=== PATIENT | female | born 1945 | race Caucasian/White ===

== ENCOUNTER → 2019-06-01 14:50 | Outpatient (BNVA) | payer MEDICARE, OTHER, SELFPAY | PROVIDERS: Family Provider Family Medicine; PCP Family Medicine; Visit Provider Psychiatry & Neurology Psychiatry | DX: F31.81 Bipolar II disorder (principal) | CPT/HCPCS: 99213 ==

== ENCOUNTER → 2019-06-21 16:20 | Outpatient (BNVA) | payer MEDICARE, OTHER, SELFPAY | PROVIDERS: Family Provider Family Medicine; PCP Family Medicine; Visit Provider Urology | DX: N39.0 Urinary tract infection, site not specified (principal) | CPT/HCPCS: 81001; 87086 ==

== ENCOUNTER 2019-08-09 14:04 | Outpatient (CLI) | payer MEDICARE, OTHER, SELFPAY ==
--- NOTE | 2019-08-09 15:00 | US_ITS ---
WS: [id number] RENAL ULTRASOUND REASON FOR EXAM: Gross hematuria TECHNIQUE: Grayscale and Doppler ultrasound examination of the kidneys. FINDINGS: Right kidney: Right kidney measures 11.1 cm x 6.3 cm x 5.6 cm. Cortex measured 1.73 cm Left kidney: Left kidney measures 10.5 cm x 5.3 cm x 5.9 cm. Cortex 1.86 cm The bladder show no gross abnormalities but was poorly distended. US/US renal BI* [id number] IMPRESSION: Normal kidneys and bladder.
== END 2019-08-09 14:05 | disposition home or self-care (01) ==
LOC: US 14:04
PROVIDERS: Family Provider Family Medicine; PCP Family Medicine; Visit Provider Urology
DX: R31.0 Gross hematuria (principal)
CPT/HCPCS: 76770; 81001

== ENCOUNTER 2019-08-10 03:45 | Emergency (ER) | payer MEDICARE, OTHER, SELFPAY ==
[2019-08-10 04:00] VITALS: BP 192/50; PULSE 62; RESP 18; TEMP 36.7; O2SAT 95; BMI 31.6
[2019-08-10 04:09] VITALS: PULSE 65
--- NOTE | 2019-08-10 04:12 | ED_ITS ---
Entered by Tamica Longoria, acting as scribe for Maximiliano Morris DO Aug 10, 2019 03:45 HPI - Extremity Problem General: Chief complaint: Extremity Injury, Lower Stated complaint: R LEG/HIP PAIN Time Seen by Provider: 08/10/19 04:12 Source: patient Mode of arrival: wheelchair Limitations: no limitations History of Present Illness: HPI Narrative: 74 yo f came to the er pov for right hip pain and right leg pain. Onset was last night. Pt said that she has had a hip replacement on both. Pt said that she has been doing therepy, she states that she twisted or pulled something. Pt said that she took a hydro @ 0200 this morning and that this happened about 2029 last night. Pt had the hip replacement about 2 years ago. MD Complaint: extremity pain Pain Consistency: constant Location: right Quality: stabbing Relieving factors: nothing Exacerbating factors: nothing, weight bearing and walking Associated symptoms: Reports no associated symptoms; Deny chest pain, fever(s) or rash Review of Systems General: Reports: other (negative unless marked) Const: Denies: fever Eyes: Denies: change in vision ENMT: Denies: throat pain Card: Denies: chest pain Resp: Denies: shortness of breath GI: Denies: abdominal pain or nausea : Denies: flank pain Musc: Denies: neck pain or back pain Skin/Breast: Denies: rash Neuro: Denies: headache Psych: Denies: anxiety Endo: Denies: excessive urination Gael/Lymph: Denies: easy bruising PFSH ED PFSH: Medical History (Updated 08/10/19 @ 04:46 by Maximiliano Morris DO) Acute cystitis Anemia, chronic disease Atherosclerotic heart disease of [place] coronary artery without angina pectoris Benign essential hypertension with target blood pressure below 140/90 Bipolar II disorder Dyslipidemia (high LDL; low HDL) Gross hematuria Heart palpitations Recurrent UTI Status post left heart catheterization Surgical History History of right knee surgery S/P appendectomy S/P hernia repair S/P hip replacement S/P hysterectomy Social History Smoking and tobacco status: never smoked Alcohol intake: never Adopted: No Caregiver/support person: No Lives independently: No Household members: spouse Marital status: Current occupational status: retired History of recent travel: No Physical Exam Const: COMMON NORMALS: no apparent distress GENERAL APPEARANCE: cooperative and comfortable ORIENTATION/CONSCIOUSNESS: Yes awake, Yes oriented to person, Yes oriented to place and Yes oriented to time HENMT: COMMON NORMALS: normocephalic, head/scalp atraumatic, hearing grossly normal bilaterally, external ears normal, EAC's normal, TM's normal bilaterally, nasal mucous membranes and turbinates normal, moist oral mucous membranes and oropharynx normal HEAD & SCALP: normocephalic and atraumatic NOSE: nasal mucous membranes and turbinates normal EXTERNAL EAR: Yes external ears normal EXTERNAL AUDITORY CANAL: EAC's normal TYMPANIC MEMBRANE: TM's normal bilaterally Eye: COMMON NORMALS: PERRL, EOMs intact bilaterally, conjunctivae normal and no scleral icterus CONJUNCTIVA: Yes conjunctivae normal PUPIL: Yes PERRL Neck/C-Spine: COMMON NORMALS: full ROM, no lymphadenopathy, supple and no JVD Lymph: LYMPHATIC: no lymphadenopathy noted and no lymphedema noted Resp: COMMON NORMALS: normal respiratory effort, no retractions, no use of accessory muscles and clear to auscultation bilaterally AUSCULTATION: clear to auscultation bilaterally Cardio: COMMON NORMALS: no JVD, regular rate, regular rhythm and no murmurs RATE: regular rate RHYTHM: regular rhythm GI: COMMON NORMALS: soft to palpation and no hepatosplenomegaly AUSCULTATION: Yes normoactive bowel sounds PALPATION: Yes soft, No tender, No guarding and Yes no hepatosplenomegaly Extremity: COMMON NORMALS: normal to inspection, normal capillary refill, no clubbing, cyanosis or edema, no calf tenderness and no pedal edema Neuro: SENSORIUM/ORIENTATION: Yes oriented to person, Yes oriented to place and Yes oriented to time Skin: COMMON NORMALS: no rashes or lesions noted GENERAL SKIN EXAM: no rashes or lesions noted Course Vital Signs: Vital signs: Vital Signs Temperature 98.1 F 08/10/19 04:00 Pulse Rate 57 L 08/10/19 05:12 Respiratory Rate 18 08/10/19 05:12 Blood Pressure 187/59 08/10/19 05:12 Pulse Oximetry 96 08/10/19 05:12 MDM - Extremity (Nontraumatic) MDM Narrative: Medical decision making narrative: X-ray reviewed with patient. No evidence of fracture. Will discharge home follow-up Imaging Data^: Xray Ortho: Radiologist's impression: XR hip RT 2-3V wo/w pel* [id number] REASON FOR EXAM: pain FINDINGS: Total hip replacement on the right side the prosthesis in stem are seen in good position. The ilium, ischium, and pubis were normal. XR/XR hip RT 2-3V wo/w pel* [id number] IMPRESSION: Total hip replacement on the right satisfactory alignment. Dictated By:Declan Del Toro DO Discharge Plan Discharge Patient Disposition: Home, Self-Care Clinical Impression: Acute hip pain Condition: Stable Prescriptions: No Action omeprazole 40 mg capsule,delayed release(DR/EC) 40 mg PO BID RF: 0 ascorbic acid (vitamin C) 250 mg tablet 1 gm PO DAILY RF: 0 furosemide [Lasix] 20 mg tablet 20 mg PO QAM RF: 0 Tresiba FlexTouch U-100 100 unit/mL (3 mL) insulin pen 30 unit SUBCUT BID RF: 0 ondansetron HCl [Zofran] 4 mg tablet 4 mg PO ONCE PRN (Reason: nausea and vomiting) RF: 0 dicyclomine 10 mg capsule 10 mg PO QID RF: 0 metoprolol tartrate 25 mg tablet 25 mg PO BID RF: 0 Senokot Extra Strength 17.2 mg tablet 17.2 mg PO BID RF: 0 aspirin [Aspir-81] 81 mg tablet,delayed release (DR/EC) 81 mg PO DAILY RF: 0 cholecalciferol (vitamin D3) 1,000 unit capsule 1,000 unit PO DAILY RF: 0 clopidogrel [Plavix] 75 mg tablet 75 mg PO DAILY RF: 0 cranberry 500 mg capsule 500 mg PO DAILY RF: 0 docusate sodium [Colace] 100 mg capsule 100 mg PO DAILY RF: 0 isosorbide dinitrate 40 mg tablet 60 mg PO BID RF: 0 Lactobacillus acidophilus [Acidophilus] Capsule 100 mmu cells PO DAILY RF: 0 loratadine [Allergy Relief (loratadine)] 10 mg tablet 10 mg PO DAILY RF: 0 losartan 25 mg tablet 25 mg PO DAILY RF: 0 magnesium oxide 400 mg (241.3 mg magnesium) tablet 400 mg PO DAILY RF: 0 potassium chloride [Klor-Con 10] 10 mEq tablet extended release 10 meq PO DAILY RF: 0 vitamin E mixed 1,000 unit capsule 1,000 unit PO DAILY RF: 0 risperidone [Risperdal] 1 mg tablet 1 mg PO BID Qty: 60 RF: 2 citalopram 40 mg tablet 40 mg PO ONCE Qty: 30 RF: 5 ferrous sulfate 325 mg (65 mg iron) tablet 325 mg PO QDAY RF: 0 ciprofloxacin HCl 500 mg tablet 500 mg PO BID Qty: 20 RF: 0 atorvastatin [Lipitor] 40 mg tablet 40 mg PO DAILY Qty: 90 RF: 3 Referrals: Arabella Orta MD [Primary Care Provider] - Discharge Diet: Usual diet Discharge Activity: Increase activity as tolerated Activity Restrictions/Additional Instructions: Activity as tolerated. Follow-up with your primary care doctor for referral to orthopedics. Use previously prescribed pain medications. Discharge Date/Time: 08/10/19 05:14 Coding Level of Care Code ED Handle Assembler for g Fwd Exam Comprehensive The documentation recorded by the Von maciel Stephanie Lyn, accurately reflects the service I personally performed and the decisions made by Arturo andrade Curtis L, DO Aug 10, 2019 03:45
--- NOTE | 2019-08-10 04:18 | XR_ITS ---
WS: [id number] XR hip RT 2-3V wo/w pel* [id number] REASON FOR EXAM: pain FINDINGS: Total hip replacement on the right side the prosthesis in stem are seen in good position. The ilium, ischium, and pubis were normal. XR/XR hip RT 2-3V wo/w pel* [id number] IMPRESSION: Total hip replacement on the right satisfactory alignment.
[2019-08-10 05:12] VITALS: BP 187/59; PULSE 57; RESP 18; O2SAT 96
== END 2019-08-10 05:14 | disposition home or self-care (01) ==
PROVIDERS: Emergency Provider Family Medicine; Family Provider Family Medicine; PCP Family Medicine
DX: M79.604 Pain in right leg (principal); I25.10 Atherosclerotic heart disease of native coronary artery without angina pectoris; I10 Essential (primary) hypertension; E78.5 Hyperlipidemia, unspecified; Z96.641 Presence of right artificial hip joint; Z96.642 Presence of left artificial hip joint; Z79.82 Long term (current) use of aspirin
CPT/HCPCS: 12345; 73502; 99281; 99282

== ENCOUNTER → 2019-08-24 07:08 | Outpatient (BNVA) | payer MEDICARE, OTHER, SELFPAY | PROVIDERS: Family Provider Family Medicine; PCP Family Medicine; Visit Provider Psychiatry & Neurology Psychiatry | DX: F31.81 Bipolar II disorder (principal) | CPT/HCPCS: 99213 ==

== ENCOUNTER → 2019-10-26 08:10 | Outpatient (BNVA) | payer MEDICARE, OTHER, SELFPAY | PROVIDERS: Family Provider Family Medicine; PCP Family Medicine; Visit Provider Psychiatry & Neurology Psychiatry | DX: F31.81 Bipolar II disorder (principal) | CPT/HCPCS: 99213 ==

== ENCOUNTER → 2019-11-15 14:55 | Outpatient (BNVA) | payer MEDICARE, OTHER, SELFPAY | PROVIDERS: Family Provider Family Medicine; PCP Family Medicine; Visit Provider Internal Medicine Cardiovascular Disease | DX: D63.8 Anemia in other chronic diseases classified elsewhere (principal); Z79.01 Long term (current) use of anticoagulants; R07.89 Other chest pain; I25.10 Atherosclerotic heart disease of native coronary artery without angina pectoris; R00.2 Palpitations | CPT/HCPCS: 80048; 85025 ==

== ENCOUNTER 2019-11-27 12:42 | Outpatient (CLI) | payer MEDICARE, OTHER, SELFPAY ==
--- NOTE | 2019-11-27 12:59 | MR_ITS ---
WS: [id number] MRI BRAIN WITH AND WITHOUT CONTRAST HISTORY: BENIGN NEOPLASM OF CEREBRAL MENINGES COMPARISON: 12/06/2018, 11/25/2017 and 11/18/2016 TECHNIQUE: Multiplanar imaging performed through the brain with Prohance 17 ml's IV. No acute infarcts are seen. Cooper-white matter differentiation is well preserved. No susceptibility artifacts or prior lacunar infarcts. Ventricles and extra-axial spaces are normal. Clivus and pituitary gland are normal. Visualized posterior fossa and brainstem are also normal. Intensely enhancing mass involving the dura of the inferior RIGHT frontal region. Nodule measures 6 x 5 mm with a dural tail. There is no adjacent edema. No enlargement. No additional masses. Dural venous sinuses are normal. Paranasal sinuses: Well aerated with no significant disease. Mastoid air cells: Normal. Calvarium and scalp: Normal. MR/MR head wo/w con [id number] IMPRESSION: 1. 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 Long-ter m stability. 2. No additional masses. 3. No significant chronic white matter disease.
== END 2019-11-27 12:43 | disposition home or self-care (01) ==
LOC: RADSHAW 12:47
PROVIDERS: Family Provider Family Medicine; PCP Family Medicine; Visit Provider Specialist
DX: D32.0 Benign neoplasm of cerebral meninges (principal)
CPT/HCPCS: 70553; A9579

== ENCOUNTER 2019-12-05 08:04 | Outpatient (CLI) | payer MEDICARE, OTHER, SELFPAY ==
--- NOTE | 2019-12-05 08:18 | ECG_ITS ---
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 Interpretive Statements NAME OF STUDY: LEXISCAN SESTAMIBI STRESS TEST INDICATION: Palpitations, PROCEDURE: At the baseline, the EKG revealed possible sinus bradycardia with a rate of 56/min. Because of the heavy baseline artifacts, further interpretation is not possible. The baseline blood pressure was 137/67 mm Hg with a heart rate of 56 beats/min. Lexiscan was infused over a period of 20 seconds. A total of 0.4 milligrams of Lexiscan was infused. The stress phase was continued for a total of 5 minutes. Heart rate at the end of the stress phase was 70 with a blood pressure 158/55. The EKG at the peak infusion revealed no significant changes. Sestamibi was injected 20 seconds after the Lexiscan infusion. Blood pressure at the end of the recovery phase was 145/99 with a heart rate of 69 per minute. CONCLUSION: 1. No significant EKG changes with the LexiScan infusion 2. No LexiScan induced chest pain or cardiac arrhythmia 3. Normal blood pressure and heart rate response 4. Sestamibi/sestamibi perfusion scan pending; see separate report. Electronically Signed On 12-08-2019 11:16:27 CDT by Gilma Cai M.D. [id number]
--- NOTE | 2019-12-05 08:18 | NMCV_ITS ---
NM bryon perf SPECT r/s* [id number] Brandi Berg Age: 74 Gender: F : 1945 Exam Date: 12/05/2019 09:13 Ordering Phys: Gilma Cai MD ([email or web address]) Technologist: VIDHI Stone Exam Location: [facility] Indications: PALPITATIONS STRESS TEST Please see separate stress test report in [facility] for full findings IMAGE PROTOCOL Rest/Stress 1 Lexiscan Day Radiopharmaceutical Dose (mCi) Administration Site Administered by Rest: Tc-99m 11.0 IV VIDHI Sandra Sestamibi Stress:Tc-99m 32.5 IV VIDHI Sandra Sestamibi Rest: 05-Dec-2019 60 Discovery 630 Stress: 05-Dec-2019 30 Discovery 630 0.4mg Lexiscan. Supine position only as patient was unable to lay prone. SPECT RESULTS Technical Quality: Good Raw Data Analysis: Breast attenuation, Subdiaphragmatic activity Image Corrections: No attenuation or motion correction applied Summed Stress Score: 1 Summed Rest Score: 2 Summed Difference Score: 0 PERFUSION FINDINGS Patchy areas of slightly decreased tracer uptake were noted in the anterior wall and inferior wall regions. No significant reversibility was noted in these regions. FUNCTIONAL RESULTS (calculated via Gated SPECT) Stress Image LV EF (%): 60 Stress EDV (mL):98 TID: 0.97 Stress ESV (mL):39 FUNCTIONAL FINDINGS: Segmental wall motion analysis revealed no gross wall motion abnormalities. IMPRESSIONS 1. Myocardial perfusion imaging revealing patchy areas of persistent decreased uptake in the anterior wall and inferior wall regions, suggestive of myocardial scarring versus attenuation artifact. 2. Normal LV ejection fraction of 60%. 3. LV wall motion analysis revealing no gross wall motion normalities. 4. Normal LV volume. No significant coronary ischemia, based on the above findings Dr Gilma Cai MD [facility] (Electronically Signed) Final Date: 05 December 2019 16:12 S
[2019-12-05 08:31] VITALS: BMI 33.1
[2019-12-05] MEDS: regadenoson 0.4 Mg/5 ml Syringe IVP (09:59)
[2019-12-05 10:15] VITALS: BP 152/52; PULSE 68
== END 2019-12-05 08:05 | disposition home or self-care (01) ==
LOC: CDL 08:05
PROVIDERS: Family Provider Family Medicine; PCP Family Medicine; Visit Provider Internal Medicine Cardiovascular Disease
DX: R00.2 Palpitations (principal); I25.10 Atherosclerotic heart disease of native coronary artery without angina pectoris
CPT/HCPCS: 78452; 93017; A9500; J2785

== ENCOUNTER 2019-12-26 13:44 | Outpatient (CLI) | payer MEDICARE, OTHER, SELFPAY ==
--- NOTE | 2019-12-26 13:53 | MM_ITS ---
WS: [id number] BILATERAL SCREENING DIGITAL MAMMOGRAM WITH CAD HISTORY: SCREENING COMPARISON: 11/15/2018 and 11/02/2017 Bilateral CC and MLO views submitted. Computer aided detection analyzed. Breast composition: There are scattered areas of fibroglandular density. No suspicious masses, microc alcifications or architectural distortion. Bilateral vascular calcifications. MM/[place] [id number] IMPRESSION: BI-RADS: 2-Benign FOLLOW UP: 1 Year Follow-up
== END 2019-12-26 13:45 | disposition home or self-care (01) ==
LOC: RADSHAW 13:51
PROVIDERS: PCP Family Medicine; Visit Provider Family Medicine
DX: Z12.31 Encounter for screening mammogram for malignant neoplasm of breast (principal)
CPT/HCPCS: 77067

== ENCOUNTER → 2020-01-03 13:47 | Outpatient (BNVA) | payer MEDICARE, OTHER, SELFPAY | PROVIDERS: PCP Family Medicine; Visit Provider Licensed Practical Nurse | DX: M51.17 Intervertebral disc disorders with radiculopathy, lumbosacral region (principal); G62.89 Other specified polyneuropathies; D32.0 Benign neoplasm of cerebral meninges | CPT/HCPCS: 99214 ==

== ENCOUNTER → 2020-01-18 08:14 | Outpatient (BNVA) | payer MEDICARE, OTHER, SELFPAY | PROVIDERS: PCP Family Medicine; Visit Provider Psychiatry & Neurology Psychiatry | DX: F31.81 Bipolar II disorder (principal); F33.2 Major depressive disorder, recurrent severe without psychotic features | CPT/HCPCS: 99213 ==

== ENCOUNTER → 2020-02-13 15:47 | Outpatient (BNVA) | payer MEDICARE, OTHER, SELFPAY | PROVIDERS: PCP Family Medicine; Visit Provider Nurse Practitioner Family | DX: N39.0 Urinary tract infection, site not specified (principal) | CPT/HCPCS: 80053; 81001; 87086; 87186 ==

== ENCOUNTER → 2020-02-22 07:36 | Outpatient (BNVA) | payer MEDICARE, OTHER, SELFPAY | PROVIDERS: PCP Family Medicine; Visit Provider Psychiatry & Neurology Psychiatry | DX: F31.81 Bipolar II disorder (principal) | CPT/HCPCS: 99214 ==

== ENCOUNTER → 2020-03-14 08:32 | Outpatient (BNVA) | payer MEDICARE, OTHER, SELFPAY | PROVIDERS: PCP Family Medicine; Visit Provider Psychiatry & Neurology Psychiatry | DX: F31.81 Bipolar II disorder (principal); G25.89 Other specified extrapyramidal and movement disorders; T50.905A Adverse effect of unspecified drugs, medicaments and biological substances, initial encounter | CPT/HCPCS: 99213 ==

== ENCOUNTER → 2020-03-21 09:21 | Outpatient (BNVA) | payer MEDICARE, OTHER, SELFPAY | PROVIDERS: PCP Family Medicine; Visit Provider Psychiatry & Neurology Psychiatry | DX: F31.81 Bipolar II disorder (principal); G25.89 Other specified extrapyramidal and movement disorders; T50.905A Adverse effect of unspecified drugs, medicaments and biological substances, initial encounter | CPT/HCPCS: 99213 ==

== ENCOUNTER 2020-03-25 00:58 | Emergency (ER) | payer MEDICARE, OTHER, SELFPAY ==
[2020-03-25] VITALS (7 sets, daily range): BP systolic 154–217; BP diastolic 59–75; PULSE 62–87; RESP 17–20; TEMP 37.3; O2SAT 94–99; BMI 32.4
--- NOTE | 2020-03-25 01:05 | CTR_ITS ---
PROCEDURE INFORMATION: Exam: CT Head Without Contrast Exam date and time: 03/25/2020 1:14 AM Age: 74 years old Clinical indication: Injury or trauma; Fall; Blunt trauma (contusions or hematomas); Without loss of consciousness TECHNIQUE: Imaging protocol: Computed tomography of the head without contrast. Radiation optimization: All CT scans at this facility use at least one of these dose optimization techniques: automated exposure control; mA and/or kV adjustment per patient size (includes targeted exams where dose is matched to clinical indication); or iterative reconstruction. COMPARISON: MR head wo/w con [id number] 11/27/2019 1:31 PM RADIATION DOSE METRICS: Total DLP (mGy-cm): 729.4 FINDINGS: Brain: Normal. No hemorrhage. Unremarkable white matter. No mass effect. Cerebral ventricles: No ventriculomegaly. Bones/joints: Unremarkable. No acute fracture. Paranasal sinuses: Visualized sinuses are unremarkable. No fluid levels. Mastoid air cells: Visualized mastoid air cells are well aerated. Soft tissues: Unremarkable. CT/CT head wo con* [id number] IMPRESSION: No acute intracranial abnormality. Radiation Dose CTDIVOL = (mGy): DLP = 729.4 (mGy-cm)
--- NOTE | 2020-03-25 01:05 | CTR_ITS ---
PROCEDURE INFORMATION: Exam: CT Thoracic Spine Without Contrast Exam date and time: 03/25/2020 1:14 AM Age: 74 years old Clinical indication: Injury or trauma; Fall; Blunt trauma (contusions or hematomas) TECHNIQUE: Imaging protocol: Computed tomography images of the thoracic spine without contrast. Radiation optimization: All CT scans at this facility use at least one of these dose optimization techniques: automated exposure control; mA and/or kV adjustment per patient size (includes targeted exams where dose is matched to clinical indication); or iterative reconstruction. COMPARISON: No relevant prior studies available. RADIATION DOSE METRICS: Total DLP (mGy-cm): 1965.81 FINDINGS: Vertebrae: No acute fracture. Normal alignment. Discs/Spinal canal/Neural foramina: There is a diffuse loss of disc height seen within the thoracic spine compatible with degenerative disc disease. Soft tissues: Unremarkable. CT/CT thoracic spin wo con* [id number] IMPRESSION: There are no acute osseous findings. Radiation Dose CTDIVOL = (mGy): DLP = 1965.81 (mGy-cm)
--- NOTE | 2020-03-25 01:05 | CTR_ITS ---
PROCEDURE INFORMATION: Exam: CT Cervical Spine Without Contrast Exam date and time: 03/25/2020 1:14 AM Age: 74 years old Clinical indication: Injury or trauma; Fall; Blunt trauma TECHNIQUE: Imaging protocol: Computed tomography images of the cervical spine without contrast. Radiation optimization: All CT scans at this facility use at least one of these dose optimization techniques: automated exposure control; mA and/or kV adjustment per patient size (includes targeted exams where dose is matched to clinical indication); or iterative reconstruction. COMPARISON: US Soft Tissue Head Neck [id number] 07/01/2018 4:38 PM RADIATION DOSE METRICS: Total DLP (mGy-cm): 631.52 FINDINGS: Vertebrae: No acute fracture. Normal alignment. Osteophytes are seen at multiple levels. The disc height at C6-C7 is reduced. Soft tissues: Unremarkable. Lungs: Lung apices are normal. CT/CT cervical spin wo con* [id number] IMPRESSION: No acute findings. Multilevel degenerative changes are present. Radiation Dose CTDIVOL = (mGy): DLP = 631.52 (mGy-cm)
[2020-03-25] MEDS: fentaNYL 50 mcg/mL INJ 2mL 100 MCG IVP (01:45)
--- NOTE | 2020-03-25 02:56 | W.ED.FALL ---
HPI - Fall General: Chief Complaint: Fall Stated Complaint: FALL WITH BACK PAIN Time Seen by Provider: 03/25/20 01:00 History of Present Illness: HPI Narrative: 74-year-old lady presents with a mechanical fall at home causing back pain. She complains mainly of midthoracic pain, with some neck and head pain. She states that she turned around quickly, and fell back, sitting down, and falling back against a chair. This was evidently from a standing position. She remembers the entire event. No vomiting. She does complain of mild headache. The fall evidently happened around 7 PM. MD complaint: fall Onset (ago): hour(s) Fall from: standing Fall witnessed: yes, by family Place fall occurred: home Loss of consciousness: None Prolonged down time: no Symptoms prior to fall: none Context: tripped/slipped Location of injury: head, neck and back Severity: severe Quality: spasming Associated symptoms-after fall: Reports headache(s); Denies abdominal pain, chest pain, confusion, lightheadedness or short of breath Review of Systems Const: Denies: fever(s) or chills Card: Denies: chest pain or lightheadedness GI: Denies: abdominal pain Neuro: Reports: headache(s); Denies: confusion PFSH ED PFSH: Medical History (Updated 03/25/20 @ 03:26 by Monty Briseno DO) Acute cystitis Anemia, chronic disease 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 Left axis deviation. Normal MS and QRS duration. Intervertebral disc disorder with radiculopathy of lumbosacral region Recurrent UTI Status post left heart catheterization Surgical History History of coronary artery stent placement History of right knee surgery S/P appendectomy S/P hernia repair S/P hip replacement S/P hysterectomy Family History Family/Other Diabetes Other Cancer Social History Smoking and tobacco status: never smoked Alcohol intake: never Household members: spouse Marital status: Current occupational status: retired History of recent travel: No Physical Exam Const: GENERAL APPEARANCE: well developed ORIENTATION/CONSCIOUSNESS: Yes oriented to person, Yes oriented to place and Yes oriented to time HENMT: COMMON NORMALS: normocephalic, external ears normal and Normal external nose present HEAD & SCALP: normocephalic FACE & SINUS: normal facial exam NOSE: Normal external nose present and No nasal discharge present EXTERNAL EAR: Yes external ears normal MOUTH: tongue normal TEETH & GINGIVA: no abnormal tooth and associated gingiva THROAT: posterior oropharynx normal; no peritonsillar mass Eye: COMMON NORMALS: Equal, round and reactive pupils present, EOMs intact bilaterally and conjunctivae normal EYELID: eyelids normal CONJUNCTIVA: Yes conjunctivae normal PUPIL: Yes Equal, round and reactive pupils present Neck/C-Spine: GENERAL: No tracheal deviation CERVICAL SPINE: Yes normal cervical lordosis and Yes Cervical spine tenderness Chest: COMMONS NORMALS: normal inspection of the chest CHEST: No tenderness Resp: COMMON NORMALS: clear to auscultation bilaterally EFFORT & INSPECTION: No tachypneic, No respiratory distress, No retractions, No uses accessory muscles and No tracheal deviation AUSCULTATION: clear to auscultation bilaterally, no rhonchi, no wheezes and lung sounds not diminished Cardio: COMMON NORMALS: regular rate and regular rhythm RATE: regular rate RHYTHM: regular rhythm HEART SOUNDS: no murmurs PERIPHERAL PULSES: radial pulses present GI: INSPECTION: No abdominal distension AUSCULTATION: No Hyperactive bowel sounds present and No Hypoactive bowel sounds present PALPATION: No Guarding due to palpation present (GI) and No Rigid due to palpation PERCUSSION: no dullness to percussion and no tympanic to percussion Back/Pelvis: COMMON NORMALS: thoracic and lumbar spine normal to inspection THORACIC SPINE/UPPER BACK: Yes thoracic spinal tenderness LUMBAR SPINE/LOWER BACK: Yes normal to inspection Neuro: SENSORIUM/ORIENTATION: Yes oriented to person, Yes oriented to place and Yes oriented to time Psych: COMMON NORMALS: mental status grossly normal Skin: COMMON NORMALS: no rashes or lesions noted GENERAL SKIN EXAM: no rashes or lesions noted Course Vital Signs: Vital signs: Vital Signs Temperature 99.1 F 03/25/20 01:00 Pulse Rate 87 03/25/20 03:43 Respiratory Rate 17 11/02/20 03:43 Blood Pressure 155/62 03/25/20 03:43 Pulse Oximetry 95 03/25/20 03:43 MDM - Fall MDM Narrative: Medical decision making narrative: CT s show some degenerative changes the cervical spine thoracic spine diffusely. There is no intracranial hemorrhage or swelling. No fractures. Pain is controlled. She will be allowed home Discharge Plan Discharge Patient Disposition: Home Clinical Impression: Contusion of bilateral back wall of thorax, initial encounter Concussion without loss of consciousness Qualifiers: Encounter type: initial encounter Qualified Code(s): S06.0X0A - Concussion without loss of consciousness, initial encounter Condition: Stable Prescriptions: New Percocet 5-325 mg tablet 1 tab PO Q6H PRN (Reason: pain) Qty: 7 RF: 0 No Action omeprazole 40 mg capsule,delayed release(DR/EC) 40 mg PO BID RF: 0 ascorbic acid (vitamin C) 250 mg tablet 1 gm PO DAILY RF: 0 ondansetron HCl [Zofran] 4 mg tablet 4 mg PO ONCE PRN (Reason: nausea and vomiting) RF: 0 dicyclomine 10 mg capsule 10 mg PO QID RF: 0 metoprolol tartrate 25 mg tablet 25 mg PO BID RF: 0 Senokot Extra Strength 17.2 mg tablet 17.2 mg PO BID RF: 0 furosemide [Lasix] 20 mg tablet 20 mg PO QAM PRNRF: 0 hydrocodone-acetaminophen 7.5-300 mg tablet 1 tab PO QID PRNRF: 0 insulin asp prt-insulin aspart [Novolog Mix 70-30 U-100 Insuln] 100 unit/mL (70-30) solution 20 unit SUBCUT BID RF: 0 aspirin [Aspir-81] 81 mg tablet,delayed release (DR/EC) 81 mg PO DAILY RF: 0 cholecalciferol (vitamin D3) 1,000 unit capsule 1,000 unit PO DAILY RF: 0 cranberry 500 mg capsule 500 mg PO DAILY RF: 0 Lactobacillus acidophilus [Acidophilus] Capsule 100 mmu cells PO DAILY RF: 0 magnesium oxide 400 mg (241.3 mg magnesium) tablet 400 mg PO DAILY RF: 0 vitamin E mixed 1,000 unit capsule 1,000 unit PO DAILY RF: 0 potassium chloride [Klor-Con 10] 10 mEq tablet extended release 10 meq PO DAILY PRNRF: 0 docusate sodium [Colace] 100 mg capsule 100 mg PO BID RF: 0 isosorbide dinitrate 40 mg tablet 60 mg PO DAILY RF: 0 loratadine [Allergy Relief (loratadine)] 10 mg tablet 10 mg PO DAILY PRNRF: 0 ferrous sulfate 325 mg (65 mg iron) tablet 325 mg PO QDAY RF: 0 ciprofloxacin HCl 500 mg tablet 500 mg PO BID Qty: 20 RF: 0 citalopram 40 mg tablet 40 mg PO ONCE Qty: 30 RF: 5 quetiapine [Seroquel] 50 mg tablet 50 mg PO .HS RF: 0 atorvastatin [Lipitor] 40 mg tablet 40 mg PO DAILY Qty: 90 RF: 3 clopidogrel [Plavix] 75 mg tablet 75 mg PO DAILY Qty: 90 RF: 3 losartan 50 mg tablet 50 mg PO DAILY Qty: 90 RF: 3 Discharge Orders: Discharge Order (Routine); Ordered 03/25/20 Ordered By: Monty Briseno Referrals: Arabella Orta MD [Primary Care Provider] - 4-7 days Discharge Diet: Advance as tolerated Discharge Activity: Increase activity as tolerated Patient Instructions: Concussion (ED), Contusion in Adults (ED) Activity Restrictions/Additional Instructions: Return for worsening pain despite treatment, mental status changes, vomiting, fever, other concerning symptoms. 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
[2020-03-25] MEDS: fentaNYL 50 mcg/mL INJ 2mL IVP (03:32)
[2020-03-25] MEDS: oxyCODONE-APAP 5-325 mg Tablet 2 TAB PO (03:32)
== END 2020-03-25 04:04 | disposition home or self-care (01) ==
PROVIDERS: Emergency Provider Emergency Medicine; PCP Family Medicine
DX: S20.223A Contusion of bilateral back wall of thorax, initial encounter (principal); S06.0X0A Concussion without loss of consciousness, initial encounter; Z79.82 Long term (current) use of aspirin; Z79.02 Long term (current) use of antithrombotics/antiplatelets; Z79.4 Long term (current) use of insulin; I10 Essential (primary) hypertension; E78.5 Hyperlipidemia, unspecified; W19.XXXA Unspecified fall, initial encounter
CPT/HCPCS: 12345; 70450; 72125; 72128; 96374; 96376; 99282; 99283; J3010

== ENCOUNTER → 2020-04-01 07:37 | Outpatient (BNVA) | payer MEDICARE, OTHER, SELFPAY | PROVIDERS: PCP Family Medicine; Visit Provider Psychiatry & Neurology Psychiatry | DX: F31.81 Bipolar II disorder (principal) | CPT/HCPCS: 99214 ==

== ENCOUNTER → 2020-04-11 08:27 | Outpatient (BNVA) | payer MEDICARE, OTHER, SELFPAY | PROVIDERS: PCP Family Medicine; Visit Provider Psychiatry & Neurology Psychiatry | DX: F31.81 Bipolar II disorder (principal) | CPT/HCPCS: 99213 ==

== ENCOUNTER → 2020-05-22 07:38 | Outpatient (BNVA) | payer MEDICARE, OTHER, SELFPAY | PROVIDERS: PCP Family Medicine; Visit Provider Psychiatry & Neurology Psychiatry | DX: F31.81 Bipolar II disorder (principal); F41.0 Panic disorder [episodic paroxysmal anxiety] | CPT/HCPCS: 99214 ==

== ENCOUNTER → 2020-06-12 07:47 | Outpatient (BNVA) | payer MEDICARE, OTHER, SELFPAY | PROVIDERS: PCP Family Medicine; Visit Provider Psychiatry & Neurology Psychiatry | DX: F31.81 Bipolar II disorder (principal); F41.0 Panic disorder [episodic paroxysmal anxiety] | CPT/HCPCS: 99214 ==

== ENCOUNTER 2020-07-22 15:27 | Outpatient (CLI) | payer MEDICARE, OTHER, SELFPAY ==
--- NOTE | 2020-07-22 15:45 | XRR_ITS ---
PROCEDURE INFORMATION: Exam: XR Abdomen Exam date and time: 07/22/2020 4:48 PM Age: 75 years old Clinical indication: Constipation; Abdominal pain; Generalized; Prior surgery; Surgery type: Hysterectomy , gallbladder, appendectomy; Additional info: Abd pain, constipation TECHNIQUE: Imaging protocol: XR of the abdomen. Views: Frontal supine view of the abdomen. 1 View. COMPARISON: CT Abdomen/Pelvis Renal [id number] 05/09/2019 1:11 PM FINDINGS: Gastrointestinal tract: Bowel gas pattern is unremarkable. Organs: There are multiple calcifications the in the liver and spleen as shown on prior CT scan. Bones/joints: Degenerative changes are present in the lower lumbar spine. There are bilateral hip replacements. XR/XR KUB 19655 IMPRESSION: No acute findings
== END 2020-07-22 15:28 | disposition home or self-care (01) ==
PROVIDERS: PCP Family Medicine; Visit Provider Family Medicine
DX: R10.9 Unspecified abdominal pain (principal); K59.00 Constipation, unspecified
CPT/HCPCS: 74018

== ENCOUNTER → 2020-08-14 08:20 | Outpatient (BNVA) | payer MEDICARE, OTHER, SELFPAY | PROVIDERS: PCP Family Medicine; Visit Provider Psychiatry & Neurology Psychiatry | DX: F31.81 Bipolar II disorder (principal); F41.0 Panic disorder [episodic paroxysmal anxiety] | CPT/HCPCS: 99214 ==

== ENCOUNTER → 2020-09-06 12:56 | Outpatient (BNVA) | payer MEDICARE, OTHER, SELFPAY | PROVIDERS: PCP Family Medicine; Visit Provider Surgery | DX: Z01.812 Encounter for preprocedural laboratory examination (principal); Z20.822 Contact with and (suspected) exposure to COVID-19 | CPT/HCPCS: 87635 ==

== ENCOUNTER 2020-09-10 07:14 | Day surgery (SDC) | payer MEDICARE, OTHER, SELFPAY ==
[2020-09-06 15:17] VITALS: BMI 32.8
--- NOTE | 2020-09-10 07:28 | P.ANESASSM_ITS ---
Pre-Anesthetic Assessment Pre-Anesthetic Assessment: Height/Weight: Height 1.65 m Weight 89.358 kg Proposed Procedure: Operation Date: 09/10/20 09:00 Proposed Procedures p EGD/colon 15159 02019 R10.9 K59.00(Not Applicable) - Brice Falcon MD s Colonoscopy(Not Applicable) - Brice Falcon MD Was Beta Tracey taken within 24 hours: Yes Was Clonidine taken within 24 hours: N/A Social: Social History: No alcohol and No tobacco Exam: Pre-Anes Outpt Exam: alert, oriented x 3, clear to auscultation bilaterally and regular rate & rhythm Airway: Submandibular: WNL Cervical ROM: WNL MP: 2 Dentition: Full CV/HEM: CV/HEM: Anemia and CAD (Stent) GI: GI: GERD Metabolic: Metabolic: DM Musc/skel: Musc/skel: Lower Back Pain Neuropsych: Neuropsych: Anxiety and Bipolar Anesthetic Plan: ASA status: 3 Anesthesia: MAC Risk of > 500 ml blood loss (7ml/kg in children): No PFSH Anesthesia PFSH: Medical History (Updated 05/22/20 @ 14:22 by Raj Montoya DO) Acute cystitis Anemia, chronic disease 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 Left axis deviation. Normal MT and QRS duration. Intervertebral disc disorder with radiculopathy of lumbosacral region Recurrent UTI Status post left heart catheterization Surgical History (Updated 08/26/20 @ 09:55 by Brice Falcon MD) History of colonoscopy (~2018) History of coronary artery stent placement History of right knee surgery S/P appendectomy S/P hernia repair S/P hip replacement S/P hysterectomy Family History Family/Other Diabetes Other Cancer Social History Smoking and tobacco status: never smoked Alcohol intake: never Household members: spouse Marital status: Current occupational status: retired History of recent travel: No Data Anesthesia Cardiac Studies: No Data to Display
[2020-09-10 07:46] VITALS: BP 108/68; PULSE 68; RESP 18; TEMP 36.1; O2SAT 96
[2020-09-10] MEDS: sodium chloride 0.9% 1,000 ML 30 ML IV (08:00)
[2020-09-10 08:15] LABS: Glucose Point of Care 103 mg/dL (70-110)
--- NOTE | 2020-09-10 08:27 | W.PM.OPSUD ---
Surgery/Procedure H&P Update DATE OF PROCEDURE: September 10, 2020 DATE H&P PERFORMED: 08/26/20 H&P UPDATE INFORMATION: I have reviewed H&P completed within last 30 days, I have examined patient prior to procedure and No changes to prior documentation PREOP DIAGNOSIS: panendoscopy PLANNED PROCEDURE: Operation Date: 09/10/20 09:00 Proposed Procedures p EGD/colon 02737 10263 R10.9 K59.00(Not Applicable) - Brice Falcon MD s Colonoscopy(Not Applicable) - Brice Falcon MD
[2020-09-10] MEDS: ondansetron 2 mg/ML SDV 2 mL 4 MG IVP (08:35)
[2020-09-10 10:10] VITALS: BP 162/64; PULSE 69; RESP 16; TEMP 37.2; O2SAT 100
--- NOTE | 2020-09-10 10:16 | P.ANESASSM_ITS ---
Pre-Anesthetic Assessment Pre-Anesthetic Assessment: Height/Weight: Height 1.65 m Weight 89.358 kg Temp Pulse Resp BP Pulse Ox 98.9 F 69 16 162/64 100 09/10/20 10:10 09/10/20 10:10 09/10/20 10:10 09/10/20 10:10 09/10/20 10:10 Preop Diagnosis: panendoscopy Proposed Procedure: Operation Date: 09/10/20 09:00 Proposed Procedures p EGD/colon 03392 53597 R10.9 K59.00(Not Applicable) - Brice Falcon MD s Colonoscopy(Not Applicable) - Brice Falcon MD Last intake: Intake Last Liquid Date 09/09/20 Last Liquid Time 23:30 Last Solid Date 09/08/20 Meds/Allergies Current Medications: Current Medications Generic Name Dose Route Start Last Admin Trade Name Freq PRN Reason Stop Dose Admin Ondansetron HCl 4 mg 09/10/20 07:36 09/10/20 08:35 Ondansetron 2 Mg /Ml Sdv 2 Ml IVP 4 mg Q15M PRN Administration Nausea/Vomiting P ACU PHASE II PFSH Anesthesia PFSH: Medical History (Updated 05/22/20 @ 14:22 by Raj Montoya DO) Acute cystitis Anemia, chronic disease 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 Left axis deviation. Normal [place] and QRS duration. Intervertebral disc disorder with radiculopathy of lumbosacral region Recurrent UTI Status post left heart catheterization Surgical History (Updated 08/26/20 @ 09:55 by Brice Falcon MD) History of colonoscopy (~2018) History of coronary artery stent placement History of right knee surgery S/P appendectomy S/P hernia repair S/P hip replacement S/P hysterectomy Family History Family/Other Diabetes Other Cancer Social History Smoking and tobacco status: never smoked Alcohol intake: never Household members: spouse Marital status: Current occupational status: retired History of recent travel: No Data Anesthesia Other Labs: Laboratory Results - last 48 hr 09/10/20 08:12 POC Glucose 103 Cardiac Studies: No Data to Display
--- NOTE | 2020-09-10 10:17 | ANE.PACU2 ---
Inpatient post-anesthesia follow up: Airway intact: Yes Vital signs: Temperature 98.9 F Pulse Rate 69 Respiratory Rate 16 Blood Pressure 162/64 Pulse Oximetry 100 Oxygen Delivery Me thod Room Air Oxygen Flow Rate Fraction of Inspir ed Oxygen Hydration adequate: Yes Nausea and vomiting: Yes
== END 2020-09-10 11:11 | disposition home or self-care (01) ==
PROVIDERS: PCP Family Medicine; Visit Provider Surgery
PROC: 0DJ08ZZ Inspection of Upper Intestinal Tract, Via Natural or Artificial Opening Endoscopic (ICD-10-PCS; CPT 43235; principal; 2020-09-10 09:00)
PROC: 0DJD8ZZ Inspection of Lower Intestinal Tract, Via Natural or Artificial Opening Endoscopic (ICD-10-PCS; CPT 45378; 2020-09-10 09:00)
DX: R11.0 Nausea (principal); R10.9 Unspecified abdominal pain; Z86.010 Personal history of colon polyps; D12.2 Benign neoplasm of ascending colon; D12.4 Benign neoplasm of descending colon; K57.30 Diverticulosis of large intestine without perforation or abscess without bleeding; I10 Essential (primary) hypertension; E78.5 Hyperlipidemia, unspecified; I25.10 Atherosclerotic heart disease of native coronary artery without angina pectoris; Z95.5 Presence of coronary angioplasty implant and graft; K21.9 Gastro-esophageal reflux disease without esophagitis; E11.9 Type 2 diabetes mellitus without complications; F41.9 Anxiety disorder, unspecified; F31.9 Bipolar disorder, unspecified; Z79.82 Long term (current) use of aspirin; Z79.4 Long term (current) use of insulin
CPT/HCPCS: 36416; 43239; 45380; 82962; 88305; 96374; J2405; J2704; J7030

== ENCOUNTER 2020-10-03 07:52 | Outpatient (CLI) | payer MEDICARE, OTHER, SELFPAY ==
[2020-10-03] MEDS: iohexol 300 mg/mL 50 mL Btl PO (09:07)
--- NOTE | 2020-10-03 09:30 | CT_ITS ---
WS: [id number] CT ABDOMEN PELVIS TECHNIQUE: Contrast-enhanced CT of the abdomen and pelvis with coronal and sagittal reformatted image s. CLINICAL INFORMATION: R10.9 - Unspecified abdominal pain COMPARISON: CT abdomen pelvis 12 17,019 DLP: 1841.[address] scans at [facility] use at least one of these dose optimization techniques: automat ed exposure control; mA and/or kV adjustment per patient size (includes targeted exams where dose is matched to clinical indication); or iterative reconstruction. FINDINGS: Prior postoperative changes cholecystectomy and hysterectomy. Diffuse fatty infiltration of the liver . Normal portal vein and splenic vein. Splenic granulomas. Hepatic granulomas. Fatty atrophy of the p ancreas. Lung bases are well aerated. Adrenal glands are normal. Normal renal parenchymal enhancement. No hydr onephrosis. Normal caliber abdominal aorta. Postoperative changes bilateral THAs degrades images in t he pelvis. Sigmoid diverticulosis. No evidence of acute diverticulitis. No evidence of small or large bowel obst ruction. No abdominal or pelvic lymphadenopathy. No inguinal lymphadenopathy. Slight anterolisthesis L4 on L5. CT/CT abdomen pelvis w con* [id number] IMPRESSION: 1. Mild diffuse fatty infiltration of the liver. Prior cholecystectomy. 2. Normal caliber abdominal aorta. 3. Sigmoid diverticulosis. No evidence of acute diverticulitis. 4. Bilateral THAs degrade images in the pelvis. 5. No abdominal or pelvic lymphadenopathy. 6. Normal renal parenchymal enhancement. No hydronephrosis. 7. No evidence of small or large bowel obstruction.
[2020-10-03 09:36] LABS: Blood Urea Nitrogen 13 mg/dL (8-23)
[2020-10-03] MEDS: iohexol 300 mg/mL 100 mL Btl IV (10:12)
== END 2020-10-03 07:53 | disposition home or self-care (01) ==
LOC: RADWPI 08:01 → RAD 08:07
PROVIDERS: PCP Family Medicine; Visit Provider Surgery
DX: R10.9 Unspecified abdominal pain (principal); R31.0 Gross hematuria; K76.0 Fatty (change of) liver, not elsewhere classified; Z90.49 Acquired absence of other specified parts of digestive tract; K57.30 Diverticulosis of large intestine without perforation or abscess without bleeding; Z96.643 Presence of artificial hip joint, bilateral
CPT/HCPCS: 36415; 74177; 82565; 84520

== ENCOUNTER → 2020-10-09 07:51 | Outpatient (BNVA) | payer MEDICARE, OTHER, SELFPAY | PROVIDERS: PCP Family Medicine; Visit Provider Psychiatry & Neurology Psychiatry | DX: F31.81 Bipolar II disorder (principal); F41.0 Panic disorder [episodic paroxysmal anxiety] | CPT/HCPCS: 99214 ==

== ENCOUNTER 2020-10-30 09:50 | Outpatient (CLI) | payer MEDICARE, OTHER, SELFPAY ==
--- NOTE | 2020-10-30 09:54 | NM_ITS ---
WS: [id number] NUCLEAR MEDICINE GASTRIC EMPTYING EXAMINATION HISTORY: ABDOMINAL PAIN/CHRONIC NAUSEA COMPARISON: CT 10/03/2020. TECHNIQUE: The patient ingested a meal containing 1.0 mCi of Tc 99m sulfur colloid mixed with eggs. The patient was placed in supine position and imaging over the abdomen was performed for a total of 6 0 minutes. Computer acquisition with the region of interest placed over the stomach to evaluate gastr ic emptying half-time. Good distention of stomach with the radionuclide meal. 50% emptying of the stomach at approximately 4 6 minutes. There is a normal emptying pattern. NV/[place] [id number] IMPRESSION: Normal gastric emptying time. No gastroparesis.
== END 2020-10-30 09:51 | disposition home or self-care (01) ==
LOC: RAD 09:52
PROVIDERS: PCP Family Medicine; Visit Provider Family Medicine
DX: R11.0 Nausea (principal); R10.9 Unspecified abdominal pain
CPT/HCPCS: 78264; A9541

== ENCOUNTER 2020-11-26 11:29 | Outpatient (CLI) | payer MEDICARE, OTHER, SELFPAY ==
--- NOTE | 2020-11-26 11:45 | MR_ITS ---
WS: [id number] MRI BRAIN WITH AND WITHOUT CONTRAST HISTORY: Meningioma COMPARISON: 11/27/2019 and 12/06/2018 TECHNIQUE: Multiplanar imaging performed through the brain with MultiHance 20 ml's IV. No acute infarcts are seen. Cooper-white matter differentiation is well preserved. Mild bilateral cereb ral atrophy. No significant white matter disease. No prior infarct. No susceptibility artifacts or prior lacunar infarcts. Ventricles and extra-axial spaces are mildly prominent on the basis of central and peripheral atrophy . Clivus and pituitary gland are normal. Visualized posterior fossa and brainstem are also normal. Intensely enhancing mass along the inferior dural margin the RIGHT frontal lobe. This nodule measures 7 x 8 x 5 mm and is unchanged in size over multiple prior years. Dural venous sinuses are normal. Paranasal sinuses: Well aerated with no significant disease. Mastoid air cells: Normal. Calvarium and scalp: Normal. MR/MR head wo/w con [id number] IMPRESSION: 1. 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 2. Mild atrophy, stable.
[2020-11-26] MEDS: gadobenate dimeglumine 20 mL vial IV (12:38)
== END 2020-11-26 11:30 | disposition home or self-care (01) ==
LOC: RADSHAW 11:29
PROVIDERS: PCP Family Medicine; Visit Provider Licensed Practical Nurse
DX: D32.0 Benign neoplasm of cerebral meninges (principal); G31.9 Degenerative disease of nervous system, unspecified
CPT/HCPCS: 70553; A9577

== ENCOUNTER → 2020-11-27 07:36 | Outpatient (BNVA) | payer MEDICARE, OTHER, SELFPAY | PROVIDERS: PCP Family Medicine; Visit Provider Psychiatry & Neurology Psychiatry | DX: F31.81 Bipolar II disorder (principal); F41.0 Panic disorder [episodic paroxysmal anxiety] | CPT/HCPCS: 99214 ==

== ENCOUNTER → 2021-01-15 08:12 | Outpatient (BNVA) | payer MEDICARE, OTHER, SELFPAY | PROVIDERS: PCP Family Medicine; Visit Provider Psychiatry & Neurology Psychiatry | DX: F31.81 Bipolar II disorder (principal); F41.0 Panic disorder [episodic paroxysmal anxiety] | CPT/HCPCS: 99214 ==

== ENCOUNTER → 2021-02-10 08:49 | Day surgery (SDC) | payer MEDICARE, OTHER, SELFPAY ==
[2021-02-10 09:18] VITALS: BP 119/44; PULSE 55; RESP 18; TEMP 36.4; O2SAT 95
[2021-02-10] MEDS: cosyntropin 0.25 mg SDV IVP (09:45)
[2021-02-10 10:21] LABS: Cosyntropin Baseline 0.99 mcg/dL
--- NOTE | 2021-02-10 10:55 | PC.NURSE ---
Pt to GI lab for ACTH stimulation test. Baseline labs obtained. Cosyntropin 0.25 mg given slow IVP as ordered and follow up labs drawn exactly at 30 and 60 min. Pt tolerated well.
[2021-02-10 11:05] LABS: Cosyntropin 30 Minute 10.17 mcg/dL
== END ==
PROVIDERS: PCP Family Medicine; Visit Provider Internal Medicine
DX: E78.5 Hyperlipidemia, unspecified (principal); R00.2 Palpitations; E27.40 Unspecified adrenocortical insufficiency; E16.2 Hypoglycemia, unspecified; E11.9 Type 2 diabetes mellitus without complications
CPT/HCPCS: 36415; 82533; 96374; J0834

== ENCOUNTER 2021-02-13 10:41 | Emergency (ER) | payer MEDICARE, OTHER, SELFPAY ==
[2021-02-13 11:13] VITALS: BP 139/67; PULSE 64; RESP 16; O2SAT 95; BMI 33.1
--- NOTE | 2021-02-13 11:29 | XR_ITS ---
WS: [id number] Portable AP upright chest, 02/13/2021 Clinical Data: dyspnea/cough Comparison: Portable chest, 11/15/2018. Findings: No nodules, masses or effusions are seen. The heart is normal. The pulmonary vascularity is not increased. No pneumonia or pneumothorax is seen. The aortic arch and descending aorta shows mild tortuosity. XR/XR chest 1V portable [id number] Impression: Atherosclerosis.
--- NOTE | 2021-02-13 11:29 | ECG_ITS ---
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 Measurements Intervals [place] Rate: 59 P: VA: QRS: -22 QRSD: 92 T: 15 QT: 397 QTc: 394 Interpretive Statements ATRIAL FIBRILLATION WITH SLOW VENTRICULAR RESPONSE INCOMPLETE RIGHT BUNDLE BRANCH BLOCK [90+ ms QRS DURATION, TERMINAL R IN V1/V2, 40+ ms S IN I/aVL/V4/V5/V6] SEPTAL MYOCARDIAL INFARCTION , OF INDETERMINATE AGE [40+ ms Q WAVE IN V1/V2] Compared to ECG 02/15/2019 06:12:51 Incomplete right bundle-branch block now present Myocardial infarct finding now present Sinus bradycardia no longer present T-wave abnormality no longer present Electronically Signed On 02-13-2021 20:36:10 CDT by Gilma Cai M.D. [id number]
--- NOTE | 2021-02-13 11:29 | CT_ITS ---
WS: [id number] CT ABDOMEN PELVIS TECHNIQUE: Contrast-enhanced CT of the abdomen and pelvis with coronal and sagittal reformatted image s. CLINICAL INFORMATION: abd pain COMPARISON: None. DLP: 1733.[address] scans at [facility] use at least one of these dose optimization techniques: automated e xposure control; mA and/or kV adjustment per patient size (includes targeted exams where dose is matc hed to clinical indication); or iterative reconstruction. FINDINGS: Diffuse fatty infiltration of the liver. Gallbladder is contracted. Small esophageal hiatal hernia. S plenic granulomas. Normal portal vein and splenic vein. Lung bases are well aerated. Fatty atrophy of the pancreas. Adrenal glands are normal. Normal renal parenchymal enhancement. No hy dronephrosis. Bilateral THAs degrade images in the pelvis. Normal abdominal aorta. Moderate calcifica tion. Sigmoid diverticulosis. No evidence of acute diverticulitis. No evidence of small or large bowel obst ruction. CT/CT abdomen pelvis w con* [id number] IMPRESSION: 1. Diffuse fatty infiltration of the liver. 2. Gallbladder is contracted. 3. No hydronephrosis. Normal renal parenchymal enhancement. 4. Normal caliber abdominal aorta. 5. Sigmoid diverticulosis. No evidence of acute diverticulitis. 6. No evidence of small or large bowel obstruction. 7. No acute abdominal or pelvic findings.
[2021-02-13 11:44] LABS: Basophils % 0.4 %; Eosinophils # 0.3 10^3/uL (0.0-0.8); Eosinophils % 3.4 %; Hematocrit 39.7 % (37.0-47.0); Hemoglobin 13.1 g/dL (11.5-15.3); Lymphocytes # 2.1 10^3/uL (0.8-4.8); Lymphocytes % 26.3 %; Mean Corpuscular Volume 93.9 fl (81-99); Mean Platelet Volume 9.9 fL (7.4-10.4); Monocytes # 0.5 10^3/uL (0.2-0.9); Monocytes % 6.5 %; Neutrophils # 5.12 10^3/uL (1.8-7.7); Nucleated Red Blood Cells % 0 %; Platelet Count 203 10^3/cmm (130-400); Red Blood Count 4.23 10^6/uL (4.1-5.3); Red Cell Distribution Width 13.2 % (12.1-15.1); White Blood Count 8.1 10^3/uL (4.0-10.0)
--- NOTE | 2021-02-13 11:49 | W.ED.GENADLT ---
HPI - General Adult General: Chief complaint: General Medical Stated complaint: DIZZY Time Seen by Provider: 02/13/21 11:12 History of Present Illness: HPI narrative: 75-year-old female directed to the emergency room by her wallpaperer helper. She was recently found to have Zeb's and is started on hydrocortisone. She remains symptomatic despite with hydrocortisone she was not feeling well today contact her wallpaperer helper as directed here for further evaluation including possible secondary infections. On arrival here she is alert oriented and appropriate. She complaining of mild abdominal discomfort but no other symptoms any fever sweats chills nausea vomiting diarrhea no hematemesis coffee-ground emesis no shortness of breath or cough no dysuria urgency or frequency. Onset (ago): week(s) Location: abdomen Severity: moderate Quality: aching Pain Consistency: constant Relieving factors: none Exacerbating factors: none Associated symptoms: Reports decreased appetite, malaise, nausea and weakness; Deny chest pain, confusion, cough, diaphoresis, dyspnea, fevers/chills, headache(s), rash, palpitations, seizures, short of breath, syncope or vomiting Treatments prior to arrival: none Review of Systems Const: Reports: malaise; Denies: diaphoresis ENMT: Denies: throat pain, ear or mastoid pain, nasal discharge or nasal congestion Card: Denies: chest pain, palpitations or syncope Resp: Denies: dyspnea GI: Reports: nausea; Denies: vomiting : Denies: flank pain, difficulty voiding, dysuria, urinary frequency or urinary urgency Skin/Breast: Denies: rash Neuro: Denies: headache(s) or confusion PFS ED PFSH: Medical History Acute cystitis Anemia, chronic disease 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 Left axis deviation. Normal NV and QRS duration. Intervertebral disc disorder with radiculopathy of lumbosacral region Recurrent UTI Status post left heart catheterization Surgical History History of colonoscopy (~2018) History of coronary artery stent placement History of right knee surgery S/P appendectomy S/P hernia repair S/P hip replacement S/P hysterectomy Family History Family/Other Diabetes Other Cancer Social History Smoking and tobacco status: never smoked Alcohol intake: never Household members: spouse Marital status: Current occupational status: retired History of recent travel: No Physical Exam Const: COMMON NORMALS: no acute distress GENERAL APPEARANCE: cooperative and comfortable ORIENTATION/CONSCIOUSNESS: Yes awake, Yes oriented to person, Yes oriented to place and Yes oriented to time HENMT: COMMON NORMALS: normocephalic, atraumatic and hearing grossly normal bilaterally HEAD & SCALP: normocephalic and atraumatic Eye: COMMON NORMALS: Equal, round and reactive pupils present, EOMs intact bilaterally, conjunctivae normal and no scleral icterus CONJUNCTIVA: Yes conjunctivae normal PUPIL: Yes Equal, round and reactive pupils present Neck/C-Spine: COMMON NORMALS: full ROM, no lymphadenopathy, supple and no JVD Lymph: LYMPHATIC: no lymphadenopathy noted and no lymphedema noted Resp: COMMON NORMALS: normal respiratory effort, No retractions, No use of accessory muscles and clear to auscultation bilaterally AUSCULTATION: clear to auscultation bilaterally Cardio: COMMON NORMALS: no JVD, regular rate, regular rhythm and No murmurs present (Cardio) RATE: regular rate RHYTHM: regular rhythm GI: COMMON NORMALS: Soft to palpation and No hepatosplenomegaly present AUSCULTATION: Yes normoactive bowel sounds PALPATION: Yes Soft to palpation, No Tenderness to palpation present (GI), No Guarding due to palpation present (GI) and Yes No hepatosplenomegaly present Extremity: COMMON NORMALS: normal to inspection, capillary refill normal, no clubbing, cyanosis or edema, no calf tenderness and no pedal edema Neuro: SENSORIUM/ORIENTATION: Yes oriented to person, Yes oriented to place and Yes oriented to time Skin: COMMON NORMALS: no rashes or lesions noted GENERAL SKIN EXAM: no rashes or lesions noted Course Vital Signs: Vital signs: Vital Signs Pulse Rate 59 L 02/13/21 12:15 Respiratory Rate 16 02/13/21 11:13 Blood Pressure 154/87 02/13/21 12:15 Pulse Oximetry 95 02/13/21 12:15 MDM - General Adult MDM Narrative: Medical decision making narrative: Labs imaging and EKG reviewed as found on the chart discussed with Dr. Denson after results are back she recommends increasing to 20 mg hydrocortisone twice a day follow-up with Dr. Llanes in the office in the next 2 to 3 days and then follow-up with Dr. Denson in the next 10 to 14 days can return to the emergency room if has further problems. Lab Data: Labs: Lab Results 02/13/21 02/13/21 02/13/21 11:31 11:31 11:31 WBC 8.1 10^3/uL 10^3/ uL (4.0-10.0) RBC 4.23 10^6/uL 10^6 /uL (4.1-5.3) Hgb 13.1 g/dL g/dL (11.5-15.3) Hct 39.7 % % (37.0-47.0) MCV 93.9 fl fl (81-99) MCH 31.0 pg pg (28.0-34.0) MCHC 33.0 g/dL g/dL (30.0-36.0) RDW 13.2 % % (12.1-15.1) Plt Count 203 10^3/cmm 10^3 /cmm (130-400) MPV 9.9 fL fL (7.4-10.4) Neut % (Auto) 63.0 % % Lymph % (Auto) 26.3 % % [place] % (Auto) 6.5 % % Eos % (Auto) 3.4 % % Baso % (Auto) 0.4 % % Neut # (Auto) 5.12 10^3/uL 10^3 /uL (1.8-7.7) Lymph # (Auto) 2.1 10^3/uL 10^3/ uL (0.8-4.8) [place] # (Auto) 0.5 10^3/uL 10^3/ uL (0.2-0.9) Eos # (Auto) 0.3 10^3/uL 10^3/ uL (0.0-0.8) Baso # (Auto) 0.0 10^3/uL 10^3/ uL (0.0-0.1) Nucleated RBC % (a uto) 0 % % Nucleated RBCs # 0.0 /100WBC /100W BC Sodium 132 mmol/L L mmol /L (136-145) Potassium 4.6 mmol/L mmol/L (3.5-5.1) Chloride 95 mmol/L L mmol/ L (98-107) Carbon Dioxide 28 mmol/L mmol/L (22-29) Anion Gap 13.6 (5-19) BUN 7 mg/dL L mg/dL (8-23) Creatinine 0.4 mg/dL L mg/dL (0.5-0.9) GFR Calculation Not Reportable Glucose 203 mg/dL H mg/dL (65-115) Calculated Osmolal ity 278 mOsm/kg L mOs m/kg (285-295) Lactic Acid 1.4 mmol/L mmol/L (0.5-2.2) Calcium 9.6 mg/dL mg/dL (8.5-10.5) Magnesium 2.1 mg/dL mg/dL (1.7-2.3) Total Bilirubin 0.4 mg/dL mg/dL (0.15-1.2) AST 19 U/L U/L (0-32) ALT 32 U/L U/L (0-33) Alkaline Phosphata se 132 IU/L H IU/L (35-105) Creatine Kinase 51 U/L U/L (26-192) Troponin T Baselin e Total Protein 6.8 g/dL g/dL (6.6-8.7) Albumin 4.1 g/dL g/dL (3.5-5.2) Globulin 2.7 g/dL g/dL (1.3-4.6) Lipase 13 U/L U/L (13-60) Procalcitonin 0.02 ng/mL ng/mL (0-0.5) Random Cortisol 24.66 ug/dL H ug/ dL (2.47-19.5) Urine Color Urine Appearance Urine pH Ur Specific Gravit y Urine Protein Urine Glucose (UA) Urine Ketones Urine Blood Urine Nitrate Urine Bilirubin Prot Sulfosalicyli c Acd Urine Urobilinogen Ur Leukocyte Camryn ase Serum Ketones 02/13/21 02/13/21 02/13/21 11:31 11:31 11:39 WBC RBC Hgb Hct MCV MCH MCHC RDW Plt Count MPV Neut % (Auto) Lymph % (Auto) [place] % (Auto) Eos % (Auto) Baso % (Auto) Neut # (Auto) Lymph # (Auto) [place] # (Auto) Eos # (Auto) Baso # (Auto) Nucleated RBC % (a uto) Nucleated RBCs # Sodium Potassium Chloride Carbon Dioxide Anion Gap BUN Creatinine GFR Calculation Glucose Calculated Osmolal ity Lactic Acid Calcium Magnesium Total Bilirubin AST ALT Alkaline Phosphata se Creatine Kinase Troponin T Baselin e 6 ng/L ng/L (0-10) Total Protein Albumin Globulin Lipase Procalcitonin Random Cortisol Urine Color Straw (Yellow) Urine Appearance Clear (CLEAR) Urine pH 8 H (5-7) Ur Specific Gravit y 1.010 (1.005-1.030) Urine Protein Neg (Negative) Urine Glucose (UA) Norm (Normal) Urine Ketones Negative (Negative) Urine Blood Neg (Negative) Urine Nitrate Negative (Negative) Urine Bilirubin Neg (Negative) Prot Sulfosalicyli c Acd Negative (Negative) Urine Urobilinogen Norm mg/dL mg/dL (Negative) Ur Leukocyte Camryn ase Negative (Negative) Serum Ketones Negative (Negative) Discharge Plan Discharge Patient Disposition: Home Clinical Impression: [place] disease Condition: Stable Prescriptions: Changed hydrocortisone 10 mg tablet 20 mg PO BID Qty: 90 RF: 3 No Action omeprazole 40 mg capsule,delayed release(DR/EC) 40 mg PO BID RF: 0 ascorbic acid (vitamin C) 250 mg tablet 1 gm PO DAILY RF: 0 ondansetron HCl [Zofran] 4 mg tablet 4 mg PO ONCE PRN (Reason: nausea and vomiting) RF: 0 dicyclomine 10 mg capsule 10 mg PO QID RF: 0 metoprolol tartrate 25 mg tablet 25 mg PO BID RF: 0 Senokot Extra Strength 17.2 mg tablet 17.2 mg PO BID RF: 0 furosemide [Lasix] 20 mg tablet 20 mg PO QAM PRN (Reason: SWELLING) RF: 0 hydrocodone-acetaminophen 7.5-300 mg tablet 1 tab PO QID PRN (Reason: Pain) RF: 0 lactulose 10 gram/15 mL solution 15 ml PO DAILY RF: 0 metoprolol succinate 25 mg tablet extended release 24 hr 25 mg PO BID RF: 0 clopidogrel 75 mg tablet 75 mg PO DAILY Qty: 90 RF: 3 aspirin [Aspir-81] 81 mg tablet,delayed release (DR/EC) 81 mg PO DAILY RF: 0 cholecalciferol (vitamin D3) 1,000 unit capsule 1,000 unit PO DAILY RF: 0 cranberry 500 mg capsule 500 mg PO DAILY RF: 0 Lactobacillus acidophilus [Acidophilus] Capsule 100 mmu cells PO DAILY RF: 0 magnesium oxide 400 mg (241.3 mg magnesium) tablet 400 mg PO DAILY RF: 0 vitamin E mixed 1,000 unit capsule 1,000 unit PO DAILY RF: 0 potassium chloride [Klor-Con 10] 10 mEq tablet extended release 10 meq PO DAILY PRN (Reason: WITH LASIX) RF: 0 docusate sodium [Colace] 100 mg capsule 100 mg PO BID RF: 0 loratadine [Allergy Relief (loratadine)] 10 mg tablet 10 mg PO DAILY PRN (Reason: ALLERGIES) RF: 0 ferrous sulfate 325 mg (65 mg iron) tablet 325 mg PO DAILY RF: 0 citalopram 40 mg tablet 40 mg PO DAILY Qty: 30 RF: 11 quetiapine [Seroquel] 100 mg tablet 100 mg PO DAILY Qty: 30 RF: 11 losartan 50 mg tablet 50 mg PO DAILY Qty: 90 RF: 3 isosorbide mononitrate 60 mg Tablet Extended Release 24 Hr 60 mg PO DAILY RF: 0 estradiol 0.5 mg Tablet 0.5 mg PO DAILY RF: 0 atorvastatin 40 mg tablet 40 mg PO DAILY RF: 0 Discharge Orders: Discharge ED (Routine); Ordered 02/13/21 Ordered By: Maximiliano Morris Referrals: Arabella Orta MD [Primary Care Provider] - Patient Instructions: Opioid Safety Activity Restrictions/Additional Instructions: Increase hydrocortisone to 2 tablets in the morning and two at noon. Follow-up with Dr. Llanes within the next 3 to [address] Denson within the next 10 to 14 days. Return to the emergency room if you have further problems. Coding Level of Care Code ED Combination Technician for Gale F[facility]ona Exam Comprehensive
[2021-02-13 11:55] LABS: Ketone (Acetest) Serum Negative (Negative)
[2021-02-13 12:01] LABS: Lactic Sepsis W/Reflex 1.4 mmol/L (0.5-2.2)
[2021-02-13 12:03] LABS: Add Urine Microscopic? NO; Charge for UA Resulting for Rev
[2021-02-13 12:03] LABS: Troponin(5th) Baseline 6 ng/L (0-10)
[2021-02-13 12:07] LABS: Bilirubin Urine Neg (Negative); Blood Urine Neg (Negative); Glucose Urine UA Norm (Normal); Ketones Urine Negative (Negative); Leukocyte Esterase Urine Negative (Negative); Nitrate Urine Negative (Negative); Protein Urine Neg (Negative); Sulfosalicylic Acid Urine Negative (Negative); Urine Appearance Clear (CLEAR); Urine Color Straw (Yellow); Urobilinogen Urine Norm (Negative); pH Urine 8 (5-7)
[2021-02-13 12:11] LABS: Cortisol Random 24.66 ug/dL (2.47-19.5); Procalcitonin 0.02 ng/mL (0-0.5)
[2021-02-13 12:15] VITALS: BP 154/87; PULSE 59; O2SAT 95
[2021-02-13 12:22] LABS: Alanine Aminotransferase 32 U/L (0-33); Albumin Level 4.1 g/dL (3.5-5.2); Alkaline Phosphatase 132 IU/L (35-105); Anion Gap 13.6 (5-19); Aspartate Amino Transferase 19 U/L (0-32); Blood Urea Nitrogen 7 mg/dL (8-23); Calcium 9.6 mg/dL (8.5-10.5); Carbon Dioxide 28 mmol/L (22-29); Chloride 95 mmol/L (98-107); Creatine Phosphokinase 51 U/L (26-192); Creatinine Clr Calc Pharmacy 65.3626; Globulin 2.7 g/dL (1.3-4.6); Glucose 203 mg/dL (65-115); Lipase 13 U/L (13-60); Magnesium 2.1 mg/dL (1.7-2.3); Osmolality Calculated 278 mOsm/kg (285-295); Potassium 4.6 mmol/L (3.5-5.1); Sodium 132 mmol/L (136-145); Total Bilirubin 0.4 mg/dL (0.15-1.2); Total Protein 6.8 g/dL (6.6-8.7)
[2021-02-13] MEDS: iohexol 300 mg/mL 100 mL Btl IV (12:42)
[2021-02-13] MEDS: morphine 4 mg/mL SDV 1 mL 2 MG IVP (14:11)
[2021-02-13] MEDS: ondansetron 2 mg/ML SDV 2 mL 4 MG IVP (14:11)
--- NOTE | 2021-02-14 10:16 | DCPLANNER ---
Addendum entered by Parvin Alvarez 06/11/21 17:59: Patient had a follow up appointment scheduled for 01.30.[address] Denson - patient did attend appointment. Original Note: artist relationship manager had message to schedule a follow up appointment for patient with endocronology. artist relationship manager called the office of Dr. Denson, spoke with Pavel, gave clinic patients information. A follow up appointment was scheduled for Wednesday, February 19, 2021 at 8:[address] Denson. Clinic will call patient with appointment information.
== END 2021-02-13 14:26 | disposition home or self-care (01) ==
PROVIDERS: Emergency Provider Family Medicine; PCP Family Medicine
DX: E27.1 Primary adrenocortical insufficiency (principal); Z79.82 Long term (current) use of aspirin; Z79.02 Long term (current) use of antithrombotics/antiplatelets; I25.10 Atherosclerotic heart disease of native coronary artery without angina pectoris; E78.5 Hyperlipidemia, unspecified
CPT/HCPCS: 71045; 74177; 80053; 81003; 82009; 82533; 82550; 83605; 83690; 83735; 84145; 84484; 85025; 87040; 93005; 96374; 96375; 99283; J2270; J2405; Q9967

== ENCOUNTER 2021-02-21 05:55 | Emergency (ER) | payer MEDICARE, OTHER, SELFPAY ==
[2021-02-21 05:57] VITALS: BP 169/63; PULSE 72; RESP 20; TEMP 36.7; O2SAT 99; BMI 33.3
--- NOTE | 2021-02-21 06:13 | ECG_ITS ---
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 Measurements Intervals [place] Rate: 64 P: 5 SC: 155 QRS: -26 QRSD: 101 T: 31 QT: 379 QTc: 393 Interpretive Statements SINUS RHYTHM BORDERLINE LEFT AXIS DEVIATION [QRS AXIS < -20] MINIMAL VOLTAGE CRITERIA FOR LVH, CONSIDER NORMAL VARIANT [MEETS CRITERIA IN ONE OF: R(aVL), S(V1), R(V5), R(V5/V6)+S(V1)] Compared to ECG 02/13/2021 11:49:05 Atrial fibrillation no longer present Incomplete right bundle-branch block no longer present Myocardial infarct finding no longer present Electronically Signed On 02-21-2021 21:05:53 CDT by Jose Sumenr M.D. [id number]
--- NOTE | 2021-02-21 06:14 | XRR_ITS ---
PROCEDURE INFORMATION: Exam: XR Chest Exam date and time: 02/21/2021 6:14 AM Age: 75 years old Clinical indication: Other: Elevated BP; Patient HX: C/O high blood pressure, not feeling right; Additional info: Dyspnea/cough TECHNIQUE: Imaging protocol: XR of the chest. Views: 1 view. COMPARISON: CR XR chest 1V portable [id number] 02/13/2021 11:54 AM FINDINGS: Lungs: Unremarkable. No consolidation. Pleural spaces: Unremarkable. No pleural effusion. No pneumothorax. Heart/Mediastinum: Stable cardiomediastinal silhouette. Bones/joints: Degenerative changes of the spine seen. XR/XR chest 1V portable [id number] IMPRESSION: No evidence of active cardiopulmonary disease.
[2021-02-21 06:24] LABS: Basophils % 0.4 %; Eosinophils # 0.3 10^3/uL (0.0-0.8); Eosinophils % 4.1 %; Hematocrit 39.2 % (37.0-47.0); Hemoglobin 12.9 g/dL (11.5-15.3); Lymphocytes % 39.8 %; Mean Corpuscular HGB Conc 32.9 g/dL (30.0-36.0); Mean Corpuscular Hemoglobin 30.6 pg (28.0-34.0); Mean Corpuscular Volume 93.1 fl (81-99); Mean Platelet Volume 10.1 fL (7.4-10.4); Monocytes # 0.6 10^3/uL (0.2-0.9); Monocytes % 7.8 %; Neutrophils % 47.5 %; Nucleated Red Blood Cells % 0 %; Platelet Count 190 10^3/cmm (130-400); Red Blood Count 4.21 10^6/uL (4.1-5.3); Red Cell Distribution Width 13.5 % (12.1-15.1); White Blood Count 7.6 10^3/uL (4.0-10.0)
[2021-02-21 06:32] LABS: Alanine Aminotransferase 29 U/L (0-33); Albumin Level 4.1 g/dL (3.5-5.2); Alkaline Phosphatase 105 IU/L (35-105); Anion Gap 12.3 (5-19); Aspartate Amino Transferase 19 U/L (0-32); Blood Urea Nitrogen 9 mg/dL (8-23); Calcium 10.1 mg/dL (8.5-10.5); Carbon Dioxide 29 mmol/L (22-29); Chloride 100 mmol/L (98-107); Globulin 2.5 g/dL (1.3-4.6); Glucose 176 mg/dL (65-115); Osmolality Calculated 287 mOsm/kg (285-295); Potassium 4.3 mmol/L (3.5-5.1); Sodium 137 mmol/L (136-145); Total Bilirubin 0.4 mg/dL (0.15-1.2); Total Protein 6.6 g/dL (6.6-8.7)
[2021-02-21 06:34] LABS: Troponin(5th) Baseline 7 ng/L (0-10)
--- NOTE | 2021-02-21 06:56 | CT_ITS ---
WS: [id number] CT ABDOMEN AND PELVIS WITH CONTRAST HISTORY: Upper abdominal pain for one week. TECHNIQUE: Imaging performed of the abdomen and pelvis with IV contrast. Single phase imaging of the abdomen. Coronal and sagittal reformats are submitted. All CT scans at [facility] use at [address] one of these dose optimization techniques: automated exposure control; mA and/or kV adjustment per patient size (includes targeted exams where dose is matched to clinical indication); or iterative re construction. IV CONTRAST: Omnipaque 300; 95 mL IV. Oral contrast: No DLP: 1695.86 mGy.cm COMPARISON: 02/13/2021 Lower thorax: Lung bases are clear. Mild enlargement of the heart. Small hiatal hernia. Liver/biliary system: Mild central bile duct dilatation with no mass. Scattered hepatic granulomatous . Portal vein is normal. Gallbladder: Status post cholecystectomy. Pancreas: Marked atrophy of the pancreas. Spleen: Normal size spleen with several granulomata. Adrenal glands: Normal. Right kidney: Very minimal perinephric stranding is similar to prior studies. No obstruction or mass. Left kidney: Very minimal perinephric stranding. No obstruction or mass. Aorta: Mild atherosclerosis with no aneurysm. Lymphadenopathy: None. Free fluid: None. GI tract: Prior appendectomy. No GI tract obstruction or ischemic changes. No small bowel obstruction . Numerous diverticula in the descending and sigmoid colon. Abdominal wall: Unremarkable abdominal wall. No hernia. Pelvis: Prior hysterectomy. No free fluid. Artifact in the patient's bilateral hip prosthesis through the pelvis. Bones: L4 anterolisthesis by 5 mm. Mild bilateral facet joint arthritis at L4-5 and L5-S1. Bilateral hip prostheses. CT/CT abdomen pelvis w con* [id number] IMPRESSION: 1. No acute abdominal or pelvic abnormalities are identified. 2. Prior cholecystectomy, appendectomy and hysterectomy. 3. No renal obstruction. Mild perinephric stranding is similar to prior studie s. 4. Mild atherosclerosis aorta. 5. Distal colon diverticulosis without evidence for acute diverticulitis.
--- NOTE | 2021-02-21 06:58 | W.ED.CHESTPA ---
HPI - Chest Pain General: Chief Complaint: Chest Pain Stated Complaint: CP Time Seen by Provider: 02/21/21 05:58 History of Present Illness: HPI narrative: 75-year-old female comes in complaining of dizziness and chest pain that began earlier this morning. Chest pain is resolved now. She has had multiple evaluations in the past. She has a known history of heart disease history of diabetes states today's pain is more epigastric. She is pain-free at this time MD complaint: chest discomfort (And abdominal discomfort) Onset (ago): hour(s) Timing of current episode: episodic Prior episodes: Yes Onset: during rest Pain location: epigastric Severity: mild Quality: aching and heaviness Relieving factors: nothing Exacerbating factors: nothing Associated symptoms: Deny abdominal pain, dyspnea, fever(s), nausea or vomiting Treatment prior to arrival: none Review of Systems Const: Denies: fever(s), chills, body aches, change in appetite, fatigue or malaise ENMT: Denies: throat pain, ear or mastoid pain, nasal discharge or nasal congestion Card: Denies: chest pain, edema, dyspnea on exertion or orthopnea Resp: Denies: dyspnea, productive cough or non-productive cough GI: Denies: abdominal pain, nausea, vomiting, hematemesis, coffee ground emesis, diarrhea, constipation, bloating, hematochezia or melena : Denies: flank pain, difficulty voiding, dysuria, urinary frequency or urinary urgency Skin/Breast: Denies: rash or pruritus PFSH ED PFSH: Medical History Acute cystitis Anemia, chronic disease 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 Left axis deviation. Normal DE and QRS duration. Intervertebral disc disorder with radiculopathy of lumbosacral region Recurrent UTI Status post left heart catheterization Surgical History History of colonoscopy (~2018) History of coronary artery stent placement History of right knee surgery S/P appendectomy S/P hernia repair S/P hip replacement S/P hysterectomy Family History Family/Other Diabetes Other Cancer Social History Smoking and tobacco status: never smoked Alcohol intake: never Household members: spouse Marital status: Current occupational status: retired History of recent travel: No Physical Exam Const: COMMON NORMALS: no acute distress GENERAL APPEARANCE: cooperative and comfortable ORIENTATION/CONSCIOUSNESS: Yes awake, Yes oriented to person, Yes oriented to place and Yes oriented to time HENMT: COMMON NORMALS: normocephalic, atraumatic and hearing grossly normal bilaterally HEAD & SCALP: normocephalic and atraumatic Neck/C-Spine: COMMON NORMALS: no JVD Resp: COMMON NORMALS: normal respiratory effort, No retractions, No use of accessory muscles and clear to auscultation bilaterally AUSCULTATION: clear to auscultation bilaterally Cardio: COMMON NORMALS: no JVD, regular rate, regular rhythm and No murmurs present (Cardio) RATE: regular rate RHYTHM: regular rhythm GI: COMMON NORMALS: No hepatosplenomegaly present AUSCULTATION: Yes normoactive bowel sounds PALPATION: Yes Tenderness to palpation present (GI) (Vague nonspecific tenderness not present with distraction), No Guarding due to palpation present (GI) and Yes No hepatosplenomegaly present Extremity: COMMON NORMALS: normal to inspection, capillary refill normal, no clubbing, cyanosis or edema, no calf tenderness and no pedal edema Neuro: SENSORIUM/ORIENTATION: Yes oriented to person, Yes oriented to place and Yes oriented to time Skin: COMMON NORMALS: no rashes or lesions noted GENERAL SKIN EXAM: no rashes or lesions noted Course Vital Signs: Vital signs: Vital Signs Temperature 98.0 F 02/21/21 05:57 Pulse Rate 65 02/21/21 11:34 Respiratory Rate 16 02/21/21 11:34 Blood Pressure 158/61 02/21/21 11:34 Pulse Oximetry 100 02/21/21 11:34 MDM - Chest Pain MDM Narrative: Medical decision making narrative: Labs imaging EKG reviewed on the chart EKG does not show any acute ST changes current troponins are negative. We will go ahead and discharge the patient home recommend she take baby aspirin daily and will set her up for an outpatient stress test return for further problems Lab Data: Labs: Lab Results 02/21/21 02/21/21 02/21/21 05:41 05:41 05:41 WBC 7.6 10^3/uL 10^3/ uL (4.0-10.0) RBC 4.21 10^6/uL 10^6 /uL (4.1-5.3) Hgb 12.9 g/dL g/dL (11.5-15.3) Hct 39.2 % % (37.0-47.0) MCV 93.1 fl fl (81-99) MCH 30.6 pg pg (28.0-34.0) MCHC 32.9 g/dL g/dL (30.0-36.0) RDW 13.5 % % (12.1-15.1) Plt Count 190 10^3/cmm 10^3 /cmm (130-400) MPV 10.1 fL fL (7.4-10.4) Neut % (Auto) 47.5 % % Lymph % (Auto) 39.8 % % [place] % (Auto) 7.8 % % Eos % (Auto) 4.1 % % Baso % (Auto) 0.4 % % Neut # (Auto) 3.60 10^3/uL 10^3 /uL (1.8-7.7) Lymph # (Auto) 3.0 10^3/uL 10^3/ uL (0.8-4.8) [place] # (Auto) 0.6 10^3/uL 10^3/ uL (0.2-0.9) Eos # (Auto) 0.3 10^3/uL 10^3/ uL (0.0-0.8) Baso # (Auto) 0.0 10^3/uL 10^3/ uL (0.0-0.1) Nucleated RBC % (a uto) 0 % % Nucleated RBCs # 0.0 /100WBC /100W BC Sodium 137 mmol/L mmol/L (136-145) Potassium 4.3 mmol/L mmol/L (3.5-5.1) Chloride 100 mmol/L mmol/L (98-107) Carbon Dioxide 29 mmol/L mmol/L (22-29) Anion Gap 12.3 (5-19) BUN 9 mg/dL mg/dL (8-23) Creatinine 0.5 mg/dL mg/dL (0.5-0.9) GFR Calculation Not Reportable Glucose 176 mg/dL H mg/dL (65-115) Calculated Osmolal ity 287 mOsm/kg mOsm/ kg (285-295) Calcium 10.1 mg/dL mg/dL (8.5-10.5) Total Bilirubin 0.4 mg/dL mg/dL (0.15-1.2) AST 19 U/L U/L (0-32) ALT 29 U/L U/L (0-33) Alkaline Phosphata se 105 IU/L IU/L (35-105) Troponin T Baselin e 7 ng/L ng/L (0-10) Troponin T 120 Min [place] Troponin T Total Protein 6.6 g/dL g/dL (6.6-8.7) Albumin 4.1 g/dL g/dL (3.5-5.2) Globulin 2.5 g/dL g/dL (1.3-4.6) Lipase Urine Color Urine Appearance Urine pH Ur Specific Gravit y Urine Protein Urine Glucose (UA) Urine Ketones Urine Blood Urine Nitrate Urine Bilirubin Prot Sulfosalicyli c Acd Urine Urobilinogen Ur Leukocyte Camryn ase 02/21/21 02/21/21 02/21/21 05:41 08:24 08:52 WBC RBC Hgb Hct MCV MCH MCHC RDW Plt Count MPV Neut % (Auto) Lymph % (Auto) [place] % (Auto) Eos % (Auto) Baso % (Auto) Neut # (Auto) Lymph # (Auto) [place] # (Auto) Eos # (Auto) Baso # (Auto) Nucleated RBC % (a uto) Nucleated RBCs # Sodium Potassium Chloride Carbon Dioxide Anion Gap BUN Creatinine GFR Calculation Glucose Calculated Osmolal ity Calcium Total Bilirubin AST ALT Alkaline Phosphata se Troponin T Baselin e Troponin T 120 Min [place] 7.60 ng/L ng/L (0-10) [place] Troponin T 0.60 ABS# ABS# (0-10) Total Protein Albumin Globulin Lipase 15 U/L U/L (13-60) Urine Color Straw (Yellow) Urine Appearance Clear (CLEAR) Urine pH 9 H (5-7) Ur Specific Gravit y 1.010 (1.005-1.030) Urine Protein Neg (Negative) Urine Glucose (UA) Norm (Normal) Urine Ketones Negative (Negative) Urine Blood Neg (Negative) Urine Nitrate Negative (Negative) Urine Bilirubin Neg (Negative) Prot Sulfosalicyli c Acd Negative (Negative) Urine Urobilinogen Norm mg/dL mg/dL (Negative) Ur Leukocyte Camryn ase Negative (Negative) Discharge Plan Discharge Patient Disposition: Home Clinical Impression: Atypical chest pain, Benign essential hypertension with target blood pressure below 140/90, Heart palpitations, Anemia, chronic disease, Diabetes type 2, controlled, Abdominal pain Condition: Stable Prescriptions: No Action omeprazole 40 mg capsule,delayed release(DR/EC) 40 mg PO BID RF: 0 ondansetron HCl [Zofran] 4 mg tablet 4 mg PO Q6H PRN (Reason: nausea and vomiting) RF: 0 dicyclomine 10 mg capsule 10 mg PO QID RF: 0 furosemide [Lasix] 20 mg tablet 20 mg PO QAM PRN (Reason: SWELLING) RF: 0 lactulose 10 gram/15 mL solution 15 ml PO DAILY@12 RF: 0 metoprolol succinate 25 mg tablet extended release 24 hr 25 mg PO BID RF: 0 cholecalciferol (vitamin D3) 1,000 unit capsule 1,000 unit PO QPM RF: 0 cranberry 500 mg capsule 500 mg PO DAILY@12 RF: 0 Lactobacillus acidophilus [Acidophilus] Capsule 1 cap PO QAM RF: 0 potassium chloride [Klor-Con 10] 10 mEq tablet extended release 10 meq PO DAILY PRN (Reason: WITH LASIX) RF: 0 loratadine [Allergy Relief (loratadine)] 10 mg tablet 10 mg PO DAILY PRN (Reason: ALLERGIES) RF: 0 ferrous sulfate 325 mg (65 mg iron) tablet 325 mg PO DAILY@12 RF: 0 magnesium oxide 400 mg (241.3 mg magnesium) tablet 500 mg PO DAILY@12 RF: 0 isosorbide mononitrate 60 mg Tablet Extended Release 24 Hr 60 mg PO QAM RF: 0 atorvastatin 40 mg tablet 40 mg PO BEDTIME RF: 0 Senna-S 8.6-50 mg Tablet See Rx Instructions .ROUTE .COMPLEX RF: 0 Aspir-81 81 mg Tablet,Delayed Release (Dr/Ec) 81 mg PO QAM RF: 0 hydrocodone-acetaminophen 7.5-325 mg tablet 1 tab PO QID PRN (Reason: Pain) RF: 0 estradiol 0.5 mg tablet 0.5 mg PO QAM RF: 0 Tresiba FlexTouch U-200 200 unit/mL (3 mL) insulin pen 15 unit SUBCUT DAILY RF: 0 Vitamin C Gummies 3 tab PO DAILY@12 RF: 0 losartan 50 mg tablet 50 mg PO DAILY@12 RF: 0 citalopram 40 mg tablet 40 mg PO QAM RF: 0 clopidogrel 75 mg tablet 75 mg PO QPM RF: 0 Seroquel 100 mg tablet 100 mg PO BEDTIME RF: 0 hydrocortisone 10 mg tablet 20 mg PO BID@07,12 RF: 0 Discharge Orders: Discharge ED (Routine); Ordered 02/21/21 Ordered By: Maximiliano Morris Referrals: Arabella Orta MD [Primary Care Provider] - Discharge Activity: Limit activity as instructed Patient Instructions: Abdominal Pain (ED), Opioid Safety Coding Level of Care Code 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
[2021-02-21 07:29] LABS: Lipase 15 U/L (13-60)
[2021-02-21] MEDS: iohexol 300 mg/mL 100 mL Btl IV (07:47)
[2021-02-21 08:00] VITALS: BP 185/84; PULSE 67; RESP 17; O2SAT 100
--- NOTE | 2021-02-21 08:50 | PC.PHAR ---
pt states she takes care of her own medications-[facility] is not open to verify drug,mg, or directions -medications entered are what the pt states she takes and what shows has been filled on ext med history-pt states she has lasix and kcl pt states she is not taking them kcl 10meq was on a previous entered med list ext med history shows last filled on 02/24/2020 for 8meq daily-lasix doesnt shows when last filled-pt states she takes estradiol 0.5mg qam-rx was filled for 0.5mg bid-pt states she has a tresiba flextouch and uses 15 units daily unless blood sugar is over 250mg-pt states it was written for [facility] to verify what it was filled as-notes are made in the pharmacy comments
[2021-02-21 08:58] LABS: Add Urine Microscopic? NO; Charge for UA Resulting for Rev
[2021-02-21 09:00] VITALS: BP 195/82; PULSE 66; RESP 19; O2SAT 99
[2021-02-21] MEDS: metoprolol succinate ER (24 HR) 25 mg Tablet PO (09:11)
[2021-02-21] MEDS: HYDROcodone-acetaminophen 7.5-325 mg Tablet 1 TAB PO (09:11)
[2021-02-21 09:15] LABS: Urine Appearance Clear (CLEAR); Urine Color Straw (Yellow); pH Urine 9 (5-7)
[2021-02-21 09:16] LABS: Bilirubin Urine Neg (Negative); Blood Urine Neg (Negative); Glucose Urine UA Norm (Normal); Ketones Urine Negative (Negative); Leukocyte Esterase Urine Negative (Negative); Nitrate Urine Negative (Negative); Protein Urine Neg (Negative); Sulfosalicylic Acid Urine Negative (Negative); Urobilinogen Urine Norm (Negative)
[2021-02-21 10:13] VITALS: BP 170/76; PULSE 64; RESP 24; O2SAT 97
[2021-02-21 11:34] VITALS: BP 158/61; PULSE 65; RESP 16; O2SAT 100
--- NOTE | 2021-02-25 11:40 | DCPLANNER ---
chemical manager had message to schedule an outpatient stress test for patient. chemical manager faxed signed order to centralized scheduling, who will call patient with appointment information.
--- NOTE | 2021-04-03 15:26 | DCPLANNER ---
Patient had an outpatient stress test scheduled for 03.07.21 - patient did attend appointment.
== END 2021-02-21 11:34 | disposition home or self-care (01) ==
PROVIDERS: Emergency Provider Family Medicine; PCP Family Medicine
DX: R07.89 Other chest pain (principal); I10 Essential (primary) hypertension; R00.2 Palpitations; D64.9 Anemia, unspecified; E11.9 Type 2 diabetes mellitus without complications; R10.9 Unspecified abdominal pain; Z79.02 Long term (current) use of antithrombotics/antiplatelets; Z79.82 Long term (current) use of aspirin; Z79.4 Long term (current) use of insulin; E78.5 Hyperlipidemia, unspecified
CPT/HCPCS: 36415; 71045; 74177; 80053; 81003; 83690; 84484; 85025; 93005; 99284; Q9967

== ENCOUNTER 2021-03-07 08:10 | Outpatient (CLI) | payer MEDICARE, OTHER, SELFPAY ==
--- NOTE | 2021-03-07 08:50 | ECG_ITS ---
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 Interpretive Statements NAME OF STUDY: LEXISCAN SESTAMIBI STRESS TEST INDICATION: [Chest Pain, ] Procedure: At the baseline, the blood pressure was 154/62 mmHg with a heart rate of 55 bpm. The electrocardiogram showed normal sinus rhythm, normal axis with normal ST and T's. The Lexiscan was infused over a period of 20 seconds. A total of 0.4 mg of Lexiscan was infused. The stress phase was continued for a total of 5 minutes. Heart rate was at the end of stress phase was 70 bpm and a blood pressure of 146/41 mmHg. The EKG at the peak infusion revealed since normal sinus rhythm with no significant ST-T wave changes. Sestamibi was injected 20 seconds after the Lexiscan infusion. Blood pressure at the end of recovery phase was 154/59 mmHg with a heart rate of 58 bpm. Conclusion: 1. Normal EKG response to Lexiscan infusion 2. No Lexiscan induced chest pain or cardiac arrhythmia. 3. Normal blood pressure and heart rate response. 4. Sestamibi/sestamibi perfusion scan pending; see separate report. Electronically Signed On 03-31-2021 10:51:59 INDUSTRIAL REHABILITATION CONSULTANT by Jose Sumner M.D. [email or web address]
[2021-03-07 08:51] VITALS: BMI 33.3
--- NOTE | 2021-03-07 08:51 | NMCV_ITS ---
NM bryon perf SPECT r/s* [id number] Brandi Berg Age: 75 Gender: F : 1945 Exam Date: 03/07/2021 10:35 Ordering Phys: Maximiliano Morris DO Technologist: VIDHI Stone Exam Location: [facility] Indications: CHEST PAIN STRESS TEST [facility] IMAGE PROTOCOL Rest/Stress 1 Lexiscan Day Radiopharmaceutical Dose (mCi) Administration Site Administered by Rest: Tc-99m 10.9 IV VIDHI Stone Sestamibi Stress:Tc-99m 32.2 IV VIDHI Sandra Sestamibi Rest: 07-Mar-2021 60 Discovery 630 Stress: 07-Mar-2021 30 Discovery 630 0.4mg Lexiscan. Supine position only as patient was unable to lay prone. SPECT RESULTS Technical Quality: Excellent Raw Data Analysis: Normal Image Corrections: No attenuation or motion correction applied Summed Stress Score: 2 Summed Rest Score: 2 Summed Difference Score: 0 PERFUSION FINDINGS There is a small in size, fixed perfusion defect noted in the mid inferolateral wall. No evidence of ischemia FUNCTIONAL RESULTS (calculated via Gated SPECT) Stress Image LV EF (%): 62 Stress EDV (mL):102 TID: 1.24 Stress ESV (mL):39 FUNCTIONAL FINDINGS: There is normal left ventricular systolic function. Elevated TID ratio IMPRESSIONS 1. Abnormal myocarial perfusion imaging with prior infarct of the mid inferolateral wall. 2. Elevated TID ratio suggesting subendocardial ischemia vs multivessel coronary artery disease. Clinical correlation is required 3. LV systolic function is normal Jose Sumner MD (Electronically Signed) Final Date: 07 March 2021 16:25 S
[2021-03-07 11:21] VITALS: BP 143/46; PULSE 74
[2021-03-07] MEDS: regadenoson 0.4 Mg/5 ml Syringe IVP (11:21)
[2021-03-07] MEDS: aminophylline 25 mg/mL SDV 10 mL IVP (11:30)
== END 2021-03-07 08:11 | disposition home or self-care (01) ==
LOC: RAD 08:18 → CDL 08:19
PROVIDERS: PCP Family Medicine; Visit Provider Family Medicine
DX: R07.9 Chest pain, unspecified (principal)
CPT/HCPCS: 78452; 93017; A9500; J0280; J2785

== ENCOUNTER → 2021-03-24 14:42 | Outpatient (BNVA) | payer MEDICARE, OTHER, SELFPAY | PROVIDERS: PCP Family Medicine; Visit Provider Internal Medicine Cardiovascular Disease | DX: I50.33 Acute on chronic diastolic (congestive) heart failure (principal); R07.89 Other chest pain; R06.02 Shortness of breath | CPT/HCPCS: 80048; 83880 ==

== ENCOUNTER 2021-03-28 | Outpatient (CLI) | payer MEDICARE, OTHER, SELFPAY | END 2021-03-28 00:01 | disposition home or self-care (01) | LOC: CCL 09-29 09:24 | PROVIDERS: PCP Family Medicine; Visit Provider Internal Medicine Cardiovascular Disease | DX: R07.9 Chest pain, unspecified (principal) | CPT/HCPCS: 99214 ==

== ENCOUNTER 2021-04-19 05:20 | Emergency (ER) | payer MEDICARE, OTHER, SELFPAY ==
[2021-04-19] VITALS (7 sets, daily range): BP systolic 142–174; BP diastolic 49–76; PULSE 56–61; RESP 14–18; TEMP 36.8; O2SAT 92–98; BMI 33.9
--- NOTE | 2021-04-19 05:26 | XRR_ITS ---
PROCEDURE INFORMATION: Exam: XR Chest Exam date and time: 04/19/2021 5:26 AM Age: 75 years old Clinical indication: Chest pressure; Prior surgery; Surgery type: Coronary stent; Patient HX: Chest pain with posterior radiation. ; Additional info: Cp TECHNIQUE: Imaging protocol: XR of the chest. Views: 1 view. COMPARISON: CR XR chest 1V portable [id number] 02/21/2021 7:01 AM FINDINGS: Lungs: Unremarkable. No consolidation. Pleural spaces: Unremarkable. No pleural effusion. No pneumothorax. Heart/Mediastinum: Unremarkable. No cardiomegaly. Bones/joints: Unremarkable. XR/XR chest 1V portable [id number] IMPRESSION: No acute findings. Stable appearance of the chest compared with 02/21/2021. Radiation Dose CTDIVOL = (mGy): DLP = (mGy-cm)
--- NOTE | 2021-04-19 05:27 | ECG_ITS ---
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: : 1945 Requested By: Monty Miller Order Number: [id number] Reading MD: STEPH CHAUDHRY Measurements Intervals [place] Rate: 58 P: 213 [place]: 139 QRS: 210 QRSD: 100 T: 166 QT: 410 QTc: 406 Interpretive Statements ECTOPIC ATRIAL BRADYCARDIA POSSIBLE RIGHT VENTRICULAR HYPERTROPHY [SOME/ALL OF: PROMINENT R IN V1, LATE TRANSITION, RAD, JAMAR, SSS] Compared to ECG 02/21/2021 06:51:45 Bradycardia, nonsinus now present Atrial abnormality now present Sinus rhythm no longer present Electronically Signed On 04-21-2021 12:55:56 TRUST ADVISOR by STEPH CHAUDHRY [id number]
--- NOTE | 2021-04-19 05:42 | ED_ITS ---
Documented by User: Monty Briseno DO 04/19/21 05:53 HPI - Chest Pain General: Chief Complaint: Chest Pain Stated Complaint: CP Time Seen by Provider: 04/19/21 05:25 History of Present Illness: HPI narrative: 75-year-old female diabetic presenting with chest discomfort and palpitations since last evening. She has had similar bouts of discomfort on and off. She had a stress test 5 weeks ago that she states was abnormal. She has an echocardiogram set up for late April as an outpatient regarding that. She notes discomfort with palpitations, worsening somewhat with inspiration, since last evening. She denies fever or increased cough. She denies leg edema. In the ambulance she was given aspirin x4 and at least 2 nitroglycerin with no improvement. She states currently, she is not feeling the palpitations, but is still having some discomfort that radiates into her back. complaint: chest pain Pertinent past history: other Onset (ago): hour(s) Timing of current episode: still present Prior episodes: Yes Onset: during rest Pain location: substernal and epigastric Pain radiation: back Quality: aching Relieving factors: nothing Exacerbating factors: nothing Associated symptoms: Reports abdominal pain (Somewhat chronic), dyspnea, nausea and palpitations; Deny fever(s), leg edema or vomiting Treatment prior to arrival: aspirin and nitroglycerin Review of Systems Const: Denies: fever(s) Card: Reports: palpitations Resp: Reports: dyspnea GI: Reports: abdominal pain (Somewhat chronic) and nausea; Denies: vomiting PFS ED PFSH: Medical History (Updated 04/19/21 @ 08:50 by Maximiliano Morris DO) Acute cystitis Anemia, chronic disease 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 Left axis deviation. Normal MD and QRS duration. Intervertebral disc disorder with radiculopathy of lumbosacral region Psychiatric care Recurrent UTI Status post left heart catheterization Surgical History History of colonoscopy (~2018) History of coronary artery stent placement History of right knee surgery S/P appendectomy S/P hernia repair S/P hip replacement S/P hysterectomy Family History Family/Other Diabetes Other Cancer Social History Alcohol intake: never Household members: spouse Marital status: Current occupational status: retired History of recent travel: No Physical Exam Const: COMMON NORMALS: no acute distress, patient oriented x3 and alert GENERAL APPEARANCE: anxious and frail appearing (Mildly) NUTRITIONAL APPEARANCE: overweight ORIENTATION/CONSCIOUSNESS: Yes awake, Yes oriented to person, Yes oriented to place and Yes oriented to time HENMT: COMMON NORMALS: normocephalic HEAD & SCALP: normocephalic Eye: COMMON NORMALS: Equal, round and reactive pupils present PUPIL: Yes Equal, round and reactive pupils present Chest: COMMONS NORMALS: normal inspection of the chest CHEST: Yes tendern ess (Diffuse) Resp: COMMON NORMALS: normal respiratory effort, No use of accessory muscles and clear to auscultation bilaterally AUSCULTATION: clear to auscultation bilaterally Cardio: COMMON NORMALS: regular rate and regular rhythm RATE: regular rate RHYTHM: regular rhythm GI: COMMON NORMALS: Soft to palpation INSPECTION: Yes normal to inspection PALPATION: Yes Soft to palpation and Yes Tenderness to palpation present (GI) (Epigastric) Neuro: COMMON NORMALS: patient oriented x3 SENSORIUM/ORIENTATION: Yes alert, Yes oriented to person, Yes oriented to place and Yes oriented to time Course Vital Signs: Vital signs: Vital Signs Temperature 98.3 F 04/19/21 05:28 Pulse Rate 57 L 04/19/21 08:50 Respiratory Rate 17 04/19/21 08:50 Blood Pressure 158/76 04/19/21 08:50 Pulse Oximetry 92 04/19/21 08:50 MDM - Chest Pain MDM Narrative: Medical decision making narrative: EKG reveals a bradycardic rhythm, likely atrial ectopic given multiform P waves, without any acute ST change. Rate is 58. Chest x-ray is negative. Serum work-up is pending at this point. She is given a GI cocktail, as she had no improvement with nitroglycerin or aspirin, and has epigastric tenderness. She will be checked out to Dr. Morris at shift change to follow-up on laboratory findings and for appropriate disposition. Lab Data: Labs: Lab Results 04/19/21 04/19/21 04/19/21 05:25 05:25 05:25 WBC 7.5 10^3/uL 10^3/ uL (4.0-10.0) RBC 4.53 10^6/uL 10^6 /uL (4.1-5.3) Hgb 14.1 g/dL g/dL (11.5-15.3) Hct 42.7 % % (37.0-47.0) MCV 94.3 fl fl (81-99) MCH 31.1 pg pg (28.0-34.0) MCHC 33.0 g/dL g/dL (30.0-36.0) RDW 12.3 % % (12.1-15.1) Plt Count 170 10^3/cmm 10^3 /cmm (130-400) MPV 10.5 fL H fL (7.4-10.4) Neut % (Auto) 44.0 % % Lymph % (Auto) 43.4 % % [place] % (Auto) 9.4 % % Eos % (Auto) 2.4 % % Baso % (Auto) 0.5 % % Neut # (Auto) 3.28 10^3/uL 10^3 /uL (1.8-7.7) Lymph # (Auto) 3.2 10^3/uL 10^3/ uL (0.8-4.8) [place] # (Auto) 0.7 10^3/uL 10^3/ uL (0.2-0.9) Eos # (Auto) 0.2 10^3/uL 10^3/ uL (0.0-0.8) Baso # (Auto) 0.0 10^3/uL 10^3/ uL (0.0-0.1) Nucleated RBC % (a uto) 0 % % Nucleated RBCs # 0.0 /100WBC /100W BC Sodium 138 mmol/L mmol/L (136-145) Potassium 4.4 mmol/L mmol/L (3.5-5.1) Chloride 100 mmol/L mmol/L (98-107) Carbon Dioxide 27 mmol/L mmol/L (22-29) Anion Gap 15.4 (5-19) BUN 9 mg/dL mg/dL (8-23) Creatinine 0.6 mg/dL mg/dL (0.5-0.9) GFR Calculation Not Reportable Glucose 166 mg/dL H mg/dL (65-115) Calculated Osmolal ity 288 mOsm/kg mOsm/ kg (285-295) Calcium 9.9 mg/dL mg/dL (8.5-10.5) Total Bilirubin 0.3 mg/dL mg/dL (0.15-1.2) AST 29 U/L U/L (0-32) ALT 35 U/L H U/L (0-33) Alkaline Phosphata se 127 IU/L H IU/L (35-105) Troponin T Baselin e 10 ng/L ng/L (0-10) Troponin T 120 Min [place] Troponin T NT-Pro-B Natriuret Pep 338 pg/mL pg/mL (0-450) Total Protein 6.5 g/dL L g/dL (6.6-8.7) Albumin 4.4 g/dL g/dL (3.5-5.2) Globulin 2.1 g/dL g/dL (1.3-4.6) Lipase 04/19/21 04/19/21 05:25 07:30 WBC RBC Hgb Hct MCV MCH MCHC RDW Plt Count MPV Neut % (Auto) Lymph % (Auto) [place] % (Auto) Eos % (Auto) Baso % (Auto) Neut # (Auto) Lymph # (Auto) [place] # (Auto) Eos # (Auto) Baso # (Auto) Nucleated RBC % (a uto) Nucleated RBCs # Sodium Potassium Chloride Carbon Dioxide Anion Gap BUN Creatinine GFR Calculation Glucose Calculated Osmolal ity Calcium Total Bilirubin AST ALT Alkaline Phosphata se Troponin T Baselin e Troponin T 120 Min [place] 8.13 ng/L ng/L (0-10) [place] Troponin T -1.87 ABS# L ABS# (0-10) NT-Pro-B Natriuret Pep Total Protein Albumin Globulin Lipase 14 U/L U/L (13-60) Discharge Plan Discharge Patient Disposition: Home Clinical Impression: Chest pain, atypical, Heart palpitations Condition: Stable Prescriptions: No Action omeprazole 40 mg capsule,delayed release(DR/EC) 40 mg PO BID RF: 0 ondansetron HCl [Zofran] 4 mg tablet 4 mg PO Q6H PRN (Reason: nausea and vomiting) RF: 0 dicyclomine 10 mg capsule 10 mg PO QID RF: 0 lactulose 10 gram/15 mL solution 15 ml PO DAILY@12 RF: 0 metoprolol succinate 25 mg tablet extended release 24 hr 25 mg PO BID RF: 0 polyethylene glycol 3350 [Miralax] 17 gram/dose powder 17 g PO DAILY RF: 0 isosorbide mononitrate 120 mg tablet extended release 24 hr 120 mg PO DAILY 90 Days Qty: 90 RF: 0 potassium chloride 8 mEq capsule, extended release 8 meq PO DAILY 30 Days Qty: 30 RF: 5 cholecalciferol (vitamin D3) 1,000 unit capsule 1,000 unit PO QPM RF: 0 cranberry 500 mg capsule 500 mg PO DAILY@12 RF: 0 Lactobacillus acidophilus [Acidophilus] Capsule 1 cap PO QAM RF: 0 ferrous sulfate 325 mg (65 mg iron) tablet 325 mg PO DAILY@12 RF: 0 magnesium oxide 400 mg (241.3 mg magnesium) tablet 500 mg PO DAILY@12 RF: 0 losartan 100 mg tablet 100 mg PO DAILY@12 Qty: 90 RF: 3 atorvastatin 40 mg tablet 40 mg PO BEDTIME RF: 0 Senna-S 8.6-50 mg Tablet See Rx Instructions .ROUTE .COMPLEX RF: 0 hydrocodone-acetaminophen 7.5-325 mg tablet 1 tab PO QID PRN (Reason: Pain) RF: 0 Tresiba FlexTouch U-200 200 unit/mL (3 mL) insulin pen 15 unit SUBCUT DAILY RF: 0 Vitamin C Gummies 3 tab PO DAILY@12 RF: 0 citalopram 40 mg tablet 40 mg PO QAM RF: 0 clopidogrel 75 mg tablet 75 mg PO QPM RF: 0 Seroquel 100 mg tablet 100 mg PO BEDTIME RF: 0 hydrocortisone 10 mg tablet 20 mg PO BID@07,12 RF: 0 Discharge Orders: Discharge ED (Routine); Ordered 04/19/21 Ordered By: Maximiliano Morris Referrals: Arabella Orta MD [Primary Care Provider] - Discharge Diet: Usual diet Discharge Activity: Limit activity as instructed Patient Instructions: Opioid Safety Activity Restrictions/Additional Instructions: operations research group manager will call to make arrangements for a 48-hour Holter monitor. Return if you have further problems call Dr. Cai's office for follow-up next week. Sign Out Sign Out Data: Patient Sign Out occurred on 04/19/21 at 07:03. Patient's care was discussed, and care was transferred from to Maximiliano Morris DO. 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 Left axis deviation. Normal MD and QRS duration. Intervertebral disc disorder with radiculopathy of lumbosacral region Psychiatric care Recurrent UTI Status post left heart catheterization Surgical History History of colonoscopy (~2017) History of coronary artery stent placement History of right knee surgery S/P appendectomy S/P hernia repair S/P hip replacement S/P hysterectomy Family History Family/Other Diabetes Other Cancer Social History Alcohol intake: never Household members: spouse Marital status: Current occupational status: retired History of recent travel: No Course Vital Signs: Vital signs: Vital Signs Temperature 98.3 F 04/19/21 05:28 Pulse Rate 57 L 04/19/21 08:50 Respiratory Rate 17 04/19/21 08:50 Blood Pressure 158/76 04/19/21 08:50 Pulse Oximetry 92 11/27/21 08:50 MDM - Chest Pain MDM Narrative: Medical decision making narrative: Care assumed a change of shift. Notes reviewed. Patient noted questionable stress test is scheduled to get an echocardiogram. She is a Lexiscan stress sestamibi stress test every year for the last 3 years now. She also had an angiogram done in 2019 when she showed some disease in the RCA. She has been having chest pain for over 12 hours now and is a normal troponin and unchanged EKG. She is already maxed out on isosorbide mononitrate. Chest discomfort he is having now is worsened with palpation of the breath. She was having some palpitations as well. Vertigo and discharge her home as her cardiac enzymes and EKG are unremarkable she can retur n if she has further problems we will set her up for a 48-hour Holter interval follow-up with Dr. Cai next week. Lab Data: Labs: Lab Results 04/19/21 04/19/21 04/19/21 05:25 05:25 05:25 WBC 7.5 10^3/uL 10^3/ uL (4.0-10.0) RBC 4.53 10^6/uL 10^6 /uL (4.1-5.3) Hgb 14.1 g/dL g/dL (11.5-15.3) Hct 42.7 % % (37.0-47.0) MCV 94.3 fl fl (81-99) MCH 31.1 pg pg (28.0-34.0) MCHC 33.0 g/dL g/dL (30.0-36.0) RDW 12.3 % % (12.1-15.1) Plt Count 170 10^3/cmm 10^3 /cmm (130-400) MPV 10.5 fL H fL (7.4-10.4) Neut % (Auto) 44.0 % % Lymph % (Auto) 43.4 % % [place] % (Auto) 9.4 % % Eos % (Auto) 2.4 % % Baso % (Auto) 0.5 % % Neut # (Auto) 3.28 10^3/uL 10^3 /uL (1.8-7.7) Lymph # (Auto) 3.2 10^3/uL 10^3/ uL (0.8-4.8) [place] # (Auto) 0.7 10^3/uL 10^3/ uL (0.2-0.9) Eos # (Auto) 0.2 10^3/uL 10^3/ uL (0.0-0.8) Baso # (Auto) 0.0 10^3/uL 10^3/ uL (0.0-0.1) Nucleated RBC % (a uto) 0 % % Nucleated RBCs # 0.0 /100WBC /100W BC Sodium 138 mmol/L mmol/L (136-145) Potassium 4.4 mmol/L mmol/L (3.5-5.1) Chloride 100 mmol/L mmol/L (98-107) Carbon Dioxide 27 mmol/L mmol/L (22-29) Anion Gap 15.4 (5-19) BUN 9 mg/dL mg/dL (8-23) Creatinine 0.6 mg/dL mg/dL (0.5-0.9) GFR Calculation Not Reportable Glucose 166 mg/dL H mg/dL (65-115) Calculated Osmolal ity 288 mOsm/kg mOsm/ kg (285-295) Calcium 9.9 mg/dL mg/dL (8.5-10.5) Total Bilirubin 0.3 mg/dL mg/dL (0.15-1.2) AST 29 U/L U/L (0-32) ALT 35 U/L H U/L (0-33) Alkaline Phosphata se 127 IU/L H IU/L (35-105) Troponin T Baselin e 10 ng/L ng/L (0-10) Troponin T 120 Min [place] Troponin T NT-Pro-B Natriuret Pep 338 pg/mL pg/mL (0-450) Total Protein 6.5 g/dL L g/dL (6.6-8.7) Albumin 4.4 g/dL g/dL (3.5-5.2) Globulin 2.1 g/dL g/dL (1.3-4.6) Lipase 04/19/21 04/19/21 05:25 07:30 WBC RBC Hgb Hct MCV MCH MCHC RDW Plt Count MPV Neut % (Auto) Lymph % (Auto) [place] % (Auto) Eos % (Auto) Baso % (Auto) Neut # (Auto) Lymph # (Auto) [place] # (Auto) Eos # (Auto) Baso # (Auto) Nucleated RBC % (a uto) Nucleated RBCs # Sodium Potassium Chloride Carbon Dioxide Anion Gap BUN Creatinine GFR Calculation Glucose Calculated Osmolal ity Calcium Total Bilirubin AST ALT Alkaline Phosphata se Troponin T Baselin e Troponin T 120 Min [place] 8.13 ng/L ng/L (0-10) [place] Troponin T -1.87 ABS# L ABS# (0-10) NT-Pro-B Natriuret Pep Total Protein Albumin Globulin Lipase 14 U/L U/L (13-60) Discharge Plan Discharge Patient Disposition: Home Clinical Impression: Chest pain, atypical, Heart palpitations Condition: Stable Prescriptions: No Action omeprazole 40 mg capsule,delayed release(DR/EC) 40 mg PO BID RF: 0 ondansetron HCl [Zofran] 4 mg tablet 4 mg PO Q6H PRN (Reason: nausea and vomiting) RF: 0 dicyclomine 10 mg capsule 10 mg PO QID RF: 0 lactulose 10 gram/15 mL solution 15 ml PO DAILY@12 RF: 0 metoprolol succinate 25 mg tablet extended release 24 hr 25 mg PO BID RF: 0 polyethylene glycol 3350 [Miralax] 17 gram/dose powder 17 g PO DAILY RF: 0 isosorbide mononitrate 120 mg tablet extended release 24 hr 120 mg PO DAILY 90 Days Qty: 90 RF: 0 potassium chloride 8 mEq capsule, extended release 8 meq PO DAILY 30 Days Qty: 30 RF: 5 cholecalciferol (vitamin D3) 1,000 unit capsule 1,000 unit PO QPM RF: 0 cranberry 500 mg capsule 500 mg PO DAILY@12 RF: 0 Lactobacillus acidophilus [Acidophilus] Capsule 1 cap PO QAM RF: 0 ferrous sulfate 325 mg (65 mg iron) tablet 325 mg PO DAILY@12 RF: 0 magnesium oxide 400 mg (241.3 mg magnesium) tablet 500 mg PO DAILY@12 RF: 0 losartan 100 mg tablet 100 mg PO DAILY@12 Qty: 90 RF: 3 atorvastatin 40 mg tablet 40 mg PO BEDTIME RF: 0 Senna-S 8.6-50 mg Tablet See Rx Instructions .ROUTE .COMPLEX RF: 0 hydrocodone-acetaminophen 7.5-325 mg tablet 1 tab PO QID PRN (Reason: Pain) RF: 0 Tresiba FlexTouch U-200 200 unit/mL (3 mL) insulin pen 15 unit SUBCUT DAILY RF: 0 Vitamin C Gummies 3 tab PO DAILY@12 RF: 0 citalopram 40 mg tablet 40 mg PO QAM RF: 0 clopidogrel 75 mg tablet 75 mg PO QPM RF: 0 Seroquel 100 mg tablet 100 mg PO BEDTIME RF: 0 hydrocortisone 10 mg tablet 20 mg PO BID@07,12 RF: 0 Discharge Orders: Discharge ED (Routine); Ordered 04/19/21 Ordered By: Maximiliano Morris Referrals: Arabella Orta MD [Primary Care Provider] - Discharge Diet: Usual diet Discharge Activity: Limit activity as instructed Patient Instructions: Opioid Safety Activity Restrictions/Additional Instructions: operations research group manager will call to make arrangements for a 48-hour Holter monitor. Return if you have further problems call Dr. Cai's office for follow-up next week. Sign Out Sign Out Data: Patient Sign Out occurred on 04/19/21 at 07:03. Patient's care was discussed, and care was transferred from to Maximiliano Morris DO. Coding Level of Care Code ED Field Crew Chief for Chg Fwd Exam Detailed
[2021-04-19 05:44] LABS: Basophils % 0.5 %; Eosinophils # 0.2 10^3/uL (0.0-0.8); Eosinophils % 2.4 %; Hematocrit 42.7 % (37.0-47.0); Hemoglobin 14.1 g/dL (11.5-15.3); Lymphocytes # 3.2 10^3/uL (0.8-4.8); Lymphocytes % 43.4 %; Mean Corpuscular Hemoglobin 31.1 pg (28.0-34.0); Mean Corpuscular Volume 94.3 fl (81-99); Mean Platelet Volume 10.5 fL (7.4-10.4); Monocytes # 0.7 10^3/uL (0.2-0.9); Monocytes % 9.4 %; Neutrophils # 3.28 10^3/uL (1.8-7.7); Nucleated Red Blood Cells % 0 %; Platelet Count 170 10^3/cmm (130-400); Red Blood Count 4.53 10^6/uL (4.1-5.3); Red Cell Distribution Width 12.3 % (12.1-15.1); White Blood Count 7.5 10^3/uL (4.0-10.0)
[2021-04-19] MEDS: lidocaine 2% viscous 15 ML, aluminum-mag hydrox-simethicon 30 ML, sucralfate oral liq 1 GM PO (05:46)
[2021-04-19 06:02] LABS: Troponin(5th) Baseline 10 ng/L (0-10)
[2021-04-19 06:10] LABS: Alanine Aminotransferase 35 U/L (0-33); Albumin Level 4.4 g/dL (3.5-5.2); Alkaline Phosphatase 127 IU/L (35-105); Anion Gap 15.4 (5-19); Aspartate Amino Transferase 29 U/L (0-32); Blood Urea Nitrogen 9 mg/dL (8-23); Calcium 9.9 mg/dL (8.5-10.5); Carbon Dioxide 27 mmol/L (22-29); Chloride 100 mmol/L (98-107); Globulin 2.1 g/dL (1.3-4.6); Glucose 166 mg/dL (65-115); NT Pro B Type Natriuretic Pept 338 pg/mL (0-450); Osmolality Calculated 288 mOsm/kg (285-295); Potassium 4.4 mmol/L (3.5-5.1); Sodium 138 mmol/L (136-145); Total Bilirubin 0.3 mg/dL (0.15-1.2); Total Protein 6.5 g/dL (6.6-8.7)
--- NOTE | 2021-04-19 07:16 | PC.NURSE ---
Pt on the damage assessor upon this RN assuming care. This RN notices EKG changes on the monitor and does EKG and provides it to ERP.
[2021-04-19 07:27] LABS: Lipase 14 U/L (13-60)
--- NOTE | 2021-04-19 07:27 | ECG_ITS ---
[facility] Test Date: 2021-04-19 Pat Name: Brandi Berg Department: Room: Gender: Female Outside Machinist: : 1945 Requested By: Monty Miller Order Number: [id number] Gamal MD: STEPH CHAUDHRY Measurements Intervals [place] Rate: 81 P: [place]: QRS: -27 QRSD: 92 T: 4 QT: 380 QTc: 443 Interpretive Statements ATRIAL FIBRILLATION BORDERLINE LEFT AXIS DEVIATION [QRS AXIS < -20] MODERATE VOLTAGE CRITERIA FOR LVH, CONSIDER NORMAL VARIANT [MEETS CRITERIA IN ONE OF: R(aVL), S(V1), R(V5), R(V5/V6)+S(V1)] ABNORMAL RHYTHM ECG Compared to ECG 02/21/2021 06:51:45 Sinus rhythm no longer present Electronically Signed On 04-21-2021 13:01:40 CONCRETE VIBRATOR OPERATOR by STEPH CHAUDHRY [email or web address]
[2021-04-19 08:25] LABS: Troponin 5 2HR 8.13 ng/L (0-10); Troponin 5 2HR Delta -1.87 ABS# (0-10)
--- NOTE | 2021-04-23 05:34 | DCPLANNER ---
market development manager had message to schedule an outpatient 48 hour halter monitor for patient. market development manager faxed signed order to [facility], who will call patient with appointment information.
--- NOTE | 2021-04-25 08:42 | DCPLANNER ---
Patient has a 48 hour halter monitor scheduled for Thursday, April 29, 2021 at 2:00. [facility] will call patient with appointment information.
--- NOTE | 2021-05-16 10:56 | DCPLANNER ---
Patient had a 48 hour halter monitor scheduled - appointment was cancelled.
== END 2021-04-19 09:10 | disposition home or self-care (01) ==
PROVIDERS: Emergency Medicine; Emergency Provider Family Medicine; PCP Family Medicine
DX: R07.89 Other chest pain (principal); R00.2 Palpitations; Z79.02 Long term (current) use of antithrombotics/antiplatelets; Z79.4 Long term (current) use of insulin; I25.10 Atherosclerotic heart disease of native coronary artery without angina pectoris; I10 Essential (primary) hypertension; E78.5 Hyperlipidemia, unspecified
CPT/HCPCS: 71045; 80053; 83690; 83880; 84484; 85025; 93005; 99284

== ENCOUNTER 2021-04-29 06:00 | Outpatient (RCR) | payer MEDICARE, OTHER, SELFPAY | END 2021-05-23 23:59 | disposition home or self-care (01) | LOC: SPT 06:00 | PROVIDERS: PCP Family Medicine; Referring Provider Family Medicine; Visit Provider Family Medicine | DX: R42 Dizziness and giddiness (principal) | CPT/HCPCS: 95992; 97162 ==

== ENCOUNTER 2021-05-08 14:31 | Outpatient (CLI) | payer MEDICARE, OTHER, SELFPAY ==
--- NOTE | 2021-05-08 14:41 | USCV_ITS ---
MorenaDbmargo Age: 76 Gender: F : 1945 Exam Date: 05/08/2021 15:05 Ordering Phys: Gilma Cai MD ([email or web address]) Technologist: Alan Moreno Exam Location: [facility] [place] Indication: DYSPNEA BP: 170 / 90 HR: 66 Rhythm: Sinus Technical Quality: Adequate MEASUREMENTS (Male / Female) Normal Values 2D ECHO LV Diastolic Diameter PLAX 3.5 cm 4.2 - 5.9 / 3.9 - 5.3 cm LV Systolic Diameter PLAX 2.5 cm IVS Diastolic Thickness 1.9 cm 0.6 - 1.0 / 0.6 - 0.9 cm IVS Systolic Thickness 1.9 cm LVPW Diastolic Thickness 1.5 cm 0.6 - 1.0 / 0.6 - 0.9 cm LVPW Systolic Thickness 2.0 cm LVOT Diameter 2.0 cm LV Ejection Fraction 2D Teich 55.7 % LV Ejection Fraction MOD 2C 53.5 % LV Ejection Fraction 2C AL 57.4 % LA Diameter 3.2 cm LA Width 3.5 cm LA Height 4.6 cm RA Width 3.7 cm RA Height 5.0 cm Aorta at Sinotubular Diameter 2.0 cm M-MODE Aortic Annulus Diameter 2.7 cm LA Ao Ratio MM 1.3 MV E Point Septal Separation 0.5 cm DOPPLER AV Peak Velocity 140.0 cm/s LVOT Peak Velocity 92.3 cm/s AV Area Cont Eq vti 2.3 cm squared AV Area Cont Eq pk 2.1 cm squared MV Area PHT 4.9 cm squared Mitral E to A Ratio 1.0 MV E' Velocity 36.0 cm/s Mitral E to MV E' Ratio 9.2 Mitral E to LV E' Lateral Ratio 9.0 Mitral E to LV E' Septal Ratio 9.5 TR Peak Velocity 279.3 cm/s TR Peak Gradient 31.2 mmHg TR Mean Velocity 235.7 cm/s TR Mean Gradient 22.7 mmHg TR Velocity Time Integral 75.6 cm Right Atrial Pressure 3.0 mmHg Pulmonary Artery Systolic Pressu 34.2 mmHg RV Acceleration Time 0.1 s RV Ejection Time 0.3 s RV AcT/ET 0.2 FINDINGS Left Ventricle Normal left ventricular size and systolic function, EF 55 %. Mild left ventricular hypertrophy. No regional wall motion abnormalities. Right Ventricle The right ventricle is normal in size and function. Right Atrium The right atrium is normal in size. Left Atrium The left atrium is normal in size. Mitral Valve Trace mitral valve regurgitation. Aortic Valve Thickened aortic valve. Tricuspid Valve Trace tricuspid valve regurgitation. Pulmonic Valve Pulmonic valve not well visualized. Pericardium Normal pericardium without effusion. Aorta Plaque seen in the ascending aorta. CONCLUSIONS Normal left ventricular size and systolic function, EF 55 %. Mild left ventricular hypertrophy. No regional wall motion abnormalities. Thickened aortic and mitral valves. Trace of mitral and tricuspid regurgitation. There is no pericardial effusion. There are no intracardiac masses. Compared to the study from 05/02/2015, there is no wall motion abnormalities with the current study Dr Gilma Cai MD FACC (Electronically Signed) Final Date: 08 May 2021 21:02 S
== END 2021-05-08 14:32 | disposition home or self-care (01) ==
LOC: RAD 14:36
PROVIDERS: PCP Family Medicine; Visit Provider Internal Medicine Cardiovascular Disease
DX: R06.00 Dyspnea, unspecified (principal); R07.89 Other chest pain; I08.3 Combined rheumatic disorders of mitral, aortic and tricuspid valves; I50.33 Acute on chronic diastolic (congestive) heart failure; R06.02 Shortness of breath
CPT/HCPCS: 80048; 83880; 93306

== ENCOUNTER 2021-05-11 13:20 | Emergency (ER) | payer MEDICARE, OTHER, SELFPAY ==
--- NOTE | 2021-05-11 13:21 | XRR_ITS ---
PROCEDURE INFORMATION: Exam: XR Chest Exam date and time: 05/11/2021 1:21 PM Age: 76 years old Clinical indication: Pain; Chest pressure; Additional info: Cp TECHNIQUE: Imaging protocol: XR of the chest. Views: 1 view. COMPARISON: CR XR chest 1V portable [id number] 04/19/2021 5:27 AM FINDINGS: Lungs: Unremarkable. No consolidation. Pleural spaces: Unremarkable. No pleural effusion. No pneumothorax. Heart/Mediastinum: Unremarkable. No cardiomegaly. Bones/joints: Unremarkable. Similar findings seen comparing to prior examination XR/XR chest 1V portable [id number] IMPRESSION: No acute findings.
--- NOTE | 2021-05-11 13:21 | ECG_ITS ---
[facility] Test Date: 2021-05-11 Pat Name: Brandi Berg Department: Room: Gender: Female Wind Technician: : 1945 Requested By: Enrico Camejo Order Number: [id number] Reading MD: STEPH CHAUDHRY Measurements Intervals [place] Rate: 68 P: 4 [place]: 155 QRS: -31 QRSD: 93 T: 23 QT: 378 QTc: 403 Interpretive Statements SINUS RHYTHM LEFT AXIS DEVIATION [QRS AXIS < -30] MODERATE VOLTAGE CRITERIA FOR LVH, CONSIDER NORMAL VARIANT [MEETS CRITERIA IN ONE OF: R(aVL), S(V1), R(V5), R(V5/V6)+S(V1)] Compared to ECG 04/19/2021 07:13:14 Atrial fibrillation no longer present Electronically Signed On 05-11-2021 19:58:16 HOT BRAIDER by STEPH CHAUDHRY [id number]
--- NOTE | 2021-05-11 13:32 | ED_ITS ---
HPI - Chest Pain General: Chief Complaint: Chest Pain Stated Complaint: CHEST PAIN Time Seen by Provider: 05/11/21 13:21 Source: patient and EMS Mode of arrival: EMS Limitations: no limitations History of Present Illness: HPI narrative: 76-year-old female states she has been having chest pain for months. States that she had a recent echo last week that was negative states that started having chest pain again last night she states that sharp in nature rates it a 7 out of 10 currently. States in the center of her chest denies any worsening improving factors denies any cough denies any shortness of breath denies any fevers. Associated symptoms: Deny abdominal pain, dyspnea, fever(s), nausea or vomiting Review of Systems Const: Denies: fever(s), chills, body aches or change in appetite Eyes: Denies: blurry vision or eye discomfort ENMT: Denies: throat pain or dental pain Card: Reports: chest pain Resp: Denies: dyspnea GI: Denies: abdominal pain, nausea, vomiting or diarrhea : Denies: dysuria Musc: Denies: neck pain or back pain Skin/Breast: Denies: rash Neuro: Denies: headache(s) Psych: Denies: depression Gael/Lymph: Denies: easy bruising All/Imm: Denies: urticaria PFSH ED PFSH: Medical History Acute cystitis Anemia, chronic disease 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 Left axis deviation. Normal MN and QRS duration. Intervertebral disc disorder with radiculopathy of lumbosacral region Psychiatric care Recurrent UTI Status post left heart catheterization Surgical History History of colonoscopy (~2018) History of coronary artery stent placement History of right knee surgery S/P appendectomy S/P hernia repair S/P hip replacement S/P hysterectomy Family History Family/Other Diabetes Other Cancer Social History Alcohol intake: never Household members: spouse Marital status: Current occupational status: retired History of recent travel: No Physical Exam Const: COMMON NORMALS: no acute distress, patient oriented x3 and healthy appearing HENMT: COMMON NORMALS: normocephalic and atraumatic HEAD & SCALP: normocephalic and atraumatic Eye: COMMON NORMALS: Equal, round and reactive pupils present and EOMs intact bilaterally PUPIL: Yes Equal, round and reactive pupils present Neck/C-Spine: COMMON NORMALS: full ROM and supple Chest: COMMONS NORMALS: normal inspection of the chest and normal palpation of entire chest wall Resp: COMMON NORMALS: normal respiratory effort, No retractions, No use of accessory muscles and clear to auscultation bilaterally AUSCULTATION: clear to auscultation bilaterally Cardio: COMMON NORMALS: regular rate, regular rhythm and No murmurs present (Cardio) RATE: regular rate RHYTHM: regular rhythm GI: COMMON NORMALS: Normal to inspection, nondistended, normoactive bowel sounds present, Soft to palpation, non-tender and no masses PALPATION: Yes Soft to palpation Extremity: COMMON NORMALS: normal to inspection and full ROM Neuro: COMMON NORMALS: patient oriented x3, moves all extremities and no focal motor deficits Psych: COMMON NORMALS: mental status grossly normal, Normal thought process present and cooperative THOUGHT PROCESS: Normal thought process present Skin: COMMON NORMALS: no rashes or lesions noted and no wounds GENERAL SKIN EXAM: no rashes or lesions noted Course Vital Signs: Vital signs: Vital Signs Temperature 97.0 F L 05/11/21 13:39 Pulse Rate 67 05/11/21 13:50 Respiratory Rate 17 05/11/21 13:50 Blood Pressure 192/70 05/11/21 13:50 Pulse Oximetry 94 05/11/21 13:50 MDM - Chest Pain MDM Narrative: Medical decision making narrative: Patient presents here with chest pains atypical in nature is been going on for 2 months she also had some palpitations with a heart rate here has been in the seventies both EKGs and troponins here are normal she has no signs of aortic dissection or pulmonary embolism patient is stable for discharge is to follow-up with Dr. Cai and return if worsening. She understands agrees to plan. Lab Data: Labs: Lab Results 05/11/21 05/11/21 05/11/21 13:06 13:06 13:06 WBC 6.3 10^3/uL 10^3/ uL (4.0-10.0) RBC 4.60 10^6/uL 10^6 /uL (4.1-5.3) Hgb 14.3 g/dL g/dL (11.5-15.3) Hct 43.3 % % (37.0-47.0) MCV 94.1 fl fl (81-99) MCH 31.1 pg pg (28.0-34.0) MCHC 33.0 g/dL g/dL (30.0-36.0) RDW 12.7 % % (12.1-15.1) Plt Count 172 10^3/cmm 10^3 /cmm (130-400) MPV 11.3 fL H fL (7.4-10.4) Neut % (Auto) 59.3 % % Lymph % (Auto) 31.9 % % Dukes % (Auto) 7.4 % % Eos % (Auto) 1.0 % % Baso % (Auto) 0.2 % % Neut # (Auto) 3.75 10^3/uL 10^3 /uL (1.8-7.7) Lymph # (Auto) 2.0 10^3/uL 10^3/ uL (0.8-4.8) Dukes # (Auto) 0.5 10^3/uL 10^3/ uL (0.2-0.9) Eos # (Auto) 0.1 10^3/uL 10^3/ uL (0.0-0.8) Baso # (Auto) 0.0 10^3/uL 10^3/ uL (0.0-0.1) Nucleated RBC % (a uto) 0 % % Nucleated RBCs # 0.0 /100WBC /100W BC Sodium 136 mmol/L mmol/L (136-145) Potassium 4.5 mmol/L mmol/L (3.5-5.1) Chloride 97 mmol/L L mmol/ L (98-107) Carbon Dioxide 24 mmol/L mmol/L (22-29) Anion Gap 19.5 H (5-19) BUN 17 mg/dL mg/dL (8-23) Creatinine 0.5 mg/dL mg/dL (0.5-0.9) GFR Calculation Not Reportable Glucose 285 mg/dL H mg/dL (65-115) Calculated Osmolal ity 294 mOsm/kg mOsm/ kg (285-295) Calcium 9.5 mg/dL mg/dL (8.5-10.5) Total Bilirubin 0.4 mg/dL mg/dL (0.15-1.2) AST 18 U/L U/L (0-32) ALT 25 U/L U/L (0-33) Alkaline Phosphata se 106 IU/L H IU/L (35-105) Troponin T Baselin e 8 ng/L ng/L (0-10) Troponin T 120 Min [place] Troponin T Total Protein 6.7 g/dL g/dL (6.6-8.7) Albumin 4.4 g/dL g/dL (3.5-5.2) Globulin 2.3 g/dL g/dL (1.3-4.6) 05/11/21 15:26 WBC RBC Hgb Hct MCV MCH MCHC RDW Plt Count MPV Neut % (Auto) Lymph % (Auto) Dukes % (Auto) Eos % (Auto) Baso % (Auto) Neut # (Auto) Lymph # (Auto) Dukes # (Auto) Eos # (Auto) Baso # (Auto) Nucleated RBC % (a uto) Nucleated RBCs # Sodium Potassium Chloride Carbon Dioxide Anion Gap BUN Creatinine GFR Calculation Glucose Calculated Osmolal ity Calcium Total Bilirubin AST ALT Alkaline Phosphata se Troponin T Baselin e Troponin T 120 [address] [place] 7.99 ng/L ng/L (0-10) Delta Troponin T -0.01 ABS# L ABS# (0-10) Total Protein Albumin Globulin Imaging Data^: CXR: Attestation: I personally reviewed and interpreted this imaging study as follows: Radiologist's impression: [facility] [address] [place] [address] XRay Report Signed Patient: Brandi Berg Unit #: [id number] : 1945 Age/Sex: 76 / F ADM Date: 05/11/21 Loc: ER Room/Bed: Attending Dr: Ordering Provider/Ordering MD: Enrico Camejo MD Date of Service: 05/11/21 Procedure(s): XR chest 1V portable [id number] Accession Number(s): [id number] Report Number: [id number] PROCEDURE INFORMATION: Exam: XR Chest Exam date and time: 05/11/2021 1:21 PM Age: 76 years old Clinical indication: Pain; Chest pressure; Additional info: Cp TECHNIQUE: Imaging protocol: XR of the chest. Views: 1 view. COMPARISON: CR XR chest 1V portable [id number] 04/19/2021 5:27 AM FINDINGS: Lungs: Unremarkable. No consolidation. Pleural spaces: Unremarkable. No pleural effusion. No pneumothorax. Heart/Mediastinum: Unremarkable. No cardiomegaly. Bones/joints: Unremarkable. Similar findings seen comparing to prior examination XR/XR chest 1V portable [id number] IMPRESSION: No acute findings. Dictated By: Shukri Douglass Signed By: Shukri Douglass Signed Date/Time: 1516 DD/ 1321 EKG Data^: EKG 1: Attestation: I personally reviewed and interpreted this EKG as follows: EKG interpretation date: 05/11/21 EKG interpretation time: 13:34 Interpretation: nsr hr [address] or t wave abnormalities qrs 93 qtc 395 EKG 2: Attestation: I personally reviewed and interpreted this EKG as follows: EKG interpretation date: 05/11/21 EKG interpretation time: 16:18 Interpretation: nsr hr [address] or t wave abnormalities qrs 101 qtc 415 Discharge Plan Discharge Patient Disposition: Home Clinical Impression: Chest pain Qualifiers: Chest pain type: unspecified Qualified Code(s): R07.9 - Chest pain, unspecified Condition: Stable Prescriptions: No Action omeprazole 40 mg capsule,delayed release(DR/EC) 40 mg PO BID RF: 0 ondansetron HCl [Zofran] 4 mg tablet 4 mg PO Q6H PRN (Reason: nausea and vomiting) RF: 0 dicyclomine 10 mg capsule 10 mg PO QID RF: 0 lactulose 10 gram/15 mL solution 15 ml PO DAILY@12 RF: 0 polyethylene glycol 3350 [Miralax] 17 gram/dose powder 17 g PO DAILY RF: 0 isosorbide mononitrate 120 mg tablet extended release 24 hr 120 mg PO DAILY 90 Days Qty: 90 RF: 0 cholecalciferol (vitamin D3) 1,000 unit capsule 1,000 unit PO QPM RF: 0 cranberry 500 mg capsule 500 mg PO DAILY@12 RF: 0 Lactobacillus acidophilus [Acidophilus] Capsule 1 cap PO QAM RF: 0 ferrous sulfate 325 mg (65 mg iron) tablet 325 mg PO DAILY@12 RF: 0 magnesium oxide 400 mg (241.3 mg magnesium) tablet 500 mg PO DAILY@12 RF: 0 promethazine 25 mg tablet 25 mg PO BID PRN (Reason: nausea and vomiting) RF: 0 carvedilol 25 mg tablet 25 mg PO BID 90 Days Qty: 180 RF: 3 losartan 100 mg tablet 100 mg PO DAILY@12 Qty: 90 RF: 3 hydrocortisone 20 mg tablet See Rx Instructions PO BID@07,12 Qty: 270 RF: 3 atorvastatin 40 mg tablet 40 mg PO BEDTIME RF: 0 Senna-S 8.6-50 mg Tablet See Rx Instructions .ROUTE .COMPLEX RF: 0 hydrocodone-acetaminophen 7.5-325 mg tablet 1 tab PO QID PRN (Reason: Pain) RF: 0 Vitamin C Gummies 3 tab PO DAILY@12 RF: 0 citalopram 40 mg tablet 40 mg PO QAM RF: 0 clopidogrel 75 mg tablet 75 mg PO QPM RF: 0 Seroquel 100 mg tablet 100 mg PO BEDTIME RF: 0 Tresiba FlexTouch U-200 200 unit/mL (3 mL) insulin pen 32 unit SUBCUT DAILY RF: 0 Discharge Orders: Discharge ED (Routine); Ordered 05/11/21 Ordered By: Enrico Camejo Referrals: Arabella Orta MD [Primary Care Provider] - Discharge Diet: Advance as tolerated Discharge Activity: Resume usual activity Patient Instructions: Chest Pain (ED) Coding Level of Care Code ED Operating Room Specialist for Chg Fwd Exam Comprehensive
[2021-05-11 13:39] VITALS: BP 187/75; PULSE 70; RESP 18; TEMP 36.1; O2SAT 98; BMI 34.1
[2021-05-11 13:41] LABS: Basophils % 0.2 %; Eosinophils # 0.1 10^3/uL (0.0-0.8); Hematocrit 43.3 % (37.0-47.0); Hemoglobin 14.3 g/dL (11.5-15.3); Lymphocytes % 31.9 %; Mean Corpuscular Hemoglobin 31.1 pg (28.0-34.0); Mean Corpuscular Volume 94.1 fl (81-99); Mean Platelet Volume 11.3 fL (7.4-10.4); Monocytes # 0.5 10^3/uL (0.2-0.9); Monocytes % 7.4 %; Neutrophils # 3.75 10^3/uL (1.8-7.7); Neutrophils % 59.3 %; Nucleated Red Blood Cells % 0 %; Platelet Count 172 10^3/cmm (130-400); Red Cell Distribution Width 12.7 % (12.1-15.1); White Blood Count 6.3 10^3/uL (4.0-10.0)
[2021-05-11 13:50] VITALS: BP 192/70; PULSE 67; RESP 17; O2SAT 94
[2021-05-11] MEDS: ondansetron 2 mg/ML SDV 2 mL 4 MG IVP (13:56)
[2021-05-11 13:59] LABS: Alanine Aminotransferase 25 U/L (0-33); Albumin Level 4.4 g/dL (3.5-5.2); Alkaline Phosphatase 106 IU/L (35-105); Anion Gap 19.5 (5-19); Aspartate Amino Transferase 18 U/L (0-32); Blood Urea Nitrogen 17 mg/dL (8-23); Calcium 9.5 mg/dL (8.5-10.5); Carbon Dioxide 24 mmol/L (22-29); Chloride 97 mmol/L (98-107); Creatinine Clr Calc Pharmacy 65.3209; Globulin 2.3 g/dL (1.3-4.6); Glucose 285 mg/dL (65-115); Osmolality Calculated 294 mOsm/kg (285-295); Potassium 4.5 mmol/L (3.5-5.1); Sodium 136 mmol/L (136-145); Total Bilirubin 0.4 mg/dL (0.15-1.2); Total Protein 6.7 g/dL (6.6-8.7)
[2021-05-11 14:04] LABS: Troponin(5th) Baseline 8 ng/L (0-10)
--- NOTE | 2021-05-11 15:21 | ECG_ITS ---
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1945 Requested By: Enrico Camejo Order Number: [id number] Reading MD: STEPH CHAUDHRY Measurements Intervals [place] Rate: 67 P: 30 CT: 152 QRS: -14 QRSD: 101 T: 45 QT: 399 QTc: 424 Interpretive Statements SINUS RHYTHM INCOMPLETE RIGHT BUNDLE BRANCH BLOCK [90+ ms QRS DURATION, TERMINAL R IN V1/V2, 40+ ms S IN I/aVL/V4/V5/V6] MINIMAL VOLTAGE CRITERIA FOR LVH, CONSIDER NORMAL VARIANT [MEETS CRITERIA IN ONE OF: R(aVL), S(V1), R(V5), R(V5/V6)+S(V1)] Compared to ECG 05/11/2021 13:34:53 Incomplete right bundle-branch block now present Left-axis deviation no longer present Electronically Signed On 05-11-2021 19:59:22 GALLEY HAND by STEPH CHAUDHRY [id number]
[2021-05-11 15:59] LABS: Troponin 5 2HR 7.99 ng/L (0-10)
[2021-05-11 16:01] LABS: Troponin 5 2HR Delta -0.01 ABS# (0-10)
[2021-05-11] MEDS: HYDROcodone-acetaminophen 7.5-325 mg Tablet 1 TAB PO (16:29)
[2021-05-11] MEDS: hyDRALAzine 20 mg/mL INJ 1 mL 10 MG IVP (16:32)
--- NOTE | 2021-05-13 10:54 | PC.SOCIAL ---
Ed Referral for Chest pain by Dr Camejo. Per Carmenza at [facility] scheduled for 05/27/2021 arrival time of 1:15pm. notified patient and she was a little concerned that it is 2 weeks out. Advised her to call [facility] to see if can get appointment moved up or to call her if a cancellation occurs. We discussed the chest pain she is having and she notes it to be constant. Per her report nitro wont help since it is constant.She will need to see if can be seen sooner at [facility] or return to ED if pain increases or she feels she needs to be seen sooner.
--- NOTE | 2021-05-15 15:33 | DCPLANNER ---
Patient had a follow up appointment scheduled for 05.14.21 with [facility] - patient did attend appointment.
== END 2021-05-11 16:49 | disposition home or self-care (01) ==
PROVIDERS: Emergency Provider Emergency Medicine; PCP Family Medicine
DX: R07.9 Chest pain, unspecified (principal); Z79.02 Long term (current) use of antithrombotics/antiplatelets; Z79.4 Long term (current) use of insulin; I25.10 Atherosclerotic heart disease of native coronary artery without angina pectoris; I10 Essential (primary) hypertension; E78.5 Hyperlipidemia, unspecified
CPT/HCPCS: 36415; 71045; 80053; 84484; 85025; 93005; 96374; 96375; 96376; 99284; 99291; J0360; J2405

== ENCOUNTER 2021-05-19 15:00 | Emergency (ER) | payer MEDICARE, OTHER, SELFPAY ==
[2021-05-19 15:07] VITALS: PULSE 77; RESP 18; TEMP 37; O2SAT 97; BMI 33.3
--- NOTE | 2021-05-19 15:08 | XR_ITS ---
WS: [id number] Portable AP upright chest, 05/19/2021 Clinical Data: chest pain Comparison: Portable chest, 05/11/2021. Findings: No nodules, masses or effusions are seen. The heart is normal. The pulmonary vascularity is not increased. No pneumonia or pneumothorax is seen. The aortic arch and descending thoracic aorta s how minimal tortuosity. XR/XR chest 1V portable [id number] Impression: Atherosclerosis.
--- NOTE | 2021-05-19 15:09 | ECG_ITS ---
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 Measurements Intervals [place] Rate: 73 P: 180 SD: 156 QRS: 217 QRSD: 91 T: 170 QT: 376 QTc: 415 Interpretive Statements ECTOPIC ATRIAL RHYTHM LIMD LEAD REVERSAL POSSIBLE RIGHT VENTRICULAR HYPERTROPHY [SOME/ALL OF: PROMINENT R IN V1, LATE TRANSITION, RAD, JAMAR, SSS] Compared to ECG 05/11/2021 16:18:59 Ectopic atrial rhythm now present Atrial abnormality now present Sinus rhythm no longer present Incomplete right bundle-branch block no longer present Electronically Signed On 05-19-2021 15:29:31 COLORMAN by Honey Smart M.D. [id number]
== END 2021-05-19 18:00 | disposition left against medical advice (07) ==
LOC: ER 15:03
PROVIDERS: Emergency Provider Family Medicine; PCP Family Medicine
DX: Z53.21 Procedure and treatment not carried out due to patient leaving prior to being seen by health care provider (principal)
CPT/HCPCS: 71045; 93005

== ENCOUNTER 2021-06-01 22:09 | Emergency (ER) | payer MEDICARE, OTHER, SELFPAY ==
[2021-06-01 22:17] VITALS: BP 183/87; PULSE 87; RESP 18; TEMP 36.3; O2SAT 100; BMI 34.1
--- NOTE | 2021-06-01 22:23 | ECG_ITS ---
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 Measurements Intervals [place] Rate: 81 P: 24 AK: 156 QRS: -40 QRSD: 97 T: 50 QT: 375 QTc: 438 Interpretive Statements SINUS RHYTHM LEFT AXIS DEVIATION [QRS AXIS < -30] POSSIBLE RIGHT VENTRICULAR CONDUCTION DELAY [RSR (QR) IN V1/V2] Compared to ECG 05/19/2021 15:17:25 Left-axis deviation now present Ectopic atrial rhythm no longer present Atrial abnormality no longer present Electronically Signed On 06-03-2021 5:05:10 DRYCLEANER by Honey Smart M.D. [email or web address] [email or web address]/[id number]
--- NOTE | 2021-06-01 22:23 | XRR_ITS ---
PROCEDURE INFORMATION: Exam: XR Chest Exam date and time: 06/01/2021 10:23 PM Age: 76 years old Clinical indication: Chest wall pain; Additional info: Chest pain TECHNIQUE: Imaging protocol: XR of the chest. Views: 1 view. COMPARISON: CR XR chest 1V portable [id number] 05/19/2021 3:21 PM FINDINGS: Lungs: Unremarkable. No consolidation. Pleural spaces: Unremarkable. No pleural effusion. No pneumothorax. Heart/Mediastinum: Unremarkable. No cardiomegaly. Bones/joints: Unremarkable. XR/XR chest 1V portable [id number] IMPRESSION: No acute findings.
--- NOTE | 2021-06-01 22:36 | ED_ITS ---
Documented by User: Montez Glynn 06/01/21 22:43 HPI - Chest Pain General: Chief Complaint: Chest Pain Stated Complaint: chest pain Time Seen by Provider: 06/01/21 22:10 Source: patient and EMS Mode of arrival: EMS History of Present Illness: HPI narrative: 76-year-old female presents emergency department chief complaint of having intermittent intermittent episodic chest pain noted to the center of her chest with radiation to the back is been ongoing for approximately 12 hours. Patient does report she has a known history of heart disease including one stent placed in which her coating machine feeder is currently working her up for need for stress test versus catheterization. Patient apparently has had intermittent episodes leading up to this in which she has been here multiple times patient reports that she has had no recent medication changes last reports last time she saw her coating machine feeder was of a couple of months ago which is try to get her scheduled for her upcoming tests. Patient recalls this is allegedly woke her up from rest today she was not doing any exertion or activity or movement upon this starting. She reports that she took a hydrocodone one of her chronic pain meds for the pain that seemed not to help. Patient upon EMS arrival was provided 2 nitroglycerin tablets as well as a full dose aspirin in which did not seem to improve her pain she reports with the pain she has no palpitations or shortness of breath. MD complaint: chest pain and chest discomfort Pertinent past history: coronary artery disease Timing of current episode: episodic, constant, daily, weekly, monthly and still present Prior episodes: Yes Onset: during rest, during exertion and awoke with symptoms Pain location: substernal and epigastric Pain radiation: back Severity: moderate Quality: sharp Relieving factors: nothing Exacerbating factors: nothing Associated symptoms: Deny abdominal pain, dyspnea, fever(s), nausea, palpitations or vomiting Review of Systems General: Reports: 10 or more systems reviewed and unremarkable except in HPI and below Const: Denies: fever(s), chills, fatigue or malaise Eyes: Denies: change in vision or blurry vision Card: Reports: chest pain; Denies: palpitations Resp: Denies: dyspnea or productive cough GI: Denies: abdominal pain, nausea or vomiting : Denies: flank pain Musc: Denies: extremity pain or extremity swelling Skin/Breast: Denies: rash or pruritus Neuro: Denies: headache(s) Psych: Denies: anxiety or depression Gael/Lymph: Denies: easy bleeding All/Imm: Denies: urticaria, throat swelling or facial swelling PFSH ED PFSH: Medical History Acute cystitis Anemia, chronic disease 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 Left axis deviation. Normal OR and QRS duration. Intervertebral disc disorder with radiculopathy of lumbosacral region Psychiatric care Recurrent UTI Status post left heart catheterization Surgical History History of colonoscopy (~2017) History of coronary artery stent placement History of right knee surgery S/P appendectomy S/P hernia repair S/P hip replacement S/P hysterectomy Family History Family/Other Diabetes Other Cancer Social History Alcohol intake: never Household members: spouse Marital status: Current occupational status: retired History of recent travel: No Physical Exam Narrative: EXAM NARRATIVE: Patient does not appear to be any obvious acute distress on event exam is however appears to be somewhat argumentative. Const: COMMON NORMALS: no acute distress, patient oriented x3 and healthy appearing HENMT: COMMON NORMALS: normocephalic and atraumatic HEAD & SCALP: normocephalic and atraumatic Eye: COMMON NORMALS: Equal, round and reactive pupils present and EOMs intact bilaterally PUPIL: Yes Equal, round and reactive pupils present Neck/C-Spine: COMMON NORMALS: full ROM, supple and no JVD Lymph: LYMPHATIC: no lymphadenopathy noted Chest: COMMONS NORMALS: normal inspection of the chest and normal palpation of entire chest wall Resp: COMMON NORMALS: normal respiratory effort, No retractions and clear to auscultation bilaterally EFFORT & INSPECTION: Yes able to speak in complete sentences and Yes symmetric chest movement AUSCULTATION: clear to au scultation bilaterally Cardio: COMMON NORMALS: no JVD, regular rate and regular rhythm RATE: regular rate RHYTHM: regular rhythm GI: COMMON NORMALS: Normal to inspection, nondistended, normoactive bowel sounds present, Soft to palpation and non-tender INSPECTION: Yes normal to inspection PALPATION: Yes Soft to palpation : COMMON NORMALS: Yes no CVA tenderness BLADDER/KIDNEY EXAM: Yes no CVA tenderness Back/Pelvis: COMMON NORMALS: no CVA tenderness Extremity: COMMON NORMALS: normal to inspection and full ROM Neuro: COMMON NORMALS: patient oriented x3, CN's II-XII intact bilaterally, moves all extremities and no focal motor deficits Psych: COMMON NORMALS: mental status grossly normal, Normal thought process present, cooperative and normal affect THOUGHT PROCESS: Normal thought process present Skin: COMMON NORMALS: no rashes or lesions noted GENERAL SKIN EXAM: no rashes or lesions noted Course ED course: Due to the patient's symptoms and condition lab work and imaging will be obtained patient on exam was quite argumentative reported she been in our facility multiple times in which nothing has been done for her pain or work-up of her heart. Advised the patient due to the current pandemic standings with limited bed availability that if there was true evidence of imminent cardiac issues she would be admitted including elevation of her cardiac troponins EKG changes or any other concerns by the practitioners. Upon this statement patient became quite argumentative with myself and staff I instructed the patient we will be practicing evidence-based medicine and will continue to follow and treat her as is if this is a cardiac condition. Currently waiting on lab work and imaging to be obtained IV will be established nitroglycerin will be provided to the patient as well as Tylenol as she has a headache from the nitro being provided previously by EMS. EKG does not reveal any obvious findings we will do serial EKGs and troponins. This patient will be signed out to Dr. Briseno at 2300. Vital Signs: Vital signs: Vital Signs Temperature 97.4 F L 06/01/21 22:17 Pulse Rate 87 06/01/21 22:17 Respiratory Rate 18 06/01/21 22:17 Blood Pressure 183/87 06/01/21 22:17 Pulse Oximetry 100 06/01/21 22:17 MDM - Chest Pain Lab Data: Labs: Lab Results 06/01/21 06/01/21 06/01/21 22:17 22:17 22:17 WBC 7.6 10^3/uL 10^3/ uL (4.0-10.0) RBC 4.42 10^6/uL 10^6 /uL (4.1-5.3) Hgb 13.9 g/dL g/dL (11.5-15.3) Hct 41.5 % % (37.0-47.0) MCV 93.9 fl fl (81-99) MCH 31.4 pg pg (28.0-34.0) MCHC 33.5 g/dL g/dL (30.0-36.0) RDW 12.3 % % (12.1-15.1) Plt Count 178 10^3/cmm 10^3 /cmm (130-400) MPV 10.7 fL H fL (7.4-10.4) Neut % (Auto) 58.2 % % Lymph % (Auto) 33.6 % % [place] % (Auto) 7.1 % % Eos % (Auto) 0.5 % % Baso % (Auto) 0.3 % % Neut # (Auto) 4.43 10^3/uL 10^3 /uL (1.8-7.7) Lymph # (Auto) 2.6 10^3/uL 10^3/ uL (0.8-4.8) [place] # (Auto) 0.5 10^3/uL 10^3/ uL (0.2-0.9) Eos # (Auto) 0.0 10^3/uL 10^3/ uL (0.0-0.8) Baso # (Auto) 0.0 10^3/uL 10^3/ uL (0.0-0.1) Nucleated RBC % (a uto) 0 % % Nucleated RBCs # 0.0 /100WBC /100W BC PT 13.20 SECONDS SEC ONDS (12.1-14.9) INR 0.98 (0.8-1.2) APTT 25.4 SECONDS SECO NDS (23.9-36.7) Sodium 134 mmol/L L mmol /L (136-145) Potassium 4.5 mmol/L mmol/L (3.5-5.1) Chloride 97 mmol/L L mmol/ L (98-107) Carbon Dioxide 24 mmol/L mmol/L (22-29) Anion Gap 17.5 (5-19) BUN 15 mg/dL mg/dL (8-23) Creatinine 0.7 mg/dL mg/dL (0.5-0.9) GFR Calculation Not Reportable Glucose 252 mg/dL H mg/dL (65-115) Calculated Osmolal ity 287 mOsm/kg mOsm/ kg (285-295) Calcium 9.6 mg/dL mg/dL (8.5-10.5) Total Bilirubin 0.2 mg/dL mg/dL (0.15-1.2) AST 19 U/L U/L (0-32) ALT 24 U/L U/L (0-33) Alkaline Phosphata se 148 IU/L H IU/L (35-105) Troponin T Baselin e Troponin T 120 Min [place] Troponin T NT-Pro-B Natriuret Pep 129 pg/mL pg/mL (0-450) Total Protein 6.2 g/dL L g/dL (6.6-8.7) Albumin 4.3 g/dL g/dL (3.5-5.2) Globulin 1.9 g/dL g/dL (1.3-4.6) Lipase 13 U/L U/L (13-60) 06/01/21 06/02/21 22:17 00:40 WBC RBC Hgb Hct MCV MCH MCHC RDW Plt Count MPV Neut % (Auto) Lymph % (Auto) [place] % (Auto) Eos % (Auto) Baso % (Auto) Neut # (Auto) Lymph # (Auto) [place] # (Auto) Eos # (Auto) Baso # (Auto) Nucleated RBC % (a uto) Nucleated RBCs # PT INR APTT Sodium Potassium Chloride Carbon Dioxide Anion Gap BUN Creatinine GFR Calculation Glucose Calculated Osmolal ity Calcium Total Bilirubin AST ALT Alkaline Phosphata se Troponin T Baselin e 9 ng/L ng/L (0-10) Troponin T 120 Min [place] 10.09 ng/L H ng/L (0-10) Delta Troponin T 1.09 ABS# ABS# (0-10) NT-Pro-B Natriuret Pep Total Protein Albumin Globulin Lipase Discharge Plan Discharge Patient Disposition: Home Clinical Impression: Chest pain Qualifiers: Chest pain type: unspecified Qualified Code(s): R07.9 - Chest pain, unspecified Condition: Stable Prescriptions: No Action omeprazole 40 mg capsule,delayed release(DR/EC) 40 mg PO BID RF: 0 ondansetron HCl [Zofran] 4 mg tablet 4 mg PO Q6H PRN (Reason: nausea and vomiting) RF: 0 dicyclomine 10 mg capsule 10 mg PO QID RF: 0 lactulose 10 gram/15 mL solution 15 ml PO DAILY@12 RF: 0 polyethylene glycol 3350 [Miralax] 17 gram/dose powder 17 g PO DAILY RF: 0 isosorbide mononitrate 120 mg tablet extended release 24 hr 120 mg PO DAILY 90 Days Qty: 90 RF: 0 cholecalciferol (vitamin D3) 1,000 unit capsule 1,000 unit PO QPM RF: 0 cranberry 500 mg capsule 500 mg PO DAILY@12 RF: 0 Lactobacillus acidophilus [Acidophilus] Capsule 1 cap PO QAM RF: 0 ferrous sulfate 325 mg (65 mg iron) tablet 325 mg PO DAILY@12 RF: 0 magnesium oxide 400 mg (241.3 mg magnesium) tablet 500 mg PO DAILY@12 RF: 0 promethazine 25 mg tablet 25 mg PO BID PRN (Reason: nausea and vomiting) RF: 0 carvedilol 25 mg tablet 25 mg PO BID 90 Days Qty: 180 RF: 3 valsartan 160 mg tablet 160 mg PO DAILY Qty: 90 RF: 3 hydrocortisone 20 mg tablet See Rx Instructions PO BID@07,12 Qty: 270 RF: 3 atorvastatin 40 mg tablet 40 mg PO BEDTIME RF: 0 Senna-S 8.6-50 mg Tablet See Rx Instructions .ROUTE .COMPLEX RF: 0 hydrocodone-acetaminophen 7.5-325 mg tablet 1 tab PO QID PRN (Reason: Pain) RF: 0 Vitamin C Gummies 3 tab PO DAILY@12 RF: 0 citalopram 40 mg tablet 40 mg PO QAM RF: 0 clopidogrel 75 mg tablet 75 mg PO QPM RF: 0 Seroquel 100 mg tablet 100 mg PO BEDTIME RF: 0 Tresiba FlexTouch U-200 200 unit/mL (3 mL) insulin pen 32 unit SUBCUT DAILY RF: 0 Discharge Orders: Discharge ED (Routine); Ordered 06/02/21 Ordered By: Monty Briseno Referrals: Arabella Orta MD [Primary Care Provider] - 1-3 days Gilma Cai MD [Physician] - 4-7 days Patient Instructions: Chest Pain (ED) Coding Level of Care Code ED 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 Comprehensive Documented by User: Monty Briseno DO 06/02/21 02:44 HPI - Chest Pain General: Chief Complaint: Chest Pain Stated Complaint: chest pain Time Seen by Provider: 06/01/21 22:10 PFSH ED PFSH: Medical History Acute cystitis Anemia, chronic disease 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 Left axis deviation. Normal OR and QRS duration. Intervertebral disc disorder with radiculopathy of lumbosacral region Psychiatric care Recurrent UTI Status post left heart catheterization Surgical History History of colonoscopy (~2018) History of coronary artery stent placement History of right knee surgery S/P appendectomy S/P hernia repair S/P hip replacement S/P hysterectomy Family History Family/Other Diabetes Other Cancer Social History Alcohol intake: never Household members: spouse Marital status: Current occupational status: retired History of recent travel: No Course Vital Signs: Vital signs: Vital Signs Temperature 97.4 F L 06/01/21 22:17 Pulse Rate 87 06/01/21 22:17 Respiratory Rate 18 06/01/21 22:17 Blood Pressure 183/87 06/01/21 22:17 Pulse Oximetry 100 06/01/21 22:17 MDM - Chest Pain MDM Narrative: Medical decision making narrative: 76-year-old female well- known to the emergency department. She presents with chest discomfort, and is checked out to me by the previous physician at shift change. We are awaiting her second troponin which remains normal, with a delta of 1. No change in her status. Looking back, she had a negative stress test in February 2021. She had an echo approximately 3 weeks ago showing an EF of 55% and no wall motion abnormalities. We will have her follow-up with cardiology as an outpatient. Lab Data: Labs: Lab Results 06/01/21 06/01/21 06/01/21 22:17 22:17 22:17 WBC 7.6 10^3/uL 10^3/ uL (4.0-10.0) RBC 4.42 10^6/uL 10^6 /uL (4.1-5.3) Hgb 13.9 g/dL g/dL (11.5-15.3) Hct 41.5 % % (37.0-47.0) MCV 93.9 fl fl (81-99) MCH 31.4 pg pg (28.0-34.0) MCHC 33.5 g/dL g/dL (30.0-36.0) RDW 12.3 % % (12.1-15.1) Plt Count 178 10^3/cmm 10^3 /cmm (130-400) MPV 10.7 fL H fL (7.4-10.4) Neut % (Auto) 58.2 % % Lymph % (Auto) 33.6 % % [place] % (Auto) 7.1 % % Eos % (Auto) 0.5 % % Baso % (Auto) 0.3 % % Neut # (Auto) 4.43 10^3/uL 10^3 /uL (1.8-7.7) Lymph # (Auto) 2.6 10^3/uL 10^3/ uL (0.8-4.8) [place] # (Auto) 0.5 10^3/uL 10^3/ uL (0.2-0.9) Eos # (Auto) 0.0 10^3/uL 10^3/ uL (0.0-0.8) Baso # (Auto) 0.0 10^3/uL 10^3/ uL (0.0-0.1) Nucleated RBC % (a uto) 0 % % Nucleated RBCs # 0.0 /100WBC /100W BC PT 13.20 SECONDS SEC ONDS (12.1-14.9) INR 0.98 (0.8-1.2) APTT 25.4 SECONDS SECO NDS (23.9-36.7) Sodium 134 mmol/L L mmol /L (136-145) Potassium 4.5 mmol/L mmol/L (3.5-5.1) Chloride 97 mmol/L L mmol/ L (98-107) Carbon Dioxide 24 mmol/L mmol/L (22-29) Anion Gap 17.5 (5-19) BUN 15 mg/dL mg/dL (8-23) Creatinine 0.7 mg/dL mg/dL (0.5-0.9) GFR Calculation Not Reportable Glucose 252 mg/dL H mg/dL (65-115) Calculated Osmolal ity 287 mOsm/kg mOsm/ kg (285-295) Calcium 9.6 mg/dL mg/dL (8.5-10.5) Total Bilirubin 0.2 mg/dL mg/dL (0.15-1.2) AST 19 U/L U/L (0-32) ALT 24 U/L U/L (0-33) Alkaline Phosphata se 148 IU/L H IU/L (35-105) Troponin T Baselin e Troponin T 120 Min [place] Troponin T NT-Pro-B Natriuret Pep 129 pg/mL pg/mL (0-450) Total Protein 6.2 g/dL L g/dL (6.6-8.7) Albumin 4.3 g/dL g/dL (3.5-5.2) Globulin 1.9 g/dL g/dL (1.3-4.6) Lipase 13 U/L U/L (13-60) 06/01/21 06/02/21 22:17 00:40 WBC RBC Hgb Hct MCV MCH MCHC RDW Plt Count MPV Neut % (Auto) Lymph % (Auto) [place] % (Auto) Eos % (Auto) Baso % (Auto) Neut # (Auto) Lymph # (Auto) [place] # (Auto) Eos # (Auto) Baso # (Auto) Nucleated RBC % (a uto) Nucleated RBCs # PT INR APTT Sodium Potassium Chloride Carbon Dioxide Anion Gap BUN Creatinine GFR Calculation Glucose Calculated Osmolal ity Calcium Total Bilirubin AST ALT Alkaline Phosphata se Troponin T Baselin e 9 ng/L ng/L (0-10) Troponin T 120 Min [place] 10.09 ng/L H ng/L (0-10) [place] Troponin T 1.09 ABS# ABS# (0-10) NT-Pro-B Natriuret Pep Total Protein Albumin Globulin Lipase Discharge Plan Discharge Patient Disposition: Home Clinical Impression: Chest pain Qualifiers: Chest pain type: unspecified Qualified Code(s): R07.9 - Chest pain, unspecified Condition: Stable Prescriptions: No Action omeprazole 40 mg capsule,delayed release(DR/EC) 40 mg PO BID RF: 0 ondansetron HCl [Zofran] 4 mg tablet 4 mg PO Q6H PRN (Reason: nausea and vomiting) RF: 0 dicyclomine 10 mg capsule 10 mg PO QID RF: 0 lactulose 10 gram/15 mL solution 15 ml PO DAILY@12 RF: 0 polyethylene glycol 3350 [Miralax] 17 gram/dose powder 17 g PO DAILY RF: 0 isosorbide mononitrate 120 mg tablet extended release 24 hr 120 mg PO DAILY 90 Days Qty: 90 RF: 0 cholecalciferol (vitamin D3) 1,000 unit capsule 1,000 unit PO QPM RF: 0 cranberry 500 mg capsule 500 mg PO DAILY@12 RF: 0 Lactobacillus acidophilus [Acidophilus] Capsule 1 cap PO QAM RF: 0 ferrous sulfate 325 mg (65 mg iron) tablet 325 mg PO DAILY@12 RF: 0 magnesium oxide 400 mg (241.3 mg magnesium) tablet 500 mg PO DAILY@12 RF: 0 promethazine 25 mg tablet 25 mg PO BID PRN (Reason: nausea and vomiting) RF: 0 carvedilol 25 mg tablet 25 mg PO BID 90 Days Qty: 180 RF: 3 valsartan 160 mg tablet 160 mg PO DAILY Qty: 90 RF: 3 hydrocortisone 20 mg tablet See Rx Instructions PO BID@07,12 Qty: 270 RF: 3 atorvastatin 40 mg tablet 40 mg PO BEDTIME RF: 0 Senna-S 8.6-50 mg Tablet See Rx Instructions .ROUTE .COMPLEX RF: 0 hydrocodone-acetaminophen 7.5-325 mg tablet 1 tab PO QID PRN (Reason: Pain) RF: 0 Vitamin C Gummies 3 tab PO DAILY@12 RF: 0 citalopram 40 mg tablet 40 mg PO QAM RF: 0 clopidogrel 75 mg tablet 75 mg PO QPM RF: 0 Seroquel 100 mg tablet 100 mg PO BEDTIME RF: 0 Tresiba FlexTouch U-200 200 unit/mL (3 mL) insulin pen 32 unit SUBCUT DAILY RF: 0 Discharge Orders: Discharge ED (Routine); Ordered 06/02/21 Ordered By: Monty Briseno Referrals: Arabella Orta MD [Primary Care Provider] - 1-3 days Gilma Cai MD [Physician] - 4-7 days Patient Instructions: Chest Pain (ED) Coding Level of Care Code ED 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 Fwd Exam Comprehensive
[2021-06-01 22:41] LABS: Basophils % 0.3 %; Eosinophils % 0.5 %; Hematocrit 41.5 % (37.0-47.0); Hemoglobin 13.9 g/dL (11.5-15.3); Lymphocytes # 2.6 10^3/uL (0.8-4.8); Lymphocytes % 33.6 %; Mean Corpuscular HGB Conc 33.5 g/dL (30.0-36.0); Mean Corpuscular Hemoglobin 31.4 pg (28.0-34.0); Mean Corpuscular Volume 93.9 fl (81-99); Mean Platelet Volume 10.7 fL (7.4-10.4); Monocytes # 0.5 10^3/uL (0.2-0.9); Monocytes % 7.1 %; Neutrophils # 4.43 10^3/uL (1.8-7.7); Neutrophils % 58.2 %; Nucleated Red Blood Cells % 0 %; Platelet Count 178 10^3/cmm (130-400); Red Blood Count 4.42 10^6/uL (4.1-5.3); Red Cell Distribution Width 12.3 % (12.1-15.1); White Blood Count 7.6 10^3/uL (4.0-10.0)
[2021-06-01] MEDS: acetaminophen 325 mg Tablet 650 MG PO (22:41)
[2021-06-01] MEDS: sodium chloride 0.9% 500 ML 999 ML IV (22:42)
[2021-06-01] MEDS: nitroglycerin 0.4 mg sublingual Tablet SUBLINGUAL (22:42)
[2021-06-01] MEDS: ondansetron 2 mg/ML SDV 2 mL 4 MG IVP (22:43)
[2021-06-01 22:47] LABS: INR 0.98 (0.8-1.2)
[2021-06-01 22:48] LABS: Partial Thromboplastin Time 25.4 SECONDS (23.9-36.7)
[2021-06-01 22:56] LABS: Troponin(5th) Baseline 9 ng/L (0-10)
[2021-06-01 23:03] LABS: Alanine Aminotransferase 24 U/L (0-33); Albumin Level 4.3 g/dL (3.5-5.2); Alkaline Phosphatase 148 IU/L (35-105); Anion Gap 17.5 (5-19); Aspartate Amino Transferase 19 U/L (0-32); Blood Urea Nitrogen 15 mg/dL (8-23); Calcium 9.6 mg/dL (8.5-10.5); Carbon Dioxide 24 mmol/L (22-29); Chloride 97 mmol/L (98-107); Creatinine Clr Calc Pharmacy 65.3209; Globulin 1.9 g/dL (1.3-4.6); Glucose 252 mg/dL (65-115); Lipase 13 U/L (13-60); NT Pro B Type Natriuretic Pept 129 pg/mL (0-450); Osmolality Calculated 287 mOsm/kg (285-295); Potassium 4.5 mmol/L (3.5-5.1); Sodium 134 mmol/L (136-145); Total Bilirubin 0.2 mg/dL (0.15-1.2); Total Protein 6.2 g/dL (6.6-8.7)
--- NOTE | 2021-06-02 00:23 | ECG_ITS ---
[facility] Test Date: 2021-06-02 Pat Name: Brandi Berg Department: Room: Gender: Female Ed Case Manager: : 1945 Requested By: Montez Glynn Order Number: [id number] Gamal MD: Honey Smart M.D. Measurements Intervals [place] Rate: 70 P: -16 AL: 147 QRS: -30 QRSD: 118 T: 34 QT: 381 QTc: 413 Interpretive Statements SINUS RHYTHM WITH OCCASIONAL SUPRAVENTRICULAR PREMATURE COMPLEXES BORDERLINE LEFT AXIS DEVIATION [QRS AXIS < -20] MODERATE INTRAVENTRICULAR CONDUCTION DELAY [110+ ms QRS DURATION] MODERATE VOLTAGE CRITERIA FOR LVH, CONSIDER NORMAL VARIANT NONSPECIFIC ST & T-WAVE ABNORMALITY Compared to ECG 05/19/2021 15:17:25 Intraventricular conduction delay now present T-wave abnormality now present Ectopic atrial rhythm no longer present Atrial abnormality no longer present Electronically Signed On 06-03-2021 5:18:21 HUMAN FACTORS ERGONOMIST by Honey Smart M.D. [email or web address]
[2021-06-02 01:06] LABS: Troponin 5 2HR 10.09 ng/L (0-10); Troponin 5 2HR Delta 1.09 ABS# (0-10)
== END 2021-06-02 01:46 | disposition home or self-care (01) ==
PROVIDERS: Emergency Provider Emergency Medicine; PCP Family Medicine
DX: R07.9 Chest pain, unspecified (principal); Z79.02 Long term (current) use of antithrombotics/antiplatelets; Z79.4 Long term (current) use of insulin; I25.10 Atherosclerotic heart disease of native coronary artery without angina pectoris; I10 Essential (primary) hypertension; E78.5 Hyperlipidemia, unspecified
CPT/HCPCS: 36415; 71045; 80053; 83690; 83880; 84484; 85025; 85610; 85730; 93005; 96361; 96374; 99284; J2405; J7040

== ENCOUNTER → 2021-06-03 16:45 | Outpatient (BNVA) | payer MEDICARE, OTHER, SELFPAY | PROVIDERS: PCP Family Medicine; Visit Provider Internal Medicine Cardiovascular Disease | DX: R07.9 Chest pain, unspecified (principal); R06.02 Shortness of breath; I25.118 Atherosclerotic heart disease of native coronary artery with other forms of angina pectoris; E11.649 Type 2 diabetes mellitus with hypoglycemia without coma; D63.8 Anemia in other chronic diseases classified elsewhere; I10 Essential (primary) hypertension; E78.5 Hyperlipidemia, unspecified | CPT/HCPCS: 80048; 85025; 85610; 86850; 86900; 87635 ==

== ENCOUNTER 2021-06-05 06:00 | Outpatient (CLI) | payer MEDICARE, OTHER, SELFPAY ==
[2021-06-05] VITALS (44 sets, daily range): BP systolic 84–191; BP diastolic 46–100; PULSE 70–104; RESP 14–31; TEMP 36.4; O2SAT 91–97; BMI 34.1
--- NOTE | 2021-06-05 06:00 | XACV_ITS ---
Ht: 165 cm Wt: 93 kg BSA: 2.10 m2 Gender: Female : 1945 Any Known Allergies: Other Exam Priority: Routine Procedure(s): Procedure Description: Diagnostic procedure Procedure Description: PCI procedure Procedure Description: Left Heart Catheterization Procedure Description: Drug Eluting Coronary Stent Procedure Description: PTCA Procedure Description: Miscellaneous Procedure Description: Trell JARAMILLO; Diagnostic Cath Status: Elective Diagnostic Findings * The left main is a medium caliber vessel with no significant stenotic lesions. * Left anterior descending artery is a medium caliber vessel, appears to be tortuous and wrapping around the LV apex. The mid segment of the artery was found to have diffuse irregular narrowing of around 50 to 60%. The ostium of the first diagonal branch was found to have around 60 to 70% narrowing. The proximal LAD was found to have around 20 to 30% diffuse narrowing. No other significant stenotic. * The left circumflex artery is a medium caliber vessel which was found to have mild diffuse disease. No significant stenotic lesions. * The right coronary artery is a medium caliber dominant vessel which was found to have a patent stented segment proximally. The mid and the distal segment of the artery was found to have around 20 to 30% diffuse irregular narrowing. No significant stenotic lesions were noted. PCI Status: Elective PCI Indication: New Onset Angina <= 2 months Interventional Findings * Mid Left Anterior Descendin% stenosis treated with a AB MINI TREK 2.00X20 RX BALLOON, and MDT R RAY 2.75X22 KATIE. 0% residual stenosis, MOE: 3 flow. * 1st Diagonal: 100% stenosis treated with a AB MINI TREK 2.00X8 RX BALLOON, and AB MINI TREK 2.00X8 RX BALLOON. 20% residual stenosis, MOE: 3 flow. * I * FR: After equalizing the distal and proximal pressure of * I * FR wire proximal to the lesion, mid LCx lesion was crossed with * I * FR wire. * Spot IFR * was recorded as 0.78, which is significant * IFR wire was pulled out and placed in the diagonal branch * IFR: After equalizing the distal and proximal pressure of IFR wire proximal to the lesion, * Ostial Diagonal * lesion was crossed with IFR wire. Spot IFR was recorded as 0 * 83 * , which is significant * . Conclusions 1. 76-year-old white female with history of coronary artery disease and previous PCI, presenting with increasing episodes of chest pain. She had a myocardial perfusion imaging which revealed an elevated transient ischemic dilatation ratio. Patient apparently had several emergency room and office visits with these complaints. In view of her ongoing worsening symptoms, in order to further evaluate her coronary status, cardiac catheterization was recommended. Patient underwent left heart catheterization with left and right coronary angiogram and LV angiogram today. The findings are as follows. 2. The left main was found no significant disease. 3. Left anterior descending artery was found to have moderately severe 4. diffuse disease in the midsegment involving the ostium of the first diagonal branch. 5. The 6. left circumflex artery was found to have minimal intimal regularities. 7. Right coronary artery was found to have patent stented segment with mild 8. diffuse disease in the mid and distal segment of the artery. 9. Normal LV ejection fraction. LVEDP 27 mmHg. 10. Cardiac catheterization data was reviewed and discussed with the Dr. Sinha. In view of the patient's ongoing symptoms, it was thought to be appropriate to consider IFR of the LAD/diagonal lesion. Dr Sinha agreed with this plan and took over further management of this patient at this point. 11. Mid Left Anterior Descending was treated with a Balloon, and Drug Eluting Stent. 12. 1st Diagonal was treated with a Balloon, and Balloon. Recommendations * 1-Return to inpatient for close monitoring and routine cath care 2-Risk factor modification for secondary prevention 3-Statin and aspirin 81 mg life--long, if tolerated 4-Continue Plavix 75mg p.o. daily for at least one year. We will assess at the end of one year again to continue if further or not 5-Continue optimal medical management 6-Follow up with Dr. Cai in four weeks and your primary care in 10 days. Diagnostic RX Recommendation: other cardiac therapy w/o CABG/PCI Ventriculography Ejection Fraction: 65.0 % LV EDP: 27 mmHg Left Ventriculography Findings: * The LV gram was performed in the BROOKS position. The LV cavity appeared to be of normal size. LV ejection fraction was around 65%. LVEDP was 27 mmHg. There was no filling defects. No significant mitral valve prolapse or mitral regurgitation. Pressures Phase:Rest AO : 184 / 77 ( 124 ) @ 6:05:00 AM 190 / 75 ( 125 ) @ 6:05:00 AM LV : 185 / 9 / 27 @ 6:04:00 AM 189 / 2 / 28 @ 6:05:00 AM 189 / 1 / 29 @ 6:05:00 AM 188 / 2 / 30 @ 6:05:00 AM Valves Phase:DefaultPhase AV : 4.0 @ 9:15:54 AM 4.0 @ 9:15:54 AM AV Mean Gradient: 9.0 @ 9:15:54 AM 9.0 @ 9:15:54 AM Clinical Evaluation EBL: 5mL-10mL Procedural Details Procedure Consent Obtained. Admit Source: Out Patient. Pre-Procedure Time Out. Identified patient by full name and date of as verbalized by the patient/guarantor. Does the consent match the physician's order: Yes. Accurate & Complete Informed Consent: Yes. Inpatient/Outpatient History & Physical on Chart: Yes. If H&P is completed, is and addenduem needed: No; If yes, is the addendum complete: N/A. Visualize and Verify Site with Patient/Guarantor: N/A. Relevant Radiology Images available: N/A. Pre-op teaching completed and patient verbalized understanding. The risks, benefits, and alternatives of sedation and/or procedure were discussed by physician. The patient agrees to continue. Procedure started. Correct patient, site and procedure confirmed by cath team. PERRLA. Strong, equal hand architectural drafting instructor bilaterally. Lungs clear x 5 lobes. IV Site on Arrival: 20 gauge in the left anticubital. Pre Procedural Pulses: right dorsalis pedis was 2+. Pre Procedural Pulses: left dorsalis pedis was 1+. Pre Procedural Pulses: bilateral posterior tibial was Doppled. Pre Procedural Pulses: bilateral radial was 3+. Oxygen started at 2liters/min via nasal canula. bilateral groins was prepped with chloroprep then draped in the usual sterile fashion. right radial was prepped with chloroprep then draped in the usual sterile fashion. Baseline sample Acquired. HR: 82 BPM. Physician notified. Physician arrived. Physician scrubbed in. Immediate Pre-Procedure Time Out. Correct Patient: Yes; Correct Procedure: Yes; Correct Site: Yes; Correct Patient Position: Yes; Correct Supplies: Yes; Dried Flammable Prep: Yes; Blood Products Available: N/A;. Lidocaine 1% infiltrated to the right radial. Arterial access obtained. A 5 somali Osiel catheter in over wire. Multiple views taken of right coronary artery. Catheter removed over the exchange wire. A 5 somali TIG catheter in over wire. Multiple views taken of left coronary artery. computers down and plant ops called. plant ops arrived. catheter out over the exchange wire. pigtale in over wire. BP: 153/69 HR: 84 bpm Sat: 99%. Procedure started. EDP Sample taken: LV 185/9,27; HR: 78 BPM; SpO2: 97%. LV gram performed in BROOKS @ 10 mL/second for a total of 30 mL. EDP Sample taken: LV 189/2,28; HR: 80 BPM; SpO2: 97%. Pullback taken: LV 188/2,30; AO 184/77(124); Mean: 9mmHg, Peak to Peak: 4mmHg, SEP: 20sec/min; HR: 80 BPM; SpO2: 97%. Catheter out. 6 somali XB 3 guide catheter was inserted over the wire. Dr. Sinha scrubbed in to perform FFR. FFR guidewire was advanced through the guide catheter to lesion in the mid LAD. IFR LAD results 0.78. FFR guidewire was advanced through the guide catheter to lesion in the diaganol. IFR Diagonal results 0.83. IFR wire out. Jupiter guidewire was advanced through the guide catheter to lesion in the mid LAD. Jupiter guidewire was advanced through the guide catheter to lesion in the diaganol. cougar wire in the LAD is out. Jupiter guidewire was advanced through the guide catheter to lesion in the mid LAD. Inflation number : 1 A AB MINI TREK 2.00X20 RX BALLOON was prepped and advanced across the Mid LAD , then inflated to 14 FABY for 0:09 seconds. Balloon out. Inflation number : 1 A AB MINI TREK 2.00X8 RX BALLOON was prepped and advanced across the 1st Diag , then inflated to 16 FABY for 0:11 seconds. Balloon out. Inflation Number : 2 A GREG Ramos RAY 2.75X22 KATIE -Lot Number#[id number] exp date: 01-13-2024 was prepped and advanced across the Mid LAD. The stent was deployed at 14 FABY for 0:14 seconds. Stent balloon out over wire. both wires out. Jupiter guidewire was advanced through the guide catheter to lesion in the diag. Inflation number : 2 A AB MINI TREK 2.00X8 RX BALLOON was prepped and advanced across the 1st Diag , then inflated to 16 FABY for 0:12 seconds. Balloon out. Wire out. checking results. Guide catheter out. ACT drawn. Results 216 seconds. Therapeutic limits - pre-heparin administration 90-150 seconds and monitoring heparin during a vascular procedure >250 seconds. A TR Band was successful obtaining hemostatsis at the Right Radial artery insertion site. TR band placed. Hemostasis obtained. Post Procedure: Pulses reassessed and unchanged. PERRLA. Strong, equal hand architectural drafting instructor bilaterally. No VTE prophylaxis required. Medication's Wasted: Lidocaine 1% = 17 mL. Medication's Wasted: Nitro = 49.4 mg. Total IV fluids: 712 mL. Contrast type used: Visipaque 320 mgI/mL, 500 mL bottle. Visipaque 452mL. Post-op diagnosis: PCI to mid LAD and Diag. Complications: none. Estimated blood loss: 5mL-10mL. Responsiveness - Normal response to verbal stimuli; alert and oriented, PERRLA. Airway - Unaffected, no intervention required; spontaneous ventilation. Circulation: W/N/L, pulses unchanged. Nausea/Vomiting: N/A. Procedure completed. Patient transferred by wheelchair to 1st floor. [facility] Clinical Fraility Score: 3: Managing Well. Cardiovascular Instability: No,. Vital chart was stopped. patient having post chest pain. STAT EKG was called. EKG was performed by respiratory. Access Site Site: Right Radial artery Sheath Size: 6 Fr Hemostasis Method: TR Band Hemostasis Success: Successful Procedure Medications Start: 7:34 AM Stop: 7:34 AM Medication: Versed Amount: 1 mg Route: I.V. Start: 7:34 AM Stop: 7:34 AM Medication: Fentanyl Amount: 50 mcg Route: I.V. Start: 7:42 AM Stop: 7:42 AM Medication: Verapamil Amount: 5 mg Route: I.A. Start: 7:43 AM Stop: 7:43 AM Medication: Nitrogylcerin Amount: 200 mcg Route: I.A. Start: 7:43 AM Stop: 7:43 AM Medication: Versed Amount: 1 mg Route: I.V. Start: 7:44 AM Stop: 7:44 AM Medication: Heparin Amount: 5000 units Route: I.V. Start: 8:09 AM Stop: 8:09 AM Medication: Fentanyl Amount: 25 mcg Route: I.V. Start: 8:10 AM Stop: 8:10 AM Medication: Heparin Amount: 2000 units Route: I.V. Start: 8:13 AM Stop: 8:13 AM Medication: Hydralazine Amount: 10 mg Route: I.V. Start: 8:20 AM Stop: 8:20 AM Medication: Fentanyl Amount: 50 mcg Route: I.V. Start: 8:26 AM Stop: 8:26 AM Medication: Hydralazine Amount: 10 mg Route: I.V. Start: 8:28 AM Stop: 8:28 AM Medication: Versed Amount: 1 mg Route: I.V. Start: 8:30 AM Stop: 8:30 AM Medication: Heparin Amount: 2000 units Route: I.V. Start: 8:37 AM Stop: 8:37 AM Medication: Fentanyl Amount: 50 mcg Route: I.V. Start: 8:39 AM Stop: 8:39 AM Medication: Nitrogylcerin Amount: 200 mcg Route: I.C. Start: 8:44 AM Stop: 8:44 AM Medication: Versed Amount: 1 mg Route: I.V. Start: 8:52 AM Stop: 8:52 AM Medication: Nitrogylcerin Amount: 200 mcg Route: I.C. Start: 8:52 AM Stop: 8:52 AM Medication: Fentanyl Amount: 50 mcg Route: I.V. Start: 9:09 AM Stop: 9:09 AM Medication: Heparin Amount: 3000 units Route: I.V. I, the attending physician, have reviewed and verified all procedure medications. Yes, all medications given per verbal order History/Risk Factors Hypertension: Yes Dyslipidemia: Yes Prior Interventions PCI: Yes Date of PCI: 02/15/2019 Report Signatures Interventional Workflow Finalized by Negro Sinha MD on 06/18/2021 05:44 PM Diagnostic Workflow Finalized by Dr Gilma Cai MD [facility] on 06/05/2021 08:20 PM
[2021-06-05] MEDS: hydrocortisone 100 mg/2 mL SDV IVP (07:05)
[2021-06-05] MEDS: diphenhydrAMINE 50 mg Capsule PO (07:05)
--- NOTE | 2021-06-05 07:15 | W.PM.OPSUD ---
Surgery/Procedure H&P Update DATE OF PROCEDURE: June 05, 2021 DATE H&P PERFORMED: 06/03/21 H&P UPDATE INFORMATION: I have reviewed H&P completed within last 30 days, I have examined patient prior to procedure and No changes to prior documentation PREOP DIAGNOSIS: ASHD PRIMARY INDICATION FOR PROCEDURE: chest pain/ Abnormal MPI/ previous PCI PLANNED PROCEDURE: Operation Date: 06/05/21 07:00 Proposed Procedures p Cardiac Catheterization(Left) - Gilma Cai MD PATIENT REASSESSED PRIOR TO SEDATION, WITH NO CHANGE NOTED: Yes PHYSICAL EXAM: alert, clear to auscultation bilaterally and regular rate & rhythm AIRWAY EVAL/ANESTHESIA PLAN: normal airway, see other exam findings, ASA III, Monitored Anesthesia, Local Anesthesia, Risks, benefits & alternatives of sedation and/or procedure discussed and Patient agrees to continue as planned
[2021-06-05 07:19] LABS: SARS Covid-2 Antigen Negative (Negative)
--- NOTE | 2021-06-05 09:11 | ECG_ITS ---
[facility] Test Date: 2021-06-05 Pat Name: Brandi Hidalgoepartment: Room: 108 Gender: Female National Sales: : 1945 Requested By: Negro Sinha Order Number: [id number] Reading MD: Measurements Intervals [place] Rate: 101 P: 40 AL: 151 QRS: -35 QRSD: 105 T: 30 QT: 355 QTc: 460 Interpretive Statements SINUS TACHYCARDIA LEFT AXIS DEVIATION [QRS AXIS < -30] MINIMAL VOLTAGE CRITERIA FOR LVH, CONSIDER NORMAL VARIANT [MEETS CRITERIA IN ONE OF: R(aVL), S(V1), R(V5), R(V5/V6)+S(V1)] Compared to ECG 06/02/2021 00:16:59 Sinus rhythm no longer present Intraventricular conduction delay no longer present T-wave abnormality no longer present [email or web address].[employer]/store/[id number]
--- NOTE | 2021-06-05 09:20 | ECG_ITS ---
[facility] Test Date: 2021-06-05 Pat Name: Brandi Berg Department: Room: Gender: Female Employment Security Officer: : 1945 Requested By: Gilma Cai Order Number: [id number] Gamal MD: Gilma Cai M.D. Measurements Intervals [place] Rate: 101 P: 40 MI: 151 QRS: -35 QRSD: 105 T: 30 QT: 355 QTc: 460 Interpretive Statements SINUS TACHYCARDIA LEFT AXIS DEVIATION [QRS AXIS < -30] MINIMAL VOLTAGE CRITERIA FOR LVH, CONSIDER NORMAL VARIANT [MEETS CRITERIA IN ONE OF: R(aVL), S(V1), R(V5), R(V5/V6)+S(V1)] Compared to ECG 06/02/2021 00:16:59 Sinus rhythm no longer present Intraventricular conduction delay no longer present T-wave abnormality no longer present Electronically Signed On 06-11-2021 17:52:05 INTEGRATED CIRCUIT DESIGN ENGINEER by Gilma Cai M.D. [email or web address] SoftwareBitstripsregency hospital [facility].[email or web address]/store/[id number]
[2021-06-05] MEDS: pantoprazole DR 40 mg Tablet PO ×2 (10:01→19:15)
[2021-06-05] MEDS: fentaNYL 50 mcg/mL INJ 2mL 25 MCG IVP (10:02)
[2021-06-05] MEDS: nitroglycerin 1 gm/inch oint Pkt 1 INCH TOPICAL (10:02)
--- NOTE | 2021-06-05 10:04 | PC.CHAP ---
Pastoral Care Encounter/Spiritual Assessment Type of Contact [] Declined principal account clerk visit [] Patient/Family/Request visit [] Outpatient visit [] Follow-up visit [] Physician referral [] Code/Alert [x] Routine visit [] Staff referral [] Actively dying [] Patient sleeping [] Family support [] [] Out of room [] Palliative care [] [x] Receiving care in room [] Pre-surgical visit [] Trauma [x] Long length of stay [] ICU visit [] Other: Relational/Emotional Strength [] Patient feels connected with others/family/visitors/staff [x] Distress [] Loneliness/isolation [] Abandonment Spirituality of Patient [x] Person of Ignacia [] Attends [facility]itan of their Ignacia [x] Believes in Prayer [] Reads Bible or Christian materials [] There are Spiritual issues to be addressed Wad Compressor Operator Adjuster Interventions [x] Prayer [x] Active listening [x] Non-anxious presence [x] Spiritual/emotional support [] Crisis/trauma care [x] Spiritual counseling [] Bereavement support [] Provided bereavement packet [] Provided Bible/devotional materials [] Provided toy/stuffed animal, coloring book to patient or family member [] Provided Communion [] Anointing/[place] [] Salvation [x] Completed spiritual assessment [] Other: Impact on Illness or Injury [] Angry [] Fearful [x] Anxious [] Often cries [] Exhaustion [x] Unable to work [] Unable to attend bahai [] Unable to walk/stand [] Unable to read [] Unable to drive [] Unable to eat/drink [] Unable to sleep [] Unable to be with family [] Patient intubated [] Other: Summary Senior came from the NON DESTRUCTIVE TESTING TECHNICIAN waing on doctors report in some pain negative feelings doesn't know when she can go home Time spent with patient 10 mins
--- NOTE | 2021-06-05 10:08 | PC.NURSE ---
patient reporting 9/[address] larose at bedside to assess instructions to give nitro paste 1 x1 dose fentynl 25mcg IVP plavix 75 mg now
[2021-06-05] MEDS: clopidogrel 75 mg Tablet PO (10:12)
--- NOTE | 2021-06-05 11:10 | ECG_ITS ---
[facility] Test Date: 2021-06-05 Pat Name: Brandi Hidalgoepartment: Room: 108 Gender: Female Trial Consultant: : 1945 Requested By: Negro Sinha Order Number: [id number] Reading MD: Measurements Intervals [place] Rate: 93 P: 54 CT: 151 QRS: -35 QRSD: 98 T: 17 QT: 386 QTc: 482 Interpretive Statements SINUS RHYTHM WITH OCCASIONAL SUPRAVENTRICULAR PREMATURE COMPLEXES LEFT AXIS DEVIATION [QRS AXIS < -30] INCOMPLETE RIGHT BUNDLE BRANCH BLOCK [90+ ms QRS DURATION, TERMINAL R IN V1/V2, 40+ ms S IN I/aVL/V4/V5/V6] MODERATE VOLTAGE CRITERIA FOR LVH, CONSIDER NORMAL VARIANT [MEETS CRITERIA IN ONE OF: R(aVL), S(V1), R(V5), R(V5/V6)+S(V1)] Compared to ECG 06/05/2021 09:20:21 Incomplete right bundle-branch block now present Sinus tachycardia no longer present [email or web address].[facility].[employer]/store/[id number]
--- NOTE | 2021-06-05 11:11 | PC.NURSE ---
Patient reporting chest pain back after previous interventions reported patient concern to Dr. Sinha instructions received to give GI cocktail x1 and obtain EKG
--- NOTE | 2021-06-05 11:20 | ECG_ITS ---
[facility] Test Date: 2021-06-05 Pat Name: Brandi Berg Department: Room: Gender: Female Application Support Technician: : 1945 Requested By: Gilma Cai Order Number: [id number] Gamal MD: Gilma Cai M.D. Measurements Intervals [place] Rate: 93 P: 54 MA: 151 QRS: -35 QRSD: 98 T: 17 QT: 386 QTc: 482 Interpretive Statements SINUS RHYTHM WITH OCCASIONAL SUPRAVENTRICULAR PREMATURE COMPLEXES LEFT AXIS DEVIATION [QRS AXIS < -30] INCOMPLETE RIGHT BUNDLE BRANCH BLOCK [90+ ms QRS DURATION, TERMINAL R IN V1/V2, 40+ ms S IN I/aVL/V4/V5/V6] MODERATE VOLTAGE CRITERIA FOR LVH, CONSIDER NORMAL VARIANT [MEETS CRITERIA IN ONE OF: R(aVL), S(V1), R(V5), R(V5/V6)+S(V1)] Compared to ECG 06/05/2021 09:20:21 Incomplete right bundle-branch block now present Sinus tachycardia no longer present Electronically Signed On 06-11-2021 17:52:29 FRAME STRIPPER by Gilma Cai M.D. [id number]
[2021-06-05] MEDS: lidocaine 2% viscous 15 ML, aluminum-mag hydrox-simethicon 30 ML, sucralfate oral liq 1 GM PO (11:33)
[2021-06-05] MEDS: ferrous sulfate EC 325 mg Tablet PO (12:53)
[2021-06-05] MEDS: lactulose oral liq 20 gm/30 mL UDC 10 GM PO (12:53)
[2021-06-05] MEDS: magnesium oxide 400 mg tablet 500 MG PO (12:53)
[2021-06-05] MEDS: dicyclomine 10 mg Capsule PO ×2 (12:55→22:06)
[2021-06-05] MEDS: hydrocortisone 10 mg Tablet 20 MG PO (12:55)
--- NOTE | 2021-06-05 14:15 | ECG_ITS ---
[facility] Test Date: 2021-06-05 Pat Name: Brandi Berg Department: Room: Gender: Female Agricultural Pilot: : 1945 Requested By: Gilma Cai Order Number: [id number] Gamal MD: Gilma Cai M.D. Measurements Intervals [place] Rate: 96 P: 71 NM: 144 QRS: -37 QRSD: 102 T: 35 QT: 368 QTc: 466 Interpretive Statements SINUS RHYTHM WITH OCCASIONAL SUPRAVENTRICULAR PREMATURE COMPLEXES LEFT AXIS DEVIATION [QRS AXIS < -30] MINIMAL VOLTAGE CRITERIA FOR LVH, CONSIDER NORMAL VARIANT [MEETS CRITERIA IN ONE OF: R(aVL), S(V1), R(V5), R(V5/V6)+S(V1)] NONSPECIFIC T-WAVE ABNORMALITY Compared to ECG 06/05/2021 11:20:15 T-wave abnormality now present Incomplete right bundle-branch block no longer present Electronically Signed On 06-11-2021 17:52:39 NARROW FABRIC CALENDERER by Gilma Cai M.D. [email or web address]/[id number]
--- NOTE | 2021-06-05 14:19 | ECG_ITS ---
[facility] Test Date: 2021-06-05 Pat Name: Brandi RobisononDepartment: Room: 108 Gender: Female Jewelry Technician: : 1945 Requested By: Negro Sinha Order Number: [id number] Reading MD: Measurements Intervals [place] Rate: 96 P: 71 [place]: 144 QRS: -37 QRSD: 102 T: 35 QT: 368 QTc: 466 Interpretive Statements SINUS RHYTHM WITH OCCASIONAL SUPRAVENTRICULAR PREMATURE COMPLEXES LEFT AXIS DEVIATION [QRS AXIS < -30] MINIMAL VOLTAGE CRITERIA FOR LVH, CONSIDER NORMAL VARIANT [MEETS CRITERIA IN ONE OF: R(aVL), S(V1), R(V5), R(V5/V6)+S(V1)] NONSPECIFIC T-WAVE ABNORMALITY Compared to ECG 06/05/2021 11:20:15 T-wave abnormality now present Incomplete right bundle-branch block no longer present [id number]
[2021-06-05] MEDS: HYDROcodone-acetaminophen 7.5-325 mg Tablet 1 TAB PO ×2 (15:12→22:07)
[2021-06-05] MEDS: cholecalciferol (vitamin D3) 1,000 unit Tablet 1000 UNIT PO (19:15)
[2021-06-05] MEDS: sennosides-docusate Tablet 2 TAB PO (20:34)
[2021-06-05] MEDS: losartan 50 mg Tablet PO (20:35)
[2021-06-05] MEDS: insulin glargine 100 units/1 mL 26 UNIT SUBCUT (20:36)
[2021-06-05] MEDS: quetiapine 100 mg Tablet PO (20:37)
[2021-06-05] MEDS: atorvastatin 40 mg Tablet PO (20:37)
[2021-06-05 22:18] LABS: Glucose Point of Care 309 mg/dL (70-110)
[2021-06-05] MEDS: ondansetron 4 MG Tablet PO (22:51)
[2021-06-06 02:46] LABS: Basophils % 0.3 %; Eosinophils # 0.1 10^3/uL (0.0-0.8); Eosinophils % 0.9 %; Hematocrit 39.5 % (37.0-47.0); Hemoglobin 12.8 g/dL (11.5-15.3); Lymphocytes # 2.3 10^3/uL (0.8-4.8); Lymphocytes % 30.8 %; Mean Corpuscular HGB Conc 32.4 g/dL (30.0-36.0); Mean Corpuscular Hemoglobin 31.1 pg (28.0-34.0); Mean Corpuscular Volume 96.1 fl (81-99); Mean Platelet Volume 10.6 fL (7.4-10.4); Monocytes # 0.8 10^3/uL (0.2-0.9); Monocytes % 11.1 %; Neutrophils # 4.24 10^3/uL (1.8-7.7); Neutrophils % 56.6 %; Nucleated Red Blood Cells % 0 %; Platelet Count 163 10^3/cmm (130-400); Red Blood Count 4.11 10^6/uL (4.1-5.3); Red Cell Distribution Width 12.6 % (12.1-15.1); White Blood Count 7.5 10^3/uL (4.0-10.0)
[2021-06-06 03:12] LABS: Anion Gap 11.8 (5-19); Blood Urea Nitrogen 14 mg/dL (8-23); Calcium 9.3 mg/dL (8.5-10.5); Carbon Dioxide 28 mmol/L (22-29); Chloride 103 mmol/L (98-107); Creatinine Clr Calc Pharmacy 65.3209; Glucose 177 mg/dL (65-115); Osmolality Calculated 293 mOsm/kg (285-295); Potassium 3.8 mmol/L (3.5-5.1); Sodium 139 mmol/L (136-145)
[2021-06-06 04:50] VITALS: PULSE 70
[2021-06-06] MEDS: hydrocortisone 10 mg Tablet 40 MG PO (06:04)
[2021-06-06] MEDS: sennosides-docusate Tablet 1 TAB PO (06:05)
[2021-06-06] MEDS: citalopram 20 mg Tablet 40 MG PO (06:05)
[2021-06-06 06:41] LABS: Glucose Point of Care 102 mg/dL (70-110)
[2021-06-06 08:00] VITALS: BP 158/64; PULSE 79; RESP 19; O2SAT 97
[2021-06-06] MEDS: pantoprazole DR 40 mg Tablet PO (09:20)
[2021-06-06] MEDS: polyethylene glycol 3350 Pkt 17 gm PO (09:20)
[2021-06-06] MEDS: isosorbide mononitrate ER 60 mg Tablet 120 MG PO (09:20)
[2021-06-06] MEDS: dicyclomine 10 mg Capsule PO (09:21)
--- NOTE | 2021-06-06 10:09 | PM.PN ---
Subjective Subjective: Interval history: The patient was admitted to hospital following the cardiac catheterization and PCI. She underwent PCI of the left and descending artery and the first diagonal branch. She had an uneventful postprocedure course. She has no chest pain or chest tightness. No unusual shortness of breath. Her blood pressure seems to be staying high. Medications: Reviewed: Yes Medication Review Details: Current Medications Hydrocodone Bitart/Acetaminophen (Hydrocodone-Acetaminophen 7.5-325 Mg Tablet) 1 tab PO QID PRN PRN Reason: Pain Last Admin: 06/05/21 22:07 Dose: 1 tab Documented by: Al Hydrox/Mg Hydrox/Simethicone (Msed-Qbt-[place] 30 Ml Udc) 30 ml PO Q15M PRN PRN Reason: INDIGESTION Atorvastatin Calcium (Atorvastatin 40 Mg Tablet) 40 mg PO BEDTIME [facility] Last Admin: 06/05/21 20:37 Dose: 40 mg Documented by: Citalopram Hydrobromide (Citalopram 20 Mg Tablet) 40 mg PO QAM [facility] Last Admin: 06/06/21 06:05 Dose: 40 mg Documented by: Clopidogrel Bisulfate (Clopidogrel 75 Mg Tablet) 75 mg PO QPM [facility] Last Admin: 06/05/21 19:01 Dose: Not Given Documented by: Dicyclomine HCl (Dicyclomine 10 Mg Capsule) 10 mg PO QID [facility] Last Admin: 06/06/21 09:21 Dose: 10 mg Documented by: Ferrous Sulfate (Ferrous Sulfate Ec 325 Mg Tablet) 325 mg PO DAILY@12 [facility] Last Admin: 06/05/21 12:53 Dose: 325 mg Documented by: Hydrocortisone (Hydrocortisone 10 Mg Tablet) 40 mg PO QAM@0700 [facility] Last Admin: 06/06/21 06:04 Dose: 40 mg Documented by: Hydrocortisone (Hydrocortisone 10 Mg Tablet) 20 mg PO QD@1200 [facility] Last Admin: 06/05/21 12:55 Dose: 20 mg Documented by: Insulin Glargine (Insulin Glargine 100 Units/1 Ml) 26 unit SUBCUT BEDTIME [facility] Last Admin: 06/05/21 20:36 Dose: 26 unit Documented by: Isosorbide Mononitrate (Isosorbide Mononitrate Er 60 Mg Tablet) 120 mg PO DAILY [facility] Last Admin: 06/06/21 09:20 Dose: 120 mg Documented by: Lactulose (Lactulose Oral Liq 20 Gm/30 Ml Udc) 10 gm PO DAILY@12 [facility] Last Admin: 06/05/21 12:53 Dose: 10 gm Documented by: Losartan Potassium (Losartan 50 Mg Tablet) 50 mg PO BEDTIME [facility] Last Admin: 06/05/21 20:35 Dose: 50 mg Documented by: Magnesium Oxide (Magnesium Oxide 400 Mg Tablet) 500 mg PO DAILY@12 [facility] Last Admin: 06/05/21 12:53 Dose: 500 mg Documented by: Naloxone HCl (Naloxone 0.4 Mg/Ml Sdv) 0.1 mg IVP Q2M PRN PRN Reason: RESPIRATORY RATE < 8/MIN Nitroglycerin (Nitroglycerin 0.4 Mg Sublingual Tablet) 0.4 mg SUBLINGUAL Q5M PRN PRN Reason: chest pain Nitroglycerin (Nitroglycerin 1 Gm/Inch Oint Pkt) 1 inch TOPICAL Q6H [facility] Last Admin: 06/06/21 09:21 Dose: Not Given Documented by: Ondansetron HCl (Ondansetron 4 Mg Tablet) 4 mg PO Q6H PRN PRN Reason: nausea and vomiting Last Admin: 06/05/21 22:51 Dose: 4 mg Documented by: Pantoprazole Sodium (Pantoprazole Dr 40 Mg Tablet) 40 mg PO BID [facility] Last Admin: 06/06/21 09:20 Dose: 40 mg Documented by: Polyethylene Glycol (Polyethylene Glycol 3350 Pkt 17 Gm) 17 gm PO DAILY [facility] Last Admin: 06/06/21 09:20 Dose: 17 gm Documented by: Quetiapine Fumarate (Quetiapine 100 Mg Tablet) 100 mg PO BEDTIME [facility] Last Admin: 06/05/21 20:37 Dose: 100 mg Documented by: Senna/Docusate Sodium (Sennosides-Docusate Tablet) 1 tab PO QAM [facility] Last Admin: 06/06/21 06:05 Dose: 1 tab Documented by: Senna/Docusate Sodium (Sennosides-Docusate Tablet) 2 tab PO BEDTIME [facility] Last Admin: 06/05/21 20:34 Dose: 2 tab Documented by: Vitamin D (Cholecalciferol (Vitamin D3) 1,000 Unit Tablet) 1,000 unit PO QPM [facility] Last Admin: 06/05/21 19:15 Dose: 1,000 unit Documented by: Vitals/I&O/Wt Last Vital Signs Temp 97.6 F 06/05/21 06:35 Pulse 79 06/06/21 08:00 Resp 19 H 06/06/21 08:00 BP 158/64 06/06/21 08:00 Pulse Ox 97 06/06/21 08:00 06/05/21 06/06/21 06/06/21 22:59 06:59 14:59 Intake Total 660 / 1020 150 / 1170 240 / 240 Output Total 650 / 1150 700 / 1850 Balance 10 / -130 -550 / -680 240 / 240 Weight last 48 hrs Weight 205 lb Weight 205 lb Physical Exam Narrative: EXAM NARRATIVE: GENERAL: The patient is alert and oriented times three. Not in any acute distress. HEENT: No significant pallor, icterus or lymphadenopathy.Oral cavity: There are no mucous membrane lesions. NECK: Trachea appears to be central. No masses noted. No JVD or thyromegaly appreciated. RESPIRATORY: Chest is symmetrical. No intercostals muscle retraction or any accessory muscle activation. There is no chest wall tenderness. Breath sounds are heard bilaterally. No rales or rhonchi heard. No evidence of any consolidation. BREASTS: Deferred. HEART: The heart sounds are normal. No S3 or S4. No significant murmurs. No pericardial rub ABDOMEN: No vessel pulsations or distention. No tenderness. No organomegaly appreciated. Bowel sounds are normally heard. : Deferred. RECTAL: Deferred. LYMPHATIC: No lymphadenopathy noted in the neck or groin. EXTREMITIES: She has some ecchymosis around the radial arterial puncture site. But no hematoma. Good radial pulse. MUSCULOSKELETAL: No acute joint deformities or swelling SKIN: There are no significant rashes or ecchymosis NEUROPSYCHIATRIC: The patient is alert and oriented x3. Appears to be in a good mood. No tremors or rigidity noted. Data : 06/06/21 02:17 06/06/21 02:17 Other Labs: Laboratory Last Values WBC 7.5 10^3/uL (4.0-10.0) 06/06/21 02:17 RBC 4.11 10^6/uL (4.1-5.3) 06/06/21 02:17 Hgb 12.8 g/dL (11.5-15.3) 06/06/21 02:17 Hct 39.5 % (37.0-47.0) 06/06/21 02:17 MCV 96.1 fl (81-99) 06/06/21 02:17 MCH 31.1 pg (28.0-34.0) 06/06/21 02:17 MCHC 32.4 g/dL (30.0-36.0) 06/06/21 02:17 RDW 12.6 % (12.1-15.1) 06/06/21 02:17 Plt Count 163 10^3/cmm (130-400) 06/06/21 02:17 MPV 10.6 fL (7.4-10.4) H 06/06/21 02:17 Neut % (Auto) 56.6 % 06/06/21 02:17 Lymph % (Auto) 30.8 % 06/06/21 02:17 Cass % (Auto) 11.1 % 06/06/21 02:17 Eos % (Auto) 0.9 % 06/06/21 02:17 Baso % (Auto) 0.3 % 06/06/21 02:17 Neut # (Auto) 4.24 10^3/uL (1.8-7.7) 06/06/21 02:17 Lymph # (Auto) 2.3 10^3/uL (0.8-4.8) 06/06/21 02:17 Cass # (Auto) 0.8 10^3/uL (0.2-0.9) 06/06/21 02:17 Eos # (Auto) 0.1 10^3/uL (0.0-0.8) 06/06/21 02:17 Baso # (Auto) 0.0 10^3/uL (0.0-0.1) 06/06/21 02:17 Nucleated RBC % (auto) 0 % 06/06/21 02:17 Nucleated RBCs # 0.0 /100WBC 06/06/21 02:17 Sodium 139 mmol/L (136-145) 06/06/21 02:17 Potassium 3.8 mmol/L (3.5-5.1) 06/06/21 02:17 Chloride 103 mmol/L (98-107) 06/06/21 02:17 Carbon Dioxide 28 mmol/L (22-29) 06/06/21 02:17 Anion Gap 11.8 (5-19) 06/06/21 02:17 BUN 14 mg/dL (8-23) 06/06/21 02:17 Creatinine 0.6 mg/dL (0.5-0.9) 06/06/21 02:17 GFR Calculation Not Reportable 06/06/21 02:17 Glucose 177 mg/dL (65-115) H 06/06/21 02:17 POC Glucose 102 mg/dL (70-110) 06/06/21 06:37 Calculated Osmolality 293 mOsm/kg (285-295) 06/06/21 02:17 Calcium 9.3 mg/dL (8.5-10.5) 06/06/21 02:17 SARS-CoV-2 Ag (Rapid) Negative (Negative) 06/05/21 06:50 A&P Assessment and plan (1) Atherosclerotic heart disease of [place] coronary artery with other forms of angina pectoris: Patient had a cardiac arrest arrest today. She was found to have patent stented segment of the right coronary artery. The left anterior sending artery was found to have hemodynamically significant stenosis at the mid segment, involving the ostium of the first diagonal. Patient underwent PCI of the diagonal and the LAD lesions by Dr. Sinah. Currently she seems to be doing okay. Has no recurrence of chest pain. Status: Acute (2) Diabetes type 2, controlled: Status: Acute Qualifiers: Diabetes mellitus terminal operator insulin use: without penitentiary use Diabetes mellitus complication status: with hyperglycemia Qualified Code(s): E11.65 - Type 2 diabetes mellitus with hyperglycemia (3) Dyslipidemia (high LDL; low HDL): Continue on the current medications. Status: Acute (4) Benign essential hypertension with target blood pressure below 140/90: For better control of the blood pressure, she is advised to increase the dose of the Diovan to 320 mg p.o. daily. Status: Acute Additional A&P Information In the event of the patient developing any unusual chest pain, palpitations, SOB or any other new symptoms, advised to contact our office. Patient will be seen at [facility] 7 days as per protocol. Patient will be seen by JENNIFER Cai MD in 3 months in the office. Patient is advised to continue the medications as mentioned above. The importance of compliance to diet, medications and exercise were discussed. In the event of the patient developing chest pain ,unusual palpitations or any new symptoms, is advised to contact me or come to the hospital. Attestations Medical Necessity Statement*: Patient is being discharged home today. 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
--- NOTE | 2021-06-06 10:24 | PC.CHAP ---
Pastoral Care Encounter/Spiritual Assessment Type of Contact [] Declined information systems auditor visit [] Patient/Family/Request visit [] Outpatient visit [] Follow-up visit [] Physician referral [] Code/Alert [] Routine visit [] Staff referral [] Actively dying [xx] Patient sleeping [] Family support [] [] Out of room [] Palliative care [] [] Receiving care in room [] Pre-surgical visit [] Trauma [] Long length of stay [] ICU visit [] Other: Relational/Emotional Strength [] Patient feels connected with others/family/visitors/staff [] Distress [] Loneliness/isolation [] Abandonment Spirituality of Patient [] Person of Ignacia [] Attends Restoration of their Ignacia [] Believes in Prayer [] Reads Bible or Caodaism materials [] There are Spiritual issues to be addressed Order Dispatcher Chief Interventions [] Prayer [] Active listening [] Non-anxious presence [] Spiritual/emotional support [] Crisis/trauma care [] Spiritual counseling [] Bereavement support [] Provided bereavement packet [] Provided Bible/devotional materials [] Provided toy/stuffed animal, coloring book to patient or family member [] Provided Communion [] Anointing/[place] [] Salvation [] Completed spiritual assessment [] Other: Impact on Illness or Injury [] Angry [] Fearful [] Anxious [] Often cries [] Exhaustion [] Unable to work [] Unable to attend church [] Unable to walk/stand [] Unable to read [] Unable to drive [] Unable to eat/drink [] Unable to sleep [] Unable to be with family [] Patient intubated [] Other: Summary Time spent with patient
[2021-06-06 11:09] VITALS: BP 158/64; PULSE 79; RESP 19; O2SAT 97
--- NOTE | 2021-06-06 12:23 | PC.NURSE ---
discharge instructions given and explained.pt verb understanding of instructions.discharged via w/c to exit at [address]. to [address] pt home
== END 2021-06-06 11:15 | disposition home or self-care (01) ==
LOC: CCL 06:03 → CSU 08:26
PROVIDERS: Internal Medicine Cardiovascular Disease; PCP Family Medicine; Visit Provider Internal Medicine Cardiovascular Disease
DX: I25.118 Atherosclerotic heart disease of native coronary artery with other forms of angina pectoris (principal); E11.65 Type 2 diabetes mellitus with hyperglycemia; E78.5 Hyperlipidemia, unspecified; I10 Essential (primary) hypertension
CPT/HCPCS: 36415; 36416; 80048; 82962; 85025; 85347; 87426; 93005; 93452; 93458; 93571; 96372; C1725; C1769; C1874; C1887; C1894; C9600; J0360; J1644; J1720; J1815; J2250; J3010; J7030; J8499; Q0162; Q0163; Q9967

== ENCOUNTER → 2021-06-17 10:30 | Outpatient (BNVA) | payer MEDICARE, OTHER, SELFPAY | PROVIDERS: PCP Family Medicine; Visit Provider Nurse Practitioner Family | DX: I25.118 Atherosclerotic heart disease of native coronary artery with other forms of angina pectoris (principal); I10 Essential (primary) hypertension | CPT/HCPCS: 80048 ==

== ENCOUNTER → 2021-06-20 07:56 | Outpatient (BNVA) | payer MEDICARE, OTHER, SELFPAY | PROVIDERS: PCP Family Medicine; Visit Provider Psychiatry & Neurology Psychiatry | DX: F31.81 Bipolar II disorder (principal); F41.0 Panic disorder [episodic paroxysmal anxiety] | CPT/HCPCS: 99214 ==

== ENCOUNTER → 2021-07-07 10:31 | Outpatient (BNVA) | payer MEDICARE, OTHER, SELFPAY | PROVIDERS: PCP Family Medicine; Visit Provider Internal Medicine | DX: E11.649 Type 2 diabetes mellitus with hypoglycemia without coma (principal); E27.1 Primary adrenocortical insufficiency; R42 Dizziness and giddiness; R10.9 Unspecified abdominal pain; Z79.4 Long term (current) use of insulin | CPT/HCPCS: 99215 ==

== ENCOUNTER → 2021-07-18 07:19 | Outpatient (BNVA) | payer MEDICARE, OTHER, SELFPAY | PROVIDERS: PCP Family Medicine; Visit Provider Psychiatry & Neurology Psychiatry | DX: F31.81 Bipolar II disorder (principal); F41.0 Panic disorder [episodic paroxysmal anxiety] | CPT/HCPCS: 99214 ==

== ENCOUNTER → 2021-07-21 13:12 | Outpatient (BNVA) | payer MEDICARE, OTHER, SELFPAY | PROVIDERS: PCP Family Medicine; Visit Provider Internal Medicine | DX: E27.1 Primary adrenocortical insufficiency (principal); E11.649 Type 2 diabetes mellitus with hypoglycemia without coma; Z79.4 Long term (current) use of insulin | CPT/HCPCS: 99214 ==

== ENCOUNTER 2021-07-24 11:09 | Emergency (ER) | payer MEDICARE, OTHER, SELFPAY ==
[2021-07-24 11:22] VITALS: BP 147/72; PULSE 69; RESP 14; TEMP 36.8; O2SAT 94; BMI 34.2
--- NOTE | 2021-07-24 11:32 | ECG_ITS ---
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 Measurements Intervals [place] Rate: 66 P: 5 AK: 150 QRS: 95 QRSD: 102 T: 15 QT: 385 QTc: 405 Interpretive Statements SINUS RHYTHM BORDERLINE RIGHT AXIS DEVIATION [QRS AXIS > 90] POSSIBLE INFERIOR MYOCARDIAL INFARCTION , PROBABLY OLD [30 ms Q WAVE IN II/aVF] Compared to ECG 06/05/2021 14:29:47 Myocardial infarct finding now present Left-axis deviation no longer present T-wave abnormality no longer present Electronically Signed On 07-24-2021 17:45:15 EARTH MOVING MACHINE OPERATOR by Gilma Cai M.D. [id number]
--- NOTE | 2021-07-24 11:32 | XR_ITS ---
WS: [id number] Portable AP upright chest, 07/24/2021 Clinical Data: dyspnea/cough Comparison: Portable chest, 06/01/2021. Findings: No nodules, masses or effusions are seen. The heart is normal. The pulmonary vascularity is not increased. No pneumonia or pneumothorax is seen. The aortic arch and descending thoracic aorta s how tortuosity. The patient is slightly rotated. XR/XR chest 1V portable [id number] Impression: Atherosclerosis.
--- NOTE | 2021-07-24 11:47 | CT_ITS ---
WS: [id number] CT ABDOMEN PELVIS TECHNIQUE: Contrast-enhanced CT of the abdomen and pelvis with coronal and sagittal reformatted image s. CLINICAL INFORMATION: abd pain COMPARISON: CT February 21, 2021 DLP: 1786.[address] scans at [facility] use at least one of these dose optimization techniques: automated e xposure control; mA and/or kV adjustment per patient size (includes targeted exams where dose is matc hed to clinical indication); or iterative reconstruction. FINDINGS: Prior postoperative changes cholecystectomy. Prior hysterectomy and appendectomy. Diffuse fatty infiltration liver. Normal portal vein and splenic vein. Splenic granulomas. Small eso phageal hiatal hernia. Fatty atrophy of the pancreas. Splenic artery calcification. Lung bases are we ll aerated. Adrenal glands are normal. Adrenal glands are normal. Normal renal parenchymal enhancement. No hydronephrosis. Images in the pel vis are degraded due to bilateral THAs. Sigmoid diverticulosis. No evidence of high-grade small or la rge bowel obstruction. No periaortic or pelvic lymphadenopathy. No inguinal lymphadenopathy. CT/CT abdomen pelvis w con* [id number] IMPRESSION: 1. Sigmoid diverticulosis. No evidence of acute diverticulitis. 2. No evidence of small or large bowel obstruction. 3. Small esophageal hiatal hernia. 4. No hydronephrosis in either kidney. 5. Normal caliber abdominal aorta. 6. Prior postoperative changes cholecystectomy and hysterectomy. Prior appende ctomy. 7. Some images are obscured in the pelvis due to beam hardening artifact from bilateral THAs. 8. No acute abdominal or pelvic findings.
--- NOTE | 2021-07-24 11:48 | W.ED.ABDPA2 ---
HPI - Abdominal Pain General: Chief Complaint: Nausea/Vomiting/Diarrhea Stated Complaint: dizzy Time Seen by Provider: 07/24/21 11:30 Source: patient Mode of arrival: ambulatory Limitations: no limitations History of Present Illness: 68-year-old female presents emergency room with chest and abdominal pain this been going on for about the last 6 to 8 weeks. She had a stent placed back in mid May she states been persistent since then just the last day or 2 its gotten worse which precipitated her presentation to the emergency room. She is in no acute distress at the time she is seen she is also complaining some dizziness. The chief complaint listed in the nurses notes is nausea vomiting and diarrhea. She does relate nausea but denies any vomiting or diarrhea. She not had any bloody stools or black tarry stools. Patient is diabetic. No changes in bowel or bladder. The abdominal discomfort is not new or suddenly different but does seem to have been worsening. She does relate the pain radiates into her back which is also unchanged. MD elicited complaint: abdominal pain Onset (ago): week(s) (68 weeks) Pain Consistency: constant Location: Diffuse and Chest Quality: cramping Radiation: back Exacerbating factors: nothing Relieving factors: nothing Associated Symptoms: Reports bloating, constipation and GI cramping; Denies anorexia, belching, change in bowel habits, change in stool character, chills, coffee ground emesis, diarrhea, dyspepsia, dysuria, excessive flatus, fever(s), heartburn, hematochezia, hematuria, hematemesis, fecal incontinence, loose stools, melena, nausea, poor appetite, syncope and vomiting Review of Systems Const: Denies: fever(s) or chills ENMT: Denies: throat pain, ear or mastoid pain, nasal discharge or nasal congestion Card: Denies: syncope Resp: Denies: dyspnea, productive cough or non-productive cough GI: Reports: constipation, bloating and GI cramping; Denies: nausea, vomiting, hematemesis, coffee ground emesis, heartburn, diarrhea, belching, excessive flatus, fecal incontinence, change in bowel habits, change in stool character, hematochezia or melena : Denies: dysuria or hematuria Skin/Breast: Denies: rash or pruritus PFS ED PFSH: Medical History Acute cystitis Anemia, chronic disease 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 Left axis deviation. Normal MT and QRS duration. Intervertebral disc disorder with radiculopathy of lumbosacral region Psychiatric care Recurrent UTI Status post left heart catheterization Surgical History History of colonoscopy (~2018) History of coronary artery stent placement History of right knee surgery S/P appendectomy S/P hernia repair S/P hip replacement S/P hysterectomy Family History Family/Other Diabetes Other Cancer Social History Smoking and tobacco status: never smoked Alcohol intake: never Household members: spouse Marital status: Current occupational status: retired History of recent travel: No Physical Exam Const: COMMON NORMALS: no acute distress GENERAL APPEARANCE: cooperative and comfortable ORIENTATION/CONSCIOUSNESS: Yes awake, Yes oriented to person, Yes oriented to place and Yes oriented to time HENMT: COMMON NORMALS: normocephalic, atraumatic, hearing grossly normal bilaterally, external ears normal, EAC's normal, TM's normal bilaterally and Normal nasal mucous membranes and turbinates present HEAD & SCALP: normocephalic and atraumatic NOSE: Normal nasal mucous membranes and turbinates present EXTERNAL EAR: Yes external ears normal EXTERNAL AUDITORY CANAL: EAC's normal TYMPANIC MEMBRANE: TM's normal bilaterally Eye: COMMON NORMALS: Equal, round and reactive pupils present, EOMs intact bilaterally, conjunctivae normal and no scleral icterus CONJUNCTIVA: Yes conjunctivae normal PUPIL: Yes Equal, round and reactive pupils present Neck/C-Spine: COMMON NORMALS: no JVD Lymph: LYMPHATIC: no lymphadenopathy noted and no lymphedema noted Resp: COMMON NORMALS: normal respiratory effort, No retractions, No use of accessory muscles and clear to auscultation bilaterally AUSCULTATION: clear to auscultation bilaterally Cardio: COMMON NORMALS: no JVD, regular rate, regular rhythm and No murmurs present (Cardio) RATE: regular rate RHYTHM: regular rhythm GI: COMMON NORMALS: Soft to palpation and No hepatosplenomegaly present AUSCULTATION: Yes normoactive bowel sounds PALPATION: Yes Soft to palpation, Yes Tenderness to palpation present (GI) (Diffuse nonspecific pain no guarding or rebound), No Guarding due to palpation present (GI) and Yes No hepatosplenomegaly present Extremity: COMMON NORMALS: normal to inspection, capillary refill normal, no clubbing, cyanosis or edema, no calf tenderness and no pedal edema Neuro: SENSORIUM/ORIENTATION: Yes oriented to person, Yes oriented to place and Yes oriented to time Skin: COMMON NORMALS: no rashes or lesions noted GENERAL SKIN EXAM: no rashes or lesions noted Course Vital Signs: Vital signs: Vital Signs Temperature 98.2 F 07/24/21 11:22 Pulse Rate 67 07/24/21 12:11 Respiratory Rate 16 07/24/21 12:11 Blood Pressure 132/68 07/24/21 12:11 Pulse Oximetry 94 07/24/21 12:11 MDM - Abdominal Pain Medical Decision Making EKG and serial enzymes are negative. I reviewed the cardiac cath report and discussed with cardiology. Given her presentation history did not feel this is cardiac related. Her cardiac cath not have any other suspect areas that were not addressed at the time of the previous heart catheterization. We will increase her Nexium to twice daily have her follow-up with her primary care doctor if her symptoms persist. Medical Records I reviewed the patient's medical records. Lab Data I reviewed the patient's lab results. : 07/24/21 12:24 07/24/21 12:24 Labs/Radiology: Radiology Impressions Chest X-Ray 07/24/21 11:32 Impression: Atherosclerosis. Abdomen/Pelvis CT 07/24/21 11:47 IMPRESSION: 1. Sigmoid diverticulosis. No evidence of acute diverticulitis. 2. No evidence of small or large bowel obstruction. 3. Small esophageal hiatal hernia. 4. No hydronephrosis in either kidney. 5. Normal caliber abdominal aorta. 6. Prior postoperative changes cholecystectomy and hysterectomy. Prior appendectomy. 7. Some images are obscured in the pelvis due to beam hardening artifact from bilateral THAs. 8. No acute abdominal or pelvic findings. Laboratory Results WBC 7.4 10^3/uL (4.0-10.0) 07/24/21 12:24 RBC 3.96 10^6/uL (4.1-5.3) L 07/24/21 12:24 Hgb 12.6 g/dL (11.5-15.3) 07/24/21 12:24 Hct 38.4 % (37.0-47.0) 07/24/21 12:24 MCV 97.0 fl (81-99) 07/24/21 12:24 MCH 31.8 pg (28.0-34.0) 07/24/21 12:24 MCHC 32.8 g/dL (30.0-36.0) 07/24/21 12:24 RDW 12.2 % (12.1-15.1) 07/24/21 12:24 Plt Count 151 10^3/cmm (130-400) 07/24/21 12:24 MPV 10.4 fL (7.4-10.4) 07/24/21 12:24 Neut % (Auto) 70.4 % 07/24/21 12:24 Lymph % (Auto) 19.2 % 07/24/21 12:24 [place] % (Auto) 8.0 % 07/24/21 12:24 Eos % (Auto) 1.8 % 07/24/21 12:24 Baso % (Auto) 0.3 % 07/24/21 12:24 Neut # (Auto) 5.23 10^3/uL (1.8-7.7) 07/24/21 12:24 Lymph # (Auto) 1.4 10^3/uL (0.8-4.8) 07/24/21 12:24 [place] # (Auto) 0.6 10^3/uL (0.2-0.9) 07/24/21 12:24 Eos # (Auto) 0.1 10^3/uL (0.0-0.8) 07/24/21 12:24 Baso # (Auto) 0.0 10^3/uL (0.0-0.1) 07/24/21 12:24 Nucleated RBC % (auto) 0 % 07/24/21 12:24 Nucleated RBCs # 0.0 /100WBC 07/24/21 12:24 Sodium 135 mmol/L (136-145) L 07/24/21 12:24 Potassium 4.5 mmol/L (3.5-5.1) 07/24/21 12:24 Chloride 99 mmol/L (98-107) 07/24/21 12:24 Carbon Dioxide 24 mmol/L (22-29) 07/24/21 12:24 Anion Gap 16.5 (5-19) 07/24/21 12:24 BUN 17 mg/dL (8-23) 07/24/21 12:24 Creatinine 0.5 mg/dL (0.5-0.9) 07/24/21 12:24 GFR Calculation Not Reportable 07/24/21 12:24 Glucose 241 mg/dL (65-115) H 07/24/21 12:24 Calculated Osmolality 289 mOsm/kg (285-295) 07/24/21 12:24 Calcium 10.2 mg/dL (8.5-10.5) 07/24/21 12:24 Total Bilirubin 0.4 mg/dL (0.15-1.2) 07/24/21 12:24 AST 19 U/L (0-32) 07/24/21 12:24 ALT 30 U/L (0-33) 07/24/21 12:24 Alkaline Phosphatase 123 IU/L (35-105) H 07/24/21 12:24 Creatine Kinase 47 U/L (26-192) 07/24/21 12:24 Troponin T Baseline 11 ng/L (0-10) H 07/24/21 12:24 Troponin T 120 Minute 9.93 ng/L (0-10) 07/24/21 14:28 Delta Troponin T -1.07 ABS# (0-10) L 07/24/21 14:28 Total Protein 6.4 g/dL (6.6-8.7) L 07/24/21 12:24 Albumin 4.3 g/dL (3.5-5.2) 07/24/21 12:24 Globulin 2.1 g/dL (1.3-4.6) 07/24/21 12:24 Lipase 12 U/L (13-60) L 07/24/21 12:24 Urine Color Yellow (Yellow) 07/24/21 12:37 Urine Appearance Clear (CLEAR) 07/24/21 12:37 Urine pH 7 (5-7) 07/24/21 12:37 Ur Specific [place] 1.010 (1.005-1.030) 07/24/21 12:37 Urine Protein Neg (Negative) 07/24/21 12:37 Urine Glucose (UA) 2+ (Normal) H 07/24/21 12:37 Urine Ketones Negative (Negative) 07/24/21 12:37 Urine Blood Neg (Negative) 07/24/21 12:37 Urine Nitrate Negative (Negative) 07/24/21 12:37 Urine Bilirubin Neg (Negative) 07/24/21 12:37 Urine Urobilinogen Neg mg/dL (Negative) 07/24/21 12:37 Ur Leukocyte Esterase Negative (Negative) 07/24/21 12:37 Discharge Plan Discharge Patient Disposition: Home Clinical Impression: Abdominal pain, Chest pain due to gastrointestinal reflux disease Condition: Stable Prescriptions: Changed esomeprazole magnesium 40 mg capsule,delayed release(DR/EC) 40 mg PO BID Qty: 0 0RF No Action ondansetron HCl [Zofran] 4 mg tablet 4 mg PO Q6H PRN (Reason: nausea and vomiting) 0RF dicyclomine 10 mg capsule 10 mg PO QID 0RF lactulose 10 gram/15 mL solution 15 ml PO DAILY@12 0RF polyethylene glycol 3350 [Miralax] 17 gram/dose powder 17 g PO DAILY 0RF cholecalciferol (vitamin D3) 1,000 unit capsule 1,000 unit PO QPM 0RF cranberry 500 mg capsule 500 mg PO DAILY@12 0RF Lactobacillus acidophilus [Acidophilus] Capsule 1 cap PO QAM 0RF ferrous sulfate 325 mg (65 mg iron) tablet 325 mg PO DAILY@12 0RF magnesium oxide 400 mg (241.3 mg magnesium) tablet 500 mg PO DAILY@12 0RF promethazine 25 mg tablet 25 mg PO BID PRN (Reason: nausea and vomiting) 0RF insulin aspart U-100 [Novolog Flexpen U-100 Insulin] 100 unit/mL (3 mL) insulin pen See Rx Instructions .ROUTE .COMPLEX 0RF Rx Instructions: 7 UNITS AM 7 UNITS NOON 7 UNITS PM nitroglycerin 0.4 mg tablet, sublingual 0.4 mg sublingual Q5M PRN (Reason: chest pain) 30 Days Qty: 30 3RF Rx Instructions: until response; do not exceed 3 doses per episode hydrocortisone 20 mg tablet See Rx Instructions PO BID@07,12 Qty: 270 3RF Rx Instructions: 20 MG in am 20 MG IN PM isosorbide mononitrate 120 mg tablet extended release 24 hr 120 mg PO DAILY 90 Days Qty: 90 0RF atorvastatin 40 mg tablet 40 mg PO BEDTIME 0RF aspirin [Ecotrin Low Strength] 81 mg tablet,delayed release (DR/EC) 81 mg PO DAILY Qty: 30 3RF valsartan 320 mg tablet 320 mg PO DAILY Qty: 90 3RF albuterol sulfate 90 mcg/actuation HFA aerosol inhaler 2 puff INHALATION PRN PRN (Reason: Shortness Of Breath) 0RF sennosides-docusate sodium [Senna-S] 8.6-50 mg Tablet See Rx Instructions .ROUTE .COMPLEX 0RF Rx Instructions: 1 tab po qam and 2 tabs bedtime hydrocodone-acetaminophen 7.5-325 mg tablet 1 tab PO QID PRN (Reason: Pain) 0RF Vitamin C Gummies 3 tab PO DAILY@12 0RF citalopram 40 mg tablet 40 mg PO QAM 0RF clopidogrel 75 mg tablet 75 mg PO QPM 0RF Rx Instructions: Must be seen for future refills quetiapine [Seroquel] 100 mg tablet 50 mg PO BEDTIME 0RF Tresiba FlexTouch U-200 200 unit/mL (3 mL) insulin pen 30 unit SUBCUT QPM 0RF Discharge Orders: Discharge ED (Routine); Ordered 07/24/21 Ordered By: Maximiliano Morris Referrals: Arabella Orta MD [Primary Care Provider] - Discharge Activity: Limit activity as instructed Patient Instructions: Abdominal Pain (ED), Opioid Safety Activity Restrictions/Additional Instructions: [place] diet for the next several days follow-up with your primary care doctor within a week. Coding Level of Care Code ED Lead Applier for [place] Fwd Exam Comprehensive
[2021-07-24] MEDS: ondansetron 2 mg/ML SDV 2 mL 4 MG IVP (12:08)
[2021-07-24 12:11] VITALS: BP 132/68; PULSE 67; RESP 16; O2SAT 94
[2021-07-24 12:31] LABS: Basophils % 0.3 %; Eosinophils # 0.1 10^3/uL (0.0-0.8); Eosinophils % 1.8 %; Hematocrit 38.4 % (37.0-47.0); Hemoglobin 12.6 g/dL (11.5-15.3); Lymphocytes # 1.4 10^3/uL (0.8-4.8); Lymphocytes % 19.2 %; Mean Corpuscular HGB Conc 32.8 g/dL (30.0-36.0); Mean Corpuscular Hemoglobin 31.8 pg (28.0-34.0); Mean Platelet Volume 10.4 fL (7.4-10.4); Monocytes # 0.6 10^3/uL (0.2-0.9); Neutrophils # 5.23 10^3/uL (1.8-7.7); Neutrophils % 70.4 %; Nucleated Red Blood Cells % 0 %; Platelet Count 151 10^3/cmm (130-400); Red Blood Count 3.96 10^6/uL (4.1-5.3); Red Cell Distribution Width 12.2 % (12.1-15.1); White Blood Count 7.4 10^3/uL (4.0-10.0)
[2021-07-24 12:44] LABS: Add Urine Microscopic? NO; Charge for UA Resulting for Rev
[2021-07-24 12:50] LABS: Bilirubin Urine Neg (Negative); Blood Urine Neg (Negative); Glucose Urine UA 2+ (Normal); Ketones Urine Negative (Negative); Leukocyte Esterase Urine Negative (Negative); Nitrate Urine Negative (Negative); Protein Urine Neg (Negative); Urine Appearance Clear (CLEAR); Urine Color Yellow (Yellow); Urobilinogen Urine Neg (Negative); pH Urine 7 (5-7)
[2021-07-24 12:51] LABS: Alanine Aminotransferase 30 U/L (0-33); Albumin Level 4.3 g/dL (3.5-5.2); Alkaline Phosphatase 123 IU/L (35-105); Anion Gap 16.5 (5-19); Aspartate Amino Transferase 19 U/L (0-32); Blood Urea Nitrogen 17 mg/dL (8-23); Calcium 10.2 mg/dL (8.5-10.5); Carbon Dioxide 24 mmol/L (22-29); Chloride 99 mmol/L (98-107); Creatine Phosphokinase 47 U/L (26-192); Globulin 2.1 g/dL (1.3-4.6); Glucose 241 mg/dL (65-115); Lipase 12 U/L (13-60); Osmolality Calculated 289 mOsm/kg (285-295); Potassium 4.5 mmol/L (3.5-5.1); Sodium 135 mmol/L (136-145); Total Bilirubin 0.4 mg/dL (0.15-1.2); Total Protein 6.4 g/dL (6.6-8.7)
[2021-07-24 12:57] LABS: Troponin(5th) Baseline 11 ng/L (0-10)
--- NOTE | 2021-07-24 13:32 | ECG_ITS ---
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 Measurements Intervals [place] Rate: 68 P: 60 IN: 148 QRS: -33 QRSD: 93 T: 40 QT: 372 QTc: 397 Interpretive Statements SINUS RHYTHM LEFT AXIS DEVIATION [QRS AXIS < -30] NONSPECIFIC T-WAVE ABNORMALITY Compared to ECG 07/24/2021 12:07:15 Left-axis deviation now present T-wave abnormality now present Myocardial infarct finding no longer present Electronically Signed On 07-24-2021 17:50:23 [employer]PERVISOR [employer] by Gilma Cai M.D. [id number]
[2021-07-24 15:01] LABS: Troponin 5 2HR 9.93 ng/L (0-10)
[2021-07-24 15:21] LABS: Troponin 5 2HR Delta -1.07 ABS# (0-10)
[2021-07-24 15:52] VITALS: BP 164/78; PULSE 70; RESP 18; O2SAT 97
== END 2021-07-24 15:53 | disposition home or self-care (01) ==
PROVIDERS: Emergency Provider Family Medicine; PCP Family Medicine
DX: K21.9 Gastro-esophageal reflux disease without esophagitis (principal); R10.9 Unspecified abdominal pain; Z79.02 Long term (current) use of antithrombotics/antiplatelets; Z79.82 Long term (current) use of aspirin; Z79.4 Long term (current) use of insulin; I25.10 Atherosclerotic heart disease of native coronary artery without angina pectoris; I10 Essential (primary) hypertension; E78.5 Hyperlipidemia, unspecified
CPT/HCPCS: 36415; 71045; 74177; 80053; 81003; 82550; 83690; 84484; 85025; 93005; 96374; 99283; J2405; Q9967

== ENCOUNTER → 2021-08-06 12:47 | Outpatient (BNVA) | payer MEDICARE, OTHER, SELFPAY | PROVIDERS: PCP Family Medicine; Visit Provider Nurse Practitioner Family | DX: R07.89 Other chest pain (principal); I11.0 Hypertensive heart disease with heart failure; I50.33 Acute on chronic diastolic (congestive) heart failure | CPT/HCPCS: 99213; 99214 ==

== ENCOUNTER → 2021-08-21 14:30 | Outpatient (BNVA) | payer MEDICARE, OTHER, SELFPAY | PROVIDERS: PCP Family Medicine; Visit Provider Internal Medicine | DX: E11.649 Type 2 diabetes mellitus with hypoglycemia without coma (principal); E27.1 Primary adrenocortical insufficiency; R61 Generalized hyperhidrosis; Z79.4 Long term (current) use of insulin | CPT/HCPCS: 99214 ==

== ENCOUNTER 2021-09-09 14:13 | Outpatient (CLI) | payer MEDICARE, OTHER, SELFPAY ==
[2021-09-09 15:12] LABS: Bilirubin Urine Neg (Negative); Blood Urine Neg (Negative); Glucose Urine UA Norm (Normal); Ketones Urine Negative (Negative); Leukocyte Esterase Urine Negative (Negative); Nitrate Urine Negative (Negative); Protein Urine Neg (Negative); Specific Gravity, Urine 1.005 (1.005-1.030); Urine Appearance Clear (CLEAR); Urine Color Yellow (Yellow); Urobilinogen Urine Norm (Negative); pH Urine 7 (5-7)
[2021-09-09 15:33] LABS: Renal Epithelial Cells Urine N /hpf
[2021-09-09 15:34] LABS: Add Urine Culture? No; Amorphous Sediment Urine TRACE /hpf; Mucus Urine N /hpf; Other Casts Urine N /lpf; Other Crystals Urine N /hpf; Other Sediment, Urine N; Uric Acid Crystals Urine N /hpf
== END 2021-09-09 14:14 | disposition home or self-care (01) ==
LOC: LAB 14:21
PROVIDERS: PCP Family Medicine; Visit Provider Family Medicine
DX: R30.0 Dysuria (principal)
CPT/HCPCS: 36415; 81001

== ENCOUNTER → 2021-09-11 07:17 | Outpatient (BNVA) | payer MEDICARE, OTHER, SELFPAY | PROVIDERS: PCP Family Medicine; Visit Provider Psychiatry & Neurology Psychiatry | DX: F31.81 Bipolar II disorder (principal); F41.0 Panic disorder [episodic paroxysmal anxiety] | CPT/HCPCS: 99213 ==

== ENCOUNTER → 2021-09-24 14:46 | Outpatient (BNVA) | payer MEDICARE, OTHER, SELFPAY | PROVIDERS: PCP Family Medicine; Referring Provider Family Medicine; Visit Provider Otolaryngology | DX: K11.7 Disturbances of salivary secretion (principal); E86.0 Dehydration; R61 Generalized hyperhidrosis; I10 Essential (primary) hypertension | CPT/HCPCS: 99203; 99204 ==

== ENCOUNTER 2021-09-26 15:08 | Outpatient (CLI) | payer MEDICARE, OTHER, SELFPAY ==
[2021-09-26 17:09] LABS: Bilirubin Urine Neg (Negative); Blood Urine Neg (Negative); Glucose Urine UA Norm (Normal); Ketones Urine Negative (Negative); Leukocyte Esterase Urine Negative (Negative); Nitrate Urine Negative (Negative); Protein Urine Neg (Negative); Specific Gravity, Urine 1.005 (1.005-1.030); Urine Appearance Clear (CLEAR); Urine Color Yellow (Yellow); Urobilinogen Urine Norm (Negative); pH Urine 7 (5-7)
[2021-09-26 17:14] LABS: Squamous Epithelial Cell Urine 0-4 /hpf (0-5)
== END 2021-09-26 15:09 | disposition home or self-care (01) ==
LOC: LAB 15:15
PROVIDERS: PCP Family Medicine; Visit Provider Family Medicine
DX: R30.0 Dysuria (principal)
CPT/HCPCS: 81001; 87086

== ENCOUNTER → 2021-11-13 15:29 | Outpatient (BNVA) | payer MEDICARE, OTHER, SELFPAY | PROVIDERS: PCP Family Medicine; Visit Provider Nurse Practitioner Family | DX: I25.118 Atherosclerotic heart disease of native coronary artery with other forms of angina pectoris (principal) | CPT/HCPCS: 99213 ==

== ENCOUNTER 2021-11-13 16:50 | Emergency (ER) | payer MEDICARE, OTHER, SELFPAY ==
[2021-11-13] VITALS (8 sets, daily range): BP systolic 129–180; BP diastolic 63–84; PULSE 72–87; RESP 18; TEMP 36.8; O2SAT 95–100
--- NOTE | 2021-11-13 17:06 | ECG_ITS ---
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 Measurements Intervals [place] Rate: 82 P: 40 [place]: 168 QRS: -25 QRSD: 95 T: 48 QT: 367 QTc: 430 Interpretive Statements SINUS RHYTHM BORDERLINE LEFT AXIS DEVIATION [QRS AXIS < -20] MINIMAL VOLTAGE CRITERIA FOR LVH, CONSIDER NORMAL VARIANT [MEETS CRITERIA IN ONE OF: R(aVL), S(V1), R(V5), R(V5/V6)+S(V1)] NONSPECIFIC T-WAVE ABNORMALITY Compared to ECG 07/24/2021 13:26:29 No significant changes Electronically Signed On 11-13-2021 22:29:20 CDT by Jose Sumner M.D. [id number]
--- NOTE | 2021-11-13 17:06 | XRR_ITS ---
PROCEDURE INFORMATION: Exam: XR Chest Exam date and time: 11/13/2021 6:12 PM Age: 76 years old Clinical indication: Chest wall pain; Additional info: Chest pain TECHNIQUE: Imaging protocol: Radiologic exam of the chest. Views: 1 view. COMPARISON: CR XR chest 1V portable [id number] 07/24/2021 11:38 AM FINDINGS: Lungs: The lungs are clear. Pleural spaces: Unremarkable. No pleural effusion. No pneumothorax. Heart/Mediastinum: Unremarkable. No cardiomegaly. Bones/joints: Unremarkable. XR/XR chest 1V portable [id number] IMPRESSION: No acute cardiopulmonary abnormality.
--- NOTE | 2021-11-13 18:03 | ED_ITS ---
HPI - SOB/Dyspnea General: Chief Complaint: Shortness of Breath/Dyspnea Stated Complaint: Sortness of breath Time Seen by Provider: 11/13/21 17:53 Source: patient Mode of arrival: ambulatory Limitations: no limitations History of Present Illness: HPI Narrative: 77-year-old female who has extensive cardiac history she had stents placed back in May she was sent here from the cardiology clinic and having chest pain. She has been having severe chest pains over the last week along with shortness of breath. States pains been a pressure type pain in her chest is much worse with exertion. Patient denies any cough or fever. She denies any vomiting. Associated symptoms: Reports chest pain; Deny abdominal pain, fever(s), nausea or vomiting Review of Systems Const: Denies: fever(s), chills, body aches or change in appetite Eyes: Denies: blurry vision or eye discomfort ENMT: Denies: throat pain or dental pain Card: Reports: chest pain Resp: Reports: dyspnea GI: Denies: abdominal pain, nausea, vomiting or diarrhea : Denies: dysuria Musc: Denies: neck pain or back pain Skin/Breast: Denies: rash Neuro: Denies: headache(s) Psych: Denies: depression Gael/Lymph: Denies: easy bruising All/Imm: Denies: urticaria PFSH ED PFSH: Medical History Acute cystitis Anemia, chronic disease 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 Left axis deviation. Normal UT and QRS duration. Intervertebral disc disorder with radiculopathy of lumbosacral region Psychiatric care Psychiatric care Recurrent UTI Status post left heart catheterization Surgical History History of colonoscopy (~2018) History of coronary artery stent placement History of right knee surgery S/P appendectomy S/P hernia repair S/P hip replacement S/P hysterectomy Family History Family/Other Diabetes Other Cancer Social History Smoking and tobacco status: never smoked Alcohol intake: never Household members: spouse Marital status: Current occupational status: retired History of recent travel: No Physical Exam Const: COMMON NORMALS: no acute distress, patient oriented x3 and healthy appearing HENMT: COMMON NORMALS: normocephalic and atraumatic HEAD & SCALP: normocephalic and atraumatic Eye: COMMON NORMALS: Equal, round and reactive pupils present and EOMs intact bilaterally PUPIL: Yes Equal, round and reactive pupils present Neck/C-Spine: COMMON NORMALS: full ROM and supple Chest: COMMONS NORMALS: normal inspection of the chest and normal palpation of entire chest wall Resp: COMMON NORMALS: normal respiratory effort, No retractions, No use of accessory muscles and clear to auscultation bilaterally AUSCULTATION: clear to auscultation bilaterally Cardio: COMMON NORMALS: regular rate, regular rhythm and No murmurs present (Cardio) RATE: regular rate RHYTHM: regular rhythm GI: COMMON NORMALS: Normal to inspection, nondistended, normoactive bowel sounds present, Soft to palpation, non-tender and no masses PALPATION: Yes Soft to palpation Extremity: COMMON NORMALS: normal to inspection and full ROM Neuro: COMMON NORMALS: patient oriented x3, moves all extremities and no focal motor deficits Psych: COMMON NORMALS: mental status grossly normal, Normal thought process present and cooperative THOUGHT PROCESS: Normal thought process present Skin: COMMON NORMALS: no rashes or lesions noted and no wounds GENERAL SKIN EXAM: no rashes or lesions noted Course Vital Signs: Vital signs: Vital Signs Temperature 98.2 F 11/13/21 16:57 Pulse Rate 79 11/13/21 18:30 Respiratory Rate 18 11/13/21 18:30 Blood Pressure 148/63 11/13/21 18:30 Pulse Oximetry 100 11/13/21 18:30 MDM - SOB/Dyspnea Medical Decision Making Patient presents here with chest pain and shortness of breath been going on for quite some time. Patient's troponins and D-dimer and EKG and x-rays are all normal here. She has no signs of acute coronary syndrome or aortic dissection. 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 I feel she is stable for discharge informed if she has any worsening chest pain she is to return she understands and agrees to plan. Lab Data : 11/13/21 18:11/13/21 18: Labs/Radiology: Radiology Impressions Chest X-Ray 11/13/21 17: IMPRESSION: No acute cardiopulmonary abnormality. Laboratory Results WBC 8.9 10^3/uL (4.0-10.0) 11/13/21 18: RBC 4.24 10^6/uL (4.1-5.3) 11/13/21 18: Hgb 13.1 g/dL (11.5-15.3) 11/13/21: Hct 38.7 % (37.0-47.0) 11/13/21: MCV 91.3 fl (81-99) 11/13/21 18: MCH 30.9 pg (28.0-34.0) 11/13/21: MCHC 33.9 g/dL (30.0-36.0) 11/13/21 18: RDW 12.5 % (12.1-15.1) 11/13/21: Plt Count 219 10^3/cmm (130-400) 11/13/21: MPV 10.1 fL (7.4-10.4) 11/13/21 18: Neut % (Auto) 74.1 % 11/13/21 18: Lymph % (Auto) 18.4 % 11/13/21: [place] % (Auto) 6.5 % 11/13/21: Eos % (Auto) 0.4 % 11/13/21 18: Baso % (Auto) 0.4 % 11/13/21: Neut # (Auto) 6.61 10^3/uL (1.8-7.7) 11/13/21: Lymph # (Auto) 1.6 10^3/uL (0.8-4.8) 11/13/21 18: [place] # (Auto) 0.6 10^3/uL (0.2-0.9) 11/13/21 18: Eos # (Auto) 0.0 10^3/uL (0.0-0.8) 11/13/21 18:26 Baso # (Auto) 0.0 10^3/uL (0.0-0.1) 11/13/21 18: Nucleated RBC % (auto) 0 % 11/13/21 18: Nucleated RBCs # 0.0 /100WBC 11/13/21 18:26 D-Dimer 0.44 ug/mIFEU (0-0.59) 11/13/21 18: Sodium 133 mmol/L (136-145) L 11/13/21 18: Potassium 4.0 mmol/L (3.5-5.1) 11/13/21 18: Chloride 94 mmol/L (98-107) L 11/13/21 18: Carbon Dioxide 25 mmol/L (22-29) 11/13/21 18: Anion Gap 18.0 (5-19) 11/13/21 18: BUN 12 mg/dL (8-23) 11/13/21 18: Creatinine 0.6 mg/dL (0.5-0.9) 11/13/21 18: GFR Calculation Not Reportable 11/13/21 18: Glucose 254 mg/dL (65-115) H 11/13/21 18:26 Calculated Osmolality 284 mOsm/kg (285-295) L 11/13/21 18: Calcium 9.9 mg/dL (8.5-10.5) 11/13/21 18: Total Bilirubin 0.4 mg/dL (0.15-1.2) 11/13/21 18: AST 19 U/L (0-32) 11/13/21 18: ALT 25 U/L (0-33) 11/13/21 18: Alkaline Phosphatase 118 IU/L (35-105) H 11/13/21 18:26 Troponin T Baseline 11 ng/L (0-10) H 11/13/21 18: Troponin T 120 Minute 9.79 ng/L (0-10) 11/13/21 20:42 Delta Troponin T -1.21 ABS# (0-10) L 11/13/21 20:42 NT-Pro-B Natriuret Pep 81 pg/mL (0-450) 11/13/21 18:26 Total Protein 7.1 g/dL (6.6-8.7) 11/13/21 18:26 Albumin 4.5 g/dL (3.5-5.2) 11/13/21 18:26 Globulin 2.6 g/dL (1.3-4.6) 11/13/21 18:26 Lipase 16 U/L (13-60) 11/13/21 18:26 EKG Data EKG 1: I personally reviewed and interpreted this EKG as follows: EKG Interpretation Date: 11/13/21 EKG interpretation time: 18:04 Interpretation: nsr hr [address] or t wave abnormalities qrs 95 qtc 405 Discharge Plan Discharge Patient Disposition: Home Clinical Impression: Chest pain Condition: Stable Prescriptions: No Action ondansetron HCl [Zofran] 4 mg tablet 4 mg PO Q6H PRN (Reason: nausea and vomiting) 0RF dicyclomine 10 mg capsule 10 mg PO QID 0RF lactulose 10 gram/15 mL solution 15 ml PO DAILY@12 0RF polyethylene glycol 3350 [Miralax] 17 gram/dose powder 17 g PO DAILY 0RF chlorthalidone 25 mg tablet 25 mg PO DAILY Qty: 90 2RF isosorbide mononitrate 120 mg tablet extended release 24 hr 120 mg PO DAILY Qty: 90 3RF prednisone 1 mg tablet 2 mg PO DAILY Qty: 90 3RF Rx Instructions: Take two tablets daily. cholecalciferol (vitamin D3) 1,000 unit capsule 1,000 unit PO QPM 0RF cranberry 500 mg capsule 500 mg PO DAILY@12 0RF Lactobacillus acidophilus [Acidophilus] Capsule 1 cap PO QAM 0RF ferrous sulfate 325 mg (65 mg iron) tablet 325 mg PO DAILY@12 0RF magnesium oxide 400 mg (241.3 mg magnesium) tablet 500 mg PO DAILY@12 0RF nitroglycerin 0.4 mg tablet, sublingual 0.4 mg sublingual Q5M PRN (Reason: chest pain) 30 Days Qty: 30 3RF Rx Instructions: until response; do not exceed 3 doses per episode quetiapine [Seroquel] 50 mg tablet 50 mg PO DAILY Qty: 30 11RF citalopram 40 mg tablet 40 mg PO QAM Qty: 30 11RF furosemide 20 mg tablet 40 mg PO DAILY PRN0RF insulin lispro [Humalog KwikPen Insulin] 100 unit/mL insulin pen 10 unit SUBCUT TID 0RF potassium chloride 8 mEq capsule, extended release 8 meq PO DAILY 0RF hydrocortisone 20 mg tablet See Rx Instructions PO BID@07,12 Qty: 270 3RF Rx Instructions: 20 MG in am 20 MG IN PM (DME) blood sugar diagnostic Strip See Rx Instructions .Route Qty: 400 3RF Rx Instructions: Check blood sugar 4 times a day. (DME) lancets [Comfort EZ Lancets] 21 gauge misc See Rx Instructions .Route Qty: 400 3RF Rx Instructions: As directed (DME) Easymax 15 test strips Strip See Rx Instructions .Route Qty: 400 3RF Rx Instructions: Check BS 4 times a day. (DME) pen needle, diabetic [BD Ultra-Fine Mini Pen Needle] 31 gauge x 3/16 needle See Rx Instructions .ROUTE .COMPLEX Qty: 100 0RF Dose Instruction: USE DIRECTED Rx Instructions: USE DIRECTED atorvastatin 40 mg tablet 40 mg PO BEDTIME 0RF aspirin [Ecotrin Low Strength] 81 mg tablet,delayed release (DR/EC) 81 mg PO DAILY Qty: 30 3RF valsartan 320 mg tablet 320 mg PO DAILY Qty: 90 3RF albuterol sulfate 90 mcg/actuation HFA aerosol inhaler 2 puff INHALATION PRN PRN (Reason: Shortness Of Breath) 0RF esomeprazole magnesium 40 mg capsule,delayed release(DR/EC) 40 mg PO BID Qty: 0 0RF hydrocodone-acetaminophen 7.5-325 mg tablet 1 tab PO QID PRN (Reason: Pain) 0RF Vitamin C Gummies 3 tab PO DAILY@12 0RF clopidogrel 75 mg tablet 75 mg PO QPM 0RF Rx Instructions: Must be seen for future refills Tresiba FlexTouch U-200 200 unit/mL (3 mL) insulin pen 30 unit SUBCUT QPM 0RF Discharge Orders: Discharge ED (Routine); Ordered 11/13/21 Ordered By: Enrico Camejo Referrals: Arabella Orta MD [Primary Care Provider] - Gilma Cai MD [Physician] - 1-3 days Discharge Diet: Advance as tolerated Discharge Activity: Resume usual activity Patient Instructions: Chest Pain (ED) Coding Level of Care Code ED Accountant Budget for Chg Fwd Exam Comprehensive
--- NOTE | 2021-11-13 18:18 | PC.NURSE ---
Pt placed on continuous cardiac, BP, and SpO2 monitoring upon arrival into room.
[2021-11-13 18:50] LABS: Basophils % 0.4 %; Eosinophils % 0.4 %; Hematocrit 38.7 % (37.0-47.0); Hemoglobin 13.1 g/dL (11.5-15.3); Lymphocytes # 1.6 10^3/uL (0.8-4.8); Lymphocytes % 18.4 %; Mean Corpuscular HGB Conc 33.9 g/dL (30.0-36.0); Mean Corpuscular Hemoglobin 30.9 pg (28.0-34.0); Mean Corpuscular Volume 91.3 fl (81-99); Mean Platelet Volume 10.1 fL (7.4-10.4); Monocytes # 0.6 10^3/uL (0.2-0.9); Monocytes % 6.5 %; Neutrophils # 6.61 10^3/uL (1.8-7.7); Neutrophils % 74.1 %; Nucleated Red Blood Cells % 0 %; Platelet Count 219 10^3/cmm (130-400); Red Blood Count 4.24 10^6/uL (4.1-5.3); Red Cell Distribution Width 12.5 % (12.1-15.1); White Blood Count 8.9 10^3/uL (4.0-10.0)
[2021-11-13 19:07] LABS: D Dimer 0.44 ug/mIFEU (0-0.59)
[2021-11-13] MEDS: aspirin 81 mg Chew Tablet 324 MG PO (19:19)
[2021-11-13 19:32] LABS: Alanine Aminotransferase 25 U/L (0-33); Albumin Level 4.5 g/dL (3.5-5.2); Alkaline Phosphatase 118 IU/L (35-105); Aspartate Amino Transferase 19 U/L (0-32); Blood Urea Nitrogen 12 mg/dL (8-23); Calcium 9.9 mg/dL (8.5-10.5); Carbon Dioxide 25 mmol/L (22-29); Chloride 94 mmol/L (98-107); Globulin 2.6 g/dL (1.3-4.6); Glucose 254 mg/dL (65-115); Lipase 16 U/L (13-60); NT Pro B Type Natriuretic Pept 81 pg/mL (0-450); Osmolality Calculated 284 mOsm/kg (285-295); Sodium 133 mmol/L (136-145); Total Bilirubin 0.4 mg/dL (0.15-1.2); Total Protein 7.1 g/dL (6.6-8.7)
[2021-11-13 19:33] LABS: Troponin(5th) Baseline 11 ng/L (0-10)
[2021-11-13] MEDS: nitroglycerin 0.4 mg sublingual Tablet SUBLINGUAL (20:02)
[2021-11-13 21:25] LABS: Troponin 5 2HR 9.79 ng/L (0-10)
[2021-11-13 21:31] LABS: Troponin 5 2HR Delta -1.21 ABS# (0-10)
[2021-11-13] MEDS: lidocaine 2% viscous 15 ML, aluminum-mag hydrox-simethicon 30 ML, sucralfate oral liq 1 GM PO (22:14)
[2021-11-13] MEDS: HYDROcodone-acetaminophen 5-325 mg Tablet 1 TAB PO (22:14)
--- NOTE | 2021-11-14 15:06 | DCPLANNER ---
Addendum entered by Parvin Alvarez 12/15/21 10:59: Patient had a follow up appointment scheduled with cardiology - patient did attend appointment. Original Note: corporate quality manager had message to schedule a follow up appointment for patient with cardiology. corporate quality manager sent patients information to the front office staff at [facility]. Patients information will be printed and reviewed. Clinic will call patient with appointment information.
== END 2021-11-13 23:11 | disposition home or self-care (01) ==
PROVIDERS: Emergency Medicine; Emergency Provider Emergency Medicine; PCP Family Medicine
DX: R07.9 Chest pain, unspecified (principal); Z79.4 Long term (current) use of insulin; Z79.82 Long term (current) use of aspirin; Z79.02 Long term (current) use of antithrombotics/antiplatelets; I25.10 Atherosclerotic heart disease of native coronary artery without angina pectoris; I10 Essential (primary) hypertension; E78.5 Hyperlipidemia, unspecified; I25.118 Atherosclerotic heart disease of native coronary artery with other forms of angina pectoris
CPT/HCPCS: 36415; 71045; 80053; 83690; 83880; 84484; 85025; 85378; 93005; 99213; 99285

== ENCOUNTER 2021-11-14 03:02 | Observation (INO) | payer MEDICARE, OTHER, SELFPAY ==
[2021-11-14] VITALS (33 sets, daily range): BP systolic 121–184; BP diastolic 52–92; PULSE 70–90; RESP 14–25; TEMP 36.1–36.7; O2SAT 93–100
--- NOTE | 2021-11-14 03:03 | XRR_ITS ---
PROCEDURE INFORMATION: Exam: XR Chest Exam date and time: 11/14/2021 3:07 AM Age: 76 years old Clinical indication: Chest pressure; Prior surgery; Surgery type: Coronary stent; Patient HX: C/O chest pain. Hypertensive. ; Additional info: Cp TECHNIQUE: Imaging protocol: Radiologic exam of the chest. Views: 1 view. COMPARISON: CR (CHEST, ) 11/13/2021 6:12 PM FINDINGS: Lungs: Unremarkable. No consolidation. Pleural spaces: Unremarkable. No pleural effusion. No pneumothorax. Heart/Mediastinum: Unremarkable. No cardiomegaly. Bones/joints: Unremarkable. XR/XR chest 1V portable [id number] IMPRESSION: No acute findings.
--- NOTE | 2021-11-14 03:03 | ECG_ITS ---
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 Measurements Intervals [place] Rate: 82 P: 169 RI: 160 QRS: -25 QRSD: 103 T: 100 QT: 363 QTc: 425 Interpretive Statements SINUS RHYTHM BORDERLINE LEFT AXIS DEVIATION [QRS AXIS < -20] NONSPECIFIC ST & T-WAVE ABNORMALITY Compared to ECG 11/13/2021 18:04:01 No significant changes Electronically Signed On 11-14-2021 22:53:13 CDT by Honey Smart M.D. [email or web address]
--- NOTE | 2021-11-14 03:12 | W.ED.CHESTPA ---
HPI - Chest Pain General: Chief Complaint: Chest Pain Stated Complaint: CP Time Seen by Provider: 11/14/21 03:03 Source: patient and EMS Mode of arrival: EMS Limitations: no limitations History of Present Illness: 76-year-old female who was seen here early night for chest pain she had negative D-dimer and troponins had felt improved and wanted to go home. She states that over the last few hours she has had increasing pain in her chest. States pain is sharp in nature rates it a 10 out of 10 had some slight dyspnea as well. She denies any worsening improving factors denies any vomiting or diarrhea she does have a history of heart disease. Associated symptoms: Deny abdominal pain, dyspnea, fever(s), nausea or vomiting Review of Systems Const: Denies: fever(s), chills, body aches or change in appetite Eyes: Denies: blurry vision or eye discomfort ENMT: Denies: throat pain or dental pain Card: Reports: chest pain Resp: Denies: dyspnea GI: Denies: abdominal pain, nausea, vomiting or diarrhea : Denies: dysuria Musc: Denies: neck pain or back pain Skin/Breast: Denies: rash Neuro: Denies: headache(s) Psych: Denies: depression Gael/Lymph: Denies: easy bruising All/Imm: Denies: urticaria PFSH ED PFSH: Medical History Acute cystitis Anemia, chronic disease 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 Left axis deviation. Normal VT and QRS duration. Intervertebral disc disorder with radiculopathy of lumbosacral region Psychiatric care Psychiatric care Recurrent UTI Status post left heart catheterization Surgical History History of colonoscopy (~2018) History of coronary artery stent placement History of right knee surgery S/P appendectomy S/P hernia repair S/P hip replacement S/P hysterectomy Family History Family/Other Diabetes Other Cancer Social History Smoking and tobacco status: never smoked Alcohol intake: never Household members: spouse Marital status: Current occupational status: retired History of recent travel: No Physical Exam Const: COMMON NORMALS: no acute distress, patient oriented x3 and healthy appearing HENMT: COMMON NORMALS: normocephalic and atraumatic HEAD & SCALP: normocephalic and atraumatic Eye: COMMON NORMALS: Equal, round and reactive pupils present and EOMs intact bilaterally PUPIL: Yes Equal, round and reactive pupils present Neck/C-Spine: COMMON NORMALS: full ROM and supple Chest: COMMONS NORMALS: normal inspection of the chest and normal palpation of entire chest wall Resp: COMMON NORMALS: normal respiratory effort, No retractions, No use of accessory muscles and clear to auscultation bilaterally AUSCULTATION: clear to auscultation bilaterally Cardio: COMMON NORMALS: regular rate, regular rhythm and No murmurs present (Cardio) RATE: regular rate RHYTHM: regular rhythm GI: COMMON NORMALS: Normal to inspection, nondistended, normoactive bowel sounds present, Soft to palpation, non-tender and no masses PALPATION: Yes Soft to palpation Extremity: COMMON NORMALS: normal to inspection and full ROM Neuro: COMMON NORMALS: patient oriented x3, moves all extremities and no focal motor deficits Psych: COMMON NORMALS: mental status grossly normal, Normal thought process present and cooperative THOUGHT PROCESS: Normal thought process present Skin: COMMON NORMALS: no rashes or lesions noted and no wounds GENERAL SKIN EXAM: no rashes or lesions noted Course Vital Signs: Vital signs: Vital Signs Temperature 97.0 F L 11/14/21 03:16 Pulse Rate 84 11/14/21 03:26 Respiratory Rate 18 11/14/21 03:26 Blood Pressure 184/79 11/14/21 03:26 Pulse Oximetry 93 11/14/21 03:26 MDM - Chest Pain Medical Decision Making Patient presents here with chest pain. Patient's troponin here is negative she had a D-dimer that was normal earlier. No sign of dissection or pulm embolism spoke to hospitalist and will admit for observation. Lab Data : 11/14/21 03:27 11/14/21 03:27 Laboratory Results WBC 6.3 10^3/uL (4.0-10.0) 11/14/21 03: RBC 4.02 10^6/uL (4.1-5.3) L 11/14/21 03: Hgb 12.6 g/dL (11.5-15.3) 11/14/21 03: Hct 36.2 % (37.0-47.0) L 11/14/21 03: MCV 90.0 fl (81-99) 11/14/21 03: MCH 31.3 pg (28.0-34.0) 11/14/21 03: MCHC 34.8 g/dL (30.0-36.0) 11/14/21 03: RDW 12.4 % (12.1-15.1) 11/14/21 03: Plt Count 211 10^3/cmm (130-400) 11/14/21 03: MPV 9.8 fL (7.4-10.4) 11/14/21 03: Neut % (Auto) 51.5 % 11/14/21 03:27 Lymph % (Auto) 35.5 % 11/14/21 03:27 [place] % (Auto) 9.8 % 11/14/21 03:27 Eos % (Auto) 2.4 % 11/14/21 03:27 Baso % (Auto) 0.5 % 11/14/21 03:27 Neut # (Auto) 3.27 10^3/uL (1.8-7.7) 11/14/21 03: Lymph # (Auto) 2.3 10^3/uL (0.8-4.8) 11/14/21 03:27 [place] # (Auto) 0.6 10^3/uL (0.2-0.9) 11/14/21 03:27 Eos # (Auto) 0.2 10^3/uL (0.0-0.8) 11/14/21 03: Baso # (Auto) 0.0 10^3/uL (0.0-0.1) 11/14/21 03:27 Nucleated RBC % (auto) 0 % 11/14/21 03: Nucleated RBCs # 0.0 /100WBC 11/14/21 03:27 Sodium 135 mmol/L (136-145) L 11/14/21 03:27 Potassium 3.6 mmol/L (3.5-5.1) 11/14/21 03:27 Chloride 98 mmol/L (98-107) 11/14/21 03:27 Carbon Dioxide 25 mmol/L (22-29) 11/14/21 03:27 Anion Gap 15.6 (5-19) 11/14/21 03:27 BUN 12 mg/dL (8-23) 11/14/21 03:27 Creatinine 0.6 mg/dL (0.5-0.9) 11/14/21 03:27 GFR Calculation Not Reportable 11/14/21 03:27 Glucose 177 mg/dL (65-115) H 11/14/21 03:27 Calculated Osmolality 284 mOsm/kg (285-295) L 11/14/21 03:27 Calcium 9.4 mg/dL (8.5-10.5) 11/14/21 03:27 Total Bilirubin 0.4 mg/dL (0.15-1.2) 11/14/21 03:27 AST 18 U/L (0-32) 11/14/21 03:27 ALT 21 U/L (0-33) 11/14/21 03:27 Alkaline Phosphatase 104 IU/L (35-105) 11/14/21 03:27 Troponin T Baseline 12 ng/L (0-10) H 11/14/21 03:27 Total Protein 6.6 g/dL (6.6-8.7) 11/14/21 03:27 Albumin 4.1 g/dL (3.5-5.2) 11/14/21 03:27 Globulin 2.5 g/dL (1.3-4.6) 11/14/21 03:27 Lipase 13 U/L (13-60) 11/14/21 03:27 EKG Data EKG 1: I personally reviewed and interpreted this EKG as follows: EKG interpretation date: 11/14/21 EKG interpretation time: 03:10 Interpretation: nsr hr [address] or t wave abnormalities qrs 103 qtc 401 Discharge Plan Discharge Patient Disposition: Admitted As Inpatient Clinical Impression: Chest pain Condition: Stable Coding Level of Care Code ED Specimen Boss for Chg Fwd Exam Comprehensive
[2021-11-14] MEDS: fentaNYL 50 mcg/mL INJ 2mL IVP (03:20)
[2021-11-14] MEDS: nitroglycerin 0.4 mg sublingual Tablet SUBLINGUAL ×4 (03:29→11:11)
[2021-11-14 03:35] LABS: Basophils % 0.5 %; Eosinophils # 0.2 10^3/uL (0.0-0.8); Eosinophils % 2.4 %; Hematocrit 36.2 % (37.0-47.0); Hemoglobin 12.6 g/dL (11.5-15.3); Lymphocytes # 2.3 10^3/uL (0.8-4.8); Lymphocytes % 35.5 %; Mean Corpuscular HGB Conc 34.8 g/dL (30.0-36.0); Mean Corpuscular Hemoglobin 31.3 pg (28.0-34.0); Mean Platelet Volume 9.8 fL (7.4-10.4); Monocytes # 0.6 10^3/uL (0.2-0.9); Monocytes % 9.8 %; Neutrophils # 3.27 10^3/uL (1.8-7.7); Neutrophils % 51.5 %; Nucleated Red Blood Cells % 0 %; Platelet Count 211 10^3/cmm (130-400); Red Blood Count 4.02 10^6/uL (4.1-5.3); Red Cell Distribution Width 12.4 % (12.1-15.1); White Blood Count 6.3 10^3/uL (4.0-10.0)
[2021-11-14 03:55] LABS: Alanine Aminotransferase 21 U/L (0-33); Albumin Level 4.1 g/dL (3.5-5.2); Alkaline Phosphatase 104 IU/L (35-105); Anion Gap 15.6 (5-19); Aspartate Amino Transferase 18 U/L (0-32); Blood Urea Nitrogen 12 mg/dL (8-23); Calcium 9.4 mg/dL (8.5-10.5); Carbon Dioxide 25 mmol/L (22-29); Chloride 98 mmol/L (98-107); Globulin 2.5 g/dL (1.3-4.6); Glucose 177 mg/dL (65-115); Lipase 13 U/L (13-60); Osmolality Calculated 284 mOsm/kg (285-295); Potassium 3.6 mmol/L (3.5-5.1); Sodium 135 mmol/L (136-145); Total Bilirubin 0.4 mg/dL (0.15-1.2); Total Protein 6.6 g/dL (6.6-8.7)
[2021-11-14 03:56] LABS: Troponin(5th) Baseline 12 ng/L (0-10)
--- NOTE | 2021-11-14 04:15 | P.HP_ITS ---
Providers/Chief Complaint Admitting Physician: Livan Snyder MD Primary Care Provider: Arabella Orta MD Chief Complaint: CP History of Present Illness Brandi Berg is a 76 year old female with past medical history of hypertension diabetes coronary artery disease s/p recent PCI to LAD and OM1, has prior PCI to RCA, came in with chief complaint of Substernal chest pain 10 out of 10 in severity, sharp, radiating to back, minimally relieved with pain medication, she says that she is having chest pain for about a week time, but today it was worse, chest pain is also associated with shortness of breath, she was seen by the nurse practitioner Roseline Palomares in the clinic and was then sent to ER for further evaluation. She was seen in the ER earlier during the day, and was sent home as the troponin trends were negative, as well as EKG failed to show any acute ST-T wave changes. She returned back to the ER as she continued to experience the pain even after reaching home. Currently she denies any fever, cough, headache nausea vomiting, abdominal pain. Upon arrival in the ER she was worked up for above-mentioned complaint: X-ray chest: No acute findings EKG: SINUS RHYTHM, BORDERLINE LEFT AXIS DEVIATION? [QRS AXIS < -20] ,NONSPECIFIC ST & T-WAVE ABNORMALITY. Pertinent Labs: WBC 6.3, H&H 12.6/ 36 PLT : 211 , serum sodium 135 serum potassium 3.6 BUN and serum creatinine 12 and 0.6, Troponin trend: 11-9 Review of Systems General: Reports: 10 or more systems reviewed and unremarkable except in HPI and below Const: Denies: fever(s), chills, body aches, change in appetite or diaphoresis Card: Denies: palpitations, edema, swelling of feet/ankles, dyspnea on exertion, orthopnea or leg pain with exertion Resp: Denies: dyspnea, productive cough, wheezing or pain on inspiration GI: Denies: abdominal pain, nausea, vomiting, diarrhea or constipation : Denies: flank pain Musc: Denies: back pain, extremity pain or extremity swelling Neuro: Denies: headache(s), difficulty walking or confusion Medications/Allergies Home Medications Medication Instructions Recorded Confirmed Last Taken Type Lactobacillus acidophilus 1 cap PO QAM cap 06/01/19 11/13/21 07/23/21 History (Acidophilus) cholecalciferol (vitamin D3) 25 1,000 unit PO QPM cap 06/01/19 11/13/21 07/23/21 History mcg (1,000 unit) capsule cranberry 500 mg capsule 500 mg PO DAILY@12 cap 06/01/19 11/13/21 07/23/21 H istory dicyclomine 10 mg capsule 10 mg PO QID 06/01/19 11/13/21 07/23/21 History ondansetron HCl 4 mg tablet 4 mg PO Q6H PRN tab 06/01/19 11/13/21 06/03/21 History (Zofran) ferrous sulfate 325 mg (65 mg 325 mg PO DAILY@12 06/21/19 11/13/21 07/23/21 History iron) tablet atorvastatin 40 mg tablet 40 mg PO BEDTIME 09/06/20 11/13/21 07/23/21 History lactulose 10 gram/15 mL oral 15 ml PO DAILY@12 ml 02/11/21 11/13/21 07/23/21 History solution magnesium oxide 400 mg (241.3 mg 500 mg PO DAILY@12 tab 02/14/21 11/13/21 07/23/21 History magnesium) tablet Vitamin C Gummies 3 tab PO DAILY@12 02/21/21 11/13/21 06/04/21 History clopidogrel 75 mg tablet 75 mg PO QPM 02/21/21 11/13/21 07/23/21 History hydrocodone 7.5 mg-acetaminophen 1 tab PO QID PRN 02/21/21 11/13/21 07/23/21 History 325 mg tablet polyethylene glycol 3350 17 17 g PO DAILY 03/24/21 11/13/21 06/03/21 History gram/dose oral powder (Miralax) hydrocortisone 20 mg tablet See Rx Instructions PO BID@07,12 05/01/21 11/13/21 07/23/21 Rx #270 tab insulin degludec 200 unit/mL (3 30 unit SUBCUT QPM ml 05/08/21 11/13/21 07/23/21 History mL) subcutaneous pen (Tresiba FlexTouch U-200 insulin) nitroglycerin 0.4 mg sublingual 0.4 mg SUBLINGUAL Q5M PRN 30 Days 06/03/21 11/13/21 07/23/21 Rx tablet #30 tab aspirin 81 mg tablet,delayed 81 mg PO DAILY #30 tab 06/06/21 11/13/21 07/23/21 Rx release (Ecotrin Low Strength) valsartan 320 mg tablet 320 mg PO DAILY #90 tab 06/06/21 11/13/21 07/23/21 Rx albuterol sulfate 90 mcg/actuation 2 puff INHALATION PRN PRN 07/24/21 11/13/21 Unknown History aerosol inhaler esomeprazole magnesium 40 mg 40 mg PO BID #0 cap 07/24/21 11/13/21 07/23/21 Rx capsule,delayed release chlorthalidone 25 mg tablet 25 mg PO DAILY #90 tab 08/20/21 09/24/21 Unknown Rx prednisone 1 mg tablet 2 mg PO DAILY #90 tab 08/21/21 11/13/21 Unknown Rx blood sugar diagnostic #400 ea 09/02/21 11/13/21 Unknown Rx lancets 21 gauge (Comfort EZ #400 ea 09/02/21 11/13/21 Unknown Rx Lancets) blood sugar diagnostic (Easymax 15 #400 ea 09/11/21 11/13/21 Unknown Rx test strips) citalopram 40 mg tablet 40 mg PO QAM #30 tab 09/11/21 11/13/21 Unknown Rx quetiapine 50 mg tablet (Seroquel) 50 mg PO DAILY #30 tab 09/11/21 11/13/21 Unknown Rx isosorbide mononitrate 120 mg 120 mg PO DAILY #90 tab 09/22/21 11/13/21 Unknown Rx tablet,extended release 24 hr furosemide 20 mg tablet 40 mg PO DAILY PRN tab 11/13/21 11/13/21 Unknown History insulin lispro 100 unit/mL 10 unit SUBCUT TID 11/13/21 11/13/21 Unknown History subcutaneous pen (Humalog KwikPen (U-100) Insulin) pen needle, diabetic 31 gauge x #100 ea 11/13/21 Unknown Rx 3/16 (BD Ultra-Fine Mini Pen Needle) potassium chloride 8 mEq 8 meq PO DAILY 11/13/21 11/13/21 Unknown History capsule,extended release Allergies Allergy/AdvReac Type Severity Reaction Status Date / Time morphine Allergy Severe RESPIRATORY Verified 11/13/21 15:50 DISTRESS doxycycline Allergy Mild THROAT Verified 11/13/21 15:50 SWELLING duloxetine [From Cymbalta] Allergy Mild SWELLING, Verified 11/13/21 15:50 VOMITING metformin Allergy Mild THROAT Verified 11/13/21 15:50 SWELLING oxybutynin [From Oxytrol] Allergy Mild ALGY-Rash Verified 11/13/21 15:50 Penicillins Allergy Mild ALGY-Rash Verified 11/13/21 15:50 Sulfa (Sulfonamide Allergy Mild STOMACH Verified 11/13/21 15:50 Antibiotics) CRAMPS alprazolam [From Xanax] Allergy Unknown Unknown Verified 11/13/21 15:50 amitriptyline Allergy Unknown Unknown Verified 11/13/21 15:50 Barbiturates Allergy Unknown Unknown Verified 11/13/21 15:50 cefuroxime [From Ceftin] Allergy Unknown Unknown Verified 11/13/21 15:50 insulin detemir Allergy Unknown Unknown Verified 11/13/21 15:50 [From Levemir U-100 Insulin] levofloxacin [From Levaquin] Allergy Unknown Unknown Verified 11/13/21 15:50 liraglutide [From Victoza] Allergy Unknown Unknown Verified 11/13/21 15:50 metoclopramide [From Reglan] Allergy Unknown Unknown Verified 11/13/21 15:50 nitrofurantoin Allergy Unknown Unknown Verified 11/13/21 15:50 [From Macrobid] pregabalin [From Lyrica] Allergy Unknown Unknown Verified 11/13/21 15:50 meloxicam AdvReac Severe ADR-Vomitin Verified 11/13/21 15:50 g ciprofloxacin [From Cipro] AdvReac Mild stomach Verified 11/13/21 15:50 upset hydromorphone [From Dilaudid] AdvReac Unknown PT STATES Verified 11/13/21 15:50 IT MAKES ME CRAZY PFSH Acute PFSH: Medical History Acute cystitis Anemia, chronic disease Atherosclerotic heart disease of [place] coronary artery without angina pectoris Axonal sensorimotor neuropathy Benign essential hypertension with target blood pressure below 140/90 Benign neoplasm of cerebral meninges Bipolar II disorder Dyslipidemia (high LDL; low HDL) Gross hematuria Heart palpitations The EKG showed a sinus rhythm with some nonspecific T wave changes. Left axis deviation. Normal RI and QRS duration. Intervertebral disc disorder with radiculopathy of lumbosacral region Psychiatric care Psychiatric care Recurrent UTI Status post left heart catheterization Surgical History History of colonoscopy (~2018) History of coronary artery stent placement History of right knee surgery S/P appendectomy S/P hernia repair S/P hip replacement S/P hysterectomy Family History Family/Other Diabetes Other Cancer Social History Smoking and tobacco status: never smoked Alcohol intake: never Household members: spouse Marital status: Current occupational status: retired History of recent travel: No Vitals/I&O/Wt Last Vital Signs Temp 97.0 F L 11/14/21 03:16 Pulse 81 11/14/21 03:56 Resp 20 H 11/14/21 03:56 BP 169/71 11/14/21 03:56 Pulse Ox 98 11/14/21 03:56 Weight last 48 hrs Weight 96.162 kg Physical Exam Const: COMMON NORMALS: patient oriented x3 HENMT: COMMON NORMALS: normocephalic and atraumatic HEAD & SCALP: normocephalic and atraumatic Resp: COMMON NORMALS: clear to auscultation bilaterally EFFORT & INSPECTION: Yes symmetric chest movement AUSCULTATION: clear to auscultation bilaterally Cardio: COMMON NORMALS: regular rate, regular rhythm, S1 normal heart sound present, S2 normal heart sound present, No gallops present (Cardio), No murmurs present (Cardio), No rub (Cardio) and Peripheral pulses 2+ throughout RATE: regular rate RHYTHM: regular rhythm HEART SOUNDS: S1 normal heart sound present and S2 normal heart sound present PERIPHERAL PULSES: Peripheral pulses 2+ throughout GI: COMMON NORMALS: Normal to inspection, nondistended, normoactive bowel soun ds present, Soft to palpation, non-tender, No hepatosplenomegaly present and no masses AUSCULTATION: Yes normoactive bowel sounds PALPATION: Yes Soft to palpation and Yes No hepatosplenomegaly present RECTAL EXAM: deferred Neuro: COMMON NORMALS: patient oriented x3 Data : 11/14/21 03:27 11/14/21 03:27 A&P Assessment and plan (1) Chest pain: Status: Acute (2) Diabetes: Status: Acute (3) Hypertension: Status: Acute (4) CAD (coronary artery disease): Status: Acute Plan 76 year old female with past medical history of hypertension diabetes coronary artery disease s/p recent PCI to LAD and OM1, has prior PCI to RCA, came in with chief complaint of Substernal chest pain 10 out of 10 in severity, sharp, radiating to back, minimally relieved with pain medication, she says that she is having chest pain for about a week time, but today it was worse, chest pain is also associated with shortness of breath, she was seen by the nurse practitioner Roseline Palomares in the clinic and was then sent to ER for further evaluation. Assessment: Chest pain Hypertension Diabetes coronary artery disease s/p recent PCI Plan: Follow 2D echo Follow-up CT chest Continue aspirin Plavix Imdur, will add Ranexa Continue Lantus, SSI, monitor fingerstick glucose Continue losartan Continue Lovenox for DVT prophylaxis Consult cardiology in the morning CODE STATUS: Full code DVT prophylaxis: On Lovenox Attestations Medical Necessity Statement*: Patient is to be in hospital for management of chest pain. Time Spent in Patient Care: Greater than 35 minutes (>than 50% of time spent in counselling and/or direct pt care on unit) . Coding Level of Care Code Acute Extermination Supervisor for Chg Fwd Exam Detailed Diagnoses Chest pain R07.9 Diabetes E11.9 Hypertension I10 CAD (coronary artery disease) I25.10
--- NOTE | 2021-11-14 04:17 | USCV_ITS ---
Morena Brandi Age: 76 Gender: F : 1945 Exam Date: 11/14/2021 07:05 Ordering Phys: Livan Snyder MD Technologist: Geraldine Trevizo [place]am [place] [facility] [place] Indication: CHEST PAIN BP: 167 / 65 HR: 69 Rhythm: Sinus Technical Quality: Adequate MEASUREMENTS (Male / Female) Normal Values 2D ECHO LV Diastolic Diameter PLAX 3.9 cm 4.2 - 5.9 / 3.9 - 5.3 cm LV Systolic Diameter PLAX 2.6 cm LV Chamber Size 3.2 cm IVS Diastolic Thickness 1.7 cm 0.6 - 1.0 / 0.6 - 0.9 cm IVS Systolic Thickness 1.6 cm LVPW Diastolic Thickness 1.6 cm 0.6 - 1.0 / 0.6 - 0.9 cm LVPW Systolic Thickness 1.8 cm RV Chamber Size 3.2 cm LVOT Diameter 2.0 cm LV Ejection Fraction 2D Teich 64.3 % LV Ejection Fraction MOD 2C 62.7 % LV Ejection Fraction 2C AL 65.9 % LA Diameter 3.5 cm LA Width 2.9 cm LA Height 5.0 cm RA Width 3.8 cm RA Height 4.7 cm Aorta at Sinotubular Diameter 2.7 cm IVC Diameter 1.4 cm M-MODE Aortic Annulus Diameter 3.0 cm LA Ao Ratio MM 1.3 MV E Point Septal Separation 0.7 cm DOPPLER AV Peak Velocity 156.0 cm/s LVOT Peak Velocity 99.0 cm/s AV Area Cont Eq vti 2.2 cm squared AV Area Cont Eq pk 2.0 cm squared MV Area PHT 3.1 cm squared Mitral E to A Ratio 0.8 MV E' Velocity 49.0 cm/s Mitral E to MV E' Ratio 15.0 Mitral E to LV E' Lateral Ratio 17.9 Mitral E to LV E' Septal Ratio 12.9 TR Peak Velocity 203.9 cm/s TR Peak Gradient 16.6 mmHg TR Mean Velocity 149.0 cm/s TR Mean Gradient 9.8 mmHg TR Velocity Time Integral 52.2 cm TV Peak E Velocity 71.0 cm/s Right Atrial Pressure 3.0 mmHg Pulmonary Artery Systolic Pressu 19.6 mmHg PV Peak Velocity 70.0 cm/s RV Acceleration Time 0.1 s RV Ejection Time 0.4 s RV AcT/ET 0.2 FINDINGS Left Ventricle Normal left ventricular size. LV systolic function is normal with EF of 55-60%. No regional wall motion abnormalities.Grade 1 diastolic dysfunction Right Ventricle The right ventricle is normal in size and function. Right Atrium The right atrium is normal in size. Left Atrium The left atrium is normal in size. Mitral Valve Structurally normal mitral valve without significant stenosis or prolapse. There is no mitral regurgitation. Aortic Valve Aortic valve is thickened without significant stenosis. There is no aortic regurgitation. Tricuspid Valve Structurally normal tricuspid valve without significant stenosis.Trace tricuspid regurgitation. Insufficient TR jet to calculate RVSP Pulmonic Valve Not well visualized Pericardium Normal pericardium without effusion. Aorta Normal ascending aorta dimension. IVC CONCLUSIONS LV systolic function is normal with EF of 55-60% Grade 1 diastolic dysfunction Trace tricuspid regurgitation Compared to prior echocardiogram from 05/08/2021, no significant change is seen Jose Sumner MD (Electronically Signed) Final Date: 14 November 2021 14:26 S
--- NOTE | 2021-11-14 04:52 | CT_ITS ---
WS: [id number] CTA THORACIC AORTA WITH AND WITHOUT CONTRAST. HISTORY: Rule out aneurysm and dissection. TECHNIQUE: CT imaging of the thorax is performed with and without contrast. After noncontrast imaging is performed, CT angiogram is performed during injection of Omnipaque 350; 85 mL IV.. Sagittal and c oronal reconstructions, sagittal and coronal MIP imaging is submitted. All CT scans at [facility] use at least one of these dose optimization techniques: automated exposure control; mA and/or kV adjustment per patient size (includes targeted exams where dose is matched to clinical indication); or iterative reconstruction. DLP: 1822.5 mGy.cm COMPARISON: 10/10/2018 Normal size thoracic aorta with scattered plaque and intimal thickening. No aneurysm. No displacement of the intimal calcifications. Aortic root and the ascending aorta are normal caliber. There is earlene fact through the ascending aorta due to cardiac contraction. No dissection or aneurysm. No displaceme nt of calcifications. No ulcerated plaque. Visualized suprarenal aorta is negative. Mild calcificatio n at the origin of the celiac axis and SMA. Normal size pulmonary artery. Centrally there is no pulmo nary embolism. Mild enlargement of the LEFT heart chambers. No RIGHT heart strain. No pericardial or pleural effusio n. No mass, nodule or pneumonia. No adenopathy. Small hiatal hernia. Hepatic steatosis. Prior cholecystectomy. Splenic granulomata. Normal thoracic alignment. Bridging osteophytes throughout the thoracic spine. No osteoblastic or ost eolytic bone disease. CT/CT angio chest [id number] IMPRESSION: 1. No thoracic aortic aneurysm or dissection. 2. Mild atherosclerotic plaque throughout the aorta. Calcification and intimal thickening. Surface of the intimal thickening and places is irregular. 3. No central pulmonary embolism. 4. Mild LEFT heart enlargement. 5. No pneumonia. 6. Prior cholecystectomy.
--- NOTE | 2021-11-14 05:03 | ECG_ITS ---
[facility] Test Date: 2021-11-14 Pat Name: Brandi Berg Department: Room: 251 Gender: Female Technical Support Intern: : 1945 Requested By: Enrico Camejo Order Number: [id number] Gamal MD: Honey Smart M.D. Measurements Intervals [place] Rate: 71 P: 42 FL: 161 QRS: -30 QRSD: 100 T: 14 QT: 390 QTc: 425 Interpretive Statements SINUS RHYTHM BORDERLINE LEFT AXIS DEVIATION [QRS AXIS < -20] LEFT VENTRICULAR HYPERTROPHY AND ST-T CHANGE [VOLTAGE CRITERIA PLUS ST/T ABNORMALITY] Compared to ECG 11/14/2021 03:10:22 Left ventricular hypertrophy now present ST (T wave) deviation now present T-wave abnormality no longer present Electronically Signed On 11-14-2021 23:11:16 CDT by Honey Smart M.D. [id number]
[2021-11-14] MEDS: enoxaparin 40 mg/0.4 mL Syringe SUBCUT (05:12)
[2021-11-14] MEDS: isosorbide mononitrate ER 60 mg Tablet 120 MG PO (05:13)
[2021-11-14] MEDS: acetaminophen 325 mg Tablet 650 MG PO (06:27)
[2021-11-14] MEDS: ondansetron 2 mg/ML SDV 2 mL 4 MG IVP (06:30)
[2021-11-14 06:39] LABS: Troponin 5 2HR 13.59 ng/L (0-10)
[2021-11-14 06:41] LABS: Troponin 5 2HR Delta 1.59 ABS# (0-10)
[2021-11-14 06:42] LABS: Glucose Point of Care 170 mg/dL (70-110)
[2021-11-14] MEDS: losartan 50 mg Tablet 100 MG PO (08:20)
[2021-11-14] MEDS: insulin lispro 100 unit/1 mL SUBCUT ×3 (08:21→22:24)
[2021-11-14] MEDS: aspirin 81 mg EC Tablet PO (08:21)
[2021-11-14] MEDS: pantoprazole DR 40 mg Tablet PO (08:21)
[2021-11-14] MEDS: ranolazine (12HR) 500 mg Tablet PO ×2 (08:21→17:45)
--- NOTE | 2021-11-14 09:03 | ECG_ITS ---
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 Measurements Intervals [place] Rate: 74 P: 39 ME: 167 QRS: -26 QRSD: 101 T: 70 QT: 375 QTc: 418 Interpretive Statements SINUS RHYTHM LEFT VENTRICULAR HYPERTROPHY AND ST-T CHANGE [VOLTAGE CRITERIA PLUS ST/T ABNORMALITY] POSSIBLE SEPTAL MYOCARDIAL INFARCTION , OF INDETERMINATE AGE [30 ms Q WAVE IN V1/V2] Compared to ECG 11/14/2021 06:41:04 Myocardial infarct finding now present ST (T wave) deviation still present Electronically Signed On 11-14-2021 23:10:35 CDT by Honey Smart M.D. [id number]
--- NOTE | 2021-11-14 09:23 | PC.PHAR ---
pt states she takes care of her own medications-pt states she has been taking lasix and kcl pt states she is unsure of the meq on the kcl notes are made in the pharmacy comments kcl 8meq daily was on a previous entered med list [facility] pharmacy states they havent filled kcl or lasix for the pt-pt states the chlorthalidone is on hold states she last took sat 11/08/21-
--- NOTE | 2021-11-14 09:28 | PM.MISC ---
Miscellaneous Note Purpose of Documentation: Mini Progress Note Note: Seen this morning. Patient having occasional chest pain 9 out of 10 associated shortness of breath. Vitals were checked and she was started on nitro drip and transferred to ICU. Cardiology alerted. Plan to take her to cath. Will reassess patient after cath. Rest of management as per history physical document.
--- NOTE | 2021-11-14 10:04 | ECG_ITS ---
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 Measurements Intervals [place] Rate: 76 P: 45 MI: 177 QRS: -26 QRSD: 98 T: 88 QT: 367 QTc: 413 Interpretive Statements SINUS RHYTHM BORDERLINE LEFT AXIS DEVIATION [QRS AXIS < -20] NONSPECIFIC T-WAVE ABNORMALITY Compared to ECG 11/14/2021 09:24:28 T-wave abnormality now present Left ventricular hypertrophy no longer present ST (T wave) deviation no longer present Myocardial infarct finding no longer present Electronically Signed On 11-14-2021 22:51:51 CDT by Honey Smart M.D. [id number]
[2021-11-14 10:13] LABS: Troponin 5 6HR 13.62 ng/L (0-10)
--- NOTE | 2021-11-14 10:15 | PC.NURSE ---
Report received from Graciela YO , [facility]. Pt to transfer to ICU for Nitro gtt. Pt complaining of chest pain at this time, moderate to severe pain. Fentanyl IVP q 12hrs, next dose not due until after 1500. This nurse noted nitro sublingual available and last dose was given around 0330, suggested Nitro subl be given now for patient's comfort.
[2021-11-14 10:16] LABS: Troponin 5 6HR Delta 1.62 ng/L (0-12)
[2021-11-14 10:59] LABS: Glucose Point of Care 191 mg/dL (70-110)
--- NOTE | 2021-11-14 10:59 | PC.CHAP ---
Pastoral Care Encounter/Spiritual Assessment Type of Contact [] Declined mass spectroscopist visit [] Patient/Family/Request visit [] Outpatient visit [] Follow-up visit [] Physician referral [] Code/Alert [x] Routine visit [] Staff referral [] Actively dying [] Patient sleeping [] Family support [] [] Out of room [] Palliative care [] [x] Receiving care in room [] Pre-surgical visit [] Trauma [] Long length of stay [] ICU visit [] Other: Relational/Emotional Strength [] Patient feels connected with others/family/visitors/staff [] Distress [] Loneliness/isolation [] Abandonment Spirituality of Patient [] Person of Ignacia [] Attends Judaism of their Ignacia [] Believes in Prayer [] Reads Bible or Mandaen materials [] There are Spiritual issues to be addressed Campus Security Officer Interventions [] Prayer [] Active listening [] Non-anxious presence [] Spiritual/emotional support [] Crisis/trauma care [] Spiritual counseling [] Bereavement support [] Provided bereavement packet [] Provided Bible/devotional materials [] Provided toy/stuffed animal, coloring book to patient or family member [] Provided Communion [] Anointing/[place] [] Salvation [] Completed spiritual assessment [] Other: Impact on Illness or Injury [] Angry [] Fearful [] Anxious [] Often cries [] Exhaustion [] Unable to work [] Unable to attend restorationism [] Unable to walk/stand [] Unable to read [] Unable to drive [] Unable to eat/drink [] Unable to sleep [] Unable to be with family [] Patient intubated [] Other: Summary Time spent with patient
--- NOTE | 2021-11-14 11:50 | PC.NURSE ---
1115: Pt to ICU from [facility] to have Nitro gtt. Pt alert and oriented. She is complaining of mild chest pain. Nitro gtt ordered entered. 1145: Nitro gtt ready and started.
--- NOTE | 2021-11-14 12:01 | XACV_ITS ---
Exam Room: [facility] Ht: 165 cm Wt: 97 kg BSA: 2.15 m2 Gender: Female : 1945 Any Known Allergies: Other Exam Priority: Routine Procedure(s): Procedure Description: Diagnostic procedure Procedure Description: Left Heart Catheterization Procedure Description: Coronary Angiography Diagnostic Cath Status: Urgent Diagnostic Findings * 76 year old female with past medical history of hypertension, diabetes, coronary artery disease s/p recent PCI of LAD who presented to the hospital yesterday from cardiology office with the complaints of chest pain. She was discharged home after ruling out ACS. However tonight she came back to the emergency room with severe substernal chest pain. She felt it was radiating to the left arm and also very similar to her prior cardiac pain. No troponin elevation. * No significant disease noted in the Left Main, Left Anterior Descending, or Circumflex coronary arteries. Mid to distal RCA has 20 to 30% disease. Patent stents in RCA and LAD.. * Coronary angiography shows right dominance. Conclusions 1. No significant disease noted in the Left Main, Left Anterior Descending, or Circumflex coronary arteries. Mid to distal RCA has 20 to 30% disease. Patent stents in RCA and LAD.. Recommendations * Aggressive risk factor modification. * Outpatient cardiology follow up in 4 weeks. Interventional RX Recommendation: medical therapy and/or counseling Diagnostic RX Recommendation: medical therapy and/or counseling Anticoagulation: Heparin Pressures Phase:Rest AO : 159 / 95 ( 126 ) @ 1:51:00 PM 168 / 100 ( 133 ) @ 1:52:00 PM 183 / 65 ( 111 ) @ 1:57:00 PM 184 / 65 ( 111 ) @ 1:57:00 PM LV : 181 / -13 / 17 @ 1:57:00 PM 180 / -9 / 15 @ 1:57:00 PM Valves Phase:DefaultPhase AV : 0.0 @ 1:02:21 PM AV Mean Gradient: 0.0 @ 1:02:21 PM Clinical Evaluation EBL: 5mL-10mL Procedural Details Procedure Consent Obtained. Admit Source: In Patient. Pre-Procedure Time Out. Identified patient by full name and date of as verbalized by the patient/guarantor. Does the consent match the physician's order: Yes. Accurate & Complete Informed Consent: Yes. Inpatient/Outpatient History & Physical on Chart: Yes. If H&P is completed, is and addenduem needed: N/A; If yes, is the addendum complete: N/A. Visualize and Verify Site with Patient/Guarantor: N/A. Relevant Radiology Images available: N/A. Pre-op teaching completed and patient verbalized understanding. The risks, benefits, and alternatives of sedation and/or procedure were discussed by physician. The patient agrees to continue. Procedure started. [facility] Clinical Fraility Score: 4: Vulnerable. Broiler Supervisor Indications: Worsening Angina. Chest Pain Symptom Assessment: Typical Angina Symptoms. Correct patient, site and procedure confirmed by cath team. Current diagnosis: Chest Pain. PERRLA. Strong, equal hand social media coordinator bilaterally. Lungs clear x 5 lobes. IV Site on Arrival: 20 gauge in the left hand. IV Fluids: 0.9% NaCl at KVO. 0 mL infused prior to coreroom foundry laborer. Pre Procedural Pulses: right radial was 3+. Pre Procedural Pulses: bilateral dorsalis pedis was 2+. Oxygen started at 2liters/min via nasal canula. right groin was prepped with chloroprep then draped in the usual sterile fashion. right radial was prepped with chloroprep then draped in the usual sterile fashion. Physician notified. Baseline sample Acquired. HR: 85 BPM. Physician arrived. Physician scrubbed in. Immediate Pre-Procedure Time Out. Correct Patient: Yes; Correct Procedure: Yes; Correct Site: Yes; Correct Patient Position: Yes; Correct Supplies: Yes; Dried Flammable Prep: Yes; Blood Products Available: N/A. Lidocaine 1% infiltrated to the right radial. Arterial access obtained. A 5 estonian TIG catheter in over wire. Multiple views taken of left coronary artery. Catheter redirected to the RCA. Multiple views taken of right coronary artery. EDP Sample taken: LV 181/-14,17; HR: 88 BPM; SpO2: 99%. Pullback taken: LV 180/-10,15; AO 183/65(111); Mean: 0mmHg, Peak to Peak: 0mmHg, SEP: 22sec/min; HR: 88 BPM; SpO2: 98%. Catheter out. Physician scrubbed out. Total IV fluids: 35 mL. Medication's Wasted: Lidocaine 1% = 4 mL. Medication's Wasted: Heparin = 1000 u. A TR Band was successful obtaining hemostatsis at the Right Radial artery insertion site. Post Procedure: Pulses reassessed and unchanged. PERRLA. Strong, equal hand social media coordinator bilaterally. No VTE prophylaxis required. Complications: none. Estimated blood loss: 5mL-10mL. Responsiveness - Normal response to verbal stimuli; alert and oriented, PERRLA. Airway - Unaffected, no intervention required; spontaneous ventilation. Circulation: W/N/L, pulses unchanged. Nausea/Vomiting: No. Procedure completed. Patient transferred by wheelchair to ICU. Post-op diagnosis: Non obstructive CAD, patent prior stents. Access Site Site: Right Radial artery Sheath Size: 6 Fr Hemostasis Method: TR Band Hemostasis Success: Successful Procedure Medications Start: 12:37 PM Stop: 12:37 PM Medication: Fentanyl Amount: 50 mcg Route: I.V. Start: 12:45 PM Stop: 12:45 PM Medication: Versed Amount: 1 mg Route: I.V. Start: 12:46 PM Stop: 12:46 PM Medication: Versed Amount: 1 mg Route: I.V. Start: 12:48 PM Stop: 12:48 PM Medication: Nitrogylcerin Amount: 400 mcg Route: I.A. Start: 12:48 PM Stop: 12:48 PM Medication: Heparin Amount: 5000 units Route: I.V. Start: 12:54 PM Stop: 12:54 PM Medication: Versed Amount: 1 mg Route: I.V. I, the attending physician, have reviewed and verified all procedure medications. Yes, all medications given per verbal order History/Risk Factors Hypertension: Yes Dyslipidemia: Yes Peripheral Arterial Disease (PAD): No Myocardial Infarction (TN): No Obesity: No Renal Disease: No Tobacco Use: Never Prior Interventions PCI: Yes CABG: No Valve Surgery: No Date of PCI: 06/05/2021 Report Signatures Finalized by Jose Sumner MD on 11/25/2021 10:52 AM
[2021-11-14] MEDS: nitroglycerin drip 50 MG/250 ML PREMIX IV (12:03)
--- NOTE | 2021-11-14 12:15 | PC.NURSE ---
Pt to high density press laborer.
--- NOTE | 2021-11-14 12:41 | W.PM.OPSUD ---
Surgery/Procedure H&P Update DATE OF PROCEDURE: November 14, 2021 DATE H&P PERFORMED: 11/14/21 H&P UPDATE INFORMATION: I have reviewed H&P completed within last 30 days, I have examined patient prior to procedure and No changes to prior documentation PREOP DIAGNOSIS: Unstable angina PRIMARY INDICATION FOR PROCEDURE: Unstable angina PLANNED PROCEDURE: Left heart cath with possible percutaneous coronary intervention PATIENT REASSESSED PRIOR TO SEDATION, WITH NO CHANGE NOTED: Yes PHYSICAL EXAM: alert, oriented x 3, clear to auscultation bilaterally and regular rate & rhythm AIRWAY EVAL/ANESTHESIA PLAN: ASA III, Monitored Anesthesia, Local Anesthesia, Risks, benefits & alternatives of sedation and/or procedure discussed and Patient agrees to continue as planned
--- NOTE | 2021-11-14 13:15 | PC.NURSE ---
Pt back from catheter builder VSS. TR band noted on right wrist, no bleeding or hematomas noted.
--- NOTE | 2021-11-14 13:52 | P.CONIM_ITS ---
Providers/Reason For Consult Consulting Physician/Specialty*: Jose Sumner MD/ Cardiology Reason for Consult*: Unstable angina Requesting Physician: Dr Mobley Attending Physician: Neha Mobley MD Primary Care Provider: Arabella Orta MD History of Present Illness History of Present Illness Brandi Berg is a 76 year old female with past medical history of hypertension, diabetes, coronary artery disease s/p recent PCI of LAD who presented to the hospital yesterday from cardiology office with the complaints of chest pain. She was discharged home of reporting out ACS. However tonight she came back to the emergency room with severe substernal chest pain. She felt it was radiating to the left arm and also very similar to her prior cardiac pain. EKG did not show significant ST-T changes. Troponins have not gone up significantly. She continues having on and off severe chest discomfort. Review of Systems Const: Denies: fever(s), chills, body aches or change in appetite Eyes: Denies: blurry vision or eye discomfort ENMT: Denies: throat pain or dental pain Card: Reports: chest pain Resp: Denies: dyspnea GI: Denies: abdominal pain, nausea, vomiting or diarrhea : Denies: dysuria Musc: Denies: neck pain or back pain Skin/Breast: Denies: rash Neuro: Denies: headache(s) Psych: Denies: depression Gael/Lymph: Denies: easy bruising All/Imm: Denies: urticaria Medications/Allergies Home Medications Medication Instructions Recorded Confirmed Last Taken Type Lactobacillus acidophilus 1 cap PO QAM cap 06/01/19 11/14/21 07/23/21 History (Acidophilus) cholecalciferol (vitamin D3) 25 1,000 unit PO QPM cap 06/01/19 11/14/21 07/23/21 History mcg (1,000 unit) capsule cranberry 500 mg capsule 500 mg PO QPM cap 06/01/19 11/14/21 07/23/21 History dicyclomine 10 mg capsule 10 mg PO QID 06/01/19 11/14/21 07/23/21 History ferrous sulfate 325 mg (65 mg 325 mg PO DAILY@12 06/21/19 11/14/21 07/23/21 History iron) tablet atorvastatin 40 mg tablet 40 mg PO BEDTIME 09/06/20 11/14/2107/23/22 History lactulose 10 gram/15 mL oral 15 ml PO DAILY@12 ml 02/11/21 11/14/21 07/23/21 History solution magnesium oxide 400 mg (241.3 mg 500 mg PO DAILY@12 tab 02/14/21 11/14/21 07/23/21 History magnesium) tablet clopidogrel 75 mg tablet 75 mg PO QPM 02/21/21 11/14/21 07/23/21 History hydrocodone 7.5 mg-acetaminophen 1 tab PO QID PRN 02/21/21 11/14/21 07/23/21 History 325 mg tablet polyethylene glycol 3350 17 17 g PO DAILY 03/24/21 11/14/21 06/03/21 History gram/dose oral powder (Miralax) insulin degludec 200 unit/mL (3 34 unit SUBCUT QPM ml 05/08/21 11/14/21 07/23/21 History mL) subcutaneous pen (Tresiba FlexTouch U-200 insulin) nitroglycerin 0.4 mg sublingual 0.4 mg SUBLINGUAL Q5M PRN 30 Days 06/03/21 11/14/21 07/23/21 Rx tablet #30 tab aspirin 81 mg tablet,delayed 81 mg PO DAILY #30 tab 06/06/21 11/14/21 07/23/21 Rx release (Ecotrin Low Strength) valsartan 320 mg tablet 320 mg PO DAILY #90 tab 06/06/21 11/14/21 07/23/21 Rx albuterol sulfate 90 mcg/actuation 2 puff INHALATION QID PRN 07/24/21 11/14/21 U nknown History aerosol inhaler chlorthalidone 25 mg tablet 25 mg PO DAILY #90 tab 08/20/21 11/14/21 11/08/21 Rx pt states on hold prednisone 1 mg tablet 2 mg PO DAILY #90 tab 08/21/21 11/14/21 Unknown Rx blood sugar diagnostic #400 ea 09/02/21 11/14/21 Unknown Rx lancets 21 gauge (Comfort EZ #400 ea 09/02/21 11/14/21 Unknown Rx Lancets) blood sugar diagnostic (Easymax 15 #400 ea 09/11/21 11/14/21 Unknown Rx test strips) citalopram 40 mg tablet 40 mg PO QAM #30 tab 09/11/21 11/14/21 Unknown Rx isosorbide mononitrate 120 mg 120 mg PO DAILY #90 tab 09/22/21 11/14/21 Unknown Rx tablet,extended release 24 hr furosemide 20 mg tablet 40 mg PO DAILY tab 11/13/21 11/14/21 11/12/21 History see pharmacy comment insulin lispro 100 unit/mL 10 unit SUBCUT TID 11/13/21 11/14/21 Unknown History subcutaneous pen (Humalog KwikPen (U-100) Insulin) pen needle, diabetic 31 gauge x #100 ea 11/13/21 11/14/21 Unknown Rx /16 (BD Ultra-Fine Mini Pen Needle) potassium chloride 8 mEq 8 meq PO DAILY 11/13/21 11/14/21 Unknown History capsule,extended release ascorbic acid (vitamin C) 500 mg 500 mg PO DAILY@12 11/14/21 11/14/21 Unknown History chewable tablet (Vitamin C) esomeprazole magnesium 40 mg 40 mg PO QAM 11/14/21 11/14/21 Unknown History capsule,delayed release hydrocortisone 20 mg tablet See Rx Instructions .ROUTE .COMPLEX 11/14/21 11/14/21 Unknown History ondansetron HCl 4 mg tablet 4 mg PO Q6H PRN 11/14/21 11/14/21 Unknown History quetiapine 50 mg tablet (Seroquel) 50 mg PO BEDTIME 11/14/21 11/14/21 Unknown History vitamin E 1,000 unit capsule 1,000 unit PO DAILY 11/14/21 11/14/21 Unknown History Allergies Allergy/AdvReac Type Severity Reaction Status Date / Time morphine Allergy Severe RESPIRATORY Verified 11/13/21 15:50 DISTRESS doxycycline Allergy Mild THROAT Verified 11/13/21 15:50 SWELLING duloxetine [From Cymbalta] Allergy Mild SWELLING, Verified 11/13/21 15:50 VOMITING metformin Allergy Mild THROAT Verified 11/13/21 15:50 SWELLING oxybutynin [From Oxytrol] Allergy Mild ALGY-Rash Verified 11/13/21 15:50 Penicillins Allergy Mild ALGY-Rash Verified 11/13/21 15:50 Sulfa (Sulfonamide Allergy Mild STOMACH Verified 11/13/21 15:50 Antibiotics) CRAMPS alprazolam [From Xanax] Allergy Unknown Unknown Verified 11/13/21 15:50 amitriptyline Allergy Unknown Unknown Verified 11/13/21 15:50 Barbiturates Allergy Unknown Unknown Verified 11/13/21 15:50 cefuroxime [From Ceftin] Allergy Unknown Unknown Verified 11/13/21 15:50 insulin detemir Allergy Unknown Unknown Verified 11/13/21 15:50 [From Levemir U-100 Insulin] levofloxacin [From Levaquin] Allergy Unknown Unknown Verified 11/13/21 15:50 liraglutide [From Victoza] Allergy Unknown Unknown Verified 11/13/21 15:50 metoclopramide [From Reglan] Allergy Unknown Unknown Verified 11/13/21 15:50 nitrofurantoin Allergy Unknown Unknown Verified 11/13/21 15:50 [From Macrobid] pregabalin [From Lyrica] Allergy Unknown Unknown Verified 11/13/21 15:50 meloxicam AdvReac Severe ADR-Vomitin Verified 11/13/21 15:50 g ciprofloxacin [From Cipro] AdvReac Mild stomach Verified 11/13/21 15:50 upset hydromorphone [From Dilaudid] AdvReac Unknown PT STATES Verified 11/13/21 15:50 IT MAKES ME CRAZY Current Medications Generic Name Dose Route Start Last Admin Trade Name Freq PRN Reason Stop Dose Admin Acetaminophen 650 mg 11/14/21 04:08 11/14/21 06:27 Acetaminophen 325 Mg Tablet PO 650 mg Q6H PRN Administration Mild/Mod Pain Or Temp >/= 101 Aspirin 81 mg 11/14/21 09:00 11/14/21 08:21 Aspirin 81 Mg Ec Tablet PO 81 mg DAILY TEJA Administration Enoxaparin Sodium 40 mg 11/14/21 04:15 11/14/21 05:12 Enoxaparin 40 Mg/0.4 Ml Syringe SUBCUT 40 mg Q24H TEJA Administration Nitroglycerin/Dextrose 50 mg in 250 mls @ 0 mls/hr 11/14/21 11:30 11/14/21 12:07 Nitroglycerin Drip IV 20 mcg/min .Q0M TEJA 6 mls/hr Titration Protocol Per Protocol Insulin Human Lispro 0 unit 11/14/21 08:00 11/14/21 13:46 Insulin Lispro 100 Unit/1 Ml SUBCUT Not Given WM&BEDTIME [facility] Protocol Isosorbide Mononitrate 120 mg 11/14/21 05:00 11/14/21 05:13 Isosorbide Mononitrate Er 60 Mg Tablet PO 120 mg DAILY TEJA Administration Losartan Potassium 100 mg 11/14/21 09:00 11/14/21 08:20 Losartan 50 Mg Tablet PO 100 mg DAILY TEJA Administration Nitroglycerin 0.4 mg 11/14/21 03:03 11/14/21 11:11 Nitroglycerin 0.4 Mg Sublingual Tablet SUBLINGUAL 1 dose Q5M PRN Administration CHEST PAIN Ondansetron HCl 4 mg 11/14/21 04:08 11/14/21 06:30 Ondansetron 2 Mg/Ml Sdv 2 Ml IVP 4 mg Q8H PRN Administration vomiting, or N/V if npo Pantoprazole Sodium 40 mg 11/14/21 09:00 11/14/21 08:[address] 40 Mg Tablet PO 40 mg DAILY TEJA Administration Ranolazine 500 mg 11/14/21 09:00 11/14/21 08:21 Ranolazine (12hr) 500 Mg Tablet PO 500 mg BID TEJA Administration PFSH Acute PFSH: Medical History Acute cystitis Anemia, chronic disease Atherosclerotic heart disease of ione coronary artery without angina pectoris Axonal sensorimotor neuropathy Benign essential hypertension with target blood pressure below 140/90 Benign neoplasm of cerebral meninges Bipolar II disorder Dyslipidemia (high LDL; low HDL) Gross hematuria Heart palpitations The EKG showed a sinus rhythm with some nonspecific T wave changes. Left axis deviation. Normal IN and QRS duration. Intervertebral disc disorder with radiculopathy of lumbosacral region Psychiatric care Psychiatric care Recurrent UTI Status post left heart catheterization Surgical History History of colonoscopy (~2018) History of coronary artery stent placement History of right knee surgery S/P appendectomy S/P hernia repair S/P hip replacement S/P hysterectomy Family History Family/Other Diabetes Other Cancer Social History Smoking and tobacco status: never smoked Alcohol intake: never Household members: spouse Marital status: Current occupational status: retired History of recent travel: No Vitals/I&O/Wt Last Vital Signs Temp 98.0 F 11/14/21 10:47 Pulse 78 11/14/21 10:54 Resp 16 11/14/21 10:54 BP 123/52 11/14/21 10:54 Pulse Ox 95 11/14/21 10:54 11/13/21 11/14/21 11/14/21 22:59 06:59 14:59 Intake Total 360.2 / 360.2 Balance 360.2 / 360.2 Weight last 48 hrs Weight 213 lb 6.4 oz Weight 212 lb Physical Exam Narrative: GENERAL: Patient is alert, awake and oriented x3. [] NECK: No jugular vein distension. [] HEENT: No cyanosis. No icterus. No pallor. [] HEART: Regular S1 and S2. No murmur, rub or gallop. [] LUNGS: Clear to auscultate bilaterally. [] ABDOMEN: Soft, nontender and nondistended. Positive bowel sounds. No guarding, rebound or tenderness. [] CENTRAL NERVOUS SYSTEM: Grossly nonfocal. [] EXTREMITIES: Lower extremities with 1+ edema bilaterally. Pulses palpable in the lower extremities, both dorsalis pedis and posterior tibial. [] Data : 11/15/21 04:45 11/15/21 04:45 A&P Assessment and plan (1) Hypertension: Status: Acute (2) CAD (coronary artery disease): Status: Acute (3) Diabetes: Status: Acute (4) Chest pain: Status: Acute Plan Patient has been having severe on and off typical chest pain symptoms. She has been started on nitro drip. Given her recurrent ER visits with typical chest pain, we will proceed with coronary angiogram with possible percutaneous coronary intervention. Risks and benefits of the procedure have been discussed with the patient and family. They understand the risks and benefits and wants to proceed with the procedure. Blood pressure is uncontrolled, will add amlodipine Continue aspirin and Plavix. Echocardiogram ordered. Thank you for involving us with care of this patient. We will continue to follow. Please call with questions. Consult Attestations Medical Necessity Statement: Care expected to cross 2 midnights. Coding Level of Care Code Acute Debarker Operator for [facility] Diagnoses Hypertension I10 CAD (coronary artery disease) I25.10 Diabetes E11.9 Chest pain R07.9
[2021-11-14] MEDS: predniSONE 20 mg Tablet 60 MG PO (14:08)
--- NOTE | 2021-11-14 16:55 | PC.NURSE ---
Report called to [facility] for room 275. Report given to SRINATH Youngblood. Pt transferred via W/C to room 275. Belongings with pt.
--- NOTE | 2021-11-14 17:26 | PC.NURSE ---
Daughter, Edna FOre notified of transfer to room 275 and pt wanting her to know she is feeling better.
[2021-11-14] MEDS: clopidogrel 75 mg Tablet PO (17:45)
--- NOTE | 2021-11-14 19:30 | PC.NURSE ---
Right wrist cath site has bandaide which is intact. Surrounding skin is bruised, soft, no hematoma present. Capillary refill is good and patient denies any numbness or tingling.
--- NOTE | 2021-11-14 20:40 | PC.NURSE ---
Spoke with Dr.Kumar sanchez patient request for her medications for constipation and for her prn for back pain which have not been ordered here. Obtained order for patients medications.
[2021-11-14] MEDS: polyethylene glycol 3350 Pkt 17 gm PO (21:58)
[2021-11-14] MEDS: lactulose oral liq 20 gm/30 mL UDC 10 GM PO (21:58)
[2021-11-14] MEDS: atorvastatin 40 mg Tablet PO (21:59)
[2021-11-14] MEDS: HYDROcodone-acetaminophen 7.5-325 mg Tablet 1 TAB PO (21:59)
[2021-11-14] MEDS: insulin glargine 100 units/1 mL 20 UNIT SUBCUT (22:25)
[2021-11-15] VITALS (9 sets, daily range): BP systolic 128–201; BP diastolic 51–90; PULSE 72–87; RESP 16–23; TEMP 36.5–36.6; O2SAT 94–98
[2021-11-15] MEDS: quetiapine 25 mg Tablet 50 MG PO (01:11)
[2021-11-15] MEDS: hyDRALAzine 50 mg Tablet PO (01:12)
--- NOTE | 2021-11-15 03:30 | PC.NURSE ---
Addendum entered by Radha Cool RN 11/15/21 03:32: Note was for 11/15/21 at 00:50 Original Note: Spoke with regarding patients home medication, seroquel which was not ordered. Also reported patient with elevated BP. ordered patients seroquel and one time dose of PO hydralizine.
[2021-11-15] MEDS: enoxaparin 40 mg/0.4 mL Syringe SUBCUT (04:39)
[2021-11-15 05:09] LABS: Basophils % 0.3 %; Eosinophils % 0.5 %; Hematocrit 39.4 % (37.0-47.0); Hemoglobin 13.3 g/dL (11.5-15.3); Lymphocytes # 1.5 10^3/uL (0.8-4.8); Lymphocytes % 19.6 %; Mean Corpuscular HGB Conc 33.8 g/dL (30.0-36.0); Mean Corpuscular Hemoglobin 30.7 pg (28.0-34.0); Mean Platelet Volume 9.7 fL (7.4-10.4); Monocytes # 0.7 10^3/uL (0.2-0.9); Monocytes % 8.8 %; Neutrophils # 5.42 10^3/uL (1.8-7.7); Neutrophils % 70.5 %; Nucleated Red Blood Cells % 0 %; Platelet Count 212 10^3/cmm (130-400); Red Blood Count 4.33 10^6/uL (4.1-5.3); Red Cell Distribution Width 12.3 % (12.1-15.1); White Blood Count 7.7 10^3/uL (4.0-10.0)
[2021-11-15 05:34] LABS: Alanine Aminotransferase 23 U/L (0-33); Albumin Level 4.2 g/dL (3.5-5.2); Alkaline Phosphatase 107 IU/L (35-105); Aspartate Amino Transferase 18 U/L (0-32); Blood Urea Nitrogen 10 mg/dL (8-23); Calcium 10.4 mg/dL (8.5-10.5); Carbon Dioxide 30 mmol/L (22-29); Chloride 97 mmol/L (98-107); Globulin 2.9 g/dL (1.3-4.6); Glucose 164 mg/dL (65-115); Magnesium 2.1 mg/dL (1.7-2.3); Osmolality Calculated 281 mOsm/kg (285-295); Sodium 134 mmol/L (136-145); Total Bilirubin 0.4 mg/dL (0.15-1.2); Total Protein 7.1 g/dL (6.6-8.7)
[2021-11-15 05:40] LABS: Anion Gap 10.9 (5-19); Potassium 3.9 mmol/L (3.5-5.1)
[2021-11-15 06:51] LABS: Glucose Point of Care 238 mg/dL (70-110)
[2021-11-15 06:51] LABS: Glucose Point of Care 291 mg/dL (70-110)
[2021-11-15 06:51] LABS: Glucose Point of Care 173 mg/dL (70-110)
[2021-11-15] MEDS: isosorbide mononitrate ER 60 mg Tablet 120 MG PO (07:54)
[2021-11-15] MEDS: pantoprazole DR 40 mg Tablet PO (07:55)
[2021-11-15] MEDS: losartan 50 mg Tablet 100 MG PO (07:55)
[2021-11-15] MEDS: HYDROcodone-acetaminophen 7.5-325 mg Tablet 1 TAB PO (07:55)
[2021-11-15] MEDS: aspirin 81 mg EC Tablet PO (07:55)
[2021-11-15] MEDS: insulin lispro 100 unit/1 mL SUBCUT ×2 (07:56→12:00)
[2021-11-15] MEDS: ranolazine (12HR) 500 mg Tablet PO (07:56)
[2021-11-15] MEDS: lactulose oral liq 20 gm/30 mL UDC 10 GM PO (07:56)
[2021-11-15] MEDS: polyethylene glycol 3350 Pkt 17 gm PO (07:56)
--- NOTE | 2021-11-15 09:59 | P.PN_ITS ---
Subjective Subjective: Patient is doing well. She underwent coronary angiogram that did not show significant CAD and patent prior stents. She is chest pain-free now. Vitals/I&O/Wt Last Vital Signs Temp 97.8 F 11/15/21 07:17 Pulse 82 11/15/21 07:45 Resp 16 11/15/21 07:45 BP 194/88 11/15/21 07:55 Pulse Ox 97 11/15/21 07:45 11/14/21 11/15/21 11/15/21 22:59 06:59 14:59 Intake Total 342.625 / 171.818 4492 / 1918.875 360 / 360 Output Total 900 / 900 300 / 1200 Balance -557.375 / -181.125 900 / 718.875 360 / 360 Weight last 48 hrs Weight 217 lb Weight 213 lb 6.4 oz Weight 212 lb Physical Exam Narrative: GENERAL: Patient is alert, awake and oriented x3. [] NECK: No jugular vein distension. [] HEENT: No cyanosis. No icterus. No pallor. [] HEART: Regular S1 and S2. No murmur, rub or gallop. [] LUNGS: Clear to auscultate bilaterally. [] ABDOMEN: Soft, nontender and nondistended. Positive bowel sounds. No guarding, rebound or tenderness. [] CENTRAL NERVOUS SYSTEM: Grossly nonfocal. [] EXTREMITIES: Lower extremities with 1+ edema bilaterally. Pulses palpable in the lower extremities, both dorsalis pedis and posterior tibial. [] Data : 11/15/21 04:45 11/15/21 04:45 A&P Assessment and plan (1) Hypertension: Status: Acute (2) CAD (coronary artery disease): Status: Acute (3) Diabetes: Status: Acute (4) Chest pain: Status: Resolved Plan Patient underwent coronary angiogram that did not reveal significant CAD. Aggressive risk factor modification and blood pressure control. Chest discomfort likely secondary to microvascular dysfunction. Deo price Thank you for involving us with care of this patient. We will continue to follow. Please call with questions. Attestations Medical Necessity Statement*: Care expected to cross 2 midnights. Coding Level of Care Code Acute Telephone Messenger for [facility] Fwd Diagnoses Hypertension I10 CAD (coronary artery disease) I25.10 Diabetes E11.9 Chest pain R07.9
[2021-11-15] MEDS: chlorthalidone 25 mg Tablet PO (10:09)
[2021-11-15] MEDS: amlodipine 5 mg Tablet PO (10:09)
[2021-11-15 11:26] LABS: Glucose Point of Care 289 mg/dL (70-110)
--- NOTE | 2021-11-15 13:57 | P.DS_ITS ---
Discharge Providers Date of Admission: 11/14/21 03:59 Date of Discharge: November 15, 2021 Attending Provider at Admission: Livan Snyder MD Attending Provider at Discharge: Neha Mobley MD Primary Care Provider: Arabella Orta MD Diagnoses at Discharge Discharge Diagnosis (1) Hypertension: Status: Acute (2) CAD (coronary artery disease): Status: Acute (3) Diabetes: Status: Acute (4) Chest pain: Status: Acute Reason for Visit Reason for Visit: CP Brief History: Brandi Berg is a 76 year old female with past medical history of hypertension diabetes coronary artery disease s/p recent PCI to LAD and OM1, has prior PCI to RCA, came in with chief complaint of Substernal chest pain 10 out of 10 in severity, sharp, radiating to back, minimally relieved with pain medication, she says that she is having chest pain for about a week time, but today it was worse, chest pain is also associated with shortness of breath, she was seen by the nurse practitioner Roseline Palomares in the clinic and was then sent to ER for further evaluation.? She was seen in the ER earlier during the day, and was sent home as the troponin trends were negative, as well as EKG failed to show any acute ST-T wave changes. She returned back to the ER as she continued to experience the pain even after reaching home. Currently she denies any fever, cough, headache nausea vomiting, abdominal pain. Upon arrival in the ER she was worked up for above-mentioned complaint: X-ray chest: No acute findings EKG:?SINUS RHYTHM, BORDERLINE LEFT AXIS DEVIATION? [QRS AXIS < -20] ,NONSPECIFIC ST & T-WAVE ABNORMALITY. Pertinent Labs: WBC 6.3, H&H 12.6/ 36 PLT : 211 , serum sodium 135 serum potassium 3.6 BUN and serum creatinine 12 and 0.6, Troponin trend: 11-9? Hospital Course Hospital Course Patient got admitted for chest pain. When she was seen the next morning he was having much more chest pain and was placed on a nitro drip. Patient underwent cardiac angiogram which did not show any blockages. No intervention done. Patient did well and was discharged home the next day. Her blood pressure was elevated. She was managed for hypertension and discharged home in stable condition. On day of discharge patient denied any chest pain and was in good spirits doing well. Ranolazine was started at this hospital stay which the patient has been advised to stay on. She will follow-up with cardiology outpatient and her primary care doctor. Physical Exam Narrative: General: Alert oriented x3, patient seen eating up in bed eating breakfast appearing very comfortable at this time on room air. HEENT: Normocephalic, atraumatic, EOMI Cardio: Regular rate rhythm, normal S1-S2, no murmurs Respiratory: Good bilateral air entry, no wheezes no rhonchi appreciated GI: Abdomen soft, nontender, nondistended, bowel sounds + Extremities: trace edema, no cyanosis Discharge Data Studies Completed and Pending Completed Studies During Hospitalization Category Date Time Status CTA thoracic [CT angio chest [id number]] Routine Cat Scan 11/14/21 04:52 Completed MEDICATION SPECIALIST request for service Routine Exams 11/14/21 12:01 Completed XR chest 1V portable [id number] Urgent Exams 11/14/21 03:03 Completed CV. echo complete* [id number] Routine Ultrasound 11/14/21 04:17 Completed Pending at discharge Category Date Time Status Complete Blood Count w/Auto AM LABS Lab 11/16/21 04:00 Ordered Complete Blood Count w/Auto AM LABS Lab 11/17/21 04:00 Ordered Comprehensive Metabolic Panel AM LABS Lab 11/16/21 04:00 Ordered Comprehensive Metabolic Panel AM LABS Lab 11/17/21 04:00 Ordered Radiology Impressions Chest X-Ray 11/14/21 03:03 IMPRESSION: No acute findings. Chest CTA 11/14/21 04:52 IMPRESSION: 1. No thoracic aortic aneurysm or dissection. 2. Mild atherosclerotic plaque throughout the aorta. Calcification and intimal thickening. Surface of the intimal thickening and places is irregular. 3. No central pulmonary embolism. 4. Mild LEFT heart enlargement. 5. No pneumonia. 6. Prior cholecystectomy. Laboratory Results WBC 7.7 10^3/uL (4.0-10.0) 11/15/21 04:45 RBC 4.33 10^6/uL (4.1-5.3) 11/15/21 04:45 Hgb 13.3 g/dL (11.5-15.3) 11/15/21 04:45 Hct 39.4 % (37.0-47.0) 11/15/21 04:45 MCV 91.0 fl (81-99) 11/15/21 04:45 MCH 30.7 pg (28.0-34.0) 11/15/21 04:45 MCHC 33.8 g/dL (30.0-36.0) 11/15/21 04:45 RDW 12.3 % (12.1-15.1) 11/15/21 04:45 Plt Count 212 10^3/cmm (130-400) 11/15/21 04:45 MPV 9.7 fL (7.4-10.4) 11/15/21 04:45 Neut % (Auto) 70.5 % 11/15/21 04:45 Lymph % (Auto) 19.6 % 11/15/21 04:45 Mcclain % (Auto) 8.8 % 11/15/21 04:45 Eos % (Auto) 0.5 % 11/15/21 04:45 Baso % (Auto) 0.3 % 11/15/21 04:45 Neut # (Auto) 5.42 10^3/uL (1.8-7.7) 11/15/21 04:45 Lymph # (Auto) 1.5 10^3/uL (0.8-4.8) 11/15/21 04:45 Mcclain # (Auto) 0.7 10^3/uL (0.2-0.9) 11/15/21 04:45 Eos # (Auto) 0.0 10^3/uL (0.0-0.8) 11/15/21 04:45 Baso # (Auto) 0.0 10^3/uL (0.0-0.1) 11/15/21 04:45 Nucleated RBC % (auto) 0 % 11/15/21 04:45 Nucleated RBCs # 0.0 /100WBC 11/15/21 04:45 Sodium 134 mmol/L (136-145) L 11/15/21 04:45 Potassium 3.9 mmol/L (3.5-5.1) 11/15/21 04:45 Chloride 97 mmol/L (98-107) L 11/15/21 04:45 Carbon Dioxide 30 mmol/L (22-29) H 11/15/21 04:45 Anion Gap 10.9 (5-19) 11/15/21 04:45 BUN 10 mg/dL (8-23) 11/15/21 04:45 Creatinine 0.6 mg/dL (0.5-0.9) 11/15/21 04:45 GFR Calculation Not Reportable 11/15/21 04:45 Glucose 164 mg/dL (65-115) H 11/15/21 04:45 POC Glucose 289 mg/dL (70-110) H 11/15/21 11:13 Calculated Osmolality 281 mOsm/kg (285-295) L 11/15/21 04:45 Calcium 10.4 mg/dL (8.5-10.5) 11/15/21 04:45 Magnesium 2.1 mg/dL (1.7-2.3) 11/15/21 04:45 Total Bilirubin 0.4 mg/dL (0.15-1.2) 11/15/21 04:45 AST 18 U/L (0-32) 11/15/21 04:45 ALT 23 U/L (0-33) 11/15/21 04:45 Alkaline Phosphatase 107 IU/L (35-105) H 11/15/21 04:45 Troponin T Baseline 12 ng/L (0-10) H 11/14/21 03:27 Troponin T 120 Minute 13.59 ng/L (0-10) H 11/14/21 05:43 Delta Troponin T 1.59 ABS# (0-10) 11/14/21 05:43 Troponin T Hi Sens 6Hr 13.62 ng/L (0-10) H 11/14/21 09:37 Troponin T Hi Sens 6Hr Delta 1.62 ng/L (0-12) 11/14/21 09:37 Total Protein 7.1 g/dL (6.6-8.7) 11/15/21 04:45 Albumin 4.2 g/dL (3.5-5.2) 11/15/21 04:45 Globulin 2.9 g/dL (1.3-4.6) 11/15/21 04:45 Lipase 13 U/L (13-60) 11/14/21 03:27 Vitals Last Vital Signs Temp 97.7 F 11/15/21 11:11 Pulse 80 11/15/21 11:11 Resp 22 H 11/15/21 11:11 BP 128/51 11/15/21 11:11 Pulse Ox 96 11/15/21 11:11 Discharge Plan Discharge Patient Disposition: Home Condition: Stable Prescriptions: New ranolazine 500 mg Tablet Extended Release 12 Hr 500 mg PO BID 30 Days Qty: 60 0RF Continued dicyclomine 10 mg capsule 10 mg PO QID 0RF lactulose 10 gram/15 mL solution 15 ml PO DAILY@12 0RF polyethylene glycol 3350 [Miralax] 17 gram/dose powder 17 g PO DAILY 0RF chlorthalidone 25 mg tablet 25 mg PO DAILY Qty: 90 2RF isosorbide mononitrate 120 mg tablet extended release 24 hr 120 mg PO DAILY Qty: 90 3RF prednisone 1 mg tablet 2 mg PO DAILY Qty: 90 3RF cholecalciferol (vitamin D3) 1,000 unit capsule 1,000 unit PO QPM 0RF cranberry 500 mg capsule 500 mg PO QPM 0RF Lactobacillus acidophilus [Acidophilus] Capsule 1 cap PO QAM 0RF ferrous sulfate 325 mg (65 mg iron) tablet 325 mg PO DAILY@12 0RF magnesium oxide 400 mg (241.3 mg magnesium) tablet 500 mg PO DAILY@12 0RF nitroglycerin 0.4 mg tablet, sublingual 0.4 mg sublingual Q5M PRN (Reason: chest pain) 30 Days Qty: 30 3RF Rx Instructions: until response; do not exceed 3 doses per episode citalopram 40 mg tablet 40 mg PO QAM Qty: 30 11RF furosemide 20 mg tablet 40 mg PO DAILY 0RF insulin lispro [Humalog KwikPen Insulin] 100 unit/mL insulin pen 10 unit SUBCUT TID 0RF potassium chloride 8 mEq capsule, extended release 8 meq PO DAILY 0RF (DME) blood sugar diagnostic Strip See Rx Instructions .Route Qty: 400 3RF Rx Instructions: Check blood sugar 4 times a day. (DME) lancets [Comfort EZ Lancets] 21 gauge misc See Rx Instructions .Route Qty: 400 3RF Rx Instructions: As directed (DME) Easymax 15 test strips Strip See Rx Instructions .Route Qty: 400 3RF Rx Instructions: Check BS 4 times a day. (DME) pen needle, diabetic [BD Ultra-Fine Mini Pen Needle] 31 gauge x 3/16 needle See Rx Instructions .ROUTE .COMPLEX Qty: 100 0RF Dose Instruction: USE DIRECTED Rx Instructions: USE DIRECTED atorvastatin 40 mg tablet 40 mg PO BEDTIME 0RF aspirin [Ecotrin Low Strength] 81 mg tablet,delayed release (DR/EC) 81 mg PO DAILY Qty: 30 3RF valsartan 320 mg tablet 320 mg PO DAILY Qty: 90 3RF albuterol sulfate 90 mcg/actuation HFA aerosol inhaler 2 puff INHALATION QID PRN (Reason: Shortness Of Breath) 0RF hydrocodone-acetaminophen 7.5-325 mg tablet 1 tab PO QID PRN (Reason: Pain) 0RF clopidogrel 75 mg tablet 75 mg PO QPM 0RF Rx Instructions: Must be seen for future refills Tresiba FlexTouch U-200 200 unit/mL (3 mL) insulin pen 34 unit SUBCUT QPM 0RF esomeprazole magnesium 40 mg capsule,delayed release(DR/EC) 40 mg PO QAM 0RF vitamin E 1,000 unit Capsule 1,000 unit PO DAILY 0RF ondansetron HCl 4 mg tablet 4 mg PO Q6H PRN (Reason: Nausea And Vomiting) 0RF Vitamin C 500 mg Tablet,Chewable 500 mg PO DAILY@12 0RF hydrocortisone 20 mg tablet See Rx Instructions .ROUTE .COMPLEX 0RF Rx Instructions: 20mg po qam and 6 hours later takes 20mg Seroquel 50 mg tablet 50 mg PO BEDTIME 0RF Discharge Orders: Discharge Order (Routine); Ordered 11/15/21 Ordered By: Neha Mobley Referrals: Arabella Orta MD [Primary Care Provider] - 4-7 days (Please call [phone] on Wednesday to make a follow up appointment with Dr. Orta for 4-7 days. Thank you.) Gilma Cai MD [Physician] - 1 month (Please call [phone] on Wednesday to schedule a follow up appointment with Dr. Cai's office for 1 month. Thank you.) Roseline Palomares FNP [Nurse Practitioner] - 7-10 days (Please call [phone] on Wednesday to schedule a follow up appointment with Roseline Palomares for 7-10 days. Thank you.) Discharge Diet: Cardiac and Diabetic Discharge Activity: Resume usual activity Patient Instructions: Ranolazine (By mouth) (Ranexa), Coronary Artery Disease (DC), Opioid Safety Discharge Attestations Time Spent in Discharge Care*: less than 30 min Quality Metrics Clinical Quality Measures [ No reported AMI, CVA or VTE this stay] Coding Level of Care Code Acute Chg FW DC note Diagnoses Hypertension I10 CAD (coronary artery disease) I25.10 Diabetes E11.9 Chest pain R07.9
== END 2021-11-15 14:30 | disposition home or self-care (01) ==
LOC: ER 04:00 → MEDSURG 04:11 → ICU 11:18 → MEDSURG 16:54
PROVIDERS: Internal Medicine; Admitting Provider Internal Medicine; Emergency Provider Emergency Medicine; PCP Family Medicine; Visit Provider Internal Medicine
DX: I25.10 Atherosclerotic heart disease of native coronary artery without angina pectoris (principal); R07.9 Chest pain, unspecified; E11.9 Type 2 diabetes mellitus without complications; I10 Essential (primary) hypertension; Z79.84 Long term (current) use of oral hypoglycemic drugs; Z79.4 Long term (current) use of insulin; E78.5 Hyperlipidemia, unspecified
CPT/HCPCS: 36415; 36416; 71045; 71275; 80053; 82962; 83690; 83735; 84484; 85025; 93005; 93306; 93452; 93458; 96360; 96365; 96372; 96375; 99152; 99153; 99285; C1769; C1887; C1894; G0378; J1644; J1650; J1815; J2250; J2405; J3010; J3490; J7030; J7512; Q9967

== ENCOUNTER → 2021-11-17 14:41 | Outpatient (BNVA) | payer MEDICARE, OTHER, SELFPAY | PROVIDERS: PCP Family Medicine; Visit Provider Internal Medicine | DX: E11.649 Type 2 diabetes mellitus with hypoglycemia without coma (principal); E27.1 Primary adrenocortical insufficiency; R61 Generalized hyperhidrosis; I25.10 Atherosclerotic heart disease of native coronary artery without angina pectoris; Z79.84 Long term (current) use of oral hypoglycemic drugs | CPT/HCPCS: 83036; 99214 ==

== ENCOUNTER 2021-11-21 10:29 | Outpatient (CLI) | payer MEDICARE, OTHER, SELFPAY ==
--- NOTE | 2021-11-21 10:43 | MR_ITS ---
WS: [id number] MRI HEAD WITH CONTRAST TECHNIQUE: Sagittal T1, T2 axial, T2 axial FLAIR, axial susceptibility weighted imaging, axial diffus ion weighted images, and coronal T2 images were obtained. Pre and post-T1 axial and post T1 coronal i mages. ADC and FSPGR images. CLINICAL INFORMATION: BENIGN NEOPLASM OF MENINGES COMPARISON: MRI November 26, 2020. Multiple MRIs dating back to 2016. FINDINGS: No evidence of restricted diffusion to suggest acute ischemia. Mild small vessel changes wi th mild parenchymal volume loss. Tiny chronic lacunar infarct RIGHT cerebellum. Normal vascular flow voids at the skull base. No extra-axial fluid collections. No evidence of mass or mass effect. Parana yuly sinuses and mastoid air cells well aerated. Previously described meningioma along the inferior RIGHT frontal lobe measuring 7 x 5 mm. No evidence of underlying edema or mass effect. Mild to moderate symmetric atrophy temporal lobes and hippocampa l formations. Incidental venous angioma in the LEFT cerebellum. No other abnormal foci of enhancement . Normal optic chiasm and pituitary infundibulum. Normal cavernous sinuses and Meckel's cave. Visualize d dural venous sinuses appear normal. Normal posterior nasopharynx. Normal parapharyngeal fat. No he mosiderin on the susceptibly weighted images. MR/MR head wo/w con [id number] IMPRESSION: 1. 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 Mild small vessel changes. Mild parenchymal volume loss. 3. Tiny chronic lacunar infarct RIGHT cerebellum is unchanged from previous. 4. No hemosiderin on susceptibly weighted images. 5. Incidental venous angioma LEFT cerebellum. 6. No other remarkable abnormalities.
[2021-11-21] MEDS: gadobenate dimeglumine 20 mL vial IV (11:38)
--- NOTE | 2021-12-17 13:47 | PFTS_ITS ---
Date of Study:12/17/21 Date of Dictation: 12/19/2021 MECHANICS: Postbronchodilator forced vital capacity (FVC) is reduced. Postbronchodilator forced expiratory volume in one second (FEV1) is moderately reduced. FEV1/FVC is normal. There is no significant bronchodilator response. FLOW VOLUME LOOP: Normal LUNG VOLUMES: Total lung capacity (TLC) is reduced. Residual volume (RV) is mildly reduced. DIFFUSING CAPACITY FOR CARBON MONOXIDE: Normal . INTERPRETATION: The spirometry is suggestive of restrictive pattern. There is no significant bronchodilator response. Lung volumes suggest mild restriction. Gas transfer is normal. Clinical correlation recommended. MTDD
== END 2021-11-21 10:30 | disposition home or self-care (01) ==
LOC: RAD 10:38
PROVIDERS: PCP Family Medicine; Visit Provider Family Medicine
DX: D32.9 Benign neoplasm of meninges, unspecified (principal)
CPT/HCPCS: 70553; 94060; 94726; 94729

== ENCOUNTER → 2021-11-27 13:40 | Outpatient (BNVA) | payer MEDICARE, OTHER, SELFPAY | PROVIDERS: PCP Family Medicine; Visit Provider Nurse Practitioner Family | DX: I25.10 Atherosclerotic heart disease of native coronary artery without angina pectoris (principal); I10 Essential (primary) hypertension | CPT/HCPCS: 80048; 99213; 99214 ==

== ENCOUNTER 2021-12-06 22:07 | Emergency (ER) | payer MEDICARE, OTHER, SELFPAY ==
[2021-12-06 22:17] VITALS: BP 169/73; PULSE 74; RESP 18; TEMP 36.7; O2SAT 98; BMI 36.1
--- NOTE | 2021-12-06 22:28 | ECG_ITS ---
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 Measurements Intervals [place] Rate: 72 P: 33 FL: 156 QRS: -28 QRSD: 102 T: 83 QT: 382 QTc: 419 Interpretive Statements SINUS RHYTHM BORDERLINE LEFT AXIS DEVIATION [QRS AXIS < -20] NONSPECIFIC T-WAVE ABNORMALITY Compared to ECG 11/14/2021 10:01:28 No significant changes Electronically Signed On 12-08-2021 8:09:44 CDT by Jose Sumner M.D. [email or web address]
--- NOTE | 2021-12-06 22:28 | XRR_ITS ---
PROCEDURE INFORMATION: Exam: XR Chest Exam date and time: 12/06/2021 10:44 PM Age: 76 years old Clinical indication: Pain; Angina pectoris; Additional info: Cp TECHNIQUE: Imaging protocol: Radiologic exam of the chest. Views: 1 view. COMPARISON: CR (CHEST, ) 11/14/2021 3:07 AM FINDINGS: Lungs: Mild left basilar atelectasis and/or infiltrate and/or scarring. Pleural spaces: Unremarkable. No pleural effusion. No pneumothorax. Heart/Mediastinum: Unremarkable. No cardiomegaly. Bones/joints: Moderate thoracic spondylosis. Other findings: Possible morbid obesity. XR/XR chest 1V portable [id number] IMPRESSION: Mild left basilar atelectasis and/or infiltrate and/or scarring.
[2021-12-06 23:00] LABS: Basophils % 0.5 %; Eosinophils # 0.2 10^3/uL (0.0-0.8); Eosinophils % 2.2 %; Hematocrit 35.2 % (37.0-47.0); Hemoglobin 12.2 g/dL (11.5-15.3); Lymphocytes # 1.9 10^3/uL (0.8-4.8); Lymphocytes % 24.6 %; Mean Corpuscular HGB Conc 34.7 g/dL (30.0-36.0); Mean Corpuscular Volume 89.3 fl (81-99); Mean Platelet Volume 9.6 fL (7.4-10.4); Monocytes # 0.7 10^3/uL (0.2-0.9); Monocytes % 8.5 %; Neutrophils # 4.95 10^3/uL (1.8-7.7); Neutrophils % 63.8 %; Nucleated Red Blood Cells % 0 %; Platelet Count 208 10^3/cmm (130-400); Red Blood Count 3.94 10^6/uL (4.1-5.3); Red Cell Distribution Width 12.4 % (12.1-15.1); White Blood Count 7.8 10^3/uL (4.0-10.0)
[2021-12-06 23:14] LABS: Partial Thromboplastin Time 26.2 SECONDS (23.9-36.7)
[2021-12-06 23:16] LABS: Troponin(5th) Baseline 12 ng/L (0-10)
[2021-12-06 23:25] LABS: Alanine Aminotransferase 24 U/L (0-33); Albumin Level 4.1 g/dL (3.5-5.2); Alkaline Phosphatase 135 IU/L (35-105); Blood Urea Nitrogen 13 mg/dL (8-23); Calcium 9.7 mg/dL (8.5-10.5); Carbon Dioxide 29 mmol/L (22-29); Chloride 90 mmol/L (98-107); Globulin 2.7 g/dL (1.3-4.6); Glucose 212 mg/dL (65-115); NT Pro B Type Natriuretic Pept 158 pg/mL (0-450); Osmolality Calculated 272 mOsm/kg (285-295); Sodium 128 mmol/L (136-145); Total Bilirubin 0.3 mg/dL (0.15-1.2); Total Protein 6.8 g/dL (6.6-8.7)
[2021-12-06 23:29] LABS: Anion Gap 13.7 (5-19); Aspartate Amino Transferase 20 U/L (0-32); Potassium 4.7 mmol/L (3.5-5.1)
--- NOTE | 2021-12-07 00:28 | ECG_ITS ---
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 Measurements Intervals [place] Rate: 70 P: 35 VA: 163 QRS: -19 QRSD: 104 T: 70 QT: 412 QTc: 447 Interpretive Statements SINUS RHYTHM INCOMPLETE RIGHT BUNDLE BRANCH BLOCK [90+ ms QRS DURATION, TERMINAL R IN V1/V2, 40+ ms S IN I/aVL/V4/V5/V6] MINIMAL VOLTAGE CRITERIA FOR LVH, CONSIDER NORMAL VARIANT [MEETS CRITERIA IN ONE OF: R(aVL), S(V1), R(V5), R(V5/V6)+S(V1)] NONSPECIFIC T-WAVE ABNORMALITY Compared to ECG 11/14/2021 10:01:28 Incomplete right bundle-branch block now present T-wave abnormality still present Electronically Signed On 12-08-2021 18:15:39 CDT by Jose Sumner M.D. [id number]
[2021-12-07 00:40] VITALS: RESP 15
[2021-12-07] MEDS: fentaNYL 50 mcg/mL INJ 2mL IVP ×2 (00:40→02:14)
[2021-12-07] MEDS: ondansetron 2 mg/ML SDV 2 mL 4 MG IVP (00:40)
[2021-12-07 01:11] LABS: Troponin 5 2HR 6.86 ng/L (0-10)
[2021-12-07 01:13] LABS: Troponin 5 2HR Delta -5.14 ABS# (0-10)
--- NOTE | 2021-12-07 01:15 | ED_ITS ---
HPI - Chest Pain General: Chief Complaint: Chest Pain Stated Complaint: chest/back pain Time Seen by Provider: 12/06/21 22:24 Source: patient History of Present Illness: 76-year-old female well-known to the ER. She has a history of coronary disease. She was admitted recently, and had an angiogram done the last week of October, 3 weeks ago. She had no significant coronary stenosis. She presents with chest discomfort today. She has had a chronic cough, nonproductive. No fever. Mild shortness of breath. MD complaint: chest pain Pertinent past history: coronary artery disease Onset (ago): hour(s) Timing of current episode: constant Prior episodes: Yes Onset: during rest Pain location: substernal Pain radiation: none Associated symptoms: Reports dyspnea and nausea; Deny abdominal pain, diaphoresis, fever(s), palpitations or vomiting Treatment prior to arrival: none Review of Systems Const: Denies: fever(s) or diaphoresis Eyes: Denies: change in vision ENMT: Denies: throat pain Card: Reports: chest pain; Denies: palpitations Resp: Reports: dyspnea and non-productive cough (Chronic) GI: Reports: nausea; Denies: abdominal pain or vomiting Neuro: Reports: headache(s) PFSH ED PFSH: Medical History Acute cystitis Anemia, chronic disease 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 Left axis deviation. Normal IA and QRS duration. Intervertebral disc disorder with radiculopathy of lumbosacral region Psychiatric care Psychiatric care Recurrent UTI Status post left heart catheterization Surgical History History of colonoscopy (~2018) History of coronary artery stent placement History of right knee surgery S/P appendectomy S/P hernia repair S/P hip replacement S/P hysterectomy Family History Family/Other Diabetes Other Cancer Social History (Reviewed 12/07/21 @ 01:28 by EDDIE Cabrera Smoking and tobacco status: never smoked Alcohol intake: never Household members: spouse Marital status: Current occupational status: retired History of recent travel: No Physical Exam Const: COMMON NORMALS: no acute distress GENERAL APPEARANCE: cooperative; not ill appearing and not frail appearing NUTRITIONAL APPEARANCE: obese HENMT: COMMON NORMALS: normocephalic, atraumatic and Normal external nose present HEAD & SCALP: normocephalic and atraumatic FACE & SINUS: normal facial exam and face symmetric NOSE: Normal external nose present Eye: COMMON NORMALS: Equal, round and reactive pupils present and EOMs intact bilaterally PUPIL: Yes Equal, round and reactive pupils present Neck/C-Spine: GENERAL: Yes trachea midline Chest: CHEST: Yes Symmetrical chest wall rise Resp: COMMON NORMALS: normal respiratory effort, No use of accessory muscles and clear to auscultation bilaterally AUSCULTATION: clear to auscultation bilaterally Cardio: COMMON NORMALS: regular rate and regular rhythm RATE: regular rate RHYTHM: regular rhythm GI: COMMON NORMALS: Normal to inspection, nondistended, normoactive bowel sounds present and Soft to palpation PALPATION: Yes Soft to palpation Extremity: COMMON NORMALS: no pedal edema Neuro: ANA M COMA SCALE: document GCS findings Ana M coma scale eye opening: Spontaneous [place] coma scale verbal response: Orientated [place] coma scale motor response: Obey commands Ana M coma scale total score: 15 Course Vital Signs: Vital signs: Vital Signs Temperature 98.1 F 12/06/21 22:17 Pulse Rate 72 12/07/21 01:34 Respiratory Rate 15 12/07/21 01:34 Blood Pressure 168/53 12/07/21 01:34 Pulse Oximetry 95 12/07/21 01:34 MDM - Chest Pain Medical Decision Making 76-year-old female presenting with chest discomfort. Her CBC is normal. Sodium is 128. Otherwise BMP is essentially normal. Liver enzymes are normal. Her troponin was 12 at baseline, 7 at 120 minutes. EKG does not reveal any acute ST changes. Chest x-ray shows some atelectasis. She had a coronary angiogram 3 weeks ago that was negative. Pain is improved after fentanyl and Zofran here. She will be allowed home. Lab Data : 12/06/21 22:52 12/06/21 22:52 Radiology Impressions Chest X-Ray 12/06/21 22:28 IMPRESSION: Mild left basilar atelectasis and/or infiltrate and/or scarring. Laboratory Results WBC 7.8 10^3/uL (4.0-10.0) 12/06/21 22:52 RBC 3.94 10^6/uL (4.1-5.3) L 12/06/21 22:52 Hgb 12.2 g/dL (11.5-15.3) 12/06/21 22:52 Hct 35.2 % (37.0-47.0) L 12/06/21 22:52 MCV 89.3 fl (81-99) 12/06/21 22:52 MCH 31.0 pg (28.0-34.0) 12/06/21:52 MCHC 34.7 g/dL (30.0-36.0) 12/06/21 22:52 RDW 12.4 % (12.1-15.1) 12/06/21 22:52 Plt Count 208 10^3/cmm (130-400) 12/06/21 22:52 MPV 9.6 fL (7.4-10.4) 12/06/21 22:52 Neut % (Auto) 63.8 % 12/06/21 22:52 Lymph % (Auto) 24.6 % 12/06/21 22:52 [place] % (Auto) 8.5 % 12/06/21:52 Eos % (Auto) 2.2 % 12/06/21:52 Baso % (Auto) 0.5 % 12/06/21 22:52 Neut # (Auto) 4.95 10^3/uL (1.8-7.7) 12/06/21 22:52 Lymph # (Auto) 1.9 10^3/uL (0.8-4.8) 12/06/21 22:52 [place] # (Auto) 0.7 10^3/uL (0.2-0.9) 12/06/21 22:52 Eos # (Auto) 0.2 10^3/uL (0.0-0.8) 12/06/21 22:52 Baso # (Auto) 0.0 10^3/uL (0.0-0.1) 12/06/21 22:52 Nucleated RBC % (auto) 0 % 12/06/21 22:52 Nucleated RBCs # 0.0 /100WBC 12/06/21 22:52 PT 12.50 SECONDS (12.1-14.9) 12/06/21 22:52 INR 0.90 (0.8-1.2) 12/06/21 22:52 APTT 26.2 SECONDS (23.9-36.7) 12/06/21 22:52 Sodium 128 mmol/L (136-145) L 12/06/21 22:52 Potassium 4.7 mmol/L (3.5-5.1) 12/06/21 22:52 Chloride 90 mmol/L (98-107) L 12/06/21 22:52 Carbon Dioxide 29 mmol/L (22-29) 12/06/21 22:52 Anion Gap 13.7 (5-19) 12/06/21 22:52 BUN 13 mg/dL (8-23) 12/06/21 22:52 Creatinine 0.6 mg/dL (0.5-0.9) 12/06/21 22:52 GFR Calculation Not Reportable 12/06/21 22:52 Glucose 212 mg/dL (65-115) H 12/06/21 22:52 Calculated Osmolality 272 mOsm/kg (285-295) L 12/06/21 22:52 Calcium 9.7 mg/dL (8.5-10.5) 12/06/21 22:52 Total Bilirubin 0.3 mg/dL (0.15-1.2) 12/06/21 22:52 AST 20 U/L (0-32) 12/06/21 22:52 ALT 24 U/L (0-33) 12/06/21 22:52 Alkaline Phosphatase 135 IU/L (35-105) H 12/06/21 22:52 Troponin T Baseline 12 ng/L (0-10) H 12/06/21 22:52 Troponin T 120 Minute 6.86 ng/L (0-10) 12/07/21 00:40 Delta Troponin T -5.14 ABS# (0-10) L 12/07/21 00:40 NT-Pro-B Natriuret Pep 158 pg/mL (0-450) 12/06/21 22:52 Total Protein 6.8 g/dL (6.6-8.7) 12/06/21 22:52 Albumin 4.1 g/dL (3.5-5.2) 12/06/21 22:52 Globulin 2.7 g/dL (1.3-4.6) 12/06/21 22:52 Discharge Plan Discharge Patient Disposition: Home Clinical Impression: Chest pain Condition: Stable Prescriptions: No Action dicyclomine 10 mg capsule 10 mg PO QID 0RF lactulose 10 gram/15 mL solution 15 ml PO DAILY@12 0RF polyethylene glycol 3350 [Miralax] 17 gram/dose powder 17 g PO DAILY 0RF chlorthalidone 25 mg tablet 25 mg PO DAILY Qty: 90 2RF isosorbide mononitrate 120 mg tablet extended release 24 hr 120 mg PO DAILY Qty: 90 3RF cholecalciferol (vitamin D3) 1,000 unit capsule 1,000 unit PO QPM 0RF cranberry 500 mg capsule 500 mg PO QPM 0RF Lactobacillus acidophilus [Acidophilus] Capsule 1 cap PO QAM 0RF ferrous sulfate 325 mg (65 mg iron) tablet 325 mg PO DAILY@12 0RF magnesium oxide 400 mg (241.3 mg magnesium) tablet 500 mg PO DAILY@12 0RF nitroglycerin 0.4 mg tablet, sublingual 0.4 mg sublingual Q5M PRN (Reason: chest pain) 30 Days Qty: 30 3RF Rx Instructions: until response; do not exceed 3 doses per episode citalopram 40 mg tablet 40 mg PO QAM Qty: 30 11RF (DME) Dexcom G6 Sensor Device See Rx Instructions .Route Qty: 9 3RF Rx Instructions: Change every 10 days. (DME) Dexcom G6 Pickle Solution Maker Misc See Rx Instructions .Route Qty: 1 0RF Rx Instructions: Check BS 4-6 times a day. (DME) Dexcom G6 Transmitter Device See Rx Instructions .Route Qty: 3 3RF Rx Instructions: Change every 90 days prednisone 5 mg tablet 10 mg PO DAILY Qty: 180 3RF Rx Instructions: Take two tablets by mouth daily. insulin lispro [Humalog KwikPen Insulin] 100 unit/mL insulin pen 10 unit SUBCUT TID Qty: 30 3RF Rx Instructions: Inject 10 units subcut three times a day with meals. ranolazine 500 mg tablet extended release 12 hr 500 mg PO BID Qty: 180 3RF furosemide 20 mg tablet 40 mg PO DAILY PRN0RF potassium chloride 8 mEq capsule, extended release 8 meq PO DAILY PRN0RF (DME) blood sugar diagnostic Strip See Rx Instructions .Route Qty: 400 3RF Rx Instructions: Check blood sugar 4 times a day. (DME) lancets [Comfort EZ Lancets] 21 gauge misc See Rx Instructions .Route Qty: 400 3RF Rx Instructions: As directed (DME) Easymax 15 test strips Strip See Rx Instructions .Route Qty: 400 3RF Rx Instructions: Check BS 4 times a day. (DME) pen needle, diabetic [BD Ultra-Fine Mini Pen Needle] 31 gauge x 3/16 needle See Rx Instructions .ROUTE .COMPLEX Qty: 100 0RF Dose Instruction: USE DIRECTED Rx Instructions: USE DIRECTED quetiapine [Seroquel] 25 mg tablet 25 mg PO DAILY Qty: 30 5RF Rx Instructions: Take with 50mg dose for total daily dose of 75mg. atorvastatin 40 mg tablet 40 mg PO BEDTIME 0RF aspirin [Ecotrin Low Strength] 81 mg tablet,delayed release (DR/EC) 81 mg PO DAILY Qty: 30 3RF valsartan 320 mg tablet 320 mg PO DAILY Qty: 90 3RF albuterol sulfate 90 mcg/actuation HFA aerosol inhaler 2 puff INHALATION QID PRN (Reason: Shortness Of Breath) 0RF clopidogrel 75 mg tablet 75 mg PO QPM 0RF Rx Instructions: Must be seen for future refills Tresiba FlexTouch U-200 200 unit/mL (3 mL) insulin pen 34 unit SUBCUT QPM 0RF hydrocodone-acetaminophen 7.5-325 mg tablet 1 tab PO Q6H PRN (Reason: Pain) 0RF esomeprazole magnesium 40 mg capsule,delayed release(DR/EC) 40 mg PO QAM 0RF vitamin E 1,000 unit Capsule 1,000 unit PO DAILY 0RF ondansetron HCl 4 mg tablet 4 mg PO Q6H PRN (Reason: Nausea And Vomiting) 0RF Vitamin C 500 mg Tablet,Chewable 500 mg PO DAILY@12 0RF Seroquel 50 mg tablet 50 mg PO BEDTIME 0RF Discharge Orders: Discharge ED (Routine); Ordered 12/07/21 Ordered By: Monty Briseno Referrals: Arabella Orta MD [Primary Care Provider] - 1-3 days Patient Instructions: Chest Pain (ED) Activity Restrictions/Additional Instructions: Return for fever greater than 100, worsening shortness of breath, worsening chest pain, other concerning symptoms. Coding Level of Care Code ED Baby Stroller Rental Clerk for Chg Fwd Exam Comprehensive
[2021-12-07 01:34] VITALS: BP 168/53; PULSE 72; RESP 15; O2SAT 95
[2021-12-07 02:14] VITALS: RESP 20
[2021-12-07 02:25] VITALS: BP 140/52; PULSE 73; RESP 20; O2SAT 95
== END 2021-12-07 02:25 | disposition home or self-care (01) ==
PROVIDERS: Emergency Provider Emergency Medicine; PCP Family Medicine
DX: R07.9 Chest pain, unspecified (principal); Z79.4 Long term (current) use of insulin; Z79.82 Long term (current) use of aspirin; Z79.02 Long term (current) use of antithrombotics/antiplatelets; I25.10 Atherosclerotic heart disease of native coronary artery without angina pectoris; I10 Essential (primary) hypertension; E78.5 Hyperlipidemia, unspecified
CPT/HCPCS: 71045; 80053; 83880; 84484; 85025; 85610; 85730; 93005; 96374; 96375; 96376; 99285; J2405; J3010

== ENCOUNTER 2021-12-17 12:53 | Outpatient (CLI) | payer MEDICARE, OTHER, SELFPAY | END 2021-12-17 12:54 | disposition home or self-care (01) | LOC: RT 12:53 | PROVIDERS: PCP Family Medicine; Visit Provider Family Medicine | DX: R06.00 Dyspnea, unspecified (principal) | CPT/HCPCS: 94060; 94726; 94729; J7614 ==

== ENCOUNTER 2021-12-20 03:57 | Emergency (ER) | payer MEDICARE, OTHER, SELFPAY ==
--- NOTE | 2021-12-20 04:00 | XRR_ITS ---
PROCEDURE INFORMATION: Exam: XR Chest Exam date and time: 12/20/2021 4:04 AM Age: 76 years old Clinical indication: Chest pressure; Prior surgery; Surgery type: Coronary stents; Patient HX: C/O chest pain; Additional info: Cp TECHNIQUE: Imaging protocol: Radiologic exam of the chest. Views: 1 view. COMPARISON: CR (CHEST, ) 12/06/2021 10:44 PM FINDINGS: Lungs: Unremarkable. No consolidation. Pleural spaces: Unremarkable. No pleural effusion. No pneumothorax. Heart/Mediastinum: Unremarkable. No cardiomegaly. Bones/joints: Unremarkable. XR/XR chest 1V portable [id number] IMPRESSION: No acute findings.
--- NOTE | 2021-12-20 04:02 | W.ED.BACK ---
HPI - Back Pain/Injury General: Chief Complaint: Back Pain/Injury Stated Complaint: back pain Time Seen by Provider: 12/20/21 03:57 Source: patient and EMS Mode of arrival: EMS Limitations: no limitations History of Present Illness: 76-year-old female who states she has been having upper back spasms for months. She states they just had at different times and she has a severe spasm especially with movement. States its been radiating to her chest as well. She is been seen here once before for this states she had no improvement states that tonight she started spasming with bad and could not move without any spasms. States it is in her thoracic spine and radiates into and around her chest. She denies any actual chest pain denies any shortness of breath denies any fever denies any injuries. Associated symptoms: Deny abdominal pain, chills, dysuria, fever(s), nausea or vomiting Review of Systems Const: Denies: fever(s), chills, body aches or change in appetite Eyes: Denies: blurry vision or eye discomfort ENMT: Denies: throat pain or dental pain Card: Reports: chest pain Resp: Denies: dyspnea GI: Denies: abdominal pain, nausea, vomiting or diarrhea : Denies: dysuria Musc: Reports: back pain Skin/Breast: Denies: rash Neuro: Denies: headache(s) Psych: Denies: depression Gael/Lymph: Denies: easy bruising All/Imm: Denies: urticaria PFS ED PFSH: Medical History Acute cystitis Anemia, chronic disease 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 Left axis deviation. Normal MS and QRS duration. Intervertebral disc disorder with radiculopathy of lumbosacral region Psychiatric care Psychiatric care Recurrent UTI Status post left heart catheterization Surgical History History of colonoscopy (~2018) History of coronary artery stent placement History of right knee surgery S/P appendectomy S/P hernia repair S/P hip replacement S/P hysterectomy Family History Family/Other Diabetes Other Cancer Social History Smoking and tobacco status: never smoked Alcohol intake: never Household members: spouse Marital status: Current occupational status: retired History of recent travel: No Physical Exam Const: COMMON NORMALS: no acute distress, patient oriented x3 and healthy appearing HENMT: COMMON NORMALS: normocephalic and atraumatic HEAD & SCALP: normocephalic and atraumatic Eye: COMMON NORMALS: Equal, round and reactive pupils present and EOMs intact bilaterally PUPIL: Yes Equal, round and reactive pupils present Neck/C-Spine: COMMON NORMALS: full ROM and supple Chest: COMMONS NORMALS: normal inspection of the chest and normal palpation of entire chest wall Resp: COMMON NORMALS: normal respiratory effort, No retractions, No use of accessory muscles and clear to auscultation bilaterally AUSCULTATION: clear to auscultation bilaterally Cardio: COMMON NORMALS: regular rate, regular rhythm and No murmurs present (Cardio) RATE: regular rate RHYTHM: regular rhythm GI: COMMON NORMALS: Normal to inspection, nondistended, normoactive bowel sounds present, Soft to palpation, non-tender and no masses PALPATION: Yes Soft to palpation Extremity: COMMON NORMALS: normal to inspection and full ROM Neuro: COMMON NORMALS: patient oriented x3, moves all extremities and no focal motor deficits Psych: COMMON NORMALS: mental status grossly normal, Normal thought process present and cooperative THOUGHT PROCESS: Normal thought process present Skin: COMMON NORMALS: no rashes or lesions noted and no wounds GENERAL SKIN EXAM: no rashes or lesions noted Course Vital Signs: Vital signs: Vital Signs Temperature 98 F 12/20/21 04:04 Pulse Rate 78 12/20/21 05:08 Respiratory Rate 18 12/20/21 05:08 Blood Pressure 137/49 12/20/21 05:08 Pulse Oximetry 93 12/20/21 05:08 Oxygen Delivery Me thod 12/20/21 04:04 MDM - Back Pain/Injury Medical Decision Making Patient presents here with back spasms is likely muscular in nature she has no signs of cardiac cause no signs of aneurysm she feels improved here after pain meds muscle relaxers will prescribe her Naprosyn Robaxin for home she is to follow-up PCP and return if worsening she understands agrees to plan. Labs : 12/20/21 04:15 12/20/21 04:15 Laboratory Results WBC 6.3 10^3/uL (4.0-10.0) 12/20/21 04:15 RBC 3.89 10^6/uL (4.1-5.3) L 12/20/21 04:15 Hgb 12.0 g/dL (11.5-15.3) 12/20/21 04:15 Hct 37.5 % (37.0-47.0) 12/20/21 04:15 MCV 96.4 fl (81-99) 12/20/21 04:15 MCH 30.8 pg (28.0-34.0) 12/20/21 04:15 MCHC 32.0 g/dL (30.0-36.0) 12/20/21 04:15 RDW 12.5 % (12.1-15.1) 12/20/21 04:15 Plt Count 198 10^3/cmm (130-400) 12/20/21 04:15 MPV 9.6 fL (7.4-10.4) 12/20/21 04:15 Neut % (Auto) 53.5 % 12/20/21 04:15 Lymph % (Auto) 31.9 % 12/20/21 04:15 [facility] % (Auto) 10.5 % 12/20/21 04:15 Eos % (Auto) 3.2 % 12/20/21 04:15 Baso % (Auto) 0.6 % 12/20/21 04:15 Neut # (Auto) 3.37 10^3/uL (1.8-7.7) 12/20/21 04:15 Lymph # (Auto) 2.0 10^3/uL (0.8-4.8) 12/20/21 04:15 [facility] # (Auto) 0.7 10^3/uL (0.2-0.9) 12/20/21 04:15 Eos # (Auto) 0.2 10^3/uL (0.0-0.8) 12/20/21 04:15 Baso # (Auto) 0.0 10^3/uL (0.0-0.1) 12/20/21 04:15 Nucleated RBC % (auto) 0 % 12/20/21 04:15 Nucleated RBCs # 0.0 /100WBC 12/20/21 04:15 Sodium 132 mmol/L (136-145) L 12/20/21 04:15 Potassium 3.8 mmol/L (3.5-5.1) 12/20/21 04:15 Chloride 95 mmol/L (98-107) L 12/20/21 04:15 Carbon Dioxide 26 mmol/L (22-29) 12/20/21 04:15 Anion Gap 14.8 (5-19) 12/20/21 04:15 BUN 15 mg/dL (8-23) 12/20/21 04:15 Creatinine 0.6 mg/dL (0.5-0.9) 12/20/21 04:15 GFR Calculation Not Reportable 12/20/21 04:15 Glucose 200 mg/dL (65-115) H 12/20/21 04:15 Calculated Osmolality 280 mOsm/kg (285-295) L 12/20/21 04:15 Calcium 9.7 mg/dL (8.5-10.5) 12/20/21 04:15 Total Bilirubin 0.2 mg/dL (0.15-1.2) 12/20/21 04:15 AST 13 U/L (0-32) 12/20/21 04:15 ALT 17 U/L (0-33) 12/20/21 04:15 Alkaline Phosphatase 159 IU/L (35-105) H 12/20/21 04:15 Troponin T Baseline 11 ng/L (0-10) H 12/20/21 04:15 Total Protein 6.5 g/dL (6.6-8.7) L 12/20/21 04:15 Albumin 3.5 g/dL (3.5-5.2) 12/20/21 04:15 Globulin 3.0 g/dL (1.3-4.6) 12/20/21 04:15 EKG Data EKG 1: I personally reviewed and interpreted this EKG as follows: EKG interpretation date: 12/20/21 EKG interpretation time: Interpretation: nsr hr [address] or t wave abnormalities qrs 99 qtc 426 Discharge Plan Discharge Patient Disposition: Home Clinical Impression: Thoracic back pain Condition: Stable Prescriptions: New methocarbamol 750 mg tablet 750 mg PO Q6H PRN (Reason: spasms) Qty: 20 0RF Naprosyn 500 mg tablet 500 mg PO BID PRN (Reason: pain) Qty: 20 0RF No Action dicyclomine 10 mg capsule 10 mg PO QID lactulose 10 gram/15 mL solution 15 ml PO DAILY@12 polyethylene glycol 3350 [Miralax] 17 gram/dose powder 17 g PO DAILY chlorthalidone 25 mg tablet 25 mg PO DAILY Qty: 90 2RF isosorbide mononitrate 120 mg tablet extended release 24 hr 120 mg PO DAILY Qty: 90 3RF cholecalciferol (vitamin D3) 1,000 unit capsule 1,000 unit PO QPM cranberry 500 mg capsule 500 mg PO QPM Lactobacillus acidophilus [Acidophilus] Capsule 1 cap PO QAM ferrous sulfate 325 mg (65 mg iron) tablet 325 mg PO DAILY@12 magnesium oxide 400 mg (241.3 mg magnesium) tablet 500 mg PO DAILY@12 nitroglycerin 0.4 mg tablet, sublingual 0.4 mg sublingual Q5M PRN (Reason: chest pain) 30 Days Qty: 30 3RF Rx Instructions: until response; do not exceed 3 doses per episode citalopram 40 mg tablet 40 mg PO QAM Qty: 30 11RF (DME) Dexcom G6 Sensor Device See Rx Instructions .Route Qty: 9 3RF Rx Instructions: Change every 10 days. (DME) Dexcom G6 Oceanographic Meteorologist Misc See Rx Instructions .Route Qty: 1 0RF Rx Instructions: Check BS 4-6 times a day. (DME) Dexcom G6 Transmitter Device See Rx Instructions .Route Qty: 3 3RF Rx Instructions: Change every 90 days prednisone 5 mg tablet 10 mg PO DAILY Qty: 180 3RF Rx Instructions: Take two tablets by mouth daily. insulin lispro [Humalog KwikPen Insulin] 100 unit/mL insulin pen 10 unit SUBCUT TID Qty: 30 3RF Rx Instructions: Inject 10 units subcut three times a day with meals. ranolazine 500 mg tablet extended release 12 hr 500 mg PO BID Qty: 180 3RF furosemide 20 mg tablet 40 mg PO DAILY PRN potassium chloride 8 mEq capsule, extended release 8 meq PO DAILY PRN (DME) blood sugar diagnostic Strip See Rx Instructions .Route Qty: 400 3RF Rx Instructions: Check blood sugar 4 times a day. (DME) lancets [Comfort EZ Lancets] 21 gauge misc See Rx Instructions .Route Qty: 400 3RF Rx Instructions: As directed (DME) Easymax 15 test strips Strip See Rx Instructions .Route Qty: 400 3RF Rx Instructions: Check BS 4 times a day. (DME) pen needle, diabetic [BD Ultra-Fine Mini Pen Needle] 31 gauge x 3/16 needle See Rx Instructions .ROUTE .COMPLEX Qty: 100 0RF Dose Instruction: USE DIRECTED Rx Instructions: USE DIRECTED quetiapine [Seroquel] 25 mg tablet 25 mg PO DAILY Qty: 30 5RF Rx Instructions: Take with 50mg dose for total daily dose of 75mg. atorvastatin 40 mg tablet 40 mg PO BEDTIME aspirin [Ecotrin Low Strength] 81 mg tablet,delayed release (DR/EC) 81 mg PO DAILY Qty: 30 3RF valsartan 320 mg tablet 320 mg PO DAILY Qty: 90 3RF albuterol sulfate 90 mcg/actuation HFA aerosol inhaler 2 puff INHALATION QID PRN (Reason: Shortness Of Breath) clopidogrel 75 mg tablet 75 mg PO QPM Rx Instructions: Must be seen for future refills Tresiba FlexTouch U-200 200 unit/mL (3 mL) insulin pen 34 unit SUBCUT QPM hydrocodone-acetaminophen 7.5-325 mg tablet 1 tab PO Q6H PRN (Reason: Pain) esomeprazole magnesium 40 mg capsule,delayed release(DR/EC) 40 mg PO QAM vitamin E 1,000 unit Capsule 1,000 unit PO DAILY ondansetron HCl 4 mg tablet 4 mg PO Q6H PRN (Reason: Nausea And Vomiting) Vitamin C 500 mg Tablet,Chewable 500 mg PO DAILY@12 Seroquel 50 mg tablet 50 mg PO BEDTIME Discharge Orders: Discharge ED (Routine); Ordered 12/20/21 Ordered By: Enrico Camejo Referrals: Arabella Orta MD [Primary Care Provider] - 1-3 days Discharge Diet: Advance as tolerated Discharge Activity: Resume usual activity Patient Instructions: Back Pain (ED) Coding Level of Care Code ED Braiding Operator for g Fwd Exam Comprehensive
[2021-12-20 04:04] VITALS: BP 165/54; PULSE 82; RESP 22; TEMP 36.6; O2SAT 98; BMI 35.9
[2021-12-20] MEDS: ondansetron 2 mg/ML SDV 2 mL 4 MG IVP (04:15)
[2021-12-20 04:16] VITALS: RESP 18
[2021-12-20] MEDS: fentaNYL 50 mcg/mL INJ 2mL IVP (04:16)
--- NOTE | 2021-12-20 04:22 | ECG_ITS ---
[facility] Test Date: 2021-12-20 Pat Name: Brandi Berg Department: Room: Gender: Female Us Marketing Director: : 1945 Requested By: Enrico Camejo Order Number: [id number] Gamal MD: Jimbo Lopez M.D. Measurements Intervals [place] Rate: 80 P: 38 CO: 180 QRS: -27 QRSD: 99 T: 81 QT: 390 QTc: 451 Interpretive Statements SINUS RHYTHM BORDERLINE LEFT AXIS DEVIATION [QRS AXIS < -20] MINIMAL VOLTAGE CRITERIA FOR LVH, CONSIDER NORMAL VARIANT [MEETS CRITERIA IN ONE OF: R(aVL), S(V1), R(V5), R(V5/V6)+S(V1)] NONSPECIFIC T-WAVE ABNORMALITY Compared to ECG 12/07/2021 00:59:17 Incomplete right bundle-branch block no longer present T-wave abnormality still present Electronically Signed On 12-20-2021 11:57:48 CDT by Jimbo Lopez M.D. [id number]
[2021-12-20 04:24] LABS: Basophils % 0.6 %; Eosinophils # 0.2 10^3/uL (0.0-0.8); Eosinophils % 3.2 %; Hematocrit 37.5 % (37.0-47.0); Lymphocytes % 31.9 %; Mean Corpuscular Hemoglobin 30.8 pg (28.0-34.0); Mean Corpuscular Volume 96.4 fl (81-99); Mean Platelet Volume 9.6 fL (7.4-10.4); Monocytes # 0.7 10^3/uL (0.2-0.9); Monocytes % 10.5 %; Neutrophils # 3.37 10^3/uL (1.8-7.7); Neutrophils % 53.5 %; Nucleated Red Blood Cells % 0 %; Platelet Count 198 10^3/cmm (130-400); Red Blood Count 3.89 10^6/uL (4.1-5.3); Red Cell Distribution Width 12.5 % (12.1-15.1); White Blood Count 6.3 10^3/uL (4.0-10.0)
[2021-12-20 04:52] LABS: Alanine Aminotransferase 17 U/L (0-33); Albumin Level 3.5 g/dL (3.5-5.2); Alkaline Phosphatase 159 IU/L (35-105); Anion Gap 14.8 (5-19); Aspartate Amino Transferase 13 U/L (0-32); Blood Urea Nitrogen 15 mg/dL (8-23); Calcium 9.7 mg/dL (8.5-10.5); Carbon Dioxide 26 mmol/L (22-29); Chloride 95 mmol/L (98-107); Glucose 200 mg/dL (65-115); Osmolality Calculated 280 mOsm/kg (285-295); Potassium 3.8 mmol/L (3.5-5.1); Sodium 132 mmol/L (136-145); Total Bilirubin 0.2 mg/dL (0.15-1.2); Total Protein 6.5 g/dL (6.6-8.7); Troponin(5th) Baseline 11 ng/L (0-10)
[2021-12-20 05:08] VITALS: BP 137/49; PULSE 78; RESP 18; O2SAT 93
[2021-12-20] MEDS: methocarbamol 750 mg Tablet PO (05:25)
[2021-12-20 05:35] VITALS: BP 137/49; PULSE 80; RESP 16; O2SAT 95
== END 2021-12-20 05:30 | disposition home or self-care (01) ==
PROVIDERS: Emergency Provider Emergency Medicine; PCP Family Medicine
DX: M54.6 Pain in thoracic spine (principal); Z79.02 Long term (current) use of antithrombotics/antiplatelets; Z79.82 Long term (current) use of aspirin; Z79.4 Long term (current) use of insulin; I25.10 Atherosclerotic heart disease of native coronary artery without angina pectoris; I10 Essential (primary) hypertension; E78.5 Hyperlipidemia, unspecified
CPT/HCPCS: 71045; 80053; 84484; 85025; 93005; 96374; 96375; 99285; J2405; J3010

== ENCOUNTER → 2021-12-31 15:05 | Outpatient (BNVA) | payer MEDICARE, OTHER, SELFPAY | PROVIDERS: PCP Family Medicine; Visit Provider Nurse Practitioner Family | DX: R60.0 Localized edema (principal) | CPT/HCPCS: 99213; 99214 ==

== ENCOUNTER 2022-01-08 06:36 | Emergency (ER) | payer MEDICARE, OTHER, SELFPAY ==
[2022-01-08 06:38] VITALS: BMI 36.6
--- NOTE | 2022-01-08 06:41 | XRR_ITS ---
PROCEDURE INFORMATION: Exam: XR Chest Exam date and time: 01/08/2022 6:54 AM Age: 76 years old Clinical indication: Shortness of breath; Patient HX: SOB chest heaviness x 1 month; Additional info: Dyspnea/cough TECHNIQUE: Imaging protocol: Radiologic exam of the chest. Views: 1 view. COMPARISON: CR (CHEST, ) 12/20/2021 4:04 AM FINDINGS: Lungs: Emphysematous change. Pleural spaces: No pleural effusion. Heart/Mediastinum: Epicardial fat, without cardiomegaly. Bones/joints: Osteopenia and degenerative change. : When correlating with the previous study, no significant interval changes are present. XR/XR chest 1V portable [id number] IMPRESSION: Stable appearance of the chest, not significantly changed from 12/20/21.
[2022-01-08 06:42] VITALS: BP 192/61; PULSE 77; RESP 19; TEMP 36.6; O2SAT 97
--- NOTE | 2022-01-08 06:57 | XRR_ITS ---
PROCEDURE INFORMATION: Exam: XR Right Knee Exam date and time: 01/08/2022 7:00 AM Age: 76 years old Clinical indication: Injury or trauma; Fall; Blunt trauma; Right; Injury details: Fell today pain to knee TECHNIQUE: Imaging protocol: Radiologic exam of the Right knee. Views: 3 views. COMPARISON: No relevant prior studies available. FINDINGS: Bones/joints: No acute bony injury or malalignment in the visualized right knee. Osteopenia and degenerative change. Subtle sclerosis involving the medial femoral condyle. Soft tissues: Calcification at the quadriceps and patellar tendon attachment sites. XR/XR knee RT 3V* [id number] IMPRESSION: No acute bony injury or malalignment in the visualized right knee.
--- NOTE | 2022-01-08 06:57 | XR_ITS ---
WS: [id number] Sternum, 3 views, 01/08/2022 Clinical Data: fall Comparison: None. Findings: No sternal fractures are seen. The body, xiphoid and manubrium show no abnormalities. XR/XR sternum min 2V [id number] Impression: Negative sternum.
--- NOTE | 2022-01-08 06:57 | XRR_ITS ---
PROCEDURE INFORMATION: Exam: XR Left Knee Exam date and time: 01/08/2022 6:55 AM Age: 76 years old Clinical indication: Injury or trauma; Fall; Blunt trauma; Left; Injury details: Fell today pain to knee TECHNIQUE: Imaging protocol: Radiologic exam of the Left knee. Views: 3 views. COMPARISON: No relevant prior studies available. FINDINGS: Bones/joints: Osteopenia and degenerative change. No acute bony injury or malalignment in the visualized left knee. Small joint effusion. Soft tissues: Calcification at the quadriceps and patellar tendon attachment sites. XR/XR knee LT 3V* [id number] IMPRESSION: No acute bony injury or malalignment in the visualized left knee.
--- NOTE | 2022-01-08 06:58 | ED_ITS ---
HPI - Trauma General: Chief Complaint: Trauma Stated Complaint: Fall Time Seen by Provider: 01/08/22 06:38 Source: patient Mode of arrival: ambulatory History of Present Illness: 76-year-old female who presents to the emergency room after a fall. Patient was sitting on the commode at home and actually dozed off and fell off the commode she hit her chest on either the edge of the bathtub or a shower stool she denies striking her head she is complaining of chest wall pain and bilateral knee pain. There is no loss consciousness states she woke up when she fell. She denies any nausea or vomiting she denies any other injury. Neurologically intact. MD complaint: fall Onset (ago): minute(s) Loss of Consciousness: no Location: chest Location - Extremities: Bilateral: knee Context: fall Associated symptoms: Reports chest pain; Denies abdominal pain, anorexia, back pain, chills, confusion, cough, dental pain, diaphoresis, difficulty breathing, dizziness, epistaxis, fever(s), headache(s), nausea, seizures, short of breath, syncope, visual disturbances, vomiting or weakness Review of Systems Const: Denies: fever(s), chills, body aches, change in appetite, fatigue, malaise or diaphoresis ENMT: Denies: throat pain, dental pain or epistaxis Card: Reports: chest pain; Denies: palpitations or syncope Resp: Denies: dyspnea, productive cough or non-productive cough GI: Denies: abdominal pain, nausea or vomiting : Denies: flank pain, difficulty voiding, dysuria, urinary frequency or urinary urgency Musc: Reports: joint pain (Bilateral knee pain); Denies: neck pain or back pain Skin/Breast: Denies: rash or pruritus Neuro: Denies: headache(s), dizziness or confusion PFS ED PFSH: Medical History Acute cystitis Anemia, chronic disease 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 Left axis deviation. Normal CA and QRS duration. Intervertebral disc disorder with radiculopathy of lumbosacral region Psychiatric care Psychiatric care Recurrent UTI Status post left heart catheterization Surgical History History of colonoscopy (~2018) History of coronary artery stent placement History of right knee surgery S/P appendectomy S/P hernia repair S/P hip replacement S/P hysterectomy Family History Family/Other Diabetes Other Cancer Social History Smoking and tobacco status: never smoked Alcohol intake: never Household members: spouse Marital status: Current occupational status: retired History of recent travel: No Physical Exam Const: GENERAL APPEARANCE: cooperative and comfortable ORIENTATION/CONSCIOUSNESS: Yes awake, Yes oriented to person, Yes oriented to place and Yes oriented to time HENMT: COMMON NORMALS: normocephalic, atraumatic, hearing grossly normal bilaterally and external ears normal HEAD & SCALP: normocephalic and atraumatic EXTERNAL EAR: Yes external ears normal Resp: COMMON NORMALS: normal respiratory effort, No retractions, No use of accessory muscles and clear to auscultation bilaterally AUSCULTATION: clear to auscultation bilaterally Cardio: COMMON NORMALS: regular rate, regular rhythm and No murmurs present (Cardio) RATE: regular rate RHYTHM: regular rhythm GI: COMMON NORMALS: Soft to palpation and No hepatosplenomegaly present AUSCULTATION: Yes normoactive bowel sounds PALPATION: Yes Soft to palpation, No Tenderness to palpation present (GI), No Guarding due to palpation present (GI) and Yes No hepatosplenomegaly present Extremity: COMMON NORMALS: normal to inspection, capillary refill normal, no clubbing, cyanosis or edema, no calf tenderness and no pedal edema Neuro: SENSORIUM/ORIENTATION: Yes oriented to person, Yes oriented to place and Yes oriented to time Skin: COMMON NORMALS: no rashes or lesions noted GENERAL SKIN EXAM: no rashes or lesions noted Course Vital Signs: Vital signs: Vital Signs Temperature 97.9 F 01/08/22 06:42 Pulse Rate 73 01/08/22 08:57 Respiratory Rate 20 H 01/08/22 08:57 Blood Pressure 128/54 01/08/22 08:57 Pulse Oximetry 92 01/08/22 08:57 Oxygen Delivery Me thod 01/08/22 08:36 MDM - Trauma Medical Decision Making Labs and imaging reviewed no acute fractures discharge home follow-up as needed Medical Records I reviewed the patient's medical records. Lab Data I reviewed the patient's lab results. : 01/08/22 07:55 01/08/22 07:48 Radiology Impressions Chest X-Ray 01/08/22 06:41 IMPRESSION: Stable appearance of the chest, not significantly changed from 12/20/21. Knee X-Ray 01/08/22 06:57 IMPRESSION: No acute bony injury or malalignment in the visualized right knee. Sternum X-Ray 01/08/22 06:57 Impression: Negative sternum. Laboratory Results WBC 7.4 10^3/uL (4.0-10.0) 01/08/22 07:55 RBC 3.75 10^6/uL (4.1-5.3) L 01/08/22 07:55 Hgb 11.6 g/dL (11.5-15.3) 01/08/22 07:55 Hct 35.5 % (37.0-47.0) L 01/08/22 07:55 MCV 94.7 fl (81-99) 01/08/22 07:55 MCH 30.9 pg (28.0-34.0) 01/08/22 07:55 MCHC 32.7 g/dL (30.0-36.0) 01/08/22 07:55 RDW 12.6 % (12.1-15.1) 01/08/22 07:55 Plt Count 204 10^3/cmm (130-400) 01/08/22 07:55 MPV 9.3 fL (7.4-10.4) 01/08/22 07:55 Neut % (Auto) 60.1 % 01/08/22 07:55 Lymph % (Auto) 25.8 % 01/08/22 07:55 [place] % (Auto) 9.8 % 01/08/22 07:55 Eos % (Auto) 3.5 % 01/08/22 07:55 Baso % (Auto) 0.4 % 01/08/22 07:55 Neut # (Auto) 4.47 10^3/uL (1.8-7.7) 01/08/22 07:55 Lymph # (Auto) 1.9 10^3/uL (0.8-4.8) 01/08/22 07:55 [place] # (Auto) 0.7 10^3/uL (0.2-0.9) 01/08/22 07:55 Eos # (Auto) 0.3 10^3/uL (0.0-0.8) 01/08/22 07:55 Baso # (Auto) 0.0 10^3/uL (0.0-0.1) 01/08/22 07:55 Nucleated RBC % (auto) 0 % 01/08/22 07:55 Nucleated RBCs # 0.0 /100WBC 01/08/22 07:55 Sodium 133 mmol/L (136-145) L 01/08/22 07:48 Potassium 3.7 mmol/L (3.5-5.1) 01/08/22 07:48 Chloride 92 mmol/L (98-107) L 01/08/22 07:48 Carbon Dioxide 32 mmol/L (22-29) H 01/08/22 07:48 Anion Gap 12.7 (5-19) 01/08/22 07:48 BUN 13 mg/dL (8-23) 01/08/22 07:48 Creatinine 0.7 mg/dL (0.5-0.9) 01/08/22 07:48 GFR Calculation Not Reportable 01/08/22 07:48 Glucose 129 mg/dL (65-115) H 01/08/22 07:48 POC Glucose 118 mg/dL (70-110) H 01/08/22 08:26 Calculated Osmolality 278 mOsm/kg (285-295) L 01/08/22 07:48 Calcium 9.9 mg/dL (8.5-10.5) 01/08/22 07:48 Discharge Plan Discharge Patient Disposition: Home Clinical Impression: Fall from chair Condition: Stable Prescriptions: No Action dicyclomine 10 mg capsule 10 mg PO QID lactulose 10 gram/15 mL solution 15 ml PO DAILY@12 polyethylene glycol 3350 [Miralax] 17 gram/dose powder 17 g PO DAILY chlorthalidone 25 mg tablet 25 mg PO DAILY Qty: 90 2RF isosorbide mononitrate 120 mg tablet extended release 24 hr 120 mg PO DAILY Qty: 90 3RF cholecalciferol (vitamin D3) 1,000 unit capsule 1,000 unit PO QPM cranberry 500 mg capsule 500 mg PO QPM Lactobacillus acidophilus [Acidophilus] Capsule 1 cap PO QAM ferrous sulfate 325 mg (65 mg iron) tablet 325 mg PO DAILY@12 magnesium oxide 400 mg (241.3 mg magnesium) tablet 500 mg PO DAILY@12 nitroglycerin 0.4 mg tablet, sublingual 0.4 mg sublingual Q5M PRN (Reason: chest pain) 30 Days Qty: 30 3RF Rx Instructions: until response; do not exceed 3 doses per episode citalopram 40 mg tablet 40 mg PO QAM Qty: 30 11RF (DME) Dexcom G6 Sensor Device See Rx Instructions .Route Qty: 9 3RF Rx Instructions: Change every 10 days. (DME) Dexcom G6 Blending Tank Tender Misc See Rx Instructions .Route Qty: 1 0RF Rx Instructions: Check BS 4-6 times a day. (DME) Dexcom G6 Transmitter Device See Rx Instructions .Route Qty: 3 3RF Rx Instructions: Change every 90 days prednisone 5 mg tablet 10 mg PO DAILY Qty: 180 3RF Rx Instructions: Take two tablets by mouth daily. insulin lispro [Humalog KwikPen Insulin] 100 unit/mL insulin pen 10 unit SUBCUT TID Qty: 30 3RF Rx Instructions: Inject 10 units subcut three times a day with meals. ranolazine 500 mg tablet extended release 12 hr 500 mg PO BID Qty: 180 3RF furosemide 20 mg tablet 40 mg PO DAILY PRN potassium chloride 8 mEq capsule, extended release 8 meq PO DAILY PRN (DME) blood sugar diagnostic Strip See Rx Instructions .Route Qty: 400 3RF Rx Instructions: Check blood sugar 4 times a day. (DME) lancets [Comfort EZ Lancets] 21 gauge misc See Rx Instructions .Route Qty: 400 3RF Rx Instructions: As directed ([facility] [place]) Easymax 15 test strips Strip See Rx Instructions .Route Qty: 400 3RF Rx Instructions: Check BS 4 times a day. quetiapine [Seroquel] 25 mg tablet 25 mg PO DAILY Qty: 30 5RF Rx Instructions: Take with 50mg dose for total daily dose of 75mg. (DME) pen needle, diabetic [BD Ultra-Fine Mini Pen Needle] 31 gauge x 3/16 needle See Rx Instructions .ROUTE .COMPLEX Qty: 100 3RF Dose Instruction: USE DIRECTED Rx Instructions: USE DIRECTED atorvastatin 40 mg tablet 40 mg PO BEDTIME aspirin [Ecotrin Low Strength] 81 mg tablet,delayed release (DR/EC) 81 mg PO DAILY Qty: 30 3RF valsartan 320 mg tablet 320 mg PO DAILY Qty: 90 3RF albuterol sulfate 90 mcg/actuation HFA aerosol inhaler 2 puff INHALATION QID PRN (Reason: Shortness Of Breath) clopidogrel 75 mg tablet 75 mg PO QPM Rx Instructions: Must be seen for future refills Tresiba FlexTouch U-200 200 unit/mL (3 mL) insulin pen 34 unit SUBCUT QPM hydrocodone-acetaminophen 7.5-325 mg tablet 1 tab PO Q6H PRN (Reason: Pain) esomeprazole magnesium 40 mg capsule,delayed release(DR/EC) 40 mg PO QAM vitamin E 1,000 unit Capsule 1,000 unit PO DAILY ondansetron HCl 4 mg tablet 4 mg PO Q6H PRN (Reason: Nausea And Vomiting) Vitamin C 500 mg Tablet,Chewable 500 mg PO DAILY@12 Seroquel 50 mg tablet 50 mg PO BEDTIME methocarbamol 750 mg tablet 750 mg PO Q6H PRN (Reason: spasms) Qty: 20 0RF Naprosyn 500 mg tablet 500 mg PO BID PRN (Reason: pain) Qty: 20 0RF Discharge Orders: Discharge ED (Routine); Ordered 01/08/22 Ordered By: Maximiliano Morris Referrals: Arabella Orta MD [Primary Care Provider] - Discharge Diet: Usual diet Discharge Activity: Resume usual activity Patient Instructions: Opioid Safety Activity Restrictions/Additional Instructions: Continue routine medications. Follow-up with your primary care doctor. Coding Level of Care Code ED Operations Specialist for [facility]
--- NOTE | 2022-01-08 07:07 | PC.NURSE ---
Pt taken to imaging. Pt alert and oriented to person, place, and time.
[2022-01-08 07:39] VITALS: BP 177/77; PULSE 70; RESP 19; O2SAT 98
[2022-01-08 08:00] VITALS: BP 150/75; PULSE 72; RESP 14; O2SAT 90
[2022-01-08 08:02] LABS: Basophils % 0.4 %; Eosinophils # 0.3 10^3/uL (0.0-0.8); Eosinophils % 3.5 %; Hematocrit 35.5 % (37.0-47.0); Hemoglobin 11.6 g/dL (11.5-15.3); Lymphocytes # 1.9 10^3/uL (0.8-4.8); Lymphocytes % 25.8 %; Mean Corpuscular HGB Conc 32.7 g/dL (30.0-36.0); Mean Corpuscular Hemoglobin 30.9 pg (28.0-34.0); Mean Corpuscular Volume 94.7 fl (81-99); Mean Platelet Volume 9.3 fL (7.4-10.4); Monocytes # 0.7 10^3/uL (0.2-0.9); Monocytes % 9.8 %; Neutrophils # 4.47 10^3/uL (1.8-7.7); Neutrophils % 60.1 %; Nucleated Red Blood Cells % 0 %; Platelet Count 204 10^3/cmm (130-400); Red Blood Count 3.75 10^6/uL (4.1-5.3); Red Cell Distribution Width 12.6 % (12.1-15.1); White Blood Count 7.4 10^3/uL (4.0-10.0)
--- NOTE | 2022-01-08 08:12 | PC.NURSE ---
Pt reports she took her 7.5 mg hydrocodone around 0500. Reports she approximates it to be around 0530 when she fell asleep on the toilet.
--- NOTE | 2022-01-08 08:15 | PC.NURSE ---
Pt resting in bed with eyes closed, oxygen 89-91% on room air. Pt oxygen improved to 94-95% when more awake. Physician notified. Pt to remain on room air.
[2022-01-08 08:30] LABS: Glucose Point of Care 118 mg/dL (70-110)
[2022-01-08 08:33] LABS: Anion Gap 12.7 (5-19); Blood Urea Nitrogen 13 mg/dL (8-23); Calcium 9.9 mg/dL (8.5-10.5); Carbon Dioxide 32 mmol/L (22-29); Chloride 92 mmol/L (98-107); Glucose 129 mg/dL (65-115); Osmolality Calculated 278 mOsm/kg (285-295); Potassium 3.7 mmol/L (3.5-5.1); Sodium 133 mmol/L (136-145)
[2022-01-08 08:36] VITALS: BP 149/87; PULSE 75; RESP 15; O2SAT 95
[2022-01-08 08:57] VITALS: BP 128/54; PULSE 73; RESP 20; O2SAT 92
== END 2022-01-08 09:00 | disposition home or self-care (01) ==
PROVIDERS: Emergency Provider Family Medicine; PCP Family Medicine
DX: Z03.89 Encounter for observation for other suspected diseases and conditions ruled out (principal); W18.12XA Fall from or off toilet with subsequent striking against object, initial encounter; Z79.02 Long term (current) use of antithrombotics/antiplatelets; Z79.82 Long term (current) use of aspirin; Z79.4 Long term (current) use of insulin; I25.10 Atherosclerotic heart disease of native coronary artery without angina pectoris; E78.5 Hyperlipidemia, unspecified
CPT/HCPCS: 36416; 71045; 71120; 73562; 80048; 82962; 85025; 99284

== ENCOUNTER → 2022-01-20 11:58 | Outpatient (BNVA) | payer MEDICARE, OTHER, SELFPAY | PROVIDERS: PCP Family Medicine; Visit Provider Nurse Practitioner Family | DX: S70.01XA Contusion of right hip, initial encounter (principal); Z91.81 History of falling; I10 Essential (primary) hypertension | CPT/HCPCS: 73502; 99214 ==

== ENCOUNTER 2022-01-30 07:39 | Outpatient (CLI) | payer MEDICARE, OTHER, SELFPAY ==
--- NOTE | 2022-01-30 08:00 | US_ITS ---
WS: [id number] ULTRASOUND SOFT TISSUES RIGHT hip. HISTORY: s/p fall onto right hip- hematoma COMPARISON: Radiographs 01/20/2022 TECHNIQUE: 2-D and color Doppler imaging is submitted. Patient directed area over the RIGHT hip in the area of interest. There is a very small fluid collect ion measuring 1.7 x 0.7 x 0.5 cm. This is within the subcutaneous soft tissues. This probably represe nts a resolving hematoma or postoperative seroma. No increased vascularity. US/US soft tissue/extremity [id number] IMPRESSION: Suspect very small postoperative seroma versus resolving hematoma along the RIG HT hip in the area of interest.
== END 2022-01-30 07:40 | disposition home or self-care (01) ==
LOC: RAD 07:41
PROVIDERS: PCP Family Medicine; Visit Provider Nurse Practitioner Family
DX: S70.01XA Contusion of right hip, initial encounter (principal); W19.XXXA Unspecified fall, initial encounter
CPT/HCPCS: 76882

== ENCOUNTER 2022-02-13 12:07 | Outpatient (CLI) | payer MEDICARE, OTHER, SELFPAY ==
--- NOTE | 2022-02-13 12:34 | XR_ITS ---
WS: [id number] KUB, AP view, 02/13/2022 Clinical Data: ABDOMINAL PAIN Comparison: KUB, 07/22/2020. Findings: No abnormal intraabdominal masses or renal calcifications are seen. There is no dilatated small bowel or evidence of obstruction. Bilateral calcifications in the upper abdomen unchanged. Calcifications are in the liver and spleen. There is a large amount of fecal material throughout the colon. The lumbar vertebral bodies show oste oarthritis. 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 XR/XR KUB [id number] Impression: Large amount of fecal material throughout the colon.
== END 2022-02-13 12:08 | disposition home or self-care (01) ==
LOC: RAD 12:14
PROVIDERS: PCP Family Medicine; Visit Provider Family Medicine
DX: R10.9 Unspecified abdominal pain (principal)
CPT/HCPCS: 74018

== ENCOUNTER → 2022-02-17 14:04 | Outpatient (BNVA) | payer MEDICARE, OTHER, SELFPAY | PROVIDERS: PCP Family Medicine; Visit Provider Internal Medicine | DX: E11.649 Type 2 diabetes mellitus with hypoglycemia without coma (principal); E27.1 Primary adrenocortical insufficiency; R61 Generalized hyperhidrosis; Z79.84 Long term (current) use of oral hypoglycemic drugs | CPT/HCPCS: 99214 ==

== ENCOUNTER → 2022-02-26 08:54 | Outpatient (BNVA) | payer MEDICARE, OTHER, SELFPAY | PROVIDERS: PCP Family Medicine; Visit Provider Nurse Practitioner Family | DX: I96 Gangrene, not elsewhere classified (principal); E11.622 Type 2 diabetes mellitus with other skin ulcer; L97.311 Non-pressure chronic ulcer of right ankle limited to breakdown of skin | CPT/HCPCS: 11042; 87070; 87176; 87205; 99203; 99213 ==

== ENCOUNTER 2022-03-03 12:53 | Emergency (ER) | payer MEDICARE, OTHER, SELFPAY ==
[2022-03-03] VITALS (24 sets, daily range): BP systolic 125–191; BP diastolic 64–77; PULSE 73–82; RESP 18–22; TEMP 36.8; O2SAT 92–99; BMI 36.6
--- NOTE | 2022-03-03 13:06 | XRR_ITS ---
PROCEDURE INFORMATION: Exam: XR Chest Exam date and time: 03/03/2022 1:23 PM Age: 76 years old Clinical indication: Pain; Angina pectoris; Additional info: Chest pain TECHNIQUE: Imaging protocol: Radiologic exam of the chest. Views: 1 view. COMPARISON: XR CHEST 01/08/2022 6:54 AM FINDINGS: Lungs: No pneumonia or pulmonary edema. Pleural spaces: No pleural effusion or pneumothorax. Heart/Mediastinum: The cardiac silhouette is not enlarged. The mediastinal contours are normal. Bones/joints: No acute osseous abnormality. Soft tissues: Left epicardial fat pad. XR/XR chest 1V portable [id number] IMPRESSION: No acute finding.
--- NOTE | 2022-03-03 13:20 | W.ED.CHESTPA ---
HPI - Chest Pain General: Chief Complaint: Chest Pain Stated Complaint: CHEST PAIN Time Seen by Provider: 03/03/22 12:54 Source: patient Mode of arrival: ambulatory History of Present Illness: 68-year-old female presents emergency room with complaint of chest pain radiating to her back. She states it began earlier today when she was actually going to go to bed and started having chest pain radiates into her neck makes her short of breath worse with any movement. She not had any episodes similar to this recently. No vomiting no diarrhea she has been nauseous with that she has a known history of coronary artery disease. She was given aspirin and nitro in route had no relief of symptoms after nitro complaint: chest pain Onset (ago): hour(s) Timing of current episode: episodic Onset: during rest Pain location: left chest Pain radiation: back Severity: mild Quality: sharp Relieving factors: nothing Exacerbating factors: nothing Context: other (History of coronary disease with cardiac catheterization in October of this year) Associated symptoms: Deny abdominal pain, diaphoresis, dyspnea, fever(s), leg edema, nausea, palpitations, sense of impending doom, syncope or vomiting Treatment prior to arrival: aspirin and nitroglycerin Review of Systems Const: Denies: fever(s), chills, fatigue or diaphoresis ENMT: Denies: throat pain, ear or mastoid pain, nasal discharge or nasal congestion Card: Reports: chest pain; Denies: palpitations, irregular heart rhythm, edema or syncope Resp: Denies: dyspnea GI: Denies: abdominal pain, nausea or vomiting : Denies: flank pain, difficulty voiding, dysuria, urinary frequency or urinary urgency Skin/Breast: Denies: rash or pruritus PFS ED PFSH: Medical History Acute cystitis Anemia, chronic disease Atherosclerotic heart disease of [place] coronary artery without angina pectoris Axonal sensorimotor neuropathy Benign essential hypertension with target blood pressure below 140/90 Benign neoplasm of cerebral meninges Bipolar II disorder Dyslipidemia (high LDL; low HDL) Gross hematuria Heart palpitations The EKG showed a sinus rhythm with some nonspecific T wave changes. Left axis deviation. Normal AL and QRS duration. Intervertebral disc disorder with radiculopathy of lumbosacral region Psychiatric care Psychiatric care Recurrent UTI Status post left heart catheterization Surgical History History of colonoscopy (~2018) History of coronary artery stent placement History of right knee surgery S/P appendectomy S/P hernia repair S/P hip replacement S/P hysterectomy Family History Family/Other Diabetes Other Cancer Social History Smoking and tobacco status: never smoked Alcohol intake: never Household members: spouse Marital status: Current occupational status: retired History of recent travel: No Physical Exam Const: COMMON NORMALS: no acute distress GENERAL APPEARANCE: cooperative and comfortable ORIENTATION/CONSCIOUSNESS: Yes awake, Yes oriented to person, Yes oriented to place and Yes oriented to time HENMT: COMMON NORMALS: normocephalic, atraumatic and hearing grossly normal bilaterally HEAD & SCALP: normocephalic and atraumatic Chest: OTHER: Chest pain mildly reproducible with palpation in the anterior chest Resp: COMMON NORMALS: normal respiratory effort, No retractions, No use of accessory muscles and clear to auscultation bilaterally AUSCULTATION: clear to auscultation bilaterally Cardio: COMMON NORMALS: regular rate, regular rhythm and No murmurs present (Cardio) RATE: regular rate RHYTHM: regular rhythm GI: COMMON NORMALS: Soft to palpation and No hepatosplenomegaly present AUSCULTATION: Yes normoactive bowel sounds PALPATION: Yes Soft to palpation, No Tenderness to palpation present (GI), No Guarding due to palpation present (GI) and Yes No hepatosplenomegaly present Extremity: COMMON NORMALS: normal to inspection, capillary refill normal, no clubbing, cyanosis or edema, no calf tenderness and no pedal edema Neuro: SENSORIUM/ORIENTATION: Yes oriented to person, Yes oriented to place and Yes oriented to time Skin: COMMON NORMALS: no rashes or lesions noted GENERAL SKIN EXAM: no rashes or lesions noted Course Vital Signs: Vital signs: Vital Signs Temperature 98.3 F 03/03/22 12:54 Pulse Rate 82 03/03/22 16:30 Respiratory Rate 22 H 03/03/22 14:30 Blood Pressure 150/71 03/03/22 18:20 Pulse Oximetry 97 03/03/22 18:20 Oxygen Delivery Me thod 03/03/22 16:30 MDM - Chest Pain Medical Decision Making Cardiac enzymes negative patient had a coronary artery catheterization on November 14 of this year that was essentially unremarkable. Medical Records I reviewed the patient's medical records. Lab Data I reviewed the patient's lab results. : 03/03/22 13:59 03/03/22 13:59 Radiology Impressions Chest X-Ray 03/03/22 13:06 IMPRESSION: No acute finding. Laboratory Results WBC 7.5 10^3/uL (4.0-10.0) 03/03/22 13:59 RBC 3.89 10^6/uL (4.1-5.3) L 03/03/22 13:59 Hgb 12.5 g/dL (11.5-15.3) 03/03/22 13:59 Hct 36.1 % (37.0-47.0) L 03/03/22 13:59 MCV 92.8 fl (81-99) 03/03/22 13:59 MCH 32.1 pg (28.0-34.0) 03/03/22 13:59 MCHC 34.6 g/dL (30.0-36.0) 03/03/22 13:59 RDW 12.7 % (12.1-15.1) 03/03/22 13:59 Plt Count 214 10^3/cmm (130-400) 03/03/22 13:59 MPV 9.6 fL (7.4-10.4) 03/03/22 13:59 Neut % (Auto) 66.4 % 03/03/22 13:59 Lymph % (Auto) 21.2 % 03/03/22 13:59 [place] % (Auto) 9.1 % 03/03/22 13:59 Eos % (Auto) 2.4 % 03/03/22 13:59 Baso % (Auto) 0.4 % 03/03/22 13:59 Neut # (Auto) 4.95 10^3/uL (1.8-7.7) 03/03/22 13:59 Lymph # (Auto) 1.6 10^3/uL (0.8-4.8) 03/03/22 13:59 [place] # (Auto) 0.7 10^3/uL (0.2-0.9) 03/03/22 13:59 Eos # (Auto) 0.2 10^3/uL (0.0-0.8) 03/03/22 13:59 Baso # (Auto) 0.0 10^3/uL (0.0-0.1) 03/03/22 13:59 Nucleated RBC % (auto) 0 % 03/03/22 13:59 Nucleated RBCs # 0.0 /100WBC 03/03/22 13:59 Sodium 131 mmol/L (136-145) L 03/03/22 13:59 Potassium 3.9 mmol/L (3.5-5.1) 03/03/22 13:59 Chloride 93 mmol/L (98-107) L 03/03/22 13:59 Carbon Dioxide 25 mmol/L (22-29) 03/03/22 13:59 Anion Gap 16.9 (5-19) 03/03/22 13:59 BUN 11 mg/dL (8-23) 03/03/22 13:59 Creatinine 0.6 mg/dL (0.5-0.9) 03/03/22 13:59 GFR Calculation Not Reportable 03/03/22 13:59 Glucose 247 mg/dL (65-115) H 03/03/22 13:59 Calculated Osmolality 280 mOsm/kg (285-295) L 03/03/22 13:59 Calcium 9.6 mg/dL (8.5-10.5) 03/03/22 13:59 Total Bilirubin 0.2 mg/dL (0.15-1.2) 03/03/22 13:59 AST 13 U/L (0-32) 03/03/22 13:59 ALT 16 U/L (0-33) 03/03/22 13:59 Alkaline Phosphatase 157 U/L (35-105) H 03/03/22 13:59 Troponin T Baseline 11 ng/L (0-10) H 03/03/22 13:59 Troponin T 120 Minute 10.70 ng/L (0-10) H 03/03/22 15:58 Delta Troponin T -0.30 ABS# (0-10) L 03/03/22 15:58 Total Protein 6.3 g/dL (6.6-8.7) L 03/03/22 13:59 Albumin 4.0 g/dL (3.5-5.2) 03/03/22 13:59 Globulin 2.3 g/dL (1.3-4.6) 03/03/22 13:59 Discharge Plan Discharge Patient Disposition: Home Clinical Impression: Atypical chest pain Condition: Stable Prescriptions: Changed esomeprazole magnesium 40 mg capsule,delayed release(DR/EC) 40 mg PO BID Qty: 60 0RF No Action dicyclomine 10 mg capsule 10 mg PO QID lactulose 10 gram/15 mL solution 15 ml PO DAILY@12 polyethylene glycol 3350 [Miralax] 17 gram/dose powder 17 g PO DAILY chlorthalidone 25 mg tablet 25 mg PO DAILY Qty: 90 2RF isosorbide mononitrate 120 mg tablet extended release 24 hr 120 mg PO DAILY Qty: 90 3RF cholecalciferol (vitamin D3) 1,000 unit capsule 1,000 unit PO QPM cranberry 500 mg capsule 500 mg PO QPM Lactobacillus acidophilus [Acidophilus] Capsule 1 cap PO QAM ferrous sulfate 325 mg (65 mg iron) tablet 325 mg PO DAILY@12 magnesium oxide 400 mg (241.3 mg magnesium) tablet 500 mg PO DAILY@12 nitroglycerin 0.4 mg tablet, sublingual 0.4 mg sublingual Q5M PRN (Reason: chest pain) 30 Days Qty: 30 3RF Rx Instructions: until response; do not exceed 3 doses per episode citalopram 40 mg tablet 40 mg PO QAM Qty: 30 11RF prednisone 5 mg tablet 10 mg PO DAILY Qty: 180 3RF Rx Instructions: Take two tablets by mouth daily. insulin lispro [Humalog KwikPen Insulin] 100 unit/mL insulin pen 10 unit SUBCUT TID Qty: 30 3RF Rx Instructions: Inject 10 units subcut three times a day with meals. ranolazine 500 mg tablet extended release 12 hr 500 mg PO BID Qty: 180 3RF furosemide 20 mg tablet 40 mg PO DAILY potassium chloride 8 mEq capsule, extended release 16 meq PO DAILY (DME) FreeStyle Tor 2 Sensor Kit See Rx Instructions .MEDSUPPLY Qty: 3 3RF Rx Instructions: As directed (DME) FreeStyle Tor 2 [place] Misc See Rx Instructions .Route Qty: 1 0RF Rx Instructions: As directed (DME) blood sugar diagnostic Strip See Rx Instructions .Route Qty: 400 3RF Rx Instructions: Check blood sugar 4 times a day. (DME) lancets [Comfort EZ Lancets] 21 gauge misc See Rx Instructions .Route Qty: 400 3RF Rx Instructions: As directed (DME) Easymax 15 test strips Strip See Rx Instructions .Route Qty: 400 3RF Rx Instructions: Check BS 4 times a day. quetiapine [Seroquel] 25 mg tablet 25 mg PO DAILY Qty: 30 5RF Rx Instructions: Take with 50mg dose for total daily dose of 75mg. clopidogrel 75 mg tablet 75 mg PO QPM Qty: 90 3RF (DME) Dexcom G6 [employer] Misc See Rx Instructions .Route Qty: 1 0RF Rx Instructions: Check BS 4-6 times a day. (DME) Dexcom G6 Sensor Device See Rx Instructions .Route Qty: 9 3RF Rx Instructions: Change every 10 days. (DME) Dexcom G6 Transmitter Device See Rx Instructions .Route Qty: 3 3RF Rx Instructions: Change every 90 days (DME) pen needle, diabetic [BD Ultra-Fine Mini Pen Needle] 31 gauge x 3/16 needle See Rx Instructions .ROUTE .COMPLEX Qty: 400 3RF Dose Instruction: USE DIRECTED Rx Instructions: QID atorvastatin 40 mg tablet 40 mg PO BEDTIME aspirin [Ecotrin Low Strength] 81 mg tablet,delayed release (DR/EC) 81 mg PO DAILY Qty: 30 3RF valsartan 320 mg tablet 320 mg PO DAILY Qty: 90 3RF albuterol sulfate 90 mcg/actuation HFA aerosol inhaler 2 puff INHALATION QID PRN (Reason: Shortness Of Breath) Tresiba FlexTouch U-200 200 unit/mL (3 mL) insulin pen 34 unit SUBCUT QPM hydrocodone-acetaminophen 7.5-325 mg tablet 1 tab PO Q6H PRN (Reason: Pain) vitamin E 1,000 unit Capsule 1,000 unit PO DAILY ascorbic acid (vitamin C) [Vitamin C] 500 mg Tablet,Chewable 500 mg PO DAILY@12 quetiapine [Seroquel] 50 mg tablet 50 mg PO BEDTIME Discharge Orders: Discharge ED (Routine); Ordered 03/03/22 Ordered By: Maximiliano Morris Referrals: Arabella Orta MD [Primary Care Provider] - Discharge Diet: Usual diet Discharge Activity: Increase activity as tolerated Patient Instructions: Opioid Safety, Pain Management Activity Restrictions/Additional Instructions: Follow-up with your primary care doctor or your counter dish carrier if have recurrent symptoms. reviewed your old records, your previous heart catheterization done in October of this year was normal. 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
--- NOTE | 2022-03-03 13:35 | ECG_ITS ---
[facility] Test Date: 2022-03-03 Pat Name: rBandi Berg Department: Room: Gender: Female Travel Manager: : 1945 Requested By: Maximiliano Lundberg Order Number: [id number] Gamal MD: Jose Sumner M.D. Measurements Intervals [place] Rate: 75 P: 46 MD: 167 QRS: -30 QRSD: 109 T: 67 QT: 383 QTc: 429 Interpretive Statements SINUS RHYTHM BORDERLINE LEFT AXIS DEVIATION [QRS AXIS < -20] NONSPECIFIC T-WAVE ABNORMALITY Compared to ECG 12/20/2021 04:22:41 No significant changes Electronically Signed On 03-04-2022 8:26:13 CDT by Jose Sumner M.D. [id number]
[2022-03-03 14:10] LABS: Basophils % 0.4 %; Eosinophils # 0.2 10^3/uL (0.0-0.8); Eosinophils % 2.4 %; Hematocrit 36.1 % (37.0-47.0); Hemoglobin 12.5 g/dL (11.5-15.3); Lymphocytes # 1.6 10^3/uL (0.8-4.8); Lymphocytes % 21.2 %; Mean Corpuscular HGB Conc 34.6 g/dL (30.0-36.0); Mean Corpuscular Hemoglobin 32.1 pg (28.0-34.0); Mean Corpuscular Volume 92.8 fl (81-99); Mean Platelet Volume 9.6 fL (7.4-10.4); Monocytes # 0.7 10^3/uL (0.2-0.9); Monocytes % 9.1 %; Neutrophils # 4.95 10^3/uL (1.8-7.7); Neutrophils % 66.4 %; Nucleated Red Blood Cells % 0 %; Platelet Count 214 10^3/cmm (130-400); Red Blood Count 3.89 10^6/uL (4.1-5.3); Red Cell Distribution Width 12.7 % (12.1-15.1); White Blood Count 7.5 10^3/uL (4.0-10.0)
[2022-03-03 14:35] LABS: Alanine Aminotransferase 16 U/L (0-33); Alkaline Phosphatase 157 U/L (35-105); Anion Gap 16.9 (5-19); Aspartate Amino Transferase 13 U/L (0-32); Blood Urea Nitrogen 11 mg/dL (8-23); Calcium 9.6 mg/dL (8.5-10.5); Carbon Dioxide 25 mmol/L (22-29); Chloride 93 mmol/L (98-107); Globulin 2.3 g/dL (1.3-4.6); Glucose 247 mg/dL (65-115); Osmolality Calculated 280 mOsm/kg (285-295); Potassium 3.9 mmol/L (3.5-5.1); Sodium 131 mmol/L (136-145); Total Bilirubin 0.2 mg/dL (0.15-1.2); Total Protein 6.3 g/dL (6.6-8.7)
[2022-03-03 14:36] LABS: Troponin(5th) Baseline 11 ng/L (0-10)
--- NOTE | 2022-03-03 15:06 | ECG_ITS ---
[facility] Test Date: 2022-03-03 Pat Name: Brandi Berg Department: Room: Gender: Female Women'S Activities Adviser: : 1945 Requested By: Maximiliano Lundberg Order Number: [id number] Gamal MD: Jose Sumner M.D. Measurements Intervals [place] Rate: 74 P: 54 ID: [id number] QRS: -30 QRSD: 101 T: 76 QT: 388 QTc: 432 Interpretive Statements SINUS RHYTHM BORDERLINE LEFT AXIS DEVIATION [QRS AXIS < -20] NONSPECIFIC T-WAVE ABNORMALITY Compared to ECG 03/03/2022 13:35:42 No significant changes Electronically Signed On 03-04-2022 8:22:18 CDT by Jose Sumner M.D. [id number]
[2022-03-03] MEDS: HYDROcodone-acetaminophen 5-325 mg Tablet 2 TAB PO (18:20)
== END 2022-03-03 18:39 | disposition home or self-care (01) ==
PROVIDERS: Emergency Provider Family Medicine; PCP Family Medicine
DX: R07.89 Other chest pain (principal); Z79.02 Long term (current) use of antithrombotics/antiplatelets; Z79.82 Long term (current) use of aspirin; Z79.4 Long term (current) use of insulin; I25.10 Atherosclerotic heart disease of native coronary artery without angina pectoris; I10 Essential (primary) hypertension; E78.5 Hyperlipidemia, unspecified
CPT/HCPCS: 71045; 80053; 84484; 85025; 93005; 99285

== ENCOUNTER 2022-03-05 11:46 | Outpatient (CLI) | payer MEDICARE, OTHER, SELFPAY ==
--- NOTE | 2022-03-05 11:45 | USCV_ITS ---
Brandi Berg Age: 76 Gender: F : 1945 Exam Date: 03/05/2022 12:06 Ordering Phys: Ursula Hanna Technologist: Alan Moreno Exam Location: [facility] [place] Site Location: [Add Site Location] Indication: pain in legs, redness Risk Factors: Previous Vascular Surgery: RIGHT LEFT BP: 134.0 / 61.00 BP: 136.0/ 64.00 0 0 Waveform Velocity (cm/s) Velocity (cm/s) Waveform Triphasic 116.3 Iliac Prox 115.9 Triphasic Triphasic 97.6 Iliac Mid 124.3 Triphasic Triphasic 105.4 Iliac Distal 121.2 Triphasic Triphasic 108.1 PHARMACY CLINICAL SPECIALIST 67.0 Biphasic Biphasic 120.9 SFA Prox 89.4 Biphasic Triphasic 153.8 SFA Mid 131.5 Biphasic Triphasic 153.8 SFA Dist 275.7 Biphasic Biphasic 85.4 POP 70.6 Biphasic Biphasic 44.4 REINFORCED IRONWORKER 48.6 Monophasic Triphasic 76.9 DPA 47.5 Monophasic 1.1 TOM 0.9 FINDINGS Resting TOM 1.1 on the right and 0.9 on the left Arterial Doppler flow velocities are within normal limits on the right side. Significantly elevated Doppler velocity at the distal SFA on the left side Mild to moderate diffuse plaques in the femoral and iliac arteries bilaterally CONCLUSIONS Normal resting TOM on the right side suggesting no significant arterial obstruction Mild to moderate diffuse plaques bilaterally. Slightly diminished resting TOM on the left side, suggesting mild peripheral artery disease. The elevated velocity at the distal superficial femoral artery on the left side, is suggestive of hemodynamically significant stenosis. Consider exercise TOM to better evaluate the functional significance of the SFA stenosis. No similar previous studies are available for comparison Dr Gilma Cai MD [facility] (Electronically Signed) Final Date: 05 March 2022 16:55 S
--- NOTE | 2022-03-05 11:52 | XR_ITS ---
WS: [id number] Right hip, AP and frog-leg views, 03/05/2022 Clinical Data: s/p fall onto right hip, pain, diff rotating hip Comparison: Right hip, 01/20/2022. Findings: The right hip arthroplasty remains in good position. No loosening is seen. There are no periprostheti c fractures. The visualized right SI joint and the pubic symphysis are normal. The soft tissues are u nremarkable. XR/XR hip RT 2-3V wo/w pel* [id number] Impression: No change in right hip arthroplasty.
== END 2022-03-05 11:47 | disposition home or self-care (01) ==
LOC: RAD 11:48
PROVIDERS: PCP Family Medicine; Visit Provider Nurse Practitioner Family
DX: M25.551 Pain in right hip (principal); M79.604 Pain in right leg; M79.605 Pain in left leg; Z96.641 Presence of right artificial hip joint; E11.622 Type 2 diabetes mellitus with other skin ulcer; L97.311 Non-pressure chronic ulcer of right ankle limited to breakdown of skin
CPT/HCPCS: 73502; 93925; 99212

== ENCOUNTER 2022-04-24 18:27 | Emergency (ER) | payer MEDICARE, OTHER, SELFPAY ==
[2022-04-24 18:40] VITALS: BP 162/64; PULSE 91; O2SAT 90
--- NOTE | 2022-04-24 18:55 | ED_ITS ---
HPI - Nausea/Vomiting/Diarrhea General: Chief complaint: Nausea/Vomiting/Diarrhea Stated complaint: Nausea/Vomiting Time Seen by Provider: 04/24/22 18:52 History of Present Illness: 77-year-old female comes in today with complaints of nausea vomiting and diarrhea. Patient only reports 2 episodes of vomiting and several episodes of diarrhea. Patient came in due to concerns of not being able to eat all day. Patient appears mildly unwell but not toxic. Patient appears in mild pain. Patient has a history of hip replacement done this year on the right side. Patient lives with her at home. Patient also has coronary artery disease, hypertension, diabetes mellitus, neuropathy, intervertebral disc disease, anemia, and recurrent UTI. Associated nausea: Yes Associated symtoms: Reports nausea Review of Systems Const: Denies: fever(s) GI: Reports: nausea, vomiting and diarrhea PFSH ED PFSH: Medical History Acute cystitis Anemia, chronic disease Atherosclerotic heart disease of [place] coronary artery without angina pectoris Axonal sensorimotor neuropathy Benign essential hypertension with target blood pressure below 140/90 Benign neoplasm of cerebral meninges Bipolar II disorder Dyslipidemia (high LDL; low HDL) Gross hematuria Heart palpitations The EKG showed a sinus rhythm with some nonspecific T wave changes. Left axis deviation. Normal [place] and QRS duration. Intervertebral disc disorder with radiculopathy of lumbosacral region Psychiatric care Psychiatric care Recurrent UTI Status post left heart catheterization Surgical History History of colonoscopy (~2018) History of coronary artery stent placement History of right knee surgery S/P appendectomy S/P hernia repair S/P hip replacement S/P hysterectomy Family History Family/Other Diabetes Other Cancer Social History (Updated 03/26/22 @ 13:12 by Cyndi Saenz) Smoking and tobacco status: never smoked Alcohol intake: never Household members: spouse Marital status: Current occupational status: retired History of recent travel: No Physical Exam Const: COMMON NORMALS: alert HENMT: COMMON NORMALS: normocephalic HEAD & SCALP: normocephalic Neck/C-Spine: COMMON NORMALS: full ROM Resp: COMMON NORMALS: normal respiratory effort and clear to auscultation bilaterally AUSCULTATION: clear to auscultation bilaterally Cardio: COMMON NORMALS: regular rate and regular rhythm RATE: regular rate RHYTHM: regular rhythm GI: COMMON NORMALS: Soft to palpation AUSCULTATION: Yes normoactive bowel sounds PALPATION: Yes Soft to palpation and No Tenderness to palpation present (GI) Extremity: COMMON NORMALS: no pedal edema Neuro: SENSORIUM/ORIENTATION: Yes alert Skin: COMMON NORMALS: no mottling Course Vital Signs: Vital signs: Vital Signs Pulse Rate 91 04/24/22 18:40 Blood Pressure 162/64 04/24/22 18:40 Pulse Oximetry 90 04/24/22 18:40 Oxygen Delivery Me thod 04/24/22 18:40 MDM - Nausea/Vomiting/Diarrhea Medical Decision Making Patient comes in today for complaints of 2 episodes of vomiting and several episodes of diarrhea starting this morning. Patient has have a history of recurrent urinary tract infections, gastroenteritis, multiple drug allergies, diabetes mellitus, coronary artery disease, intervertebral disc disease. On exam abdomen soft nontender. Bowel sounds are present. Skin was warm and dry. Vital signs were normal. Patient was given 4 mg of Zofran in route by EMS with some improvement of symptoms. Differential diagnosis includes but not limited to dehydration, diverticulitis, gastroenteritis, bowel obstruction, urinary tract infection. Laboratory values noted no significant abnormality. CT of the abdomen pelvis was unremarkable. Patient was given 4 mg of Zofran, 2 tablets of Lomotil, and 500 mL of saline. Patient reported improvement of symptoms was able to tolerate fluids. Recommended continued increase in diet to normal diet over the next 24 to 48 hours. Recommend returning to ER for worsening symptoms or new concerns. Patient reported understanding agreed to plan. Lab Data 04/24/22 18:52 04/24/22 18:52 Radiology Impressions Abdomen/Pelvis CT 04/24/22 19:00 IMPRESSION: 1. No acute findings. 2. Incidental findings above. Laboratory Results WBC 9.5 10^3/uL (4.0-10.0) 04/24/22 18:52 RBC 4.37 10^6/uL (4.1-5.3) 04/24/22 18:52 Hgb 13.8 g/dL (11.5-15.3) 04/24/22 18:52 Hct 41.8 % (37.0-47.0) 04/24/22 18:52 MCV 95.7 fl (81-99) 04/24/22 18:52 MCH 31.6 pg (28.0-34.0) 04/24/22 18:52 MCHC 33.0 g/dL (30.0-36.0) 04/24/22 18:52 RDW 12.6 % (12.1-15.1) 04/24/22 18:52 Plt Count 188 10^3/cmm (130-400) 04/24/22 18:52 MPV 10.3 fL (7.4-10.4) 04/24/22 18:52 Neut % (Auto) 86.2 % 04/24/22 18:52 Lymph % (Auto) 6.7 % 04/24/22 18:52 Taylor % (Auto) 4.7 % 04/24/22 18:52 Eos % (Auto) 1.7 % 04/24/22 18:52 Baso % (Auto) 0.2 % 04/24/22 18:52 Neut # (Auto) 8.17 10^3/uL (1.8-7.7) H 04/24/22 18:52 Lymph # (Auto) 0.6 10^3/uL (0.8-4.8) L 04/24/22 18:52 Taylor # (Auto) 0.5 10^3/uL (0.2-0.9) 04/24/22 18:52 Eos # (Auto) 0.2 10^3/uL (0.0-0.8) 04/24/22 18:52 Baso # (Auto) 0.0 10^3/uL (0.0-0.1) 04/24/22 18:52 Nucleated RBC % (auto) 0 % 04/24/22 18:52 Nucleated RBCs # 0.0 /100WBC 04/24/22 18:52 Sodium 131 mmol/L (136-145) L 04/24/22 18:52 Potassium 4.1 mmol/L (3.5-5.1) 04/24/22 18:52 Chloride 92 mmol/L (98-107) L 04/24/22 18:52 Carbon Dioxide 28 mmol/L (22-29) 04/24/22 18:52 Anion Gap 15.1 (5-19) 04/24/22 18:52 BUN 17 mg/dL (8-23) 04/24/22 18:52 Creatinine 0.6 mg/dL (0.5-0.9) 04/24/22 18:52 GFR Calculation Not Reportable 04/24/22 18:52 Glucose 156 mg/dL (65-115) H 04/24/22 18:52 Calculated Osmolality 277 mOsm/kg (285-295) L 04/24/22 18:52 Calcium 9.8 mg/dL (8.5-10.5) 04/24/22 18:52 Total Bilirubin 0.6 mg/dL (0.15-1.2) 04/24/22 18:52 AST 21 U/L (0-32) 04/24/22 18:52 ALT 23 U/L (0-33) 04/24/22 18:52 Alkaline Phosphatase 129 U/L (35-105) H 04/24/22 18:52 Total Protein 6.8 g/dL (6.6-8.7) 04/24/22 18:52 Albumin 4.1 g/dL (3.5-5.2) 04/24/22 18:52 Globulin 2.7 g/dL (1.3-4.6) 04/24/22 18:52 Lipase 18 U/L (13-60) 04/24/22 18:52 Urine Color Yellow (Yellow) 04/24/22 19:29 Urine Appearance Clear (CLEAR) 04/24/22 19:29 Urine pH 6 (5-7) 04/24/22 19:29 Ur Specific [place] 1.010 (1.005-1.030) 04/24/22 19:29 Urine Protein Neg (Negative) 04/24/22 19:29 Urine Glucose (UA) Norm (Normal) 04/24/22 19: Urine Ketones Negative (Negative) 04/24/22 19: Urine Blood 2+ (Negative) H 04/24/22 19:29 Urine Nitrate Negative (Negative) 04/24/22 19: Urine Bilirubin Neg (Negative) 04/24/22 19: Urine Urobilinogen Norm mg/dL (Negative) 04/24/22 19: Ur Leukocyte Esterase 1+ (Negative) H 04/24/22 19:29 Urine RBC 0-4 /hpf (0-2) H 04/24/22 19:29 Urine WBC 5-10 /hpf (0-5) H 04/24/22 19:29 Ur Squamous Epith Cells 0-4 /hpf (0-5) H 04/24/22 19:29 Amorphous Sediment Not Reportable 04/24/22 19:29 Urine Bacteria None /hpf (NONE) 04/24/22 19:29 Discharge Plan Discharge Patient Disposition: Home Clinical Impression: Gastroenteritis Condition: Stable Prescriptions: New ondansetron 4 mg tablet,disintegrating 4 mg PO Q8H PRN (Reason: nausea and vomiting) Qty: 7 0RF No Action dicyclomine 10 mg capsule 10 mg PO QID lactulose 10 gram/15 mL solution 15 ml PO DAILY@12 polyethylene glycol 3350 [Miralax] 17 gram/dose powder 17 g PO DAILY chlorthalidone 25 mg tablet 25 mg PO DAILY Qty: 90 2RF isosorbide mononitrate 120 mg tablet extended release 24 hr 120 mg PO DAILY Qty: 90 3RF cholecalciferol (vitamin D3) 1,000 unit capsule 1,000 unit PO QPM cranberry 500 mg capsule 500 mg PO QPM Lactobacillus acidophilus [Acidophilus] Capsule 1 cap PO QAM ferrous sulfate 325 mg (65 mg iron) tablet 325 mg PO DAILY@12 magnesium oxide 400 mg (241.3 mg magnesium) tablet 500 mg PO DAILY@12 nitroglycerin 0.4 mg tablet, sublingual 0.4 mg sublingual Q5M PRN (Reason: chest pain) 30 Days Qty: 30 3RF Rx Instructions: until response; do not exceed 3 doses per episode citalopram 40 mg tablet 40 mg PO QAM Qty: 30 11RF prednisone 5 mg tablet 10 mg PO DAILY Qty: 180 3RF Rx Instructions: Take two tablets by mouth daily. insulin lispro [Humalog KwikPen Insulin] 100 unit/mL insulin pen 10 unit SUBCUT TID Qty: 30 3RF Rx Instructions: Inject 10 units subcut three times a day with meals. ranolazine 500 mg tablet extended release 12 hr 500 mg PO BID Qty: 180 3RF furosemide 20 mg tablet 40 mg PO DAILY potassium chloride 8 mEq capsule, extended release 16 meq PO DAILY (DME) FreeStyle Tor 2 Sensor Kit See Rx Instructions .MEDSUPPLY Qty: 3 3RF Rx Instructions: As directed (DME) FreeStyle Tor 2 [place] Misc See Rx Instructions .Route Qty: 1 0RF Rx Instructions: As directed (DME) blood sugar diagnostic Strip See Rx Instructions .Route Qty: 400 3RF Rx Instructions: Check blood sugar 4 times a day. (DME) lancets [Comfort EZ Lancets] 21 gauge misc See Rx Instructions .Route Qty: 400 3RF Rx Instructions: [place] [place] Easymax 15 test strips Strip See Rx Instructions .Route Qty: 400 3RF Rx Instructions: Check BS 4 times a day. quetiapine [Seroquel] 25 mg tablet 25 mg PO DAILY Qty: 30 5RF Rx Instructions: Take with 50mg dose for total daily dose of 75mg. clopidogrel 75 mg tablet 75 mg PO QPM Qty: 90 3RF (DME) Dexcom G6 White Sugar Pan Tank Operator Misc See Rx Instructions .Route Qty: 1 0RF Rx Instructions: Check BS 4-6 times a day. [place] [place] Dexcom G6 Sensor Device See Rx Instructions .Route Qty: 9 3RF Rx Instructions: Change every 10 days. (DME) Dexcom G6 Transmitter Device See Rx Instructions .Route Qty: 3 3RF Rx Instructions: Change every 90 days [place] pen needle, diabetic [BD Ultra-Fine Mini Pen Needle] 31 gauge x 3/16 needle See Rx Instructions .ROUTE .COMPLEX Qty: 400 3RF Dose Instruction: USE DIRECTED Rx Instructions: QID atorvastatin 40 mg tablet 40 mg PO BEDTIME aspirin [Ecotrin Low Strength] 81 mg tablet,delayed release (DR/EC) 81 mg PO DAILY Qty: 30 3RF valsartan 320 mg tablet 320 mg PO DAILY Qty: 90 3RF albuterol sulfate 90 mcg/actuation HFA aerosol inhaler 2 puff INHALATION QID PRN (Reason: Shortness Of Breath) Tresiba FlexTouch U-200 200 unit/mL (3 mL) insulin pen 34 unit SUBCUT QPM hydrocodone-acetaminophen 7.5-325 mg tablet 1 tab PO Q6H PRN (Reason: Pain) vitamin E 1,000 unit Capsule 1,000 unit PO DAILY ascorbic acid (vitamin C) [Vitamin C] 500 mg Tablet,Chewable 500 mg PO DAILY@12 quetiapine [Seroquel] 50 mg tablet 50 mg PO BEDTIME esomeprazole magnesium 40 mg capsule,delayed release(DR/EC) 40 mg PO BID Qty: 60 0RF Discharge Orders: Discharge ED (Routine); Ordered 04/24/22 Ordered By: Sawyer Tony Referrals: Arabella Orta MD [Primary Care Provider] - Discharge Diet: Advance as tolerated Discharge Activity: Increase activity as tolerated Patient Instructions: Gastroenteritis (ED) Activity Restrictions/Additional Instructions: Home and rest. Drink plenty of fluids. Take sips of fluid frequently to avoid dehydration. Eat a light diet until he can tolerate normal food. Start with liquids and then increase to bland foods. Follow-up with primary care as needed. Return to emergency department for worsening symptoms such as fever greater than 100.4, blood in vomit or stool, inability to hold fluids down, no urine output within 8 hours. 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
[2022-04-24 18:58] LABS: Basophils % 0.2 %; Eosinophils # 0.2 10^3/uL (0.0-0.8); Eosinophils % 1.7 %; Hematocrit 41.8 % (37.0-47.0); Hemoglobin 13.8 g/dL (11.5-15.3); Lymphocytes # 0.6 10^3/uL (0.8-4.8); Lymphocytes % 6.7 %; Mean Corpuscular Hemoglobin 31.6 pg (28.0-34.0); Mean Corpuscular Volume 95.7 fl (81-99); Mean Platelet Volume 10.3 fL (7.4-10.4); Monocytes # 0.5 10^3/uL (0.2-0.9); Monocytes % 4.7 %; Neutrophils # 8.17 10^3/uL (1.8-7.7); Neutrophils % 86.2 %; Nucleated Red Blood Cells % 0 %; Platelet Count 188 10^3/cmm (130-400); Red Blood Count 4.37 10^6/uL (4.1-5.3); Red Cell Distribution Width 12.6 % (12.1-15.1); White Blood Count 9.5 10^3/uL (4.0-10.0)
--- NOTE | 2022-04-24 19:00 | CTR_ITS ---
PROCEDURE INFORMATION: Exam: CT Abdomen And Pelvis Without Contrast Exam date and time: 04/24/2022 7:05 PM Age: 77 years old Clinical indication: Nausea and vomiting; Prior surgery; Surgery type: Gb. Appy. Hysterectomy. Hernia repair; Patient HX: C/O n/v/d. TECHNIQUE: Imaging protocol: Computed tomography of the abdomen and pelvis without contrast. Radiation optimization: All CT scans at this facility use at least one of these dose optimization techniques: automated exposure control; mA and/or kV adjustment per patient size (includes targeted exams where dose is matched to clinical indication); or iterative reconstruction. COMPARISON: CT abdomen pelvis w con* [id number] 07/24/2021 1:38 PM RADIATION DOSE METRICS: Total DLP (mGy-cm): 174.46 FINDINGS: Liver: The liver is normal. Gallbladder and bile ducts: The gallbladder is absent. There is no intrahepatic or extrahepatic bile duct dilation. Pancreas: There is marked atrophy of the pancreas. Spleen: Splenic size is normal. There are scattered calcifications consistent with healed granulomas. Adrenal glands: The adrenal glands are unremarkable. Kidneys and ureters: The kidneys are unremarkable. No hydronephrosis or stones. No ureteral dilation. Stomach and bowel: The stomach is unremarkable. The small bowel is nondilated. There is mild sigmoid colonic diverticulosis without evidence of diverticulitis. Appendix: The appendix is absent. Intraperitoneal space: There is no free air or significant intraperitoneal free fluid. Vasculature: There is moderate aortic atherosclerotic disease. Lymph nodes: There is no lymphadenopathy in the retroperitoneum, mesentery, pelvis or inguinal regions. Urinary bladder: The urinary bladder is unremarkable. Reproductive: The uterus is absent. There is no adnexal mass or large cyst. Bones/joints: Bilateral hip prostheses are intact and well aligned. There is mild degenerative disease in the lumbar spine. The bony pelvis is intact. Soft tissues: The abdominal wall is intact. CT/CT abdomen pelvis wo con [id number] IMPRESSION: 1. No acute findings. 2. Incidental findings above.
[2022-04-24 19:20] LABS: Alanine Aminotransferase 23 U/L (0-33); Albumin Level 4.1 g/dL (3.5-5.2); Alkaline Phosphatase 129 U/L (35-105); Blood Urea Nitrogen 17 mg/dL (8-23); Calcium 9.8 mg/dL (8.5-10.5); Carbon Dioxide 28 mmol/L (22-29); Chloride 92 mmol/L (98-107); Globulin 2.7 g/dL (1.3-4.6); Glucose 156 mg/dL (65-115); Lipase 18 U/L (13-60); Osmolality Calculated 277 mOsm/kg (285-295); Sodium 131 mmol/L (136-145); Total Bilirubin 0.6 mg/dL (0.15-1.2); Total Protein 6.8 g/dL (6.6-8.7)
[2022-04-24 19:26] LABS: Anion Gap 15.1 (5-19); Aspartate Amino Transferase 21 U/L (0-32); Potassium 4.1 mmol/L (3.5-5.1)
[2022-04-24] MEDS: sodium chloride 0.9% 500 ML IV (19:26)
[2022-04-24] MEDS: diphenoxylate/atropine Tablet 2 TAB PO (20:06)
[2022-04-24 20:08] LABS: Add Urine Microscopic? YES; Bilirubin Urine Neg (Negative); Blood Urine 2+ (Negative); Glucose Urine UA Norm (Normal); Ketones Urine Negative (Negative); Leukocyte Esterase Urine 1+ (Negative); Nitrate Urine Negative (Negative); Protein Urine Neg (Negative); Urine Appearance Clear (CLEAR); Urine Color Yellow (Yellow); Urobilinogen Urine Norm (Negative); pH Urine 6 (5-7)
[2022-04-24] MEDS: ondansetron 2 mg/ML SDV 2 mL 4 MG IVP (20:08)
[2022-04-24 20:09] LABS: Add Urine Culture? No; RBC Urine 0-4 /hpf (0-2); Squamous Epithelial Cell Urine 0-4 /hpf (0-5)
[2022-04-24 21:22] VITALS: BP 119/75; PULSE 81; RESP 14; TEMP 37; O2SAT 96
== END 2022-04-24 21:25 | disposition home or self-care (01) ==
PROVIDERS: Emergency Provider Nurse Practitioner Family; PCP Family Medicine
DX: K52.9 Noninfective gastroenteritis and colitis, unspecified (principal); Z79.02 Long term (current) use of antithrombotics/antiplatelets; Z79.82 Long term (current) use of aspirin; Z79.4 Long term (current) use of insulin; I25.10 Atherosclerotic heart disease of native coronary artery without angina pectoris; I10 Essential (primary) hypertension; E78.5 Hyperlipidemia, unspecified
CPT/HCPCS: 74176; 80053; 81001; 83690; 85025; 96374; 99285; J2405; J7040

== ENCOUNTER 2022-05-06 01:00 | Outpatient (CLI) | payer MEDICARE, OTHER, SELFPAY | END 2022-05-06 23:00 | disposition home or self-care (01) | LOC: RAD 05-14 20:36 | PROVIDERS: PCP Family Medicine; Visit Provider Family Medicine | DX: Z12.31 Encounter for screening mammogram for malignant neoplasm of breast (principal); E11.649 Type 2 diabetes mellitus with hypoglycemia without coma; E27.1 Primary adrenocortical insufficiency; R61 Generalized hyperhidrosis; Z79.4 Long term (current) use of insulin | CPT/HCPCS: 99214 ==

== ENCOUNTER 2022-05-13 15:02 | Outpatient (CLI) | payer MEDICARE, OTHER, SELFPAY ==
--- NOTE | 2022-05-13 15:10 | MM_ITS ---
WS: [id number] VIEWS: MLO and CC views both breasts. 3D digital tomosynthesis is also included in this exam. Comparison made with prior exam of 09/24/2014, 09/27/2015, 10/02/2016, 11/02/2017, 11/15/2018, 12/26/2019,. Findings: There was no sign of mass, architectural distortion or suspicious calcification in either breast. Fa tty MM/[place] [id number] Impression: BI-RADS: 2-Benign FOLLOW-UP: 1 Year Follow-up This mammogram was also analyzed by the Computer Aided Detection System [employer] Equipment [employer]r.
== END 2022-05-13 15:03 | disposition home or self-care (01) ==
LOC: RAD 15:03
PROVIDERS: PCP Family Medicine; Visit Provider Family Medicine
DX: Z12.31 Encounter for screening mammogram for malignant neoplasm of breast (principal)
CPT/HCPCS: 77063; 77067

== ENCOUNTER 2022-05-14 01:17 | Emergency (ER) | payer MEDICARE, OTHER, SELFPAY ==
[2022-05-14 01:18] VITALS: BMI 36.6
--- NOTE | 2022-05-14 01:24 | ED_ITS ---
HPI - Chest Pain General: Chief Complaint: Chest Pain Stated Complaint: chest pain/sob Time Seen by Provider: 05/14/22 01:18 Source: patient and EMS Mode of arrival: EMS Limitations: no limitations History of Present Illness: 77-year-old female states she been having chest pain since in the evening. States she had a sharp pain across to her chest that she rates an 8 out of 10 patient's called EMS tonight because her pain did worsen throughout the night. She does have a history of heart disease she had a cath in October that showed no abnormality she denies any vomiting diaphoresis or nausea at this time. Associated symptoms: Deny abdominal pain, dyspnea, fever(s), nausea or vomiting Review of Systems Const: Denies: fever(s), chills, body aches or change in appetite Eyes: Denies: blurry vision or eye discomfort ENMT: Denies: throat pain or dental pain Card: Reports: chest pain Resp: Denies: dyspnea GI: Denies: abdominal pain, nausea, vomiting or diarrhea : Denies: dysuria Musc: Denies: neck pain or back pain Skin/Breast: Denies: rash Neuro: Denies: headache(s) Psych: Denies: depression Gael/Lymph: Denies: easy bruising All/Imm: Denies: urticaria PFSH ED PFSH: Medical History Acute cystitis Anemia, chronic disease 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 Left axis deviation. Normal MS and QRS duration. Intervertebral disc disorder with radiculopathy of lumbosacral region Psychiatric care Psychiatric care Recurrent UTI Status post left heart catheterization Surgical History History of colonoscopy (~2018) History of coronary artery stent placement History of right knee surgery S/P appendectomy S/P hernia repair S/P hip replacement S/P hysterectomy Family History Family/Other Diabetes Other Cancer Social History Smoking and tobacco status: never smoked Alcohol intake: never Household members: spouse Marital status: Current occupational status: retired History of recent travel: No Physical Exam Const: COMMON NORMALS: no acute distress, patient oriented x3 and healthy appearing HENMT: COMMON NORMALS: normocephalic and atraumatic HEAD & SCALP: normocephalic and atraumatic Eye: COMMON NORMALS: Equal, round and reactive pupils present and EOMs intact bilaterally PUPIL: Yes Equal, round and reactive pupils present Neck/C-Spine: COMMON NORMALS: full ROM and supple Chest: COMMONS NORMALS: normal inspection of the chest and normal palpation of entire chest wall Resp: COMMON NORMALS: normal respiratory effort, No retractions, No use of accessory muscles and clear to auscultation bilaterally AUSCULTATION: clear to auscultation bilaterally Cardio: COMMON NORMALS: regular rate, regular rhythm and No murmurs present (Cardio) RATE: regular rate RHYTHM: regular rhythm GI: COMMON NORMALS: Normal to inspection, nondistended, normoactive bowel sounds present, Soft to palpation, non-tender and no masses PALPATION: Yes Soft to palpation Extremity: COMMON NORMALS: normal to inspection and full ROM Neuro: COMMON NORMALS: patient oriented x3, moves all extremities and no focal motor deficits Psych: COMMON NORMALS: mental status grossly normal, Normal thought process present and cooperative THOUGHT PROCESS: Normal thought process present Skin: COMMON NORMALS: no rashes or lesions noted and no wounds GENERAL SKIN EXAM: no rashes or lesions noted Course Vital Signs: Vital signs: Vital Signs Pulse Rate 76 05/14/22 02:53 Respiratory Rate 22 H 05/14/22 02:53 Blood Pressure 152/58 05/14/22 02:53 Pulse Oximetry 98 05/14/22 02:53 MDM - Chest Pain Medical Decision Making Patient presents here with chest pains atypical in nature patient's pain-free currently troponins here are normal she did have a cardiac cath in October that showed no acute findings she has an appoint with Dr. Cai next week she is to follow-up as scheduled return if worsening. Lab Data 05/14/22 02:05 05/14/22 01:00 Radiology Impressions Chest X-Ray 05/14/22 01:39 IMPRESSION: No acute findings. Laboratory Results WBC 5.6 10^3/uL (4.0-10.0) 05/14/22 02:05 Corrected WBC Cancelled 05/14/22 01:00 RBC 3.85 10^6/uL (4.1-5.3) L 05/14/22 02:05 Hgb 11.9 g/dL (11.5-15.3) 05/14/22 02:05 Hct 35.2 % (37.0-47.0) L 05/14/22 02:05 MCV 91.4 fl (81-99) 05/14/22 02:05 MCH 30.9 pg (28.0-34.0) 05/14/22 02:05 MCHC 33.8 g/dL (30.0-36.0) 05/14/22 02:05 RDW 12.3 % (12.1-15.1) 05/14/22 02:05 Plt Count 204 10^3/cmm (130-400) 05/14/22 02:05 MPV 9.7 fL (7.4-10.4) 05/14/22 02:05 Gran % Cancelled 05/14/22 01:00 Neut % (Auto) 54.8 % 05/14/22 02:05 Lymph % (Auto) 29.3 % 05/14/22 02:05 Meagher % (Auto) 12.4 % 05/14/22 02:05 Eos % (Auto) 2.7 % 05/14/22 02:05 Baso % (Auto) 0.4 % 05/14/22 02:05 Neut # (Auto) 3.05 10^3/uL (1.8-7.7) 05/14/22 02:05 Lymph # (Auto) 1.6 10^3/uL (0.8-4.8) 05/14/22 02:05 Meagher # (Auto) 0.7 10^3/uL (0.2-0.9) 05/14/22 02:05 Eos # (Auto) 0.2 10^3/uL (0.0-0.8) 05/14/22 02:05 Baso # (Auto) 0.0 10^3/uL (0.0-0.1) 05/14/22 02:05 Absolute Gran (auto) Cancelled 05/14/22 01:00 Nucleated RBC % (auto) 0 % 05/14/22 02:05 Nucleated RBCs # 0.0 /100WBC 05/14/22 02:05 Sodium 129 mmol/L (136-145) L 05/14/22 01:00 Potassium 4.0 mmol/L (3.5-5.1) 05/14/22 01:00 Chloride 89 mmol/L (98-107) L 05/14/22 01:00 Carbon Dioxide 26 mmol/L (22-29) 05/14/22 01:00 Anion Gap 18.0 (5-19) 05/14/22 01:00 BUN 15 mg/dL (8-23) 05/14/22 01:00 Creatinine 0.6 mg/dL (0.5-0.9) 05/14/22 01:00 GFR Calculation Not Reportable 05/14/22 01:00 Glucose 186 mg/dL (65-115) H 05/14/22 01:00 Calculated Osmolality 274 mOsm/kg (285-295) L 05/14/22 01:00 Calcium 10.4 mg/dL (8.5-10.5) 05/14/22 01:00 Total Bilirubin 0.3 mg/dL (0.15-1.2) 05/14/22 01:00 AST 23 U/L (0-32) 05/14/22 01:00 ALT 26 U/L (0-33) 05/14/22 01:00 Alkaline Phosphatase 157 U/L (35-105) H 05/14/22 01:00 Troponin T Baseline 13 ng/L (0-10) H 05/14/22 01:00 Troponin T 120 Minute 13.30 ng/L (0-10) H 05/14/22 03:32 Delta Troponin T 0.30 ABS# (0-10) 05/14/22 03:32 Total Protein 7.6 g/dL (6.6-8.7) 05/14/22 01:00 Albumin 4.5 g/dL (3.5-5.2) 05/14/22 01:00 Globulin 3.1 g/dL (1.3-4.6) 05/14/22 01:00 EKG Data EKG 1: I personally reviewed and interpreted this EKG as follows: EKG interpretation date: 05/14/22 EKG interpretation time: 01:25 Interpretation: nsr hr [address] or t wave abnormalities qrs 102 qtc 407 Discharge Plan Discharge Patient Disposition: Home Clinical Impression: Chest pain Qualifiers: Chest pain type: unspecified Qualified Code(s): R07.9 - Chest pain, unspecified Condition: Stable Prescriptions: No Action dicyclomine 10 mg capsule 10 mg PO QID lactulose 10 gram/15 mL solution 15 ml PO DAILY@12 polyethylene glycol 3350 [Miralax] 17 gram/dose powder 17 g PO DAILY chlorthalidone 25 mg tablet 25 mg PO DAILY Qty: 90 2RF isosorbide mononitrate 120 mg tablet extended release 24 hr 120 mg PO DAILY Qty: 90 3RF cholecalciferol (vitamin D3) 1,000 unit capsule 1,000 unit PO QPM cranberry 500 mg capsule 500 mg PO QPM Lactobacillus acidophilus [Acidophilus] Capsule 1 cap PO QAM ferrous sulfate 325 mg (65 mg iron) tablet 325 mg PO DAILY@12 magnesium oxide 400 mg (241.3 mg magnesium) tablet 500 mg PO DAILY@12 nitroglycerin 0.4 mg tablet, sublingual 0.4 mg sublingual Q5M PRN (Reason: chest pain) 30 Days Qty: 30 3RF Rx Instructions: until response; do not exceed 3 doses per episode citalopram 40 mg tablet 40 mg PO QAM Qty: 30 11RF prednisone 5 mg tablet 10 mg PO DAILY Qty: 180 3RF Rx Instructions: Take two tablets by mouth daily. insulin lispro [Humalog KwikPen Insulin] 100 unit/mL insulin pen 10 unit SUBCUT TID Qty: 30 3RF Rx Instructions: Inject 10 units subcut three times a day with meals. ranolazine 500 mg tablet extended release 12 hr 500 mg PO BID Qty: 180 3RF furosemide 20 mg tablet 40 mg PO DAILY potassium chloride 8 mEq capsule, extended release 16 meq PO DAILY (DME) FreeStyle Tor 2 Sensor Kit See Rx Instructions .MEDSUPPLY Qty: 3 3RF Rx Instructions: As directed (DME) FreeStyle Tor 2 [place] Misc See Rx Instructions .Route Qty: 1 0RF Rx Instructions: As directed hydrocortisone 10 mg tablet 10 mg PO QID Qty: 36 0RF (DME) blood sugar diagnostic Strip See Rx Instructions .Route Qty: 400 3RF Rx Instructions: Check blood sugar 4 times a day. (DME) lancets [Comfort EZ Lancets] 21 gauge misc See Rx Instructions .Route Qty: 400 3RF Rx Instructions: As directed ([facility]) Easymax 15 test strips Strip See Rx Instructions .Route Qty: 400 3RF Rx Instructions: Check BS 4 times a day. quetiapine [Seroquel] 25 mg tablet 25 mg PO DAILY Qty: 30 5RF Rx Instructions: Take with 50mg dose for total daily dose of 75mg. clopidogrel 75 mg tablet 75 mg PO QPM Qty: 90 3RF (DME) Dexcom G6 Recessing Machine Operator Misc See Rx Instructions .Route Qty: 1 0RF Rx Instructions: Check BS 4-6 times a day. (DME) Dexcom G6 Sensor Device See Rx Instructions .Route Qty: 9 3RF Rx Instructions: Change every 10 days. (DME) Dexcom G6 Transmitter Device See Rx Instructions .Route Qty: 3 3RF Rx Instructions: Change every 90 days ([facility]) pen needle, diabetic [BD Ultra-Fine Mini Pen Needle] 31 gauge x 3/16 needle See Rx Instructions .ROUTE .COMPLEX Qty: 400 3RF Dose Instruction: USE DIRECTED Rx Instructions: QID atorvastatin 40 mg tablet 40 mg PO BEDTIME aspirin [Ecotrin Low Strength] 81 mg tablet,delayed release (DR/EC) 81 mg PO DAILY Qty: 30 3RF valsartan 320 mg tablet 320 mg PO DAILY Qty: 90 3RF albuterol sulfate 90 mcg/actuation HFA aerosol inhaler 2 puff INHALATION QID PRN (Reason: Shortness Of Breath) Tresiba FlexTouch U-200 200 unit/mL (3 mL) insulin pen 34 unit SUBCUT QPM hydrocodone-acetaminophen 7.5-325 mg tablet 1 tab PO Q6H PRN (Reason: Pain) vitamin E 1,000 unit Capsule 1,000 unit PO DAILY ascorbic acid (vitamin C) [Vitamin C] 500 mg Tablet,Chewable 500 mg PO DAILY@12 quetiapine [Seroquel] 50 mg tablet 50 mg PO BEDTIME esomeprazole magnesium 40 mg capsule,delayed release(DR/EC) 40 mg PO BID Qty: 60 0RF ondansetron 4 mg tablet,disintegrating 4 mg PO Q8H PRN (Reason: nausea and vomiting) Qty: 7 0RF Discharge Orders: Discharge ED (Routine); Ordered 05/14/22 Ordered By: Enrico Camejo Referrals: Arabella Orta MD [Primary Care Provider] - 1-3 days Discharge Diet: Advance as tolerated Discharge Activity: Resume usual activity Patient Instructions: Chest Pain (ED) Coding Level of Care Code ED Denial Resolution Specialist for Chg Fwd Exam Comprehensive
--- NOTE | 2022-05-14 01:25 | ECG_ITS ---
[facility] Test Date: 2022-05-14 Pat Name: Brandi Berg Department: Room: Gender: Female Seed Analyst: : 1945 Requested By: Enrico Camejo Order Number: [id number] Gamal MD: Jose Sumner M.D. Measurements Intervals [place] Rate: 79 P: 46 [place]: 167 QRS: -27 QRSD: 102 T: 58 QT: 373 QTc: 428 Interpretive Statements SINUS RHYTHM BORDERLINE LEFT AXIS DEVIATION [QRS AXIS < -20] MODERATE VOLTAGE CRITERIA FOR LVH, CONSIDER NORMAL VARIANT [MEETS CRITERIA IN ONE OF: R(aVL), S(V1), R(V5), R(V5/V6)+S(V1)] Compared to ECG 03/03/2022 15:20:15 T-wave abnormality no longer present Electronically Signed On 05-14-2022 12:57:04 HEAD RESIDENT by Jose Sumner M.D. [id number] f
[2022-05-14] MEDS: ondansetron 2 mg/ML SDV 2 mL 4 MG IVP (01:33)
[2022-05-14] MEDS: HYDROmorphone 1 mg/mL INJ 1 mL 0.5 MG IVP (01:34)
--- NOTE | 2022-05-14 01:39 | XRR_ITS ---
PROCEDURE INFORMATION: Exam: XR Chest Exam date and time: 05/14/2022 1:42 AM Age: 77 years old Clinical indication: Shortness of breath; Chest pressure; Prior surgery; Surgery type: Gb; Patient HX: C/O chest pain with SOB. ; Additional info: Cp TECHNIQUE: Imaging protocol: Radiologic exam of the chest. Views: 1 view. COMPARISON: CR XR chest 1V portable [id number] 03/03/2022 1:23 PM FINDINGS: Tubes, catheters and devices: EKG monitoring leads overlie the thoracic wall. Lungs: There is no evidence of focal pulmonary consolidation. Pleural spaces: No pleural effusion or pneumothorax. Heart/Mediastinum: The heart and mediastinum are normal in size. Bones/joints: Unremarkable. XR/XR chest 1V portable [id number] IMPRESSION: No acute findings.
[2022-05-14 02:04] LABS: Alanine Aminotransferase 26 U/L (0-33); Albumin Level 4.5 g/dL (3.5-5.2); Alkaline Phosphatase 157 U/L (35-105); Aspartate Amino Transferase 23 U/L (0-32); Blood Urea Nitrogen 15 mg/dL (8-23); Calcium 10.4 mg/dL (8.5-10.5); Carbon Dioxide 26 mmol/L (22-29); Chloride 89 mmol/L (98-107); Globulin 3.1 g/dL (1.3-4.6); Glucose 186 mg/dL (65-115); Osmolality Calculated 274 mOsm/kg (285-295); Sodium 129 mmol/L (136-145); Total Bilirubin 0.3 mg/dL (0.15-1.2); Total Protein 7.6 g/dL (6.6-8.7)
[2022-05-14 02:05] LABS: Troponin(5th) Baseline 13 ng/L (0-10)
[2022-05-14 02:16] LABS: Basophils % 0.4 %; Eosinophils # 0.2 10^3/uL (0.0-0.8); Eosinophils % 2.7 %; Hematocrit 35.2 % (37.0-47.0); Hemoglobin 11.9 g/dL (11.5-15.3); Lymphocytes # 1.6 10^3/uL (0.8-4.8); Lymphocytes % 29.3 %; Mean Corpuscular HGB Conc 33.8 g/dL (30.0-36.0); Mean Corpuscular Hemoglobin 30.9 pg (28.0-34.0); Mean Corpuscular Volume 91.4 fl (81-99); Mean Platelet Volume 9.7 fL (7.4-10.4); Monocytes # 0.7 10^3/uL (0.2-0.9); Monocytes % 12.4 %; Neutrophils # 3.05 10^3/uL (1.8-7.7); Neutrophils % 54.8 %; Nucleated Red Blood Cells % 0 %; Platelet Count 204 10^3/cmm (130-400); Red Blood Count 3.85 10^6/uL (4.1-5.3); Red Cell Distribution Width 12.3 % (12.1-15.1); White Blood Count 5.6 10^3/uL (4.0-10.0)
[2022-05-14 02:53] VITALS: BP 152/58; PULSE 76; RESP 22; O2SAT 98
[2022-05-14] MEDS: HYDROcodone-acetaminophen 5-325 mg Tablet 1 TAB PO (03:02)
== END 2022-05-14 04:37 | disposition home or self-care (01) ==
PROVIDERS: Emergency Provider Emergency Medicine; PCP Family Medicine
DX: R07.9 Chest pain, unspecified (principal); Z79.4 Long term (current) use of insulin; Z79.02 Long term (current) use of antithrombotics/antiplatelets; Z79.82 Long term (current) use of aspirin; I25.10 Atherosclerotic heart disease of native coronary artery without angina pectoris; I10 Essential (primary) hypertension; E78.5 Hyperlipidemia, unspecified
CPT/HCPCS: 71045; 80053; 84484; 85025; 93005; 96374; 96375; 99285; J1170; J2405

== ENCOUNTER → 2022-05-19 14:57 | Outpatient (BNVA) | payer MEDICARE, OTHER, SELFPAY | PROVIDERS: PCP Family Medicine; Visit Provider Internal Medicine | DX: I25.10 Atherosclerotic heart disease of native coronary artery without angina pectoris (principal); I10 Essential (primary) hypertension; E78.5 Hyperlipidemia, unspecified; D63.8 Anemia in other chronic diseases classified elsewhere; E11.65 Type 2 diabetes mellitus with hyperglycemia; M79.605 Pain in left leg; E16.2 Hypoglycemia, unspecified; K11.7 Disturbances of salivary secretion; E86.0 Dehydration; Z79.4 Long term (current) use of insulin | CPT/HCPCS: 36415; 80048; 83880; 99214 ==

== ENCOUNTER 2022-05-26 22:33 | Emergency (ER) | payer MEDICARE, OTHER, SELFPAY ==
--- NOTE | 2022-05-26 22:40 | XRR_ITS ---
PROCEDURE INFORMATION: Exam: XR Chest Exam date and time: 05/27/2022 12:37 AM Age: 77 years old Clinical indication: Shortness of breath; Patient HX: C/O general weakness. ; Additional info: SOB TECHNIQUE: Imaging protocol: Radiologic exam of the chest. Views: 1 view. COMPARISON: CR (CHEST, ) 05/14/2022 1:42 AM FINDINGS: Lungs: Unremarkable. No consolidation. Stable linear scarring at the left lung base. Pleural spaces: Unremarkable. No pleural effusion. No pneumothorax. Heart/Mediastinum: Unremarkable. No cardiomegaly. Bones/joints: There are degenerative changes throughout the spine. XR/XR chest 1V portable [id number] IMPRESSION: No acute cardiopulmonary abnormality.
[2022-05-26 22:43] VITALS: BP 153/66; PULSE 84; RESP 20; TEMP 36.6; O2SAT 96
--- NOTE | 2022-05-26 23:04 | ECG_ITS ---
[facility] Test Date: 2022-05-26 Pat Name: Brandi Berg Department: Room: Gender: Female Commercial Administrator: : 1945 Requested By: Enrico Camejo Order Number: [id number] Gamal MD: Jose Sumner M.D. Measurements Intervals [place] Rate: 73 P: 39 CT: 153 QRS: -36 QRSD: 94 T: 67 QT: 370 QTc: 408 Interpretive Statements SINUS RHYTHM LEFT AXIS DEVIATION [QRS AXIS < -30] MODERATE VOLTAGE CRITERIA FOR LVH, CONSIDER NORMAL VARIANT [MEETS CRITERIA IN ONE OF: R(aVL), S(V1), R(V5), R(V5/V6)+S(V1)] NONSPECIFIC T-WAVE ABNORMALITY Compared to ECG 05/14/2022 01:25:33 T-wave abnormality now present Electronically Signed On 05-27-2022 10:27:56 CLASS B DRIVER by Jose Sumner M.D. [id number]
[2022-05-26 23:23] LABS: Add Urine Microscopic? NO; Charge for UA Resulting for Rev
[2022-05-26 23:27] LABS: Bilirubin Urine Neg (Negative); Blood Urine Neg (Negative); Glucose Urine UA Norm (Normal); Ketones Urine Negative (Negative); Leukocyte Esterase Urine Negative (Negative); Nitrate Urine Negative (Negative); Protein Urine Neg (Negative); Specific Gravity, Urine 1.015 (1.005-1.030); Urine Appearance Clear (CLEAR); Urine Color Yellow (Yellow); Urobilinogen Urine Norm (Negative); pH Urine 7 (5-7)
--- NOTE | 2022-05-27 00:30 | ED_ITS ---
HPI - General Adult General: Chief complaint: General Medical Stated complaint: Weakness\Notting off to sleep Time Seen by Provider: 05/27/22 00:07 Source: patient Mode of arrival: ambulatory Limitations: no limitations History of Present Illness: 77-year-old female who states that she has been feeling weak all day and very tired she states she has a history of hyponatremia is concerned that her sodium is low. She denies any pain she denies any fever she denies any vomiting or diarrhea states she just feels more tired than typical. Associated symptoms: Reports malaise; Deny chest pain, dyspnea, headache(s), nausea, rash or vomiting Review of Systems Const: Reports: fatigue and malaise Eyes: Denies: blurry vision or eye discomfort ENMT: Denies: throat pain or dental pain Card: Denies: chest pain Resp: Denies: dyspnea GI: Denies: abdominal pain, nausea, vomiting or diarrhea : Denies: dysuria Musc: Denies: neck pain or back pain Skin/Breast: Denies: rash Neuro: Denies: headache(s) Psych: Denies: depression Gael/Lymph: Denies: easy bruising All/Imm: Denies: urticaria PFSH ED PFSH: Medical History Acute cystitis Anemia, chronic disease 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 Left axis deviation. Normal NC and QRS duration. Intervertebral disc disorder with radiculopathy of lumbosacral region Psychiatric care Psychiatric care Recurrent UTI Status post left heart catheterization Surgical History History of colonoscopy (~2018) History of coronary artery stent placement History of right knee surgery S/P appendectomy S/P hernia repair S/P hip replacement S/P hysterectomy Family History Family/Other Diabetes Other Cancer Social History Smoking and tobacco status: never smoked Alcohol intake: never Household members: spouse Marital status: Current occupational status: retired History of recent travel: No Physical Exam Const: COMMON NORMALS: no acute distress, patient oriented x3 and healthy appearing HENMT: COMMON NORMALS: normocephalic and atraumatic HEAD & SCALP: normocephalic and atraumatic Eye: COMMON NORMALS: Equal, round and reactive pupils present and EOMs intact bilaterally PUPIL: Yes Equal, round and reactive pupils present Neck/C-Spine: COMMON NORMALS: full ROM and supple Chest: COMMONS NORMALS: normal inspection of the chest and normal palpation of entire chest wall Resp: COMMON NORMALS: normal respiratory effort, No retractions, No use of accessory muscles and clear to auscultation bilaterally AUSCULTATION: clear to auscultation bilaterally Cardio: COMMON NORMALS: regular rate, regular rhythm and No murmurs present (Cardio) RATE: regular rate RHYTHM: regular rhythm GI: COMMON NORMALS: Normal to inspection, nondistended, normoactive bowel sounds present, Soft to palpation, non-tender and no masses PALPATION: Yes Soft to palpation Extremity: COMMON NORMALS: normal to inspection and full ROM Neuro: COMMON NORMALS: patient oriented x3, moves all extremities and no focal motor deficits Psych: COMMON NORMALS: mental status grossly normal, Normal thought process present and cooperative THOUGHT PROCESS: Normal thought process present Skin: COMMON NORMALS: no rashes or lesions noted and no wounds GENERAL SKIN EXAM: no rashes or lesions noted Course Vital Signs: Vital signs: Vital Signs Temperature 97.8 F 05/26/22 22:43 Pulse Rate 84 05/26/22 22:43 Respiratory Rate 20 H 05/26/22 22:43 Blood Pressure 153/66 05/26/22 22:43 Pulse Oximetry 96 05/26/22 22:43 Oxygen Delivery Me thod 05/26/22 22:43 MDM - General Adult Medical Decision Making Patient presents here with fatigue worried about hyponatremia her sodium is actually improved from her last draw she feels better here after IV fluids blood work is otherwise normal she is stable for discharge she is to follow-up with PCP and return if worsening. Lab Data 05/27/22 01:19 05/27/22 01:19 Laboratory Results WBC 7.2 10^3/uL (4.0-10.0) 05/27/22 01:19 RBC 4.29 10^6/uL (4.1-5.3) 05/27/22 01:19 Hgb 13.3 g/dL (11.5-15.3) 05/27/22 01:19 Hct 39.9 % (37.0-47.0) 05/27/22 01:19 MCV 93.0 fl (81-99) 05/27/22 01:19 MCH 31.0 pg (28.0-34.0) 05/27/22 01:19 MCHC 33.3 g/dL (30.0-36.0) 05/27/22 01:19 RDW 12.5 % (12.1-15.1) 05/27/22 01:19 Plt Count 229 10^3/cmm (130-400) 05/27/22 01:19 MPV 9.8 fL (7.4-10.4) 05/27/22 01:19 Neut % (Auto) 61.2 % 05/27/22 01:19 Lymph % (Auto) 25.8 % 05/27/22 01:19 [place] % (Auto) 10.1 % 05/27/22 01:19 Eos % (Auto) 1.9 % 05/27/22 01:19 Baso % (Auto) 0.6 % 05/27/22 01:19 Neut # (Auto) 4.43 10^3/uL (1.8-7.7) 05/27/22 01:19 Lymph # (Auto) 1.9 10^3/uL (0.8-4.8) 05/27/22 01:19 [place] # (Auto) 0.7 10^3/uL (0.2-0.9) 05/27/22 01:19 Eos # (Auto) 0.1 10^3/uL (0.0-0.8) 05/27/22 01:19 Baso # (Auto) 0.0 10^3/uL (0.0-0.1) 05/27/22 01:19 Nucleated RBC % (auto) 0 % 05/27/22 01:19 Nucleated RBCs # 0.0 /100WBC 05/27/22 01:19 Sodium 130 mmol/L (136-145) L 05/27/22 01:19 Potassium 4.0 mmol/L (3.5-5.1) 05/27/22 01:19 Chloride 91 mmol/L (98-107) L 05/27/22 01:19 Carbon Dioxide 26 mmol/L (22-29) 05/27/22 01:19 Anion Gap 17.0 (5-19) 05/27/22 01:19 BUN 16 mg/dL (8-23) 05/27/22 01:19 Creatinine 0.7 mg/dL (0.5-0.9) 05/27/22 01:19 GFR Calculation Not Reportable 05/27/22 01:19 Glucose 188 mg/dL (65-115) H 05/27/22 01:19 Calculated Osmolality 276 mOsm/kg (285-295) L 05/27/22 01:19 Calcium 9.8 mg/dL (8.5-10.5) 05/27/22 01:19 Total Bilirubin 0.2 mg/dL (0.15-1.2) 05/27/22 01:19 AST 16 U/L (0-32) 05/27/22 01:19 ALT 20 U/L (0-33) 05/27/22 01:19 Alkaline Phosphatase 149 U/L (35-105) H 05/27/22 01:19 Total Protein 7.2 g/dL (6.6-8.7) 05/27/22 01:19 Albumin 4.1 g/dL (3.5-5.2) 05/27/22 01:19 Globulin 3.1 g/dL (1.3-4.6) 05/27/22 01:19 TSH 0.68 uIU/mL (0.27-4.20) 05/27/22 01:19 Urine Color Yellow (Yellow) 05/26/22 23:12 Urine Appearance Clear (CLEAR) 05/26/22 23:12 Urine pH 7 (5-7) 05/26/22 23:12 Ur Specific [place] 1.015 (1.005-1.030) 05/26/22 23:12 Urine Protein Neg (Negative) 05/26/22 23:12 Urine Glucose (UA) Norm (Normal) 05/26/22 23:12 Urine Ketones Negative (Negative) 05/26/22 23:12 Urine Blood Neg (Negative) 05/26/22 23:12 Urine Nitrate Negative (Negative) 05/26/22 23:12 Urine Bilirubin Neg (Negative) 05/26/22 23:12 Urine Urobilinogen Norm mg/dL (Negative) 05/26/22 23:12 Ur Leukocyte Esterase Negative (Negative) 05/26/22 23:12 EKG Data EKG 1: I personally reviewed and interpreted this EKG as follows: EKG interpretation date: 05/26/22 EKG interpretation time: 23:41 Interpretation: nsr hr [address] or t wave abnormalities qrs 89 qtc 416 Discharge Plan Discharge Patient Disposition: Home Clinical Impression: Hyponatremia Condition: Stable Prescriptions: No Action dicyclomine 10 mg capsule 10 mg PO QID lactulose 10 gram/15 mL solution 15 ml PO DAILY@12 polyethylene glycol 3350 [Miralax] 17 gram/dose powder 17 g PO DAILY chlorthalidone 25 mg tablet 25 mg PO DAILY Qty: 90 2RF isosorbide mononitrate 120 mg tablet extended release 24 hr 120 mg PO DAILY Qty: 90 3RF cholecalciferol (vitamin D3) 1,000 unit capsule 1,000 unit PO QPM cranberry 500 mg capsule 500 mg PO QPM Lactobacillus acidophilus [Acidophilus] Capsule 1 cap PO QAM ferrous sulfate 325 mg (65 mg iron) tablet 325 mg PO DAILY@12 magnesium oxide 400 mg (241.3 mg magnesium) tablet 500 mg PO DAILY@12 nitroglycerin 0.4 mg tablet, sublingual 0.4 mg sublingual Q5M PRN (Reason: chest pain) 30 Days Qty: 30 3RF Rx Instructions: until response; do not exceed 3 doses per episode citalopram 40 mg tablet 40 mg PO QAM Qty: 30 11RF insulin lispro [Humalog KwikPen Insulin] 100 unit/mL insulin pen 10 unit SUBCUT TID Qty: 30 3RF Rx Instructions: Inject 10 units subcut three times a day with meals. ranolazine 500 mg tablet extended release 12 hr 500 mg PO BID Qty: 180 3RF furosemide 20 mg tablet 60 mg PO DAILY potassium chloride 8 mEq capsule, extended release 24 meq PO DAILY (DME) FreeStyle Tor 2 Sensor Kit See Rx Instructions .MEDSUPPLY Qty: 3 3RF Rx Instructions: As directed (DME) FreeStyle Tor 2 [place] Misc See Rx Instructions .Route Qty: 1 0RF Rx Instructions: As directed esomeprazole magnesium 40 mg capsule,delayed release(DR/EC) 40 mg PO DAILY hydrocortisone 10 mg tablet 10 mg PO QID Qty: 36 0RF (DME) blood sugar diagnostic Strip See Rx Instructions .Route Qty: 400 3RF Rx Instructions: Check blood sugar 4 times a day. (DME) lancets [Comfort EZ Lancets] 21 gauge misc See Rx Instructions .Route Qty: 400 3RF Rx Instructions: As directed (DME) Easymax 15 test strips Strip See Rx Instructions .Route Qty: 400 3RF Rx Instructions: Check BS 4 times a day. clopidogrel 75 mg tablet 75 mg PO QPM Qty: 90 3RF (DME) Dexcom G6 Cementer Helper Misc See Rx Instructions .Route Qty: 1 0RF Rx Instructions: Check BS 4-6 times a day. (DME) Dexcom G6 Sensor Device See Rx Instructions .Route Qty: 9 3RF Rx Instructions: Change every 10 days. (DME) Dexcom G6 Transmitter Device See Rx Instructions .Route Qty: 3 3RF Rx Instructions: Change every 90 days (DME) pen needle, diabetic [BD Ultra-Fine Mini Pen Needle] 31 gauge x 3/16 needle See Rx Instructions .ROUTE .COMPLEX Qty: 400 3RF Dose Instruction: USE DIRECTED Rx Instructions: QID valsartan 320 mg tablet 320 mg PO DAILY Qty: 90 3RF atorvastatin 40 mg tablet 40 mg PO BEDTIME albuterol sulfate 90 mcg/actuation HFA aerosol inhaler 2 puff INHALATION QID PRN (Reason: Shortness Of Breath) Tresiba FlexTouch U-200 200 unit/mL (3 mL) insulin pen 34 unit SUBCUT QPM hydrocodone-acetaminophen 7.5-325 mg tablet 1 tab PO Q6H PRN (Reason: Pain) vitamin E 1,000 unit Capsule 1,000 unit PO DAILY ascorbic acid (vitamin C) [Vitamin C] 500 mg Tablet,Chewable 500 mg PO DAILY@12 quetiapine [Seroquel] 50 mg tablet 50 mg PO BEDTIME ondansetron 4 mg tablet,disintegrating 4 mg PO Q8H PRN (Reason: nausea and vomiting) Qty: 7 0RF Discharge Orders: Discharge ED (Routine); Ordered 05/27/22 Ordered By: Korby Nell Referrals: Arabella Orta MD [Primary Care Provider] - 1-3 days Discharge Diet: Advance as tolerated Discharge Activity: Resume usual activity Patient Instructions: Weakness (ED) Coding Level of Care Code ED Loom Winder Tender for Chg Fwd Exam Comprehensive
[2022-05-27 00:55] VITALS: BP 156/64; PULSE 71; RESP 18; O2SAT 95
[2022-05-27] MEDS: sodium chloride 0.9% 1,000 ML 999 ML IV (01:00)
[2022-05-27 01:30] LABS: Basophils % 0.6 %; Eosinophils # 0.1 10^3/uL (0.0-0.8); Eosinophils % 1.9 %; Hematocrit 39.9 % (37.0-47.0); Hemoglobin 13.3 g/dL (11.5-15.3); Lymphocytes # 1.9 10^3/uL (0.8-4.8); Lymphocytes % 25.8 %; Mean Corpuscular HGB Conc 33.3 g/dL (30.0-36.0); Mean Platelet Volume 9.8 fL (7.4-10.4); Monocytes # 0.7 10^3/uL (0.2-0.9); Monocytes % 10.1 %; Neutrophils # 4.43 10^3/uL (1.8-7.7); Neutrophils % 61.2 %; Nucleated Red Blood Cells % 0 %; Platelet Count 229 10^3/cmm (130-400); Red Blood Count 4.29 10^6/uL (4.1-5.3); Red Cell Distribution Width 12.5 % (12.1-15.1); White Blood Count 7.2 10^3/uL (4.0-10.0)
[2022-05-27 02:00] VITALS: BP 163/66; PULSE 70; RESP 18; O2SAT 95
[2022-05-27 02:05] LABS: Alanine Aminotransferase 20 U/L (0-33); Albumin Level 4.1 g/dL (3.5-5.2); Alkaline Phosphatase 149 U/L (35-105); Aspartate Amino Transferase 16 U/L (0-32); Blood Urea Nitrogen 16 mg/dL (8-23); Calcium 9.8 mg/dL (8.5-10.5); Carbon Dioxide 26 mmol/L (22-29); Chloride 91 mmol/L (98-107); Globulin 3.1 g/dL (1.3-4.6); Glucose 188 mg/dL (65-115); Osmolality Calculated 276 mOsm/kg (285-295); Sodium 130 mmol/L (136-145); Thyroid Stimulating Hormone 0.68 uIU/mL (0.27-4.20); Total Bilirubin 0.2 mg/dL (0.15-1.2); Total Protein 7.2 g/dL (6.6-8.7)
[2022-05-27 03:02] VITALS: BP 164/67; PULSE 71; RESP 18; O2SAT 95
== END 2022-05-27 03:03 | disposition home or self-care (01) ==
PROVIDERS: Emergency Provider Emergency Medicine; PCP Family Medicine
DX: E87.1 Hypo-osmolality and hyponatremia (principal); Z79.4 Long term (current) use of insulin; Z79.02 Long term (current) use of antithrombotics/antiplatelets; I25.10 Atherosclerotic heart disease of native coronary artery without angina pectoris; I10 Essential (primary) hypertension; E78.5 Hyperlipidemia, unspecified
CPT/HCPCS: 71045; 80053; 81003; 84443; 85025; 93005; 96360; 99285; J7030

== ENCOUNTER 2022-05-28 06:45 | Outpatient (CLI) | payer MEDICARE, OTHER, SELFPAY ==
--- NOTE | 2022-05-28 07:00 | USCV_ITS ---
Brandi Berg Age: 77 Gender: F : 1945 Exam Date: 05/28/2022 06:58 Ordering Phys: Gilma Cai MD ([email or web address]) Technologist: RENEE [place] [facility] [place]: LT leg pain and swelling HISTORY: LT leg pain and swelling PROCEDURES: Venous duplex imaging was performed in only the left lower extremity. The following venous structures were evaluated: common femoral vein, profunda vein, proximal portion of the greater saphenous vein, superficial femoral vein, and the popliteal vein. In addition, the posterior tibial and peroneal trunk were evaluated. On the left side, the common femoral, superficial femoral, profunda femoral, popliteal, posterior tibial, greater saphenous veins, and the peroneal trunk were identified and interrogated in the standard fashion. These veins were found to be easily compressible with spontaneous blood flow. No evidence of insufficiency or thrombus noted. Serial compression, augmentation maneuvers, and spectral Doppler flow evaluation were performed. FINDINGS: No evidence of DVT seen in any vessel visualized at this time. Edematous tissues seen in the lateral calf. CONCLUSIONS No evidence of left lower extremity DVT. Edema Left lateral calf Rico Garcia MD (Electronically Signed) Final Date: 28 May 2022 08:27 S
== END 2022-05-28 06:46 | disposition home or self-care (01) ==
LOC: RAD 06:47
PROVIDERS: PCP Family Medicine; Visit Provider Internal Medicine Cardiovascular Disease
DX: M79.605 Pain in left leg (principal); M79.89 Other specified soft tissue disorders; R60.0 Localized edema
CPT/HCPCS: 93971

== ENCOUNTER 2022-06-04 20:00 | Outpatient (CLI) | payer MEDICARE, OTHER, SELFPAY | END 2022-06-04 20:01 | disposition home or self-care (01) | LOC: SLEEP 06-05 05:10 | PROVIDERS: PCP Family Medicine; Visit Provider Family Medicine | DX: G47.33 Obstructive sleep apnea (adult) (pediatric) (principal) | CPT/HCPCS: 95811 ==

== ENCOUNTER 2022-06-10 15:12 | Emergency (ER) | payer MEDICARE, OTHER, SELFPAY ==
[2022-06-10 15:29] VITALS: BP 167/67; PULSE 73; RESP 22; TEMP 36.4; O2SAT 98; BMI 36.9
--- NOTE | 2022-06-10 15:36 | ECG_ITS ---
[facility] Test Date: 2022-06-10 Pat Name: Brandi Berg Department: Room: Gender: Female Spanish Tutor: : 1945 Requested By: Ha Desouza Order Number: [id number] Gamal MD: Honey Smart M.D. Measurements Intervals Matthews Rate: 73 P: -7 NE: 167 QRS: -25 QRSD: 102 T: 57 QT: 363 QTc: 403 Interpretive Statements SINUS RHYTHM BORDERLINE LEFT AXIS DEVIATION [QRS AXIS < -20] MINIMAL VOLTAGE CRITERIA FOR LVH, CONSIDER NORMAL VARIANT [MEETS CRITERIA IN ONE OF: R(aVL), S(V1), R(V5), R(V5/V6)+S(V1)] NONSPECIFIC T-WAVE ABNORMALITY Compared to ECG 05/26/2022 23:04:43 No significant changes Electronically Signed On 06-11-2022 10:03:30 OFFICE CHAIR ASSEMBLER by Honey Smart M.D. [email or web address]
--- NOTE | 2022-06-10 15:50 | ED_ITS ---
Documented by User: Ha Desouza MD 06/21/22 00:53 HPI - General Adult General: Chief complaint: General Medical Stated complaint: severe pain in left breast Time Seen by Provider: 06/10/22 15:50 History of Present Illness: Ms. Berg is a 77-year-old lady with complex past medical history presenting to the emergency department due to concern for chest discomfort. She reports for 5 days of atraumatic onset of aching in the left chest and down the arm. Initially she thought this was just a pulled muscle however symptoms have persisted. She describes pain as burning. Intensity is moderate. Course has persisted. No other specific changes in he alth, exacerbating, or alleviating factors identified. 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 Left axis deviation. Normal ID and QRS duration. Intervertebral disc disorder with radiculopathy of lumbosacral region Psychiatric care Psychiatric care Recurrent UTI Status post left heart catheterization Surgical History History of colonoscopy (~2018) History of coronary artery stent placement History of right knee surgery S/P appendectomy S/P hernia repair S/P hip replacement S/P hysterectomy Family History Family/Other Diabetes Other Cancer Social History Smoking and tobacco status: never smoked Alcohol intake: never Household members: spouse Marital status: Current occupational status: retired History of recent travel: No Physical Exam Const: COMMON NORMALS: alert GENERAL APPEARANCE: cooperative and well developed HENMT: COMMON NORMALS: normocephalic and atraumatic HEAD & SCALP: normocephalic and atraumatic Eye: COMMON NORMALS: conjunctivae normal CONJUNCTIVA: Yes conjunctivae normal SCLERA: sclerae normal Neck/C-Spine: COMMON NORMALS: supple GENERAL: Yes trachea midline Resp: COMMON NORMALS: normal respiratory effort EFFORT & INSPECTION: Yes able to speak in complete sentences Cardio: COMMON NORMALS: regular rate and regular rhythm RATE: regular rate RHYTHM: regular rhythm GI: COMMON NORMALS: Soft to palpation PALPATION: Yes Soft to palpation and No Tenderness to palpation present (GI) PERCUSSION: normal to percussion Extremity: GENERAL: Yes normal exam except as noted and No edema Neuro: COMMON NORMALS: moves all extremities SENSORIUM/ORIENTATION: Yes alert and No Orientation impaired OTHER: Hyperesthesias/hyperalgesia of extremities which the patient reports is chronic. Psych: COMMON NORMALS: mental status grossly normal and Normal thought process present THOUGHT PROCESS: Normal thought process present Skin: NARRATIVE SKIN EXAM: Focused skin exam in area of concern reveals no skin rashes or evidence of fungal skin infection to explain burning pain. Course Vital Signs: Vital signs: Vital Signs Temperature 98 F 06/10/22 17:40 Pulse Rate 68 06/10/22 20:04 Respiratory Rate 16 06/10/22 20:04 Blood Pressure 173/102 06/10/22 17:40 Pulse Oximetry 97 06/10/22 20:04 Oxygen Delivery Me thod 06/10/22 17:40 [facility] - General Adult Medical Records I reviewed the patient's medical records. Lab Data I reviewed the patient's lab results. 06/10/22 16:35 06/10/22 16:35 Radiology Impressions Chest X-Ray 06/10/22 16:17 IMPRESSION: No acute findings. Laboratory Results WBC 7.3 10^3/uL (4.0-10.0) 06/10/22 16:35 RBC 4.32 10^6/uL (4.1-5.3) 06/10/22 16:35 Hgb 13.5 g/dL (11.5-15.3) 06/10/22 16:35 Hct 39.8 % (37.0-47.0) 06/10/22 16:35 MCV 92.1 fl (81-99) 06/10/22 16:35 MCH 31.3 pg (28.0-34.0) 06/10/22 16:35 MCHC 33.9 g/dL (30.0-36.0) 06/10/22 16:35 RDW 12.5 % (12.1-15.1) 06/10/22 16:35 Plt Count 240 10^3/cmm (130-400) 06/10/22 16:35 MPV 9.6 fL (7.4-10.4) 06/10/22 16:35 Neut % (Auto) 54.0 % 06/10/22 16:35 Lymph % (Auto) 31.0 % 06/10/22 16:35 [place] % (Auto) 11.2 % 06/10/22 16:35 Eos % (Auto) 3.0 % 06/10/22 16:35 Baso % (Auto) 0.4 % 06/10/22 16:35 Neut # (Auto) 3.91 10^3/uL (1.8-7.7) 06/10/22 16:35 Lymph # (Auto) 2.3 10^3/uL (0.8-4.8) 06/10/22 16:35 [place] # (Auto) 0.8 10^3/uL (0.2-0.9) 06/10/22 16:35 Eos # (Auto) 0.2 10^3/uL (0.0-0.8) 06/10/22 16:35 Baso # (Auto) 0.0 10^3/uL (0.0-0.1) 06/10/22 16:35 Nucleated RBC % (auto) 0 % 06/10/22 16:35 Nucleated RBCs # 0.0 /100WBC 06/10/22 16:35 D-Dimer 0.54 ug/mIFEU (0-0.59) 06/10/22 16:35 Sodium 129 mmol/L (136-145) L 06/10/22 16:35 Potassium 4.0 mmol/L (3.5-5.1) 06/10/22 16:35 Chloride 89 mmol/L (98-107) L 06/10/22 16:35 Carbon Dioxide 29 mmol/L (22-29) 06/10/22 16:35 Anion Gap 15.0 (5-19) 06/10/22 16:35 BUN 17 mg/dL (8-23) 06/10/22 16:35 Creatinine 0.6 mg/dL (0.5-0.9) 06/10/22 16:35 GFR Calculation Not Reportable 06/10/22 16:35 Glucose 184 mg/dL (65-115) H 06/10/22 16:35 Calculated Osmolality 274 mOsm/kg (285-295) L 06/10/22 16:35 Calcium 10.9 mg/dL (8.5-10.5) H 06/10/22 16:35 Total Bilirubin 0.4 mg/dL (0.15-1.2) 06/10/22 16:35 AST 16 U/L (0-32) 06/10/22 16:35 ALT 19 U/L (0-33) 06/10/22 16:35 Alkaline Phosphatase 185 U/L (35-105) H 06/10/22 16:35 Troponin T Baseline 14 ng/L (0-10) H 06/10/22 16:35 Troponin T 120 Minute 14.47 ng/L (0-10) H 06/10/22 18:24 Delta Troponin T 0.47 ABS# (0-10) 06/10/22 18:24 NT-Pro-B Natriuret Pep 157 pg/mL (0-450) 06/10/22 16:35 Total Protein 8.0 g/dL (6.6-8.7) 06/10/22 16:35 Albumin 4.5 g/dL (3.5-5.2) 06/10/22 16:35 Globulin 3.5 g/dL (1.3-4.6) 06/10/22 16:35 Lipase 16 U/L (13-60) 06/10/22 16:35 Discharge Plan Discharge Patient Disposition: Home Clinical Impression: Atypical chest pain Condition: Stable Prescriptions: No Action dicyclomine 10 mg capsule 10 mg PO QID lactulose 10 gram/15 mL solution 15 ml PO DAILY@12 polyethylene glycol 3350 [Miralax] 17 gram/dose powder 17 g PO DAILY chlorthalidone 25 mg tablet 25 mg PO DAILY Qty: 90 2RF isosorbide mononitrate 120 mg tablet extended release 24 hr 120 mg PO DAILY Qty: 90 3RF cholecalciferol (vitamin D3) 1,000 unit capsule 1,000 unit PO QPM cranberry 500 mg capsule 500 mg PO QPM Lactobacillus acidophilus [Acidophilus] Capsule 1 cap PO QAM ferrous sulfate 325 mg (65 mg iron) tablet 325 mg PO DAILY@12 magnesium oxide 400 mg (241.3 mg magnesium) tablet 500 mg PO DAILY@12 nitroglycerin 0.4 mg tablet, sublingual 0.4 mg sublingual Q5M PRN (Reason: chest pain) 30 Days Qty: 30 3RF Rx Instructions: until response; do not exceed 3 doses per episode citalopram 40 mg tablet 40 mg PO QAM Qty: 30 11RF insulin lispro [Humalog KwikPen Insulin] 100 unit/mL insulin pen 10 unit SUBCUT TID Qty: 30 3RF Rx Instructions: Inject 10 units subcut three times a day with meals. ranolazine 500 mg tablet extended release 12 hr 500 mg PO BID Qty: 180 3RF furosemide 20 mg tablet 60 mg PO DAILY potassium chloride 8 mEq capsule, extended release 24 meq PO DAILY (DME) FreeStyle Tor 2 Sensor Kit See Rx Instructions .MEDSUPPLY Qty: 3 3RF Rx Instructions: As directed (DME) FreeStyle Tor 2 [place] Misc See Rx Instructions .Route Qty: 1 0RF Rx Instructions: As directed esomeprazole magnesium 40 mg capsule,delayed release(DR/EC) 40 mg PO DAILY hydrocortisone 10 mg tablet 10 mg PO QID Qty: 36 0RF (DME) blood sugar diagnostic Strip See Rx Instructions .Route Qty: 400 3RF Rx Instructions: Check blood sugar 4 times a day. (DME) lancets [Comfort EZ Lancets] 21 gauge misc See Rx Instructions .Route Qty: 400 3RF Rx Instructions: As directed (DME) Easymax 15 test strips Strip See Rx Instructions .Route Qty: 400 3RF Rx Instructions: Check BS 4 times a day. clopidogrel 75 mg tablet 75 mg PO QPM Qty: 90 3RF (DME) Dexcom G6 Computational Linguist Misc See Rx Instructions .Route Qty: 1 0RF Rx Instructions: Check BS 4-6 times a day. (DME) Dexcom G6 Sensor Device See Rx Instructions .Route Qty: 9 3RF Rx Instructions: Change every 10 days. (DME) Dexcom G6 Transmitter Device See Rx Instructions .Route Qty: 3 3RF Rx Instructions: Change every 90 days (DME) pen needle, diabetic [BD Ultra-Fine Mini Pen Needle] 31 gauge x 3/16 needle See Rx Instructions .ROUTE .COMPLEX Qty: 400 3RF Dose Instruction: USE DIRECTED Rx Instructions: QID valsartan 320 mg tablet 320 mg PO DAILY Qty: 90 3RF atorvastatin 40 mg tablet 40 mg PO BEDTIME albuterol sulfate 90 mcg/actuation HFA aerosol inhaler 2 puff INHALATION QID PRN (Reason: Shortness Of Breath) Tresiba FlexTouch U-200 200 unit/mL (3 mL) insulin pen 34 unit SUBCUT QPM hydrocodone-acetaminophen 7.5-325 mg tablet 1 tab PO Q6H PRN (Reason: Pain) vitamin E 1,000 unit Capsule 1,000 unit PO DAILY ascorbic acid (vitamin C) [Vitamin C] 500 mg Tablet,Chewable 500 mg PO DAILY@12 quetiapine [Seroquel] 50 mg tablet 50 mg PO BEDTIME ondansetron 4 mg tablet,disintegrating 4 mg PO Q8H PRN (Reason: nausea and vomiting) Qty: 7 0RF Discharge Orders: Discharge ED (Routine); Ordered 06/10/22 Ordered By: Enrico Camejo Referrals: Arabella Orta MD [Primary Care Provider] - Discharge Diet: Usual diet Discharge Activity: Increase activity as tolerated Patient Instructions: Chest Pain (ED) Activity Restrictions/Additional Instructions: Thank you for visiting the emergency department. You were seen and evaluated for chest pain. The exact cause of your pain is unclear however based on ED evaluation as well as prior evaluation does not appear to need hospitalization at this time. I recommend follow-up with cardiology and your primary care provider. Please continue your previously prescribed medications. Return to the emergency department for anything that you are concerned about a feel needs emergency department evaluation. 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 Left axis deviation. Normal ID and QRS duration. Intervertebral disc disorder with radiculopathy of lumbosacral region Psychiatric care Psychiatric care Recurrent UTI Status post left heart catheterization Surgical History History of colonoscopy (~2018) History of coronary artery stent placement History of right knee surgery S/P appendectomy S/P hernia repair S/P hip replacement S/P hysterectomy Family History Family/Other Diabetes Other Cancer Social History Smoking and tobacco status: never smoked Alcohol intake: never Household members: spouse Marital status: Current occupational status: retired History of recent travel: No Course Vital Signs: Vital signs: Vital Signs Temperature 98 F 06/10/22 17:40 Pulse Rate 68 06/10/22 20:04 Respiratory Rate 16 06/10/22 20:04 Blood Pressure 173/102 06/10/22 17:40 Pulse Oximetry 97 06/10/22 20:04 Oxygen Delivery Hi thod 06/10/22 17:40 [facility] - General Adult Medical Decision Making Patient presents here with atypical chest pain she was turned over to me to follow 2-hour troponin which is normal she is well-appearing here she is stable for discharge she is to follow-up with PCP and return if worsening. Lab Data 06/10/22 16:35 06/10/22 16:35 Radiology Impressions Chest X-Ray 06/10/22 16:17 IMPRESSION: No acute findings. Laboratory Results WBC 7.3 10^3/uL (4.0-10.0) 06/10/22 16:35 RBC 4.32 10^6/uL (4.1-5.3) 06/10/22 16:35 Hgb 13.5 g/dL (11.5-15.3) 06/10/22 16:35 Hct 39.8 % (37.0-47.0) 06/10/22 16:35 MCV 92.1 fl (81-99) 06/10/22 16:35 MCH 31.3 pg (28.0-34.0) 06/10/22 16:35 MCHC 33.9 g/dL (30.0-36.0) 06/10/22 16:35 RDW 12.5 % (12.1-15.1) 06/10/22 16:35 Plt Count 240 10^3/cmm (130-400) 06/10/22 16:35 MPV 9.6 fL (7.4-10.4) 06/10/22 16:35 Neut % (Auto) 54.0 % 06/10/22 16:35 Lymph % (Auto) 31.0 % 06/10/22 16:35 [place] % (Auto) 11.2 % 06/10/22 16:35 Eos % (Auto) 3.0 % 06/10/22 16:35 Baso % (Auto) 0.4 % 06/10/22 16:35 Neut # (Auto) 3.91 10^3/uL (1.8-7.7) 06/10/22 16:35 Lymph # (Auto) 2.3 10^3/uL (0.8-4.8) 06/10/22 16:35 [place] # (Auto) 0.8 10^3/uL (0.2-0.9) 06/10/22 16:35 Eos # (Auto) 0.2 10^3/uL (0.0-0.8) 06/10/22 16:35 Baso # (Auto) 0.0 10^3/uL (0.0-0.1) 06/10/22 16:35 Nucleated RBC % (auto) 0 % 06/10/22 16:35 Nucleated RBCs # 0.0 /100WBC 06/10/22 16:35 D-Dimer 0.54 ug/mIFEU (0-0.59) 06/10/22 16:35 Sodium 129 mmol/L (136-145) L 06/10/22 16:35 Potassium 4.0 mmol/L (3.5-5.1) 06/10/22 16:35 Chloride 89 mmol/L (98-107) L 06/10/22 16:35 Carbon Dioxide 29 mmol/L (22-29) 06/10/22 16:35 Anion Gap 15.0 (5-19) 06/10/22 16:35 BUN 17 mg/dL (8-23) 06/10/22 16:35 Creatinine 0.6 mg/dL (0.5-0.9) 06/10/22 16:35 GFR Calculation Not Reportable 06/10/22 16:35 Glucose 184 mg/dL (65-115) H 06/10/22 16:35 Calculated Osmolality 274 mOsm/kg (285-295) L 06/10/22 16:35 Calcium 10.9 mg/dL (8.5-10.5) H 06/10/22 16:35 Total Bilirubin 0.4 mg/dL (0.15-1.2) 06/10/22 16:35 AST 16 U/L (0-32) 06/10/22 16:35 ALT 19 U/L (0-33) 06/10/22 16:35 Alkaline Phosphatase 185 U/L (35-105) H 06/10/22 16:35 Troponin T Baseline 14 ng/L (0-10) H 06/10/22 16:35 Troponin T 120 Minute 14.47 ng/L (0-10) H 06/10/22 18:24 Delta Troponin T 0.47 ABS# (0-10) 06/10/22 18:24 NT-Pro-B Natriuret Pep 157 pg/mL (0-450) 06/10/22 16:35 Total Protein 8.0 g/dL (6.6-8.7) 06/10/22 16:35 Albumin 4.5 g/dL (3.5-5.2) 06/10/22 16:35 Globulin 3.5 g/dL (1.3-4.6) 06/10/22 16:35 Lipase 16 U/L (13-60) 06/10/22 16:35 Discharge Plan Discharge Patient Disposition: Home Clinical Impression: Atypical chest pain Condition: Stable Prescriptions: No Action dicyclomine 10 mg capsule 10 mg PO QID lactulose 10 gram/15 mL solution 15 ml PO DAILY@12 polyethylene glycol 3350 [Miralax] 17 gram/dose powder 17 g PO DAILY chlorthalidone 25 mg tablet 25 mg PO DAILY Qty: 90 2RF isosorbide mononitrate 120 mg tablet extended release 24 hr 120 mg PO DAILY Qty: 90 3RF cholecalciferol (vitamin D3) 1,000 unit capsule 1,000 unit PO QPM cranberry 500 mg capsule 500 mg PO QPM Lactobacillus acidophilus [Acidophilus] Capsule 1 cap PO QAM ferrous sulfate 325 mg (65 mg iron) tablet 325 mg PO DAILY@12 magnesium oxide 400 mg (241.3 mg magnesium) tablet 500 mg PO DAILY@12 nitroglycerin 0.4 mg tablet, sublingual 0.4 mg sublingual Q5M PRN (Reason: chest pain) 30 Days Qty: 30 3RF Rx Instructions: until response; do not exceed 3 doses per episode citalopram 40 mg tablet 40 mg PO QAM Qty: 30 11RF insulin lispro [Humalog KwikPen Insulin] 100 unit/mL insulin pen 10 unit SUBCUT TID Qty: 30 3RF Rx Instructions: Inject 10 units subcut three times a day with meals. ranolazine 500 mg tablet extended release 12 hr 500 mg PO BID Qty: 180 3RF furosemide 20 mg tablet 60 mg PO DAILY potassium chloride 8 mEq capsule, extended release 24 meq PO DAILY (DME) FreeStyle Tor 2 Sensor Kit See Rx Instructions .MEDSUPPLY Qty: 3 3RF Rx Instructions: As directed (DME) FreeStyle Tor 2 [place] Misc See Rx Instructions .Route Qty: 1 0RF Rx Instructions: As directed esomeprazole magnesium 40 mg capsule,delayed release(DR/EC) 40 mg PO DAILY hydrocortisone 10 mg tablet 10 mg PO QID Qty: 36 0RF (DME) blood sugar diagnostic Strip See Rx Instructions .Route Qty: 400 3RF Rx Instructions: Check blood sugar 4 times a day. (DME) lancets [Comfort EZ Lancets] 21 gauge misc See Rx Instructions .Route Qty: 400 3RF Rx Instructions: As directed (DME) Easymax 15 test strips Strip See Rx Instructions .Route Qty: 400 3RF Rx Instructions: Check BS 4 times a day. clopidogrel 75 mg tablet 75 mg PO QPM Qty: 90 3RF (DME) Dexcom G6 Computational Linguist Misc See Rx Instructions .Route Qty: 1 0RF Rx Instructions: Check BS 4-6 times a day. (DME) Dexcom G6 Sensor Device See Rx Instructions .Route Qty: 9 3RF Rx Instructions: Change every 10 days. (DME) Dexcom G6 Transmitter Device See Rx Instructions .Route Qty: 3 3RF Rx Instructions: Change every 90 days (DME) pen needle, diabetic [BD Ultra-Fine Mini Pen Needle] 31 gauge x 3/16 needle See Rx Instructions .ROUTE .COMPLEX Qty: 400 3RF Dose Instruction: USE DIRECTED Rx Instructions: QID valsartan 320 mg tablet 320 mg PO DAILY Qty: 90 3RF atorvastatin 40 mg tablet 40 mg PO BEDTIME albuterol sulfate 90 mcg/actuation HFA aerosol inhaler 2 puff INHALATION QID PRN (Reason: Shortness Of Breath) Tresiba FlexTouch U-200 200 unit/mL (3 mL) insulin pen 34 unit SUBCUT QPM hydrocodone-acetaminophen 7.5-325 mg tablet 1 tab PO Q6H PRN (Reason: Pain) vitamin E 1,000 unit Capsule 1,000 unit PO DAILY ascorbic acid (vitamin C) [Vitamin C] 500 mg Tablet,Chewable 500 mg PO DAILY@12 quetiapine [Seroquel] 50 mg tablet 50 mg PO BEDTIME ondansetron 4 mg tablet,disintegrating 4 mg PO Q8H PRN (Reason: nausea and vomiting) Qty: 7 0RF Discharge Orders: Discharge ED (Routine); Ordered 06/10/22 Ordered By: Enrico Camejo Referrals: Arabella Orta MD [Primary Care Provider] - Discharge Diet: Usual diet Discharge Activity: Increase activity as tolerated Patient Instructions: Chest Pain (ED) Activity Restrictions/Additional Instructions: Thank you for visiting the emergency department. You were seen and evaluated for chest pain. The exact cause of your pain is unclear however based on ED evaluation as well as prior evaluation does not appear to need hospitalization at this time. I recommend follow-up with cardiology and your primary care provider. Please continue your previously prescribed medications. Return to the emergency department for anything that you are concerned about a feel needs emergency department evaluation. Coding Level of Care Code ED Game Preserve Manager for [place] Fwd Exam Comprehensive
[2022-06-10 16:07] VITALS: PULSE 79; RESP 20; O2SAT 98
--- NOTE | 2022-06-10 16:17 | ECG_ITS ---
[facility] Test Date: 2022-06-10 Pat Name: Brandi Berg Department: Room: Gender: Female Hot Mix Operator: : 1945 Requested By: Ha Desouza Order Number: [id number] Gamal MD: Honey Smart M.D. Measurements Intervals [place] Rate: 75 P: 62 [place]: 166 QRS: -30 QRSD: 102 T: 77 QT: 367 QTc: 412 Interpretive Statements SINUS RHYTHM BORDERLINE LEFT AXIS DEVIATION [QRS AXIS < -20] NONSPECIFIC T-WAVE ABNORMALITY Compared to ECG 06/10/2022 15:36:57 No significant changes Electronically Signed On 06-11-2022 10:03:15 ETCHER ELECTROLYTIC by Honey Smart M.D. [id number]
--- NOTE | 2022-06-10 16:17 | XRR_ITS ---
PROCEDURE INFORMATION: Exam: XR Chest Exam date and time: 06/10/2022 4:29 PM Age: 77 years old Clinical indication: Pain; Left-sided; Additional info: Cp TECHNIQUE: Imaging protocol: Radiologic exam of the chest. Views: 1 view. COMPARISON: CR (CHEST, ) 05/27/2022 12:37 AM FINDINGS: Lungs: Unremarkable. No consolidation. Pleural spaces: Unremarkable. No pleural effusion. No pneumothorax. Heart/Mediastinum: Unremarkable. No cardiomegaly. Bones/joints: Unremarkable. XR/XR chest 1V portable [id number] IMPRESSION: No acute findings.
[2022-06-10] MEDS: fentaNYL 50 mcg/mL INJ 2mL IVP (16:42)
[2022-06-10 16:43] LABS: Basophils % 0.4 %; Eosinophils # 0.2 10^3/uL (0.0-0.8); Hematocrit 39.8 % (37.0-47.0); Hemoglobin 13.5 g/dL (11.5-15.3); Lymphocytes # 2.3 10^3/uL (0.8-4.8); Mean Corpuscular HGB Conc 33.9 g/dL (30.0-36.0); Mean Corpuscular Hemoglobin 31.3 pg (28.0-34.0); Mean Corpuscular Volume 92.1 fl (81-99); Mean Platelet Volume 9.6 fL (7.4-10.4); Monocytes # 0.8 10^3/uL (0.2-0.9); Monocytes % 11.2 %; Neutrophils # 3.91 10^3/uL (1.8-7.7); Nucleated Red Blood Cells % 0 %; Platelet Count 240 10^3/cmm (130-400); Red Blood Count 4.32 10^6/uL (4.1-5.3); Red Cell Distribution Width 12.5 % (12.1-15.1); White Blood Count 7.3 10^3/uL (4.0-10.0)
[2022-06-10 16:55] VITALS: BP 180/68; PULSE 77; RESP 16; TEMP 36.6; O2SAT 96
[2022-06-10 17:11] LABS: D Dimer 0.54 ug/mIFEU (0-0.59)
[2022-06-10 17:18] LABS: Troponin(5th) Baseline 14 ng/L (0-10)
[2022-06-10 17:27] LABS: Alanine Aminotransferase 19 U/L (0-33); Albumin Level 4.5 g/dL (3.5-5.2); Alkaline Phosphatase 185 U/L (35-105); Aspartate Amino Transferase 16 U/L (0-32); Blood Urea Nitrogen 17 mg/dL (8-23); Calcium 10.9 mg/dL (8.5-10.5); Carbon Dioxide 29 mmol/L (22-29); Chloride 89 mmol/L (98-107); Globulin 3.5 g/dL (1.3-4.6); Glucose 184 mg/dL (65-115); Lipase 16 U/L (13-60); NT Pro B Type Natriuretic Pept 157 pg/mL (0-450); Osmolality Calculated 274 mOsm/kg (285-295); Sodium 129 mmol/L (136-145); Total Bilirubin 0.4 mg/dL (0.15-1.2)
[2022-06-10 17:40] VITALS: BP 173/102; PULSE 74; RESP 19; TEMP 36.6; O2SAT 92
--- NOTE | 2022-06-10 18:17 | ECG_ITS ---
[facility] Test Date: 2022-06-10 Pat Name: Brandi Berg Department: Room: Gender: Female System Administration Advisor: : 1945 Requested By: Ha Desouza Order Number: [id number] Gamal MD: Honey Smart M.D. Measurements Intervals [place] Rate: 73 P: 57 [place]: 160 QRS: -32 QRSD: 111 T: 82 QT: 378 QTc: 418 Interpretive Statements SINUS RHYTHM LEFT AXIS DEVIATION [QRS AXIS < -30] MODERATE INTRAVENTRICULAR CONDUCTION DELAY [110+ ms QRS DURATION] NONSPECIFIC T-WAVE ABNORMALITY Compared to ECG 06/10/2022 16:44:34 Intraventricular conduction delay now present T-wave abnormality still present Electronically Signed On 06-11-2022 10:09:51 FLUE BLOWER by Honey Smart M.D. [id number]
[2022-06-10] MEDS: ondansetron 2 mg/ML SDV 2 mL 4 MG IVP (18:22)
[2022-06-10 18:52] LABS: Troponin 5 2HR 14.47 ng/L (0-10)
[2022-06-10 18:59] LABS: Troponin 5 2HR Delta 0.47 ABS# (0-10)
--- NOTE | 2022-06-10 19:10 | PC.NURSE ---
pt requesting food. Nurse provided sandwich tray and peanut butter with crackers.
[2022-06-10 20:04] VITALS: PULSE 68; RESP 16; O2SAT 97
== END 2022-06-10 20:05 | disposition home or self-care (01) ==
PROVIDERS: Emergency Medicine; Emergency Provider Emergency Medicine; PCP Family Medicine
DX: R07.89 Other chest pain (principal); Z79.02 Long term (current) use of antithrombotics/antiplatelets; Z79.4 Long term (current) use of insulin; I25.10 Atherosclerotic heart disease of native coronary artery without angina pectoris; I10 Essential (primary) hypertension; E78.5 Hyperlipidemia, unspecified
CPT/HCPCS: 71045; 80053; 83690; 83880; 84484; 85025; 85378; 93005; 96374; 96375; 99285; J2405; J3010

== ENCOUNTER 2022-07-04 23:23 | Emergency (ER) | payer MEDICARE, OTHER, SELFPAY ==
[2022-07-04 23:32] VITALS: BP 155/68; PULSE 82; RESP 13; TEMP 36.2; O2SAT 98; BMI 36.6
--- NOTE | 2022-07-05 00:58 | XRR_ITS ---
PROCEDURE INFORMATION: Exam: XR Lumbosacral Spine Exam date and time: 07/05/2022 1:20 AM Age: 77 years old Clinical indication: Low back pain; Additional info: Low back pain, radicular TECHNIQUE: Imaging protocol: Radiologic exam of the lumbosacral spine. Views: 2 or 3 views. COMPARISON: CT abdomen pelvis wo con [id number] 04/24/2022 7:05 PM FINDINGS: Bones/joints: Right hip arthroplasty. Moderate diffuse lumbar degenerative change. No fracture visualized. Minimal chronic L4 on L5 anterolisthesis, unchanged from 04/24/2022. Soft tissues: Unremarkable. Vasculature: Advanced diffuse vascular calcification noted. XR/XR lumbar spine 2-3V* 19403 IMPRESSION: Moderate lumbar degenerative change, no definite acute fracture.
[2022-07-05] MEDS: fentaNYL 50 mcg/mL INJ 2mL 100 MCG XX (01:09)
[2022-07-05] MEDS: ondansetron 4 MG Tablet PO (01:09)
[2022-07-05] MEDS: ketorolac 30 mg/mL INJ IM (02:35)
[2022-07-05] MEDS: oxyCODONE-APAP 5-325 mg Tablet 2 TAB PO (02:35)
[2022-07-05] MEDS: predniSONE 20 mg Tablet 40 MG PO (02:35)
--- NOTE | 2022-07-05 06:00 | ED_ITS ---
HPI - Extremity Problem General: Chief complaint: Extremity Problem,Nontraumatic Stated complaint: back pain Time Seen by Provider: 07/05/22 00:17 Source: patient History of Present Illness: 77-year-old female well-known to the ER. She presents with left-sided low back and posterior hip pain radiating down her left leg. She says that she took 2 of her home hydrocodone without relief. She says her leg feels numb and tingly at times. No genital numbness. No new loss of bowel or bladder function MD Complaint: extremity pain Onset (ago): hour(s) Pain Consistency: constant Location: left Quality: burning, stabbing and aching Radiation: distal Relieving factors: nothing Associated symptoms: Deny chest pain, fever(s), rash or short of breath Review of Systems Const: Denies: fever(s) Card: Denies: chest pain Resp: Denies: dyspnea GI: Denies: abdominal pain, nausea or vomiting : Denies: flank pain or difficulty voiding Musc: Reports: back pain and extremity pain Skin/Breast: Denies: rash Psych: Reports: anxiety PFSH ED PFSH: Medical History Acute cystitis Anemia, chronic disease 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 Left axis deviation. Normal AK and QRS duration. Intervertebral disc disorder with radiculopathy of lumbosacral region Psychiatric care Psychiatric care Recurrent UTI Status post left heart catheterization Surgical History History of colonoscopy (~2018) History of coronary artery stent placement History of right knee surgery S/P appendectomy S/P hernia repair S/P hip replacement S/P hysterectomy Family History Family/Other Diabetes Other Cancer Social History Smoking and tobacco status: never smoked Alcohol intake: never Household members: spouse Marital status: Current occupational status: retired History of recent travel: No Physical Exam Const: GENERAL APPEARANCE: cooperative, in distress (appears in pain) and anxious; not ill appearing ORIENTATION/CONSCIOUSNESS: Yes awake, Yes oriented to person, Yes oriented to place and Yes oriented to time HENMT: COMMON NORMALS: normocephalic, atraumatic and Normal external nose present HEAD & SCALP: normocephalic and atraumatic FACE & SINUS: normal facial exam NOSE: Normal external nose present Eye: COMMON NORMALS: Equal, round and reactive pupils present and EOMs intact bilaterally PUPIL: Yes Equal, round and reactive pupils present Chest: CHEST: Yes Symmetrical chest wall rise Resp: COMMON NORMALS: normal respiratory effort, No retractions and No use of accessory muscles Cardio: COMMON NORMALS: regular rate and regular rhythm RATE: regular rate RHYTHM: regular rhythm GI: COMMON NORMALS: Soft to palpation INSPECTION: Yes normal to inspection PALPATION: Yes Soft to palpation : COMMON NORMALS: Yes no CVA tenderness BLADDER/KIDNEY EXAM: Yes no CVA tenderness Back/Pelvis: COMMON NORMALS: no CVA tenderness LUMBAR SPINE/LOWER BACK: Yes lumbar spinal tenderness (left L5. no midline tenderness) and Yes straight leg raise negative bilaterally SACROILIAC JOINTS: Yes SI joint(s) abnormal SI joint details: tender to palpation (left) Extremity: GENERAL: Yes edema (bilateral) Neuro: SENSORIUM/ORIENTATION: Yes oriented to person, Yes oriented to place and Yes oriented to time Course Vital Signs: Vital signs: Vital Signs Temperature 97.1 F L 07/04/22 23:32 Pulse Rate 82 07/04/22 23:32 Respiratory Rate 13 07/04/22 23:32 Blood Pressure 155/68 07/04/22 23:32 Pulse Oximetry 98 07/04/22 23:32 Oxygen Delivery Me thod 07/04/22 23:32 MDM - Extremity (Nontraumatic) Medical Decision Making 77-year-old female complaining of radicular left low back pain. No midline tenderness. X-rays are negative for fracture, tumor, etc. She does have some spondylosis. She will be treated for sciatica with a tapering dose of steroid medication Lab Data Radiology Impressions Lumbar Spine X-Ray 07/05/22 00:58 IMPRESSION: Moderate lumbar degenerative change, no definite acute fracture. Discharge Plan Discharge Patient Disposition: Home Clinical Impression: Sciatica Condition: Stable Prescriptions: No Action dicyclomine 10 mg capsule 10 mg PO QID lactulose 10 gram/15 mL solution 15 ml PO DAILY@12 polyethylene glycol 3350 [Miralax] 17 gram/dose powder 17 g PO DAILY chlorthalidone 25 mg tablet 25 mg PO DAILY Qty: 90 2RF isosorbide mononitrate 120 mg tablet extended release 24 hr 120 mg PO DAILY Qty: 90 3RF cholecalciferol (vitamin D3) 1,000 unit capsule 1,000 unit PO QPM cranberry 500 mg capsule 500 mg PO QPM Lactobacillus acidophilus [Acidophilus] Capsule 1 cap PO QAM ferrous sulfate 325 mg (65 mg iron) tablet 325 mg PO DAILY@12 magnesium oxide 400 mg (241.3 mg magnesium) tablet 500 mg PO DAILY@12 nitroglycerin 0.4 mg tablet, sublingual 0.4 mg sublingual Q5M PRN (Reason: chest pain) 30 Days Qty: 30 3RF Rx Instructions: until response; do not exceed 3 doses per episode citalopram 40 mg tablet 40 mg PO QAM Qty: 30 11RF insulin lispro [Humalog KwikPen Insulin] 100 unit/mL insulin pen 10 unit SUBCUT TID Qty: 30 3RF Rx Instructions: Inject 10 units subcut three times a day with meals. ranolazine 500 mg tablet extended release 12 hr 500 mg PO BID Qty: 180 3RF furosemide 20 mg tablet 60 mg PO DAILY potassium chloride 8 mEq capsule, extended release 24 meq PO DAILY (DME) FreeStyle Tor 2 Sensor Kit See Rx Instructions .MEDSUPPLY Qty: 3 3RF Rx Instructions: As directed (DME) FreeStyle Tor 2 [place] Misc See Rx Instructions .Route Qty: 1 0RF Rx Instructions: As directed esomeprazole magnesium 40 mg capsule,delayed release(DR/EC) 40 mg PO DAILY hydrocortisone 10 mg tablet 10 mg PO QID Qty: 36 0RF (DME) blood sugar diagnostic Strip See Rx Instructions .Route Qty: 400 3RF Rx Instructions: Check blood sugar 4 times a day. (DME) lancets [Comfort EZ Lancets] 21 gauge misc See Rx Instructions .Route Qty: 400 3RF Rx Instructions: As directed (DME) Easymax 15 test strips Strip See Rx Instructions .Route Qty: 400 3RF Rx Instructions: Check BS 4 times a day. clopidogrel 75 mg tablet 75 mg PO QPM Qty: 90 3RF (DME) Dexcom G6 Senior Product Marketing Manager Misc See Rx Instructions .Route Qty: 1 0RF Rx Instructions: Check BS 4-6 times a day. (DME) Dexcom G6 Sensor Device See Rx Instructions .Route Qty: 9 3RF Rx Instructions: Change every 10 days. (DME) Dexcom G6 Transmitter Device See Rx Instructions .Route Qty: 3 3RF Rx Instructions: Change every 90 days (DME) pen needle, diabetic [BD Ultra-Fine Mini Pen Needle] 31 gauge x 3/16 needle See Rx Instructions .ROUTE .COMPLEX Qty: 400 3RF Dose Instruction: USE DIRECTED Rx Instructions: QID valsartan 320 mg tablet 320 mg PO DAILY Qty: 90 3RF atorvastatin 40 mg tablet 40 mg PO BEDTIME albuterol sulfate 90 mcg/actuation HFA aerosol inhaler 2 puff INHALATION QID PRN (Reason: Shortness Of Breath) Tresiba FlexTouch U-200 200 unit/mL (3 mL) insulin pen 34 unit SUBCUT QPM hydrocodone-acetaminophen 7.5-325 mg tablet 1 tab PO Q6H PRN (Reason: Pain) vitamin E 1,000 unit Capsule 1,000 unit PO DAILY ascorbic acid (vitamin C) [Vitamin C] 500 mg Tablet,Chewable 500 mg PO DAILY@12 quetiapine [Seroquel] 50 mg tablet 50 mg PO BEDTIME ondansetron 4 mg tablet,disintegrating 4 mg PO Q8H PRN (Reason: nausea and vomiting) Qty: 7 0RF ketorolac 10 mg tablet 10 mg PO Q8H PRN (Reason: pain) 3 Days Qty: 9 0RF methocarbamol 1,000 mg tablet 1,000 mg PO Q8H Qty: 21 0RF Discharge Orders: Discharge ED (Routine); Ordered 07/05/22 Ordered By: Monty Briseno Referrals: Arabella Orta MD [Primary Care Provider] - 1-3 days Patient Instructions: Sciatica (ED), Opioid Safety, Pain Management Activity Restrictions/Additional Instructions: Return for fever, numbness to the genital area, any other concerning symptoms. 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
== END 2022-07-05 02:50 | disposition home or self-care (01) ==
PROVIDERS: Emergency Provider Emergency Medicine; PCP Family Medicine
DX: M54.30 Sciatica, unspecified side (principal); Z79.02 Long term (current) use of antithrombotics/antiplatelets; Z79.4 Long term (current) use of insulin; I25.10 Atherosclerotic heart disease of native coronary artery without angina pectoris; I10 Essential (primary) hypertension; E78.5 Hyperlipidemia, unspecified
CPT/HCPCS: 72100; 96372; 99284; J1885; J3010; J7512; Q0162

== ENCOUNTER 2022-07-05 07:42 | Emergency (ER) | payer MEDICARE, OTHER, SELFPAY ==
[2022-07-05 07:44] VITALS: BMI 37.4
[2022-07-05 07:54] VITALS: BP 180/60; PULSE 82; RESP 17; TEMP 36.4; O2SAT 98
--- NOTE | 2022-07-05 08:04 | ED_ITS ---
HPI - Extremity Problem General: Chief complaint: Extremity Injury, Lower Stated complaint: Pain Left hip pain and numb Time Seen by Provider: 07/05/22 07:55 Source: patient Mode of arrival: wheelchair Limitations: no limitations History of Present Illness: 77-year-old female presents to the ER with a history of significant chronic back pain. Patient was seen here late last night/early this morning. Patient was released about 230 this morning. At that time she was given fentanyl, steroids, and tramadol. Patient has not picked up the steroids. She reports the fentanyl and tramadol have done nothing for her pain. She also takes oxycodone at home and reports it is not touching the pain. Nothing has changed since last night. No recent falls. She reports there is still pain radiating down her left leg into her foot. Reports bilateral lower extremity swelling. She takes 60 mg of Lasix daily for that. This is managed by her PCP. Patient has not had an MRI done at least for the last year. She did have a fall in December and did not have any advanced imaging done after that. Patient denies any loss of bowel or bladder control. Denies any genital numbness or tingling. Patient reports trouble getting around her home however does admit she has family that can help. Patient is not currently taking a muscle relaxer. She reports at one point she was on tizanidine but she did not feel like it helped. She also said that gabapentin did not help with her numbness or tingling. She is allergic to pregabalin and reports it makes her vomit. 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 Left axis deviation. Normal AK and QRS duration. Intervertebral disc disorder with radiculopathy of lumbosacral region Psychiatric care Psychiatric care Recurrent UTI Status post left heart catheterization Surgical History History of colonoscopy (~2018) History of coronary artery stent placement History of right knee surgery S/P appendectomy S/P hernia repair S/P hip replacement S/P hysterectomy Family History Family/Other Diabetes Other Cancer Social History Smoking and tobacco status: never smoked Alcohol intake: never Household members: spouse Marital status: Current occupational status: retired History of recent travel: No Physical Exam Const: COMMON NORMALS: no acute distress (Patient does not appear to be in any acute distress), patient oriented x3, alert and well nourished Neck/C-Spine: COMMON NORMALS: full ROM and no lymphadenopathy Resp: COMMON NORMALS: normal respiratory effort, No retractions and clear to auscultation bilaterally AUSCULTATION: clear to auscultation bilaterally Cardio: COMMON NORMALS: regular rate, regular rhythm and No murmurs present (Cardio) RATE: regular rate RHYTHM: regular rhythm GI: COMMON NORMALS: Normal to inspection, nondistended, normoactive bowel sounds present, Soft to palpation and non-tender PALPATION: Yes Soft to pal pation Back/Pelvis: LUMBAR SPINE/LOWER BACK: Yes ROM limited (Secondary to pain) and Yes pain with ROM OTHER: Nontender along lumbar vertebral processes, however some SI joint tenderness on the left side is noted. Extremity: NARRATIVE EXTREMITY EXAM: +1 pitting edema bilaterally Neuro: COMMON NORMALS: patient oriented x3 SENSORIUM/ORIENTATION: Yes alert Psych: COMMON NORMALS: cooperative Skin: COMMON NORMALS: no rashes or lesions noted and no wounds GENERAL SKIN EXAM: no rashes or lesions noted Course ED course: Patient presents 5 hours after being released from the ER last night for the same issue. Patient was given fentanyl, tramadol, and steroids. She has not picked up the steroids at this time. Patient reports the fentanyl and tramadol have not touched the pain. She also has oxycodone at home which is not helping. She has no new injury. Patient has had recent labs which were normal. Patient did have imaging done last night which showed moderate degenerative changes however nothing acute. Given nothing is changed as last night, no additional imaging or labs are required at this time. Vital Signs: Vital signs: Vital Signs Temperature 97.5 F L 02/12/23 07:54 Pulse Rate 82 07/05/22 07:54 Respiratory Rate 17 07/05/22 07:54 Blood Pressure 180/60 07/05/22 07:54 Pulse Oximetry 98 07/05/22 07:54 Oxygen Delivery Me thod 07/05/22 07:54 MDM - Extremity (Nontraumatic) Medical Decision Making Patient was just seen 5 hours ago. She was given fentanyl, tramadol and steroids. She has not picked up the steroids. Patient reports no improvement with fentanyl or tramadol. Patient has had no changes since the middle of the night when she was discharged. Patient had x-ray of lumbar spine done last night which showed moderate degenerative changes however nothing acute. She has had recent lab work which was all okay or stable. Patient has not had any recent falls since being released. She has no neurological deficits at this time. I discussed with patient that she has been given the max medications we can do in the ER. She needs to strip picker the steroids. I will do a Toradol shot in the ER and send patient home with ketorolac. She has an allergy to meloxicam but reports it just causes vomiting. We will also send patient home with Diomedes abreu. She was on tizanidine in the past and did not have an allergy she just did not feel like it helps. I discussed with patient she really needs advanced imaging like an MRI however we do not do that through the ER given she has no neurological deficits. She needs to call her PCP first thing in the morning to discuss an appointment and possible imaging. Patient does report she has family that can help her at home. It is difficult for her to do steps and it requires her going up 1 step to get to her wheelchair ramp to get into her home. She does report that her daughter can help her though. We did discuss that she should also discuss with her primary care provider possible pain management if nothing can be done at this time. Critical Care Time Critical Care Time: Critical Care Time: No Discharge Plan Discharge Patient Disposition: Home Clinical Impression: Chronic low back pain with left-sided sciatica Qualifiers: Back pain laterality: left Qualified Code(s): M54.42 - Lumbago with sciatica, left side Condition: Stable Prescriptions: New ketorolac 10 mg tablet 10 mg PO Q8H PRN (Reason: pain) 3 Days Qty: 9 0RF methocarbamol 1,000 mg tablet 1,000 mg PO Q8H Qty: 21 0RF No Action dicyclomine 10 mg capsule 10 mg PO QID lactulose 10 gram/15 mL solution 15 ml PO DAILY@12 polyethylene glycol 3350 [Miralax] 17 gram/dose powder 17 g PO DAILY chlorthalidone 25 mg tablet 25 mg PO DAILY Qty: 90 2RF isosorbide mononitrate 120 mg tablet extended release 24 hr 120 mg PO DAILY Qty: 90 3RF cholecalciferol (vitamin D3) 1,000 unit capsule 1,000 unit PO QPM cranberry 500 mg capsule 500 mg PO QPM Lactobacillus acidophilus [Acidophilus] Capsule 1 cap PO QAM ferrous sulfate 325 mg (65 mg iron) tablet 325 mg PO DAILY@12 magnesium oxide 400 mg (241.3 mg magnesium) tablet 500 mg PO DAILY@12 nitroglycerin 0.4 mg tablet, sublingual 0.4 mg sublingual Q5M PRN (Reason: chest pain) 30 Days Qty: 30 3RF Rx Instructions: until response; do not exceed 3 doses per episode citalopram 40 mg tablet 40 mg PO QAM Qty: 30 11RF insulin lispro [Humalog KwikPen Insulin] 100 unit/mL insulin pen 10 unit SUBCUT TID Qty: 30 3RF Rx Instructions: Inject 10 units subcut three times a day with meals. ranolazine 500 mg tablet extended release 12 hr 500 mg PO BID Qty: 180 3RF furosemide 20 mg tablet 60 mg PO DAILY potassium chloride 8 mEq capsule, extended release 24 meq PO DAILY (DME) FreeStyle Tor 2 Sensor Kit See Rx Instructions .MEDSUPPLY Qty: 3 3RF Rx Instructions: As directed (DME) FreeStyle Tor 2 [place] Misc See Rx Instructions .Route Qty: 1 0RF Rx Instructions: As directed esomeprazole magnesium 40 mg capsule,delayed release(DR/EC) 40 mg PO DAILY hydrocortisone 10 mg tablet 10 mg PO QID Qty: 36 0RF (DME) blood sugar diagnostic Strip See Rx Instructions .Route Qty: 400 3RF Rx Instructions: Check blood sugar 4 times a day. (DME) lancets [Comfort EZ Lancets] 21 gauge misc See Rx Instructions .Route Qty: 400 3RF Rx Instructions: As directed (DME) Easymax 15 test strips Strip See Rx Instructions .Route Qty: 400 3RF Rx Instructions: Check BS 4 times a day. clopidogrel 75 mg tablet 75 mg PO QPM Qty: 90 3RF (DME) Dexcom G6 Vice President Of Human Resources Misc See Rx Instructions .Route Qty: 1 0RF Rx Instructions: Check BS 4-6 times a day. (DME) Dexcom G6 Sensor Device See Rx Instructions .Route Qty: 9 3RF Rx Instructions: Change every 10 days. (DME) Dexcom G6 Transmitter Device See Rx Instructions .Route Qty: 3 3RF Rx Instructions: Change every 90 days (DME) pen needle, diabetic [BD Ultra-Fine Mini Pen Needle] 31 gauge x 3/16 needle See Rx Instructions .ROUTE .COMPLEX Qty: 400 3RF Dose Instruction: USE DIRECTED Rx Instructions: QID valsartan 320 mg tablet 320 mg PO DAILY Qty: 90 3RF atorvastatin 40 mg tablet 40 mg PO BEDTIME albuterol sulfate 90 mcg/actuation HFA aerosol inhaler 2 puff INHALATION QID PRN (Reason: Shortness Of Breath) Tresiba FlexTouch U-200 200 unit/mL (3 mL) insulin pen 34 unit SUBCUT QPM hydrocodone-acetaminophen 7.5-325 mg tablet 1 tab PO Q6H PRN (Reason: Pain) vitamin E 1,000 unit Capsule 1,000 unit PO DAILY ascorbic acid (vitamin C) [Vitamin C] 500 mg Tablet,Chewable 500 mg PO DAILY@12 quetiapine [Seroquel] 50 mg tablet 50 mg PO BEDTIME ondansetron 4 mg tablet,disintegrating 4 mg PO Q8H PRN (Reason: nausea and vomiting) Qty: 7 0RF Discharge Orders: Discharge ED (Routine); Ordered 07/05/22 Ordered By: Jaquelin Mccallum Referrals: Arabella Orta MD [Primary Care Provider] - Discharge Diet: Usual diet Discharge Activity: Increase activity as tolerated Patient Instructions: Opioid Safety, Pain Management Activity Restrictions/Additional Instructions: Take ketorolac and Robaxin as prescribed. Contact your primary care physician tomorrow morning and get in. I suggest advanced imaging such as an MRI to further investigate the pain. Continue all other home medications as previously prescribed. Rest recommended. I recommend you contact a family member to help you if you are struggling at home for the next 24 hours or so. 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
[2022-07-05] MEDS: ketorolac 30 mg/mL INJ IM (08:14)
== END 2022-07-05 08:21 | disposition home or self-care (01) ==
PROVIDERS: Emergency Provider Physician Assistant; PCP Family Medicine
DX: G89.29 Other chronic pain (principal); M54.42 Lumbago with sciatica, left side; Z79.4 Long term (current) use of insulin; Z79.02 Long term (current) use of antithrombotics/antiplatelets; I25.10 Atherosclerotic heart disease of native coronary artery without angina pectoris; I10 Essential (primary) hypertension; E78.5 Hyperlipidemia, unspecified; M54.9 Dorsalgia, unspecified; M54.50 Low back pain, unspecified
CPT/HCPCS: 96372; 99284; J1885

== ENCOUNTER 2022-07-06 15:22 | Emergency (ER) | payer MEDICARE, OTHER, SELFPAY ==
[2022-07-06 15:44] VITALS: BP 196/79; PULSE 86; RESP 20; TEMP 36.9; O2SAT 98
--- NOTE | 2022-07-06 17:09 | W.ED.EXTPRO ---
HPI - Extremity Problem General: Chief complaint: Extremity Problem,Nontraumatic Stated complaint: BACK PAIN Time Seen by Provider: 07/06/22 17:06 History of Present Illness: 77-year-old female comes in today for unrelieved lower back pain. Patient states that she has had persistent pain in her low back radiating mainly down her left leg. Patient has been seen 2 prior times in the ER for the same pain and within the last 5 days. Patient reports no loss of bowel or bladder control. Patient reports no fever. Patient appears in moderate pain. Patient is able to ambulate. Patient does take hydrocodone routinely for her pain. Patient has an appointment with her primary care provider on Wednesday for further evaluation. Patient was last given ketorolac and methocarbamol along with her routine medicines to assist with her pain. 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 Left axis deviation. Normal GA and QRS duration. Intervertebral disc disorder with radiculopathy of lumbosacral region Psychiatric care Psychiatric care Recurrent UTI Status post left heart catheterization Surgical History History of colonoscopy (~2018) History of coronary artery stent placement History of right knee surgery S/P appendectomy S/P hernia repair S/P hip replacement S/P hysterectomy Family History Family/Other Diabetes Other Cancer Social History (Reviewed 07/05/22 @ 16:12 by EDDIE Cabrera Smoking and tobacco status: never smoked Alcohol intake: never Household members: spouse Marital status: Current occupational status: retired History of recent travel: No Physical Exam Const: COMMON NORMALS: alert HENMT: COMMON NORMALS: normocephalic and Normal external nose present HEAD & SCALP: normocephalic NOSE: Normal external nose present MOUTH: Normal oral and palatal mucosa present Neck/C-Spine: COMMON NORMALS: full ROM Resp: COMMON NORMALS: normal respiratory effort and clear to auscultation bilaterally AUSCULTATION: clear to auscultation bilaterally Cardio: COMMON NORMALS: regular rate and regular rhythm RATE: regular rate RHYTHM: regular rhythm GI: COMMON NORMALS: Soft to palpation PALPATION: Yes Soft to palpation : COMMON NORMALS: Yes no CVA tenderness BLADDER/KIDNEY EXAM: Yes no CVA tenderness Back/Pelvis: COMMON NORMALS: no CVA tenderness THORACIC SPINE/UPPER BACK: No thoracic spinal tenderness LUMBAR SPINE/LOWER BACK: Yes lumbar spinal tenderness Lumbar spinal tenderness location: L4 and L5 Extremity: COMMON NORMALS: normal to inspection Neuro: SENSORIUM/ORIENTATION: Yes alert Skin: RASHES: other (Senile purpura to the forearms) Course Vital Signs: Vital signs: Vital Signs Temperature 97.5 F L 07/06/22 18:12 Pulse Rate 88 07/06/22 18:12 Respiratory Rate 20 H 07/06/22 18:12 Blood Pressure 181/67 07/06/22 18:12 Pulse Oximetry 96 07/06/22 18:12 Oxygen Delivery Me thod 07/06/22 18:12 MDM - Extremity (Nontraumatic) Medical Decision Making 77-year-old female comes in with persistent lower back pain with radiation down the left lower extremity. Patient also complains of numbness in bilateral feet. Patient does have diabetes mellitus. Patient also has a history of chronic low back pain. Patient routinely takes hydrocodone for her pain. Patient cannot find any relief for her pain. Patient comes in today for persistent pain. Patient appears nontoxic. No acute distress is noted. Differential diagnosis includes but not limited to intervertebral disc disease, facet arthropathy, discitis, urinary tract infection. CT of the lumbar spine indicated degenerative changes without any signs of infection or other significant abnormality. CBC notes a mild leukocytosis at 10,000, CMP noted sodium 131, glucose 216, potassium 4.1. CRP and sed rate were unremarkable. Urinalysis did have some increase in white blood cells will await culture results for recommendations of antibiotic. Patient was given 10 mg of hydrocodone and 30 mg of Toradol with minimal to no relief of pain. Patient then was given 2 mg of Haldol p.o. for further pain relief. Encourage fluids rest and follow-up with primary care for further instructions. No changes were made in medications with recommendations for case management for referral to either pain management or orthopedic spine. Lab Data 07/06/22 17:45 07/06/22 17:45 Radiology Impressions Lum[address] Spine CT 07/06/22 17:22 IMPRESSION: There are degenerative changes as described above. No evidence for acute fracture. Laboratory Results WBC 10.4 10^3/uL (4.0-10.0) H 07/06/22 17:45 RBC 4.22 10^6/uL (4.1-5.3) 07/06/22 17:45 Hgb 12.9 g/dL (11.5-15.3) 07/06/22 17:45 Hct 39.3 % (37.0-47.0) 07/06/22 17:45 MCV 93.1 fl (81-99) 07/06/22 17:45 MCH 30.6 pg (28.0-34.0) 07/06/22 17:45 MCHC 32.8 g/dL (30.0-36.0) 07/06/22 17:45 RDW 12.7 % (12.1-15.1) 07/06/22 17:45 Plt Count 239 10^3/cmm (130-400) 07/06/22 17:45 MPV 9.2 fL (7.4-10.4) 07/06/22 17:45 Neut % (Auto) 73.7 % 07/06/22 17:45 Lymph % (Auto) 15.8 % 07/06/22 17:45 [place] % (Auto) 8.7 % 07/06/22 17:45 Eos % (Auto) 0.9 % 07/06/22 17:45 Baso % (Auto) 0.4 % 07/06/22 17:45 Neut # (Auto) 7.66 10^3/uL (1.8-7.7) 07/06/22 17:45 Lymph # (Auto) 1.6 10^3/uL (0.8-4.8) 07/06/22 17:45 [place] # (Auto) 0.9 10^3/uL (0.2-0.9) 07/06/22 17:45 Eos # (Auto) 0.1 10^3/uL (0.0-0.8) 07/06/22 17:45 Baso # (Auto) 0.0 10^3/uL (0.0-0.1) 07/06/22 17:45 Nucleated RBC % (auto) 0 % 07/06/22 17:45 Nucleated RBCs # 0.0 /100WBC 07/06/22 17:45 ESR 8 mm/hr (0-15) 07/06/22 17:45 Sodium 131 mmol/L (136-145) L 07/06/22 17:45 Potassium 4.1 mmol/L (3.5-5.1) 07/06/22 17:45 Chloride 91 mmol/L (98-107) L 07/06/22 17:45 Carbon Dioxide 29 mmol/L (22-29) 07/06/22 17:45 Anion Gap 15.1 (5-19) 07/06/22 17:45 BUN 19 mg/dL (8-23) 07/06/22 17:45 Creatinine 0.8 mg/dL (0.5-0.9) 07/06/22 17:45 GFR Calculation Not Reportable 07/06/22 17:45 Glucose 216 mg/dL (65-115) H 07/06/22 17:45 Calculated Osmolality 281 mOsm/kg (285-295) L 07/06/22 17:45 Calcium 9.9 mg/dL (8.5-10.5) 07/06/22 17:45 Total Bilirubin 0.4 mg/dL (0.15-1.2) 07/06/22 17:45 AST 21 U/L (0-32) 07/06/22 17:45 ALT 22 U/L (0-33) 07/06/22 17:45 Alkaline Phosphatase 151 U/L (35-105) H 07/06/22 17:45 C-Reactive Protein 3.0 mg/L (0.0-4.9) 07/06/22 17:45 Total Protein 7.0 g/dL (6.6-8.7) 07/06/22 17:45 Albumin 4.2 g/dL (3.5-5.2) 07/06/22 17:45 Globulin 2.8 g/dL (1.3-4.6) 07/06/22 17:45 Urine Color Yellow (Yellow) 07/06/22 18:27 Urine Appearance Clear (CLEAR) 07/06/22 18:27 Urine pH 7 (5-7) 07/06/22 18:27 Ur Specific [place] 1.005 (1.005-1.030) 07/06/22 18:27 Urine Protein Neg (Negative) 07/06/22 18:27 Urine Glucose (UA) Norm (Normal) 07/06/22 18: Urine Ketones Negative (Negative) 07/06/22 18:27 Urine Blood Neg (Negative) 07/06/22 18:27 Urine Nitrate Negative (Negative) 07/06/22 18:27 Urine Bilirubin Neg (Negative) 07/06/22 18:27 Urine Urobilinogen Neg mg/dL (Negative) 07/06/22 18:27 Ur Leukocyte Esterase 2+ (Negative) H 07/06/22 18:27 Urine RBC 0-4 /hpf (0-2) H 07/06/22 18:27 Urine WBC 25-40 /hpf (0-5) H 07/06/22 18:27 Ur Squamous Epith Cells 0-4 /hpf (0-5) H 07/06/22 18:27 Amorphous Sediment Not Reportable 07/06/22 18:27 Urine Bacteria None /hpf (NONE) 07/06/22 18:27 Discharge Plan Discharge Patient Disposition: Home Clinical Impression: Fibromyalgia Back pain, chronic Qualifiers: Back pain location: low back pain Back pain laterality: bilateral Sciatica presence: with sciatica Sciatica laterality: sciatica of right side Qualified Code(s): M54.41 - Lumbago with sciatica, right side Condition: Stable Prescriptions: No Action dicyclomine 10 mg capsule 10 mg PO QID lactulose 10 gram/15 mL solution 15 ml PO DAILY@12 polyethylene glycol 3350 [Miralax] 17 gram/dose powder 17 g PO DAILY chlorthalidone 25 mg tablet 25 mg PO DAILY Qty: 90 2RF isosorbide mononitrate 120 mg tablet extended release 24 hr 120 mg PO DAILY Qty: 90 3RF cholecalciferol (vitamin D3) 1,000 unit capsule 1,000 unit PO QPM cranberry 500 mg capsule 500 mg PO QPM Lactobacillus acidophilus [Acidophilus] Capsule 1 cap PO QAM ferrous sulfate 325 mg (65 mg iron) tablet 325 mg PO DAILY@12 magnesium oxide 400 mg (241.3 mg magnesium) tablet 500 mg PO DAILY@12 nitroglycerin 0.4 mg tablet, sublingual 0.4 mg sublingual Q5M PRN (Reason: chest pain) 30 Days Qty: 30 3RF Rx Instructions: until response; do not exceed 3 doses per episode citalopram 40 mg tablet 40 mg PO QAM Qty: 30 11RF insulin lispro [Humalog KwikPen Insulin] 100 unit/mL insulin pen 10 unit SUBCUT TID Qty: 30 3RF Rx Instructions: Inject 10 units subcut three times a day with meals. ranolazine 500 mg tablet extended release 12 hr 500 mg PO BID Qty: 180 3RF furosemide 20 mg tablet 60 mg PO DAILY potassium chloride 8 mEq capsule, extended release 24 meq PO DAILY (DME) FreeStyle Tor 2 Sensor Kit See Rx Instructions .MEDSUPPLY Qty: 3 3RF Rx Instructions: As directed (DME) FreeStyle Tor 2 [place] Misc See Rx Instructions .Route Qty: 1 0RF Rx Instructions: As directed esomeprazole magnesium 40 mg capsule,delayed release(DR/EC) 40 mg PO DAILY hydrocortisone 10 mg tablet 10 mg PO QID Qty: 36 0RF (DME) blood sugar diagnostic Strip See Rx Instructions .Route Qty: 400 3RF Rx Instructions: Check blood sugar 4 times a day. (DME) lancets [Comfort EZ Lancets] 21 gauge misc See Rx Instructions .Route Qty: 400 3RF Rx Instructions: As directed (DME) Easymax 15 test strips Strip See Rx Instructions .Route Qty: 400 3RF Rx Instructions: Check BS 4 times a day. clopidogrel 75 mg tablet 75 mg PO QPM Qty: 90 3RF (DME) Dexcom G6 Traffic Sign Supervisor Misc See Rx Instructions .Route Qty: 1 0RF Rx Instructions: Check BS 4-6 times a day. (DME) Dexcom G6 Sensor Device See Rx Instructions .Route Qty: 9 3RF Rx Instructions: Change every 10 days. (DME) Dexcom G6 Transmitter Device See Rx Instructions .Route Qty: 3 3RF Rx Instructions: Change every 90 days (DME) pen needle, diabetic [BD Ultra-Fine Mini Pen Needle] 31 gauge x 3/16 needle See Rx Instructions .ROUTE .COMPLEX Qty: 400 3RF Dose Instruction: USE DIRECTED Rx Instructions: QID valsartan 320 mg tablet 320 mg PO DAILY Qty: 90 3RF atorvastatin 40 mg tablet 40 mg PO BEDTIME albuterol sulfate 90 mcg/actuation HFA aerosol inhaler 2 puff INHALATION QID PRN (Reason: Shortness Of Breath) Tresiba FlexTouch U-200 200 unit/mL (3 mL) insulin pen 34 unit SUBCUT QPM hydrocodone-acetaminophen 7.5-325 mg tablet 1 tab PO Q6H PRN (Reason: Pain) vitamin E 1,000 unit Capsule 1,000 unit PO DAILY ascorbic acid (vitamin C) [Vitamin C] 500 mg Tablet,Chewable 500 mg PO DAILY@12 quetiapine [Seroquel] 50 mg tablet 50 mg PO BEDTIME ondansetron 4 mg tablet,disintegrating 4 mg PO Q8H PRN (Reason: nausea and vomiting) Qty: 7 0RF ketorolac 10 mg tablet 10 mg PO Q8H PRN (Reason: pain) 3 Days Qty: 9 0RF methocarbamol 1,000 mg tablet 1,000 mg PO Q8H Qty: 21 0RF Discharge Orders: Discharge ED (Routine); Ordered 07/06/22 Ordered By: Sawyer Tony Referrals: Arabella Orta MD [Primary Care Provider] - Discharge Diet: Usual diet Discharge Activity: Increase activity as tolerated Patient Instructions: Pain Management Activity Restrictions/Additional Instructions: Follow-up with primary care for further instructions. Case management will contact you regarding follow-up appointment with orthopedic spine/pain management for further treatment of chronic pain. Return to ER for worsening symptoms such as fever greater than 100.4, loss of bowel or bladder control, or new concerns. 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
[2022-07-06] MEDS: HYDROcodone-acetaminophen 10-325 mg Tablet 1 TAB PO (17:19)
--- NOTE | 2022-07-06 17:22 | CTR_ITS ---
PROCEDURE INFORMATION: Exam: CT Lumbar Spine Without Contrast Exam date and time: 07/06/2022 5:50 PM Age: 77 years old Clinical indication: Pain and injury or trauma; Fall; Blunt trauma (contusions or hematomas); Low back pain; Injury date: 01/08/2022; Additional info: Persistent worsening pain TECHNIQUE: Imaging protocol: Computed tomography of the lumbar spine without contrast. Radiation optimization: All CT scans at this facility use at least one of these dose optimization techniques: automated exposure control; mA and/or kV adjustment per patient size (includes targeted exams where dose is matched to clinical indication); or iterative reconstruction. Other protocol: This patient has received 3 known CTs and 0 known cardiac nuclear medicine studies in the 12 months prior to the current study. COMPARISON: CR (PELVIS, ) 07/05/2022 1:20 AM RADIATION DOSE METRICS: Total DLP (mGy-cm): 1096.7 FINDINGS: Bones/joints: Grade 1 degenerative anterolisthesis of L4 on L5. There are degenerative changes across the sacroiliac joints.There are degenerative changes throughout the visualized spine including marginal osteophyte formations, endplate degenerative changes, and facet arthropathy. Multilevel disc space narrowing. L1-L2: No significant disc bulge or herniation. No severe spinal canal stenosis. No significant neural foraminal narrowing. L2-L3: No significant disc bulge or herniation. No severe spinal canal stenosis. No significant neural foraminal narrowing. L3-L4: No significant disc bulge or herniation. No severe spinal canal stenosis. No significant neural foraminal narrowing. L4-L5: Minimal disc bulge, small posterior osteophytes, and severe facet arthropathy contribute to [id number] narrowing of the right neural foramen. The canal is within normal limits in caliber. L5-S1: There is a disc bulge with a possible superimposed midline/right paracentral protrusion, posterior osteophytes, and severe facet arthropathy contributing to mild narrowing of the left neural foramen. The canal is within normal limits in caliber. Soft tissues: Unremarkable. CT/CT lumbar spine wo con* [id number] IMPRESSION: There are degenerative changes as described above. No evidence for acute fracture.
[2022-07-06 17:49] LABS: Basophils % 0.4 %; Eosinophils # 0.1 10^3/uL (0.0-0.8); Eosinophils % 0.9 %; Hematocrit 39.3 % (37.0-47.0); Hemoglobin 12.9 g/dL (11.5-15.3); Lymphocytes # 1.6 10^3/uL (0.8-4.8); Lymphocytes % 15.8 %; Mean Corpuscular HGB Conc 32.8 g/dL (30.0-36.0); Mean Corpuscular Hemoglobin 30.6 pg (28.0-34.0); Mean Corpuscular Volume 93.1 fl (81-99); Mean Platelet Volume 9.2 fL (7.4-10.4); Monocytes # 0.9 10^3/uL (0.2-0.9); Monocytes % 8.7 %; Neutrophils # 7.66 10^3/uL (1.8-7.7); Neutrophils % 73.7 %; Nucleated Red Blood Cells % 0 %; Platelet Count 239 10^3/cmm (130-400); Red Blood Count 4.22 10^6/uL (4.1-5.3); Red Cell Distribution Width 12.7 % (12.1-15.1); White Blood Count 10.4 10^3/uL (4.0-10.0)
[2022-07-06] MEDS: ketorolac 30 mg/mL INJ IM (18:02)
[2022-07-06 18:10] LABS: Erythrocyte Sedimentation Rate 8 mm/hr (0-15)
[2022-07-06 18:12] VITALS: BP 181/67; PULSE 88; RESP 20; TEMP 36.4; O2SAT 96
[2022-07-06 18:16] LABS: Alanine Aminotransferase 22 U/L (0-33); Albumin Level 4.2 g/dL (3.5-5.2); Alkaline Phosphatase 151 U/L (35-105); Anion Gap 15.1 (5-19); Aspartate Amino Transferase 21 U/L (0-32); Blood Urea Nitrogen 19 mg/dL (8-23); Calcium 9.9 mg/dL (8.5-10.5); Carbon Dioxide 29 mmol/L (22-29); Chloride 91 mmol/L (98-107); Globulin 2.8 g/dL (1.3-4.6); Glucose 216 mg/dL (65-115); Osmolality Calculated 281 mOsm/kg (285-295); Potassium 4.1 mmol/L (3.5-5.1); Sodium 131 mmol/L (136-145); Total Bilirubin 0.4 mg/dL (0.15-1.2)
[2022-07-06 18:45] LABS: Add Urine Culture? Yes; Add Urine Microscopic? YES; Bilirubin Urine Neg (Negative); Blood Urine Neg (Negative); Glucose Urine UA Norm (Normal); Ketones Urine Negative (Negative); Leukocyte Esterase Urine 2+ (Negative); Nitrate Urine Negative (Negative); Protein Urine Neg (Negative); RBC Urine 0-4 /hpf (0-2); Specific Gravity, Urine 1.005 (1.005-1.030); Squamous Epithelial Cell Urine 0-4 /hpf (0-5); Urine Appearance Clear (CLEAR); Urine Color Yellow (Yellow); Urobilinogen Urine Neg (Negative); WBC Urine 25-40 /hpf (0-5); pH Urine 7 (5-7)
[2022-07-06] MEDS: haloperidol inj 5 mg/mL INJ 1 mL 2 MG IM (19:17)
--- NOTE | 2022-07-07 10:39 | DCPLANNER ---
Addendum entered by Parvin Alvarez 08/04/22 17:43: Patient had follow up appointment with ortho - patient did attend appointment. Addendum entered by Parvin Alvarez 07/08/22 11:21: Patient has a follow up appointment scheduled for , July 16, 2022 at 2:[address] Joya at ortho. Clinic will call patient with appointment information. Original Note: chiropractic practice manager had message to schedule a follow up appointment for patient with ortho. chiropractic practice manager sent patients information to the front office staff at ortho. Patients information will be printed and reviewed. Clinic will call patient with appointment information.
== END 2022-07-06 19:20 | disposition home or self-care (01) ==
PROVIDERS: Emergency Provider Nurse Practitioner Family; PCP Family Medicine
DX: M54.41 Lumbago with sciatica, right side (principal); M79.7 Fibromyalgia; Z79.4 Long term (current) use of insulin; Z79.02 Long term (current) use of antithrombotics/antiplatelets; I25.10 Atherosclerotic heart disease of native coronary artery without angina pectoris; I10 Essential (primary) hypertension; E78.5 Hyperlipidemia, unspecified
CPT/HCPCS: 36415; 72131; 80053; 81001; 85025; 85651; 86140; 87086; 96372; 99285; J1630; J1885

== ENCOUNTER → 2022-07-16 14:26 | Outpatient (BNVA) | payer MEDICARE, OTHER, SELFPAY | PROVIDERS: PCP Family Medicine; Visit Provider Orthopaedic Surgery | DX: M48.062 Spinal stenosis, lumbar region with neurogenic claudication (principal) | CPT/HCPCS: 99204 ==

== ENCOUNTER 2022-07-28 21:45 | Emergency (ER) | payer MEDICARE, OTHER, SELFPAY ==
[2022-07-28 21:47] VITALS: BP 201/72; PULSE 86; RESP 18; O2SAT 96
--- NOTE | 2022-07-28 21:52 | ED_ITS ---
HPI - Extremity Problem General: Chief complaint: Extremity Problem,Nontraumatic Stated complaint: hip pain Time Seen by Provider: 07/28/22 21:52 History of Present Illness: Ms. Berg is a 77-year-old lady with complex past medical history including chronic pain and right hip total arthroplasty presenting to the emergency department for atraumatic right hip pain. She reports symptoms started yesterday without known specific provoking event. She has had moderate to severe pain that is worse with movement. Denies new distal CMS changes. Denies infectious symptoms. No other specific changes in health, exacerbating, or alleviating factors identified. 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 Left axis deviation. Normal [place] and QRS duration. Intervertebral disc disorder with radiculopathy of lumbosacral region Psychiatric care Psychiatric care Recurrent UTI Status post left heart catheterization Surgical History History of colonoscopy (~2018) History of coronary artery stent placement History of right knee surgery S/P appendectomy S/P hernia repair S/P hip replacement S/P hysterectomy Family History Family/Other Diabetes Other Cancer Social History Smoking and tobacco status: never smoked Alcohol intake: never Household members: spouse Marital status: Current occupational status: retired History of recent travel: No Physical Exam Const: COMMON NORMALS: alert GENERAL APPEARANCE: cooperative and well developed HENMT: COMMON NORMALS: normocephalic and atraumatic HEAD & SCALP: normocephalic and atraumatic Eye: COMMON NORMALS: conjunctivae normal CONJUNCTIVA: Yes conjunctivae normal SCLERA: sclerae normal Neck/C-Spine: COMMON NORMALS: supple GENERAL: Yes trachea midline Resp: COMMON NORMALS: normal respiratory effort EFFORT & INSPECTION: Yes able to speak in complete sentences Cardio: COMMON NORMALS: regular rate and regular rhythm RATE: regular rate RHYTHM: regular rhythm GI: COMMON NORMALS: Soft to palpation PALPATION: Yes Soft to palpation and No Tenderness to palpation present (GI) PERCUSSION: normal to percussion Extremity: NARRATIVE EXTREMITY EXAM: Bilateral hip tenderness to palpation and range of motion, no evidence of open injury or overlying skin changes, distal CMS intact. GENERAL: Yes normal exam except as noted and No edema Neuro: COMMON NORMALS: moves all extremities SENSORIUM/ORIENTATION: Yes alert and No Orientation impaired Psych: COMMON NORMALS: mental status grossly normal and Normal thought process present THOUGHT PROCESS: Normal thought process present Course Vital Signs: Vital signs: Vital Signs Pulse Rate 86 07/28/22 23:44 Respiratory Rate 20 H 07/28/22 23:44 Blood Pressure 166/64 07/28/22 23:44 Pulse Oximetry 96 07/28/22 23:44 Oxygen Delivery Me thod 07/28/22 21:47 MDM - Extremity (Nontraumatic) Medical Decision Making 77-year-old lady presenting with atraumatic pain. Exam as above. Negative x-rays for fracture or evidence of hardware complication. Improved with treatment. Most likely etiology of patient symptoms is unclear cause of hip pain may be exacerbation of chronic pain. The results of ED evaluation were discussed with the patient including prescriptions and/or symptomatic cares (if applicable) including appropriate and responsible use, followup plan, and return precautions. The patient verbalized understanding and felt safe for discharge. Medical Records I reviewed the patient's medical records. Lab Data I reviewed the patient's lab results. Radiology Impressions Hip/Pelvis X-Ray 07/28/22 22:00 IMPRESSION: 1. Negative for acute abnormality. 2. Right hip arthroplasty changes. Discharge Plan Discharge Patient Disposition: Home Clinical Impression: Acute hip pain Condition: Stable Prescriptions: New oxycodone 5 mg tablet 5 mg PO Q4H PRN (Reason: pain) Qty: 10 0RF No Action dicyclomine 10 mg capsule 10 mg PO QID lactulose 10 gram/15 mL solution 15 ml PO DAILY@12 polyethylene glycol 3350 [Miralax] 17 gram/dose powder 17 g PO DAILY chlorthalidone 25 mg tablet 25 mg PO DAILY Qty: 90 2RF isosorbide mononitrate 120 mg tablet extended release 24 hr 120 mg PO DAILY Qty: 90 3RF cholecalciferol (vitamin D3) 1,000 unit capsule 1,000 unit PO QPM cranberry 500 mg capsule 500 mg PO QPM Lactobacillus acidophilus [Acidophilus] Capsule 1 cap PO QAM ferrous sulfate 325 mg (65 mg iron) tablet 325 mg PO DAILY@12 magnesium oxide 400 mg (241.3 mg magnesium) tablet 500 mg PO DAILY@12 nitroglycerin 0.4 mg tablet, sublingual 0.4 mg sublingual Q5M PRN (Reason: chest pain) 30 Days Qty: 30 3RF Rx Instructions: until response; do not exceed 3 doses per episode ranolazine 500 mg tablet extended release 12 hr 500 mg PO BID Qty: 180 3RF furosemide 20 mg tablet 60 mg PO DAILY citalopram 40 mg tablet 40 mg PO QAM Qty: 30 11RF quetiapine [Seroquel] 50 mg tablet 50 mg PO BEDTIME Qty: 30 11RF potassium chloride 8 mEq capsule, extended release 24 meq PO DAILY (DME) FreeStyle Tor 2 Sensor Kit See Rx Instructions .MEDSUPPLY Qty: 3 3RF Rx Instructions: As directed (DME) FreeStyle Tor 2 [place] Misc See Rx Instructions .Route Qty: 1 0RF Rx Instructions: As directed esomeprazole magnesium 40 mg capsule,delayed release(DR/EC) 40 mg PO DAILY hydrocortisone 10 mg tablet 10 mg PO QID Qty: 36 0RF methocarbamol 500 mg tablet 500 mg PO TID Qty: 42 0RF (DME) blood sugar diagnostic Strip See Rx Instructions .Route Qty: 400 3RF Rx Instructions: Check blood sugar 4 times a day. (DME) lancets [Comfort EZ Lancets] 21 gauge misc See Rx Instructions .Route Qty: 400 3RF Rx Instructions: As directed (DME) Easymax 15 test strips Strip See Rx Instructions .Route Qty: 400 3RF Rx Instructions: Check BS 4 times a day. clopidogrel 75 mg tablet 75 mg PO QPM Qty: 90 3RF (DME) Dexcom G6 It Architecture Consultant Misc See Rx Instructions .Route Qty: 1 0RF Rx Instructions: Check BS 4-6 times a day. (DME) Dexcom G6 Sensor Device See Rx Instructions .Route Qty: 9 3RF Rx Instructions: Change every 10 days. (DME) Dexcom G6 Transmitter Device See Rx Instructions .Route Qty: 3 3RF Rx Instructions: Change every 90 days (DME) pen needle, diabetic [BD Ultra-Fine Mini Pen Needle] 31 gauge x 3/16 needle See Rx Instructions .ROUTE .COMPLEX Qty: 400 3RF Dose Instruction: USE DIRECTED Rx Instructions: QID valsartan 320 mg tablet 320 mg PO DAILY Qty: 90 3RF insulin lispro [Humalog KwikPen Insulin] 100 unit/mL insulin pen See Rx Instructions SUBCUT TID Qty: 30 3RF Rx Instructions: 14 to 16 units subcutaneously three times daily; with meals. atorvastatin 40 mg tablet 40 mg PO BEDTIME albuterol sulfate 90 mcg/actuation HFA aerosol inhaler 2 puff INHALATION QID PRN (Reason: Shortness Of Breath) Tresiba FlexTouch U-200 200 unit/mL (3 mL) insulin pen 34 unit SUBCUT QPM hydrocodone-acetaminophen 7.5-325 mg tablet 1 tab PO Q6H PRN (Reason: Pain) vitamin E 1,000 unit Capsule 1,000 unit PO DAILY ascorbic acid (vitamin C) [Vitamin C] 500 mg Tablet,Chewable 500 mg PO DAILY@12 ondansetron 4 mg tablet,disintegrating 4 mg PO Q8H PRN (Reason: nausea and vomiting) Qty: 7 0RF methocarbamol 1,000 mg tablet 1,000 mg PO Q8H Qty: 21 0RF Discharge Orders: Discharge ED (Routine); Ordered 07/28/22 Ordered By: Ha Desouza Referrals: Arabella Orta MD [Primary Care Provider] - Discharge Diet: Usual diet Discharge Activity: Increase activity as tolerated Patient Instructions: Hip Pain (ED), Opioid Safety Activity Restrictions/Additional Instructions: Thank you for visiting the emergency department. You were seen and evaluated for hip pain. The exact cause of your hip pain is unclear. I will prescribe additional doses of pain medication, do not take these at the same time as your hydrocodone, use them cautiously as combinations of opioids can cause oversedation and other potentially deadly complications of medication reactions. You may use qouw-hba-meysved medications such as acetaminophen and ibuprofen for pain however please do not exceed the daily recommended dosage as listed on the packaging and please keep in mind that many namebrand medications contain the same active ingredients. Please avoid these medications if previously instructed to do so by another physician due to other underlying medical condition. Please follow-up with your primary care provider. Return to the emergency department for uncontrolled symptoms or anything else that you are concerned about and feel needs emergency department evaluation. 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
--- NOTE | 2022-07-28 22:00 | XRR_ITS ---
PROCEDURE INFORMATION: Exam: XR Right Hip Exam date and time: 07/28/2022 10:07 PM Age: 77 years old Clinical indication: Hip pain; Right hip; Prior surgery; Additional info: Nontraumatic hip pain TECHNIQUE: Imaging protocol: Radiologic exam of the right hip. Views: 1 view hip with pelvis when performed. COMPARISON: CT abdomen pelvis wo con [id number] 04/24/2022 7:05 PM FINDINGS: Bones/joints: Right hip arthroplasty changes. Soft tissues: Unremarkable. XR/XR hip RT 2-3V wo/w pel* [id number] IMPRESSION: 1. Negative for acute abnormality. 2. Right hip arthroplasty changes.
[2022-07-28 22:29] VITALS: RESP 20
[2022-07-28] MEDS: ketorolac 30 mg/mL INJ 15 MG IVP (22:29)
[2022-07-28] MEDS: fentaNYL 50 mcg/mL INJ 2mL IVP (22:29)
[2022-07-28 23:23] VITALS: BP 155/52
[2022-07-28] MEDS: methocarbamol 750 mg Tablet PO (23:25)
[2022-07-28 23:44] VITALS: BP 166/64; PULSE 86; RESP 20; O2SAT 96
== END 2022-07-28 23:33 | disposition home or self-care (01) ==
PROVIDERS: Emergency Provider Emergency Medicine; PCP Family Medicine
DX: M25.551 Pain in right hip (principal); Z79.02 Long term (current) use of antithrombotics/antiplatelets; Z79.4 Long term (current) use of insulin; I25.10 Atherosclerotic heart disease of native coronary artery without angina pectoris; I10 Essential (primary) hypertension; E78.5 Hyperlipidemia, unspecified; Z96.641 Presence of right artificial hip joint
CPT/HCPCS: 73502; 96374; 96375; 99284; J1885; J3010

== ENCOUNTER → 2022-07-30 15:20 | Outpatient (BNVA) | payer MEDICARE, OTHER, SELFPAY | PROVIDERS: PCP Family Medicine; Visit Provider Physician Assistant | DX: M51.27 Other intervertebral disc displacement, lumbosacral region (principal) | CPT/HCPCS: 99213 ==

== ENCOUNTER 2022-08-04 20:00 | Outpatient (CLI) | payer MEDICARE, OTHER, SELFPAY | END 2022-08-04 20:01 | disposition home or self-care (01) | LOC: SLEEP 08-05 05:12 | PROVIDERS: PCP Family Medicine; Visit Provider Family Medicine | DX: G47.33 Obstructive sleep apnea (adult) (pediatric) (principal) | CPT/HCPCS: 95811 ==

== ENCOUNTER → 2022-08-13 08:29 | Outpatient (BNVA) | payer MEDICARE, OTHER, SELFPAY | PROVIDERS: PCP Family Medicine; Visit Provider Anesthesiology Pain Medicine | DX: G62.89 Other specified polyneuropathies (principal); M48.062 Spinal stenosis, lumbar region with neurogenic claudication; M51.27 Other intervertebral disc displacement, lumbosacral region; M47.816 Spondylosis without myelopathy or radiculopathy, lumbar region; M51.17 Intervertebral disc disorders with radiculopathy, lumbosacral region | CPT/HCPCS: 99205 ==

== ENCOUNTER 2022-08-25 11:33 | Outpatient (CLI) | payer MEDICARE, OTHER, SELFPAY ==
[2022-08-25 12:31] LABS: Alanine Aminotransferase 18 U/L (0-33); Alkaline Phosphatase 157 U/L (35-105); Anion Gap 14.4 (5-19); Aspartate Amino Transferase 14 U/L (0-32); Blood Urea Nitrogen 14 mg/dL (8-23); Calcium 9.6 mg/dL (8.5-10.5); Carbon Dioxide 29 mmol/L (22-29); Chloride 88 mmol/L (98-107); Chol HDL Ratio 2.15 mg/dL (0.0-4.40); Cholesterol 140 mg/dL (0-200); Globulin 3.2 g/dL (1.3-4.6); Glucose 253 mg/dL (65-115); HDL Cholesterol 65 mg/dL (60-100); LDL Cholesterol Calculated 41 mg/dL (50-129); LDL HDL Ratio 0.63 RATIO (0.00-3.22); Osmolality Calculated 273 mOsm/kg (285-295); Potassium 4.4 mmol/L (3.5-5.1); Sodium 127 mmol/L (136-145); Total Bilirubin 0.3 mg/dL (0.15-1.2); Total Protein 7.2 g/dL (6.6-8.7); Triglycerides 170 mg/dL (0-150)
== END 2022-08-25 11:34 | disposition home or self-care (01) ==
LOC: LAB 11:41
PROVIDERS: PCP Family Medicine; Visit Provider Internal Medicine
DX: E86.0 Dehydration (principal); E78.5 Hyperlipidemia, unspecified; K11.7 Disturbances of salivary secretion; E16.2 Hypoglycemia, unspecified; I25.10 Atherosclerotic heart disease of native coronary artery without angina pectoris
CPT/HCPCS: 36415; 80053; 80061

== ENCOUNTER 2022-08-27 12:44 | Outpatient (CLI) | payer MEDICARE, OTHER, SELFPAY ==
[2022-08-27 13:59] LABS: Alanine Aminotransferase 18 U/L (0-33); Alkaline Phosphatase 136 U/L (35-105); Aspartate Amino Transferase 14 U/L (0-32); Blood Urea Nitrogen 11 mg/dL (8-23); Calcium 9.7 mg/dL (8.5-10.5); Carbon Dioxide 29 mmol/L (22-29); Chloride 91 mmol/L (98-107); Chol HDL Ratio 2.46 mg/dL (0.0-4.40); Cholesterol 133 mg/dL (0-200); Globulin 2.7 g/dL (1.3-4.6); Glucose 169 mg/dL (65-115); HDL Cholesterol 54 mg/dL (60-100); LDL Cholesterol Calculated 58 mg/dL (50-129); LDL HDL Ratio 1.07 RATIO (0.00-3.22); Osmolality Calculated 271 mOsm/kg (285-295); Sodium 129 mmol/L (136-145); Total Bilirubin 0.6 mg/dL (0.15-1.2); Total Protein 6.7 g/dL (6.6-8.7); Triglycerides 105 mg/dL (0-150)
== END 2022-08-27 12:45 | disposition home or self-care (01) ==
LOC: LAB 12:49
PROVIDERS: PCP Family Medicine; Visit Provider Internal Medicine
DX: E11.65 Type 2 diabetes mellitus with hyperglycemia (principal); E16.2 Hypoglycemia, unspecified; E78.5 Hyperlipidemia, unspecified; K11.7 Disturbances of salivary secretion; E86.0 Dehydration; Z79.4 Long term (current) use of insulin
CPT/HCPCS: 36415; 64483; 80053; 80061; 99214

== ENCOUNTER 2022-09-09 14:57 | Outpatient (CLI) | payer MEDICARE, OTHER, SELFPAY ==
--- NOTE | 2022-09-09 15:11 | CT_ITS ---
WS: [id number] CT ANGIOGRAPHY abdomen and pelvis. HISTORY: CHRONIC ABD PAIN, SIG CAD, ? ISCHEMIA TECHNIQUE: CT angiogram is performed during IV injection. Reformation images reviewed. All CT scans a [employer] use at least one of these dose optimization techniques: automated exposure contro l; mA and/or kV adjustment per patient size (includes targeted exams where dose is matched to clinica l indication); or iterative reconstruction. CONTRAST: Omnipaque 350; 100 mL IV. DLP: 974.59 mGy.cm COMPARISON: 04/24/2022 Minimal linear atelectasis LEFT lower lobe. Heart size is normal. There is very mild enlargement of t he LEFT atrium. Small hiatal hernia. Abdominal aorta: Good contrast opacification of the abdominal aorta into the iliac arteries. Calcified and noncalcified plaque moderately distributed throughout the aorta. Very small caliber but patent distal aorta. Maximum minimum diameter of 8.9 mm. No aneurysm. Mild atherosclerosis celiac ax is but there is no high-grade stenosis. There is extensive heavy calcification in the splenic artery. SMA is patent with no high-grade stenosis. Main renal arteries are patent. Small amount of calcified plaque at the origins. No accessory renal arteries. [place] is also patent. Moderate calcification continues into the common iliac arteries. Internal and external iliac arteries are patent. There is moderate plaque burden in the internal iliac arteries. Distally components of s tenosis or maybe even occlusions. External iliac arteries are patent. Loss of the normal contrast col umn. Distally. There is also artifact from patient's bilateral hip prostheses obscuring the arteries at the level of the hips. Hepatic and splenic granulomata. Prior cholecystectomy. Marked fatty replacement and atrophy of the p ancreas. No bile duct dilatation. No adrenal mass. Kidneys are very mildly atrophic but there is norm al enhancement. Normally distended stomach. No small bowel obstruction. Moderate diffuse constipation throughout the colon. Prior appendectomy. Mild scattered diverticular burden in the sigmoid colon. No ascites and no adenopathy. Marked thinning of the ventral abdominal wall due to increased visceral fat. Mild cellulitis along the inferior abdominal wall subcutaneous tissue. CT/CT angio abdomen pelvis [id number] IMPRESSION: 1. No abdominal aortic aneurysm. 2. Extensive, moderate plaque, calcified and noncalcified throughout the aorta . No high-grade stenosis. 3. Mesenteric arteries are patent. There is plaque greatest within the splenic artery but no high-grade occlusions. 4. Atherosclerotic plaque continues into the iliac arteries with no high-grade obstruction. 5. Prior appendectomy and cholecystectomy. 6. Diffuse moderate constipation. 7. A few distal sigmoid diverticula without acute diverticulitis. 8. Normally distended urinary bladder.
[2022-09-09] MEDS: iohexol 350 mg/mL 500 mL Btl (per mL) IV (15:34)
== END 2022-09-09 14:58 | disposition home or self-care (01) ==
LOC: RAD 15:04
PROVIDERS: PCP Family Medicine; Visit Provider Family Medicine
DX: R10.9 Unspecified abdominal pain (principal); G89.29 Other chronic pain; I25.10 Atherosclerotic heart disease of native coronary artery without angina pectoris
CPT/HCPCS: 74174; Q9967

== ENCOUNTER → 2022-09-14 10:34 | Outpatient (BNVA) | payer MEDICARE, OTHER, SELFPAY | PROVIDERS: PCP Family Medicine; Visit Provider Internal Medicine Pulmonary Disease | DX: G47.33 Obstructive sleep apnea (adult) (pediatric) (principal); I25.10 Atherosclerotic heart disease of native coronary artery without angina pectoris; R06.09 Other forms of dyspnea; M54.9 Dorsalgia, unspecified; E27.1 Primary adrenocortical insufficiency; E66.01 Morbid (severe) obesity due to excess calories; Z68.37 Body mass index [BMI] 37.0-37.9, adult; Z79.899 Other long term (current) drug therapy; Z95.5 Presence of coronary angioplasty implant and graft | CPT/HCPCS: 99204 ==

== ENCOUNTER 2022-09-24 01:10 | Emergency (ER) | payer MEDICARE, OTHER, SELFPAY ==
[2022-09-24 01:11] VITALS: BP 177/67; PULSE 82; RESP 20; TEMP 36.4; O2SAT 100; BMI 37.4
--- NOTE | 2022-09-24 01:19 | XRR_ITS ---
PROCEDURE INFORMATION: Exam: XR Lumbosacral Spine Exam date and time: 09/24/2022 1:26 AM Age: 77 years old Clinical indication: Prior surgery; Surgery type: Bilat juan; Patient HX: C/O low back pain. No injury. TECHNIQUE: Imaging protocol: Radiologic exam of the lumbosacral spine. Views: 2 or 3 views. COMPARISON: CR (PELVIS, ) 07/28/2022 10:07 PM FINDINGS: Bones/joints: Bilateral hip arthroplasties. No fracture noted. Moderate diffuse lumbar degenerative change. Soft tissues: Unremarkable. Vasculature: Advanced diffuse vascular calcification noted. XR/XR lumbar spine 2-3V* [id number] IMPRESSION: Chronic findings above, negative for acute fracture.
--- NOTE | 2022-09-24 01:19 | XRR_ITS ---
PROCEDURE INFORMATION: Exam: XR Left Hip Exam date and time: 09/24/2022 1:26 AM Age: 77 years old Clinical indication: Prior surgery; Surgery type: [place]; Patient HX: Left hip pain. No injury. TECHNIQUE: Imaging protocol: Radiologic exam of the left hip. Views: 2 or 3 views hip with pelvis when performed. COMPARISON: CT angio abdomen pelvis [id number] 09/09/2022 3:33 PM FINDINGS: Bones/joints: Left hip arthroplasty. No fracture noted. Soft tissues: Unremarkable. XR/XR hip LT 2-3V wo/w pel* [id number] IMPRESSION: No acute findings.
--- NOTE | 2022-09-24 01:20 | ED_ITS ---
HPI - General Adult General: Chief complaint: General Medical Stated complaint: LEG PAIN Time Seen by Provider: 09/24/22 01:16 Source: patient and EMS Mode of arrival: EMS Limitations: no limitations History of Present Illness: 77-year-old female with a history of chronic back pain chronic hip pain has been seen here multiple times that states tonight her pain was worse than normal states that her pain is always there but tonight she states it was hurting her to walk. She denies any new injuries denies any fevers denies any bowel or bladder incontinence states pain is all in her left hip no radiation. 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 Left axis deviation. Normal [place] and QRS duration. Intervertebral disc disorder with radiculopathy of lumbosacral region Psychiatric care Psychiatric care Recurrent UTI Status post left heart catheterization Surgical History History of colonoscopy (~2018) History of coronary artery stent placement History of right knee surgery S/P appendectomy S/P hernia repair S/P hip replacement S/P hysterectomy Family History Family/Other Diabetes Other Cancer Social History Smoking and tobacco status: never smoked Alcohol intake: never Substance/Drug Use: never Household members: spouse Marital status: Current occupational status: retired Physical Exam Const: COMMON NORMALS: no acute distress, patient oriented x3 and healthy appearing HENMT: COMMON NORMALS: normocephalic and atraumatic HEAD & SCALP: normocephalic and atraumatic Eye: COMMON NORMALS: conjunctivae normal CONJUNCTIVA: Yes conjunctivae normal Neck/C-Spine: COMMON NORMALS: supple Chest: COMMONS NORMALS: normal inspection of the chest and normal palpation of entire chest wall Resp: COMMON NORMALS: normal respiratory effort, No retractions, No use of accessory muscles and clear to auscultation bilaterally AUSCULTATION: clear to auscultation bilaterally Cardio: COMMON NORMALS: regular rate, regular rhythm and No murmurs present (Cardio) RATE: regular rate RHYTHM: regular rhythm GI: COMMON NORMALS: Normal to inspection, nondistended, normoactive bowel sounds present, Soft to palpation, non-tender and no masses PALPATION: Yes Soft to palpation Extremity: COMMON NORMALS: normal to inspection and full ROM Neuro: COMMON NORMALS: patient oriented x3, moves all extremities and no focal motor deficits Psych: COMMON NORMALS: mental status grossly normal, Normal thought process present and cooperative THOUGHT PROCESS: Normal thought process present Skin: COMMON NORMALS: no rashes or lesions noted and no wounds GENERAL SKIN EXAM: no rashes or lesions noted Course Vital Signs: Vital signs: Vital Signs Temperature 97.6 F 09/24/22 01:11 Pulse Rate 74 09/24/22 02:15 Respiratory Rate 20 H 09/24/22 02:15 Blood Pressure 153/61 09/24/22 02:15 Pulse Oximetry 98 09/24/22 02:15 [facility] - General Adult Medical Decision Making Patient presents here with left hip pain is chronic in nature x-ray here shows no acute abnormalities no signs of spinal cord compression her pain has improved here she is stable for discharge she is to follow-up with PCP and return if worsening. Medical Records I reviewed the patient's medical records. Lab Data I reviewed the patient's lab results. Discharge Plan Discharge Patient Disposition: Home Clinical Impression: Chronic left hip pain Condition: Stable Prescriptions: No Action dicyclomine 10 mg capsule 10 mg PO QID lactulose 10 gram/15 mL solution 15 ml PO DAILY@12 polyethylene glycol 3350 [Miralax] 17 gram/dose powder 17 g PO DAILY chlorthalidone 25 mg tablet 25 mg PO DAILY Qty: 90 2RF isosorbide mononitrate 120 mg tablet extended release 24 hr 120 mg PO DAILY Qty: 90 3RF cholecalciferol (vitamin D3) 1,000 unit capsule 1,000 unit PO QPM cranberry 500 mg capsule 500 mg PO QPM Lactobacillus acidophilus [Acidophilus] Capsule 1 cap PO QAM ferrous sulfate 325 mg (65 mg iron) tablet 325 mg PO DAILY@12 magnesium oxide 400 mg (241.3 mg magnesium) tablet 500 mg PO DAILY@12 nitroglycerin 0.4 mg tablet, sublingual 0.4 mg sublingual Q5M PRN (Reason: chest pain) 30 Days Qty: 30 3RF Rx Instructions: until response; do not exceed 3 doses per episode ranolazine 500 mg tablet extended release 12 hr 500 mg PO BID Qty: 180 3RF furosemide 20 mg tablet 60 mg PO DAILY hydrocortisone 10 mg tablet 10 mg PO QID Qty: 360 0RF citalopram 40 mg tablet 40 mg PO QAM Qty: 30 11RF quetiapine [Seroquel] 50 mg tablet 50 mg PO BEDTIME Qty: 30 11RF potassium chloride 8 mEq capsule, extended release 24 meq PO DAILY (DME) FreeStyle Tor 2 Sensor Kit See Rx Instructions .MEDSUPPLY Qty: 3 3RF Rx Instructions: As directed (DME) FreeStyle Tor 2 [place] Misc See Rx Instructions .Route Qty: 1 0RF Rx Instructions: As directed esomeprazole magnesium 40 mg capsule,delayed release(DR/EC) 40 mg PO DAILY methocarbamol 500 mg tablet 500 mg PO TID Qty: 42 0RF (DME) blood sugar diagnostic Strip See Rx Instructions .Route Qty: 400 3RF Rx Instructions: Check blood sugar 4 times a day. (DME) lancets [Comfort EZ Lancets] 21 gauge misc See Rx Instructions .Route Qty: 400 3RF Rx Instructions: As directed (DME) Easymax 15 test strips Strip See Rx Instructions .Route Qty: 400 3RF Rx Instructions: Check BS 4 times a day. clopidogrel 75 mg tablet 75 mg PO QPM Qty: 90 3RF (DME) Dexcom G6 Whipped Topping Supervisor Misc See Rx Instructions .Route Qty: 1 0RF Rx Instructions: Check BS 4-6 times a day. (DME) Dexcom G6 Sensor Device See Rx Instructions .Route Qty: 9 3RF Rx Instructions: Change every 10 days. (DME) Dexcom G6 Transmitter Device See Rx Instructions .Route Qty: 3 3RF Rx Instructions: Change every 90 days (DME) pen needle, diabetic [BD Ultra-Fine Mini Pen Needle] 31 gauge x 3/16 needle See Rx Instructions .ROUTE .COMPLEX Qty: 400 3RF Dose Instruction: USE DIRECTED Rx Instructions: QID valsartan 320 mg tablet 320 mg PO DAILY Qty: 90 3RF insulin lispro [Humalog KwikPen Insulin] 100 unit/mL insulin pen See Rx Instructions SUBCUT TID Qty: 30 3RF Rx Instructions: 14 to 16 units subcutaneously three times daily; with meals. bupivacaine (PF) 0.25 % (2.5 mg/mL) solution 2 ml Infiltration ONCE Qty: 1 0RF atorvastatin 40 mg tablet 40 mg PO BEDTIME albuterol sulfate 90 mcg/actuation HFA aerosol inhaler 2 puff INHALATION QID PRN (Reason: Shortness Of Breath) Tresiba FlexTouch U-200 200 unit/mL (3 mL) insulin pen 34 unit SUBCUT QPM hydrocodone-acetaminophen 7.5-325 mg tablet 1 tab PO Q6H PRN (Reason: Pain) vitamin E 1,000 unit Capsule 1,000 unit PO DAILY ascorbic acid (vitamin C) [Vitamin C] 500 mg Tablet,Chewable 500 mg PO DAILY@12 ondansetron 4 mg tablet,disintegrating 4 mg PO Q8H PRN (Reason: nausea and vomiting) Qty: 7 0RF methocarbamol 1,000 mg tablet 1,000 mg PO Q8H Qty: 21 0RF oxycodone 5 mg tablet 5 mg PO Q4H PRN (Reason: pain) Qty: 10 0RF Discharge Orders: Discharge ED (Routine); Ordered 09/24/22 Ordered By: Enrico Camejo Referrals: Arabella Orta MD [Primary Care Provider] - 1-3 days Discharge Diet: Advance as tolerated Discharge Activity: Resume usual activity Patient Instructions: Hip Pain (ED) Coding Level of Care Code 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
[2022-09-24] MEDS: dexamethasone 10 mg/mL INJ IM (01:27)
[2022-09-24] MEDS: ketorolac 30 mg/mL INJ IM (01:27)
[2022-09-24 01:30] VITALS: BP 160/73
[2022-09-24] MEDS: HYDROcodone-acetaminophen 5-325 mg Tablet 1 TAB PO (02:10)
[2022-09-24 02:15] VITALS: BP 153/61; PULSE 74; RESP 20; O2SAT 98
== END 2022-09-24 02:16 | disposition home or self-care (01) ==
PROVIDERS: Emergency Provider Emergency Medicine; PCP Family Medicine
DX: G89.29 Other chronic pain (principal); M25.552 Pain in left hip; Z79.02 Long term (current) use of antithrombotics/antiplatelets; I25.10 Atherosclerotic heart disease of native coronary artery without angina pectoris; I10 Essential (primary) hypertension; E78.5 Hyperlipidemia, unspecified; Z79.4 Long term (current) use of insulin
CPT/HCPCS: 72100; 73502; 96372; 99284; J1100; J1885

== ENCOUNTER → 2022-09-29 14:06 | Outpatient (BNVA) | payer MEDICARE, OTHER, SELFPAY | PROVIDERS: PCP Family Medicine; Visit Provider Surgery | DX: Z12.11 Encounter for screening for malignant neoplasm of colon (principal) | CPT/HCPCS: 99024; 99213 ==

== ENCOUNTER → 2022-10-06 08:42 | Outpatient (BNVA) | payer MEDICARE, OTHER, SELFPAY | PROVIDERS: PCP Family Medicine; Visit Provider Internal Medicine | DX: E11.649 Type 2 diabetes mellitus with hypoglycemia without coma (principal); E78.5 Hyperlipidemia, unspecified; G47.33 Obstructive sleep apnea (adult) (pediatric); Z79.4 Long term (current) use of insulin | CPT/HCPCS: 99214 ==

== ENCOUNTER 2022-10-24 20:43 | Emergency (ER) | payer MEDICARE, OTHER, SELFPAY ==
[2022-10-24] VITALS (8 sets, daily range): BP systolic 162–185; BP diastolic 56–86; PULSE 81–93; RESP 15–26; TEMP 36.6; O2SAT 93–99; BMI 41.5
--- NOTE | 2022-10-24 21:06 | CTR_ITS ---
PROCEDURE INFORMATION: Exam: CT Lumbar Spine Without Contrast Exam date and time: 10/24/2022 9:34 PM Age: 77 years old Clinical indication: Injury or trauma; Fall; Blunt trauma (contusions or hematomas); Patient HX: Patient fell backwards onto back at home. C/O mid/lower back and bilat hip pain. ; Additional info: Fall back pain TECHNIQUE: Imaging protocol: Computed tomography of the lumbar spine without contrast. Radiation optimization: All CT scans at this facility use at least one of these dose optimization techniques: automated exposure control; mA and/or kV adjustment per patient size (includes targeted exams where dose is matched to clinical indication); or iterative reconstruction. REPORTING DATA: Count of CT and Cardiac NM exams in prior 12 months: This patient has received 4 known CTs and 0 known cardiac nuclear medicine studies in the 12 months prior to the current study. COMPARISON: MR lumbar spine wo con* [id number] 07/14/2022 8:50 AM RADIATION DOSE METRICS: Total DLP (mGy-cm): 1401.93 FINDINGS: Bones/joints: Diffuse demineralization of the bones. The vertebral body stature is maintained. No fracture. Mild anterior degenerative subluxation of L4 on L5. Degenerative changes in the facets, greatest at L3-L4 and L4-L5. L1-L2: No significant disc bulge or herniation. No severe spinal canal stenosis. No significant neural foraminal narrowing. L2-L3: Mild circumferential disc bulge. No foraminal stenosis. Mild central canal stenosis. L3-L4: Mild circumferential disc bulge. Mild left foraminal stenosis. No right foraminal stenosis. Mild central canal stenosis. L4-L5: Mild circumferential disc bulge. Moderate bilateral foraminal stenosis. No central canal stenosis. L5-S1: Small posterior disc bulge. Mild left bony foraminal stenosis. No right foraminal stenosis. No central canal stenosis. Stomach and bowel: Diverticulosis of the colon. Vasculature: Arterial calcifications. Soft tissues: Lumbar subcutaneous soft tissue edema. CT/CT lumbar spine wo con* [id number] IMPRESSION: 1. No acute findings. 2. Mild degenerative changes as described.
--- NOTE | 2022-10-24 21:06 | CTR_ITS ---
PROCEDURE INFORMATION: Exam: CT Thoracic Spine Without Contrast Exam date and time: 10/24/2022 9:31 PM Age: 77 years old Clinical indication: Injury or trauma; Fall; Blunt trauma (contusions or hematomas); Patient HX: Patient fell backwards onto back at home. C/O mid/lower back and bilat hip pain. ; Additional info: Fall back pain TECHNIQUE: Imaging protocol: Computed tomography of the thoracic spine without contrast. Radiation optimization: All CT scans at this facility use at least one of these dose optimization techniques: automated exposure control; mA and/or kV adjustment per patient size (includes targeted exams where dose is matched to clinical indication); or iterative reconstruction. REPORTING DATA: Count of CT and Cardiac NM exams in prior 12 months: This patient has received 4 known CTs and 0 known cardiac nuclear medicine studies in the 12 months prior to the current study. COMPARISON: MR lumbar spine wo con* [id number] 07/14/2022 8:50 AM RADIATION DOSE METRICS: Total DLP (mGy-cm): 1098.01 FINDINGS: Bones/joints: Mild rightward curvature of the thoracic spine. Mild T4 compression, age indeterminate. Mild degenerative endplate changes throughout the thoracic spine. 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 The facets are intact with mild degenerative changes. T1-T2: No significant disc bulge or herniation. No severe spinal canal stenosis. No significant neural foraminal narrowing. T2-T3: No significant disc bulge or herniation. No severe spinal canal stenosis. No significant neural foraminal narrowing. T3-T4: No significant disc bulge or herniation. No severe spinal canal stenosis. No significant neural foraminal narrowing. T4-T5: No significant disc bulge or herniation. No severe spinal canal stenosis. No significant neural foraminal narrowing. T5-T6: No significant disc bulge or herniation. No severe spinal canal stenosis. No significant neural foraminal narrowing. T6-T7: No significant disc bulge or herniation. No severe spinal canal stenosis. No significant neural foraminal narrowing. T7-T8: No significant disc bulge or herniation. No severe spinal canal stenosis. No significant neural foraminal narrowing. T8-T9: Small posterior disc bulge. Mild central canal stenosis. No foraminal stenosis. T9-T10: Small posterior disc bulge: Mild central canal stenosis. No foraminal stenosis. T10-T11: No significant disc bulge or herniation. No severe spinal canal stenosis. No significant neural foraminal narrowing. T11-T12: Hypertrophic spur arising from the right T11-12 facet which contributes to moderate-severe central canal stenosis. T12-L1: No significant disc bulge or herniation. No severe spinal canal stenosis. No significant neural foraminal narrowing. CT/CT thoracic spin wo con* [id number] IMPRESSION: 1. Age indeterminate mild T4 compression fracture. 2. Hypertrophic spurring in the right T11-12 facet, contributing to moderate-severe central canal stenosis.
--- NOTE | 2022-10-24 21:08 | CTR_ITS ---
PROCEDURE INFORMATION: Exam: CT Pelvis Without Contrast; Skeletal Exam date and time: 10/24/2022 9:36 PM Age: 77 years old Clinical indication: Injury or trauma; Fall; Blunt trauma (contusions or hematomas); Bilateral; Prior surgery; Surgery date: 6+ months; Surgery type: Bilat juan; Patient HX: Patient fell backwards onto back at home. C/O mid/lower back and bilat hip pain. ; Additional info: Fall pelvis pain TECHNIQUE: Imaging protocol: Computed tomography of the pelvis without contrast. Exam focused on the skeleton. Radiation optimization: All CT scans at this facility use at least one of these dose optimization techniques: automated exposure control; mA and/or kV adjustment per patient size (includes targeted exams where dose is matched to clinical indication); or iterative reconstruction. REPORTING DATA: Count of CT and Cardiac NM exams in prior 12 months: This patient has received 4 known CTs and 0 known cardiac nuclear medicine studies in the 12 months prior to the current study. COMPARISON: CT angio abdomen pelvis [id number] 09/09/2022 3:33 PM RADIATION DOSE METRICS: Total DLP (mGy-cm): 769.66 FINDINGS: Stomach and bowel: Diverticulosis of the colon. Reproductive: The uterus and ovaries are absent. Bones/joints: Bilateral hip arthroplasties. The bones and hardware appear intact and normal alignment. No fracture visualized. Soft tissues: Lumbar posterior subcutaneous soft tissue edema. Subcutaneous soft tissue edema and skin thickening in the lower anterior abdominal wall. Severe diastasis recti. CT/CT pelvis [facility] [id number] IMPRESSION: 1. No fracture visualized. 2. Edema or cellulitis in the lower anterior abdominal wall.
[2022-10-24] MEDS: fentaNYL 50 mcg/mL INJ 2mL 100 MCG IVP (21:22)
[2022-10-24] MEDS: ondansetron 2 mg/ML SDV 2 mL 4 MG IVP (21:27)
[2022-10-24 21:38] LABS: Glucose Point of Care 164 mg/dL (70-110)
--- NOTE | 2022-10-24 21:44 | XRR_ITS ---
PROCEDURE INFORMATION: Exam: XR Left Knee Exam date and time: 10/24/2022 9:47 PM Age: 77 years old Clinical indication: Pain; Knee; Left; Additional info: Fall left knee pain TECHNIQUE: Imaging protocol: Radiologic exam of the left knee. Views: 3 views. COMPARISON: CR XR knee LT 3V* [id number] 01/08/2022 6:55 AM FINDINGS: Bones/joints: Normal. Soft tissues: Normal. XR/XR knee LT 3V* [id number] IMPRESSION: No acute findings.
--- NOTE | 2022-10-24 22:07 | PC.NURSE ---
Called to room by patient states she would like a bedpan. Pt placed on bedpan at this time.
[2022-10-24 22:38] LABS: Glucose Point of Care 138 mg/dL (70-110)
[2022-10-24] MEDS: fentaNYL 50 mcg/mL INJ 2mL IVP (23:34)
[2022-10-25 00:20] VITALS: BP 176/65; PULSE 79; RESP 16; O2SAT 98
[2022-10-25 00:30] VITALS: BP 169/70; PULSE 84; RESP 17; O2SAT 98
[2022-10-25 01:14] VITALS: BP 176/65; PULSE 82; RESP 20; O2SAT 97
--- NOTE | 2022-10-25 02:58 | ED_ITS ---
HPI - Fall General: Chief Complaint: Fall Stated Complaint: FALL Time Seen by Provider: 10/24/22 20:47 History of Present Illness: 77-year-old female well-known to the emergency department service. She states that she lost her balance at home, and fell onto her back. She states that she probably struck her head, but not hard. She is complaining mainly of mid back pain lower back pain, and hip pain. She did not lose consciousness or get knocked out. She does not have a significant headache. She tells me her neck hurts, but moves her neck without any notable discomfort. She also says that she hurt her left knee during the fall. 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 Left axis deviation. Normal [place] and QRS duration. Intervertebral disc disorder with radiculopathy of lumbosacral region Psychiatric care Psychiatric care Recurrent UTI Status post left heart catheterization Surgical History History of colonoscopy (~2018) History of coronary artery stent placement History of right knee surgery Hx of bilateral hip replacements Hx of bladder repair surgery S/P appendectomy S/P hernia repair S/P hip replacement S/P hysterectomy Family History Family/Other Diabetes Other Cancer Social History Smoking and tobacco status: never smoked Alcohol intake: never Substance/Drug Use: never Household members: spouse Marital status: Current occupational status: retired Course Vital Signs: Vital signs: Vital Signs Temperature 98 F 10/24/22 20:46 Pulse Rate 82 10/25/22 01:14 Respiratory Rate 20 H 10/25/22 01:14 Blood Pressure 176/65 10/25/22 01:14 Pulse Oximetry 97 10/25/22 01:14 MDM - Fall Medical Decision Making 77 year old lady with a ground level fall at home. Lumbar CT is negative. Pelvic CT is negative. She does have significant central canal stenosis AT11-12. There is an age indeterminate, non acute appearing T4 compression fracture. The patient has walked with her Walker in the room, and appears at baseline. She'll be allowed discharge home. A short course of pain medication has been prescribed. Lab Data Radiology Impressions Lumbar Spine CT 10/24/22 21:06 IMPRESSION: 1. No acute findings. 2. Mild degenerative changes as described. Thoracic Spine CT 10/24/22 21:06 IMPRESSION: 1. Age indeterminate mild T4 compression fracture. 2. Hypertrophic spurring in the right T11-12 facet, contributing to moderate-severe central canal stenosis. Pelvis CT 10/24/22 21:08 IMPRESSION: 1. No fracture visualized. 2. Edema or cellulitis in the lower anterior abdominal wall. Knee X-Ray 10/24/22 21:44 IMPRESSION: No acute findings. Laboratory Results POC Glucose 138 mg/dL (70-110) H 10/24/22 22:34 Discharge Plan Discharge Patient Disposition: Home Clinical Impression: Contusion of back, Cervical strain Condition: Stable Prescriptions: Continued hydrocodone-acetaminophen 7.5-325 mg tablet 1 tab PO Q6H PRN (Reason: Pain) Qty: 7 0RF No Action dicyclomine 10 mg capsule 10 mg PO QID lactulose 10 gram/15 mL solution 15 ml PO DAILY@12 polyethylene glycol 3350 [Miralax] 17 gram/dose powder 17 g PO DAILY chlorthalidone 25 mg tablet 25 mg PO DAILY Qty: 90 2RF cholecalciferol (vitamin D3) 1,000 unit capsule 1,000 unit PO QPM cranberry 500 mg capsule 500 mg PO QPM Lactobacillus acidophilus [Acidophilus] Capsule 1 cap PO QAM ferrous sulfate 325 mg (65 mg iron) tablet 325 mg PO DAILY@12 magnesium oxide 400 mg (241.3 mg magnesium) tablet 500 mg PO DAILY@12 nitroglycerin 0.4 mg tablet, sublingual 0.4 mg sublingual Q5M PRN (Reason: chest pain) 30 Days Qty: 30 3RF Rx Instructions: until response; do not exceed 3 doses per episode ranolazine 500 mg tablet extended release 12 hr 500 mg PO BID Qty: 180 3RF furosemide 20 mg tablet 60 mg PO DAILY hydrocortisone 10 mg tablet 10 mg PO QID Qty: 360 0RF citalopram 40 mg tablet 40 mg PO QAM Qty: 30 11RF aripiprazole [Abilify] 2 mg tablet 2 mg PO .qhs Qty: 30 5RF potassium chloride 8 mEq capsule, extended release 24 meq PO DAILY (DME) FreeStyle Tor 2 Sensor Kit See Rx Instructions .MEDSUPPLY Qty: 3 3RF Rx Instructions: [place] directed [place] FreeStyle [place] 2 [place] Misc See Rx Instructions .Route Qty: 1 0RF Rx Instructions: As directed esomeprazole magnesium 40 mg capsule,delayed release(DR/EC) 40 mg PO DAILY methocarbamol 500 mg tablet 500 mg PO TID Qty: 42 0RF insulin lispro [Humalog KwikPen Insulin] 100 unit/mL insulin pen 22 unit SUBCUT TID Qty: 30 3RF (DME) blood sugar diagnostic Strip See Rx Instructions .Route Qty: 400 3RF Rx Instructions: Check blood sugar 4 times a day. [place] lancets [Comfort EZ Lancets] 21 gauge misc See Rx Instructions .Route Qty: 400 3RF Rx Instructions: As directed [place] Easymax 15 test strips Strip See Rx Instructions .Route Qty: 400 3RF Rx Instructions: Check BS 4 times a day. clopidogrel 75 mg tablet 75 mg PO QPM Qty: 90 3RF [place] Dexcom G6 [employer] Misc See Rx Instructions .Route Qty: 1 0RF Rx Instructions: Check BS 4-6 times a day. [place] Dexcom G6 Sensor Device See Rx Instructions .Route Qty: 9 3RF Rx Instructions: Change every 10 days. ([facility] Dexcom G6 Transmitter Device See Rx Instructions .Route Qty: 3 3RF Rx Instructions: Change every 90 days ([facility] pen needle, diabetic [BD Ultra-Fine Mini Pen Needle] 31 gauge x 3/16 needle See Rx Instructions .ROUTE .COMPLEX Qty: 400 3RF Dose Instruction: USE DIRECTED Rx Instructions: QID valsartan 320 mg tablet 320 mg PO DAILY Qty: 90 3RF bupivacaine (PF) 0.25 % (2.5 mg/mL) solution 2 ml Infiltration ONCE Qty: 1 0RF isosorbide mononitrate 120 mg tablet extended release 24 hr 120 mg PO DAILY Qty: 90 3RF atorvastatin 40 mg tablet 40 mg PO BEDTIME albuterol sulfate 90 mcg/actuation HFA aerosol inhaler 2 puff INHALATION QID PRN (Reason: Shortness Of Breath) Tresiba FlexTouch U-200 200 unit/mL (3 mL) insulin pen 34 unit SUBCUT QPM vitamin E 1,000 unit Capsule 1,000 unit PO DAILY ascorbic acid (vitamin C) [Vitamin C] 500 mg Tablet,Chewable 500 mg PO DAILY@12 ondansetron 4 mg tablet,disintegrating 4 mg PO Q8H PRN (Reason: nausea and vomiting) Qty: 7 0RF methocarbamol 1,000 mg tablet 1,000 mg PO Q8H Qty: 21 0RF Discharge Orders: Discharge ED (Routine); Ordered 10/24/22 Ordered By: Monty Briseno Referrals: Arabella Orta MD [Primary Care Provider] - 4-7 days Patient Instructions: Contusion in Adults (ED), Opioid Safety, Pain Management Coding Level of Care Code 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
== END 2022-10-25 01:16 | disposition home or self-care (01) ==
PROVIDERS: Emergency Provider Emergency Medicine; PCP Family Medicine
DX: S30.0XXA Contusion of lower back and pelvis, initial encounter (principal); S16.1XXA Strain of muscle, fascia and tendon at neck level, initial encounter; W19.XXXA Unspecified fall, initial encounter; Y92.009 Unspecified place in unspecified non-institutional (private) residence as the place of occurrence of the external cause
CPT/HCPCS: 36416; 72128; 72131; 72192; 73562; 82962; 96374; 96375; 96376; 99285; J2405; J3010

== ENCOUNTER 2022-10-30 05:59 | Day surgery (SDC) | payer MEDICARE, OTHER, SELFPAY ==
[2022-10-28 10:33] VITALS: BMI 20.7
[2022-10-30 06:34] VITALS: BP 191/70; PULSE 85; RESP 18; TEMP 36.3; O2SAT 98
[2022-10-30] MEDS: sodium chloride 0.9% 1,000 ML 30 ML IV (06:43)
[2022-10-30 06:46] LABS: Glucose Point of Care 164 mg/dL (70-110)
--- NOTE | 2022-10-30 07:04 | P.HP_ITS ---
Providers/Chief Complaint Primary Care Provider: Arabella Orta MD Chief Complaint: Z12.11 History of Present Illness Brandi Berg is a 77 year old female here for a screening colonoscopy Medications/Allergies Home Medications Medication Instructions Recorded Confirmed Last Taken Type Lactobacillus acidophilus 1 cap PO QAM 06/01/19 10/28/22 10/29/22 History (Acidophilus capsule) cholecalciferol (vitamin D3) 25 1,000 unit PO QPM 06/01/19 10/28/22 10/29/22 History mcg (1,000 unit) capsule cranberry 500 mg capsule 500 mg PO QPM 06/01/19 10/28/22 10/29/22 History dicyclomine 10 mg capsule 10 mg PO QID 06/01/19 10/28/22 10/29/22 History ferrous sulfate 325 mg (65 mg 325 mg PO DAILY@06/21/19 10/28/22 10/29/22 History iron) tablet atorvastatin 40 mg tablet 40 mg PO BEDTIME 09/06/20 10/28/22 10/29/22 History lactulose 10 gram/15 mL oral 15 ml PO DAILY@02/11/21 10/28/22 10/29/22 History solution magnesium oxide 400 mg (241.3 mg 500 mg PO DAILY@02/14/21 10/28/22 10/29/22 History magnesium) tablet polyethylene glycol 3350 17 17 g PO DAILY 03/24/21 10/28/22 10/29/22 History gram/dose oral powder (Miralax) nitroglycerin 0.4 mg sublingual 0.4 mg sublingual Q5M PRN chest 06/03/21 10/30/22 07/23/21 Rx tablet pain 30 days #30 tabs albuterol sulfate 90 mcg/actuation 2 puff inhalation QID PRN 07/24/21 10/28/22 10/29/22 History aerosol inhaler Shortness Of Breath chlorthalidone 25 mg tablet 25 mg PO DAILY high blood pressure 08/20/21 10/28/22 10/29/22 Rx #90 tabs blood sugar diagnostic #400 ea 09/02/21 10/28/22 10/27/22 Rx lancets 21 gauge (Comfort EZ #400 ea 09/02/21 10/28/22 10/27/22 Rx Lancets) blood sugar diagnostic (Easymax 15 #400 ea 09/11/21 10/28/22 10/27/22 Rx test strips) ascorbic acid (vitamin C) 500 mg 500 mg PO DAILY@12 11/14/21 10/28/22 10/29/22 History chewable tablet (Vitamin C) vitamin E 670 mg (1,000 unit) 1,000 unit PO DAILY 11/14/21 10/28/22 10/29/22 History capsule ranolazine 500 mg tablet,extended 500 mg PO BID #180 tabs 11/27/21 10/28/22 10/29/22 Rx release,12 hr clopidogrel 75 mg tablet 75 mg PO QPM #90 tabs 01/12/22 10/28/22 10/25/22 Rx blood-glucose meter,continuous #1 ea 01/14/22 10/28/22 10/27/22 Rx (Dexcom G6 [employer] Photo[employer]) blood-glucose sensor (Dexcom G6 #9 ea 01/14/22 10/28/22 10/27/22 Rx Sensor device) blood-glucose transmitter (Dexcom #3 ea 01/14/22 10/28/22 10/27/22 Rx G6 Transmitter device) pen needle, diabetic 31 gauge x #400 ea 01/16/22 10/28/22 10/27/22 Rx 3/16 (BD Ultra-Fine Mini Pen Needle) flash glucose scanning reader #1 ea 02/17/22 10/28/22 10/27/22 Rx (FreeStyle Tor 2 [place]) flash glucose sensor (FreeStyle #3 ea 02/17/22 10/28/22 10/27/22 Rx Tor 2 Sensor kit) ondansetron 4 mg disintegrating 4 mg PO Q8H PRN nausea and 04/24/22 10/28/22 10/29/22 Rx tablet vomiting #7 tabs esomeprazole magnesium 40 mg 40 mg PO DAILY 05/19/22 10/28/22 10/29/22 History capsule,delayed release furosemide 20 mg tablet 60 mg PO DAILY 05/19/22 10/28/22 10/29/22 History potassium chloride 8 mEq 24 meq PO DAILY 05/19/22 10/28/22 10/29/22 History capsule,extended release valsartan 320 mg tablet 320 mg PO DAILY #90 tabs 05/26/22 10/28/22 10/29/22 Rx methocarbamol 1,000 mg tablet 1,000 mg PO Q8H #21 tabs 07/05/22 10/28/22 10/29/22 Rx citalopram 40 mg tablet 40 mg PO QAM #30 tabs 07/10/22 10/28/22 10/29/22 Rx methocarbamol 500 mg tablet 500 mg PO TID #42 tabs 07/16/22 10/28/22 10/29/22 Rx hydrocortisone 10 mg tablet 10 mg PO QID #360 tabs 08/27/22 10/28/22 10/29/22 Rx aripiprazole 2 mg tablet (Abilify) 2 mg PO .qhs #30 tabs 09/25/22 10/28/22 10/29/22 Rx isosorbide mononitrate 120 mg 120 mg PO DAILY #90 tabs 10/02/22 10/28/22 10/29/22 Rx tablet,extended release 24 hr insulin lispro 100 unit/mL 22 unit (0.22 mL) SUBCUT TID #30 mL 10/06/22 10/28/22 10/29/22 Rx subcutaneous pen (Humalog KwikPen (U-100) Insulin) hydrocodone 7.5 mg-acetaminophen 1 tab PO Q6H PRN Pain #7 tabs 10/24/22 10/28/22 10/29/22 Rx 325 mg tablet insulin degludec 200 unit/mL (3 36 unit SUBCUT QPM 10/29/22 10/29/22 10/29/22 History mL) subcutaneous pen (Tresiba FlexTouch U-200 insulin) Allergies Allergy/AdvReac Type Severity Reaction Status Date / Time morphine Allergy Severe RESPIRATORY Verified 10/28/22 12:58 DISTRESS doxycycline Allergy Mild THROAT Verified 10/28/22 12:58 SWELLING duloxetine [From Cymbalta] Allergy Mild SWELLING, Verified 10/28/22 12:58 VOMITING metformin Allergy Mild THROAT Verified 10/28/22 12:58 SWELLING oxybutynin [From Oxytrol] Allergy Mild ALGY-Rash Verified 10/28/22 12:58 Penicillins Allergy Mild ALGY-Rash Verified 10/28/22 12:58 Sulfa (Sulfonamide Allergy Mild STOMACH Verified 10/28/22 12:58 Antibiotics) CRAMPS alprazolam [From Xanax] Allergy Unknown Unknown Verified 10/28/22 12:58 amitriptyline Allergy Unknown Unknown Verified 10/28/22 12:58 Barbiturates Allergy Unknown Unknown Verified 10/28/22 12:58 cefuroxime [From Ceftin] Allergy Unknown Unknown Verified 10/28/22 12:58 insulin detemir Allergy Unknown Unknown Verified 10/28/22 12:58 [From Levemir U-100 Insulin] levofloxacin [From Levaquin] Allergy Unknown Unknown Verified 10/28/22 12:58 liraglutide [From Victoza] Allergy Unknown Unknown Verified 10/28/22 12:58 metoclopramide [From Reglan] Allergy Unknown Unknown Verified 10/28/22 12:58 nitrofurantoin Allergy Unknown Unknown Verified 10/28/22 12:58 [From Macrobid] pregabalin [From Lyrica] Allergy Unknown Unknown Verified 10/28/22 12:58 meloxicam AdvReac Severe ADR-Vomitin Verified 10/28/22 12:58 g ciprofloxacin [From Cipro] AdvReac Mild stomach Verified 10/28/22 12:58 upset hydromorphone [From Dilaudid] AdvReac Unknown PT STATES Verified 10/28/22 12:58 IT MAKES ME CRAZY PFSH Acute PFSH: Medical History Acute cystitis Anemia, chronic disease 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 Left axis deviation. Normal [place] and QRS duration. Intervertebral disc disorder with radiculopathy of lumbosacral region Psychiatric care Psychiatric care Recurrent UTI Status post left heart catheterization Surgical History History of colonoscopy (~2018) History of coronary artery stent placement History of right knee surgery Hx of bilateral hip replacements Hx of bladder repair surgery S/P appendectomy S/P hernia repair S/P hip replacement S/P hysterectomy Family History Family/Other Diabetes Other Cancer Social History Smoking and tobacco status: never smoked Alcohol intake: never Substance/Drug Use: never Household members: spouse Marital status: Current occupational status: retired Vitals/I&O/Wt Last Vital Signs Temp 97.3 F L 10/30/22 06:34 Pulse 85 10/30/22 06:34 Resp 18 10/30/22 06:34 BP 191/70 10/30/22 06:34 Pulse Ox 98 10/30/22 06:34 O2 Del Method Room Air 10/30/22 06:34 Weight last 48 hrs Weight 125 lb A&P Assessment and plan (1) Colon cancer screening: Plan Colonoscopy Attestations Medical Necessity Statement*: Home Coding Level of Care Code Acute Code for Chg Fwd Diagnoses Colon cancer screening Z12.11
--- NOTE | 2022-10-30 07:12 | ANES.PREANE2 ---
Pre-Anesthetic Assessment Height/Weight: Height 1.65 m Weight 56.699 kg Temp Pulse Resp BP Pulse Ox O2 Del Method 97.3 F L 85 18 191/70 98 Room Air 10/30/22 06:34 10/30/22 06:34 10/30/22 06:34 10/30/22 06:34 10/30/22 06:34 10/30/22 06:34 Operation Date: 10/30/22 07:30 Proposed Procedures p Colonoscopy 85533,Z12.11(Not Applicable) - Ricardo Fofana DO Familial anesthetic complications: None Was Beta Tracey taken within 24 hours: N/A Was Clonidine taken within 24 hours: N/A Last intake: Intake Last Liquid Date 10/29/22 Last Liquid Time 23:00 Last Solid Date 10/28/22 Social No alcohol and No tobacco Exam alert, oriented x 3, clear to auscultation bilaterally and regular rate & rhythm Airway Submandibular: within normal limits Cervical ROM: within normal limits Mallampati: Class II Dentition: full History/ROS No significant history except as noted and No significant complaints Pulmonary Sleep Apnea (CPAP) CV/HEM Coronary Artery Disease and Hypertension Stents x3, most recent stent placed last year. 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 Plavix last taken Wednesday CONCLUSIONS ?LV systolic function is normal with EF of 55-60% ?Grade 1 diastolic dysfunction ?Trace tricuspid regurgitation ?Compared to prior echocardiogram from 05/08/2021, no significant ?change is seen None reported Hepatic None reported GI Gastroesophageal Reflux Disease (None this am) Metabolic Diabetes Mellitus and Hyperlipidemia [facility] [place] Fibromyalgia, Lower Back Pain and Osteoarthritis/DJD Neuropsych Anxiety, Depression and Neuropathy Anesthetic Plan ASA status: 3 Anesthesia: Anesthesia Evaluation, General and MAC Risk of > 500 ml blood loss (7ml/kg in children): No Medications/Allergies Home Medications Medication Instructions Recorded Confirmed Last Taken Type Lactobacillus acidophilus 1 cap PO QAM 06/01/19 10/28/22 10/29/22 History (Acidophilus capsule) cholecalciferol (vitamin D3) 25 1,000 unit PO QPM 06/01/19 10/28/22 10/29/22 History mcg (1,000 unit) capsule cranberry 500 mg capsule 500 mg PO QPM 06/01/19 10/28/22 10/29/22 History dicyclomine 10 mg capsule 10 mg PO QID 06/01/19 10/28/22 10/29/22 History ferrous sulfate 325 mg (65 mg 325 mg PO DAILY@06/21/19 10/28/22 10/29/22 History iron) tablet atorvastatin 40 mg tablet 40 mg PO BEDTIME 09/06/20 10/28/22 10/29/22 History lactulose 10 gram/15 mL oral 15 ml PO DAILY@02/11/21 10/28/22 10/29/22 History solution magnesium oxide 400 mg (241.3 mg 500 mg PO DAILY@02/14/21 10/28/22 10/29/22 History magnesium) tablet polyethylene glycol 3350 17 17 g PO DAILY 03/24/21 10/28/22 10/29/22 History gram/dose oral powder (Miralax) nitroglycerin 0.4 mg sublingual 0.4 mg sublingual Q5M PRN chest 06/03/21 10/30/22 07/23/21 Rx tablet pain 30 days #30 tabs albuterol sulfate 90 mcg/actuation 2 puff inhalation QID PRN 07/24/21 10/28/22 10/29/22 History aerosol inhaler Shortness Of Breath chlorthalidone 25 mg tablet 25 mg PO DAILY high blood pressure 08/20/21 10/28/22 10/29/22 Rx #90 tabs blood sugar diagnostic #400 ea 09/02/21 10/28/22 10/27/22 Rx lancets 21 gauge (Comfort EZ #400 ea 09/02/21 10/28/22 10/27/22 Rx Lancets) blood sugar diagnostic (Easymax 15 #400 ea 09/11/21 10/28/22 10/27/22 Rx test strips) ascorbic acid (vitamin C) 500 mg 500 mg PO DAILY@11/14/21 10/28/22 10/29/22 History chewable tablet (Vitamin C) vitamin E 670 mg (1,000 unit) 1,000 unit PO DAILY 11/14/21 10/28/22 10/29/22 History capsule ranolazine 500 mg tablet,extended 500 mg PO BID #180 tabs 11/27/21 10/28/22 10/29/22 Rx release,12 hr clopidogrel 75 mg tablet 75 mg PO QPM #90 tabs 01/12/22 10/28/2210/25/23 Rx blood-glucose meter,continuous #1 ea 01/14/22 10/28/22 10/27/22 Rx (Dexcom G6 [place]) blood-glucose sensor (Dexcom G6 #9 ea 01/14/22 10/28/22 10/27/22 Rx Sensor device) blood-glucose transmitter (Dexcom #3 ea 01/14/22 10/28/22 10/27/22 Rx G6 Transmitter device) pen needle, diabetic 31 gauge x #400 ea 01/16/22 10/28/22 10/27/22 Rx 3/16 (BD Ultra-Fine Mini Pen Needle) flash glucose scanning reader #1 ea 02/17/22 10/28/22 10/27/22 Rx (FreeStyle Tor 2 [place]) flash glucose sensor (FreeStyle #3 ea 02/17/22 10/28/22 10/27/22 Rx Tor 2 Sensor kit) ondansetron 4 mg disintegrating 4 mg PO Q8H PRN nausea and 04/24/22 10/28/22 10/29/22 Rx tablet vomiting #7 tabs esomeprazole magnesium 40 mg 40 mg PO DAILY 05/19/22 10/28/22 10/29/22 History capsule,delayed release furosemide 20 mg tablet 60 mg PO DAILY 05/19/22 10/28/22 10/29/22 History potassium chloride 8 mEq 24 meq PO DAILY 05/19/22 10/28/22 10/29/22 History capsule,extended release valsartan 320 mg tablet 320 mg PO DAILY #90 tabs 05/26/22 10/28/22 10/29/22 Rx methocarbamol 1,000 mg tablet 1,000 mg PO Q8H #21 tabs 07/05/22 10/28/22 10/29/22 Rx citalopram 40 mg tablet 40 mg PO QAM #30 tabs 07/10/22 10/28/22 10/29/22 Rx methocarbamol 500 mg tablet 500 mg PO TID #42 tabs 07/16/22 10/28/22 10/29/22 Rx hydrocortisone 10 mg tablet 10 mg PO QID #360 tabs 08/27/22 10/28/22 10/29/22 Rx aripiprazole 2 mg tablet (Abilify) 2 mg PO .qhs #30 tabs 05/05/23 06/07/23 06/08/23 Rx isosorbide mononitrate 120 mg 120 mg PO DAILY #90 tabs 10/02/22 10/28/22 10/29/22 Rx tablet,extended release 24 hr insulin lispro 100 unit/mL 22 unit (0.22 mL) SUBCUT TID #30 mL 10/06/22 10/28/22 10/29/22 Rx subcutaneous pen (Humalog KwikPen (U-100) Insulin) hydrocodone 7.5 mg-acetaminophen 1 tab PO Q6H PRN Pain #7 tabs 10/24/22 10/28/22 10/29/22 Rx 325 mg tablet insulin degludec 200 unit/mL (3 36 unit SUBCUT QPM 10/29/22 10/29/22 10/29/22 History mL) subcutaneous pen (Tresiba FlexTouch U-200 insulin) Allergies Allergy/AdvReac Type Severity Reaction Status Date / Time morphine Allergy Severe RESPIRATORY Verified 10/28/22 12:58 DISTRESS doxycycline Allergy Mild THROAT Verified 10/28/22 12:58 SWELLING duloxetine [From Cymbalta] Allergy Mild SWELLING, Verified 10/28/22 12:58 VOMITING metformin Allergy Mild THROAT Verified 10/28/22 12:58 SWELLING oxybutynin [From Oxytrol] Allergy Mild ALGY-Rash Verified 10/28/22 12:58 Penicillins Allergy Mild ALGY-Rash Verified 10/28/22 12:58 Sulfa (Sulfonamide Allergy Mild STOMACH Verified 10/28/22 12:58 Antibiotics) CRAMPS alprazolam [From Xanax] Allergy Unknown Unknown Verified 10/28/22 12:58 amitriptyline Allergy Unknown Unknown Verified 10/28/22 12:58 Barbiturates Allergy Unknown Unknown Verified 10/28/22 12:58 cefuroxime [From Ceftin] Allergy Unknown Unknown Verified 10/28/22 12:58 insulin detemir Allergy Unknown Unknown Verified 10/28/22 12:58 [From Levemir U-100 Insulin] levofloxacin [From Levaquin] Allergy Unknown Unknown Verified 10/28/22 12:58 liraglutide [From Victoza] Allergy Unknown Unknown Verified 10/28/22 12:58 metoclopramide [From Reglan] Allergy Unknown Unknown Verified 10/28/22 12:58 nitrofurantoin Allergy Unknown Unknown Verified 10/28/22 12:58 [From Macrobid] pregabalin [From Lyrica] Allergy Unknown Unknown Verified 10/28/22 12:58 meloxicam AdvReac Severe ADR-Vomitin Verified 10/28/22 12:58 g ciprofloxacin [From Cipro] AdvReac Mild stomach Verified 10/28/22 12:58 upset hydromorphone [From Dilaudid] AdvReac Unknown PT STATES Verified 10/28/22 12:58 IT MAKES ME CRAZY [facility] Anesthesia Medical History Acute cystitis Anemia, chronic disease Atherosclerotic heart disease of [place] coronary artery without angina pectoris Axonal sensorimotor neuropathy Benign essential hypertension with target blood pressure below 140/90 Benign neoplasm of cerebral meninges Bipolar II disorder Dyslipidemia (high LDL; low HDL) Gross hematuria Heart palpitations The EKG showed a sinus rhythm with some nonspecific T wave changes. Left axis deviation. Normal NM and QRS duration. Intervertebral disc disorder with radiculopathy of lumbosacral region Psychiatric care Psychiatric care Recurrent UTI Status post left heart catheterization Surgical History History of colonoscopy (~2018) History of coronary artery stent placement History of right knee surgery Hx of bilateral hip replacements Hx of bladder repair surgery S/P appendectomy S/P hernia repair S/P hip replacement S/P hysterectomy Family History Family/Other Diabetes Other Cancer Social History Smoking and tobacco status: never smoked Alcohol intake: never Substance/Drug Use: never Household members: spouse Marital status: Current occupational status: retired Data Anesthesia Cardiac Studies: Echocardiogram 11/14/21 Sestamibi Stress Test (Cardiology) 03/07/21 Holter Monitor 04/29/21
[2022-10-30 08:23] VITALS: BP 153/63; PULSE 81; RESP 16; TEMP 36.1; O2SAT 97
[2022-10-30 08:31] VITALS: BP 161/63; PULSE 82; RESP 18; O2SAT 98
[2022-10-30 08:41] VITALS: BP 160/63; PULSE 86; RESP 18; O2SAT 98
--- NOTE | 2022-10-30 13:56 | ANE.PACU2 ---
Inpatient post-anesthesia follow up: Airway intact: Yes Vital signs: Temperature 97.0 F Pulse Rate 86 Respiratory Rate 18 Blood Pressure 160/63 Pulse Oximetry 98 Oxygen Delivery Me thod Room Air Oxygen Flow Rate Fraction of Inspir ed Oxygen Hydration adequate: Yes Nausea and vomiting: No Pain level: 1 Mental status: Baseline
== END 2022-10-30 09:19 | disposition home or self-care (01) ==
PROVIDERS: PCP Family Medicine; Visit Provider Surgery
PROC: 0DJD8ZZ Inspection of Lower Intestinal Tract, Via Natural or Artificial Opening Endoscopic (ICD-10-PCS; CPT 45378; principal; 2022-10-30 07:30)
DX: Z86.010 Personal history of colon polyps (principal); D12.2 Benign neoplasm of ascending colon; Z12.11 Encounter for screening for malignant neoplasm of colon; I25.10 Atherosclerotic heart disease of native coronary artery without angina pectoris; I10 Essential (primary) hypertension; Z95.5 Presence of coronary angioplasty implant and graft; Z79.02 Long term (current) use of antithrombotics/antiplatelets; K21.9 Gastro-esophageal reflux disease without esophagitis; E11.42 Type 2 diabetes mellitus with diabetic polyneuropathy; E78.5 Hyperlipidemia, unspecified; F41.9 Anxiety disorder, unspecified; F32.A Depression, unspecified; Z79.4 Long term (current) use of insulin; K57.30 Diverticulosis of large intestine without perforation or abscess without bleeding
CPT/HCPCS: 36416; 45385; 82962; 88305; J2704; J7030

== ENCOUNTER → 2022-11-11 17:00 | Outpatient (BNVA) | payer MEDICARE, OTHER, SELFPAY | PROVIDERS: PCP Family Medicine; Visit Provider Surgery | DX: Z09 Encounter for follow-up examination after completed treatment for conditions other than malignant neoplasm (principal); K59.00 Constipation, unspecified | CPT/HCPCS: 99212 ==

== ENCOUNTER 2022-11-21 10:28 | Emergency (ER) | payer MEDICARE, OTHER, SELFPAY ==
[2022-11-21 10:42] VITALS: BP 179/60; PULSE 85; RESP 16; TEMP 36.8; O2SAT 98; BMI 37.9
--- NOTE | 2022-11-21 11:07 | XRR_ITS ---
PROCEDURE INFORMATION: Exam: XR Abdomen Exam date and time: 11/21/2022 11:35 AM Age: 77 years old Clinical indication: Abdominal pain; Additional info: Abd pain TECHNIQUE: Imaging protocol: Radiologic exam of the abdomen. Views: Frontal supine view of the abdomen. 1 View. COMPARISON: CT abdomen pelvis con [id number] 04/24/2022 7:05 PM FINDINGS: Gastrointestinal tract: Normal. No bowel dilation. Bones/joints: Bilateral metallic hip arthroplasty is seen. Lumbar spine osteoarthritis is present. Otherwise no additional bony abnormalities. XR/XR abdomen 1V* [id number] IMPRESSION: No acute findings.
[2022-11-21 11:14] LABS: Basophils % 0.6 %; Eosinophils # 0.2 10^3/uL (0.0-0.8); Eosinophils % 2.3 %; Hematocrit 39.2 % (37.0-47.0); Hemoglobin 12.9 g/dL (11.5-15.3); Lymphocytes # 1.3 10^3/uL (0.8-4.8); Lymphocytes % 20.5 %; Mean Corpuscular HGB Conc 32.9 g/dL (30.0-36.0); Mean Corpuscular Hemoglobin 30.1 pg (28.0-34.0); Mean Corpuscular Volume 91.4 fl (81-99); Mean Platelet Volume 9.4 fL (7.4-10.4); Monocytes # 0.7 10^3/uL (0.2-0.9); Monocytes % 10.1 %; Neutrophils # 4.31 10^3/uL (1.8-7.7); Neutrophils % 65.9 %; Nucleated Red Blood Cells % 0 %; Platelet Count 231 10^3/cmm (130-400); Red Blood Count 4.29 10^6/uL (4.1-5.3); Red Cell Distribution Width 12.9 % (12.1-15.1); White Blood Count 6.5 10^3/uL (4.0-10.0)
--- NOTE | 2022-11-21 11:14 | PC.NURSE ---
ASSUMED CARE AT 1114 FROM [facility]
[2022-11-21 11:29] LABS: Alanine Aminotransferase 27 U/L (0-33); Albumin Level 4.4 g/dL (3.5-5.2); Alkaline Phosphatase 159 U/L (35-105); Anion Gap 15.2 (5-19); Aspartate Amino Transferase 23 U/L (0-32); Blood Urea Nitrogen 13 mg/dL (8-23); Calcium 10.3 mg/dL (8.5-10.5); Carbon Dioxide 29 mmol/L (22-29); Chloride 92 mmol/L (98-107); Globulin 3.4 g/dL (1.3-4.6); Glucose 133 mg/dL (65-115); Osmolality Calculated 276 mOsm/kg (285-295); Potassium 4.2 mmol/L (3.5-5.1); Sodium 132 mmol/L (136-145); Total Bilirubin 0.4 mg/dL (0.15-1.2); Total Protein 7.8 g/dL (6.6-8.7)
--- NOTE | 2022-11-21 11:53 | ED_ITS ---
HPI - Abdominal Pain General: Chief Complaint: Abdominal Pain Stated Complaint: abd pain post colonoscopy Time Seen by Provider: 11/21/22 10:59 History of Present Illness: Patient presents to the ER with complaints of abdominal pain. Patient had a colonoscopy approximately 4 weeks ago looking for the source of this abdominal pain and they found 2 polyps and since then the pain may have been worse. Patient is also been to the back doctor for known bulging disks and he said her back issues cannot be causing his abdominal pain. Patient states this pain is worse when she has a bowel movement and or urinates. Patient is not having any nausea vomiting diarrhea at this time. Nor fevers chills. Patient is allergic to a very large amount of medicine. Patient is currently on hydrocodone for her overall pain. Review of Systems General: Reports: 10 or more systems reviewed and unremarkable except in HPI and below PFSH ED PFSH: Medical History Acute cystitis Anemia, chronic disease Atherosclerotic heart disease of [place] coronary artery without angina pectoris Axonal sensorimotor neuropathy Benign essential hypertension with target blood pressure below 140/90 Benign neoplasm of cerebral meninges Bipolar II disorder Dyslipidemia (high LDL; low HDL) Gross hematuria Heart palpitations The EKG showed a sinus rhythm with some nonspecific T wave changes. Left axis deviation. Normal [place] and QRS duration. Intervertebral disc disorder with radiculopathy of lumbosacral region Psychiatric care Psychiatric care Recurrent UTI Status post left heart catheterization Surgical History History of colonoscopy (~2018) History of coronary artery stent placement History of right knee surgery Hx of bilateral hip replacements Hx of bladder repair surgery S/P appendectomy S/P hernia repair S/P hip replacement S/P hysterectomy Family History Family/Other Diabetes Other Cancer Social History Smoking and tobacco status: never smoked Alcohol intake: never Substance/Drug Use: never Household members: spouse Marital status: Current occupational status: retired Physical Exam Const: COMMON NORMALS: no acute distress, average body habitus, patient oriented x3, no limitations, healthy appearing, alert and well nourished HENMT: COMMON NORMALS: normocephalic, atraumatic, hearing grossly normal bilaterally, external ears normal, Normal external nose present and moist oral mucous membranes HEAD & SCALP: normocephalic and atraumatic NOSE: Normal external nose present EXTERNAL EAR: Yes external ears normal Neck/C-Spine: COMMON NORMALS: no JVD Chest: COMMONS NORMALS: normal inspection of the chest and normal palpation of entire chest wall Resp: COMMON NORMALS: normal respiratory effort, No retractions, No use of accessory muscles and clear to auscultation bilaterally AUSCULTATION: clear to auscultation bilaterally Cardio: COMMON NORMALS: no JVD, regular rate, regular rhythm, S1 normal heart sound present, S2 normal heart sound present, No gallops present (Cardio), No clicks present (Cardio), No murmurs present (Cardio) and No rub (Cardio) RATE: regular rate RHYTHM: regular rhythm HEART SOUNDS: S1 normal heart sound present and S2 normal heart sound present GI: COMMON NORMALS: Soft to palpation INSPECTION: Yes normal to inspection AUSCULTATION: Yes normoactive bowel sounds PALPATION: Yes Soft to palpation and Yes Tenderness to palpation present (GI) (Diffusely nonspecific) : COMMON NORMALS: Yes no CVA tenderness BLADDER/KIDNEY EXAM: Yes no CVA tenderness Back/Pelvis: COMMON NORMALS: no CVA tenderness Neuro: COMMON NORMALS: patient oriented x3 SENSORIUM/ORIENTATION: Yes alert Course Vital Signs: Vital signs: Vital Signs Temperature 98.2 F 11/21/22 10:42 Pulse Rate 75 11/21/22 12:08 Respiratory Rate 16 11/21/22 12:08 Blood Pressure 179/60 11/21/22 12:08 Pulse Oximetry 99 11/21/22 12:08 Oxygen Delivery Me thod Room Air 11/21/22 12:08 MDM - Abdominal Pain Medical Decision Making Patient presents to the ER with complaints of abdominal pain. Patient has been to the back doctor who says her back is not causing his pain. Patient had a colonoscopy where she found 2 polyps. And she is still having this pain. Patient is on chronic hydrocodone and is not helping. Patient is allergic to multiple different medicines. Lab work was essentially benign but did show patient may have a slight urinary tract infection as well allergies we will wait till we get the culture and sensitivity data back to prescribe her any antibiotics. Patient be discharged home to follow-up with her PCP for further evaluation and treatment. Lab Data 11/21/22 11:10 11/21/22 11:10 Labs/Radiology: Radiology Impressions Abdomen X-Ray 11/21/22 11:07 IMPRESSION: No acute findings. Laboratory Results WBC 6.5 10^3/uL (4.0-10.0) 11/21/22 11:10 RBC 4.29 10^6/uL (4.1-5.3) 11/21/22 11:10 Hgb 12.9 g/dL (11.5-15.3) 11/21/22 11:10 Hct 39.2 % (37.0-47.0) 11/21/22 11:10 MCV 91.4 fl (81-99) 11/21/22 11:10 MCH 30.1 pg (28.0-34.0) 11/21/22 11:10 MCHC 32.9 g/dL (30.0-36.0) 11/21/22 11:10 RDW 12.9 % (12.1-15.1) 11/21/22 11:10 Plt Count 231 10^3/cmm (130-400) 11/21/22 11:10 MPV 9.4 fL (7.4-10.4) 11/21/22 11:10 Neut % (Auto) 65.9 % 11/21/22 11:10 Lymph % (Auto) 20.5 % 11/21/22 11:10 [place] % (Auto) 10.1 % 11/21/22 11:10 Eos % (Auto) 2.3 % 11/21/22 11:10 Baso % (Auto) 0.6 % 11/21/22 11:10 Neut # (Auto) 4.31 10^3/uL (1.8-7.7) 11/21/22 11:10 Lymph # (Auto) 1.3 10^3/uL (0.8-4.8) 11/21/22 11:10 [place] # (Auto) 0.7 10^3/uL (0.2-0.9) 11/21/22 11:10 Eos # (Auto) 0.2 10^3/uL (0.0-0.8) 11/21/22 11:10 Baso # (Auto) 0.0 10^3/uL (0.0-0.1) 11/21/22 11:10 Nucleated RBC % (auto) 0 % 11/21/22 11:10 Nucleated RBCs # 0.0 /100WBC 11/21/22 11:10 Sodium 132 mmol/L (136-145) L 11/21/22 11:10 Potassium 4.2 mmol/L (3.5-5.1) 11/21/22 11:10 Chloride 92 mmol/L (98-107) L 11/21/22 11:10 Carbon Dioxide 29 mmol/L (22-29) 11/21/22 11:10 Anion Gap 15.2 (5-19) 11/21/22 11:10 BUN 13 mg/dL (8-23) 11/21/22 11:10 Creatinine 0.6 mg/dL (0.5-0.9) 11/21/22 11:10 GFR Calculation Not Reportable 11/21/22 11:10 Glucose 133 mg/dL (65-115) H 11/21/22 11:10 Calculated Osmolality 276 mOsm/kg (285-295) L 11/21/22 11:10 Calcium 10.3 mg/dL (8.5-10.5) 11/21/22 11:10 Total Bilirubin 0.4 mg/dL (0.15-1.2) 11/21/22 11:10 AST 23 U/L (0-32) 11/21/22 11:10 ALT 27 U/L (0-33) 11/21/22 11:10 Alkaline Phosphatase 159 U/L (35-105) H 11/21/22 11:10 Total Protein 7.8 g/dL (6.6-8.7) 11/21/22 11:10 Albumin 4.4 g/dL (3.5-5.2) 11/21/22 11:10 Globulin 3.4 g/dL (1.3-4.6) 11/21/22 11:10 Urine Color Yellow (Yellow) 11/21/22 Unknown Urine Appearance Clear (CLEAR) 11/21/22 Unknown Urine pH 8 (5-7) H 11/21/22 Unknown Ur Specific [place] 1.010 (1.005-1.030) 11/21/22 Unknown Urine Protein Neg (Negative) 11/21/22 Unknown Urine Glucose (UA) Norm (Normal) 11/21/22 Unknown Urine Ketones Negative (Negative) 11/21/22 Unknown Urine Blood Neg (Negative) 11/21/22 Unknown Urine Nitrate Negative (Negative) 11/21/22 Unknown Urine Bilirubin Neg (Negative) 11/21/22 Unknown Prot Sulfosalicylic Acd Negative (Negative) 11/21/22 Unknown Urine Urobilinogen Norm mg/dL (Negative) 11/21/22 Unknown Ur Leukocyte Esterase 1+ (Negative) H 11/21/22 Unknown Urine RBC None /hpf (0-2) 11/21/22 Unknown Urine WBC 0-4 /hpf (0-5) H 11/21/22 Unknown Ur Squamous Epith Cells 0-4 /hpf (0-5) H 11/21/22 Unknown Amorphous Sediment Not Reportable 11/21/22 Unknown Urine Bacteria Trace /hpf (NONE) 11/21/22 Unknown Discharge Plan Discharge Patient Disposition: Home Clinical Impression: Urinary tract infection Qualifiers: Urinary tract infection type: acute cystitis Hematuria presence: without hematuria Qualified Code(s): N30.00 - Acute cystitis without hematuria Abdominal pain Qualifiers: Abdominal location: generalized Qualified Code(s): R10.84 - Generalized abdominal pain Condition: Stable Prescriptions: No Action dicyclomine 10 mg capsule 10 mg PO QID lactulose 10 gram/15 mL solution 15 ml PO DAILY@12 polyethylene glycol 3350 [Miralax] 17 gram/dose powder 17 g PO DAILY chlorthalidone 25 mg tablet 25 mg PO DAILY Qty: 90 2RF cholecalciferol (vitamin D3) 1,000 unit capsule 1,000 unit PO QPM cranberry 500 mg capsule 500 mg PO QPM Lactobacillus acidophilus [Acidophilus] Capsule 1 cap PO QAM ferrous sulfate 325 mg (65 mg iron) tablet 325 mg PO DAILY@12 magnesium oxide 400 mg (241.3 mg magnesium) tablet 500 mg PO DAILY@12 nitroglycerin 0.4 mg tablet, sublingual 0.4 mg sublingual Q5M PRN (Reason: chest pain) 30 Days Qty: 30 3RF Rx Instructions: until response; do not exceed 3 doses per episode ranolazine 500 mg tablet extended release 12 hr 500 mg PO BID Qty: 180 3RF furosemide 20 mg tablet 60 mg PO DAILY hydrocortisone 10 mg tablet 10 mg PO QID Qty: 360 0RF citalopram 40 mg tablet 40 mg PO QAM Qty: 30 11RF aripiprazole [Abilify] 2 mg tablet 2 mg PO .qhs Qty: 30 5RF potassium chloride 8 mEq capsule, extended release 24 meq PO DAILY (DME) FreeStyle Tor 2 Sensor Kit See Rx Instructions .MEDSUPPLY Qty: 3 3RF Rx Instructions: As directed ([facility] [place]) FreeStyle Tor 2 [place] Misc See Rx Instructions .Route Qty: 1 0RF Rx Instructions: As directed esomeprazole magnesium 40 mg capsule,delayed release(DR/EC) 40 mg PO DAILY methocarbamol 500 mg tablet 500 mg PO TID Qty: 42 0RF insulin lispro [Humalog KwikPen Insulin] 100 unit/mL insulin pen 22 unit SUBCUT TID Qty: 30 3RF (DME) blood sugar diagnostic Strip See Rx Instructions .Route Qty: 400 3RF Rx Instructions: Check blood sugar 4 times a day. ([facility]) lancets [Comfort EZ Lancets] 21 gauge misc See Rx Instructions .Route Qty: 400 3RF Rx Instructions: As directed ([facility] [place]) Easymax 15 test strips Strip See Rx Instructions .Route Qty: 400 3RF Rx Instructions: Check BS 4 times a day. clopidogrel 75 mg tablet 75 mg PO QPM Qty: 90 3RF Hold Instructions: Resume on 11/02/22. ([facility]) Dexcom G6 [place] Misc See Rx Instructions .Route Qty: 1 0RF Rx Instructions: Check BS 4-6 times a day. ([facility]) Dexcom G6 Sensor Device See Rx Instructions .Route Qty: 9 3RF Rx Instructions: Change every 10 days. ([facility]) Dexcom G6 Transmitter Device See Rx Instructions .Route Qty: 3 3RF Rx Instructions: Change every 90 days ([facility] [place]) pen needle, diabetic [BD Ultra-Fine Mini Pen Needle] 31 gauge x 3/16 needle See Rx Instructions .ROUTE .COMPLEX Qty: 400 3RF Dose Instruction: USE DIRECTED Rx Instructions: QID valsartan 320 mg tablet 320 mg PO DAILY Qty: 90 3RF bupivacaine (PF) 0.25 % (2.5 mg/mL) solution 2 ml Infiltration ONCE Qty: 1 0RF isosorbide mononitrate 120 mg tablet extended release 24 hr 120 mg PO DAILY Qty: 90 3RF Linzess 145 mcg capsule 145 mcg PO DAILY Qty: 30 2RF atorvastatin 40 mg tablet 40 mg PO BEDTIME albuterol sulfate 90 mcg/actuation HFA aerosol inhaler 2 puff INHALATION QID PRN (Reason: Shortness Of Breath) vitamin E 1,000 unit Capsule 1,000 unit PO DAILY ascorbic acid (vitamin C) [Vitamin C] 500 mg Tablet,Chewable 500 mg PO DAILY@12 ondansetron 4 mg tablet,disintegrating 4 mg PO Q8H PRN (Reason: nausea and vomiting) Qty: 7 0RF methocarbamol 1,000 mg tablet 1,000 mg PO Q8H Qty: 21 0RF hydrocodone-acetaminophen 7.5-325 mg tablet 1 tab PO Q6H PRN (Reason: Pain) Qty: 7 0RF insulin degludec [Tresiba FlexTouch U-200] 200 unit/mL (3 mL) insulin pen 36 unit SUBCUT QPM Discharge Orders: Discharge ED (Routine); Ordered 11/21/22 Ordered By: Cristobal Monroe Referrals: Arabella Orta MD [Primary Care Provider] - 1 week Patient Instructions: Abdominal Pain (ED), Urinary Tract Infection - Women Activity Restrictions/Additional Instructions: Your lab work was unremarkable except for possible urinary tract infection. Due to your long list of allergies to multiple medicines we will wait till we get the culture and sensitivity data back for your urine to prescribe you an antibiotic. This usually takes 2 to 3 days if you have not heard from us by then please feel free to give us a call back. Otherwise continue your current pain regimen and follow-up with your family practice doctor for further evaluation and treatment of your abdominal pain. 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
[2022-11-21 12:08] VITALS: BP 179/60; PULSE 75; RESP 16; O2SAT 99
[2022-11-21] MEDS: HYDROcodone-acetaminophen 10-325 mg Tablet 1 TAB PO (12:22)
[2022-11-21 12:45] LABS: Urine Appearance Clear (CLEAR); Urine Color Yellow (Yellow); pH Urine 8 (5-7)
[2022-11-21 12:46] LABS: Add Urine Microscopic? YES; Bilirubin Urine Neg (Negative); Blood Urine Neg (Negative); Glucose Urine UA Norm (Normal); Ketones Urine Negative (Negative); Leukocyte Esterase Urine 1+ (Negative); Nitrate Urine Negative (Negative); Protein Urine Neg (Negative); Sulfosalicylic Acid Urine Negative (Negative); Urobilinogen Urine Norm (Negative)
[2022-11-21 12:47] LABS: WBC Urine 0-4 /hpf (0-5)
[2022-11-21 12:48] LABS: Add Urine Culture? No; Bacteria Urine TRACE /hpf; Squamous Epithelial Cell Urine 0-4 /hpf (0-5)
== END 2022-11-21 14:06 | disposition home or self-care (01) ==
PROVIDERS: Emergency Provider Emergency Medicine; PCP Family Medicine
DX: N30.00 Acute cystitis without hematuria (principal); Z79.899 Other long term (current) drug therapy
CPT/HCPCS: 74018; 80053; 81001; 85025; 99284

== ENCOUNTER → 2022-11-23 15:23 | Outpatient (BNVA) | payer MEDICARE, OTHER, SELFPAY | PROVIDERS: PCP Family Medicine; Visit Provider Internal Medicine Cardiovascular Disease | DX: R06.02 Shortness of breath (principal); I25.118 Atherosclerotic heart disease of native coronary artery with other forms of angina pectoris; E11.65 Type 2 diabetes mellitus with hyperglycemia; R60.0 Localized edema; I10 Essential (primary) hypertension; G47.33 Obstructive sleep apnea (adult) (pediatric) | CPT/HCPCS: 36415; 83880; 99214 ==

== ENCOUNTER → 2022-12-01 15:14 | Outpatient (BNVA) | payer MEDICARE, OTHER, SELFPAY | PROVIDERS: PCP Family Medicine; Visit Provider Physician Assistant | DX: M54.50 Low back pain, unspecified; M25.561 Pain in right knee; M47.816 Spondylosis without myelopathy or radiculopathy, lumbar region; S32.040A Wedge compression fracture of fourth lumbar vertebra, initial encounter for closed fracture; X58.XXXA Exposure to other specified factors, initial encounter | CPT/HCPCS: 73560; 73565; 99214 ==

== ENCOUNTER → 2022-12-09 16:59 | Outpatient (BNVA) | payer MEDICARE, OTHER, SELFPAY | PROVIDERS: PCP Family Medicine; Visit Provider Surgery | DX: D12.6 Benign neoplasm of colon, unspecified (principal); K62.89 Other specified diseases of anus and rectum; K59.00 Constipation, unspecified | CPT/HCPCS: 99212 ==

== ENCOUNTER 2022-12-11 12:37 | Outpatient (CLI) | payer MEDICARE, OTHER, SELFPAY ==
--- NOTE | 2022-12-11 12:51 | MR_ITS ---
WS: [id number] MRI HEAD WITH CONTRAST TECHNIQUE: Sagittal T1, T2 axial, T2 axial FLAIR, axial susceptibility weighted imaging, axial diffus ion weighted images, and coronal T2 images were obtained. Pre and post-T1 axial and post T1 coronal i mages. ADC and FSPGR images. CLINICAL INFORMATION: BENIGN NEOPLASM OF MENINGES/DIZZINESS COMPARISON: MRI 11/21/2021 and 11/26/2020 FINDINGS: Previously described meningioma involving the RIGHT inferior frontal lobe measures approximately 7.0 x 5.0 mm stable since the prior examination. No evidence of progression. No significant underlying ed smita or mass effect. Findings are stable compared to previous. Small lobulation along the LEFT tentorium may represent an additional tiny meningioma measuring 3 to 4 mm. This appears stable over multiple prior examinations. Mild to moderate symmetric atrophy temporal lobes and hippocampal formations. Incidental enhancing ve nous angioma LEFT cerebellum. No other abnormal foci of enhancement. No evidence restricted diffusion to suggest ischemia. Ventricular system and basal cisterns are paten t. Small central protrusions C5-C6 and C6-C7 with mild central canal stenosis. No hemosiderin on the susceptibly weighted images. Minimal periventricular white matter changes. Mild parenchymal volume lo ss. Chronic lacunar infarct RIGHT cerebellum. Normal vascular flow voids at the skull base. No extra- axial fluid collections. No evidence of mass or mass effect. Paranasal sinuses and mastoid air cells are well aerated. Normal posterior nasopharynx and parapharyngeal fat. Normal optic chiasm and pituitary infundibulum. Normal cavernous sinuses and Meckel's cave. Visualize d dural venous sinuses appear normal. MR/MR head wo/w con [id number] IMPRESSION: 1. 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 Additional possible tiny meningioma overlying the LEFT tentorium measuring 3-4 mm is unchanged from multiple prior examinations. 3. Tiny chronic lacunar infarct RIGHT cerebellum is unchanged from previous. 4. No hemosiderin on susceptibly weighted images. 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 5. No significant changes compared to previous.
[2022-12-11] MEDS: gadobenate dimeglumine 20 mL vial IV (14:03)
== END 2022-12-11 12:38 | disposition home or self-care (01) ==
PROVIDERS: PCP Family Medicine; Visit Provider Family Medicine
DX: D32.9 Benign neoplasm of meninges, unspecified (principal)
CPT/HCPCS: 70553; A9577

== ENCOUNTER 2022-12-24 12:55 | Outpatient (CLI) | payer MEDICARE, OTHER, SELFPAY ==
--- NOTE | 2022-12-24 11:00 | MR_ITS ---
WS: [id number] MRI THORACIC SPINE WITHOUT CONTRAST TECHNIQUE: Sagittal T1, T2 and STIR imaging. Axial T2 imaging. Noncontrast imaging obtained. CLINICAL INFORMATION: lumbar pain COMPARISON: None. FINDINGS: Mild thoracic curve. Mild thoracic kyphosis. Mild chronic anterior wedging at T4. No edema in this lo cation. Mild compression along the inferior endplate at T4 and superior endplate at T5 with mild edema compat ible with recent compression. No retropulsion. No other compression fractures. A few tiny shallow protrusions most prominent at T5-T6, T8-T9, T9-T10. Moderate facet arthropathy in the lower thoracic spine. Mild central canal stenosis T11-T12 with prominent facet arthropathy ligam entum flavum hypertrophy. Mild RIGHT T9-T10 bony foraminal narrowing. Mild RIGHT T10-T11 bony foraminal narrowing. MR/MR thoracic spin wo con* [id number] IMPRESSION: 1. Chronic anterior wedging at T4. No edema in this location. 2. Mild compression deformity inferior endplate T5 and superior endplate T6 wi th mild edema consistent with recent compression. No retropulsion. 3. A few small protrusions as described above. 4. Mild central canal stenosis T11-T12 with prominent facet arthropathy ligame ntum flavum hypertrophy.
--- NOTE | 2022-12-24 13:00 | MR_ITS ---
WS: [id number] MRI LUMBAR SPINE NONCONTRAST TECHNIQUE: Sagittal T1, T2 and STIR imaging. Axial T1 and T2 imaging. CLINICAL INFORMATION: lumbar pain COMPARISON: CT October 24, 2022 FINDINGS: Mild lumbar curve. No acute compression. Slight retrolisthesis L4 on L5. No high-grade central canal stenosis. L1-L2: Normal. L2-L3: Slight anterolisthesis. Minimal disc bulging. Slight narrowing of subarticular recess. Mild fa cet arthropathy. Mild RIGHT and no significant LEFT foraminal narrowing. L3-L4: Mild annular bulging. Mild facet arthropathy. LEFT foraminal protrusion with mild LEFT foramin al narrowing. RIGHT foramen is patent. Mild facet arthropathy. L4-L5: Grade 1 anterolisthesis. Mild annular bulging with slight effacement of the ventral thecal sac . Moderate facet arthropathy. Mild to moderate RIGHT and no significant LEFT foraminal narrowing. L5-S1: LEFT pericentral disc protrusion with impingement LEFT S1 nerve root in the subarticular reces s. Osteophytic ridging. Mild facet arthropathy. Spinal canal and foramen are patent. Visualized pelvic bony structures: Normal. Paravertebral soft tissues: Normal. MR/MR lumbar spine wo con* [id number] IMPRESSION: 1. Mild lumbar curve. No acute compression. No high-grade central canal stenos is. 2. Grade 1 anterolisthesis L4 on L5 with slight effacement ventral thecal sac. Mild RIGHT foraminal narrowing. 3. LEFT pericentral disc protrusion L5-S1 impinges the LEFT S1 nerve root in t he subarticular recess. 4. Small LEFT foraminal protrusion L3-L4 with mild LEFT foraminal narrowing an d contact of the exiting LEFT L3 nerve root. 5. Moderate facet arthropathy L3-L5.
== END 2022-12-24 12:56 | disposition home or self-care (01) ==
PROVIDERS: PCP Family Medicine; Visit Provider Physician Assistant
DX: M51.27 Other intervertebral disc displacement, lumbosacral region (principal)
CPT/HCPCS: 72146; 72148

== ENCOUNTER → 2022-12-29 13:35 | Outpatient (BNVA) | payer MEDICARE, OTHER, SELFPAY | PROVIDERS: PCP Family Medicine; Visit Provider Internal Medicine | DX: E11.9 Type 2 diabetes mellitus without complications (principal); E78.5 Hyperlipidemia, unspecified; E27.40 Unspecified adrenocortical insufficiency; Z79.4 Long term (current) use of insulin | CPT/HCPCS: 99214 ==

== ENCOUNTER → 2023-01-05 14:20 | Outpatient (BNVA) | payer MEDICARE, OTHER, SELFPAY | PROVIDERS: PCP Family Medicine; Visit Provider Orthopaedic Surgery | DX: M51.27 Other intervertebral disc displacement, lumbosacral region (principal); M48.54XA Collapsed vertebra, not elsewhere classified, thoracic region, initial encounter for fracture; Z01.818 Encounter for other preprocedural examination | CPT/HCPCS: 36415; 80053; 81003; 83036; 85025; 99214 ==

== ENCOUNTER 2023-01-13 09:14 | Day surgery (SDC) | payer MEDICARE, OTHER, SELFPAY ==
[2023-01-08 14:50] VITALS: BMI 37.4
[2023-01-13] VITALS (8 sets, daily range): BP systolic 166–219; BP diastolic 61–87; PULSE 88–94; RESP 16–18; TEMP 36.1–36.4; O2SAT 96–100
--- NOTE | 2023-01-13 | XR_ITS ---
WS: [id number] EXAMINATION: XR lumbar spine 1V [id number] REASON FOR EXAM: or pic. L5 -s1 decompression COMPARISON: None available. ORDER DATE: 01/13/2023 12:00 AM FINDINGS: The C-arm views obtained for surgical indications. IMPRESSION: Single C-arm view demonstrating surgical instrumentation superimposing the L5 level. Total fluoroscop y time 14 seconds
[2023-01-13 10:56] LABS: Glucose Point of Care 201 mg/dL (70-110)
[2023-01-13] MEDS: sodium chloride 0.9% 1,000 ML 30 ML IV (11:22)
--- NOTE | 2023-01-13 11:46 | W.PM.OPSUD ---
Surgery/Procedure H&P Update DATE OF PROCEDURE: January 13, 2023 DATE H&P PERFORMED: 01/05/23 H&P UPDATE INFORMATION: I have reviewed H&P completed within last 30 days, I have examined patient prior to procedure and No changes to prior documentation PREOP DIAGNOSIS: Herniated nucleus pulposus left L5-S1, lumbosacral radiculopathy PLANNED PROCEDURE: Operation Date: 01/13/23 11:25 Proposed Procedures p [id number]:Lumbar Decompression L5, 19956: SI Joint fusion, M51.27:Herniated nucleus pulposus(Not Applicable) - DO tammy Ramirez Sacroiliac Joint Fusion SI Joint Fusion(Not Applicable) - Horace Joya DO
[2023-01-13 12:09] LABS: Glucose Point of Care 191 mg/dL (70-110)
[2023-01-13] MEDS: ceFAZolin 2,000 MG in sodium chloride 0.9% (plus) 50 ML 100 MG IV (12:13)
--- NOTE | 2023-01-13 12:22 | P.ANESASSM_ITS ---
Pre-Anesthetic Assessment Height/Weight: Height 1.65 m Weight 102.058 kg Preop Diagnosis: Herniated nucleus pulposus left L5-S1, lumbosacral radiculopathy Operation Date: 01/13/23 11:25 Proposed Procedures p [id number]:Lumbar Decompression L5, 91119: SI Joint fusion, M51.27:Herniated nucleus pulposus(Not Applicable) - Horace Joya DO s Sacroiliac Joint Fusion SI Joint Fusion(Not Applicable) - Horace Joya DO Familial anesthetic complications: none Was Beta Tracey taken within 24 hours: N/A Was Clonidine taken within 24 hours: N/A Last intake: Intake Last Liquid Date 01/13/23 Last Liquid Time 23:55 Last Solid Date 01/12/23 Last Solid Time 23:00 Social No alcohol and No tobacco Exam alert, oriented x 3, clear to auscultation bilaterally and regular rate & rhythm Airway Submandibular: within normal limits Cervical ROM: within normal limits Mallampati: Class II Dentition: chipped Pulmonary Chronic Obstructive Pulmonary Disease and Sleep Apnea CV/HEM Anemia, Arrythmia, Coronary Artery Disease (stents) and Hypertension GI Gastroesophageal Reflux Disease Metabolic Diabetes Mellitus, Hyperlipidemia and Morbid Obesity Erath's--chronic steroid Musc/skel Lower Back Pain and Osteoarthritis/DJD chronic pain/opioid Neuropsych Anxiety and Depression Anesthetic Plan ASA status: 3 Anesthesia: General Other: Half dose of stress steroids. Medications/Allergies Home Medications Medication Instructions Recorded Confirmed Last Taken Type Lactobacillus acidophilus 1 cap PO QAM 06/01/19 01/12/23 01/08/23 History (Acidophilus capsule) cholecalciferol (vitamin D3) 25 1,000 unit PO QPM 06/01/19 01/12/23 01/08/23 History mcg (1,000 unit) capsule cranberry 500 mg capsule 500 mg PO QPM 06/01/19 01/12/23 01/08/23 History dicyclomine 10 mg capsule 10 mg PO QID 06/01/19 01/12/23 01/08/23 History ferrous sulfate 325 mg (65 mg 325 mg PO DAILY@12 06/21/19 01/12/23 01/08/23 History iron) tablet atorvastatin 40 mg tablet 40 mg PO BEDTIME 09/06/20 01/12/23 01/08/23 History lactulose 10 gram/15 mL oral 15 ml PO DAILY@02/11/21 01/12/23 01/08/23 History solution magnesium oxide 400 mg (241.3 mg 500 mg PO DAILY@02/14/21 01/12/23 01/08/23 History magnesium) tablet polyethylene glycol 3350 17 17 g PO DAILY 03/24/21 01/12/23 10/29/22 History gram/dose oral powder (Miralax) nitroglycerin 0.4 mg sublingual 0.4 mg sublingual Q5M PRN chest 06/03/21 01/12/23 07/23/21 Rx tablet pain 30 days #30 tabs albuterol sulfate 90 mcg/actuation 2 puff inhalation QID PRN 07/24/21 01/12/23 10/29/22 History aerosol inhaler Shortness Of Breath chlorthalidone 25 mg tablet 25 mg PO DAILY high blood pressure 08/20/21 01/12/23 01/08/23 Rx #90 tabs blood sugar diagnostic #400 ea 09/02/21 01/12/23 10/27/22 Rx lancets 21 gauge (Comfort EZ #400 ea 09/02/21 01/12/23 10/27/22 Rx Lancets) blood sugar diagnostic (Easymax 15 #400 ea 09/11/21 01/12/23 10/27/22 Rx test strips) ascorbic acid (vitamin C) 500 mg 500 mg PO DAILY@11/14/21 01/12/23 01/08/23 History chewable tablet (Vitamin C) vitamin E 670 mg (1,000 unit) 1,000 unit PO DAILY 11/14/21 01/12/23 01/08/23 History capsule clopidogrel 75 mg tablet 75 mg PO QPM #90 tabs 01/12/22 01/12/23 01/07/23 Rx blood-glucose meter,continuous #1 ea 01/14/22 01/12/23 10/27/22 Rx (Dexcom G6 Diesel Pile Hammer Operator) blood-glucose sensor (Dexcom G6 #9 ea 01/14/22 01/12/23 10/27/22 Rx Sensor device) blood-glucose transmitter (Dexcom #3 ea 01/14/22 01/12/23 10/27/22 Rx G6 Transmitter device) pen needle, diabetic 31 gauge x #400 ea 01/16/22 01/12/23 10/27/22 Rx 3/16 (BD Ultra-Fine Mini Pen Needle) flash glucose scanning reader #1 ea 02/17/22 01/12/23 10/27/22 Rx (FreeStyle Tor 2 [place]) flash glucose sensor (FreeStyle #3 ea 02/17/22 01/12/23 10/27/22 Rx Tor 2 Sensor kit) ondansetron 4 mg disintegrating 4 mg PO Q8H PRN nausea and 04/24/22 01/12/23 10/29/22 Rx tablet vomiting #7 tabs esomeprazole magnesium 40 mg 40 mg PO DAILY 05/19/22 01/12/23 01/08/23 History capsule,delayed release furosemide 20 mg tablet 60 mg PO DAILY 05/19/22 01/12/23 01/08/23 History potassium chloride 8 mEq 24 meq PO DAILY 05/19/22 01/12/23 01/08/23 History capsule,extended release valsartan 320 mg tablet 320 mg PO DAILY #90 tabs 05/26/22 01/12/23 01/08/23 Rx citalopram 40 mg tablet 40 mg PO QAM #30 tabs 07/10/22 01/12/23 01/08/23 Rx aripiprazole 2 mg tablet (Abilify) 2 mg PO .qhs #30 tabs 09/25/22 01/12/23 0 01/08/23 Rx isosorbide mononitrate 120 mg 120 mg PO DAILY #90 tabs 10/02/22 01/12/23 01/08/23 Rx tablet,extended release 24 hr insulin lispro 100 unit/mL 22 unit (0.22 mL) SUBCUT TID #30 mL 10/06/22 01/12/23 01/08/23 Rx subcutaneous pen (Humalog KwikPen (U-100) Insulin) insulin degludec 200 unit/mL (3 36 unit SUBCUT QPM 10/29/22 01/12/23 01/08/23 History mL) subcutaneous pen (Tresiba FlexTouch U-200 insulin) linaclotide 290 mcg capsule 290 mcg PO DAILY #90 caps 12/10/22 01/12/23 01/08/23 Rx hydrocortisone 10 mg tablet See Rx Instructions .Route 01/11/23 01/13/23 01/13/23 06:00 Rx .COMPLEX #360 tabs hydrocodone 10 mg-acetaminophen 1 tab PO Q6H PRN Pain 01/12/23 01/13/23 01/13/23 06:00 History 325 mg tablet Allergies Allergy/AdvReac Type Severity Reaction Status Date / Time morphine Allergy Severe RESPIRATORY Verified 01/12/23 13:46 DISTRESS doxycycline Allergy Mild THROAT Verified 01/12/23 13:46 SWELLING duloxetine [From Cymbalta] Allergy Mild SWELLING, Verified 01/12/23 13:46 VOMITING metformin Allergy Mild THROAT Verified 01/12/23 13:46 SWELLING oxybutynin [From Oxytrol] Allergy Mild ALGY-Rash Verified 01/12/23 13:46 Penicillins Allergy Mild ALGY-Rash Verified 01/12/23 13:46 Sulfa (Sulfonamide Allergy Mild STOMACH Verified 01/12/23 13:46 Antibiotics) CRAMPS alprazolam [From Xanax] Allergy Unknown Unknown Verified 01/12/23 13:46 amitriptyline Allergy Unknown Unknown Verified 01/12/23 13:46 Barbiturates Allergy Unknown Unknown Verified 01/12/23 13:46 cefuroxime [From Ceftin] Allergy Unknown Unknown Verified 01/12/23 13:46 insulin detemir Allergy Unknown Unknown Verified 01/12/23 13:46 [From Levemir U-100 Insulin] levofloxacin [From Levaquin] Allergy Unknown Unknown Verified 01/12/23 13:46 liraglutide [From Victoza] Allergy Unknown Unknown Verified 01/12/23 13:46 metoclopramide [From Reglan] Allergy Unknown Unknown Verified 01/12/23 13:46 nitrofurantoin Allergy Unknown Unknown Verified 01/12/23 13:46 [From Macrobid] pregabalin [From Lyrica] Allergy Unknown Unknown Verified 01/12/23 13:46 meloxicam AdvReac Severe ADR-Vomitin Verified 01/12/23 13:46 g ciprofloxacin [From Cipro] AdvReac Mild stomach Verified 01/12/23 13:46 upset hydromorphone [From Dilaudid] AdvReac Unknown PT STATES Verified 01/12/23 13:46 IT MAKES ME CRAZY Current Medications Generic Name Dose Route Start Last Admin Trade Name Freq PRN Reason Stop Dose Admin Sodium Chloride 1,000 mls @ 30 mls/hr 01/13/23 10:15 01/13/23 11:22 Sodium Chloride 0.9% IV 01/14/23 10:14 30 mls/hr .Q24H TEJA Administration PFSH Anesthesia Medical History Acute cystitis Anemia, chronic disease 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 Left axis deviation. Normal MO and QRS duration. Intervertebral disc disorder with radiculopathy of lumbosacral region Psychiatric care Psychiatric care Recurrent UTI Status post left heart catheterization Surgical History History of colonoscopy (~2017) History of coronary artery stent placement History of right knee surgery Hx of bilateral hip replacements Hx of bladder repair surgery S/P appendectomy S/P hernia repair S/P hip replacement S/P hysterectomy Family History Family/Other Diabetes Other Cancer Social History Smoking and tobacco status: never smoked Alcohol intake: never Substance/Drug Use: never Household members: spouse Marital status: Current occupational status: retired Data Anesthesia Cardiac Studies: Echocardiogram 11/14/21 Sestamibi Stress Test (Cardiology) 03/07 Holter Monitor 04/29/21
[2023-01-13] MEDS: lidocaine-epi 1% 20 mL INJ INJECTION (12:40)
[2023-01-13] MEDS: vancomycin 1,000 MG SDV 1000 MG XX (12:58)
--- NOTE | 2023-01-13 13:19 | P.OP_ITS ---
Operative Report Date of procedure: January 13, 2023 Pre-op diagnosis: Preop Diagnosis Herniated nucleus pulposus left L5-S1, lumbosacral radiculopathy Post-op diagnosis: same Procedure done: L5-S1 laminectomy with partial facetectomy and discectomy Surgeon: Horace Joya Electric Distribution Engineer: Edwar Diaz Electric Distribution Engineer: The orthopedic assistant, Edwar Diaz, PAC was needed for his expertise under the microscope. He was important and necessary throughout the procedure to complete in a safe and timely manner. He assisted with patient positioning prepping and draping tissue retraction suctioning of the operative field protection of the dural sac and tissue closure Estimated blood loss (mL): 15 Procedure: L5-S1 laminectomy with partial facetectomy and discectomy Patient is brought to the operative suite. After undergoing anesthesia they are placed in the prone position. All areas of impingement are well padded. Patient is then prepped and draped in the normal sterile fashion. A skin incision is made over the L5-S1 level. This is confirmed under c-arm guidance. A series of dilators are passed and the tubular retractor is docked on the L5 lamina. A bovie is used to clear the soft tissue off the lamina and the L 5/S1 facet joint. A high speed reji is then used to perform the laminectomy and take down the medial aspect of the L 5/S1 facet joint. A kerrison rongeure was then used to take down the remaining lamina and smooth the edge of the laminectomy up to the point where the ligamentum flavum attaches. Attention was then brought to the medial aspect of the facet joint. The remaining medial aspect of the superior and inferior aspect of the facet joint were taken down with the kerrison from the pedicle of L5 to s1. The facet joint had significant hypertrophy. Attention was then brought to the Ligamentum Flavum. The ligament was taken down from the lamina of L5 to S1 and out medially to the remaining facet joint. The ligament was thick. The dura was then exposed. The dura was in good repair. The S1 nerve root was retracted medially and using curettes to get through the displaced the disc was opened micropituitary was used to free disc material. There are some calcified disc overlying this which was removed. This space was irrigated out. The L5 nerve was then traced with a curette out the L5/s1 foramen and found to be adequately decompressed. The S1 nerve was traced with a curette around the S1 pedicle. The lateral recess was opened with a kerrison helping to further decompress the S1 nerve. Wound is then irrigated copiously with saline and surgiflo is used to stop any bleeding. The tubular retractor is removed and the wound is closed with vicryl and monocryl suture. Glue is then used to protect the wound. A sterile dressing is then placed. Patient was then placed in the supine position and transferred to the PACU in stable condition.
[2023-01-13] MEDS: HYDROcodone-acetaminophen 10-325 mg Tablet 1 TAB PO (14:35)
--- NOTE | 2023-01-13 16:36 | ANE.PACU2 ---
Inpatient post-anesthesia follow up: Airway intact: Yes Vital signs: Temperature 97.6 F Pulse Rate 94 Respiratory Rate 18 Blood Pressure 168/66 Pulse Oximetry 98 Oxygen Delivery Me thod Room Air Oxygen Flow Rate 6 Fraction of Inspir ed Oxygen Hydration adequate: Yes Nausea and vomiting: No Pain level: 2 Mental status: Baseline
== END 2023-01-13 14:52 | disposition home or self-care (01) ==
PROVIDERS: PCP Family Medicine; Visit Provider Orthopaedic Surgery
PROC: (CPT 63005; principal; 2023-01-13 11:15)
PROC: (CPT 27280; 2023-01-13 11:15)
DX: M54.17 Radiculopathy, lumbosacral region (principal); J44.9 Chronic obstructive pulmonary disease, unspecified; G47.30 Sleep apnea, unspecified; I25.10 Atherosclerotic heart disease of native coronary artery without angina pectoris; Z95.5 Presence of coronary angioplasty implant and graft; I10 Essential (primary) hypertension; K21.9 Gastro-esophageal reflux disease without esophagitis; E11.9 Type 2 diabetes mellitus without complications; E78.5 Hyperlipidemia, unspecified; E66.01 Morbid (severe) obesity due to excess calories; Z68.37 Body mass index [BMI] 37.0-37.9, adult
CPT/HCPCS: 63030; 36416; 72020; 76000; 82962; J0690; J1720; J2250; J2405; J2704; J2710; J3010; J3370; J3490; J7030

== ENCOUNTER 2023-01-16 18:18 | Emergency (ER) | payer MEDICARE, OTHER, SELFPAY ==
[2023-01-16 18:24] VITALS: BP 138/53; PULSE 83; RESP 18; TEMP 36.8; O2SAT 95; BMI 36.6
--- NOTE | 2023-01-16 18:50 | XRR_ITS ---
PROCEDURE INFORMATION: Exam: XR Chest Exam date and time: 01/16/2023 6:59 PM Age: 77 years old Clinical indication: Prior surgery; Surgery date: 6+ months; Surgery type: Gb; Patient HX: C/O left sided chest wall pain; Additional info: Left sided cp, cough, surgery last week TECHNIQUE: Imaging protocol: Radiologic exam of the chest. Views: 1 view. COMPARISON: CR XR chest 1V portable [id number] 06/10/2022 4:29 PM FINDINGS: Lungs: There is discoid atelectasis in the mid to lower left lung. There is also minimal left basilar infiltrate or atelectasis present. Pleural spaces: Unremarkable. No pleural effusion. No pneumothorax. Heart/Mediastinum: Heart size is unchanged. Bones/joints: Bones are stable. XR/XR chest 1V portable [id number] IMPRESSION: Minimal left basilar atelectasis or infiltrate. Correlate for infection.
[2023-01-16 18:56] LABS: Basophils % 0.2 %; Eosinophils # 0.2 10^3/uL (0.0-0.8); Eosinophils % 2.2 %; Hematocrit 34.8 % (36-47); Lymphocytes # 2.2 10^3/uL (0.8-4.8); Lymphocytes % 27.8 %; Mean Corpuscular Hemoglobin 30.5 pg (27-33); Mean Corpuscular Volume 92.3 fl (85-98); Mean Platelet Volume 10.6 fL (7.4-10.4); Monocytes # 0.9 10^3/uL (0.2-0.9); Monocytes % 11.2 %; Neutrophils # 4.65 10^3/uL (1.8-7.7); Neutrophils % 58.2 %; Nucleated Red Blood Cells % 0 %; Platelet Count 217 10^3/cmm (157-399); Red Blood Count 3.77 10^6/uL (3.85-5.65); White Blood Count 8.01 10^3/uL (3.29-11.43)
[2023-01-16] MEDS: ketorolac 30 mg/mL INJ IVP (19:12)
[2023-01-16] MEDS: ondansetron 2 mg/ML SDV 2 mL 4 MG IVP (19:13)
[2023-01-16 19:17] LABS: Alanine Aminotransferase 26 U/L (0-33); Albumin Level 3.7 g/dL (3.5-5.2); Alkaline Phosphatase 157 U/L (35-105); Anion Gap 10.2 (5-19); Aspartate Amino Transferase 26 U/L (0-32); Blood Urea Nitrogen 15 mg/dL (8-23); Calcium 9.7 mg/dL (8.5-10.5); Carbon Dioxide 31 mmol/L (22-29); Chloride 91 mmol/L (98-107); Globulin 3.2 g/dL (1.3-4.6); Glucose 230 mg/dL (65-115); Osmolality Calculated 274 mOsm/kg (285-295); Potassium 4.2 mmol/L (3.5-5.1); Sodium 128 mmol/L (136-145); Total Bilirubin 0.3 mg/dL (0.15-1.2); Total Protein 6.9 g/dL (6.6-8.7)
[2023-01-16 19:21] LABS: Lactic Sepsis W/Reflex 1.3 mmol/L (0.5-2.2)
--- NOTE | 2023-01-16 19:39 | ED_ITS ---
HPI - Chest Pain General: Chief Complaint: Abdominal Pain Stated Complaint: Rib Pain Time Seen by Provider: 01/16/23 18:37 History of Present Illness: 77-year-old female well-known to the ER service. She presents complaining of left-sided pleuritic reproducible chest discomfort after having surgery on her back this past week. She has had a cough. Productive of minimal sputum. She says that she has been running a 99 temperature. Pain is worse with deep breathing. No numbness or tingling. No dizziness. No abdominal pain. She notes that her back pain is tolerable at this point. 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 Left axis deviation. Normal ID and QRS duration. Intervertebral disc disorder with radiculopathy of lumbosacral region Psychiatric care Psychiatric care Recurrent UTI Status post left heart catheterization Surgical History History of colonoscopy (~2018) History of coronary artery stent placement History of right knee surgery Hx of bilateral hip replacements Hx of bladder repair surgery S/P appendectomy S/P hernia repair S/P hip replacement S/P hysterectomy Family History Family/Other Diabetes Other Cancer Social History (Reviewed 01/16/23 @ 19:40 by EDDIE Cabrera Smoking and tobacco status: never smoked Alcohol intake: never Substance/Drug Use: never Household members: spouse Marital status: Current occupational status: retired Physical Exam Const: COMMON NORMALS: no acute distress GENERAL APPEARANCE: cooperative and anxious; not ill appearing and not frail appearing HENMT: COMMON NORMALS: normocephalic, atraumatic and Normal external nose present HEAD & SCALP: normocephalic and atraumatic FACE & SINUS: normal facial exam and face symmetric NOSE: Normal external nose present Eye: COMMON NORMALS: Equal, round and reactive pupils present and EOMs intact bilaterally PUPIL: Yes Equal, round and reactive pupils present Neck/C-Spine: GENERAL: Yes trachea midline Chest: CHEST: Yes Symmetrical chest wall rise Resp: COMMON NORMALS: normal respiratory effort, No retractions, No use of accessory muscles and clear to auscultation bilaterally AUSCULTATION: clear to auscultation bilaterally Cardio: COMMON NORMALS: regular rate and regular rhythm RATE: regular rate RHYTHM: regular rhythm GI: COMMON NORMALS: Normal to inspection, nondistended, normoactive bowel sounds present Extremity: COMMON NORMALS: no pedal edema Neuro: ANA M COMA SCALE: document GCS findings [place] coma scale eye opening: Spontaneous Ana M coma scale verbal response: Orientated Ana M coma scale motor response: Obey commands [place] coma scale total score: 15 SENSORY EXAM: Yes extremities (intact) Psych: COMMON NORMALS: speech normal SPEECH: Yes normal speech Skin: COMMON NORMALS: no rashes or lesions noted GENERAL SKIN EXAM: no rashes or lesions noted Course Vital Signs: Vital signs: Vital Signs Temperature 98.3 F 01/16/23 18:24 Pulse Rate 70 01/16/23 20:49 Respiratory Rate 18 01/16/23 20:49 Blood Pressure 148/70 01/16/23 20:49 Pulse Oximetry 95 01/16/23 20:49 Oxygen Delivery Me thod Room Air 01/16/23 18:24 MDM - Chest Pain Medical Decision Making 77 year old female with pleuritic left sided chest discomfort. Chest X-ray shows minimal infiltrate and the left base likely is the cause of her symptoms. Appears to be post anesthesia early pneumonia. She's not hypoxic. she is not tachycardic. White blood cell count is eight. CRP is 35. Lactic acid is normal at 1.3. She'll be treated with antibiotics here, and as an outpatient period to return for any worsening symptoms. Lab Data 01/16/23 18:31 01/16/23 18:31 Radiology Impressions Chest X-Ray 01/16/23 18:50 IMPRESSION: Minimal left basilar atelectasis or infiltrate. Correlate for infection. Laboratory Results WBC 8.01 10^3/uL (3.29-11.43) 01/16/23 18: RBC 3.77 10^6/uL (3.85-5.65) L 01/16/23 18: Hgb 11.50 g/dL (11.27-16.99) 01/16/23 18: Hct 34.8 % (36-47) L 01/16/23 18: MCV 92.3 fl (85-98) 01/16/23 18: MCH 30.5 pg (27-33) 01/16/23 18: MCHC 33.0 g/dL (30-55) 01/16/23 18: RDW 13.0 % (12.1-15.1) 01/16/23 18: Plt Count 217 10^3/cmm (157-399) 01/16/23 18: MPV 10.6 fL (7.4-10.4) H 01/16/23 18: Neut % (Auto) 58.2 % 01/16/23 18: Lymph % (Auto) 27.8 % 01/16/23 18: [place] % (Auto) 11.2 % 01/16/23 18: Eos % (Auto) 2.2 % 01/16/23 18: Baso % (Auto) 0.2 % 01/16/23 18: Neut # (Auto) 4.65 10^3/uL (1.8-7.7) 01/16/23 18: Lymph # (Auto) 2.2 10^3/uL (0.8-4.8) 01/16/23 18: [place] # (Auto) 0.9 10^3/uL (0.2-0.9) 01/16/23 18: Eos # (Auto) 0.2 10^3/uL (0.0-0.8) 01/16/23 18: Baso # (Auto) 0.0 10^3/uL (0.0-0.1) 01/16/23 18:31 Nucleated RBC % (auto) 0 % 01/16/23 18:31 Nucleated RBCs # 0.0 /100WBC 01/16/23 18:31 Sodium 128 mmol/L (136-145) L 01/16/23 18:31 Potassium 4.2 mmol/L (3.5-5.1) 01/16/23 18:31 Chloride 91 mmol/L (98-107) L 01/16/23 18:31 Carbon Dioxide 31 mmol/L (22-29) H 01/16/23 18:31 Anion Gap 10.2 (5-19) 01/16/23 18:31 BUN 15 mg/dL (8-23) 01/16/23 18:31 Creatinine 0.6 mg/dL (0.5-0.9) 01/16/23 18:31 GFR Calculation Not Reportable 01/16/23 18:31 Glucose 230 mg/dL (65-115) H 01/16/23 18:31 Calculated Osmolality 274 mOsm/kg (285-295) L 01/16/23 18:31 Lactic Acid 1.3 mmol/L (0.5-2.2) 01/16/23 18:57 Calcium 9.7 mg/dL (8.5-10.5) 01/16/23 18:31 Total Bilirubin 0.3 mg/dL (0.15-1.2) 01/16/23 18:31 AST 26 U/L (0-32) 01/16/23 18:31 ALT 26 U/L (0-33) 01/16/23 18:31 Alkaline Phosphatase 157 U/L (35-105) H 01/16/23 18:31 C-Reactive Protein 35.0 mg/L (0.0-4.9) H 01/16/23 18:31 Total Protein 6.9 g/dL (6.6-8.7) 01/16/23 18:31 Albumin 3.7 g/dL (3.5-5.2) 01/16/23 18:31 Globulin 3.2 g/dL (1.3-4.6) 01/16/23 18:31 Discharge Plan Discharge Patient Disposition: Home Clinical Impression: Pneumonia Condition: Stable Prescriptions: New azithromycin 250 mg tablet See Rx Instructions .ROUTE .COMPLEX Qty: 6 0RF Rx Instructions: For 250 mg dose pack: take 500 mg today (day 1), then 250 mg for 4 days (days 2-5) No Action dicyclomine 10 mg capsule 10 mg PO QID lactulose 10 gram/15 mL solution 15 ml PO DAILY@12 polyethylene glycol 3350 [Miralax] 17 gram/dose powder 17 g PO DAILY chlorthalidone 25 mg tablet 25 mg PO DAILY Qty: 90 2RF cholecalciferol (vitamin D3) 1,000 unit capsule 1,000 unit PO QPM cranberry 500 mg capsule 500 mg PO QPM Lactobacillus acidophilus [Acidophilus] Capsule 1 cap PO QAM ferrous sulfate 325 mg (65 mg iron) tablet 325 mg PO DAILY@12 magnesium oxide 400 mg (241.3 mg magnesium) tablet 500 mg PO DAILY@12 nitroglycerin 0.4 mg tablet, sublingual 0.4 mg sublingual Q5M PRN (Reason: chest pain) 30 Days Qty: 30 3RF Rx Instructions: until response; do not exceed 3 doses per episode furosemide 20 mg tablet 60 mg PO DAILY citalopram 40 mg tablet 40 mg PO QAM Qty: 30 11RF aripiprazole [Abilify] 2 mg tablet 2 mg PO .qhs Qty: 30 5RF potassium chloride 8 mEq capsule, extended release 24 meq PO DAILY (DME) FreeStyle Tor 2 Sensor Kit See Rx Instructions .MEDSUPPLY Qty: 3 3RF Rx Instructions: As directed (DME) FreeStyle Tor 2 [place] Misc See Rx Instructions .Route Qty: 1 0RF Rx Instructions: As directed esomeprazole magnesium 40 mg capsule,delayed release(DR/EC) 40 mg PO DAILY insulin lispro [Humalog KwikPen Insulin] 100 unit/mL insulin pen 22 unit SUBCUT TID Qty: 30 3RF hydrocodone-acetaminophen 10-325 mg tablet 1 tab PO Q6H PRN (Reason: Pain) (DME) blood sugar diagnostic Strip See Rx Instructions .Route Qty: 400 3RF Rx Instructions: Check blood sugar 4 times a day. (DME) lancets [Comfort EZ Lancets] 21 gauge misc See Rx Instructions .Route Qty: 400 3RF Rx Instructions: As directed (DME) Easymax 15 test strips Strip See Rx Instructions .Route Qty: 400 3RF Rx Instructions: Check BS 4 times a day. clopidogrel 75 mg tablet 75 mg PO QPM Qty: 90 3RF Hold Instructions: Resume on 11/02/22. (DME) Dexcom G6 Marine [employer] Claim Examiner Misc See Rx Instructions .Route Qty: 1 0RF Rx Instructions: Check BS 4-6 times a day. (DME) Dexcom G6 Sensor Device See Rx Instructions .Route Qty: 9 3RF Rx Instructions: Change every 10 days. (DME) Dexcom G6 Transmitter Device See Rx Instructions .Route Qty: 3 3RF Rx Instructions: Change every 90 days (DME) pen needle, diabetic [BD Ultra-Fine Mini Pen Needle] 31 gauge x 3/16 needle See Rx Instructions .ROUTE .COMPLEX Qty: 400 3RF Dose Instruction: USE DIRECTED Rx Instructions: QID valsartan 320 mg tablet 320 mg PO DAILY Qty: 90 3RF isosorbide mononitrate 120 mg tablet extended release 24 hr 120 mg PO DAILY Qty: 90 3RF linaclotide 290 mcg capsule 290 mcg PO DAILY Qty: 90 3RF hydrocortisone 10 mg tablet See Rx Instructions .ROUTE .COMPLEX Qty: 360 0RF Dose Instruction: TAKE 1 TABLET BY MOUTH FOUR TIMES DAILY Rx Instructions: TAKE 1 TABLET BY MOUTH FOUR TIMES DAILY atorvastatin 40 mg tablet 40 mg PO BEDTIME albuterol sulfate 90 mcg/actuation HFA aerosol inhaler 2 puff INHALATION QID PRN (Reason: Shortness Of Breath) vitamin E 1,000 unit Capsule 1,000 unit PO DAILY ascorbic acid (vitamin C) [Vitamin C] 500 mg Tablet,Chewable 500 mg PO DAILY@12 ondansetron 4 mg tablet,disintegrating 4 mg PO Q8H PRN (Reason: nausea and vomiting) Qty: 7 0RF insulin degludec [Tresiba FlexTouch U-200] 200 unit/mL (3 mL) insulin pen 36 unit SUBCUT QPM hydrocodone-acetaminophen 10-325 mg tablet 1 - 2 tab PO Q4H PRN (Reason: pain) 7 Days Qty: 40 0RF Discharge Orders: Discharge ED (Routine); Ordered 01/16/23 Ordered By: Monty Briseno Referrals: Arabella Orta MD [Primary Care Provider] - 1-3 days Patient Instructions: Pneumonia (ED), Opioid Safety, Pain Management Activity Restrictions/Additional Instructions: Return for worsening shortness of breath despite treatment, worsening pain despite treatment, fever despite 2-3 doses of antibiotics, other concerning symptoms. See your doctor next week. Coding Level of Care Code ED Supervisor [employer] for [employer]
[2023-01-16 20:49] VITALS: BP 148/70; PULSE 70; RESP 18; O2SAT 95
[2023-01-16] MEDS: azithromycin 250 mg Tablet 1000 MG PO (20:52)
--- NOTE | 2023-01-16 21:26 | PC.NURSE ---
IV removed. and dressed with gz and coband
== END 2023-01-16 21:18 | disposition home or self-care (01) ==
PROVIDERS: Emergency Provider Emergency Medicine; PCP Family Medicine
DX: J95.89 Other postprocedural complications and disorders of respiratory system, not elsewhere classified (principal)
CPT/HCPCS: 71045; 80053; 83605; 85025; 86140; 96374; 96375; 99284; J1885; J2405; Q0144

== ENCOUNTER → 2023-01-28 09:48 | Outpatient (BNVA) | payer MEDICARE, OTHER, SELFPAY | PROVIDERS: PCP Family Medicine; Visit Provider Orthopaedic Surgery | DX: Z47.89 Encounter for other orthopedic aftercare (principal) | CPT/HCPCS: 99024 ==

== ENCOUNTER → 2023-02-02 09:25 | Outpatient (BNVA) | payer MEDICARE, OTHER, SELFPAY | PROVIDERS: PCP Family Medicine; Visit Provider Podiatrist Foot & Ankle Surgery | DX: I73.9 Peripheral vascular disease, unspecified (principal); R09.89 Other specified symptoms and signs involving the circulatory and respiratory systems; E11.42 Type 2 diabetes mellitus with diabetic polyneuropathy; L60.3 Nail dystrophy; L84 Corns and callosities; Z79.4 Long term (current) use of insulin | CPT/HCPCS: 11056; 11721; 99203 ==

== ENCOUNTER 2023-02-08 23:29 | Emergency (ER) | payer MEDICARE, OTHER, SELFPAY ==
[2023-02-08 23:37] VITALS: BP 161/73; PULSE 84; RESP 18; TEMP 36.6; O2SAT 98; BMI 37.0
[2023-02-09 00:40] LABS: Basophils % 0.5 %; Eosinophils # 0.2 10^3/uL (0.0-0.8); Eosinophils % 2.4 %; Hematocrit 36.9 % (36-47); Lymphocytes # 1.3 10^3/uL (0.8-4.8); Lymphocytes % 17.5 %; Mean Corpuscular HGB Conc 33.9 g/dL (30-55); Mean Corpuscular Hemoglobin 30.1 pg (27-33); Mean Corpuscular Volume 88.9 fl (85-98); Mean Platelet Volume 9.4 fL (7.4-10.4); Monocytes # 0.8 10^3/uL (0.2-0.9); Monocytes % 10.2 %; Neutrophils # 5.21 10^3/uL (1.8-7.7); Neutrophils % 68.9 %; Nucleated Red Blood Cells % 0 %; Platelet Count 196 10^3/cmm (157-399); Red Blood Count 4.15 10^6/uL (3.85-5.65); White Blood Count 7.56 10^3/uL (3.29-11.43)
[2023-02-09 00:56] LABS: Alanine Aminotransferase 24 U/L (0-33); Alkaline Phosphatase 207 U/L (35-105); Anion Gap 14.7 (5-19); Aspartate Amino Transferase 21 U/L (0-32); Blood Urea Nitrogen 15 mg/dL (8-23); Calcium 9.9 mg/dL (8.5-10.5); Carbon Dioxide 27 mmol/L (22-29); Chloride 83 mmol/L (98-107); Globulin 3.1 g/dL (1.3-4.6); Glucose 340 mg/dL (65-115); Lipase 41 U/L (13-60); Osmolality Calculated 266 mOsm/kg (285-295); Potassium 3.7 mmol/L (3.5-5.1); Sodium 121 mmol/L (136-145); Total Bilirubin 0.4 mg/dL (0.15-1.2); Total Protein 7.1 g/dL (6.6-8.7)
[2023-02-09 00:59] LABS: Add Urine Microscopic? YES; Bilirubin Urine Neg (Negative); Blood Urine Neg (Negative); Glucose Urine UA 4+ (Normal); Ketones Urine Negative (Negative); Leukocyte Esterase Urine 2+ (Negative); Nitrate Urine Negative (Negative); Protein Urine Neg (Negative); Specific Gravity, Urine 1.015 (1.005-1.030); Squamous Epithelial Cell Urine 0-4 /hpf (0-5); Urine Appearance Clear (CLEAR); Urine Color Yellow (Yellow); Urobilinogen Urine Neg (Negative); pH Urine 6 (5-7)
[2023-02-09 01:00] LABS: Add Urine Culture? No; Bacteria Urine TRACE /hpf; Mucus Urine 1+ /hpf
[2023-02-09] MEDS: ondansetron 2 mg/ML SDV 2 mL 4 MG IM (01:16)
--- NOTE | 2023-02-09 01:25 | ED_ITS ---
HPI - Abdominal Pain General: Chief Complaint: Abdominal Pain Stated Complaint: abdomen pain,diarrhea, cough Time Seen by Provider: 02/09/23 00:25 History of Present Illness: Patient presents to the ER with complaints of nausea vomiting abdominal pain over the last 5 days or so. Patient is also states during his time she is quit her hydrocodone that she has been on for years and is not taking any of them. Patient also states she has had a head cold with a lot of sinus congestion and postnasal drip. 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 Left axis deviation. Normal IL and QRS duration. Intervertebral disc disorder with radiculopathy of lumbosacral region Psychiatric care Psychiatric care Recurrent UTI Status post left heart catheterization Surgical History History of colonoscopy (~2018) History of coronary artery stent placement History of right knee surgery Hx of bilateral hip replacements Hx of bladder repair surgery S/P appendectomy S/P hernia repair S/P hip replacement S/P hysterectomy Family History Family/Other Diabetes Other Cancer Social History Smoking and tobacco status: never smoked Alcohol intake: never Substance/Drug Use: never Household members: spouse Marital status: Current occupational status: retired Physical Exam 2 Const: COMMON NORMALS: no acute distress, average body habitus, patient oriented x3, no limitations, healthy appearing, alert and well nourished HENMT: COMMON NORMALS: normocephalic, atraumatic, hearing grossly normal bilaterally, external ears normal, Normal external nose present and moist oral mucous membranes HEAD & SCALP: normocephalic and atraumatic NOSE: Normal external nose present EXTERNAL EAR: Yes external ears normal Neck/C-Spine: COMMON NORMALS: no JVD Chest: COMMONS NORMALS: normal inspection of the chest and normal palpation of entire chest wall Resp: COMMON NORMALS: normal respiratory effort, No retractions, No use of accessory muscles and clear to auscultation bilaterally AUSCULTATION: clear to auscultation bilaterally Cardio: COMMON NORMALS: no JVD, regular rate, regular rhythm, S1 normal heart sound present, S2 normal heart sound present, No gallops present (Cardio), No clicks present (Cardio), No murmurs present (Cardio) and No rub (Cardio) RATE: regular rate RHYTHM: regular rhythm HEART SOUNDS: S1 normal heart sound present and S2 normal heart sound present GI: COMMON NORMALS: Normal to inspection, nondistended, normoactive bowel sounds present, Soft to palpation, non-tender, No hepatosplenomegaly present and no masses PALPATION: Yes Soft to palpation and Yes No hepatosplenomegaly present : COMMON NORMALS: Yes no CVA tenderness BLADDER/KIDNEY EXAM: Yes no CVA tenderness Back/Pelvis: COMMON NORMALS: no CVA tenderness Neuro: COMMON NORMALS: patient oriented x3 SENSORIUM/ORIENTATION: Yes alert Course Vital Signs: Vital signs: Vital Signs Temperature 97.8 F 02/08/23 23:37 Pulse Rate 84 02/08/23 23:37 Respiratory Rate 18 02/08/23 23:37 Blood Pressure 161/73 02/08/23 23:37 Pulse Oximetry 98 02/08/23 23:37 Oxygen Delivery Me thod Room Air 02/08/23 23:37 MDM - Abdominal Pain Medical Decision Making Patient presents with nausea vomiting diarrhea has been ongoing for about the last 5 days. Patient was worked up in a standard fashion. Patient noted to have a urinary tract infection as well as hyperglycemia and hyponatremia. All of these are chronic with the patient except UTI. Patient does states she can take Cipro as an antibiotic. Patient will be discharged with Cipro for UTI and instructed to follow-up with her family practice physician in approximately 7 days as needed. Differential Diagnosis Unlikely abdominal pain, acute appendicitis, calculus of kidney, constipation, diverticulitis, endometriosis, gastroenteritis, pancreatitis or small bowel obstruction Medical Records I reviewed the patient's medical records. Lab Data I reviewed the patient's lab results. 02/09/23 00:33 02/09/23 00:33 Labs/Radiology: Laboratory Results WBC 7.56 10^3/uL (3.29-11.43) 02/09/23 00:33 RBC 4.15 10^6/uL (3.85-5.65) 02/09/23 00:33 Hgb 12.50 g/dL (11.27-16.99) 02/09/23 00:33 Hct 36.9 % (36-47) 02/09/23 00:33 MCV 88.9 fl (85-98) 02/09/23 00:33 MCH 30.1 pg (27-33) 02/09/23 00:33 MCHC 33.9 g/dL (30-55) 02/09/23 00:33 RDW 13.0 % (12.1-15.1) 02/09/23 00:33 Plt Count 196 10^3/cmm (157-399) 02/09/23 00:33 MPV 9.4 fL (7.4-10.4) 02/09/23 00:33 Neut % (Auto) 68.9 % 02/09/23 00:33 Lymph % (Auto) 17.5 % 02/09/23 00:33 [place] % (Auto) 10.2 % 02/09/23 00:33 Eos % (Auto) 2.4 % 02/09/23 00:33 Baso % (Auto) 0.5 % 02/09/23 00:33 Neut # (Auto) 5.21 10^3/uL (1.8-7.7) 02/09/23 00:33 Lymph # (Auto) 1.3 10^3/uL (0.8-4.8) 02/09/23 00:33 [place] # (Auto) 0.8 10^3/uL (0.2-0.9) 02/09/23 00:33 Eos # (Auto) 0.2 10^3/uL (0.0-0.8) 02/09/23 00:33 Baso # (Auto) 0.0 10^3/uL (0.0-0.1) 02/09/23 00:33 Nucleated RBC % (auto) 0 % 02/09/23 00:33 Nucleated RBCs # 0.0 /100WBC 02/09/23 00:33 Sodium 121 mmol/L (136-145) L 02/09/23 00:33 Potassium 3.7 mmol/L (3.5-5.1) 02/09/23 00:33 Chloride 83 mmol/L (98-107) L 02/09/23 00:33 Carbon Dioxide 27 mmol/L (22-29) 02/09/23 00:33 Anion Gap 14.7 (5-19) 02/09/23 00:33 BUN 15 mg/dL (8-23) 02/09/23 00:33 Creatinine 0.7 mg/dL (0.5-0.9) 02/09/23 00:33 GFR Calculation Not Reportable 02/09/23 00:33 Glucose 340 mg/dL (65-115) H 02/09/23 00:33 Calculated Osmolality 266 mOsm/kg (285-295) L 02/09/23 00:33 Calcium 9.9 mg/dL (8.5-10.5) 02/09/23 00:33 Total Bilirubin 0.4 mg/dL (0.15-1.2) 02/09/23 00:33 AST 21 U/L (0-32) 02/09/23 00:33 ALT 24 U/L (0-33) 02/09/23 00:33 Alkaline Phosphatase 207 U/L (35-105) H 02/09/23 00:33 Total Protein 7.1 g/dL (6.6-8.7) 02/09/23 00:33 Albumin 4.0 g/dL (3.5-5.2) 02/09/23 00:33 Globulin 3.1 g/dL (1.3-4.6) 02/09/23 00:33 Lipase 41 U/L (13-60) 02/09/23 00:33 Urine Color Yellow (Yellow) 02/09/23 00:52 Urine Appearance Clear (CLEAR) 02/09/23 00:52 Urine pH 6 (5-7) 02/09/23 00:52 Ur Specific [place] 1.015 (1.005-1.030) 02/09/23 00:52 Urine Protein Neg (Negative) 02/09/23 00:52 Urine Glucose (UA) 4+ (Normal) H 02/09/23 00:52 Urine Ketones Negative (Negative) 02/09/23 00:52 Urine Blood Neg (Negative) 02/09/23 00:52 Urine Nitrate Negative (Negative) 02/09/23 00:52 Urine Bilirubin Neg (Negative) 02/09/23 00:52 Urine Urobilinogen Neg mg/dL (Negative) 02/09/23 00:52 Ur Leukocyte Esterase 2+ (Negative) H 02/09/23 00:52 Urine RBC None /hpf (0-2) 02/09/23 00:52 Urine WBC 5-10 /hpf (0-5) H 02/09/23 00:52 Ur Squamous Epith Cells 0-4 /hpf (0-5) H 02/09/23 00:52 Amorphous Sediment Not Reportable 02/09/23 00:52 Urine Bacteria Trace /hpf (NONE) 02/09/23 00:52 Urine Mucus 1+ /hpf 02/09/23 00:52 No radiology studies performed this visit Discharge Plan Discharge Patient Disposition: Home Clinical Impression: Chronic hyponatremia Urinary tract infection Qualifiers: Urinary tract infection type: acute cystitis Hematuria presence: without hematuria Qualified Code(s): N30.00 - Acute cystitis without hematuria Nausea & vomiting Qualifiers: Vomiting type: unspecified Qualified Code(s): R11.2 - Nausea with vomiting, unspecified Condition: Stable Prescriptions: New ciprofloxacin HCl 500 mg tablet 250 mg PO BID Qty: 14 0RF No Action dicyclomine 10 mg capsule 10 mg PO QID lactulose 10 gram/15 mL solution 15 ml PO DAILY@12 polyethylene glycol 3350 [Miralax] 17 gram/dose powder 17 g PO DAILY chlorthalidone 25 mg tablet 25 mg PO DAILY Qty: 90 2RF cholecalciferol (vitamin D3) 1,000 unit capsule 1,000 unit PO QPM cranberry 500 mg capsule 500 mg PO QPM Lactobacillus acidophilus [Acidophilus] Capsule 1 cap PO QAM ferrous sulfate 325 mg (65 mg iron) tablet 325 mg PO DAILY@12 magnesium oxide 400 mg (241.3 mg magnesium) tablet 500 mg PO DAILY@12 nitroglycerin 0.4 mg tablet, sublingual 0.4 mg sublingual Q5M PRN (Reason: chest pain) 30 Days Qty: 30 3RF Rx Instructions: until response; do not exceed 3 doses per episode furosemide 20 mg tablet 60 mg PO DAILY citalopram 40 mg tablet 40 mg PO QAM Qty: 30 11RF aripiprazole [Abilify] 2 mg tablet 2 mg PO .qhs Qty: 30 5RF potassium chloride 8 mEq capsule, extended release 24 meq PO DAILY [place] [place] FreeStyle [place] 2 Sensor Kit See Rx Instructions .MEDSUPPLY Qty: 3 3RF Rx Instructions: As directed [place] [place] FreeStyle [place] 2 [place] Misc See Rx Instructions .Route Qty: 1 0RF Rx Instructions: As directed esomeprazole magnesium 40 mg capsule,delayed release(DR/EC) 40 mg PO DAILY insulin lispro [Humalog KwikPen Insulin] 100 unit/mL insulin pen 22 unit SUBCUT TID Qty: 30 3RF hydrocodone-acetaminophen 10-325 mg tablet 1 tab PO Q6H PRN (Reason: Pain) (DME) blood sugar diagnostic Strip See Rx Instructions .Route Qty: 400 3RF Rx Instructions: Check blood sugar 4 times a day. [place] [place] lancets [Comfort EZ Lancets] 21 gauge misc See Rx Instructions .Route Qty: 400 3RF Rx Instructions: As directed [place] [place] Easymax 15 test strips Strip See Rx Instructions .Route Qty: 400 3RF Rx Instructions: Check BS 4 times a day. clopidogrel 75 mg tablet 75 mg PO QPM Qty: 90 3RF Hold Instructions: Resume on 11/02/22. [place] [place] Dexcom G6 Knockout Worker Misc See Rx Instructions .Route Qty: 1 0RF Rx Instructions: Check BS 4-6 times a day. [place] [place] Dexcom G6 Sensor Device See Rx Instructions .Route Qty: 9 3RF Rx Instructions: Change every 10 days. [place] [place] Dexcom G6 Transmitter Device See Rx Instructions .Route Qty: 3 3RF Rx Instructions: Change every 90 days valsartan 320 mg tablet 320 mg PO DAILY Qty: 90 3RF isosorbide mononitrate 120 mg tablet extended release 24 hr 120 mg PO DAILY Qty: 90 3RF linaclotide 290 mcg capsule 290 mcg PO DAILY Qty: 90 3RF hydrocortisone 10 mg tablet See Rx Instructions .ROUTE .COMPLEX Qty: 360 0RF Dose Instruction: TAKE 1 TABLET BY MOUTH FOUR TIMES DAILY Rx Instructions: TAKE 1 TABLET BY MOUTH FOUR TIMES DAILY (DME) pen needle, diabetic [BD Ultra-Fine Mini Pen Needle] 31 gauge x 3/16 needle See Rx Instructions .ROUTE .COMPLEX Qty: 400 3RF Dose Instruction: USE DIRECTED Rx Instructions: QID insulin degludec [Tresiba FlexTouch U-200] 200 unit/mL (3 mL) insulin pen See Rx Instructions .ROUTE .COMPLEX Qty: 9 0RF Dose Instruction: ADMINISTER 34 UNITS UNDER THE SKIN EVERY EVENING Rx Instructions: ADMINISTER 36 UNITS UNDER THE SKIN EVERY EVENING atorvastatin 40 mg tablet 40 mg PO BEDTIME albuterol sulfate 90 mcg/actuation HFA aerosol inhaler 2 puff INHALATION QID PRN (Reason: Shortness Of Breath) vitamin E 1,000 unit Capsule 1,000 unit PO DAILY ascorbic acid (vitamin C) [Vitamin C] 500 mg Tablet,Chewable 500 mg PO DAILY@12 ondansetron 4 mg tablet,disintegrating 4 mg PO Q8H PRN (Reason: nausea and vomiting) Qty: 7 0RF azithromycin 250 mg tablet See Rx Instructions .ROUTE .COMPLEX Qty: 6 0RF Rx Instructions: For 250 mg dose pack: take 500 mg today (day 1), then 250 mg for 4 days (days 2-5) Discharge Orders: Discharge ED (Routine); Ordered 02/09/23 Ordered By: Cristobal Monroe Referrals: Arabella Orta MD [Primary Care Provider] - 1 week Patient Instructions: Hyponatremia (ED), Urinary Tract Infection - Women Activity Restrictions/Additional Instructions: Please take all your medicine as directed. Please follow-up with your family practice physician within the next 7 to 10 days or sooner as needed for further evaluation and treatment Coding Level of Care Code ED Payroll [employer] for [employer]
[2023-02-09] MEDS: ciprofloxacin 500 mg Tablet PO (01:50)
[2023-02-09 01:56] VITALS: BP 180/66; PULSE 83; RESP 18; O2SAT 96
== END 2023-02-09 01:55 | disposition home or self-care (01) ==
PROVIDERS: Nurse Practitioner Family; Emergency Provider Emergency Medicine; PCP Family Medicine
DX: N30.00 Acute cystitis without hematuria (principal); R11.2 Nausea with vomiting, unspecified; E87.1 Hypo-osmolality and hyponatremia; Z79.02 Long term (current) use of antithrombotics/antiplatelets; Z79.4 Long term (current) use of insulin; I25.10 Atherosclerotic heart disease of native coronary artery without angina pectoris; I10 Essential (primary) hypertension; E78.5 Hyperlipidemia, unspecified; Z87.440 Personal history of urinary (tract) infections
CPT/HCPCS: 36415; 80053; 81001; 83690; 85025; 96372; 99284; J2405

== ENCOUNTER → 2023-02-10 12:59 | Outpatient (BNVA) | payer MEDICARE, OTHER, SELFPAY | PROVIDERS: PCP Family Medicine; Referring Provider Orthopaedic Surgery; Visit Provider Specialist | DX: M17.0 Bilateral primary osteoarthritis of knee | CPT/HCPCS: 73560; 73565; 99204 ==

== ENCOUNTER 2023-02-19 13:15 | Outpatient (CLI) | payer MEDICARE, OTHER, SELFPAY ==
[2023-02-19 14:21] LABS: Anion Gap 11.4 (5-19); Blood Urea Nitrogen 15 mg/dL (8-23); Carbon Dioxide 29 mmol/L (22-29); Chloride 87 mmol/L (98-107); Glucose 137 mg/dL (65-115); Osmolality Calculated 259 mOsm/kg (285-295); Potassium 4.4 mmol/L (3.5-5.1); Sodium 123 mmol/L (136-145)
[2023-02-19 14:31] LABS: Creatinine Urine, Random 37 mg/dL (28-217); Microalbum Creatinine Ratio Ur 27 mg/dL (0-20); Microalbumin Random Urine 1 ug/dL (0-20)
== END 2023-02-19 13:16 | disposition home or self-care (01) ==
PROVIDERS: PCP Family Medicine; Visit Provider Family Medicine
DX: E11.9 Type 2 diabetes mellitus without complications (principal); I10 Essential (primary) hypertension
CPT/HCPCS: 36415; 80048; 82044

== ENCOUNTER 2023-02-21 22:17 | Emergency (ER) | payer MEDICARE, OTHER, SELFPAY ==
[2023-02-21 22:22] VITALS: PULSE 90; RESP 17; TEMP 36.9; O2SAT 96; BMI 37.4
[2023-02-21 22:45] VITALS: BP 209/90; PULSE 73; RESP 20; O2SAT 97
--- NOTE | 2023-02-21 22:51 | USR_ITS ---
PROCEDURE INFORMATION: Exam: US Duplex Left Lower Extremity Veins, Limited Exam date and time: 02/21/2023 11:26 PM Age: 77 years old Clinical indication: Pain; Leg, lower; Left; Additional info: Lle redness swelling pain TECHNIQUE: Imaging protocol: Real-time duplex ultrasound of the left extremity with 2-D louie scale, color Doppler flow and spectral waveform analysis including responses to compression and other maneuvers (when performed) with image documentation. Limited exam focused on the left lower extremity veins. COMPARISON: US soft tissue/extremity [id number] 01/30/2022 7:55 AM FINDINGS: Left deep veins: Unremarkable. The common femoral, femoral, proximal profunda femoral and popliteal veins are patent without thrombus. Normal Doppler waveforms. Normal compressibility and/or augmentation response. Superficial veins: Unremarkable. Saphenofemoral junction is patent without thrombus. Soft tissues: Unremarkable. US/[place] [id number] IMPRESSION: No evidence of deep vein thrombosis.
[2023-02-21 23:20] VITALS: BP 181/70; PULSE 72; RESP 16; O2SAT 96
[2023-02-21 23:30] VITALS: BP 205/80; PULSE 85; RESP 18; O2SAT 97
--- NOTE | 2023-02-21 23:54 | ED_ITS ---
HPI - Extremity Problem General: Chief complaint: Extremity Problem,Nontraumatic Stated complaint: left leg pain Time Seen by Provider: 02/21/23 22:37 History of Present Illness: 77-year-old female well-known to the emergency department service. She presents with left leg swelling, redness, and pain for the past few days. No fever. She notes pain was worse today. No itching. Painful movement of the knee and ankle. No trauma. She says the right leg is red and a bit swollen to, but is not painful. 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 Left axis deviation. Normal [place] and QRS duration. Intervertebral disc disorder with radiculopathy of lumbosacral region Psychiatric care Psychiatric care Recurrent UTI Status post left heart catheterization Surgical History History of colonoscopy (~2018) History of coronary artery stent placement History of right knee surgery Hx of bilateral hip replacements Hx of bladder repair surgery S/P appendectomy S/P hernia repair S/P hip replacement S/P hysterectomy Family History Family/Other Diabetes Other Cancer Social History Smoking and tobacco status: never smoked Alcohol intake: never Substance/Drug Use: never Household members: spouse Marital status: Current occupational status: retired Physical Exam Const: COMMON NORMALS: no acute distress GENERAL APPEARANCE: cooperative and frail appearing; not ill appearing HENMT: COMMON NORMALS: normocephalic, atraumatic and Normal external nose present HEAD & SCALP: normocephalic and atraumatic FACE & SINUS: normal facial exam and face symmetric NOSE: Normal external nose present Eye: COMMON NORMALS: Equal, round and reactive pupils present and EOMs intact bilaterally PUPIL: Yes Equal, round and reactive pupils present Neck/C-Spine: GENERAL: Yes trachea midline Chest: CHEST: Yes Symmetrical chest wall rise Resp: COMMON NORMALS: normal respiratory effort, No retractions, No use of accessory muscles and clear to auscultation bilaterally AUSCULTATION: clear to auscultation bilaterally Cardio: COMMON NORMALS: regular rate and regular rhythm RATE: regular rate RHYTHM: regular rhythm GI: COMMON NORMALS: Normal to inspection, nondistended, normoactive bowel sounds present Extremity: NARRATIVE EXTREMITY EXAM: Minimal edema, erythema, and warmth to the left lower extremity. No wounds. Tenderness to the calf and popliteal fossa. Neuro: ANA M COMA SCALE: document GCS findings [place] coma scale eye opening: Spontaneous Ana M coma scale verbal response: Orientated [place] coma scale motor response: Obey commands [place] coma scale total score: 15 SENSORY EXAM: Yes extremities (intact) Psych: COMMON NORMALS: speech normal SPEECH: Yes normal speech Skin: COMMON NORMALS: no rashes or lesions noted GENERAL SKIN EXAM: no rashes or lesions noted Course Vital Signs: Vital signs: Vital Signs Temperature 98.5 F 02/21/23 22:22 Pulse Rate 85 02/21/23 23:30 Respiratory Rate 18 02/21/23 23:30 Blood Pressure 205/80 02/21/23 23:30 Pulse Oximetry 97 02/21/23 23:30 Oxygen Delivery Me thod Room Air 02/21/23 23:20 MDM - Extremity (Nontraumatic) Medical Decision Making No fever. Painful calf and popliteal fossa. Ultrasound for DVT is negative. Pulses are intact. Cellulitic skin is present. We will treat accordingly. Lab Data Radiology Impressions Venous Duplex 02/21/23 22:51 IMPRESSION: No evidence of deep vein thrombosis. No radiology studies performed this visit Discharge Plan Discharge Patient Disposition: Home Clinical Impression: Cellulitis of left lower extremity Condition: Stable Prescriptions: New clindamycin HCl 300 mg capsule 300 mg PO Q6H 10 Days Qty: 40 0RF No Action dicyclomine 10 mg capsule 10 mg PO QID lactulose 10 gram/15 mL solution 15 ml PO DAILY@12 polyethylene glycol 3350 [Miralax] 17 gram/dose powder 17 g PO DAILY chlorthalidone 25 mg tablet 25 mg PO DAILY Qty: 90 2RF cholecalciferol (vitamin D3) 1,000 unit capsule 1,000 unit PO QPM cranberry 500 mg capsule 500 mg PO QPM Lactobacillus acidophilus [Acidophilus] Capsule 1 cap PO QAM ferrous sulfate 325 mg (65 mg iron) tablet 325 mg PO DAILY@12 magnesium oxide 400 mg (241.3 mg magnesium) tablet 500 mg PO DAILY@12 nitroglycerin 0.4 mg tablet, sublingual 0.4 mg sublingual Q5M PRN (Reason: chest pain) 30 Days Qty: 30 3RF Rx Instructions: until response; do not exceed 3 doses per episode furosemide 20 mg tablet 60 mg PO DAILY citalopram 40 mg tablet 40 mg PO QAM Qty: 30 11RF aripiprazole [Abilify] 2 mg tablet 2 mg PO .qhs Qty: 30 5RF potassium chloride 8 mEq capsule, extended release 24 meq PO DAILY (DME) FreeStyle Tor 2 Sensor Kit See Rx Instructions .MEDSUPPLY Qty: 3 3RF Rx Instructions: As directed (DME) FreeStyle Tor 2 [place] Misc See Rx Instructions .Route Qty: 1 0RF Rx Instructions: As directed esomeprazole magnesium 40 mg capsule,delayed release(DR/EC) 40 mg PO DAILY insulin lispro [Humalog KwikPen Insulin] 100 unit/mL insulin pen 22 unit SUBCUT TID Qty: 30 3RF hydrocodone-acetaminophen 10-325 mg tablet 1 tab PO Q6H PRN (Reason: Pain) cyclobenzaprine 10 mg tablet 10 mg PO TID PRN (Reason: muscle spasm) Qty: 30 0RF (DME) blood sugar diagnostic Strip See Rx Instructions .Route Qty: 400 3RF Rx Instructions: Check blood sugar 4 times a day. (DME) lancets [Comfort EZ Lancets] 21 gauge misc See Rx Instructions .Route Qty: 400 3RF Rx Instructions: As directed (DME) Easymax 15 test strips Strip See Rx Instructions .Route Qty: 400 3RF Rx Instructions: Check BS 4 times a day. (DME) Dexcom G6 Smooth Stucco Resurfacer Misc See Rx Instructions .Route Qty: 1 0RF Rx Instructions: Check BS 4-6 times a day. (DME) Dexcom G6 Sensor Device See Rx Instructions .Route Qty: 9 3RF Rx Instructions: Change every 10 days. (DME) Dexcom G6 Transmitter Device See Rx Instructions .Route Qty: 3 3RF Rx Instructions: Change every 90 days valsartan 320 mg tablet 320 mg PO DAILY Qty: 90 3RF isosorbide mononitrate 120 mg tablet extended release 24 hr 120 mg PO DAILY Qty: 90 3RF linaclotide 290 mcg capsule 290 mcg PO DAILY Qty: 90 3RF hydrocortisone 10 mg tablet See Rx Instructions .ROUTE .COMPLEX Qty: 360 0RF Dose Instruction: TAKE 1 TABLET BY MOUTH FOUR TIMES DAILY Rx Instructions: TAKE 1 TABLET BY MOUTH FOUR TIMES DAILY (DME) pen needle, diabetic [BD Ultra-Fine Mini Pen Needle] 31 gauge x 3/16 needle See Rx Instructions .ROUTE .COMPLEX Qty: 400 3RF Dose Instruction: USE DIRECTED Rx Instructions: QID insulin degludec [Tresiba FlexTouch U-200] 200 unit/mL (3 mL) insulin pen See Rx Instructions .ROUTE .COMPLEX Qty: 9 0RF Dose Instruction: ADMINISTER 34 UNITS UNDER THE SKIN EVERY EVENING Rx Instructions: ADMINISTER 36 UNITS UNDER THE SKIN EVERY EVENING clopidogrel 75 mg tablet 75 mg PO QPM Qty: 90 3RF Hold Instructions: Resume on 11/02/22. atorvastatin 40 mg tablet 40 mg PO BEDTIME albuterol sulfate 90 mcg/actuation HFA aerosol inhaler 2 puff INHALATION QID PRN (Reason: Shortness Of Breath) vitamin E 1,000 unit Capsule 1,000 unit PO DAILY ascorbic acid (vitamin C) [Vitamin C] 500 mg Tablet,Chewable 500 mg PO DAILY@12 ondansetron 4 mg tablet,disintegrating 4 mg PO Q8H PRN (Reason: nausea and vomiting) Qty: 7 0RF azithromycin 250 mg tablet See Rx Instructions .ROUTE .COMPLEX Qty: 6 0RF Rx Instructions: For 250 mg dose pack: take 500 mg today (day 1), then 250 mg for 4 days (days 2-5) ciprofloxacin HCl 500 mg tablet 250 mg PO BID Qty: 14 0RF Discharge Orders: Discharge ED (Routine); Ordered 02/21/23 Ordered By: Monty Briseno Referrals: Arabella Orta MD [Primary Care Provider] - 1-3 days Patient Instructions: Cellulitis (ED), Opioid Safety, Pain Management Activity Restrictions/Additional Instructions: You have an infection in the skin of your lower legs, left worse than right. Antibiotics as directed. Elevate your legs. Return for fever, spreading redness despite 3-4 doses of antibiotics, worsening pain despite 3-4 doses of antibiotics, other concerning symptoms. See your doctor this week for wound check. 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
[2023-02-22] MEDS: clindamycin 150 mg Capsule 300 MG PO (00:02)
== END 2023-02-22 00:37 | disposition home or self-care (01) ==
PROVIDERS: Emergency Provider Emergency Medicine; PCP Family Medicine
DX: L03.116 Cellulitis of left lower limb (principal); Z79.02 Long term (current) use of antithrombotics/antiplatelets; Z79.4 Long term (current) use of insulin; I25.10 Atherosclerotic heart disease of native coronary artery without angina pectoris; I10 Essential (primary) hypertension; E78.5 Hyperlipidemia, unspecified
CPT/HCPCS: 93971; 99284

== ENCOUNTER → 2023-02-23 13:39 | Outpatient (BNVA) | payer MEDICARE, OTHER, SELFPAY | PROVIDERS: PCP Family Medicine; Visit Provider Orthopaedic Surgery | DX: Z47.89 Encounter for other orthopedic aftercare | CPT/HCPCS: 99024 ==

== ENCOUNTER 2023-03-04 13:41 | Outpatient (CLI) | payer MEDICARE, OTHER, SELFPAY ==
--- NOTE | 2023-03-04 13:49 | USCV_ITS ---
Brandi Berg Age: 77 Gender: F : 1945 Exam Date: 03/04/2023 14:18 Ordering Phys: Arabella Orta MD Technologist: ZION Exam Location: [facility] Indication: LEG PAIN AND SWELLING Risk Factors: Previous Vascular Surgery: RIGHT LEFT BP: 162.0 / 60.00 BP: 160.0/ 72.00 0 0 Waveform Velocity (cm/s) Velocity (cm/s) Waveform Biphasic 96.8 Iliac Prox 83.5 Monophasic Biphasic 128.6 Iliac Mid 90.5 Monophasic Biphasic 112.1 Iliac Distal 86.8 Monophasic Biphasic 130.6 TEAM PSYCHOLOGIST 210.4 Monophasic Biphasic 129.2 SFA Prox 122.7 Monophasic Biphasic 150.4 SFA Mid 107.2 Monophasic Biphasic SFA Dist Monophasic 216.2 90.1 Biphasic 178.6 POP 73.0 Monophasic Monophasic 45.5 LIVESTOCK 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 Moderate diffuse plaques in the superficial femoral and popliteal arteries on the right side. Moderate diffuse plaques in the iliac, femoral and popliteal vessels on the left side. TOM 0.8 on the right and 0.6 on the left CONCLUSIONS 1. Abnormal resting TOM of 0.8 on the right side, suggesting mild peripheral artery disease. 2. Abnormal resting TOM on the left side, suggesting moderate peripheral arterial disease. Consider exercise TOM to better evaluate the functional significance, if clinically indicated. Compared to the study from 03/05/2022 there is significant decrease in the resting ABIs bilaterally Dr Gilma Cai MD [facility] (Electronically Signed) Final Date: 05 March 2023 10:57 S
[2023-03-04 15:08] LABS: Anion Gap 12.9 (5-19); Blood Urea Nitrogen 15 mg/dL (8-23); Calcium 9.7 mg/dL (8.5-10.5); Carbon Dioxide 27 mmol/L (22-29); Chloride 92 mmol/L (98-107); Glucose 197 mg/dL (65-115); Osmolality Calculated 272 mOsm/kg (285-295); Potassium 3.9 mmol/L (3.5-5.1); Sodium 128 mmol/L (136-145)
== END 2023-03-04 13:42 | disposition home or self-care (01) ==
LOC: RAD 13:42
PROVIDERS: PCP Family Medicine; Visit Provider Family Medicine
DX: I73.9 Peripheral vascular disease, unspecified (principal); M79.605 Pain in left leg; M79.604 Pain in right leg; M79.89 Other specified soft tissue disorders
CPT/HCPCS: 36415; 80048; 93925

== ENCOUNTER 2023-03-12 03:13 | Emergency (ER) | payer MEDICARE, OTHER, SELFPAY ==
[2023-03-12] VITALS (14 sets, daily range): BP systolic 144–211; BP diastolic 54–92; PULSE 73–90; RESP 16–24; TEMP 36.6; O2SAT 91–98; BMI 38.2
--- NOTE | 2023-03-12 03:15 | XRR_ITS ---
PROCEDURE INFORMATION: Exam: XR Chest Exam date and time: 03/12/2023 3:30 AM Age: 77 years old Clinical indication: Chest wall pain; Patient HX: Middle chest pain; Additional info: Cp TECHNIQUE: Imaging protocol: Radiologic exam of the chest. Views: 1 view. COMPARISON: CR (CHEST, ) 01/16/2023 6:59 PM FINDINGS: Lungs: Unremarkable. No consolidation. Pleural spaces: Unremarkable. No pleural effusion. No pneumothorax. Heart/Mediastinum: Unremarkable. No cardiomegaly. Vasculature: Advanced diffuse vascular calcification noted. Bones/joints: Old left rib deformities. XR/XR chest 1V portable [id number] IMPRESSION: No acute findings.
--- NOTE | 2023-03-12 03:16 | ECG_ITS ---
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 Measurements Intervals [place] Rate: 81 P: 104 [place]: 144 QRS: -22 QRSD: 94 T: 94 QT: 347 QTc: 405 Interpretive Statements SINUS RHYTHM BORDERLINE LEFT AXIS DEVIATION [QRS AXIS < -20] NONSPECIFIC ST & T-WAVE ABNORMALITY Compared to ECG 06/10/2022 18:21:27 Intraventricular conduction delay no longer present T-wave abnormality still present Electronically Signed On 03-12-2023 8:59:05 CDT by Jose Sumner M.D. [id number] f
--- NOTE | 2023-03-12 03:24 | W.ED.CHESTPA ---
HPI - Chest Pain General: Chief Complaint: Chest Pain Stated Complaint: CP Time Seen by Provider: 03/12/23 03:15 Source: EMS Mode of arrival: EMS Limitations: no limitations History of Present Illness: 77-year-old female states that she started a new medication states she is taken it for 2 days it is caused her to be extremely sleepy states that livier started having some chest pain an hour ago like it might be due to her new medication she states the pain since resolved she denies any shortness of breath denies any cough denies any nausea vomiting Associated symptoms: Deny abdominal pain, dyspnea, fever(s), nausea or vomiting Review of Systems Const: Denies: fever(s), chills, body aches or change in appetite Eyes: Denies: blurry vision or eye discomfort ENMT: Denies: throat pain or dental pain Card: Reports: chest pain Resp: Denies: dyspnea GI: Denies: abdominal pain, nausea, vomiting or diarrhea : Denies: dysuria Musc: Denies: neck pain or back pain Skin/Breast: Denies: rash Neuro: Denies: headache(s) PFSH ED PFSH: Medical History Acute cystitis Anemia, chronic disease 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 Left axis deviation. Normal [place] and QRS duration. Intervertebral disc disorder with radiculopathy of lumbosacral region Psychiatric care Psychiatric care Recurrent UTI Status post left heart catheterization Surgical History History of colonoscopy (~2018) History of coronary artery stent placement History of right knee surgery Hx of bilateral hip replacements Hx of bladder repair surgery S/P appendectomy S/P hernia repair S/P hip replacement S/P hysterectomy Family History Family/Other Diabetes Other Cancer Social History Smoking and tobacco/nicotine status: never used tobacco/nicotine Alcohol intake: never Substance/Drug Use: never Household members: spouse Marital status: Current occupational status: retired Physical Exam Const: COMMON NORMALS: no acute distress, patient oriented x3 and healthy appearing HENMT: COMMON NORMALS: normocephalic and atraumatic HEAD & SCALP: normocephalic and atraumatic Eye: COMMON NORMALS: Equal, round and reactive pupils present and EOMs intact bilaterally PUPIL: Yes Equal, round and reactive pupils present Neck/C-Spine: COMMON NORMALS: full ROM and supple Chest: COMMONS NORMALS: normal inspection of the chest and normal palpation of entire chest wall Resp: COMMON NORMALS: normal respiratory effort, No retractions, No use of accessory muscles and clear to auscultation bilaterally AUSCULTATION: clear to auscultation bilaterally Cardio: COMMON NORMALS: regular rate, regular rhythm and No murmurs present (Cardio) RATE: regular rate RHYTHM: regular rhythm GI: COMMON NORMALS: Normal to inspection, nondistended, normoactive bowel sounds present, Soft to palpation, non-tender and no masses PALPATION: Yes Soft to palpation Extremity: COMMON NORMALS: normal to inspection and full ROM Neuro: COMMON NORMALS: patient oriented x3, moves all extremities and no focal motor deficits Psych: COMMON NORMALS: mental status grossly normal, Normal thought process present and cooperative THOUGHT PROCESS: Normal thought process present Skin: COMMON NORMALS: no rashes or lesions noted and no wounds GENERAL SKIN EXAM: no rashes or lesions noted Course Vital Signs: Vital signs: Vital Signs Temperature 98 F 03/12/23 03:14 Pulse Rate 83 03/12/23 05:15 Respiratory Rate 19 H 03/12/23 05:00 Blood Pressure 190/70 03/12/23 05:15 Pulse Oximetry 93 03/12/23 05:15 Oxygen Delivery Me thod Room Air 03/12/23 05:15 MDM - Chest Pain Medical Decision Making Patient presents for chest pains atypical in nature troponins here are negative she feels improved she is stable for discharge she is to follow-up with her PCP and return if worsening. Medical Records I reviewed the patient's medical records. Lab Data I reviewed the patient's lab results. 03/12/23 03:26 03/12/23 03:26 Laboratory Results WBC 7.13 10^3/uL (3.29-11.43) 03/12/23 03:26 RBC 3.76 10^6/uL (3.85-5.65) L 03/12/23 03:26 Hgb 11.30 g/dL (11.27-16.99) 03/12/23 03:26 Hct 34.8 % (36-47) L 03/12/23 03:26 MCV 92.6 fl (85-98) 03/12/23 03:26 MCH 30.1 pg (27-33) 03/12/23 03:26 MCHC 32.5 g/dL (30-55) 03/12/23 03:26 RDW 13.6 % (12.1-15.1) 03/12/23 03:26 Plt Count 237 10^3/cmm (157-399) 03/12/23 03:26 MPV 9.1 fL (7.4-10.4) 03/12/23 03:26 Neut % (Auto) 67.2 % 03/12/23 03:26 Lymph % (Auto) 21.0 % 03/12/23 03:26 [place] % (Auto) 9.1 % 03/12/23 03:26 Eos % (Auto) 1.7 % 03/12/23 03:26 Baso % (Auto) 0.4 % 03/12/23 03:26 Neut # (Auto) 4.79 10^3/uL (1.8-7.7) 03/12/23 03:26 Lymph # (Auto) 1.5 10^3/uL (0.8-4.8) 03/12/23 03:26 [place] # (Auto) 0.7 10^3/uL (0.2-0.9) 03/12/23 03:26 Eos # (Auto) 0.1 10^3/uL (0.0-0.8) 03/12/23 03:26 Baso # (Auto) 0.0 10^3/uL (0.0-0.1) 03/12/23 03:26 Nucleated RBC % (auto) 0 % 03/12/23 03:26 Nucleated RBCs # 0.0 /100WBC 03/12/23 03:26 Sodium 137 mmol/L (136-145) 03/12/23 03:26 Potassium 4.8 mmol/L (3.5-5.1) 03/12/23 03:26 Chloride 98 mmol/L (98-107) 03/12/23 03:26 Carbon Dioxide 28 mmol/L (22-29) 03/12/23 03:26 Anion Gap 15.8 (5-19) 03/12/23 03:26 BUN 18 mg/dL (8-23) 03/12/23 03:26 Creatinine 0.7 mg/dL (0.5-0.9) 03/12/23 03:26 GFR Calculation Not Reportable 03/12/23 03:26 Glucose 218 mg/dL (65-115) H 03/12/23 03:26 Calculated Osmolality 293 mOsm/kg (285-295) 03/12/23 03:26 Calcium 10.0 mg/dL (8.5-10.5) 03/12/23 03:26 Total Bilirubin 0.3 mg/dL (0.15-1.2) 03/12/23 03:26 AST 16 U/L (0-32) 03/12/23 03:26 ALT 16 U/L (0-33) 03/12/23 03:26 Alkaline Phosphatase 180 U/L (35-105) H 03/12/23 03:26 Troponin T Baseline 15 ng/L (0-10) H 03/12/23 03:26 Troponin T 120 Minute 14.94 ng/L (0-10) H 03/12/23 04:45 Delta Troponin T -0.06 ABS# (0-10) L 03/12/23 04:45 Total Protein 6.7 g/dL (6.6-8.7) 03/12/23 03:26 Albumin 4.0 g/dL (3.5-5.2) 03/12/23 03:26 Globulin 2.7 g/dL (1.3-4.6) 03/12/23 03:26 Lipase 18 U/L (13-60) 03/12/23 03:26 XR interpretation done by ED provider, pending radiology final review ED provider radiology interpretation(s): cxr: no acute abnormality EKG Data EKG 1: I personally reviewed and interpreted this EKG as follows: EKG interpretation date: 03/12/23 EKG interpretation time: 03:16 Interpretation: nsr hr [address] or t wave abnormalities qrs 94 qtc 385 Discharge Plan Discharge Patient Disposition: Home Clinical Impression: Chest pain Condition: Stable Prescriptions: No Action dicyclomine 10 mg capsule 10 mg PO QID cholecalciferol (vitamin D3) 1,000 unit capsule 1,000 unit PO QPM cranberry 500 mg capsule 500 mg PO QPM Lactobacillus acidophilus [Acidophilus] Capsule 1 cap PO QAM ferrous sulfate 325 mg (65 mg iron) tablet 325 mg PO DAILY@12 magnesium oxide 400 mg (241.3 mg magnesium) tablet 500 mg PO DAILY@12 nitroglycerin 0.4 mg tablet, sublingual 0.4 mg sublingual Q5M PRN (Reason: chest pain) 30 Days Qty: 30 3RF Rx Instructions: until response; do not exceed 3 doses per episode furosemide 20 mg tablet 60 mg PO DAILY aripiprazole [Abilify] 2 mg tablet 2 mg PO .qhs Qty: 30 5RF chlorthalidone 25 mg tablet 12.5 mg PO DAILY clindamycin HCl 300 mg capsule 150 mg PO Q6H tizanidine [Zanaflex] 4 mg tablet 4 mg PO BID PRN citalopram 20 mg tablet 20 mg PO DAILY Qty: 30 5RF potassium chloride 8 mEq capsule, extended release 24 meq PO DAILY (DME) FreeStyle Tor 2 Sensor Kit See Rx Instructions .MEDSUPPLY Qty: 3 3RF Rx Instructions: As directed (DME) FreeStyle Tor 2 [place] Misc See Rx Instructions .Route Qty: 1 0RF Rx Instructions: As directed esomeprazole magnesium 40 mg capsule,delayed release(DR/EC) 40 mg PO DAILY insulin lispro [Humalog KwikPen Insulin] 100 unit/mL insulin pen 22 unit SUBCUT TID Qty: 30 3RF (DME) blood sugar diagnostic Strip See Rx Instructions .Route Qty: 400 3RF Rx Instructions: Check blood sugar 4 times a day. (DME) lancets [Comfort EZ Lancets] 21 gauge misc See Rx Instructions .Route Qty: 400 3RF Rx Instructions: As directed (DME) Easymax 15 test strips Strip See Rx Instructions .Route Qty: 400 3RF Rx Instructions: Check BS 4 times a day. (DME) Dexcom G6 Jinrikisha Driver Misc See Rx Instructions .Route Qty: 1 0RF Rx Instructions: Check BS 4-6 times a day. (DME) Dexcom G6 Sensor Device See Rx Instructions .Route Qty: 9 3RF Rx Instructions: Change every 10 days. (DME) Dexcom G6 Transmitter Device See Rx Instructions .Route Qty: 3 3RF Rx Instructions: Change every 90 days valsartan 320 mg tablet 320 mg PO DAILY Qty: 90 3RF isosorbide mononitrate 120 mg tablet extended release 24 hr 120 mg PO DAILY Qty: 90 3RF hydrocortisone 10 mg tablet See Rx Instructions .ROUTE .COMPLEX Qty: 360 0RF Dose Instruction: TAKE 1 TABLET BY MOUTH FOUR TIMES DAILY Rx Instructions: TAKE 1 TABLET BY MOUTH FOUR TIMES DAILY (DME) pen needle, diabetic [BD Ultra-Fine Mini Pen Needle] 31 gauge x 3/16 needle See Rx Instructions .ROUTE .COMPLEX Qty: 400 3RF Dose Instruction: USE DIRECTED Rx Instructions: QID insulin degludec [Tresiba FlexTouch U-200] 200 unit/mL (3 mL) insulin pen See Rx Instructions .ROUTE .COMPLEX Qty: 9 0RF Dose Instruction: ADMINISTER 34 UNITS UNDER THE SKIN EVERY EVENING Rx Instructions: ADMINISTER 36 UNITS UNDER THE SKIN EVERY EVENING clopidogrel 75 mg tablet 75 mg PO QPM Qty: 90 3RF Hold Instructions: Resume on 11/02/22. atorvastatin 40 mg tablet 40 mg PO BEDTIME albuterol sulfate 90 mcg/actuation HFA aerosol inhaler 2 puff INHALATION QID PRN (Reason: Shortness Of Breath) vitamin E 1,000 unit Capsule 1,000 unit PO DAILY ascorbic acid (vitamin C) [Vitamin C] 500 mg Tablet,Chewable 500 mg PO DAILY@12 ondansetron 4 mg tablet,disintegrating 4 mg PO Q8H PRN (Reason: nausea and vomiting) Qty: 7 0RF Discharge Orders: Discharge ED (Routine); Ordered 03/12/23 Ordered By: Enrico Camejo Referrals: Arabella Orta MD [Primary Care Provider] - 1-3 days Discharge Diet: Advance as tolerated Discharge Activity: Resume usual activity Patient Instructions: Chest Pain (ED) Coding Level 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
[2023-03-12 03:32] LABS: Basophils % 0.4 %; Eosinophils # 0.1 10^3/uL (0.0-0.8); Eosinophils % 1.7 %; Hematocrit 34.8 % (36-47); Lymphocytes # 1.5 10^3/uL (0.8-4.8); Mean Corpuscular HGB Conc 32.5 g/dL (30-55); Mean Corpuscular Hemoglobin 30.1 pg (27-33); Mean Corpuscular Volume 92.6 fl (85-98); Mean Platelet Volume 9.1 fL (7.4-10.4); Monocytes # 0.7 10^3/uL (0.2-0.9); Monocytes % 9.1 %; Neutrophils # 4.79 10^3/uL (1.8-7.7); Neutrophils % 67.2 %; Nucleated Red Blood Cells % 0 %; Platelet Count 237 10^3/cmm (157-399); Red Blood Count 3.76 10^6/uL (3.85-5.65); Red Cell Distribution Width 13.6 % (12.1-15.1); White Blood Count 7.13 10^3/uL (3.29-11.43)
[2023-03-12] MEDS: labetalol 5 mg/mL SDV 20mL 10 MG IVP (03:40)
[2023-03-12 03:49] LABS: Troponin(5th) Baseline 15 ng/L (0-10)
[2023-03-12 03:52] LABS: Alanine Aminotransferase 16 U/L (0-33); Alkaline Phosphatase 180 U/L (35-105); Anion Gap 15.8 (5-19); Aspartate Amino Transferase 16 U/L (0-32); Blood Urea Nitrogen 18 mg/dL (8-23); Carbon Dioxide 28 mmol/L (22-29); Chloride 98 mmol/L (98-107); Globulin 2.7 g/dL (1.3-4.6); Glucose 218 mg/dL (65-115); Lipase 18 U/L (13-60); Osmolality Calculated 293 mOsm/kg (285-295); Potassium 4.8 mmol/L (3.5-5.1); Sodium 137 mmol/L (136-145); Total Bilirubin 0.3 mg/dL (0.15-1.2); Total Protein 6.7 g/dL (6.6-8.7)
[2023-03-12] MEDS: nitroglycerin 0.4 mg sublingual Tablet SUBLINGUAL (04:07)
--- NOTE | 2023-03-12 04:50 | ECG_ITS ---
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 Measurements Intervals [place] Rate: 73 P: 34 HI: 157 QRS: -19 QRSD: 93 T: 62 QT: 371 QTc: 411 Interpretive Statements SINUS RHYTHM NONSPECIFIC T-WAVE ABNORMALITY Compared to ECG 06/10/2022 18:21:27 Left-axis deviation no longer present Intraventricular conduction delay no longer present T-wave abnormality still present Electronically Signed On 03-12-2023 8:59:32 CDT by Jose Sumner M.D. [email or web address]
[2023-03-12 05:16] LABS: Troponin 5 2HR 14.94 ng/L (0-10)
[2023-03-12 05:17] LABS: Troponin 5 2HR Delta -0.06 ABS# (0-10)
== END 2023-03-12 05:44 | disposition home or self-care (01) ==
PROVIDERS: Emergency Provider Emergency Medicine; PCP Family Medicine
DX: R07.9 Chest pain, unspecified (principal); Z79.02 Long term (current) use of antithrombotics/antiplatelets; Z79.4 Long term (current) use of insulin; I25.10 Atherosclerotic heart disease of native coronary artery without angina pectoris; I10 Essential (primary) hypertension; E78.5 Hyperlipidemia, unspecified
CPT/HCPCS: 71045; 80053; 83690; 84484; 85025; 93005; 96374; 99285; J3490

== ENCOUNTER → 2023-03-15 13:45 | Outpatient (BNVA) | payer MEDICARE, OTHER, SELFPAY | PROVIDERS: PCP Family Medicine; Visit Provider Internal Medicine Pulmonary Disease | DX: G47.33 Obstructive sleep apnea (adult) (pediatric) (principal); I25.10 Atherosclerotic heart disease of native coronary artery without angina pectoris; R06.09 Other forms of dyspnea; E66.01 Morbid (severe) obesity due to excess calories; J98.4 Other disorders of lung; Z68.37 Body mass index [BMI] 37.0-37.9, adult; Z79.52 Long term (current) use of systemic steroids; Z91.199 Patient's noncompliance with other medical treatment and regimen due to unspecified reason | CPT/HCPCS: 99214 ==

== ENCOUNTER 2023-03-25 13:41 | Outpatient (CLI) | payer MEDICARE, OTHER, SELFPAY ==
[2023-03-25 15:02] LABS: Sodium 124 mmol/L (136-145)
== END 2023-03-25 13:42 | disposition home or self-care (01) ==
PROVIDERS: PCP Family Medicine; Visit Provider Psychiatry & Neurology Psychiatry
DX: Z79.899 Other long term (current) drug therapy (principal)
CPT/HCPCS: 36415; 84295

== ENCOUNTER 2023-03-26 07:50 | Outpatient (CLI) | payer MEDICARE, OTHER, SELFPAY ==
[2023-03-26 08:49] LABS: Sodium 129 mmol/L (136-145)
== END 2023-03-26 07:51 | disposition home or self-care (01) ==
LOC: LAB 07:51
PROVIDERS: PCP Family Medicine; Visit Provider Psychiatry & Neurology Psychiatry
DX: E87.1 Hypo-osmolality and hyponatremia (principal)
CPT/HCPCS: 36415; 84295

== ENCOUNTER → 2023-03-31 16:11 | Outpatient (BNVA) | payer MEDICARE, OTHER, SELFPAY | PROVIDERS: PCP Family Medicine; Visit Provider Psychiatry & Neurology Psychiatry | DX: E87.1 Hypo-osmolality and hyponatremia (principal) | CPT/HCPCS: 84295 ==

== ENCOUNTER 2023-04-05 09:36 | Emergency (ER) | payer MEDICARE, OTHER, SELFPAY ==
[2023-04-05] VITALS (10 sets, daily range): BP systolic 133–232; BP diastolic 52–115; PULSE 105–116; RESP 15–18; TEMP 37.1; O2SAT 98–100; BMI 36.6
--- NOTE | 2023-04-05 09:39 | ED_ITS ---
HPI - SOB/Dyspnea General: Chief Complaint: Shortness of Breath/Dyspnea Stated Complaint: SOB Time Seen by Provider: 04/05/23 09:38 Source: patient Mode of arrival: EMS History of Present Illness: HPI Narrative: 77-year-old female presents to the emergency room complaints of intermittent shortness of breath. She has not had any chest pain. Is worse when she is going to sleep she will wake up feeling short of breath she has a history of sleep apnea, Denies chest pain, fever or productive cough. MD elicited complaint: shortness of breath and cough Timing: intermittent Exacerbating factors: nothing Relieving factors: nothing Associated symptoms: Reports cough; Deny abdominal pain, chest congestion, chest pain, diaphoresis, dizziness, extremity pain, fever(s), hemoptysis, lightheadedness, myalgias, nausea, orthopnea, palpitations, paresthesias, polydipsia, polyuria, rash, sense of impending doom, syncope or vomiting Treatment prior to arrival: none Review of Systems Const: Denies: fever(s), chills or diaphoresis Card: Denies: chest pain, palpitations, lightheadedness, syncope or orthopnea Resp: Reports: dyspnea and non-productive cough; Denies: hemoptysis or chest congestion GI: Denies: abdominal pain, nausea or vomiting : Denies: dysuria, urinary frequency or urinary urgency Musc: Denies: neck pain, back pain or extremity pain Skin/Breast: Denies: rash Neuro: Denies: dizziness Endo: Denies: polyuria or polydipsia PFS ED PFSH: Medical History Acute cystitis Anemia, chronic disease 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 Left axis deviation. Normal [place] and QRS duration. Intervertebral disc disorder with radiculopathy of lumbosacral region Psychiatric care Psychiatric care Recurrent UTI Status post left heart catheterization Surgical History History of colonoscopy (~2018) History of coronary artery stent placement History of right knee surgery Hx of bilateral hip replacements Hx of bladder repair surgery S/P appendectomy S/P hernia repair S/P hip replacement S/P hysterectomy Family History Family/Other Diabetes Other Cancer Social History Smoking and tobacco/nicotine status: never used tobacco/nicotine Alcohol intake: never Substance/Drug Use: never Household members: spouse Marital status: Current occupational status: retired Physical Exam Const: GENERAL APPEARANCE: cooperative and comfortable ORIENTATION/CO NSCIOUSNESS: Yes awake, Yes oriented to person, Yes oriented to place and Yes oriented to time HENMT: COMMON NORMALS: normocephalic, atraumatic and hearing grossly normal bilaterally HEAD & SCALP: normocephalic and atraumatic Resp: COMMON NORMALS: normal respiratory effort, No retractions, No use of accessory muscles and clear to auscultation bilaterally AUSCULTATION: clear to auscultation bilaterally Cardio: COMMON NORMALS: regular rate, regular rhythm and No murmurs present (Cardio) RATE: regular rate RHYTHM: regular rhythm GI: COMMON NORMALS: Soft to palpation and No hepatosplenomegaly present AUSCULTATION: Yes normoactive bowel sounds PALPATION: Yes Soft to palpation, No Tenderness to palpation present (GI), No Guarding due to palpation present (GI) and Yes No hepatosplenomegaly present Extremity: COMMON NORMALS: normal to inspection, capillary refill normal, no clubbing, cyanosis or edema, no calf tenderness and no pedal edema Neuro: SENSORIUM/ORIENTATION: Yes oriented to person, Yes oriented to place and Yes oriented to time Skin: COMMON NORMALS: no rashes or lesions noted GENERAL SKIN EXAM: no reji hes or lesions noted Course Vital Signs: Vital signs: Vital Signs Temperature 98.8 F 04/05/23 09:41 Pulse Rate 112 H 04/05/23 13:00 Respiratory Rate 17 04/05/23 12:45 Blood Pressure 151/52 04/05/23 13:00 Pulse Oximetry 100 04/05/23 12:45 Oxygen Delivery Me thod Room Air 04/05/23 12:30 Oxygen Flow Rate 1 04/05/23 11:37 MDM - SOB/Dyspnea Medical Decision Making Labs and imaging reviewed. Patient extensive work-up. Sodium is stable cardiac enzymes normal chest x-ray does not show any acute infiltrates or fluid overload CT did not show PE or Aortic dissection. Reviewed all findings with the patient her sats have been good she still feels like she cannot breathe especially when she starts to doze off. Discussed I think some of this is her sleep apnea. She does need to get back on BiPAP or CPAP. Follow-up with primary care doctor. Medical Records I reviewed the patient's medical records. Lab Data I reviewed the patient's lab results. 04/05/23 10:00 04/05/23 10:00 Labs/Radiology: Laboratory Results WBC 6.84 10^3/uL (3.29-11.43) 04/05/23 10:00 RBC 3.79 10^6/uL (3.85-5.65) L 04/05/23 10:00 Hgb 11.60 g/dL (11.27-16.99) 04/05/23 10:00 Hct 34.5 % (36-47) L 04/05/23 10:00 MCV 91.0 fl (85-98) 04/05/23 10:00 MCH 30.6 pg (27-33) 04/05/23 10:00 MCHC 33.6 g/dL (30-55) 04/05/23 10:00 RDW 13.4 % (12.1-15.1) 04/05/23 10:00 Plt Count 197 10^3/cmm (157-399) 04/05/23 10:00 MPV 9.6 fL (7.4-10.4) 04/05/23 10:00 Neut % (Auto) 73.2 % 04/05/23 10:00 Lymph % (Auto) 17.7 % 04/05/23 10:00 [place] % (Auto) 7.3 % 04/05/23 10:00 Eos % (Auto) 0.9 % 04/05/23 10:00 Baso % (Auto) 0.3 % 04/05/23 10:00 Neut # (Auto) 5.01 10^3/uL (1.8-7.7) 04/05/23 10:00 Lymph # (Auto) 1.2 10^3/uL (0.8-4.8) 04/05/23 10:00 [place] # (Auto) 0.5 10^3/uL (0.2-0.9) 04/05/23 10:00 Eos # (Auto) 0.1 10^3/uL (0.0-0.8) 04/05/23 10:00 Baso # (Auto) 0.0 10^3/uL (0.0-0.1) 04/05/23 10:00 Nucleated RBC % (auto) 0 % 04/05/23 10:00 Nucleated RBCs # 0.0 /100WBC 04/05/23 10:00 Sodium 132 mmol/L (136-145) L 04/05/23 10:00 Potassium 4.3 mmol/L (3.5-5.1) 04/05/23 10:00 Chloride 93 mmol/L (98-107) L 04/05/23 10:00 Carbon Dioxide 28 mmol/L (22-29) 04/05/23 10:00 Anion Gap 15.3 (5-19) 04/05/23 10:00 BUN 21 mg/dL (8-23) 04/05/23 10:00 Creatinine 0.6 mg/dL (0.5-0.9) 04/05/23 10:00 GFR Calculation Not Reportable 04/05/23 10:00 Glucose 244 mg/dL (65-115) H 04/05/23 10:00 POC Glucose 235 mg/dL (70-110) H 04/05/23 12:30 Calculated Osmolality 285 mOsm/kg (285-295) 04/05/23 10:00 Calcium 10.2 mg/dL (8.5-10.5) 04/05/23 10:00 Total Bilirubin 0.3 mg/dL (0.15-1.2) 04/05/23 10:00 AST 18 U/L (0-32) 04/05/23 10:00 ALT 20 U/L (0-33) 04/05/23 10:00 Alkaline Phosphatase 182 U/L (35-105) H 04/05/23 10:00 Troponin T Baseline 14 ng/L (0-10) H 04/05/23 10:00 Troponin T 120 Minute 16.02 ng/L (0-10) H 04/05/23 11:48 Delta Troponin T 2.02 ABS# (0-10) 04/05/23 11:48 Total Protein 7.0 g/dL (6.6-8.7) 04/05/23 10:00 Albumin 4.2 g/dL (3.5-5.2) 04/05/23 10:00 Globulin 2.8 g/dL (1.3-4.6) 04/05/23 10:00 All radiology interpretation(s) finalized by discharge Discharge Plan Discharge Patient Disposition: Home Clinical Impression: SOB (shortness of breath), Obesity hypoventilation syndrome Condition: Stable Prescriptions: No Action dicyclomine 10 mg capsule 10 mg PO QID cholecalciferol (vitamin D3) 1,000 unit capsule 1,000 unit PO QPM cranberry 500 mg capsule 500 mg PO QPM Lactobacillus acidophilus [Acidophilus] Capsule 1 cap PO QAM ferrous sulfate 325 mg (65 mg iron) tablet 325 mg PO DAILY@12 magnesium oxide 400 mg (241.3 mg magnesium) tablet 500 mg PO DAILY@12 nitroglycerin 0.4 mg tablet, sublingual 0.4 mg sublingual Q5M PRN (Reason: chest pain) 30 Days Qty: 30 3RF Rx Instructions: until response; do not exceed 3 doses per episode furosemide 20 mg tablet 60 mg PO DAILY tizanidine [Zanaflex] 4 mg tablet 4 mg PO BID PRN (Reason: Spasms) potassium chloride 8 mEq capsule, extended release 24 meq PO DAILY (DME) FreeStyle Tor 2 Sensor Kit See Rx Instructions .MEDSUPPLY Qty: 3 3RF Rx Instructions: As directed (DME) FreeStyle Tor 2 [place] Misc See Rx Instructions .Route Qty: 1 0RF Rx Instructions: As directed esomeprazole magnesium 40 mg capsule,delayed release(DR/EC) 40 mg PO DAILY albuterol sulfate 90 mcg/actuation HFA aerosol inhaler 2 puff INHALATION QID PRN (Reason: Shortness Of Breath) Qty: 8.5 3RF (DME) blood sugar diagnostic Strip See Rx Instructions .Route Qty: 400 3RF Rx Instructions: Check blood sugar 4 times a day. (DME) lancets [Comfort EZ Lancets] 21 gauge misc See Rx Instructions .Route Qty: 400 3RF Rx Instructions: As directed (DME) Easymax 15 test strips Strip See Rx Instructions .Route Qty: 400 3RF Rx Instructions: Check BS 4 times a day. (DME) Dexcom G6 Professional Architect Misc See Rx Instructions .Route Qty: 1 0RF Rx Instructions: Check BS 4-6 times a day. (DME) Dexcom G6 Sensor Device See Rx Instructions .Route Qty: 9 3RF Rx Instructions: Change every 10 days. (DME) Dexcom G6 Transmitter Device See Rx Instructions .Route Qty: 3 3RF Rx Instructions: Change every 90 days valsartan 320 mg tablet 320 mg PO DAILY Qty: 90 3RF isosorbide mononitrate 120 mg tablet extended release 24 hr 120 mg PO DAILY Qty: 90 3RF (DME) pen needle, diabetic [BD Ultra-Fine Mini Pen Needle] 31 gauge x 3/16 needle See Rx Instructions .ROUTE .COMPLEX Qty: 400 3RF Dose Instruction: USE DIRECTED Rx Instructions: QID clopidogrel 75 mg tablet 75 mg PO QPM Qty: 90 3RF Hold Instructions: Resume on 11/02/22. insulin degludec [Tresiba FlexTouch U-200] 200 unit/mL (3 mL) insulin pen 36 unit SUBCUT DAILY 90 Days Qty: 16.2 0RF Rx Instructions: at bed time aripiprazole 2 mg tablet See Rx Instructions .ROUTE .COMPLEX Qty: 30 5RF Dose Instruction: TAKE 1 TABLET BY MOUTH EVERY NIGHT AT BEDTIME Rx Instructions: TAKE 1 TABLET BY MOUTH EVERY NIGHT AT BEDTIME insulin lispro 100 unit/mL insulin pen See Rx Instructions .ROUTE .COMPLEX Qty: 30 0RF Dose Instruction: INJECT 22 UNITS UNDER THE SKIN THREE TIMES DAILY Rx Instructions: INJECT 22 UNITS UNDER THE SKIN THREE TIMES DAILY max dose 66 atorvastatin 40 mg tablet 40 mg PO BEDTIME vitamin E 1,000 unit Capsule 1,000 unit PO DAILY ascorbic acid (vitamin C) [Vitamin C] 500 mg Tablet,Chewable 500 mg PO DAILY@12 ondansetron 4 mg tablet,disintegrating 4 mg PO Q8H PRN (Reason: nausea and vomiting) Qty: 7 0RF hydrocortisone 10 mg tablet 10 mg PO QID metolazone 2.5 mg tablet 2.5 mg PO DAILY nystatin 100,000 unit/mL suspension 10 ml PO BID tramadol 50 mg tablet 50 mg PO BID PRN (Reason: Pain) citalopram 20 mg tablet 20 mg PO DAILY mupirocin 2 % ointment 1 applic TOPICAL DAILY mirtazapine 15 mg tablet 15 mg PO DAILY Discharge Orders: Discharge ED (Routine); Ordered 04/05/23 Ordered By: Maximiliano Morris Referrals: Arabella Orta MD [Primary Care Provider] - Discharge Diet: Usual diet Discharge Activity: Resume usual activity Patient Instructions: Opioid Safety, Pain Management Activity Restrictions/Additional Instructions: Thank you for choosing [facility] for your healthcare needs today. Please realize this is an emergency room and that we are providing you with a medical screening exam and this may not be complete and all inclusive of all the testing and or work up that you may need to determine your ailment or severity of your illness. It is very important that you follow up as instructed or that you return to the Emergency Department should you have concerns or if your condition changes or worsens in any way. You are seen today for complaint of chest pain shortness of breath your EKG did not show any acute changes your cardiac enzymes were normal CT and chest x-ray are also normal is no sign of pneumonia pneumothorax aneurysm or pulmonary embolism. Suspect your symptoms of being short of breath frequently are due to horcu sleep apnea and you likely will need a CPAP or BiPAP you should follow-up with your primary care doctor regarding this. Coding Level of Care Code ED Machine Stamper for [place]
--- NOTE | 2023-04-05 09:43 | ECG_ITS ---
[facility] Test Date: 2023-04-05 Pat Name: Brandi Berg Department: Room: Gender: Female Fine Artist: : 1945 Requested By: Maximiliano Lundberg Order Number: [id number] Gamal MD: Honey Smart M.D. Measurements Intervals [place] Rate: 99 P: 63 DE: 186 QRS: -29 QRSD: 97 T: 82 QT: 319 QTc: 409 Interpretive Statements SINUS RHYTHM BORDERLINE LEFT AXIS DEVIATION [QRS AXIS < -20] LEFT VENTRICULAR HYPERTROPHY AND ST-T CHANGE [VOLTAGE CRITERIA PLUS ST/T ABNORMALITY] Compared to ECG 03/12/2023 04:50:49 Left ventricular hypertrophy now present ST (T wave) deviation now present T-wave abnormality no longer present Electronically Signed On 04-05-2023 18:34:24 DOORS PREFITTER by Honey Smart M.D. [id number]
--- NOTE | 2023-04-05 09:48 | XR_ITS ---
WS: [id number] Exam: XR chest 1V portable [id number] Date/Time of Exam: 04/05/2023 9:52 AM Reason For Exam: dyspnea/cough/chest pain Comparison 03/12/2023. The lungs are clear and fully expanded. Normal cardiomediastinal silhouette. Single old LEFT rib frac ture noted. No pleural effusion. Degenerative change of the T-spine. IMPRESSION: 1. No acute cardiopulmonary finding.
[2023-04-05] MEDS: isosorbide mononitrate ER 60 mg Tablet 120 MG PO (10:03)
[2023-04-05] MEDS: hyDRALAzine 20 mg/mL INJ 1 mL IVP (10:03)
[2023-04-05 10:16] LABS: Basophils % 0.3 %; Eosinophils # 0.1 10^3/uL (0.0-0.8); Eosinophils % 0.9 %; Hematocrit 34.5 % (36-47); Lymphocytes # 1.2 10^3/uL (0.8-4.8); Lymphocytes % 17.7 %; Mean Corpuscular HGB Conc 33.6 g/dL (30-55); Mean Corpuscular Hemoglobin 30.6 pg (27-33); Mean Platelet Volume 9.6 fL (7.4-10.4); Monocytes # 0.5 10^3/uL (0.2-0.9); Monocytes % 7.3 %; Neutrophils # 5.01 10^3/uL (1.8-7.7); Neutrophils % 73.2 %; Nucleated Red Blood Cells % 0 %; Platelet Count 197 10^3/cmm (157-399); Red Blood Count 3.79 10^6/uL (3.85-5.65); Red Cell Distribution Width 13.4 % (12.1-15.1); White Blood Count 6.84 10^3/uL (3.29-11.43)
[2023-04-05 10:27] LABS: Alanine Aminotransferase 20 U/L (0-33); Albumin Level 4.2 g/dL (3.5-5.2); Alkaline Phosphatase 182 U/L (35-105); Anion Gap 15.3 (5-19); Aspartate Amino Transferase 18 U/L (0-32); Blood Urea Nitrogen 21 mg/dL (8-23); Calcium 10.2 mg/dL (8.5-10.5); Carbon Dioxide 28 mmol/L (22-29); Chloride 93 mmol/L (98-107); Globulin 2.8 g/dL (1.3-4.6); Glucose 244 mg/dL (65-115); Osmolality Calculated 285 mOsm/kg (285-295); Potassium 4.3 mmol/L (3.5-5.1); Sodium 132 mmol/L (136-145); Total Bilirubin 0.3 mg/dL (0.15-1.2); Troponin(5th) Baseline 14 ng/L (0-10)
[2023-04-05] MEDS: ketorolac 30 mg/mL INJ 15 MG IVP (11:14)
[2023-04-05] MEDS: ipratropium-albuterol 3 mL Neb INHALATION (11:36)
--- NOTE | 2023-04-05 11:42 | CT_ITS ---
WS: [id number] CTA OF THE CHEST WITH PULMONARY EMBOLISM PROTOCOL TECHNIQUE: High-resolution contrast enhanced CTA of the chest with coronal and sagittal reformatted i mages with pulmonary embolism protocol. MIP images are also reviewed. CLINICAL INFORMATION: dyspnea/hypoxia/tachycardia COMPARISON: 11/14/2021 DLP: 508.[address] scans at [facility] use at least one of these dose optimization techniques: automated e xposure control; mA and/or kV adjustment per patient size (includes targeted exams where dose is matc hed to clinical indication); or iterative reconstruction. FINDINGS: Proximal main pulmonary arteries are normal. Normal segmental and subsegmental pulmonary arteries. No evidence of pulmonary embolus. Normal caliber thoracic aorta. Aortic calcification. Calcified anteri or mediastinal and subcarinal lymph nodes. No axillary lymphadenopathy. Calcified RIGHT thyroid nodul e measuring 11 mm. Adrenal glands are normal. Hepatic granulomas. Small esophageal hernia. Splenic granulomas. No acute pulmonary infiltrates. Slight hazy atelectasis LEFT upper lobe. Hypertrophic changes thoracic spine w ith ankylosis. IMPRESSION: 1. No evidence of pulmonary embolus 2. Lungs are well aerated. 3. Slight hazy atelectasis LEFT upper lobe.
--- NOTE | 2023-04-05 11:47 | ECG_ITS ---
[facility] Test Date: 2023-04-05 Pat Name: Brandi Berg Department: Room: Gender: Female Syrup Maker Cook: : 1945 Requested By: Maximiliano Lundberg Order Number: [id number] Gamal MD: Honey Smart M.D. Measurements Intervals [place] Rate: 112 P: 46 MA: 152 QRS: -43 QRSD: 100 T: 80 QT: 331 QTc: 452 Interpretive Statements SINUS TACHYCARDIA LEFT AXIS DEVIATION [QRS AXIS < -30] LEFT VENTRICULAR HYPERTROPHY AND ST-T CHANGE [VOLTAGE CRITERIA PLUS ST/T ABNORMALITY] Compared to ECG 04/05/2023 09:43:41 Sinus rhythm no longer present ST (T wave) deviation still present Electronically Signed On 04-06-2023 1:52:39 DISABILITY MANAGER by Honey Smart M.D. [id number]
[2023-04-05] MEDS: iohexol 350 mg/mL 500 mL Btl (per mL) IV (12:20)
[2023-04-05 12:22] LABS: Troponin 5 2HR 16.02 ng/L (0-10)
[2023-04-05 12:24] LABS: Troponin 5 2HR Delta 2.02 ABS# (0-10)
[2023-04-05 12:33] LABS: Glucose Point of Care 235 mg/dL (70-110)
--- NOTE | 2023-04-05 13:16 | PC.NURSE ---
Pt able to ambulate in room from bed to sink and back with walker while nurse observed
== END 2023-04-05 14:12 | disposition home or self-care (01) ==
PROVIDERS: Emergency Provider Family Medicine; PCP Family Medicine
DX: R06.02 Shortness of breath (principal); E66.2 Morbid (severe) obesity with alveolar hypoventilation; Z68.36 Body mass index [BMI] 36.0-36.9, adult; Z79.02 Long term (current) use of antithrombotics/antiplatelets; Z79.4 Long term (current) use of insulin; I25.10 Atherosclerotic heart disease of native coronary artery without angina pectoris; I10 Essential (primary) hypertension; E78.5 Hyperlipidemia, unspecified
CPT/HCPCS: 36415; 36416; 71045; 71275; 80053; 82962; 84484; 85025; 93005; 94640; 96374; 96375; 99285; J0360; J1885; Q9967

== ENCOUNTER → 2023-04-07 12:43 | Outpatient (BNVA) | payer MEDICARE, OTHER, SELFPAY | PROVIDERS: PCP Family Medicine; Visit Provider Internal Medicine Cardiovascular Disease | DX: M79.606 Pain in leg, unspecified (principal); E66.2 Morbid (severe) obesity with alveolar hypoventilation; E87.1 Hypo-osmolality and hyponatremia; M17.0 Bilateral primary osteoarthritis of knee; I25.10 Atherosclerotic heart disease of native coronary artery without angina pectoris; I10 Essential (primary) hypertension; E11.649 Type 2 diabetes mellitus with hypoglycemia without coma; R60.0 Localized edema; E78.5 Hyperlipidemia, unspecified; Z68.38 Body mass index [BMI] 38.0-38.9, adult; Z79.4 Long term (current) use of insulin | CPT/HCPCS: 99215 ==

== ENCOUNTER 2023-04-12 06:36 | Outpatient (CLI) | payer MEDICARE, OTHER, SELFPAY ==
--- NOTE | 2023-04-12 07:00 | CT_ITS ---
WS: [id number] CTA ABDOMINAL AORTA WITH RUNOFF TECHNIQUE: Contrast enhanced CTA of the abdominal aorta with bilateral lower extremity runoff. Multip lanar reformatted images were obtained. MIP reformats were also reviewed. CLINICAL INFORMATION: abnormal TOM, pain, swelling both LE, COMPARISON: CTA abdomen/pelvis 09/09/2022 DLP: 1680.[address] scans at [facility] use at least one of these dose optimization techniques: automated e xposure control; mA and/or kV adjustment per patient size (includes targeted exams where dose is matc hed to clinical indication); or iterative reconstruction. FINDINGS: Normal caliber abdominal aorta. Moderate aortic calcification. No aneurysm. Celiac and SMA are patent. Mild stenosis at the SMA origin. Splenic artery calcification. Renal arteries are patent. Mild RIGHT greater than LEFT renal ostial stenosis. Normal renal parenchymal enhancement. Adrenal gl ands are normal. Small esophageal hiatal hernia. Bilateral THAs degrade images in the pelvis. RIGHT: RIGHT common iliac artery is patent. External iliac artery is patent. Calcified internal iliac artery is patent. Somewhat diminutive but patent common femoral artery. Deep femoral artery is paten t. Superficial femoral artery is patent. Somewhat diminutive superficial femoral artery with mild seg mental stenosis and calcification. Popliteal artery is patent. Popliteal artery is patent to the trif urcation with three-vessel runoff to the ankle. LEFT: LEFT common iliac artery is patent. Internal iliac artery is patent. The external iliac artery is patent. Common femoral artery is somewhat diminutive with mild calcification but patent. Diminutiv e superficial femoral artery. Deep femoral artery is patent. Mild segmental stenosis superficial femo ral artery with tapering distally. High-grade stenosis in the distal superficial femoral artery at th e adductor hiatus. Popliteal artery is patent. Popliteal artery is patent to the trifurcation. Three- vessel runoff to the ankle. 4 mm subpleural nodule RIGHT lower lobe. Diffuse fatty infiltration of the liver. Hepatomegaly. Gamaliel l vein and splenic vein are patent. Fatty atrophy of the pancreas. Normal renal parenchymal enhanceme nt. No hydronephrosis. Adrenal glands are normal. Sigmoid diverticulosis. Slight anterolisthesis L4 o n L5. IMPRESSION: 1. Moderate atheromatous disease abdominal aorta. No aneurysm. 2. RIGHT: No flow-limiting stenosis RIGHT lower extremity. Somewhat diminutive superficial femoral a rtery with segmental stenosis which remains patent. 3. LEFT: High-grade stenosis in the distal superficial femoral artery proximal popliteal artery at t he adductor hiatus. Reconstitution of the popliteal artery above the knee with three-vessel runoff to the ankle.
[2023-04-12] MEDS: iohexol 350 mg/mL 500 mL Btl (per mL) IV (07:30)
== END 2023-04-12 06:37 | disposition home or self-care (01) ==
PROVIDERS: PCP Family Medicine; Visit Provider Internal Medicine Cardiovascular Disease
DX: M79.605 Pain in left leg (principal); M79.604 Pain in right leg; M79.89 Other specified soft tissue disorders; I70.0 Atherosclerosis of aorta; I70.203 Unspecified atherosclerosis of native arteries of extremities, bilateral legs
CPT/HCPCS: 75635; 99024; Q9967

== ENCOUNTER 2023-04-22 14:33 | Outpatient (CLI) | payer MEDICARE, OTHER, SELFPAY ==
[2023-04-22 15:50] LABS: Anion Gap 13.7 (5-19); Blood Urea Nitrogen 13 mg/dL (8-23); Calcium 10.2 mg/dL (8.5-10.5); Carbon Dioxide 29 mmol/L (22-29); Chloride 91 mmol/L (98-107); Glucose 189 mg/dL (65-115); Osmolality Calculated 275 mOsm/kg (285-295); Potassium 3.7 mmol/L (3.5-5.1); Sodium 130 mmol/L (136-145)
== END 2023-04-22 14:34 | disposition home or self-care (01) ==
LOC: LAB 14:38
PROVIDERS: PCP Family Medicine; Visit Provider Family Medicine
DX: E87.1 Hypo-osmolality and hyponatremia (principal)
CPT/HCPCS: 80048

== ENCOUNTER 2023-04-27 12:27 | Outpatient (RCR) | payer MEDICARE, OTHER, SELFPAY | END 2023-05-23 23:59 | disposition home or self-care (01) | LOC: SPT 12:27 | PROVIDERS: PCP Family Medicine; Visit Provider Family Medicine | DX: R60.9 Edema, unspecified (principal) | CPT/HCPCS: 97140; 97161 ==

== ENCOUNTER → 2023-05-10 14:38 | Outpatient (BNVA) | payer MEDICARE, OTHER, SELFPAY | PROVIDERS: PCP Family Medicine; Visit Provider Podiatrist Foot & Ankle Surgery | DX: E11.42 Type 2 diabetes mellitus with diabetic polyneuropathy (principal); L60.3 Nail dystrophy; I73.9 Peripheral vascular disease, unspecified; R09.89 Other specified symptoms and signs involving the circulatory and respiratory systems; L84 Corns and callosities; Z79.4 Long term (current) use of insulin | CPT/HCPCS: 11056; 11721 ==

== ENCOUNTER → 2023-05-12 09:49 | Outpatient (BNVA) | payer MEDICARE, OTHER, SELFPAY | PROVIDERS: PCP Family Medicine; Visit Provider Nurse Practitioner Family | DX: L82.0 Inflamed seborrheic keratosis (principal); L57.0 Actinic keratosis; D22.39 Melanocytic nevi of other parts of face | CPT/HCPCS: 17000; 17110; 99203 ==

== ENCOUNTER 2023-06-02 18:55 | Emergency (ER) | payer MEDICARE, OTHER, SELFPAY ==
[2023-06-02 18:56] VITALS: BP 149/54; PULSE 93; RESP 18; TEMP 36.7; O2SAT 97; BMI 36.9
[2023-06-02 19:06] VITALS: BP 142/93; PULSE 90; O2SAT 97
--- NOTE | 2023-06-02 19:41 | XRR_ITS ---
PROCEDURE INFORMATION: Exam: XR Chest Exam date and time: 06/02/2023 8:19 PM Age: 78 years old Clinical indication: Pain; Chest pressure; Additional info: Chest pain, chf TECHNIQUE: Imaging protocol: Radiologic exam of the chest. Views: 1 view. COMPARISON: CT angio chest PE protcl [id number] 04/05/2023 12:15 PM FINDINGS: Lungs: Unremarkable. No consolidation. Pleural spaces: Unremarkable. No pleural effusion. No pneumothorax. Heart/Mediastinum: Unremarkable. No cardiomegaly. Bones/joints: Unremarkable. XR/XR chest 1V portable [id number] IMPRESSION: No acute findings.
--- NOTE | 2023-06-02 19:44 | W.ED.CHESTPA ---
HPI - Chest Pain General: Chief Complaint: Chest Pain Stated Complaint: Chest pain, SOB Time Seen by Provider: 06/02/23 18:57 History of Present Illness: 78-year-old female presents the emergency department with chest discomfort that started around 530 this evening at rest. She reports she had just gotten up to take her dishes to the counter after supper. She reports that the pain started in her left chest and center chest and then radiated up into her neck on both sides. Then she started getting pain in her back and down both arms. She reports she does have a history of coronary artery disease. She has 3 stents. She reports that she was due to have a sleep study tonight at 8 PM. She has history of sleep apnea and uses 2 L of oxygen at night and was going tonight to see if she could qualify for a CPAP. Patient endorses that she does not have frequent chest pain. She does have fibromyalgia and has chronic diffuse body pain but this is not a usual symptom for her. She denies any vomiting, diaphoresis, syncope but does endorse that she felt palpitations. Her took her heart rate and it was in the 90s. She was given aspirin by EMS. She has not tried a nitroglycerin. No recent respiratory issues. She does suffer from bilateral lower extremity edema and she has wraps on both of her legs. She is developed some cellulitis of her lower extremities and was recently prescribed clindamycin but she has not yet started it. No reported history of DVT or PE. Associated symptoms: Deny abdominal pain, dyspnea, fever(s), nausea, syncope or vomiting Review of Systems General: Reports: 10 or more systems reviewed and unremarkable except in HPI and below Const: Denies: fever(s) or chills Eyes: Denies: change in vision ENMT: Denies: throat pain Card: Denies: syncope Resp: Denies: dyspnea or productive cough GI: Denies: abdominal pain, nausea, vomiting or diarrhea : Denies: flank pain, dysuria or urinary frequency Neuro: Denies: headache(s), numbness in extremities, weakness in extremities, lack of coordination or difficulty walking [facility] ED PFSH: Medical History Morbid obesity Leg pain Psychiatric care Psychiatric care 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 Left axis deviation. Normal MO and QRS duration. Dyslipidemia (high LDL; low HDL) Benign essential hypertension with target blood pressure below 140/90 Atherosclerotic heart disease of [place] coronary artery without angina pectoris Status post left heart catheterization Recurrent UTI Gross hematuria Bipolar II disorder Surgical History Hx of bilateral hip replacements Hx of bladder repair surgery History of colonoscopy (~2018) History of coronary artery stent placement History of right knee surgery S/P appendectomy S/P hysterectomy S/P hernia repair S/P hip replacement Family History Family/Other Diabetes Other Cancer Social History Smoking and tobacco/nicotine status: never used tobacco/nicotine Alcohol intake: never Substance/Drug Use: never Household members: spouse Marital status: Current occupational status: retired Physical Exam Narrative: EXAM NARRATIVE: Patient is laying in left lateral decubitus when I arrived. She reports she is still having episodes of chest pain radiating up to her neck. She appears uncomfortable but not distressed. She does have wraps on both of her lower extremities. She has a little bit of warm erythematous skin extending just above her wraps. No asymmetric swelling of the lower extremities. No JVD. Lungs are clear, no respiratory distress. It is notable that she has pain pretty much anywhere I palpate on her body. However, she reports she is used to this and still thinks that the chest discomfort is different. Const: COMMON NORMALS: no limitations, alert and well nourished EXAM LIMITATIONS: no altered mental status HENMT: COMMON NORMALS: normocephalic, atraumatic and external ears normal HEAD & SCALP: normocephalic and atraumatic EXTERNAL EAR: Yes external ears normal MOUTH: no muffled voice Eye: COMMON NORMALS: EOMs intact bilaterally, conjunctivae normal and no scleral icterus CONJUNCTIVA: Yes conjunctivae normal Neck/C-Spine: COMMON NORMALS: no JVD GENERAL: Yes normal visual inspection and Yes trachea midline Resp: COMMON NORMALS: normal respiratory effort, No use of accessory muscles and clear to auscultation bilaterally AUSCULTATION: clear to auscultation bilaterally Cardio: COMMON NORMALS: no JVD, regular rate and regular rhythm RATE: regular rate RHYTHM: regular rhythm GI: COMMON NORMALS: Soft to palpation and non-tender PALPATION: Yes Soft to palpation and No Guarding due to palpation present (GI) Neuro: COMMON NORMALS: moves all extremities, no focal motor deficits and no sensory deficits noted SENSORIUM/ORIENTATION: Yes alert SPEECH: speech normal Psych: COMMON NORMALS: mental status grossly normal, Normal thought process present, cooperative, normal affect and speech normal SPEECH: Yes normal speech THOUGHT PROCESS: Normal thought process present Skin: COMMON NORMALS: turgor normal and no jaundice GENERAL SKIN EXAM: turgor normal Course Vital Signs: Vital signs: Vital Signs Temperature 98.1 F 06/02/23 18:56 Pulse Rate 93 06/02/23 18:56 Respiratory Rate 18 06/02/23 18:56 Blood Pressure 149/54 06/02/23 18:56 Pulse Oximetry 97 06/02/23 18:56 Oxygen Delivery Me thod Room Air 06/02/23 18:56 MDM - Chest Pain Medical Decision Making Differential diagnosis includes acute coronary syndrome, anxiety, referred pain, fibromyalgia, angina, pulmonary edema, other. Low suspicion for pulmonary embolism. Patient's pain is aching and is reproducible with palpation and movement. She also has pain and aching in her shoulders, upper back, mid back, etc. This seems more fibromyalgia/myofascial than ACS. EKG obtained at 1904 EP interpretation Sinus rhythm, rate 92, left axis deviation, QRS duration 98 ms, no ectopy, no concerning ST segment elevations or depressions. CXR 1 View EP interp: Cardiomediastinal silhouette within normal limits, no pulmonary edema, effusions, bony abnormalities noted. Initial troponin is 21. I discussed with the patient on reexamination. She is still achy all over. She says this is not unusual for her. As time has gone on, she seems less concerned about her heart more with diffuse pain. I discussed with her potential plan. She would like to go home. She is willing to stay for a delta troponin. Therefore, if her delta troponin is stable or minimally changed, we will plan for discharge as she already has an appointment with cardiology tomorrow. She would like to stay away from any opiates or muscle relaxers. 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 She has tizanidine at home and it makes her extremely sleepy. I gave her some IV Tylenol for her achiness. Signed out to Dr Yi at end of shift pending the delta trop, which is due at 2200. Lab Data 06/02/23 20:00 06/02/23 20:00 Radiology Impressions Chest X-Ray 06/02/23 19:41 IMPRESSION: No acute findings. Laboratory Results WBC 6.81 10^3/uL (3.29-11.43) 06/02/23 20:00 RBC 4.00 10^6/uL (3.85-5.65) 06/02/23 20:00 Hgb 12.40 g/dL (11.27-16.99) 06/02/23 20:00 Hct 37.1 % (36-47) 06/02/23 20:00 MCV 92.8 fl (85-98) 06/02/23 20:00 MCH 31.0 pg (27-33) 06/02/23 20:00 MCHC 33.4 g/dL (30-55) 06/02/23 20:00 RDW 12.8 % (12.1-15.1) 06/02/23 20:00 Plt Count 236 10^3/cmm (157-399) 06/02/23 20:00 MPV 9.1 fL (7.4-10.4) 06/02/23 20:00 Neut % (Auto) 68.8 % 06/02/23 20:00 Lymph % (Auto) 19.1 % 06/02/23 20:00 [place]alier % (Auto) 9.5 % 06/02/23 20:00 Eos % (Auto) 1.8 % 06/02/23 20:00 Baso % (Auto) 0.4 % 06/02/23 20:00 Neut # (Auto) 4.68 10^3/uL (1.8-7.7) 06/02/23 20:00 Lymph # (Auto) 1.3 10^3/uL (0.8-4.8) 06/02/23 20:00 [place] # (Auto) 0.7 10^3/uL (0.2-0.9) 06/02/23 20:00 Eos # (Auto) 0.1 10^3/uL (0.0-0.8) 06/02/23 20:00 Baso # (Auto) 0.0 10^3/uL (0.0-0.1) 06/02/23 20:00 Nucleated RBC % (auto) 0 % 06/02/23 20:00 Nucleated RBCs # 0.0 /100WBC 06/02/23 20:00 Sodium 132 mmol/L (136-145) L 06/02/23 20:00 Potassium 3.5 mmol/L (3.5-5.1) 06/02/23 20:00 Chloride 92 mmol/L (98-107) L 06/02/23 20:00 Carbon Dioxide 30 mmol/L (22-29) H 06/02/23 20:00 Anion Gap 13.5 (5-19) 06/02/23 20:00 BUN 20 mg/dL (8-23) 06/02/23 20:00 Creatinine 0.8 mg/dL (0.5-0.9) 06/02/23 20:00 GFR Calculation Not Reportable 06/02/23 20:00 Glucose 193 mg/dL (65-115) H 06/02/23 20:00 Calculated Osmolality 282 mOsm/kg (285-295) L 06/02/23 20:00 Calcium 10.7 mg/dL (8.5-10.5) H 06/02/23 20:00 Total Bilirubin 0.3 mg/dL (0.15-1.2) 06/02/23 20:00 AST 24 U/L (0-32) 06/02/23 20:00 ALT 24 U/L (0-33) 06/02/23 20:00 Alkaline Phosphatase 172 U/L (35-105) H 06/02/23 20:00 Troponin T Baseline 21 ng/L (0-10) H 06/02/23 20:00 NT-Pro-B Natriuret Pep 166 pg/mL (0-450) 06/02/23 20:00 Total Protein 7.3 g/dL (6.6-8.7) 06/02/23 20:00 Albumin 4.0 g/dL (3.5-5.2) 06/02/23 20:00 Globulin 3.3 g/dL (1.3-4.6) 06/02/23 20:00 All radiology interpretation(s) finalized by discharge Discharge Plan Discharge Clinical Impression: Chest pain, Diffuse myofascial pain syndrome Condition: Stable Prescriptions: No Action dicyclomine 10 mg capsule 10 mg PO QID cholecalciferol (vitamin D3) 1,000 unit capsule 1,000 unit PO QPM cranberry 500 mg capsule 500 mg PO QPM Lactobacillus acidophilus [Acidophilus] Capsule 1 cap PO QAM ferrous sulfate 325 mg (65 mg iron) tablet 325 mg PO DAILY@12 magnesium oxide 400 mg (241.3 mg magnesium) tablet 500 mg PO DAILY@12 nitroglycerin 0.4 mg tablet, sublingual 0.4 mg sublingual Q5M PRN (Reason: chest pain) 30 Days Qty: 30 3RF Rx Instructions: until response; do not exceed 3 doses per episode furosemide 20 mg tablet 60 mg PO DAILY tizanidine [Zanaflex] 4 mg tablet 4 mg PO BID PRN (Reason: Spasms) potassium chloride 8 mEq capsule, extended release 24 meq PO DAILY (DME) FreeStyle Tor 2 Sensor Kit See Rx Instructions .MEDSUPPLY Qty: 3 3RF Rx Instructions: As directed (DME) FreeStyle Tor 2 [place] Misc See Rx Instructions .Route Qty: 1 0RF Rx Instructions: As directed esomeprazole magnesium 40 mg capsule,delayed release(DR/EC) 40 mg PO DAILY albuterol sulfate 90 mcg/actuation HFA aerosol inhaler 2 puff INHALATION QID PRN (Reason: Shortness Of Breath) Qty: 8.5 3RF (DME) blood sugar diagnostic Strip See Rx Instructions .Route Qty: 400 3RF Rx Instructions: Check blood sugar 4 times a day. (DME) lancets [Comfort EZ Lancets] 21 gauge misc See Rx Instructions .Route Qty: 400 3RF Rx Instructions: As directed (DME) Easymax 15 test strips Strip See Rx Instructions .Route Qty: 400 3RF Rx Instructions: Check BS 4 times a day. (DME) Dexcom G6 Requirements Analyst Misc See Rx Instructions .Route Qty: 1 0RF Rx Instructions: Check BS 4-6 times a day. (DME) Dexcom G6 Sensor Device See Rx Instructions .Route Qty: 9 3RF Rx Instructions: Change every 10 days. (DME) Dexcom G6 Transmitter Device See Rx Instructions .Route Qty: 3 3RF Rx Instructions: Change every 90 days valsartan 320 mg tablet 320 mg PO DAILY Qty: 90 3RF isosorbide mononitrate 120 mg tablet extended release 24 hr 120 mg PO DAILY Qty: 90 3RF (DME) pen needle, diabetic [BD Ultra-Fine Mini Pen Needle] 31 gauge x 3/16 needle See Rx Instructions .ROUTE .COMPLEX Qty: 400 3RF Dose Instruction: USE DIRECTED Rx Instructions: QID clopidogrel 75 mg tablet 75 mg PO QPM Qty: 90 3RF Hold Instructions: Resume on 11/02/22. insulin degludec [Tresiba FlexTouch U-200] 200 unit/mL (3 mL) insulin pen 36 unit SUBCUT DAILY 90 Days Qty: 16.2 0RF Rx Instructions: at bed time aripiprazole 2 mg tablet See Rx Instructions .ROUTE .COMPLEX Qty: 30 5RF Dose Instruction: TAKE 1 TABLET BY MOUTH EVERY NIGHT AT BEDTIME Rx Instructions: TAKE 1 TABLET BY MOUTH EVERY NIGHT AT BEDTIME insulin lispro [Humalog KwikPen Insulin] 100 unit/mL insulin pen See Rx Instructions .ROUTE .COMPLEX Qty: 30 1RF Dose Instruction: ADMINISTER 22 UNITS UNDER THE SKIN THREE TIMES DAILY. MAX DOSE 66 Rx Instructions: ADMINISTER 22 UNITS UNDER THE SKIN THREE TIMES DAILY. MAX DOSE 66 atorvastatin 40 mg tablet 40 mg PO BEDTIME vitamin E 1,000 unit Capsule 1,000 unit PO DAILY ascorbic acid (vitamin C) [Vitamin C] 500 mg Tablet,Chewable 500 mg PO DAILY@12 ondansetron 4 mg tablet,disintegrating 4 mg PO Q8H PRN (Reason: nausea and vomiting) Qty: 7 0RF hydrocortisone 10 mg tablet 10 mg PO QID metolazone 2.5 mg tablet 2.5 mg PO DAILY nystatin 100,000 unit/mL suspension 10 ml PO BID tramadol 50 mg tablet 50 mg PO BID PRN (Reason: Pain) mupirocin 2 % ointment 1 applic TOPICAL DAILY Referrals: Arabella Orta MD [Primary Care Provider] - 1 week Gilma Cai MD [Physician] - 06/03/23 Discharge Diet: Cardiac Discharge Activity: Increase activity as tolerated Patient Instructions: Chest Pain (ED), Pain Management Coding Level of Care Code 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
[2023-06-02] MEDS: nitroglycerin 0.4 mg sublingual Tablet SUBLINGUAL (19:59)
--- NOTE | 2023-06-02 20:07 | ECG_ITS ---
[facility] Test Date: 2023-06-02 Pat Name: Brandi Berg Department: Room: Gender: Female Voice And Data Technician: : 1945 Requested By: Johny Nur Order Number: [id number] Gamal MD: Gilma Cai M.D. Measurements Intervals [place] Rate: 93 P: 30 ID: [id number] QRS: -42 QRSD: 98 T: 77 QT: 350 QTc: 437 Interpretive Statements SINUS RHYTHM LEFT AXIS DEVIATION [QRS AXIS < -30] MODERATE VOLTAGE CRITERIA FOR LVH, CONSIDER NORMAL VARIANT [MEETS CRITERIA IN ONE OF: R(aVL), S(V1), R(V5), R(V5/V6)+S(V1)] NONSPECIFIC T-WAVE ABNORMALITY INTERPRETATION BASED ON A DEFAULT AGE OF 40 YEARS Compared to ECG 04/05/2023 11:47:54 T-wave abnormality now present Sinus tachycardia no longer present ST (T wave) deviation no longer present Electronically Signed On 06-04-2023 13:41:51 GAME DESIGNER by Gilma Cai M.D. [id number]
[2023-06-02 20:08] LABS: Basophils % 0.4 %; Eosinophils # 0.1 10^3/uL (0.0-0.8); Eosinophils % 1.8 %; Hematocrit 37.1 % (36-47); Lymphocytes # 1.3 10^3/uL (0.8-4.8); Lymphocytes % 19.1 %; Mean Corpuscular HGB Conc 33.4 g/dL (30-55); Mean Corpuscular Volume 92.8 fl (85-98); Mean Platelet Volume 9.1 fL (7.4-10.4); Monocytes # 0.7 10^3/uL (0.2-0.9); Monocytes % 9.5 %; Neutrophils # 4.68 10^3/uL (1.8-7.7); Neutrophils % 68.8 %; Nucleated Red Blood Cells % 0 %; Platelet Count 236 10^3/cmm (157-399); Red Cell Distribution Width 12.8 % (12.1-15.1); White Blood Count 6.81 10^3/uL (3.29-11.43)
[2023-06-02 20:30] LABS: Troponin(5th) Baseline 21 ng/L (0-10)
[2023-06-02 20:36] VITALS: BP 132/61; PULSE 91; O2SAT 99
[2023-06-02 20:43] LABS: Alanine Aminotransferase 24 U/L (0-33); Alkaline Phosphatase 172 U/L (35-105); Anion Gap 13.5 (5-19); Aspartate Amino Transferase 24 U/L (0-32); Blood Urea Nitrogen 20 mg/dL (8-23); Calcium 10.7 mg/dL (8.5-10.5); Carbon Dioxide 30 mmol/L (22-29); Chloride 92 mmol/L (98-107); Globulin 3.3 g/dL (1.3-4.6); Glucose 193 mg/dL (65-115); NT Pro B Type Natriuretic Pept 166 pg/mL (0-450); Osmolality Calculated 282 mOsm/kg (285-295); Potassium 3.5 mmol/L (3.5-5.1); Sodium 132 mmol/L (136-145); Total Bilirubin 0.3 mg/dL (0.15-1.2); Total Protein 7.3 g/dL (6.6-8.7)
[2023-06-02 21:06] VITALS: BP 135/57; PULSE 88; RESP 17; O2SAT 97
[2023-06-02 21:36] VITALS: BP 147/59; PULSE 94; RESP 17; O2SAT 96
[2023-06-02 22:13] LABS: Troponin 5 2HR 20.93 ng/L (0-10); Troponin 5 2HR Delta -0.07 ABS# (0-10)
[2023-06-02 23:28] VITALS: BP 131/73; PULSE 91; O2SAT 93
== END 2023-06-02 23:29 | disposition home or self-care (01) ==
PROVIDERS: Emergency Medicine; Emergency Provider Internal Medicine; PCP Family Medicine
DX: R07.9 Chest pain, unspecified (principal); M79.18 Myalgia, other site; Z79.4 Long term (current) use of insulin; Z79.02 Long term (current) use of antithrombotics/antiplatelets; E78.5 Hyperlipidemia, unspecified; I10 Essential (primary) hypertension; I25.10 Atherosclerotic heart disease of native coronary artery without angina pectoris
CPT/HCPCS: 36415; 71045; 80053; 83880; 84484; 85025; 93005; 99285

== ENCOUNTER → 2023-06-03 09:46 | Outpatient (BNVA) | payer MEDICARE, OTHER, SELFPAY | PROVIDERS: PCP Family Medicine; Visit Provider Internal Medicine Cardiovascular Disease | DX: I25.10 Atherosclerotic heart disease of native coronary artery without angina pectoris (principal); I73.9 Peripheral vascular disease, unspecified; I10 Essential (primary) hypertension; E78.5 Hyperlipidemia, unspecified; R06.09 Other forms of dyspnea; G62.9 Polyneuropathy, unspecified; M79.89 Other specified soft tissue disorders; G47.33 Obstructive sleep apnea (adult) (pediatric) | CPT/HCPCS: 99214 ==

== ENCOUNTER 2023-06-08 20:00 | Outpatient (CLI) | payer MEDICARE, OTHER, SELFPAY | END 2023-06-08 20:01 | disposition home or self-care (01) | LOC: SLEEP 06-09 06:18 | PROVIDERS: PCP Family Medicine; Visit Provider Family Medicine | DX: G47.33 Obstructive sleep apnea (adult) (pediatric) (principal); R09.02 Hypoxemia | CPT/HCPCS: 95810 ==

== ENCOUNTER 2023-06-11 11:02 | Outpatient (CLI) | payer MEDICARE, OTHER, SELFPAY ==
[2023-06-11 11:51] LABS: Anion Gap 14.2 (5-19); Blood Urea Nitrogen 20 mg/dL (8-23); Calcium 10.1 mg/dL (8.5-10.5); Carbon Dioxide 28 mmol/L (22-29); Chloride 95 mmol/L (98-107); Glucose 288 mg/dL (65-115); Osmolality Calculated 289 mOsm/kg (285-295); Potassium 4.2 mmol/L (3.5-5.1); Sodium 133 mmol/L (136-145)
== END 2023-06-11 11:03 | disposition home or self-care (01) ==
LOC: LAB 11:03
PROVIDERS: PCP Family Medicine; Visit Provider Family Medicine
DX: E87.1 Hypo-osmolality and hyponatremia (principal)
CPT/HCPCS: 36415; 80048

== ENCOUNTER 2023-06-23 15:21 | Emergency (ER) | payer MEDICARE, OTHER, SELFPAY ==
--- NOTE | 2023-06-23 15:24 | XR_ITS ---
WS: [id number] Portable AP upright chest, 06/23/2023 Clinical Data: cp Comparison: Portable chest, 06/02/2023 Findings: No nodules, masses or effusions are seen. The heart is normal. The pulmonary vascularity is not increased. No pneumonia or pneumothorax is seen. The aortic arch and descending thoracic aorta s how calcification and tortuosity. Impression: Atherosclerosis.
--- NOTE | 2023-06-23 15:25 | ECG_ITS ---
[facility] Test Date: 2023-06-23 Pat Name: Brandi Berg Department: Room: Gender: Female Stone And Concrete Washer: : 1945 Requested By: Enrico Camejo Order Number: [id number] Gamal MD: Jose Sumner M.D. Measurements Intervals [place] Rate: 89 P: -37 MO: 164 QRS: -41 QRSD: 106 T: 83 QT: 332 QTc: 406 Interpretive Statements SINUS RHYTHM LEFT AXIS DEVIATION [QRS AXIS < -30] LEFT VENTRICULAR HYPERTROPHY AND ST-T CHANGE [VOLTAGE CRITERIA PLUS ST/T ABNORMALITY] Compared to ECG 06/02/2023 20:07:33 ST (T wave) deviation now present T-wave abnormality no longer present Electronically Signed On 06-23-2023 18:26:22 INSIDE SALES SPECIALIST by Jose Sumner M.D. [id number]
[2023-06-23 15:27] VITALS: BP 173/74; PULSE 89; RESP 16; O2SAT 98
--- NOTE | 2023-06-23 15:51 | ED_ITS ---
HPI - Chest Pain 2 General: Chief Complaint: Chest Pain Stated Complaint: chest pain sob Time Seen by Provider: 06/23/23 15:49 History of Present Illness: 78-year-old female comes in today with c omplaints of increased chest pain and lower extremity pain. Patient reports that she has been seen by Dr. Cai and is awaiting a stress test. Patient reports some increased pain and discomfort today that prompted her to come to the ER. Patient only takes acetaminophen and tramadol for pain. Patient has that history of diabetes mellitus, coronary artery disease, peripheral vascular disease, patient appears nontoxic, patient appears in mild to moderate pain. 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 Left axis deviation. Normal [place] and QRS duration. Dyslipidemia (high LDL; low HDL) Benign essential hypertension with target blood pressure below 140/90 Atherosclerotic heart disease of [place] coronary artery without angina pectoris Status post left heart catheterization Recurrent UTI Gross hematuria Bipolar II disorder Surgical History Hx of bilateral hip replacements Hx of bladder repair surgery History of colonoscopy (~2018) History of coronary artery stent placement History of right knee surgery S/P appendectomy S/P hysterectomy S/P hernia repair S/P hip replacement Family History Family/Other Diabetes Other Cancer Social History Smoking and tobacco/nicotine status: never used tobacco/nicotine Alcohol intake: never Substance/Drug Use: never Household members: spouse Marital status: Current occupational status: retired Physical Exam 2 Const: COMMON NORMALS: alert HENMT: COMMON NORMALS: normocephalic HEAD & SCALP: normocephalic Neck/C-Spine: COMMON NORMALS: full ROM Chest: COMMONS NORMALS: normal inspection of the chest Resp: COMMON NORMALS: normal respiratory effort and clear to auscultation bilaterally AUSCULTATION: clear to auscultation bilaterally Cardio: COMMON NORMALS: regular rate and regular rhythm RATE: regular rate RHYTHM: regular rhythm GI: COMMON NORMALS: Soft to palpation and non-tender PALPATION: Yes Soft to palpation Back/Pelvis: COMMON NORMALS: thoracic and lumbar spine normal to inspection Extremity: COMMON NORMALS: capillary refill normal Neuro: SENSORIUM/ORIENTATION: Yes alert Skin: COMMON NORMALS: turgor normal GENERAL SKIN EXAM: turgor normal Course 2 Vital Signs: Vital signs: Vital Signs Pulse Rate 89 06/23/23 15:27 Respiratory Rate 16 06/23/23 15:27 Blood Pressure 173/74 06/23/23 15:27 Pulse Oximetry 98 06/23/23 15:27 Oxygen Delivery Me thod Room Air 06/23/23 15:27 MDM - Chest Pain Medical Decision Making 78-year-old female comes in today with complaints of increased chest discomfort and lower extremity pain. On exam respirations are even lungs are clear to auscultation. Skin is warm and dry. Patient has chronic skin changes to lower extremities bilateral most likely due to peripheral vascular disease. Pulses are intact. Abdomen soft nontender. Vital signs are stable except for elevated blood pressure at 173. Differential diagnosis includes but not limited to ACS, CHF, chronic pain syndrome, anxiety. Patient's pain was improved with IV acetaminophen. No signs of severe illness or injury is noted. Chest x-ray was unremarkable. Laboratory values showed no significant change from prior exams. Troponin was stable at 18 with no significant changes from prior exams. Reviewed exam with patient with recommendations for treatment and follow-up with primary care and Dr. Cai. Lab Data 06/23/23 15:49 06/23/23 15:49 Laboratory Results WBC 7.03 10^3/uL (3.29-11.43) 06/23/23 15:49 RBC 3.91 10^6/uL (3.85-5.65) 06/23/23 15:49 Hgb 12.40 g/dL (11.27-16.99) 06/23/23 15:49 Hct 37.2 % (36-47) 06/23/23 15:49 MCV 95.1 fl (85-98) 06/23/23 15:49 MCH 31.7 pg (27-33) 06/23/23 15:49 MCHC 33.3 g/dL (30-55) 06/23/23 15:49 RDW 12.8 % (12.1-15.1) 06/23/23 15:49 Plt Count 221 10^3/cmm (157-399) 06/23/23 15:49 MPV 9.5 fL (7.4-10.4) 06/23/23 15:49 Neut % (Auto) 66.4 % 06/23/23 15:49 Lymph % (Auto) 21.9 % 06/23/23 15:49 [place] % (Auto) 9.4 % 06/23/23 15:49 Eos % (Auto) 1.7 % 06/23/23 15:49 Baso % (Auto) 0.3 % 06/23/23 15:49 Neut # (Auto) 4.67 10^3/uL (1.8-7.7) 06/23/23 15:49 Lymph # (Auto) 1.5 10^3/uL (0.8-4.8) 06/23/23 15:49 [place] # (Auto) 0.7 10^3/uL (0.2-0.9) 06/23/23 15:49 Eos # (Auto) 0.1 10^3/uL (0.0-0.8) 06/23/23 15:49 Baso # (Auto) 0.0 10^3/uL (0.0-0.1) 06/23/23 15:49 Nucleated RBC % (auto) 0 % 06/23/23 15:49 Nucleated RBCs # 0.0 /100WBC 06/23/23 15:49 PT 13.40 SECONDS (12.1-14.9) 06/23/23 15:49 INR 0.99 (0.8-1.2) 06/23/23 15:49 Sodium 135 mmol/L (136-145) L 06/23/23 15:49 Potassium 3.7 mmol/L (3.5-5.1) 06/23/23 15:49 Chloride 95 mmol/L (98-107) L 06/23/23 15:49 Carbon Dioxide 28 mmol/L (22-29) 06/23/23 15:49 Anion Gap 15.7 (5-19) 06/23/23 15:49 BUN 15 mg/dL (8-23) 06/23/23 15:49 Creatinine 0.6 mg/dL (0.5-0.9) 06/23/23 15:49 GFR Calculation Not Reportable 06/23/23 15:49 Glucose 154 mg/dL (65-115) H 06/23/23 15:49 Calculated Osmolality 284 mOsm/kg (285-295) L 06/23/23 15:49 Calcium 10.1 mg/dL (8.5-10.5) 06/23/23 15:49 Total Bilirubin 0.3 mg/dL (0.15-1.2) 06/23/23 15:49 AST 27 U/L (0-32) 06/23/23 15:49 ALT 24 U/L (0-33) 06/23/23 15:49 Alkaline Phosphatase 160 U/L (35-105) H 06/23/23 15:49 Troponin T Baseline 19 ng/L (0-10) H 06/23/23 15:49 NT-Pro-B Natriuret Pep 96 pg/mL (0-450) 06/23/23 15:49 Total Protein 6.9 g/dL (6.6-8.7) 06/23/23 15:49 Albumin 4.0 g/dL (3.5-5.2) 06/23/23 15:49 Globulin 2.9 g/dL (1.3-4.6) 06/23/23 15:49 Lipase 16 U/L (13-60) 06/23/23 15:49 Urine Color Yellow (Yellow) 06/23/23 16:00 Urine Appearance Clear (CLEAR) 06/23/23 16:00 Urine pH 7 (5-7) 06/23/23 16:00 Ur Specific [place] 1.010 (1.005-1.030) 06/23/23 16:00 Urine Protein Neg (Negative) 06/23/23 16:00 Urine Glucose (UA) Norm (Normal) 06/23/23 16:00 Urine Ketones Negative (Negative) 06/23/23 16:00 Urine Blood Neg (Negative) 06/23/23 16:00 Urine Nitrate Negative (Negative) 06/23/23 16:00 Urine Bilirubin Neg (Negative) 06/23/23 16:00 Urine Urobilinogen Norm mg/dL (Negative) 06/23/23 16:00 Ur Leukocyte Esterase 2+ (Negative) H 06/23/23 16:00 Urine RBC 0-4 /hpf (0-2) H 06/23/23 16:00 Urine WBC 5-10 /hpf (0-5) H 06/23/23 16:00 Ur Squamous Epith Cells 0-4 /hpf (0-5) H 06/23/23 16:00 Ur Transition Epith Cell 0-4 /hpf 06/23/23 16:00 Amorphous Sediment Not Reportable 06/23/23 16:00 Urine Bacteria None /hpf (NONE) 06/23/23 16:00 Urine Mucus None /hpf 06/23/23 16:00 All radiology interpretation(s) finalized by discharge Discharge Plan Discharge Patient Disposition: Home Clinical Impression: Atypical chest pain CAD (coronary artery disease) Qualifiers: Coronary Disease-Associated Artery/Lesion type: unspecified vessel or lesion type [place] vs. transplanted heart: [place] heart Associated angina: with stable angina Qualified Code(s): I25.118 - Atherosclerotic heart disease of [place] coronary artery with other forms of angina pectoris Peripheral neuropathy Qualifiers: Peripheral neuropathy type: polyneuropathy, unspecified Qualified Code(s): G 62.9 - Polyneuropathy, unspecified Condition: Stable Prescriptions: No Action dicyclomine 10 mg capsule 10 mg PO QID cholecalciferol (vitamin D3) 1,000 unit capsule 1,000 unit PO QPM cranberry 500 mg capsule 500 mg PO QPM Lactobacillus acidophilus [Acidophilus] Capsule 1 cap PO QAM ferrous sulfate 325 mg (65 mg iron) tablet 325 mg PO DAILY@12 magnesium oxide 400 mg (241.3 mg magnesium) tablet 500 mg PO DAILY@12 nitroglycerin 0.4 mg tablet, sublingual 0.4 mg sublingual Q5M PRN (Reason: chest pain) 30 Days Qty: 30 3RF Rx Instructions: until response; do not exceed 3 doses per episode furosemide 20 mg tablet 60 mg PO QAM potassium chloride 8 mEq capsule, extended release 24 meq PO QAM (DME) FreeStyle Tor 2 Sensor Kit See Rx Instructions .MEDSUPPLY Qty: 3 3RF Rx Instructions: As directed (DME) FreeStyle Tor 2 [place] Misc See Rx Instructions .Route Qty: 1 0RF Rx Instructions: As directed esomeprazole magnesium 40 mg capsule,delayed release(DR/EC) 40 mg PO QAM amlodipine 2.5 mg tablet 2.5 mg PO DAILY 30 Days Qty: 30 5RF (DME) blood sugar diagnostic Strip See Rx Instructions .Route Qty: 400 3RF Rx Instructions: Check blood sugar 4 times a day. (DME) lancets [Comfort EZ Lancets] 21 gauge misc See Rx Instructions .Route Qty: 400 3RF Rx Instructions: As directed [place] Easymax 15 test strips Strip See Rx Instructions .Route Qty: 400 3RF Rx Instructions: Check BS 4 times a day. ([facility] Dexcom G6 Planimeter Operator Misc See Rx Instructions .Route Qty: 1 0RF Rx Instructions: Check BS 4-6 times a day. ([facility] Dexcom G6 Sensor Device See Rx Instructions .Route Qty: 9 3RF Rx Instructions: Change every 10 days. ([facility] Dexcom G6 Transmitter Device See Rx Instructions .Route Qty: 3 3RF Rx Instructions: Change every 90 days (DME) pen needle, diabetic [BD Ultra-Fine Mini Pen Needle] 31 gauge x 3/16 needle See Rx Instructions .ROUTE .COMPLEX Qty: 400 3RF Dose Instruction: USE DIRECTED Rx Instructions: QID clopidogrel 75 mg tablet 75 mg PO QPM Qty: 90 3RF Hold Instructions: Resume on 11/02/22. insulin degludec [Tresiba FlexTouch U-200] 200 unit/mL (3 mL) insulin pen See Rx Instructions .ROUTE .COMPLEX Qty: 18 0RF Dose Instruction: ADMINISTER 36 UNITS UNDER THE SKIN DAILY AT BEDTIME Rx Instructions: ADMINISTER 40 UNITS UNDER THE SKIN DAILY AT BEDTIME insulin lispro [Humalog KwikPen Insulin] 100 unit/mL insulin pen See Rx Instructions .ROUTE .COMPLEX Qty: 30 1RF Dose Instruction: ADMINISTER 22 UNITS UNDER THE SKIN THREE TIMES DAILY. MAX DOSE 66 Rx Instructions: ADMINISTER 24 UNITS UNDER THE SKIN THREE TIMES DAILY. MAX DOSE 66 albuterol sulfate 90 mcg/actuation HFA aerosol inhaler 2 puff INHALATION QID PRN (Reason: Shortness Of Breath) Qty: 8.5 3RF atorvastatin 40 mg tablet 40 mg PO BEDTIME vitamin E 1,000 unit Capsule 1,000 unit PO QAM ascorbic acid (vitamin C) [Vitamin C] 500 mg Tablet,Chewable 500 mg PO QNOON ondansetron 4 mg tablet,disintegrating 4 mg PO Q8H PRN (Reason: nausea and vomiting) Qty: 7 0RF isosorbide mononitrate 120 mg tablet extended release 24 hr 120 mg PO DAILY@12 valsartan 320 mg tablet 320 mg PO QPM aripiprazole 2 mg tablet 2 mg PO BEDTIME Miralax 17 gram/dose Powder 4 g PO DAILY PRN (Reason: Constipation) lactulose 10 gram/15 mL solution 15 ml PO DAILY PRN (Reason: Constipation) hydrocortisone 10 mg tablet 10 mg PO QID metolazone 2.5 mg tablet 2.5 mg PO QAM tramadol 50 mg tablet 50 mg PO TID PRN (Reason: Pain) Rx Instructions: WITH 1000 MG TYLENOL Discharge Orders: Discharge ED (Routine); Ordered 06/23/23 Ordered By: Sawyer Tony Referrals: Arabella Orta MD [Primary Care Provider] - Discharge Diet: Usual diet Discharge Activity: Increase activity as tolerated Patient Instructions: Opioid Safety, Pain Management Activity Restrictions/Additional Instructions: Follow-up with Dr. Zamorano office. Return to ED for new concerns or worsening symptoms. 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
[2023-06-23 16:16] LABS: Basophils % 0.3 %; Eosinophils # 0.1 10^3/uL (0.0-0.8); Eosinophils % 1.7 %; Hematocrit 37.2 % (36-47); Lymphocytes # 1.5 10^3/uL (0.8-4.8); Lymphocytes % 21.9 %; Mean Corpuscular HGB Conc 33.3 g/dL (30-55); Mean Corpuscular Hemoglobin 31.7 pg (27-33); Mean Corpuscular Volume 95.1 fl (85-98); Mean Platelet Volume 9.5 fL (7.4-10.4); Monocytes # 0.7 10^3/uL (0.2-0.9); Monocytes % 9.4 %; Neutrophils # 4.67 10^3/uL (1.8-7.7); Neutrophils % 66.4 %; Nucleated Red Blood Cells % 0 %; Platelet Count 221 10^3/cmm (157-399); Red Blood Count 3.91 10^6/uL (3.85-5.65); Red Cell Distribution Width 12.8 % (12.1-15.1); White Blood Count 7.03 10^3/uL (3.29-11.43)
[2023-06-23 16:31] LABS: INR 0.99 (0.8-1.2)
[2023-06-23] MEDS: acetaminophen 1,000 MG/100 ML PIGGYBACK 400 MG IV (16:47)
[2023-06-23 16:48] LABS: Troponin(5th) Baseline 19 ng/L (0-10)
[2023-06-23 16:49] LABS: Urine Appearance Clear (CLEAR); Urine Color Yellow (Yellow)
[2023-06-23 16:50] LABS: Add Urine Microscopic? YES; Bilirubin Urine Neg (Negative); Blood Urine Neg (Negative); Glucose Urine UA Norm (Normal); Ketones Urine Negative (Negative); Leukocyte Esterase Urine 2+ (Negative); Nitrate Urine Negative (Negative); Protein Urine Neg (Negative); Urobilinogen Urine Norm (Negative); pH Urine 7 (5-7)
[2023-06-23 17:04] LABS: RBC Urine 0-4 /hpf (0-2)
[2023-06-23 17:05] LABS: Add Urine Culture? No; Squamous Epithelial Cell Urine 0-4 /hpf (0-5); Transitional Epi Cells Urine 0-4 /hpf
[2023-06-23 17:05] LABS: Alanine Aminotransferase 24 U/L (0-33); Alkaline Phosphatase 160 U/L (35-105); Anion Gap 15.7 (5-19); Aspartate Amino Transferase 27 U/L (0-32); Blood Urea Nitrogen 15 mg/dL (8-23); Calcium 10.1 mg/dL (8.5-10.5); Carbon Dioxide 28 mmol/L (22-29); Chloride 95 mmol/L (98-107); Creatinine Clr Calc Pharmacy 65.6235; Globulin 2.9 g/dL (1.3-4.6); Glucose 154 mg/dL (65-115); Lipase 16 U/L (13-60); NT Pro B Type Natriuretic Pept 96 pg/mL (0-450); Osmolality Calculated 284 mOsm/kg (285-295); Potassium 3.7 mmol/L (3.5-5.1); Sodium 135 mmol/L (136-145); Total Bilirubin 0.3 mg/dL (0.15-1.2); Total Protein 6.9 g/dL (6.6-8.7)
[2023-06-23] MEDS: TRAMadol 50 mg Tablet PO (18:01)
== END 2023-06-23 18:16 | disposition home or self-care (01) ==
PROVIDERS: Emergency Medicine; Emergency Provider Nurse Practitioner Family; PCP Family Medicine
DX: R07.9 Chest pain, unspecified (principal); I25.118 Atherosclerotic heart disease of native coronary artery with other forms of angina pectoris; G62.9 Polyneuropathy, unspecified; Z79.02 Long term (current) use of antithrombotics/antiplatelets; Z79.4 Long term (current) use of insulin; E78.5 Hyperlipidemia, unspecified; I10 Essential (primary) hypertension
CPT/HCPCS: 36415; 71045; 80053; 81001; 83690; 83880; 84484; 85025; 85610; 93005; 96365; 99285; J0131

== ENCOUNTER 2023-06-24 21:58 | Emergency (ER) | payer MEDICARE, OTHER, SELFPAY ==
[2023-06-24 21:59] VITALS: BP 159/56; PULSE 88; RESP 20; O2SAT 96; BMI 36.6
--- NOTE | 2023-06-24 22:01 | ECG_ITS ---
[facility] Test Date: 2023-06-24 Pat Name: Brandi Berg Department: Room: Gender: Female [employer]ch: : 1945 Requested By: Cristobal Monroe Order Number: [id number] Gamal MD: Jose Sumner M.D. Measurements Intervals [place] Rate: 86 P: 31 AR: 164 QRS: -25 QRSD: 110 T: 66 QT: 335 QTc: 401 Interpretive Statements SINUS RHYTHM BORDERLINE LEFT AXIS DEVIATION [QRS AXIS < -20] NONSPECIFIC T-WAVE ABNORMALITY Compared to ECG 06/23/2023 15:30:26 T-wave abnormality now present Left ventricular hypertrophy no longer present ST (T wave) deviation no longer present Electronically Signed On 06-26-2023 23:18:02 PLASTICS PATTERNMAKER by Jose Sumner M.D. [id number]
[2023-06-24 22:05] LABS: Basophils % 0.2 %; Eosinophils # 0.2 10^3/uL (0.0-0.8); Eosinophils % 3.2 %; Hematocrit 34.2 % (36-47); Lymphocytes # 2.1 10^3/uL (0.8-4.8); Mean Corpuscular HGB Conc 33.9 g/dL (30-55); Mean Corpuscular Hemoglobin 31.5 pg (27-33); Mean Corpuscular Volume 92.9 fl (85-98); Mean Platelet Volume 9.8 fL (7.4-10.4); Monocytes # 0.6 10^3/uL (0.2-0.9); Monocytes % 10.4 %; Neutrophils % 51.9 %; Nucleated Red Blood Cells % 0 %; Platelet Count 217 10^3/cmm (157-399); Red Blood Count 3.68 10^6/uL (3.85-5.65); Red Cell Distribution Width 12.8 % (12.1-15.1); White Blood Count 6.17 10^3/uL (3.29-11.43)
[2023-06-24 22:21] VITALS: BP 159/56; PULSE 85; RESP 23; O2SAT 95
[2023-06-24 22:26] LABS: Troponin(5th) Baseline 17 ng/L (0-10)
[2023-06-24 22:28] LABS: Alanine Aminotransferase 21 U/L (0-33); Albumin Level 3.9 g/dL (3.5-5.2); Alkaline Phosphatase 169 U/L (35-105); Anion Gap 15.2 (5-19); Aspartate Amino Transferase 21 U/L (0-32); Blood Urea Nitrogen 15 mg/dL (8-23); Calcium 10.3 mg/dL (8.5-10.5); Carbon Dioxide 28 mmol/L (22-29); Chloride 93 mmol/L (98-107); Creatinine Clr Calc Pharmacy 65.6235; Globulin 3.2 g/dL (1.3-4.6); Glucose 229 mg/dL (65-115); Osmolality Calculated 282 mOsm/kg (285-295); Potassium 4.2 mmol/L (3.5-5.1); Sodium 132 mmol/L (136-145); Total Bilirubin 0.2 mg/dL (0.15-1.2); Total Protein 7.1 g/dL (6.6-8.7)
--- NOTE | 2023-06-24 22:30 | ED_ITS ---
HPI - Chest Pain 2 General: Chief Complaint: Chest Pain Stated Complaint: chest pain Time Seen by Provider: 06/24/23 22:00 History of Present Illness: Patient presents to the ER with complaints of chest pain in the center of her chest that radiates to her back. She says these pain started about an hour ago when she was cooking. Patient denies any shortness of breath nausea vomiting diaphoresis. Patient was seen here yesterday for similar complaints today she says the pain is worse. Patient does see Dr. Cai and is already set up for a cardiac stress test. 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 Left axis deviation. Normal FL and QRS duration. Dyslipidemia (high LDL; low HDL) Benign essential hypertension with target blood pressure below 140/90 Atherosclerotic heart disease of [place] coronary artery without angina pectoris Status post left heart catheterization Recurrent UTI Gross hematuria Bipolar II disorder Surgical History Hx of bilateral hip replacements Hx of bladder repair surgery History of colonoscopy (~2018) History of coronary artery stent placement History of right knee surgery S/P appendectomy S/P hysterectomy S/P hernia repair S/P hip replacement Family History Family/Other Diabetes Other Cancer Social History Smoking and tobacco/nicotine status: never used tobacco/nicotine Alcohol intake: never Substance/Drug Use: never Household members: spouse Marital status: Current occupational status: retired Physical Exam 2 Const: COMMON NORMALS: no acute distress, average body habitus, patient oriented x3, no limitations, healthy appearing, alert and well nourished HENMT: COMMON NORMALS: normocephalic, atraumatic, hearing grossly normal bilaterally, external ears normal, Normal external nose present, moist oral mucous membranes and oropharynx normal HEAD & SCALP: normocephalic and atraumatic NOSE: Normal external nose present EXTERNAL EAR: Yes external ears normal Neck/C-Spine: COMMON NORMALS: full ROM, no lymphadenopathy, supple, no meningeal signs, no JVD and Thyroid normal THYROID: Thyroid normal Chest: COMMONS NORMALS: normal inspection of the chest; negative for normal palpation of entire chest wall (Tenderness with palpation of the chest, reproduces pain) Resp: COMMON NORMALS: normal respiratory effort, No retractions, No use of accessory muscles and clear to auscultation bilaterally AUSCULTATION: clear to auscultation bilaterally Cardio: COMMON NORMALS: no JVD, regular rate, regular rhythm, S1 normal heart sound present, S2 normal heart sound present, No gallops present (Cardio), No clicks present (Cardio), No murmurs present (Cardio) and No rub (Cardio) R ATE: regular rate RHYTHM: regular rhythm HEART SOUNDS: S1 normal heart sound present and S2 normal heart sound present GI: COMMON NORMALS: Normal to inspection, nondistended, normoactive bowel sounds present, Soft to palpation, non-tender, No hepatosplenomegaly present and no masses PALPATION: Yes Soft to palpation and Yes No hepatosplenomegaly present Neuro: COMMON NORMALS: patient oriented x3 SENSORIUM/ORIENTATION: Yes alert MENINGEAL SIGNS: Yes no meningeal signs Course 2 Vital Signs: Vital signs: Vital Signs Pulse Rate 75 06/25/23 00:22 Respiratory Rate 16 06/25/23 00:22 Blood Pressure 141/58 06/25/23 00:22 Pulse Oximetry 94 06/25/23 00:22 Oxygen Delivery Me thod Room Air 06/24/23 22:21 MDM - Chest Pain Medical Decision Making Patient presents to the ER with complaining of chest pain. Patient was worked up in a typical chest pain fashion with serial EKGs, serial enzymes, chest x-ray was not performed as one was performed yesterday. Patient baseline troponin is 17 and a 2-hour troponin is 19 for delta of 2. EKGs showed sinus rhythm with nonspecific changes. Patient is thought to have noncardiac chest pain. Patient's is already in the process of seeing Dr. Cai and have a cardiac stress test. Patient be discharged from the ER. Differential Diagnosis Unlikely acute massive pulmonary embolism, acute respiratory failure, acute myocardial infarction, cardiac arrest or sudden cardiac Medical Records I reviewed the patient's medical records. Lab Data I reviewed the patient's lab results. 06/24/23 21:59 06/24/23 21:59 Laboratory Results WBC 6.17 10^3/uL (3.29-11.43) 06/24/23 21:59 RBC 3.68 10^6/uL (3.85-5.65) L 06/24/23 21:59 Hgb 11.60 g/dL (11.27-16.99) 06/24/23 21:59 Hct 34.2 % (36-47) L 06/24/23 21:59 MCV 92.9 fl (85-98) 06/24/23 21:59 MCH 31.5 pg (27-33) 06/24/23 21:59 MCHC 33.9 g/dL (30-55) 06/24/23 21:59 RDW 12.8 % (12.1-15.1) 06/24/23 21:59 Plt Count 217 10^3/cmm (157-399) 06/24/23 21:59 MPV 9.8 fL (7.4-10.4) 06/24/23 21:59 Neut % (Auto) 51.9 % 06/24/23 21:59 Lymph % (Auto) 34.0 % 06/24/23 21:59 [place] % (Auto) 10.4 % 06/24/23 21:59 Eos % (Auto) 3.2 % 06/24/23 21:59 Baso % (Auto) 0.2 % 06/24/23 21:59 Neut # (Auto) 3.20 10^3/uL (1.8-7.7) 06/24/23 21:59 Lymph # (Auto) 2.1 10^3/uL (0.8-4.8) 06/24/23 21:59 [place] # (Auto) 0.6 10^3/uL (0.2-0.9) 06/24/23 21:59 Eos # (Auto) 0.2 10^3/uL (0.0-0.8) 06/24/23 21:59 Baso # (Auto) 0.0 10^3/uL (0.0-0.1) 06/24/23 21:59 Nucleated RBC % (auto) 0 % 06/24/23 21:59 Nucleated RBCs # 0.0 /100WBC 06/24/23 21:59 Sodium 132 mmol/L (136-145) L 06/24/23 21:59 Potassium 4.2 mmol/L (3.5-5.1) 06/24/23 21:59 Chloride 93 mmol/L (98-107) L 06/24/23 21:59 Carbon Dioxide 28 mmol/L (22-29) 06/24/23 21:59 Anion Gap 15.2 (5-19) 06/24/23 21:59 BUN 15 mg/dL (8-23) 06/24/23 21:59 Creatinine 0.7 mg/dL (0.5-0.9) 06/24/23 21:59 GFR Calculation Not Reportable 06/24/23 21:59 Glucose 229 mg/dL (65-115) H 06/24/23 21:59 POC Glucose 230 mg/dL (70-110) H 06/25/23 00:37 Calculated Osmolality 282 mOsm/kg (285-295) L 06/24/23 21:59 Calcium 10.3 mg/dL (8.5-10.5) 06/24/23 21:59 Total Bilirubin 0.2 mg/dL (0.15-1.2) 06/24/23 21:59 AST 21 U/L (0-32) 06/24/23 21:59 ALT 21 U/L (0-33) 06/24/23 21:59 Alkaline Phosphatase 169 U/L (35-105) H 06/24/23 21:59 Troponin T Baseline 17 ng/L (0-10) H 06/24/23 21:59 Troponin T 120 Minute 19.91 ng/L (0-10) H 06/25/23 00:11 Delta Troponin T 2.91 ABS# (0-10) 06/25/23 00:11 Total Protein 7.1 g/dL (6.6-8.7) 06/24/23 21:59 Albumin 3.9 g/dL (3.5-5.2) 06/24/23 21:59 Globulin 3.2 g/dL (1.3-4.6) 06/24/23 21:59 No radiology studies performed this visit EKG Data EKG 1: I personally reviewed and interpreted this EKG as follows: EKG interpretation date: 06/24/23 EKG interpretation time: 22:01 Prior EKG tracings: available for review Interpretation: EKG showed ventricular rate 86 bpm, FL interval 164, QRS duration 110, QTc 378, sinus rhythm, borderline left axis deviation, nonspecific T wave abnormality Discharge Plan Discharge Patient Disposition: Home Clinical Impression: Atypical chest pain Condition: Stable Prescriptions: No Action dicyclomine 10 mg capsule 10 mg PO QID cholecalciferol (vitamin D3) 1,000 unit capsule 1,000 unit PO QPM cranberry 500 mg capsule 500 mg PO QPM Lactobacillus acidophilus [Acidophilus] Capsule 1 cap PO QAM ferrous sulfate 325 mg (65 mg iron) tablet 325 mg PO DAILY@12 magnesium oxide 400 mg (241.3 mg magnesium) tablet 500 mg PO DAILY@12 nitroglycerin 0.4 mg tablet, sublingual 0.4 mg sublingual Q5M PRN (Reason: chest pain) 30 Days Qty: 30 3RF Rx Instructions: until response; do not exceed 3 doses per episode furosemide 20 mg tablet 60 mg PO QAM potassium chloride 8 mEq capsule, extended release 24 meq PO QAM (DME) FreeStyle Tor 2 Sensor Kit See Rx Instructions .MEDSUPPLY Qty: 3 3RF Rx Instructions: As directed (DME) FreeStyle Tor 2 [place] Misc See Rx Instructions .Route Qty: 1 0RF Rx Instructions: As directed esomeprazole magnesium 40 mg capsule,delayed release(DR/EC) 40 mg PO QAM amlodipine 2.5 mg tablet 2.5 mg PO DAILY 30 Days Qty: 30 5RF (DME) blood sugar diagnostic Strip See Rx Instructions .Route Qty: 400 3RF Rx Instructions: Check blood sugar 4 times a day. (DME) lancets [Comfort EZ Lancets] 21 gauge misc See Rx Instructions .Route Qty: 400 3RF Rx Instructions: As directed (DME) Easymax 15 test strips Strip See Rx Instructions .Route Qty: 400 3RF Rx Instructions: Check BS 4 times a day. (DME) Dexcom G6 [place] Spreader Misc See Rx Instructions .Route Qty: 1 0RF Rx Instructions: Check BS 4-6 times a day. (DME) Dexcom G6 Sensor Device See Rx Instructions .Route Qty: 9 3RF Rx Instructions: Change every 10 days. (DME) Dexcom G6 Transmitter Device See Rx Instructions .Route Qty: 3 3RF Rx Instructions: Change every 90 days (DME) pen needle, diabetic [BD Ultra-Fine Mini Pen Needle] 31 gauge x 3/16 needle See Rx Instructions .ROUTE .COMPLEX Qty: 400 3RF Dose Instruction: USE DIRECTED Rx Instructions: QID clopidogrel 75 mg tablet 75 mg PO QPM Qty: 90 3RF Hold Instructions: Resume on 11/02/22. insulin degludec [Tresiba FlexTouch U-200] 200 unit/mL (3 mL) insulin pen See Rx Instructions .ROUTE .COMPLEX Qty: 18 0RF Dose Instruction: ADMINISTER 36 UNITS UNDER THE SKIN DAILY AT BEDTIME Rx Instructions: ADMINISTER 40 UNITS UNDER THE SKIN DAILY AT BEDTIME insulin lispro [Humalog KwikPen Insulin] 100 unit/mL insulin pen See Rx Instructions .ROUTE .COMPLEX Qty: 30 1RF Dose Instruction: ADMINISTER 22 UNITS UNDER THE SKIN THREE TIMES DAILY. MAX DOSE 66 Rx Instructions: ADMINISTER 24 UNITS UNDER THE SKIN THREE TIMES DAILY. MAX DOSE 66 albuterol sulfate 90 mcg/actuation HFA aerosol inhaler 2 puff INHALATION QID PRN (Reason: Shortness Of Breath) Qty: 8.5 3RF atorvastatin 40 mg tablet 40 mg PO BEDTIME vitamin E 1,000 unit Capsule 1,000 unit PO QAM ascorbic acid (vitamin C) [Vitamin C] 500 mg Tablet,Chewable 500 mg PO QNOON ondansetron 4 mg tablet,disintegrating 4 mg PO Q8H PRN (Reason: nausea and vomiting) Qty: 7 0RF isosorbide mononitrate 120 mg tablet extended release 24 hr 120 mg PO DAILY@12 valsartan 320 mg tablet 320 mg PO QPM aripiprazole 2 mg tablet 2 mg PO BEDTIME Miralax 17 gram/dose Powder 4 g PO DAILY PRN (Reason: Constipation) lactulose 10 gram/15 mL solution 15 ml PO DAILY PRN (Reason: Constipation) hydrocortisone 10 mg tablet 10 mg PO QID metolazone 2.5 mg tablet 2.5 mg PO QAM tramadol 50 mg tablet 50 mg PO TID PRN (Reason: Pain) Rx Instructions: WITH 1000 MG TYLENOL Discharge Orders: Discharge ED (Routine); Ordered 06/25/23 Ordered By: Cristobal Monroe Referrals: Arabella Orta MD [Primary Care Provider] - 1 week Patient Instructions: Chest Pain (ED) Activity Restrictions/Additional Instructions: Activity restrictions/additional instructions: [facility]. Please realize that you were seen in the emergency department and that we are providing you with an emergency medical screening exam and this may not be a complete and all exclusive of all testing and/or medical workup we may need to determine your element or severity of your illness. It is very important that you follow-up as instructed with your primary care provider or specialist for the additional evaluation and to discuss your medical treatment plan. You may return to the emergency department should you have concerns or if your condition changes or worsens in any way. 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
[2023-06-24 22:52] VITALS: BP 112/63; PULSE 88; RESP 19; O2SAT 95
--- NOTE | 2023-06-25 | ECG_ITS ---
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 Measurements Intervals [place] Rate: 72 P: 10 VT: 168 QRS: -8 QRSD: 105 T: 59 QT: 360 QTc: 396 Interpretive Statements SINUS RHYTHM NONSPECIFIC T-WAVE ABNORMALITY Compared to ECG 06/24/2023 22:01:37 No significant changes Electronically Signed On 06-26-2023 23:28:47 SEED SALES MANAGER by Jose Sunmer M.D. [email or web address] AmericaPlug Appsregency hospital cle[facility] [email or web address]/[id number]
[2023-06-25] MEDS: TRAMadol 50 mg Tablet PO (00:06)
[2023-06-25 00:22] VITALS: BP 141/58; PULSE 75; RESP 16; O2SAT 94
[2023-06-25 00:33] LABS: Troponin 5 2HR 19.91 ng/L (0-10); Troponin 5 2HR Delta 2.91 ABS# (0-10)
[2023-06-25 00:41] LABS: Glucose Point of Care 230 mg/dL (70-110)
[2023-06-25 01:11] VITALS: BP 157/59; PULSE 84; RESP 18; O2SAT 97
== END 2023-06-25 01:13 | disposition home or self-care (01) ==
PROVIDERS: Emergency Provider Emergency Medicine; PCP Family Medicine
DX: R07.89 Other chest pain (principal); Z79.02 Long term (current) use of antithrombotics/antiplatelets; Z79.4 Long term (current) use of insulin; E78.5 Hyperlipidemia, unspecified; I10 Essential (primary) hypertension; I25.10 Atherosclerotic heart disease of native coronary artery without angina pectoris
CPT/HCPCS: 36415; 36416; 80053; 82962; 84484; 85025; 93005; 99284

== ENCOUNTER 2023-06-28 16:21 | Outpatient (CLI) | payer MEDICARE, OTHER, SELFPAY ==
[2023-06-28 17:10] LABS: Add Urine Microscopic? YES; Bacteria Urine TRACE /hpf; Bilirubin Urine Neg (Negative); Blood Urine 2+ (Negative); Glucose Urine UA 2+ (Normal); Ketones Urine Negative (Negative); Leukocyte Esterase Urine 2+ (Negative); Nitrate Urine Negative (Negative); Protein Urine Neg (Negative); RBC Urine 0-4 /hpf (0-2); Specific Gravity, Urine 1.005 (1.005-1.030); Squamous Epithelial Cell Urine 0-4 /hpf (0-5); Urine Appearance SL Hazy (CLEAR); Urine Color Light yellow (Yellow); Urobilinogen Urine Norm (Negative); WBC Urine 15-25 /hpf (0-5); pH Urine 7 (5-7)
[2023-06-28 17:11] LABS: Add Urine Culture? Yes
== END 2023-06-28 16:22 | disposition home or self-care (01) ==
LOC: LAB 16:22
PROVIDERS: PCP Family Medicine; Visit Provider Family Medicine
DX: Z01.89 Encounter for other specified special examinations (principal)
CPT/HCPCS: 81001; 87077; 87086; 87186

== ENCOUNTER 2023-06-29 15:21 | Outpatient (CLI) | payer MEDICARE, OTHER, SELFPAY ==
--- NOTE | 2023-06-29 15:24 | USCV_ITS ---
Brandi Berg Age: 78 Gender: F : 1945 Exam Date: 06/29/2023 15:38 Ordering Phys: Arabella Orta MD Technologist: CT [place] [facility] [place] [facility] [place]: rt leg pain PROCEDURES: Venous duplex imaging was performed in only the right lower extremity. In addition, the posterior tibial and peroneal trunk were evaluated. On the right side, the common femoral, superficial femoral, profunda femoral, popliteal, posterior tibial, greater saphenous veins and the peroneal trunk were identified and interrogated in the standard fashion. These veins were found to be easily compressible with spontaneous blood flow. No evidence of insufficiency or thrombus noted. FINDINGS: no dvt CONCLUSIONS No evidence of right lower extremity DVT. Rico Garcia MD (Electronically Signed) Final Date: 30 June 2023 09:43 S
[2023-06-29 18:37] LABS: Alanine Aminotransferase 23 U/L (0-33); Albumin Level 3.9 g/dL (3.5-5.2); Alkaline Phosphatase 167 U/L (35-105); Anion Gap 13.9 (5-19); Aspartate Amino Transferase 21 U/L (0-32); Blood Urea Nitrogen 14 mg/dL (8-23); Carbon Dioxide 30 mmol/L (22-29); Chloride 95 mmol/L (98-107); Chol HDL Ratio 2.84 mg/dL (0.0-4.40); Cholesterol 142 mg/dL (0-200); Globulin 3.4 g/dL (1.3-4.6); Glucose 138 mg/dL (65-115); HDL Cholesterol 50 mg/dL (60-100); LDL Cholesterol Calculated 63 mg/dL (50-129); LDL HDL Ratio 1.26 RATIO (0.00-3.22); Osmolality Calculated 283 mOsm/kg (285-295); Potassium 3.9 mmol/L (3.5-5.1); Sodium 135 mmol/L (136-145); Total Bilirubin 0.2 mg/dL (0.15-1.2); Total Protein 7.3 g/dL (6.6-8.7); Triglycerides 146 mg/dL (0-150)
[2023-06-29 18:40] LABS: Creatinine Urine, Random 55 mg/dL (28-217); Microalbum Creatinine Ratio Ur 18 mg/dL (0-20); Microalbumin Random Urine 1 ug/dL (0-20)
[2023-06-29 20:48] LABS: Estmated Average Glucose 192; Hemoglobin A1C 8.3 % (4.0-6.0)
== END 2023-06-29 15:22 | disposition home or self-care (01) ==
LOC: RAD 15:21
PROVIDERS: Internal Medicine; PCP Family Medicine; Visit Provider Family Medicine
DX: I73.9 Peripheral vascular disease, unspecified (principal); L60.3 Nail dystrophy; L84 Corns and callosities; R60.0 Localized edema; E11.65 Type 2 diabetes mellitus with hyperglycemia; E78.5 Hyperlipidemia, unspecified; I25.10 Atherosclerotic heart disease of native coronary artery without angina pectoris; E16.2 Hypoglycemia, unspecified; E11.42 Type 2 diabetes mellitus with diabetic polyneuropathy; Z79.4 Long term (current) use of insulin
CPT/HCPCS: 11056; 11721; 36415; 80053; 80061; 82044; 83036; 93971

== ENCOUNTER → 2023-07-06 10:25 | Outpatient (BNVA) | payer MEDICARE, OTHER, SELFPAY | PROVIDERS: PCP Family Medicine; Visit Provider Internal Medicine | DX: E11.65 Type 2 diabetes mellitus with hyperglycemia; E11.649 Type 2 diabetes mellitus with hypoglycemia without coma; E78.5 Hyperlipidemia, unspecified; I25.10 Atherosclerotic heart disease of native coronary artery without angina pectoris; E27.40 Unspecified adrenocortical insufficiency; Z79.4 Long term (current) use of insulin | CPT/HCPCS: 99214 ==

== ENCOUNTER 2023-07-09 07:41 | Outpatient (CLI) | payer MEDICARE, OTHER, SELFPAY ==
[2023-07-09 07:48] VITALS: BMI 36.2
--- NOTE | 2023-07-09 08:04 | NMCV_ITS ---
NM bryon perf SPECT r/s* [id number] Brandi Berg Age: 78 Gender: F : 1945 Exam Date: 07/09/2023 08:14 Ordering Phys: Roseline Palomares Technologist: VIDHI Stone Exam Location: [facility] Indications: ATHEROSCLEROTIC HEART DISEASE STRESS TEST Please see separate stress test report in [facility] for full findings IMAGE PROTOCOL Rest/Stress 1 Lexiscan Day Radiopharmaceutical Dose (mCi) Administration Site Administered by Rest: Tc-99m 10.9 IV VIDHI Sandra Sestamibi Stress:Tc-99m 32.5 IV VIDHI Sandra Sestamibi Rest: 09-Jul-2023 60 Discovery 630 Stress: 09-Jul-2023 30 Discovery 630 0.4mg Lexiscan. Supine position only as patient was unable to lay prone. SPECT RESULTS Technical Quality: Excellent Raw Data Analysis: Normal Image Corrections: No attenuation or motion correction applied Summed Stress Score: 2 Summed Rest Score: 0 Summed Difference Score: 2 PERFUSION FINDINGS There is a small sized area of fixed perfusion defect in the inferolateral wall. This is consistent with small area of prior infarct in the left circumflex artery territory. FUNCTIONAL RESULTS (calculated via Gated SPECT) Stress Image LV EF (%): 73 Stress EDV (mL):83 TID: 1.09 Stress ESV (mL):22 FUNCTIONAL FINDINGS: There is normal left ventricular systolic function. IMPRESSIONS 1. 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 2. LV systolic function is normal Jose Sumner MD (Electronically Signed) Final Date: 09 July 2023 14:10 S
--- NOTE | 2023-07-09 08:04 | ECG_ITS ---
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 Interpretive Statements NAME OF STUDY: LEXISCAN SESTAMIBI STRESS TEST INDICATION: [Chest Pain; CAD] Procedure: At the baseline, the blood pressure was 125/60 mmHg with a heart rate of 83 bpm. The electrocardiogram showed normal sinus rhythm, normal axis with normal ST and T's. The Lexiscan was infused over a period of 20 seconds. A total of 0.4 mg of Lexiscan was infused. The stress phase was continued for a total of 5 minutes. Heart rate was at the end of stress phase was 93 bpm and a blood pressure of 162/58 mmHg. The EKG at the peak infusion revealed normal sinus rhythm with no significant ST-T wave changes. Sestamibi was injected 20 seconds after the Lexiscan infusion. Blood pressure at the end of recovery phase was 161/58 mmHg with a heart rate of 87 bpm. Conclusion: 1. Normal EKG response to Lexiscan infusion 2. No Lexiscan induced chest pain or cardiac arrhythmia. 3. Normal blood pressure and heart rate response. 4. Sestamibi/sestamibi perfusion scan pending; see separate report. Electronically Signed On 07-16-2023 12:21:15 ACQUISITION PROFESSIONAL by Jose Sumner M.D. [id number]
[2023-07-09] MEDS: regadenoson 0.4 Mg/5 ml Syringe 0.400000000000000022 MG IVP (09:03)
[2023-07-09 09:26] VITALS: BP 161/58; PULSE 90
== END 2023-07-09 07:42 | disposition home or self-care (01) ==
LOC: CDL 07:42
PROVIDERS: PCP Family Medicine; Visit Provider Nurse Practitioner Family
DX: I25.10 Atherosclerotic heart disease of native coronary artery without angina pectoris (principal); I25.2 Old myocardial infarction
CPT/HCPCS: 36415; 78452; 93017; 96374; A9500; J2785

== ENCOUNTER → 2023-07-26 14:58 | Outpatient (BNVA) | payer MEDICARE, OTHER, SELFPAY | PROVIDERS: PCP Family Medicine; Visit Provider Thoracic Surgery (Cardiothoracic Vascular Surgery) | DX: R60.0 Localized edema (principal) | CPT/HCPCS: 99203 ==

== ENCOUNTER 2023-08-01 00:11 | Emergency (ER) | payer MEDICARE, OTHER, SELFPAY ==
--- NOTE | 2023-08-01 00:12 | XRR_ITS ---
PROCEDURE INFORMATION: Exam: XR Chest Exam date and time: 08/01/2023 12:21 AM Age: 78 years old Clinical indication: Chest pressure; Patient HX: C/O chest pain; Additional info: Cp TECHNIQUE: Imaging protocol: Radiologic exam of the chest. Views: 1 view. COMPARISON: CR XR chest 1V portable [id number] 06/23/2023 3:35 PM FINDINGS: Lungs: No consolidation. Pleural spaces: No large pleural effusion. No pneumothorax. Heart/Mediastinum: Unremarkable. No cardiomegaly. Bones/joints: No acute abnormality. XR/XR chest 1V portable [id number] IMPRESSION: No acute findings.
--- NOTE | 2023-08-01 00:12 | ECG_ITS ---
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 Measurements Intervals [place] Rate: 92 P: 40 SC: 164 QRS: -29 QRSD: 97 T: 78 QT: 342 QTc: 423 Interpretive Statements SINUS RHYTHM BORDERLINE LEFT AXIS DEVIATION [QRS AXIS < -20] INCOMPLETE RIGHT BUNDLE BRANCH BLOCK [90+ ms QRS DURATION, TERMINAL R IN V1/V2, 40+ ms S IN I/aVL/V4/V5/V6] MINIMAL VOLTAGE CRITERIA FOR LVH, CONSIDER NORMAL VARIANT [MEETS CRITERIA IN ONE OF: R(aVL), S(V1), R(V5), R(V5/V6)+S(V1)] NONSPECIFIC T-WAVE ABNORMALITY Compared to ECG 06/25/2023 00:32:31 Incomplete right bundle-branch block now present T-wave abnormality still present Electronically Signed On 08-01-2023 10:24:30 CDT by Jimbo Lopez M.D. [email or web address] [facility] [email or web address] Wraps/store/NU/[id number]
--- NOTE | 2023-08-01 00:21 | ED_ITS ---
HPI - Chest Pain 2 General: Chief Complaint: Chest Pain Stated Complaint: CP Time Seen by Provider: 08/01/23 00:12 Source: patient Mode of arrival: ambulatory Limitations: no limitations History of Present Illness: 78-year-old female who is very well-know n to the ER states she started having chest pain tonight roughly 3 hours ago states she was working in her kitchen start having some sharp pains in the center of her chest she rates the pain a 4 out of 10 currently she denies any worsening proving factors she denies any shortness of breath denies any nausea or vomiting. 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 Left axis deviation. Normal AK and QRS duration. Dyslipidemia (high LDL; low HDL) Benign essential hypertension with target blood pressure below 140/90 Atherosclerotic heart disease of [place] coronary artery without angina pectoris Status post left heart catheterization Recurrent UTI Gross hematuria Bipolar II disorder Surgical History Hx of bilateral hip replacements Hx of bladder repair surgery History of colonoscopy (~2018) History of coronary artery stent placement History of right knee surgery S/P appendectomy S/P hysterectomy S/P hernia repair S/P hip replacement Family History Family/Other Diabetes Other Cancer Social History Smoking and tobacco/nicotine status: never used tobacco/nicotine Alcohol intake: never Substance/Drug Use: never Household members: spouse Marital status: Current occupational status: retired Physical Exam 2 Const: COMMON NORMALS: no acute distress, patient oriented x3 and healthy appearing HENMT: COMMON NORMALS: normocephalic and atraumatic HEAD & SCALP: n ormocephalic and atraumatic Neck/C-Spine: COMMON NORMALS: full ROM and supple Chest: COMMONS NORMALS: normal inspection of the chest Resp: COMMON NORMALS: normal respiratory effort, No retractions, No use of accessory muscles and clear to auscultation bilaterally AUSCULTATION: clear to auscultation bilaterally Cardio: COMMON NORMALS: regular rate, regular rhythm and No murmurs present (Cardio) RATE: regular rate RHYTHM: regular rhythm GI: COMMON NORMALS: Normal to inspection, nondistended, normoactive bowel sounds present, Soft to palpation, non-tender and no masses PALPATION: Yes Soft to palpation Extremity: COMMON NORMALS: normal to inspection and full ROM Neuro: COMMON NORMALS: patient oriented x3, moves all extremities and no focal motor deficits Psych: COMMON NORMALS: mental status grossly normal, Normal thought process present and cooperative THOUGHT PROCESS: Normal thought process present Skin: COMMON NORMALS: no rashes or lesions noted and no wounds GENERAL SKIN EXAM: no rashes or lesions noted Course 2 Vital Signs: Vital signs: Vital Signs Temperature 98 F 08/01/23 00:22 Pulse Rate 84 08/01/23 03:00 Respiratory Rate 18 08/01/23 01:16 Blood Pressure 173/68 08/01/23 01:16 Pulse Oximetry 95 08/01/23 03:00 Oxygen Delivery Me thod Room Air 08/01/23 03:00 MDM - Chest Pain Medical Decision Making Patient presents for chest pains atypical in nature troponins here are negative patient stable for discharge she is follow-up PCP return if worsening. Medical Records I reviewed the patient's medical records. Lab Data I reviewed the patient's lab results. 08/01/23 00:00 08/01/23 01:11 Radiology Impressions Chest X-Ray 08/01/23 00:12 IMPRESSION: No acute findings. Laboratory Results WBC 7.17 10^3/uL (3.29-11.43) 08/01/23 00:00 RBC 3.76 10^6/uL (3.85-5.65) L 08/01/23 00:00 Hgb 11.60 g/dL (11.27-16.99) 08/01/23 00:00 Hct 35.5 % (36-47) L 08/01/23 00:00 MCV 94.4 fl (85-98) 08/01/23 00:00 MCH 30.9 pg (27-33) 08/01/23 00:00 MCHC 32.7 g/dL (30-55) 08/01/23 00:00 RDW 12.6 % (12.1-15.1) 08/01/23 00:00 Plt Count 210 10^3/cmm (157-399) 08/01/23 00:00 MPV 10.4 fL (7.4-10.4) 08/01/23 00:00 Neut % (Auto) 58.6 % 08/01/23 00:00 Lymph % (Auto) 28.5 % 08/01/23 00:00 [place] % (Auto) 10.5 % 08/01/23 00:00 Eos % (Auto) 1.7 % 08/01/23 00:00 Baso % (Auto) 0.4 % 08/01/23 00:00 Neut # (Auto) 4.21 10^3/uL (1.8-7.7) 08/01/23 00:00 Lymph # (Auto) 2.0 10^3/uL (0.8-4.8) 08/01/23 00:00 [place] # (Auto) 0.8 10^3/uL (0.2-0.9) 08/01/23 00:00 Eos # (Auto) 0.1 10^3/uL (0.0-0.8) 08/01/23 00:00 Baso # (Auto) 0.0 10^3/uL (0.0-0.1) 08/01/23 00:00 Nucleated RBC % (auto) 0 % 08/01/23 00:00 Nucleated RBCs # 0.0 /100WBC 08/01/23 00:00 PT 13.40 SECONDS (12.1-14.9) 08/01/23 00:00 INR 0.99 (0.8-1.2) 08/01/23 00:00 Sodium 131 mmol/L (136-145) L 03/10/24 01:11 Potassium 3.7 mmol/L (3.5-5.1) 08/01/23 01:11 Chloride 93 mmol/L (98-107) L 08/01/23 01:11 Carbon Dioxide 24 mmol/L (22-29) 08/01/23 01:11 Anion Gap 17.7 (5-19) 08/01/23 01:11 BUN 24 mg/dL (8-23) H 08/01/23 01:11 Creatinine 0.7 mg/dL (0.5-0.9) 08/01/23 01:11 GFR Calculation Not Reportable 08/01/23 01:11 Glucose 228 mg/dL (65-115) H 08/01/23 01:11 Calculated Osmolality 283 mOsm/kg (285-295) L 08/01/23 01:11 Calcium 9.4 mg/dL (8.5-10.5) 08/01/23 01:11 Total Bilirubin 0.2 mg/dL (0.15-1.2) 08/01/23 01:11 AST 27 U/L (0-32) 08/01/23 01:11 ALT 22 U/L (0-33) 08/01/23 01:11 Alkaline Phosphatase 157 U/L (35-105) H 08/01/23 01:11 Troponin T Baseline 22 ng/L (0-10) H 08/01/23 00:00 Troponin T 120 Minute 18.04 ng/L (0-10) H 08/01/23 01:35 Delta Troponin T -3.96 ABS# (0-10) L 08/01/23 01:35 Total Protein 6.7 g/dL (6.6-8.7) 08/01/23 01:11 Albumin 3.5 g/dL (3.5-5.2) 08/01/23 01:11 Globulin 3.2 g/dL (1.3-4.6) 08/01/23 01:11 Lipase 14 U/L (13-60) 08/01/23 01:11 All radiology interpretation(s) finalized by discharge EKG Data EKG 1: I personally reviewed and interpreted this EKG as follows: EKG interpretation date: 08/01/23 EKG interpretation time: 00:18 Interpretation: nsr hr [address] or t wave abnormalities qrs 97 qtc 391 Discharge Plan Discharge Patient Disposition: Home Clinical Impression: Chest pain Condition: Stable Prescriptions: No Action dicyclomine 10 mg capsule 10 mg PO QID cholecalciferol (vitamin D3) 1,000 unit capsule 1,000 unit PO QPM cranberry 500 mg capsule 500 mg PO QPM Lactobacillus acidophilus [Acidophilus] Capsule 1 cap PO QAM ferrous sulfate 325 mg (65 mg iron) tablet 325 mg PO DAILY@12 magnesium oxide 400 mg (241.3 mg magnesium) tablet 500 mg PO DAILY@12 nitroglycerin 0.4 mg tablet, sublingual 0.4 mg sublingual Q5M PRN (Reason: chest pain) 30 Days Qty: 30 3RF Rx Instructions: until response; do not exceed 3 doses per episode furosemide 20 mg tablet 60 mg PO QAM hydrocortisone 10 mg tablet See Rx Instructions .ROUTE .COMPLEX Qty: 360 0RF Dose Instruction: TAKE 1 TABLET BY MOUTH FOUR TIMES DAILY Rx Instructions: TAKE 1 TABLET BY MOUTH FOUR TIMES DAILY potassium chloride 8 mEq capsule, extended release 24 meq PO QAM (DME) FreeStyle Tor 2 Sensor Kit See Rx Instructions .MEDSUPPLY Qty: 3 3RF Rx Instructions: As directed (DME) FreeStyle Tor 2 [place] Misc See Rx Instructions .Route Qty: 1 0RF Rx Instructions: As directed esomeprazole magnesium 40 mg capsule,delayed release(DR/EC) 40 mg PO QAM amlodipine 2.5 mg tablet 2.5 mg PO DAILY 30 Days Qty: 30 5RF (DME) blood sugar diagnostic Strip See Rx Instructions .Route Qty: 400 3RF Rx Instructions: Check blood sugar 4 times a day. (DME) lancets [Comfort EZ Lancets] 21 gauge misc See Rx Instructions .Route Qty: 400 3RF Rx Instructions: As directed (DME) Easymax 15 test strips Strip See Rx Instructions .Route Qty: 400 3RF Rx Instructions: Check BS 4 times a day. (DME) pen needle, diabetic [BD Ultra-Fine Mini Pen Needle] 31 gauge x 3/16 needle See Rx Instructions .ROUTE .COMPLEX Qty: 400 3RF Dose Instruction: USE DIRECTED Rx Instructions: QID clopidogrel 75 mg tablet 75 mg PO QPM Qty: 90 3RF Hold Instructions: Resume on 11/02/22. insulin degludec [Tresiba FlexTouch U-200] 200 unit/mL (3 mL) insulin pen See Rx Instructions .ROUTE .COMPLEX Qty: 18 0RF Dose Instruction: ADMINISTER 36 UNITS UNDER THE SKIN DAILY AT BEDTIME Rx Instructions: ADMINISTER 40 UNITS UNDER THE SKIN DAILY AT BEDTIME albuterol sulfate 90 mcg/actuation HFA aerosol inhaler 2 puff INHALATION QID PRN (Reason: Shortness Of Breath) Qty: 8.5 3RF insulin lispro [Humalog KwikPen Insulin] 100 unit/mL insulin pen 26 unit SUBCUT TID 90 Days Qty: 70.2 1RF Rx Instructions: 26 units subcutaneously three times daily; atorvastatin 40 mg tablet 40 mg PO BEDTIME vitamin E 1,000 unit Capsule 1,000 unit PO QAM ascorbic acid (vitamin C) [Vitamin C] 500 mg Tablet,Chewable 500 mg PO QNOON ondansetron 4 mg tablet,disintegrating 4 mg PO Q8H PRN (Reason: nausea and vomiting) Qty: 7 0RF isosorbide mononitrate 120 mg tablet extended release 24 hr 120 mg PO DAILY@12 valsartan 320 mg tablet 320 mg PO QPM aripiprazole 2 mg tablet 2 mg PO BEDTIME Miralax 17 gram/dose Powder 4 g PO DAILY PRN (Reason: Constipation) lactulose 10 gram/15 mL solution 15 ml PO DAILY PRN (Reason: Constipation) metolazone 2.5 mg tablet 2.5 mg PO QAM tramadol 50 mg tablet 50 mg PO TID PRN (Reason: Pain) Rx Instructions: WITH 1000 MG TYLENOL Discharge Orders: Discharge ED (Routine); Ordered 08/01/23 Ordered By: Enrico Camejo Referrals: Arabella Orta MD [Primary Care Provider] - 1-3 days Discharge Diet: Advance as tolerated Discharge Activity: Resume usual activity Patient Instructions: Chest Pain (ED) Coding Level of Care Code ED 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
[2023-08-01 00:22] VITALS: BP 127/54; PULSE 92; RESP 20; TEMP 36.6; O2SAT 98; BMI 36.6
[2023-08-01 00:39] LABS: Basophils % 0.4 %; Eosinophils # 0.1 10^3/uL (0.0-0.8); Eosinophils % 1.7 %; Hematocrit 35.5 % (36-47); Lymphocytes % 28.5 %; Mean Corpuscular HGB Conc 32.7 g/dL (30-55); Mean Corpuscular Hemoglobin 30.9 pg (27-33); Mean Corpuscular Volume 94.4 fl (85-98); Mean Platelet Volume 10.4 fL (7.4-10.4); Monocytes # 0.8 10^3/uL (0.2-0.9); Monocytes % 10.5 %; Neutrophils # 4.21 10^3/uL (1.8-7.7); Neutrophils % 58.6 %; Nucleated Red Blood Cells % 0 %; Platelet Count 210 10^3/cmm (157-399); Red Blood Count 3.76 10^6/uL (3.85-5.65); Red Cell Distribution Width 12.6 % (12.1-15.1); White Blood Count 7.17 10^3/uL (3.29-11.43)
[2023-08-01 00:50] LABS: INR 0.99 (0.8-1.2)
[2023-08-01 00:55] LABS: Troponin(5th) Baseline 22 ng/L (0-10)
[2023-08-01 00:56] VITALS: BP 138/59; PULSE 87; O2SAT 95
[2023-08-01 01:16] VITALS: BP 173/68; PULSE 89; RESP 18; O2SAT 98
[2023-08-01] MEDS: ondansetron 2 mg/ML SDV 2 mL 4 MG IVP (01:18)
[2023-08-01 01:42] LABS: Alanine Aminotransferase 22 U/L (0-33); Albumin Level 3.5 g/dL (3.5-5.2); Alkaline Phosphatase 157 U/L (35-105); Blood Urea Nitrogen 24 mg/dL (8-23); Calcium 9.4 mg/dL (8.5-10.5); Carbon Dioxide 24 mmol/L (22-29); Chloride 93 mmol/L (98-107); Creatinine Clr Calc Pharmacy 65.6235; Globulin 3.2 g/dL (1.3-4.6); Glucose 228 mg/dL (65-115); Lipase 14 U/L (13-60); Osmolality Calculated 283 mOsm/kg (285-295); Sodium 131 mmol/L (136-145); Total Bilirubin 0.2 mg/dL (0.15-1.2); Total Protein 6.7 g/dL (6.6-8.7)
[2023-08-01 01:43] LABS: Anion Gap 17.7 (5-19); Aspartate Amino Transferase 27 U/L (0-32); Potassium 3.7 mmol/L (3.5-5.1)
[2023-08-01 03:00] VITALS: PULSE 84; O2SAT 95
[2023-08-01] MEDS: acetaminophen-codeine 300-30mg Tablet 1 TAB PO (03:02)
[2023-08-01 03:07] LABS: Troponin 5 2HR 18.04 ng/L (0-10)
[2023-08-01 03:09] LABS: Troponin 5 2HR Delta -3.96 ABS# (0-10)
--- NOTE | 2023-08-01 03:12 | ECG_ITS ---
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 Measurements Intervals [place] Rate: 80 P: 39 [place]: 165 QRS: -32 QRSD: 113 T: 81 QT: 357 QTc: 413 Interpretive Statements SINUS RHYTHM LEFT AXIS DEVIATION [QRS AXIS < -30] MODERATE INTRAVENTRICULAR CONDUCTION DELAY [110+ ms QRS DURATION] NONSPECIFIC T-WAVE ABNORMALITY Compared to ECG 06/25/2023 00:32:31 Left-axis deviation now present Intraventricular conduction delay now present T-wave abnormality still present Electronically Signed On 08-01-2023 10:25:45 CDT by Jimbo Lopez M.D. [email or web address] choice medical center of smith countyImagrymercy health willard hospital.BatesHook/store/OM/[id number]
[2023-08-01 03:45] VITALS: BP 146/70; PULSE 82; O2SAT 94
== END 2023-08-01 03:48 | disposition home or self-care (01) ==
PROVIDERS: Emergency Provider Emergency Medicine; PCP Family Medicine
DX: R07.9 Chest pain, unspecified (principal); Z79.02 Long term (current) use of antithrombotics/antiplatelets; Z79.4 Long term (current) use of insulin; E78.5 Hyperlipidemia, unspecified; I10 Essential (primary) hypertension
CPT/HCPCS: 36415; 71045; 80053; 83690; 84484; 85025; 85610; 93005; 96374; 99285; J2405

== ENCOUNTER 2023-08-02 14:48 | Outpatient (CLI) | payer MEDICARE, OTHER, SELFPAY ==
[2023-08-02 15:12] LABS: Add Urine Microscopic? NO; Charge for UA Resulting for Rev
[2023-08-02 16:38] LABS: Bilirubin Urine Neg (Negative); Blood Urine Neg (Negative); Glucose Urine UA Norm (Normal); Ketones Urine Negative (Negative); Leukocyte Esterase Urine Negative (Negative); Nitrate Urine Negative (Negative); Protein Urine Neg (Negative); Specific Gravity, Urine 1.005 (1.005-1.030); Urine Appearance Clear (CLEAR); Urine Color Light yellow (Yellow); Urobilinogen Urine Norm (Negative); pH Urine 7 (5-7)
== END 2023-08-02 14:49 | disposition home or self-care (01) ==
LOC: LAB 14:52
PROVIDERS: PCP Family Medicine; Visit Provider Nurse Practitioner Family
DX: N39.0 Urinary tract infection, site not specified (principal)
CPT/HCPCS: 81003

== ENCOUNTER 2023-08-03 11:42 | Outpatient (CLI) | payer MEDICARE, OTHER, SELFPAY ==
--- NOTE | 2023-08-03 12:45 | USCV_ITS ---
Brandi Berg Age: 78 Gender: F : 1945 Exam Date: 08/03/2023 12:30 Ordering Phys: Sawyer Rosa MD (Andy) ([email or web address] [place]) Technologist: STACEY Exam Location: [facility] [place] Indication: HISTORY: Lower extremity pain. PROCEDURES: Venous duplex imaging was performed in bilateral lower extremities. The following venous structures were evaluated: common femoral vein, profunda vein, proximal portion of the greater saphenous vein, superficial femoral vein, and the popliteal vein. Serial compression, augmentation maneuvers, and spectral Doppler flow evaluation were performed. An evaluation for venous insufficiency was also completed. FINDINGS: The veins were found to be easily compressible with spontaneous blood flow. Non pulsatile flow pattern. Significant venous reflux were noted on the right side at the saphenofemoral junction, proximal, mid, distal and below-knee segments of the greater saphenous vein. The reflux time at these levels were 1.2, 1.3, 1.2, 1.2 and 2.3 seconds respectively. The venous segments where greater than 1 cm deep from the surface except at the level of the below-knee segment where it was only 0.8. The venous dimensions where 0.8, 0.7, 0.7, 0.5 and 0.6 cm respectively. The mid small saphenous vein segment also was found to have a reflux time of 1.3 seconds and the venous dimension was 0.5 cm. But the segment was only 0.6 cm deep from the surface On the left side, Significant venous reflux of vein noted at the mid greater saphenous, below-knee greater saphenous and mid small saphenous vein segments. The reflux times where 1, 2.8 and 1 seconds respectively. The venous dimensions at these levels were 0.6, 0.5 and 0.3 cm respectively. The segments are at a depth of 2.3, 0.6 and 0.6 cm respectively from the surface CONCLUSIONS 1. No evidence of DVT in the above-mentioned identifiable veins. 2. Significant venous reflux of greater than 500 ms were noted at the saphenofemoral junction and throughout the greater saphenous vein segments on the right side. All the saphenous vein segments were found to be 1 cm or greater at a depth of 1 cm or greater from the surface except the below-knee greater saphenous vein segment. The venous dimensions diameter was greater than 0.5 cm at these levels. The mid small saphenous vein segment also was found to have a reflux time of greater than 500 ms but was at a depth of 0.6 cm. 3. On the left side, significant venous reflux of greater than 500 ms were noted at the mid greater saphenous and below-knee greater sinus vein segments. But the below-knee segment was found to be at a depth of 0.6 cm. The mid small saphenous vein segment also was found to have significant reflux of greater than 500 ms, but at a depth of 0.6 cm from the surface. Dr Gilma Cai MD [facility] (Electronically Signed) Final Date: 06 August 2023 07:17 S
== END 2023-08-03 11:43 | disposition home or self-care (01) ==
PROVIDERS: PCP Family Medicine; Visit Provider Thoracic Surgery (Cardiothoracic Vascular Surgery)
DX: M79.89 Other specified soft tissue disorders (principal); I87.2 Venous insufficiency (chronic) (peripheral); M79.605 Pain in left leg; M79.604 Pain in right leg
CPT/HCPCS: 93970

== ENCOUNTER → 2023-08-11 12:33 | Outpatient (BNVA) | payer MEDICARE, OTHER, SELFPAY | PROVIDERS: PCP Family Medicine; Visit Provider Podiatrist Foot & Ankle Surgery | DX: L84 Corns and callosities (principal); E11.42 Type 2 diabetes mellitus with diabetic polyneuropathy; L60.3 Nail dystrophy; I73.9 Peripheral vascular disease, unspecified; Z79.4 Long term (current) use of insulin | CPT/HCPCS: 11056; 11721 ==

== ENCOUNTER 2023-09-06 05:01 | Emergency (ER) | payer MEDICARE, OTHER, SELFPAY ==
[2023-09-06 05:03] VITALS: BP 194/88; PULSE 86; RESP 18; TEMP 36.7; O2SAT 96
[2023-09-06 05:34] VITALS: BP 154/68; PULSE 85; RESP 22; O2SAT 96
--- NOTE | 2023-09-06 05:35 | XRR_ITS ---
PROCEDURE INFORMATION: Exam: XR Left Hip Exam date and time: 09/06/2023 5:37 AM Age: 78 years old Clinical indication: Prior surgery; Surgery date: 6+ months; Surgery type: Erlin; Patient HX: C/O left hip pain. No injury. History of sciatica. ; Additional info: L hip pain TECHNIQUE: Imaging protocol: Radiologic exam of the left hip. Views: 2 or 3 views hip with pelvis when performed. COMPARISON: CT pelvis wo con [id number] 10/24/2022 9:36 PM FINDINGS: Bones/joints: Unremarkable left hip arthroplasty alignment. Negative for left hip periprosthetic fracture. Negative for acute periosteal reaction. Soft tissues: Unremarkable. Other findings: No evidence of prosthesis loosening. XR/XR hip LT 2-3V wo/w pel* [id number] IMPRESSION: Unremarkable radiographic appearance of the left hip arthroplasty.
[2023-09-06 05:41] VITALS: RESP 18; O2SAT 97
[2023-09-06] MEDS: oxyCODONE-APAP 5-325 mg Tablet 2 TAB PO (05:41)
[2023-09-06] MEDS: ketorolac 30 mg/mL INJ IM (05:44)
--- NOTE | 2023-09-06 05:55 | ED_ITS ---
HPI - Extremity Problem General: Chief complaint: Extremity Problem,Nontraumatic Stated complaint: Leg pain Time Seen by Provider: 09/06/23 05:16 History of Present Illness: 78-year-old female well-known to the [facility] department service. She has a long history of back pain. She presents with pain to the posterior left hip that radiates down the back of her left thigh. She notes that she was having this yesterday, but was worse this morning on waking trying to get to the re stroom. Her had to put her in a wheelchair. She also notes that her right lower extremity has been cellulitic and a bit swollen. She just noticed this evidently this morning, when a small wound broke open and began to ooze. She denies fever. No loss of bowel or bladder function that is new.. 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 Left axis deviation. Normal CO and QRS duration. Dyslipidemia (high LDL; low HDL) Benign essential hypertension with target blood pressure below 140/90 Atherosclerotic heart disease of [place] coronary artery without angina pectoris Status post left heart catheterization Recurrent UTI Gross hematuria Bipolar II disorder Surgical History Hx of bilateral hip replacements Hx of bladder repair surgery History of colonoscopy (~2018) History of coronary artery stent placement History of right knee surgery S/P appendectomy S/P hysterectomy S/P hernia repair S/P hip replacement Family History Family/Other Diabetes Other Cancer Social History Smoking and tobacco/nicotine status: never used tobacco/nicotine Alcohol intake: never Substance/Drug Use: never Household members: spouse Marital status: Current occupational status: retired Physical Exam Const: COMMON NORMALS: no acute distress GENERAL APPEARANCE: cooperative; not ill appearing and not frail appearing HENMT: COMMON NORMALS: normocephalic, atraumatic and Normal external nose present HEAD & SCALP: normocephalic and atraumatic FACE & SINUS: normal facial exam and face symmetric NOSE: Normal external nose present Eye: COMMON NORMALS: Equal, round and reactive pupils present and EOMs intact bilaterally PUPIL: Yes Equal, round and reactive pupils present Neck/C-Spine: GENERAL: Yes trachea midline Chest: CHEST: Yes Symmetrical chest wall rise Resp: COMMON NORMALS: normal respiratory effort, No retractions, No use of accessory muscles and clear to auscultation bilaterally AUSCULTATION: clear to auscultation bilaterally Cardio: COMMON NORMALS: regular rate and regular rhythm RATE: regular rate RHYTHM: regular rhythm GI: COMMON NORMALS: Normal to inspection, nondistended, normoactive bowel sounds present Extremity: GENERAL: Yes edema (Bilaterally) and Yes other findings (Thickened skin bilaterally. Right beefy erythema suggestive of cellulitis) Neuro: ANA M COMA SCALE: document GCS findings Ana M coma scale eye open ing: Spontaneous Ana M coma scale verbal response: Orientated [place] coma scale motor response: Obey commands [place] coma scale total score: 15 SENSORY EXAM: Yes extremities (intact) Psych: COMMON NORMALS: speech normal SPEECH: Yes normal speech Skin: COMMON NORMALS: no rashes or lesions noted GENERAL SKIN EXAM: no rashes or lesions noted Course Vital Signs: Vital signs: Vital Signs Temperature 98.1 F 09/06/23 05:03 Pulse Rate 85 09/06/23 05:34 Respiratory Rate 18 09/06/23 05:41 Blood Pressure 154/68 09/06/23 05:34 Pulse Oximetry 97 09/06/23 05:41 Oxygen Delivery Me thod Room Air 09/06/23 05:03 MDM - Extremity (Nontraumatic) Medical Decision Making Hip x-ray shows prosthesis appropriately seated. Blood pressures improved after pain medication here. She received IM Toradol and oral Percocet. She will be prescribed a very short course of pain medication. Keflex for the right lower extremity is not showing signs of cellulitis. She has multiple drug allergies. To follow-up with her doctor this week XR interpretation done by ED provider, pending radiology final review Discharge Plan Discharge Patient Disposition: Home Clinical Impression: Intervertebral disc disorder with radiculopathy of lumbosacral region, Cellulitis Condition: Stable Prescriptions: New hydrocodone-acetaminophen 5-325 mg tablet 1 tab PO Q8H PRN (Reason: pain) Qty: 7 0RF cephalexin 500 mg capsule 500 mg PO Q6H 10 Days Qty: 40 0RF No Action dicyclomine 10 mg capsule 10 mg PO QID cholecalciferol (vitamin D3) 1,000 unit capsule 1,000 unit PO QPM cranberry 500 mg capsule 500 mg PO QPM Lactobacillus acidophilus [Acidophilus] Capsule 1 cap PO QAM ferrous sulfate 325 mg (65 mg iron) tablet 325 mg PO DAILY@12 magnesium oxide 400 mg (241.3 mg magnesium) tablet 500 mg PO DAILY@12 furosemide 20 mg tablet 60 mg PO QAM hydrocortisone 10 mg tablet See Rx Instructions .ROUTE .COMPLEX Qty: 360 0RF Dose Instruction: TAKE 1 TABLET BY MOUTH FOUR TIMES DAILY Rx Instructions: TAKE 1 TABLET BY MOUTH FOUR TIMES DAILY aripiprazole 2 mg tablet 2 mg PO BEDTIME Qty: 30 11RF potassium chloride 8 mEq capsule, extended release 24 meq PO QAM (DME) FreeStyle Tor 2 Sensor Kit See Rx Instructions .MEDSUPPLY Qty: 3 3RF Rx Instructions: As directed (DME) FreeStyle Tor 2 [place] Misc See Rx Instructions .Route Qty: 1 0RF Rx Instructions: As directed esomeprazole magnesium 40 mg capsule,delayed release(DR/EC) 40 mg PO QAM amlodipine 2.5 mg tablet 2.5 mg PO DAILY 30 Days Qty: 30 5RF (DME) pen needle, diabetic [BD Ultra-Fine Mini Pen Needle] 31 gauge x 3/16 needle See Rx Instructions .ROUTE .COMPLEX Qty: 400 3RF Dose Instruction: USE DIRECTED Rx Instructions: QID (DME) blood sugar diagnostic Strip See Rx Instructions .Route Qty: 400 3RF Rx Instructions: Check blood sugar 4 times a day. (DME) lancets [Comfort EZ Lancets] 21 gauge misc See Rx Instructions .Route Qty: 400 3RF Rx Instructions: As directed (DME) Easymax 15 test strips Strip See Rx Instructions .Route Qty: 400 3RF Rx Instructions: Check BS 4 times a day. clopidogrel 75 mg tablet 75 mg PO QPM Qty: 90 3RF Hold Instructions: Resume on 11/02/22. insulin degludec [Tresiba FlexTouch U-200] 200 unit/mL (3 mL) insulin pen See Rx Instructions .ROUTE .COMPLEX Qty: 18 0RF Dose Instruction: ADMINISTER 36 UNITS UNDER THE SKIN DAILY AT BEDTIME Rx Instructions: ADMINISTER 40 UNITS UNDER THE SKIN DAILY AT BEDTIME albuterol sulfate 90 mcg/actuation HFA aerosol inhaler 2 puff INHALATION QID PRN (Reason: Shortness Of Breath) Qty: 8.5 3RF insulin lispro [Humalog KwikPen Insulin] 100 unit/mL insulin pen 26 unit SUBCUT TID 90 Days Qty: 70.2 1RF Rx Instructions: 26 units subcutaneously three times daily; nitroglycerin 0.4 mg tablet, sublingual 0.4 mg sublingual Q5M PRN (Reason: chest pain) 30 Days Qty: 30 3RF Rx Instructions: until response; do not exceed 3 doses per episode valsartan 320 mg tablet 320 mg PO QPM Qty: 90 3RF atorvastatin 40 mg tablet 40 mg PO BEDTIME vitamin E 1,000 unit Capsule 1,000 unit PO QAM ascorbic acid (vitamin C) [Vitamin C] 500 mg Tablet,Chewable 500 mg PO QNOON ondansetron 4 mg tablet,disintegrating 4 mg PO Q8H PRN (Reason: nausea and vomiting) Qty: 7 0RF isosorbide mononitrate 120 mg tablet extended release 24 hr 120 mg PO DAILY@12 Miralax 17 gram/dose Powder 4 g PO DAILY PRN (Reason: Constipation) lactulose 10 gram/15 mL solution 15 ml PO DAILY PRN (Reason: Constipation) metolazone 2.5 mg tablet 2.5 mg PO QAM tramadol 50 mg tablet 50 mg PO TID PRN (Reason: Pain) Rx Instructions: WITH 1000 MG TYLENOL Discharge Orders: Discharge ED (Routine); Ordered 09/06/23 Ordered By: Monty Briseno Referrals: Arabella Orta MD [Primary Care Provider] - 1-3 days Patient Instructions: Opioid Safety, Pain Management Activity Restrictions/Additional Instructions: Medications as directed. Use pain medication sparingly. Return for fever despite 3-4 doses of antibiotics, worsening redness despite treatment, other concerning symptoms. See your doctor this week. 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
[2023-09-06 06:24] VITALS: BP 182/78; PULSE 77; RESP 18; O2SAT 97
== END 2023-09-06 06:25 | disposition home or self-care (01) ==
PROVIDERS: Emergency Provider Emergency Medicine; PCP Family Medicine
DX: M51.17 Intervertebral disc disorders with radiculopathy, lumbosacral region (principal); L03.115 Cellulitis of right lower limb; E78.5 Hyperlipidemia, unspecified; I10 Essential (primary) hypertension; I25.10 Atherosclerotic heart disease of native coronary artery without angina pectoris; Z96.643 Presence of artificial hip joint, bilateral
CPT/HCPCS: 73502; 96372; 99284; J1885

== ENCOUNTER → 2023-09-13 14:23 | Outpatient (BNVA) | payer MEDICARE, OTHER, SELFPAY | PROVIDERS: PCP Family Medicine; Visit Provider Internal Medicine Pulmonary Disease | DX: R06.02 Shortness of breath (principal) | CPT/HCPCS: 36415; 82785; 86003; 99214 ==

== ENCOUNTER → 2023-09-23 13:53 | Outpatient (BNVA) | payer MEDICARE, OTHER, SELFPAY | PROVIDERS: PCP Family Medicine; Visit Provider Orthopaedic Surgery | DX: M48.062 Spinal stenosis, lumbar region with neurogenic claudication (principal); M54.9 Dorsalgia, unspecified | CPT/HCPCS: 72100; 99214 ==

== ENCOUNTER 2023-09-29 14:08 | Outpatient (CLI) | payer MEDICARE, OTHER, SELFPAY ==
--- NOTE | 2023-09-29 14:30 | MR_ITS ---
WS: [id number] MRI LUMBAR SPINE NONCONTRAST TECHNIQUE: Sagittal T1, T2 and STIR imaging. Axial T1 and T2 imaging. CLINICAL INFORMATION: back pain COMPARISON: MRI 12/24/2022 FINDINGS: Mild lumbar curve. No acute compression. Grade 1 anterolisthesis L4 on L5 unchanged. L1-L2: Normal. L2-L3: Mild annular bulging. Impingement of the RIGHT subarticular recess and traversing RIGHT L3 ner ve root. Mild facet arthropathy. Mild RIGHT foraminal narrowing. L3-L4: Mild annular bulging with mild central canal stenosis appears slightly progressed. Narrowing o f the subarticular recess bilaterally. Mild facet arthropathy. Small LEFT foraminal protrusion with m ild LEFT foraminal narrowing and slight impingement on the exiting LEFT L3 nerve root unchanged. L4-L5: Grade 1 anterolisthesis. Impingement on the RIGHT greater than LEFT subarticular recess with m oderate facet arthropathy. Mild central canal stenosis. Mild RIGHT foraminal narrowing. L5-S1: Prior hemilaminectomy with partial discectomy. Recurrent disc protrusion versus granulation ti ssue contacts the LEFT S1 nerve root in the subarticular recess. Proximal foramen are patent. Osteoph ytic ridging encroaches on the far exiting LEFT L5 nerve root. No fluid collections. Mild facet arthr opathy. Visualized pelvic bony structures: Normal. Paravertebral soft tissues: Normal. MR/MR lumbar spine wo con* [id number] IMPRESSION:. 1. Slight anterolisthesis L4 and L5 with mild central canal stenosis and impin gement RIGHT subarticular recess unchanged. 2. LEFT L5-S1 decompressive laminectomy new from previous. Recurrent disc mate rial or granulation tissue contacts the LEFT S1 nerve root in the subarticular recess. Recommend correlation LEFT S1 nerve root symptoms. 3. Mild central canal stenosis L3-4 with a shallow central protrusion slightly progressed compared to previous. LEFT foraminal protrusion at this level impin ges the exiting LEFT L3 nerve root. 4. Mild central canal stenosis L2-3 with impingement RIGHT subarticular recess unchanged.
[2023-09-29 15:54] LABS: Alanine Aminotransferase 24 U/L (0-33); Albumin Level 3.7 g/dL (3.5-5.2); Alkaline Phosphatase 168 U/L (35-105); Anion Gap 15.8 (5-19); Aspartate Amino Transferase 31 U/L (0-32); Blood Urea Nitrogen 21 mg/dL (8-23); Calcium 9.3 mg/dL (8.5-10.5); Carbon Dioxide 26 mmol/L (22-29); Chloride 93 mmol/L (98-107); Chol HDL Ratio 2.44 mg/dL (0.0-4.40); Cholesterol 110 mg/dL (0-200); Creatinine Clr Calc Pharmacy 65.7843; Globulin 3.2 g/dL (1.3-4.6); Glucose 188 mg/dL (65-115); HDL Cholesterol 45 mg/dL (60-100); LDL Cholesterol Calculated 39 mg/dL (50-129); LDL HDL Ratio 0.87 RATIO (0.00-3.22); Osmolality Calculated 280 mOsm/kg (285-295); Potassium 3.8 mmol/L (3.5-5.1); Sodium 131 mmol/L (136-145); Total Bilirubin 0.3 mg/dL (0.15-1.2); Total Protein 6.9 g/dL (6.6-8.7); Triglycerides 130 mg/dL (0-150)
[2023-09-29 15:55] LABS: Creatinine Urine, Random 63 mg/dL (28-217); Microalbum Creatinine Ratio Ur 16 mg/dL (0-20); Microalbumin Random Urine 1 ug/dL (0-20)
[2023-09-29 16:00] LABS: Estmated Average Glucose 203; Hemoglobin A1C 8.7 % (4.0-6.0)
== END 2023-09-29 14:09 | disposition home or self-care (01) ==
LOC: RAD 14:08
PROVIDERS: Internal Medicine; PCP Family Medicine; Visit Provider Orthopaedic Surgery
DX: M48.062 Spinal stenosis, lumbar region with neurogenic claudication (principal); M51.27 Other intervertebral disc displacement, lumbosacral region; E16.2 Hypoglycemia, unspecified; E11.9 Type 2 diabetes mellitus without complications; E78.5 Hyperlipidemia, unspecified; I25.10 Atherosclerotic heart disease of native coronary artery without angina pectoris
CPT/HCPCS: 36415; 72148; 80053; 80061; 82044; 83036

== ENCOUNTER → 2023-10-05 14:14 | Outpatient (BNVA) | payer MEDICARE, OTHER, SELFPAY | PROVIDERS: PCP Family Medicine; Visit Provider Orthopaedic Surgery | DX: M48.062 Spinal stenosis, lumbar region with neurogenic claudication | CPT/HCPCS: 99213 ==

== ENCOUNTER → 2023-10-06 11:03 | Outpatient (BNVA) | payer MEDICARE, OTHER, SELFPAY | PROVIDERS: PCP Family Medicine; Visit Provider Internal Medicine | DX: E11.649 Type 2 diabetes mellitus with hypoglycemia without coma; E11.59 Type 2 diabetes mellitus with other circulatory complications; E78.5 Hyperlipidemia, unspecified; I25.10 Atherosclerotic heart disease of native coronary artery without angina pectoris; K11.7 Disturbances of salivary secretion; E86.0 Dehydration; E27.40 Unspecified adrenocortical insufficiency | CPT/HCPCS: 99214 ==

== ENCOUNTER → 2023-11-03 13:18 | Outpatient (BNVA) | payer MEDICARE, OTHER, SELFPAY | PROVIDERS: PCP Family Medicine; Visit Provider Podiatrist Foot & Ankle Surgery | DX: L84 Corns and callosities (principal); E11.42 Type 2 diabetes mellitus with diabetic polyneuropathy; L60.3 Nail dystrophy; I73.9 Peripheral vascular disease, unspecified; I87.2 Venous insufficiency (chronic) (peripheral); I83.028 Varicose veins of left lower extremity with ulcer other part of lower leg; L97.828 Non-pressure chronic ulcer of other part of left lower leg with other specified severity; Z79.4 Long term (current) use of insulin | CPT/HCPCS: 11056; 11721 ==

== ENCOUNTER 2023-11-12 13:45 | Outpatient (CLI) | payer MEDICARE, OTHER, SELFPAY ==
[2023-11-12 14:49] LABS: Anion Gap 14.4 (5-19); Blood Urea Nitrogen 17 mg/dL (8-23); Calcium 9.9 mg/dL (8.5-10.5); Carbon Dioxide 29 mmol/L (22-29); Chloride 92 mmol/L (98-107); Glucose 182 mg/dL (65-115); Osmolality Calculated 278 mOsm/kg (285-295); Potassium 4.4 mmol/L (3.5-5.1); Sodium 131 mmol/L (136-145)
== END 2023-11-12 13:46 | disposition home or self-care (01) ==
LOC: LAB 13:46
PROVIDERS: PCP Family Medicine; Visit Provider Family Medicine
DX: E27.1 Primary adrenocortical insufficiency (principal)
CPT/HCPCS: 80048

== ENCOUNTER → 2023-12-02 11:30 | Outpatient (BNVA) | payer MEDICARE, OTHER, SELFPAY | PROVIDERS: PCP Family Medicine; Visit Provider Internal Medicine Cardiovascular Disease | DX: I25.10 Atherosclerotic heart disease of native coronary artery without angina pectoris (principal); R00.2 Palpitations; I10 Essential (primary) hypertension; E78.5 Hyperlipidemia, unspecified; I73.9 Peripheral vascular disease, unspecified; R06.02 Shortness of breath | CPT/HCPCS: 99214 ==

== ENCOUNTER → 2023-12-14 08:14 | Outpatient (BNVA) | payer MEDICARE, OTHER, SELFPAY | PROVIDERS: PCP Family Medicine; Visit Provider Orthopaedic Surgery | DX: Z01.818 Encounter for other preprocedural examination (principal); Z09 Encounter for follow-up examination after completed treatment for conditions other than malignant neoplasm; E16.2 Hypoglycemia, unspecified | CPT/HCPCS: 36415; 80053; 81001; 83036; 85025; 99214 ==

== ENCOUNTER → 2023-12-24 09:42 | Outpatient (BNVA) | payer MEDICARE, OTHER, SELFPAY | PROVIDERS: PCP Family Medicine; Visit Provider Family Medicine | DX: Z01.818 Encounter for other preprocedural examination (principal) | CPT/HCPCS: 93005 ==

== ENCOUNTER → 2023-12-28 13:44 | Outpatient (BNVA) | payer MEDICARE, OTHER, SELFPAY | PROVIDERS: PCP Family Medicine; Visit Provider Psychiatry & Neurology Psychiatry | DX: E87.1 Hypo-osmolality and hyponatremia (principal); Z79.899 Other long term (current) drug therapy | CPT/HCPCS: 84295 ==

== ENCOUNTER 2024-01-03 15:12 | Outpatient (CLI) | payer MEDICARE, OTHER, SELFPAY | END 2024-01-03 15:13 | disposition home or self-care (01) | LOC: LAB 15:14 | PROVIDERS: PCP Family Medicine; Visit Provider Internal Medicine | DX: E11.9 Type 2 diabetes mellitus without complications (principal); E78.5 Hyperlipidemia, unspecified; E16.2 Hypoglycemia, unspecified; I25.10 Atherosclerotic heart disease of native coronary artery without angina pectoris | CPT/HCPCS: 36415; 80053; 80061; 82044; 83036 ==

== ENCOUNTER → 2024-01-05 10:50 | Outpatient (BNVA) | payer MEDICARE, OTHER, SELFPAY | PROVIDERS: PCP Family Medicine; Visit Provider Internal Medicine | DX: E78.5 Hyperlipidemia, unspecified (principal); I25.10 Atherosclerotic heart disease of native coronary artery without angina pectoris; K11.7 Disturbances of salivary secretion; E86.0 Dehydration; E27.40 Unspecified adrenocortical insufficiency; E11.649 Type 2 diabetes mellitus with hypoglycemia without coma; Z79.4 Long term (current) use of insulin | CPT/HCPCS: 99214 ==

== ENCOUNTER 2024-01-10 10:27 | Observation (INO) | payer MEDICARE, OTHER, SELFPAY ==
[2024-01-10] VITALS (23 sets, daily range): BP systolic 121–216; BP diastolic 52–81; PULSE 71–95; RESP 14–18; TEMP 36.3–36.9; O2SAT 90–100; BMI 37.9; BMI 37.4
[2024-01-10 08:50] LABS: Glucose Point of Care 170 mg/dL (70-110)
--- NOTE | 2024-01-10 08:53 | W.PM.OPSUD ---
Surgery/Procedure H&P Update DATE OF PROCEDURE: January 10, 2024 DATE H&P PERFORMED: 12/24/23 H&P UPDATE INFORMATION: I have reviewed H&P completed within last 30 days, I have examined patient prior to procedure and No changes to prior documentation PREOP DIAGNOSIS: Lumbar stenosis with neurogenic claudication PLANNED PROCEDURE: Operation Date: 01/10/24 09:15 Proposed Procedures p Lumbar Spine Decompression Lumbar Decompression(Not Applicable) - Horace Joya DO
[2024-01-10] MEDS: sodium chloride 0.9% 1,000 ML 30 ML IV (08:59)
--- NOTE | 2024-01-10 09:00 | ANES.PREANE2 ---
Pre-Anesthetic Assessment Height/Weight: Height 5 ft 5 in Weight 228 lb Temp Pulse Resp BP Pulse Ox O2 Del Method 97.4 F L 95 18 181/76 96 Room Air 01/10/24 07:59 01/10/24 07:59 01/10/24 07:59 01/10/24 07:59 01/10/24 07:59 01/10/24 08:20 Preop Diagnosis: Lumbar stenosis with neurogenic claudication Operation Date: 01/10/24 09:15 Proposed Procedures p Lumbar Spine Decompression Lumbar Decompression(Not Applicable) - Horace Joya DO Last intake: Intake Last Liquid Date 01/09/24 Last Liquid Time 23:45 Last Solid Date 01/09/24 Last Solid Time 22:30 Social No alcohol and No tobacco Airway Submandibular: within normal limits Cervical ROM: within normal limits Mallampati: Class III Dentition: loose Comments: Comments: multiple missing teeth, upper and lower Pulmonary Sleep Apnea non compliant with CPAP CV/HEM Coronary Artery Disease and Hypertension multiple heart stents, most recent 1 year ago Metabolic Diabetes Mellitus addisons disease Anesthetic Plan ASA status: 3 Anesthesia: General Other: Patient has no prior issues with anesthesia Addisons disease noted, recheck of sodium 137. Spoke with Dr. Denson(endocrinology) and she suggest stress dose steroids CAD, 3 stents, most recent 1 year ago. Plavix stopped 1 week ago Patient is not on current GLP-1 inhibitor even though it is listed in meds NPO since [place] Labs reviewed EKG reviewed with delayed conduction stress test in Jun. was normal METS>4 Risks explained to patient and she consents to GETA Risk of > 500 ml blood loss (7ml/kg in children): Yes, adequate IV access and fluids planned Medications/Allergies Home Medications Medication Instructions Recorded Confirmed Last Taken Type Lactobacillus acidophilus 1 cap PO QAM 06/01/19 01/07/24 01/07/24 History (Acidophilus capsule) cholecalciferol (vitamin D3) 25 1,000 unit PO QPM 06/01/19 01/07/24 01/06/24 History mcg (1,000 unit) capsule cranberry 500 mg capsule 500 mg PO QPM 06/01/19 01/07/24 01/07/24 History dicyclomine 10 mg capsule 10 mg PO QID 06/01/19 01/07/24 01/09/24 History ferrous sulfate 325 mg (65 mg 325 mg PO DAILY@06/21/19 01/07/24 01/09/24 History iron) tablet atorvastatin 40 mg tablet 40 mg PO BEDTIME 09/06/20 01/07/24 01/09/24 History magnesium oxide 400 mg (241.3 mg 500 mg PO DAILY@02/14/21 01/07/24 01/09/24 History magnesium) tablet blood sugar diagnostic #400 ea 09/02/21 01/05/24 10/27/22 Rx lancets 21 gauge (Comfort EZ #400 ea 09/02/21 01/05/24 10/27/22 Rx Lancets) blood sugar diagnostic (Easymax 15 #400 ea 09/11/21 01/05/24 10/27/22 Rx test strips) ascorbic acid (vitamin C) 500 mg 500 mg PO QNOON 11/14/21 01/07/24 01/09/24 History chewable tablet (Vitamin C) vitamin E 670 mg (1,000 unit) 1,000 unit PO QAM 11/14/21 01/07/24 01/07/24 History capsule flash glucose scanning reader #1 ea 02/17/22 01/05/24 10/27/22 Rx (FreeStyle Tor 2 [place]) flash glucose sensor (FreeStyle #3 ea 02/17/22 01/05/24 10/27/22 Rx Tor 2 Sensor kit) ondansetron 4 mg disintegrating 4 mg PO Q8H PRN nausea and 04/24/22 01/10/24 01/08/24 Rx tablet vomiting #7 tabs esomeprazole magnesium 40 mg 40 mg PO QAM 05/19/22 01/07/24 01/09/24 History capsule,delayed release furosemide 20 mg tablet 60 mg PO QAM 05/19/22 01/07/24 01/09/24 History potassium chloride 8 mEq 24 meq PO QAM 05/19/22 01/07/24 01/09/24 History capsule,extended release clopidogrel 75 mg tablet 75 mg PO QPM #90 tabs 02/18/23 01/07/24 01/02/24 Rx metolazone 2.5 mg tablet 2.5 mg PO QAM 04/05/23 01/07/24 01/09/24 History lactulose 10 gram/15 mL oral 15 ml PO DAILY PRN Constipation 06/23/23 01/10/24 01/08/24 History solution polyethylene glycol 3350 17 4 g PO DAILY PRN Constipation 06/23/23 01/07/24 Unknown History gram/dose oral powder (Miralax) nitroglycerin 0.4 mg sublingual 0.4 mg sublingual Q5M PRN chest 08/04/23 01/07/24 Unknown Rx tablet pain 30 days #30 tabs aripiprazole 2 mg tablet 2 mg PO BEDTIME #30 tabs 08/12/23 01/07/24 01/09/24 Rx pen needle, diabetic 31 gauge x #400 ea 08/12/23 01/05/24 Unknown Rx 3/16 (BD Ultra-Fine Mini Pen Needle) valsartan 320 mg tablet 320 mg PO QPM #90 tabs 08/30/23 01/07/24 01/09/24 21:00 Rx levalbuterol tartrate 45 2 inh inhalation Q6H #15 grams 09/13/23 01/07/24 01/06/24 Rx mcg/actuation aerosol inhaler (Xopenex HFA) fluticasone furoate 100 1 inh inhalation DAILY #60 ea 09/20/23 01/07/24 01/09/24 Rx mcg-vilanterol 25 mcg/dose inhalation powder (Breo Ellipta) isosorbide mononitrate 120 mg 120 mg PO DAILY@12 #90 tabs 09/20/23 01/07/24 01/09/24 Rx tablet,extended release 24 hr melatonin 3 mg capsule 3 mg PO DAILY 11/18/23 01/07/24 01/08/24 History amlodipine 2.5 mg tablet 2.5 mg PO DAILY HTN 30 days #30 11/30/23 01/07/24 01/09/24 Rx tabs insulin degludec 200 unit/mL (3 52 unit (0.26 mL) SUBCUT DAILY #20 12/24/23 01/07/24 01/09/24 20:00 Rx mL) subcutaneous pen (Tresiba mL FlexTouch U-200 insulin) insulin lispro 100 unit/mL 28 unit (0.28 mL) SUBCUT TID 90 12/28/23 01/07/24 01/09/24 20:00 Rx subcutaneous pen (Humalog KwikPen days #75.6 mL (U-100) Insulin) tirzepatide 2.5 mg/0.5 mL 2.5 mg (0.5 mL) SUBCUT Q7D 1 month 01/05/24 01/07/24 Unknown Rx subcutaneous pen injector #2 mL (Mounjaro) tirzepatide 5 mg/0.5 mL 5 mg (0.5 mL) SUBCUT Q7D 1 month 01/05/24 01/07/24 Unknown Rx subcutaneous pen injector #2 mL (Mounjaro) tirzepatide 7.5 mg/0.5 mL 7.5 mg (0.5 mL) SUBCUT Q7D #2 mL 01/05/24 01/07/24 Unknown Rx subcutaneous pen injector (Mounjaro) hydrocodone 10 mg-acetaminophen 1 tab PO Q6H PRN pain 14 days #60 01/06/24 01/07/24 01/09/24 Rx 325 mg tablet tabs hydrocortisone 10 mg tablet 10 mg PO QID 01/07/24 01/07/24 01/09/24 History Allergies Allergy/AdvReac Type Severity Reaction Status Date / Time morphine Allergy Severe RESPIRATORY Verified 01/05/24 15:59 DISTRESS doxycycline Allergy Mild THROAT Verified 01/05/24 15:59 SWELLING duloxetine [From Cymbalta] Allergy Mild SWELLING, Verified 01/05/24 15:59 VOMITING metformin Allergy Mild THROAT Verified 01/05/24 15:59 SWELLING oxybutynin [From Oxytrol] Allergy Mild ALGY-Rash Verified 01/05/24 15:59 Penicillins Allergy Mild ALGY-Rash Verified 01/05/24 15:59 Sulfa (Sulfonamide Allergy Mild STOMACH Verified 01/05/24 15:59 Antibiotics) CRAMPS alprazolam [From Xanax] Allergy Unknown Unknown Verified 01/07/24 15:35 amitriptyline Allergy Unknown Unknown Verified 01/05/24 15:59 Barbiturates Allergy Unknown stomach Verified 01/07/24 15:35 cramps cefuroxime [From Ceftin] Allergy Unknown stomach Verified 01/07/24 15:35 cramps insulin detemir Allergy Unknown Unknown Verified 01/05/24 15:59 [From Levemir U-100 Insulin] levofloxacin [From Levaquin] Allergy Unknown Unknown Verified 01/05/24 15:59 liraglutide [From Victoza] Allergy Unknown Unknown Verified 01/05/24 15:59 metoclopramide [From Reglan] Allergy Unknown Unknown Verified 01/05/24 15:59 nitrofurantoin Allergy Unknown Unknown Verified 01/05/24 15:59 [From Macrobid] pregabalin [From Lyrica] Allergy Unknown Unknown Verified 01/05/24 15:59 divalproex sodium Allergy ALGY-Hives Verified 01/05/24 15:59 [From Depakote] gabapentin Allergy bone, Verified 01/05/24 15:59 muscle pain and mood swings venlafaxine Allergy Unknown Verified 01/05/24 15:59 meloxicam AdvReac Severe ADR-Vomitin Verified 01/05/24 15:59 g ciprofloxacin [From Cipro] AdvReac Mild stomach Verified 01/05/24 15:59 upset hydromorphone [From Dilaudid] AdvReac Unknown PT STATES Verified 01/05/24 15:59 IT MAKES ME CRAZY Current Medications Generic Name Dose Route Start Last Admin Trade Name Freq PRN Reason Stop Dose Admin Fentanyl 50 mcg 01/10/24 07:43 01/10/24 09:23 Fentanyl 50 Mcg/Ml Inj 2ml IVP 50 mcg Q10M PRN Administration Preop Pain Sodium Chloride 1,000 mls @ 30 mls/hr 01/10/24 07:45 01/10/24 08:59 Sodium Chloride 0.9% IV 01/11/24 07:44 30 mls/hr .Q24H TEJA Administration Ondansetron HCl 4 mg 01/10/24 07:43 01/10/24 09:23 Ondansetron 2 Mg/Ml Sdv 2 Ml IVP 4 mg Q5M PRN Administration NAUSEA AND VOMITING PFSH Anesthesia Medical History Morbid obesity Leg pain Psychiatric care Psychiatric care 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 Left axis deviation. Normal [place] and QRS duration. Dyslipidemia (high LDL; low HDL) Benign essential hypertension with target blood pressure below 140/90 Atherosclerotic heart disease of [place] coronary artery without angina pectoris Status post left heart catheterization Recurrent UTI Gross hematuria Bipolar II disorder Surgical History Hx of bilateral hip replacements Hx of bladder repair surgery History of colonoscopy (~2018) History of coronary artery stent placement History of right knee surgery S/P appendectomy S/P hysterectomy S/P hernia repair S/P hip replacement Family History Family/Other Diabetes Other Cancer Social History Smoking and tobacco/nicotine status: never used tobacco/nicotine Alcohol intake: never Substance/Drug Use: never Household members: spouse Marital status: Current occupational status: retired Data Anesthesia 01/10/24 08:45 BMP 01/10/24 08:45 Sodium 137 Potassium 4.3 Chloride 97 L Carbon Dioxide 28 BUN 18 Creatinine 0.6 Glucose 169 H Calcium 9.9 Cardiac Studies: Echocardiogram 11/14/21 Sestamibi Stress Test (Cardiology) 07/09/23 Cardiac Event Monitor 08/09/23 Holter Monitor 04/29/21
[2024-01-10 09:13] LABS: Anion Gap 16.3 (5-19); Blood Urea Nitrogen 18 mg/dL (8-23); Calcium 9.9 mg/dL (8.5-10.5); Carbon Dioxide 28 mmol/L (22-29); Chloride 97 mmol/L (98-107); Creatinine Clr Calc Pharmacy 66.9088; Glucose 169 mg/dL (65-115); Osmolality Calculated 290 mOsm/kg (285-295); Potassium 4.3 mmol/L (3.5-5.1); Sodium 137 mmol/L (136-145)
[2024-01-10] MEDS: ondansetron 2 mg/ML SDV 2 mL 4 MG IVP ×3 (09:23→11:31)
[2024-01-10] MEDS: fentaNYL 50 mcg/mL INJ 2mL IVP (09:23)
[2024-01-10] MEDS: ceFAZolin 2,000 mg SDV 2000 MG IVP (09:27)
[2024-01-10] MEDS: lidocaine-epi 1% 20 mL INJ INJECTION (09:58)
--- NOTE | 2024-01-10 10:37 | PM.OP ---
Operative Report Date of procedure: January 10, 2024 Pre-op diagnosis: Lumbar stenosis with neurogenic claudication Post-op diagnosis: same Procedure done: L3-4 laminectomy with partial facetectomy Surgeon: Horace Joya DO Estimated blood loss (mL): 10 Procedure: L3-4 laminectomy with partial facetectomy Patient is brought to the operative suite. After undergoing anesthesia they are placed in the prone position. All areas of impingement are well padded. Patient is then prepped and draped in the normal sterile fashion. A skin incision is made over the L3-4 level. This is confirmed under c-arm guidance. A series of dilators are passed and the tubular retractor is docked on the L3 lamina. A bovie is used to clear the soft tissue off the lamina and the L 3/4 facet joint. A high speed reji is then used to perform the laminectomy and take down the medial aspect of the L 3/4 facet joint. A kerrison rongeure was then used to take down the remaining lamina and smooth the edge of the laminectomy up to the point where the ligamentum flavum attaches. Attention was then brought to the medial aspect of the facet joint. The remaining medial aspect of the superior and inferior aspect of the facet joint were taken down with the kerrison from the pedicle of L3 to L 4. The facet joint had significant hypertrophy. Attention was then brought to the Ligamentum Flavum. The ligament was taken down from the lamina of L3 to L4 and out medially to the remaining facet joint. The ligament was thick. The dura was then exposed. The dura was in good repair. The L3 nerve was then traced with a curette out the L3/4 foramen and found to be adequately decompressed. The L4 nerve was traced with a curette around the L4 pedicle. The lateral recess was opened with a kerrison helping to further decompress the L4 nerve. Wound is then irrigated copiously with saline and surgiflo is used to stop any bleeding. The tubular retractor is removed and the wound is closed with vicryl and monocryl suture. Glue is then used to protect the wound. A sterile dressing is then placed. Patient was then placed in the supine position and transferred to the PACU in stable condition.
[2024-01-10] MEDS: fentaNYL 50 mcg/mL INJ 2mL 100 MCG (11:01)
--- NOTE | 2024-01-10 11:20 | ANE.PACU2 ---
Inpatient post-anesthesia follow up: Airway intact: Yes Vital signs: Temperature 98.3 F Pulse Rate 80 Respiratory Rate 16 Blood Pressure 148/71 Pulse Oximetry 96 Oxygen Delivery Me thod Room Air Oxygen Flow Rate 6 Fraction of Inspir ed Oxygen Hydration adequate: Yes Nausea and vomiting: No Pain level: 1 Mental status: Baseline
--- NOTE | 2024-01-10 12:26 | SUR.PHASEI ---
patient received from OR with pressures of 200s/70s. Anesthesia was treating with labetalol x3. pressures decreased to stable below baseline. patient compained of achy pain of 7. patient was treated with 50mcg of fentanyl. anesthesia said patient could follow up with scheduled norco when taken to the floor. called report to floor nurse. delivered patient and family member to room [id number]. floor nurse, telecommunications facility examiner and pacu nurse assisted patient to bedside commode, then to bed.
[2024-01-10] MEDS: ferrous sulfate EC 325 mg Tablet PO (12:57)
[2024-01-10] MEDS: hydrocortisone 10 mg Tablet PO ×3 (12:57→21:09)
[2024-01-10] MEDS: dicyclomine 10 mg Capsule PO ×3 (12:57→21:09)
[2024-01-10] MEDS: magnesium oxide 400 mg tablet 500 MG PO (12:57)
[2024-01-10] MEDS: ascorbic acid 500 mg Tablet PO (12:57)
[2024-01-10] MEDS: isosorbide mononitrate ER 60 mg Tablet 120 MG PO (12:57)
[2024-01-10] MEDS: lactated ringers 1,000 ML 90 ML IV ×2 (13:10→21:10)
[2024-01-10] MEDS: levalbuterol 1.25 mg/3 mL Neb INHALATION ×2 (13:37→20:15)
--- NOTE | 2024-01-10 14:04 | XR_ITS ---
WS: [id number] INTRAOPERATIVE TECHNIQUE: 2 Spot fluoroscopic images for intraoperative purposes. FLUOROSCOPY TIME: 1 seconds CLINICAL INFORMATION: OR PIC, SPINAL DECOMPRESSION. FINDINGS: Localization marker projected over the LEFT L4 superior endplate XR/XR lumbar spine 2-3V* [id number] IMPRESSION: Images obtained for intraoperative purposes.
[2024-01-10] MEDS: HYDROcodone-acetaminophen 10-325 mg Tablet PO ×3 (15:01→23:27)
[2024-01-10] MEDS: losartan 50 mg Tablet PO (17:12)
[2024-01-10] MEDS: insulin lispro 100 unit/1 mL 28 UNIT SUBCUT (17:12)
[2024-01-10] MEDS: cholecalciferol (vitamin D3) 1,000 unit Tablet 1000 UNIT PO (17:13)
[2024-01-10] MEDS: docusate sodium 100 mg Capsule PO (17:13)
[2024-01-10] MEDS: budesonide 0.5 mg/2 mL Neb INHALATION (20:15)
[2024-01-10] MEDS: ARIPiprazole 2 mg Tablet PO (21:09)
[2024-01-10] MEDS: atorvastatin 40 mg Tablet PO (21:09)
[2024-01-11] VITALS: BP 125/67; PULSE 94; RESP 18; TEMP 36.7; O2SAT 94
[2024-01-11 04:42] VITALS: BP 122/64; PULSE 94; RESP 19; TEMP 36.8; O2SAT 95
[2024-01-11] MEDS: lactobacillus 1 Tablet 1 TAB PO (05:44)
[2024-01-11] MEDS: FUROsemide 20 mg Tablet 60 MG PO (05:44)
[2024-01-11] MEDS: potassium chloride ER 20 mEq Tablet PO (05:44)
[2024-01-11] MEDS: metOLazone 5 MG Tablet 2.5 MG PO (05:44)
[2024-01-11] MEDS: pantoprazole DR 40 mg Tablet PO (05:44)
[2024-01-11] MEDS: HYDROcodone-acetaminophen 10-325 mg Tablet PO (05:44)
[2024-01-11] MEDS: insulin lispro 100 unit/1 mL 28 UNIT SUBCUT (07:53)
[2024-01-11] MEDS: amlodipine 5 mg Tablet 2.5 MG PO (07:54)
[2024-01-11] MEDS: predniSONE 20 mg Tablet 60 MG PO (07:54)
[2024-01-11] MEDS: hydrocortisone 10 mg Tablet PO (07:54)
[2024-01-11] MEDS: dicyclomine 10 mg Capsule PO (07:55)
[2024-01-11] MEDS: docusate sodium 100 mg Capsule PO (07:55)
[2024-01-11] MEDS: budesonide 0.5 mg/2 mL Neb INHALATION (07:59)
[2024-01-11 08:00] VITALS: PULSE 68; RESP 18; O2SAT 98
[2024-01-11] MEDS: levalbuterol 1.25 mg/3 mL Neb INHALATION (08:00)
--- NOTE | 2024-01-11 08:18 | P.DS_ITS ---
Discharge Providers Date of Admission: 01/10/24 10:27 Date of Discharge: January 11, 2024 Attending Provider at Admission: Horace Joya DO Attending Provider at Discharge: Horace Joya DO Primary Care Provider: Arabella Orta MD Reason for Visit Reason for Visit: M48.062 Physical Exam Narrative: Patient had breakfast pain control. This point she is complaining of some left rib pain. Told was likely from positioning. Discharge Data Studies Completed and Pending Completed Studies During Hospitalization Category Date Time Status XR lumbar spine 2-3V* [id number] Routine Exams 01/10/24 14:04 Completed Radiology Impressions Lumbar Spine X-Ray 01/10/24 14:04 IMPRESSION: Images obtained for intraoperative purposes. Laboratory Results Sodium 137 mmol/L (136-145) 01/10/24 08:45 Potassium 4.3 mmol/L (3.5-5.1) 01/10/24 08:45 Chloride 97 mmol/L (98-107) L 01/10/24 08:45 Carbon Dioxide 28 mmol/L (22-29) 01/10/24 08:45 Anion Gap 16.3 (5-19) 01/10/24 08:45 BUN 18 mg/dL (8-23) 01/10/24 08:45 Creatinine 0.6 mg/dL (0.5-0.9) 01/10/24 08:45 GFR Calculation Not Reportable 01/10/24 08:45 Glucose 169 mg/dL (65-115) H 01/10/24 08:45 POC Glucose 170 mg/dL (70-110) H 01/10/24 08:45 Calculated Osmolality 290 mOsm/kg (285-295) 01/10/24 08:45 Calcium 9.9 mg/dL (8.5-10.5) 01/10/24 08:45 Vitals Last Vital Signs Temp 98.2 F 01/11/24 04:42 Pulse 94 01/11/24 04:42 Resp 19 H 01/11/24 04:42 BP 122/64 01/11/24 04:42 Pulse Ox 95 01/11/24 04:42 O2 Del Method Room Air 01/11/24 04:42 O2 Flow Rate 6 01/10/24 10:34 Discharge Plan Discharge Patient Disposition: Home Condition: Stable Prescriptions: New hydrocodone-acetaminophen 10-325 mg tablet 1 - 2 tab PO Q4H PRN (Reason: pain) 7 Days Qty: 40 0RF Continued dicyclomine 10 mg capsule 10 mg PO QID cholecalciferol (vitamin D3) 1,000 unit capsule 1,000 unit PO QPM cranberry 500 mg capsule 500 mg PO QPM Lactobacillus acidophilus [Acidophilus] Capsule 1 cap PO QAM ferrous sulfate 325 mg (65 mg iron) tablet 325 mg PO DAILY@12 magnesium oxide 400 mg (241.3 mg magnesium) tablet 500 mg PO DAILY@12 furosemide 20 mg tablet 60 mg PO QAM aripiprazole 2 mg tablet 2 mg PO BEDTIME Qty: 30 11RF potassium chloride 8 mEq capsule, extended release 24 meq PO QAM (DME) FreeStyle Tor 2 Sensor Kit See Rx Instructions .MEDSUPPLY Qty: 3 3RF Rx Instructions: As directed (DME) FreeStyle Tor 2 [place] Misc See Rx Instructions .Route Qty: 1 0RF Rx Instructions: As directed esomeprazole magnesium 40 mg capsule,delayed release(DR/EC) 40 mg PO QAM levalbuterol tartrate [Xopenex HFA] 45 mcg/actuation HFA aerosol inhaler 2 inh inhalation Q6H Qty: 15 3RF (DME) pen needle, diabetic [BD Ultra-Fine Mini Pen Needle] 31 gauge x 3/16 needle See Rx Instructions .ROUTE .COMPLEX Qty: 400 3RF Dose Instruction: USE DIRECTED Rx Instructions: QID Mounjaro 2.5 mg/0.5 mL pen injector 2.5 mg SUBCUT Q7D 30 Days Qty: 2 0RF Rx Instructions: take 2.5mg weekly for one month Mounjaro 5 mg/0.5 mL pen injector 5 mg SUBCUT Q7D 30 Days Qty: 2 0RF Rx Instructions: take 5mg weekly for one month Mounjaro 7.5 mg/0.5 mL pen injector 7.5 mg SUBCUT Q7D Qty: 2 1RF Rx Instructions: 7.5mg weekly melatonin 3 mg capsule 3 mg PO DAILY insulin degludec [Tresiba FlexTouch U-200] 200 unit/mL (3 mL) insulin pen 52 unit SUBCUT DAILY Qty: 20 1RF (DME) blood sugar diagnostic Strip See Rx Instructions .Route Qty: 400 3RF Rx Instructions: Check blood sugar 4 times a day. (DME) lancets [Comfort EZ Lancets] 21 gauge misc See Rx Instructions .Route Qty: 400 3RF Rx Instructions: As directed (DME) Easymax 15 test strips Strip See Rx Instructions .Route Qty: 400 3RF Rx Instructions: Check BS 4 times a day. nitroglycerin 0.4 mg tablet, sublingual 0.4 mg sublingual Q5M PRN (Reason: chest pain) 30 Days Qty: 30 3RF Rx Instructions: until response; do not exceed 3 doses per episode valsartan 320 mg tablet 320 mg PO QPM Qty: 90 3RF fluticasone furoate-vilanterol [Breo Ellipta] 100-25 mcg/dose blister with device 1 inh inhalation DAILY Qty: 60 6RF isosorbide mononitrate 120 mg tablet extended release 24 hr 120 mg PO DAILY@12 Qty: 90 3RF amlodipine 2.5 mg tablet 2.5 mg PO DAILY 30 Days Qty: 30 5RF insulin lispro [Humalog KwikPen Insulin] 100 unit/mL insulin pen 28 unit SUBCUT TID 90 Days Qty: 75.6 1RF Rx Instructions: 28 units subcutaneously three times daily; atorvastatin 40 mg tablet 40 mg PO BEDTIME vitamin E 1,000 unit Capsule 1,000 unit PO QAM ascorbic acid (vitamin C) [Vitamin C] 500 mg Tablet,Chewable 500 mg PO QNOON ondansetron 4 mg tablet,disintegrating 4 mg PO Q8H PRN (Reason: nausea and vomiting) Qty: 7 0RF polyethylene glycol 3350 [Miralax] 17 gram/dose Powder 4 g PO DAILY PRN (Reason: Constipation) lactulose 10 gram/15 mL solution 15 ml PO DAILY PRN (Reason: Constipation) hydrocortisone 10 mg tablet 10 mg PO QID Rx Instructions: TAKE 1 TABLET BY MOUTH FOUR TIMES DAILY metolazone 2.5 mg tablet 2.5 mg PO QAM Held clopidogrel 75 mg tablet 75 mg PO QPM Qty: 90 3RF Hold Instructions: Resume on 01/12/24. Discontinued hydrocodone-acetaminophen 10-325 mg tablet 1 tab PO Q6H PRN (Reason: pain) 14 Days Qty: 60 0RF Discharge Orders: Discharge Order (Routine); Ordered 01/11/24 Ordered By: Horace Joya Referrals: [facility] [Other] (You can call this number about meals on wheels. They do have a suggested donation of $4/meal, but will accept what you can pay for the meals if you are interested. ) Discharge Diet: Advance as tolerated Discharge Activity: Limit activity as instructed Patient Instructions: Acute Wound Care (DC), Opioid Safety, Post Anesthesia Care Activity Restrictions/Additional Instructions: Thank you for [facility] for your care! The following is a list of instructions, from your provider, to follow upon your discharge to ensure you have the optimal recovery from your recent injury orsurgery. Follow-up care is a freed part of your treatment and safety. Be sure to make and go to all appointments, and call your doctor if you are having problems. If you do not already have a follow-up appointment made, call Dr. Joya office in the next 1-3 days to make follow up appointment for 2 weeks at [phone]. It is also a good idea to know your test results and keep a list of the medicines you take. Medications will be prescribed for you at your provider's discretion. These medications are to be used as instructed; if they are taken more often that prescribed they will not be refilled early and in most cases will not be refilled at all. > When a refill is needed,you should contact lucina ramirez 2-3 business days before your prescription runs out. Medications will NOT be refilled by soft iron inspector providers after hours! > Many pain medications contain Tylenol (Acetaminophen). Do not consume more than 4,000 mg of Tylenol per day in total with any combination ofmedications. > Pain medications can cause constipation. Please use an over the counter stool softener as directed, while taking pain medications. Consulty our local pharmacist with questions or recommendations on stool softeners. If constipation persists, contact our office or your primary care provider. > While under our care,you are not to receive pain medications or other controlled substances from any other provider unless our office is notified and approves. Any attempts to do so will result in refusal to prescribe any further pain medications and possible dismissal from our practice. ? Your wound and/or dressing should remain clean and dry for 2 days after surgery. On postoperative day 2 (48 hours after your surgery) the dressing (if present) should be removed and it is okay to shower and get the incision wet. Pad dry afterwards. No further dressing should be required from that point on. Do not put any creams or ointments on theincision > It is normal for there to be a small amount of discharge (bloody or blood tinged) present from a surgical wound for the first 1-3days. > The wound should be examined twice a day for signs of infection. Mild redness or bruising is to be expected but indications that an infection maybe starting would include; An increase in redness, swelling, or discharge, a foul odor present around the incision, and/or a fever greater than 101 ?F ? Showering is permitted, however we ask that you do not take a bath, sit in a whirlpool / Jacuzzi, or go swimming for 1 month. For only the first 2 days after surgery, lt wilt be necessary for you to cover your wound/dressing with plastic and tape to keep it dry. ? Walking is essential for the healing process after surgery. We would like you to slowly advance your walking. This should be done on relatively flat clear ground (inside or out) or can be done on a treadmill. Remember this goal does not have to happen all at once, slowly increase your distance and duration. This can be broken into more more than one walk per day as tolerated. Patients who walk as directed after surgery rarely require Physical Therapy. In the unlikely event this issue arises your provider will direct hospital staff to make the appropriate arrangements. ? No lifting over 5 pounds {a gallon of milk) or bending/twisting until further notice. Each of these activities places an unnecessary amount of stress onto the body and can impede the delicate healing process. > Instead of bending at the waist, keep your back straight and bend at the knees. > Instead of twisting your torso, keep your back straight and turn your entire body with your feet. ? You may sleep in any position which makes you comfortable. Many patients find comfort sleeping in a reclining chair. It is not abnormal to have difficulty sleeping for the first several weeks following your surgery. We recommend trying Benadry! or Tylenol PM as directed to help with your sleeping difficulties. Both medications are over the counter and available withoutprescription. ? NO SMOKING!!! Smoking dramatically increases the probability of developing postoperative wound infections. ? Common complaints after lumbar and/or thoracic spine surgery include, but are not limited to: numbness and/or tingling in the legs, pain around the incision and surrounding tissues, muscle spasms, or stiffness of the middle to low back. Contact our office if these symptoms persist or if an acute change occurs. ? No driving for the first 3-5days, and not while taking narcotics until seen at your follow-up appointment and cleared. There are no restrictions for riding on short trips, however if you take a longer trip, arrangements should be made to make regular stops to get out of the vehicle and stretch . ? Swelling is an unfortunate event that will take place with any surgery and is the primary source of your postoperative discomfort. While walking and regular approved activities helps control inflammation, there are additional steps you can take to minimizeswelling. > Place ice over the surgical site and surrounding tissue for twenty minutes, followed by applying a low/medium heat (heating pad) for an additional twenty minutes every 1-2 hours as needed for painrelief. > You may use of over the counter anti-inflammatory medications (Ibuprofen, Motrin, Aleve, Advil, etc) as directed on the package label. These types of medicines wm significantly reduce the amount of discomfort you experience after surgery from swelling. It should be noted that if you have and allergy to any of these medications, or a history of ulcers or kidney disease you should consult you primary care provider prior to starting these medic ations. Discharge Attestations Time Spent in Discharge Care*: less than 30 min Quality Metrics Clinical Quality Measures [ No reported AMI, CVA or VTE this stay] Coding Level of Care Code Acute Code for Chg Fwjona
[2024-01-11 08:51] VITALS: BP 135/63; PULSE 78; RESP 19; TEMP 36.8; O2SAT 99
[2024-01-11] MEDS: insulin glargine 100 units/1 mL 42 UNIT SUBCUT (08:56)
--- NOTE | 2024-01-11 09:11 | PC.CHAP ---
Pastoral Care Encounter/Spiritual Assessment Type of Contact [] Declined shell coremaker visit [] Patient/Family/Request visit [] Outpatient visit [] Follow-up visit [] Physician referral [] Code/Alert [x] Routine visit [] Staff referral [] Actively dying [] Patient sleeping [] Family support [] [] Out of room [] Palliative care [] [] Receiving care in room [] Pre-surgical visit [] Trauma [] Long length of stay [] ICU visit [] Other: Relational/Emotional Strength [x] Patient feels connected with others/family/visitors/staff [] Distress [] Loneliness/isolation [] Abandonment Spirituality of Patient [x] Person of Ignacia [x] Attends Jain of their Ignacia [x] Believes in Prayer [x] Reads Bible or Shinto materials [] There are Spiritual issues to be addressed 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 Interventions [x] Prayer [x] Active listening [] Non-anxious presence [x] Spiritual/emotional support [] Crisis/trauma care [] Spiritual counseling [] Bereavement support [] Provided bereavement packet [] Provided Bible/devotional materials [] Provided toy/stuffed animal, coloring book to patient or family member [] Provided Communion [] Anointing/[place] [] Salvation [x] Completed spiritual assessment [] Other: Impact on Illness or Injury [] Angry [] Fearful [] Anxious [] Often cries [] Exhaustion [] Unable to work [] Unable to attend [employer] [] Unable to walk/stand [] Unable to read [] Unable to drive [] Unable to eat/drink [] Unable to sleep [] Unable to be with family [] Patient intubated [] Other: Summary Time spent with patient 10 min
[2024-01-11 10:32] VITALS: BP 135/63; PULSE 78; RESP 19; TEMP 36.8; O2SAT 99
== END 2024-01-11 10:32 | disposition home health service (06) ==
LOC: MEDSURG 10:27
PROVIDERS: Anesthesiology; Admitting Provider Orthopaedic Surgery; PCP Family Medicine; Visit Provider Orthopaedic Surgery
PROC: (CPT 63005; principal; 2024-01-10 09:15)
DX: M48.062 Spinal stenosis, lumbar region with neurogenic claudication (principal); G47.30 Sleep apnea, unspecified; Z91.199 Patient's noncompliance with other medical treatment and regimen due to unspecified reason; I25.10 Atherosclerotic heart disease of native coronary artery without angina pectoris; I10 Essential (primary) hypertension; E11.9 Type 2 diabetes mellitus without complications; Z79.4 Long term (current) use of insulin; E66.01 Morbid (severe) obesity due to excess calories; Z68.37 Body mass index [BMI] 37.0-37.9, adult
CPT/HCPCS: 63047; 36415; 36416; 72100; 76000; 80048; 82962; 94640; 96372; 97116; 97161; 97530; G0378; J0131; J0330; J0360; J0690; J1100; J1720; J1815; J2405; J2704; J3010; J3490; J7030; J7120; J7512; J7614; J7626; J8499

== ENCOUNTER 2024-01-19 18:44 | Emergency (ER) | payer MEDICARE, OTHER, SELFPAY ==
[2024-01-19 18:45] VITALS: BP 189/72; PULSE 93; RESP 18; TEMP 36.8; O2SAT 94; BMI 37.8
--- NOTE | 2024-01-19 18:51 | W.ED.BACK ---
HPI - Back Pain/Injury General: Stated Complaint: Back Pain Time Seen by Provider: 01/19/24 18:46 Related Data Home Medications Medication Instructions Recorded Confirmed Lactobacillus acidophilus 1 cap PO QAM 06/01/19 01/11/24 (Acidophilus capsule) cholecalciferol (vitamin D3) 25 1,000 unit PO QPM 06/01/19 01/11/24 mcg (1,000 unit) capsule cranberry 500 mg capsule 500 mg PO QPM 06/01/19 01/11/24 dicyclomine 10 mg capsule 10 mg PO QID 06/01/19 01/11/24 ferrous sulfate 325 mg (65 mg 325 mg PO DAILY@06/21/19 01/11/24 iron) tablet atorvastatin 40 mg tablet 40 mg PO BEDTIME 09/06/20 01/11/24 magnesium oxide 400 mg (241.3 mg 500 mg PO DAILY@02/14/21 01/11/24 magnesium) tablet ascorbic acid (vitamin C) 500 mg 500 mg PO QNOON 11/14/21 01/11/24 chewable tablet (Vitamin C) vitamin E 670 mg (1,000 unit) 1,000 unit PO QAM 11/14/21 01/11/24 capsule esomeprazole magnesium 40 mg 40 mg PO QAM 05/19/22 01/11/24 capsule,delayed release furosemide 20 mg tablet 60 mg PO QAM 05/19/22 01/11/24 potassium chloride 8 mEq 24 meq PO QAM 05/19/22 01/11/24 capsule,extended release metolazone 2.5 mg tablet 2.5 mg PO QAM 04/05/23 01/11/24 lactulose 10 gram/15 mL oral 15 ml PO DAILY PRN Constipation 06/23/23 01/11/24 solution polyethylene glycol 3350 17 4 g PO DAILY PRN Constipation 06/23/23 01/11/24 gram/dose oral powder (Miralax) melatonin 3 mg capsule 3 mg PO DAILY 11/18/23 01/11/24 Previous Rx's Medication Instructions Recorded blood sugar diagnostic #400 ea 09/02/21 lancets 21 gauge (Comfort EZ #400 ea 09/02/21 Lancets) blood sugar diagnostic (Easymax 15 #400 ea 09/11/21 test strips) flash glucose scanning reader #1 ea 02/17/22 (FreeStyle Tor 2 [place]) flash glucose sensor (FreeStyle #3 ea 02/17/22 Tor 2 Sensor kit) ondansetron 4 mg disintegrating 4 mg PO Q8H PRN nausea and 04/24/22 tablet vomiting #7 tabs clopidogrel 75 mg tablet 75 mg PO QPM #90 tabs 02/18/23 nitroglycerin 0.4 mg sublingual 0.4 mg sublingual Q5M PRN chest 08/04/23 tablet pain 30 days #30 tabs aripiprazole 2 mg tablet 2 mg PO BEDTIME #30 tabs 08/12/23 pen needle, diabetic 31 gauge x #400 ea 08/12/23 3/16 (BD Ultra-Fine Mini Pen Needle) valsartan 320 mg tablet 320 mg PO QPM #90 tabs 08/30/23 levalbuterol tartrate 45 2 inh inhalation Q6H #15 grams 09/13/23 mcg/actuation aerosol inhaler (Playful Data HFA) fluticasone furoate 100 1 inh inhalation DAILY #60 ea 09/20/23 mcg-vilanterol 25 mcg/dose inhalation powder (Breo Ellipta) isosorbide mononitrate 120 mg 120 mg PO DAILY@12 #90 tabs 09/20/23 tablet,extended release 24 hr amlodipine 2.5 mg tablet 2.5 mg PO DAILY HTN 30 days #30 11/30/23 tabs insulin degludec 200 unit/mL (3 52 unit (0.26 mL) SUBCUT DAILY #20 12/24/23 mL) subcutaneous pen (Tresiba mL FlexTouch U-200 insulin) insulin lispro 100 unit/mL 28 unit (0.28 mL) SUBCUT TID 90 12/28/23 subcutaneous pen (Humalog Pen days #75.6 mL (U-100) Insulin) tirzepatide 2.5 mg/0.5 mL 2.5 mg (0.5 mL) SUBCUT Q7D 1 month 01/05/24 subcutaneous pen injector #2 mL (Mounjaro) tirzepatide 5 mg/0.5 mL 5 mg (0.5 mL) SUBCUT Q7D 1 month 01/05/24 subcutaneous pen injector #2 mL (Mounjaro) tirzepatide 7.5 mg/0.5 mL 7.5 mg (0.5 mL) SUBCUT Q7D #2 mL 01/05/24 subcutaneous pen injector (Mounjaro) hydrocortisone 10 mg tablet See Rx Instructions .Route 01/14/24 .COMPLEX #360 tabs Allergies Allergy/AdvReac Type Severity Reaction Status Date / Time morphine Allergy Severe RESPIRATORY Verified 01/05/24 15:59 DISTRESS doxycycline Allergy Mild THROAT Verified 01/05/24 15:59 SWELLING duloxetine [From Cymbalta] Allergy Mild SWELLING, Verified 01/05/24 15:59 VOMITING metformin Allergy Mild THROAT Verified 01/05/24 15:59 SWELLING oxybutynin [From Oxytrol] Allergy Mild ALGY-Rash Verified 01/05/24 15:59 Penicillins Allergy Mild ALGY-Rash Verified 01/05/24 15:59 Sulfa (Sulfonamide Allergy Mild STOMACH Verified 01/05/24 15:59 Antibiotics) CRAMPS alprazolam [From Xanax] Allergy Unknown Unknown Verified 01/07/24 15:35 amitriptyline Allergy Unknown Unknown Verified 01/05/24 15:59 Barbiturates Allergy Unknown stomach Verified 01/07/24 15:35 cramps cefuroxime [From Ceftin] Allergy Unknown stomach Verified 01/07/24 15:35 cramps insulin detemir Allergy Unknown Unknown Verified 01/05/24 15:59 [From Levemir U-100 Insulin] levofloxacin [From Levaquin] Allergy Unknown Unknown Verified 01/05/24 15:59 liraglutide [From Victoza] Allergy Unknown Unknown Verified 01/05/24 15:59 metoclopramide [From Reglan] Allergy Unknown Unknown Verified 01/05/24 15:59 nitrofurantoin Allergy Unknown Unknown Verified 01/05/24 15:59 [From Macrobid] pregabalin [From Lyrica] Allergy Unknown Unknown Verified 01/05/24 15:59 divalproex sodium Allergy ALGY-Hives Verified 01/05/24 15:59 [From Depakote] gabapentin Allergy bone, Verified 01/05/24 15:59 muscle pain and mood swings venlafaxine Allergy Unknown Verified 01/05/24 15:59 meloxicam AdvReac Severe ADR-Vomitin Verified 01/05/24 15:59 g ciprofloxacin [From Cipro] AdvReac Mild stomach Verified 01/05/24 15:59 upset hydromorphone [From Dilaudid] AdvReac Unknown PT STATES Verified 01/05/24 15:59 IT MAKES ME CRAZY PFSH ED PFSH: Medical History Morbid obesity Leg pain Psychiatric care Psychiatric care 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 Left axis deviation. Normal SD and QRS duration. Dyslipidemia (high LDL; low HDL) Benign essential hypertension with target blood pressure below 140/90 Atherosclerotic heart disease of [place] coronary artery without angina pectoris Status post left heart catheterization Recurrent UTI Gross hematuria Bipolar II disorder Surgical History Hx of bilateral hip replacements Hx of bladder repair surgery History of colonoscopy (~2017) History of coronary artery stent placement History of right knee surgery S/P appendectomy S/P hysterectomy S/P hernia repair S/P hip replacement Family History Family/Other Diabetes Other Cancer Social History Smoking and tobacco/nicotine status: never used tobacco/nicotine Alcohol intake: never Substance/Drug Use: never Household members: spouse Marital status: Current occupational status: retired Discharge Plan Discharge Condition: Stable Prescriptions: No Action dicyclomine 10 mg capsule 10 mg PO QID cholecalciferol (vitamin D3) 1,000 unit capsule 1,000 unit PO QPM cranberry 500 mg capsule 500 mg PO QPM Lactobacillus acidophilus [Acidophilus] Capsule 1 cap PO QAM ferrous sulfate 325 mg (65 mg iron) tablet 325 mg PO DAILY@12 magnesium oxide 400 mg (241.3 mg magnesium) tablet 500 mg PO DAILY@12 furosemide 20 mg tablet 60 mg PO QAM aripiprazole 2 mg tablet 2 mg PO BEDTIME Qty: 30 11RF potassium chloride 8 mEq capsule, extended release 24 meq PO QAM (DME) FreeStyle Tor 2 Sensor Kit See Rx Instructions .MEDSUPPLY Qty: 3 3RF Rx Instructions: As directed (DME) FreeStyle Tor 2 [place] Misc See Rx Instructions .Route Qty: 1 0RF Rx Instructions: As directed esomeprazole magnesium 40 mg capsule,delayed release(DR/EC) 40 mg PO QAM levalbuterol tartrate [Xopenex HFA] 45 mcg/actuation HFA aerosol inhaler 2 inh inhalation Q6H Qty: 15 3RF (DME) pen needle, diabetic [BD Ultra-Fine Mini Pen Needle] 31 gauge x 3/16 needle See Rx Instructions .ROUTE .COMPLEX Qty: 400 3RF Dose Instruction: USE DIRECTED Rx Instructions: QID Mounjaro 2.5 mg/0.5 mL pen injector 2.5 mg SUBCUT Q7D 30 Days Qty: 2 0RF Rx Instructions: take 2.5mg weekly for one month Mounjaro 5 mg/0.5 mL pen injector 5 mg SUBCUT Q7D 30 Days Qty: 2 0RF Rx Instructions: take 5mg weekly for one month Mounjaro 7.5 mg/0.5 mL pen injector 7.5 mg SUBCUT Q7D Qty: 2 1RF Rx Instructions: 7.5mg weekly melatonin 3 mg capsule 3 mg PO DAILY insulin degludec [Tresiba FlexTouch U-200] 200 unit/mL (3 mL) insulin pen 52 unit SUBCUT DAILY Qty: 20 1RF (DME) blood sugar diagnostic Strip See Rx Instructions .Route Qty: 400 3RF Rx Instructions: Check blood sugar 4 times a day. (DME) lancets [Comfort EZ Lancets] 21 gauge misc See Rx Instructions .Route Qty: 400 3RF Rx Instructions: As directed (DME) Easymax 15 test strips Strip See Rx Instructions .Route Qty: 400 3RF Rx Instructions: Check BS 4 times a day. clopidogrel 75 mg tablet 75 mg PO QPM Qty: 90 3RF Hold Instructions: Resume on 01/12/24. nitroglycerin 0.4 mg tablet, sublingual 0.4 mg sublingual Q5M PRN (Reason: chest pain) 30 Days Qty: 30 3RF Rx Instructions: until response; do not exceed 3 doses per episode valsartan 320 mg tablet 320 mg PO QPM Qty: 90 3RF fluticasone furoate-vilanterol [Breo Ellipta] 100-25 mcg/dose blister with device 1 inh inhalation DAILY Qty: 60 6RF isosorbide mononitrate 120 mg tablet extended release 24 hr 120 mg PO DAILY@12 Qty: 90 3RF amlodipine 2.5 mg tablet 2.5 mg PO DAILY 30 Days Qty: 30 5RF insulin lispro [Humalog KwikPen Insulin] 100 unit/mL insulin pen 28 unit SUBCUT TID 90 Days Qty: 75.6 1RF Rx Instructions: 28 units subcutaneously three times daily; hydrocortisone 10 mg tablet See Rx Instructions .ROUTE .COMPLEX Qty: 360 0RF Dose Instruction: TAKE 1 TABLET BY MOUTH FOUR TIMES DAILY Rx Instructions: TAKE 1 TABLET BY MOUTH FOUR TIMES DAILY atorvastatin 40 mg tablet 40 mg PO BEDTIME vitamin E 1,000 unit Capsule 1,000 unit PO QAM ascorbic acid (vitamin C) [Vitamin C] 500 mg Tablet,Chewable 500 mg PO QNOON ondansetron 4 mg tablet,disintegrating 4 mg PO Q8H PRN (Reason: nausea and vomiting) Qty: 7 0RF polyethylene glycol 3350 [Miralax] 17 gram/dose Powder 4 g PO DAILY PRN (Reason: Constipation) lactulose 10 gram/15 mL solution 15 ml PO DAILY PRN (Reason: Constipation) metolazone 2.5 mg tablet 2.5 mg PO QAM Referrals: Arabella Orta MD [Primary Care Provider] - Coding Level of Care Code 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
--- NOTE | 2024-01-19 18:53 | ECG_ITS ---
[facility] Test Date: 2024-01-19 Pat Name: Brandi Berg Department: Room: Gender: Female City B[place]iff: : 1945 Requested By: Birttani Chawla Order Number: [id number] Gamal MD: Gilma Cai M.D. Measurements Intervals [place] Rate: 88 P: 52 ID: [id number] QRS: -30 QRSD: 94 T: 79 QT: 324 QTc: 394 Interpretive Statements SINUS RHYTHM BORDERLINE LEFT AXIS DEVIATION [QRS AXIS < -20] INCOMPLETE RIGHT BUNDLE BRANCH BLOCK [90+ ms QRS DURATION, TERMINAL R IN V1/V2, 40+ ms S IN I/aVL/V4/V5/V6] NONSPECIFIC T-WAVE ABNORMALITY Compared to ECG 08/01/2023 03:00:00 Incomplete right bundle-branch block now present Intraventricular conduction delay no longer present T-wave abnormality still present Electronically Signed On 01-21-2024 18:06:01 CDT by Gilma Cai M.D. [email or web address]
[2024-01-19 18:57] VITALS: BP 189/72; PULSE 87; RESP 16; O2SAT 98
--- NOTE | 2024-01-19 19:05 | XRR_ITS ---
PROCEDURE INFORMATION: Exam: XR Chest Exam date and time: 01/19/2024 7:23 PM Age: 78 years old Clinical indication: Dyspnea; Additional info: left rib pain , difficulty breathing TECHNIQUE: Imaging protocol: Radiologic exam of the chest. Views: 1 view. COMPARISON: CR XR chest 1V portable [id number] 08/01/2023 12:21 AM FINDINGS: Lungs: Emphysematous changes. Mild pulmonary vascular congestion. Bibasilar atelectasis versus minimal infiltrate. Pleural spaces: Unremarkable. No pleural effusion. No pneumothorax. Heart/Mediastinum: Unremarkable. No cardiomegaly. Bones/joints: Unremarkable. XR/XR chest 1V portable [id number] IMPRESSION: 1. Emphysematous changes. 2. Mild pulmonary vascular congestion. 3. Bibasilar atelectasis versus minimal infiltrate.
--- NOTE | 2024-01-19 19:06 | CTR_ITS ---
PROCEDURE INFORMATION: Exam: CT Abdomen And Pelvis With Contrast Exam date and time: 01/19/2024 7:28 PM Age: 78 years old Clinical indication: Abdominal pain; Additional info: L abdominal pain; Post back surgery TECHNIQUE: Imaging protocol: Computed tomography of the abdomen and pelvis with contrast. Radiation optimization: All CT scans at this facility use at least one of these dose optimization techniques: automated exposure control; mA and/or kV adjustment per patient size (includes targeted exams where dose is matched to clinical indication); or iterative reconstruction. Contrast material: OMNI 350; Contrast volume: 100 ml; Contrast route: INTRAVENOUS (IV); COMPARISON: CT pelvis wo con [id number] 10/24/2022 9:36 PM RADIATION DOSE METRICS: Total DLP (mGy-cm): 1147 FINDINGS: Coronary arteries: Coronary artery atherosclerotic calcifications. Liver: Hepatic steatosis. Gallbladder and biliary ducts: Normal. No calcified stones. No ductal dilation. Pancreas: Normal. No ductal dilation. Spleen: Normal. No splenomegaly. Adrenal glands: Normal. No mass. Kidneys and ureters: Normal. No hydronephrosis. Stomach and bowel: Prominent fluid in the small bowel without dilation may reflect an enteritis. Diverticulosis without diverticulitis. Appendix: No evidence of appendicitis. Intraperitoneal space: Unremarkable. No free air. No significant fluid collection. 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 Lymph nodes: Mild edema in the central abdominal mesentery with several prominent subcentimeter lymph nodes may reflect a chronic inflammatory process such as sclerosing mesenteritis. Urinary bladder: Unremarkable as visualized. Reproductive: Unremarkable as visualized. Bones/joints: Bilateral hip arthroplasty changes. Soft tissues: Mild anasarca. CT/CT abdomen pelvis w con* [id number] IMPRESSION: 1. Prominent fluid in the small bowel without dilation may reflect an enteritis. 2. Diverticulosis without diverticulitis. 3. Bilateral hip arthroplasty changes. 4. Mild anasarca. 5. Coronary artery atherosclerotic calcifications. 6. Hepatic steatosis. 7. 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 8. Mild edema in the central abdominal mesentery with several prominent subcentimeter lymph nodes may reflect a chronic inflammatory process such as sclerosing mesenteritis.
--- NOTE | 2024-01-19 19:07 | W.ED.ABDPA2 ---
HPI - Abdominal Pain General: Chief Complaint: Back Pain/Injury Stated Complaint: Back Pain Time Seen by Provider: 01/19/24 18:46 Source: patient Mode of arrival: wheelchair Limitations: no limitations History of Present Illness: Patient is an 78-year-old female presents to ED today for evaluation of left rib pain and abdominal pain. Patient states she underwent an L3-L4 laminectomy and partial facetectomy by Dr. Joya approximately 10 days ago. Patient states following the surgery she had some left rib pain and was told it was most likely positional from the surgery. She states since her discharge pain has continued. She is also complaining of diffuse abdominal pain and constipation. States she feels constipation is from the pain medications-states her had to manually disimpact her at home. She feels like her back from the surgery is actually doing well and improving. No fevers. No leg pain. She states she is chronically short of breath and states she has been told in the past it is from her central obesity. This is at baseline. She states her rib pain is reproducible with movement and palpation. No cough or hemoptysis. No lower extremity swelling or calf pain. MD elicited complaint: abdominal pain and other (rib pain) Onset (ago): day(s) Pain Consistency: constant Severity: moderate Migration to: no migration Relieving factors: nothing Context: recent surgery/procedure Associated Symptoms: Reports constipation; Denies chills, dysuria, fever(s), nausea, syncope and vomiting Related Data Home Medications Medication Instructions Recorded Confirmed Lactobacillus acidophilus 1 cap PO QAM 06/01/19 01/11/24 (Acidophilus capsule) cholecalciferol (vitamin D3) 25 1,000 unit PO QPM 06/01/19 01/11/24 mcg (1,000 unit) capsule cranberry 500 mg capsule 500 mg PO QPM 06/01/19 01/11/24 dicyclomine 10 mg capsule 10 mg PO QID 06/01/19 01/11/24 ferrous sulfate 325 mg (65 mg 325 mg PO DAILY@06/21/19 01/11/24 iron) tablet atorvastatin 40 mg tablet 40 mg PO BEDTIME 09/06/20 01/11/24 magnesium oxide 400 mg (241.3 mg 500 mg PO DAILY@02/14/21 01/11/24 magnesium) tablet ascorbic acid (vitamin C) 500 mg 500 mg PO QNOON 11/14/21 01/11/24 chewable tablet (Vitamin C) vitamin E 670 mg (1,000 unit) 1,000 unit PO QAM 11/14/21 01/11/24 capsule esomeprazole magnesium 40 mg 40 mg PO QAM 05/19/22 01/11/24 capsule,delayed release furosemide 20 mg tablet 60 mg PO QAM 05/19/22 01/11/24 potassium chloride 8 mEq 24 meq PO QAM 05/19/22 01/11/24 capsule,extended release metolazone 2.5 mg tablet 2.5 mg PO QAM 04/05/23 01/11/24 lactulose 10 gram/15 mL oral 15 ml PO DAILY PRN Constipation 06/23/23 01/11/24 solution polyethylene glycol 3350 17 4 g PO DAILY PRN Constipation 06/23/23 01/11/24 gram/dose oral powder (Miralax) melatonin 3 mg capsule 3 mg PO DAILY 11/18/23 01/11/24 Previous Rx's Medication Instructions Recorded blood sugar diagnostic #400 ea 09/02/21 lancets 21 gauge (Comfort EZ #400 ea 09/02/21 Lancets) blood sugar diagnostic (Easymax 15 #400 ea 09/11/21 test strips) flash glucose scanning reader #1 ea 02/17/22 (FreeStyle Tor 2 [place]) flash glucose sensor (FreeStyle #3 ea 02/17/22 Tor 2 Sensor kit) ondansetron 4 mg disintegrating 4 mg PO Q8H PRN nausea and 04/24/22 tablet vomiting #7 tabs clopidogrel 75 mg tablet 75 mg PO QPM #90 tabs 02/18/23 nitroglycerin 0.4 mg sublingual 0.4 mg sublingual Q5M PRN chest 08/04/23 tablet pain 30 days #30 tabs aripiprazole 2 mg tablet 2 mg PO BEDTIME #30 tabs 08/12/23 pen needle, diabetic 31 gauge x #400 ea 08/12/2308/06 (BD Ultra-Fine Mini Pen Needle) valsartan 320 mg tablet 320 mg PO QPM #90 tabs 08/30/23 levalbuterol tartrate 45 2 inh inhalation Q6H #15 grams 09/13/23 mcg/actuation aerosol inhaler (Xopenex HFA) fluticasone furoate 100 1 inh inhalation DAILY #60 ea 09/20/23 mcg-vilanterol 25 mcg/dose inhalation powder (Breo Ellipta) isosorbide mononitrate 120 mg 120 mg PO DAILY@12 #90 tabs 09/20/23 tablet,extended release 24 hr amlodipine 2.5 mg tablet 2.5 mg PO DAILY HTN 30 days #30 11/30/23 tabs insulin degludec 200 unit/mL (3 52 unit (0.26 mL) SUBCUT DAILY #20 12/24/23 mL) subcutaneous pen (Tresiba mL FlexTouch U-200 insulin) insulin lispro 100 unit/mL 28 unit (0.28 mL) SUBCUT TID 90 12/28/23 subcutaneous pen (Humalog #75.6 mL (U-100) Insulin) tirzepatide 2.5 mg/0.5 mL 2.5 mg (0.5 mL) SUBCUT Q7D 1 month 01/05/24 subcutaneous pen injector #2 mL (Mounjaro) tirzepatide 5 mg/0.5 mL 5 mg (0.5 mL) SUBCUT Q7D 1 month 01/05/24 subcutaneous pen injector #2 mL (Mounjaro) tirzepatide 7.5 mg/0.5 mL 7.5 mg (0.5 mL) SUBCUT Q7D #2 mL 01/05/24 subcutaneous pen injector (Mounjaro) hydrocortisone 10 mg tablet See Rx Instructions .Route 01/14/24 .COMPLEX #360 tabs ciprofloxacin HCl 500 mg tablet 500 mg PO Q12H #14 tabs 01/19/24 (Cipro) Allergies Allergy/AdvReac Type Severity Reaction Status Date / Time morphine Allergy Severe RESPIRATORY Verified 01/05/24 15:59 DISTRESS doxycycline Allergy Mild THROAT Verified 01/05/24 15:59 SWELLING duloxetine [From Cymbalta] Allergy Mild SWELLING, Verified 01/05/24 15:59 VOMITING metformin Allergy Mild THROAT Verified 01/05/24 15:59 SWELLING oxybutynin [From Oxytrol] Allergy Mild ALGY-Rash Verified 01/05/24 15:59 Penicillins Allergy Mild ALGY-Rash Verified 01/05/24 15:59 Sulfa (Sulfonamide Allergy Mild STOMACH Verified 01/05/24 15:59 Antibiotics) CRAMPS alprazolam [From Xanax] Allergy Unknown Unknown Verified 01/07/24 15:35 amitriptyline Allergy Unknown Unknown Verified 01/05/24 15:59 Barbiturates Allergy Unknown stomach Verified 01/07/24 15:35 cramps cefuroxime [From Ceftin] Allergy Unknown stomach Verified 01/07/24 15:35 cramps insulin detemir Allergy Unknown Unknown Verified 01/05/24 15:59 [From Levemir U-100 Insulin] levofloxacin [From Levaquin] Allergy Unknown Unknown Verified 01/05/24 15:59 liraglutide [From Victoza] Allergy Unknown Unknown Verified 01/05/24 15:59 metoclopramide [From Reglan] Allergy Unknown Unknown Verified 01/05/24 15:59 nitrofurantoin Allergy Unknown Unknown Verified 01/05/24 15:59 [From Macrobid] pregabalin [From Lyrica] Allergy Unknown Unknown Verified 01/05/24 15:59 divalproex sodium Allergy ALGY-Hives Verified 01/05/24 15:59 [From Depakote] gabapentin Allergy bone, Verified 01/05/24 15:59 muscle pain and mood swings venlafaxine Allergy Unknown Verified 01/05/24 15:59 meloxicam AdvReac Severe ADR-Vomitin Verified 01/05/24 15:59 g ciprofloxacin [From Cipro] AdvReac Mild stomach Verified 01/05/24 15:59 upset hydromorphone [From Dilaudid] AdvReac Unknown PT STATES Verified 01/05/24 15:59 IT MAKES ME CRAZY Review of Systems Const: Denies: fever(s), chills, body aches, fatigue or malaise Card: Reports: chest pain (L rib pain); Denies: palpitations, irregular heart rhythm, edema, lightheadedness, syncope, pre-syncope, leg pain with exertion or acrocyanosis Resp: Reports: dyspnea (chronic-at baseline) and pain on inspiration; Denies: wheezing, stridor, hemoptysis or chest congestion GI: Reports: abdominal pain and constipation; Denies: nausea or vomiting : Denies: flank pain, difficulty voiding, dysuria, urinary frequency, urinary urgency or urinary hesitancy Musc: Reports: back pain (improving since surgery); Denies: neck pain, extremity pain, extremity swelling, joint pain or joint swelling Neuro: Denies: numbness in extremities, weakness in extremities or sensory changes PFSH ED PFSH: Medical History Morbid obesity Leg pain Psychiatric care Psychiatric care 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 Left axis deviation. Normal MA and QRS duration. Dyslipidemia (high LDL; low HDL) Benign essential hypertension with target blood pressure below 140/90 Atherosclerotic heart disease of [place] coronary artery without angina pectoris Status post left heart catheterization Recurrent UTI Gross hematuria Bipolar II disorder Surgical History Hx of bilateral hip replacements Hx of bladder repair surgery History of colonoscopy (~2017) History of coronary artery stent placement History of right knee surgery S/P appendectomy S/P hysterectomy S/P hernia repair S/P hip replacement Family History Family/Other Diabetes Other Cancer Social History Smoking and tobacco/nicotine status: never used tobacco/nicotine Alcohol intake: never Substance/Drug Use: never Household members: spouse Marital status: Current occupational status: retired Physical Exam Const: COMMON NORMALS: no acute distress, no limitations, alert and well nourished GENERAL APPEARANCE: cooperative NUTRITIONAL APPEARANCE: obese ORIENTATION/CONSCIOUSNESS: Yes awake, Yes oriented to person, Yes oriented to place and Yes oriented to time Neck/C-Spine: GENERAL: Yes normal visual inspection Chest: COMMONS NORMALS: normal inspection of the chest OTHER: TTP L anteriolateral lower ribs; no crepitus; normal lung sounds Resp: COMMON NORMALS: normal respiratory effort and clear to auscultation bilaterally AUSCULTATION: clear to auscultation bilaterally Cardio: COMMON NORMALS: regular rate and regular rhythm RATE: regular rate RHYTHM: regular rhythm GI: INSPECTION: Yes normal to inspection and Yes central obesity AUSCULTATION: Yes normoactive bowel sounds PALPATION: Yes Tenderness to palpation present (GI) (diffusely), No Guarding due to palpation present (GI) and No Rigid due to palpation OTHER: exam hindered by body habitus : COMMON NORMALS: Yes no CVA tenderness BLADDER/KIDNEY EXAM: Yes no CVA tenderness Back/Pelvis: COMMON NORMALS: no CVA tenderness OTHER: surgical incision appears clean/well healing without infection Extremity: COMMON NORMALS: no clubbing, cyanosis or edema, no calf tenderness and no pedal edema GENERAL: Yes normal exam except as noted Neuro: SENSORIUM/ORIENTATION: Yes alert, Yes oriented to person, Yes oriented to place and Yes oriented to time Course Vital Signs: Vital signs: Vital Signs Temperature 98.2 F 01/19/24 18:45 Pulse Rate 87 01/19/24 18:57 Respiratory Rate 16 01/19/24 18:57 Blood Pressure 189/72 01/19/24 18:57 Pulse Oximetry 98 01/19/24 18:57 Oxygen Delivery Me thod Room Air 01/19/24 18:57 MDM - Abdominal Pain Medical Decision Making Patient is an 78-year-old female here for left rib pain and diffuse abdominal pain. Patient states she had the rib pain following surgery and this has continued. Pain is worse with movement, palpation, coughing/sneezing. It is reproducible on exam. EKG was performed here and unremarkable. I do not have any suspicion for cardiac etiology. Her CXR does show bibasilar atelectasis versus infiltrate. Blood work overall is unremarkable. She is a chronically uncontrolled diabetic. UA slightly suspicious for infection with 2+ leukocyte estrace and 6-10 WBCs. She did complain of dysuria and frequency when I re-questioned her at discharge. CT scan ordered secondary to her abdominal pain. Several incidental findings. Possible enteritis. After abdominal pain most likely secondary to constipation from pain medication. Will go ahead and place her on antibiotics for the possible UTI/pneumonia. She states she has follow-up with her primary care tomorrow that I encouraged she keep. Return precautions given. Lab Data 01/19/24 19:13 01/19/24 19:13 Labs/Radiology: Radiology Impressions Chest X-Ray 01/19/24 19:05 IMPRESSION: 1. Emphysematous changes. 2. Mild pulmonary vascular congestion. 3. Bibasilar atelectasis versus minimal infiltrate. Abdomen/Pelvis CT 01/19/24 19:06 IMPRESSION: 1. Prominent fluid in the small bowel without dilation may reflect an enteritis. 2. Diverticulosis without diverticulitis. 3. Bilateral hip arthroplasty changes. 4. Mild anasarca. 5. Coronary artery atherosclerotic calcifications. 6. Hepatic steatosis. 7. 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 8. Mild edema in the central abdominal mesentery with several prominent subcentimeter lymph nodes may reflect a chronic inflammatory process such as sclerosing mesenteritis. Laboratory Results WBC 7.55 10^3/uL (3.29-11.43) 01/19/24 19:13 RBC 4.18 10^6/uL (3.85-5.65) 01/19/24 19:13 Hgb 12.30 g/dL (11.27-16.99) 01/19/24 19:13 Hct 37.5 % (36-47) 01/19/24 19:13 MCV 89.7 fl (85-98) 01/19/24 19:13 MCH 29.4 pg (27-33) 01/19/24 19:13 MCHC 32.8 g/dL (30-55) 01/19/24 19:13 RDW 13.4 % (12.1-15.1) 01/19/24 19:13 Plt Count 266 10^3/cmm (157-399) 01/19/24 19:13 MPV 9.4 fL (7.4-10.4) 01/19/24 19:13 Neut % (Auto) 66.4 % 01/19/24 19:13 Lymph % (Auto) 16.7 % 01/19/24 19:13 [place] % (Auto) 8.9 % 01/19/24 19:13 Eos % (Auto) 7.0 % 01/19/24 19:13 Baso % (Auto) 0.5 % 01/19/24 19:13 Neut # (Auto) 5.01 10^3/uL (1.8-7.7) 01/19/24 19:13 Lymph # (Auto) 1.3 10^3/uL (0.8-4.8) 01/19/24 19:13 [place] # (Auto) 0.7 10^3/uL (0.2-0.9) 01/19/24 19:13 Eos # (Auto) 0.5 10^3/uL (0.0-0.8) 01/19/24 19:13 Baso # (Auto) 0.0 10^3/uL (0.0-0.1) 01/19/24 19:13 Nucleated RBC % (auto) 0 % 01/19/24 19:13 Nucleated RBCs # 0.0 /100WBC 01/19/24 19:13 Sodium 131 mmol/L (136-145) L 01/19/24 19:13 Potassium 4.2 mmol/L (3.5-5.1) 01/19/24 19:13 Chloride 90 mmol/L (98-107) L 01/19/24 19:13 Carbon Dioxide 29 mmol/L (22-29) 01/19/24 19:13 Anion Gap 16.2 (5-19) 01/19/24 19:13 BUN 14 mg/dL (8-23) 01/19/24 19:13 Creatinine 0.7 mg/dL (0.5-0.9) 01/19/24 19:13 GFR Calculation Not Reportable 01/19/24 19:13 Glucose 280 mg/dL (65-115) H 01/19/24 19:13 Calculated Osmolality 283 mOsm/kg (285-295) L 01/19/24 19:13 Calcium 10.4 mg/dL (8.5-10.5) 01/19/24 19:13 Total Bilirubin 0.4 mg/dL (0.15-1.2) 01/19/24 19:13 AST 15 U/L (0-32) 01/19/24 19:13 ALT 20 U/L (0-33) 01/19/24 19:13 Alkaline Phosphatase 211 U/L (35-105) H 01/19/24 19:13 Total Protein 7.6 g/dL (6.6-8.7) 01/19/24 19:13 Albumin 4.2 g/dL (3.5-5.2) 01/19/24 19:13 Globulin 3.4 g/dL (1.3-4.6) 01/19/24 19:13 Lipase 12 U/L (13-60) L 01/19/24 19:13 Urine Color Yellow (Yellow) 01/19/24 19:13 Urine Appearance Clear (CLEAR) 01/19/24 19:13 Urine pH 7.5 (5-7) 01/19/24 19:13 Ur Specific [place] 1.006 (1.005-1.030) 01/19/24 19:13 Urine Protein Negative (Negative) 01/19/24 19:13 Urine Glucose (UA) 1+ (Normal) H 01/19/24 19:13 Urine Ketones Negative (Negative) 01/19/24 19:13 Urine Blood Negative (Negative) 01/19/24 19:13 Urine Nitrate Negative (Negative) 01/19/24 19:13 Urine Bilirubin Negative (Negative) 01/19/24 19:13 Urine Urobilinogen 0.2 mg/dL (Negative) 01/19/24 19:13 Ur Leukocyte Esterase 2+ (Negative) A 01/19/24 19:13 Urine RBC 0-2 /hpf (0-2) 01/19/24 19:13 Urine WBC 6-10 /hpf (0-5) 01/19/24 19:13 Ur Squamous Epith Cells 0-5 /hpf (0-5) 01/19/24 19:13 Amorphous Sediment Not Reportable 01/19/24 19:13 Urine Bacteria None seen /hpf (NONE) 01/19/24 19:13 Hyaline Casts 0-4 /lpf H 01/19/24 19:13 All radiology interpretation(s) finalized by discharge Discharge Plan Discharge Patient Disposition: Home Clinical Impression: Rib pain on left side Constipation Qualifiers: Constipation type: drug induced constipation Qualified Code(s): K59.03 - Drug induced constipation Abdominal pain Qualifiers: Abdominal location: generalized Qualified Code(s): R10.84 - Generalized abdominal pain Condition: Stable Prescriptions: New Cipro 500 mg tablet 500 mg PO Q12H Qty: 14 0RF No Action dicyclomine 10 mg capsule 10 mg PO QID cholecalciferol (vitamin D3) 1,000 unit capsule 1,000 unit PO QPM cranberry 500 mg capsule 500 mg PO QPM Lactobacillus acidophilus [Acidophilus] Capsule 1 cap PO QAM ferrous sulfate 325 mg (65 mg iron) tablet 325 mg PO DAILY@12 magnesium oxide 400 mg (241.3 mg magnesium) tablet 500 mg PO DAILY@12 furosemide 20 mg tablet 60 mg PO QAM aripiprazole 2 mg tablet 2 mg PO BEDTIME Qty: 30 11RF potassium chloride 8 mEq capsule, extended release 24 meq PO QAM (DME) FreeStyle Tor 2 Sensor Kit See Rx Instructions .MEDSUPPLY Qty: 3 3RF Rx Instructions: As directed (DME) FreeStyle Tor 2 [place] Misc See Rx Instructions .Route Qty: 1 0RF Rx Instructions: As directed esomeprazole magnesium 40 mg capsule,delayed release(DR/EC) 40 mg PO QAM levalbuterol tartrate [Xopenex HFA] 45 mcg/actuation HFA aerosol inhaler 2 inh inhalation Q6H Qty: 15 3RF (DME) pen needle, diabetic [BD Ultra-Fine Mini Pen Needle] 31 gauge x 3/16 needle See Rx Instructions .ROUTE .COMPLEX Qty: 400 3RF Dose Instruction: USE DIRECTED Rx Instructions: QID Mounjaro 2.5 mg/0.5 mL pen injector 2.5 mg SUBCUT Q7D 30 Days Qty: 2 0RF Rx Instructions: take 2.5mg weekly for one month Mounjaro 5 mg/0.5 mL pen injector 5 mg SUBCUT Q7D 30 Days Qty: 2 0RF Rx Instructions: take 5mg weekly for one month Mounjaro 7.5 mg/0.5 mL pen injector 7.5 mg SUBCUT Q7D Qty: 2 1RF Rx Instructions: 7.5mg weekly melatonin 3 mg capsule 3 mg PO DAILY insulin degludec [Tresiba FlexTouch U-200] 200 unit/mL (3 mL) insulin pen 52 unit SUBCUT DAILY Qty: 20 1RF (DME) blood sugar diagnostic Strip See Rx Instructions .Route Qty: 400 3RF Rx Instructions: Check blood sugar 4 times a day. (DME) lancets [Comfort EZ Lancets] 21 gauge misc See Rx Instructions .Route Qty: 400 3RF Rx Instructions: As directed (DME) Easymax 15 test strips Strip See Rx Instructions .Route Qty: 400 3RF Rx Instructions: Check BS 4 times a day. clopidogrel 75 mg tablet 75 mg PO QPM Qty: 90 3RF Hold Instructions: Resume on 01/12/24. nitroglycerin 0.4 mg tablet, sublingual 0.4 mg sublingual Q5M PRN (Reason: chest pain) 30 Days Qty: 30 3RF Rx Instructions: until response; do not exceed 3 doses per episode valsartan 320 mg tablet 320 mg PO QPM Qty: 90 3RF fluticasone furoate-vilanterol [Breo Ellipta] 100-25 mcg/dose blister with device 1 inh inhalation DAILY Qty: 60 6RF isosorbide mononitrate 120 mg tablet extended release 24 hr 120 mg PO DAILY@12 Qty: 90 3RF amlodipine 2.5 mg tablet 2.5 mg PO DAILY 30 Days Qty: 30 5RF insulin lispro [Humalog KwikPen Insulin] 100 unit/mL insulin pen 28 unit SUBCUT TID 90 Days Qty: 75.6 1RF Rx Instructions: 28 units subcutaneously three times daily; hydrocortisone 10 mg tablet See Rx Instructions .ROUTE .COMPLEX Qty: 360 0RF Dose Instruction: TAKE 1 TABLET BY MOUTH FOUR TIMES DAILY Rx Instructions: TAKE 1 TABLET BY MOUTH FOUR TIMES DAILY atorvastatin 40 mg tablet 40 mg PO BEDTIME vitamin E 1,000 unit Capsule 1,000 unit PO QAM ascorbic acid (vitamin C) [Vitamin C] 500 mg Tablet,Chewable 500 mg PO QNOON ondansetron 4 mg tablet,disintegrating 4 mg PO Q8H PRN (Reason: nausea and vomiting) Qty: 7 0RF polyethylene glycol 3350 [Miralax] 17 gram/dose Powder 4 g PO DAILY PRN (Reason: Constipation) lactulose 10 gram/15 mL solution 15 ml PO DAILY PRN (Reason: Constipation) metolazone 2.5 mg tablet 2.5 mg PO QAM Discharge Orders: Discharge ED (Routine); Ordered 01/19/24 Ordered By: Brittani Chawla Referrals: Arabella Orta MD [Primary Care Provider] - Activity Restrictions/Additional Instructions: As we discussed I would like you to follow-up with your primary care provider tomorrow as scheduled. Please follow-up with Dr. Joya as well as scheduled. We will place you on antibiotics for your possible pneumonia and UTI. You may return to the emergency department for worsening abdominal pain, repetitive episodes of vomiting, severe chest pain, shortness of breath, difficulty breathing, fevers, generally feeling worse or unwell, or any other concerns you may have. 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
[2024-01-19 19:17] LABS: Charge for UA Resulting for Rev
[2024-01-19 19:27] LABS: Basophils % 0.5 %; Bilirubin Urine Negative (Negative); Blood Urine Negative (Negative); Eosinophils # 0.5 10^3/uL (0.0-0.8); Glucose Urine UA 1+ (Normal); Hematocrit 37.5 % (36-47); Ketones Urine Negative (Negative); Leukocyte Esterase Urine 2+ (Negative); Lymphocytes # 1.3 10^3/uL (0.8-4.8); Lymphocytes % 16.7 %; Mean Corpuscular HGB Conc 32.8 g/dL (30-55); Mean Corpuscular Hemoglobin 29.4 pg (27-33); Mean Corpuscular Volume 89.7 fl (85-98); Mean Platelet Volume 9.4 fL (7.4-10.4); Monocytes # 0.7 10^3/uL (0.2-0.9); Monocytes % 8.9 %; Neutrophils # 5.01 10^3/uL (1.8-7.7); Neutrophils % 66.4 %; Nitrate Urine Negative (Negative); Nucleated Red Blood Cells % 0 %; Platelet Count 266 10^3/cmm (157-399); Protein Urine Negative (Negative); Red Blood Count 4.18 10^6/uL (3.85-5.65); Red Cell Distribution Width 13.4 % (12.1-15.1); Specific Gravity, Urine 1.006 (1.005-1.030); Urine Appearance Clear (CLEAR); Urine Color Yellow (Yellow); Urobilinogen Urine 0.2 mg/dL (Negative); White Blood Count 7.55 10^3/uL (3.29-11.43); pH Urine 7.5 (5-7)
[2024-01-19] MEDS: iohexol 350 mg/mL 500 mL Btl (per mL) IV (19:31)
[2024-01-19 19:40] LABS: Bacteria Urine None Seen /hpf; Hyaline Casts Urine 0-4 /lpf; RBC Urine 0-2 /hpf (0-2); Squamous Epithelial Cell Urine 0-5 /hpf (0-5)
[2024-01-19] MEDS: HYDROcodone-acetaminophen 5-325 mg Tablet 1 TAB PO (19:45)
[2024-01-19 19:47] LABS: Alanine Aminotransferase 20 U/L (0-33); Albumin Level 4.2 g/dL (3.5-5.2); Alkaline Phosphatase 211 U/L (35-105); Anion Gap 16.2 (5-19); Aspartate Amino Transferase 15 U/L (0-32); Blood Urea Nitrogen 14 mg/dL (8-23); Calcium 10.4 mg/dL (8.5-10.5); Carbon Dioxide 29 mmol/L (22-29); Chloride 90 mmol/L (98-107); Globulin 3.4 g/dL (1.3-4.6); Glucose 280 mg/dL (65-115); Lipase 12 U/L (13-60); Osmolality Calculated 283 mOsm/kg (285-295); Potassium 4.2 mmol/L (3.5-5.1); Sodium 131 mmol/L (136-145); Total Bilirubin 0.4 mg/dL (0.15-1.2); Total Protein 7.6 g/dL (6.6-8.7)
[2024-01-19 20:03] LABS: Add Urine Culture? No
[2024-01-19] MEDS: cefTRIAXone 1,000 MG in water for injection-sterile 2.1 ML 2.1 MG IM (20:29)
[2024-01-19 20:46] VITALS: BP 147/80; PULSE 78; RESP 16; O2SAT 98
== END 2024-01-19 20:47 | disposition home or self-care (01) ==
PROVIDERS: Emergency Provider Physician Assistant; PCP Family Medicine
DX: K59.03 Drug induced constipation (principal); R10.84 Generalized abdominal pain; R07.81 Pleurodynia; Z79.4 Long term (current) use of insulin; Z79.85 Long-term (current) use of injectable non-insulin antidiabetic drugs; Z79.02 Long term (current) use of antithrombotics/antiplatelets; E78.5 Hyperlipidemia, unspecified; I10 Essential (primary) hypertension; I25.10 Atherosclerotic heart disease of native coronary artery without angina pectoris
CPT/HCPCS: 71045; 74177; 80053; 81003; 81015; 83690; 85025; 93005; 99285; J0696; Q9967

== ENCOUNTER → 2024-01-25 08:28 | Outpatient (BNVA) | payer MEDICARE, OTHER, SELFPAY | PROVIDERS: PCP Family Medicine; Visit Provider Orthopaedic Surgery | DX: Z98.890 Other specified postprocedural states (principal) | CPT/HCPCS: 99024 ==

== ENCOUNTER 2024-01-27 13:39 | Outpatient (CLI) | payer MEDICARE, OTHER, SELFPAY ==
--- NOTE | 2024-01-27 13:46 | MR_ITS ---
WS: [id number] MRI HEAD WITHOUT CONTRAST TECHNIQUE: Sagittal T1, T2 axial, T2 axial FLAIR, axial and coronal T1 images, axial susceptibility w eighted imaging, axial diffusion weighted images, and coronal T2 images were obtained. CLINICAL INFORMATION: BENIGN NEOPLASM OF MENINGES, UNSPECIFIED COMPARISON: MRI 12/11/2022 and additional MRIs 2019, 2020, 2021. FINDINGS: No evidence of restricted diffusion to suggest acute ischemia. Ventricular system and basilar cistern s are patent. Mild small vessel changes. Moderate parenchymal volume loss. Volume loss worse in the p arietal lobes. Tiny chronic lacunar infarct RIGHT cerebellum. Normal vascular flow voids at the skull base. No extra-axial fluid collections. No evidence of mass or mass effect. Incidental prominent per ivascular spaces in the LEFT greater than RIGHT basal ganglia. Paranasal sinuses and mastoid air cell s are well aerated. Normal posterior nasopharynx. Mild symmetric atrophy temporal lobes and hippocampal formations. [place] l optic chiasm and pituitary infundibulum. No hemosiderin on the susceptibility weighted images. MR/MR head wo con* [id number] IMPRESSION: 1. Previously described subcentimeter meningiomas cannot be assessed and are n ot visualized without gadolinium. 2. Tiny chronic lacunar infarct RIGHT cerebellum. 3. No hemosiderin on susceptibility-weighted images. 4. Mild small vessel changes with moderate parenchymal volume loss worse in th e parietal lobes similar to previous. 5. No other acute findings.
== END 2024-01-27 13:40 | disposition home or self-care (01) ==
LOC: RAD 13:40
PROVIDERS: PCP Family Medicine; Visit Provider Family Medicine
DX: D32.9 Benign neoplasm of meninges, unspecified (principal); G31.89 Other specified degenerative diseases of nervous system
CPT/HCPCS: 70551

== ENCOUNTER 2024-02-03 15:15 | Outpatient (CLI) | payer MEDICARE, OTHER, SELFPAY ==
[2024-02-03 16:29] LABS: Anion Gap 16.5 (5-19); Blood Urea Nitrogen 15 mg/dL (8-23); Calcium 10.1 mg/dL (8.5-10.5); Carbon Dioxide 26 mmol/L (22-29); Chloride 88 mmol/L (98-107); Glucose 200 mg/dL (65-115); Osmolality Calculated 268 mOsm/kg (285-295); Potassium 4.5 mmol/L (3.5-5.1); Sodium 126 mmol/L (136-145)
== END 2024-02-03 15:16 | disposition home or self-care (01) ==
LOC: LAB 15:16
PROVIDERS: PCP Family Medicine; Visit Provider Family Medicine
DX: E87.1 Hypo-osmolality and hyponatremia (principal)
CPT/HCPCS: 80048

== ENCOUNTER → 2024-02-09 14:42 | Outpatient (BNVA) | payer MEDICARE, OTHER, SELFPAY | PROVIDERS: PCP Family Medicine; Visit Provider Podiatrist Foot & Ankle Surgery | DX: L84 Corns and callosities (principal); E11.42 Type 2 diabetes mellitus with diabetic polyneuropathy; L60.3 Nail dystrophy; I73.9 Peripheral vascular disease, unspecified; Z79.4 Long term (current) use of insulin | CPT/HCPCS: 11056; 11721 ==

== ENCOUNTER 2024-02-15 14:20 | Outpatient (CLI) | payer MEDICARE, OTHER, SELFPAY ==
[2024-02-15 15:15] LABS: Anion Gap 14.6 (5-19); Blood Urea Nitrogen 14 mg/dL (8-23); Calcium 10.2 mg/dL (8.5-10.5); Carbon Dioxide 29 mmol/L (22-29); Chloride 83 mmol/L (98-107); Glucose 178 mg/dL (65-115); Osmolality Calculated 259 mOsm/kg (285-295); Potassium 4.6 mmol/L (3.5-5.1); Sodium 122 mmol/L (136-145)
== END 2024-02-15 14:21 | disposition home or self-care (01) ==
LOC: LAB 14:22
PROVIDERS: PCP Family Medicine; Visit Provider Family Medicine
DX: E87.1 Hypo-osmolality and hyponatremia (principal)
CPT/HCPCS: 36415; 80048

== ENCOUNTER 2024-02-18 20:07 | Inpatient (IN) | payer MEDICARE, OTHER, SELFPAY ==
[2024-02-18] VITALS (7 sets, daily range): BP systolic 146–172; BP diastolic 36–68; PULSE 89–96; RESP 16–20; TEMP 36.7–36.9; O2SAT 96–98; BMI 37.4; BMI 37.9
--- NOTE | 2024-02-18 20:18 | ED_ITS ---
HPI - Weakness 2 General: Chief complaint: Weakness Stated complaint: WEAKNESS Time Seen by Provider: 02/18/24 20:18 History of Present Illness: 78-year-old female comes in today with g eneralized weakness. Patient is important increasing weakness over the last month. Patient states that she has been being monitored by her physician. Patient was called today after having blood work done yesterday by primary care and was told to stop taking her diuretic and go to the ER if she felt worse. Patient now has a presented to the ER with persistent weakness and not feeling well. Patient denies any nausea or vomiting. Patient reports her blood glucose ranges up to 250. Patient reports no pain or headache at this time. Patient does endorse headaches over the last month. 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 Left axis deviation. Normal NC and QRS duration. Dyslipidemia (high LDL; low HDL) Benign essential hypertension with target blood pressure below 140/90 Atherosclerotic heart disease of [place] coronary artery without angina pectoris Status post left heart catheterization Recurrent UTI Gross hematuria Bipolar II disorder Surgical History Hx of bilateral hip replacements Hx of bladder repair surgery History of colonoscopy (~2018) History of coronary artery stent placement History of right knee surgery S/P appendectomy S/P hysterectomy S/P hernia repair S/P hip replacement Family History Family/Other Diabetes Other Cancer Social History Smoking and tobacco/nicotine status: unknown if used tobacco/nicotine Alcohol intake: never Substance/Drug Use: never Household members: spouse Marital status: Current occupational status: retired Physical Exam 2 Const: COMMON NORMALS: alert HENMT: COMMON NORMALS: normocephalic HEAD & SCALP: normocephalic Neck/C-Spine: COMMON NORMALS: full ROM Resp: COMMON NORMALS: normal respiratory effort and clear to auscultation bilaterally AUSCULTATION: clear to auscultation bilaterally Cardio: COMMON NORMALS: regular rate RATE: regular rate GI: COMMON NORMALS: Soft to palpation PALPATION: Yes Soft to palpation Extremity: NARRATIVE EXTREMITY EXAM: Bilateral lower extremity edema Neuro: SENSORIUM/ORIENTATION: Yes alert Skin: NARRATIVE SKIN EXAM: Rashawn skin to lower extremities secondary to edema Course 2 Vital Signs: Vital signs: Vital Signs Temperature 98.0 F 02/18/24 20:08 Pulse Rate 96 02/18/24 20:54 Respiratory Rate 18 02/18/24 20:08 Blood Pressure 172/45 02/18/24 20:54 Pulse Oximetry 98 02/18/24 20:54 Oxygen Delivery Me thod Room Air 02/18/24 20:54 MDM - Weakness Medical Decision Making 78-year-old female comes in today for complaints of increasing weakness over the last month. Patient has been being monitored by primary care and who has noticed that her sodium seems to be declining. Different medications have been stopped with minimal to no relief or cessation of increasing decline of sodium. Patient had blood work done yesterday that noted a sodium of 122. Patient was notified of it today and was told to come to the ER for worsening weakness or nausea. Patient has come in for the weakness. Differential diagnosis includes not limited to urinary tract infection, pneumonia, hyponatremia, hyperglycemia. CMP noted a sodium of 122, glucose 224. Patient is mildly anemic at 11.2 hemoglobin. Reviewed patient with Dr. Cade who agreed for admission for hyponatremia. Patient was agreeable for plan. Patient was started on some saline at 125 an hour. Respiratory 2 panel was placed to rule out any viral illness for the weakness and the headache. Lab Data 02/18/24 20:14 02/18/24 20:14 Laboratory Results WBC 8.34 10^3/uL (3.29-11.43) 02/18/24 20:14 RBC 3.74 10^6/uL (3.85-5.65) L 02/18/24 20:14 Hgb 11.20 g/dL (11.27-16.99) L 02/18/24 20:14 Hct 33.2 % (36-47) L 02/18/24 20:14 MCV 88.8 fl (85-98) 02/18/24 20:14 MCH 29.9 pg (27-33) 02/18/24 20:14 MCHC 33.7 g/dL (30-55) 02/18/24 20:14 RDW 13.3 % (12.1-15.1) 02/18/24 20:14 Plt Count 236 10^3/cmm (157-399) 02/18/24 20:14 MPV 9.3 fL (7.4-10.4) 02/18/24 20:14 Neut % (Auto) 58.9 % 02/18/24 20:14 Lymph % (Auto) 27.5 % 02/18/24 20:14 [place] % (Auto) 9.5 % 02/18/24 20:14 Eos % (Auto) 3.1 % 02/18/24 20:14 Baso % (Auto) 0.4 % 02/18/24 20:14 Neut # (Auto) 4.92 10^3/uL (1.8-7.7) 02/18/24 20:14 Lymph # (Auto) 2.3 10^3/uL (0.8-4.8) 02/18/24 20:14 [place] # (Auto) 0.8 10^3/uL (0.2-0.9) 02/18/24 20:14 Eos # (Auto) 0.3 10^3/uL (0.0-0.8) 02/18/24 20:14 Baso # (Auto) 0.0 10^3/uL (0.0-0.1) 02/18/24 20:14 Nucleated RBC % (auto) 0 % 02/18/24 20:14 Nucleated RBCs # 0.0 /100WBC 02/18/24 20:14 Sodium 122 mmol/L (136-145) L 02/18/24 20:14 Potassium 4.4 mmol/L (3.5-5.1) 02/18/24 20:14 Chloride 84 mmol/L (98-107) L 02/18/24 20:14 Carbon Dioxide 27 mmol/L (22-29) 02/18/24 20:14 Anion Gap 15.4 (5-19) 02/18/24 20:14 BUN 10 mg/dL (8-23) 02/18/24 20:14 Creatinine 0.6 mg/dL (0.5-0.9) 02/18/24 20:14 GFR Calculation Not Reportable 02/18/24 20:14 Glucose 224 mg/dL (65-115) H 02/18/24 20:14 Calculated Osmolality 260 mOsm/kg (285-295) L 02/18/24 20:14 Calcium 9.4 mg/dL (8.5-10.5) 02/18/24 20:14 Magnesium 1.8 mg/dL (1.7-2.3) 02/18/24 20:14 Total Bilirubin 0.4 mg/dL (0.15-1.2) 02/18/24 20:14 AST 25 U/L (0-32) 02/18/24 20:14 ALT 30 U/L (0-33) 02/18/24 20:14 Alkaline Phosphatase 208 U/L (35-105) H 02/18/24 20:14 Total Protein 7.1 g/dL (6.6-8.7) 02/18/24 20:14 Albumin 3.9 g/dL (3.5-5.2) 02/18/24 20:14 Globulin 3.2 g/dL (1.3-4.6) 02/18/24 20:14 Urine Color Yellow (Yellow) 02/18/24 20:53 Urine Appearance Clear (CLEAR) 02/18/24 20:53 Urine pH 7.5 (5-7) 02/18/24 20:53 Ur Specific [place] 1.008 (1.005-1.030) 02/18/24 20:53 Urine Protein Negative (Negative) 02/18/24 20:53 Urine Glucose (UA) 1+ (Normal) H 02/18/24 20:53 Urine Ketones Negative (Negative) 02/18/24 20:53 Urine Blood Negative (Negative) 02/18/24 20:53 Urine Nitrate Negative (Negative) 02/18/24 20:53 Urine Bilirubin Negative (Negative) 02/18/24 20:53 Urine Urobilinogen 0.2 mg/dL (Negative) 02/18/24 20:53 Ur Leukocyte Esterase Trace (Negative) A 02/18/24 20:53 Urine RBC 0-2 /hpf (0-2) 02/18/24 20:53 Urine WBC 0-5 /hpf (0-5) 02/18/24 20:53 Ur Squamous Epith Cells 0-5 /hpf (0-5) 02/18/24 20:53 Amorphous Sediment Not Reportable 02/18/24 20:53 Urine Bacteria None seen /hpf (NONE) 02/18/24 20:53 Hyaline Casts 0-4 /lpf H 02/18/24 20:53 Serum Ketones Negative (Negative) 02/18/24 20:14 All radiology interpretation(s) finalized by discharge EKG Data EKG 1: I personally reviewed and interpreted this EKG as follows: EKG interpretation date: 02/18/24 EKG interpretation time: 21:04 Prior EKG tracings: not available for review Interpretation: EKG shows a sinus rhythm with a regular rate at [address] elevation or ectopy is noted. No prior exam was available for comparison. Computer generated interpretation: Sinus rhythm. Borderline left axis deviation. Incomplete right bundle branch block. Borderline EKG. Unconfirmed report. Discharge Plan Discharge Patient Disposition: Admitted As Inpatient Clinical Impression: Acute hyponatremia Condition: Stable Coding Level of Care Code ED Cruise Agent for Chg Fwd Related Data Home Medications Medication Instructions Recorded Confirmed Lactobacillus acidophilus 1 cap PO QAM 06/01/19 02/09/24 (Acidophilus capsule) cholecalciferol (vitamin D3) 25 1,000 unit PO QPM 06/01/19 02/09/24 mcg (1,000 unit) capsule cranberry 500 mg capsule 500 mg PO QPM 06/01/19 02/09/24 dicyclomine 10 mg capsule 10 mg PO QID 06/01/19 02/09/24 ferrous sulfate 325 mg (65 mg 325 mg PO DAILY@06/21/19 02/09/24 iron) tablet magnesium oxide 400 mg (241.3 mg 500 mg PO DAILY@02/14/21 02/09/24 magnesium) tablet ascorbic acid (vitamin C) 500 mg 500 mg PO QNOON 11/14/21 02/09/24 chewable tablet (Vitamin C) vitamin E 670 mg (1,000 unit) 1,000 unit PO QAM 11/14/21 02/09/24 capsule esomeprazole magnesium 40 mg 40 mg PO QAM 05/19/22 02/09/24 capsule,delayed release furosemide 20 mg tablet 60 mg PO QAM 05/19/22 02/09/24 potassium chloride 8 mEq 24 meq PO QAM 05/19/22 02/09/24 capsule,extended release metolazone 2.5 mg tablet 2.5 mg PO QAM 04/05/23 02/09/24 lactulose 10 gram/15 mL oral 15 ml PO DAILY PRN Constipation 06/23/23 02/09/24 solution polyethylene glycol 3350 17 4 g PO DAILY PRN Constipation 06/23/23 02/09/24 gram/dose oral powder (Miralax) melatonin 3 mg capsule 3 mg PO DAILY 11/18/23 02/09/24 Previous Rx's Medication Instructions Recorded blood sugar diagnostic #400 ea 09/02/21 lancets 21 gauge (Comfort EZ #400 ea 09/02/21 Lancets) blood sugar diagnostic (Easymax 15 #400 ea 09/11/21 test strips) flash glucose scanning reader #1 ea 02/17/22 (Art CircleStyle Tor 2 Orgas) flash glucose sensor (FreeStyle #3 ea 02/17/22 Tor 2 Sensor kit) ondansetron 4 mg disintegrating 4 mg PO Q8H PRN nausea and 04/24/22 tablet vomiting #7 tabs clopidogrel 75 mg tablet 75 mg PO QPM #90 tabs 02/18/23 nitroglycerin 0.4 mg sublingual 0.4 mg sublingual Q5M PRN chest 08/04/23 tablet pain 30 days #30 tabs aripiprazole 2 mg tablet 2 mg PO BEDTIME #30 tabs 08/12/23 valsartan 320 mg tablet 320 mg PO QPM #90 tabs 08/30/23 levalbuterol tartrate 45 2 inh inhalation Q6H #15 grams 09/13/23 mcg/actuation aerosol inhaler (Xopenex HFA) fluticasone furoate 100 1 inh inhalation DAILY #60 ea 09/20/23 mcg-vilanterol 25 mcg/dose inhalation powder (Breo Ellipta) isosorbide mononitrate 120 mg 120 mg PO DAILY@12 #90 tabs 09/20/23 tablet,extended release 24 hr amlodipine 2.5 mg tablet 2.5 mg PO DAILY HTN 30 days #30 11/30/23 tabs insulin lispro 100 unit/mL 28 unit (0.28 mL) SUBCUT TID 90 12/28/23 subcutaneous pen (Humalog KwikPen days #75.6 mL (U-100) Insulin) tirzepatide 2.5 mg/0.5 mL 2.5 mg (0.5 mL) SUBCUT Q7D 1 month 01/05/24 subcutaneous pen injector #2 mL (Mounjaro) tirzepatide 5 mg/0.5 mL 5 mg (0.5 mL) SUBCUT Q7D 1 month 01/05/24 subcutaneous pen injector #2 mL (Mounjaro) tirzepatide 7.5 mg/0.5 mL 7.5 mg (0.5 mL) SUBCUT Q7D #2 mL 01/05/24 subcutaneous pen injector (Mounjaro) hydrocortisone 10 mg tablet See Rx Instructions .Route 01/14/24 .COMPLEX #360 tabs atorvastatin 40 mg tablet 40 mg PO BEDTIME #90 tabs 01/28/24 insulin degludec 200 unit/mL (3 See Rx Instructions .Route 01/28/24 mL) subcutaneous pen (Tresiba .COMPLEX #18 mL FlexTouch U-200 insulin) pen needle, diabetic 31 gauge x #400 ea 02/03/24/ (BD Ultra-Fine Mini Pen Needle) hydrocodone 10 mg-acetaminophen 1 tab PO Q4H PRN pain 7 days #42 02/07/24 325 mg tablet tabs Allergies Allergy/AdvReac Type Severity Reaction Status Date / Time morphine Allergy Severe RESPIRATORY Verified 02/09/24 14:54 DISTRESS doxycycline Allergy Mild THROAT Verified 02/09/24 14:54 SWELLING duloxetine [From Cymbalta] Allergy Mild SWELLING, Verified 02/09/24 14:54 VOMITING metformin Allergy Mild THROAT Verified 02/09/24 14:54 SWELLING oxybutynin [From Oxytrol] Allergy Mild ALGY-Rash Verified 02/09/24 14:54 Penicillins Allergy Mild ALGY-Rash Verified 02/09/24 14:54 Sulfa (Sulfonamide Allergy Mild STOMACH Verified 02/09/24 14:54 Antibiotics) CRAMPS alprazolam [From Xanax] Allergy Unknown Unknown Verified 02/09/24 14:54 amitriptyline Allergy Unknown Unknown Verified 02/09/24 14:54 Barbiturates Allergy Unknown stomach Verified 02/09/24 14:54 cramps cefuroxime [From Ceftin] Allergy Unknown stomach Verified 02/09/24 14:54 cramps insulin detemir Allergy Unknown Unknown Verified 02/09/24 14:54 [From Levemir U-100 Insulin] levofloxacin [From Levaquin] Allergy Unknown Unknown Verified 02/09/24 14:54 liraglutide [From Victoza] Allergy Unknown Unknown Verified 02/09/24 14:54 metoclopramide [From Reglan] Allergy Unknown Unknown Verified 02/09/24 14:54 nitrofurantoin Allergy Unknown Unknown Verified 02/09/24 14:54 [From Macrobid] pregabalin [From Lyrica] Allergy Unknown Unknown Verified 02/09/24 14:54 divalproex sodium Allergy ALGY-Hives Verified 02/09/24 14:54 [From Depakote] gabapentin Allergy bone, Verified 02/09/24 14:54 muscle pain and mood swings venlafaxine Allergy Unknown Verified 02/09/24 14:54 meloxicam AdvReac Severe ADR-Vomitin Verified 02/09/24 14:54 g ciprofloxacin [From Cipro] AdvReac Mild stomach Verified 02/09/24 14:54 upset hydromorphone [From Dilaudid] AdvReac Unknown PT STATES Verified 02/09/24 14:54 IT MAKES ME CRAZY
--- NOTE | 2024-02-18 20:31 | ECG_ITS ---
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 Measurements Intervals [place] Rate: 91 P: 37 VT: 192 QRS: -22 QRSD: 100 T: 71 QT: 338 QTc: 416 Interpretive Statements SINUS RHYTHM BORDERLINE LEFT AXIS DEVIATION [QRS AXIS < -20] INCOMPLETE RIGHT BUNDLE BRANCH BLOCK [90+ ms QRS DURATION, TERMINAL R IN V1/V2, 40+ ms S IN I/aVL/V4/V5/V6] Compared to ECG 01/19/2024 18:53:24 T-wave abnormality no longer present Electronically Signed On 02-21-2024 18:52:41 CDT by Jose Sumner M.D. [id number]
--- NOTE | 2024-02-18 20:31 | XRR_ITS ---
PROCEDURE INFORMATION: Exam: XR Chest Exam date and time: 02/18/2024 8:39 PM Age: 78 years old Clinical indication: Prior surgery; Surgery date: 6+ months; Surgery type: Cardiac stent x 3; Patient HX: Weakness; Cough TECHNIQUE: Imaging protocol: Radiologic exam of the chest. Views: 1 view. COMPARISON: CR (CHEST, ) 01/19/2024 7:23 PM FINDINGS: Lungs: Clear, symmetrically inflated lungs. Pleural spaces: No pleural effusion. No pneumothorax. Heart/Mediastinum: Cardiac silhouette is normal in size for technique. Bones/joints: Age appropriate. XR/XR chest 1V portable [id number] IMPRESSION: No acute cardiopulmonary abnormality.
[2024-02-18 20:33] LABS: Basophils % 0.4 %; Eosinophils # 0.3 10^3/uL (0.0-0.8); Eosinophils % 3.1 %; Hematocrit 33.2 % (36-47); Lymphocytes # 2.3 10^3/uL (0.8-4.8); Lymphocytes % 27.5 %; Mean Corpuscular HGB Conc 33.7 g/dL (30-55); Mean Corpuscular Hemoglobin 29.9 pg (27-33); Mean Corpuscular Volume 88.8 fl (85-98); Mean Platelet Volume 9.3 fL (7.4-10.4); Monocytes # 0.8 10^3/uL (0.2-0.9); Monocytes % 9.5 %; Neutrophils # 4.92 10^3/uL (1.8-7.7); Neutrophils % 58.9 %; Nucleated Red Blood Cells % 0 %; Platelet Count 236 10^3/cmm (157-399); Red Blood Count 3.74 10^6/uL (3.85-5.65); Red Cell Distribution Width 13.3 % (12.1-15.1); White Blood Count 8.34 10^3/uL (3.29-11.43)
[2024-02-18 20:38] LABS: Ketone (Acetest) Serum Negative (Negative)
[2024-02-18 20:49] LABS: Alanine Aminotransferase 30 U/L (0-33); Albumin Level 3.9 g/dL (3.5-5.2); Alkaline Phosphatase 208 U/L (35-105); Anion Gap 15.4 (5-19); Aspartate Amino Transferase 25 U/L (0-32); Blood Urea Nitrogen 10 mg/dL (8-23); Calcium 9.4 mg/dL (8.5-10.5); Carbon Dioxide 27 mmol/L (22-29); Chloride 84 mmol/L (98-107); Creatinine Clr Calc Pharmacy 66.4268; Globulin 3.2 g/dL (1.3-4.6); Glucose 224 mg/dL (65-115); Magnesium 1.8 mg/dL (1.7-2.3); Osmolality Calculated 260 mOsm/kg (285-295); Potassium 4.4 mmol/L (3.5-5.1); Sodium 122 mmol/L (136-145); Total Bilirubin 0.4 mg/dL (0.15-1.2); Total Protein 7.1 g/dL (6.6-8.7)
[2024-02-18] MEDS: sodium chloride 0.9% 1,000 ML 125 ML IV (20:53)
[2024-02-18 21:03] LABS: Bilirubin Urine Negative (Negative); Blood Urine Negative (Negative); Glucose Urine UA 1+ (Normal); Ketones Urine Negative (Negative); Leukocyte Esterase Urine Trace (Negative); Nitrate Urine Negative (Negative); Protein Urine Negative (Negative); Specific Gravity, Urine 1.008 (1.005-1.030); Urine Appearance Clear (CLEAR); Urine Color Yellow (Yellow); Urobilinogen Urine 0.2 mg/dL (Negative); pH Urine 7.5 (5-7)
[2024-02-18 21:05] LABS: Add Urine Microscopic? YES; Bacteria Urine None Seen /hpf; Hyaline Casts Urine 0-4 /lpf; RBC Urine 0-2 /hpf (0-2); Squamous Epithelial Cell Urine 0-5 /hpf (0-5); WBC Urine 0-5 /hpf (0-5)
[2024-02-18] MEDS: fentaNYL 50 mcg/mL INJ 2mL 25 MCG IVP (21:12)
[2024-02-18 21:14] LABS: Troponin(5th) Baseline 18 ng/L (0-10)
[2024-02-18] MEDS: ondansetron 2 mg/ML SDV 2 mL 4 MG IVP (21:14)
--- NOTE | 2024-02-18 21:32 | P.HP_ITS ---
Providers/Chief Complaint 2 Primary Care Provider: Arabella Orta MD Chief Complaint: WEAKNESS History of Present Illness Very pleasant 78-year-old lady with HTN, HLD, CAD, venous stasis, history of C. difficile collitis, hyponatremia, has been having generalized weakness, also has been having some nausea as well as some mild headache and loose stool. Her sodium was found to be 122 and she was directed to hold diuretic come in for evaluation to ER by her PCP. She has not been eating well over the preceding days due to nausea. She has also been having redness, tenderness on bilateral lower extremities, but reports she has had chronic dermatitis, likely related to venous stasis, which has been unchanged. Review of Systems 2 Const: Reports: change in appetite, fatigue and malaise; Denies: fever(s), chills or body aches ENMT: Denies: throat pain Card: Denies: chest pain, edema, pre-syncope or dyspnea on exertion Resp: Denies: dyspnea, productive cough, change in phlegm color or hemoptysis GI: Reports: nausea and diarrhea; Denies: abdominal pain, vomiting, constipation, hematochezia or melena : Denies: flank pain, urinary frequency or hematuria Musc: Denies: back pain, joint swelling or joint redness Skin/Breast: Denies: rash or new lesions Neuro: Denies: headache(s) or dizziness Medications/Allergies Home Medications Medication Instructions Recorded Confirmed Last Taken Type Lactobacillus acidophilus 1 cap PO QAM 06/01/19 02/18/24 02/18/24 History (Acidophilus capsule) cholecalciferol (vitamin D3) 25 1,000 unit PO QPM 06/01/19 02/18/24 02/17/24 History mcg (1,000 unit) capsule cranberry 500 mg capsule 500 mg PO QPM 06/01/19 02/18/24 02/17/24 History dicyclomine 10 mg capsule 10 mg PO QID 06/01/19 02/18/24 02/18/24 History ferrous sulfate 325 mg (65 mg 325 mg PO DAILY@06/21/19 02/18/24 02/18/24 History iron) tablet magnesium oxide 400 mg (241.3 mg 500 mg PO DAILY@02/14/21 02/18/24 02/18/24 History magnesium) tablet blood sugar diagnostic #400 ea 09/02/21 02/09/24 02/18/24 Rx lancets 21 gauge (Comfort EZ #400 ea 09/02/21 02/09/24 02/18/24 Rx Lancets) blood sugar diagnostic (Easymax 15 #400 ea 09/11/21 02/09/24 02/18/24 Rx test strips) ascorbic acid (vitamin C) 500 mg 500 mg PO QNOON 11/14/21 02/18/24 02/18/24 History chewable tablet (Vitamin C) vitamin E 670 mg (1,000 unit) 1,000 unit PO QAM 11/14/21 02/18/24 02/18/24 History capsule flash glucose scanning reader #1 ea 02/17/22 02/09/24 02/18/24 Rx (FreeStyle Tor 2 [place]) flash glucose sensor (FreeStyle #3 ea 02/17/22 02/09/24 02/18/24 Rx Tor 2 Sensor kit) ondansetron 4 mg disintegrating 4 mg PO Q8H PRN nausea and 04/24/22 02/18/24 01/08/24 Rx tablet vomiting #7 tabs esomeprazole magnesium 40 mg 40 mg PO QAM 05/19/22 02/18/24 02/18/24 History capsule,delayed release furosemide 20 mg tablet 40 mg PO QAM 05/19/22 02/18/24 02/18/24 History potassium chloride 8 mEq 24 meq PO QAM 05/19/22 02/18/24 02/18/24 History capsule,extended release metolazone 2.5 mg tablet 2.5 mg PO QAM 04/05/23 02/18/24 02/18/24 History lactulose 10 gram/15 mL oral 15 ml PO DAILY PRN Constipation 06/23/23 02/18/24 02/18/24 History solution polyethylene glycol 3350 17 4 g PO DAILY PRN Constipation 06/23/23 02/18/24 02/18/24 History gram/dose oral powder (Miralax) nitroglycerin 0.4 mg sublingual 0.4 mg sublingual Q5M PRN chest 08/04/23 02/18/24 02/18/24 Rx tablet pain 30 days #30 tabs aripiprazole 2 mg tablet 2 mg PO BEDTIME #30 tabs 08/12/23 02/18/24 02/17/24 Rx valsartan 320 mg tablet 320 mg PO QPM #90 tabs 08/30/23 02/18/24 02/17/24 Rx levalbuterol tartrate 45 2 inh inhalation Q6H #15 grams 09/13/23 02/18/24 02/18/24 Rx mcg/actuation aerosol inhaler (Xopenex HFA) fluticasone furoate 100 1 inh inhalation DAILY #60 ea 09/20/23 02/18/24 02/18/24 Rx mcg-vilanterol 25 mcg/dose inhalation powder (Breo Ellipta) isosorbide mononitrate 120 mg 120 mg PO DAILY@12 #90 tabs 09/20/23 02/18/24 02/18/24 Rx tablet,extended release 24 hr melatonin 3 mg capsule 3 mg PO DAILY 11/18/23 02/18/24 02/18/24 History amlodipine 2.5 mg tablet 2.5 mg PO DAILY HTN 30 days #30 11/30/23 02/19/24 02/18/24 Rx tabs insulin lispro 100 unit/mL 28 unit (0.28 mL) SUBCUT TID 90 12/28/23 02/18/24 02/18/24 Rx subcutaneous pen (Humalog #75.6 mL (U-100) Insulin) hydrocortisone 10 mg tablet See Rx Instructions .Route 01/14/24 02/18/24 02/18/24 Rx .COMPLEX #360 tabs atorvastatin 40 mg tablet 40 mg PO BEDTIME #90 tabs 01/28/24 02/18/24 02/17/24 Rx insulin degludec 200 unit/mL (3 See Rx Instructions .Route 01/28/24 02/18/24 02/18/24 Rx mL) subcutaneous pen (Tresiba .COMPLEX #18 mL FlexTouch U-200 insulin) pen needle, diabetic 31 gauge x #400 ea 02/03/24 02/09/24 02/18/24 Rx 3/16 (BD Ultra-Fine Mini Pen Needle) hydrocodone 10 mg-acetaminophen 1 tab PO Q4H PRN pain 7 days #42 02/07/24 02/18/24 02/18/24 Rx 325 mg tablet tabs clopidogrel 75 mg tablet (Plavix) 75 mg PO QNOON 02/18/24 02/18/24 02/18/24 History Allergies Allergy/AdvReac Type Severity Reaction Status Date / Time morphine Allergy Severe RESPIRATORY Verified 02/09/24 14:54 DISTRESS doxycycline Allergy Mild THROAT Verified 02/09/24 14:54 SWELLING duloxetine [From Cymbalta] Allergy Mild SWELLING, Verified 02/09/24 14:54 VOMITING metformin Allergy Mild THROAT Verified 02/09/24 14:54 SWELLING oxybutynin [From Oxytrol] Allergy Mild ALGY-Rash Verified 02/09/24 14:54 Penicillins Allergy Mild ALGY-Rash Verified 02/09/24 14:54 Sulfa (Sulfonamide Allergy Mild STOMACH Verified 02/09/24 14:54 Antibiotics) CRAMPS alprazolam [From Xanax] Allergy Unknown Unknown Verified 02/09/24 14:54 amitriptyline Allergy Unknown Unknown Verified 02/09/24 14:54 Barbiturates Allergy Unknown stomach Verified 02/09/24 14:54 cramps cefuroxime [From Ceftin] Allergy Unknown stomach Verified 02/09/24 14:54 cramps insulin detemir Allergy Unknown Unknown Verified 02/09/24 14:54 [From Levemir U-100 Insulin] levofloxacin [From Levaquin] Allergy Unknown Unknown Verified 02/09/24 14:54 liraglutide [From Victoza] Allergy Unknown Unknown Verified 02/09/24 14:54 metoclopramide [From Reglan] Allergy Unknown Unknown Verified 02/09/24 14:54 nitrofurantoin Allergy Unknown Unknown Verified 02/09/24 14:54 [From Macrobid] pregabalin [From Lyrica] Allergy Unknown Unknown Verified 02/09/24 14:54 divalproex sodium Allergy ALGY-Hives Verified 02/09/24 14:54 [From Depakote] gabapentin Allergy bone, Verified 02/09/24 14:54 muscle pain and mood swings venlafaxine Allergy Unknown Verified 02/09/24 14:54 meloxicam AdvReac Severe ADR-Vomitin Verified 02/09/24 14:54 g ciprofloxacin [From Cipro] AdvReac Mild stomach Verified 02/09/24 14:54 upset hydromorphone [From Dilaudid] AdvReac Unknown PT STATES Verified 02/09/24 14:54 IT MAKES ME CRAZY PFSH Acute 2 PFSH: Medical History C. 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 Left axis deviation. Normal [place] and QRS duration. Dyslipidemia (high LDL; low HDL) Benign essential hypertension with target blood pressure below 140/90 Atherosclerotic heart disease of [place] coronary artery without angina pectoris Status post left heart catheterization Recurrent UTI Gross hematuria Bipolar II disorder Surgical History Hx of bilateral hip replacements Hx of bladder repair surgery History of colonoscopy (~2017) History of coronary artery stent placement History of right knee surgery S/P appendectomy S/P hysterectomy S/P hernia repair S/P hip replacement Family History Family/Other Diabetes Other Cancer Social History Smoking and tobacco/nicotine status: unknown if used tobacco/nicotine Alcohol intake: never Substance/Drug Use: never Household members: spouse Marital status: Current occupational status: retired Vitals/I&O/Wt Last Vital Signs Temp 98.0 F 02/18/24 20:08 Pulse 89 02/18/24 21:19 Resp 16 02/18/24 21:12 BP 146/55 02/18/24 21:19 Pulse Ox 97 02/18/24 21:19 O2 Del Method Room Air 02/18/24 20:54 Weight last 48 hrs Weight 102.058 kg Physical Exam 2 Const: COMMON NORMALS: patient oriented x3 and alert GENERAL APPEARANCE: c ooperative ORIENTATION/CONSCIOUSNESS: Yes awake HENMT: COMMON NORMALS: oropharynx normal OTHER: Dry MM Neck/C-Spine: COMMON NORMALS: no JVD Resp: COMMON NORMALS: normal respiratory effort and clear to auscultation bilaterally AUSCULTATION: clear to auscultation bilaterally Cardio: COMMON NORMALS: no JVD, regular rhythm, S1 normal heart sound present, S2 normal heart sound present and No murmurs present (Cardio) RHYTHM: regular rhythm HEART SOUNDS: S1 normal heart sound present and S2 normal heart sound present GI: COMMON NORMALS: Normal to inspection, nondistended, normoactive bowel sounds present, Soft to palpation and non-tender PALPATION: Yes Soft to palpation Extremity: COMMON NORMALS: no joint enlargement OTHER: Bilateral lower extremity dermatitis. Neuro: COMMON NORMALS: patient oriented x3 and moves all extremities S ENSORIUM/ORIENTATION: Yes alert Skin: GENERAL SKIN EXAM: no rashes or lesions noted OTHER: Induration, erythema, warmth bilateral lower extremities above ankles and below knees, symmetrical, without any drainage or ulceration. Data 02/18/24 20:14 02/18/24 20:14 A&P Assessment and plan (1) Hyponatremia: Reviewed vitals, CBC, CMP, UA, serum ketones, chest x-ray, ER provider note, discussed with ER provider. With systemic symptoms, she has been feeling weak, fatigued, also nauseated with poor oral intake as well as some loose stool/diarrhea. Also is on diuretic at home. This was instructed to be held this morning by her PCP when her sodium was found to be 122. With dehydration, continue gentle IV hydration for now. Continue to hold diuretic. Monitor for risk of fluid overload. Monitor for risk of worsening hypertension. Additionally with loose stools, history of C. difficile in the past, check C. difficile. No sodium restriction in diet. Will check urine sodium, urine osmolality. TSH. Respiratory viral panel. Recheck sodium tonight and in the morning. Discussed with her risk of overly rapid rise in sodium with treatment. (2) Diarrhea: Mild headache, generalized weakness, fatigue, diarrhea, hyponatremia. Check respiratory viral panel. Check C. difficile with history of C. difficile infection in past. (3) Generalized weakness: Check respiratory viral panel, C. difficile, treat hyponatremia. With easy fatigability, deconditioning, PT assessment, case management consultation for dispo planning. (4) Stasis dermatitis of both legs: Redness, tenderness and warmth of bilateral lower extremities above ankle and below the knee. Initial consideration of cellulitis, considered antibiotics, however, she states that the condition of the legs is unchanged and has been the same for a long time and with risk of C. difficile antibiotics for now are held off. Monitor for development of superimposed bacterial infection, but currently findings are symmetrical and she states no different than usual. Discussed with her to elevate lower extremities, continue compression wraps. Reassess CBC, vitals for any fever. In case of worsening symptoms may end up requiring antibiotic treatment. Consider some contribution of edema from amlodipine. Hydrocodone for pain. Plan DM 2, she reduce his insulin doses when she has poor oral intake. Normally takes 48 units long-acting insulin 28 units short acting with meals. Poor appetite and oral intake recently. Requesting POC glucose checks. Consistent carbohydrate diet as tolerating. Will reduce Lantus dose for now to 20 units given poor oral intake. 10 units Premeal insulin, sliding scale. Please adjust depending on recovery. HTN, will hold off amlodipine given lower extremity stasis dermatitis, trace edema. HLD, statin. CAD, Plavix. History of C. difficile Requested to confirm home medications, please review and resume as appropriate. Attestations 2 Medical Necessity Statement*: Admission of over 2 midnights anticipated for assessment management of hyponatremia with systemic symptoms, diarrhea. Coding Level of Care Code Acute Code for [facility] Diagnoses Hyponatremia E87.1 Diarrhea R19.7 Generalized weakness R53.1 Stasis dermatitis of both legs I87.2
[2024-02-18 22:39] LABS: Urine Random Sodium 51 mmol/L
--- NOTE | 2024-02-18 23:22 | ECG_ITS ---
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 Measurements Intervals [place] Rate: 82 P: 38 [place]: 198 QRS: -22 QRSD: 98 T: 59 QT: 336 QTc: 392 Interpretive Statements SINUS RHYTHM BORDERLINE LEFT AXIS DEVIATION [QRS AXIS < -20] Compared to ECG 02/18/2024 20:40:30 Incomplete right bundle-branch block no longer present Electronically Signed On 02-21-2024 18:59:44 CDT by Jose Sumner M.D. [id number]
[2024-02-18] MEDS: enoxaparin 40 mg/0.4 mL Syringe SUBCUT (23:30)
[2024-02-18 23:37] LABS: Sodium 123 mmol/L (136-145)
[2024-02-18 23:41] LABS: Troponin 5 2HR 21.02 ng/L (0-10); Troponin 5 2HR Delta 3.02 ABS# (0-10)
[2024-02-18 23:49] LABS: Thyroid Stimulating Hormone 0.61 uIU/mL (0.27-4.20)
[2024-02-19] VITALS: BP 128/66; PULSE 79; RESP 19; TEMP 36.7; O2SAT 94
[2024-02-19] MEDS: HYDROcodone-acetaminophen 10-325 mg Tablet 1 TAB PO ×4 (01:15→20:21)
[2024-02-19 01:39] LABS: C.Diff PCR (Lab) NEGATIVE (Negative)
[2024-02-19 01:44] LABS: Adenovirus Not Detected (NOT DETECT); Chlamydia Pneumoniae Not Detected (NOT DETECT); Coronavirus 229E,HKU1,NL63,OC4 Not Detected (NOT DETECT); Human Metapneumovirus Not Detected (NOT DETECT); Human Rhinovirus/Enterovirus Not Detected (NOT DETECT); Influenza A Not Detected (NOT DETECT); Influenza A H1 Not Detected (NOT DETECT); Influenza A H1-2009 Not Detected (NOT DETECT); Influenza A H3 Not Detected (NOT DETECT); Influenza B Not Detected (NOT DETECT); Mycoplasma Pneumoniae Not Detected (NOT DETECT); Parainfluenza Virus Type 1 Not Detected (NOT DETECT); Parainfluenza Virus Type 2 Not Detected (NOT DETECT); Parainfluenza Virus Type 3 Not Detected (NOT DETECT); Parainfluenza Virus Type 4 Not Detected (NOT DETECT); Respiratory Syncytial Virus A Not Detected (NOT DETECT); Respiratory Syncytial Virus B Not Detected (NOT DETECT); SARS-COV-2 Not Detected (NOT DETECT)
--- NOTE | 2024-02-19 03:10 | ECG_ITS ---
[facility] Test Date: 2024-02-19 Pat Name: Brandi Berg Department: Room: 255 Gender: Female Resawyer: : 1945 Requested By: Sawyer Romero Order Number: [id number] Gamal MD: Jose Sumner M.D. Measurements Intervals [place] Rate: 74 P: 60 MS: 181 QRS: -22 QRSD: 100 T: 75 QT: 358 QTc: 397 Interpretive Statements SINUS RHYTHM BORDERLINE LEFT AXIS DEVIATION [QRS AXIS < -20] NONSPECIFIC T-WAVE ABNORMALITY Compared to ECG 02/18/2024 23:22:01 T-wave abnormality now present Electronically Signed On 02-21-2024 18:59:33 CDT by Jose Sumner M.D. [id number]
[2024-02-19 03:14] LABS: Basophils % 0.3 %; Eosinophils # 0.2 10^3/uL (0.0-0.8); Eosinophils % 3.6 %; Hematocrit 30.8 % (36-47); Lymphocytes # 1.3 10^3/uL (0.8-4.8); Lymphocytes % 20.3 %; Mean Corpuscular HGB Conc 34.1 g/dL (30-55); Mean Corpuscular Hemoglobin 29.7 pg (27-33); Mean Corpuscular Volume 87.3 fl (85-98); Mean Platelet Volume 9.1 fL (7.4-10.4); Monocytes # 0.8 10^3/uL (0.2-0.9); Monocytes % 12.4 %; Neutrophils # 4.15 10^3/uL (1.8-7.7); Neutrophils % 62.9 %; Nucleated Red Blood Cells % 0 %; Platelet Count 213 10^3/cmm (157-399); Red Blood Count 3.53 10^6/uL (3.85-5.65); Red Cell Distribution Width 13.5 % (12.1-15.1)
[2024-02-19 03:35] LABS: Troponin 5 6HR 21.44 ng/L (0-10); Troponin 5 6HR Delta 3.44 ng/L (0-12)
[2024-02-19 03:48] LABS: Anion Gap 14.5 (5-19); Blood Urea Nitrogen 8 mg/dL (8-23); Calcium 9.3 mg/dL (8.5-10.5); Carbon Dioxide 25 mmol/L (22-29); Chloride 92 mmol/L (98-107); Creatinine Clr Calc Pharmacy 66.8766; Glucose 175 mg/dL (65-115); Osmolality Calculated 267 mOsm/kg (285-295); Potassium 4.5 mmol/L (3.5-5.1); Sodium 127 mmol/L (136-145)
[2024-02-19 04:00] VITALS: BP 144/65; PULSE 77; RESP 20; TEMP 36.8; O2SAT 98
[2024-02-19] MEDS: sodium chloride 0.9% 1,000 ML 50 ML IV (05:10)
[2024-02-19] MEDS: ondansetron 2 mg/ML SDV 2 mL 4 MG IVP (06:18)
[2024-02-19] MEDS: pantoprazole DR 40 mg Tablet PO (06:18)
[2024-02-19 06:22] LABS: Glucose Point of Care 166 mg/dL (70-110)
[2024-02-19] MEDS: insulin lispro 100 unit/1 mL 10 UNIT SUBCUT ×2 (06:27→11:38)
[2024-02-19 07:55] VITALS: BP 128/61; PULSE 73; RESP 18; TEMP 36.7; O2SAT 96
[2024-02-19] MEDS: insulin glargine 100 units/1 mL 20 UNIT SUBCUT (09:43)
[2024-02-19] MEDS: insulin lispro 100 unit/1 mL SUBCUT ×3 (09:44→20:20)
[2024-02-19] MEDS: promethazine 25 mg/mL SDV 1 mL 12.5 MG IM (09:58)
--- NOTE | 2024-02-19 10:20 | CTR_ITS ---
PROCEDURE INFORMATION: Exam: CT Lumbar Spine With Contrast Exam date and time: 02/19/2024 11:54 AM Age: 78 years old Clinical indication: Low back pain; Prior surgery; Surgery date: 6+ months; Surgery type: Lumbar laminectomy; Additional info: Low back pain, S/P laminectomy TECHNIQUE: Imaging protocol: Computed tomography of the lumbar spine with contrast. Sagittal and coronal reformatted images were created and reviewed. Radiation optimization: All CT scans at this facility use at least one of these dose optimization techniques: automated exposure control; mA and/or kV adjustment per patient size (includes targeted exams where dose is matched to clinical indication); or iterative reconstruction. Contrast material: [id number]; Contrast volume: 100 ml; Contrast route: INTRAVENOUS (IV); COMPARISON: MR lumbar spine wo con* [id number] 09/29/2023 2:28 PM RADIATION DOSE METRICS: Total DLP (mGy-cm): 1327.6 FINDINGS: Bones/joints: Vertebral body height is maintained. Bones are diffusely osteopenic. Marginal osteophytes ranging from small to large in the visualized spine are stable. Stable mild loss of disc space height at L4-L5. Facet sclerosis and hypertrophy at multiple spinal levels, severe at T11-12, L2-L3, and L4-L5 and moderate at T12-L1, L1-L2, and L3-L4. Moderate spinal canal stenosis at T11-12 and mild spinal canal stenosis at L2-L3, L3-L4, and L4-L5. [id number] multilevel foraminal stenosis in the visualized spine. Findings are stable. Stable grade 1 anterolisthesis of L4 on L5, likely due to facet degenerative change. Patient has had a previous left hemilaminectomy at L3. Vasculature: Moderate atherosclerotic changes in the visualized arteries. No evidence for aortic aneurysm or aortic dissection. Soft tissues: No paravertebral soft tissue abnormality. No radiopaque foreign body. CT/CT lumbar spine w con [id number] IMPRESSION: 1. Stable multilevel degenerative changes of varying severity in the visualized spine with moderate spinal canal stenosis at T11-12 and mild spinal canal stenosis at L2-L3, L3-L4, and L4-L5, and mild to moderate multilevel foraminal stenosis in the visualized spine. 2. Stable grade 1 anterolisthesis of L4 on L5, likely due to facet degenerative change. 3. Patient has had a previous left hemilaminectomy at L3. 4. Incidental/nonacute findings are listed in the report.
--- NOTE | 2024-02-19 10:20 | CTR_ITS ---
PROCEDURE INFORMATION: Exam: CT Abdomen And Pelvis Without Contrast Exam date and time: 02/19/2024 11:54 AM Age: 78 years old Clinical indication: Abdominal pain; Generalized; Prior surgery; Surgery date: 6+ months; Surgery type: Lumbar TECHNIQUE: Imaging protocol: Computed tomography of the abdomen and pelvis without contrast. Sagittal and coronal reformatted images were created and reviewed. Radiation optimization: All CT scans at this facility use at least one of these dose optimization techniques: automated exposure control; mA and/or kV adjustment per patient size (includes targeted exams where dose is matched to clinical indication); or iterative reconstruction. COMPARISON: CT abdomen pelvis w con* [id number] 01/19/2024 7:28 PM RADIATION DOSE METRICS: Total DLP (mGy-cm): 1092.6 FINDINGS: Limitations: Evaluation of solid organs and vasculature is limited without intravenous contrast. Lungs: Visualized lungs are clear. Pleural spaces: No pleural effusion. Heart: Stable mild enlargement of the visualized portions of the heart. Stable calcification of the aortic valve. Coronary arteries: Stable extensive atherosclerotic calcification in the visualized coronary arteries. Liver: Multiple calcified granulomas in the liver are stable. Gallbladder and biliary ducts: Stable findings consistent with a previous cholecystectomy. No biliary ductal dilatation. Pancreas: Stable marked atrophy of the pancreatic parenchyma. No pancreatic ductal dilatation. Spleen: Stable calcified granulomas in the spleen. Adrenal glands: The right and left adrenal glands are unremarkable. Kidneys and ureters: The right and left kidneys are unremarkable. The right and left ureters are unremarkable. Stomach and bowel: Increased fecal content in the colon. Scattered diverticula in the sigmoid colon. No evidence for diverticulitis. No acute abnormality in the small bowel. Ingested contents in the stomach. Appendix: Appendix not definitely visualized. No inflammatory changes in the pericecal region however. Intraperitoneal space: No free intraperitoneal air. No ascites. No loculated fluid collections to suggest an abscess. Vasculature: Stable moderate atherosclerotic calcifications in the visualized arteries. No evidence for aortic aneurysm. Lymph nodes: Stable calcified subcarinal and right hilar lymph nodes. No lymphadenopathy. Urinary bladder: The bladder is unremarkable. Reproductive: Stable changes consistent with a previous hysterectomy. The ovaries are not definitely visualized, not an expected in a postmenopausal female. This may be due to ovarian atrophy. Alternatively, the patient may have had a previous bilateral oophorectomy. Findings are stable. Bones/joints: Multiple old left-sided rib fractures. Patient has had previous right and left hip arthroplasties. Multilevel degenerative changes of varying severity in the visualized spine. Grade I anterolisthesis of L4 on L5, likely due to facet degenerative change. Soft tissues: No acute abnormality in the extra-abdominal soft tissues. CT/CT abdomen pelvis wo con [id number] IMPRESSION: 1. Increased fecal content in the colon. 2. Scattered diverticula in the sigmoid colon. No evidence for diverticulitis. 3. Incidental/nonacute findings are listed in the report.
--- NOTE | 2024-02-19 10:21 | USR_ITS ---
PROCEDURE INFORMATION: Exam: US Duplex Lower Extremity Veins, Bilateral Exam date and time: 02/19/2024 4:23 PM Age: 78 years old Clinical indication: Swelling (edema) of limb; Lower extremity, bilateral TECHNIQUE: Imaging protocol: Real-time duplex ultrasound of the bilateral extremities with 2-D louie scale, color Doppler flow and spectral waveform analysis including responses to compression and other maneuvers (when performed) with image documentation. Complete exam focused on the lower extremity veins. COMPARISON: No relevant prior studies available. FINDINGS: Right deep veins: The common femoral, femoral, proximal profunda femoral, popliteal, posterior tibial, and peroneal veins are patent without thrombus. Normal compressibility and/or augmentation response. Left deep veins: The common femoral, femoral, proximal profunda femoral, popliteal, posterior tibial, and peroneal veins are patent without thrombus. Normal compressibility and/or augmentation response. Superficial veins: Greater saphenous veins at the saphenofemoral junctions are patent bilaterally without thrombus. Soft tissues: Mild subcutaneous edema in the right and left lower extremities. US/CV venous duplex [facility] [id number] IMPRESSION: 1. No evidence for deep venous thrombosis in the right left lower extremities. 2. Mild subcutaneous edema in the right and left lower extremities.
[2024-02-19 11:13] LABS: Glucose Point of Care 190 mg/dL (70-110)
[2024-02-19 11:14] LABS: Erythrocyte Sedimentation Rate 16 mm/hr (0-15)
[2024-02-19 11:16] LABS: D Dimer 0.83 ug/mLFEU (0-0.59)
[2024-02-19 11:22] VITALS: BP 141/58; PULSE 79; RESP 16; O2SAT 96
[2024-02-19 11:24] LABS: CRP High Sensitivity Cardiac < 0.150 mg/dL (0.0-0.3)
[2024-02-19 11:30] LABS: Procalcitonin 0.06 ng/mL (0-0.5)
[2024-02-19] MEDS: isosorbide mononitrate ER 60 mg Tablet 120 MG PO (11:39)
--- NOTE | 2024-02-19 12:19 | P.PN_ITS ---
Subjective 2 Subjective: Patient was seen this morning, nursing staff at bedside, she continues to complain of feeling nauseous, has severe low back pain she tells me that back in December she had back surgery, but since that she continues to have low back pain, she also reports abdominal pain, fairly nonspecific but generalized throughout the abdomen, denies any urinary continence, bowel incontinence, saddle or perianal anesthesia, no dysuria, no flank pain, she does report bilateral extremity pain, Vitals/I&O/Wt Last Vital Signs Temp 98.1 F 02/19/24 07:55 Pulse 79 02/19/24 11:22 Resp 16 02/19/24 11:22 BP 141/58 02/19/24 11:22 Pulse Ox 96 02/19/24 11:22 O2 Del Method Room Air 02/19/24 11:22 02/18/24 02/19/24 02/19/24 22:59 06:59 14:59 Intake Total 960.417 / 960.417 250 / 250 Output Total 500 / 500 Balance 460.417 / 460.417 250 / 250 Weight last 48 hrs Weight 100.471 kg Weight 103.328 kg Weight 102.058 kg Physical Exam 2 Const: COMMON NORMALS: no acute distress and patient oriented x3 Resp: COMMON NORMALS: normal respiratory effort, No retractions, No use of accessory muscles and clear to auscultation bilaterally AUSCULTATION: clear to auscultation bilaterally Cardio: COMMON NORMALS: regular rate, regular rhythm, S1 normal heart sound present and S2 normal heart sound present RATE: regular rate RHYTHM: r egular rhythm HEART SOUNDS: S1 normal heart sound present and S2 normal heart sound present GI: OTHER: Abdomen is soft, distended, diffuse tenderness, no guarding, no rebound, rigidity, does have diminished bowel sounds in all 4 quadrants Back/Pelvis: OTHER: Back surgery site, looks clean and dry Extremity: OTHER: Bilateral lower extremity swelling, erythema, tenderness, Neuro: COMMON NORMALS: patient oriented x3 Psych: COMMON NORMALS: mental status grossly normal Data 02/19/24 03:08 02/19/24 03:08 Micro: Microbiology 02/19/24 10:24 Blood Culture - Preliminary Blood SPECIMEN COLLECTED 02/19/24 10:20 Blood Culture - Preliminary Blood SPECIMEN COLLECTED A&P Assessment and plan (1) Hyponatremia: ? Potentially related to dehydration, Lasix therapy, losartan, lactulose, metolazone -Monitor serum sodium -Last serum sodium 127 -Does have a chronic history of hyponatremia ? Does have a history of [place]'s disease, continue hydrocortisone 1 tablet 4 times daily (2) Generalized weakness: - PT OT (3) Stasis dermatitis of both legs: - Does have swelling, erythema bilateral extremities -Recent history of back surgery -Lead ultrasound for DVT (4) Abdominal pain: ? CT scan abdomen pelvis ? CRP, Pro-Andrez, sed rate, blood cultures (5) Back pain, chronic: ? Recent history of back surgery by Dr. Joya ? CT lumbar spine ? Inflammatory markers as above Qualifiers: Back pain laterality: bilateral Back pain location: low back pain S ciatica laterality: sciatica of right side Sciatica presence: with sciatica Qualified Code(s): M54.41 - Lumbago with sciatica, right side; G89.29 - Other chronic pain Plan DM 2, she reduce his insulin doses when she has poor oral intake. Normally takes 48 units long-acting insulin 28 units short acting with meals. Poor appetite and oral intake recently. Requesting POC glucose checks. Consistent carbohydrate diet as tolerating. Will reduce Lantus dose for now to 20 units given poor oral intake. 10 units Premeal insulin, sliding scale. Please adjust depending on recovery. HTN, will hold off amlodipine given lower extremity stasis dermatitis, trace edema. HLD, statin. CAD, Plavix. History of C. difficile Requested to confirm home medications, please review and resume as appropriate. Attestations 2 Medical Necessity Statement*: Patient requires hospitalization for low back pain, abdominal pain, nausea, swelling of bilateral extremities, hyponatremia Diagnoses Hyponatremia E87.1 Generalized weakness R53.1 Stasis dermatitis of both legs I87.2 Abdominal pain R10.9 Back pain, chronic M54.41; G89.29 Back pain laterality: bilateral Back pain location: low back pain Sciatica laterality: sciatica of right side Sciatica presence: with sciatica
[2024-02-19] MEDS: hydrocortisone 10 mg Tablet PO ×3 (12:53→20:10)
[2024-02-19 16:54] LABS: Glucose Point of Care 86 mg/dL (70-110)
[2024-02-19] MEDS: polyethylene glycol 3350 Pkt 17 gm PO (17:44)
[2024-02-19] MEDS: clopidogrel 75 mg Tablet PO (17:44)
[2024-02-19 18:40] LABS: Sodium 125 mmol/L (136-145)
[2024-02-19 20:00] VITALS: BP 149/51; PULSE 86; RESP 20; TEMP 36.7; O2SAT 99
[2024-02-19 20:10] LABS: Glucose Point of Care 202 mg/dL (70-110)
[2024-02-19] MEDS: atorvastatin 40 mg Tablet PO (20:10)
[2024-02-19] MEDS: ARIPiprazole 2 mg Tablet PO (20:10)
[2024-02-19] MEDS: enoxaparin 40 mg/0.4 mL Syringe SUBCUT (21:07)
[2024-02-19 23:56] VITALS: BP 148/72; PULSE 79; RESP 19; TEMP 36.4; O2SAT 95
[2024-02-20] MEDS: sodium chloride 0.9% 1,000 ML 50 ML IV (01:05)
[2024-02-20 01:06] LABS: Sodium 125 mmol/L (136-145)
[2024-02-20 04:00] VITALS: BP 155/66; PULSE 88; RESP 20; TEMP 36.6; O2SAT 93
[2024-02-20] MEDS: pantoprazole DR 40 mg Tablet PO (05:11)
[2024-02-20] MEDS: HYDROcodone-acetaminophen 10-325 mg Tablet 1 TAB PO ×2 (05:13→15:54)
[2024-02-20 05:48] LABS: Glucose Point of Care 105 mg/dL (70-110)
[2024-02-20 06:26] LABS: Basophils % 0.5 %; Eosinophils # 0.3 10^3/uL (0.0-0.8); Eosinophils % 4.5 %; Hematocrit 35.2 % (36-47); Lymphocytes # 1.5 10^3/uL (0.8-4.8); Lymphocytes % 26.5 %; Mean Corpuscular HGB Conc 33.8 g/dL (30-55); Mean Corpuscular Hemoglobin 30.1 pg (27-33); Mean Corpuscular Volume 89.1 fl (85-98); Mean Platelet Volume 8.9 fL (7.4-10.4); Monocytes # 0.6 10^3/uL (0.2-0.9); Monocytes % 11.1 %; Neutrophils # 3.17 10^3/uL (1.8-7.7); Neutrophils % 56.7 %; Nucleated Red Blood Cells % 0 %; Platelet Count 242 10^3/cmm (157-399); Red Blood Count 3.95 10^6/uL (3.85-5.65); Red Cell Distribution Width 13.6 % (12.1-15.1); White Blood Count 5.59 10^3/uL (3.29-11.43)
[2024-02-20 06:38] LABS: Anion Gap 12.1 (5-19); Blood Urea Nitrogen 6 mg/dL (8-23); Calcium 9.6 mg/dL (8.5-10.5); Carbon Dioxide 26 mmol/L (22-29); Chloride 94 mmol/L (98-107); Creatinine Clr Calc Pharmacy 66.8125; Glucose 122 mg/dL (65-115); Osmolality Calculated 265 mOsm/kg (285-295); Potassium 4.1 mmol/L (3.5-5.1); Sodium 128 mmol/L (136-145)
[2024-02-20 06:39] LABS: Sodium 127 mmol/L (136-145)
[2024-02-20 08:00] VITALS: BP 158/72; PULSE 80; RESP 15; TEMP 36.6; O2SAT 96
[2024-02-20] MEDS: amlodipine 5 mg Tablet 2.5 MG PO (08:25)
[2024-02-20] MEDS: hydrocortisone 10 mg Tablet PO ×4 (08:25→20:23)
[2024-02-20] MEDS: polyethylene glycol 3350 Pkt 17 gm PO ×2 (09:01→17:23)
[2024-02-20] MEDS: bisacodyl 5 mg Tablet 10 MG PO (09:01)
[2024-02-20 11:10] VITALS: BP 179/64; PULSE 91; RESP 17; O2SAT 93
[2024-02-20 11:37] LABS: Glucose Point of Care 155 mg/dL (70-110)
[2024-02-20 12:06] VITALS: BP 180/68
[2024-02-20] MEDS: magnesium oxide 400 mg tablet 500 MG PO (12:46)
[2024-02-20] MEDS: isosorbide mononitrate ER 60 mg Tablet 120 MG PO (12:46)
[2024-02-20] MEDS: amlodipine 10 mg Tablet PO (12:47)
[2024-02-20] MEDS: insulin lispro 100 unit/1 mL SUBCUT ×3 (12:58→21:55)
--- NOTE | 2024-02-20 15:13 | P.PN_ITS ---
Subjective 2 Subjective: Patient does report constipation this morning she has had a small bowel movement, no fevers, chills, no cough no lightheadedness, no dizziness Vitals/I&O/Wt Last Vital Signs Temp 97.8 F 02/20/24 08:00 Pulse 91 02/20/24 11:10 Resp 17 02/20/24 11:10 BP 180/68 02/20/24 12:06 Pulse Ox 93 02/20/24 11:10 O2 Del Method Room Air 02/20/24 04:00 02/20/24 02/20/24 02/20/24 06:59 14:59 22:59 Intake Total 1235.833 / 2445.833 1360 / 1360 Output Total 600 / 600 Balance 1235.833 / 2445.833 760 / 760 Weight last 48 hrs Weight 103.147 kg Weight 100.471 kg Weight 103.328 kg Weight 102.058 kg Physical Exam 2 Const: COMMON NORMALS: no acute distress and patient oriented x3 Resp: COMMON NORMALS: normal respiratory effort, No retractions, No use of accessory muscles and clear to auscultation bilaterally AUSCULTATION: clear to auscultation bilaterally Cardio: COMMON NORMALS: regular rate, regular rhythm, S1 normal heart sound present and S2 normal heart sound present RATE: regular rate RHYTHM: r egular rhythm HEART SOUNDS: S1 normal heart sound present and S2 normal heart sound present GI: COMMON NORMALS: Normal to inspection, nondistended, normoactive bowel sounds present and non-tender Extremity: COMMON NORMALS: no pedal edema Neuro: COMMON NORMALS: patient oriented x3 Psych: COMMON NORMALS: mental status grossly normal Data 02/20/24 06:14 02/20/24 06:14 Micro: Microbiology 02/19/24 10:24 Blood Culture - Preliminary Blood NEGATIVE TO DATE 02/19/24 10:20 Blood Culture - Preliminary Blood NEGATIVE TO DATE A&P Assessment and plan (1) Hyponatremia: ? Potentially related to dehydration, Lasix therapy, losartan, lactulose, metolazone -Monitor serum sodium -Last serum sodium 127 -Does have a chronic history of hyponatremia ? Does have a history of [place]'s disease, continue hydrocortisone 1 tablet 4 times daily (2) Generalized weakness: - PT OT (3) Stasis dermatitis of both legs: - Does have swelling, erythema bilateral extremities -Recent history of back surgery -Lead ultrasound for DVT negative for DVT (4) Abdominal pain: ? CT scan abdomen pelvis CT/CT abdomen pelvis wo con [id number] IMPRESSION: 1. Increased fecal content in the colon. 2. Scattered diverticula in the sigmoid colon. No evidence for diverticulitis. 3. Incidental/nonacute findings are listed in the report. ? Likely sec to constipation, chronic narcotic use -Bowel regimen (5) Back pain, chronic: ? Recent history of back surgery by Dr. Joya ? CT lumbar spine CT/CT lumbar spine w con [id number] IMPRESSION: 1. Stable multilevel degenerative changes of varying severity in the visualized spine with moderate spinal canal stenosis at T11-12 and mild spinal canal stenosis at L2-L3, L3-L4, and L4-L5, and mild to moderate multilevel foraminal stenosis in the visualized spine. 2. Stable grade 1 anterolisthesis of L4 on L5, likely due to facet degenerative change. 3. Patient has had a previous left hemilaminectomy at L3. 4. Incidental/nonacute findings are listed in the repor ? Inflammatory markers as above Qualifiers: Back pain laterality: bilateral Back pain location: low back pain S ciatica laterality: sciatica of right side Sciatica presence: with sciatica Qualified Code(s): M54.41 - Lumbago with sciatica, right side; G89.29 - Other chronic pain Plan DM 2, she reduce his insulin doses when she has poor oral intake. Normally takes 48 units long-acting insulin 28 units short acting with meals. Poor appetite and oral intake recently. Requesting POC glucose checks. Consistent carbohydrate diet as tolerating. Will reduce Lantus dose for now to 20 units given poor oral intake. 10 units Premeal insulin, sliding scale. Please adjust depending on recovery. HTN, will hold off amlodipine given lower extremity stasis dermatitis, trace edema. HLD, statin. CAD, Plavix. History of C. difficile Requested to confirm home medications, please review and resume as appropriate. Attestations 2 Medical Necessity Statement*: Patient requires hospitalization for hyponatremia, abdominal pain, constipation, low back pain Diagnoses Hyponatremia E87.1 Generalized weakness R53.1 Stasis dermatitis of both legs I87.2 Abdominal pain R10.9 Back pain, chronic M54.41; G89.29 Back pain laterality: bilateral Back pain location: low back pain Sciatica laterality: sciatica of right side Sciatica presence: with sciatica
[2024-02-20 15:27] VITALS: BP 156/74; PULSE 96; RESP 18; TEMP 36.9; O2SAT 97
[2024-02-20 16:27] LABS: Glucose Point of Care 245 mg/dL (70-110)
[2024-02-20] MEDS: clopidogrel 75 mg Tablet PO (17:23)
[2024-02-20] MEDS: lanolin oint 7 gm 1 APPLIC TOPICAL (17:23)
[2024-02-20 20:00] VITALS: BP 156/54; PULSE 94; RESP 19; TEMP 36.8; O2SAT 94
[2024-02-20] MEDS: ondansetron 2 mg/ML SDV 2 mL 4 MG IVP (20:23)
[2024-02-20] MEDS: atorvastatin 40 mg Tablet PO (20:23)
[2024-02-20] MEDS: ARIPiprazole 2 mg Tablet PO (20:23)
[2024-02-20 20:54] LABS: Glucose Point of Care 305 mg/dL (70-110)
[2024-02-20] MEDS: enoxaparin 40 mg/0.4 mL Syringe SUBCUT (21:55)
[2024-02-21] VITALS: BP 156/54; PULSE 83; RESP 18; TEMP 36.6; O2SAT 96
[2024-02-21] MEDS: HYDROcodone-acetaminophen 10-325 mg Tablet 1 TAB PO ×2 (00:41→08:10)
[2024-02-21 03:25] LABS: Basophils % 0.5 %; Eosinophils # 0.2 10^3/uL (0.0-0.8); Eosinophils % 2.6 %; Hematocrit 34.2 % (36-47); Lymphocytes # 1.1 10^3/uL (0.8-4.8); Lymphocytes % 18.5 %; Mean Corpuscular Volume 90.7 fl (85-98); Mean Platelet Volume 9.1 fL (7.4-10.4); Monocytes # 0.6 10^3/uL (0.2-0.9); Monocytes % 9.7 %; Neutrophils # 3.94 10^3/uL (1.8-7.7); Neutrophils % 68.2 %; Nucleated Red Blood Cells % 0 %; Platelet Count 242 10^3/cmm (157-399); Red Blood Count 3.77 10^6/uL (3.85-5.65); Red Cell Distribution Width 13.6 % (12.1-15.1); White Blood Count 5.78 10^3/uL (3.29-11.43)
[2024-02-21 03:46] LABS: Anion Gap 13.2 (5-19); Blood Urea Nitrogen 10 mg/dL (8-23); Calcium 9.7 mg/dL (8.5-10.5); Carbon Dioxide 28 mmol/L (22-29); Chloride 96 mmol/L (98-107); Creatinine Clr Calc Pharmacy 66.8125; Glucose 176 mg/dL (65-115); Osmolality Calculated 279 mOsm/kg (285-295); Potassium 4.2 mmol/L (3.5-5.1); Sodium 133 mmol/L (136-145)
[2024-02-21 04:00] VITALS: BP 153/68; PULSE 77; RESP 19; TEMP 36.8; O2SAT 95
[2024-02-21] MEDS: pantoprazole DR 40 mg Tablet PO (05:30)
[2024-02-21 06:26] LABS: Glucose Point of Care 202 mg/dL (70-110)
--- NOTE | 2024-02-21 06:26 | PC.NURSE ---
Chronic Pain: Pt states that she has chronic pain in her hips, back, and legs. She reports that her pain level is almost always 7/10 and that she is hardly ever without it.
[2024-02-21 08:00] VITALS: BP 166/72; PULSE 74; RESP 17; TEMP 36.6; O2SAT 96
[2024-02-21] MEDS: polyethylene glycol 3350 Pkt 17 gm PO (08:09)
[2024-02-21] MEDS: amlodipine 5 mg Tablet 10 MG PO (08:09)
[2024-02-21] MEDS: insulin glargine 100 units/1 mL 20 UNIT SUBCUT (08:09)
[2024-02-21] MEDS: insulin lispro 100 unit/1 mL SUBCUT ×2 (08:09→11:56)
[2024-02-21] MEDS: hydrocortisone 10 mg Tablet PO ×2 (08:10→11:56)
--- NOTE | 2024-02-21 09:01 | PC.CHAP ---
Pastoral Care Encounter/Spiritual Assessment Type of Contact [] Declined lead welder visit [] Patient/Family/Request visit [] Outpatient visit [] Follow-up visit [] Physician referral [] Code/Alert [x] Routine visit [] Staff referral [] Actively dying [] Patient sleeping [] Family support [] [] Out of room [] Palliative care [] [] Receiving care in room [] Pre-surgical visit [] Trauma [] Long length of stay [] ICU visit [] Other: Relational/Emotional Strength [] Patient feels connected with others/family/visitors/staff [] Distress [] Loneliness/isolation [] Abandonment Spirituality of Patient [x] Person of Ignacia [] Attends Temple of their Ignacia [x] Believes in Prayer [] Reads Bible or Mormon materials [] There are Spiritual issues to be addressed 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 Interventions [x] Prayer [x] Active listening [] Non-anxious presence [] Spiritual/emotional support [] Crisis/trauma care [] Spiritual counseling [] Bereavement support [] Provided bereavement packet [x] Provided Bible/devotional materials [] Provided toy/stuffed animal, coloring book to patient or family member [] Provided Communion [] Anointing/[place] [] Salvation [x] Completed spiritual assessment [] Other: Impact on Illness or Injury [] Angry [] Fearful [] Anxious [] Often cries [] Exhaustion [] Unable to work [] Unable to attend methodist [] Unable to walk/stand [] Unable to read [] Unable to drive [] Unable to eat/drink [] Unable to sleep [] Unable to be with family [] Patient intubated [] Other: Summary Time spent with patient 5 min
--- NOTE | 2024-02-21 10:38 | P.DS_ITS ---
Discharge Providers Date of Admission: 02/18/24 21:10 Date of Discharge: February 21, 2024 Attending Provider at Admission: Stefan Cade Attending Provider at Discharge: Lorenzo Chavez MD Primary Care Provider: Arabella Orta MD Diagnoses at Discharge Discharge Diagnosis (1) Hyponatremia: Status: Acute (2) Generalized weakness: Status: Acute (3) Stasis dermatitis of both legs: Status: Acute (4) Abdominal pain: Status: Inactive (5) Back pain, chronic: Status: Inactive Qualifiers: Back pain laterality: bilateral Back pain location: low back pain Sciatica laterality: sciatica of right side Sciatica presence: with sciatica Qualified Code(s): M54.41 - Lumbago with sciatica, right side; G89.29 - Other chronic pain Reason for Visit Reason for Visit: WEAKNESS Hospital Course Hospital Course This is a 78-year-old female with a past medical history of Zeb's disease, hypertension, hyperlipidemia, CAD, venous stasis ulcers, history of hyponatremia, who presents [facility] due to nausea, serum sodium 122 Patient presented to [facility] for acute on chronic hyponatremia, Lasix therapy, losartan, lactulose, metolazone were held, did receive intermittent fluid therapy due to dehydration, steroids were resumed for her [place]'s disease, overall serum sodium improved, 133 on discharge For her abdominal pain, likely secondary to constipation, received bowel regimen, overall clinically improved, discharge on bowel regimen at home For her back pain, recent history of back surgery, received pain control as inpatient Physical Exam Const: COMMON NORMALS: no acute distress and patient oriented x3 Resp: COMMON NORMALS: normal respiratory effort, No retractions, No use of accessory muscles and clear to auscultation bilaterally AUSCULTATION: clear to auscultation bilaterally Cardio: COMMON NORMALS: regular rate, regular rhythm, S1 normal heart sound present and S2 normal heart sound present RATE: regular rate RHYTHM: regular rhythm HEART SOUNDS: S1 normal heart sound present and S2 normal heart sound present GI: COMMON NORMALS: Normal to inspection, nondistended, normoactive bowel sounds present and non-tender Extremity: COMMON NORMALS: no pedal edema Neuro: COMMON NORMALS: patient oriented x3 Psych: COMMON NORMALS: mental status grossly normal Discharge Data Studies Completed and Pending Completed Studies During Hospitalization Category Date Time Status CT abdomen pelvis wo con [id number] Routine Cat Scan 02/19/24 10:[address] lumbar spine w con [id number] Routine Cat Scan 02/19/24 10:20 Completed XR chest 1V portable [id number] Stat Exams 02/18/24 20:31 [place] [id number] Routine Ultrasound 02/19/24 10:21 Completed Pending at discharge Category Date Time Status Blood Culture Stat Lab 02/19/24 10:24 Results Osmolality Urine Routine Lab 02/18/24 20:53 Received Radiology Impressions Chest X-Ray 02/18/24 20:31 IMPRESSION: No acute cardiopulmonary abnormality. Abdomen/Pelvis CT 02/19/24 10:20 IMPRESSION: 1. Increased fecal content in the colon. 2. Scattered diverticula in the sigmoid colon. No evidence for diverticulitis. 3. Incidental/nonacute findings are listed in the report. ADDENDUM: 02/19/24 1310 Please note the addendum to the original report: Patient has had a previous left hemilaminectomy at L3. Lumbar Spine CT 02/19/24 10:20 IMPRESSION: 1. Stable multilevel degenerative changes of varying severity in the visualized spine with moderate spinal canal stenosis at T11-12 and mild spinal canal stenosis at L2-L3, L3-L4, and L4-L5, and mild to moderate multilevel foraminal stenosis in the visualized spine. 2. Stable grade 1 anterolisthesis of L4 on L5, likely due to facet degenerative change. 3. Patient has had a previous left hemilaminectomy at L3. 4. Incidental/nonacute findings are listed in the report. Venous Duplex 02/19/24 10:21 IMPRESSION: 1. No evidence for deep venous thrombosis in the right left lower extremities. 2. Mild subcutaneous edema in the right and left lower extremities. Laboratory Results WBC 5.78 10^3/uL (3.29-11.43) 02/21/24 02:36 RBC 3.77 10^6/uL (3.85-5.65) L 02/21/24 02:36 Hgb 11.30 g/dL (11.27-16.99) 02/21/24 02:36 Hct 34.2 % (36-47) L 02/21/24 02:36 MCV 90.7 fl (85-98) 02/21/24 02:36 MCH 30.0 pg (27-33) 02/21/24 02:36 MCHC 33.0 g/dL (30-55) 02/21/24 02:36 RDW 13.6 % (12.1-15.1) 02/21/24 02:36 Plt Count 242 10^3/cmm (157-399) 02/21/24 02:36 MPV 9.1 fL (7.4-10.4) 02/21/24 02:36 Neut % (Auto) 68.2 % 02/21/24 02:36 Lymph % (Auto) 18.5 % 02/21/24 02:36 [place] % (Auto) 9.7 % 02/21/24 02:36 Eos % (Auto) 2.6 % 02/21/24 02:36 Baso % (Auto) 0.5 % 02/21/24 02:36 Neut # (Auto) 3.94 10^3/uL (1.8-7.7) 02/21/24 02:36 Lymph # (Auto) 1.1 10^3/uL (0.8-4.8) 02/21/24 02:36 [place] # (Auto) 0.6 10^3/uL (0.2-0.9) 02/21/24 02:36 Eos # (Auto) 0.2 10^3/uL (0.0-0.8) 02/21/24 02:36 Baso # (Auto) 0.0 10^3/uL (0.0-0.1) 02/21/24 02:36 Nucleated RBC % (auto) 0 % 02/21/24 02:36 Nucleated RBCs # 0.0 /100WBC 02/21/24 02:36 ESR 16 mm/hr (0-15) H 02/19/24 03:08 D-Dimer 0.83 ug/mLFEU (0-0.59) H 02/19/24 10:24 Sodium 133 mmol/L (136-145) L 02/21/24 02:36 Potassium 4.2 mmol/L (3.5-5.1) 02/21/24 02:36 Chloride 96 mmol/L (98-107) L 02/21/24 02:36 Carbon Dioxide 28 mmol/L (22-29) 02/21/24 02:36 Anion Gap 13.2 (5-19) 02/21/24 02:36 BUN 10 mg/dL (8-23) 02/21/24 02:36 Creatinine 0.5 mg/dL (0.5-0.9) 02/21/24 02:36 GFR Calculation Not Reportable 02/21/24 02:36 Glucose 176 mg/dL (65-115) H 02/21/24 02:36 POC Glucose 202 mg/dL (70-110) H 02/21/24 06:15 Calculated Osmolality 279 mOsm/kg (285-295) L 02/21/24 02:36 Calcium 9.7 mg/dL (8.5-10.5) 02/21/24 02:36 Magnesium 1.8 mg/dL (1.7-2.3) 02/18/24 20:14 Total Bilirubin 0.4 mg/dL (0.15-1.2) 02/18/24 20:14 AST 25 U/L (0-32) 02/18/24 20:14 ALT 30 U/L (0-33) 02/18/24 20:14 Alkaline Phosphatase 208 U/L (35-105) H 02/18/24 20:14 Troponin T Baseline 18 ng/L (0-10) H 02/18/24 20:14 Troponin T 120 Minute 21.02 ng/L (0-10) H 02/18/24 23:03 Delta Troponin T 3.02 ABS# (0-10) 02/18/24 23:03 Troponin T Hi Sens 6Hr 21.44 ng/L (0-10) H 02/19/24 03:08 Troponin T Hi Sens 6Hr Delta 3.44 ng/L (0-12) 02/19/24 03:08 C-React Prot High Sens < 0.150 mg/dL (0.0-0.3) 02/19/24 03:08 Total Protein 7.1 g/dL (6.6-8.7) 02/18/24 20:14 Albumin 3.9 g/dL (3.5-5.2) 02/18/24 20:14 Globulin 3.2 g/dL (1.3-4.6) 02/18/24 20:14 Procalcitonin 0.06 ng/mL (0-0.5) 02/19/24 03:08 TSH 0.61 uIU/mL (0.27-4.20) 02/18/24 23:03 Urine Color Yellow (Yellow) 02/18/24 20:53 Urine Appearance Clear (CLEAR) 02/18/24 20:53 Urine pH 7.5 (5-7) 02/18/24 20:53 Ur Specific [place] 1.008 (1.005-1.030) 02/18/24 20:53 Urine Protein Negative (Negative) 02/18/24 20:53 Urine Glucose (UA) 1+ (Normal) H 02/18/24 20:53 Urine Ketones Negative (Negative) 02/18/24 20:53 Urine Blood Negative (Negative) 02/18/24 20:53 Urine Nitrate Negative (Negative) 02/18/24 20:53 Urine Bilirubin Negative (Negative) 02/18/24 20:53 Urine Urobilinogen 0.2 mg/dL (Negative) 02/18/24 20:53 Ur Leukocyte Esterase Trace (Negative) A 02/18/24 20:53 Urine RBC 0-2 /hpf (0-2) 02/18/24 20:53 Urine WBC 0-5 /hpf (0-5) 02/18/24 20:53 Ur Squamous Epith Cells 0-5 /hpf (0-5) 02/18/24 20:53 Amorphous Sediment Not Reportable 02/18/24 20:53 Urine Bacteria None seen /hpf (NONE) 02/18/24 20:53 Hyaline Casts 0-4 /lpf H 02/18/24 20:53 Ur Random Sodium 51 mmol/L 02/18/24 20:53 Serum Ketones Negative (Negative) 02/18/24 20:14 Adenovirus (PCR) Not detected (NOT DETECT) 02/18/24 21:15 C. pneumoniae DNA (PCR) Not detected (NOT DETECT) 02/18/24 21:15 C. difficile (PCR) Negative (Negative) 02/19/24 00:43 Coronavirus 229E (PCR) Not detected (NOT DETECT) 02/18/24 21:15 Human Metapneumovir PCR Not detected (NOT DETECT) 02/18/24 21:15 Influenza A (H1) PCR Not detected (NOT DETECT) 02/18/24 21:15 Influ A (H1/09) PCR Not detected (NOT DETECT) 02/18/24 21:15 Influenza A (H3) PCR Not detected (NOT DETECT) 02/18/24 21:15 Influenza Type A (PCR) Not detected (NOT DETECT) 02/18/24 21:15 Influenza Type B (PCR) Not detected (NOT DETECT) 02/18/24 21:15 M. pneumoniae (PCR) Not detected (NOT DETECT) 02/18/24 21:15 Parainfluenza 1 (PCR) Not detected (NOT DETECT) 02/18/24 21:15 Parainfluenza 2 (PCR) Not detected (NOT DETECT) 02/18/24 21:15 Parainfluenza 3 (PCR) Not detected (NOT DETECT) 02/18/24 21:15 Parainfluenza 4 (PCR) Not detected (NOT DETECT) 02/18/24 21:15 RSV Type A (PCR) Not detected (NOT DETECT) 02/18/24 21:15 RSV Type B (PCR) Not detected (NOT DETECT) 02/18/24 21:15 Entero/Rhino (PCR) Not detected (NOT DETECT) 02/18/24 21:15 SARS-CoV-2 (PCR) Not detected (NOT DETECT) 02/18/24 21:15 Vitals Last Vital Signs Temp 97.9 F 02/21/24 08:00 Pulse 74 02/21/24 08:00 Resp 17 02/21/24 08:00 BP 166/72 02/21/24 08:00 Pulse Ox 96 02/21/24 08:00 O2 Del Method Room Air 02/21/24 04:00 Discharge Plan Discharge Patient Disposition: Home Condition: Stable Prescriptions: New clopidogrel 75 mg Tablet 75 mg PO QPM 30 Days Qty: 30 0RF amlodipine 5 mg Tablet 10 mg PO DAILY 30 Days Qty: 60 0RF polyethylene glycol 3350 17 gram Powder In Packet 17 g PO DAILY PRN (Reason: constipation) 30 Days Qty: 30 0RF Continued cholecalciferol (vitamin D3) 1,000 unit capsule 1,000 unit PO QPM cranberry 500 mg capsule 500 mg PO QPM Lactobacillus acidophilus [Acidophilus] Capsule 1 cap PO QAM ferrous sulfate 325 mg (65 mg iron) tablet 325 mg PO DAILY@12 magnesium oxide 400 mg (241.3 mg magnesium) tablet 500 mg PO DAILY@12 aripiprazole 2 mg tablet 2 mg PO BEDTIME Qty: 30 11RF potassium chloride 8 mEq capsule, extended release 24 meq PO QAM esomeprazole magnesium 40 mg capsule,delayed release(DR/EC) 40 mg PO QAM levalbuterol tartrate [Xopenex HFA] 45 mcg/actuation HFA aerosol inhaler 2 inh inhalation Q6H Qty: 15 3RF melatonin 3 mg capsule 3 mg PO DAILY nitroglycerin 0.4 mg tablet, sublingual 0.4 mg sublingual Q5M PRN (Reason: chest pain) 30 Days Qty: 30 3RF Rx Instructions: until response; do not exceed 3 doses per episode fluticasone furoate-vilanterol [Breo Ellipta] 100-25 mcg/dose blister with device 1 inh inhalation DAILY Qty: 60 6RF isosorbide mononitrate 120 mg tablet extended release 24 hr 120 mg PO DAILY@12 Qty: 90 3RF hydrocortisone 10 mg tablet See Rx Instructions .ROUTE .COMPLEX Qty: 360 0RF Dose Instruction: TAKE 1 TABLET BY MOUTH FOUR TIMES DAILY Rx Instructions: TAKE 1 TABLET BY MOUTH FOUR TIMES DAILY atorvastatin 40 mg tablet 40 mg PO BEDTIME Qty: 90 3RF hydrocodone-acetaminophen 10-325 mg tablet 1 tab PO Q4H MDD 6 PRN (Reason: pain) 7 Days Qty: 42 0RF vitamin E 1,000 unit Capsule 1,000 unit PO QAM ascorbic acid (vitamin C) [Vitamin C] 500 mg Tablet,Chewable 500 mg PO QNOON ondansetron 4 mg tablet,disintegrating 4 mg PO Q8H PRN (Reason: nausea and vomiting) Qty: 7 0RF lactulose 10 gram/15 mL solution 15 ml PO DAILY PRN (Reason: Constipation) Plavix 75 mg Tablet 75 mg PO QNOON Changed insulin lispro [Humalog KwikPen Insulin] 100 unit/mL insulin pen See Rx Instructions .ROUTE .COMPLEX 90 Days Qty: 75.6 1RF Rx Instructions: Inject, subcut, 3 times daily, after meals, based on sliding scale provided insulin degludec [Tresiba FlexTouch U-200] 200 unit/mL (3 mL) insulin pen See Rx Instructions .ROUTE .COMPLEX Qty: 18 0RF Dose Instruction: ADMINISTER 44 UNITS UNDER THE SKIN DAILY Rx Instructions: ADMINISTER 20 UNITS UNDER THE SKIN DAILY Held furosemide 20 mg tablet 40 mg PO QAM Hold Instructions: Resume on 02/28/24. metolazone 2.5 mg tablet 2.5 mg PO QAM Hold Instructions: Resume on 02/28/24. Discontinued dicyclomine 10 mg capsule 10 mg PO QID valsartan 320 mg tablet 320 mg PO QPM Qty: 90 3RF amlodipine 2.5 mg tablet 2.5 mg PO DAILY 30 Days Qty: 30 5RF polyethylene glycol 3350 [Miralax] 17 gram/dose Powder 4 g PO DAILY PRN (Reason: Constipation) No Action (DME) FreeStyle Tor 2 Sensor Kit See Rx Instructions .MEDSUPPLY Qty: 3 3RF Rx Instructions: As directed (DME) FreeStyle Tor 2 [place] Misc See Rx Instructions .Route Qty: 1 0RF Rx Instructions: As directed (DME) blood sugar diagnostic Strip See Rx Instructions .Route Qty: 400 3RF Rx Instructions: Check blood sugar 4 times a day. (DME) lancets [Comfort EZ Lancets] 21 gauge misc See Rx Instructions .Route Qty: 400 3RF Rx Instructions: As directed (DME) Easymax 15 test strips Strip See Rx Instructions .Route Qty: 400 3RF Rx Instructions: Check BS 4 times a day. (DME) pen needle, diabetic [BD Ultra-Fine Mini Pen Needle] 31 gauge x 3/16 needle See Rx Instructions .ROUTE .COMPLEX Qty: 400 0RF Dose Instruction: USE WITH INSULIN FOUR TIMES DAILY Rx Instructions: USE WITH INSULIN FOUR TIMES DAILY Discharge Orders: Discharge Order (Routine); Ordered 02/21/24 Ordered By: Lorenzo Chavez Referrals: Arabella Orta MD [Primary Care Provider] - 03/06/24 10:00 am () Discharge Diet: Cardiac Discharge Activity: Resume usual activity Patient Instructions: Opioid Safety Activity Restrictions/Additional Instructions: -Tresiba dose has been decreased to 20 units subcu daily -For your Humalog sliding scale -Please monitor your blood sugars closely -Monitor your blood sugars 3 times daily as after meals -Please record your blood sugars, and a blood sugar log -For your Humalog -Please inject blood sugar after meals based on sliding scale provided -Do not inject insulin if you do not eat as hypoglycemia kills -This is a NovoLog sliding scale -Insulin sliding ?fingerstick? Insulin ?141-180?0 units/sq 181-220?2 units/sq ?221-260?4 units/sq ?261-300 6 units/sq ?301-350?8 units/sq ?351-400 10 units/sq ?401-450?12 units/sq >450? 14units/sq -If your blood sugar is greater than 500 go to the emergency room -If your blood sugar is less than 60 or at anytime you feel lightheaded or dizzy or diaphoretic or have chest palpitations check your blood sugar, and eat a hard candy or drink orange juice and go immediately to the emergency room -Remember hypoglycemia kills, so if his blood sugar is less than 60 we have to increase it by taking in a sugary meal such as a hard candy or orange juice and go to the emergency room -If you have any questions please call us where here to help -Have your primary care provider recheck your sodium levels next week -For your MiraLAX take 17 g once daily until you have a regular soft bowel movement, this could take some time, then once you have a regular soft bowel movement once daily then use MiraLAX as needed Discharge Attestations Time Spent in Discharge Care*: greater than 30 min Quality Metrics Clinical Quality Measures [ No reported AMI, CVA or VTE this stay] Coding Level of Care Code 66325 Total time (in minutes) for Discharge: 45 Diagnoses Hyponatremia E87.1 Generalized weakness R53.1 Stasis dermatitis of both legs I87.2 Abdominal pain R10.9 Back pain, chronic M54.41; G89.29 Back pain laterality: bilateral Back pain location: low back pain Sciatica laterality: sciatica of right side Sciatica presence: with sciatica
[2024-02-21 11:14] LABS: Glucose Point of Care 270 mg/dL (70-110)
[2024-02-21] MEDS: isosorbide mononitrate ER 60 mg Tablet 120 MG PO (11:56)
[2024-02-21] MEDS: magnesium oxide 400 mg tablet 500 MG PO (11:56)
[2024-02-21 12:00] VITALS: BP 169/70; O2SAT 95
[2024-02-21 13:36] VITALS: BP 169/70; O2SAT 95
== END 2024-02-21 12:43 | disposition home health service (06) | DRG 641 ==
LOC: ER 21:10 → MEDSURG 21:33
PROVIDERS: Admitting Provider Internal Medicine; Emergency Provider Nurse Practitioner Family; PCP Family Medicine; Visit Provider Family Medicine
DX: E87.1 Hypo-osmolality and hyponatremia (principal); F31.81 Bipolar II disorder; E27.1 Primary adrenocortical insufficiency; I87.8 Other specified disorders of veins; I10 Essential (primary) hypertension; E78.5 Hyperlipidemia, unspecified; I25.10 Atherosclerotic heart disease of native coronary artery without angina pectoris; E66.01 Morbid (severe) obesity due to excess calories; G62.9 Polyneuropathy, unspecified; D63.8 Anemia in other chronic diseases classified elsewhere; Z96.643 Presence of artificial hip joint, bilateral; K59.00 Constipation, unspecified; E86.0 Dehydration; G89.29 Other chronic pain; R53.1 Weakness; M54.41 Lumbago with sciatica, right side; E11.9 Type 2 diabetes mellitus without complications; Z11.52 Encounter for screening for COVID-19; Z79.4 Long term (current) use of insulin; Z79.02 Long term (current) use of antithrombotics/antiplatelets; Z68.38 Body mass index [BMI] 38.0-38.9, adult; Z87.440 Personal history of urinary (tract) infections; Z95.5 Presence of coronary angioplasty implant and graft; Z98.890 Other specified postprocedural states
CPT/HCPCS: 36415; 36416; 71045; 72132; 74176; 80048; 80053; 81001; 82009; 82962; 83735; 83935; 84145; 84295; 84300; 84443; 84484; 85025; 85378; 85651; 86141; 87040; 87486; 87493; 87581; 87633; 93005; 93970; 96372; 97116; 97163; 97530; J1650; J1815; J2405; J2550; J3010; J7030; J8499; Q9967

== ENCOUNTER → 2024-03-07 12:51 | Outpatient (BNVA) | payer MEDICARE, OTHER, SELFPAY | PROVIDERS: PCP Family Medicine; Visit Provider Orthopaedic Surgery | DX: Z98.890 Other specified postprocedural states (principal) | CPT/HCPCS: 99024 ==

== ENCOUNTER 2024-03-17 15:42 | Outpatient (CLI) | payer MEDICARE, OTHER, SELFPAY ==
[2024-03-17 17:00] LABS: Anion Gap 14.6 (5-19); Blood Urea Nitrogen 17 mg/dL (8-23); Calcium 9.6 mg/dL (8.5-10.5); Carbon Dioxide 30 mmol/L (22-29); Chloride 92 mmol/L (98-107); Glucose 186 mg/dL (65-115); Osmolality Calculated 282 mOsm/kg (285-295); Potassium 3.6 mmol/L (3.5-5.1); Sodium 133 mmol/L (136-145)
== END 2024-03-17 15:43 | disposition home or self-care (01) ==
LOC: LAB 15:43
PROVIDERS: PCP Family Medicine; Visit Provider Family Medicine
DX: E87.1 Hypo-osmolality and hyponatremia (principal); R30.0 Dysuria
CPT/HCPCS: 36415; 80048; 87086

== ENCOUNTER 2024-03-22 01:40 | Emergency (ER) | payer MEDICARE, OTHER, SELFPAY ==
[2024-03-22 01:42] VITALS: BP 185/65; PULSE 96; RESP 20; TEMP 36.7; O2SAT 96; BMI 36.6
--- NOTE | 2024-03-22 01:43 | XRR_ITS ---
PROCEDURE INFORMATION: Exam: XR Chest Exam date and time: 03/22/2024 1:53 AM Age: 78 years old Clinical indication: Pain; Chest pressure; Additional info: Chest pain TECHNIQUE: Imaging protocol: Radiologic exam of the chest. Views: 1 view. COMPARISON: CR (CHEST, ) 02/18/2024 8:39 PM FINDINGS: Lungs: No consolidation. Pleural spaces: No pleural effusion. No pneumothorax. Heart/Mediastinum: Stable cardiac contour. Bones/joints: No acute findings. XR/XR chest 1V portable [id number] IMPRESSION: No acute findings.
--- NOTE | 2024-03-22 01:44 | ECG_ITS ---
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 Measurements Intervals [place] Rate: 97 P: 86 GA: 192 QRS: -23 QRSD: 101 T: 84 QT: 350 QTc: 446 Interpretive Statements SINUS RHYTHM LEFT AXIS DEVIATION [QRS AXIS < -20] INCOMPLETE RIGHT BUNDLE BRANCH BLOCK NONSPECIFIC ST & T-WAVE ABNORMALITY Compared to ECG 02/19/2024 03:10:45 Incomplete right bundle-branch block now present Electronically Signed On 03-22-2024 16:49:12 CDT by Sarah Black M.D. [email or web address]
[2024-03-22 01:53] LABS: Basophils % 0.3 %; Eosinophils # 0.3 10^3/uL (0.0-0.8); Eosinophils % 4.4 %; Lymphocytes # 1.6 10^3/uL (0.8-4.8); Lymphocytes % 24.6 %; Mean Corpuscular HGB Conc 32.5 g/dL (30-55); Mean Corpuscular Hemoglobin 29.5 pg (27-33); Mean Corpuscular Volume 90.7 fl (85-98); Mean Platelet Volume 9.8 fL (7.4-10.4); Monocytes # 0.7 10^3/uL (0.2-0.9); Monocytes % 11.1 %; Neutrophils # 3.72 10^3/uL (1.8-7.7); Neutrophils % 59.1 %; Nucleated Red Blood Cells % 0 %; Platelet Count 203 10^3/cmm (157-399); Red Blood Count 3.97 10^6/uL (3.85-5.65); Red Cell Distribution Width 13.5 % (12.1-15.1)
[2024-03-22 02:09] LABS: Alanine Aminotransferase 26 U/L (0-33); Albumin Level 3.9 g/dL (3.5-5.2); Alkaline Phosphatase 194 U/L (35-105); Anion Gap 15.1 (5-19); Aspartate Amino Transferase 22 U/L (0-32); Blood Urea Nitrogen 19 mg/dL (8-23); Calcium 9.3 mg/dL (8.5-10.5); Carbon Dioxide 29 mmol/L (22-29); Chloride 91 mmol/L (98-107); Creatinine Clr Calc Pharmacy 65.6235; Glucose 268 mg/dL (65-115); Osmolality Calculated 286 mOsm/kg (285-295); Potassium 3.1 mmol/L (3.5-5.1); Sodium 132 mmol/L (136-145); Total Bilirubin 0.3 mg/dL (0.15-1.2); Total Protein 6.9 g/dL (6.6-8.7)
[2024-03-22 02:10] LABS: Troponin(5th) Baseline 21 ng/L (0-10)
--- NOTE | 2024-03-22 02:43 | ED_ITS ---
HPI - Chest Pain 2 General: Chief Complaint: Chest Pain Stated Complaint: chest pain Time Seen by Provider: 03/22/24 01:43 History of Present Illness: 78-year-old female with history of obesi ty, anxiety, diabetes, hyponatremia, recurrent urinary tract infections, bipolar disorder, coronary artery disease who presents the emergency room by ambulance with chest discomfort. This started a couple of hours ago. She says she was told that her sodium was low by her primary care physician and thinks this is causing her chest pain. No cough. No shortness of breath. No altered mental status. No nausea or vomiting. Related Data Home Medications Medication Instructions Recorded Confirmed Lactobacillus acidophilus 1 cap PO QAM 06/01/19 03/10/24 (Acidophilus capsule) cholecalciferol (vitamin D3) 25 1,000 unit PO QPM 06/01/19 03/10/24 mcg (1,000 unit) capsule cranberry 500 mg capsule 500 mg PO QPM 06/01/19 03/10/24 ferrous sulfate 325 mg (65 mg 325 mg PO DAILY@12 06/21/19 03/10/24 iron) tablet magnesium oxide 400 mg (241.3 mg 500 mg PO DAILY@02/14/21 03/10/24 magnesium) tablet ascorbic acid (vitamin C) 500 mg 500 mg PO QNOON 11/14/21 03/10/24 chewable tablet (Vitamin C) vitamin E 670 mg (1,000 unit) 1,000 unit PO QAM 11/14/21 03/10/24 capsule esomeprazole magnesium 40 mg 40 mg PO QAM 05/19/22 03/10/24 capsule,delayed release furosemide 20 mg tablet 40 mg PO QAM 05/19/22 03/10/24 potassium chloride 8 mEq 24 meq PO QAM 05/19/22 03/10/24 capsule,extended release metolazone 2.5 mg tablet 2.5 mg PO QAM 04/05/23 03/10/24 lactulose 10 gram/15 mL oral 15 ml PO DAILY PRN Constipation 06/23/23 03/10/24 solution melatonin 3 mg capsule 3 mg PO DAILY 11/18/23 03/10/24 Previous Rx's Medication Instructions Recorded blood sugar diagnostic #400 ea 09/02/21 lancets 21 gauge (Comfort EZ #400 ea 09/02/21 Lancets) blood sugar diagnostic (Easymax 15 #400 ea 09/11/21 test strips) flash glucose scanning reader #1 ea 02/17/22 (FreeStyle Tor 2 [place]) flash glucose sensor (FreeStyle #3 ea 02/17/22 Tor 2 Sensor kit) ondansetron 4 mg disintegrating 4 mg PO Q8H PRN nausea and 04/24/22 tablet vomiting #7 tabs nitroglycerin 0.4 mg sublingual 0.4 mg sublingual Q5M PRN chest 08/04/23 tablet pain 30 days #30 tabs aripiprazole 2 mg tablet 2 mg PO BEDTIME #30 tabs 08/12/23 levalbuterol tartrate 45 2 inh inhalation Q6H #15 grams 09/13/23 mcg/actuation aerosol inhaler (Xopenex HFA) fluticasone furoate 100 1 inh inhalation DAILY #60 ea 09/20/23 mcg-vilanterol 25 mcg/dose inhalation powder (Breo Ellipta) isosorbide mononitrate 120 mg 120 mg PO DAILY@12 #90 tabs 09/20/23 tablet,extended release 24 hr hydrocortisone 10 mg tablet See Rx Instructions .Route 01/14/24 .COMPLEX #360 tabs atorvastatin 40 mg tablet 40 mg PO BEDTIME #90 tabs 01/28/24 pen needle, diabetic 31 gauge x #400 ea 02/03/24 3/16 (BD Ultra-Fine Mini Pen Needle) insulin degludec 200 unit/mL (3 See Rx Instructions .Route 02/21/24 mL) subcutaneous pen (Tresiba .COMPLEX #18 mL FlexTouch U-200 insulin) insulin lispro 100 unit/mL See Rx Instructions .Route 02/21/24 subcutaneous pen (Humalog KwikPen .COMPLEX 90 days #75.6 mL (U-100) Insulin) hydrocodone 10 mg-acetaminophen 1 tab PO Q4H PRN pain 7 days #42 03/07/24 325 mg tablet tabs Allergies Allergy/AdvReac Type Severity Reaction Status Date / Time morphine Allergy Severe RESPIRATORY Verified 03/22/24 01:52 DISTRESS doxycycline Allergy Mild THROAT Verified 03/22/24 01:52 SWELLING duloxetine [From Cymbalta] Allergy Mild SWELLING, Verified 03/22/24 01:52 VOMITING metformin Allergy Mild THROAT Verified 03/22/24 01:52 SWELLING oxybutynin [From Oxytrol] Allergy Mild ALGY-Rash Verified 03/22/24 01:52 Penicillins Allergy Mild ALGY-Rash Verified 03/22/24 01:52 Sulfa (Sulfonamide Allergy Mild STOMACH Verified 03/22/24 01:52 Antibiotics) CRAMPS alprazolam [From Xanax] Allergy Unknown Unknown Verified 03/22/24 01:52 amitriptyline Allergy Unknown Unknown Verified 03/22/24 01:52 Barbiturates Allergy Unknown stomach Verified 03/22/24 01:52 cramps cefuroxime [From Ceftin] Allergy Unknown stomach Verified 03/22/24 01:52 cramps insulin detemir Allergy Unknown Unknown Verified 03/22/24 01:52 [From Levemir U-100 Insulin] levofloxacin [From Levaquin] Allergy Unknown Unknown Verified 03/22/24 01:52 liraglutide [From Victoza] Allergy Unknown Unknown Verified 03/22/24 01:52 metoclopramide [From Reglan] Allergy Unknown Unknown Verified 03/22/24 01:52 nitrofurantoin Allergy Unknown Unknown Verified 03/22/24 01:52 [From Macrobid] pregabalin [From Lyrica] Allergy Unknown Unknown Verified 03/22/24 01:52 divalproex sodium Allergy ALGY-Hives Verified 03/22/24 01:52 [From Depakote] gabapentin Allergy bone, Verified 03/22/24 01:52 muscle pain and mood swings venlafaxine Allergy Unknown Verified 03/22/24 01:52 meloxicam AdvReac Severe ADR-Vomitin Verified 03/22/24 01:52 g ciprofloxacin [From Cipro] AdvReac Mild stomach Verified 03/22/24 01:52 upset hydromorphone [From Dilaudid] AdvReac Unknown PT STATES Verified 03/22/24 01:52 IT MAKES ME CRAZY Review of Systems 2 Narrative: Constitutional symptoms: Negative except as documented in HPI. Skin symptoms: Negative except as documented in HPI. Eye symptoms: Negative except as documented in HPI. ENMT symptoms: Negative except as documented in HPI. Respiratory symptoms: Negative except as documented in HPI. Cardiovascular symptoms: Negative except as documented in HPI. Gastrointestinal symptoms: Negative except as documented in HPI. Genitourinary symptoms: Negative except as documented in HPI. Musculoskeletal symptoms: Negative except as documented in HPI. Neurologic symptoms: Negative except as documented in HPI. Psychiatric symptoms: Negative except as documented in HPI. Endocrine symptoms: Negative except as documented in HPI. PFSH ED 2 PFSH: Medical History C. 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 Left axis deviation. Normal TX and QRS duration. Dyslipidemia (high LDL; low HDL) Benign essential hypertension with target blood pressure below 140/90 Atherosclerotic heart disease of [place] coronary artery without angina pectoris Status post left heart catheterization Recurrent UTI Gross hematuria Bipolar II disorder Surgical History Hx of bilateral hip replacements Hx of bladder repair surgery History of colonoscopy (~2017) History of coronary artery stent placement History of right knee surgery S/P appendectomy S/P hysterectomy S/P hernia repair S/P hip replacement Family History Family/Other Diabetes Other Cancer Social History Smoking and tobacco/nicotine status: unknown if used tobacco/nicotine Alcohol intake: never Substance/Drug Use: never Household members: spouse Marital status: Current occupational status: retired Physical Exam 2 Narrative: EXAM NARRATIVE: General: Alert, no acute distress. Skin: Warm, dry. Head: Normocephalic, atraumatic. Neck: Supple, trachea midline. Eye: Extraocular movements are intact. Ears, nose, mouth and throat: mucosa moist. Cardiovascular: Regular, Normal peripheral perfusion. Respiratory: Lungs are clear to auscultation, respirations are non-labored, breath sounds are equal, Symmetrical chest wall expansion. Gastrointestinal: Soft, Nontender, Non distended Musculoskeletal: Normal ROM, no deformity. Neurological: Alert and oriented, No focal neurological deficit observed. Psychiatric: Cooperative, appropriate mood & affect. Course 2 Vital Signs: Vital signs: Vital Signs Temperature 98.0 F 03/22/24 01:42 Pulse Rate 85 03/22/24 04:01 Respiratory Rate 18 03/22/24 04:01 Blood Pressure 185/65 03/22/24 04:01 Pulse Oximetry 98 03/22/24 04:01 Oxygen Delivery Me thod Room Air 03/22/24 04:01 MDM - Chest Pain Medical Decision Making Differential diagnosis for patient with chest pain includes but is not limited to and based on the above HPI, review of systems and physical exam: Pneumonia. unstable angina. angina. Acute coronary syndrome / [place]. Pulmonary embolism. Costochondritis / musculoskeletal. Pleurisy. Pericarditis. Esophageal spasm. Pancreatis. Cholecystitis. Orders placed to evaluate differential diagnosis based on the above differential, HPI and physical exam EKG: Time 1:44 AM. Rate 97. Normal sinus rhythm, No ST-T changes, no ectopy, normal TX & QRS intervals, This was reviewed and interpreted by myself the ER physician at 1:46 AM Chest x-ray: No acute process. No infiltrate. No pneumothorax. This was reviewed and interpreted by myself the ER physician. Lab Review: Laboratory results were reviewed and interpreted by myself the emergency room physician. No leukocytosis. No anemia. Sodium is 132 which is at or above her baseline. Her glucose is elevated at 268. BUN/creatinine are at baseline at 19 and 0.6. Serial troponins are unchanged. I reviewed the patient's medical record. Reexamination: Patient remained stable. No increased work of breathing. No altered mental status. No focal motor deficits. Assessment and plan: Noncardiac chest pain - Discharged home - Discussed plan with patient. Answered any questions. - Evaluation and treatment of this problem were appropriate in the emergency setting. Lab Data 03/22/24 01:45 03/22/24 01:45 Radiology Impressions Chest X-Ray 03/22/24 01:43 IMPRESSION: No acute findings. Laboratory Results WBC 6.30 10^3/uL (3.29-11.43) 03/22/24 01:45 RBC 3.97 10^6/uL (3.85-5.65) 03/22/24 01:45 Hgb 11.70 g/dL (11.27-16.99) 03/22/24 01:45 Hct 36.0 % (36-47) 03/22/24 01:45 MCV 90.7 fl (85-98) 03/22/24 01:45 MCH 29.5 pg (27-33) 03/22/24 01:45 MCHC 32.5 g/dL (30-55) 03/22/24 01:45 RDW 13.5 % (12.1-15.1) 03/22/24 01:45 Plt Count 203 10^3/cmm (157-399) 03/22/24 01:45 MPV 9.8 fL (7.4-10.4) 03/22/24 01:45 Neut % (Auto) 59.1 % 03/22/24 01:45 Lymph % (Auto) 24.6 % 03/22/24 01:45 [place] % (Auto) 11.1 % 03/22/24 01:45 Eos % (Auto) 4.4 % 03/22/24 01:45 Baso % (Auto) 0.3 % 03/22/24 01:45 Neut # (Auto) 3.72 10^3/uL (1.8-7.7) 03/22/24 01:45 Lymph # (Auto) 1.6 10^3/uL (0.8-4.8) 03/22/24 01:45 [place] # (Auto) 0.7 10^3/uL (0.2-0.9) 03/22/24 01:45 Eos # (Auto) 0.3 10^3/uL (0.0-0.8) 03/22/24 01:45 Baso # (Auto) 0.0 10^3/uL (0.0-0.1) 03/22/24 01:45 Nucleated RBC % (auto) 0 % 03/22/24 01:45 Nucleated RBCs # 0.0 /100WBC 03/22/24 01:45 Sodium 132 mmol/L (136-145) L 03/22/24 01:45 Potassium 3.1 mmol/L (3.5-5.1) L 03/22/24 01:45 Chloride 91 mmol/L (98-107) L 03/22/24 01:45 Carbon Dioxide 29 mmol/L (22-29) 03/22/24 01:45 Anion Gap 15.1 (5-19) 03/22/24 01:45 BUN 19 mg/dL (8-23) 03/22/24 01:45 Creatinine 0.6 mg/dL (0.5-0.9) 03/22/24 01:45 GFR Calculation Not Reportable 03/22/24 01:45 Glucose 268 mg/dL (65-115) H 03/22/24 01:45 Calculated Osmolality 286 mOsm/kg (285-295) 03/22/24 01:45 Calcium 9.3 mg/dL (8.5-10.5) 03/22/24 01:45 Total Bilirubin 0.3 mg/dL (0.15-1.2) 03/22/24 01:45 AST 22 U/L (0-32) 03/22/24 01:45 ALT 26 U/L (0-33) 03/22/24 01:45 Alkaline Phosphatase 194 U/L (35-105) H 03/22/24 01:45 Troponin T Baseline 21 ng/L (0-10) H 03/22/24 01:45 Troponin T 120 Minute 21.65 ng/L (0-10) H 03/22/24 03:55 Delta Troponin T 0.65 ABS# (0-10) 03/22/24 03:55 Total Protein 6.9 g/dL (6.6-8.7) 03/22/24 01:45 Albumin 3.9 g/dL (3.5-5.2) 03/22/24 01:45 Globulin 3.0 g/dL (1.3-4.6) 03/22/24 01:45 All radiology interpretation(s) finalized by discharge Discharge Plan Discharge Patient Disposition: Home Clinical Impression: Non-cardiac chest pain Condition: Stable Prescriptions: No Action cholecalciferol (vitamin D3) 1,000 unit capsule 1,000 unit PO QPM cranberry 500 mg capsule 500 mg PO QPM Lactobacillus acidophilus [Acidophilus] Capsule 1 cap PO QAM ferrous sulfate 325 mg (65 mg iron) tablet 325 mg PO DAILY@12 magnesium oxide 400 mg (241.3 mg magnesium) tablet 500 mg PO DAILY@12 furosemide 20 mg tablet 40 mg PO QAM Hold Instructions: Resume on 02/28/24. aripiprazole 2 mg tablet 2 mg PO BEDTIME Qty: 30 11RF hydrocodone-acetaminophen 10-325 mg tablet 1 tab PO Q4H MDD 6 PRN (Reason: pain) 7 Days Qty: 42 0RF potassium chloride 8 mEq capsule, extended release 24 meq PO QAM (DME) FreeStyle Tor 2 Sensor Kit See Rx Instructions .MEDSUPPLY Qty: 3 3RF Rx Instructions: As directed (DME) FreeStyle Tor 2 [place] Misc See Rx Instructions .Route Qty: 1 0RF Rx Instructions: As directed esomeprazole magnesium 40 mg capsule,delayed release(DR/EC) 40 mg PO QAM levalbuterol tartrate [Xopenex HFA] 45 mcg/actuation HFA aerosol inhaler 2 inh inhalation Q6H Qty: 15 3RF melatonin 3 mg capsule 3 mg PO DAILY (DME) blood sugar diagnostic Strip See Rx Instructions .Route Qty: 400 3RF Rx Instructions: Check blood sugar 4 times a day. (DME) lancets [Comfort EZ Lancets] 21 gauge misc See Rx Instructions .Route Qty: 400 3RF Rx Instructions: As directed (DME) Easymax 15 test strips Strip See Rx Instructions .Route Qty: 400 3RF Rx Instructions: Check BS 4 times a day. nitroglycerin 0.4 mg tablet, sublingual 0.4 mg sublingual Q5M PRN (Reason: chest pain) 30 Days Qty: 30 3RF Rx Instructions: until response; do not exceed 3 doses per episode fluticasone furoate-vilanterol [Breo Ellipta] 100-25 mcg/dose blister with device 1 inh inhalation DAILY Qty: 60 6RF isosorbide mononitrate 120 mg tablet extended release 24 hr 120 mg PO DAILY@12 Qty: 90 3RF hydrocortisone 10 mg tablet See Rx Instructions .ROUTE .COMPLEX Qty: 360 0RF Dose Instruction: TAKE 1 TABLET BY MOUTH FOUR TIMES DAILY Rx Instructions: TAKE 1 TABLET BY MOUTH FOUR TIMES DAILY atorvastatin 40 mg tablet 40 mg PO BEDTIME Qty: 90 3RF (DME) pen needle, diabetic [BD Ultra-Fine Mini Pen Needle] 31 gauge x 3/16 needle See Rx Instructions .ROUTE .COMPLEX Qty: 400 0RF Dose Instruction: USE WITH INSULIN FOUR TIMES DAILY Rx Instructions: USE WITH INSULIN FOUR TIMES DAILY vitamin E 1,000 unit Capsule 1,000 unit PO QAM ascorbic acid (vitamin C) [Vitamin C] 500 mg Tablet,Chewable 500 mg PO QNOON ondansetron 4 mg tablet,disintegrating 4 mg PO Q8H PRN (Reason: nausea and vomiting) Qty: 7 0RF lactulose 10 gram/15 mL solution 15 ml PO DAILY PRN (Reason: Constipation) metolazone 2.5 mg tablet 2.5 mg PO QAM Hold Instructions: Resume on 02/28/24. Humalog KwikPen Insulin 100 unit/mL insulin pen See Rx Instructions .ROUTE .COMPLEX 90 Days Qty: 75.6 1RF Rx Instructions: Inject, subcut, 3 times daily, after meals, based on sliding scale provided Tresiba FlexTouch U-200 200 unit/mL (3 mL) insulin pen See Rx Instructions .ROUTE .COMPLEX Qty: 18 0RF Dose Instruction: ADMINISTER 44 UNITS UNDER THE SKIN DAILY Rx Instructions: ADMINISTER 20 UNITS UNDER THE SKIN DAILY Discharge Orders: Discharge ED (Routine); Ordered 03/22/24 Ordered By: Suzy Juarez Referrals: Arabella Orta MD [Primary Care Provider] - Discharge Diet: Usual diet Discharge Activity: Increase activity as tolerated Patient Instructions: Noncardiac Chest Pain (ED), Opioid Safety, Pain Management Activity Restrictions/Additional Instructions: Thank you for choosing [facility] for your healthcare needs today. Please realize this is an emergency room and that we are providing you with a medical screening exam and this may not be complete and all inclusive of all the testing and or work up that you may need to determine your ailment or severity of your illness. You have been screened and evaluated and felt safe for discharge. Health conditions do change or evolve sometimes and as such it is important that you follow up with your Primary Doctor to be re checked, 3-5 days is a general good time frame for follow up. You are always welcome to return to the ED for re assessment if your symptoms are worsening or you have new concerns Coding Level of Care Code ED Link [employer] Operator for [employer]
--- NOTE | 2024-03-22 03:43 | ECG_ITS ---
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 Measurements Intervals [place] Rate: 78 P: 40 TN: 178 QRS: -29 QRSD: 106 T: 78 QT: 385 QTc: 439 Interpretive Statements SINUS RHYTHM LEFT AXIS DEVIATION [QRS AXIS < -20] INCOMPLETE RIGHT BUNDLE BRANCH BLOCK [90+ ms QRS DURATION, TERMINAL R IN V1/V2, 40+ ms S IN I/aVL/V4/V5/V6] NONSPECIFIC T-WAVE ABNORMALITY Compared to ECG 03/22/2024 01:44:35 No significant changes Electronically Signed On 03-22-2024 17:15:25 CDT by Sarah Black M.D. [email or web address]
[2024-03-22 04:01] VITALS: BP 185/65; PULSE 85; RESP 18; O2SAT 98
[2024-03-22 04:24] LABS: Troponin 5 2HR 21.65 ng/L (0-10); Troponin 5 2HR Delta 0.65 ABS# (0-10)
[2024-03-22 05:12] VITALS: BP 155/64; PULSE 87; O2SAT 95
== END 2024-03-22 05:14 | disposition home or self-care (01) ==
PROVIDERS: Emergency Provider Emergency Medicine; PCP Family Medicine
DX: R07.89 Other chest pain (principal); E11.9 Type 2 diabetes mellitus without complications; I10 Essential (primary) hypertension; Z79.4 Long term (current) use of insulin
CPT/HCPCS: 71045; 80053; 84484; 85025; 93005; 99285

== ENCOUNTER 2024-04-04 15:29 | Outpatient (CLI) | payer MEDICARE, OTHER, SELFPAY ==
[2024-04-04 16:17] LABS: Blood Urea Nitrogen 19 mg/dL (8-23); Calcium 9.7 mg/dL (8.5-10.5); Carbon Dioxide 31 mmol/L (22-29); Chloride 91 mmol/L (98-107); Glucose 279 mg/dL (65-115); Osmolality Calculated 290 mOsm/kg (285-295); Sodium 134 mmol/L (136-145)
[2024-04-04 16:27] LABS: Anion Gap 15.7 (5-19); Potassium 3.7 mmol/L (3.5-5.1)
== END 2024-04-04 15:30 | disposition home or self-care (01) ==
LOC: LAB 15:30
PROVIDERS: PCP Family Medicine; Visit Provider Family Medicine
DX: E87.1 Hypo-osmolality and hyponatremia (principal)
CPT/HCPCS: 80048

== ENCOUNTER 2024-04-16 23:05 | Emergency (ER) | payer MEDICARE, OTHER, SELFPAY ==
--- NOTE | 2024-04-16 23:10 | XRR_ITS ---
PROCEDURE INFORMATION: Exam: XR Chest Exam date and time: 04/16/2024 11:15 PM Age: 78 years old Clinical indication: Other: General weakness TECHNIQUE: Imaging protocol: Radiologic exam of the chest. Views: 1 view. COMPARISON: CR (CHEST, ) 03/22/2024 1:53 AM FINDINGS: Lungs: Unremarkable. No consolidation. Pleural spaces: Unremarkable. No pleural effusion. No pneumothorax. Heart/Mediastinum: Unremarkable. No cardiomegaly. Bones/joints: Old left-sided rib fractures. XR/XR chest 1V portable [id number] IMPRESSION: As above.
--- NOTE | 2024-04-16 23:10 | XRR_ITS ---
PROCEDURE INFORMATION: Exam: XR Abdomen Exam date and time: 04/16/2024 11:15 PM Age: 78 years old Clinical indication: Prior surgery; Surgery date: 6+ months; Surgery type: Lumbar. Bilat juan; Patient HX: C/O constipation TECHNIQUE: Imaging protocol: Radiologic exam of the abdomen. Views: Frontal supine view of the abdomen. 1 View. COMPARISON: CT abdomen pelvis wo con [id number] 02/19/2024 11:54 AM FINDINGS: Tubes, catheters and devices: The hardware appears in similar position. Gastrointestinal tract: Large amount of retained stool in the colon from constipation. Bones/joints: Postoperative changes bilateral total hip arthroplasty. There are no gross displaced fractures. Soft tissues: Limited study due to patient body habitus under penetration. XR/XR [facility] [id number] IMPRESSION: As above.
[2024-04-16 23:16] VITALS: BP 198/66; PULSE 95; RESP 20; TEMP 37; O2SAT 96; BMI 37.4
--- NOTE | 2024-04-16 23:20 | ECG_ITS ---
[facility] Date: 2024-[facility]16 Pat Name: Brandi Berg Department: Room: Gender: Female Forcer Maker: : 1945 Requested By: Enrico Camejo Order Number: [id number] Reading MD: STEPH CHAUDHRY Measurements Intervals [place] Rate: 97 P: 99 AK: 211 QRS: -22 QRSD: 97 T: 83 QT: 351 QTc: 446 Interpretive Statements SINUS RHYTHM WITH FIRST DEGREE AV BLOCK BORDERLINE LEFT AXIS DEVIATION [QRS AXIS < -20] NONSPECIFIC T-WAVE ABNORMALITY Compared to ECG 03/22/2024 03:45:47 First degree AV block now present Incomplete right bundle-branch block no longer present T-wave abnormality still present Electronically Signed On 04-17-2024 18:55:32 DETAILER FURNITURE by STEPH CHAUDHRY [id number]
--- NOTE | 2024-04-16 23:22 | ED_ITS ---
HPI - Weakness 2 General: Chief complaint: Weakness Stated complaint: WEAKNESS Time Seen by Provider: 04/16/24 23:08 Source: patient and EMS Mode of arrival: EMS Limitations: no limitations History of Present Illness: 78-year-old female is well-known to the ER states she has been feeling generally weak over the last few days. She states she has a history of hyponatremia is concerned her sodium may be low. She states she is also had some constipation she denies any abdominal pain denies any vomiting or diarrhea. She denies any chest pain Associated symptoms: Denies chest pain, chills, dysuria, fever(s), headache(s), nausea or vomiting Review of Systems 2 Const: Reports: fatigue; Denies: fever(s), chills, body aches or change in appetite ENMT: Denies: throat pain or dental pain Card: Denies: chest pain Resp: Denies: dyspnea GI: Reports: constipation; Denies: abdominal pain, nausea, vomiting or diarrhea : Denies: dysuria Musc: Denies: neck pain or back pain Skin/Breast: Denies: rash Neuro: Denies: headache(s) PFSH ED 2 PFSH: Medical History C. 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 Left axis deviation. Normal NV and QRS duration. Dyslipidemia (high LDL; low HDL) Benign essential hypertension with target blood pressure below 140/90 Atherosclerotic heart disease of [place] coronary artery without angina pectoris Status post left heart catheterization Recurrent UTI Gross hematuria Bipolar II disorder Surgical History Hx of bilateral hip replacements Hx of bladder repair surgery History of colonoscopy (~2018) History of coronary artery stent placement History of right knee surgery S/P appendectomy S/P hysterectomy S/P hernia repair S/P hip replacement Family History Family/Other Diabetes Other Cancer Social History Smoking and tobacco/nicotine status: unknown if used tobacco/nicotine Alcohol intake: never Substance/Drug Use: never Household members: spouse Marital status: Current occupational status: retired Physical Exam 2 Const: COMMON NORMALS: no acute distress, patient oriented x3 and healthy appearing HENMT: COMMON NORMALS: normocephalic and atraumatic HEAD & SCALP: n ormocephalic and atraumatic Eye: COMMON NORMALS: conjunctivae normal CONJUNCTIVA: Yes conjunctivae normal Neck/C-Spine: COMMON NORMALS: full ROM and supple Chest: COMMONS NORMALS: normal inspection of the chest and normal palpation of entire chest wall Resp: COMMON NORMALS: normal respiratory effort, No retractions, No use of accessory muscles and clear to auscultation bilaterally AUSCULTATION: clear to auscultation bilaterally Cardio: COMMON NORMALS: regular rate, regular rhythm and No murmurs present (Cardio) RATE: regular rate RHYTHM: regular rhythm GI: COMMON NORMALS: Normal to inspection, nondistended, normoactive bowel sounds present, Soft to palpation, non-tender and no masses PALPATION: Yes Soft to palpation Extremity: COMMON NORMALS: normal to inspection and full ROM Neuro: COMMON NORMALS: patient oriented x3, moves all extremities and no focal motor deficits Psych: COMMON NORMALS: mental status grossly normal, Normal thought process present and cooperative THOUGHT PROCESS: Normal thought process present Skin: COMMON NORMALS: no rashes or lesions noted and no wounds GENERAL SKIN EXAM: no rashes or lesions noted Course 2 Vital Signs: Vital signs: Vital Signs Temperature 98.6 F 04/16/24 23:16 Pulse Rate 95 04/16/24 23:16 Respiratory Rate 20 H 04/16/24 23:16 Blood Pressure 198/66 04/16/24 23:16 Pulse Oximetry 96 04/16/24 23:16 MDM - Weakness Medical Decision Making Patient presents with generalized weakness blood work here is normal no hyponatremia she feels improved here she also has constipation did give her lactulose she is to take her lactulose and MiraLAX at home she stable for discharge follow-up PCP return if worsening. Medical Records I reviewed the patient's medical records. Lab Data I reviewed the patient's lab results. 04/16/24 23:36 04/16/24 23:36 Radiology Impressions Chest X-Ray 04/16/24 23:10 IMPRESSION: As above. KUB X-Ray 04/16/24 23:10 IMPRESSION: As above. Laboratory Results WBC 7.79 10^3/uL (3.29-11.43) 04/16/24 23:36 RBC 4.34 10^6/uL (3.85-5.65) 04/16/24 23:36 Hgb 12.70 g/dL (11.27-16.99) 04/16/24 23:36 Hct 38.6 % (36-47) 04/16/24 23:36 MCV 88.9 fl (85-98) 04/16/24 23:36 MCH 29.3 pg (27-33) 04/16/24 23:36 MCHC 32.9 g/dL (30-55) 04/16/24 23:36 RDW 13.2 % (12.1-15.1) 04/16/24 23:36 Plt Count 222 10^3/cmm (157-399) 04/16/24 23:36 MPV 9.6 fL (7.4-10.4) 04/16/24 23:36 Neut % (Auto) 62.9 % 04/16/24 23:36 Lymph % (Auto) 24.0 % 04/16/24 23:36 Sherman % (Auto) 10.0 % 04/16/24 23:36 Eos % (Auto) 2.1 % 04/16/24 23:36 Baso % (Auto) 0.5 % 04/16/24 23:36 Neut # (Auto) 4.90 10^3/uL (1.8-7.7) 04/16/24 23:36 Lymph # (Auto) 1.9 10^3/uL (0.8-4.8) 04/16/24 23:36 Sherman # (Auto) 0.8 10^3/uL (0.2-0.9) 04/16/24 23:36 Eos # (Auto) 0.2 10^3/uL (0.0-0.8) 04/16/24 23:36 Baso # (Auto) 0.0 10^3/uL (0.0-0.1) 04/16/24 23:36 Nucleated RBC % (auto) 0 % 04/16/24 23:36 Nucleated RBCs # 0.0 /100WBC 04/16/24 23:36 Sodium 135 mmol/L (136-145) L 04/16/24 23:36 Potassium 3.4 mmol/L (3.5-5.1) L 04/16/24 23:36 Chloride 91 mmol/L (98-107) L 04/16/24 23:36 Carbon Dioxide 29 mmol/L (22-29) 04/16/24 23:36 Anion Gap 18.4 (5-19) 04/16/24 23:36 BUN 15 mg/dL (8-23) 04/16/24 23:36 Creatinine 0.6 mg/dL (0.5-0.9) 04/16/24 23:36 GFR Calculation Not Reportable 04/16/24 23:36 Glucose 244 mg/dL (65-115) H 04/16/24 23:36 Calculated Osmolality 289 mOsm/kg (285-295) 04/16/24 23:36 Calcium 10.5 mg/dL (8.5-10.5) 04/16/24 23:36 Total Bilirubin 0.6 mg/dL (0.15-1.2) 04/16/24 23:36 AST 26 U/L (0-32) 04/16/24 23:36 ALT 29 U/L (0-33) 04/16/24 23:36 Alkaline Phosphatase 176 U/L (35-105) H 04/16/24 23:36 Total Protein 7.4 g/dL (6.6-8.7) 04/16/24 23:36 Albumin 4.0 g/dL (3.5-5.2) 04/16/24 23:36 Globulin 3.4 g/dL (1.3-4.6) 04/16/24 23:36 Lipase 12 U/L (13-60) L 04/16/24 23:36 All radiology interpretation(s) finalized by discharge EKG Data EKG 1: I personally reviewed and interpreted this EKG as follows: EKG interpretation date: 04/16/24 EKG interpretation time: 23:20 Interpretation: nsr hr [address] elevation qrs 97 qtc 405 Discharge Plan Discharge Patient Disposition: Home Clinical Impression: Generalized weakness, Constipation Condition: Stable Prescriptions: No Action cholecalciferol (vitamin D3) 1,000 unit capsule 1,000 unit PO QPM cranberry 500 mg capsule 500 mg PO QPM Lactobacillus acidophilus [Acidophilus] Capsule 1 cap PO QAM ferrous sulfate 325 mg (65 mg iron) tablet 325 mg PO DAILY@12 magnesium oxide 400 mg (241.3 mg magnesium) tablet 500 mg PO DAILY@12 furosemide 20 mg tablet 40 mg PO QAM Hold Instructions: Resume on 02/28/24. aripiprazole 2 mg tablet 2 mg PO BEDTIME Qty: 30 11RF potassium chloride 8 mEq capsule, extended release 24 meq PO QAM (DME) FreeStyle Tor 2 Sensor Kit See Rx Instructions .MEDSUPPLY Qty: 3 3RF Rx Instructions: As directed (DME) FreeStyle Tor 2 [place] Misc See Rx Instructions .Route Qty: 1 0RF Rx Instructions: As directed esomeprazole magnesium 40 mg capsule,delayed release(DR/EC) 40 mg PO QAM levalbuterol tartrate [Xopenex HFA] 45 mcg/actuation HFA aerosol inhaler 2 inh inhalation Q6H Qty: 15 3RF melatonin 3 mg capsule 3 mg PO DAILY (DME) blood sugar diagnostic Strip See Rx Instructions .Route Qty: 400 3RF Rx Instructions: Check blood sugar 4 times a day. (DME) lancets [Comfort EZ Lancets] 21 gauge misc See Rx Instructions .Route Qty: 400 3RF Rx Instructions: As directed (DME) Easymax 15 test strips Strip See Rx Instructions .Route Qty: 400 3RF Rx Instructions: Check BS 4 times a day. nitroglycerin 0.4 mg tablet, sublingual 0.4 mg sublingual Q5M PRN (Reason: chest pain) 30 Days Qty: 30 3RF Rx Instructions: until response; do not exceed 3 doses per episode fluticasone furoate-vilanterol [Breo Ellipta] 100-25 mcg/dose blister with device 1 inh inhalation DAILY Qty: 60 6RF isosorbide mononitrate 120 mg tablet extended release 24 hr 120 mg PO DAILY@12 Qty: 90 3RF hydrocortisone 10 mg tablet See Rx Instructions .ROUTE .COMPLEX Qty: 360 0RF Dose Instruction: TAKE 1 TABLET BY MOUTH FOUR TIMES DAILY Rx Instructions: TAKE 1 TABLET BY MOUTH FOUR TIMES DAILY atorvastatin 40 mg tablet 40 mg PO BEDTIME Qty: 90 3RF (DME) pen needle, diabetic [BD Ultra-Fine Mini Pen Needle] 31 gauge x 3/16 needle See Rx Instructions .ROUTE .COMPLEX Qty: 400 0RF Dose Instruction: USE WITH INSULIN FOUR TIMES DAILY Rx Instructions: USE WITH INSULIN FOUR TIMES DAILY insulin degludec [Tresiba FlexTouch U-200] 200 unit/mL (3 mL) insulin pen 64 unit SUBCUT DAILY 30 Days Qty: 9 3RF hydrocodone-acetaminophen 10-325 mg tablet 1 tab PO Q4H MDD 6 PRN (Reason: pain) 7 Days Qty: 42 0RF vitamin E 1,000 unit Capsule 1,000 unit PO QAM ascorbic acid (vitamin C) [Vitamin C] 500 mg Tablet,Chewable 500 mg PO QNOON ondansetron 4 mg tablet,disintegrating 4 mg PO Q8H PRN (Reason: nausea and vomiting) Qty: 7 0RF lactulose 10 gram/15 mL solution 15 ml PO DAILY PRN (Reason: Constipation) metolazone 2.5 mg tablet 2.5 mg PO QAM Hold Instructions: Resume on 02/28/24. 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 Fwd Related Data Home Medications Medication Instructions Recorded Confirmed Lactobacillus acidophilus 1 cap PO QAM 06/01/19 03/10/24 (Acidophilus capsule) cholecalciferol (vitamin D3) 25 1,000 unit PO QPM 06/01/19 03/10/24 mcg (1,000 unit) capsule cranberry 500 mg capsule 500 mg PO QPM 06/01/19 03/10/24 ferrous sulfate 325 mg (65 mg 325 mg PO DAILY@06/21/19 03/10/24 iron) tablet magnesium oxide 400 mg (241.3 mg 500 mg PO DAILY@12 02/14/21 03/10/24 magnesium) tablet ascorbic acid (vitamin C) 500 mg 500 mg PO QNOON 11/14/21 03/10/24 chewable tablet (Vitamin C) vitamin E 670 mg (1,000 unit) 1,000 unit PO QAM 11/14/21 03/10/24 capsule esomeprazole magnesium 40 mg 40 mg PO QAM 05/19/22 03/10/24 capsule,delayed release furosemide 20 mg tablet 40 mg PO QAM 05/19/22 03/10/24 potassium chloride 8 mEq 24 meq PO QAM 05/19/22 03/10/24 capsule,extended release metolazone 2.5 mg tablet 2.5 mg PO QAM 04/05/23 03/10/24 lactulose 10 gram/15 mL oral 15 ml PO DAILY PRN Constipation 06/23/23 03/10/24 solution melatonin 3 mg capsule 3 mg PO DAILY 11/18/23 03/10/24 Previous Rx's Medication Instructions Recorded blood sugar diagnostic #400 ea 09/02/21 lancets 21 gauge (Comfort EZ #400 ea 09/02/21 Lancets) blood sugar diagnostic (Easymax 15 #400 ea 09/11/21 test strips) flash glucose scanning reader #1 ea 02/17/22 (FreeStyle Tor 2 [place]) flash glucose sensor (FreeStyle #3 ea 02/17/22 Tor 2 Sensor kit) ondansetron 4 mg disintegrating 4 mg PO Q8H PRN nausea and 04/24/22 tablet vomiting #7 tabs nitroglycerin 0.4 mg sublingual 0.4 mg sublingual Q5M PRN chest 08/04/23 tablet pain 30 days #30 tabs aripiprazole 2 mg tablet 2 mg PO BEDTIME #30 tabs 08/12/23 levalbuterol tartrate 45 2 inh inhalation Q6H #15 grams 09/13/23 mcg/actuation aerosol inhaler (Xopenex HFA) fluticasone furoate 100 1 inh inhalation DAILY #60 ea 09/20/23 mcg-vilanterol 25 mcg/dose inhalation powder (Breo Ellipta) isosorbide mononitrate 120 mg 120 mg PO DAILY@12 #90 tabs 09/20/23 tablet,extended release 24 hr hydrocortisone 10 mg tablet See Rx Instructions .Route 01/14/24 .COMPLEX #360 tabs atorvastatin 40 mg tablet 40 mg PO BEDTIME #90 tabs 01/28/24 pen needle, diabetic 31 gauge x #400 ea 02/03/24 3/16 (BD Ultra-Fine Mini Pen Needle) insulin lispro 100 unit/mL See Rx Instructions .Route 02/21/24 subcutaneous pen (Humalog KwikPen .COMPLEX 90 days #75.6 mL (U-100) Insulin) insulin degludec 200 unit/mL (3 64 unit (0.32 mL) SUBCUT DAILY 30 04/06/24 mL) subcutaneous pen (Tresiba days #9 mL FlexTouch U-200 insulin) hydrocodone 10 mg-acetaminophen 1 tab PO Q4H PRN pain 7 days #42 04/10/24 325 mg tablet tabs Allergies Allergy/AdvReac Type Severity Reaction Status Date / Time morphine Allergy Severe RESPIRATORY Verified 03/22/24 01:52 DISTRESS doxycycline Allergy Mild THROAT Verified 03/22/24 01:52 SWELLING duloxetine [From Cymbalta] Allergy Mild SWELLING, Verified 03/22/24 01:52 VOMITING metformin Allergy Mild THROAT Verified 03/22/24 01:52 SWELLING oxybutynin [From Oxytrol] Allergy Mild ALGY-Rash Verified 03/22/24 01:52 Penicillins Allergy Mild ALGY-Rash Verified 03/22/24 01:52 Sulfa (Sulfonamide Allergy Mild STOMACH Verified 03/22/24 01:52 Antibiotics) CRAMPS alprazolam [From Xanax] Allergy Unknown Unknown Verified 03/22/24 01:52 amitriptyline Allergy Unknown Unknown Verified 03/22/24 01:52 Barbiturates Allergy Unknown stomach Verified 03/22/24 01:52 cramps cefuroxime [From Ceftin] Allergy Unknown stomach Verified 03/22/24 01:52 cramps insulin detemir Allergy Unknown Unknown Verified 03/22/24 01:52 [From Levemir U-100 Insulin] levofloxacin [From Levaquin] Allergy Unknown Unknown Verified 03/22/24 01:52 liraglutide [From Victoza] Allergy Unknown Unknown Verified 03/22/24 01:52 metoclopramide [From Reglan] Allergy Unknown Unknown Verified 03/22/24 01:52 nitrofurantoin Allergy Unknown Unknown Verified 03/22/24 01:52 [From Macrobid] pregabalin [From Lyrica] Allergy Unknown Unknown Verified 03/22/24 01:52 divalproex sodium Allergy ALGY-Hives Verified 03/22/24 01:52 [From Depakote] gabapentin Allergy bone, Verified 03/22/24 01:52 muscle pain and mood swings venlafaxine Allergy Unknown Verified 03/22/24 01:52 meloxicam AdvReac Severe ADR-Vomitin Verified 03/22/24 01:52 g ciprofloxacin [From Cipro] AdvReac Mild stomach Verified 03/22/24 01:52 upset hydromorphone [From Dilaudid] AdvReac Unknown PT STATES Verified 03/22/24 01:52 IT MAKES ME CRAZY
[2024-04-16 23:43] LABS: Basophils % 0.5 %; Eosinophils # 0.2 10^3/uL (0.0-0.8); Eosinophils % 2.1 %; Hematocrit 38.6 % (36-47); Lymphocytes # 1.9 10^3/uL (0.8-4.8); Mean Corpuscular HGB Conc 32.9 g/dL (30-55); Mean Corpuscular Hemoglobin 29.3 pg (27-33); Mean Corpuscular Volume 88.9 fl (85-98); Mean Platelet Volume 9.6 fL (7.4-10.4); Monocytes # 0.8 10^3/uL (0.2-0.9); Neutrophils % 62.9 %; Nucleated Red Blood Cells % 0 %; Platelet Count 222 10^3/cmm (157-399); Red Blood Count 4.34 10^6/uL (3.85-5.65); Red Cell Distribution Width 13.2 % (12.1-15.1); White Blood Count 7.79 10^3/uL (3.29-11.43)
[2024-04-16] MEDS: lactulose oral liq 20 gm/30 mL UDC 30 GM PO (23:55)
[2024-04-16] MEDS: HYDROcodone-acetaminophen 5-325 mg Tablet 1 TAB PO (23:55)
[2024-04-16] MEDS: ondansetron 2 mg/ML SDV 2 mL 4 MG IVP (23:55)
[2024-04-17 00:04] LABS: Alanine Aminotransferase 29 U/L (0-33); Alkaline Phosphatase 176 U/L (35-105); Anion Gap 18.4 (5-19); Aspartate Amino Transferase 26 U/L (0-32); Blood Urea Nitrogen 15 mg/dL (8-23); Calcium 10.5 mg/dL (8.5-10.5); Carbon Dioxide 29 mmol/L (22-29); Chloride 91 mmol/L (98-107); Creatinine Clr Calc Pharmacy 66.4268; Globulin 3.4 g/dL (1.3-4.6); Glucose 244 mg/dL (65-115); Lipase 12 U/L (13-60); Osmolality Calculated 289 mOsm/kg (285-295); Potassium 3.4 mmol/L (3.5-5.1); Sodium 135 mmol/L (136-145); Total Bilirubin 0.6 mg/dL (0.15-1.2); Total Protein 7.4 g/dL (6.6-8.7)
[2024-04-17] MEDS: Fleet Enema 133 mL Enema PR (01:10)
[2024-04-17 02:14] VITALS: BP 187/68; PULSE 68; O2SAT 97
== END 2024-04-17 02:16 | disposition home or self-care (01) ==
PROVIDERS: Emergency Provider Emergency Medicine; PCP Family Medicine
DX: R53.1 Weakness (principal); K59.00 Constipation, unspecified; Z79.4 Long term (current) use of insulin; E78.5 Hyperlipidemia, unspecified
CPT/HCPCS: 36415; 71045; 74018; 80053; 83690; 85025; 93005; 96374; 99285; J2405

== ENCOUNTER 2024-04-19 01:22 | Emergency (ER) | payer MEDICARE, OTHER, SELFPAY ==
[2024-04-19] VITALS (18 sets, daily range): BP systolic 141–201; BP diastolic 53–74; PULSE 80–105; RESP 15–21; TEMP 36.7; O2SAT 93–97; BMI 36.8
--- NOTE | 2024-04-19 01:30 | ED_ITS ---
HPI - Weakness 2 General: Chief complaint: Weakness Stated complaint: WEAKNESS Time Seen by Provider: 04/19/24 01:24 History of Present Illness: 78-year-old female with a history of alex betes, coronary artery disease, hyperlipidemia, hypertension and bipolar disorder who presents the emergency room by ambulance with generalized weakness. Says she thinks she is having an [place] crisis. I do not see [place] disease listed in her history but she does have hydrocortisone and she took several of these at home. She is hypertensive on presentation. She is also very tearful. She has no other symptoms other than generalized weakness. No fevers. No cough. No chest pain. No shortness of breath. No abdominal pain. No altered mental status. No focal motor deficits. Review of Systems 2 Narrative: Constitutional symptoms: Negative except as documented in HPI. Skin symptoms: Negative except as documented in HPI. Eye symptoms: Negative except as documented in HPI. ENMT symptoms: Negative except as documented in HPI. Respiratory symptoms: Negative except as documented in HPI. Cardiovascular symptoms: Negative except as documented in HPI. Gastrointestinal symptoms: Negative except as documented in HPI. Genitourinary symptoms: Negative except as documented in HPI. Musculoskeletal symptoms: Negative except as documented in HPI. Neurologic symptoms: Negative except as documented in HPI. Psychiatric symptoms: Negative except as documented in HPI. Endocrine symptoms: Negative except as documented in HPI. PFSH ED 2 PFSH: Medical History C. 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 Left axis deviation. Normal [place] and QRS duration. Dyslipidemia (high LDL; low HDL) Benign essential hypertension with target blood pressure below 140/90 Atherosclerotic heart disease of [place] coronary artery without angina pectoris Status post left heart catheterization Recurrent UTI Gross hematuria Bipolar II disorder Surgical History Hx of bilateral hip replacements Hx of bladder repair surgery History of colonoscopy (~2018) History of coronary artery stent placement History of right knee surgery S/P appendectomy S/P hysterectomy S/P hernia repair S/P hip replacement Family History Family/Other Diabetes Other Cancer Social History Smoking and tobacco/nicotine status: unknown if used tobacco/nicotine Alcohol intake: never Substance/Drug Use: never Household members: spouse Marital status: Current occupational status: retired Physical Exam 2 Narrative: EXAM NARRATIVE: General: Alert, no acute distress. Skin: Warm, dry. Head: Normocephalic, atraumatic. Neck: Supple, trachea midline. Eye: Extraocular movements are intact. Ears, nose, mouth and throat: mucosa moist. Cardiovascular: Regular, Normal peripheral perfusion. Respiratory: Lungs are clear to auscultation, respirations are non-labored, breath sounds are equal, Symmetrical chest wall expansion. Gastrointestinal: Soft, Nontender, Non distended Musculoskeletal: Normal ROM, no deformity. Neurological: Alert and oriented, No focal neurological deficit observed. Psychiatric: Cooperative, tearful Course 2 Vital Signs: Vital signs: Vital Signs Temperature 98.1 F 04/19/24 01:24 Pulse Rate 80 04/19/24 03:00 Respiratory Rate 15 04/19/24 01:27 Blood Pressure 176/74 04/19/24 02:45 Pulse Oximetry 93 04/19/24 03:00 Oxygen Delivery Me thod Room Air 04/19/24 01:24 MDM - Weakness Medical Decision Making Medical decision making: Differential diagnosis for patient presenting with generalized weakness including but not limited to and based on the above HPI, review of systems and physical exam: Sepsis. Dehydration. Renal failure. Electrolyte abnormalities. Anemia. Congestive heart failure. Hypotension. Coronary syndrome. Hepatitis. Cirrhosis. Infections such as pneumonia, urinary tract infection, [place] illness, Cellulitis, Viral infections including influenza and Covid-19. Workup: labwork and lab/exam driven imaging ordered to evaluate, rule in and rule out above pathologies. Lab Review: Laboratory results were reviewed and interpreted by myself the emergency room physician. No leukocytosis. No anemia. No renal failure. Glucose is mildly elevated at 233. Patient does have evidence of a mild urinary tract infection with 6-10 whites and leukocyte esterase positive. Flu COVID and RSV are negative I reviewed the patient's medical record. Reexamination: Patient remained stable. No increased work of breathing. No altered mental status. No focal motor deficits. Assessment and plan: Urinary tract infection ?IV Rocephin in the emergency room - Discharged home - Discussed plan with patient. Answered any questions. - Evaluation and treatment of this problem were appropriate in the emergency setting. Lab Data 04/19/24 02:30 04/19/24 02:30 Laboratory Results WBC 7.02 10^3/uL (3.29-11.43) 04/19/24 02:30 RBC 3.98 10^6/uL (3.85-5.65) 04/19/24 02:30 Hgb 11.70 g/dL (11.27-16.99) 04/19/24 02:30 Hct 35.3 % (36-47) L 04/19/24 02:30 MCV 88.7 fl (85-98) 04/19/24 02:30 MCH 29.4 pg (27-33) 04/19/24 02:30 MCHC 33.1 g/dL (30-55) 04/19/24 02:30 RDW 13.2 % (12.1-15.1) 04/19/24 02:30 Plt Count 217 10^3/cmm (157-399) 04/19/24 02:30 MPV 9.9 fL (7.4-10.4) 04/19/24 02:30 Neut % (Auto) 64.6 % 04/19/24 02:30 Lymph % (Auto) 20.4 % 04/19/24 02:30 Will % (Auto) 11.4 % 04/19/24 02:30 Eos % (Auto) 2.7 % 04/19/24 02:30 Baso % (Auto) 0.3 % 04/19/24 02:30 Neut # (Auto) 4.54 10^3/uL (1.8-7.7) 04/19/24 02:30 Lymph # (Auto) 1.4 10^3/uL (0.8-4.8) 04/19/24 02:30 Will # (Auto) 0.8 10^3/uL (0.2-0.9) 04/19/24 02:30 Eos # (Auto) 0.2 10^3/uL (0.0-0.8) 04/19/24 02:30 Baso # (Auto) 0.0 10^3/uL (0.0-0.1) 04/19/24 02:30 Nucleated RBC % (auto) 0 % 04/19/24 02:30 Nucleated RBCs # 0.0 /100WBC 04/19/24 02:30 Sodium 137 mmol/L (136-145) 04/19/24 02:30 Potassium 3.2 mmol/L (3.5-5.1) L 04/19/24 02:30 Chloride 96 mmol/L (98-107) L 04/19/24 02:30 Carbon Dioxide 28 mmol/L (22-29) 04/19/24 02:30 Anion Gap 16.2 (5-19) 04/19/24 02:30 BUN 14 mg/dL (8-23) 04/19/24 02:30 Creatinine 0.6 mg/dL (0.5-0.9) 04/19/24 02:30 GFR Calculation Not Reportable 04/19/24 02:30 Glucose 233 mg/dL (65-115) H 04/19/24 02:30 Calculated Osmolality 292 mOsm/kg (285-295) 04/19/24 02:30 Lactic Acid 3.1 mmol/L (0.5-2.2) H 04/19/24 02:47 Calcium 10.0 mg/dL (8.5-10.5) 04/19/24 02:30 Total Bilirubin 0.4 mg/dL (0.15-1.2) 04/19/24 02:30 AST 24 U/L (0-32) 04/19/24 02:30 ALT 26 U/L (0-33) 04/19/24 02:30 Alkaline Phosphatase 158 U/L (35-105) H 04/19/24 02:30 Total Protein 6.9 g/dL (6.6-8.7) 04/19/24 02:30 Albumin 3.8 g/dL (3.5-5.2) 04/19/24 02:30 Globulin 3.1 g/dL (1.3-4.6) 04/19/24 02:30 Urine Color Yellow (Yellow) 04/19/24 02:16 Urine Appearance Clear (CLEAR) 04/19/24 02:16 Urine pH 6.5 (5-7) 04/19/24 02:16 Ur Specific [place] 1.009 (1.005-1.030) 04/19/24 02:16 Urine Protein Negative (Negative) 04/19/24 02:16 Urine Glucose (UA) Negative (Normal) 04/19/24 02:16 Urine Ketones Negative (Negative) 04/19/24 02:16 Urine Blood Negative (Negative) 04/19/24 02:16 Urine Nitrate Negative (Negative) 04/19/24 02:16 Urine Bilirubin Negative (Negative) 04/19/24 02:16 Urine Urobilinogen 0.2 mg/dL (Negative) 04/19/24 02:16 Ur Leukocyte Esterase 1+ (Negative) A 04/19/24 02:16 Urine RBC 0-2 /hpf (0-2) 04/19/24 02:16 Urine WBC 6-10 /hpf (0-5) 04/19/24 02:16 Ur Squamous Epith Cells 0-5 /hpf (0-5) 04/19/24 02:16 Amorphous Sediment Not Reportable 04/19/24 02:16 Urine Bacteria Trace /hpf (NONE) 04/19/24 02:16 Hyaline Casts 0-4 /lpf H 04/19/24 02:16 Coronavirus (PCR) Negative (Negative) 04/19/24 02:16 Influenza A (PCR) Negative (Negative) 04/19/24 02:16 Influenza Type B (PCR) Negative (Negative) 04/19/24 02:16 RSV (PCR) Negative (Negative) 04/19/24 02:16 No radiology studies performed this visit Discharge Plan Discharge Patient Disposition: Home Clinical Impression: Urinary tract infection Condition: Stable Prescriptions: New cefdinir 300 mg capsule 300 mg PO BID 5 Days Qty: 10 0RF No Action cholecalciferol (vitamin D3) 1,000 unit capsule 1,000 unit PO QPM cranberry 500 mg capsule 500 mg PO QPM Lactobacillus acidophilus [Acidophilus] Capsule 1 cap PO QAM ferrous sulfate 325 mg (65 mg iron) tablet 325 mg PO DAILY@12 magnesium oxide 400 mg (241.3 mg magnesium) tablet 500 mg PO DAILY@12 furosemide 20 mg tablet 40 mg PO QAM Hold Instructions: Resume on 02/28/24. aripiprazole 2 mg tablet 2 mg PO BEDTIME Qty: 30 11RF potassium chloride 8 mEq capsule, extended release 24 meq PO QAM (DME) FreeStyle Tor 2 Sensor Kit See Rx Instructions .MEDSUPPLY Qty: 3 3RF Rx Instructions: As directed (DME) FreeStyle Tor 2 [place] Misc See Rx Instructions .Route Qty: 1 0RF Rx Instructions: As directed esomeprazole magnesium 40 mg capsule,delayed release(DR/EC) 40 mg PO QAM levalbuterol tartrate [Xopenex HFA] 45 mcg/actuation HFA aerosol inhaler 2 inh inhalation Q6H Qty: 15 3RF melatonin 3 mg capsule 3 mg PO DAILY (DME) blood sugar diagnostic Strip See Rx Instructions .Route Qty: 400 3RF Rx Instructions: Check blood sugar 4 times a day. (DME) lancets [Comfort EZ Lancets] 21 gauge misc See Rx Instructions .Route Qty: 400 3RF Rx Instructions: As directed (DME) Easymax 15 test strips Strip See Rx Instructions .Route Qty: 400 3RF Rx Instructions: Check BS 4 times a day. nitroglycerin 0.4 mg tablet, sublingual 0.4 mg sublingual Q5M PRN (Reason: chest pain) 30 Days Qty: 30 3RF Rx Instructions: until response; do not exceed 3 doses per episode fluticasone furoate-vilanterol [Breo Ellipta] 100-25 mcg/dose blister with device 1 inh inhalation DAILY Qty: 60 6RF isosorbide mononitrate 120 mg tablet extended release 24 hr 120 mg PO DAILY@12 Qty: 90 3RF hydrocortisone 10 mg tablet See Rx Instructions .ROUTE .COMPLEX Qty: 360 0RF Dose Instruction: TAKE 1 TABLET BY MOUTH FOUR TIMES DAILY Rx Instructions: TAKE 1 TABLET BY MOUTH FOUR TIMES DAILY atorvastatin 40 mg tablet 40 mg PO BEDTIME Qty: 90 3RF (DME) pen needle, diabetic [BD Ultra-Fine Mini Pen Needle] 31 gauge x 3/16 needle See Rx Instructions .ROUTE .COMPLEX Qty: 400 0RF Dose Instruction: USE WITH INSULIN FOUR TIMES DAILY Rx Instructions: USE WITH INSULIN FOUR TIMES DAILY insulin degludec [Tresiba FlexTouch U-200] 200 unit/mL (3 mL) insulin pen 64 unit SUBCUT DAILY 30 Days Qty: 9 3RF hydrocodone-acetaminophen 10-325 mg tablet 1 tab PO Q4H MDD 6 PRN (Reason: pain) 7 Days Qty: 42 0RF vitamin E 1,000 unit Capsule 1,000 unit PO QAM ascorbic acid (vitamin C) [Vitamin C] 500 mg Tablet,Chewable 500 mg PO QNOON ondansetron 4 mg tablet,disintegrating 4 mg PO Q8H PRN (Reason: nausea and vomiting) Qty: 7 0RF lactulose 10 gram/15 mL solution 15 ml PO DAILY PRN (Reason: Constipation) metolazone 2.5 mg tablet 2.5 mg PO QAM Hold Instructions: Resume on 02/28/24. Humalog KwikPen Insulin 100 unit/mL insulin pen See Rx Instructions .ROUTE .COMPLEX 90 Days Qty: 75.6 1RF Rx Instructions: Inject, subcut, 3 times daily, after meals, based on sliding scale provided Discharge Orders: Discharge ED (Routine); Ordered 04/19/24 Ordered By: Suzy Juarez Referrals: Arabella Orta MD [Primary Care Provider] - Discharge Diet: Usual diet Discharge Activity: Increase activity as tolerated Patient Instructions: Urinary Tract Infection in Older Adults (ED), Opioid Safety, Pain Management Activity Restrictions/Additional Instructions: Thank you for choosing [facility] for your healthcare needs today. Please realize this is an emergency room and that we are providing you with a medical screening exam and this may not be complete and all inclusive of all the testing and or work up that you may need to determine your ailment or severity of your illness. You have been screened and evaluated and felt safe for discharge. Health conditions do change or evolve sometimes and as such it is important that you follow up with your Primary Doctor to be re checked, 3-5 days is a general good time frame for follow up. You are always welcome to return to the ED for re assessment if your symptoms are worsening or you have new concerns Coding Level of Care Code ED Embedded Software Design Engineer for Chg Fwd Related Data Home Medications Medication Instructions Recorded Confirmed Lactobacillus acidophilus 1 cap PO QAM 06/01/19 03/10/24 (Acidophilus capsule) cholecalciferol (vitamin D3) 25 1,000 unit PO QPM 06/01/19 03/10/24 mcg (1,000 unit) capsule cranberry 500 mg capsule 500 mg PO QPM 06/01/19 03/10/24 ferrous sulfate 325 mg (65 mg 325 mg PO DAILY@12 06/21/19 03/10/24 iron) tablet magnesium oxide 400 mg (241.3 mg 500 mg PO DAILY@12 02/14/21 03/10/24 magnesium) tablet ascorbic acid (vitamin C) 500 mg 500 mg PO QNOON 11/14/21 03/10/24 chewable tablet (Vitamin C) vitamin E 670 mg (1,000 unit) 1,000 unit PO QAM 11/14/21 03/10/24 capsule esomeprazole magnesium 40 mg 40 mg PO QAM 05/19/22 03/10/24 capsule,delayed release furosemide 20 mg tablet 40 mg PO QAM 05/19/22 03/10/24 potassium chloride 8 mEq 24 meq PO QAM 05/19/22 03/10/24 capsule,extended release metolazone 2.5 mg tablet 2.5 mg PO QAM 04/05/23 03/10/24 lactulose 10 gram/15 mL oral 15 ml PO DAILY PRN Constipation 06/23/23 03/10/24 solution melatonin 3 mg capsule 3 mg PO DAILY 11/18/23 03/10/24 Previous Rx's Medication Instructions Recorded blood sugar diagnostic #400 ea 09/02/21 lancets 21 gauge (Comfort EZ #400 ea 09/02/21 Lancets) blood sugar diagnostic (Easymax 15 #400 ea 09/11/21 test strips) flash glucose scanning reader #1 ea 02/17/22 (FreeStyle Tor 2 [place]) flash glucose sensor (FreeStyle #3 ea 02/17/22 Tor 2 Sensor kit) ondansetron 4 mg disintegrating 4 mg PO Q8H PRN nausea and 04/24/22 tablet vomiting #7 tabs nitroglycerin 0.4 mg sublingual 0.4 mg sublingual Q5M PRN chest 08/04/23 tablet pain 30 days #30 tabs aripiprazole 2 mg tablet 2 mg PO BEDTIME #30 tabs 08/12/23 levalbuterol tartrate 45 2 inh inhalation Q6H #15 grams 09/13/23 mcg/actuation aerosol inhaler (XeBureau HFA) fluticasone furoate 100 1 inh inhalation DAILY #60 ea 09/20/23 mcg-vilanterol 25 mcg/dose inhalation powder (Breo Ellipta) isosorbide mononitrate 120 mg 120 mg PO DAILY@12 #90 tabs 09/20/23 tablet,extended release 24 hr hydrocortisone 10 mg tablet See Rx Instructions .Route 01/14/24 .COMPLEX #360 tabs atorvastatin 40 mg tablet 40 mg PO BEDTIME #90 tabs 01/28/24 pen needle, diabetic 31 gauge x #400 ea 02/03/24 3/16 (BD Ultra-Fine Mini Pen Needle) insulin lispro 100 unit/mL See Rx Instructions .Route 02/21/24 subcutaneous pen (Humalog KwikPen .COMPLEX 90 days #75.6 mL (U-100) Insulin) insulin degludec 200 unit/mL (3 64 unit (0.32 mL) SUBCUT DAILY 30 04/06/24 mL) subcutaneous pen (Tresiba days #9 mL FlexTouch U-200 insulin) hydrocodone 10 mg-acetaminophen 1 tab PO Q4H PRN pain 7 days #42 04/10/24 325 mg tablet tabs cefdinir 300 mg capsule 300 mg PO BID 5 days #10 caps 04/19/24 Allergies Allergy/AdvReac Type Severity Reaction Status Date / Time morphine Allergy Severe RESPIRATORY Verified 04/19/24 01:33 DISTRESS doxycycline Allergy Mild THROAT Verified 04/19/24 01:33 SWELLING duloxetine [From Cymbalta] Allergy Mild SWELLING, Verified 04/19/24 01:33 VOMITING metformin Allergy Mild THROAT Verified 04/19/24 01:33 SWELLING oxybutynin [From Oxytrol] Allergy Mild ALGY-Rash Verified 04/19/24 01:33 Penicillins Allergy Mild ALGY-Rash Verified 04/19/24 01:33 Sulfa (Sulfonamide Allergy Mild STOMACH Verified 04/19/24 01:33 Antibiotics) CRAMPS alprazolam [From Xanax] Allergy Unknown Unknown Verified 04/19/24 01:33 amitriptyline Allergy Unknown Unknown Verified 04/19/24 01:33 Barbiturates Allergy Unknown stomach Verified 04/19/24 01:33 cramps cefuroxime [From Ceftin] Allergy Unknown stomach Verified 04/19/24 01:33 cramps insulin detemir Allergy Unknown Unknown Verified 04/19/24 01:33 [From Levemir U-100 Insulin] levofloxacin [From Levaquin] Allergy Unknown Unknown Verified 04/19/24 01:33 liraglutide [From Victoza] Allergy Unknown Unknown Verified 04/19/24 01:33 metoclopramide [From Reglan] Allergy Unknown Unknown Verified 04/19/24 01:33 nitrofurantoin Allergy Unknown Unknown Verified 04/19/24 01:33 [From Macrobid] pregabalin [From Lyrica] Allergy Unknown Unknown Verified 04/19/24 01:33 divalproex sodium Allergy ALGY-Hives Verified 04/19/24 01:33 [From Depakote] gabapentin Allergy bone, Verified 04/19/24 01:33 muscle pain and mood swings venlafaxine Allergy Unknown Verified 04/19/24 01:33 meloxicam AdvReac Severe ADR-Vomitin Verified 04/19/24 01:33 g ciprofloxacin [From Cipro] AdvReac Mild stomach Verified 04/19/24 01:33 upset hydromorphone [From Dilaudid] AdvReac Unknown PT STATES Verified 04/19/24 01:33 IT MAKES ME CRAZY
--- NOTE | 2024-04-19 02:15 | ECG_ITS ---
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 Measurements Intervals [place] Rate: 89 P: 40 MN: 175 QRS: -32 QRSD: 97 T: 85 QT: 354 QTc: 432 Interpretive Statements SINUS RHYTHM LEFT AXIS DEVIATION [QRS AXIS < -30] NONSPECIFIC T-WAVE ABNORMALITY Compared to ECG 04/16/2024 23:20:06 First degree AV block no longer present T-wave abnormality still present Electronically Signed On 04-19-2024 18:49:15 VP DESIGN by Gilma Cai M.D. [email or web address]
[2024-04-19 02:39] LABS: Basophils % 0.3 %; Eosinophils # 0.2 10^3/uL (0.0-0.8); Eosinophils % 2.7 %; Hematocrit 35.3 % (36-47); Lymphocytes # 1.4 10^3/uL (0.8-4.8); Lymphocytes % 20.4 %; Mean Corpuscular HGB Conc 33.1 g/dL (30-55); Mean Corpuscular Hemoglobin 29.4 pg (27-33); Mean Corpuscular Volume 88.7 fl (85-98); Mean Platelet Volume 9.9 fL (7.4-10.4); Monocytes # 0.8 10^3/uL (0.2-0.9); Monocytes % 11.4 %; Neutrophils # 4.54 10^3/uL (1.8-7.7); Neutrophils % 64.6 %; Nucleated Red Blood Cells % 0 %; Platelet Count 217 10^3/cmm (157-399); Red Blood Count 3.98 10^6/uL (3.85-5.65); Red Cell Distribution Width 13.2 % (12.1-15.1); White Blood Count 7.02 10^3/uL (3.29-11.43)
[2024-04-19 02:52] LABS: Bilirubin Urine Negative (Negative); Blood Urine Negative (Negative); Glucose Urine UA Negative (Normal); Ketones Urine Negative (Negative); Leukocyte Esterase Urine 1+ (Negative); Nitrate Urine Negative (Negative); Protein Urine Negative (Negative); Specific Gravity, Urine 1.009 (1.005-1.030); Urine Appearance Clear (CLEAR); Urine Color Yellow (Yellow); Urobilinogen Urine 0.2 mg/dL (Negative); pH Urine 6.5 (5-7)
[2024-04-19 02:57] LABS: Alanine Aminotransferase 26 U/L (0-33); Albumin Level 3.8 g/dL (3.5-5.2); Alkaline Phosphatase 158 U/L (35-105); Anion Gap 16.2 (5-19); Aspartate Amino Transferase 24 U/L (0-32); Blood Urea Nitrogen 14 mg/dL (8-23); Carbon Dioxide 28 mmol/L (22-29); Chloride 96 mmol/L (98-107); Creatinine Clr Calc Pharmacy 65.7843; Globulin 3.1 g/dL (1.3-4.6); Glucose 233 mg/dL (65-115); Osmolality Calculated 292 mOsm/kg (285-295); Potassium 3.2 mmol/L (3.5-5.1); Sodium 137 mmol/L (136-145); Total Bilirubin 0.4 mg/dL (0.15-1.2); Total Protein 6.9 g/dL (6.6-8.7)
[2024-04-19 02:57] LABS: Bacteria Urine Trace /hpf; Hyaline Casts Urine 0-4 /lpf; RBC Urine 0-2 /hpf (0-2); Squamous Epithelial Cell Urine 0-5 /hpf (0-5)
[2024-04-19 03:09] LABS: Lactic Sepsis W/Reflex 3.1 mmol/L (0.5-2.2)
[2024-04-19 03:11] LABS: Add Urine Culture? No
[2024-04-19 03:28] LABS: Covid PCR NEGATIVE (Negative); Influenza A NEGATIVE (Negative); Influenza B NEGATIVE (Negative); Respiratory Syncytial Virus Ce NEGATIVE (Negative)
[2024-04-19] MEDS: cefTRIAXone 1,000 mg SDV 1000 MG IVP (03:51)
[2024-04-19 04:39] LABS: Reflex Lactate Order REFLEX LACTIC ORDERD
== END 2024-04-19 04:01 | disposition home or self-care (01) ==
PROVIDERS: Emergency Provider Emergency Medicine; PCP Family Medicine
DX: N39.0 Urinary tract infection, site not specified (principal); Z11.52 Encounter for screening for COVID-19; Z79.4 Long term (current) use of insulin; E11.9 Type 2 diabetes mellitus without complications; I25.10 Atherosclerotic heart disease of native coronary artery without angina pectoris; E78.5 Hyperlipidemia, unspecified; I10 Essential (primary) hypertension
CPT/HCPCS: 0241U; 36415; 80053; 81001; 83605; 85025; 87040; 93005; 96374; 99284; J0696

== ENCOUNTER → 2024-04-25 14:30 | Outpatient (BNVA) | payer MEDICARE, OTHER, SELFPAY | PROVIDERS: PCP Family Medicine; Visit Provider Orthopaedic Surgery | DX: Z98.890 Other specified postprocedural states (principal) | CPT/HCPCS: 99024 ==

== ENCOUNTER 2024-04-28 14:26 | Outpatient (CLI) | payer MEDICARE, OTHER, SELFPAY ==
[2024-04-28 15:22] LABS: Alanine Aminotransferase 26 U/L (0-33); Albumin Level 3.9 g/dL (3.5-5.2); Alkaline Phosphatase 164 U/L (35-105); Anion Gap 13.3 (5-19); Aspartate Amino Transferase 25 U/L (0-32); Blood Urea Nitrogen 12 mg/dL (8-23); Calcium 10.2 mg/dL (8.5-10.5); Carbon Dioxide 31 mmol/L (22-29); Chloride 92 mmol/L (98-107); Chol HDL Ratio 3.23 mg/dL (0.0-4.40); Cholesterol 113 mg/dL (0-200); Globulin 2.9 g/dL (1.3-4.6); Glucose 153 mg/dL (65-115); HDL Cholesterol 35 mg/dL (60-100); LDL Cholesterol Calculated 50 mg/dL (50-129); LDL HDL Ratio 1.43 RATIO (0.00-3.22); Osmolality Calculated 279 mOsm/kg (285-295); Potassium 3.3 mmol/L (3.5-5.1); Sodium 133 mmol/L (136-145); Total Bilirubin 0.4 mg/dL (0.15-1.2); Total Protein 6.8 g/dL (6.6-8.7); Triglycerides 139 mg/dL (0-150)
[2024-04-28 15:25] LABS: Creatinine Urine, Random 44 mg/dL (28-217); Microalbumin Random Urine 2 ug/dL (0-20)
[2024-04-28 15:26] LABS: Microalbum Creatinine Ratio Ur 45 mg/dL (0-20)
[2024-04-28 15:35] LABS: Estmated Average Glucose 203; Hemoglobin A1C 8.7 % (4.0-6.0)
== END 2024-04-28 14:27 | disposition home or self-care (01) ==
LOC: LAB 14:28
PROVIDERS: PCP Family Medicine; Visit Provider Internal Medicine
DX: E11.9 Type 2 diabetes mellitus without complications (principal); E16.2 Hypoglycemia, unspecified; E78.5 Hyperlipidemia, unspecified; I25.10 Atherosclerotic heart disease of native coronary artery without angina pectoris
CPT/HCPCS: 36415; 80053; 80061; 82044; 83036

== ENCOUNTER → 2024-05-02 09:00 | Outpatient (BNVA) | payer MEDICARE, OTHER, SELFPAY | PROVIDERS: PCP Family Medicine; Visit Provider Internal Medicine | DX: E78.5 Hyperlipidemia, unspecified; I25.10 Atherosclerotic heart disease of native coronary artery without angina pectoris; K11.7 Disturbances of salivary secretion; E86.0 Dehydration; E27.40 Unspecified adrenocortical insufficiency; E11.649 Type 2 diabetes mellitus with hypoglycemia without coma; Z79.85 Long-term (current) use of injectable non-insulin antidiabetic drugs | CPT/HCPCS: 99214 ==

== ENCOUNTER 2024-05-05 13:42 | Outpatient (CLI) | payer MEDICARE, OTHER, SELFPAY | END 2024-05-05 13:43 | disposition home or self-care (01) | LOC: LAB 13:44 | PROVIDERS: PCP Family Medicine; Visit Provider Family Medicine | DX: R30.0 Dysuria (principal) | CPT/HCPCS: 87086 ==

== ENCOUNTER → 2024-05-10 17:02 | Outpatient (BNVA) | payer MEDICARE, OTHER, SELFPAY | PROVIDERS: PCP Family Medicine; Visit Provider Specialist | DX: Z01.818 Encounter for other preprocedural examination (principal); E16.2 Hypoglycemia, unspecified | CPT/HCPCS: 11056; 11721; 29581; 36415; 80053; 81001; 83036; 85025; 87086 ==

== ENCOUNTER 2024-05-13 19:09 | Emergency (ER) | payer MEDICARE, OTHER, SELFPAY ==
[2024-05-13 19:18] VITALS: BP 177/49; PULSE 109; RESP 22; TEMP 37.3; O2SAT 92; BMI 37.0
--- NOTE | 2024-05-13 19:41 | W.ED.WEAKNES ---
Documented by User: RAVEN Holm 05/13/24 22:03 HPI - Weakness General: Chief complaint: Weakness Stated complaint: WEAKNESS Time Seen by Provider: 05/13/24 19:24 Source: patient Mode of arrival: EMS Limitations: no limitations History of Present Illness: Patient presents emergency department today brought by EMS for evaluation and treatment of generalized weakness and muscle aches. There is some confusion regarding the patient's timeline of symptoms as she reports being seen yesterday in clinic. She originally indicated that her urinary tract infection had resolved after she had been put on a 5-day course of antibiotics but, indicated to me that it had not cleared and they put her back on more antibiotics. However, evaluation in her chart is from 05/10 where she was found to have 3+ bacteria and white blood cells. I and not sure if this is her initial urinalysis as that was only 3 days ago and states yesterday they told her she needed to be back on antibiotics. She is not sure what either of the antibiotics are at this time. She also states she has cellulitis of her right leg. Reports seeing Dr. Zimmerman earlier in the week. Said she had a draining wound. She reports he had wrapped her leg but, the wrap was too painful and she took it off. It is covered with some gauze at this time. She states that he told her that she could be seen Wednesday of next week for follow-up if she needed. She did not indicate he put her on any specific antibiotics. Chart review shows she has a chronic venous ulcer to the right lower extremity with chronic skin discoloration. He had put a compression bandage on the extremity with instructions to wear it for 1 week and then did indicate patient was welcome to have follow-up or be seen sooner if needed. Patient also states that she was told yesterday at her doctor's appointment that she had low sodium and low potassium but, reports that they did not tell her to change her diet or, provider any type of supplementation. She states she has not been vomiting is not been having any diarrhea. Review of Systems General: Reports: 10 or more systems reviewed and unremarkable except in HPI and below PFSH ED PFSH: Medical History C. 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 Left axis deviation. Normal OK and QRS duration. Dyslipidemia (high LDL; low HDL) Benign essential hypertension with target blood pressure below 140/90 Atherosclerotic heart disease of [place] coronary artery without angina pectoris Status post left heart catheterization Recurrent UTI Gross hematuria Bipolar II disorder Surgical History Hx of bilateral hip replacements Hx of bladder repair surgery History of colonoscopy (~2018) History of coronary artery stent placement History of right knee surgery S/P appendectomy S/P hysterectomy S/P hernia repair S/P hip replacement Family History Family/Other Diabetes Other Cancer Social History Smoking and tobacco/nicotine status: former use of tobacco/nicotine Alcohol intake: never Substance/Drug Use: never Household members: spouse Marital status: Current occupational status: retired Physical Exam Const: COMMON NORMALS: patient oriented x3 and alert OTHER: Patient is grimacing and groaning in the bed. HENMT: COMMON NORMALS: normocephalic, atraumatic and hearing grossly normal bilaterally HEAD & SCALP: normocephalic and atraumatic Eye: COMMON NORMALS: Equal, round and reactive pupils present, EOMs intact bilaterally and conjunctivae normal CONJUNCTIVA: Yes conjunctivae normal PUPIL: Yes Equal, round and reactive pupils present Neck/C-Spine: COMMON NORMALS: full ROM and no JVD Lymph: LYMPHATIC: no lymphadenopathy noted Resp: COMMON NORMALS: normal respiratory effort, No retractions and No use of accessory muscles Cardio: COMMON NORMALS: no JVD and regular rate RATE: regular rate Extremity: NARRATIVE EXTREMITY EXAM: Has not ambulated since arriving in the emergency department but, was able to use her own legs to help maneuver herself up in the bed. Full range of motion to the arms noted. Patient does have pitting edema in the lower extremities with redness to the right lower extremity and bandaging wrapped around her distal right lower extremity. Patient will not allow for much examination of the right lower extremity due to her complaints of pain. Neuro: COMMON NORMALS: patient oriented x3 SENSORIUM/ORIENTATION: Yes alert Psych: COMMON NORMALS: mental status grossly normal, Normal thought process present, cooperative and normal affect THOUGHT PROCESS: Normal thought process present Skin: OTHER: Pitting edema in the lower extremities bilaterally with redness and chronic color change to the skin noted. Skin is shiny distally on the legs. Reported venous ulcer covered with bandaging at this time. Course Vital Signs: Vital signs: Vital Signs Temperature 99.1 F 05/13/24 19:18 Pulse Rate 98 05/13/24 22:49 Respiratory Rate 16 05/13/24 22:49 Blood Pressure 146/58 05/13/24 22:49 Pulse Oximetry 94 05/13/24 22:49 Oxygen Delivery Me thod Room Air 05/13/24 22:49 MDM - Weakness Medical Decision Making Patient is brought to the emergency department today by EMS for evaluation treatment of complaints of generalized weakness and fatigue. Patient reports multiple issues recently including urinary tract infection for which she reports she is still currently on an unknown antibiotic, cellulitis of the right lower extremity, and electrolyte abnormalities. Description of patient's right lower extremity from orthopedics indicates a chronic venous ulcer and chronic skin changes in light of her recurrent bilateral lower extremity edema. She was post have a pressure dressing on but admits to removing it. On labs, patient's sodium and potassium abnormalities have returned back to normal limits. She does have an elevated white blood cell count and with her tachycardia, did proceed on to evaluate for potential sepsis. Patient did have an elevated lactic acid. We obtained blood cultures at that point. We have added a BNP as her troponins are just slightly more elevated than her typical baseline and have also added a chest x-ray looking for source of infection. I am still holding back on fluids as her cardiopulmonary status is unknown at this time. Transfer of care to Brittani Chawla PA-C at 2114 Differential Diagnosis Unlikely anemia, hypoglycemia or dehydration Lab Data 05/13/24 19:54 05/13/24 19:54 Radiology Impressions Chest X-Ray 05/13/24 20:32 IMPRESSION: 1. Mild pulmonary vascular congestion. Otherwise no acute cardiopulmonary abnormality. Laboratory Results WBC 17.07 10^3/uL (3.29-11.43) H 05/13/24 19:54 RBC 4.02 10^6/uL (3.85-5.65) 05/13/24 19:54 Hgb 11.90 g/dL (11.27-16.99) 05/13/24 19:54 Hct 36.7 % (36-47) 05/13/24 19:54 MCV 91.3 fl (85-98) 05/13/24 19:54 MCH 29.6 pg (27-33) 05/13/24 19:54 MCHC 32.4 g/dL (30-55) 05/13/24 19:54 RDW 13.4 % (12.1-15.1) 05/13/24 19:54 Plt Count 217 10^3/cmm (157-399) 05/13/24 19:54 MPV 9.6 fL (7.4-10.4) 05/13/24 19:54 Neut % (Auto) 85.0 % 05/13/24 19:54 Lymph % (Auto) 8.1 % 05/13/24 19:54 [place] % (Auto) 5.4 % 05/13/24 19:54 Eos % (Auto) 0.8 % 05/13/24 19:54 Baso % (Auto) 0.3 % 05/13/24 19:54 Neut # (Auto) 14.51 10^3/uL (1.8-7.7) H 05/13/24 19:54 Lymph # (Auto) 1.4 10^3/uL (0.8-4.8) 05/13/24 19:54 [place] # (Auto) 0.9 10^3/uL (0.2-0.9) 05/13/24 19:54 Eos # (Auto) 0.1 10^3/uL (0.0-0.8) 05/13/24 19:54 Baso # (Auto) 0.1 10^3/uL (0.0-0.1) 05/13/24 19:54 Nucleated RBC % (auto) 0 % 05/13/24 19:54 Nucleated RBCs # 0.0 /100WBC 05/13/24 19:54 Sodium 137 mmol/L (136-145) 05/13/24 19:54 Potassium 4.8 mmol/L (3.5-5.1) 05/13/24 19:54 Chloride 96 mmol/L (98-107) L 05/13/24 19:54 Carbon Dioxide 29 mmol/L (22-29) 05/13/24 19:54 Anion Gap 16.8 (5-19) 05/13/24 19:54 BUN 13 mg/dL (8-23) 05/13/24 19:54 Creatinine 0.7 mg/dL (0.5-0.9) 05/13/24 19:54 GFR Calculation Not Reportable 05/13/24 19:54 Glucose 179 mg/dL (65-115) H 05/13/24 19:54 Calculated Osmolality 289 mOsm/kg (285-295) 05/13/24 19:54 Lactic Acid 2.6 mmol/L (0.5-2.2) H 05/13/24 19:54 Lactic Acid (Sepsis) 2.1 mmol/L (0.5-2.2) 05/13/24 22:42 Calcium 10.0 mg/dL (8.5-10.5) 05/13/24 19:54 Magnesium 1.7 mg/dL (1.7-2.3) 05/13/24 19:54 Total Bilirubin 0.7 mg/dL (0.15-1.2) 05/13/24 19:54 AST 31 U/L (0-32) 05/13/24 19:54 ALT 30 U/L (0-33) 05/13/24 19:54 Alkaline Phosphatase 165 U/L (35-105) H 05/13/24 19:54 Troponin T Baseline 28 ng/L (0-10) H 05/13/24 19:54 Troponin T 120 Minute 31.44 ng/L (0-10) H 05/13/24 22:42 Delta Troponin T 3.44 ABS# (0-10) 05/13/24 22:42 NT-Pro-B Natriuret Pep 159 pg/mL (0-450) 05/13/24 19:54 Total Protein 6.4 g/dL (6.6-8.7) L 05/13/24 19:54 Albumin 3.8 g/dL (3.5-5.2) 05/13/24 19:54 Globulin 2.6 g/dL (1.3-4.6) 05/13/24 19:54 Procalcitonin 0.12 ng/mL (0-0.5) 05/13/24 19:54 Urine Color Yellow (Yellow) 05/13/24 20:32 Urine Appearance Clear (CLEAR) 05/13/24 20:32 Urine pH 8.0 (5-7) A 05/13/24 20:32 Ur Specific [place] 1.015 (1.005-1.030) 05/13/24 20:32 Urine Protein Negative (Negative) 05/13/24 20:32 Urine Glucose (UA) Negative (Normal) 05/13/24 20:32 Urine Ketones Negative (Negative) 05/13/24 20:32 Urine Blood Negative (Negative) 05/13/24 20: Urine Nitrate Negative (Negative) 05/13/24 20: Urine Bilirubin Negative (Negative) 05/13/24 20:32 Urine Urobilinogen 1.0 mg/dL (Negative) 05/13/24 20:32 Ur Leukocyte Esterase Trace (Negative) A 05/13/24 20:32 Urine RBC 0-2 /hpf (0-2) 05/13/24 20:32 Urine WBC 11-20 /hpf (0-5) H 05/13/24 20:32 Ur Squamous Epith Cells 0-5 /hpf (0-5) 05/13/24 20:32 Amorphous Sediment Not Reportable 05/13/24 20:32 Urine Bacteria None seen /hpf (NONE) 05/13/24 20:32 Hyaline Casts 0.40 /lpf 05/13/24 20:32 Coronavirus (PCR) Negative (Negative) 05/13/24 20:05 Influenza A (PCR) Negative (Negative) 05/13/24 20:05 Influenza Type B (PCR) Negative (Negative) 05/13/24 20:05 RSV (PCR) Negative (Negative) 05/13/24 20:05 XR interpretation done by ED provider, pending radiology final review Discharge Plan Discharge Patient Disposition: Home Clinical Impression: Weakness Condition: Stable Prescriptions: No Action cholecalciferol (vitamin D3) 1,000 unit capsule 1,000 unit PO QPM cranberry 500 mg capsule 500 mg PO QPM Lactobacillus acidophilus [Acidophilus] Capsule 1 cap PO QAM ferrous sulfate 325 mg (65 mg iron) tablet 325 mg PO DAILY@12 magnesium oxide 400 mg (241.3 mg magnesium) tablet 500 mg PO DAILY@12 furosemide 20 mg tablet 40 mg PO QAM Hold Instructions: Resume on 02/28/24. aripiprazole 2 mg tablet 2 mg PO BEDTIME Qty: 30 11RF insulin degludec [Tresiba FlexTouch U-200] 200 unit/mL (3 mL) insulin pen 64 unit SUBCUT DAILY 30 Days Qty: 27 1RF (DME) pen needle, diabetic [BD Ultra-Fine Mini Pen Needle] 31 gauge x 3/16 needle See Rx Instructions .ROUTE .COMPLEX Qty: 400 0RF Dose Instruction: USE WITH INSULIN FOUR TIMES DAILY Rx Instructions: USE WITH INSULIN FOUR TIMES DAILY potassium chloride 8 mEq capsule, extended release 24 meq PO QAM (DME) FreeStyle Tor 2 Sensor Kit See Rx Instructions .MEDSUPPLY Qty: 3 3RF Rx Instructions: As directed (DME) FreeStyle Tor 2 [place] Misc See Rx Instructions .Route Qty: 1 0RF Rx Instructions: As directed esomeprazole magnesium 40 mg capsule,delayed release(DR/EC) 40 mg PO QAM levalbuterol tartrate [Xopenex HFA] 45 mcg/actuation HFA aerosol inhaler 2 inh inhalation Q6H Qty: 15 3RF melatonin 3 mg capsule 3 mg PO DAILY (DME) blood sugar diagnostic Strip See Rx Instructions .Route Qty: 400 3RF Rx Instructions: Check blood sugar 4 times a day. (DME) lancets [Comfort EZ Lancets] 21 gauge misc See Rx Instructions .Route Qty: 400 3RF Rx Instructions: As directed (DME) Easymax 15 test strips Strip See Rx Instructions .Route Qty: 400 3RF Rx Instructions: Check BS 4 times a day. nitroglycerin 0.4 mg tablet, sublingual 0.4 mg sublingual Q5M PRN (Reason: chest pain) 30 Days Qty: 30 3RF Rx Instructions: until response; do not exceed 3 doses per episode fluticasone furoate-vilanterol [Breo Ellipta] 100-25 mcg/dose blister with device 1 inh inhalation DAILY Qty: 60 6RF isosorbide mononitrate 120 mg tablet extended release 24 hr 120 mg PO DAILY@12 Qty: 90 3RF atorvastatin 40 mg tablet 40 mg PO BEDTIME Qty: 90 3RF hydrocodone-acetaminophen 10-325 mg tablet 1 tab PO Q4H MDD 6 PRN (Reason: pain) 7 Days Qty: 42 0RF hydrocortisone 10 mg tablet See Rx Instructions .ROUTE .COMPLEX Qty: 360 0RF Dose Instruction: TAKE 1 TABLET BY MOUTH FOUR TIMES DAILY Rx Instructions: TAKE 1 TABLET BY MOUTH FOUR TIMES DAILY vitamin E 1,000 unit Capsule 1,000 unit PO QAM ascorbic acid (vitamin C) [Vitamin C] 500 mg Tablet,Chewable 500 mg PO QNOON ondansetron 4 mg tablet,disintegrating 4 mg PO Q8H PRN (Reason: nausea and vomiting) Qty: 7 0RF lactulose 10 gram/15 mL solution 15 ml PO DAILY PRN (Reason: Constipation) metolazone 2.5 mg tablet 2.5 mg PO QAM Hold Instructions: Resume on 02/28/24. Humalog KwikPen Insulin 100 unit/mL insulin pen See Rx Instructions .ROUTE .COMPLEX 90 Days Qty: 75.6 1RF Rx Instructions: Inject, subcut, 3 times daily, after meals, based on sliding scale provided Discharge Orders: Discharge ED (Routine); Ordered 05/13/24 Ordered By: Brittani Chawla Referrals: Arabella Orta MD [Primary Care Provider] - Activity Restrictions/Additional Instructions: As we discussed, please follow-up with primary care next week for reevaluation. You may return to the emergency department at anytime for any further concerns you may have. I hope you begin to feel better soon. Sign Out Sign Out Data: Patient Sign Out occurred on 05/13/24 at 21:37. Patient's care was discussed, and care was transferred from RAVEN Holm to RAVEN Diaz. Coding Level of Care Code ED Derivatives Trader for Chg Fwd Related Data Home Medications Medication Instructions Recorded Confirmed Lactobacillus acidophilus 1 cap PO QAM 06/01/19 05/10/24 (Acidophilus capsule) cholecalciferol (vitamin D3) 25 1,000 unit PO QPM 06/01/19 05/10/24 mcg (1,000 unit) capsule cranberry 500 mg capsule 500 mg PO QPM 06/01/19 05/10/24 ferrous sulfate 325 mg (65 mg 325 mg PO DAILY@06/21/19 05/10/24 iron) tablet magnesium oxide 400 mg (241.3 mg 500 mg PO DAILY@12 02/14/21 05/10/24 magnesium) tablet ascorbic acid (vitamin C) 500 mg 500 mg PO QNOON 11/14/21 05/10/24 chewable tablet (Vitamin C) vitamin E 670 mg (1,000 unit) 1,000 unit PO QAM 11/14/21 05/10/24 capsule esomeprazole magnesium 40 mg 40 mg PO QAM 05/19/22 05/10/24 capsule,delayed release furosemide 20 mg tablet 40 mg PO QAM 05/19/22 05/10/24 potassium chloride 8 mEq 24 meq PO QAM 05/19/22 05/10/24 capsule,extended release metolazone 2.5 mg tablet 2.5 mg PO QAM 04/05/23 05/10/24 lactulose 10 gram/15 mL oral 15 ml PO DAILY PRN Constipation 06/23/23 05/10/24 solution melatonin 3 mg capsule 3 mg PO DAILY 11/18/23 05/10/24 Previous Rx's Medication Instructions Recorded blood sugar diagnostic #400 ea 09/02/21 lancets 21 gauge (Comfort EZ #400 ea 09/02/21 Lancets) blood sugar diagnostic (Easymax 15 #400 ea 09/11/21 test strips) flash glucose scanning reader #1 ea 02/17/22 (FreeStyle Tor 2 [place]) flash glucose sensor (FreeStyle #3 ea 02/17/22 Tor 2 Sensor kit) ondansetron 4 mg disintegrating 4 mg PO Q8H PRN nausea and 04/24/22 tablet vomiting #7 tabs nitroglycerin 0.4 mg sublingual 0.4 mg sublingual Q5M PRN chest 08/04/23 tablet pain 30 days #30 tabs aripiprazole 2 mg tablet 2 mg PO BEDTIME #30 tabs 08/12/23 levalbuterol tartrate 45 2 inh inhalation Q6H #15 grams 09/13/23 mcg/actuation aerosol inhaler (Xopenex HFA) fluticasone furoate 100 1 inh inhalation DAILY #60 ea 09/20/23 mcg-vilanterol 25 mcg/dose inhalation powder (Breo Ellipta) isosorbide mononitrate 120 mg 120 mg PO DAILY@12 #90 tabs 09/20/23 tablet,extended release 24 hr atorvastatin 40 mg tablet 40 mg PO BEDTIME #90 tabs 01/28/24 insulin lispro 100 unit/mL See Rx Instructions .Route 02/21/24 subcutaneous pen (Humalog KwikPen .COMPLEX 90 days #75.6 mL (U-100) Insulin) hydrocodone 10 mg-acetaminophen 1 tab PO Q4H PRN pain 7 days #42 05/02/24 325 mg tablet tabs insulin degludec 200 unit/mL (3 64 unit (0.32 mL) SUBCUT DAILY 30 05/02/24 mL) subcutaneous pen (Tresiba days #27 mL FlexTouch U-200 insulin) pen needle, diabetic 31 gauge x #400 ea 05/02/2408/06 (BD Ultra-Fine Mini Pen Needle) hydrocortisone 10 mg tablet See Rx Instructions .Route 05/08/24 .COMPLEX #360 tabs Allergies Allergy/AdvReac Type Severity Reaction Status Date / Time morphine Allergy Severe RESPIRATORY Verified 05/10/24 15:21 DISTRESS doxycycline Allergy Mild THROAT Verified 05/10/24 15:21 SWELLING duloxetine [From Cymbalta] Allergy Mild SWELLING, Verified 05/10/24 15:21 VOMITING metformin Allergy Mild THROAT Verified 05/10/24 15:21 SWELLING oxybutynin [From Oxytrol] Allergy Mild ALGY-Rash Verified 05/10/24 15:21 Penicillins Allergy Mild ALGY-Rash Verified 05/10/24 15:21 Sulfa (Sulfonamide Allergy Mild STOMACH Verified 05/10/24 15:21 Antibiotics) CRAMPS alprazolam [From Xanax] Allergy Unknown Unknown Verified 05/10/24 15:21 amitriptyline Allergy Unknown Unknown Verified 05/10/24 15:21 Barbiturates Allergy Unknown stomach Verified 05/10/24 15:21 cramps cefuroxime [From Ceftin] Allergy Unknown stomach Verified 05/10/24 15:21 cramps insulin detemir Allergy Unknown Unknown Verified 05/10/24 15:21 [From Levemir U-100 Insulin] levofloxacin [From Levaquin] Allergy Unknown Unknown Verified 05/10/24 15:21 liraglutide [From Victoza] Allergy Unknown Unknown Verified 05/10/24 15:21 metoclopramide [From Reglan] Allergy Unknown Unknown Verified 05/10/24 15:21 nitrofurantoin Allergy Unknown Unknown Verified 05/10/24 15:21 [From Macrobid] pregabalin [From Lyrica] Allergy Unknown Unknown Verified 05/10/24 15:21 divalproex sodium Allergy ALGY-Hives Verified 05/10/24 15:21 [From Depakote] gabapentin Allergy bone, Verified 05/10/24 15:21 muscle pain and mood swings venlafaxine Allergy Unknown Verified 05/10/24 15:21 meloxicam AdvReac Severe ADR-Vomitin Verified 05/10/24 15:21 g ciprofloxacin [From Cipro] AdvReac Mild stomach Verified 05/10/24 15:21 upset hydromorphone [From Dilaudid] AdvReac Unknown PT STATES Verified 05/10/24 15:21 IT MAKES ME CRAZY Documented by User: RAVEN Diaz 05/14/24 00:49 HPI - Weakness General: Chief complaint: Weakness Stated complaint: WEAKNESS Time Seen by Provider: 05/13/24 19:24 PFSH ED PFSH: Medical History C. 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 Left axis deviation. Normal OK and QRS duration. Dyslipidemia (high LDL; low HDL) Benign essential hypertension with target blood pressure below 140/90 Atherosclerotic heart disease of [place] coronary artery without angina pectoris Status post left heart catheterization Recurrent UTI Gross hematuria Bipolar II disorder Surgical History Hx of bilateral hip replacements Hx of bladder repair surgery History of colonoscopy (~2018) History of coronary artery stent placement History of right knee surgery S/P appendectomy S/P hysterectomy S/P hernia repair S/P hip replacement Family History Family/Other Diabetes Other Cancer Social History Smoking and tobacco/nicotine status: former use of tobacco/nicotine Alcohol intake: never Substance/Drug Use: never Household members: spouse Marital status: Current occupational status: retired Course Vital Signs: Vital signs: Vital Signs Temperature 99.1 F 05/13/24 19:18 Pulse Rate 98 05/13/24 22:49 Respiratory Rate 16 05/13/24 22:49 Blood Pressure 146/58 05/13/24 22:49 Pulse Oximetry 94 05/13/24 22:49 Oxygen Delivery Me thod Room Air 05/13/24 22:49 MDM - Weakness Medical Decision Making Patient is brought to the emergency department today by EMS for evaluation treatment of complaints of generalized weakness and fatigue. Patient reports multiple issues recently including urinary tract infection for which she reports she is still currently on an unknown antibiotic, cellulitis of the right lower extremity, and electrolyte abnormalities. Description of patient's right lower extremity from orthopedics indicates a chronic venous ulcer and chronic skin changes in light of her recurrent bilateral lower extremity edema. She was post have a pressure dressing on but admits to removing it. On labs, patient's sodium and potassium abnormalities have returned back to normal limits. She does have an elevated white blood cell count and with her tachycardia, did proceed on to evaluate for potential sepsis. Patient did have an elevated lactic acid. We obtained blood cultures at that point. We have added a BNP as her troponins are just slightly more elevated than her typical baseline and have also added a chest x-ray looking for source of infection. I am still holding back on fluids as her cardiopulmonary status is unknown at this time. Transfer of care to Brittani Chawla PA-C at 2114 Patient is an 79-year-old female here for generalized weakness. During my history with patient, she just tells me she feels weak and fatigued. She does confirm she is on antibiotics for urinary tract infection and states she has several days of this left. She cannot remember the name of the antibiotic. Patient was initially mildly tachycardic upon arrival however this resolved. She does have a 17,000 white count on her blood work which could be related to her known UTI. On today's UA she does have 11-20 WBCs. Remainder of labs overall non-actionable. Previous provider had ordered troponins. Patient has no complaints of chest pain, shortness of breath, difficulty breathing. Baseline troponin of 28. She does have chronically elevated troponins. Her 2-hour shows a nonsignificant delta. EKG is non-ischemic. CXR showing some mild pulmonary vascular congestion. Her BNP is normal. She has chronic LE edema and other problems here that she sees Dr. Zimmerman for. Her procalcitonin is normal. I do not have a strong case for admission. She feels okay with plan to go home and follow up with PCP next week. Return precautions given. Medical Records I reviewed the patient's medical records. Lab Data I reviewed the patient's lab results. 05/13/24 19:54 05/13/24 19:54 Radiology Impressions Chest X-Ray 05/13/24 20:32 IMPRESSION: 1. Mild pulmonary vascular congestion. Otherwise no acute cardiopulmonary abnormality. Laboratory Results WBC 17.07 10^3/uL (3.29-11.43) H 05/13/24 19:54 RBC 4.02 10^6/uL (3.85-5.65) 05/13/24 19:54 Hgb 11.90 g/dL (11.27-16.99) 05/13/24 19:54 Hct 36.7 % (36-47) 05/13/24 19:54 MCV 91.3 fl (85-98) 05/13/24 19:54 MCH 29.6 pg (27-33) 05/13/24 19:54 MCHC 32.4 g/dL (30-55) 05/13/24 19:54 RDW 13.4 % (12.1-15.1) 05/13/24 19:54 Plt Count 217 10^3/cmm (157-399) 05/13/24 19:54 MPV 9.6 fL (7.4-10.4) 05/13/24 19:54 Neut % (Auto) 85.0 % 05/13/24 19:54 Lymph % (Auto) 8.1 % 05/13/24 19:54 [place] % (Auto) 5.4 % 05/13/24 19:54 Eos % (Auto) 0.8 % 05/13/24 19:54 Baso % (Auto) 0.3 % 05/13/24 19:54 Neut # (Auto) 14.51 10^3/uL (1.8-7.7) H 05/13/24 19:54 Lymph # (Auto) 1.4 10^3/uL (0.8-4.8) 05/13/24 19:54 [place] # (Auto) 0.9 10^3/uL (0.2-0.9) 05/13/24 19:54 Eos # (Auto) 0.1 10^3/uL (0.0-0.8) 05/13/24 19:54 Baso # (Auto) 0.1 10^3/uL (0.0-0.1) 05/13/24 19:54 Nucleated RBC % (auto) 0 % 05/13/24 19:54 Nucleated RBCs # 0.0 /100WBC 05/13/24 19:54 Sodium 137 mmol/L (136-145) 05/13/24 19:54 Potassium 4.8 mmol/L (3.5-5.1) 05/13/24 19:54 Chloride 96 mmol/L (98-107) L 05/13/24 19:54 Carbon Dioxide 29 mmol/L (22-29) 05/13/24 19:54 Anion Gap 16.8 (5-19) 05/13/24 19:54 BUN 13 mg/dL (8-23) 05/13/24 19:54 Creatinine 0.7 mg/dL (0.5-0.9) 05/13/24 19:54 GFR Calculation Not Reportable 05/13/24 19:54 Glucose 179 mg/dL (65-115) H 05/13/24 19:54 Calculated Osmolality 289 mOsm/kg (285-295) 05/13/24 19:54 Lactic Acid 2.6 mmol/L (0.5-2.2) H 05/13/24 19:54 Lactic Acid (Sepsis) 2.1 mmol/L (0.5-2.2) 05/13/24 22:42 Calcium 10.0 mg/dL (8.5-10.5) 05/13/24 19:54 Magnesium 1.7 mg/dL (1.7-2.3) 05/13/24 19:54 Total Bilirubin 0.7 mg/dL (0.15-1.2) 05/13/24 19:54 AST 31 U/L (0-32) 05/13/24 19:54 ALT 30 U/L (0-33) 05/13/24 19:54 Alkaline Phosphatase 165 U/L (35-105) H 05/13/24 19:54 Troponin T Baseline 28 ng/L (0-10) H 05/13/24 19:54 Troponin T 120 Minute 31.44 ng/L (0-10) H 05/13/24 22:42 Delta Troponin T 3.44 ABS# (0-10) 05/13/24 22:42 NT-Pro-B Natriuret Pep 159 pg/mL (0-450) 05/13/24 19:54 Total Protein 6.4 g/dL (6.6-8.7) L 05/13/24 19:54 Albumin 3.8 g/dL (3.5-5.2) 05/13/24 19:54 Globulin 2.6 g/dL (1.3-4.6) 05/13/24 19:54 Procalcitonin 0.12 ng/mL (0-0.5) 05/13/24 19:54 Urine Color Yellow (Yellow) 05/13/24 20:32 Urine Appearance Clear (CLEAR) 05/13/24 20:32 Urine pH 8.0 (5-7) A 05/13/24 20:32 Ur Specific [place] 1.015 (1.005-1.030) 05/13/24 20:32 Urine Protein Negative (Negative) 05/13/24 20:32 Urine Glucose (UA) Negative (Normal) 05/13/24 20:32 Urine Ketones Negative (Negative) 05/13/24 20:32 Urine Blood Negative (Negative) 05/13/24 20:32 Urine Nitrate Negative (Negative) 05/13/24 20: Urine Bilirubin Negative (Negative) 05/13/24 20: Urine Urobilinogen 1.0 mg/dL (Negative) 05/13/24 20:32 Ur Leukocyte Esterase Trace (Negative) A 05/13/24 20:32 Urine RBC 0-2 /hpf (0-2) 05/13/24 20:32 Urine WBC 11-20 /hpf (0-5) H 05/13/24 20:32 Ur Squamous Epith Cells 0-5 /hpf (0-5) 05/13/24 20:32 Amorphous Sediment Not Reportable 05/13/24 20:32 Urine Bacteria None seen /hpf (NONE) 05/13/24 20:32 Hyaline Casts 0.40 /lpf 05/13/24 20:32 Coronavirus (PCR) Negative (Negative) 05/13/24 20:05 Influenza A (PCR) Negative (Negative) 05/13/24 20:05 Influenza Type B (PCR) Negative (Negative) 05/13/24 20:05 RSV (PCR) Negative (Negative) 05/13/24 20:05 All radiology interpretation(s) finalized by discharge Discharge Plan Discharge Patient Disposition: Home Clinical Impression: Weakness Condition: Stable Prescriptions: No Action cholecalciferol (vitamin D3) 1,000 unit capsule 1,000 unit PO QPM cranberry 500 mg capsule 500 mg PO QPM Lactobacillus acidophilus [Acidophilus] Capsule 1 cap PO QAM ferrous sulfate 325 mg (65 mg iron) tablet 325 mg PO DAILY@12 magnesium oxide 400 mg (241.3 mg magnesium) tablet 500 mg PO DAILY@12 furosemide 20 mg tablet 40 mg PO QAM Hold Instructions: Resume on 02/28/24. aripiprazole 2 mg tablet 2 mg PO BEDTIME Qty: 30 11RF insulin degludec [Tresiba FlexTouch U-200] 200 unit/mL (3 mL) insulin pen 64 unit SUBCUT DAILY 30 Days Qty: 27 1RF (DME) pen needle, diabetic [BD Ultra-Fine Mini Pen Needle] 31 gauge x 3/16 needle See Rx Instructions .ROUTE .COMPLEX Qty: 400 0RF Dose Instruction: USE WITH INSULIN FOUR TIMES DAILY Rx Instructions: USE WITH INSULIN FOUR TIMES DAILY potassium chloride 8 mEq capsule, extended release 24 meq PO QAM (DME) FreeStyle Tor 2 Sensor Kit See Rx Instructions .MEDSUPPLY Qty: 3 3RF Rx Instructions: As directed (DME) FreeStyle Tor 2 [place] Misc See Rx Instructions .Route Qty: 1 0RF Rx Instructions: As directed esomeprazole magnesium 40 mg capsule,delayed release(DR/EC) 40 mg PO QAM levalbuterol tartrate [Xopenex HFA] 45 mcg/actuation HFA aerosol inhaler 2 inh inhalation Q6H Qty: 15 3RF melatonin 3 mg capsule 3 mg PO DAILY (DME) blood sugar diagnostic Strip See Rx Instructions .Route Qty: 400 3RF Rx Instructions: Check blood sugar 4 times a day. (DME) lancets [Comfort EZ Lancets] 21 gauge misc See Rx Instructions .Route Qty: 400 3RF Rx Instructions: As directed (DME) Easymax 15 test strips Strip See Rx Instructions .Route Qty: 400 3RF Rx Instructions: Check BS 4 times a day. nitroglycerin 0.4 mg tablet, sublingual 0.4 mg sublingual Q5M PRN (Reason: chest pain) 30 Days Qty: 30 3RF Rx Instructions: until response; do not exceed 3 doses per episode fluticasone furoate-vilanterol [Breo Ellipta] 100-25 mcg/dose blister with device 1 inh inhalation DAILY Qty: 60 6RF isosorbide mononitrate 120 mg tablet extended release 24 hr 120 mg PO DAILY@12 Qty: 90 3RF atorvastatin 40 mg tablet 40 mg PO BEDTIME Qty: 90 3RF hydrocodone-acetaminophen 10-325 mg tablet 1 tab PO Q4H MDD 6 PRN (Reason: pain) 7 Days Qty: 42 0RF hydrocortisone 10 mg tablet See Rx Instructions .ROUTE .COMPLEX Qty: 360 0RF Dose Instruction: TAKE 1 TABLET BY MOUTH FOUR TIMES DAILY Rx Instructions: TAKE 1 TABLET BY MOUTH FOUR TIMES DAILY vitamin E 1,000 unit Capsule 1,000 unit PO QAM ascorbic acid (vitamin C) [Vitamin C] 500 mg Tablet,Chewable 500 mg PO QNOON ondansetron 4 mg tablet,disintegrating 4 mg PO Q8H PRN (Reason: nausea and vomiting) Qty: 7 0RF lactulose 10 gram/15 mL solution 15 ml PO DAILY PRN (Reason: Constipation) metolazone 2.5 mg tablet 2.5 mg PO QAM Hold Instructions: Resume on 02/28/24. Humalog KwikPen Insulin 100 unit/mL insulin pen See Rx Instructions .ROUTE .COMPLEX 90 Days Qty: 75.6 1RF Rx Instructions: Inject, subcut, 3 times daily, after meals, based on sliding scale provided Discharge Orders: Discharge ED (Routine); Ordered 05/13/24 Ordered By: Brittani Chawla Referrals: Arabella Orta MD [Primary Care Provider] - Activity Restrictions/Additional Instructions: As we discussed, please follow-up with primary care next week for reevaluation. You may return to the emergency department at anytime for any further concerns you may have. I hope you begin to feel better soon. Sign Out Sign Out Data: Patient Sign Out occurred on 05/13/24 at 21:37. Patient's care was discussed, and care was transferred from RAVEN Holm to RAVEN Diaz. Coding Level of Care Code ED Derivatives Trader for Chg Fwd Related Data Home Medications Medication Instructions Recorded Confirmed Lactobacillus acidophilus 1 cap PO QAM 06/01/19 05/10/24 (Acidophilus capsule) cholecalciferol (vitamin D3) 25 1,000 unit PO QPM 06/01/19 05/10/24 mcg (1,000 unit) capsule cranberry 500 mg capsule 500 mg PO QPM 06/01/19 05/10/24 ferrous sulfate 325 mg (65 mg 325 mg PO DAILY@06/21/19 05/10/24 iron) tablet magnesium oxide 400 mg (241.3 mg 500 mg PO DAILY@02/14/21 05/10/24 magnesium) tablet ascorbic acid (vitamin C) 500 mg 500 mg PO QNOON 11/14/21 05/10/24 chewable tablet (Vitamin C) vitamin E 670 mg (1,000 unit) 1,000 unit PO QAM 11/14/21 05/10/24 capsule esomeprazole magnesium 40 mg 40 mg PO QAM 05/19/22 05/10/24 capsule,delayed release furosemide 20 mg tablet 40 mg PO QAM 05/19/22 05/10/24 potassium chloride 8 mEq 24 meq PO QAM 05/19/22 05/10/24 capsule,extended release metolazone 2.5 mg tablet 2.5 mg PO QAM 04/05/23 05/10/24 lactulose 10 gram/15 mL oral 15 ml PO DAILY PRN Constipation 06/23/23 05/10/24 solution melatonin 3 mg capsule 3 mg PO DAILY 11/18/23 05/10/24 Previous Rx's Medication Instructions Recorded blood sugar diagnostic #400 ea 09/02/21 lancets 21 gauge (Comfort EZ #400 ea 09/02/21 Lancets) blood sugar diagnostic (Easymax 15 #400 ea 09/11/21 test strips) flash glucose scanning reader #1 ea 02/17/22 (FreeStyle Tro 2 [place]) flash glucose sensor (FreeStyle #3 ea 02/17/22 Tor 2 Sensor kit) ondansetron 4 mg disintegrating 4 mg PO Q8H PRN nausea and 04/24/22 tablet vomiting #7 tabs nitroglycerin 0.4 mg sublingual 0.4 mg sublingual Q5M PRN chest 08/04/23 tablet pain 30 days #30 tabs aripiprazole 2 mg tablet 2 mg PO BEDTIME #30 tabs 08/12/23 levalbuterol tartrate 45 2 inh inhalation Q6H #15 grams 09/13/23 mcg/actuation aerosol inhaler ([employer]now [employer] HFA) fluticasone furoate 100 1 inh inhalation DAILY #60 ea 09/20/23 mcg-vilanterol 25 mcg/dose inhalation powder (Breo Ellipta) isosorbide mononitrate 120 mg 120 mg PO DAILY@12 #90 tabs 09/20/23 tablet,extended release 24 hr atorvastatin 40 mg tablet 40 mg PO BEDTIME #90 tabs 01/28/24 insulin lispro 100 unit/mL See Rx Instructions .Route 02/21/24 subcutaneous pen (Humalog KwikPen .COMPLEX 90 days #75.6 mL (U-100) Insulin) hydrocodone 10 mg-acetaminophen 1 tab PO Q4H PRN pain 7 days #42 05/02/24 325 mg tablet tabs insulin degludec 200 unit/mL (3 64 unit (0.32 mL) SUBCUT DAILY 30 05/02/24 mL) subcutaneous pen (Tresi days #27 mL FlexTouch U-200 insulin) pen needle, diabetic 31 gauge x #400 ea 05/02/2408/06 (BD Ultra-Fine Mini Pen Needle) hydrocortisone 10 mg tablet See Rx Instructions .Route 05/08/24 .COMPLEX #360 tabs Allergies Allergy/AdvReac Type Severity Reaction Status Date / Time morphine Allergy Severe RESPIRATORY Verified 05/10/24 15:21 DISTRESS doxycycline Allergy Mild THROAT Verified 05/10/24 15:21 SWELLING duloxetine [From Cymbalta] Allergy Mild SWELLING, Verified 05/10/24 15:21 VOMITING metformin Allergy Mild THROAT Verified 05/10/24 15:21 SWELLING oxybutynin [From Oxytrol] Allergy Mild ALGY-Rash Verified 05/10/24 15:21 Penicillins Allergy Mild ALGY-Rash Verified 05/10/24 15:21 Sulfa (Sulfonamide Allergy Mild STOMACH Verified 05/10/24 15:21 Antibiotics) CRAMPS alprazolam [From Xanax] Allergy Unknown Unknown Verified 05/10/24 15:21 amitriptyline Allergy Unknown Unknown Verified 05/10/24 15:21 Barbiturates Allergy Unknown stomach Verified 05/10/24 15:21 cramps cefuroxime [From Ceftin] Allergy Unknown stomach Verified 05/10/24 15:21 cramps insulin detemir Allergy Unknown Unknown Verified 05/10/24 15:21 [From Levemir U-100 Insulin] levofloxacin [From Levaquin] Allergy Unknown Unknown Verified 05/10/24 15:21 liraglutide [From Victoza] Allergy Unknown Unknown Verified 05/10/24 15:21 metoclopramide [From Reglan] Allergy Unknown Unknown Verified 05/10/24 15:21 nitrofurantoin Allergy Unknown Unknown Verified 05/10/24 15:21 [From Macrobid] pregabalin [From Lyrica] Allergy Unknown Unknown Verified 05/10/24 15:21 divalproex sodium Allergy ALGY-Hives Verified 05/10/24 15:21 [From Depakote] gabapentin Allergy bone, Verified 05/10/24 15:21 muscle pain and mood swings venlafaxine Allergy Unknown Verified 05/10/24 15:21 meloxicam AdvReac Severe ADR-Vomitin Verified 05/10/24 15:21 g ciprofloxacin [From Cipro] AdvReac Mild stomach Verified 05/10/24 15:21 upset hydromorphone [From Dilaudid] AdvReac Unknown PT STATES Verified 05/10/24 15:21 IT MAKES ME CRAZY
[2024-05-13 20:01] LABS: Basophils # 0.1 10^3/uL (0.0-0.1); Basophils % 0.3 %; Eosinophils # 0.1 10^3/uL (0.0-0.8); Eosinophils % 0.8 %; Hematocrit 36.7 % (36-47); Lymphocytes # 1.4 10^3/uL (0.8-4.8); Lymphocytes % 8.1 %; Mean Corpuscular HGB Conc 32.4 g/dL (30-55); Mean Corpuscular Hemoglobin 29.6 pg (27-33); Mean Corpuscular Volume 91.3 fl (85-98); Mean Platelet Volume 9.6 fL (7.4-10.4); Monocytes # 0.9 10^3/uL (0.2-0.9); Monocytes % 5.4 %; Neutrophils # 14.51 10^3/uL (1.8-7.7); Nucleated Red Blood Cells % 0 %; Platelet Count 217 10^3/cmm (157-399); Red Blood Count 4.02 10^6/uL (3.85-5.65); Red Cell Distribution Width 13.4 % (12.1-15.1); White Blood Count 17.07 10^3/uL (3.29-11.43)
[2024-05-13 20:20] LABS: Alanine Aminotransferase 30 U/L (0-33); Albumin Level 3.8 g/dL (3.5-5.2); Alkaline Phosphatase 165 U/L (35-105); Anion Gap 16.8 (5-19); Aspartate Amino Transferase 31 U/L (0-32); Blood Urea Nitrogen 13 mg/dL (8-23); Carbon Dioxide 29 mmol/L (22-29); Chloride 96 mmol/L (98-107); Creatinine Clr Calc Pharmacy 65.0038; Globulin 2.6 g/dL (1.3-4.6); Glucose 179 mg/dL (65-115); Magnesium 1.7 mg/dL (1.7-2.3); Osmolality Calculated 289 mOsm/kg (285-295); Potassium 4.8 mmol/L (3.5-5.1); Sodium 137 mmol/L (136-145); Total Bilirubin 0.7 mg/dL (0.15-1.2); Total Protein 6.4 g/dL (6.6-8.7); Troponin(5th) Baseline 28 ng/L (0-10)
[2024-05-13 20:23] LABS: Lactic Sepsis W/Reflex 2.6 mmol/L (0.5-2.2)
[2024-05-13 20:27] LABS: Procalcitonin 0.12 ng/mL (0-0.5)
--- NOTE | 2024-05-13 20:32 | XRR_ITS ---
PROCEDURE INFORMATION: Exam: XR Chest Exam date and time: 05/13/2024 8:40 PM Age: 79 years old Clinical indication: Abnormal findings; Abnormal diagnostic tests; Abnormal ekg; Patient HX: Weakness; Leukocytosis; Elevated lactic acid; Additional info: Weakness, elevated wbc, elevated lactic TECHNIQUE: Imaging protocol: Radiologic exam of the chest. Views: 2 views. COMPARISON: CR (CHEST, ) 04/16/2024 11:15 PM FINDINGS: Lungs: No focal consolidation. Mild pulmonary vascular congestion. Pleural spaces: No evidence of pneumothorax. No evidence of pleural effusion. Heart/Mediastinum: Cardiomediastinal silhouette is within normal limits. Bones/joints: No evidence of acute osseous abnormality. XR/XR chest 2V* [id number] IMPRESSION: 1. Mild pulmonary vascular congestion. Otherwise no acute cardiopulmonary abnormality.
[2024-05-13 20:47] LABS: Bilirubin Urine Negative (Negative); Blood Urine Negative (Negative); Glucose Urine UA Negative (Normal); Ketones Urine Negative (Negative); Leukocyte Esterase Urine Trace (Negative); Nitrate Urine Negative (Negative); Protein Urine Negative (Negative); Specific Gravity, Urine 1.015 (1.005-1.030); Urine Appearance Clear (CLEAR); Urine Color Yellow (Yellow)
[2024-05-13 20:53] LABS: Add Urine Microscopic? YES; Bacteria Urine None Seen /hpf; RBC Urine 0-2 /hpf (0-2); Squamous Epithelial Cell Urine 0-5 /hpf (0-5)
[2024-05-13 21:14] LABS: NT Pro B Type Natriuretic Pept 159 pg/mL (0-450)
[2024-05-13 21:19] LABS: Covid PCR NEGATIVE (Negative); Influenza A NEGATIVE (Negative); Influenza B NEGATIVE (Negative); Respiratory Syncytial Virus Ce NEGATIVE (Negative)
[2024-05-13 21:32] VITALS: BP 151/44; PULSE 94; RESP 16; O2SAT 96
--- NOTE | 2024-05-13 21:40 | ECG_ITS ---
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 Measurements Intervals [place] Rate: 87 P: 39 OK: 147 QRS: -24 QRSD: 100 T: 53 QT: 346 QTc: 418 Interpretive Statements SINUS RHYTHM BORDERLINE LEFT AXIS DEVIATION [QRS AXIS < -20] Compared to ECG 04/19/2024 02:15:14 T-wave abnormality no longer present Electronically Signed On 05-15-2024 20:32:06 ACCOUNT DIRECTOR by Jose Sumner M.D. [email or web address]
[2024-05-13 21:45] LABS: Reflex Lactate Order REFLEX LACTIC ORDERD
[2024-05-13 22:00] VITALS: BP 139/50; PULSE 89; RESP 16; O2SAT 96
[2024-05-13 22:49] VITALS: BP 146/58; PULSE 98; RESP 16; O2SAT 94
[2024-05-13 23:16] LABS: Troponin 5 2HR 31.44 ng/L (0-10); Troponin 5 2HR Delta 3.44 ABS# (0-10)
[2024-05-13 23:17] LABS: Lactic Acid level (Lactate) 2.1 mmol/L (0.5-2.2)
[2024-05-14 01:12] VITALS: BP 159/82; PULSE 92; RESP 17; O2SAT 97
== END 2024-05-14 01:14 | disposition home or self-care (01) ==
PROVIDERS: Physician Assistant; Emergency Provider Physician Assistant; PCP Family Medicine
DX: R53.1 Weakness (principal); Z11.52 Encounter for screening for COVID-19; Z79.4 Long term (current) use of insulin; I25.10 Atherosclerotic heart disease of native coronary artery without angina pectoris; I10 Essential (primary) hypertension; E78.5 Hyperlipidemia, unspecified; Z87.891 Personal history of nicotine dependence
CPT/HCPCS: 0241U; 36415; 71046; 80053; 81001; 83605; 83735; 83880; 84145; 84484; 85025; 87040; 87086; 93005; 99285

== ENCOUNTER 2024-05-19 12:00 | Outpatient (CLI) | payer MEDICARE, OTHER, SELFPAY ==
[2024-05-19 12:43] LABS: Anion Gap 12.2 (5-19); Blood Urea Nitrogen 11 mg/dL (8-23); Calcium 10.2 mg/dL (8.5-10.5); Carbon Dioxide 30 mmol/L (22-29); Chloride 93 mmol/L (98-107); Glucose 234 mg/dL (65-115); Osmolality Calculated 279 mOsm/kg (285-295); Potassium 4.2 mmol/L (3.5-5.1); Sodium 131 mmol/L (136-145)
== END 2024-05-19 12:01 | disposition home or self-care (01) ==
PROVIDERS: PCP Family Medicine; Visit Provider Family Medicine
DX: E11.9 Type 2 diabetes mellitus without complications (principal); E27.1 Primary adrenocortical insufficiency
CPT/HCPCS: 80048

== ENCOUNTER 2024-06-01 15:25 | Outpatient (CLI) | payer MEDICARE, OTHER, SELFPAY ==
--- NOTE | 2024-06-01 16:27 | XRR_ITS ---
PROCEDURE INFORMATION: Exam: XR Left Knee Exam date and time: 06/01/2024 4:31 PM Age: 79 years old Clinical indication: Patient HX: Chronic left knee pain with no specific injury, limited rom and frequent cramping TECHNIQUE: Imaging protocol: Radiologic exam of the left knee. Views: 3 views. COMPARISON: CT angio abd aorta runof [id number] 04/12/2023 7:16 AM FINDINGS: Bones/joints: Diffuse osseous demineralization features. Negative for acute fracture. Unremarkable joint alignment. Negative for joint effusion. No focal aggressive osteolytic lesion. Moderate severity diffuse joint space narrowing. Soft tissues: Normal. Other findings: Scattered calcified atherosclerotic wall plaque. XR/XR knee LT 3V* [id number] IMPRESSION: Negative for acute pathology.
== END 2024-06-01 15:26 | disposition home or self-care (01) ==
PROVIDERS: PCP Family Medicine; Visit Provider Family Medicine
DX: M25.562 Pain in left knee (principal); R93.6 Abnormal findings on diagnostic imaging of limbs; M25.862 Other specified joint disorders, left knee
CPT/HCPCS: 73562

== ENCOUNTER 2024-06-09 04:20 | Emergency (ER) | payer MEDICARE, OTHER, SELFPAY ==
[2024-06-09] VITALS (8 sets, daily range): BP systolic 118–163; BP diastolic 40–66; PULSE 76–94; RESP 20–28; TEMP 36.6; O2SAT 91–99; BMI 36.6
--- NOTE | 2024-06-09 04:24 | ECG_ITS ---
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 Beam Warper Tender: : 1945 Requested By: Cristobal Monroe Order Number: [id number] Reading MD: STEPH CHAUDHRY Measurements Intervals [place] Rate: 82 P: 38 IA: 167 QRS: -26 QRSD: 104 T: 82 QT: 375 QTc: 440 Interpretive Statements SINUS RHYTHM BORDERLINE LEFT AXIS DEVIATION [QRS AXIS < -20] INCOMPLETE RIGHT BUNDLE BRANCH BLOCK [90+ ms QRS DURATION, TERMINAL R IN V1/V2, 40+ ms S IN I/aVL/V4/V5/V6] LEFT VENTRICULAR HYPERTROPHY AND ST-T CHANGE [VOLTAGE CRITERIA PLUS ST/T ABNORMALITY] Compared to ECG 05/14/2024 00:25:58 Incomplete right bundle-branch block now present Left ventricular hypertrophy now present ST (T wave) deviation now present Electronically Signed On 06-09-2024 23:32:48 SCHEDULE CLERK by STEPH CHAUDHRY [email or web address]
--- NOTE | 2024-06-09 04:25 | ECG_ITS ---
[facility] Test Date: 2024-06-09 Pat Name: Brandi Berg Department: Room: Gender: Female Application Release Manager: : 1945 Requested By: Cristobal Monroe Order Number: [id number] Reading MD: STEPH CHAUDHRY Measurements Intervals [place] Rate: 90 P: -10 MS: 159 QRS: -32 QRSD: 130 T: 61 QT: 381 QTc: 468 Interpretive Statements SINUS RHYTHM LEFT AXIS DEVIATION [QRS AXIS < -30] MODERATE VOLTAGE CRITERIA FOR LVH, CONSIDER NORMAL VARIANT [MEETS CRITERIA IN ONE OF: R(aVL), S(V1), R(V5), R(V5/V6)+S(V1)] POSSIBLE SEPTAL MYOCARDIAL INFARCTION , OF INDETERMINATE AGE [30 ms Q WAVE IN V1/V2] Compared to ECG 06/09/2024 04:24:49 Myocardial infarct finding now present Incomplete right bundle-branch block no longer present ST (T wave) deviation no longer present Electronically Signed On 06-09-2024 23:22:43 CONDUIT INSTALLER by STEPH CHAUDHRY [email or web address]
--- NOTE | 2024-06-09 04:25 | XRR_ITS ---
PROCEDURE INFORMATION: Exam: XR Chest Exam date and time: 06/09/2024 4:34 AM Age: 79 years old Clinical indication: Pain; Chest pressure; Additional info: Chest pain TECHNIQUE: Imaging protocol: Radiologic exam of the chest. Views: 1 view. COMPARISON: CR XR chest 2V* [id number] 05/13/2024 8:40 PM FINDINGS: Lungs: Unremarkable. No consolidation. Pleural spaces: Unremarkable. No pleural effusion. No pneumothorax. Heart/Mediastinum: Unremarkable. No cardiomegaly. Bones/joints: Unremarkable. XR/XR chest 1V portable [id number] IMPRESSION: No acute findings.
--- NOTE | 2024-06-09 04:27 | W.ED.CHESTPA ---
Documented by User: Cristobal MonoreDO 06/09/24 04:31 HPI - Chest Pain General: Chief Complaint: Chest Pain Stated Complaint: CHEST PAIN Time Seen by Provider: 06/09/24 04:25 History of Present Illness: Patient presents to the ER from EMS for evaluation of chest pain that radiates around her rib cage to her back. Woke her up from her sleep.. Patient did receive 1 nitro, 1 inch Nitropaste, 3 and 24 mg aspirin by EMS. Patient [place] any other symptoms such as nausea vomiting shortness of breath diaphoresis. Patient is glucose was 183 per EMS. Patient does have [place]'s disease and does see rheumatology. Patient had a sestamibi Lexiscan stress test In June 2023 that was read Stable. Related Data Home Medications Medication Instructions Recorded Confirmed cholecalciferol (vitamin D3) 25 1,000 unit PO QPM 06/01/19 06/09/24 mcg (1,000 unit) capsule cranberry 500 mg capsule 500 mg PO QPM 06/01/19 06/09/24 ferrous sulfate 325 mg (65 mg 325 mg PO DAILY@12 06/21/19 06/09/24 iron) tablet magnesium oxide 400 mg (241.3 mg 500 mg PO DAILY@12 02/14/21 06/09/24 magnesium) tablet ascorbic acid (vitamin C) 500 mg 500 mg PO QNOON 11/14/21 06/09/24 chewable tablet (Vitamin C) vitamin E 670 mg (1,000 unit) 1,000 unit PO QAM 11/14/21 06/09/24 capsule esomeprazole magnesium 40 mg 40 mg PO QAM 05/19/22 06/09/24 capsule,delayed release potassium chloride 8 mEq 24 meq PO QAM 05/19/22 06/09/24 capsule,extended release lactulose 10 gram/15 mL oral 15 ml PO DAILY PRN Constipation 06/23/23 06/09/24 solution melatonin 3 mg capsule 3 mg PO BEDTIME 11/18/23 06/09/24 amlodipine 10 mg tablet 10 mg PO DAILY 06/09/24 06/09/24 hydrocortisone 10 mg tablet 10 mg PO QID 06/09/24 06/09/24 insulin degludec 200 unit/mL (3 32 unit SUBCUT BID 06/09/24 06/09/24 mL) subcutaneous pen (Tresiba FlexTouch U-200 insulin) insulin lispro 100 unit/mL 28 unit SUBCUT TID 06/09/24 06/09/24 subcutaneous pen (Humalog KwikPen (U-100) Insulin) mupirocin 2 % topical ointment 1 applic topical TID PRN Skin 06/09/24 06/09/24 Irritation torsemide 20 mg tablet 20 mg PO BID 06/09/24 06/09/24 valsartan 320 mg tablet 320 mg PO QPM 06/09/24 06/09/24 Previous Rx's Medication Instructions Recorded blood sugar diagnostic #400 ea 09/02/21 lancets 21 gauge (Comfort EZ #400 ea 09/02/21 Lancets) blood sugar diagnostic (Easymax 15 #400 ea 09/11/21 test strips) flash glucose scanning reader #1 ea 02/17/22 (FreeStyle Tor 2 [place]) flash glucose sensor (FreeStyle #3 ea 02/17/22 Tor 2 Sensor kit) nitroglycerin 0.4 mg sublingual 0.4 mg sublingual Q5M PRN chest 08/04/23 tablet pain 30 days #30 tabs aripiprazole 2 mg tablet 2 mg PO BEDTIME #30 tabs 08/12/23 fluticasone furoate 100 1 inh inhalation DAILY #60 ea 09/20/23 mcg-vilanterol 25 mcg/dose inhalation powder (Breo Ellipta) isosorbide mononitrate 120 mg 120 mg PO DAILY@12 #90 tabs 09/20/23 tablet,extended release 24 hr pen needle, diabetic 31 gauge x #400 ea 05/02/24 3/16 (BD Ultra-Fine Mini Pen Needle) hydrocodone 10 mg-acetaminophen 1 tab PO Q4H PRN pain 7 days #42 05/31/24 325 mg tablet tabs Allergies Allergy/AdvReac Type Severity Reaction Status Date / Time morphine Allergy Severe RESPIRATORY Verified 05/19/24 11:29 DISTRESS doxycycline Allergy Mild THROAT Verified 05/19/24 11:29 SWELLING duloxetine [From Cymbalta] Allergy Mild SWELLING, Verified 05/19/24 11:29 VOMITING metformin Allergy Mild THROAT Verified 05/19/24 11:29 SWELLING oxybutynin [From Oxytrol] Allergy Mild ALGY-Rash Verified 05/19/24 11:29 Penicillins Allergy Mild ALGY-Rash Verified 05/19/24 11:29 Sulfa (Sulfonamide Allergy Mild STOMACH Verified 05/19/24 11:29 Antibiotics) CRAMPS alprazolam [From Xanax] Allergy Unknown Unknown Verified 05/19/24 11:29 amitriptyline Allergy Unknown Unknown Verified 05/19/24 11:29 Barbiturates Allergy Unknown stomach Verified 05/19/24 11:29 cramps cefuroxime [From Ceftin] Allergy Unknown stomach Verified 05/19/24 11:29 cramps insulin detemir Allergy Unknown Unknown Verified 05/19/24 11:29 [From Levemir U-100 Insulin] levofloxacin [From Levaquin] Allergy Unknown Unknown Verified 05/19/24 11:29 liraglutide [From Victoza] Allergy Unknown Unknown Verified 05/19/24 11:29 metoclopramide [From Reglan] Allergy Unknown Unknown Verified 05/19/24 11:29 nitrofurantoin Allergy Unknown Unknown Verified 05/19/24 11:29 [From Macrobid] pregabalin [From Lyrica] Allergy Unknown Unknown Verified 05/19/24 11:29 divalproex sodium Allergy ALGY-Hives Verified 05/19/24 11:29 [From Depakote] gabapentin Allergy bone, Verified 05/19/24 11:29 muscle pain and mood swings venlafaxine Allergy Unknown Verified 05/19/24 11:29 meloxicam AdvReac Severe ADR-Vomitin Verified 05/19/24 11:29 g ciprofloxacin [From Cipro] AdvReac Mild stomach Verified 05/19/24 11:29 upset hydromorphone [From Dilaudid] AdvReac Unknown PT STATES Verified 05/19/24 11:29 IT MAKES ME CRAZY Review of Systems General: Reports: 10 or more systems reviewed and unremarkable except in HPI and below PFSH ED PFSH: Medical History C. 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 Left axis deviation. Normal [place] and QRS duration. Dyslipidemia (high LDL; low HDL) Benign essential hypertension with target blood pressure below 140/90 Atherosclerotic heart disease of [place] coronary artery without angina pectoris Status post left heart catheterization Recurrent UTI Gross hematuria Bipolar II disorder Surgical History Hx of bilateral hip replacements Hx of bladder repair surgery History of colonoscopy (~2018) History of coronary artery stent placement History of right knee surgery S/P appendectomy S/P hysterectomy S/P hernia repair S/P hip replacement Family History Family/Other Diabetes Other Cancer Social History Smoking and tobacco/nicotine status: tobacco/nicotine user, details unknown Alcohol intake: never Substance/Drug Use: never Household members: spouse Marital status: Current occupational status: retired Physical Exam Const: COMMON NORMALS: no acute distress, average body habitus, patient oriented x3, no limitations, healthy appearing, alert and well nourished HENMT: COMMON NORMALS: normocephalic, atraumatic, hearing grossly normal bilaterally, external ears normal, Normal external nose present and moist oral mucous membranes HEAD & SCALP: normocephalic and atraumatic NOSE: Normal external nose present EXTERNAL EAR: Yes external ears normal Neck/C-Spine: COMMON NORMALS: no JVD Chest: COMMONS NORMALS: normal inspection of the chest and normal palpation of entire chest wall Resp: COMMON NORMALS: normal respiratory effort, No retractions, No use of accessory muscles and clear to auscultation bilaterally AUSCULTATION: clear to auscultation bilaterally Cardio: COMMON NORMALS: no JVD, regular rate, regular rhythm, S1 normal heart sound present, S2 normal heart sound present, No gallops present (Cardio), No clicks present (Cardio), No murmurs present (Cardio) and No rub (Cardio) RATE: regular rate RHYTHM: regular rhythm HEART SOUNDS: S1 normal heart sound present and S2 normal heart sound present GI: COMMON NORMALS: Normal to inspection, nondistended, normoactive bowel sounds present, Soft to palpation, non-tender, No hepatosplenomegaly present and no masses PALPATION: Yes Soft to palpation and Yes No hepatosplenomegaly present Neuro: COMMON NORMALS: patient oriented x3 SENSORIUM/ORIENTATION: Yes alert Course Vital Signs: Vital signs: Vital Signs Temperature 97.9 F 06/09/24 04:20 Pulse Rate 76 06/09/24 11:34 Respiratory Rate 25 H 06/09/24 06:17 Blood Pressure 118/46 06/09/24 11:34 Pulse Oximetry 99 06/09/24 11:34 Oxygen Delivery Me thod Room Air 06/09/24 11:34 MDM - Chest Pain Medical Records I reviewed the patient's medical records. Lab Data I reviewed the patient's lab results. 06/09/24 09:52 06/09/24 04:00 Radiology Impressions Chest X-Ray 06/09/24 04:25 IMPRESSION: No acute findings. Abdomen/Pelvis CTA 06/09/24 06:32 IMPRESSION: 1. There is no evidence for aneurysmal dilatation, dissection or extravasation the visualized aorta. 2. There is no evidence for significant stenosis or occlusion the visualized paired and unpaired arteries of the abdomen and pelvis. Cholangiopancreatography MRI 06/09/24 09:57 IMPRESSION: 1. Normal common bile duct. No evidence for choledocholithiasis. 2. Very small gallbladder. Gallbladder is either surgically absent or small caliber. Similar findings have been noted on multiple prior CTs dating back to 2005. No acute findings are identified on today's MRI in the gallbladder fossa. 3. No intrahepatic duct dilatation. 4. Mild diffuse hepatic steatosis. Laboratory Results WBC 7.09 10^3/uL (3.29-11.43) 06/09/24 09:52 RBC 4.28 10^6/uL (3.85-5.65) 06/09/24 09:52 Hgb 12.50 g/dL (11.27-16.99) 06/09/24 09:52 Hct 37.5 % (36-47) 06/09/24 09:52 MCV 87.6 fl (85-98) 06/09/24 09:52 MCH 29.2 pg (27-33) 06/09/24 09:52 MCHC 33.3 g/dL (30-55) 06/09/24 09:52 RDW 13.4 % (12.1-15.1) 06/09/24 09:52 Plt Count 225 10^3/cmm (157-399) 06/09/24 09:52 MPV 10.0 fL (7.4-10.4) 06/09/24 09:52 Neut % (Auto) 65.0 % 06/09/24 09:52 Lymph % (Auto) 22.7 % 06/09/24 09:52 [place] % (Auto) 10.4 % 06/09/24 09:52 Eos % (Auto) 1.4 % 06/09/24 09:52 Baso % (Auto) 0.1 % 06/09/24 09:52 Neut # (Auto) 4.60 10^3/uL (1.8-7.7) 06/09/24 09:52 Lymph # (Auto) 1.6 10^3/uL (0.8-4.8) 06/09/24 09:52 [place] # (Auto) 0.7 10^3/uL (0.2-0.9) 06/09/24 09:52 Eos # (Auto) 0.1 10^3/uL (0.0-0.8) 06/09/24 09:52 Baso # (Auto) 0.0 10^3/uL (0.0-0.1) 06/09/24 09:52 Nucleated RBC % (auto) 0 % 06/09/24 09:52 Nucleated RBCs # 0.0 /100WBC 06/09/24 09:52 Sodium 132 mmol/L (136-145) L 06/09/24 04:00 Potassium 3.2 mmol/L (3.5-5.1) L 06/09/24 04:00 Chloride 86 mmol/L (98-107) L 06/09/24 04:00 Carbon Dioxide 31 mmol/L (22-29) H 06/09/24 04:00 Anion Gap 18.2 (5-19) 06/09/24 04:00 BUN 31 mg/dL (8-23) H 06/09/24 04:00 Creatinine 0.9 mg/dL (0.5-0.9) 06/09/24 04:00 GFR Calculation Not Reportable 06/09/24 04:00 Glucose 275 mg/dL (65-115) H 06/09/24 04:00 Calculated Osmolality 290 mOsm/kg (285-295) 06/09/24 04:00 Calcium 10.7 mg/dL (8.5-10.5) H 06/09/24 04:00 Magnesium 1.9 mg/dL (1.7-2.3) 06/09/24 04:00 Total Bilirubin 0.5 mg/dL (0.15-1.2) 06/09/24 04:00 AST 77 U/L (0-32) H 06/09/24 04:00 ALT 40 U/L (0-33) H 06/09/24 04:00 Alkaline Phosphatase 208 U/L (35-105) H 06/09/24 04:00 Troponin T Baseline 22 ng/L (0-10) H 06/09/24 04:00 Troponin T 120 Minute 20.84 ng/L (0-10) H 06/09/24 06:36 Delta Troponin T -1.16 ABS# (0-10) L 06/09/24 06:36 Troponin T Hi Sens 6Hr 23.62 ng/L (0-10) H 06/09/24 09:52 Troponin T Hi Sens 6Hr Delta 1.62 ng/L (0-12) 06/09/24 09:52 Total Protein 7.8 g/dL (6.6-8.7) 06/09/24 04:00 Albumin 4.1 g/dL (3.5-5.2) 06/09/24 04:00 Globulin 3.7 g/dL (1.3-4.6) 06/09/24 04:00 Lipase 13 U/L (13-60) 06/09/24 04:00 All radiology interpretation(s) finalized by discharge Discharge Plan Discharge Patient Disposition: Home Clinical Impression: Acute chest pain, Abdominal pain, acute Condition: Good Prescriptions: No Action cholecalciferol (vitamin D3) 1,000 unit capsule 1,000 unit PO QPM cranberry 500 mg capsule 500 mg PO QPM ferrous sulfate 325 mg (65 mg iron) tablet 325 mg PO DAILY@12 magnesium oxide 400 mg (241.3 mg magnesium) tablet 500 mg PO DAILY@12 aripiprazole 2 mg tablet 2 mg PO BEDTIME Qty: 30 11RF (DME) pen needle, diabetic [BD Ultra-Fine Mini Pen Needle] 31 gauge x 3/16 needle See Rx Instructions .ROUTE .COMPLEX Qty: 400 0RF Dose Instruction: USE WITH INSULIN FOUR TIMES DAILY Rx Instructions: USE WITH INSULIN FOUR TIMES DAILY potassium chloride 8 mEq capsule, extended release 24 meq PO QAM (DME) FreeStyle Tor 2 Sensor Kit See Rx Instructions .MEDSUPPLY Qty: 3 3RF Rx Instructions: As directed (DME) FreeStyle Tor 2 [place] Misc See Rx Instructions .Route Qty: 1 0RF Rx Instructions: As directed esomeprazole magnesium 40 mg capsule,delayed release(DR/EC) 40 mg PO QAM melatonin 3 mg capsule 3 mg PO BEDTIME (DME) blood sugar diagnostic Strip See Rx Instructions .Route Qty: 400 3RF Rx Instructions: Check blood sugar 4 times a day. (DME) lancets [Comfort EZ Lancets] 21 gauge misc See Rx Instructions .Route Qty: 400 3RF Rx Instructions: As directed (DME) Easymax 15 test strips Strip See Rx Instructions .Route Qty: 400 3RF Rx Instructions: Check BS 4 times a day. nitroglycerin 0.4 mg tablet, sublingual 0.4 mg sublingual Q5M PRN (Reason: chest pain) 30 Days Qty: 30 3RF Rx Instructions: until response; do not exceed 3 doses per episode fluticasone furoate-vilanterol [Breo Ellipta] 100-25 mcg/dose blister with device 1 inh inhalation DAILY Qty: 60 6RF isosorbide mononitrate 120 mg tablet extended release 24 hr 120 mg PO DAILY@12 Qty: 90 3RF hydrocodone-acetaminophen 10-325 mg tablet 1 tab PO Q4H MDD 6 PRN (Reason: pain) 7 Days Qty: 42 0RF vitamin E 1,000 unit Capsule 1,000 unit PO QAM ascorbic acid (vitamin C) [Vitamin C] 500 mg Tablet,Chewable 500 mg PO QNOON lactulose 10 gram/15 mL solution 15 ml PO DAILY PRN (Reason: Constipation) torsemide 20 mg tablet 20 mg PO BID amlodipine 10 mg tablet 10 mg PO DAILY valsartan 320 mg tablet 320 mg PO QPM mupirocin 2 % ointment 1 applic TOPICAL TID PRN (Reason: Skin Irritation) hydrocortisone 10 mg tablet 10 mg PO QID insulin lispro [Humalog KwikPen Insulin] 100 unit/mL insulin pen 28 unit SUBCUT TID Rx Instructions: after meals, based on sliding scale provided insulin degludec [Tresiba FlexTouch U-200] 200 unit/mL (3 mL) insulin pen 32 unit SUBCUT BID Discharge Orders: Discharge ED (Routine); Ordered 06/09/24 Ordered By: Jeff Herndon Referrals: Arabella Orta MD [Primary Care Provider] - Patient Instructions: Abdominal Pain (ED), Opioid Safety, Pain Management Activity Restrictions/Additional Instructions: Please follow-up on your test results with your doctor. Recheck your liver enzymes with your doctor. Talk to your pain management doctor and primary care doctor about your liver enzyme elevation and review your medications. Please come back if concerning abdominal pain, fever, vomiting, getting worse instead of better, any concerns as discussed Coding Level of Care Code ED Labeler for Chg Fwd Documented by User: Jeff Herndon MD 06/09/24 13:37 HPI - Chest Pain General: Chief Complaint: Chest Pain Stated Complaint: CHEST PAIN Time Seen by Provider: 06/09/24 04:25 Related Data Home Medications Medication Instructions Recorded Confirmed cholecalciferol (vitamin D3) 25 1,000 unit PO QPM 06/01/19 06/09/24 mcg (1,000 unit) capsule cranberry 500 mg capsule 500 mg PO QPM 06/01/19 06/09/24 ferrous sulfate 325 mg (65 mg 325 mg PO DAILY@06/21/19 06/09/24 iron) tablet magnesium oxide 400 mg (241.3 mg 500 mg PO DAILY@02/14/21 06/09/24 magnesium) tablet ascorbic acid (vitamin C) 500 mg 500 mg PO QNOON 11/14/21 06/09/24 chewable tablet (Vitamin C) vitamin E 670 mg (1,000 unit) 1,000 unit PO QAM 11/14/21 06/09/24 capsule esomeprazole magnesium 40 mg 40 mg PO QAM 05/19/22 06/09/24 capsule,delayed release potassium chloride 8 mEq 24 meq PO QAM 05/19/22 06/09/24 capsule,extended release lactulose 10 gram/15 mL oral 15 ml PO DAILY PRN Constipation 06/23/23 06/09/24 solution melatonin 3 mg capsule 3 mg PO BEDTIME 11/18/23 06/09/24 amlodipine 10 mg tablet 10 mg PO DAILY 06/09/24 06/09/24 hydrocortisone 10 mg tablet 10 mg PO QID 06/09/24 06/09/24 insulin degludec 200 unit/mL (3 32 unit SUBCUT BID 06/09/24 06/09/24 mL) subcutaneous pen (Tresiba FlexTouch U-200 insulin) insulin lispro 100 unit/mL 28 unit SUBCUT TID 06/09/24 06/09/24 subcutaneous pen (Humalog KwikPen (U-100) Insulin) mupirocin 2 % topical ointment 1 applic topical TID PRN Skin 06/09/24 06/09/24 Irritation torsemide 20 mg tablet 20 mg PO BID 06/09/24 06/09/24 valsartan 320 mg tablet 320 mg PO QPM 06/09/24 06/09/24 Previous Rx's Medication Instructions Recorded blood sugar diagnostic #400 ea 09/02/21 lancets 21 gauge (Comfort EZ #400 ea 09/02/21 Lancets) blood sugar diagnostic (Easymax 15 #400 ea 09/11/21 test strips) flash glucose scanning reader #1 ea 02/17/22 (FreeStyle Tor 2 [place]) flash glucose sensor (FreeStyle #3 ea 02/17/22 Tor 2 Sensor kit) nitroglycerin 0.4 mg sublingual 0.4 mg sublingual Q5M PRN chest 08/04/23 tablet pain 30 days #30 tabs aripiprazole 2 mg tablet 2 mg PO BEDTIME #30 tabs 08/12/23 fluticasone furoate 100 1 inh inhalation DAILY #60 ea 09/20/23 mcg-vilanterol 25 mcg/dose inhalation powder (Breo Ellipta) isosorbide mononitrate 120 mg 120 mg PO DAILY@12 #90 tabs 09/20/23 tablet,extended release 24 hr pen needle, diabetic 31 gauge x #400 ea 05/02/24 3/16 (BD Ultra-Fine Mini Pen Needle) hydrocodone 10 mg-acetaminophen 1 tab PO Q4H PRN pain 7 days #42 05/31/24 325 mg tablet tabs Allergies Allergy/AdvReac Type Severity Reaction Status Date / Time morphine Allergy Severe RESPIRATORY Verified 05/19/24 11:29 DISTRESS doxycycline Allergy Mild THROAT Verified 05/19/24 11:29 SWELLING duloxetine [From Cymbalta] Allergy Mild SWELLING, Verified 05/19/24 11:29 VOMITING metformin Allergy Mild THROAT Verified 05/19/24 11:29 SWELLING oxybutynin [From Oxytrol] Allergy Mild ALGY-Rash Verified 05/19/24 11:29 Penicillins Allergy Mild ALGY-Rash Verified 05/19/24 11:29 Sulfa (Sulfonamide Allergy Mild STOMACH Verified 05/19/24 11:29 Antibiotics) CRAMPS alprazolam [From Xanax] Allergy Unknown Unknown Verified 05/19/24 11:29 amitriptyline Allergy Unknown Unknown Verified 05/19/24 11:29 Barbiturates Allergy Unknown stomach Verified 05/19/24 11:29 cramps cefuroxime [From Ceftin] Allergy Unknown stomach Verified 05/19/24 11:29 cramps insulin detemir Allergy Unknown Unknown Verified 05/19/24 11:29 [From Levemir U-100 Insulin] levofloxacin [From Levaquin] Allergy Unknown Unknown Verified 05/19/24 11:29 liraglutide [From Victoza] Allergy Unknown Unknown Verified 05/19/24 11:29 metoclopramide [From Reglan] Allergy Unknown Unknown Verified 05/19/24 11:29 nitrofurantoin Allergy Unknown Unknown Verified 05/19/24 11:29 [From Macrobid] pregabalin [From Lyrica] Allergy Unknown Unknown Verified 05/19/24 11:29 divalproex sodium Allergy ALGY-Hives Verified 05/19/24 11:29 [From Depakote] gabapentin Allergy bone, Verified 05/19/24 11:29 muscle pain and mood swings venlafaxine Allergy Unknown Verified 05/19/24 11:29 meloxicam AdvReac Severe ADR-Vomitin Verified 05/19/24 11:29 g ciprofloxacin [From Cipro] AdvReac Mild stomach Verified 05/19/24 11:29 upset hydromorphone [From Dilaudid] AdvReac Unknown PT STATES Verified 05/19/24 11:29 IT MAKES ME CRAZY [facility] ED PFSH: Medical History C. 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 Left axis deviation. Normal [place] and QRS duration. Dyslipidemia (high LDL; low HDL) Benign essential hypertension with target blood pressure below 140/90 Atherosclerotic heart disease of [place] coronary artery without angina pectoris Status post left heart catheterization Recurrent UTI Gross hematuria Bipolar II disorder Surgical History Hx of bilateral hip replacements Hx of bladder repair surgery History of colonoscopy (~2018) History of coronary artery stent placement History of right knee surgery S/P appendectomy S/P hysterectomy S/P hernia repair S/P hip replacement Family History Family/Other Diabetes Other Cancer Social History Smoking and tobacco/nicotine status: tobacco/nicotine user, details unknown Alcohol intake: never Substance/Drug Use: never Household members: spouse Marital status: Current occupational status: retired Course Vital Signs: Vital signs: Vital Signs Temperature 97.9 F 06/09/24 04:20 Pulse Rate 76 06/09/24 11:34 Respiratory Rate 25 H 06/09/24 06:17 Blood Pressure 118/46 06/09/24 11:34 Pulse Oximetry 99 06/09/24 11:34 Oxygen Delivery Me thod Room Air 06/09/24 11:34 MDM - Chest Pain Medical Decision Making Patient seen by myself. She states that she is not having any pain currently other than her chronic pain. She states she takes 10 mg hydrocodone every 6 hours from her doctor and she is due for a pain pill. She has chronic leg pain. No new leg pain. No fever. She states that she went to bed last night feeling fine. She states she was woken by the pain in the middle of the night. She states she thinks it was gas pain. She states it was a band of pain across her upper abdomen that wraps around towards the back and was in her entire abdomen but mostly in epigastric level. She states it did go up into the chest some but was mostly in epigastric region. She has had her gallbladder removed. She states that she had no vomiting. No diarrhea. No fever cough or shortness of breath. Is not pleuritic. She states that it will come back but then when she passes gas it will go away and thinks she thinks that she has gas pains. She denies any known history of aneurysms. She does have diabetes. She has chronic pain in both her legs and chronic swelling she tells me. No injury. No new pain other than the pain she came in with tonight with the abdominal pain. On exam she is alert laying in bed in no acute distress. Neck is supple. She is breathing comfortably. Her abdomen is mildly distended which she states is normal for her. She has mild tenderness throughout. No guarding or rebound. No palpable mass though limited by her abdominal distention. She moves freely in the bed. She has lost her nails on both feet. She has brisk cap refill in her toes and her feet are warm to touch. She has some mild pitting edema both legs which she states is baseline. She moves her knees freely. No calf tenderness. She has chronic skin color changes on her lower legs bilaterally. Differential is broad including SC, dissection, AAA, retained bile duct stone, pancreatitis, diverticulitis, peptic ulcer disease, GERD, cardiac dysrhythmia, among many others. Patient is laying flat breathing comfortably denies pleurisy or shortness of breath. PE would be unlikely. Pain was not sharp or tearing migrating up the back but more pressure discomfort throughout the abdomen and would be atypical for dissection. I did recommend obtaining CT angio of the abdomen pelvis. Mesenteric ischemia would be unlikely by exam and history. Is not postprandial plane. Patient liver enzymes including alk phos and transaminases were elevated from her baseline. Retained bile duct stone considered. Added to the lipase and awaiting delta troponin. I ordered 10 mg hydrocodone for her chronic pain. Patient denies IV dye allergy. [id number] patient is feeling much better. No significant abdominal pain. She still having low back pain on the right and right flank pain. It sounds like this is more chronic and has been going on for at least 3 to [address] scan did not show dilated bile ducts to suggest that she has stone or obstruction and there is no other acute abnormality noted on the CT. Patient still having pain in the right flank however which could be from retained bile duct stone and her alk phos and transaminases were elevated. Will have her follow-up with her doctor to repeat her transaminases and alk phos with a repeat CMP. Will attempt to obtain MRCP if available. The patient states that she is allergic to morphine and Dilaudid but she has had fentanyl in the past multiple times without issue. However 25 mcg of fentanyl IV and Zofran 4 mg IV. Patient's delta troponin was negative and I do not think patient had cardiac event based on her exam and history. Patient is now feeling much better. Her MRI did not show evidence of obstructing stone. With patient clinical improvement and CT and MRI not showing evidence of obstruction I discussed with patient treatment options and limits of MRI and CT. She wants to follow-up outpatient with her doctor. I advised to review her pain medication with her pain medicine doctor with her liver enzyme elevation and also to review her other medications with her doctor. Advised her to follow-up for repeat labs on her liver. Patient may have passed a stone but no signs that it is currently obstructing and she is clinically feeling improved. Advised potential worsening with ascending cholangitis and signs symptoms of worsening to watch and return for. Lab Data 06/09/24 09:52 06/09/24 04:00 Radiology Impressions Chest X-Ray 06/09/24 04:25 IMPRESSION: No acute findings. Abdomen/Pelvis CTA 06/09/24 06:32 IMPRESSION: 1. There is no evidence for aneurysmal dilatation, dissection or extravasation the visualized aorta. 2. There is no evidence for significant stenosis or occlusion the visualized paired and unpaired arteries of the abdomen and pelvis. Cholangiopancreatography MRI 06/09/24 09:57 IMPRESSION: 1. Normal common bile duct. No evidence for choledocholithiasis. 2. Very small gallbladder. Gallbladder is either surgically absent or small caliber. Similar findings have been noted on multiple prior CTs dating back to 2005. No acute findings are identified on today's MRI in the gallbladder fossa. 3. No intrahepatic duct dilatation. 4. Mild diffuse hepatic steatosis. Laboratory Results WBC 7.09 10^3/uL (3.29-11.43) 06/09/24 09:52 RBC 4.28 10^6/uL (3.85-5.65) 06/09/24 09:52 Hgb 12.50 g/dL (11.27-16.99) 06/09/24 09:52 Hct 37.5 % (36-47) 06/09/24 09:52 MCV 87.6 fl (85-98) 06/09/24 09:52 MCH 29.2 pg (27-33) 06/09/24 09:52 MCHC 33.3 g/dL (30-55) 06/09/24 09:52 RDW 13.4 % (12.1-15.1) 06/09/24 09:52 Plt Count 225 10^3/cmm (157-399) 06/09/24 09:52 MPV 10.0 fL (7.4-10.4) 06/09/24 09:52 Neut % (Auto) 65.0 % 06/09/24 09:52 Lymph % (Auto) 22.7 % 06/09/24 09:52 [place] % (Auto) 10.4 % 06/09/24 09:52 Eos % (Auto) 1.4 % 06/09/24 09:52 Baso % (Auto) 0.1 % 06/09/24 09:52 Neut # (Auto) 4.60 10^3/uL (1.8-7.7) 06/09/24 09:52 Lymph # (Auto) 1.6 10^3/uL (0.8-4.8) 06/09/24 09:52 [place] # (Auto) 0.7 10^3/uL (0.2-0.9) 06/09/24 09:52 Eos # (Auto) 0.1 10^3/uL (0.0-0.8) 06/09/24 09:52 Baso # (Auto) 0.0 10^3/uL (0.0-0.1) 06/09/24 09:52 Nucleated RBC % (auto) 0 % 06/09/24 09:52 Nucleated RBCs # 0.0 /100WBC 06/09/24 09:52 Sodium 132 mmol/L (136-145) L 06/09/24 04:00 Potassium 3.2 mmol/L (3.5-5.1) L 06/09/24 04:00 Chloride 86 mmol/L (98-107) L 06/09/24 04:00 Carbon Dioxide 31 mmol/L (22-29) H 06/09/24 04:00 Anion Gap 18.2 (5-19) 06/09/24 04:00 BUN 31 mg/dL (8-23) H 06/09/24 04:00 Creatinine 0.9 mg/dL (0.5-0.9) 06/09/24 04:00 GFR Calculation Not Reportable 06/09/24 04:00 Glucose 275 mg/dL (65-115) H 06/09/24 04:00 Calculated Osmolality 290 mOsm/kg (285-295) 06/09/24 04:00 Calcium 10.7 mg/dL (8.5-10.5) H 06/09/24 04:00 Magnesium 1.9 mg/dL (1.7-2.3) 06/09/24 04:00 Total Bilirubin 0.5 mg/dL (0.15-1.2) 06/09/24 04:00 AST 77 U/L (0-32) H 06/09/24 04:00 ALT 40 U/L (0-33) H 06/09/24 04:00 Alkaline Phosphatase 208 U/L (35-105) H 06/09/24 04:00 Troponin T Baseline 22 ng/L (0-10) H 06/09/24 04:00 Troponin T 120 Minute 20.84 ng/L (0-10) H 06/09/24 06:36 Delta Troponin T -1.16 ABS# (0-10) L 06/09/24 06:36 Troponin T Hi Sens 6Hr 23.62 ng/L (0-10) H 06/09/24 09:52 Troponin T Hi Sens 6Hr Delta 1.62 ng/L (0-12) 06/09/24 09:52 Total Protein 7.8 g/dL (6.6-8.7) 06/09/24 04:00 Albumin 4.1 g/dL (3.5-5.2) 06/09/24 04:00 Globulin 3.7 g/dL (1.3-4.6) 06/09/24 04:00 Lipase 13 U/L (13-60) 06/09/24 04:00 Discharge Plan Discharge Patient Disposition: Home Clinical Impression: Acute chest pain, Abdominal pain, acute Condition: Good Prescriptions: No Action cholecalciferol (vitamin D3) 1,000 unit capsule 1,000 unit PO QPM cranberry 500 mg capsule 500 mg PO QPM ferrous sulfate 325 mg (65 mg iron) tablet 325 mg PO DAILY@12 magnesium oxide 400 mg (241.3 mg magnesium) tablet 500 mg PO DAILY@12 aripiprazole 2 mg tablet 2 mg PO BEDTIME Qty: 30 11RF (DME) pen needle, diabetic [BD Ultra-Fine Mini Pen Needle] 31 gauge x 3/16 needle See Rx Instructions .ROUTE .COMPLEX Qty: 400 0RF Dose Instruction: USE WITH INSULIN FOUR TIMES DAILY Rx Instructions: USE WITH INSULIN FOUR TIMES DAILY potassium chloride 8 mEq capsule, extended release 24 meq PO QAM (DME) FreeStyle Tor 2 Sensor Kit See Rx Instructions .MEDSUPPLY Qty: 3 3RF Rx Instructions: As directed (DME) FreeStyle Tor 2 [place] Misc See Rx Instructions .Route Qty: 1 0RF Rx Instructions: As directed esomeprazole magnesium 40 mg capsule,delayed release(DR/EC) 40 mg PO QAM melatonin 3 mg capsule 3 mg PO BEDTIME (DME) blood sugar diagnostic Strip See Rx Instructions .Route Qty: 400 3RF Rx Instructions: Check blood sugar 4 times a day. (DME) lancets [Comfort EZ Lancets] 21 gauge misc See Rx Instructions .Route Qty: 400 3RF Rx Instructions: As directed (DME) Easymax 15 test strips Strip See Rx Instructions .Route Qty: 400 3RF Rx Instructions: Check BS 4 times a day. nitroglycerin 0.4 mg tablet, sublingual 0.4 mg sublingual Q5M PRN (Reason: chest pain) 30 Days Qty: 30 3RF Rx Instructions: until response; do not exceed 3 doses per episode fluticasone furoate-vilanterol [Breo Ellipta] 100-25 mcg/dose blister with device 1 inh inhalation DAILY Qty: 60 6RF isosorbide mononitrate 120 mg tablet extended release 24 hr 120 mg PO DAILY@12 Qty: 90 3RF hydrocodone-acetaminophen 10-325 mg tablet 1 tab PO Q4H MDD 6 PRN (Reason: pain) 7 Days Qty: 42 0RF vitamin E 1,000 unit Capsule 1,000 unit PO QAM ascorbic acid (vitamin C) [Vitamin C] 500 mg Tablet,Chewable 500 mg PO QNOON lactulose 10 gram/15 mL solution 15 ml PO DAILY PRN (Reason: Constipation) torsemide 20 mg tablet 20 mg PO BID amlodipine 10 mg tablet 10 mg PO DAILY valsartan 320 mg tablet 320 mg PO QPM mupirocin 2 % ointment 1 applic TOPICAL TID PRN (Reason: Skin Irritation) hydrocortisone 10 mg tablet 10 mg PO QID insulin lispro [Humalog KwikPen Insulin] 100 unit/mL insulin pen 28 unit SUBCUT TID Rx Instructions: after meals, based on sliding scale provided insulin degludec [Tresiba FlexTouch U-200] 200 unit/mL (3 mL) insulin pen 32 unit SUBCUT BID Discharge Orders: Discharge ED (Routine); Ordered 06/09/24 Ordered By: Jeff Herndon Referrals: Arabella Orta MD [Primary Care Provider] - Patient Instructions: Abdominal Pain (ED), Opioid Safety, Pain Management Activity Restrictions/Additional Instructions: Please follow-up on your test results with your doctor. Recheck your liver enzymes with your doctor. Talk to your pain management doctor and primary care doctor about your liver enzyme elevation and review your medications. 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
[2024-06-09 04:34] LABS: Basophils % 0.5 %; Eosinophils # 0.2 10^3/uL (0.0-0.8); Eosinophils % 3.7 %; Hematocrit 37.6 % (36-47); Lymphocytes # 1.8 10^3/uL (0.8-4.8); Lymphocytes % 29.1 %; Mean Corpuscular HGB Conc 33.2 g/dL (30-55); Mean Corpuscular Hemoglobin 29.1 pg (27-33); Mean Corpuscular Volume 87.6 fl (85-98); Mean Platelet Volume 10.1 fL (7.4-10.4); Monocytes # 0.8 10^3/uL (0.2-0.9); Monocytes % 12.4 %; Neutrophils # 3.39 10^3/uL (1.8-7.7); Nucleated Red Blood Cells % 0 %; Platelet Count 222 10^3/cmm (157-399); Red Blood Count 4.29 10^6/uL (3.85-5.65); Red Cell Distribution Width 13.4 % (12.1-15.1); White Blood Count 6.28 10^3/uL (3.29-11.43)
[2024-06-09 04:50] LABS: Troponin(5th) Baseline 22 ng/L (0-10)
[2024-06-09 04:53] LABS: Alanine Aminotransferase 40 U/L (0-33); Albumin Level 4.1 g/dL (3.5-5.2); Alkaline Phosphatase 208 U/L (35-105); Anion Gap 18.2 (5-19); Aspartate Amino Transferase 77 U/L (0-32); Blood Urea Nitrogen 31 mg/dL (8-23); Calcium 10.7 mg/dL (8.5-10.5); Carbon Dioxide 31 mmol/L (22-29); Chloride 86 mmol/L (98-107); Creatinine Clr Calc Pharmacy 57.3598; Globulin 3.7 g/dL (1.3-4.6); Glucose 275 mg/dL (65-115); Magnesium 1.9 mg/dL (1.7-2.3); Osmolality Calculated 290 mOsm/kg (285-295); Potassium 3.2 mmol/L (3.5-5.1); Sodium 132 mmol/L (136-145); Total Bilirubin 0.5 mg/dL (0.15-1.2); Total Protein 7.8 g/dL (6.6-8.7)
--- NOTE | 2024-06-09 06:32 | CTR_ITS ---
PROCEDURE INFORMATION: Exam: CTA Abdomen and Pelvis With Contrast Exam date and time: 06/09/2024 6:46 AM Age: 79 years old Clinical indication: Abdominal pain; Generalized; Patient HX: Pain that radiates to ribcage, chest and back TECHNIQUE: Imaging protocol: Computed tomographic angiography of the abdomen and pelvis with contrast. Exam focused on the arteries. 3D rendering (Not supervised by radiologist): MIP and/or 3D reconstructed images were created by the technologist. Radiation optimization: All CT scans at this facility use at least one of these dose optimization techniques: automated exposure control; mA and/or kV adjustment per patient size (includes targeted exams where dose is matched to clinical indication); or iterative reconstruction. Contrast material: OMNI 350; Contrast volume: 100 ml; Contrast route: INTRAVENOUS (IV); COMPARISON: CT angio abdomen pelvis [id number] 09/09/2022 3:33 PM RADIATION DOSE METRICS: Total DLP (mGy-cm): 199.38 FINDINGS: Aorta: See Liver finding. Celiac trunk and mesenteric arteries: See Liver finding. Renal arteries: See Liver finding. Right iliac arteries: No occlusion or significant stenosis. Left iliac arteries: No occlusion or significant stenosis. Liver: Calcifications present within the hepatic parenchyma with calcified granulomas. Calcifications are seen in the thoracic and abdominal aorta, iliac arteries femoral bilaterally and within the splenic artery renal arteries bilaterally. Gallbladder and biliary ducts: Unremarkable. No calcified stones. No ductal dilation. Pancreas: Unremarkable. No mass. No ductal dilation. Spleen: Calcifications are seen within the spleen compatible with calcified granulomas. Adrenal glands: Unremarkable. No mass. Kidneys and ureters: Unremarkable. No solid mass. No hydronephrosis. Stomach and bowel: Unremarkable. No obstruction. No mucosal thickening. Appendix: No evidence of appendicitis. Intraperitoneal space: Unremarkable. No free air. No significant fluid collection. Lymph nodes: Unremarkable. No enlarged lymph nodes. Urinary bladder: Unremarkable. No mass. Reproductive: Unremarkable as visualized. Bones/joints: Status post bipolar hip replacements. Soft tissues: Unremarkable. CT/CT angio abdomen pelvis [id number] IMPRESSION: 1. There is no evidence for aneurysmal dilatation, dissection or extravasation the visualized aorta. 2. There is no evidence for significant stenosis or occlusion the visualized paired and unpaired arteries of the abdomen and pelvis.
[2024-06-09] MEDS: HYDROcodone-acetaminophen 10-325 mg Tablet 1 TAB PO (06:42)
[2024-06-09 06:45] LABS: Lipase 13 U/L (13-60)
[2024-06-09] MEDS: iohexol 350 mg/mL 500 mL Btl (per mL) IV (06:55)
[2024-06-09 06:56] LABS: Troponin 5 2HR 20.84 ng/L (0-10)
[2024-06-09 06:57] LABS: Troponin 5 2HR Delta -1.16 ABS# (0-10)
--- NOTE | 2024-06-09 09:57 | MR_ITS ---
WS: [id number] MRCP (MAGNETIC RESONANCE CHOLANGIOPANCREATOGRAPHY) HISTORY: abdominal pain COMPARISON: CT 06/09/2024 TECHNIQUE: Multiple sequences are performed to evaluate the intra and extrahepatic ducts. No intrahepatic or extrahepatic hepatobiliary duct dilatation. Common bile duct measures approximatel y 4 mm and there is no intraluminal filling defect. Normal appearance of the ampulla of Vater. There is no intrahepatic duct dilatation. Mild diffuse hepatic steatosis. No intrahepatic mass identified. Gallbladder either surgically absent or small caliber. No adjacent inflammation. No fluid collection at the gallbladder bed. Normal splee n. Marked pancreatic atrophy. No pancreatic duct dilatation. Mild perinephric stranding around each k idney. No pleural effusions. Visualized heart is normal size. No adenopathy or ascites. MR/MR MRCP [id number] IMPRESSION: 1. Normal common bile duct. No evidence for choledocholithiasis. 2. Very small gallbladder. Gallbladder is either surgically absent or small ca liber. Similar findings have been noted on multiple prior CTs dating back to 10 11. No acute findings are identified on today's MRI in the gallbladder fossa. 3. No intrahepatic duct dilatation. 4. Mild diffuse hepatic steatosis.
[2024-06-09 10:10] LABS: Basophils % 0.1 %; Eosinophils # 0.1 10^3/uL (0.0-0.8); Eosinophils % 1.4 %; Hematocrit 37.5 % (36-47); Lymphocytes # 1.6 10^3/uL (0.8-4.8); Lymphocytes % 22.7 %; Mean Corpuscular HGB Conc 33.3 g/dL (30-55); Mean Corpuscular Hemoglobin 29.2 pg (27-33); Mean Corpuscular Volume 87.6 fl (85-98); Monocytes # 0.7 10^3/uL (0.2-0.9); Monocytes % 10.4 %; Nucleated Red Blood Cells % 0 %; Platelet Count 225 10^3/cmm (157-399); Red Blood Count 4.28 10^6/uL (3.85-5.65); Red Cell Distribution Width 13.4 % (12.1-15.1); White Blood Count 7.09 10^3/uL (3.29-11.43)
--- NOTE | 2024-06-09 10:16 | ECG_ITS ---
[facility] Test Date: 2024-06-09 Pat Name: Brandi Berg Department: Room: Gender: Female Key Maker: : [id number] Requested By: Cristobal Monroe Order Number: [id number] Reading MD: STEPH CHAUDHRY Measurements Intervals [place] Rate: 73 P: 103 VT: 176 QRS: -27 QRSD: 94 T: 70 QT: 370 QTc: 408 Interpretive Statements SINUS RHYTHM INCOMPLETE RIGHT BUNDLE BRANCH BLOCK [90+ ms QRS DURATION, TERMINAL R IN V1/V2, 40+ ms S IN I/aVL/V4/V5/V6] MINIMAL VOLTAGE CRITERIA FOR LVH, CONSIDER NORMAL VARIANT [MEETS CRITERIA IN ONE OF: R(aVL), S(V1), R(V5), R(V5/V6)+S(V1)] PROBABLE SEPTAL MYOCARDIAL INFARCTION , OF INDETERMINATE AGE [35 ms Q WAVE IN V1/V2] Compared to ECG 06/09/2024 07:23:15 Incomplete right bundle-branch block now present Left-axis deviation no longer present Myocardial infarct finding still present Electronically Signed On 06-09-2024 23:32:35 POST CLOSING SPECIALIST by STEPH CHAUDHRY [email or web address]
[2024-06-09] MEDS: ondansetron 2 mg/ML SDV 2 mL 4 MG IVP (10:29)
[2024-06-09] MEDS: fentaNYL 50 mcg/mL INJ 2mL 25 MCG IVP (10:35)
[2024-06-09 10:37] LABS: Troponin 5 6HR 23.62 ng/L (0-10); Troponin 5 6HR Delta 1.62 ng/L (0-12)
--- NOTE | 2024-06-09 12:12 | PC.NURSE ---
patient taken to MRI at 1200
== END 2024-06-09 14:55 | disposition home or self-care (01) ==
PROVIDERS: Emergency Medicine; Emergency Provider Emergency Medicine; PCP Family Medicine
DX: R07.9 Chest pain, unspecified (principal); R10.9 Unspecified abdominal pain; Z79.4 Long term (current) use of insulin; I25.10 Atherosclerotic heart disease of native coronary artery without angina pectoris; E78.5 Hyperlipidemia, unspecified; I10 Essential (primary) hypertension
CPT/HCPCS: 36415; 71045; 74174; 74181; 80053; 83690; 83735; 84484; 85025; 93005; 96374; 96375; 99285; J2405; J3010

== ENCOUNTER 2024-06-13 01:36 | Emergency (ER) | payer MEDICARE, OTHER, SELFPAY ==
[2024-06-13 01:39] VITALS: BP 179/57; PULSE 96; RESP 18; TEMP 36.7; O2SAT 97; BMI 37.3
--- NOTE | 2024-06-13 01:41 | XRR_ITS ---
PROCEDURE INFORMATION: Exam: XR Left Knee Exam date and time: 06/13/2024 1:55 AM Age: 79 years old Clinical indication: Pain; Knee; Left; Additional info: Knee pain TECHNIQUE: Imaging protocol: Radiologic exam of the left knee. Views: 3 views. COMPARISON: CR XR knee LT 3V* [id number] 06/01/2024 4:31 PM FINDINGS: Bones/joints: The knee is intact without fracture or dislocation. There is tricompartmental joint space narrowing with mild marginal osteophyte formation. Soft tissues: Normal. Vasculature: Vascular calcification present. XR/XR knee LT 3V* [id number] IMPRESSION: No acute bony abnormality. Degenerative changes.
[2024-06-13 01:42] VITALS: BP 179/57; PULSE 96; RESP 18; O2SAT 97
--- NOTE | 2024-06-13 01:50 | W.ED.EXTPRO ---
HPI - Extremity Problem General: Chief complaint: Extremity Injury, Lower Stated complaint: L knee pain Time Seen by Provider: 06/13/24 01:37 History of Present Illness: 79-year-old female who presents emergency room with left knee pain. She says she has chronic knee pain and has seen her primary who says she has arthritis. Says tonight she was stepping up after she went outside and heard it worse. No obvious deformities. No actual trauma. Related Data Home Medications Medication Instructions Recorded Confirmed cholecalciferol (vitamin D3) 25 1,000 unit PO QPM 06/01/19 06/09/24 mcg (1,000 unit) capsule cranberry 500 mg capsule 500 mg PO QPM 06/01/19 06/09/24 ferrous sulfate 325 mg (65 mg 325 mg PO DAILY@12 06/21/19 06/09/24 iron) tablet magnesium oxide 400 mg (241.3 mg 500 mg PO DAILY@12 02/14/21 06/09/24 magnesium) tablet ascorbic acid (vitamin C) 500 mg 500 mg PO QNOON 11/14/21 06/09/24 chewable tablet (Vitamin C) vitamin E 670 mg (1,000 unit) 1,000 unit PO QAM 11/14/21 06/09/24 capsule esomeprazole magnesium 40 mg 40 mg PO QAM 05/19/22 06/09/24 capsule,delayed release potassium chloride 8 mEq 24 meq PO QAM 05/19/22 06/09/24 capsule,extended release lactulose 10 gram/15 mL oral 15 ml PO DAILY PRN Constipation 06/23/23 06/09/24 solution melatonin 3 mg capsule 3 mg PO BEDTIME 11/18/23 06/09/24 amlodipine 10 mg tablet 10 mg PO DAILY 06/09/24 06/09/24 hydrocortisone 10 mg tablet 10 mg PO QID 06/09/24 06/09/24 insulin degludec 200 unit/mL (3 32 unit SUBCUT BID 06/09/24 06/09/24 mL) subcutaneous pen (Tresiba FlexTouch U-200 insulin) insulin lispro 100 unit/mL 28 unit SUBCUT TID 06/09/24 06/09/24 subcutaneous pen (Humalog KwikPen (U-100) Insulin) mupirocin 2 % topical ointment 1 applic topical TID PRN Skin 06/09/24 06/09/24 Irritation torsemide 20 mg tablet 20 mg PO BID 06/09/24 06/09/24 valsartan 320 mg tablet 320 mg PO QPM 06/09/24 06/09/24 Previous Rx's Medication Instructions Recorded blood sugar diagnostic #400 ea 09/02/21 lancets 21 gauge (Comfort EZ #400 ea 09/02/21 Lancets) blood sugar diagnostic (Easymax 15 #400 ea 09/11/21 test strips) flash glucose scanning reader #1 ea 02/17/22 (FreeStyle Tor 2 [place]) flash glucose sensor (FreeStyle #3 ea 02/17/22 Tor 2 Sensor kit) nitroglycerin 0.4 mg sublingual 0.4 mg sublingual Q5M PRN chest 08/04/23 tablet pain 30 days #30 tabs aripiprazole 2 mg tablet 2 mg PO BEDTIME #30 tabs 08/12/23 fluticasone furoate 100 1 inh inhalation DAILY #60 ea 09/20/23 mcg-vilanterol 25 mcg/dose inhalation powder (Breo Ellipta) isosorbide mononitrate 120 mg 120 mg PO DAILY@12 #90 tabs 09/20/23 tablet,extended release 24 hr pen needle, diabetic 31 gauge x #400 ea 05/02/24 3/16 (BD Ultra-Fine Mini Pen Needle) hydrocodone 10 mg-acetaminophen 1 tab PO Q4H PRN pain 7 days #42 06/12/24 325 mg tablet tabs Allergies Allergy/AdvReac Type Severity Reaction Status Date / Time morphine Allergy Severe RESPIRATORY Verified 06/13/24 01:43 DISTRESS doxycycline Allergy Mild THROAT Verified 06/13/24 01:43 SWELLING duloxetine [From Cymbalta] Allergy Mild SWELLING, Verified 06/13/24 01:43 VOMITING metformin Allergy Mild THROAT Verified 06/13/24 01:43 SWELLING oxybutynin [From Oxytrol] Allergy Mild ALGY-Rash Verified 06/13/24 01:43 Penicillins Allergy Mild ALGY-Rash Verified 06/13/24 01:43 Sulfa (Sulfonamide Allergy Mild STOMACH Verified 06/13/24 01:43 Antibiotics) CRAMPS alprazolam [From Xanax] Allergy Unknown Unknown Verified 06/13/24 01:43 amitriptyline Allergy Unknown Unknown Verified 06/13/24 01:43 Barbiturates Allergy Unknown stomach Verified 06/13/24 01:43 cramps cefuroxime [From Ceftin] Allergy Unknown stomach Verified 06/13/24 01:43 cramps insulin detemir Allergy Unknown Unknown Verified 06/13/24 01:43 [From Levemir U-100 Insulin] levofloxacin [From Levaquin] Allergy Unknown Unknown Verified 06/13/24 01:43 liraglutide [From Victoza] Allergy Unknown Unknown Verified 06/13/24 01:43 metoclopramide [From Reglan] Allergy Unknown Unknown Verified 06/13/24 01:43 nitrofurantoin Allergy Unknown Unknown Verified 06/13/24 01:43 [From Macrobid] pregabalin [From Lyrica] Allergy Unknown Unknown Verified 06/13/24 01:43 divalproex sodium Allergy ALGY-Hives Verified 06/13/24 01:43 [From Depakote] gabapentin Allergy bone, Verified 06/13/24 01:43 muscle pain and mood swings venlafaxine Allergy Unknown Verified 06/13/24 01:43 meloxicam AdvReac Severe ADR-Vomitin Verified 06/13/24 01:43 g ciprofloxacin [From Cipro] AdvReac Mild stomach Verified 06/13/24 01:43 upset hydromorphone [From Dilaudid] AdvReac Unknown PT STATES Verified 06/13/24 01:43 IT MAKES ME CRAZY Review of Systems Narrative: Constitutional symptoms: Negative except as documented in HPI. Skin symptoms: Negative except as documented in HPI. Eye symptoms: Negative except as documented in HPI. ENMT symptoms: Negative except as documented in HPI. Respiratory symptoms: Negative except as documented in HPI. Cardiovascular symptoms: Negative except as documented in HPI. Gastrointestinal symptoms: Negative except as documented in HPI. Genitourinary symptoms: Negative except as documented in HPI. Musculoskeletal symptoms: Negative except as documented in HPI. Neurologic symptoms: Negative except as documented in HPI. Psychiatric symptoms: Negative except as documented in HPI. Endocrine symptoms: Negative except as documented in HPI. PFSH ED PFSH: Medical History C. 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 Left axis deviation. Normal ME and QRS duration. Dyslipidemia (high LDL; low HDL) Benign essential hypertension with target blood pressure below 140/90 Atherosclerotic heart disease of [place] coronary artery without angina pectoris Status post left heart catheterization Recurrent UTI Gross hematuria Bipolar II disorder Surgical History Hx of bilateral hip replacements Hx of bladder repair surgery History of colonoscopy (~2018) History of coronary artery stent placement History of right knee surgery S/P appendectomy S/P hysterectomy S/P hernia repair S/P hip replacement Family History Family/Other Diabetes Other Cancer Social History Smoking and tobacco/nicotine status: tobacco/nicotine user, details unknown Alcohol intake: never Substance/Drug Use: never Household members: spouse Marital status: Current occupational status: retired Physical Exam Narrative: EXAM NARRATIVE: General: Alert, no acute distress. Skin: warm and dry Head: Normocephalic Neck: Trachea midline Eye: Extraocular movements are intact. Ears, nose, mouth and throat: Oral mucosa moist Respiratory: Respirations are non-labored Musculoskeletal: Normal ROM Neurological: Alert and oriented, No focal neurological deficit observed. Psychiatric: Cooperative, appropriate mood & affect. Course Vital Signs: Vital signs: Vital Signs Temperature 98.0 F 06/13/24 01:39 Pulse Rate 96 06/13/24 01:42 Respiratory Rate 18 06/13/24 01:42 Blood Pressure 179/57 06/13/24 01:42 Pulse Oximetry 97 06/13/24 01:42 Oxygen Delivery Me thod Room Air 06/13/24 01:39 MDM - Extremity (Nontraumatic) Medical Decision Making X-ray of the right knee: Degenerative changes. No acute bony abnormalities. This was reviewed and interpreted by myself the emergency room physician. I also reviewed the radiology report. Patient has chronic pain syndrome and is on chronic hydrocodone therapy at home. Assessment and plan: Knee pain. - Discharged home - Discussed plan with patient. Answered any questions. - Evaluation and treatment of this problem were appropriate in the emergency setting. Lab Data Radiology Impressions Knee X-Ray 06/13/24 01:41 IMPRESSION: No acute bony abnormality. Degenerative changes. All radiology interpretation(s) finalized by discharge Discharge Plan Discharge Patient Disposition: Home Clinical Impression: Degenerative arthritis of knee Condition: Stable Prescriptions: No Action cholecalciferol (vitamin D3) 1,000 unit capsule 1,000 unit PO QPM cranberry 500 mg capsule 500 mg PO QPM ferrous sulfate 325 mg (65 mg iron) tablet 325 mg PO DAILY@12 magnesium oxide 400 mg (241.3 mg magnesium) tablet 500 mg PO DAILY@12 aripiprazole 2 mg tablet 2 mg PO BEDTIME Qty: 30 11RF (DME) pen needle, diabetic [BD Ultra-Fine Mini Pen Needle] 31 gauge x 3/16 needle See Rx Instructions .ROUTE .COMPLEX Qty: 400 0RF Dose Instruction: USE WITH INSULIN FOUR TIMES DAILY Rx Instructions: USE WITH INSULIN FOUR TIMES DAILY potassium chloride 8 mEq capsule, extended release 24 meq PO QAM (DME) FreeStyle Tor 2 Sensor Kit See Rx Instructions .MEDSUPPLY Qty: 3 3RF Rx Instructions: As directed (DME) FreeStyle Tor 2 [place] Misc See Rx Instructions .Route Qty: 1 0RF Rx Instructions: As directed esomeprazole magnesium 40 mg capsule,delayed release(DR/EC) 40 mg PO QAM melatonin 3 mg capsule 3 mg PO BEDTIME (DME) blood sugar diagnostic Strip See Rx Instructions .Route Qty: 400 3RF Rx Instructions: Check blood sugar 4 times a day. (DME) lancets [Comfort EZ Lancets] 21 gauge misc See Rx Instructions .Route Qty: 400 3RF Rx Instructions: As directed (DME) Easymax 15 test strips Strip See Rx Instructions .Route Qty: 400 3RF Rx Instructions: Check BS 4 times a day. nitroglycerin 0.4 mg tablet, sublingual 0.4 mg sublingual Q5M PRN (Reason: chest pain) 30 Days Qty: 30 3RF Rx Instructions: until response; do not exceed 3 doses per episode fluticasone furoate-vilanterol [Breo Ellipta] 100-25 mcg/dose blister with device 1 inh inhalation DAILY Qty: 60 6RF isosorbide mononitrate 120 mg tablet extended release 24 hr 120 mg PO DAILY@12 Qty: 90 3RF hydrocodone-acetaminophen 10-325 mg tablet 1 tab PO Q4H MDD 6 PRN (Reason: pain) 7 Days Qty: 42 0RF vitamin E 1,000 unit Capsule 1,000 unit PO QAM ascorbic acid (vitamin C) [Vitamin C] 500 mg Tablet,Chewable 500 mg PO QNOON lactulose 10 gram/15 mL solution 15 ml PO DAILY PRN (Reason: Constipation) torsemide 20 mg tablet 20 mg PO BID amlodipine 10 mg tablet 10 mg PO DAILY valsartan 320 mg tablet 320 mg PO QPM mupirocin 2 % ointment 1 applic TOPICAL TID PRN (Reason: Skin Irritation) hydrocortisone 10 mg tablet 10 mg PO QID insulin lispro [Humalog KwikPen Insulin] 100 unit/mL insulin pen 28 unit SUBCUT TID Rx Instructions: after meals, based on sliding scale provided insulin degludec [Tresiba FlexTouch U-200] 200 unit/mL (3 mL) insulin pen 32 unit SUBCUT BID Discharge Orders: Discharge ED (Routine); Ordered 06/13/24 Ordered By: Suzy Juarez Referrals: Arabella Orta MD [Primary Care Provider] - Discharge Diet: Usual diet Discharge Activity: Increase activity as tolerated Patient Instructions: Opioid Safety, Pain Management Activity Restrictions/Additional Instructions: Thank you for choosing [facility] for your healthcare needs today. Please realize this is an emergency room and that we are providing you with a medical screening exam and this may not be complete and all inclusive of all the testing and or work up that you may need to determine your ailment or severity of your illness. You have been screened and evaluated and felt safe for discharge. Health conditions do change or evolve sometimes and as such it is important that you follow up with your Primary Doctor to be re checked, 3-5 days is a general good time frame for follow up. 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
[2024-06-13 02:44] VITALS: BP 138/48; PULSE 92; O2SAT 95
== END 2024-06-13 02:55 | disposition home or self-care (01) ==
PROVIDERS: Emergency Provider Emergency Medicine; PCP Family Medicine
DX: M17.12 Unilateral primary osteoarthritis, left knee (principal); Z79.4 Long term (current) use of insulin; E78.5 Hyperlipidemia, unspecified; I25.10 Atherosclerotic heart disease of native coronary artery without angina pectoris; I10 Essential (primary) hypertension
CPT/HCPCS: 73562; 99283

== ENCOUNTER → 2024-06-21 11:00 | Outpatient (BNVA) | payer MEDICARE, OTHER, SELFPAY | PROVIDERS: PCP Family Medicine; Visit Provider Specialist | DX: M17.12 Unilateral primary osteoarthritis, left knee | CPT/HCPCS: 20610; 73560; 73565; 99214 ==

== ENCOUNTER 2024-06-24 06:30 | Outpatient (CLI) | payer MEDICARE, OTHER, SELFPAY | END 2024-06-24 06:31 | LOC: SPT 07-03 14:32 | PROVIDERS: Visit Provider Nurse Practitioner | DX: Z46.89 Encounter for fitting and adjustment of other specified devices (principal); S82.002S Unspecified fracture of left patella, sequela; X58.XXXS Exposure to other specified factors, sequela | CPT/HCPCS: 27520; 99214; L1832 ==

== ENCOUNTER 2024-06-26 16:53 | Outpatient (CLI) | payer MEDICARE, OTHER, SELFPAY ==
[2024-06-26 17:17] LABS: Bilirubin Urine Negative (Negative); Blood Urine 1+ (Negative); Glucose Urine UA Negative (Normal); Ketones Urine Negative (Negative); Leukocyte Esterase Urine 3+ (Negative); Nitrate Urine Negative (Negative); Protein Urine 1+ (Negative); Specific Gravity, Urine 1.017 (1.005-1.030); Urine Appearance Turbid (CLEAR); Urine Color Yellow (Yellow)
[2024-06-26 17:22] LABS: Add Urine Microscopic? YES; Bacteria Urine 4+ /hpf; Hyaline Casts Urine 33.08 /lpf; WBC Urine >100 /hpf (0-5)
[2024-06-26 17:44] LABS: UA Slide Review UA Slide Review Perf
[2024-06-26 17:45] LABS: Add Urine Culture? Yes
== END 2024-06-26 16:54 | disposition home or self-care (01) ==
PROVIDERS: PCP Family Medicine; Visit Provider Family Medicine
DX: R30.0 Dysuria (principal)
CPT/HCPCS: 81001; 87086

== ENCOUNTER 2024-06-27 23:54 | Emergency (ER) | payer MEDICARE, OTHER, SELFPAY ==
[2024-06-27 23:55] VITALS: BP 176/58; PULSE 111; RESP 20; TEMP 36.7; O2SAT 97; BMI 38.0
--- NOTE | 2024-06-27 23:58 | XRR_ITS ---
PROCEDURE INFORMATION: Exam: XR Left Knee Exam date and time: 06/28/2024 12:11 AM Age: 79 years old Clinical indication: Pain; Knee; Left; Additional info: Fall pain TECHNIQUE: Imaging protocol: Radiologic exam of the left knee. Views: 3 views. COMPARISON: CR XR knees AP WB w LT lmt ORTH 06/21/2024 11:04 AM FINDINGS: Bones/joints: Redemonstrated nondisplaced fracture along the superior patella. No new fracture. Similar mild tricompartmental degenerative changes. No joint effusion. Soft tissues: Normal. XR/XR knee LT 3V* [id number] IMPRESSION: 1. Similar nondisplaced superior patellar fracture. 2. No new acute osseous findings.
[2024-06-28 00:05] VITALS: BP 145/53; PULSE 91; O2SAT 94
--- NOTE | 2024-06-28 00:06 | W.ED.EXTPRO ---
HPI - Extremity Problem General: Chief complaint: Extremity Injury, Lower Stated complaint: L knee pain Time Seen by Provider: 06/27/24 23:58 History of Present Illness: Patient presents to the ER with complaints of left knee pain. She states she fell about 5 days ago and has had worsening knee pain ever since to the point she is unable to bear weight on it now. She states she think she broke something. She did see Dr. Kyle the day before the fall and have a shot put in her knee. Patient has taken the hydrocodone she had at home and she said did nothing for this pain. Patient denies hitting her head or losing consciousness. Related Data Home Medications ?Medication ?Instructions ?Recorded ?Confirmed cholecalciferol (vitamin D3) 25 1,000 unit PO QPM 06/01/19 06/21/24 mcg (1,000 unit) capsule cranberry 500 mg capsule 500 mg PO QPM 06/01/19 06/21/24 ferrous sulfate 325 mg (65 mg 325 mg PO DAILY@12 06/21/19 06/21/24 iron) tablet magnesium oxide 400 mg (241.3 mg 500 mg PO DAILY@02/14/21 06/21/24 magnesium) tablet ascorbic acid (vitamin C) 500 mg 500 mg PO QNOON 11/14/21 06/21/24 chewable tablet (Vitamin C) vitamin E 670 mg (1,000 unit) 1,000 unit PO QAM 11/14/21 06/21/24 capsule esomeprazole magnesium 40 mg 40 mg PO QAM 05/19/22 06/21/24 capsule,delayed release potassium chloride 8 mEq 24 meq PO QAM 05/19/22 06/21/24 capsule,extended release lactulose 10 gram/15 mL oral 15 ml PO DAILY PRN Constipation 06/23/23 06/21/24 solution melatonin 3 mg capsule 3 mg PO BEDTIME 11/18/23 06/21/24 amlodipine 10 mg tablet 10 mg PO DAILY 06/09/24 06/21/24 hydrocortisone 10 mg tablet 10 mg PO QID 06/09/24 06/21/24 insulin degludec 200 unit/mL (3 32 unit SUBCUT BID 06/09/24 06/21/24 mL) subcutaneous pen (Tresiba FlexTouch U-200 insulin) insulin lispro 100 unit/mL 28 unit SUBCUT TID 06/09/24 06/21/24 subcutaneous pen (Humalog KwikPen (U-100) Insulin) mupirocin 2 % topical ointment 1 applic topical TID PRN Skin 06/09/24 06/21/24 Irritation torsemide 20 mg tablet 20 mg PO BID 06/09/24 06/21/24 valsartan 320 mg tablet 320 mg PO QPM 06/09/24 06/21/24 Previous Rx's ?Medication ?Instructions ?Recorded blood sugar diagnostic #400 ea 09/02/21 lancets 21 gauge (Comfort EZ #400 ea 09/02/21 Lancets) blood sugar diagnostic (Easymax 15 #400 ea 09/11/21 test strips) flash glucose scanning reader #1 ea 02/17/22 (FreeStyle Tor 2 [place]) flash glucose sensor (FreeStyle #3 ea 02/17/22 Tor 2 Sensor kit) nitroglycerin 0.4 mg sublingual 0.4 mg sublingual Q5M PRN chest 08/04/23 tablet pain 30 days #30 tabs aripiprazole 2 mg tablet 2 mg PO BEDTIME #30 tabs 08/12/23 fluticasone furoate 100 1 inh inhalation DAILY #60 ea 09/20/23 mcg-vilanterol 25 mcg/dose inhalation powder (Breo Ellipta) isosorbide mononitrate 120 mg 120 mg PO DAILY@12 #90 tabs 09/20/23 tablet,extended release 24 hr pen needle, diabetic 31 gauge x #400 ea 05/02/24 3/16 (BD Ultra-Fine Mini Pen Needle) hydrocodone 10 mg-acetaminophen 1 tab PO Q4H PRN pain 7 days #42 06/21/24 325 mg tablet tabs oxycodone-acetaminophen 5 mg-325 1 tab PO Q8H PRN pain #14 tabs 06/28/24 mg tablet (Percocet) Allergies Allergy/AdvReac Type Severity Reaction Status Date / Time morphine Allergy Severe RESPIRATORY Verified 06/28/24 00:05 DISTRESS doxycycline Allergy Mild THROAT Verified 06/28/24 00:05 SWELLING duloxetine (From Cymbalta) Allergy Mild SWELLING, Verified 06/28/24 00:05 VOMITING metformin Allergy Mild THROAT Verified 06/28/24 00:05 SWELLING oxybutynin (From Oxytrol) Allergy Mild ALGY-Rash Verified 06/28/24 00:05 Penicillins Allergy Mild ALGY-Rash Verified 06/28/24 00:05 Sulfa (Sulfonamide Allergy Mild STOMACH Verified 06/28/24 00:05 Antibiotics) CRAMPS alprazolam (From Xanax) Allergy Unknown Unknown Verified 06/28/24 00:05 amitriptyline Allergy Unknown Unknown Verified 06/28/24 00:05 Barbiturates Allergy Unknown stomach Verified 06/28/24 00:05 cramps cefuroxime (From Ceftin) Allergy Unknown stomach Verified 06/28/24 00:05 cramps insulin detemir (From Allergy Unknown Unknown Verified 06/28/24 00:05 Levemir U-100 Insulin) levofloxacin (From Levaquin) Allergy Unknown Unknown Verified 06/28/24 00:05 liraglutide (From Victoza) Allergy Unknown Unknown Verified 06/28/24 00:05 metoclopramide (From Reglan) Allergy Unknown Unknown Verified 06/28/24 00:05 nitrofurantoin (From Allergy Unknown Unknown Verified 06/28/24 00:05 Macrobid) pregabalin (From Lyrica) Allergy Unknown Unknown Verified 06/28/24 00:05 divalproex sodium (From Allergy ALGY-Hives Verified 06/28/24 00:05 Depakote) gabapentin Allergy bone, Verified 06/28/24 00:05 muscle pain and mood swings venlafaxine Allergy Unknown Verified 06/28/24 00:05 meloxicam AdvReac Severe ADR-Vomitin Verified 06/28/24 00:05 g ciprofloxacin (From Cipro) AdvReac Mild stomach Verified 06/28/24 00:05 upset hydromorphone (From Dilaudid) AdvReac Unknown PT STATES Verified 06/28/24 00:05 IT MAKES ME CRAZY Review of Systems General: Reports: 10 or more systems reviewed and unremarkable except in HPI and below PFSH ED PFSH: Medical History C. 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 Left axis deviation. Normal IA and QRS duration. Dyslipidemia (high LDL; low HDL) Benign essential hypertension with target blood pressure below 140/90 Atherosclerotic heart disease of [place] coronary artery without angina pectoris Status post left heart catheterization Recurrent UTI Gross hematuria Bipolar II disorder Surgical History Hx of bilateral hip replacements Hx of bladder repair surgery History of colonoscopy (~2018) History of coronary artery stent placement History of right knee surgery S/P appendectomy S/P hysterectomy S/P hernia repair S/P hip replacement Family History Family/Other Diabetes Other Cancer Social History Smoking and tobacco/nicotine status: unknown if used tobacco/nicotine Alcohol intake: never Substance/Drug Use: never Household members: spouse Marital status: Current occupational status: retired Physical Exam Const: COMMON NORMALS: no acute distress, average body habitus, patient oriented x3, no limitations, healthy appearing, alert and well nourished HENMT: COMMON NORMALS: normocephalic, atraumatic, hearing grossly normal bilaterally, external ears normal and Normal external nose present HEAD & SCALP: normocephalic and atraumatic NOSE: Normal external nose present EXTERNAL EAR: Yes external ears normal Neck/C-Spine: COMMON NORMALS: no JVD Chest: COMMONS NORMALS: normal inspection of the chest and normal palpation of entire chest wall Resp: COMMON NORMALS: normal respiratory effort, No retractions, No use of accessory muscles and clear to auscultation bilaterally AUSCULTATION: clear to auscultation bilaterally Cardio: COMMON NORMALS: no JVD, regular rhythm, S1 normal heart sound present, S2 normal heart sound present, No gallops present (Cardio), No clicks present (Cardio) and No murmurs present (Cardio); negative for regular rate (Mildly tachycardic) RATE: abnormal rate (Mildly tachycardic) RHYTHM: regular rhythm HEART SOUNDS: S1 normal heart sound present and S2 normal heart sound present GI: COMMON NORMALS: Normal to inspection, nondistended, normoactive bowel sounds present, Soft to palpation, non-tender, No hepatosplenomegaly present and no masses PALPATION: Yes Soft to palpation and Yes No hepatosplenomegaly present Extremity: NARRATIVE EXTREMITY EXAM: Painful to palpate the anterior part of the knee. No obvious crepitus deformity. Neuro: COMMON NORMALS: patient oriented x3 SENSORIUM/ORIENTATION: Yes alert Course Vital Signs: Vital signs: Vital Signs Temperature 98.0 F 06/27/24 23:55 Pulse Rate 91 06/28/24 00:05 Respiratory Rate 20 H 06/27/24 23:55 Blood Pressure 114/70 06/28/24 01:04 Pulse Oximetry 65 L 06/28/24 01:04 Oxygen Delivery Me thod Room Air 06/27/24 23:55 MDM - Extremity (Nontraumatic) Medical Decision Making X-ray showed similar nondisplaced superior patella fracture compared to 06/21/2023, patient was given a Percocet 09/23/2024 which appeared to help her pain. Patient will be put in knee immobilizer be given a prescription of Percocet and been told to follow-up with Dr. Kyle for further evaluation treatment. She is saw Dr. Kyle before. Medical Records I reviewed the patient's medical records. Lab Data I reviewed the patient's lab results. Radiology Impressions Knee X-Ray 06/27/24 23:58 IMPRESSION: 1. Similar nondisplaced superior patellar fracture. 2. No new acute osseous findings. All radiology interpretation(s) finalized by discharge Discharge Plan Discharge Patient Disposition: Home Clinical Impression: Closed fracture of right patella Condition: Stable Prescriptions: New oxycodone-acetaminophen [Percocet] 5-325 mg tablet 1 tab PO Q8H PRN (Reason: pain) Qty: 14 0RF No Action cholecalciferol (vitamin D3) 1,000 unit capsule 1,000 unit PO QPM cranberry 500 mg capsule 500 mg PO QPM ferrous sulfate 325 mg (65 mg iron) tablet 325 mg PO DAILY@12 magnesium oxide 400 mg (241.3 mg magnesium) tablet 500 mg PO DAILY@12 aripiprazole 2 mg tablet 2 mg PO BEDTIME Qty: 30 11RF (DME) pen needle, diabetic [BD Ultra-Fine Mini Pen Needle] 31 gauge x 3/16 needle See Rx Instructions .ROUTE .COMPLEX Qty: 400 0RF Dose Instruction: USE WITH INSULIN FOUR TIMES DAILY Rx Instructions: USE WITH INSULIN FOUR TIMES DAILY potassium chloride 8 mEq capsule, extended release 24 meq PO QAM (DME) FreeStyle Tor 2 Sensor Kit See Rx Instructions .MEDSUPPLY Qty: 3 3RF Rx Instructions: As directed (DME) FreeStyle Tor 2 [place] Misc See Rx Instructions .Route Qty: 1 0RF Rx Instructions: As directed esomeprazole magnesium 40 mg capsule,delayed release(DR/EC) 40 mg PO QAM melatonin 3 mg capsule 3 mg PO BEDTIME (DME) blood sugar diagnostic Strip See Rx Instructions .Route Qty: 400 3RF Rx Instructions: Check blood sugar 4 times a day. (DME) lancets [Comfort EZ Lancets] 21 gauge misc See Rx Instructions .Route Qty: 400 3RF Rx Instructions: As directed (DME) Easymax 15 test strips Strip See Rx Instructions .Route Qty: 400 3RF Rx Instructions: Check BS 4 times a day. nitroglycerin 0.4 mg tablet, sublingual 0.4 mg sublingual Q5M PRN (Reason: chest pain) 30 Days Qty: 30 3RF Rx Instructions: until response; do not exceed 3 doses per episode fluticasone furoate-vilanterol [Breo Ellipta] 100-25 mcg/dose blister with device 1 inh inhalation DAILY Qty: 60 6RF isosorbide mononitrate 120 mg tablet extended release 24 hr 120 mg PO DAILY@12 Qty: 90 3RF hydrocodone-acetaminophen 10-325 mg tablet 1 tab PO Q4H MDD 6 PRN (Reason: pain) 7 Days Qty: 42 0RF vitamin E 1,000 unit Capsule 1,000 unit PO QAM ascorbic acid (vitamin C) [Vitamin C] 500 mg Tablet,Chewable 500 mg PO QNOON lactulose 10 gram/15 mL solution 15 ml PO DAILY PRN (Reason: Constipation) torsemide 20 mg tablet 20 mg PO BID amlodipine 10 mg tablet 10 mg PO DAILY valsartan 320 mg tablet 320 mg PO QPM mupirocin 2 % ointment 1 applic TOPICAL TID PRN (Reason: Skin Irritation) hydrocortisone 10 mg tablet 10 mg PO QID insulin lispro [Humalog KwikPen Insulin] 100 unit/mL insulin pen 28 unit SUBCUT TID Rx Instructions: after meals, based on sliding scale provided insulin degludec [Tresiba FlexTouch U-200] 200 unit/mL (3 mL) insulin pen 32 unit SUBCUT BID Discharge Orders: Discharge ED (Routine); Ordered 06/28/24 Ordered By: Cristobal Monroe Referrals: Arabella Orta MD [Primary Care Provider] - 1 week Patient Instructions: Opioid Safety, Pain Management, Patellar Fracture (ED) Activity Restrictions/Additional Instructions: Per the radiologist reading of your x-ray he appeared to have a fracture of your kneecap. He also had this on June 21 for the previous x-ray. Please wear your knee immobilizer as directed please take your pain medicine as directed. Please call Dr. Kyle's office to arrange follow-up for definitive evaluation and treatment. Print Language: Malay Coding Level of Care Code ED Gr[employer] Prep [employer] for [employer]
[2024-06-28] MEDS: oxyCODONE-APAP 5-325 mg Tablet 1 TAB PO (00:16)
[2024-06-28 01:04] VITALS: BP 114/70; O2SAT 65
[2024-06-28 03:00] VITALS: BP 177/69; PULSE 93; O2SAT 96
[2024-06-28 03:49] VITALS: BP 177/69; PULSE 93; O2SAT 96
== END 2024-06-28 03:51 | disposition home or self-care (01) ==
PROVIDERS: Emergency Provider Emergency Medicine; PCP Family Medicine
DX: S82.001A Unspecified fracture of right patella, initial encounter for closed fracture (principal); Z79.4 Long term (current) use of insulin; E78.5 Hyperlipidemia, unspecified; I10 Essential (primary) hypertension; W19.XXXA Unspecified fall, initial encounter
CPT/HCPCS: 29530; 73562; 99283

== ENCOUNTER → 2024-06-30 09:27 | Outpatient (BNVA) | payer MEDICARE, OTHER, SELFPAY | PROVIDERS: PCP Family Medicine; Visit Provider Nurse Practitioner | DX: S82.034D Nondisplaced transverse fracture of right patella, subsequent encounter for closed fracture with routine healing (principal); S82.035D Nondisplaced transverse fracture of left patella, subsequent encounter for closed fracture with routine healing; X58.XXXD Exposure to other specified factors, subsequent encounter | CPT/HCPCS: 73562 ==

== ENCOUNTER → 2024-07-07 09:28 | Outpatient (BNVA) | payer MEDICARE, OTHER, SELFPAY | PROVIDERS: PCP Family Medicine; Visit Provider Nurse Practitioner | DX: S82.035D Nondisplaced transverse fracture of left patella, subsequent encounter for closed fracture with routine healing (principal); X58.XXXD Exposure to other specified factors, subsequent encounter | CPT/HCPCS: 73560; 73565 ==

== ENCOUNTER 2024-07-11 15:14 | Outpatient (CLI) | payer MEDICARE, OTHER, SELFPAY ==
[2024-07-11 15:25] LABS: Add Urine Microscopic? NO
[2024-07-11 15:30] LABS: Bilirubin Urine Negative (Negative); Blood Urine Negative (Negative); Glucose Urine UA 2+ (Normal); Ketones Urine Negative (Negative); Leukocyte Esterase Urine Negative (Negative); Nitrate Urine Negative (Negative); Protein Urine Negative (Negative); Specific Gravity, Urine 1.009 (1.005-1.030); Urine Appearance Clear (CLEAR); Urine Color Yellow (Yellow); Urobilinogen Urine 0.2 mg/dL (Negative); pH Urine 7.5 (5-7)
[2024-07-11 15:39] LABS: Charge for UA Resulting for Rev
== END 2024-07-11 15:15 | disposition home or self-care (01) ==
PROVIDERS: PCP Family Medicine; Visit Provider Family Medicine
DX: R30.0 Dysuria (principal)
CPT/HCPCS: 81003

== ENCOUNTER → 2024-08-08 14:50 | Outpatient (BNVA) | payer MEDICARE, OTHER, SELFPAY | PROVIDERS: PCP Family Medicine; Visit Provider Orthopaedic Surgery | DX: M48.062 Spinal stenosis, lumbar region with neurogenic claudication (principal); M54.9 Dorsalgia, unspecified | CPT/HCPCS: 72110; 99213 ==

== ENCOUNTER → 2024-08-09 13:05 | Outpatient (BNVA) | payer MEDICARE, OTHER, SELFPAY | PROVIDERS: PCP Family Medicine; Visit Provider Nurse Practitioner | DX: S82.035D Nondisplaced transverse fracture of left patella, subsequent encounter for closed fracture with routine healing (principal); M17.0 Bilateral primary osteoarthritis of knee; X58.XXXD Exposure to other specified factors, subsequent encounter | CPT/HCPCS: 73562 ==

== ENCOUNTER 2024-08-09 15:26 | Outpatient (CLI) | payer MEDICARE, OTHER, SELFPAY | END 2024-08-09 15:27 | disposition home or self-care (01) | LOC: SPT 15:26 | PROVIDERS: PCP Family Medicine; Visit Provider Nurse Practitioner | DX: Z46.89 Encounter for fitting and adjustment of other specified devices (principal); S82.002D Unspecified fracture of left patella, subsequent encounter for closed fracture with routine healing; X58.XXXD Exposure to other specified factors, subsequent encounter | CPT/HCPCS: 97760; L1812 ==

== ENCOUNTER 2024-08-15 10:26 | Outpatient (CLI) | payer MEDICARE, OTHER, SELFPAY | END 2024-08-15 10:27 | disposition home or self-care (01) | PROVIDERS: PCP Family Medicine; Visit Provider Family Medicine | DX: R30.0 Dysuria (principal) | CPT/HCPCS: 87086 ==

== ENCOUNTER 2024-08-17 11:35 | Inpatient (IN) | payer MEDICARE, OTHER, SELFPAY ==
[2024-08-17] VITALS (7 sets, daily range): BP systolic 148–161; BP diastolic 60–79; PULSE 88–102; RESP 16; TEMP 36.6–36.8; O2SAT 92–94; BMI 41.8
--- NOTE | 2024-08-17 12:19 | XR_ITS ---
WS: [id number] Exam: XR pelvis 1-2V* [id number] Date/Time of Exam: 08/17/2024 12:21 PM Reason For Exam: fall Detail of the pelvis is very limited due to overlying soft tissue. No obvious acute pelvic fracture. Bilateral hip prostheses noted. XR/XR pelvis 1-2V* [id number] IMPRESSION: 1. Very limited exam however no obvious pelvic fracture noted. Recommendation: If there is high clinical suspicion for pelvic fracture then CT might be considered for further work-up.
--- NOTE | 2024-08-17 12:19 | XR_ITS ---
WS: [id number] Exam: XR knee LT 3V* [id number] Date/Time of Exam: 08/17/2024 12:21 PM Reason For Exam: injury Comparison 08/09/2024. Again noted is a transverse fracture through the superior pole of the patella. There has been slight loss and reduction since the previous study. There is effusion in the suprapatellar bursa with associated soft tissue swelling just above the patella. There also may be a healing cortical fracture along the lateral metaphysis of the upper tibia. Mild tricompartmental degenerative change. XR/XR knee LT 3V* [id number] IMPRESSION: 1. Fracture of the superior pole of the patella showing some slight loss of red uction since the prior study. Associated soft tissue swelling and joint effusio n. 2. Periosteal calcification along the lateral margin of the upper metaphysis of the tibia that might represent a healing cortical fracture. This is questionab le.
[2024-08-17 12:21] LABS: Basophils % 0.4 %; Eosinophils # 0.1 10^3/uL (0.0-0.8); Eosinophils % 1.2 %; Hematocrit 42.8 % (36-47); Lymphocytes # 2.4 10^3/uL (0.8-4.8); Lymphocytes % 22.9 %; Mean Corpuscular HGB Conc 32.5 g/dL (30-55); Mean Corpuscular Hemoglobin 29.7 pg (27-33); Mean Corpuscular Volume 91.5 fl (85-98); Mean Platelet Volume 10.6 fL (7.4-10.4); Monocytes # 0.9 10^3/uL (0.2-0.9); Monocytes % 8.3 %; Neutrophils # 6.85 10^3/uL (1.8-7.7); Neutrophils % 66.8 %; Nucleated Red Blood Cells % 0 %; Platelet Count 209 10^3/cmm (157-399); Red Blood Count 4.68 10^6/uL (3.85-5.65); Red Cell Distribution Width 14.7 % (12.1-15.1); White Blood Count 10.25 10^3/uL (3.29-11.43)
--- NOTE | 2024-08-17 12:21 | W.ED.FEMALGU ---
HPI - Female Genitourinary General: Chief complaint: Urogenital-Female Stated complaint: weaknes; UTI Time Seen by Provider: 08/17/24 12:16 Source: patient and EMS Mode of arrival: EMS Limitations: no limitations History of Present Illness: 79-year-old female is well-known to the ER states that she thinks she has UTI states has been having some foul-smelling urine along with hard time urinating and weakness. She had a fall out of her wheelchair yesterday and hurt her left knee denies any other injuries from the fall. She denies any fever denies any abdominal pain. Associated symptoms: Deny abdominal pain, headache(s) or nausea Related Data Home Medications ?Medication ?Instructions ?Recorded ?Confirmed cholecalciferol (vitamin D3) 25 1,000 unit PO QPM 06/01/19 08/09/24 mcg (1,000 unit) capsule cranberry 500 mg capsule 500 mg PO QPM 06/01/19 08/09/24 ferrous sulfate 325 mg (65 mg 325 mg PO DAILY@12 06/21/19 08/09/24 iron) tablet magnesium oxide 400 mg (241.3 mg 500 mg PO DAILY@02/14/21 08/09/24 magnesium) tablet ascorbic acid (vitamin C) 500 mg 500 mg PO QNOON 11/14/21 08/09/24 chewable tablet (Vitamin C) vitamin E 670 mg (1,000 unit) 1,000 unit PO QAM 11/14/21 08/09/24 capsule esomeprazole magnesium 40 mg 40 mg PO QAM 05/19/22 08/09/24 capsule,delayed release potassium chloride 8 mEq 24 meq PO QAM 05/19/22 08/09/24 capsule,extended release lactulose 10 gram/15 mL oral 15 ml PO DAILY PRN Constipation 06/23/23 08/09/24 solution melatonin 3 mg capsule 3 mg PO BEDTIME 11/18/23 08/09/24 amlodipine 10 mg tablet 10 mg PO DAILY 06/09/24 08/09/24 insulin lispro 100 unit/mL 28 unit SUBCUT TID 06/09/24 08/09/24 subcutaneous pen (Humalog KwikPen (U-100) Insulin) mupirocin 2 % topical ointment 1 applic topical TID PRN Skin 06/09/24 08/09/24 Irritation torsemide 20 mg tablet 20 mg PO BID 06/09/24 08/09/24 valsartan 320 mg tablet 320 mg PO QPM 06/09/24 08/09/24 Previous Rx's ?Medication ?Instructions ?Recorded blood sugar diagnostic #400 ea 09/02/21 lancets 21 gauge (Comfort EZ #400 ea 09/02/21 Lancets) blood sugar diagnostic (Easymax 15 #400 ea 09/11/21 test strips) flash glucose scanning reader #1 ea 02/17/22 (FreeStyle Tor 2 Center) flash glucose sensor (FreeStyle #3 ea 02/17/22 Tor 2 Sensor kit) nitroglycerin 0.4 mg sublingual 0.4 mg sublingual Q5M PRN chest 08/04/23 tablet pain 30 days #30 tabs fluticasone furoate 100 1 inh inhalation DAILY #60 ea 09/20/23 mcg-vilanterol 25 mcg/dose inhalation powder (Breo Ellipta) isosorbide mononitrate 120 mg 120 mg PO DAILY@12 #90 tabs 09/20/23 tablet,extended release 24 hr oxycodone-acetaminophen 5 mg-325 1 tab PO Q8H PRN pain #14 tabs 06/28/24 mg tablet (Percocet) dhaval LT knee Brace #1 ea 06/30/24 pen needle, diabetic 31 gauge x #400 ea 07/03/2408/06 (BD Ultra-Fine Mini Pen Needle) hydrocodone 10 mg-acetaminophen 1 tab PO Q6H PRN pain 7 days #28 07/31/24 325 mg tablet tabs aripiprazole 2 mg tablet See Rx Instructions .Route 08/07/24 .COMPLEX #30 tabs hydrocortisone 10 mg tablet See Rx Instructions .Route 08/07/24 .COMPLEX #120 tabs diclofenac sodium 1 % topical gel 4 g topical QID #100 grams 08/09/24 hinged knee brace left #1 ea 08/09/24 insulin degludec 200 unit/mL (3 See Rx Instructions .Route 08/14/24 mL) subcutaneous pen (Tresiba .COMPLEX #9 mL FlexTouch U-200 insulin) Allergies Allergy/AdvReac Type Severity Reaction Status Date / Time morphine Allergy Severe RESPIRATORY Verified 08/09/24 13:12 DISTRESS doxycycline Allergy Mild THROAT Verified 08/09/24 13:12 SWELLING duloxetine (From Cymbalta) Allergy Mild SWELLING, Verified 08/09/24 13:12 VOMITING metformin Allergy Mild THROAT Verified 08/09/24 13:12 SWELLING oxybutynin (From Oxytrol) Allergy Mild ALGY-Rash Verified 08/09/24 13:12 Penicillins Allergy Mild ALGY-Rash Verified 08/09/24 13:12 Sulfa (Sulfonamide Allergy Mild STOMACH Verified 08/09/24 13:12 Antibiotics) CRAMPS alprazolam (From Xanax) Allergy Unknown Unknown Verified 08/09/24 13:12 amitriptyline Allergy Unknown Unknown Verified 08/09/24 13:12 Barbiturates Allergy Unknown stomach Verified 08/09/24 13:12 cramps cefuroxime (From Ceftin) Allergy Unknown stomach Verified 08/09/24 13:12 cramps insulin detemir (From Allergy Unknown Unknown Verified 08/09/24 13:12 Levemir U-100 Insulin) levofloxacin (From Levaquin) Allergy Unknown Unknown Verified 08/09/24 13:12 liraglutide (From Victoza) Allergy Unknown Unknown Verified 08/09/24 13:12 metoclopramide (From Reglan) Allergy Unknown Unknown Verified 08/09/24 13:12 nitrofurantoin (From Allergy Unknown Unknown Verified 08/09/24 13:12 Macrobid) pregabalin (From Lyrica) Allergy Unknown Unknown Verified 08/09/24 13:12 divalproex sodium (From Allergy ALGY-Hives Verified 08/09/24 13:12 Depakote) gabapentin Allergy bone, Verified 08/09/24 13:12 muscle pain and mood swings venlafaxine Allergy Unknown Verified 08/09/24 13:12 meloxicam AdvReac Severe ADR-Vomitin Verified 08/09/24 13:12 g ciprofloxacin (From Cipro) AdvReac Mild stomach Verified 08/09/24 13:12 upset hydromorphone (From Dilaudid) AdvReac Unknown PT STATES Verified 08/09/24 13:12 IT MAKES ME CRAZY Review of Systems Const: Denies: fever(s), chills, body aches or change in appetite ENMT: Denies: throat pain or dental pain Card: Denies: chest pain Resp: Denies: dyspnea GI: Denies: abdominal pain, nausea, vomiting or diarrhea : Reports: difficulty voiding Musc: Reports: extremity pain; Denies: neck pain or back pain Skin/Breast: Denies: rash Neuro: Denies: headache(s) All/Imm: Denies: urticaria PFSH ED PFSH: Medical History C. 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 Left axis deviation. Normal AR and QRS duration. Dyslipidemia (high LDL; low HDL) Benign essential hypertension with target blood pressure below 140/90 Atherosclerotic heart disease of [place] coronary artery without angina pectoris Status post left heart catheterization Recurrent UTI Gross hematuria Bipolar II disorder Surgical History Hx of bilateral hip replacements Hx of bladder repair surgery History of colonoscopy (~2018) History of coronary artery stent placement History of right knee surgery S/P appendectomy S/P hysterectomy S/P hernia repair S/P hip replacement Family History Family/Other Diabetes Other Cancer Social History Smoking and tobacco/nicotine status: never used tobacco/nicotine Alcohol intake: never Substance/Drug Use: never Household members: spouse Marital status: Current occupational status: retired Physical Exam Const: COMMON NORMALS: patient oriented x3 HENMT: COMMON NORMALS: normocephalic and atraumatic HEAD & SCALP: normocephalic and atraumatic Eye: COMMON NORMALS: Equal, round and reactive pupils present and EOMs intact bilaterally PUPIL: Yes Equal, round and reactive pupils present Neck/C-Spine: COMMON NORMALS: full ROM and supple Chest: COMMONS NORMALS: normal inspection of the chest and normal palpation of entire chest wall Resp: COMMON NORMALS: normal respiratory effort, No retractions, No use of accessory muscles and clear to auscultation bilaterally AUSCULTATION: clear to auscultation bilaterally Cardio: COMMON NORMALS: regular rate, regular rhythm and No murmurs present (Cardio) RATE: regular rate RHYTHM: regular rhythm GI: COMMON NORMALS: Normal to inspection, nondistended, normoactive bowel sounds present, Soft to palpation, non-tender and no masses PALPATION: Yes Soft to palpation Extremity: NARRATIVE EXTREMITY EXAM: tenderness to left knee Neuro: COMMON NORMALS: patient oriented x3, moves all extremities and no focal motor deficits Psych: COMMON NORMALS: mental status grossly normal, Normal thought process present and cooperative THOUGHT PROCESS: Normal thought process present Skin: COMMON NORMALS: no rashes or lesions noted and no wounds GENERAL SKIN EXAM: no rashes or lesions noted Course Vital Signs: Vital signs: Vital Signs Temperature 98.3 F 08/17/24 11:45 Pulse Rate 88 08/17/24 13:27 Respiratory Rate 16 08/17/24 11:45 Blood Pressure 161/60 08/17/24 11:45 Pulse Oximetry 94 08/17/24 13:27 Oxygen Delivery Me thod Room Air 08/17/24 13:27 MDM - Female Medical Decision Making Patient presents for the patella fracture after fall she is not able to ambulate or take care of herself and only lives with her will admit at this time. Medical Records I reviewed the patient's medical records. Lab Data I reviewed the patient's lab results. 08/17/24 11:40 08/17/24 11:40 Radiology Impressions Knee X-Ray 08/17/24 12:19 IMPRESSION: 1. Fracture of the superior pole of the patella showing some slight loss of reduction since the prior study. Associated soft tissue swelling and joint effusion. 2. Periosteal calcification along the lateral margin of the upper metaphysis of the tibia that might represent a healing cortical fracture. This is questionable. Pelvis X-Ray 08/17/24 12:19 IMPRESSION: 1. Very limited exam however no obvious pelvic fracture noted. Recommendation: If there is high clinical suspicion for pelvic fracture then CT might be considered for further work-up. Laboratory Results WBC 10.25 10^3/uL (3.29-11.43) 08/17/24 11:40 RBC 4.68 10^6/uL (3.85-5.65) 08/17/24 11:40 Hgb 13.90 g/dL (11.27-16.99) 08/17/24 11:40 Hct 42.8 % (36-47) 08/17/24 11:40 MCV 91.5 fl (85-98) 08/17/24 11:40 MCH 29.7 pg (27-33) 08/17/24 11:40 MCHC 32.5 g/dL (30-55) 08/17/24 11:40 RDW 14.7 % (12.1-15.1) 08/17/24 11:40 Plt Count 209 10^3/cmm (157-399) 08/17/24 11:40 MPV 10.6 fL (7.4-10.4) H 08/17/24 11:40 Neut % (Auto) 66.8 % 08/17/24 11:40 Lymph % (Auto) 22.9 % 08/17/24 11:40 [place] % (Auto) 8.3 % 08/17/24 11:40 Eos % (Auto) 1.2 % 08/17/24 11:40 Baso % (Auto) 0.4 % 08/17/24 11:40 Neut # (Auto) 6.85 10^3/uL (1.8-7.7) 08/17/24 11:40 Lymph # (Auto) 2.4 10^3/uL (0.8-4.8) 08/17/24 11:40 [place] # (Auto) 0.9 10^3/uL (0.2-0.9) 08/17/24 11:40 Eos # (Auto) 0.1 10^3/uL (0.0-0.8) 08/17/24 11:40 Baso # (Auto) 0.0 10^3/uL (0.0-0.1) 08/17/24 11:40 Nucleated RBC % (auto) 0 % 08/17/24 11:40 Nucleated RBCs # 0.0 /100WBC 08/17/24 11:40 Sodium 129 mmol/L (136-145) L 08/17/24 11:40 Potassium 4.2 mmol/L (3.5-5.1) 08/17/24 11:40 Chloride 91 mmol/L (98-107) L 08/17/24 11:40 Carbon Dioxide 23 mmol/L (22-29) 08/17/24 11:40 Anion Gap 19.2 (5-19) H 08/17/24 11:40 BUN 7 mg/dL (8-23) L 08/17/24 11:40 Creatinine 0.4 mg/dL (0.5-0.9) L 08/17/24 11:40 GFR Calculation Not Reportable 08/17/24 11:40 Glucose 233 mg/dL (65-115) H 08/17/24 11:40 Calculated Osmolality 273 mOsm/kg (285-295) L 08/17/24 11:40 Calcium 10.0 mg/dL (8.5-10.5) 08/17/24 11:40 Total Bilirubin 1.1 mg/dL (0.15-1.2) 08/17/24 11:40 AST 19 U/L (0-32) 08/17/24 11:40 ALT 28 U/L (0-33) 08/17/24 11:40 Alkaline Phosphatase 199 U/L (35-105) H 08/17/24 11:40 Total Protein 7.3 g/dL (6.6-8.7) 08/17/24 11:40 Albumin 4.0 g/dL (3.5-5.2) 08/17/24 11:40 Globulin 3.3 g/dL (1.3-4.6) 08/17/24 11:40 Lipase 11 U/L (13-60) L 08/17/24 11:40 Urine Color Yellow (Yellow) 08/17/24 13:10 Urine Appearance Turbid (CLEAR) A 08/17/24 13:10 Urine pH 7.0 (5-7) 08/17/24 13:10 Ur Specific [place] 1.014 (1.005-1.030) 08/17/24 13:10 Urine Protein Negative (Negative) 08/17/24 13:10 Urine Glucose (UA) 2+ (Normal) H 08/17/24 13:10 Urine Ketones 1+ (Negative) H 08/17/24 13:10 Urine Blood Negative (Negative) 08/17/24 13:10 Urine Nitrate Negative (Negative) 08/17/24 13:10 Urine Bilirubin Negative (Negative) 08/17/24 13:10 Urine Urobilinogen 1.0 mg/dL (Negative) 08/17/24 13:10 Ur Leukocyte Esterase Negative (Negative) 08/17/24 13:10 Urine RBC 0-2 /hpf (0-2) 08/17/24 13:10 Urine WBC 0-5 /hpf (0-5) 08/17/24 13:10 Ur Squamous Epith Cells 0-5 /hpf (0-5) 08/17/24 13:10 Amorphous Sediment Not Reportable 08/17/24 13:10 Urine Bacteria None seen /hpf (NONE) 08/17/24 13:10 Hyaline Casts 0.81 /lpf 08/17/24 13:10 All radiology interpretation(s) finalized by discharge Discharge Plan Discharge Patient Disposition: Admitted As Inpatient Clinical Impression: Closed fracture of left patella, Fall Condition: Stable Prescriptions: No Action cholecalciferol (vitamin D3) 1,000 unit capsule 1,000 unit PO QPM cranberry 500 mg capsule 500 mg PO QPM ferrous sulfate 325 mg (65 mg iron) tablet 325 mg PO DAILY@12 magnesium oxide 400 mg (241.3 mg magnesium) tablet 500 mg PO DAILY@12 (DME) hinged knee brace left See Rx Instructions .Route .MEDSUPPLY Qty: 1 0RF Rx Instructions: As directed diclofenac sodium 1 % gel 4 g topical QID Qty: 100 3RF Rx Instructions: apply to single knee, ankle, foot; for foot includes sole/toes/top of foot potassium chloride 8 mEq capsule, extended release 24 meq PO QAM (DME) FreeStyle Tor 2 Sensor Kit See Rx Instructions .MEDSUPPLY Qty: 3 3RF Rx Instructions: As directed (DME) FreeStyle Tor 2 Center Misc See Rx Instructions .Route Qty: 1 0RF Rx Instructions: As directed esomeprazole magnesium 40 mg capsule,delayed release(DR/EC) 40 mg PO QAM melatonin 3 mg capsule 3 mg PO BEDTIME (DME) blood sugar diagnostic Strip See Rx Instructions .Route Qty: 400 3RF Rx Instructions: Check blood sugar 4 times a day. (DME) lancets [Comfort EZ Lancets] 21 gauge misc See Rx Instructions .Route Qty: 400 3RF Rx Instructions: As directed (DME) Easymax 15 test strips Strip See Rx Instructions .Route Qty: 400 3RF Rx Instructions: Check BS 4 times a day. nitroglycerin 0.4 mg tablet, sublingual 0.4 mg sublingual Q5M PRN (Reason: chest pain) 30 Days Qty: 30 3RF Rx Instructions: until response; do not exceed 3 doses per episode fluticasone furoate-vilanterol [Breo Ellipta] 100-25 mcg/dose blister with device 1 inh inhalation DAILY Qty: 60 6RF isosorbide mononitrate 120 mg tablet extended release 24 hr 120 mg PO DAILY@12 Qty: 90 3RF (DME) dhaval LT knee Brace See Rx Instructions .Route .MEDSUPPLY Qty: 1 0RF Rx Instructions: As directed (DME) pen needle, diabetic [BD Ultra-Fine Mini Pen Needle] 31 gauge x 3/16 needle See Rx Instructions .ROUTE .COMPLEX Qty: 400 0RF Dose Instruction: USE WITH INSULIN FOUR TIMES DAILY Rx Instructions: USE WITH INSULIN FOUR TIMES DAILY hydrocodone-acetaminophen 10-325 mg tablet 1 tab PO Q6H MDD 6 PRN (Reason: pain) 7 Days Qty: 28 0RF hydrocortisone 10 mg tablet See Rx Instructions .ROUTE .COMPLEX Qty: 120 0RF Dose Instruction: TAKE 1 TABLET BY MOUTH FOUR TIMES DAILY Rx Instructions: TAKE 1 TABLET BY MOUTH FOUR TIMES DAILY aripiprazole 2 mg tablet See Rx Instructions .ROUTE .COMPLEX Qty: 30 2RF Dose Instruction: TAKE 1 TABLET BY MOUTH AT BEDTIME Rx Instructions: TAKE 1 TABLET BY MOUTH AT BEDTIME insulin degludec [Tresiba FlexTouch U-200] 200 unit/mL (3 mL) insulin pen See Rx Instructions .ROUTE .COMPLEX Qty: 9 0RF Dose Instruction: ADMINISTER 64 UNITS UNDER THE SKIN DAILY Rx Instructions: ADMINISTER 64 UNITS UNDER THE SKIN DAILY vitamin E 1,000 unit Capsule 1,000 unit PO QAM ascorbic acid (vitamin C) [Vitamin C] 500 mg Tablet,Chewable 500 mg PO QNOON lactulose 10 gram/15 mL solution 15 ml PO DAILY PRN (Reason: Constipation) oxycodone-acetaminophen [Percocet] 5-325 mg tablet 1 tab PO Q8H PRN (Reason: pain) Qty: 14 0RF torsemide 20 mg tablet 20 mg PO BID amlodipine 10 mg tablet 10 mg PO DAILY valsartan 320 mg tablet 320 mg PO QPM mupirocin 2 % ointment 1 applic TOPICAL TID PRN (Reason: Skin Irritation) insulin lispro [Humalog KwikPen Insulin] 100 unit/mL insulin pen 28 unit SUBCUT TID Rx Instructions: after meals, based on sliding scale provided Referrals: Arabella Orta MD [Primary Care Provider] - Print Language: British Coding Level of Care Code ED Nursing Scheduler for [facility]
[2024-08-17 12:41] LABS: Alanine Aminotransferase 28 U/L (0-33); Alkaline Phosphatase 199 U/L (35-105); Anion Gap 19.2 (5-19); Aspartate Amino Transferase 19 U/L (0-32); Blood Urea Nitrogen 7 mg/dL (8-23); Carbon Dioxide 23 mmol/L (22-29); Chloride 91 mmol/L (98-107); Creatinine Clr Calc Pharmacy 64.6545; Globulin 3.3 g/dL (1.3-4.6); Glucose 233 mg/dL (65-115); Lipase 11 U/L (13-60); Osmolality Calculated 273 mOsm/kg (285-295); Potassium 4.2 mmol/L (3.5-5.1); Sodium 129 mmol/L (136-145); Total Bilirubin 1.1 mg/dL (0.15-1.2); Total Protein 7.3 g/dL (6.6-8.7)
[2024-08-17 13:15] LABS: Bilirubin Urine Negative (Negative); Blood Urine Negative (Negative); Glucose Urine UA 2+ (Normal); Ketones Urine 1+ (Negative); Leukocyte Esterase Urine Negative (Negative); Nitrate Urine Negative (Negative); Protein Urine Negative (Negative); Specific Gravity, Urine 1.014 (1.005-1.030); Urine Appearance Turbid (CLEAR); Urine Color Yellow (Yellow)
[2024-08-17 13:18] LABS: Add Urine Microscopic? YES; Bacteria Urine None Seen /hpf; Hyaline Casts Urine 0.81 /lpf; RBC Urine 0-2 /hpf (0-2); Squamous Epithelial Cell Urine 0-5 /hpf (0-5); WBC Urine 0-5 /hpf (0-5)
--- NOTE | 2024-08-17 13:28 | PC.NURSE ---
STRAIGHT CATH URINE COLLECTED. PATIENT STATED SHE FELT VERY FULL. CONTINUED TO LEAVE STRAIGHT CATH IN PLACE UNTIL PATIENT COMPLETE OUTPUT. PATIENT PRODUCED 1100 ML OF URINE. PATIENT STATES FEELING RELIEF. STRAIGHT CATH REMOVED.
--- NOTE | 2024-08-17 13:33 | W.ED.FEMALGU ---
HPI - Female Genitourinary General: Chief complaint: Urogenital-Female Stated complaint: weaknes; UTI Time Seen by Provider: 08/17/24 12:16 Source: patient and EMS Mode of arrival: EMS Limitations: no limitations Related Data Home Medications ?Medication ?Instructions ?Recorded ?Confirmed cholecalciferol (vitamin D3) 25 1,000 unit PO QPM 06/01/19 08/09/24 mcg (1,000 unit) capsule cranberry 500 mg capsule 500 mg PO QPM 06/01/19 08/09/24 ferrous sulfate 325 mg (65 mg 325 mg PO DAILY@12 06/21/19 08/09/24 iron) tablet magnesium oxide 400 mg (241.3 mg 500 mg PO DAILY@02/14/21 08/09/24 magnesium) tablet ascorbic acid (vitamin C) 500 mg 500 mg PO QNOON 11/14/21 08/09/24 chewable tablet (Vitamin C) vitamin E 670 mg (1,000 unit) 1,000 unit PO QAM 11/14/21 08/09/24 capsule esomeprazole magnesium 40 mg 40 mg PO QAM 05/19/22 08/09/24 capsule,delayed release potassium chloride 8 mEq 24 meq PO QAM 05/19/22 08/09/24 capsule,extended release lactulose 10 gram/15 mL oral 15 ml PO DAILY PRN Constipation 06/23/23 08/09/24 solution melatonin 3 mg capsule 3 mg PO BEDTIME 11/18/23 08/09/24 amlodipine 10 mg tablet 10 mg PO DAILY 06/09/24 08/09/24 insulin lispro 100 unit/mL 28 unit SUBCUT TID 06/09/24 08/09/24 subcutaneous pen (Humalog KwikPen (U-100) Insulin) mupirocin 2 % topical ointment 1 applic topical TID PRN Skin 06/09/24 08/09/24 Irritation torsemide 20 mg tablet 20 mg PO BID 06/09/24 08/09/24 valsartan 320 mg tablet 320 mg PO QPM 06/09/24 08/09/24 Previous Rx's ?Medication ?Instructions ?Recorded blood sugar diagnostic #400 ea 09/02/21 lancets 21 gauge (Comfort EZ #400 ea 09/02/21 Lancets) blood sugar diagnostic (Easymax 15 #400 ea 09/11/21 test strips) flash glucose scanning reader #1 ea 02/17/22 (FreeStyle Tor 2 [place]) flash glucose sensor (FreeStyle #3 ea 02/17/22 Tor 2 Sensor kit) nitroglycerin 0.4 mg sublingual 0.4 mg sublingual Q5M PRN chest 08/04/23 tablet pain 30 days #30 tabs fluticasone furoate 100 1 inh inhalation DAILY #60 ea 09/20/23 mcg-vilanterol 25 mcg/dose inhalation powder (Breo Ellipta) isosorbide mononitrate 120 mg 120 mg PO DAILY@12 #90 tabs 09/20/23 tablet,extended release 24 hr oxycodone-acetaminophen 5 mg-325 1 tab PO Q8H PRN pain #14 tabs 06/28/24 mg tablet (Percocet) dhaval LT knee Brace #1 ea 06/30/24 pen needle, diabetic 31 gauge x #400 ea 07/03/24/ (BD Ultra-Fine Mini Pen Needle) hydrocodone 10 mg-acetaminophen 1 tab PO Q6H PRN pain 7 days #28 07/31/24 325 mg tablet tabs aripiprazole 2 mg tablet See Rx Instructions .Route 08/07/24 .COMPLEX #30 tabs hydrocortisone 10 mg tablet See Rx Instructions .Route 08/07/24 .COMPLEX #120 tabs diclofenac sodium 1 % topical gel 4 g topical QID #100 grams 08/09/24 hinged knee brace left #1 ea 08/09/24 insulin degludec 200 unit/mL (3 See Rx Instructions .Route 08/14/24 mL) subcutaneous pen (Tresiba .COMPLEX #9 mL FlexTouch U-200 insulin) Allergies Allergy/AdvReac Type Severity Reaction Status Date / Time morphine Allergy Severe RESPIRATORY Verified 08/09/24 13:12 DISTRESS doxycycline Allergy Mild THROAT Verified 08/09/24 13:12 SWELLING duloxetine (From Cymbalta) Allergy Mild SWELLING, Verified 08/09/24 13:12 VOMITING metformin Allergy Mild THROAT Verified 08/09/24 13:12 SWELLING oxybutynin (From Oxytrol) Allergy Mild ALGY-Rash Verified 08/09/24 13:12 Penicillins Allergy Mild ALGY-Rash Verified 08/09/24 13:12 Sulfa (Sulfonamide Allergy Mild STOMACH Verified 08/09/24 13:12 Antibiotics) CRAMPS alprazolam (From Xanax) Allergy Unknown Unknown Verified 08/09/24 13:12 amitriptyline Allergy Unknown Unknown Verified 08/09/24 13:12 Barbiturates Allergy Unknown stomach Verified 08/09/24 13:12 cramps cefuroxime (From Ceftin) Allergy Unknown stomach Verified 08/09/24 13:12 cramps insulin detemir (From Allergy Unknown Unknown Verified 08/09/24 13:12 Levemir U-100 Insulin) levofloxacin (From Levaquin) Allergy Unknown Unknown Verified 08/09/24 13:12 liraglutide (From Victoza) Allergy Unknown Unknown Verified 08/09/24 13:12 metoclopramide (From Reglan) Allergy Unknown Unknown Verified 08/09/24 13:12 nitrofurantoin (From Allergy Unknown Unknown Verified 08/09/24 13:12 Macrobid) pregabalin (From Lyrica) Allergy Unknown Unknown Verified 08/09/24 13:12 divalproex sodium (From Allergy ALGY-Hives Verified 08/09/24 13:12 Depakote) gabapentin Allergy bone, Verified 08/09/24 13:12 muscle pain and mood swings venlafaxine Allergy Unknown Verified 08/09/24 13:12 meloxicam AdvReac Severe ADR-Vomitin Verified 08/09/24 13:12 g ciprofloxacin (From Cipro) AdvReac Mild stomach Verified 08/09/24 13:12 upset hydromorphone (From Dilaudid) AdvReac Unknown PT STATES Verified 08/09/24 13:12 IT MAKES ME CRAZY [facility] ED PFSH: Medical History C. 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 Left axis deviation. Normal LA and QRS duration. Dyslipidemia (high LDL; low HDL) Benign essential hypertension with target blood pressure below 140/90 Atherosclerotic heart disease of [place] coronary artery without angina pectoris Status post left heart catheterization Recurrent UTI Gross hematuria Bipolar II disorder Surgical History Hx of bilateral hip replacements Hx of bladder repair surgery History of colonoscopy (~2018) History of coronary artery stent placement History of right knee surgery S/P appendectomy S/P hysterectomy S/P hernia repair S/P hip replacement Family History Family/Other Diabetes Other Cancer Social History Smoking and tobacco/nicotine status: never used tobacco/nicotine Alcohol intake: never Substance/Drug Use: never Household members: spouse Marital status: Current occupational status: retired Course Vital Signs: Vital signs: Vital Signs Temperature 98.3 F 08/17/24 11:45 Pulse Rate 88 08/17/24 13:27 Respiratory Rate 16 08/17/24 11:45 Blood Pressure 161/60 08/17/24 11:45 Pulse Oximetry 94 08/17/24 13:27 Oxygen Delivery Me thod Room Air 08/17/24 13:27 MDM - Female Lab Data 08/17/24 11:40 08/17/24 11:40 Radiology Impressions Knee X-Ray 08/17/24 12:19 IMPRESSION: 1. Fracture of the superior pole of the patella showing some slight loss of reduction since the prior study. Associated soft tissue swelling and joint effusion. 2. Periosteal calcification along the lateral margin of the upper metaphysis of the tibia that might represent a healing cortical fracture. This is questionable. Pelvis X-Ray 08/17/24 12:19 IMPRESSION: 1. Very limited exam however no obvious pelvic fracture noted. Recommendation: If there is high clinical suspicion for pelvic fracture then CT might be considered for further work-up. Laboratory Results WBC 10.25 10^3/uL (3.29-11.43) 08/17/24 11:40 RBC 4.68 10^6/uL (3.85-5.65) 08/17/24 11:40 Hgb 13.90 g/dL (11.27-16.99) 08/17/24 11:40 Hct 42.8 % (36-47) 08/17/24 11:40 MCV 91.5 fl (85-98) 08/17/24 11:40 MCH 29.7 pg (27-33) 08/17/24 11:40 MCHC 32.5 g/dL (30-55) 08/17/24 11:40 RDW 14.7 % (12.1-15.1) 08/17/24 11:40 Plt Count 209 10^3/cmm (157-399) 08/17/24 11:40 MPV 10.6 fL (7.4-10.4) H 08/17/24 11:40 Neut % (Auto) 66.8 % 08/17/24 11:40 Lymph % (Auto) 22.9 % 08/17/24 11:40 Wilkinson % (Auto) 8.3 % 08/17/24 11:40 Eos % (Auto) 1.2 % 08/17/24 11:40 Baso % (Auto) 0.4 % 08/17/24 11:40 Neut # (Auto) 6.85 10^3/uL (1.8-7.7) 08/17/24 11:40 Lymph # (Auto) 2.4 10^3/uL (0.8-4.8) 08/17/24 11:40 Wilkinson # (Auto) 0.9 10^3/uL (0.2-0.9) 08/17/24 11:40 Eos # (Auto) 0.1 10^3/uL (0.0-0.8) 08/17/24 11:40 Baso # (Auto) 0.0 10^3/uL (0.0-0.1) 08/17/24 11:40 Nucleated RBC % (auto) 0 % 08/17/24 11:40 Nucleated RBCs # 0.0 /100WBC 08/17/24 11:40 Sodium 129 mmol/L (136-145) L 08/17/24 11:40 Potassium 4.2 mmol/L (3.5-5.1) 08/17/24 11:40 Chloride 91 mmol/L (98-107) L 08/17/24 11:40 Carbon Dioxide 23 mmol/L (22-29) 08/17/24 11:40 Anion Gap 19.2 (5-19) H 08/17/24 11:40 BUN 7 mg/dL (8-23) L 08/17/24 11:40 Creatinine 0.4 mg/dL (0.5-0.9) L 08/17/24 11:40 GFR Calculation Not Reportable 08/17/24 11:40 Glucose 233 mg/dL (65-115) H 08/17/24 11:40 Calculated Osmolality 273 mOsm/kg (285-295) L 08/17/24 11:40 Calcium 10.0 mg/dL (8.5-10.5) 08/17/24 11:40 Total Bilirubin 1.1 mg/dL (0.15-1.2) 08/17/24 11:40 AST 19 U/L (0-32) 08/17/24 11:40 ALT 28 U/L (0-33) 08/17/24 11:40 Alkaline Phosphatase 199 U/L (35-105) H 08/17/24 11:40 Total Protein 7.3 g/dL (6.6-8.7) 08/17/24 11:40 Albumin 4.0 g/dL (3.5-5.2) 08/17/24 11:40 Globulin 3.3 g/dL (1.3-4.6) 08/17/24 11:40 Lipase 11 U/L (13-60) L 08/17/24 11:40 Urine Color Yellow (Yellow) 08/17/24 13:10 Urine Appearance Turbid (CLEAR) A 08/17/24 13:10 Urine pH 7.0 (5-7) 08/17/24 13:10 Ur Specific [place] 1.014 (1.005-1.030) 08/17/24 13:10 Urine Protein Negative (Negative) 08/17/24 13:10 Urine Glucose (UA) 2+ (Normal) H 08/17/24 13:10 Urine Ketones 1+ (Negative) H 08/17/24 13:10 Urine Blood Negative (Negative) 08/17/24 13:10 Urine Nitrate Negative (Negative) 08/17/24 13:10 Urine Bilirubin Negative (Negative) 08/17/24 13:10 Urine Urobilinogen 1.0 mg/dL (Negative) 08/17/24 13:10 Ur Leukocyte Esterase Negative (Negative) 08/17/24 13:10 Urine RBC 0-2 /hpf (0-2) 08/17/24 13:10 Urine WBC 0-5 /hpf (0-5) 08/17/24 13:10 Ur Squamous Epith Cells 0-5 /hpf (0-5) 08/17/24 13:10 Amorphous Sediment Not Reportable 08/17/24 13:10 Urine Bacteria None seen /hpf (NONE) 08/17/24 13:10 Hyaline Casts 0.81 /lpf 08/17/24 13:10 Discharge Plan Discharge Patient Disposition: Admitted As Inpatient Clinical Impression: Closed fracture of left patella, Fall Condition: Stable Coding Level of Care Code ED [employer] for [employer]
[2024-08-17 13:48] LABS: Add Urine Culture? No
[2024-08-17 16:30] LABS: Glucose Point of Care 304 mg/dL (70-110)
[2024-08-17] MEDS: HYDROcodone-acetaminophen 10-325 mg Tablet 1 TAB PO ×2 (17:14→23:17)
[2024-08-17] MEDS: heparin 5,000 unit/mL INJ 1 mL 5000 UNIT SUBCUT ×2 (17:14→23:17)
--- NOTE | 2024-08-17 17:19 | PM.HP ---
Providers/Chief Complaint Admitting Physician: Ines Horotn Primary Care Provider: Arabella Orta MD Chief Complaint: weaknes; UTI History of Present Illness Brandi Berg is a 79 year old female past medical history of diabetes, Melrose's disease, hypertension, hyperlipidemia, coronary artery disease status post three stents, and osteoporosis presents with a left patellar fracture and back pain following a fall yesterday. The Patient fell while being assisted out of a wheelchair by her after an eye doctor appointment. They both fell. The Patient was unable to get up independently and required assistance with EMS however did not come to ER until today. She denied any head trauma. The Patient reports pain in her left knee and back. She describes the back pain as well on her right side. The Patient's medications include hydrocodone 10mg every 6 hours for chronic pain, hydrocortisone for Melrose's disease, medication for high blood pressure, and Lipitor. She previously took aspirin and Plavix but discontinued them due to bruising. The Patient uses Humalog and triseba insulin for diabetes. . Initial evaluation revealed a left patellar fracture, and an immobilizer was placed on her left leg. The Patient is scheduled for surgery tomorrow with Dr. Joya. Review of Systems General: Reports: 10 or more systems reviewed and unremarkable except in HPI and below Medications/Allergies Home Medications ?Medication ?Instructions ?Recorded ?Confirmed ?Last Taken ?Type cholecalciferol (vitamin D3) 25 1,000 unit PO QPM 06/01/19 08/17/24 08/16/24 History mcg (1,000 unit) capsule cranberry 500 mg capsule 500 mg PO QPM 06/01/19 08/17/24 08/16/24 History ferrous sulfate 325 mg (65 mg 325 mg PO DAILY@06/21/19 08/17/24 06/08/24 History iron) tablet magnesium oxide 400 mg (241.3 mg 500 mg PO DAILY@02/14/21 08/17/24 08/16/24 History magnesium) tablet blood sugar diagnostic #400 ea 09/02/21 08/17/24 02/18/24 Rx lancets 21 gauge (Comfort EZ #400 ea 09/02/21 08/17/24 02/18/24 Rx Lancets) blood sugar diagnostic (Easymax 15 #400 ea 09/11/21 08/17/24 02/18/24 Rx test strips) ascorbic acid (vitamin C) 500 mg 500 mg PO QNOON 11/14/21 08/17/24 08/16/24 History chewable tablet (Vitamin C) vitamin E 670 mg (1,000 unit) 1,000 unit PO QAM 11/14/21 08/17/24 06/08/24 History capsule flash glucose scanning reader #1 ea 02/17/22 08/17/24 02/18/24 Rx (FreeStyle Tor 2 [place]) flash glucose sensor (FreeStyle #3 ea 02/17/22 08/17/24 02/18/24 Rx Tor 2 Sensor kit) esomeprazole magnesium 40 mg 40 mg PO QAM 05/19/22 08/17/24 06/08/24 History capsule,delayed release potassium chloride 8 mEq 24 meq PO QAM 05/19/22 08/17/24 08/16/24 History capsule,extended release lactulose 10 gram/15 mL oral 15 ml PO DAILY PRN Constipation 06/23/23 08/17/24 08/16/24 History solution nitroglycerin 0.4 mg sublingual 0.4 mg sublingual Q5M PRN chest 08/04/23 08/17/24 02/18/24 Rx tablet pain 30 days #30 tabs isosorbide mononitrate 120 mg 120 mg PO DAILY@12 #90 tabs 09/20/23 08/17/24 08/16/24 Rx tablet,extended release 24 hr melatonin 3 mg capsule 3 mg PO BEDTIME 11/18/23 08/17/24 08/16/24 History amlodipine 10 mg tablet 10 mg PO DAILY 06/09/24 08/17/24 08/16/24 History insulin lispro 100 unit/mL 28 unit SUBCUT TID 06/09/24 08/17/24 08/16/24 History subcutaneous pen (Humalog KwikPen (U-100) Insulin) torsemide 20 mg tablet 20 mg PO BID 06/09/24 08/17/24 08/16/24 History valsartan 320 mg tablet 320 mg PO QPM 06/09/24 08/17/24 08/16/24 History dhaval LT knee Brace #1 ea 06/30/24 08/17/24 Unknown Rx pen needle, diabetic 31 gauge x #400 ea 07/03/24 08/17/24 Unknown Rx 3/16 (BD Ultra-Fine Mini Pen Needle) hydrocodone 10 mg-acetaminophen 1 tab PO Q6H PRN pain 7 days #28 07/31/24 08/17/24 08/16/24 Rx 325 mg tablet tabs aripiprazole 2 mg tablet See Rx Instructions .Route 08/07/24 08/17/24 08/16/24 Rx .COMPLEX #30 tabs hydrocortisone 10 mg tablet See Rx Instructions .Route 08/07/24 08/17/24 08/16/24 Rx .COMPLEX #120 tabs diclofenac sodium 1 % topical gel 4 g topical QID #100 grams 08/09/24 08/17/24 Unknown Rx hinged knee brace left #1 ea 08/09/24 08/17/24 Unknown Rx insulin degludec 200 unit/mL (3 See Rx Instructions .Route 08/14/24 08/17/24 08/16/24 Rx mL) subcutaneous pen (Tresiba .COMPLEX #9 mL FlexTouch U-200 insulin) Allergies Allergy/AdvReac Type Severity Reaction Status Date / Time morphine Allergy Severe RESPIRATORY Verified 08/09/24 13:12 DISTRESS doxycycline Allergy Mild THROAT Verified 08/09/24 13:12 SWELLING duloxetine (From Cymbalta) Allergy Mild SWELLING, Verified 08/09/24 13:12 VOMITING metformin Allergy Mild THROAT Verified 08/09/24 13:12 SWELLING oxybutynin (From Oxytrol) Allergy Mild ALGY-Rash Verified 08/09/24 13:12 Penicillins Allergy Mild ALGY-Rash Verified 08/09/24 13:12 Sulfa (Sulfonamide Allergy Mild STOMACH Verified 08/09/24 13:12 Antibiotics) CRAMPS alprazolam (From Xanax) Allergy Unknown Unknown Verified 08/09/24 13:12 amitriptyline Allergy Unknown Unknown Verified 08/09/24 13:12 Barbiturates Allergy Unknown stomach Verified 08/09/24 13:12 cramps cefuroxime (From Ceftin) Allergy Unknown stomach Verified 08/09/24 13:12 cramps insulin detemir (From Allergy Unknown Unknown Verified 08/09/24 13:12 Levemir U-100 Insulin) levofloxacin (From Levaquin) Allergy Unknown Unknown Verified 08/09/24 13:12 liraglutide (From Victoza) Allergy Unknown Unknown Verified 08/09/24 13:12 metoclopramide (From Reglan) Allergy Unknown Unknown Verified 08/09/24 13:12 nitrofurantoin (From Allergy Unknown Unknown Verified 08/09/24 13:12 Macrobid) pregabalin (From Lyrica) Allergy Unknown Unknown Verified 08/09/24 13:12 divalproex sodium (From Allergy ALGY-Hives Verified 08/09/24 13:12 Depakote) gabapentin Allergy bone, Verified 08/09/24 13:12 muscle pain and mood swings venlafaxine Allergy Unknown Verified 08/09/24 13:12 meloxicam AdvReac Severe ADR-Vomitin Verified 08/09/24 13:12 g ciprofloxacin (From Cipro) AdvReac Mild stomach Verified 08/09/24 13:12 upset hydromorphone (From Dilaudid) AdvReac Unknown PT STATES Verified 08/09/24 13:12 IT MAKES ME CRAZY PFSH Acute PFSH: Medical History C. 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 Left axis deviation. Normal NM and QRS duration. Dyslipidemia (high LDL; low HDL) Benign essential hypertension with target blood pressure below 140/90 Atherosclerotic heart disease of [place] coronary artery without angina pectoris Status post left heart catheterization Recurrent UTI Gross hematuria Bipolar II disorder Surgical History Hx of bilateral hip replacements Hx of bladder repair surgery History of colonoscopy (~2018) History of coronary artery stent placement History of right knee surgery S/P appendectomy S/P hysterectomy S/P hernia repair S/P hip replacement Family History Family/Other Diabetes Other Cancer Social History Smoking and tobacco/nicotine status: never used tobacco/nicotine Alcohol intake: never Substance/Drug Use: never Household members: spouse Marital status: Current occupational status: retired Vitals/I&O/Wt Last Vital Signs Temp 98.1 F 08/17/24 16:30 Pulse 94 08/17/24 16:30 Resp 16 08/17/24 16:30 BP 160/69 08/17/24 16:30 Pulse Ox 93 08/17/24 16:30 O2 Del Method Room Air 08/17/24 16:30 Weight last 48 hrs Weight 98.231 kg Weight 107.048 kg Physical Exam Narrative: Alert and oriented x 3 Head is normocephalic atraumatic Respirations are intact CVS - RRR Abd Soft NT/ND Patient's neurovascular intact bilateral lower extremities Immobilizer in place. Urinary Catheter Management: Germain: Cath Placed During This Visit: yes Reason for Continuing Indwelling Catheter: Required Immobilization for Trauma or Surgery or Anesthesia Urinary Catheter Date of Insertion: 08/17/24 Urinary Catheter Time of Insertion: 14:35 Data 08/17/24 11:40 08/17/24 11:40 A&P Assessment and plan (1) Hyponatremia: ? Potentially related to dehydration, Lasix therapy, losartan, lactulose, metolazone -Monitor serum sodium -Last serum sodium 127 -Does have a chronic history of hyponatremia ? 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 Houser Qualifiers: Back pain laterality: bilateral Back pain location: low back pain Sciatica laterality: sciatica of right side Sciatica presence: with sciatica Qualified Code(s): M54.41 - Lumbago with sciatica, right side; G89.29 - Other chronic pain Plan Left Patellar Fracture - Patient sustained a left patellar fracture from a fall yesterday. - Immobilizer in place on the left leg. - Scheduled for surgery tomorrow with Dr. Joya Plan: 1. NPO after midnight. 2. Continue immobilizer. 3. Orthopedic surgery as scheduled. 4. Pain management (see below). Back Pain - Chronic back pain exacerbated by recent fall. - The Patient reports pain in lower back and side. Plan: 1. Continue pain management. 2. Consider imaging if pain persists post-operatively. Urinary Symptoms - The Patient reports burning sensation and difficulty urinating. - Urinary catheter in place. Plan: 1. Urine culture and urinalysis. 2. Consider empiric antibiotics pending results. 3. Monitor input/output. Diabetes Mellitus - The Patient is on short acting which we will for surgery - On tresiba 68 units at bedtime Plan: 1. Reduce lantus does to 40 units at bedtime 2. Implement sliding scale insulin regimen. 3. Monitor blood glucose levels. Change to q4hr while npo Melrose's Disease - Continue hydrocortisone as prescribed. Hypertension - Continue current antihypertensive medication. Hyperlipidemia - Continue Lipitor as prescribed. Coronary Artery Disease - History of three stents. - Currently off aspirin and Plavix due to bleeding risk. Plan: 1. No change to management Pain Management - Hydrocodone 10mg PO every 6 hours as needed for pain. - The Patient is allergic to morphine and dilaudid. Plan: 1. Continue hydrocodone 10mg PO every 6 hours as needed. PDMP PDMP Reviewed: Not Reviewed Attestations Medical Necessity Statement*: Will require over 2 midnight for management of above. Coding Level of Care Code Acute Code for [facility] Diagnoses Hyponatremia E87.1 Back pain, chronic M54.41; G89.29 Back pain laterality: bilateral Back pain location: low back pain Sciatica laterality: sciatica of right side Sciatica presence: with sciatica
[2024-08-17] MEDS: insulin lispro 100 unit/1 mL SUBCUT ×2 (17:29→21:00)
[2024-08-17] MEDS: losartan 50 mg Tablet 100 MG PO (17:29)
[2024-08-17] MEDS: TORSEmide 20 mg Tablet PO (17:29)
--- NOTE | 2024-08-17 18:06 | PM.CONSULT ---
Providers/Reason For Consult Consulting Physician/Specialty*: Hospitalist Reason for Consult*: Left patella fracture Attending Physician: Ines Horton Primary Care Provider: Arabella Orta MD History of Present Illness History of Present Illness Brandi Berg is a 79 year old female fell out of wheelchair and sustained a left patella fracture that is displaced. Patient is currently in a knee immobilizer. Review of Systems Const: Denies: fever(s), chills, body aches or change in appetite ENMT: Denies: throat pain or dental pain Card: Denies: chest pain Resp: Denies: dyspnea GI: Denies: abdominal pain, nausea, vomiting or diarrhea : Reports: difficulty voiding Musc: Reports: extremity pain; Denies: neck pain or back pain Skin/Breast: Denies: rash Neuro: Denies: headache(s) All/Imm: Denies: urticaria Medications/Allergies Home Medications ?Medication ?Instructions ?Recorded ?Confirmed ?Last Taken ?Type cholecalciferol (vitamin D3) 25 1,000 unit PO QPM 06/01/19 08/17/24 08/16/24 History mcg (1,000 unit) capsule cranberry 500 mg capsule 500 mg PO QPM 06/01/19 08/17/24 08/16/24 History ferrous sulfate 325 mg (65 mg 325 mg PO DAILY@06/21/19 08/17/24 06/08/24 History iron) tablet magnesium oxide 400 mg (241.3 mg 500 mg PO DAILY@02/14/21 08/17/24 08/16/24 History magnesium) tablet blood sugar diagnostic #400 ea 09/02/21 08/17/24 02/18/24 Rx lancets 21 gauge (Comfort EZ #400 ea 09/02/21 08/17/24 02/18/24 Rx Lancets) blood sugar diagnostic (Easymax 15 #400 ea 09/11/21 08/17/24 02/18/24 Rx test strips) ascorbic acid (vitamin C) 500 mg 500 mg PO QNOON 11/14/21 08/17/24 08/16/24 History chewable tablet (Vitamin C) vitamin E 670 mg (1,000 unit) 1,000 unit PO QAM 11/14/21 08/17/24 06/08/24 History capsule flash glucose scanning reader #1 ea 02/17/22 08/17/24 02/18/24 Rx (FreeStyle Tor 2 [place]) flash glucose sensor (FreeStyle #3 ea 02/17/22 08/17/24 02/18/24 Rx Tor 2 Sensor kit) esomeprazole magnesium 40 mg 40 mg PO QAM 05/19/22 08/17/24 06/08/24 History capsule,delayed release potassium chloride 8 mEq 24 meq PO QAM 05/19/22 08/17/24 08/16/24 History capsule,extended release lactulose 10 gram/15 mL oral 15 ml PO DAILY PRN Constipation 06/23/23 08/17/24 08/16/24 History solution nitroglycerin 0.4 mg sublingual 0.4 mg sublingual Q5M PRN chest 08/04/23 08/17/24 02/18/24 Rx tablet pain 30 days #30 tabs isosorbide mononitrate 120 mg 120 mg PO DAILY@12 #90 tabs 09/20/23 08/17/24 08/16/24 Rx tablet,extended release 24 hr melatonin 3 mg capsule 3 mg PO BEDTIME 11/18/23 08/17/24 08/16/24 History amlodipine 10 mg tablet 10 mg PO DAILY 06/09/24 08/17/24 08/16/24 History insulin lispro 100 unit/mL 28 unit SUBCUT TID 06/09/24 08/17/24 08/16/24 History subcutaneous pen (Humalog KwikPen (U-100) Insulin) torsemide 20 mg tablet 20 mg PO BID 06/09/24 08/17/24 08/16/24 History valsartan 320 mg tablet 320 mg PO QPM 06/09/24 08/17/24 08/16/24 History dhaval LT knee Brace #1 ea 06/30/24 08/17/24 Unknown Rx pen needle, diabetic 31 gauge x #400 ea 07/03/24 08/17/24 Unknown Rx 3/16 (BD Ultra-Fine Mini Pen Needle) hydrocodone 10 mg-acetaminophen 1 tab PO Q6H PRN pain 7 days #28 07/31/24 08/17/24 08/16/24 Rx 325 mg tablet tabs aripiprazole 2 mg tablet See Rx Instructions .Route 08/07/24 08/17/24 08/16/24 Rx .COMPLEX #30 tabs hydrocortisone 10 mg tablet See Rx Instructions .Route 08/07/24 08/17/24 08/16/24 Rx .COMPLEX #120 tabs diclofenac sodium 1 % topical gel 4 g topical QID #100 grams 08/09/24 08/17/24 Unknown Rx hinged knee brace left #1 ea 08/09/24 08/17/24 Unknown Rx insulin degludec 200 unit/mL (3 See Rx Instructions .Route 08/14/24 08/17/24 08/16/24 Rx mL) subcutaneous pen (Tresiba .COMPLEX #9 mL FlexTouch U-200 insulin) Allergies Allergy/AdvReac Type Severity Reaction Status Date / Time morphine Allergy Severe RESPIRATORY Verified 08/09/24 13:12 DISTRESS doxycycline Allergy Mild THROAT Verified 08/09/24 13:12 SWELLING duloxetine (From Cymbalta) Allergy Mild SWELLING, Verified 08/09/24 13:12 VOMITING metformin Allergy Mild THROAT Verified 08/09/24 13:12 SWELLING oxybutynin (From Oxytrol) Allergy Mild ALGY-Rash Verified 08/09/24 13:12 Penicillins Allergy Mild ALGY-Rash Verified 08/09/24 13:12 Sulfa (Sulfonamide Allergy Mild STOMACH Verified 08/09/24 13:12 Antibiotics) CRAMPS alprazolam (From Xanax) Allergy Unknown Unknown Verified 08/09/24 13:12 amitriptyline Allergy Unknown Unknown Verified 08/09/24 13:12 Barbiturates Allergy Unknown stomach Verified 08/09/24 13:12 cramps cefuroxime (From Ceftin) Allergy Unknown stomach Verified 08/09/24 13:12 cramps insulin detemir (From Allergy Unknown Unknown Verified 08/09/24 13:12 Levemir U-100 Insulin) levofloxacin (From Levaquin) Allergy Unknown Unknown Verified 08/09/24 13:12 liraglutide (From Victoza) Allergy Unknown Unknown Verified 08/09/24 13:12 metoclopramide (From Reglan) Allergy Unknown Unknown Verified 08/09/24 13:12 nitrofurantoin (From Allergy Unknown Unknown Verified 08/09/24 13:12 Macrobid) pregabalin (From Lyrica) Allergy Unknown Unknown Verified 08/09/24 13:12 divalproex sodium (From Allergy ALGY-Hives Verified 08/09/24 13:12 Depakote) gabapentin Allergy bone, Verified 08/09/24 13:12 muscle pain and mood swings venlafaxine Allergy Unknown Verified 08/09/24 13:12 meloxicam AdvReac Severe ADR-Vomitin Verified 08/09/24 13:12 g ciprofloxacin (From Cipro) AdvReac Mild stomach Verified 08/09/24 13:12 upset hydromorphone (From Dilaudid) AdvReac Unknown PT STATES Verified 08/09/24 13:12 IT MAKES ME CRAZY Current Medications Generic Name Dose Route Start Last Admin Trade Name Freq PRN Reason Stop Dose Admin Hydrocodone Bitart/Acetaminophen 1 tab 08/17/24 17:00 08/17/24 17:14 Hydrocodone-Acetaminophen 10-325 Mg Tablet PO 1 tab Q6H PRN Administration MODERATE PAIN Heparin Sodium (Porcine) 5,000 unit 08/17/24 16:30 08/17/24 17:14 Heparin 5,000 Unit/Ml Inj 1 Ml SUBCUT 5,000 unit Q8H TEJA Administration Insulin Human Lispro 0 unit 08/17/24 18:00 08/17/24 17:29 Insulin Lispro 100 Unit/1 Ml SUBCUT 12 unit WM&BEDTIME TEJA Administration Protocol Losartan Potassium 100 mg 08/17/24 18:00 08/17/24 17:29 Losartan 50 Mg Tablet PO 100 mg QPM TEJA Administration Torsemide 20 mg 08/17/24 18:00 08/17/24 17:29 Torsemide 20 Mg Tablet PO 20 mg BID TEJA Administration PFSH Acute PFSH: Medical History C. 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 Left axis deviation. Normal [place] and QRS duration. Dyslipidemia (high LDL; low HDL) Benign essential hypertension with target blood pressure below 140/90 Atherosclerotic heart disease of [place] coronary artery without angina pectoris Status post left heart catheterization Recurrent UTI Gross hematuria Bipolar II disorder Surgical History Hx of bilateral hip replacements Hx of bladder repair surgery History of colonoscopy (~2018) History of coronary artery stent placement History of right knee surgery S/P appendectomy S/P hysterectomy S/P hernia repair S/P hip replacement Family History Family/Other Diabetes Other Cancer Social History Smoking and tobacco/nicotine status: never used tobacco/nicotine Alcohol intake: never Substance/Drug Use: never Household members: spouse Marital status: Current occupational status: retired Vitals/I&O/Wt Last Vital Signs Temp 98.1 F 08/17/24 16:30 Pulse 94 08/17/24 16:30 Resp 16 08/17/24 16:30 BP 160/69 08/17/24 17:29 Pulse Ox 93 08/17/24 16:30 O2 Del Method Room Air 08/17/24 16:30 Weight last 48 hrs Weight 216 lb 9 oz Weight 236 lb Physical Exam Narrative: Alert and oriented x 3 Head is normocephalic atraumatic Respirations are intact Patient's neurovascular intact bilateral lower extremities Urinary Catheter Management: Germain: Cath Placed During This Visit: yes Reason for Continuing Indwelling Catheter: Required Immobilization for Trauma or Surgery or Anesthesia Urinary Catheter Date of Insertion: 08/17/24 Urinary Catheter Time of Insertion: 14:35 Data 08/17/24 11:40 08/17/24 11:40 A&P Assessment and plan (1) Closed fracture of left patella: Plan is to do open reduction internal fixation of left patella fracture tomorrow. I had an open and honest discussion with the patient about the risks, benefits and alternatives to both surgical and nonsurgical treatment. The patient verbalized understanding of the inherent unpredictability associated with surgery. Risk of surgery were discussed including, but not limited to, infection, bleeding, temporary and permanent nerve damage, continued pain, stiffness, incomplete healing, need for revision surgery, blood clot and other complications. The patient verbalized understanding of these risks and elected to proceed with the surgery. Qualifiers: Encounter type: subsequent encounter Fracture morphology: transverse Fracture alignment: nondisplaced Fracture healing: with routine healing Qualified Code(s): S82.035D - Nondisplaced transverse fracture of left patella, subsequent encounter for closed fracture with routine healing PDMP PDMP Reviewed: Not Reviewed Coding Level of Care Code Acute Code for Chg Fwd Diagnoses Closed nondisplaced transverse fracture of left patella with routine healing, subsequent encounter S82.035D Encounter type: subsequent encounter Fracture morphology: transverse Fracture alignment: nondisplaced Fracture healing: with routine healing
[2024-08-17 20:54] LABS: Glucose Point of Care 265 mg/dL (70-110)
[2024-08-17] MEDS: insulin glargine 100 units/1 mL 40 UNIT SUBCUT (21:00)
[2024-08-17] MEDS: hydrocortisone 10 mg Tablet PO (21:00)
[2024-08-17] MEDS: ARIPiprazole 2 mg Tablet PO (21:00)
--- NOTE | 2024-08-17 22:32 | PC.NURSE ---
PT NOTIFIED THIS RN THAT SHE WAS HAVING INDIGESTION. THIS RN REACHED OUT TO MD DETECTIVE BUREAU CHIEF. THIS RN RECEIVED A ONE TIME ORDER FOR A GI COCKTAIL. THIS RN WILL GIVE TO THE PT ONCE VERIFIED BY PHARMACY.
[2024-08-17] MEDS: lidocaine 2% viscous 15 ML, aluminum-mag hydrox-simethicon 30 ML, sucralfate oral liq 1 GM PO (23:16)
[2024-08-18] VITALS (25 sets, daily range): BP systolic 138–221; BP diastolic 56–95; PULSE 64–110; RESP 14–28; TEMP 36.3–37.2; O2SAT 90–100
--- NOTE | 2024-08-18 | XR_ITS ---
WS: [id number] C-ARM RADIOGRAPHS LEFT KNEE; 3 IMAGES HISTORY: Open reduction internal fixation of left patella fracture COMPARISON: Radiograph 08/17/2024 Minimally displaced fracture noted along the superior patella. No imaging including hardware submitted. Fracture may be in slightly improved alignment. XR/XR knee LT 3V* [id number] IMPRESSION: On the imaging submitted minimally displaced fracture noted along the superior surface of the patella. No hardware is present.
[2024-08-18] MEDS: HYDROcodone-acetaminophen 10-325 mg Tablet 1 TAB PO ×3 (05:21→21:14)
[2024-08-18] MEDS: pantoprazole DR 40 mg Tablet PO (05:21)
[2024-08-18 06:05] LABS: Basophils % 0.5 %; Eosinophils # 0.2 10^3/uL (0.0-0.8); Eosinophils % 2.5 %; Hematocrit 42.9 % (36-47); Lymphocytes # 1.5 10^3/uL (0.8-4.8); Lymphocytes % 25.5 %; Mean Corpuscular HGB Conc 32.4 g/dL (30-55); Mean Corpuscular Hemoglobin 29.8 pg (27-33); Mean Corpuscular Volume 92.1 fl (85-98); Mean Platelet Volume 10.4 fL (7.4-10.4); Monocytes # 0.8 10^3/uL (0.2-0.9); Monocytes % 12.7 %; Neutrophils % 58.5 %; Nucleated Red Blood Cells % 0 %; Platelet Count 192 10^3/cmm (157-399); Red Blood Count 4.66 10^6/uL (3.85-5.65); Red Cell Distribution Width 14.7 % (12.1-15.1); White Blood Count 5.99 10^3/uL (3.29-11.43)
[2024-08-18 06:29] LABS: Alanine Aminotransferase 24 U/L (0-33); Albumin Level 3.8 g/dL (3.5-5.2); Alkaline Phosphatase 170 U/L (35-105); Anion Gap 15.3 (5-19); Aspartate Amino Transferase 20 U/L (0-32); Blood Urea Nitrogen 8 mg/dL (8-23); Calcium 10.1 mg/dL (8.5-10.5); Carbon Dioxide 30 mmol/L (22-29); Chloride 96 mmol/L (98-107); Globulin 3.3 g/dL (1.3-4.6); Glucose 243 mg/dL (65-115); Osmolality Calculated 290 mOsm/kg (285-295); Potassium 4.3 mmol/L (3.5-5.1); Sodium 137 mmol/L (136-145); Total Bilirubin 0.9 mg/dL (0.15-1.2); Total Protein 7.1 g/dL (6.6-8.7)
[2024-08-18 06:30] LABS: Glucose Point of Care 232 mg/dL (70-110)
[2024-08-18] MEDS: hydrocortisone 10 mg Tablet PO ×3 (08:36→21:14)
[2024-08-18 10:15] LABS: Glucose Point of Care 221 mg/dL (70-110)
[2024-08-18] MEDS: sodium chloride 0.9% 1,000 ML 30 ML IV (10:27)
[2024-08-18] MEDS: fentaNYL 50 mcg/mL INJ 2mL IVP ×3 (10:27→13:45)
--- NOTE | 2024-08-18 10:34 | ANES.PREANE2 ---
Pre-Anesthetic Assessment Height/Weight: Height 1.6 m Weight 97.976 kg Temp Pulse Resp BP Pulse Ox O2 Del Method O2 Flow Rate 97.4 F L 90 16 171/68 95 Nasal Cannula 2 08/18/24 10:08/18/24 10:08/18/24 10:08/18/24 10:09 08/18/24 10:08/18/24 10:08/18/24 10:09 Operation Date: 08/18/24 11:10 Proposed Procedures p ORIF Patella(Left) - Horace Joya, DO Familial anesthetic complications: None Was Beta Tracey taken within 24 hours: N/A Was Clonidine taken within 24 hours: N/A Last intake: Intake Last Liquid Date 08/17/24 Last Liquid Time 23:45 Last Solid Date 08/17/24 Last Solid Time 22:30 Social No alcohol and No tobacco Exam alert, oriented x 3, clear to auscultation bilaterally and regular rate & rhythm Airway Mallampati: Class II Pulmonary Sleep Apnea CV/HEM Coronary Artery Disease (stents), Congestive Heart Failure and Hypertension Metabolic Diabetes Mellitus and Morbid Obesity valarie's Anesthetic Plan ASA status: 4 Anesthesia: General Risk of > 500 ml blood loss (7ml/kg in children): No Medications/Allergies Home Medications ?Medication ?Instructions ?Recorded ?Confirmed ?Last Taken ?Type cholecalciferol (vitamin D3) 25 1,000 unit PO QPM 06/01/19 08/17/24 08/16/24 History mcg (1,000 unit) capsule cranberry 500 mg capsule 500 mg PO QPM 06/01/19 08/17/24 08/16/24 History ferrous sulfate 325 mg (65 mg 325 mg PO DAILY@06/21/19 08/17/24 06/08/24 History iron) tablet magnesium oxide 400 mg (241.3 mg 500 mg PO DAILY@02/14/21 08/17/24 08/16/24 History magnesium) tablet blood sugar diagnostic #400 ea 09/02/21 08/17/24 02/18/24 Rx lancets 21 gauge (Comfort EZ #400 ea 09/02/21 08/17/24 02/18/24 Rx Lancets) blood sugar diagnostic (Easymax 15 #400 ea 09/11/21 08/17/24 02/18/24 Rx test strips) ascorbic acid (vitamin C) 500 mg 500 mg PO QNOON 11/14/21 08/17/24 08/16/24 History chewable tablet (Vitamin C) vitamin E 670 mg (1,000 unit) 1,000 unit PO QAM 11/14/21 08/17/24 06/08/24 History capsule flash glucose scanning reader #1 ea 02/17/22 08/17/24 02/18/24 Rx (FreeStyle Tor 2 [place]) flash glucose sensor (FreeStyle #3 ea 02/17/22 08/17/24 02/18/24 Rx Tor 2 Sensor kit) esomeprazole magnesium 40 mg 40 mg PO QAM 05/19/22 08/17/24 06/08/24 History capsule,delayed release potassium chloride 8 mEq 24 meq PO QAM 05/19/22 08/17/24 08/16/24 History capsule,extended release lactulose 10 gram/15 mL oral 15 ml PO DAILY PRN Constipation 06/23/23 08/17/24 08/16/24 History solution nitroglycerin 0.4 mg sublingual 0.4 mg sublingual Q5M PRN chest 08/04/23 08/17/24 02/18/24 Rx tablet pain 30 days #30 tabs isosorbide mononitrate 120 mg 120 mg PO DAILY@12 #90 tabs 09/20/23 08/17/24 08/16/24 Rx tablet,extended release 24 hr melatonin 3 mg capsule 3 mg PO BEDTIME 11/18/23 08/17/24 08/16/24 History amlodipine 10 mg tablet 10 mg PO DAILY 06/09/24 08/17/24 08/16/24 History insulin lispro 100 unit/mL 28 unit SUBCUT TID 06/09/24 08/17/24 08/16/24 History subcutaneous pen (Humalog KwikPen (U-100) Insulin) torsemide 20 mg tablet 20 mg PO BID 06/09/24 08/17/24 08/16/24 History valsartan 320 mg tablet 320 mg PO QPM 06/09/24 08/17/24 08/16/24 History dhaval LT knee Brace #1 ea 06/30/24 08/17/24 Unknown Rx pen needle, diabetic 31 gauge x #400 ea 07/03/24 08/17/24 Unknown Rx 3/16 (BD Ultra-Fine Mini Pen Needle) hydrocodone 10 mg-acetaminophen 1 tab PO Q6H PRN pain 7 days #28 07/31/24 08/17/24 08/16/24 Rx 325 mg tablet tabs aripiprazole 2 mg tablet See Rx Instructions .Route 08/07/24 08/17/24 08/16/24 Rx .COMPLEX #30 tabs hydrocortisone 10 mg tablet See Rx Instructions .Route 08/07/24 08/17/24 08/16/24 Rx .COMPLEX #120 tabs diclofenac sodium 1 % topical gel 4 g topical QID #100 grams 08/09/24 08/17/24 Unknown Rx hinged knee brace left #1 ea 08/09/24 08/17/24 Unknown Rx insulin degludec 200 unit/mL (3 See Rx Instructions .Route 08/14/24 08/17/24 08/16/24 Rx mL) subcutaneous pen (Tresiba .COMPLEX #9 mL FlexTouch U-200 insulin) Allergies Allergy/AdvReac Type Severity Reaction Status Date / Time morphine Allergy Severe RESPIRATORY Verified 08/09/24 13:12 DISTRESS doxycycline Allergy Mild THROAT Verified 08/09/24 13:12 SWELLING duloxetine (From Cymbalta) Allergy Mild SWELLING, Verified 08/09/24 13:12 VOMITING metformin Allergy Mild THROAT Verified 08/09/24 13:12 SWELLING oxybutynin (From Oxytrol) Allergy Mild ALGY-Rash Verified 08/09/24 13:12 Penicillins Allergy Mild ALGY-Rash Verified 08/09/24 13:12 Sulfa (Sulfonamide Allergy Mild STOMACH Verified 08/09/24 13:12 Antibiotics) CRAMPS alprazolam (From Xanax) Allergy Unknown Unknown Verified 08/09/24 13:12 amitriptyline Allergy Unknown Unknown Verified 08/09/24 13:12 Barbiturates Allergy Unknown stomach Verified 08/09/24 13:12 cramps cefuroxime (From Ceftin) Allergy Unknown stomach Verified 08/09/24 13:12 cramps insulin detemir (From Allergy Unknown Unknown Verified 08/09/24 13:12 Levemir U-100 Insulin) levofloxacin (From Levaquin) Allergy Unknown Unknown Verified 08/09/24 13:12 liraglutide (From Victoza) Allergy Unknown Unknown Verified 08/09/24 13:12 metoclopramide (From Reglan) Allergy Unknown Unknown Verified 08/09/24 13:12 nitrofurantoin (From Allergy Unknown Unknown Verified 08/09/24 13:12 Macrobid) pregabalin (From Lyrica) Allergy Unknown Unknown Verified 08/09/24 13:12 divalproex sodium (From Allergy ALGY-Hives Verified 08/09/24 13:12 Depakote) gabapentin Allergy bone, Verified 08/09/24 13:12 muscle pain and mood swings venlafaxine Allergy Unknown Verified 08/09/24 13:12 meloxicam AdvReac Severe ADR-Vomitin Verified 08/09/24 13:12 g ciprofloxacin (From Cipro) AdvReac Mild stomach Verified 08/09/24 13:12 upset hydromorphone (From Dilaudid) AdvReac Unknown PT STATES Verified 08/09/24 13:12 IT MAKES ME CRAZY Current Medications Generic Name Dose Route Start Last Admin Trade Name Freq PRN Reason Stop Dose Admin Hydrocodone Bitart/Acetaminophen 1 tab 08/17/24 17:00 08/18/24 05:21 Hydrocodone-Acetaminophen 10-325 Mg Tablet PO 1 tab Q6H PRN Administration MODERATE PAIN Amlodipine Besylate 10 mg 08/18/24 09:00 08/18/24 08:28 Amlodipine 10 Mg Tablet PO Not Given DAILY TEJA Aripiprazole 2 mg 08/17/24 21:00 08/17/24 21:00 Aripiprazole 2 Mg Tablet PO 2 mg BEDTIME TEJA Administration Fentanyl 50 mcg 08/18/24 10:19 08/18/24 10:27 Fentanyl 50 Mcg/Ml Inj 2ml IVP 50 mcg Q10M PRN Administration Preop Pain Heparin Sodium (Porcine) 5,000 unit 08/17/24 16:30 08/18/24 07:06 Heparin 5,000 Unit/Ml Inj 1 Ml SUBCUT Not Given Q8H TEJA Hydrocortisone 10 mg 08/17/24 21:00 08/18/24 08:36 Hydrocortisone 10 Mg Tablet PO 10 mg QID TEJA Administration Sodium Chloride 1,000 mls @ 30 mls/hr 08/18/24 10:30 08/18/24 10:27 Sodium Chloride 0.9% IV 08/19/24 10:29 30 mls/hr .Q24H TEJA Administration Insulin Glargine 40 unit 08/17/24 21:00 08/17/24 21:00 Insulin Glargine 100 Units/1 Ml SUBCUT 40 unit BEDTIME TEJA Administration Insulin Human Lispro 0 unit 08/17/24 18:00 08/18/24 06:52 Insulin Lispro 100 Unit/1 Ml SUBCUT Not Given WM&BEDTIME TEJA Protocol Isosorbide Mononitrate 120 mg 08/18/24 09:00 08/18/24 08:28 Isosorbide Mononitrate Er 60 Mg Tablet PO Not Given DAILY TEJA Losartan Potassium 100 mg 08/17/24 18:00 08/17/24 17:29 Losartan 50 Mg Tablet PO 100 mg QPM TEJA Administration Pantoprazole Sodium 40 mg 08/18/24 09:00 08/18/24 08:[address] 40 Mg Tablet PO Not Given DAILY TEJA Pantoprazole Sodium 40 mg 08/18/24 06:00 08/18/24 05:[address] 40 Mg Tablet PO 40 mg QAM TEJA Administration Torsemide 20 mg 08/17/24 18:00 08/17/24 17:29 Torsemide 20 Mg Tablet PO 20 mg BID TEJA Administration PFSH Anesthesia Medical History C. 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 Left axis deviation. Normal [place] and QRS duration. Dyslipidemia (high LDL; low HDL) Benign essential hypertension with target blood pressure below 140/90 Atherosclerotic heart disease of [place] coronary artery without angina pectoris Status post left heart catheterization Recurrent UTI Gross hematuria Bipolar II disorder Surgical History Hx of bilateral hip replacements Hx of bladder repair surgery History of colonoscopy (~2017) History of coronary artery stent placement History of right knee surgery S/P appendectomy S/P hysterectomy S/P hernia repair S/P hip replacement Family History Family/Other Diabetes Other Cancer Social History Smoking and tobacco/nicotine status: former use of tobacco/nicotine Alcohol intake: never Substance/Drug Use: never Household members: spouse Marital status: Current occupational status: retired Data Anesthesia 08/18/24 05:12 08/18/24 05:12 Short CBC 08/17/24 08/18/24 Range/Units 11:40 05:12 WBC 10.25 5.99 (3.29-11.43) 10^3/uL Hgb 13.90 13.90 (11.27-16.99) g/dL Hct 42.8 42.9 (36-47) % MCV 91.5 92.1 (85-98) fl Plt Count 209 192 (157-399) 10^3/cmm Neut % (Auto) 66.8 58.5 % Neut # (Auto) 6.85 3.50 (1.8-7.7) 10^3/uL BMP 08/17/24 08/18/24 11:40 05:12 Sodium 129 L 137 Potassium 4.2 4.3 Chloride 91 L 96 L Carbon Dioxide 23 30 H BUN 7 L 8 Creatinine 0.4 L 0.5 Glucose 233 H 243 H Calcium 10.0 10.1 Liver Function 08/17/24 08/18/24 Range/Units 11:40 05:12 Total Bilirubin 1.1 0.9 (0.15-1.2) mg/dL AST 19 20 (0-32) U/L ALT 28 24 (0-33) U/L Alkaline Phosphatase 199 H 170 H (35-105) U/L Albumin 4.0 3.8 (3.5-5.2) g/dL Urine 08/17/24 Range/Units 13:10 Urine Color Yellow (Yellow) Urine Appearance Turbid A (CLEAR) Urine pH 7.0 (5-7) Ur Specific [place] 1.014 (1.005-1.030) Urine Protein Negative (Negative) Urine Glucose (UA) 2+ H (Normal) Urine Ketones 1+ H (Negative) Urine Nitrate Negative (Negative) Urine Bilirubin Negative (Negative) Ur Leukocyte Esterase Negative (Negative) Urine RBC 0-2 (0-2) /hpf Urine WBC 0-5 (0-5) /hpf Cardiac Studies: Echocardiogram 11/14/21 Sestamibi Stress Test (Cardiology) 07/09/23 Cardiac Event Monitor 08/09/23 Holter Monitor 04/29/21
--- NOTE | 2024-08-18 10:57 | ANES.PROC ---
Anesthesia Procedures Procedure/Date: 08/18/24 Nerve Block ^: Nerve Block 1: Main Anesthesia: general anesthesia Time Out Performed: Yes Consent: requested by attending/covering physician, from patient, from other, risks and benefits reviewed and patient agrees to proceed Nerve block location: adductor canal (L) Anesthesia monitors applied: pulse oximetry, EKG, BP cuff and oxygen Nerve block position: supine Anesthetic Used: ropivicaine 0.5% (25 ml) and with decadron (4 mg) Ultrasound used to: recognize landmarks and visualize and ID femerol nerve Nerve Stimulator Used?: No Interscalene/Femoral BLK: 4 stimuplex 21 g needle used for position and inplane approach, visualize local anesthetic spread and no vascular puncture identified Injection: neg aspiration of heme Patient Tolerated Procedure: well Complications: none
--- NOTE | 2024-08-18 11:01 | PC.OT ---
OT eval hold today 08/18 due to pt in surgery; will attempt OT eval again at later time.
[2024-08-18] MEDS: clindamycin 900 MG/50 ML PREMIX 100 MG IV ×2 (11:10→18:03)
--- NOTE | 2024-08-18 11:12 | W.PM.OPSUD ---
Surgery/Procedure H&P Update DATE OF PROCEDURE: August 18, 2024 DATE H&P PERFORMED: 08/17/24 H&P UPDATE INFORMATION: I have reviewed H&P completed within last 30 days, I have examined patient prior to procedure and No changes to prior documentation PLANNED PROCEDURE: Operation Date: 08/18/24 11:10 Proposed Procedures p ORIF Patella(Left) - Horace Joya DO
--- NOTE | 2024-08-18 12:41 | PM.PN ---
Subjective Subjective: No new clinical events overnight. Patient was NPO awaiting surgery time of my evaluation at time of my evaluation. Medications: Reviewed: Yes Vitals/I&O/Wt Last Vital Signs Temp 97.4 F L 08/18/24 10:09 Pulse 88 08/18/24 10:58 Resp 16 08/18/24 10:58 BP 181/76 08/18/24 10:58 Pulse Ox 97 08/18/24 10:58 O2 Del Method Nasal Cannula 08/18/24 10:58 O2 Flow Rate 2 08/18/24 10:58 08/17/24 08/18/24 08/18/24 22:59 06:59 14:59 Intake Total 480 / 480 300 / 780 50 / 50 Output Total 3000 / 3000 450 / 450 Balance -2520 / -2520 300 / -2220 -400 / -400 Weight last 48 hrs Weight 97.976 kg Weight 98.231 kg Weight 107.048 kg Physical Exam Narrative: Alert and oriented x 3 Head is normocephalic atraumatic Respirations are intact CVS - RRR Abd Soft NT/ND Patient's neurovascular intact bilateral lower extremities Immobilizer in place. Urinary Catheter Management: Germain: Cath Placed During This Visit: yes Reason for Continuing Indwelling Catheter: Perioperative Use in Selected Surgeries Urinary Catheter Date of Insertion: 08/17/24 Urinary Catheter Time of Insertion: 14:35 Data 08/18/24 05:12 08/18/24 05:12 A&P Assessment and plan (1) Hyponatremia: (2) Back pain, chronic: history of back surgery by Dr. Houser Qualifiers: Back pain laterality: bilateral Back pain location: low back pain Sciatica laterality: sciatica of right side Sciatica presence: with sciatica Qualified Code(s): M54.41 - Lumbago with sciatica, right side; G89.29 - Other chronic pain Plan Left Patellar Fracture - Patient sustained a left patellar fracture from a fall yesterday. - Immobilizer in place on the left leg. - Scheduled for surgery tomorrow with Dr. Joya Plan: 1. Surgery today 2. Post op management per ortho 3. Will likely need rehab at discharge Back Pain - Chronic back pain exacerbated by recent fall. - The Patient reports pain in lower back and side. Plan: 1. Continue pain management. Urinary Symptoms - The Patient reports burning sensation and difficulty urinating. - Urinary catheter in place. - UA negative for infection Plan: 1. Monitor Diabetes Mellitus - The Patient is on short acting which we will for surgery - On tresiba 68 units at bedtime Plan: 1. Reduced lantus does to 40 units at bedtime - Will increase based on glucose once on diabetic diet 2. Implement sliding scale insulin regimen. Will also gradully restarted scheduled meal time insulin as well once resumed on oral intake 3. Monitor blood glucose levels. Change to QACHS post operatively [place]'s Disease - Continue hydrocortisone as prescribed. Hypertension - Continue current antihypertensive medication. Hyperlipidemia - Continue Lipitor as prescribed. Coronary Artery Disease - History of three stents. - Currently off aspirin and Plavix due to bleeding risk. Plan: 1. No change to management Pain Management - Hydrocodone 10mg PO every 6 hours as needed for pain. - The Patient is allergic to morphine and dilaudid. Plan: 1. Continue hydrocodone 10mg PO every 6 hours as needed. PDMP PDMP Reviewed: Not Reviewed Attestations Medical Necessity Statement*: Will require over 2 midnight for management of above. Coding Level of Care Code Acute Code for [facility] Fwd Diagnoses Hyponatremia E87.1 Back pain, chronic M54.41; G89.29 Back pain laterality: bilateral Back pain location: low back pain Sciatica laterality: sciatica of right side Sciatica presence: with sciatica
--- NOTE | 2024-08-18 12:52 | PM.OP ---
Operative Report Date of procedure: August 18, 2024 Pre-op diagnosis: Left displaced patella fracture Post-op diagnosis: same Procedure done: Open reduction internal fixation of left patella fracture Surgeon: Horace Joya DO Estimated blood loss (mL): 5 Procedure: Open reduction internal fixation of left patella fracture Patient brought the operative suite after going anesthesia patient was placed in supine position. All areas impingement well-padded. Patient's prepped draped in also fashion. Skin incision was made over the left knee. The fracture was identified. Its superior pole patella fracture. Significant mount of comminution when open. At this point I elected to instead use the screws I used FiberWire.. Drill holes through the superior pole of the patella passed suture through the patella did a whipstitch through the quad tendon and brought it back down through the superior patella pole. Did the same thing on the both the left and the right side. So there were 3 holes will with 2 sutures. And then the 2 strands of suture 1 through the lateral holes and 1 through the medial holes. Then there were drill holes passed through the inferior part of the patella and then sutures were passed through this. The fracture was reduced and then the sutures FiberWire sutures were tied down. There is also comminuted fragments which were sutured back into position as well. AP lateral fluoroscopy ensured that the fracture is good position. Wounds were irrigated closed with Vicryl and Monocryl suture. Sterile dressings applied patient was transferred to the PACU in stable condition.
--- NOTE | 2024-08-18 12:52 | PC.SOCIAL ---
IMM UPDATED IMM dated and initialed, copy given to patient and copy placed in chart.
[2024-08-18] MEDS: labetalol 5 mg/mL SDV 20mL 10 MG IVP (13:19)
[2024-08-18 13:32] LABS: Glucose Point of Care 267 mg/dL (70-110)
--- NOTE | 2024-08-18 14:29 | PC.NURSE ---
1405 - Patient taken to room 269-1 via bed. VS Temp 99.4, HR 95, RR 18, BP 164/56, 94%.
--- NOTE | 2024-08-18 14:33 | PC.NURSE ---
Patient requesting to put a pillow under left knee. SRINATH Jones called Dr. Mahnaz simmons to put pillow under patient's left knee per patient request.
--- NOTE | 2024-08-18 14:49 | PC.NURSE ---
Pt returns from surgery. VSS. IMmobilizer in place left knee. at side.
[2024-08-18 16:59] LABS: Glucose Point of Care 397 mg/dL (70-110)
[2024-08-18] MEDS: TORSEmide 20 mg Tablet PO (18:02)
[2024-08-18] MEDS: heparin 5,000 unit/mL INJ 1 mL 5000 UNIT SUBCUT (18:02)
[2024-08-18] MEDS: losartan 50 mg Tablet 100 MG PO (18:02)
[2024-08-18] MEDS: insulin lispro 100 unit/1 mL SUBCUT ×2 (18:02→21:16)
[2024-08-18 21:04] LABS: Glucose Point of Care 423 mg/dL (70-110)
[2024-08-18] MEDS: ARIPiprazole 2 mg Tablet PO (21:14)
[2024-08-18] MEDS: insulin glargine 100 units/1 mL 40 UNIT SUBCUT (21:16)
[2024-08-18] MEDS: acetaminophen 325 mg Tablet 650 MG PO (22:58)
[2024-08-18 23:09] LABS: Glucose Point of Care 409 mg/dL (70-110)
[2024-08-19] VITALS (8 sets, daily range): BP systolic 121–159; BP diastolic 48–71; PULSE 73–95; RESP 14–22; TEMP 36.6–37; O2SAT 91–95
[2024-08-19 01:44] LABS: Glucose Point of Care 320 mg/dL (70-110)
[2024-08-19] MEDS: clindamycin 900 MG/50 ML PREMIX 100 MG IV ×2 (03:24→10:34)
[2024-08-19] MEDS: heparin 5,000 unit/mL INJ 1 mL 5000 UNIT SUBCUT ×3 (03:24→17:05)
[2024-08-19 04:14] LABS: Glucose Point of Care 344 mg/dL (70-110)
[2024-08-19 05:25] LABS: Basophils % 0.1 %; Hematocrit 41.2 % (36-47); Lymphocytes # 1.1 10^3/uL (0.8-4.8); Lymphocytes % 12.8 %; Mean Corpuscular HGB Conc 33.3 g/dL (30-55); Mean Corpuscular Hemoglobin 30.9 pg (27-33); Mean Corpuscular Volume 92.8 fl (85-98); Mean Platelet Volume 10.6 fL (7.4-10.4); Monocytes # 0.7 10^3/uL (0.2-0.9); Monocytes % 8.4 %; Neutrophils # 6.73 10^3/uL (1.8-7.7); Neutrophils % 78.5 %; Nucleated Red Blood Cells % 0 %; Platelet Count 188 10^3/cmm (157-399); Red Blood Count 4.44 10^6/uL (3.85-5.65); Red Cell Distribution Width 14.6 % (12.1-15.1); White Blood Count 8.58 10^3/uL (3.29-11.43)
[2024-08-19 05:44] LABS: Alanine Aminotransferase 23 U/L (0-33); Albumin Level 3.8 g/dL (3.5-5.2); Alkaline Phosphatase 160 U/L (35-105); Anion Gap 15.9 (5-19); Aspartate Amino Transferase 16 U/L (0-32); Blood Urea Nitrogen 15 mg/dL (8-23); Calcium 9.9 mg/dL (8.5-10.5); Carbon Dioxide 27 mmol/L (22-29); Chloride 96 mmol/L (98-107); Creatinine Clr Calc Pharmacy 61.7792; Globulin 3.3 g/dL (1.3-4.6); Glucose 354 mg/dL (65-115); Osmolality Calculated 295 mOsm/kg (285-295); Potassium 3.9 mmol/L (3.5-5.1); Sodium 135 mmol/L (136-145); Total Bilirubin 0.5 mg/dL (0.15-1.2); Total Protein 7.1 g/dL (6.6-8.7)
[2024-08-19 06:38] LABS: Glucose Point of Care 332 mg/dL (70-110)
[2024-08-19] MEDS: HYDROcodone-acetaminophen 10-325 mg Tablet 1 TAB PO ×4 (06:49→23:03)
[2024-08-19] MEDS: pantoprazole DR 40 mg Tablet PO ×2 (06:49→08:20)
[2024-08-19] MEDS: insulin glargine 100 units/1 mL 20 UNIT SUBCUT (06:50)
[2024-08-19] MEDS: insulin lispro 100 unit/1 mL SUBCUT ×4 (08:19→21:46)
[2024-08-19] MEDS: isosorbide mononitrate ER 60 mg Tablet 120 MG PO (08:19)
[2024-08-19] MEDS: TRAMadol 50 mg Tablet 100 MG PO ×3 (08:20→19:31)
[2024-08-19] MEDS: hydrocortisone 10 mg Tablet PO ×4 (08:20→21:45)
[2024-08-19] MEDS: TORSEmide 20 mg Tablet PO ×2 (08:20→17:06)
[2024-08-19] MEDS: amlodipine 10 mg Tablet PO (08:20)
[2024-08-19 11:30] LABS: Glucose Point of Care 397 mg/dL (70-110)
[2024-08-19] MEDS: insulin lispro 100 unit/1 mL 10 UNIT SUBCUT ×2 (11:39→17:05)
--- NOTE | 2024-08-19 15:12 | P.PN_ITS ---
Subjective 2 Medications: Reviewed: Yes Vitals/I&O/Wt Last Vital Signs Temp 97.8 F 08/19/24 11:56 Pulse 73 08/19/24 11:56 Resp 16 08/19/24 11:56 BP 136/67 08/19/24 11:56 Pulse Ox 95 08/19/24 11:56 O2 Del Method Room Air 08/19/24 11:56 O2 Flow Rate 3 08/18/24 17:01 08/19/24 08/19/24 08/19/24 06:59 14:59 22:59 Intake Total 50 / 922.5 110 / 110 Output Total 1000 / 2775 Balance -950 / -1852.5 110 / 110 Weight last 48 hrs Weight 98.792 kg Weight 97.976 kg Weight 98.231 kg Physical Exam 2 Narrative: Alert and oriented x 3 Head is normocephalic atraumatic Respirations are intact CVS - RRR Abd Soft NT/ND Patient's neurovascular intact bilateral lower extremities Immobilizer in place. Urinary Catheter Management: Cuevas: Cath Placed During This Visit: yes Reason for Continuing Indwelling Catheter: Other Urinary Catheter Date of Insertion: 08/17/24 Urinary Catheter Time of Insertion: 14:35 Data 08/19/24 04:33 08/19/24 04:33 A&P Assessment and plan (1) Hyponatremia: (2) Back pain, chronic: Qualifiers: Back pain laterality: bilateral Back pain location: low back pain S ciatica laterality: sciatica of right side Sciatica presence: with sciatica Q ualified Code(s): M54.41 - Lumbago with sciatica, right side; G89.29 - Other chronic pain Plan Left Patellar Fracture - Patient sustained a left patellar fracture from a fall yesterday. - Immobilizer in place on the left leg. - S/p surgery Plan: 1. Continue post op managment as per ortho 2. PT on consult 3. Pain control Back Pain - Chronic back pain exacerbated by recent fall. - The Patient reports pain in lower back and side. Plan: 1. Continue pain management. Urinary Symptoms - The Patient reports burning sensation and difficulty urinating. - Urinary catheter in place. - UA negative for infection Plan: 1. Monitor off abx. 2. Will leonor d/c cuevas once able to increase mobility Diabetes Mellitus - The Patient is on short acting which we will for surgery - On tresiba 68 units at bedtime - Now becomeing hyperglycemic . Plan: 1. Reduced lantus dose increased to 50unit qhs. Blood sugars have been over 300. Additional lantus was given this am and humalog 10 units TID meals was added. 2. Sliding scale insulin [place]'s Disease - Continue hydrocortisone as prescribed. Hypertension - Continue current antihypertensive medication. Hyperlipidemia - Continue Lipitor as prescribed. Coronary Artery Disease - History of three stents. - Currently off aspirin and Plavix due to bleeding risk. Plan: 1. No change to management Pain Management - Hydrocodone 10mg PO every 6 hours as needed for pain. - The Patient is allergic to morphine and dilaudid. Plan: 1. Continue hydrocodone 10mg PO every 6 hours as needed. Disposition: Will need placement at discharge PDMP PDMP Reviewed: Not Reviewed Attestations 2 Medical Necessity Statement*: Will require over 2 midnight for management of above. Coding Level of Care Code Acute Code for [facility] Diagnoses Hyponatremia E87.1 Back pain, chronic M54.41; G89.29 Back pain laterality: bilateral Back pain location: low back pain Sciatica laterality: sciatica of right side Sciatica presence: with sciatica
[2024-08-19] MEDS: losartan 50 mg Tablet 100 MG PO (17:06)
[2024-08-19 17:28] LABS: Glucose Point of Care 304 mg/dL (70-110)
[2024-08-19 20:53] LABS: Glucose Point of Care 302 mg/dL (70-110)
[2024-08-19] MEDS: ARIPiprazole 2 mg Tablet PO (21:45)
[2024-08-19] MEDS: insulin glargine 100 units/1 mL 50 UNIT SUBCUT (21:46)
[2024-08-20] VITALS (8 sets, daily range): BP systolic 130–167; BP diastolic 60–73; PULSE 93–102; RESP 18–20; TEMP 36.8–37.4; O2SAT 91–94
[2024-08-20] MEDS: TRAMadol 50 mg Tablet 100 MG PO ×3 (02:22→14:23)
[2024-08-20] MEDS: heparin 5,000 unit/mL INJ 1 mL 5000 UNIT SUBCUT ×3 (02:23→17:28)
[2024-08-20] MEDS: HYDROcodone-acetaminophen 10-325 mg Tablet 1 TAB PO ×3 (05:03→21:02)
[2024-08-20] MEDS: pantoprazole DR 40 mg Tablet PO ×2 (05:04→08:31)
[2024-08-20 05:55] LABS: Basophils % 0.4 %; Eosinophils # 0.2 10^3/uL (0.0-0.8); Eosinophils % 1.5 %; Hematocrit 37.6 % (36-47); Lymphocytes # 1.9 10^3/uL (0.8-4.8); Lymphocytes % 18.6 %; Mean Corpuscular HGB Conc 32.7 g/dL (30-55); Mean Corpuscular Volume 91.7 fl (85-98); Mean Platelet Volume 11.1 fL (7.4-10.4); Monocytes # 1.1 10^3/uL (0.2-0.9); Monocytes % 10.7 %; Neutrophils # 6.86 10^3/uL (1.8-7.7); Neutrophils % 68.6 %; Nucleated Red Blood Cells % 0 %; Platelet Count 194 10^3/cmm (157-399); Red Cell Distribution Width 14.4 % (12.1-15.1)
[2024-08-20 06:22] LABS: Alanine Aminotransferase 19 U/L (0-33); Albumin Level 3.7 g/dL (3.5-5.2); Alkaline Phosphatase 146 U/L (35-105); Anion Gap 14.7 (5-19); Aspartate Amino Transferase 17 U/L (0-32); Blood Urea Nitrogen 16 mg/dL (8-23); Calcium 9.4 mg/dL (8.5-10.5); Carbon Dioxide 29 mmol/L (22-29); Chloride 95 mmol/L (98-107); Creatinine Clr Calc Pharmacy 62.4904; Globulin 2.5 g/dL (1.3-4.6); Glucose 195 mg/dL (65-115); Osmolality Calculated 287 mOsm/kg (285-295); Potassium 3.7 mmol/L (3.5-5.1); Sodium 135 mmol/L (136-145); Total Bilirubin 0.6 mg/dL (0.15-1.2); Total Protein 6.2 g/dL (6.6-8.7)
[2024-08-20 06:30] LABS: Glucose Point of Care 216 mg/dL (70-110)
[2024-08-20] MEDS: insulin lispro 100 unit/1 mL 10 UNIT SUBCUT ×3 (06:45→17:28)
--- NOTE | 2024-08-20 08:19 | P.PN_ITS ---
Subjective 2 Subjective: Plan pain left knee Vitals/I&O/Wt Last Vital Signs Temp 98.3 F 08/20/24 07:43 Pulse 98 08/20/24 07:43 Resp 18 08/20/24 07:43 BP 167/72 08/20/24 07:43 Pulse Ox 92 08/20/24 07:43 O2 Del Method Room Air 08/20/24 07:43 O2 Flow Rate 3 08/18/24 17:01 08/19/24 08/20/24 08/20/24 22:59 06:59 14:59 Intake Total 300 / 410 480 / 890 Output Total 900 / 900 1750 / 2650 Balance -600 / -490 -1270 / -1760 Weight last 48 hrs Weight 222 lb 4.8 oz Weight 217 lb 12.8 oz Physical Exam 2 Narrative: Dressing clean dry and intact immobilizer in place Urinary Catheter Management: Germain: Cath Placed During This Visit: yes Reason for Continuing Indwelling Catheter: Other Urinary Catheter Date of Insertion: 08/17/24 Urinary Catheter Time of Insertion: 14:35 Data 08/20/24 04:33 08/20/24 04:33 A&P Assessment and plan (1) Closed fracture of left patella: Postop day #2 left patella ORIF Currently on heparin for DVT prophylaxis okay to switch to aspirin. Qualifiers: Encounter type: subsequent encounter Fracture alignment: nondisplaced Fracture healing: with routine healing Fracture morphology: transverse Q ualified Code(s): S82.035D - Nondisplaced transverse fracture of left patella, subsequent encounter for closed fracture with routine healing PDMP PDMP Reviewed: Not Reviewed Attestations 2 Medical Necessity Statement*: Per primary service Coding Level of Care Code Acute Code for [facility] Fwd Diagnoses Closed nondisplaced transverse fracture of left patella with routine healing, subsequent encounter S82.035D Encounter type: subsequent encounter Fracture alignment: nondisplaced Fracture healing: with routine healing Fracture morphology: transverse
[2024-08-20] MEDS: diazePAM 5 mg Tablet PO (08:31)
[2024-08-20] MEDS: hydrocortisone 10 mg Tablet PO ×4 (08:31→20:32)
[2024-08-20] MEDS: isosorbide mononitrate ER 60 mg Tablet 120 MG PO (08:31)
[2024-08-20] MEDS: TORSEmide 20 mg Tablet PO ×2 (08:31→17:28)
[2024-08-20] MEDS: amlodipine 10 mg Tablet PO (08:31)
[2024-08-20] MEDS: insulin lispro 100 unit/1 mL SUBCUT ×4 (08:32→21:12)
[2024-08-20] MEDS: insulin glargine 100 units/1 mL 20 UNIT SUBCUT (08:32)
[2024-08-20 11:12] LABS: Glucose Point of Care 187 mg/dL (70-110)
--- NOTE | 2024-08-20 16:15 | P.PN_ITS ---
Subjective 2 Subjective: No new clinical events overnight. Patient was sitting in chair. Discussed with her regarding removing Cuevas catheter. She stated was continued to have pain however somewhat stable at the time of my evaluation. Medications: Reviewed: Yes Vitals/I&O/Wt Last Vital Signs Temp 98.6 F 08/20/24 16:07 Pulse 102 H 08/20/24 16:07 Resp 18 08/20/24 16:07 BP 147/73 08/20/24 16:07 Pulse Ox 93 08/20/24 16:07 O2 Del Method Room Air 08/20/24 16:07 O2 Flow Rate 3 08/18/24 17:01 08/20/24 08/20/24 08/20/24 06:59 14:59 22:59 Intake Total 480 / 890 840 / 840 Output Total 1750 / 2650 Balance -1270 / -1760 840 / 840 Weight last 48 hrs Weight 100.834 kg Weight 98.792 kg Physical Exam 2 Narrative: Alert and oriented x 3 Head is normocephalic atraumatic Respirations are intact CVS - RRR Abd Soft NT/ND Patient's neurovascular intact bilateral lower extremities Immobilizer in place. Urinary Catheter Management: Cuevas: Cath Placed During This Visit: yes Reason for Continuing Indwelling Catheter: Other Urinary Catheter Date of Insertion: 08/17/24 Urinary Catheter Time of Insertion: 14:35 Data 08/20/24 04:33 08/20/24 04:33 A&P Assessment and plan (1) Hyponatremia: (2) Back pain, chronic: Qualifiers: Back pain laterality: bilateral Back pain location: low back pain S ciatica laterality: sciatica of right side Sciatica presence: with sciatica Q ualified Code(s): M54.41 - Lumbago with sciatica, right side; G89.29 - Other chronic pain Plan Left Patellar Fracture - Patient sustained a left patellar fracture from a fall yesterday. - Immobilizer in place on the left leg. - Post day 2 Plan: 1. Continue post op managment as per ortho 2. PT on consult 3. Pain control 4. D/C Cuevas catheter Back Pain - Chronic back pain exacerbated by recent fall. - The Patient reports pain in lower back and side. Plan: 1. Continue pain management. Urinary Symptoms - The Patient reports burning sensation and difficulty urinating. - Urinary catheter in place. - UA negative for infection Plan: 1. Monitor off abx. 2. Will likely d/c cuevas today Diabetes Mellitus - The Patient is on short acting which we will for surgery - On tresiba 68 units at bedtime - Now becoming hyperglycemic . Plan: 1. Reduced lantus dose increased to 50unit qhs. Blood sugars have been over 300. Additional lantus was given this am and humalog 10 units TID meals was added. 2. 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 Hypertension - Continue current antihypertensive medication. Hyperlipidemia - Continue Lipitor as prescribed. Coronary Artery Disease - History of three stents. - Currently off aspirin and Plavix due to bleeding risk. Plan: 1. No change to management Pain Management - Hydrocodone 10mg PO every 6 hours as needed for pain. - The Patient is allergic to morphine and dilaudid. Plan: 1. Continue hydrocodone 10mg PO every 6 hours as needed. Disposition: Will need placement at discharge PDMP PDMP Reviewed: Not Reviewed Attestations 2 Medical Necessity Statement*: Will require over 2 midnight for management of above. Coding Level of Care Code Acute Code for [facility] Diagnoses Hyponatremia E87.1 Back pain, chronic M54.41; G89.29 Back pain laterality: bilateral Back pain location: low back pain Sciatica laterality: sciatica of right side Sciatica presence: with sciatica
[2024-08-20 16:20] LABS: Glucose Point of Care 161 mg/dL (70-110)
[2024-08-20] MEDS: losartan 50 mg Tablet 100 MG PO (17:28)
--- NOTE | 2024-08-20 19:03 | PC.NURSE ---
Pt refused to have cuevas catheter removed this evening and stated she would be willing to let us remove it in the morning. Notified nursing staff.
[2024-08-20] MEDS: ARIPiprazole 2 mg Tablet PO (20:32)
[2024-08-20] MEDS: insulin glargine 100 units/1 mL 50 UNIT SUBCUT (21:02)
[2024-08-20 21:03] LABS: Glucose Point of Care 249 mg/dL (70-110)
[2024-08-21] VITALS (7 sets, daily range): BP systolic 101–131; BP diastolic 62–92; PULSE 64–118; RESP 16–19; TEMP 36.3–37.1; O2SAT 90–97
[2024-08-21] MEDS: heparin 5,000 unit/mL INJ 1 mL 5000 UNIT SUBCUT ×3 (00:17→16:45)
[2024-08-21] MEDS: HYDROcodone-acetaminophen 10-325 mg Tablet 1 TAB PO ×3 (05:52→20:21)
[2024-08-21] MEDS: insulin lispro 100 unit/1 mL 10 UNIT SUBCUT ×3 (05:53→17:10)
[2024-08-21] MEDS: pantoprazole DR 40 mg Tablet PO ×2 (05:53→07:56)
[2024-08-21 06:26] LABS: Glucose Point of Care 204 mg/dL (70-110)
--- NOTE | 2024-08-21 06:52 | P.PN_ITS ---
Subjective 2 Subjective: Pain getting better patient sitting up in chair. Vitals/I&O/Wt Last Vital Signs Temp 98.8 F 08/21/24 04:00 Pulse 95 08/21/24 04:00 Resp 18 08/21/24 04:00 BP 131/63 08/21/24 04:00 Pulse Ox 91 08/21/24 04:00 O2 Del Method Room Air 08/21/24 04:00 O2 Flow Rate 3 08/18/24 17:01 08/20/24 08/20/24 08/21/24 14:59 22:59 06:59 Intake Total 840 / 840 680 / 1520 Output Total 700 / 700 975 / 1675 Balance 840 / 840 -20 / 820 -975 / -155 Weight last 48 hrs Weight 221 lb 3.2 oz Weight 222 lb 4.8 oz Physical Exam 2 Narrative: Knee immobilizer in place Urinary Catheter Management: Germain: Cath Placed During This Visit: yes, but has since been removed by the nurse Reason for Continuing Indwelling Catheter: Decision to DC Catheter Urinary Catheter Date of Insertion: 08/17/24 Urinary Catheter Time of Insertion: 14:35 Date Urinary Catheter Removed: 08/21/24 Time Urinary Catheter Discontinued: 06:19 Data 08/20/24 04:33 08/20/24 04:33 A&P Assessment and plan (1) Closed fracture of left patella: Postop day 3 left patella fracture ORIF Nonweightbearing Discharge planning Currently she is on heparin for DVT prophylaxis would switch to Eliquis or aspirin for discharge PDMP PDMP Reviewed: Not Reviewed Attestations 2 Medical Necessity Statement*: Per primary service Coding Level of Care Code Acute Code for [facility] Fwd Diagnoses Closed fracture of left patella S82.002A
[2024-08-21] MEDS: TORSEmide 20 mg Tablet PO ×2 (07:55→16:45)
[2024-08-21] MEDS: hydrocortisone 10 mg Tablet PO ×4 (07:55→20:22)
[2024-08-21] MEDS: isosorbide mononitrate ER 60 mg Tablet 120 MG PO (07:55)
[2024-08-21] MEDS: insulin lispro 100 unit/1 mL SUBCUT ×4 (07:55→21:16)
[2024-08-21] MEDS: TRAMadol 50 mg Tablet 100 MG PO ×2 (07:56→16:45)
[2024-08-21] MEDS: amlodipine 10 mg Tablet PO (07:56)
[2024-08-21] MEDS: insulin glargine 100 units/1 mL 20 UNIT SUBCUT (07:57)
[2024-08-21 11:14] LABS: Glucose Point of Care 280 mg/dL (70-110)
--- NOTE | 2024-08-21 11:37 | P.PN_ITS ---
Subjective 2 Subjective: No new clinical events overnight. She was stating at the time of my evaluation she as feeling fine. Pain controlled with hydrocodone and ultram. Germain catheter was removed and she was able to void without any problem. Medications: Reviewed: Yes Vitals/I&O/Wt Last Vital Signs Temp 98.2 F 08/21/24 07:21 Pulse 98 08/21/24 07:21 Resp 16 08/21/24 07:21 BP 129/92 08/21/24 07:21 Pulse Ox 90 08/21/24 07:21 O2 Del Method Room Air 08/21/24 07:21 O2 Flow Rate 3 08/18/24 17:01 08/20/24 08/21/24 08/21/24 22:59 06:59 14:59 Intake Total 680 / 1520 178 / 178 Output Total 700 / 700 975 / 1675 Balance -20 / 820 -975 / -155 178 / 178 Weight last 48 hrs Weight 100.335 kg Weight 100.834 kg Physical Exam 2 Narrative: Alert and oriented x 3 Head is normocephalic atraumatic Respirations are intact CVS - RRR Abd Soft NT/ND Patient's neurovascular intact bilateral lower extremities Immobilizer in place. Urinary Catheter Management: Germain: Cath Placed During This Visit: yes, but has since been removed by the nurse Reason for Continuing Indwelling Catheter: Decision to DC Catheter Urinary Catheter Date of Insertion: 08/17/24 Urinary Catheter Time of Insertion: 14:35 Date Urinary Catheter Removed: 08/21/24 Time Urinary Catheter Discontinued: 06:19 Data 08/20/24 04:33 08/20/24 04:33 A&P Assessment and plan (1) Hyponatremia: (2) Back pain, chronic: Qualifiers: Back pain laterality: bilateral Back pain location: low back pain S ciatica laterality: sciatica of right side Sciatica presence: with sciatica Q ualified Code(s): M54.41 - Lumbago with sciatica, right side; G89.29 - Other chronic pain Plan Left Patellar Fracture - Patient sustained a left patellar fracture from a fall yesterday. - Immobilizer in place on the left leg. - Post day 3 Plan: 1. Continue post op managment as per ortho 2. PT on consult 3. Pain control 4. Non-weight bearing 5. Working on placement Back Pain - Chronic back pain exacerbated by recent fall. - The Patient reports pain in lower back and side. Plan: 1. Continue pain management. Urinary Symptoms - The Patient reports burning sensation and difficulty urinating. - Urinary catheter in place. - UA negative for infection Plan: 1. Monitor off abx. Diabetes Mellitus - The Patient is on short acting which we will for surgery - On tresiba 68 units at bedtime - Now becoming hyperglycemic . Plan: 1. Reduced lantus dose increased to 50unit qhs. Blood sugars have been over 300. Additional lantus was given this am and humalog 10 units TID meals was added. 2. Sliding scale insulin [place]'s Disease - Continue hydrocortisone as prescribed. Hypertension - Continue current antihypertensive medication. Hyperlipidemia - Continue Lipitor as prescribed. Coronary Artery Disease - History of three stents. - Currently off aspirin and Plavix due to bleeding risk. Plan: 1. No change to management Pain Management - Hydrocodone 10mg PO every 6 hours as needed for pain. - The Patient is allergic to morphine and dilaudid. Plan: 1. Continue hydrocodone 10mg PO every 6 hours as needed. Disposition: Will need placement at discharge PDMP PDMP Reviewed: Not Reviewed Attestations 2 Medical Necessity Statement*: Will require over 2 midnight for management of above. Coding Level of Care Code Acute Code for [facility] Diagnoses Hyponatremia E87.1 Back pain, chronic M54.41; G89.29 Back pain laterality: bilateral Back pain location: low back pain Sciatica laterality: sciatica of right side Sciatica presence: with sciatica
--- NOTE | 2024-08-21 13:36 | PC.NURSE ---
Pt noted to have a few circles of red, non raised rash to bilateral arms. Pt complains that rash does itch and she just noticed it come up. Pt has not received any new medication today. Currently eating lunch of mashed potatoes. Pt denies need for Benadryl at this time. Dr. Horton advised.
[2024-08-21] MEDS: losartan 50 mg Tablet 100 MG PO (16:45)
[2024-08-21 16:55] LABS: Glucose Point of Care 261 mg/dL (70-110)
[2024-08-21] MEDS: ARIPiprazole 2 mg Tablet PO (20:22)
[2024-08-21 21:02] LABS: Glucose Point of Care 283 mg/dL (70-110)
[2024-08-21] MEDS: insulin glargine 100 units/1 mL 50 UNIT SUBCUT (21:17)
[2024-08-22] VITALS (7 sets, daily range): BP systolic 102–117; BP diastolic 52–74; PULSE 86–101; RESP 16–18; TEMP 36.4–36.9; O2SAT 91–94
[2024-08-22] MEDS: heparin 5,000 unit/mL INJ 1 mL 5000 UNIT SUBCUT ×4 (00:09→23:44)
[2024-08-22] MEDS: hydrocortisone 10 mg Tablet PO ×5 (01:46→20:59)
[2024-08-22] MEDS: diphenhydrAMINE 25 mg Capsule PO (01:46)
[2024-08-22] MEDS: HYDROcodone-acetaminophen 10-325 mg Tablet 1 TAB PO (04:38)
--- NOTE | 2024-08-22 05:02 | PM.MISC ---
Miscellaneous Note Note: Per nurse, patient broke out in hives around 2am, so she was given benadryl and hydrocortisone. Per nurse, patient breaking out in hives this morning at 5am. Solumedrol 40mg IVP x 1 and scheduled anders
[2024-08-22] MEDS: fexofenadine 60 mg Tablet PO (05:17)
[2024-08-22] MEDS: pantoprazole DR 40 mg Tablet PO ×2 (05:17→08:07)
[2024-08-22] MEDS: methylPREDNISolone sod succ 40 mg/mL INJ IVP (05:17)
[2024-08-22 06:21] LABS: Glucose Point of Care 240 mg/dL (70-110)
[2024-08-22] MEDS: insulin lispro 100 unit/1 mL 10 UNIT SUBCUT ×3 (06:24→17:05)
[2024-08-22] MEDS: insulin lispro 100 unit/1 mL SUBCUT ×4 (08:07→21:11)
[2024-08-22] MEDS: isosorbide mononitrate ER 60 mg Tablet 120 MG PO (08:07)
[2024-08-22] MEDS: TORSEmide 20 mg Tablet PO (08:07)
[2024-08-22] MEDS: amlodipine 10 mg Tablet PO (08:07)
[2024-08-22] MEDS: insulin glargine 100 units/1 mL 20 UNIT SUBCUT (08:07)
[2024-08-22] MEDS: TRAMadol 50 mg Tablet 100 MG PO ×3 (08:09→23:44)
[2024-08-22 10:26] LABS: Glucose Point of Care 344 mg/dL (70-110)
[2024-08-22 14:18] LABS: Basophils % 0.1 %; Hematocrit 35.1 % (36-47); Lymphocytes # 0.4 10^3/uL (0.8-4.8); Lymphocytes % 3.8 %; Mean Corpuscular Hemoglobin 30.1 pg (27-33); Mean Corpuscular Volume 90.9 fl (85-98); Mean Platelet Volume 10.2 fL (7.4-10.4); Monocytes # 0.5 10^3/uL (0.2-0.9); Monocytes % 4.2 %; Neutrophils # 10.07 10^3/uL (1.8-7.7); Neutrophils % 91.5 %; Nucleated Red Blood Cells % 0 %; Platelet Count 204 10^3/cmm (157-399); Red Blood Count 3.86 10^6/uL (3.85-5.65); Red Cell Distribution Width 14.3 % (12.1-15.1)
[2024-08-22 14:42] LABS: Estmated Average Glucose 189; Hemoglobin A1C 8.2 % (4.0-6.0)
[2024-08-22 14:59] LABS: Alanine Aminotransferase 17 U/L (0-33); Alkaline Phosphatase 107 U/L (35-105); Anion Gap 15.1 (5-19); Aspartate Amino Transferase 20 U/L (0-32); Blood Urea Nitrogen 42 mg/dL (8-23); Calcium 9.6 mg/dL (8.5-10.5); Carbon Dioxide 26 mmol/L (22-29); Chloride 87 mmol/L (98-107); Creatinine Clr Calc Pharmacy 30.8581; Glucose 372 mg/dL (65-115); Iron 11 ug/dL (37-145); Osmolality Calculated 284 mOsm/kg (285-295); Percent Saturation 7.5 % (20-50); Potassium 4.1 mmol/L (3.5-5.1); Sodium 124 mmol/L (136-145); Thyroid Stimulating Hormone 0.35 uIU/mL (0.27-4.20); Total Bilirubin 0.4 mg/dL (0.15-1.2); Total Iron Binding Capacity 146 mcg/dl; Unsaturated Iron Binding 135 ug/dL (112-347); Vitamin B12 672 pg/mL (232-1245)
--- NOTE | 2024-08-22 15:17 | P.PN_ITS ---
Subjective 2 Subjective: Hospital course, labs appreciated. Patient seen laying comfortably in bed. Denies any nausea, vomiting, headache. Appreciate physical therapy evaluation. Patient did develop hives overnight for which she required hydrocortisone and Benadryl after receiving hydrocodone tablet. Seems to be improving currently. Medications: Reviewed: Yes Vitals/I&O/Wt Last Vital Signs Temp 97.5 F L 08/22/24 11:16 Pulse 98 08/22/24 11:16 Resp 18 08/22/24 11:16 BP 102/53 08/22/24 11:16 Pulse Ox 94 08/22/24 11:16 O2 Del Method Room Air 08/22/24 11:16 O2 Flow Rate 3 08/18/24 17:01 08/22/24 08/22/24 08/22/24 06:59 14:59 22:59 Intake Total 600 / 1258 480 / 480 Balance 600 / 1258 480 / 480 Weight last 48 hrs Weight 98.611 kg Weight 98.611 kg Weight 100.335 kg Physical Exam 2 Narrative: Alert and oriented x 3 Head is normocephalic atraumatic Respirations are intact CVS - RRR Abd Soft NT/ND Patient's neurovascular intact bilateral lower extremities Immobilizer in place. Urinary Catheter Management: Germain: Cath Placed During This Visit: yes, but has since been removed by the nurse Reason for Continuing Indwelling Catheter: Decision to DC Catheter Urinary Catheter Date of Insertion: 08/17/24 Urinary Catheter Time of Insertion: 14:35 Date Urinary Catheter Removed: 08/21/24 Time Urinary Catheter Discontinued: 06:19 Data 08/22/24 14:08 08/22/24 14:08 A&P Assessment and plan (1) Closed fracture of left patella: (2) Hyponatremia: (3) Acute kidney injury: (4) Back pain, chronic: Qualifiers: Back pain laterality: bilateral Back pain location: low back pain S ciatica laterality: sciatica of right side Sciatica presence: with sciatica Q ualified Code(s): M54.41 - Lumbago with sciatica, right side; G89.29 - Other chronic pain (5) Diabetes type 2, controlled: Qualifiers: Diabetes mellitus penitentiary insulin use: without salvage determiner use Diabetes mellitus complication status: with hyperglycemia Qualified Code(s): E11.65 - Type 2 diabetes mellitus with hyperglycemia (6) Hypertension: (7) Atherosclerotic heart disease of [place] coronary artery without angina pectoris: Qualifiers: [place] vs. transplanted heart: [place] heart Qualified Code(s): I25.10 - Atherosclerotic heart disease of [place] coronary artery without angina pectoris (8) Low serum cortisol level: Plan Left Patellar Fracture - Patient sustained a left patellar fracture from a fall yesterday. - Immobilizer in place on the left leg. - Post day 3 Plan: 1. Continue post op managment as per ortho 2. PT on consult 3. Pain control 4. Non-weight bearing 5. Working on placement Back Pain - Chronic back pain exacerbated by recent fall. - The Patient reports pain in lower back and side. Plan: 1. Continue pain management. Urinary Symptoms - The Patient reports burning sensation and difficulty urinating. - Urinary catheter in place. - UA negative for infection Plan: 1. Monitor off abx. Diabetes Mellitus - The Patient is on short acting which we will for surgery - On tresiba 68 units at bedtime - Now becoming hyperglycemic . Plan: 1. Reduced lantus dose increased to 50unit qhs. Blood sugars have been over 300. Additional lantus was given this am and humalog 10 units TID meals was added. 2. 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 Hypertension - Continue current antihypertensive medication. Hyperlipidemia - Continue Lipitor as prescribed. Coronary Artery Disease - History of three stents. - Currently off aspirin and Plavix due to bleeding risk. Plan: 1. No change to management Pain Management - Hydrocodone 10mg PO every 6 hours as needed for pain. - The Patient is allergic to morphine and dilaudid. Plan: 1. Continue hydrocodone 10mg PO every 6 hours as needed. Disposition: Will need placement at discharge Plan for the day: Currently in immobilizer. Weightbearing, physical therapy as per orthopedic pain. Hold off on hydrocodone given an allergic reaction overnight. Continue with tramadol 100 mg every 6 hours as needed. 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 Given low dose do not need any Bactrim prophylaxis. Does have worsening hyponatremia. Baseline seems to be around 1 27-1 31. Currently 124. Repeat BMP. If remains low will start on oral salt tablet 1 g twice daily. Patient developing mild ANGELY. Creatinine up to 1.6. Start on NS at 75 cc/h. Hold off on home dose of torsemide. Check iron panel. Hemoglobin stable. Depending on the iron panel will plan to start on IV iron versus oral iron. Monitor blood sugars. Continue with Lantus 20 units every morning, 50 units every afternoon. Lispro 10 units 3 times daily along with sliding scale. Goal blood pressure less than 140/90 mmHg. Discontinue Valium. 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 Diagnoses Closed fracture of left patella S82.002A Hyponatremia E87.1 Acute kidney injury N17.9 Back pain, chronic M54.41; G89.29 Back pain laterality: bilateral Back pain location: low back pain Sciatica laterality: sciatica of right side Sciatica presence: with sciatica Controlled type 2 diabetes mellitus with hyperglycemia, without long-term current use of insulin E11.65 Diabetes mellitus salvage determiner insulin use: without penitentiary use Diabetes mellitus complication status: with hyperglycemia Hypertension I10 Atherosclerosis of [place] coronary artery of [place] heart without angina pectoris I25.10 [place] vs. transplanted heart: [place] heart Low serum cortisol level E27.40
[2024-08-22 16:58] LABS: Glucose Point of Care 359 mg/dL (70-110)
[2024-08-22] MEDS: losartan 50 mg Tablet 100 MG PO (17:05)
[2024-08-22] MEDS: sodium chloride 1 gm Tablet PO (17:06)
[2024-08-22] MEDS: sodium chloride 0.9% 1,000 ML 75 ML IV (17:06)
[2024-08-22 17:18] LABS: Anion Gap 17.9 (5-19); Blood Urea Nitrogen 44 mg/dL (8-23); Calcium 9.7 mg/dL (8.5-10.5); Carbon Dioxide 25 mmol/L (22-29); Chloride 87 mmol/L (98-107); Creatinine Clr Calc Pharmacy 32.9153; Glucose 351 mg/dL (65-115); Osmolality Calculated 287 mOsm/kg (285-295); Potassium 3.9 mmol/L (3.5-5.1); Sodium 126 mmol/L (136-145)
[2024-08-22] MEDS: ARIPiprazole 2 mg Tablet PO (20:58)
[2024-08-22 21:05] LABS: Glucose Point of Care 358 mg/dL (70-110)
[2024-08-22] MEDS: insulin glargine 100 units/1 mL 50 UNIT SUBCUT (21:11)
[2024-08-23] VITALS (7 sets, daily range): BP systolic 129–138; BP diastolic 63–71; PULSE 79–101; RESP 17–20; TEMP 36.6–37.1; O2SAT 93–97
[2024-08-23] MEDS: acetaminophen 325 mg Tablet 650 MG PO ×2 (03:10→20:49)
[2024-08-23] MEDS: pantoprazole DR 40 mg Tablet PO (06:07)
[2024-08-23] MEDS: TRAMadol 50 mg Tablet 100 MG PO ×4 (06:07→22:27)
[2024-08-23] MEDS: sodium chloride 0.9% 1,000 ML 75 ML IV ×2 (06:16→20:37)
[2024-08-23 06:22] LABS: Glucose Point of Care 156 mg/dL (70-110)
[2024-08-23 06:51] LABS: Basophils % 0.2 %; Hematocrit 33.2 % (36-47); Lymphocytes # 0.7 10^3/uL (0.8-4.8); Mean Corpuscular HGB Conc 32.8 g/dL (30-55); Mean Corpuscular Hemoglobin 29.8 pg (27-33); Mean Corpuscular Volume 90.7 fl (85-98); Mean Platelet Volume 10.7 fL (7.4-10.4); Monocytes # 1.1 10^3/uL (0.2-0.9); Monocytes % 10.7 %; Neutrophils # 8.21 10^3/uL (1.8-7.7); Neutrophils % 81.5 %; Nucleated Red Blood Cells % 0 %; Platelet Count 216 10^3/cmm (157-399); Red Blood Count 3.66 10^6/uL (3.85-5.65); Red Cell Distribution Width 13.9 % (12.1-15.1); White Blood Count 10.08 10^3/uL (3.29-11.43)
[2024-08-23 07:22] LABS: Alanine Aminotransferase 18 U/L (0-33); Albumin Level 2.9 g/dL (3.5-5.2); Alkaline Phosphatase 124 U/L (35-105); Anion Gap 14.4 (5-19); Aspartate Amino Transferase 20 U/L (0-32); Blood Urea Nitrogen 39 mg/dL (8-23); Calcium 9.8 mg/dL (8.5-10.5); Carbon Dioxide 29 mmol/L (22-29); Chloride 96 mmol/L (98-107); Creatinine Clr Calc Pharmacy 54.8167; Globulin 3.2 g/dL (1.3-4.6); Glucose 135 mg/dL (65-115); Osmolality Calculated 293 mOsm/kg (285-295); Potassium 3.4 mmol/L (3.5-5.1); Sodium 136 mmol/L (136-145); Total Bilirubin 0.5 mg/dL (0.15-1.2); Total Protein 6.1 g/dL (6.6-8.7)
[2024-08-23 07:33] LABS: Folate Level 11.5 ng/mL (4.8-37.3)
[2024-08-23 07:35] LABS: Chol HDL Ratio 4.39 mg/dL (0.0-4.40); Cholesterol 145 mg/dL (0-200); HDL Cholesterol 33 mg/dL (60-100); LDL Cholesterol Calculated 76 mg/dL (50-129); Triglycerides 180 mg/dL (0-150); VLDL Cholestrol Calculation 36 mg/dL (0-30)
[2024-08-23] MEDS: insulin lispro 100 unit/1 mL 10 UNIT SUBCUT ×3 (08:42→17:12)
[2024-08-23] MEDS: isosorbide mononitrate ER 60 mg Tablet 120 MG PO (08:42)
[2024-08-23] MEDS: insulin lispro 100 unit/1 mL SUBCUT ×4 (08:42→20:36)
[2024-08-23] MEDS: hydrocortisone 10 mg Tablet PO ×4 (08:43→20:36)
[2024-08-23] MEDS: amlodipine 10 mg Tablet PO (08:43)
[2024-08-23] MEDS: heparin 5,000 unit/mL INJ 1 mL 5000 UNIT SUBCUT ×2 (08:43→17:13)
[2024-08-23] MEDS: sodium chloride 1 gm Tablet PO ×2 (08:43→17:13)
[2024-08-23] MEDS: insulin glargine 100 units/1 mL 40 UNIT SUBCUT (09:05)
[2024-08-23 11:55] LABS: Glucose Point of Care 322 mg/dL (70-110)
--- NOTE | 2024-08-23 12:32 | PC.SOCIAL ---
IMM updated IMM dated and initialed, copy given to patient and copy placed in chart
[2024-08-23 16:54] LABS: Glucose Point of Care 152 mg/dL (70-110)
[2024-08-23] MEDS: losartan 50 mg Tablet 100 MG PO (17:13)
--- NOTE | 2024-08-23 17:41 | PM.PN ---
Subjective Subjective: No acute events overnight. Patient has remained hemodynamically stable and afebrile. As per nursing staff overnight he started having more copious drainage through the wound needing multiple dressing changes. Patient stating her leg is hurting slightly more today than yesterday. Denies any nausea, vomiting. Medications: Reviewed: Yes Vitals/I&O/Wt Last Vital Signs Temp 98.7 F 08/23/24 15:41 Pulse 83 08/23/24 15:41 Resp 17 08/23/24 15:41 BP 136/71 08/23/24 17:13 Pulse Ox 93 08/23/24 15:41 O2 Del Method Room Air 08/23/24 15:41 O2 Flow Rate 3 08/18/24 17:01 08/23/24 08/23/24 08/23/24 06:59 14:59 22:59 Intake Total 1107.5 / 1827.5 120 / 120 Balance 1107.5 / 1777.5 120 / 120 Weight last 48 hrs Weight 98.475 kg Weight 98.611 kg Weight 98.611 kg Physical Exam Narrative: Alert and oriented x 3 Head is normocephalic atraumatic Respirations are intact CVS - RRR Abd Soft NT/ND Patient's neurovascular intact bilateral lower extremities Immobilizer in place. Urinary Catheter Management: Germain: Cath Placed During This Visit: yes, but has since been removed by the nurse Reason for Continuing Indwelling Catheter: Decision to DC Catheter Urinary Catheter Date of Insertion: 08/17/24 Urinary Catheter Time of Insertion: 14:35 Date Urinary Catheter Removed: 08/21/24 Time Urinary Catheter Discontinued: 06:19 Data 08/23/24 05:53 08/23/24 05:53 Micro: Microbiology 08/23/24 08:30 Gram Stain - Final Knee - #1 A&P Assessment and plan (1) Closed fracture of left patella: (2) Hyponatremia: (3) Uncontrolled type 2 diabetes mellitus: Qualifiers: Glycemic state: with hypoglycemia Coma presence: without coma Qualified Code(s): E11.649 - Type 2 diabetes mellitus with hypoglycemia without coma (4) Wound discharge: (5) Acute kidney injury: (6) Hypertension: (7) Atherosclerotic heart disease of [place] coronary artery without angina pectoris: Qualifiers: [place] vs. transplanted heart: [place] heart Qualified Code(s): I25.10 - Atherosclerotic heart disease of [place] coronary artery without angina pectoris (8) Low serum cortisol level: (9) Chronic use of steroids: (10) Back pain, chronic: Qualifiers: Back pain laterality: bilateral Back pain location: low back pain Sciatica laterality: sciatica of right side Sciatica presence: with sciatica Qualified Code(s): M54.41 - Lumbago with sciatica, right side; G89.29 - Other chronic pain Plan Left Patellar Fracture - Patient sustained a left patellar fracture from a fall yesterday. - Immobilizer in place on the left leg. -Postop from 08/18 Plan: 1. Continue post op managment as per ortho 2. PT on consult 3. Pain control 4. Non-weight bearing 5. Working on placement Back Pain - Chronic back pain exacerbated by recent fall. - The Patient reports pain in lower back and side. Plan: 1. Continue pain management. Urinary Symptoms - The Patient reports burning sensation and difficulty urinating. - Urinary catheter in place. - UA negative for infection Plan: 1. Monitor off abx. Diabetes Mellitus - The Patient is on short acting which we will for surgery - On tresiba 68 units at bedtime - Now becoming hyperglycemic . Plan: 1. Reduced lantus dose increased to 50unit qhs. Blood sugars have been over 300. Additional lantus was given this am and humalog 10 units TID meals was added. 2. 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 Hypertension - Continue current antihypertensive medication. Hyperlipidemia - Continue Lipitor as prescribed. Coronary Artery Disease - History of three stents. - Currently off aspirin and Plavix due to bleeding risk. Plan: 1. No change to management Pain Management - Hydrocodone 10mg PO every 6 hours as needed for pain. - The Patient is allergic to morphine and dilaudid. Plan: 1. Continue hydrocodone 10mg PO every 6 hours as needed. Disposition: Will need placement at discharge Plan for the day: Currently in immobilizer. Weightbearing, physical therapy as per orthopedic pain. Increased drainage as per nursing staff overnight. Soaked multiple bandages. Purulent and copious as per nursing staff. Not foul-smelling. Patient is immunocompromised given being on chronic steroids. Discussed in detail with the surgeon. For now hold off on IV antibiotics. Check blood cultures and wound cultures. Continue with tramadol 100 mg every 6 hours as needed. History of Spangle's disease. Continue with hydrocortisone at home dose. Given low dose do not need any Bactrim prophylaxis. Sodium level improving today. Continue with IV hydration and oral salt tablets for now. Repeat BMP in AM. Blood sugars elevated. Change dose of morning Lantus to 40 units, evening to 50 units. Continue with sliding scale along with 10 units 3 times daily. ANGELY resolved. Continue to monitor BMP. PDMP PDMP Reviewed: Not Reviewed Attestations Medical Necessity Statement*: Requires further hospitalization for management of left patella fracture postop care, extensive postoperative wound discharge in a patient with history of Zeb's disease chronically on steroids, hyponatremia, uncontrolled type 2 diabetes mellitus Diagnoses Closed fracture of left patella S82.002A Hyponatremia E87.1 Uncontrolled type 2 diabetes mellitus with hypoglycemia without coma E11.649 Glycemic state: with hypoglycemia Coma presence: without coma Wound discharge T14.8XXA Acute kidney injury N17.9 Hypertension I10 Atherosclerosis of [place] coronary artery of [place] heart without angina pectoris I25.10 [place] vs. transplanted heart: [place] heart Low serum cortisol level E27.40 Chronic use of steroids Back pain, chronic M54.41; G89.29 Back pain laterality: bilateral Back pain location: low back pain Sciatica laterality: sciatica of right side Sciatica presence: with sciatica
[2024-08-23] MEDS: potassium chloride ER 20 mEq Tablet 40 MEQ PO (18:00)
[2024-08-23 20:33] LABS: Glucose Point of Care 169 mg/dL (70-110)
[2024-08-23] MEDS: ARIPiprazole 2 mg Tablet PO (20:36)
[2024-08-23] MEDS: insulin glargine 100 units/1 mL 50 UNIT SUBCUT (20:36)
[2024-08-24] VITALS (7 sets, daily range): BP systolic 145–181; BP diastolic 52–68; PULSE 84–105; RESP 15–18; TEMP 36.2–37.2; O2SAT 93–97
[2024-08-24] MEDS: heparin 5,000 unit/mL INJ 1 mL 5000 UNIT SUBCUT ×3 (01:33→15:54)
[2024-08-24 04:45] LABS: Basophils % 0.1 %; Eosinophils # 0.1 10^3/uL (0.0-0.8); Eosinophils % 0.6 %; Hematocrit 37.7 % (36-47); Lymphocytes # 1.6 10^3/uL (0.8-4.8); Lymphocytes % 18.9 %; Mean Corpuscular HGB Conc 32.1 g/dL (30-55); Mean Corpuscular Hemoglobin 29.9 pg (27-33); Mean Corpuscular Volume 93.1 fl (85-98); Mean Platelet Volume 9.8 fL (7.4-10.4); Monocytes # 1.2 10^3/uL (0.2-0.9); Monocytes % 14.2 %; Neutrophils # 5.66 10^3/uL (1.8-7.7); Neutrophils % 65.6 %; Nucleated Red Blood Cells % 0 %; Platelet Count 279 10^3/cmm (157-399); Red Blood Count 4.05 10^6/uL (3.85-5.65); Red Cell Distribution Width 14.2 % (12.1-15.1); White Blood Count 8.62 10^3/uL (3.29-11.43)
[2024-08-24 05:03] LABS: Alanine Aminotransferase 25 U/L (0-33); Albumin Level 3.2 g/dL (3.5-5.2); Alkaline Phosphatase 125 U/L (35-105); Anion Gap 17.4 (5-19); Aspartate Amino Transferase 23 U/L (0-32); Blood Urea Nitrogen 20 mg/dL (8-23); Calcium 9.8 mg/dL (8.5-10.5); Carbon Dioxide 25 mmol/L (22-29); Chloride 99 mmol/L (98-107); Creatinine Clr Calc Pharmacy 63.3116; Globulin 3.8 g/dL (1.3-4.6); Glucose 76 mg/dL (65-115); Osmolality Calculated 287 mOsm/kg (285-295); Potassium 3.4 mmol/L (3.5-5.1); Sodium 138 mmol/L (136-145); Total Bilirubin 0.6 mg/dL (0.15-1.2)
[2024-08-24] MEDS: TRAMadol 50 mg Tablet 100 MG PO ×3 (06:15→20:47)
[2024-08-24] MEDS: pantoprazole DR 40 mg Tablet PO (06:16)
[2024-08-24 06:17] LABS: Glucose Point of Care 77 mg/dL (70-110)
--- NOTE | 2024-08-24 08:05 | P.PN_ITS ---
Subjective 2 Subjective: Patient having some drainage from her left knee there is slight erythema over the knee. Patient is not having any fevers. Vitals/I&O/Wt Last Vital Signs Temp 99.0 F 08/24/24 07:33 Pulse 84 08/24/24 07:33 Resp 16 08/24/24 07:33 BP 145/64 08/24/24 07:33 Pulse Ox 93 08/24/24 07:33 O2 Del Method Room Air 08/24/24 07:33 O2 Flow Rate 3 08/18/24 17:01 08/23/24 08/24/24 08/24/24 22:59 06:59 14:59 Intake Total 1000 / 1120 400 / 1520 Output Total 250 / 250 300 / 550 Balance 750 / 870 100 / 970 Weight last 48 hrs Weight 227 lb 8 oz Weight 217 lb 1.6 oz Physical Exam 2 Narrative: Wound with some drainage and some redness. We took the Steri-Strips off at this point we will have them change dressing twice a day to make sure that the wound is not macerated. Urinary Catheter Management: Germain: Cath Placed During This Visit: yes, but has since been removed by the nurse Reason for Continuing Indwelling Catheter: Decision to DC Catheter Urinary Catheter Date of Insertion: 08/17/24 Urinary Catheter Time of Insertion: 14:35 Date Urinary Catheter Removed: 08/21/24 Time Urinary Catheter Discontinued: 06:19 Data 08/24/24 04:28 08/24/24 04:28 Micro: Microbiology 08/24/24 04:34 Blood Culture - Preliminary Blood SPECIMEN COLLECTED 08/24/24 04:28 Blood Culture - Preliminary Blood SPECIMEN COLLECTED 08/23/24 08:30 Gram Stain - Final Knee - #1 A&P Assessment and plan (1) Closed fracture of left patella: Patient is postop day #7 ORIF left patella. She does not have any hardware in its all sutures. Continue to monitor wound Put on IV antibiotics PDMP PDMP Reviewed: Not Reviewed Attestations 2 Medical Necessity Statement*: Wound management Coding Level of Care Code Acute Code for Chg Fwd Diagnoses Closed fracture of left patella S82.002A
--- NOTE | 2024-08-24 08:30 | PHA.VACGOAL ---
Vancomycin Goal - Goal Vancomycin Goal:: 10-15 mg/L Vancomycin Indication:: SSTI - Therapy Current therapy:: Meropenem Day of therpy:: Day [1]of [] . Actual body weight (kg): 103.192 kg - Data Labs: WBC 8.62 10^3/uL (3.29-11.43) 08/24/24 04:28 RBC 4.05 10^6/uL (3.85-5.65) 08/24/24 04:28 Hgb 12.10 g/dL (11.27-16.99) 08/24/24 04:28 Hct 37.7 % (36-47) 08/24/24 04:28 MCV 93.1 fl (85-98) 08/24/24 04:28 MCH 29.9 pg (27-33) 08/24/24 04:28 MCHC 32.1 g/dL (30-55) 08/24/24 04:28 RDW 14.2 % (12.1-15.1) 08/24/24 04:28 Sodium 138 mmol/L (136-145) 08/24/24 04:28 Potassium 3.4 mmol/L (3.5-5.1) L 08/24/24 04:28 Chloride 99 mmol/L (98-107) 08/24/24 04:28 Carbon Dioxide 25 mmol/L (22-29) 08/24/24 04:28 Anion Gap 17.4 (5-19) 08/24/24 04:28 BUN 20 mg/dL (8-23) 08/24/24 04:28 Creatinine 0.7 mg/dL (0.5-0.9) 08/24/24 04:28 GFR Calculation Not Reportable 08/24/24 04:28 Treatment plan:: new consult Regimen:: New start vancomycin for surgical site infection. Started on maintenance dose of 1000 mg q18h.
[2024-08-24] MEDS: amlodipine 10 mg Tablet PO (08:48)
[2024-08-24] MEDS: hydrocortisone 10 mg Tablet PO ×4 (08:48→20:47)
[2024-08-24] MEDS: sodium chloride 1 gm Tablet PO ×2 (08:48→17:29)
[2024-08-24] MEDS: isosorbide mononitrate ER 60 mg Tablet 120 MG PO (08:48)
[2024-08-24] MEDS: insulin glargine 100 units/1 mL 40 UNIT SUBCUT (08:49)
[2024-08-24] MEDS: meropenem 1,000 mg SDV 1000 MG IVP ×2 (08:55→15:54)
[2024-08-24] MEDS: VANCOMYCIN ADD-Vantage 1,000 MG in 0.9% NaCl ADD-Vantage 250 ML 250 MG IV (08:55)
[2024-08-24 10:40] LABS: MRSA PCR OZH (swab) NOT DETECTED (Not Detecte)
[2024-08-24 11:07] LABS: Glucose Point of Care 67 mg/dL (70-110)
[2024-08-24 11:07] LABS: Glucose Point of Care 65 mg/dL (70-110)
[2024-08-24 11:22] LABS: Glucose Point of Care 100 mg/dL (70-110)
--- NOTE | 2024-08-24 13:06 | P.PN_ITS ---
Subjective 2 Subjective: No acute events overnight. Patient lying comfortably in bed. States pain is well-controlled. Denies any nausea, vomiting, headache. Continues to have saturation through the dressing. Hemodynamically stable and afebrile in last 24 hours. Blood pressure slightly elevated. Medications: Reviewed: Yes Vitals/I&O/Wt Last Vital Signs Temp 97.2 F L 08/24/24 11:09 Pulse 105 H 08/24/24 11:09 Resp 15 08/24/24 11:09 BP 181/61 08/24/24 11:09 Pulse Ox 95 08/24/24 11:09 O2 Del Method Room Air 08/24/24 11:09 O2 Flow Rate 3 08/18/24 17:01 08/23/24 08/24/24 08/24/24 22:59 06:59 14:59 Intake Total 1000 / 1120 400 / 1520 490 / 490 Output Total 250 / 250 300 / 550 200 / 200 Balance 750 / 870 100 / 970 290 / 290 Weight last 48 hrs Weight 103.192 kg Weight 98.475 kg Physical Exam 2 Narrative: Alert and oriented x 3 Head is normocephalic atraumatic Respirations are intact CVS - RRR Abd Soft NT/ND Patient's neurovascular intact bilateral lower extremities Immobilizer in place. Urinary Catheter Management: Germain: Cath Placed During This Visit: yes, but has since been removed by the nurse Reason for Continuing Indwelling Catheter: Decision to DC Catheter Urinary Catheter Date of Insertion: 08/17/24 Urinary Catheter Time of Insertion: 14:35 Date Urinary Catheter Removed: 08/21/24 Time Urinary Catheter Discontinued: 06:19 Data 08/24/24 04:28 08/24/24 04:28 Micro: Microbiology 08/23/24 08:30 Anaerobic Culture - Preliminary Knee - #1 08/23/24 08:30 Gram Stain - Final Knee - #1 Wound Culture - Preliminary Gram Negative Rods 08/24/24 04:34 Blood Culture - Preliminary Blood SPECIMEN COLLECTED 08/24/24 04:28 Blood Culture - Preliminary Blood SPECIMEN COLLECTED A&P Assessment and plan (1) Closed fracture of left patella: (2) Hyponatremia: (3) Uncontrolled type 2 diabetes mellitus: Qualifiers: Glycemic state: with hypoglycemia Coma presence: without coma Q ualified Code(s): E11.649 - Type 2 diabetes mellitus with hypoglycemia without coma (4) Wound discharge: (5) Acute kidney injury: (6) Hypertension: (7) Atherosclerotic heart disease of [place] coronary artery without angina pectoris: Qualifiers: [place] vs. transplanted heart: [place] heart Qualified Code(s): I25.10 - Atherosclerotic heart disease of [place] coronary artery without angina pectoris (8) Low serum cortisol level: (9) Chronic use of steroids: (10) Back pain, chronic: Qualifiers: Back pain laterality: bilateral Back pain location: low back pain S ciatica laterality: sciatica of right side Sciatica presence: with sciatica Q ualified Code(s): M54.41 - Lumbago with sciatica, right side; G89.29 - Other chronic pain (11) Postoperative wound cellulitis: Plan Left Patellar Fracture - Patient sustained a left patellar fracture from a fall yesterday. - Immobilizer in place on the left leg. -Postop from 08/18 Plan: 1. Continue post op managment as per ortho 2. PT on consult 3. Pain control 4. Non-weight bearing 5. Working on placement Back Pain - Chronic back pain exacerbated by recent fall. - The Patient reports pain in lower back and side. Plan: 1. Continue pain management. Urinary Symptoms - The Patient reports burning sensation and difficulty urinating. - Urinary catheter in place. - UA negative for infection Plan: 1. Monitor off abx. Diabetes Mellitus - The Patient is on short acting which we will for surgery - On tresiba 68 units at bedtime - Now becoming hyperglycemic . Plan: 1. Reduced lantus dose increased to 50unit qhs. Blood sugars have been over 300. Additional lantus was given this am and humalog 10 units TID meals was added. 2. 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 Hypertension - Continue current antihypertensive medication. Hyperlipidemia - Continue Lipitor as prescribed. Coronary Artery Disease - History of three stents. - Currently off aspirin and Plavix due to bleeding risk. Plan: 1. No change to management Pain Management - Hydrocodone 10mg PO every 6 hours as needed for pain. - The Patient is allergic to morphine and dilaudid. Plan: 1. Continue hydrocodone 10mg PO every 6 hours as needed. Disposition: Will need placement at discharge Plan for the day: Continue work with physical therapy. Appreciate orthopedic recommendation. Patient continues to have discharge from the wound. Concern for wound cellulitis. No plan for debridement versus arthrocentesis for now. Follow-up wound cultures. Currently growing gram-negative rods. Plan for hardware as an outpatient. For now start on IV antibiotics with meropenem and vancomycin. Check MRSA swab. Will consult infectious disease for further recommendations. Patient will most likely need IV antibiotics as an outpatient. Goal blood pressure less than 140/90 mmHg. Blood pressure is elevated. Start on Coreg 6.25 mg twice daily. Blood sugars better controlled. Mild hypoglycemic today morning. Change Lantus dose to 40 units twice daily. Continue with sliding scale with meals. Hold off on at bedtime dose. Discontinue standing 3 times daily 10 units ordered. Continue salt tablets. Discontinue IV fluids. Continue with tramadol for pain control. Sodium level stable today. Potassium again 3.4. Replaced 40 mg oral. PDMP PDMP Reviewed: Not Reviewed Attestations 2 Medical Necessity Statement*: Requires further hospitalization for management of left patella fracture, post OR, wound cellulitis, uncontrolled hypertension and type 2 diabetes mellitus in a patient with baseline adrenal insufficiency well. Discharge planning is sought Diagnoses Closed fracture of left patella S82.002A Hyponatremia E87.1 Uncontrolled type 2 diabetes mellitus with hypoglycemia without coma E11.649 Glycemic state: with hypoglycemia Coma presence: without coma Wound discharge T14.8XXA Acute kidney injury N17.9 Hypertension I10 Atherosclerosis of [place] coronary artery of [place] heart without angina pectoris I25.10 [place] vs. transplanted heart: [place] heart Low serum cortisol level E27.40 Chronic use of steroids Back pain, chronic M54.41; G89.29 Back pain laterality: bilateral Back pain location: low back pain Sciatica laterality: sciatica of right side Sciatica presence: with sciatica Postoperative wound cellulitis T81.49XA
[2024-08-24] MEDS: potassium chloride ER 20 mEq Tablet 40 MEQ PO (14:11)
[2024-08-24 17:06] LABS: Glucose Point of Care 91 mg/dL (70-110)
[2024-08-24] MEDS: carvedilol 6.25 mg Tablet PO (17:29)
[2024-08-24] MEDS: losartan 50 mg Tablet 100 MG PO (17:29)
[2024-08-24] MEDS: ARIPiprazole 2 mg Tablet PO (20:48)
[2024-08-24 20:54] LABS: Glucose Point of Care 113 mg/dL (70-110)
[2024-08-24 20:54] LABS: Glucose Point of Care 84 mg/dL (70-110)
[2024-08-24 21:49] LABS: Acinetobacter baumannii Not Detected (NOT DETECT); Bacteroides fragilis Not Detected (NOT DETECT); CTX-M Not Detected (NOT DETECT); Citrobacter Not Detected (NOT DETECT); Cronobacter sakazakii Not Detected (NOT DETECT); Enterobacter cloacae complex Not Detected (NOT DETECT); Enterobacter non cloacae Not Detected (NOT DETECT); Fusobacterium necrophorum Not Detected (NOT DETECT); Fusobacterium nucleatum Not Detected (NOT DETECT); Haemophilus influenzae Not Detected (NOT DETECT); IMP Resistance Gene Not Detected (NOT DETECT); KPC Resistance Gene Not Detected (NOT DETECT); Klebsiella pneumoniae group Detected (NOT DETECT); Morganella morganii Not Detected (NOT DETECT); NDM Resistance Gene Not Detected (NOT DETECT); Neisseria meningitidis Not Detected (NOT DETECT); OXA Resistance Gene Not Detected (NOT DETECT); Pan Candida Not Detected (NOT DETECT); Pan Gram-Positive Not Detected (NOT DETECT); Proteus mirabilis Not Detected (NOT DETECT); Pseudomonas aeruginosa Not Detected (NOT DETECT); Salmonella Not Detected (NOT DETECT); Serratia Not Detected (NOT DETECT); Serratia marcescens Not Detected (NOT DETECT); Stenotrophomonas maltophilia Not Detected (NOT DETECT); VIM Resistance Gene Not Detected (NOT DETECT)
[2024-08-25] VITALS (7 sets, daily range): BP systolic 98–182; BP diastolic 48–78; PULSE 73–86; RESP 16–18; TEMP 36.7–36.9; O2SAT 93–98
[2024-08-25] MEDS: heparin 5,000 unit/mL INJ 1 mL 5000 UNIT SUBCUT ×3 (00:30→17:25)
[2024-08-25] MEDS: meropenem 1,000 mg SDV 1000 MG IVP ×3 (00:30→17:26)
[2024-08-25] MEDS: acetaminophen 325 mg Tablet 650 MG PO ×3 (00:31→15:44)
[2024-08-25] MEDS: VANCOMYCIN ADD-Vantage 1,000 MG in 0.9% NaCl ADD-Vantage 250 ML 250 MG IV (02:24)
[2024-08-25] MEDS: TRAMadol 50 mg Tablet 100 MG PO ×3 (02:24→20:18)
[2024-08-25 05:06] LABS: Basophils % 0.2 %; Eosinophils # 0.1 10^3/uL (0.0-0.8); Eosinophils % 1.3 %; Lymphocytes # 1.3 10^3/uL (0.8-4.8); Lymphocytes % 20.9 %; Mean Corpuscular HGB Conc 31.6 g/dL (30-55); Mean Corpuscular Hemoglobin 29.7 pg (27-33); Mean Corpuscular Volume 94.1 fl (85-98); Mean Platelet Volume 9.8 fL (7.4-10.4); Monocytes % 15.6 %; Neutrophils # 3.79 10^3/uL (1.8-7.7); Neutrophils % 60.9 %; Nucleated Red Blood Cells % 0 %; Platelet Count 246 10^3/cmm (157-399); Red Cell Distribution Width 14.5 % (12.1-15.1); White Blood Count 6.22 10^3/uL (3.29-11.43)
[2024-08-25 05:22] LABS: Alanine Aminotransferase 22 U/L (0-33); Albumin Level 2.5 g/dL (3.5-5.2); Alkaline Phosphatase 109 U/L (35-105); Aspartate Amino Transferase 20 U/L (0-32); Blood Urea Nitrogen 11 mg/dL (8-23); Carbon Dioxide 26 mmol/L (22-29); Chloride 103 mmol/L (98-107); Creatinine Clr Calc Pharmacy 63.3116; Globulin 3.3 g/dL (1.3-4.6); Glucose 89 mg/dL (65-115); Osmolality Calculated 283 mOsm/kg (285-295); Sodium 137 mmol/L (136-145); Total Bilirubin 0.4 mg/dL (0.15-1.2); Total Protein 5.8 g/dL (6.6-8.7)
[2024-08-25] MEDS: pantoprazole DR 40 mg Tablet PO (06:03)
[2024-08-25 06:35] LABS: Glucose Point of Care 86 mg/dL (70-110)
--- NOTE | 2024-08-25 06:53 | PM.PN ---
Subjective Subjective: Patient's pain is improved today from yesterday. Vitals/I&O/Wt Last Vital Signs Temp 98.5 F 08/25/24 04:00 Pulse 75 08/25/24 04:00 Resp 18 08/25/24 04:00 BP 149/66 08/25/24 04:00 Pulse Ox 95 08/25/24 04:00 O2 Del Method Room Air 08/25/24 04:00 O2 Flow Rate 3 08/18/24 17:01 08/24/24 08/24/24 08/25/24 14:59 22:59 06:59 Intake Total 490 / 490 1480 / 1970 730 / 2700 Output Total 200 / 200 2 Balance 290 / 290 1480 / 1770 728 / 2498 Weight last 48 hrs Weight 227 lb 8 oz Physical Exam Narrative: Dressing was taken down dressing had minimal to no drainage on it. Wound with less erythema than yesterday. Urinary Catheter Management: Germain: Cath Placed During This Visit: yes, but has since been removed by the nurse Reason for Continuing Indwelling Catheter: Decision to DC Catheter Urinary Catheter Date of Insertion: 08/17/24 Urinary Catheter Time of Insertion: 14:35 Date Urinary Catheter Removed: 08/21/24 Time Urinary Catheter Discontinued: 06:19 Data 08/25/24 04:47 08/25/24 04:47 Micro: Microbiology 08/24/24 04:34 Blood Culture - Preliminary Blood NEGATIVE TO DATE 08/24/24 04:28 Blood Culture - Preliminary Blood Klebsiella pneumoniae 08/23/24 08:30 Anaerobic Culture - Preliminary Knee - #1 08/23/24 08:30 Gram Stain - Final Knee - #1 Wound Culture - Preliminary Gram Negative Rods A&P Assessment and plan (1) Closed fracture of left patella: Wound is improving. At this point continue current treatment Up with therapy PDMP PDMP Reviewed: Not Reviewed Attestations Medical Necessity Statement*: Per primary service Coding Level of Care Code Acute Code for [facility] Fwd Diagnoses Closed fracture of left patella S82.002A
[2024-08-25] MEDS: hydrocortisone 10 mg Tablet PO ×4 (09:19→20:18)
[2024-08-25] MEDS: carvedilol 6.25 mg Tablet PO ×2 (09:20→17:25)
[2024-08-25] MEDS: amlodipine 10 mg Tablet PO (09:20)
[2024-08-25] MEDS: isosorbide mononitrate ER 60 mg Tablet 120 MG PO (09:21)
[2024-08-25] MEDS: sodium chloride 1 gm Tablet PO ×2 (09:21→17:26)
[2024-08-25] MEDS: insulin glargine 100 units/1 mL 40 UNIT SUBCUT (09:35)
[2024-08-25 11:36] LABS: Glucose Point of Care 212 mg/dL (70-110)
[2024-08-25] MEDS: insulin lispro 100 unit/1 mL SUBCUT (12:15)
[2024-08-25] MEDS: nystatin 100,000 unit/mL UDC 5 mL 100000 UNIT PO ×3 (12:16→20:19)
--- NOTE | 2024-08-25 12:39 | XR_ITS ---
WS: [id number] XR chest 1V portable [id number] REASON FOR EXAM: Post PICC insertion FINDINGS: Right arm PICC line placement. Right arm PICC line was placed and the tip is in the mid superior vena cava. The chest is otherwise unchanged compared to 06/09/2024. XR/XR chest 1V portable [id number] IMPRESSION: PICC line position as above. Over the phone (1:20 p.m.) it was recommended thro ugh the ambulatory technologist to advance the PICC line but no more than 4 cm i f there was any remaining PICC line to advance. PICC line will be properly func tional in its current position.
--- NOTE | 2024-08-25 13:53 | PICC.NOTE ---
Single lumen PICC placed to right basilic vein. Referred to vascular access nurse for PICC placement due to need for IV antibiotics x 6 weeks. Risks and benefits discussed and informed consent obtained from pt. Right arm assessed with right basilic vein measuring 5.0 mm, straight, and apparent best choice for placement. Using sterile technique and MST, right basilic vein accessed x 1 stick. Mid-arm circumference measured 10 cm from right AC 33 cm. Trimmed cath 42 cm with 2 cm external length noted. CXR shows tip in SVC, in good position for use per radiologist. Line secured with stat-lock. Insertion site covered with Biopatch and TSM. Report given to bedside nurse, SRINATH Balderrama.
--- NOTE | 2024-08-25 14:44 | PM.PN ---
Subjective Subjective: No acute events overnight. Patient remains hemodynamically stable and afebrile. Complaining of pain in her knee. Medications: Reviewed: Yes Vitals/I&O/Wt Last Vital Signs Temp 98.5 F 08/25/24 11:36 Pulse 82 08/25/24 11:36 Resp 18 08/25/24 11:36 BP 154/70 08/25/24 11:36 Pulse Ox 95 08/25/24 11:36 O2 Del Method Room Air 08/25/24 11:36 O2 Flow Rate 3 08/18/24 17:01 08/24/24 08/25/24 08/25/24 22:59 06:59 14:59 Intake Total 1480 / 1970 730 / 2700 360 / 360 Output Total Balance 1480 / 1770 728 / 2498 360 / 360 Weight last 48 hrs Weight 103.192 kg Physical Exam Narrative: Alert and oriented x 3 Head is normocephalic atraumatic Respirations are intact CVS - RRR Abd Soft NT/ND Patient's neurovascular intact bilateral lower extremities Immobilizer in place. Urinary Catheter Management: Germain: Cath Placed During This Visit: yes, but has since been removed by the nurse Reason for Continuing Indwelling Catheter: Decision to DC Catheter Urinary Catheter Date of Insertion: 08/17/24 Urinary Catheter Time of Insertion: 14:35 Date Urinary Catheter Removed: 08/21/24 Time Urinary Catheter Discontinued: 06:19 Data 08/25/24 04:47 08/25/24 04:47 Micro: Microbiology 08/23/24 08:30 Anaerobic Culture - Preliminary Knee - #1 08/25/24 12:45 Blood Culture - Preliminary Blood SPECIMEN COLLECTED 08/25/24 11:59 Blood Culture - Preliminary Blood SPECIMEN COLLECTED 08/24/24 04:28 Blood Culture - Preliminary Blood Klebsiella pneumoniae 08/23/24 08:30 Gram Stain - Final Knee - #1 Wound Culture - Final Klebsiella pneumoniae 08/24/24 04:34 Blood Culture - Preliminary Blood NEGATIVE TO DATE A&P Assessment and plan (1) Bacteremia due to Klebsiella pneumoniae: (2) Postoperative wound cellulitis: (3) Wound discharge: (4) Closed fracture of left patella: (5) Hyponatremia: (6) Uncontrolled type 2 diabetes mellitus: Qualifiers: Glycemic state: with hypoglycemia Coma presence: without coma Qualified Code(s): E11.649 - Type 2 diabetes mellitus with hypoglycemia without coma (7) Acute kidney injury: (8) Hypertension: (9) Atherosclerotic heart disease of [place] coronary artery without angina pectoris: Qualifiers: [place] vs. transplanted heart: [place] heart Qualified Code(s): I25.10 - Atherosclerotic heart disease of [place] coronary artery without angina pectoris (10) Low serum cortisol level: (11) Chronic use of steroids: (12) Back pain, chronic: Qualifiers: Back pain laterality: bilateral Back pain location: low back pain Sciatica laterality: sciatica of right side Sciatica presence: with sciatica Qualified Code(s): M54.41 - Lumbago with sciatica, right side; G89.29 - Other chronic pain Plan Left Patellar Fracture - Patient sustained a left patellar fracture from a fall yesterday. - Immobilizer in place on the left leg. -Postop from 08/18 Plan: 1. Continue post op managment as per ortho 2. PT on consult 3. Pain control 4. Non-weight bearing 5. Working on placement Back Pain - Chronic back pain exacerbated by recent fall. - The Patient reports pain in lower back and side. Plan: 1. Continue pain management. Urinary Symptoms - The Patient reports burning sensation and difficulty urinating. - Urinary catheter in place. - UA negative for infection Plan: 1. Monitor off abx. Diabetes Mellitus - The Patient is on short acting which we will for surgery - On tresiba 68 units at bedtime - Now becoming hyperglycemic . Plan: 1. Reduced lantus dose increased to 50unit qhs. Blood sugars have been over 300. Additional lantus was given this am and humalog 10 units TID meals was added. 2. 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 Hypertension - Continue current antihypertensive medication. Hyperlipidemia - Continue Lipitor as prescribed. Coronary Artery Disease - History of three stents. - Currently off aspirin and Plavix due to bleeding risk. Plan: 1. No change to management Pain Management - Hydrocodone 10mg PO every 6 hours as needed for pain. - The Patient is allergic to morphine and dilaudid. Plan: 1. Continue hydrocodone 10mg PO every 6 hours as needed. Disposition: Will need placement at discharge Plan for the day: Wound cultures growing Klebsiella. Blood culture from 08/24 positive for Klebsiella. Repeat blood culture today. Appreciate sensitivities. ID recommendations appreciated. Continue with IV meropenem for now. DC vancomycin. Patient will need up to 3 weeks of IV antibiotics given wound infection, bacteremia and need for hardware eventually as an outpatient. PICC line placement. Blood sugars have been better but soft. Change Lantus to 40 units every morning. Hold off evening dose. Continue with sliding scale AC and at bedtime. Continue with home dose of hydrocortisone. Goal blood pressure less than 140/90 mmHg. Blood pressure is better controlled. Continue with Coreg 6.25 mg twice daily, amlodipine 10 mg oral daily, losartan 100 mg every afternoon, Imdur 120 mg oral daily. Uptitrate as per goal blood pressures. Discharge plan: Plan to discharge to SNF. Patient has been accepted. Will await negative blood cultures prior to discharge. Patient will need IV antibiotics on discharge. PDMP PDMP Reviewed: Not Reviewed Attestations Medical Necessity Statement*: Requires further hospitalization for management of wound infection with Klebsiella bacteremia in a patient admitted for patellar fracture post OR while outpatient antibiotics and negative blood cultures are awaited Diagnoses Bacteremia due to Klebsiella pneumoniae R78.81; B96.1 Postoperative wound cellulitis T81.49XA Wound discharge T14.8XXA Closed fracture of left patella S82.002A Hyponatremia E87.1 Uncontrolled type 2 diabetes mellitus with hypoglycemia without coma E11.649 Glycemic state: with hypoglycemia Coma presence: without coma Acute kidney injury N17.9 Hypertension I10 Atherosclerosis of [place] coronary artery of [place] heart without angina pectoris I25.10 [place] vs. transplanted heart: [place] heart Low serum cortisol level E27.40 Chronic use of steroids Back pain, chronic M54.41; G89.29 Back pain laterality: bilateral Back pain location: low back pain Sciatica laterality: sciatica of right side Sciatica presence: with sciatica
[2024-08-25 17:09] LABS: Glucose Point of Care 132 mg/dL (70-110)
[2024-08-25] MEDS: losartan 50 mg Tablet 100 MG PO (17:37)
[2024-08-25] MEDS: ARIPiprazole 2 mg Tablet PO (20:18)
[2024-08-25 20:54] LABS: Glucose Point of Care 308 mg/dL (70-110)
--- NOTE | 2024-08-25 23:41 | PM.CONSULT ---
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 The Patient was unable to get up independently and required assistance. Evaluation revealed a left patellar fracture. She underwent Open reduction internal fixation with fibrewire of left patella fracture on 08/18/24. Hospital course has been complicated by development of cellulitis at the surgical site with drainage. Pain has increased over the site since then. Wound cx has revealed Klebsiella Pneumonaie. Blood cx positive for the same organism.No underlying hardware at the knee joint. She is currently on iv abx with minimal improvement thus far. Review of Systems General: Reports: 10 or more systems reviewed and unremarkable except in HPI and below Const: Denies: fever(s), chills or body aches Eyes: Denies: change in vision, blurry vision or photophobia ENMT: Reports: hoarseness; Denies: throat pain, enlarged tonsils, odynophagia or nasal congestion Card: Denies: chest pain, palpitations, irregular heart rhythm, edema, swelling of feet/ankles, lightheadedness, pre-syncope, dyspnea on exertion or orthopnea Resp: Denies: dyspnea, productive cough, non-productive cough, wheezing, stridor, pain on inspiration, change in phlegm color, hemoptysis or chest congestion GI: Denies: abdominal pain, nausea, vomiting, hematemesis, coffee ground emesis, dysphagia, heartburn, diarrhea, constipation, GI cramping, change in stool character, hematochezia or melena : Denies: flank pain, difficulty voiding, dysuria, urinary frequency, urinary urgency, urinary hesitancy or hematuria Musc: Denies: neck pain, back pain, extremity pain, joint swelling, joint warmth or deformity Neuro: Denies: headache(s), numbness in extremities, weakness in extremities, sensory changes, difficulty walking, frequent falls, dizziness, vertigo, behavioral changes, Slurred speech present or seizure-like activity Psych: Denies: anxiety, depression, suicidal ideation or homicidal ideation Endo: Denies: polyuria, polydipsia, tired all the time, cold intolerance or hot flashes Gael/Lymph: Denies: easy bruising or easy bleeding Medications/Allergies Home Medications ?Medication ?Instructions ?Recorded ?Confirmed ?Last Taken ?Type cholecalciferol (vitamin D3) 25 1,000 unit PO QPM 06/01/19 08/17/24 08/16/24 History mcg (1,000 unit) capsule cranberry 500 mg capsule 500 mg PO QPM 06/01/19 08/17/24 08/16/24 History ferrous sulfate 325 mg (65 mg 325 mg PO DAILY@06/21/19 08/17/24 06/08/24 History iron) tablet magnesium oxide 400 mg (241.3 mg 500 mg PO DAILY@02/14/21 08/17/24 08/16/24 History magnesium) tablet blood sugar diagnostic #400 ea 09/02/21 08/17/24 02/18/24 Rx lancets 21 gauge (Comfort EZ #400 ea 09/02/21 08/17/24 02/18/24 Rx Lancets) blood sugar diagnostic (Easymax 15 #400 ea 09/11/21 08/17/24 02/18/24 Rx test strips) ascorbic acid (vitamin C) 500 mg 500 mg PO QNOON 11/14/21 08/17/24 08/16/24 History chewable tablet (Vitamin C) vitamin E 670 mg (1,000 unit) 1,000 unit PO QAM 11/14/21 08/17/24 06/08/24 History capsule flash glucose scanning reader #1 ea 02/17/22 08/17/24 02/18/24 Rx (FreeStyle Tor 2 Perry) flash glucose sensor (FreeStyle #3 ea 02/17/22 08/17/24 02/18/24 Rx Tor 2 Sensor kit) esomeprazole magnesium 40 mg 40 mg PO QAM 05/19/22 08/17/24 06/08/24 History capsule,delayed release potassium chloride 8 mEq 24 meq PO QAM 05/19/22 08/17/24 08/16/24 History capsule,extended release lactulose 10 gram/15 mL oral 15 ml PO DAILY PRN Constipation 06/23/23 08/17/24 08/16/24 History solution nitroglycerin 0.4 mg sublingual 0.4 mg sublingual Q5M PRN chest 08/04/23 08/17/24 02/18/24 Rx tablet pain 30 days #30 tabs isosorbide mononitrate 120 mg 120 mg PO DAILY@12 #90 tabs 09/20/23 08/17/24 08/16/24 Rx tablet,extended release 24 hr melatonin 3 mg capsule 3 mg PO BEDTIME 11/18/23 08/17/24 08/16/24 History amlodipine 10 mg tablet 10 mg PO DAILY 06/09/24 08/17/24 08/16/24 History insulin lispro 100 unit/mL 28 unit SUBCUT TID 06/09/24 08/17/24 08/16/24 History subcutaneous pen (Humalog KwikPen (U-100) Insulin) torsemide 20 mg tablet 20 mg PO BID 06/09/24 08/17/24 08/16/24 History valsartan 320 mg tablet 320 mg PO QPM 06/09/24 08/17/24 08/16/24 History dhaval LT knee Brace #1 ea 06/30/24 08/17/24 Unknown Rx pen needle, diabetic 31 gauge x #400 ea 07/03/24 08/17/24 Unknown Rx 3/16 (BD Ultra-Fine Mini Pen Needle) hydrocodone 10 mg-acetaminophen 1 tab PO Q6H PRN pain 7 days #28 07/31/24 08/17/24 08/16/24 Rx 325 mg tablet tabs aripiprazole 2 mg tablet See Rx Instructions .Route 08/07/24 08/17/24 08/16/24 Rx .COMPLEX #30 tabs hydrocortisone 10 mg tablet See Rx Instructions .Route 08/07/24 08/17/24 08/16/24 Rx .COMPLEX #120 tabs diclofenac sodium 1 % topical gel 4 g topical QID #100 grams 08/09/24 08/17/24 Unknown Rx hinged knee brace left #1 ea 08/09/24 08/17/24 Unknown Rx insulin degludec 200 unit/mL (3 See Rx Instructions .Route 08/14/24 08/17/24 08/16/24 Rx mL) subcutaneous pen (Tresiba .COMPLEX #9 mL FlexTouch U-200 insulin) Allergies Allergy/AdvReac Type Severity Reaction Status Date / Time morphine Allergy Severe RESPIRATORY Verified 08/09/24 13:12 DISTRESS doxycycline Allergy Mild THROAT Verified 08/09/24 13:12 SWELLING duloxetine (From Cymbalta) Allergy Mild SWELLING, Verified 08/09/24 13:12 VOMITING metformin Allergy Mild THROAT Verified 08/09/24 13:12 SWELLING oxybutynin (From Oxytrol) Allergy Mild ALGY-Rash Verified 08/09/24 13:12 Penicillins Allergy Mild ALGY-Rash Verified 08/09/24 13:12 Sulfa (Sulfonamide Allergy Mild STOMACH Verified 08/09/24 13:12 Antibiotics) CRAMPS alprazolam (From Xanax) Allergy Unknown Unknown Verified 08/09/24 13:12 amitriptyline Allergy Unknown Unknown Verified 08/09/24 13:12 Barbiturates Allergy Unknown stomach Verified 08/09/24 13:12 cramps cefuroxime (From Ceftin) Allergy Unknown stomach Verified 08/09/24 13:12 cramps insulin detemir (From Allergy Unknown Unknown Verified 08/09/24 13:12 Levemir U-100 Insulin) levofloxacin (From Levaquin) Allergy Unknown Unknown Verified 08/09/24 13:12 liraglutide (From Victoza) Allergy Unknown Unknown Verified 08/09/24 13:12 metoclopramide (From Reglan) Allergy Unknown Unknown Verified 08/09/24 13:12 nitrofurantoin (From Allergy Unknown Unknown Verified 08/09/24 13:12 Macrobid) pregabalin (From Lyrica) Allergy Unknown Unknown Verified 08/09/24 13:12 divalproex sodium (From Allergy ALGY-Hives Verified 08/09/24 13:12 Depakote) gabapentin Allergy bone, Verified 08/09/24 13:12 muscle pain and mood swings venlafaxine Allergy Unknown Verified 08/09/24 13:12 meloxicam AdvReac Severe ADR-Vomitin Verified 08/09/24 13:12 g ciprofloxacin (From Cipro) AdvReac Mild stomach Verified 08/09/24 13:12 upset hydromorphone (From Dilaudid) AdvReac Unknown PT STATES Verified 08/09/24 13:12 IT MAKES ME CRAZY Current Medications Generic Name Dose Route Start Last Admin Trade Name Irvingq PRN Reason Stop Dose Admin Acetaminophen 650 mg 08/17/24 16:19 08/25/24 15:44 Acetaminophen 325 Mg Tablet PO 650 mg Q6H PRN Administration Mild/Mod Pain Or Temp >/= 101 Amlodipine Besylate 10 mg 08/18/24 09:00 08/25/24 09:20 Amlodipine 10 Mg Tablet PO 10 mg DAILY TEJA Administration Aripiprazole 2 mg 08/17/24 21:00 08/25/24 20:18 Aripiprazole 2 Mg Tablet PO 2 mg BEDTIME TEJA Administration Carvedilol 6.25 mg 08/24/24 18:00 08/25/24 17:25 Carvedilol 6.25 Mg Tablet PO 6.25 mg BID TEJA Administration Heparin Sodium (Porcine) 5,000 unit 08/17/24 16:30 08/25/24 17:25 Heparin 5,000 Unit/Ml Inj 1 Ml SUBCUT 5,000 unit Q8H TEJA Administration Hydrocortisone 10 mg 08/17/24 21:00 08/25/24 20:18 Hydrocortisone 10 Mg Tablet PO 10 mg QID TEJA Administration Insulin Human Lispro 0 unit 08/24/24 18:00 08/25/24 17:24 Insulin Lispro 100 Unit/1 Ml SUBCUT Not Given TIDWM TEJA Protocol Isosorbide Mononitrate 120 mg 08/18/24 09:00 08/25/24 09:21 Isosorbide Mononitrate Er 60 Mg Tablet PO 120 mg DAILY TEJA Administration Losartan Potassium 100 mg 08/17/24 18:00 08/25/24 17:37 Losartan 50 Mg Tablet PO 100 mg QPM TEJA Administration Meropenem 1,000 mg 08/24/24 08:30 08/25/24 17:26 Meropenem 1,000 Mg Sdv IVP 1,000 mg Q8H TEJA Administration Protocol Nystatin 100,000 unit 08/25/24 13:00 08/25/24 20:19 Nystatin 100,000 Unit/Ml Udc 5 Ml PO 100,000 unit QID TEJA Administration Pantoprazole Sodium 40 mg 08/18/24 06:00 08/25/24 06:[address] 40 Mg Tablet PO 40 mg QAM TEJA Administration Sodium Chloride 1 gm 08/22/24 18:00 08/25/24 17:26 Sodium Chloride 1 Gm Tablet PO 1 gm BID TEJA Administration Tramadol HCl 100 mg 08/22/24 15:27 08/25/24 20:18 Tramadol 50 Mg Tablet PO 100 mg Q6H PRN Administration MODERATE PAIN PFSH Acute PFSH: Medical History (Updated 08/25/24 @ 11:04 by Alex Kumar MD) Bacteremia due to Klebsiella pneumoniae Chronic use of steroids C. 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 Left axis deviation. Normal MS and QRS duration. Dyslipidemia (high LDL; low HDL) Benign essential hypertension with target blood pressure below 140/90 Atherosclerotic heart disease of [place] coronary artery without angina pectoris Status post left heart catheterization Recurrent UTI Gross hematuria Bipolar II disorder Surgical History Hx of bilateral hip replacements Hx of bladder repair surgery History of colonoscopy (~2017) History of coronary artery stent placement History of right knee surgery S/P appendectomy S/P hysterectomy S/P hernia repair S/P hip replacement Family History Family/Other Diabetes Other Cancer Social History Smoking and tobacco/nicotine status: unknown if used tobacco/nicotine Alcohol intake: never Substance/Drug Use: never Household members: spouse Marital status: Current occupational status: retired Vitals/I&O/Wt Last Vital Signs Temp 98.0 F 08/25/24 19:56 Pulse 73 08/25/24 19:56 Resp 18 08/25/24 19:56 BP 113/50 08/25/24 19:56 Pulse Ox 93 08/25/24 19:56 O2 Del Method Room Air 08/25/24 19:56 O2 Flow Rate 3 08/18/24 17:01 08/25/24 08/25/24 08/26/24 14:59 22:59 06:59 Intake Total 360 / 360 240 / 600 Balance 360 / 360 240 / 600 Weight last 48 hrs Weight 103.192 kg Physical Exam Narrative: General: No acute distress, AO x3 HEENT: PERRLA, pupils bilaterally equal and reactive, pallors not present Chest: Normal vesicular breath sounds, no added sounds, equal good air entry bilaterally CVS: S1-S2 regular, no murmurs, no tachycardia, no gallops, no rubs Abdomen: Soft, nontender, no organomegaly, bowel sounds present Neuro: No focal deficits, no facial deformity, AO x3, power 5/5 in all limbs Urinary Catheter Management: Germain: Cath Placed During This Visit: yes, but has since been removed by the nurse Reason for Continuing Indwelling Catheter: Decision to DC Catheter Urinary Catheter Date of Insertion: 08/17/24 Urinary Catheter Time of Insertion: 14:35 Date Urinary Catheter Removed: 08/21/24 Time Urinary Catheter Discontinued: 06:19 Data 08/26/24 04:19 08/26/24 04:19 Micro: Microbiology 08/23/24 08:30 Anaerobic Culture - Preliminary Knee - #1 08/25/24 12:45 Blood Culture - Preliminary Blood SPECIMEN COLLECTED 08/25/24 11:59 Blood Culture - Preliminary Blood SPECIMEN COLLECTED 08/24/24 04:28 Blood Culture - Preliminary Blood Klebsiella pneumoniae Kleb pneum M.I.C. RX --------- ------ * Amikacin <=16 S * Amoxicillin/Clavulanate <=8/4 S * Ampicillin/Sulbactam <=8/4 S * Aztreonam <=4 S * Cefepime <=8 S * Ceftriaxone <=1 S * Cefuroxime <=4 S * Ciprofloxacin <=1 S * Gentamicin <=2 S * Imipenem <=1 S * Levofloxacin <=2 S * Tetracycline <=4 S * Trimethoprim/Sulfamethoxazole <=2/38 S * Piperacillin/Tazobactam <=16 S 08/23/24 08:30 Gram Stain - Final Knee - #1 Wound Culture - Final Klebsiella pneumoniae Spec #: [id number] Eddie: 08/23/24 Status: COMP Req #: [id number] Recd: 08/23/[address]: Alex Kumar MD Src: Knee SpDesc: #1 Ordered: WC and GS Procedure Result Verified Site Gram Stain Final 08/23/24-1152 Result SCANT GRAM NEGATIVE RODS RARE WHITE BLOOD CELLS Wound Culture Final 08/25/24-1038 Organism 1 Klebsiella pneumoniae Growth HEAVY DAY 2 Kleb pneum M.I.C. RX --------- ------ * Amikacin <=16 S * Amoxicillin/Clavulanate <=8/4 S * Ampicillin/Sulbactam <=8/4 S * Aztreonam <=4 S * Cefepime <=8 S * Ceftriaxone <=1 S * Cefuroxime <=4 S * Ciprofloxacin <=1 S * Gentamicin <=2 S * Imipenem <=1 S * Levofloxacin <=2 S * Tetracycline <=4 S * Trimethoprim/Sulfamethoxazole <=2/38 S * Piperacillin/Tazobactam <=16 S Wound Culture Preliminary (changed) 08/24/24-1046 Organism 1 Gram Negative Rods Growth HEAVY DAY 1, RESULTS TO FOLLOW 08/24/24 04:34 Blood Culture - Preliminary Blood NEGATIVE TO DATE A&P Assessment and plan (1) Postoperative wound cellulitis: (2) Bacteremia due to Klebsiella pneumoniae: Plan Patient admitted with patellar fracture s/p ORIF with fibrewire on 08/18 with course complicated by cellulitis and drainage Wound cx from draining wound with Klebsiella Pneumonia similar organism on blood cultures Change abx coverage to Ceftriaxone 2g iv every 24 hrs reviewed orthopedics note- no debridement planned for now Patint has a Picc line placed 08/25, anticipate 2-3 weeks of abx at this time. further course will remain dependent on clinical progress will follow PDMP PDMP Reviewed: Not Reviewed Coding Level of Care Code Acute Code for g Fwd Diagnoses Postoperative wound cellulitis T81.49XA Bacteremia due to Klebsiella pneumoniae R78.81; B96.1
[2024-08-26] VITALS (7 sets, daily range): BP systolic 111–168; BP diastolic 53–85; PULSE 69–89; RESP 17–18; TEMP 36.4–36.9; O2SAT 93–97
[2024-08-26] MEDS: meropenem 1,000 mg SDV 1000 MG IVP ×2 (00:29→09:30)
[2024-08-26] MEDS: heparin 5,000 unit/mL INJ 1 mL 5000 UNIT SUBCUT ×3 (00:29→15:46)
[2024-08-26 05:01] LABS: Basophils % 0.1 %; Eosinophils # 0.1 10^3/uL (0.0-0.8); Eosinophils % 1.3 %; Hematocrit 31.3 % (36-47); Lymphocytes # 1.4 10^3/uL (0.8-4.8); Lymphocytes % 18.5 %; Mean Corpuscular HGB Conc 32.6 g/dL (30-55); Mean Corpuscular Hemoglobin 30.4 pg (27-33); Mean Corpuscular Volume 93.2 fl (85-98); Mean Platelet Volume 10.3 fL (7.4-10.4); Monocytes # 0.8 10^3/uL (0.2-0.9); Monocytes % 10.9 %; Neutrophils # 5.14 10^3/uL (1.8-7.7); Neutrophils % 67.4 %; Nucleated Red Blood Cells % 0 %; Platelet Count 263 10^3/cmm (157-399); Red Blood Count 3.36 10^6/uL (3.85-5.65); Red Cell Distribution Width 14.6 % (12.1-15.1); White Blood Count 7.63 10^3/uL (3.29-11.43)
[2024-08-26 05:20] LABS: Alanine Aminotransferase 20 U/L (0-33); Albumin Level 2.6 g/dL (3.5-5.2); Alkaline Phosphatase 123 U/L (35-105); Aspartate Amino Transferase 17 U/L (0-32); Blood Urea Nitrogen 10 mg/dL (8-23); Calcium 9.4 mg/dL (8.5-10.5); Carbon Dioxide 27 mmol/L (22-29); Chloride 103 mmol/L (98-107); Creatinine Clr Calc Pharmacy 62.2849; Globulin 3.4 g/dL (1.3-4.6); Glucose 187 mg/dL (65-115); Osmolality Calculated 286 mOsm/kg (285-295); Sodium 136 mmol/L (136-145); Total Bilirubin 0.4 mg/dL (0.15-1.2)
[2024-08-26 05:21] LABS: Anion Gap 10.4 (5-19); Potassium 4.4 mmol/L (3.5-5.1)
[2024-08-26] MEDS: pantoprazole DR 40 mg Tablet PO (06:13)
[2024-08-26] MEDS: TRAMadol 50 mg Tablet 100 MG PO ×3 (06:14→20:12)
[2024-08-26 06:27] LABS: Glucose Point of Care 171 mg/dL (70-110)
[2024-08-26] MEDS: acetaminophen 325 mg Tablet 650 MG PO ×3 (09:27→22:38)
[2024-08-26] MEDS: insulin lispro 100 unit/1 mL SUBCUT ×2 (09:28→12:15)
[2024-08-26] MEDS: sodium chloride 1 gm Tablet PO ×2 (09:28→17:38)
[2024-08-26] MEDS: hydrocortisone 10 mg Tablet PO ×4 (09:28→20:08)
[2024-08-26] MEDS: amlodipine 10 mg Tablet PO (09:28)
[2024-08-26] MEDS: isosorbide mononitrate ER 60 mg Tablet 120 MG PO (09:28)
[2024-08-26] MEDS: carvedilol 6.25 mg Tablet PO (09:28)
[2024-08-26] MEDS: nystatin 100,000 unit/mL UDC 5 mL 100000 UNIT PO ×4 (09:30→20:08)
[2024-08-26] MEDS: insulin glargine 100 units/1 mL 40 UNIT SUBCUT (09:30)
[2024-08-26 11:39] LABS: Glucose Point of Care 192 mg/dL (70-110)
[2024-08-26] MEDS: cefTRIAXone 1,000 mg SDV 1000 MG IVP ×2 (12:52→15:45)
--- NOTE | 2024-08-26 14:09 | P.PN_ITS ---
Subjective 2 Subjective: No acute events overnight. Patient states she is feeling better today. States pain in the is improving today. Did have an extreme out of pain yesterday. Still requiring up to 2-3 bandage changes because of soakage. Medications: Reviewed: Yes Vitals/I&O/Wt Last Vital Signs Temp 97.5 F L 08/26/24 12:05 Pulse 89 08/26/24 12:05 Resp 18 08/26/24 12:05 BP 168/78 08/26/24 12:05 Pulse Ox 94 08/26/24 12:05 O2 Del Method Room Air 08/26/24 12:05 O2 Flow Rate 3 08/18/24 17:01 08/25/24 08/26/24 08/26/24 22:59 06:59 14:59 Intake Total 240 / 600 720 / 720 Balance 240 / 600 720 / 720 Weight last 48 hrs Weight 100.244 kg Physical Exam 2 Narrative: Alert and oriented x 3 Head is normocephalic atraumatic Respirations are intact CVS - RRR Abd Soft NT/ND Patient's neurovascular intact bilateral lower extremities Immobilizer in place. Urinary Catheter Management: Germain: Cath Placed During This Visit: yes, but has since been removed by the nurse Reason for Continuing Indwelling Catheter: Decision to DC Catheter Urinary Catheter Date of Insertion: 08/17/24 Urinary Catheter Time of Insertion: 14:35 Date Urinary Catheter Removed: 08/21/24 Time Urinary Catheter Discontinued: 06:19 Data 08/26/24 04:19 08/26/24 04:19 Micro: Microbiology 08/25/24 12:45 Blood Culture - Preliminary Blood NEGATIVE TO DATE 08/24/24 04:28 Blood Culture - Preliminary Blood Klebsiella pneumoniae 08/25/24 11:59 Blood Culture - Preliminary Blood NEGATIVE TO DATE 08/23/24 08:30 Anaerobic Culture - Preliminary Knee - #1 08/23/24 08:30 Gram Stain - Final Knee - #1 Wound Culture - Final Klebsiella pneumoniae A&P Assessment and plan (1) Bacteremia due to Klebsiella pneumoniae: (2) Postoperative wound cellulitis: (3) Wound discharge: (4) Closed fracture of left patella: (5) Hyponatremia: (6) Uncontrolled type 2 diabetes mellitus: Qualifiers: Glycemic state: with hypoglycemia Coma presence: without coma Q ualified Code(s): E11.649 - Type 2 diabetes mellitus with hypoglycemia without coma (7) Acute kidney injury: (8) Hypertension: (9) Atherosclerotic heart disease of [place] coronary artery without angina pectoris: Qualifiers: [place] vs. transplanted heart: [place] heart Qualified Code(s): I25.10 - Atherosclerotic heart disease of [place] coronary artery without angina pectoris (10) Low serum cortisol level: (11) Chronic use of steroids: (12) Back pain, chronic: Qualifiers: Back pain laterality: bilateral Back pain location: low back pain S ciatica laterality: sciatica of right side Sciatica presence: with sciatica Q ualified Code(s): M54.41 - Lumbago with sciatica, right side; G89.29 - Other chronic pain Plan Left Patellar Fracture - Patient sustained a left patellar fracture from a fall yesterday. - Immobilizer in place on the left leg. -Postop from 08/18 Plan: 1. Continue post op managment as per ortho 2. PT on consult 3. Pain control 4. Non-weight bearing 5. Working on placement Back Pain - Chronic back pain exacerbated by recent fall. - The Patient reports pain in lower back and side. Plan: 1. Continue pain management. Urinary Symptoms - The Patient reports burning sensation and difficulty urinating. - Urinary catheter in place. - UA negative for infection Plan: 1. Monitor off abx. Diabetes Mellitus - The Patient is on short acting which we will for surgery - On tresiba 68 units at bedtime - Now becoming hyperglycemic . Plan: 1. Reduced lantus dose increased to 50unit qhs. Blood sugars have been over 300. Additional lantus was given this am and humalog 10 units TID meals was added. 2. Sliding scale insulin [place]'s Disease - Continue hydrocortisone as prescribed. Hypertension - Continue current antihypertensive medication. Hyperlipidemia - Continue Lipitor as prescribed. Coronary Artery Disease - History of three stents. - Currently off aspirin and Plavix due to bleeding risk. Plan: 1. No change to management Pain Management - Hydrocodone 10mg PO every 6 hours as needed for pain. - The Patient is allergic to morphine and dilaudid. Plan: 1. Continue hydrocodone 10mg PO every 6 hours as needed. Disposition: Will need placement at discharge Plan for the day: Appreciate blood culture and wound culture. Follow-up blood culture from 08/25. Appreciate sensitivity and ID recommendations. Switch from IV meropenem to IV ceftriaxone. Discussed change of antibiotic in detail with the patient. She states she has tolerated cephalexin as an outpatient very well. She is agreeable to trial of ceftriaxone. PICC line placed. Blood pressure is better but still elevated. Increase dose of Coreg to 12.5 mg twice daily. Blood sugars improving. Change dose of Lantus to 30 units every 12 hourly. Continue with insulin sliding scale. Hypoglycemia protocol. Out of bed to chair. Physical therapy. Discharge plan: Plan to discharge to SNF. Patient has been accepted. Will await negative blood cultures prior to discharge. Patient will need IV antibiotics on discharge. PDMP PDMP Reviewed: Not Reviewed Attestations 2 Medical Necessity Statement*: Requires further hospitalization for management of postoperative wound infection, Klebsiella bacteremia Diagnoses Bacteremia due to Klebsiella pneumoniae R78.81; B96.1 Postoperative wound cellulitis T81.49XA Wound discharge T14.8XXA Closed fracture of left patella S82.002A Hyponatremia E87.1 Uncontrolled type 2 diabetes mellitus with hypoglycemia without coma E11.649 Glycemic state: with hypoglycemia Coma presence: without coma Acute kidney injury N17.9 Hypertension I10 Atherosclerosis of [place] coronary artery of [place] heart without angina pectoris I25.10 [place] vs. transplanted heart: [place] heart Low serum cortisol level E27.40 Chronic use of steroids Back pain, chronic M54.41; G89.29 Back pain laterality: bilateral Back pain location: low back pain Sciatica laterality: sciatica of right side Sciatica presence: with sciatica
--- NOTE | 2024-08-26 15:13 | USR_ITS ---
PROCEDURE INFORMATION: Exam: US Duplex Lower Extremity Veins, Bilateral Exam date and time: 08/26/2024 4:52 PM Age: 79 years old Clinical indication: Screening exam; Dvt; Prior surgery; Surgery date: <1 month; Surgery type: Patient had surgery on this leg 07-29-2024 TECHNIQUE: Imaging protocol: Real-time duplex ultrasound of the bilateral extremities with 2-D louie scale, color Doppler flow and spectral waveform analysis including responses to compression and other maneuvers (when performed) with image documentation. Complete exam focused on the lower extremity veins. COMPARISON: [place] [id number] 02/19/2024 4:23 PM FINDINGS: Right deep veins: Unremarkable. The common femoral, femoral, proximal profunda femoral and popliteal veins are patent without thrombus. Normal Doppler waveforms. Normal compressibility and/or augmentation response. Left deep veins: Unremarkable. The common femoral, femoral, proximal profunda femoral and popliteal veins are patent without thrombus. Normal Doppler waveforms. Normal compressibility and/or augmentation response. Superficial veins: Greater saphenous veins at the saphenofemoral junctions are patent bilaterally without thrombus. Soft tissues: Unremarkable. US/[place] [id number] IMPRESSION: No evidence of deep vein thrombosis.
[2024-08-26 17:02] LABS: Glucose Point of Care 66 mg/dL (70-110)
[2024-08-26] MEDS: losartan 50 mg Tablet 100 MG PO (17:38)
[2024-08-26] MEDS: carvedilol 12.5 mg Tablet PO (17:38)
[2024-08-26] MEDS: ARIPiprazole 2 mg Tablet PO (20:08)
[2024-08-26 20:47] LABS: Glucose Point of Care 249 mg/dL (70-110)
[2024-08-26] MEDS: insulin glargine 100 units/1 mL 30 UNIT SUBCUT (20:50)
[2024-08-27] VITALS (7 sets, daily range): BP systolic 129–156; BP diastolic 62–81; PULSE 70–83; RESP 17–18; TEMP 36.6–36.8; O2SAT 92–98
[2024-08-27] MEDS: heparin 5,000 unit/mL INJ 1 mL 5000 UNIT SUBCUT ×3 (00:36→17:17)
[2024-08-27] MEDS: TRAMadol 50 mg Tablet 100 MG PO ×3 (02:58→15:08)
[2024-08-27 05:27] LABS: Basophils % 0.2 %; Eosinophils # 0.2 10^3/uL (0.0-0.8); Eosinophils % 2.1 %; Hematocrit 30.8 % (36-47); Lymphocytes # 2.1 10^3/uL (0.8-4.8); Lymphocytes % 23.8 %; Mean Corpuscular HGB Conc 31.8 g/dL (30-55); Mean Corpuscular Hemoglobin 29.6 pg (27-33); Mean Corpuscular Volume 93.1 fl (85-98); Monocytes # 0.8 10^3/uL (0.2-0.9); Monocytes % 8.7 %; Neutrophils # 5.42 10^3/uL (1.8-7.7); Nucleated Red Blood Cells % 0 %; Platelet Count 297 10^3/cmm (157-399); Red Blood Count 3.31 10^6/uL (3.85-5.65); Red Cell Distribution Width 14.5 % (12.1-15.1); White Blood Count 8.61 10^3/uL (3.29-11.43)
[2024-08-27] MEDS: acetaminophen 325 mg Tablet 650 MG PO ×2 (05:30→20:50)
[2024-08-27] MEDS: pantoprazole DR 40 mg Tablet PO (05:31)
[2024-08-27 05:45] LABS: Alanine Aminotransferase 19 U/L (0-33); Albumin Level 2.6 g/dL (3.5-5.2); Alkaline Phosphatase 109 U/L (35-105); Anion Gap 12.3 (5-19); Aspartate Amino Transferase 16 U/L (0-32); Blood Urea Nitrogen 12 mg/dL (8-23); Calcium 9.5 mg/dL (8.5-10.5); Carbon Dioxide 28 mmol/L (22-29); Chloride 100 mmol/L (98-107); Creatinine Clr Calc Pharmacy 62.8693; Globulin 3.5 g/dL (1.3-4.6); Glucose 105 mg/dL (65-115); Osmolality Calculated 282 mOsm/kg (285-295); Potassium 4.3 mmol/L (3.5-5.1); Sodium 136 mmol/L (136-145); Total Bilirubin 0.3 mg/dL (0.15-1.2); Total Protein 6.1 g/dL (6.6-8.7)
[2024-08-27 06:33] LABS: Glucose Point of Care 108 mg/dL (70-110)
[2024-08-27] MEDS: isosorbide mononitrate ER 60 mg Tablet 120 MG PO (08:59)
[2024-08-27] MEDS: nystatin 100,000 unit/mL UDC 5 mL 100000 UNIT PO ×4 (08:59→20:49)
[2024-08-27] MEDS: carvedilol 12.5 mg Tablet PO ×2 (08:59→17:16)
[2024-08-27] MEDS: hydrocortisone 10 mg Tablet PO ×4 (09:00→20:49)
[2024-08-27] MEDS: amlodipine 10 mg Tablet PO (09:00)
[2024-08-27] MEDS: insulin glargine 100 units/1 mL 30 UNIT SUBCUT ×2 (09:00→20:49)
[2024-08-27] MEDS: sodium chloride 1 gm Tablet PO ×2 (09:01→17:17)
[2024-08-27 11:44] LABS: Glucose Point of Care 156 mg/dL (70-110)
[2024-08-27] MEDS: insulin lispro 100 unit/1 mL SUBCUT (12:22)
--- NOTE | 2024-08-27 13:25 | PC.NURSE ---
Dressing change completed with Dr. Anne present.
--- NOTE | 2024-08-27 13:41 | P.PN_ITS ---
Subjective 2 Subjective: Today morning patient seen sitting in chair. Complaining of worse leg pain today. Multiple dressing changes overnight. Has remained hemodynamically stable and afebrile. Medications: Reviewed: Yes Vitals/I&O/Wt Last Vital Signs Temp 98 F 08/27/24 12:23 Pulse 72 08/27/24 12:23 Resp 17 08/27/24 12:23 BP 133/62 08/27/24 12:23 Pulse Ox 93 08/27/24 12:23 O2 Del Method Room Air 08/27/24 12:23 O2 Flow Rate 3 08/18/24 17:01 08/26/24 08/27/24 08/27/24 22:59 06:59 14:59 Intake Total 480 / 1200 120 / 1320 480 / 480 Balance 480 / 1200 120 / 1320 480 / 480 Weight last 48 hrs Weight 101.922 kg Weight 100.244 kg Physical Exam 2 Narrative: Alert and oriented x 3 Head is normocephalic atraumatic Respirations are intact CVS - RRR Abd Soft NT/ND Patient's neurovascular intact bilateral lower extremities Worsening cellulitis around the wound today. Mild fluctuant swelling present in the inferior region Urinary Catheter Management: Germain: Cath Placed During This Visit: yes, but has since been removed by the nurse Reason for Continuing Indwelling Catheter: Decision to DC Catheter Urinary Catheter Date of Insertion: 08/17/24 Urinary Catheter Time of Insertion: 14:35 Date Urinary Catheter Removed: 08/21/24 Time Urinary Catheter Discontinued: 06:19 Data 08/27/24 05:01 08/27/24 05:01 Micro: Microbiology 08/23/24 08:30 Anaerobic Culture - Preliminary Knee - #1 08/25/24 12:45 Blood Culture - Preliminary Blood NEGATIVE TO DATE 08/24/24 04:28 Blood Culture - Preliminary Blood Klebsiella pneumoniae 08/25/24 11:59 Blood Culture - Preliminary Blood NEGATIVE TO DATE A&P Assessment and plan (1) Bacteremia due to Klebsiella pneumoniae: (2) Postoperative wound cellulitis: (3) Wound discharge: (4) Closed fracture of left patella: (5) Hyponatremia: (6) Uncontrolled type 2 diabetes mellitus: Qualifiers: Glycemic state: with hypoglycemia Coma presence: without coma Q ualified Code(s): E11.649 - Type 2 diabetes mellitus with hypoglycemia without coma (7) Acute kidney injury: (8) Hypertension: (9) Atherosclerotic heart disease of [place] coronary artery without angina pectoris: Qualifiers: [place] vs. transplanted heart: [place] heart Qualified Code(s): I25.10 - Atherosclerotic heart disease of [place] coronary artery without angina pectoris (10) Low serum cortisol level: (11) Chronic use of steroids: (12) Back pain, chronic: Qualifiers: Back pain laterality: bilateral Back pain location: low back pain S ciatica laterality: sciatica of right side Sciatica presence: with sciatica Q ualified Code(s): M54.41 - Lumbago with sciatica, right side; G89.29 - Other chronic pain Plan Left Patellar Fracture - Patient sustained a left patellar fracture from a fall yesterday. - Immobilizer in place on the left leg. -Postop from 08/18 Plan: 1. Continue post op managment as per ortho 2. PT on consult 3. Pain control 4. Non-weight bearing 5. Working on placement Back Pain - Chronic back pain exacerbated by recent fall. - The Patient reports pain in lower back and side. Plan: 1. Continue pain management. Urinary Symptoms - The Patient reports burning sensation and difficulty urinating. - Urinary catheter in place. - UA negative for infection Plan: 1. Monitor off abx. Diabetes Mellitus - The Patient is on short acting which we will for surgery - On tresiba 68 units at bedtime - Now becoming hyperglycemic . Plan: 1. Reduced lantus dose increased to 50unit qhs. Blood sugars have been over 300. Additional lantus was given this am and humalog 10 units TID meals was added. 2. Sliding scale insulin [place]'s Disease - Continue hydrocortisone as prescribed. Hypertension - Continue current antihypertensive medication. Hyperlipidemia - Continue Lipitor as prescribed. Coronary Artery Disease - History of three stents. - Currently off aspirin and Plavix due to bleeding risk. Plan: 1. No change to management Pain Management - Hydrocodone 10mg PO every 6 hours as needed for pain. - The Patient is allergic to morphine and dilaudid. Plan: 1. Continue hydrocodone 10mg PO every 6 hours as needed. Disposition: Will need placement at discharge Plan for the day: Continue with IV ceftriaxone. Patient tolerated well. Today. Discussion between ID Physician and Orthopedic Team. Plan for Possible Debridement in AM. N.P.O. after Midnight. Blood Sugars and Blood Pressures Well-Controlled. Continue with Current Medications. Out of bed to chair. Physical therapy. Discharge plan: Plan to discharge to SNF. Patient has been accepted. Will await negative blood cultures prior to discharge. Patient will need IV antibiotics on discharge. PDMP PDMP Reviewed: Not Reviewed Attestations 2 Medical Necessity Statement*: Requires further hospitalization for management of postoperative wound infection requiring further debridement, Klebsiella bacteremia Diagnoses Bacteremia due to Klebsiella pneumoniae R78.81; B96.1 Postoperative wound cellulitis T81.49XA Wound discharge T14.8XXA Closed fracture of left patella S82.002A Hyponatremia E87.1 Uncontrolled type 2 diabetes mellitus with hypoglycemia without coma E11.649 Glycemic state: with hypoglycemia Coma presence: without coma Acute kidney injury N17.9 Hypertension I10 Atherosclerosis of [place] coronary artery of [place] heart without angina pectoris I25.10 [place] vs. transplanted heart: [place] heart Low serum cortisol level E27.40 Chronic use of steroids Back pain, chronic M54.41; G89.29 Back pain laterality: bilateral Back pain location: low back pain Sciatica laterality: sciatica of right side Sciatica presence: with sciatica
[2024-08-27] MEDS: cefTRIAXone 2,000 mg SDV 2000 MG IVP (13:59)
--- NOTE | 2024-08-27 14:18 | P.PN_ITS ---
Subjective 2 Subjective: Continues to complain of uncontrolled pain over the left knee. Additionally continues to have persisting discharge. Patient now also complaining of pain over the lower back and the right knee. Medications: Reviewed: Yes Vitals/I&O/Wt Last Vital Signs Temp 98 F 08/27/24 12:23 Pulse 72 08/27/24 12:23 Resp 17 08/27/24 12:23 BP 133/62 08/27/24 12:23 Pulse Ox 93 08/27/24 12:23 O2 Del Method Room Air 08/27/24 12:23 O2 Flow Rate 3 08/18/24 17:01 08/26/24 08/27/24 08/27/24 22:59 06:59 14:59 Intake Total 480 / 1200 120 / 1320 1160 / 1160 Balance 480 / 1200 120 / 1320 1160 / 1160 Weight last 48 hrs Weight 101.922 kg Weight 100.244 kg Physical Exam 2 Narrative: General: No acute distress, AO x3 HEENT: PERRLA, pupils bilaterally equal and reactive, pallors not present Chest: Normal vesicular breath sounds, no added sounds, equal good air entry bilaterally CVS: S1-S2 regular, no murmurs, no tachycardia, no gallops, no rubs Abdomen: Soft, nontender, no organomegaly, bowel sounds present Neuro: No focal deficits, no facial deformity, AO x3, power 5/5 in all limbs Urinary Catheter Management: Germain: Cath Placed During This Visit: yes, but has since been removed by the nurse Reason for Continuing Indwelling Catheter: Decision to DC Catheter Urinary Catheter Date of Insertion: 08/17/24 Urinary Catheter Time of Insertion: 14:35 Date Urinary Catheter Removed: 08/21/24 Time Urinary Catheter Discontinued: 06:19 Data 08/27/24 05:01 08/27/24 05:01 Micro: Microbiology 08/23/24 08:30 Anaerobic Culture - Preliminary Knee - #1 08/25/24 12:45 Blood Culture - Preliminary Blood NEGATIVE TO DATE 08/24/24 04:28 Blood Culture - Preliminary Blood Klebsiella pneumoniae 08/25/24 11:59 Blood Culture - Preliminary Blood NEGATIVE TO DATE A&P Assessment and plan (1) Postoperative wound cellulitis: (2) Bacteremia due to Klebsiella pneumoniae: Plan Patient admitted with patellar fracture s/p ORIF with fibrewire on 08/18 with course complicated by cellulitis and drainage Wound cx from draining wound with Klebsiella Pneumonia similar organism on blood cultures Change abx coverage to Ceftriaxone 2g iv every 24 hrs reviewed orthopedics note- no debridement planned for now Patint has a Picc line placed 08/25, anticipate 2-3 weeks of abx at this time. further course will remain dependent on clinical progress will follow August 27, 2024 Follow-up blood culture from August for thus far negative to date. Continue ceftriaxone 2 g IV every 24 hours Noted to have persisting drainage from the inferior aspect of her knee. Additionally noted to have increased pus discharge, pinpointing and fluctuant swelling over the lower aspect of her incision. Concerned about development of abscess which needs I&D. Discussed with Dr. Joya and hospitalist. Patient plan to be taken to the OR tomorrow morning. Additional cultures requested from OR specimen tomorrow. Will follow PDMP PDMP Reviewed: Not Reviewed Attestations 2 Medical Necessity Statement*: Per admitting Coding Level of Care Code Acute Code for [facility] Diagnoses Postoperative wound cellulitis T81.49XA Bacteremia due to Klebsiella pneumoniae R78.81; B96.1
--- NOTE | 2024-08-27 15:59 | XRR_ITS ---
PROCEDURE INFORMATION: Exam: XR Lumbosacral Spine Exam date and time: 08/27/2024 6:10 PM Age: 79 years old Clinical indication: Low back pain; Additional info: RT knee/ low back pain post fall x 2 weeks ago TECHNIQUE: Imaging protocol: Radiologic exam of the lumbosacral spine. Views: 2 or 3 views. COMPARISON: CR XR lumbar spine min 4V [id number] 08/08/2024 14:52 FINDINGS: Bones/joints: Slight convexity of the thoracolumbar spine is directed to the left. Bilateral hip prostheses are present. Grade 1 anterolisthesis of L4/L5 is not well seen but present on the lateral view. Vertebral heights are grossly maintained without distinct compression. Prominent osteoarthritic/degenerative spurring is seen circumferentially at L1-L2 and L2-L3. Prominent degenerative facet changes are noted at the L4-L5 and L5-S1 levels. Sacral structures are not well seen. Soft tissues: A phlebolith is present the left pelvic floor. Other findings: Prominence of overlying soft tissues results in diminished penetration and challenges resolution. Bowel-gas debris obscure detail particularly on the frontal projection. XR/XR lumbar spine 2-3V* [id number] IMPRESSION: 1. No gross compressive changes in this patient with suspected osteopenia; however, if further discrimination is needed a CT or MRI are suggested for your consideration. 2. Multilevel osteoarthritic/degenerative changes involving the lumbosacral region. 3. Less than optimal visualization of osseous structures including the sacrum due to marked overlying soft tissue challenging penetration.
--- NOTE | 2024-08-27 15:59 | XRR_ITS ---
PROCEDURE INFORMATION: Exam: XR Right Knee Exam date and time: 08/27/2024 6:05 PM Age: 79 years old Clinical indication: Right; RT knee/ low back pain post fall x 2 weeks ago TECHNIQUE: Imaging protocol: Radiologic exam of the right knee. Views: 1 or 2 views. COMPARISON: CT angio abd aorta runof [id number] 12/04/2023 07:16 and plain film series dated 02/10 2023. FINDINGS: Bones/joints: Mild narrowing of the medial compartment is noted to be present. Trace periarticular spurring is seen about the lateral tibial plateau. Generalized decreased bone density is observed and consistent with osteopenia. Soft tissues: Atherosclerotic calcifications are seen mild degree distal femoral and popliteal arteries. The lateral view demonstrates moderately prominent periarticular spurring along the patellofemoral region. XR/XR knee RT 1-2V [id number] IMPRESSION: 1. No acute osseous plain-film findings identified. 2. [id number] osteoarthritic/degenerative changes similar to earlier films from 02/10/2023. 3. Generalized osteopenia.
[2024-08-27 16:52] LABS: Glucose Point of Care 118 mg/dL (70-110)
[2024-08-27] MEDS: losartan 50 mg Tablet 100 MG PO (17:16)
[2024-08-27] MEDS: lidocaine 5% Patch 2 PATCH TOPICAL (17:17)
[2024-08-27 20:43] LABS: Glucose Point of Care 199 mg/dL (70-110)
[2024-08-27] MEDS: ARIPiprazole 2 mg Tablet PO (20:49)
[2024-08-28] VITALS (20 sets, daily range): BP systolic 104–173; BP diastolic 43–104; PULSE 67–100; RESP 15–28; TEMP 36.3–36.8; O2SAT 90–99
[2024-08-28] MEDS: heparin 5,000 unit/mL INJ 1 mL 5000 UNIT SUBCUT ×2 (00:55→23:52)
[2024-08-28] MEDS: TRAMadol 50 mg Tablet 100 MG PO ×4 (05:19→23:53)
[2024-08-28] MEDS: pantoprazole DR 40 mg Tablet PO (05:19)
[2024-08-28 05:21] LABS: Basophils % 0.1 %; Eosinophils # 0.1 10^3/uL (0.0-0.8); Eosinophils % 1.3 %; Hematocrit 29.4 % (36-47); Lymphocytes # 1.9 10^3/uL (0.8-4.8); Lymphocytes % 25.5 %; Mean Corpuscular HGB Conc 31.6 g/dL (30-55); Mean Corpuscular Hemoglobin 29.8 pg (27-33); Mean Corpuscular Volume 94.2 fl (85-98); Mean Platelet Volume 10.1 fL (7.4-10.4); Monocytes # 0.8 10^3/uL (0.2-0.9); Monocytes % 10.4 %; Neutrophils # 4.54 10^3/uL (1.8-7.7); Neutrophils % 60.8 %; Nucleated Red Blood Cells % 0 %; Platelet Count 338 10^3/cmm (157-399); Red Blood Count 3.12 10^6/uL (3.85-5.65); Red Cell Distribution Width 14.5 % (12.1-15.1); White Blood Count 7.48 10^3/uL (3.29-11.43)
[2024-08-28 05:45] LABS: Alanine Aminotransferase 19 U/L (0-33); Albumin Level 2.5 g/dL (3.5-5.2); Alkaline Phosphatase 105 U/L (35-105); Aspartate Amino Transferase 16 U/L (0-32); Blood Urea Nitrogen 10 mg/dL (8-23); Carbon Dioxide 27 mmol/L (22-29); Chloride 101 mmol/L (98-107); Creatinine Clr Calc Pharmacy 62.2692; Globulin 3.2 g/dL (1.3-4.6); Glucose 116 mg/dL (65-115); Osmolality Calculated 282 mOsm/kg (285-295); Sodium 136 mmol/L (136-145); Total Bilirubin 0.2 mg/dL (0.15-1.2); Total Protein 5.7 g/dL (6.6-8.7)
[2024-08-28 05:56] LABS: Slide Review Slide Review Perform
[2024-08-28 06:26] LABS: Glucose Point of Care 88 mg/dL (70-110)
[2024-08-28] MEDS: lidocaine 5% Patch 2 PATCH TOPICAL (07:39)
[2024-08-28] MEDS: isosorbide mononitrate ER 60 mg Tablet 120 MG PO (07:39)
[2024-08-28] MEDS: sodium chloride 1 gm Tablet PO ×2 (07:39→17:22)
[2024-08-28] MEDS: hydrocortisone 10 mg Tablet PO ×3 (07:39→20:14)
[2024-08-28] MEDS: carvedilol 12.5 mg Tablet PO ×2 (07:39→17:22)
[2024-08-28] MEDS: amlodipine 10 mg Tablet PO (07:39)
[2024-08-28] MEDS: nystatin 100,000 unit/mL UDC 5 mL 100000 UNIT PO ×3 (07:39→20:14)
--- NOTE | 2024-08-28 08:07 | PC.NURSE ---
Pt very distraught and crying this morning stating that her surgery day keeps being changed and she keeps being NPO. Pt requesting something small this morning as surgery is not scheduled until 1630. This nurse called and spoke with SRINATH Bonner in PACU who received verbal consent from Dr. Joya for a clear liquid diet, but to be immediately NPO after. Pt drank juice, had 1 thing of jello and 1 Popsicle.
[2024-08-28 11:59] LABS: Glucose Point of Care 105 mg/dL (70-110)
--- NOTE | 2024-08-28 13:47 | PC.NURSE ---
Pt taken down to Pre op via fransisca at 1346 accompanied by SRINATH Pereira.
[2024-08-28] MEDS: sodium chloride 0.9% 1,000 ML 30 ML IV (14:10)
[2024-08-28 14:16] LABS: Glucose Point of Care 102 mg/dL (70-110)
--- NOTE | 2024-08-28 14:46 | ANES.PAUD2 ---
Pre-Anesthetic Update Pre-Anesthetic Assessment: Date of Surgery/Procedure: 08/28/24 Proposed Procedure: Operation Date: 08/18/24 11:10 Proposed Procedures p ORIF Patella(Left) - Horace H Mahnaz, DO Operation Date: 08/28/24 16:25 Proposed Procedures p Incision & Drainage Lower Extremity(Left) - Horace H Mahnaz, DO Changes from Pre-Anesthetic Assessment: Patient returns to the OR today with concerns for surgical site infection. Prior GA without issues History of KYLE, no treatment. Type 2 diabetes. BS 102. CAD with hypertension. Numerous allergies noted. Labs from today reviewed and acceptable for procedure. Plan for general anesthesia Last Intake: Intake Last Liquid Date 08/27/24 Last Liquid Time 23:00 Last Solid Date 08/27/24 Last Solid Time 20:00 Labs Last 48hrs: Short CBC 08/27/24 08/28/24 Range/Units 05:01 04:39 WBC 8.61 7.48 (3.29-11.43) 10^ 3/uL Hgb 9.80 L 9.30 L (11.27-16.99) g/ dL Hct 30.8 L 29.4 L (36-47) % MCV 93.1 94.2 (85-98) fl Plt Count 297 338 (157-399) 10^3/c mm Neut % (Auto) 63.0 60.8 % Neut # (Auto) 5.42 4.54 (1.8-7.7) 10^3/u L BMP 08/27/24 08/28/24 05:01 04:39 Sodium 136 136 Potassium 4.3 4.0 Chloride 100 101 Carbon Dioxide 28 27 BUN 12 10 Creatinine 0.6 0.5 Glucose 105 116 H Calcium 9.5 9.0 Liver Function 08/27/24 08/28/24 Range/Units 05:01 04:39 Total Bilirubin 0.3 0.2 (0.15-1.2) mg/dL AST 16 16 (0-32) U/L ALT 19 19 (0-33) U/L Alkaline Phosphata se 109 H 105 (35-105) U/L Albumin 2.6 L 2.5 L (3.5-5.2) g/dL Vitals: Temperature 97.8 F 08/28/24 14:16 Temperature Source Oral 08/28/24 12:00 Pulse Rate 84 08/28/24 14:16 Pulse Rhythm Regular 08/26/24 19:26 Pulse Strength 2+ Slightly Dimin ished 08/26/24 19:26 Respiratory Rate 16 08/28/24 14:16 Respiratory Effort Spontaneous, Non- Labored 08/28/24 08:00 Respiratory Depth Normal 08/28/24 08:00 Respiratory Patter n Normal 08/28/24 08:00 Blood Pressure 160/74 08/28/24 14:16 Blood Pressure Shen[place] n 102 08/28/24 14:16 Blood Pressure Pos ition Semi Fowlers 08/25/24 04:00 Pulse Oximetry 94 08/28/24 14:16 Oxygen Delivery Me thod Room Air 08/28/24 14:16 Oxygen Flow Rate 3 08/18/24 17:01 Sepsis Recent Feve r Within 48 Hours No 08/17/24 11:45 Cardiac Studies: Echocardiogram 11/14/21 Sestamibi Stress Test (Cardiology) 07/09/23 Cardiac Event Monitor 08/09/23 Holter Monitor 04/29/21
[2024-08-28] MEDS: cefTRIAXone 2,000 mg SDV 2000 MG IVP (15:03)
--- NOTE | 2024-08-28 15:15 | W.PM.OPSUD ---
Surgery/Procedure H&P Update DATE OF PROCEDURE: August 28, 2024 DATE H&P PERFORMED: 08/17/24 H&P UPDATE INFORMATION: I have reviewed H&P completed within last 30 days, I have examined patient prior to procedure and No changes to prior documentation PLANNED PROCEDURE: Operation Date: 08/18/24 11:10 Proposed Procedures p ORIF Patella(Left) - Horace Joya DO Operation Date: 08/28/24 16:25 Proposed Procedures p Incision & Drainage Lower Extremity(Left) - Horace Joya DO
--- NOTE | 2024-08-28 15:16 | PC.SOCIAL ---
IMM updated IMM dated and initialed, copy given to patient and copy placed in chart.
--- NOTE | 2024-08-28 16:16 | PM.OP ---
Operative Report Date of procedure: August 28, 2024 Pre-op diagnosis: Infected knee on the left Post-op diagnosis: same Procedure done: Irrigation debridement of the knee including joint Surgeon: Horace Joya DO Estimated blood loss (mL): 25 Procedure: Irrigation debridement of the knee including joint Patient brought the operative suite. She is approximately 1 week out from patella ORIF with suture. She had a comminuted superior pole of her patella. At this point skin incision was opened she had a opening distally. Knots look to be loose in the suture. Suture was removed from the patella the wound was closed grossly infected. Knee aspiration was done which showed cloudy fluid through the fracture I could irrigate out the joint. Joint was irrigated out as well. Once the wound was done being irrigated and necrotic tissue was debrided with sharp dissection including the bone of the patella which is used a curette to remove any necrotic looking bone once the wound was completely debrided wound was then irrigated with saline and then closed in a layered fashion with PDS and nylon suture. Sterile dressings were applied and patient was transferred to the PACU in stable condition.
[2024-08-28] MEDS: fentaNYL 50 mcg/mL INJ 2mL IVP ×2 (16:36→16:45)
[2024-08-28] MEDS: acetaminophen 1,000 MG/100 ML PIGGYBACK 400 MG IV (17:05)
[2024-08-28] MEDS: losartan 50 mg Tablet 100 MG PO (17:22)
[2024-08-28] MEDS: acetaminophen 325 mg Tablet 650 MG PO (20:14)
[2024-08-28 20:40] LABS: Glucose Point of Care 103 mg/dL (70-110)
--- NOTE | 2024-08-28 20:45 | P.PN_ITS ---
Subjective 2 Subjective: Her left knee has been bothering her. Otherwise she states she doing okay. No trouble breathing. No chest pain or pressure. She tells me she is awaiting surgical procedure for debridement. Vitals/I&O/Wt Last Vital Signs Temp 97.7 F 08/28/24 20:00 Pulse 67 08/28/24 20:00 Resp 18 08/28/24 20:00 BP 104/43 08/28/24 20:00 Pulse Ox 97 08/28/24 20:00 O2 Del Method Nasal Cannula 08/28/24 20:00 O2 Flow Rate 2 08/28/24 20:00 08/28/24 08/28/24 08/28/24 06:59 14:59 22:59 Intake Total 239.5 / 239.5 Output Total 300 / 1200 600 / 600 20 / 620 Balance -300 / 980 -600 / -600 219.5 / -380.5 Weight last 48 hrs Weight 100.199 kg Weight 101.922 kg Physical Exam 2 Const: COMMON NORMALS: patient oriented x3 and alert GENERAL APPEARANCE: c ooperative ORIENTATION/CONSCIOUSNESS: Yes awake HENMT: COMMON NORMALS: oropharynx normal Neck/C-Spine: COMMON NORMALS: no JVD Resp: COMMON NORMALS: normal respiratory effort and clear to auscultation bilaterally AUSCULTATION: clear to auscultation bilaterally Cardio: COMMON NORMALS: no JVD, regular rhythm, S1 normal heart sound present, S2 normal heart sound present and No murmurs present (Cardio) RHYTHM: regular rhythm HEART SOUNDS: S1 normal heart sound present and S2 normal heart sound present GI: COMMON NORMALS: Normal to inspection, nondistended, normoactive bowel sounds present, Soft to palpation and non-tender PALPATION: Yes Soft to palpation Extremity: COMMON NORMALS: no joint enlargement and no pedal edema N ARRATIVE EXTREMITY EXAM: Left leg surgical dressing, knee brace in place. Neuro: COMMON NORMALS: patient oriented x3 and moves all extremities S ENSORIUM/ORIENTATION: Yes alert Skin: COMMON NORMALS: no rashes or lesions noted GENERAL SKIN EXAM: no rashes or lesions noted Urinary Catheter Management: Germain: Cath Placed During This Visit: yes, but has since been removed by the nurse Reason for Continuing Indwelling Catheter: Perioperative Use in Selected Surgeries Urinary Catheter Date of Insertion: 04/06/25 Urinary Catheter Time of Insertion: 21:04 Date Urinary Catheter Removed: 08/21/24 Time Urinary Catheter Discontinued: 06:19 Data 08/28/24 04:39 08/28/24 04:39 Micro: Microbiology 08/23/24 08:30 Anaerobic Culture - Preliminary Knee - #1 A&P Assessment and plan (1) Postoperative wound cellulitis: (2) Bacteremia due to Klebsiella pneumoniae: Plan Patient admitted with patellar fracture s/p ORIF with fibrewire on 08/18 with course complicated by cellulitis and drainage Wound cx from draining wound with Klebsiella Pneumonia similar organism on blood cultures Going for surgical debridement today. Reviewed vitals, CBC, CMP, blood culture. Reviewed surgery note. Discussed with nursing, correctional counselor/case manager. Ccontinue Ceftriaxone Patint has a Picc line placed 08/25, anticipate 2-3 weeks of abx at this time. further course will remain dependent on clinical progress Adrenal insufficiency: Continue hydrocortisone. Monitor for risk of hyperglycemia, immunocompromise. PDMP PDMP Reviewed: Not Reviewed Attestations 2 Medical Necessity Statement*: Continue admission for assessment and management of left knee wound infection after ORIF, purulent cellulitis, bacteremia. and High MDM includes amount and/or complexity of data reviewed/ordered [ previous or external records, resulted lab(s)/test(s), ordered lab(s)/test(s) and other healthcare professional discussion] and described risk of complication, morbidity or mortality of management as documented Diagnoses Postoperative wound cellulitis T81.49XA Bacteremia due to Klebsiella pneumoniae R78.81; B96.1
[2024-08-28] MEDS: insulin glargine 100 units/1 mL 30 UNIT SUBCUT (21:40)
[2024-08-28] MEDS: ARIPiprazole 2 mg Tablet PO (21:40)
[2024-08-29] VITALS: BP 113/54; PULSE 72; RESP 18; TEMP 36.7; O2SAT 94
[2024-08-29] MEDS: acetaminophen 325 mg Tablet 650 MG PO ×2 (03:56→10:23)
[2024-08-29 04:00] VITALS: BP 136/55; PULSE 82; RESP 17; TEMP 36.7; O2SAT 97
[2024-08-29 04:54] LABS: Basophils % 0.3 %; Eosinophils # 0.1 10^3/uL (0.0-0.8); Eosinophils % 0.9 %; Hematocrit 32.7 % (36-47); Lymphocytes # 1.8 10^3/uL (0.8-4.8); Lymphocytes % 18.9 %; Mean Corpuscular HGB Conc 30.9 g/dL (30-55); Mean Corpuscular Hemoglobin 29.5 pg (27-33); Mean Corpuscular Volume 95.6 fl (85-98); Mean Platelet Volume 10.1 fL (7.4-10.4); Monocytes % 9.8 %; Neutrophils # 6.66 10^3/uL (1.8-7.7); Nucleated Red Blood Cells % 0 %; Platelet Count 388 10^3/cmm (157-399); Red Blood Count 3.42 10^6/uL (3.85-5.65); Red Cell Distribution Width 14.3 % (12.1-15.1); White Blood Count 9.67 10^3/uL (3.29-11.43)
[2024-08-29 05:19] LABS: Alanine Aminotransferase 19 U/L (0-33); Albumin Level 2.7 g/dL (3.5-5.2); Alkaline Phosphatase 117 U/L (35-105); Anion Gap 12.9 (5-19); Aspartate Amino Transferase 15 U/L (0-32); Blood Urea Nitrogen 7 mg/dL (8-23); Carbon Dioxide 25 mmol/L (22-29); Chloride 102 mmol/L (98-107); Creatinine Clr Calc Pharmacy 62.2692; Globulin 3.5 g/dL (1.3-4.6); Glucose 105 mg/dL (65-115); Osmolality Calculated 280 mOsm/kg (285-295); Potassium 3.9 mmol/L (3.5-5.1); Sodium 136 mmol/L (136-145); Total Bilirubin 0.3 mg/dL (0.15-1.2); Total Protein 6.2 g/dL (6.6-8.7)
[2024-08-29] MEDS: pantoprazole DR 40 mg Tablet PO (06:01)
[2024-08-29] MEDS: TRAMadol 50 mg Tablet 100 MG PO ×2 (06:01→12:50)
[2024-08-29 06:29] LABS: Glucose Point of Care 89 mg/dL (70-110)
[2024-08-29 08:00] VITALS: BP 151/61; PULSE 74; RESP 17; TEMP 37.1; O2SAT 95
--- NOTE | 2024-08-29 08:16 | P.PN_ITS ---
Subjective 2 Subjective: Patient's pain is proved in her knee. Vitals/I&O/Wt Last Vital Signs Temp 98.8 F 08/29/24 08:00 Pulse 74 08/29/24 08:00 Resp 17 08/29/24 08:00 BP 151/61 08/29/24 08:00 Pulse Ox 95 08/29/24 08:00 O2 Del Method Room Air 08/29/24 08:00 O2 Flow Rate 2 08/29/24 04:00 08/28/24 08/29/24 08/29/24 22:59 06:59 14:59 Intake Total 439.5 / 439.5 800 / 1239.5 120 / 120 Output Total 620 / 1220 350 / 1570 Balance -180.5 / -780.5 450 / -330.5 120 / 120 Weight last 48 hrs Weight 217 lb Weight 220 lb 14.4 oz Physical Exam 2 Narrative: Patient's resting in bed pain is much more controlled. Urinary Catheter Management: Germain: Cath Placed During This Visit: yes, but has since been removed by the nurse Reason for Continuing Indwelling Catheter: Perioperative Use in Selected Surgeries Urinary Catheter Date of Insertion: 08/27/24 Urinary Catheter Time of Insertion: 21:04 Date Urinary Catheter Removed: 08/21/24 Time Urinary Catheter Discontinued: 06:19 Data 08/29/24 03:55 08/29/24 03:55 Micro: Microbiology 08/24/24 04:34 Blood Culture - Final Blood NO GROWTH AFTER 5 DAYS 08/23/24 08:30 Anaerobic Culture - Preliminary Knee - #1 A&P Assessment and plan (1) Closed fracture of left patella: Patient is postop day 1 irrigation debridement of knee. Cultures were taken. Discharge planning. PDMP PDMP Reviewed: Not Reviewed Attestations 2 Medical Necessity Statement*: Per primary Coding Level of Care Code Acute Code for Chg Fwd Diagnoses Closed fracture of left patella S82.002A
[2024-08-29] MEDS: carvedilol 12.5 mg Tablet PO (08:41)
[2024-08-29] MEDS: sodium chloride 1 gm Tablet PO (08:41)
[2024-08-29] MEDS: nystatin 100,000 unit/mL UDC 5 mL 100000 UNIT PO ×2 (08:41→12:51)
[2024-08-29] MEDS: amlodipine 10 mg Tablet PO (08:41)
[2024-08-29] MEDS: hydrocortisone 10 mg Tablet PO ×2 (08:41→12:50)
[2024-08-29] MEDS: isosorbide mononitrate ER 60 mg Tablet 120 MG PO (08:41)
[2024-08-29] MEDS: lidocaine 5% Patch 2 PATCH TOPICAL (08:42)
[2024-08-29] MEDS: heparin 5,000 unit/mL INJ 1 mL 5000 UNIT SUBCUT (08:42)
[2024-08-29] MEDS: insulin glargine 100 units/1 mL 30 UNIT SUBCUT (08:42)
[2024-08-29 11:16] LABS: SARS Covid-2 Antigen Negative (Negative)
[2024-08-29] MEDS: insulin lispro 100 unit/1 mL SUBCUT (11:31)
[2024-08-29 11:38] LABS: Glucose Point of Care 238 mg/dL (70-110)
[2024-08-29 12:00] VITALS: BP 114/52; PULSE 69; RESP 18; TEMP 37.1; O2SAT 94
[2024-08-29] MEDS: cefTRIAXone 2,000 mg SDV 2000 MG IVP (12:51)
[2024-08-29 13:40] VITALS: BP 114/52; PULSE 69; RESP 16; TEMP 37.1; O2SAT 94
--- NOTE | 2024-08-29 14:22 | P.DS_ITS ---
Discharge Providers Date of Admission: 08/17/24 14:50 Date of Discharge: August 29, 2024 Attending Provider at Admission: Ines Horton Attending Provider at Discharge: Paul Jean MD Consults: Infectious disease Orthopedic surgery Primary Care Provider: Arabella Orta MD Diagnoses at Discharge Discharge Diagnosis (1) Closed fracture of left patella: Status: Acute Reason for Visit Reason for Visit: weaknes; UTI Brief History: Brandi Berg is a 79 year old female past medical history of diabetes, Krypton's disease, hypertension, hyperlipidemia, coronary artery disease status post three stents, and osteoporosis presents with a left patellar fracture and back pain following a fall yesterday. The Patient fell while being assisted out of a wheelchair by her after an eye doctor appointment. They both fell. The Patient was unable to get up independently and required assistance with EMS however did not come to ER until today. She denied any head trauma. The Patient reports pain in her left knee and back. She describes the back pain as well on her right side. The Patient's medications include hydrocodone 10mg every 6 hours for chronic pain, hydrocortisone for Zeb's disease, medication for high blood pressure, and Lipitor. She previously took aspirin and Plavix but discontinued them due to bruising. The Patient uses Humalog and triseba insulin for diabetes. . Initial evaluation revealed a left patellar fracture, and an immobilizer was placed on her left leg. The Patient is scheduled for surgery tomorrow with Dr. Joya. Hospital Course Hospital Course Brandi Berg is a 79 year old female past medical history of diabetes, Krypton's disease, hypertension, hyperlipidemia, coronary artery disease status post three stents, and osteoporosis presents with a left patellar fracture and back pain following a fall, initially found to have patellar fracture. Orthoped ic surgery consulted and she underwent ORIF with FiberWire on August 18. She was found to have Klebsiella pneumonia infection. Her urine culture on August 15 just prior to admission revealed Klebsiella pneumoniae. She was also found to have Klebsiella pneumoniae bacteremia. She was found to have cellulitis around her surgical site of the left knee. Infectious disease was consulted and assisted in antibiotic management. Patient again underwent incision and drainage of infected left knee on August 28 to further optimize source control. PICC line was placed for continued IV antibiotics. Patient discharged to nursing facility for ongoing care. Physical Exam Narrative: General: Patient is awake and alert. Head: Normocephalic. Atraumatic. EOM intact. Neck: No JVD. Cardiovascular: RRR. No gallops. No murmurs. Lungs: Clear to auscultation, no use of accessory muscles, no crackles or wheeze s. Skin: No jaundice. No rashes. Abdomen: Normal bowel sounds, abdomen soft and nontender. Extremities: No cyanosis or clubbing. Musculoskeletal: Left lower extremity is wrapped in surgical bandages. Neurological: No myoclonus. Urinary Catheter Management: Germain: Cath Placed During This Visit: yes, but has since been removed by the nurse Reason for Continuing Indwelling Catheter: Decision to DC Catheter Urinary Catheter Date of Insertion: 08/27/24 Urinary Catheter Time of Insertion: 21:04 Date Urinary Catheter Removed: 08/29/24 Time Urinary Catheter Discontinued: 12:45 Discharge Data Studies Completed and Pending Completed Studies During Hospitalization Category Date Time Status CXRP [XR chest 1V portable [id number]] Routine Exams 08/25/24 12:39 Completed XR knee LT 3V* [id number] Routine Exams 08/18/24 00:00 Completed XR knee LT 3V* [id number] Stat Exams 08/17/24 12:19 Completed XR knee RT 1-2V [id number] Routine Exams 08/27/24 15:59 Completed XR lumbar spine 2-3V* [id number] Routine Exams 08/27/24 15:59 Completed XR pelvis 1-2V* [id number] Stat Exams 08/17/24 12:19 [place] [id number] Routine Ultrasound 08/26/24 15:13 Completed Pending at discharge Category Date Time Status Anaerobic Culture Routine Lab 08/28/24 15:53 Results Anaerobic Culture Stat Lab 08/23/24 08:30 Results Blood Culture AM LABS Lab 08/24/24 04:34 Results Blood Culture Stat Lab 08/25/24 12:45 Results Body Fluid Culture & GS Routine Lab 08/28/24 15:53 Results Wound Culture and Gram Stain Routine Lab 08/28/24 15:53 Results Radiology Impressions Pelvis X-Ray 08/17/24 12:19 IMPRESSION: 1. Very limited exam however no obvious pelvic fracture noted. Recommendation: If there is high clinical suspicion for pelvic fracture then CT might be considered for further work-up. Chest X-Ray 08/25/24 12:39 IMPRESSION: PICC line position as above. Over the phone (1:20 p.m.) it was recommended through the research food technologist to advance the PICC line but no more than 4 cm if there was any remaining PICC line to advance. PICC line will be properly functional in its current position. Venous Duplex 08/26/24 15:13 IMPRESSION: No evidence of deep vein thrombosis. Knee X-Ray 08/27/24 15:59 IMPRESSION: 1. No acute osseous plain-film findings identified. 2. [id number] osteoarthritic/degenerative changes similar to earlier films from 02/10/2023. 3. Generalized osteopenia. Lumbar Spine X-Ray 08/27/24 15:59 IMPRESSION: 1. No gross compressive changes in this patient with suspected osteopenia; however, if further discrimination is needed a CT or MRI are suggested for your consideration. 2. Multilevel osteoarthritic/degenerative changes involving the lumbosacral region. 3. Less than optimal visualization of osseous structures including the sacrum due to marked overlying soft tissue challenging penetration. Laboratory Results WBC 9.67 10^3/uL (3.29-11.43) 08/29/24 03:55 RBC 3.42 10^6/uL (3.85-5.65) L 08/29/24 03:55 Hgb 10.10 g/dL (11.27-16.99) L 08/29/24 03:55 Hct 32.7 % (36-47) L 08/29/24 03:55 MCV 95.6 fl (85-98) 08/29/24 03:55 MCH 29.5 pg (27-33) 08/29/24 03:55 MCHC 30.9 g/dL (30-55) 08/29/24 03:55 RDW 14.3 % (12.1-15.1) 08/29/24 03:55 Plt Count 388 10^3/cmm (157-399) 08/29/24 03:55 MPV 10.1 fL (7.4-10.4) 08/29/24 03:55 Neut % (Auto) 69.0 % 08/29/24 03:55 Lymph % (Auto) 18.9 % 08/29/24 03:55 [place] % (Auto) 9.8 % 08/29/24 03:55 Eos % (Auto) 0.9 % 08/29/24 03:55 Baso % (Auto) 0.3 % 08/29/24 03:55 Neut # (Auto) 6.66 10^3/uL (1.8-7.7) 08/29/24 03:55 Lymph # (Auto) 1.8 10^3/uL (0.8-4.8) 08/29/24 03:55 [place] # (Auto) 1.0 10^3/uL (0.2-0.9) H 08/29/24 03:55 Eos # (Auto) 0.1 10^3/uL (0.0-0.8) 08/29/24 03:55 Baso # (Auto) 0.0 10^3/uL (0.0-0.1) 08/29/24 03:55 Nucleated RBC % (auto) 0 % 08/29/24 03:55 Nucleated RBCs # 0.0 /100WBC 08/29/24 03:55 Sodium 136 mmol/L (136-145) 08/29/24 03:55 Potassium 3.9 mmol/L (3.5-5.1) 08/29/24 03:55 Chloride 102 mmol/L (98-107) 08/29/24 03:55 Carbon Dioxide 25 mmol/L (22-29) 08/29/24 03:55 Anion Gap 12.9 (5-19) 08/29/24 03:55 BUN 7 mg/dL (8-23) L 08/29/24 03:55 Creatinine 0.5 mg/dL (0.5-0.9) 08/29/24 03:55 GFR Calculation Not Reportable 08/29/24 03:55 Glucose 105 mg/dL (65-115) 08/29/24 03:55 POC Glucose 238 mg/dL (70-110) H 08/29/24 11:28 Estimat Average Glucose 189 08/22/24 14:08 Hemoglobin A1c 8.2 % (4.0-6.0) H 08/22/24 14:08 Calculated Osmolality 280 mOsm/kg (285-295) L 08/29/24 03:55 Calcium 9.0 mg/dL (8.5-10.5) 08/29/24 03:55 Iron 11 ug/dL (37-145) L 08/22/24 14:08 TIBC 146 mcg/dl 08/22/24 14:08 % Saturation 7.5 % (20-50) L 08/22/24 14:08 Unsat Iron Binding 135 ug/dL (112-347) 08/22/24 14:08 Total Bilirubin 0.3 mg/dL (0.15-1.2) 08/29/24 03:55 AST 15 U/L (0-32) 08/29/24 03:55 ALT 19 U/L (0-33) 08/29/24 03:55 Alkaline Phosphatase 117 U/L (35-105) H 08/29/24 03:55 Total Protein 6.2 g/dL (6.6-8.7) L 08/29/24 03:55 Albumin 2.7 g/dL (3.5-5.2) L 08/29/24 03:55 Globulin 3.5 g/dL (1.3-4.6) 08/29/24 03:55 Triglycerides 180 mg/dL (0-150) H 08/23/24 05:53 Cholesterol 145 mg/dL (0-200) 08/23/24 05:53 LDL Cholesterol, Calc 76 mg/dL (50-129) 08/23/24 05:53 Total VLDL Cholesterol 36 mg/dL (0-30) H 08/23/24 05:53 HDL Cholesterol 33 mg/dL (60-100) L 08/23/24 05:53 Cholesterol/HDL Ratio 4.39 mg/dL (0.0-4.40) 08/23/24 05:53 Lipase 11 U/L (13-60) L 08/17/24 11:40 Vitamin B12 672 pg/mL (232-1245) 08/22/24 14:08 Folate 11.5 ng/mL (4.8-37.3) 08/23/24 05:53 TSH 0.35 uIU/mL (0.27-4.20) 08/22/24 14:08 Urine Color Yellow (Yellow) 08/17/24 13:10 Urine Appearance Turbid (CLEAR) A 08/17/24 13:10 Urine pH 7.0 (5-7) 08/17/24 13:10 Ur Specific [place] 1.014 (1.005-1.030) 08/17/24 13:10 Urine Protein Negative (Negative) 08/17/24 13:10 Urine Glucose (UA) 2+ (Normal) H 08/17/24 13:10 Urine Ketones 1+ (Negative) H 08/17/24 13:10 Urine Blood Negative (Negative) 08/17/24 13:10 Urine Nitrate Negative (Negative) 08/17/24 13:10 Urine Bilirubin Negative (Negative) 08/17/24 13:10 Urine Urobilinogen 1.0 mg/dL (Negative) 08/17/24 13:10 Ur Leukocyte Esterase Negative (Negative) 08/17/24 13:10 Urine RBC 0-2 /hpf (0-2) 08/17/24 13:10 Urine WBC 0-5 /hpf (0-5) 08/17/24 13:10 Ur Squamous Epith Cells 0-5 /hpf (0-5) 08/17/24 13:10 Amorphous Sediment Not Reportable 08/17/24 13:10 Urine Bacteria None seen /hpf (NONE) 08/17/24 13:10 Hyaline Casts 0.81 /lpf 08/17/24 13:10 Nasal MRSA (PCR) Not detected (Not Detecte) 08/24/24 09:18 SARS-CoV-2 Ag (Rapid) Negative (Negative) 08/29/24 10:25 Vitals Last Vital Signs Temp 98.7 F 08/29/24 13:40 Pulse 69 08/29/24 13:40 Resp 16 08/29/24 13:40 BP 114/52 08/29/24 13:40 Pulse Ox 94 08/29/24 13:40 O2 Del Method Room Air 08/29/24 12:00 O2 Flow Rate 2 08/29/24 04:00 Discharge Plan Discharge Patient Disposition: Xfer SNF Condition: Stable Prescriptions: New nystatin 100,000 unit/mL Suspension 100,000 unit PO QID 10 Days Qty: 40 0RF carvedilol 12.5 mg Tablet 12.5 mg PO BID 30 Days Qty: 60 0RF lidocaine 5 % Adhesive Patch,Medicated 2 patch topical DAILY 30 Days Qty: 60 0RF sodium chloride 1,000 mg tablet,soluble 1,000 mg PO DAILY Qty: 30 0RF Continued cholecalciferol (vitamin D3) 1,000 unit capsule 1,000 unit PO QPM cranberry 500 mg capsule 500 mg PO QPM ferrous sulfate 325 mg (65 mg iron) tablet 325 mg PO DAILY@12 magnesium oxide 400 mg (241.3 mg magnesium) tablet 500 mg PO DAILY@12 (DME) hinged knee brace left See Rx Instructions .Route .MEDSUPPLY Qty: 1 0RF Rx Instructions: As directed diclofenac sodium 1 % gel 4 g topical QID Qty: 100 3RF Rx Instructions: apply to single knee, ankle, foot; for foot includes sole/toes/top of foot potassium chloride 8 mEq capsule, extended release 24 meq PO QAM (DME) FreeStyle Tor 2 Sensor Kit See Rx Instructions .MEDSUPPLY Qty: 3 3RF Rx Instructions: As directed (DME) FreeStyle Tor 2 [place] Misc See Rx Instructions .Route Qty: 1 0RF Rx Instructions: As directed esomeprazole magnesium 40 mg capsule,delayed release(DR/EC) 40 mg PO QAM melatonin 3 mg capsule 3 mg PO BEDTIME (DME) blood sugar diagnostic Strip See Rx Instructions .Route Qty: 400 3RF Rx Instructions: Check blood sugar 4 times a day. (DME) lancets [Comfort EZ Lancets] 21 gauge misc See Rx Instructions .Route Qty: 400 3RF Rx Instructions: As directed (DME) Easymax 15 test strips Strip See Rx Instructions .Route Qty: 400 3RF Rx Instructions: Check BS 4 times a day. nitroglycerin 0.4 mg tablet, sublingual 0.4 mg sublingual Q5M PRN (Reason: chest pain) 30 Days Qty: 30 3RF Rx Instructions: until response; do not exceed 3 doses per episode isosorbide mononitrate 120 mg tablet extended release 24 hr 120 mg PO DAILY@12 Qty: 90 3RF (DME) dhaval LT knee Brace See Rx Instructions .Route .MEDSUPPLY Qty: 1 0RF Rx Instructions: As directed (DME) pen needle, diabetic [BD Ultra-Fine Mini Pen Needle] 31 gauge x 3/16 needle See Rx Instructions .ROUTE .COMPLEX Qty: 400 0RF Dose Instruction: USE WITH INSULIN FOUR TIMES DAILY Rx Instructions: USE WITH INSULIN FOUR TIMES DAILY hydrocodone-acetaminophen 10-325 mg tablet 1 tab PO Q6H MDD 6 PRN (Reason: pain) 7 Days Qty: 28 0RF hydrocortisone 10 mg tablet See Rx Instructions .ROUTE .COMPLEX Qty: 120 0RF Dose Instruction: TAKE 1 TABLET BY MOUTH FOUR TIMES DAILY Rx Instructions: TAKE 1 TABLET BY MOUTH FOUR TIMES DAILY aripiprazole 2 mg tablet See Rx Instructions .ROUTE .COMPLEX Qty: 30 2RF Dose Instruction: TAKE 1 TABLET BY MOUTH AT BEDTIME Rx Instructions: TAKE 1 TABLET BY MOUTH AT BEDTIME insulin degludec [Tresiba FlexTouch U-200] 200 unit/mL (3 mL) insulin pen See Rx Instructions .ROUTE .COMPLEX Qty: 9 0RF Dose Instruction: ADMINISTER 64 UNITS UNDER THE SKIN DAILY Rx Instructions: ADMINISTER 64 UNITS UNDER THE SKIN DAILY vitamin E 1,000 unit Capsule 1,000 unit PO QAM ascorbic acid (vitamin C) [Vitamin C] 500 mg Tablet,Chewable 500 mg PO QNOON lactulose 10 gram/15 mL solution 15 ml PO DAILY PRN (Reason: Constipation) torsemide 20 mg tablet 20 mg PO BID amlodipine 10 mg tablet 10 mg PO DAILY valsartan 320 mg tablet 320 mg PO QPM insulin lispro [Humalog KwikPen Insulin] 100 unit/mL insulin pen 28 unit SUBCUT TID Rx Instructions: after meals, based on sliding scale provided Discharge Orders: Discharge Order (Routine); Ordered 08/29/24 Ordered By: Paul Jean Referrals: Jenn Alberts FNP-MARK [Physician Production Material Handler] - 09/15/24 11:30 am Arabella Orta MD [Primary Care Provider] - Nicolasa Anne MD [Hospitalist] - 09/12/24 3:00 pm Discharge Diet: Advance as tolerated and Usual diet Discharge Activity: Resume usual activity and Increase activity as tolerated Patient Instructions: Acute Wound Care (DC), Bacteremia (GEN), Patellar Fracture Repair (GEN), Post Anesthesia Care Activity Restrictions/Additional Instructions: You are being discharged from the hospital today during which time you have been under the care of Dr. Joya. You had a left patella fracture. You were treated for this injury with patella open reduction internal fixation. You may resume you normal diet (including any special diets as directed by your primary doctor) as well as your home medications. You should follow up with you primary doctor if you have any questions regarding medication you took prior to your stay in the hospital. You may take your pain medication as prescribed. After the first few days, take your pain medication as needed. Do not drive or drink alcohol while taking your pain medication. Your injury may increase your risk of developing a blood clot,or DVT, in your arm or leg. This could potentially dislodge and travel to your lungs and become a life threatening condition called apulmonary embolus,or PE. You have been prescribed either aspirin or Eliquis to be taken to prevent this. Frequent movement of the legs will also help prevent this from occurring. If you develop any new or worsening cough, chestpain, bloody sputum or shortness of breath, call 911 or go to the EmergencyRoom. Always keep your surgical incision/dressing clean and dry. If you experience increasing pain at your incision site, redness, swelling, increasing discharge, foul odors, or fevers (greater than 100.4), night sweats or chills you should call the office at the above number. If you feel this is an emergency you should be evaluated in the Emergency Department of a nearby hospital. Orthopedic Patient Instructions Summary: Weight Bearing: Nonweightbearing left lower extremity except for when leg is fully extended Activity: As tolerated. Diet: Regular. Wound Care: Keep dressing clean and dry. Anticoagulation: Aspirin or Eliquis Pain Medication: Take only as needed. Ice, rest and elevation will be of great benefit. Please plan to follow-up [facility] Dr Joya in 2 weeks. You will need to call the clinic [phone] to schedule this visit. Thank you far allowing me to participate in your care. Do not hesitate to call the office with any questions or concerns. Discharge Attestations Time Spent in Discharge Care*: greater than 30 min Quality Metrics Clinical Quality Measures [ No reported AMI, CVA or VTE this stay] Coding Level of Care Code Acute Code for Chg Fwd Diagnoses Closed fracture of left patella S82.002A
--- NOTE | 2024-08-29 15:09 | PC.OT ---
PATIENT D/C BEFORE OT EVALUATION COULD BE COMPLETED
== END 2024-08-29 13:42 | disposition skilled nursing facility (03) | DRG 488 ==
LOC: ER 14:21 → ER IP 14:50 → MEDSURG 15:17
PROVIDERS: Internal Medicine; Orthopaedic Surgery; Student in an Organized Health Care Education/Training Program; Admitting Provider Hospitalist; Emergency Provider Emergency Medicine; PCP Family Medicine; Visit Provider Internal Medicine
PROC: 0QSF04Z Reposition Left Patella with Internal Fixation Device, Open Approach (ICD-10-PCS; CPT 27524; principal; 2024-08-18 11:00)
PROC: 0QBF0ZZ Excision of Left Patella, Open Approach (ICD-10-PCS; principal; 2024-08-28 16:15)
DX: S82.042A Displaced comminuted fracture of left patella, initial encounter for closed fracture (principal); E27.1 Primary adrenocortical insufficiency; L03.116 Cellulitis of left lower limb; T81.42XA Infection following a procedure, deep incisional surgical site, initial encounter; N17.9 Acute kidney failure, unspecified; E87.1 Hypo-osmolality and hyponatremia; F31.81 Bipolar II disorder; W05.0XXA Fall from non-moving wheelchair, initial encounter; E11.65 Type 2 diabetes mellitus with hyperglycemia; I10 Essential (primary) hypertension; E78.5 Hyperlipidemia, unspecified; I25.10 Atherosclerotic heart disease of native coronary artery without angina pectoris; Z95.5 Presence of coronary angioplasty implant and graft; M81.0 Age-related osteoporosis without current pathological fracture; Z79.891 Long term (current) use of opiate analgesic; B96.1 Klebsiella pneumoniae [K. pneumoniae] as the cause of diseases classified elsewhere; Z79.4 Long term (current) use of insulin; E66.01 Morbid (severe) obesity due to excess calories; Z68.38 Body mass index [BMI] 38.0-38.9, adult; R30.0 Dysuria; M54.41 Lumbago with sciatica, right side; Z96.643 Presence of artificial hip joint, bilateral; Z87.440 Personal history of urinary (tract) infections; E86.0 Dehydration
CPT/HCPCS: 36415; 36416; 36573; 36592; 51702; 71045; 72100; 72170; 73560; 73562; 76000; 80048; 80053; 80061; 81001; 82607; 82746; 82962; 83036; 83540; 83550; 83690; 84443; 85025; 87040; 87070; 87075; 87077; 87086; 87150; 87186; 87205; 87426; 93970; 96372; 97161; 97165; 97530; 99285; C1713; J0131; J0696; J1100; J1644; J1720; J1815; J2185; J2405; J2704; J2795; J2919; J3010; J3370; J3490; J7030; J7050; J8499; J9999; L1830

== ENCOUNTER → 2024-09-12 15:05 | Outpatient (BNVA) | payer MEDICARE, OTHER, SELFPAY | PROVIDERS: PCP Family Medicine; Visit Provider Student in an Organized Health Care Education/Training Program | DX: T81.49XA Infection following a procedure, other surgical site, initial encounter (principal); R78.81 Bacteremia; B96.1 Klebsiella pneumoniae [K. pneumoniae] as the cause of diseases classified elsewhere; N39.0 Urinary tract infection, site not specified; X58.XXXA Exposure to other specified factors, initial encounter | CPT/HCPCS: 99215 ==

== ENCOUNTER → 2024-09-19 13:50 | Outpatient (BNVA) | payer MEDICARE, OTHER, SELFPAY | PROVIDERS: PCP Family Medicine; Visit Provider Orthopaedic Surgery | DX: S82.032D Displaced transverse fracture of left patella, subsequent encounter for closed fracture with routine healing (principal); X58.XXXD Exposure to other specified factors, subsequent encounter; Z98.890 Other specified postprocedural states | CPT/HCPCS: 73562; 99024 ==

== ENCOUNTER → 2024-09-26 13:18 | Outpatient (BNVA) | payer MEDICARE, OTHER, SELFPAY | PROVIDERS: PCP Family Medicine; Visit Provider Student in an Organized Health Care Education/Training Program | DX: R78.81 Bacteremia (principal); B96.1 Klebsiella pneumoniae [K. pneumoniae] as the cause of diseases classified elsewhere; T81.49XA Infection following a procedure, other surgical site, initial encounter; N39.0 Urinary tract infection, site not specified; X58.XXXA Exposure to other specified factors, initial encounter | CPT/HCPCS: 36415; 80053; 82248; 85025; 86140; 87070; 87075; 87205; 99214 ==

== ENCOUNTER 2024-10-02 22:52 | Emergency (ER) | payer MEDICARE, OTHER, SELFPAY ==
[2024-10-02 22:53] VITALS: BP 121/45; PULSE 70; RESP 18; TEMP 36.2; O2SAT 97
--- NOTE | 2024-10-02 23:06 | XRR_ITS ---
PROCEDURE INFORMATION: Exam: XR Chest Exam date and time: 10/02/2024 11:12 PM Age: 79 years old Clinical indication: Pain; Chest pressure; Additional info: Chest pain TECHNIQUE: Imaging protocol: Radiologic exam of the chest. Views: 1 view. COMPARISON: CR XR chest 1V portable [id number] 08/25/2024 1:11 PM FINDINGS: Tubes, catheters and devices: Right sided PICC line with tip approaching the atrial caval junction. Lungs: Left mid to lower lung field atelectasis versus infiltrate. Pleural spaces: Unremarkable. No pleural effusion. No pneumothorax. Heart/Mediastinum: Cardiomegaly. Bones/joints: Unremarkable. XR/XR chest 1V portable [id number] IMPRESSION: 1. Left mid to lower lung field atelectasis versus infiltrate. 2. Cardiomegaly. 3. Right sided PICC line with tip approaching the atrial caval junction.
--- NOTE | 2024-10-02 23:06 | ECG_ITS ---
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
--- NOTE | 2024-10-02 23:08 | W.ED.CHESTPA ---
HPI - Chest Pain General: Chief Complaint: Chest Pain Stated Complaint: CHEST PAIN Time Seen by Provider: 10/02/24 22:52 History of Present Illness: Patient is an 79-year-old female from home accompanied by seen for chest pain which she describes as 7 out of 10, aching, located in the left anterior chest radiating to the left thoracic back. Pain has been ongoing for the last several hours. Pain, rest. She has had multiple bouts of similar pain and been worked up multiple times for the same. She states that roughly 3 years ago she had 3 stents placed. She denies associated shortness of breath, lightheadedness, nausea, vomiting, recent sickness or fever or cough. She took 2 sublingual nitro tablets without resolution or change in pain. Related Data Home Medications ?Medication ?Instructions ?Recorded ?Confirmed cholecalciferol (vitamin D3) 25 1,000 unit PO QPM 06/01/19 09/26/24 mcg (1,000 unit) capsule cranberry 500 mg capsule 500 mg PO QPM 06/01/19 09/26/24 ferrous sulfate 325 mg (65 mg 325 mg PO DAILY@06/21/19 09/26/24 iron) tablet magnesium oxide 400 mg (241.3 mg 500 mg PO DAILY@02/14/21 09/26/24 magnesium) tablet ascorbic acid (vitamin C) 500 mg 500 mg PO QNOON 11/14/21 09/26/24 chewable tablet (Vitamin C) vitamin E 670 mg (1,000 unit) 1,000 unit PO QAM 11/14/21 09/26/24 capsule esomeprazole magnesium 40 mg 40 mg PO QAM 05/19/22 09/26/24 capsule,delayed release potassium chloride 8 mEq 24 meq PO QAM 05/19/22 09/26/24 capsule,extended release lactulose 10 gram/15 mL oral 15 ml PO DAILY PRN Constipation 06/23/23 09/26/24 solution melatonin 3 mg capsule 3 mg PO BEDTIME 11/18/23 09/26/24 amlodipine 10 mg tablet 10 mg PO DAILY 06/09/24 09/26/24 insulin lispro 100 unit/mL 28 unit SUBCUT TID 06/09/24 09/26/24 subcutaneous pen (Humalog KwikPen (U-100) Insulin) torsemide 20 mg tablet 20 mg PO BID 06/09/24 09/26/24 valsartan 320 mg tablet 320 mg PO QPM 06/09/24 09/26/24 Previous Rx's ?Medication ?Instructions ?Recorded blood sugar diagnostic #400 ea 09/02/21 lancets 21 gauge (Comfort EZ #400 ea 09/02/21 Lancets) blood sugar diagnostic (Easymax 15 #400 ea 09/11/21 test strips) flash glucose scanning reader #1 ea 02/17/22 (FreeStyle Tor 2 Lagrange) flash glucose sensor (FreeStyle #3 ea 02/17/22 Tor 2 Sensor kit) nitroglycerin 0.4 mg sublingual 0.4 mg sublingual Q5M PRN chest 08/04/23 tablet pain 30 days #30 tabs isosorbide mononitrate 120 mg 120 mg PO DAILY@12 #90 tabs 09/20/23 tablet,extended release 24 hr dhaval LT knee Brace #1 ea 06/30/24 pen needle, diabetic 31 gauge x #400 ea 07/03/2408/06 (BD Ultra-Fine Mini Pen Needle) hydrocodone 10 mg-acetaminophen 1 tab PO Q6H PRN pain 7 days #28 07/31/24 325 mg tablet tabs aripiprazole 2 mg tablet See Rx Instructions .Route 08/07/24 .COMPLEX #30 tabs hydrocortisone 10 mg tablet See Rx Instructions .Route 08/07/24 .COMPLEX #120 tabs diclofenac sodium 1 % topical gel 4 g topical QID #100 grams 08/09/24 hinged knee brace left #1 ea 08/09/24 insulin degludec 200 unit/mL (3 See Rx Instructions .Route 08/14/24 mL) subcutaneous pen (Tresiba .COMPLEX #9 mL FlexTouch U-200 insulin) sodium chloride 1,000 mg soluble 1,000 mg PO DAILY #30 tabs 08/29/24 tablet Allergies Allergy/AdvReac Type Severity Reaction Status Date / Time morphine Allergy Severe RESPIRATORY Verified 10/02/24 23:00 DISTRESS doxycycline Allergy Mild THROAT Verified 10/02/24 23:00 SWELLING duloxetine (From Cymbalta) Allergy Mild SWELLING, Verified 10/02/24 23:00 VOMITING metformin Allergy Mild THROAT Verified 10/02/24 23:00 SWELLING oxybutynin (From Oxytrol) Allergy Mild ALGY-Rash Verified 10/02/24 23:00 Penicillins Allergy Mild ALGY-Rash Verified 10/02/24 23:00 Sulfa (Sulfonamide Allergy Mild STOMACH Verified 10/02/24 23:00 Antibiotics) CRAMPS alprazolam (From Xanax) Allergy Unknown Unknown Verified 10/02/24 23:00 amitriptyline Allergy Unknown Unknown Verified 10/02/24 23:00 Barbiturates Allergy Unknown stomach Verified 10/02/24 23:00 cramps cefuroxime (From Ceftin) Allergy Unknown stomach Verified 10/02/24 23:00 cramps insulin detemir (From Allergy Unknown Unknown Verified 10/02/24 23:00 Levemir U-100 Insulin) levofloxacin (From Levaquin) Allergy Unknown Unknown Verified 10/02/24 23:00 liraglutide (From Victoza) Allergy Unknown Unknown Verified 10/02/24 23:00 metoclopramide (From Reglan) Allergy Unknown Unknown Verified 10/02/24 23:00 nitrofurantoin (From Allergy Unknown Unknown Verified 10/02/24 23:00 Macrobid) pregabalin (From Lyrica) Allergy Unknown Unknown Verified 10/02/24 23:00 divalproex sodium (From Allergy ALGY-Hives Verified 10/02/24 23:00 Depakote) gabapentin Allergy bone, Verified 10/02/24 23:00 muscle pain and mood swings hydrocodone Allergy ALGY-Hives Verified 10/02/24 23:00 venlafaxine Allergy Unknown Verified 10/02/24 23:00 meloxicam AdvReac Severe ADR-Vomitin Verified 10/02/24 23:00 g ciprofloxacin (From Cipro) AdvReac Mild stomach Verified 10/02/24 23:00 upset hydromorphone (From Dilaudid) AdvReac Unknown PT STATES Verified 10/02/24 23:00 IT MAKES ME CRAZY PFSH ED PFSH: Medical History Low serum cortisol level Bacteremia due to Klebsiella pneumoniae Chronic use of steroids C. 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 Left axis deviation. Normal MI and QRS duration. Dyslipidemia (high LDL; low HDL) Benign essential hypertension with target blood pressure below 140/90 Atherosclerotic heart disease of kaw coronary artery without angina pectoris Status post left heart catheterization Recurrent UTI Gross hematuria Bipolar II disorder Surgical History Hx of bilateral hip replacements Hx of bladder repair surgery History of colonoscopy (~2018) History of coronary artery stent placement History of right knee surgery S/P appendectomy S/P hysterectomy S/P hernia repair S/P hip replacement Family History Family/Other Diabetes Other Cancer Social History Smoking and tobacco/nicotine status: never used tobacco/nicotine Alcohol intake: never Substance/Drug Use: never Household members: spouse Marital status: Current occupational status: retired Physical Exam Const: COMMON NORMALS: no acute distress, patient oriented x3 and alert HENMT: COMMON NORMALS: normocephalic and atraumatic HEAD & SCALP: normocephalic and atraumatic Eye: COMMON NORMALS: Equal, round and reactive pupils present, EOMs intact bilaterally and no scleral icterus PUPIL: Yes Equal, round and reactive pupils present Chest: OTHER: Pain is not reproducible with palpation of the anterior chest wall. Resp: COMMON NORMALS: normal respiratory effort and No retractions Cardio: COMMON NORMALS: regular rate, regular rhythm and No murmurs present (Cardio) RATE: regular rate RHYTHM: regular rhythm GI: COMMON NORMALS: Normal to inspection, nondistended, normoactive bowel sounds present, Soft to palpation and non-tender PALPATION: Yes Soft to palpation Neuro: COMMON NORMALS: patient oriented x3 SENSORIUM/ORIENTATION: Yes alert Skin: OTHER: Mild erythema of the bilateral lower legs. Right leg circumference is somewhat greater than left. Course Vital Signs: Vital signs: Vital Signs Temperature 97.1 F L 10/02/24 22:53 Pulse Rate 70 10/03/24 03:28 Respiratory Rate 18 10/03/24 03:28 Blood Pressure 116/40 10/03/24 03:28 Pulse Oximetry 97 10/03/24 03:28 Oxygen Delivery Me thod Room Air 10/03/24 01:02 MDM - Chest Pain Medical Decision Making In summary, patient is a generally well-appearing 79-year-old female seen for chest pain. EKG, chest x-ray, labs are all reassuring with no evidence of ACS, PE, pneumonia, or other abnormality requiring further workup. She will be discharged in stable and improved condition follow-up primary care as needed Lab Data 10/02/24 23:24 10/02/24 23:24 Radiology Impressions Chest X-Ray 10/02/24 23:06 IMPRESSION: 1. Left mid to lower lung field atelectasis versus infiltrate. 2. Cardiomegaly. 3. Right sided PICC line with tip approaching the atrial caval junction. Laboratory Results WBC 6.73 10^3/uL (3.29-11.43) 10/02/24 23:24 RBC 3.46 10^6/uL (3.85-5.65) L 10/02/24 23:24 Hgb 10.00 g/dL (11.27-16.99) L 10/02/24 23:24 Hct 31.4 % (36-47) L 10/02/24 23:24 MCV 90.8 fl (85-98) 10/02/24 23:24 MCH 28.9 pg (27-33) 10/02/24 23: MCHC 31.8 g/dL (30-55) 10/02/24 23:24 RDW 14.0 % (12.1-15.1) 10/02/24 23:24 Plt Count 234 10^3/cmm (157-399) 10/02/24 23:24 MPV 10.0 fL (7.4-10.4) 10/02/24 23:24 Neut % (Auto) 57.4 % 10/02/24 23:24 Lymph % (Auto) 29.0 % 10/02/24 23:24 [place] % (Auto) 9.7 % 10/02/24 23:24 Eos % (Auto) 3.0 % 10/02/24:24 Baso % (Auto) 0.3 % 10/02/24: Neut # (Auto) 3.87 10^3/uL (1.8-7.7) 10/02/24 23:24 Lymph # (Auto) 2.0 10^3/uL (0.8-4.8) 10/02/24 23:24 [place] # (Auto) 0.7 10^3/uL (0.2-0.9) 10/02/24 23:24 Eos # (Auto) 0.2 10^3/uL (0.0-0.8) 10/02/24 23:24 Baso # (Auto) 0.0 10^3/uL (0.0-0.1) 10/02/24 23:24 Nucleated RBC % (auto) 0 % 10/02/24 23:24 Nucleated RBCs # 0.0 /100WBC 10/02/24 23:24 Sodium 133 mmol/L (136-145) L 10/02/24 23:24 Potassium 4.6 mmol/L (3.5-5.1) 10/02/24 23:24 Chloride 94 mmol/L (98-107) L 10/02/24 23:24 Carbon Dioxide 25 mmol/L (22-29) 10/02/24 23:24 Anion Gap 18.6 (5-19) 10/02/24 23:24 BUN 27 mg/dL (8-23) H 10/02/24 23:24 Creatinine 0.8 mg/dL (0.5-0.9) 10/02/24 23:24 GFR Calculation Not Reportable 10/02/24 23:24 Glucose 237 mg/dL (65-115) H 10/02/24 23:24 Calculated Osmolality 289 mOsm/kg (285-295) 10/02/24 23:24 Calcium 10.0 mg/dL (8.5-10.5) 10/02/24 23:24 Total Bilirubin 0.2 mg/dL (0.15-1.2) 10/02/24 23:24 AST 14 U/L (0-32) 10/02/24 23:24 ALT 14 U/L (0-33) 10/02/24 23:24 Alkaline Phosphatase 223 U/L (35-105) H 10/02/24 23:24 Troponin T Baseline 48 ng/L (0-10) H 10/02/24 23:24 Troponin T 120 Minute 42.43 ng/L (0-10) H 10/03/24 01:27 Delta Troponin T -5.57 ABS# (0-10) L 10/03/24 01:27 Total Protein 7.1 g/dL (6.6-8.7) 10/02/24 23:24 Albumin 3.2 g/dL (3.5-5.2) L 10/02/24 23:24 Globulin 3.9 g/dL (1.3-4.6) 10/02/24 23:24 All radiology interpretation(s) finalized by discharge EKG Data EKG 1: Interpretation: Time?2300?normal sinus rhythm, rate of 70, no ST segment elevation or depression, no T wave inversions, intervals within normal limits. QTc = 389 Discharge Plan Discharge Patient Disposition: Home Clinical Impression: Chest pain Condition: Stable Prescriptions: No Action cholecalciferol (vitamin D3) 1,000 unit capsule 1,000 unit PO QPM cranberry 500 mg capsule 500 mg PO QPM ferrous sulfate 325 mg (65 mg iron) tablet 325 mg PO DAILY@12 magnesium oxide 400 mg (241.3 mg magnesium) tablet 500 mg PO DAILY@12 (DME) hinged knee brace left See Rx Instructions .Route .MEDSUPPLY Qty: 1 0RF Rx Instructions: As directed diclofenac sodium 1 % gel 4 g topical QID Qty: 100 3RF Rx Instructions: apply to single knee, ankle, foot; for foot includes sole/toes/top of foot potassium chloride 8 mEq capsule, extended release 24 meq PO QAM (DME) FreeStyle Tor 2 Sensor Kit See Rx Instructions .MEDSUPPLY Qty: 3 3RF Rx Instructions: As directed (DME) FreeStyle Tor 2 Lagrange Misc See Rx Instructions .Route Qty: 1 0RF Rx Instructions: As directed esomeprazole magnesium 40 mg capsule,delayed release(DR/EC) 40 mg PO QAM melatonin 3 mg capsule 3 mg PO BEDTIME (DME) blood sugar diagnostic Strip See Rx Instructions .Route Qty: 400 3RF Rx Instructions: Check blood sugar 4 times a day. (DME) lancets [Comfort EZ Lancets] 21 gauge misc See Rx Instructions .Route Qty: 400 3RF Rx Instructions: As directed (DME) Easymax 15 test strips Strip See Rx Instructions .Route Qty: 400 3RF Rx Instructions: Check BS 4 times a day. nitroglycerin 0.4 mg tablet, sublingual 0.4 mg sublingual Q5M PRN (Reason: chest pain) 30 Days Qty: 30 3RF Rx Instructions: until response; do not exceed 3 doses per episode isosorbide mononitrate 120 mg tablet extended release 24 hr 120 mg PO DAILY@12 Qty: 90 3RF (DME) dhaval LT knee Brace See Rx Instructions .Route .MEDSUPPLY Qty: 1 0RF Rx Instructions: As directed (DME) pen needle, diabetic [BD Ultra-Fine Mini Pen Needle] 31 gauge x 3/16 needle See Rx Instructions .ROUTE .COMPLEX Qty: 400 0RF Dose Instruction: USE WITH INSULIN FOUR TIMES DAILY Rx Instructions: USE WITH INSULIN FOUR TIMES DAILY hydrocodone-acetaminophen 10-325 mg tablet 1 tab PO Q6H MDD 6 PRN (Reason: pain) 7 Days Qty: 28 0RF hydrocortisone 10 mg tablet See Rx Instructions .ROUTE .COMPLEX Qty: 120 0RF Dose Instruction: TAKE 1 TABLET BY MOUTH FOUR TIMES DAILY Rx Instructions: TAKE 1 TABLET BY MOUTH FOUR TIMES DAILY aripiprazole 2 mg tablet See Rx Instructions .ROUTE .COMPLEX Qty: 30 2RF Dose Instruction: TAKE 1 TABLET BY MOUTH AT BEDTIME Rx Instructions: TAKE 1 TABLET BY MOUTH AT BEDTIME insulin degludec [Tresiba FlexTouch U-200] 200 unit/mL (3 mL) insulin pen See Rx Instructions .ROUTE .COMPLEX Qty: 9 0RF Dose Instruction: ADMINISTER 64 UNITS UNDER THE SKIN DAILY Rx Instructions: ADMINISTER 64 UNITS UNDER THE SKIN DAILY vitamin E 1,000 unit Capsule 1,000 unit PO QAM ascorbic acid (vitamin C) [Vitamin C] 500 mg Tablet,Chewable 500 mg PO QNOON lactulose 10 gram/15 mL solution 15 ml PO DAILY PRN (Reason: Constipation) sodium chloride 1,000 mg tablet,soluble 1,000 mg PO DAILY Qty: 30 0RF torsemide 20 mg tablet 20 mg PO BID amlodipine 10 mg tablet 10 mg PO DAILY valsartan 320 mg tablet 320 mg PO QPM insulin lispro [Humalog KwikPen Insulin] 100 unit/mL insulin pen 28 unit SUBCUT TID Rx Instructions: after meals, based on sliding scale provided Discharge Orders: Discharge ED (Routine); Ordered 10/03/24 Ordered By: Ezekiel Douglass Referrals: Arabella Orta MD [Primary Care Provider, Family Practice] Discharge Diet: Usual diet Discharge Activity: Resume usual activity Patient Instructions: Chest Pain (ED) Print Language: Lebanese Coding Level of Care 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
[2024-10-02 23:11] VITALS: BP 104/40; PULSE 67; RESP 16; O2SAT 94
[2024-10-02 23:26] VITALS: BP 96/34; PULSE 65; RESP 18; O2SAT 95
[2024-10-02 23:34] LABS: Basophils % 0.3 %; Eosinophils # 0.2 10^3/uL (0.0-0.8); Hematocrit 31.4 % (36-47); Mean Corpuscular HGB Conc 31.8 g/dL (30-55); Mean Corpuscular Hemoglobin 28.9 pg (27-33); Mean Corpuscular Volume 90.8 fl (85-98); Monocytes # 0.7 10^3/uL (0.2-0.9); Monocytes % 9.7 %; Neutrophils # 3.87 10^3/uL (1.8-7.7); Neutrophils % 57.4 %; Nucleated Red Blood Cells % 0 %; Platelet Count 234 10^3/cmm (157-399); Red Blood Count 3.46 10^6/uL (3.85-5.65); White Blood Count 6.73 10^3/uL (3.29-11.43)
[2024-10-02 23:49] LABS: Troponin(5th) Baseline 48 ng/L (0-10)
[2024-10-02] MEDS: sodium chloride 0.9% 500 ML 999 ML IV (23:53)
[2024-10-02 23:55] LABS: Alanine Aminotransferase 14 U/L (0-33); Albumin Level 3.2 g/dL (3.5-5.2); Alkaline Phosphatase 223 U/L (35-105); Aspartate Amino Transferase 14 U/L (0-32); Blood Urea Nitrogen 27 mg/dL (8-23); Carbon Dioxide 25 mmol/L (22-29); Globulin 3.9 g/dL (1.3-4.6); Glucose 237 mg/dL (65-115); Total Bilirubin 0.2 mg/dL (0.15-1.2); Total Protein 7.1 g/dL (6.6-8.7)
[2024-10-03 00:19] VITALS: BP 96/50; PULSE 66; RESP 23; O2SAT 97
[2024-10-03 00:21] LABS: Anion Gap 18.6 (5-19); Chloride 94 mmol/L (98-107); Osmolality Calculated 289 mOsm/kg (285-295); Potassium 4.6 mmol/L (3.5-5.1); Sodium 133 mmol/L (136-145)
[2024-10-03 00:41] VITALS: BP 138/44; PULSE 68; RESP 18; O2SAT 96
[2024-10-03 01:02] VITALS: BP 111/55; PULSE 64; RESP 12; O2SAT 97
[2024-10-03 01:41] VITALS: BP 112/43; PULSE 67; RESP 20; O2SAT 96
[2024-10-03 01:59] LABS: Troponin 5 2HR 42.43 ng/L (0-10)
[2024-10-03 02:05] LABS: Troponin 5 2HR Delta -5.57 ABS# (0-10)
[2024-10-03 02:41] VITALS: BP 120/38; PULSE 67; RESP 12; O2SAT 94
[2024-10-03 03:28] VITALS: BP 116/40; PULSE 70; RESP 18; O2SAT 97
--- NOTE | 2024-10-03 03:30 | PC.NURSE ---
PROVIDER MADE AWARE OF BP, GAVE VERBAL TO D/C.
== END 2024-10-03 03:21 | disposition home or self-care (01) ==
PROVIDERS: Emergency Provider Student in an Organized Health Care Education/Training Program; PCP Family Medicine
DX: R07.9 Chest pain, unspecified (principal); Z79.4 Long term (current) use of insulin; E78.5 Hyperlipidemia, unspecified; I25.10 Atherosclerotic heart disease of native coronary artery without angina pectoris; I10 Essential (primary) hypertension
CPT/HCPCS: 36415; 71045; 80053; 84484; 85025; 93005; 99285; J7040

== ENCOUNTER → 2024-10-03 14:25 | Outpatient (BNVA) | payer MEDICARE, OTHER, SELFPAY | PROVIDERS: PCP Family Medicine; Visit Provider Orthopaedic Surgery | DX: Z98.890 Other specified postprocedural states (principal); S82.032D Displaced transverse fracture of left patella, subsequent encounter for closed fracture with routine healing; X58.XXXD Exposure to other specified factors, subsequent encounter | CPT/HCPCS: 73562; 99024 ==

== ENCOUNTER 2024-10-13 13:00 | Outpatient (CLI) | payer MEDICARE, OTHER, SELFPAY ==
[2024-10-13 14:07] LABS: Chol HDL Ratio 5.07 mg/dL (0.0-4.40); Cholesterol 218 mg/dL (0-200); HDL Cholesterol 43 mg/dL (60-100); LDL Cholesterol Calculated 108 mg/dL (50-129); LDL HDL Ratio 2.51 RATIO (0.00-3.22); Triglycerides 335 mg/dL (0-150)
[2024-10-13 14:08] LABS: Creatinine Urine, Random 45 mg/dL (28-217); Microalbumin Random Urine 2 ug/dL (0-20)
[2024-10-13 14:09] LABS: Microalbum Creatinine Ratio Ur 44 mg/dL (0-20)
== END 2024-10-13 13:01 | disposition home or self-care (01) ==
LOC: LAB 13:01
PROVIDERS: Internal Medicine; PCP Family Medicine; Visit Provider Student in an Organized Health Care Education/Training Program
DX: E11.9 Type 2 diabetes mellitus without complications (principal); E78.5 Hyperlipidemia, unspecified; R78.81 Bacteremia; B96.1 Klebsiella pneumoniae [K. pneumoniae] as the cause of diseases classified elsewhere; T81.49XA Infection following a procedure, other surgical site, initial encounter; I25.10 Atherosclerotic heart disease of native coronary artery without angina pectoris; X58.XXXA Exposure to other specified factors, initial encounter
CPT/HCPCS: 36415; 80061; 82044; 82248; 82565; 87086

== ENCOUNTER 2024-10-27 14:54 | Outpatient (CLI) | payer MEDICARE, OTHER, SELFPAY ==
[2024-10-27 15:09] LABS: Bilirubin Urine Negative (Negative); Blood Urine 1+ (Negative); Glucose Urine UA 1+ (Normal); Ketones Urine Negative (Negative); Leukocyte Esterase Urine 3+ (Negative); Nitrate Urine Negative (Negative); Protein Urine 1+ (Negative); Specific Gravity, Urine 1.017 (1.005-1.030); Urine Appearance Turbid (CLEAR); Urine Color Yellow (Yellow); Urobilinogen Urine 0.2 mg/dL (Negative); pH Urine 6.5 (5-7)
[2024-10-27 15:13] LABS: Add Urine Microscopic? YES; Bacteria Urine Trace /hpf; Hyaline Casts Urine 0-4 /lpf; Squamous Epithelial Cell Urine 0-5 /hpf (0-5); WBC Urine >100 /hpf (0-5)
[2024-10-27 16:01] LABS: Add Urine Culture? Yes
== END 2024-10-27 14:55 | disposition home or self-care (01) ==
LOC: LAB 14:56
PROVIDERS: PCP Family Medicine; Visit Provider Student in an Organized Health Care Education/Training Program
DX: N39.0 Urinary tract infection, site not specified (principal)
CPT/HCPCS: 81001; 87086

== ENCOUNTER → 2024-11-07 08:45 | Outpatient (BNVA) | payer MEDICARE, OTHER, SELFPAY | PROVIDERS: PCP Family Medicine; Visit Provider Orthopaedic Surgery | DX: Z98.890 Other specified postprocedural states (principal) | CPT/HCPCS: 73562; 99024 ==

== ENCOUNTER → 2024-11-13 10:29 | Outpatient (BNVA) | payer MEDICARE, OTHER, SELFPAY | PROVIDERS: PCP Family Medicine; Visit Provider Internal Medicine | DX: E11.9 Type 2 diabetes mellitus without complications (principal); E16.2 Hypoglycemia, unspecified; K11.7 Disturbances of salivary secretion; E86.0 Dehydration; E78.5 Hyperlipidemia, unspecified; I10 Essential (primary) hypertension; E27.40 Unspecified adrenocortical insufficiency | CPT/HCPCS: 99214 ==

== ENCOUNTER 2024-12-01 09:08 | Emergency (ER) | payer MEDICARE, OTHER, SELFPAY ==
[2024-12-01] VITALS (8 sets, daily range): BP systolic 158–219; BP diastolic 56–84; PULSE 74–86; RESP 17–22; TEMP 36.7; O2SAT 92–97; BMI 48.6
--- NOTE | 2024-12-01 09:18 | XR_ITS ---
WS: [id number] Exam: XR chest 1V portable [id number] Date/Time of Exam: 12/01/2024 9:18 AM Reason For Exam: chest pain Comparison 10/02/2024. Lungs are fully expanded and clear. Mild plaque atelectasis in the LEFT base. No pleural effusions. Normal cardiomediastinal silhouette. Bony structures are intact. XR/XR chest 1V portable [id number] IMPRESSION: 1. No acute cardiopulmonary finding.
--- NOTE | 2024-12-01 09:18 | ECG_ITS ---
[facility] Date: 2024-12-01 Pat Name: Brandi Berg Department: Room: Gender: Female Database Consultant: : 1945 Requested By: Brittani Chawla Order Number: [id number] Gamal MD: Gilma Cai M.D. Measurements Intervals [place] Rate: 83 P: 38 MS: 148 QRS: -27 QRSD: 103 T: 72 QT: 344 QTc: 406 Interpretive Statements SINUS RHYTHM BORDERLINE LEFT AXIS DEVIATION [QRS AXIS < -20] NONSPECIFIC T-WAVE ABNORMALITY Compared to ECG 10/02/2024 23:00:03 T-wave abnormality now present Electronically Signed On 12-01-2024 15:08:55 CDT by Gilma Cai M.D. [email or web address]
--- NOTE | 2024-12-01 09:26 | W.ED.CHESTPA ---
HPI - Chest Pain General: Chief Complaint: Chest Pain Stated Complaint: chest pain Time Seen by Provider: 12/01/24 09:18 Source: patient and EMS Mode of arrival: EMS Limitations: no limitations History of Present Illness: Patient is an 79-year-old female presents to ED today via EMS for evaluation of chest pain. Patient states she has a longstanding history of chest pains. She does report 3 previous cardiac stents that were placed several years ago. Last stress test was 06/2023. This was essentially normal but did show a small area of prior infarct. Looking at previous documentation, it looks like she has missed her last 2 cardiology appointments. Patient states this is because she fractured her left patella and has put a dent in things . She did not require surgery and has been following up with Dr. Joya. She is ambulatory with the help of a walker. EMS reportedly administered nitro and route and upon arrival patient tells she is not really having any discomfort. She is not having any dyspnea. Denies leg swelling/weight gain. MD complaint: chest pain Pertinent past history: coronary artery disease Onset (ago): hour(s) Timing of current episode: other (improving) Prior episodes: Yes Onset: during rest Pain location: substernal Pain radiation: none Severity: moderate Relieving factors: nitroglycerin Exacerbating factors: nothing Associated symptoms: Reports no associated symptoms; Deny abdominal pain, dyspnea, fever(s), nausea, palpitations, syncope or vomiting Treatment prior to arrival: none Risk Factors: Coronary artery disease risk factors: hypertension Thoracic aortic dissection risk factors: none Related Data Home Medications ?Medication ?Instructions ?Recorded ?Confirmed cholecalciferol (vitamin D3) 25 1,000 unit PO QPM 06/01/19 11/13/24 mcg (1,000 unit) capsule cranberry 500 mg capsule 500 mg PO QPM 06/01/19 11/13/24 magnesium oxide 400 mg (241.3 mg 500 mg PO DAILY@02/14/21 11/13/24 magnesium) tablet ascorbic acid (vitamin C) 500 mg 500 mg PO QNOON 11/14/21 11/13/24 chewable tablet (Vitamin C) vitamin E 670 mg (1,000 unit) 1,000 unit PO QAM 11/14/21 11/13/24 capsule esomeprazole magnesium 40 mg 40 mg PO QAM 05/19/22 11/13/24 capsule,delayed release potassium chloride 8 mEq 24 meq PO QAM 05/19/22 11/13/24 capsule,extended release lactulose 10 gram/15 mL oral 15 ml PO DAILY PRN Constipation 06/23/23 11/13/24 solution melatonin 3 mg capsule 3 mg PO BEDTIME 11/18/23 11/13/24 amlodipine 10 mg tablet 10 mg PO DAILY 06/09/24 11/13/24 insulin lispro 100 unit/mL 28 unit SUBCUT TID 06/09/24 11/13/24 subcutaneous pen (Humalog KwikPen (U-100) Insulin) torsemide 20 mg tablet 20 mg PO BID 06/09/24 11/13/24 valsartan 320 mg tablet 320 mg PO QPM 06/09/24 11/13/24 Previous Rx's ?Medication ?Instructions ?Recorded blood sugar diagnostic #400 ea 09/02/21 lancets 21 gauge (Comfort EZ #400 ea 09/02/21 Lancets) blood sugar diagnostic (Easymax 15 #400 ea 09/11/21 test strips) flash glucose scanning reader #1 ea 02/17/22 (FreeStyle Otr 2 [place]) flash glucose sensor (FreeStyle #3 ea 02/17/22 Tor 2 Sensor kit) nitroglycerin 0.4 mg sublingual 0.4 mg sublingual Q5M PRN chest 08/04/23 tablet pain 30 days #30 tabs dhaval LT knee Brace #1 ea 06/30/24 aripiprazole 2 mg tablet See Rx Instructions .Route 08/07/24 .COMPLEX #30 tabs diclofenac sodium 1 % topical gel 4 g topical QID #100 grams 08/09/24 hinged knee brace left #1 ea 08/09/24 insulin degludec 200 unit/mL (3 See Rx Instructions .Route 08/14/24 mL) subcutaneous pen (Tresiba .COMPLEX #9 mL FlexTouch U-200 insulin) sodium chloride 1,000 mg soluble 1,000 mg PO DAILY #30 tabs 08/29/24 tablet isosorbide mononitrate 120 mg 120 mg PO DAILY@12 #90 tabs 10/13/24 tablet,extended release 24 hr mupirocin 2 % topical ointment 1 applic topical BID #15 grams 10/13/24 (Centany) hydrocortisone 10 mg tablet See Rx Instructions .Route 10/18/24 .COMPLEX #120 tabs oxycodone 5 mg tablet 5 mg PO Q6H pain 7 days #28 tabs 11/07/24 pen needle, diabetic 31 gauge x #400 ea 11/27/24 3/16 Allergies Allergy/AdvReac Type Severity Reaction Status Date / Time morphine Allergy Severe RESPIRATORY Verified 12/01/24 09:28 DISTRESS doxycycline Allergy Mild THROAT Verified 12/01/24 09:28 SWELLING duloxetine (From Cymbalta) Allergy Mild SWELLING, Verified 12/01/24 09:28 VOMITING metformin Allergy Mild THROAT Verified 12/01/24 09:28 SWELLING oxybutynin (From Oxytrol) Allergy Mild ALGY-Rash Verified 12/01/24 09:28 Penicillins Allergy Mild ALGY-Rash Verified 12/01/24 09:28 Sulfa (Sulfonamide Allergy Mild STOMACH Verified 12/01/24 09:28 Antibiotics) CRAMPS alprazolam (From Xanax) Allergy Unknown Unknown Verified 12/01/24 09:28 amitriptyline Allergy Unknown Unknown Verified 12/01/24 09:28 Barbiturates Allergy Unknown stomach Verified 12/01/24 09:28 cramps cefuroxime (From Ceftin) Allergy Unknown stomach Verified 12/01/24 09:28 cramps insulin detemir (From Allergy Unknown Unknown Verified 12/01/24 09:28 Levemir U-100 Insulin) levofloxacin (From Levaquin) Allergy Unknown Unknown Verified 12/01/24 09:28 liraglutide (From Victoza) Allergy Unknown Unknown Verified 12/01/24 09:28 metoclopramide (From Reglan) Allergy Unknown Unknown Verified 12/01/24 09:28 nitrofurantoin (From Allergy Unknown Unknown Verified 12/01/24 09:28 Macrobid) pregabalin (From Lyrica) Allergy Unknown Unknown Verified 12/01/24 09:28 divalproex sodium (From Allergy ALGY-Hives Verified 12/01/24 09:28 Depakote) gabapentin Allergy bone, Verified 12/01/24 09:28 muscle pain and mood swings hydrocodone Allergy ALGY-Hives Verified 12/01/24 09:28 venlafaxine Allergy Unknown Verified 12/01/24 09:28 meloxicam AdvReac Severe ADR-Vomitin Verified 12/01/24 09:28 g ciprofloxacin (From Cipro) AdvReac Mild stomach Verified 12/01/24 09:28 upset hydromorphone (From Dilaudid) AdvReac Unknown PT STATES Verified 12/01/24 09:28 IT MAKES ME CRAZY Review of Systems Const: Denies: fever(s), chills, body aches, fatigue or malaise Card: Reports: chest pain; Denies: palpitations, irregular heart rhythm, edema, swelling of feet/ankles, lightheadedness, syncope, pre-syncope, dyspnea on exertion, orthopnea or leg pain with exertion Resp: Denies: dyspnea, pain on inspiration or chest congestion GI: Denies: abdominal pain, nausea or vomiting : Denies: flank pain Musc: Denies: back pain Neuro: Denies: headache(s) or dizziness PFSH ED PFSH: Medical History Low serum cortisol level Bacteremia due to Klebsiella pneumoniae Chronic use of steroids C. 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 Left axis deviation. Normal FL and QRS duration. Dyslipidemia (high LDL; low HDL) Benign essential hypertension with target blood pressure below 140/90 Atherosclerotic heart disease of [place] coronary artery without angina pectoris Status post left heart catheterization Recurrent UTI Gross hematuria Bipolar II disorder Surgical History Hx of bilateral hip replacements Hx of bladder repair surgery History of colonoscopy (~2018) History of coronary artery stent placement History of right knee surgery S/P appendectomy S/P hysterectomy S/P hernia repair S/P hip replacement Family History Family/Other Diabetes Other Cancer Social History Smoking and tobacco/nicotine status: never used tobacco/nicotine Alcohol intake: never Substance/Drug Use: never Household members: spouse Marital status: Current occupational status: retired Physical Exam Const: COMMON NORMALS: no acute distress, patient oriented x3, no limitations, alert and well nourished GENERAL APPEARANCE: cooperative NUTRITIONAL APPEARANCE: obese (BMI 48.7) ORIENTATION/CONSCIOUSNESS: Yes awake, Yes oriented to person, Yes oriented to place and Yes oriented to time Neck/C-Spine: COMMON NORMALS: no JVD Chest: COMMONS NORMALS: normal inspection of the chest and normal palpation of entire chest wall Resp: COMMON NORMALS: normal respiratory effort and clear to auscultation bilaterally AUSCULTATION: clear to auscultation bilaterally Cardio: COMMON NORMALS: no JVD, regular rate and regular rhythm RATE: regular rate RHYTHM: regular rhythm GI: COMMON NORMALS: Normal to inspection, nondistended, normoactive bowel sounds present, Soft to palpation, non-tender, No hepatosplenomegaly present and no masses PALPATION: Yes Soft to palpation and Yes No hepatosplenomegaly present : COMMON NORMALS: Yes no CVA tenderness BLADDER/KIDNEY EXAM: Yes no CVA tenderness Back/Pelvis: COMMON NORMALS: no CVA tenderness Extremity: NARRATIVE EXTREMITY EXAM: bilateral LE dependent rubor skin changes; mild abrasion overlying anterior L patella GENERAL: Yes normal exam except as noted Neuro: COMMON NORMALS: patient oriented x3, moves all extremities, no focal motor deficits and no sensory deficits noted SENSORIUM/ORIENTATION: Yes alert, Yes oriented to person, Yes oriented to place and Yes oriented to time Course Vital Signs: Vital signs: Vital Signs Temperature 98.0 F 12/01/24 09:30 Pulse Rate 84 12/01/24 09:30 Respiratory Rate 20 H 12/01/24 09:30 Blood Pressure 158/64 12/01/24 09:30 Pulse Oximetry 96 12/01/24 09:30 MDM - Chest Pain Medical Decision Making Patient has essentially been pain-free throughout her emergency department stay. Vital signs are stable. Blood work including cardiac workup initiated. Baseline troponin of 22 which seems to be her baseline. Nonsignificant delta. Baseline repeat EKGs are nonischemic. Her CXR is unremarkable. Patient will be allowed discharge. 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 Case management referral placed for this. Return to ED precautions discussed. Medical Records I reviewed the patient's medical records. Lab Data I reviewed the patient's lab results. 12/01/24 09:29 12/01/24 09:29 Radiology Impressions Chest X-Ray 12/01/24 09:18 IMPRESSION: 1. No acute cardiopulmonary finding. Laboratory Results WBC 6.23 10^3/uL (3.29-11.43) 12/01/24 09: RBC 4.48 10^6/uL (3.85-5.65) 12/01/24 09: Hgb 12.80 g/dL (11.27-16.99) 12/01/24 09: Hct 40.5 % (36-47) 12/01/24 09: MCV 90.4 fl (85-98) 12/01/24 09: MCH 28.6 pg (27-33) 12/01/24 09: MCHC 31.6 g/dL (30-55) 12/01/24 09: RDW 14.7 % (12.1-15.1) 12/01/24 09: Plt Count 211 10^3/cmm (157-399) 12/01/24 09: MPV 10.1 fL (7.4-10.4) 12/01/24 09: Neut % (Auto) 46.0 % 12/01/24 09: Lymph % (Auto) 37.4 % 12/01/24 09: [place] % (Auto) 11.6 % 12/01/24 09: Eos % (Auto) 3.9 % 12/01/24 09: Baso % (Auto) 0.8 % 12/01/24: Neut # (Auto) 2.87 10^3/uL (1.8-7.7) 12/01/24 09: Lymph # (Auto) 2.3 10^3/uL (0.8-4.8) 12/01/24 09: [place] # (Auto) 0.7 10^3/uL (0.2-0.9) 12/01/24 09: Eos # (Auto) 0.2 10^3/uL (0.0-0.8) 12/01/24 09: Baso # (Auto) 0.1 10^3/uL (0.0-0.1) 12/01/24: Nucleated RBC % (auto) 0 % 12/01/24 09:29 Nucleated RBCs # 0.0 /100WBC 12/01/24 09:29 Sodium 138 mmol/L (136-145) 12/01/24 09:29 Potassium 4.7 mmol/L (3.5-5.1) 12/01/24 09:29 Chloride 100 mmol/L (98-107) 12/01/24 09:29 Carbon Dioxide 24 mmol/L (22-29) 12/01/24 09:29 Anion Gap 18.7 (5-19) 12/01/24 09:29 BUN 16 mg/dL (8-23) 12/01/24 09:29 Creatinine 0.5 mg/dL (0.5-0.9) 12/01/24 09:29 GFR Calculation Not Reportable 12/01/24 09:29 Glucose 290 mg/dL (65-115) H 12/01/24 09:29 Calculated Osmolality 298 mOsm/kg (285-295) H 12/01/24 09:29 Calcium 10.0 mg/dL (8.5-10.5) 12/01/24 09:29 Total Bilirubin 0.5 mg/dL (0.15-1.2) 12/01/24 09:29 AST 18 U/L (0-32) 12/01/24 09:29 ALT 20 U/L (0-33) 12/01/24 09:29 Alkaline Phosphatase 201 U/L (35-105) H 12/01/24 09:29 Troponin T Baseline 22 ng/L (0-10) H 12/01/24 09:29 Troponin T 120 Minute 22.66 ng/L (0-10) H 12/01/24 11:30 Delta Troponin T 0.66 ABS# (0-10) 12/01/24 11:30 Total Protein 6.6 g/dL (6.6-8.7) 12/01/24 09:29 Albumin 3.7 g/dL (3.5-5.2) 12/01/24 09:29 Globulin 2.9 g/dL (1.3-4.6) 12/01/24 09:29 All radiology interpretation(s) finalized by discharge Discharge Plan Discharge Patient Disposition: Home Clinical Impression: Chest pain Qualifiers: Chest pain type: unspecified Qualified Code(s): R07.9 - Chest pain, unspecified Condition: Stable Prescriptions: No Action cholecalciferol (vitamin D3) 1,000 unit capsule 1,000 unit PO QPM cranberry 500 mg capsule 500 mg PO QPM magnesium oxide 400 mg (241.3 mg magnesium) tablet 500 mg PO DAILY@12 (DME) hinged knee brace left See Rx Instructions .Route .MEDSUPPLY Qty: 1 0RF Rx Instructions: As directed diclofenac sodium 1 % gel 4 g topical QID Qty: 100 3RF Rx Instructions: apply to single knee, ankle, foot; for foot includes sole/toes/top of foot oxycodone 5 mg tablet 5 mg PO Q6H 7 Days Qty: 28 0RF mupirocin [Centany] 2 % ointment 1 applic topical BID Qty: 15 1RF potassium chloride 8 mEq capsule, extended release 24 meq PO QAM (DME) FreeStyle Tor 2 Sensor Kit See Rx Instructions .MEDSUPPLY Qty: 3 3RF Rx Instructions: As directed (DME) FreeStyle Tor 2 [place] Misc See Rx Instructions .Route Qty: 1 0RF Rx Instructions: As directed esomeprazole magnesium 40 mg capsule,delayed release(DR/EC) 40 mg PO QAM melatonin 3 mg capsule 3 mg PO BEDTIME (DME) blood sugar diagnostic Strip See Rx Instructions .Route Qty: 400 3RF Rx Instructions: Check blood sugar 4 times a day. (DME) lancets [Comfort EZ Lancets] 21 gauge misc See Rx Instructions .Route Qty: 400 3RF Rx Instructions: As directed (DME) Easymax 15 test strips Strip See Rx Instructions .Route Qty: 400 3RF Rx Instructions: Check BS 4 times a day. nitroglycerin 0.4 mg tablet, sublingual 0.4 mg sublingual Q5M PRN (Reason: chest pain) 30 Days Qty: 30 3RF Rx Instructions: until response; do not exceed 3 doses per episode (DME) dhaval LT knee Brace See Rx Instructions .Route .MEDSUPPLY Qty: 1 0RF Rx Instructions: As directed aripiprazole 2 mg tablet See Rx Instructions .ROUTE .COMPLEX Qty: 30 2RF Dose Instruction: TAKE 1 TABLET BY MOUTH AT BEDTIME Rx Instructions: TAKE 1 TABLET BY MOUTH AT BEDTIME insulin degludec [Tresiba FlexTouch U-200] 200 unit/mL (3 mL) insulin pen See Rx Instructions .ROUTE .COMPLEX Qty: 9 0RF Dose Instruction: ADMINISTER 64 UNITS UNDER THE SKIN DAILY Rx Instructions: ADMINISTER 64 UNITS UNDER THE SKIN DAILY isosorbide mononitrate 120 mg tablet extended release 24 hr 120 mg PO DAILY@12 Qty: 90 3RF Rx Instructions: NEEDS APPT FOR FURTHER REFILLS hydrocortisone 10 mg tablet See Rx Instructions .ROUTE .COMPLEX Qty: 120 0RF Dose Instruction: TAKE 1 TABLET BY MOUTH FOUR TIMES DAILY Rx Instructions: TAKE 1 TABLET BY MOUTH FOUR TIMES DAILY (DME) pen needle, diabetic 31 gauge x 3/16 needle See Rx Instructions .ROUTE .COMPLEX Qty: 400 1RF Dose Instruction: USE WITH INSULIN FOUR TIMES DAILY Rx Instructions: USE WITH INSULIN FOUR TIMES DAILY vitamin E 1,000 unit Capsule 1,000 unit PO QAM ascorbic acid (vitamin C) [Vitamin C] 500 mg Tablet,Chewable 500 mg PO QNOON lactulose 10 gram/15 mL solution 15 ml PO DAILY PRN (Reason: Constipation) sodium chloride 1,000 mg tablet,soluble 1,000 mg PO DAILY Qty: 30 0RF torsemide 20 mg tablet 20 mg PO BID amlodipine 10 mg tablet 10 mg PO DAILY valsartan 320 mg tablet 320 mg PO QPM insulin lispro [Humalog KwikPen Insulin] 100 unit/mL insulin pen 28 unit SUBCUT TID Rx Instructions: after meals, based on sliding scale provided Discharge Orders: Discharge ED (Routine); Ordered 12/01/24 Ordered By: Brittani Chawla Referrals: Arabella Orta MD [Primary Care Provider, Family Practice] Patient Instructions: Patient Portal & Jeni Instructions Activity Restrictions/Additional Instructions: As we discussed, we will have case management set you up an appointment with cardiology for further evaluation of your chest pain. You may return to the emergency department at any further time for onset of severe and constant chest pain, shortness of breath, difficulty breathing, or any other concerns you may have. Print Language: Sammarinese Coding Level of Care Code ED Supervisor Laboratory Animal Facility for [facility]
--- OUTSIDE RECORDS SUMMARY | 2024-12-01 09:27 | XMS_ITS | Encounter Summary ---
Author Organization [employer] [facility] Address [address] [place] [address] Care Team Providers Care Chalk Tester Name Role Phone Arabella Orta MD Primary Care Provider [phone]- [phone] Encounter Details Date Type Department Care Team (Latest Contact Info) Description 05/02/2001 Outpatient Historical [facility] Mario Martínez Jr., MD [address] [place] [address] ABDOMINAL PAIN UNSPEC SITE (Primary Dx); URETHRAL STRICTURE NOS Social History Tobacco Use Types Packs/Day Years Used Date Smoking Tobacco: Never Assessed Comments Unknown Sex and Gender Information Value Date Recorded Sex Assigned at Not on file Legal Sex 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
--- OUTSIDE RECORDS SUMMARY | 2024-12-01 09:27 | XMS_ITS | Encounter Summary ---
Author Organization [employer] [facility] Address [address] [place] [address] Care Team Providers Care Metal Drill Press Operator Name Role Phone Arabella Orta MD Primary Care Provider [phone]- [phone] Encounter Details Date Type Department Care Team (Latest Contact Info) Description 03/25/1998 Outpatient Historical [facility] Mario Martínez Jr., MD [address] [place] [address] Bronchitis, not specified as acute or chronic (Primary Dx); Disorders of porphyrin metabolism Social History Tobacco Use Types Packs/Day Years Used Date Smoking Tobacco: Never Assessed Comments Unknown Sex and Gender Information Value Date Recorded Sex Assigned at Not on file 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
--- OUTSIDE RECORDS SUMMARY | 2024-12-01 09:27 | XMS_ITS | Encounter Summary ---
Author Organization [employer] [facility] Address [address] [place] [address] Care Team Providers Care Staff Research Scientist Name Role Phone Arabella Orta MD Primary Care Provider [phone]- [phone] Encounter Details Date Type Department Care Team (Latest Contact Info) Description 03/21/2001 Outpatient Historical [facility] Mario Martínez Jr., MD [address] [place] [address] OSTEOPOROSIS NOS (Primary Dx); OSTEOARTHROS NOS-UNSPEC Social History Tobacco Use Types Packs/Day Years Used Date Smoking Tobacco: Never Assessed Comments Unknown Sex and Gender Information Value Date Recorded Sex Assigned at Not on file 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
--- OUTSIDE RECORDS SUMMARY | 2024-12-01 09:27 | XMS_ITS | Encounter Summary ---
Author Organization [employer] [facility] Address [address] [place] [address] Care Team Providers Care Breaker Table Worker Name Role Phone Arabella Orta MD Primary Care Provider [phone]- [phone] Encounter Details Date Type Department Care Team (Latest Contact Info) Description 06/22/2001 Outpatient Historical [facility] Mario Martínez Jr., MD [address] [place] [address] HYPERTENSION NOS (Primary Dx); GENERALIZED ANXIETY DIS Social History Tobacco Use Types Packs/Day Years Used Date Smoking Tobacco: Never Assessed Comments Unknown Sex and Gender Information Value Date Recorded Sex Assigned at Not on file Legal Sex Female 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
--- OUTSIDE RECORDS SUMMARY | 2024-12-01 09:27 | XMS_ITS | Encounter Summary ---
Author Organization [facility] Address [address] [place] [address] Care Team Providers Care Sexual Abuse Counsellor Name Role Phone Arabella Orta MD Primary Care Provider +1- [phone] Encounter Details Date Type Department Care Team (Late st Contact Info) Description 06/22/2001 Outpatient Historical [facility] JudyFeliz MD [address] [id number] SURGERY FOLLOWUP, UNSPEC (Primary Dx) Social History Tobacco Use Types Packs/Day Years Used Date Smoking Tobacco: Never Assessed Comments Unknown Sex and Gender Information Value Date Recorded Sex Assigned at Not on file Legal Sex Female 3:46 AM HOGSHEAD HAND Gender Identity Not on file Sexual Orientation Not on file documented as of this encounter Plan of Treatment Not on file documented as of this encounter Visit Diagnoses Diagnosis Follow-up examination, following unspecified surgery- Primary documented in this encounter Care Teams Sexual Abuse Counsellor Relationship Specialty Start Date End Date Arabella Orta MD [address] [place] [address] PCP - General Family Practice 03/03/12 documented as of this encounter
--- OUTSIDE RECORDS SUMMARY | 2024-12-01 09:27 | XMS_ITS | Encounter Summary ---
Author Organization [facility] Address [address] [place] [address] Care Team Providers Care Marine Welder Name Role Phone Arabella Orta MD Primary Care Provider +1- [phone] Encounter Details Date Type Department Care Team (Latest Contact Info) Description 06/09/2001 Outpatient Historical [facility] Mario Martínez Jr., MD [address] [place] [address] GASTROINTEST HEMORR NOS (Primary Dx); ABDOMINAL PAIN UNSPEC SITE Social History Tobacco Use Types Packs/Day Years Used Date Smoking Tobacco: Never Assessed Comments Unknown Sex and Gender Information Value Date Recorded Sex Assigned at Not on file Legal Sex Female 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
--- OUTSIDE RECORDS SUMMARY | 2024-12-01 09:27 | XMS_ITS | Encounter Summary ---
Author Organization [facility] Address [address] [place] [address] Care Team Providers Care Hr Consultant Name Role Phone Arabella Orta MD Primary Care Provider +1- [phone] Encounter Details Date Type Department Care Team (Late st Contact Info) Description 11/13/2008 Ancillary Orders [facility] [id number] Parveen Herrera MD NO ADDRESS ON FILE Knee Pain Social History Tobacco Use Types Packs/Day Years Used Date Smoking Tobacco: Never Alcohol Use Standard Drinks/Week Comments No 0 (1 standard drink = 0.6 oz pur e alcohol) Comments No Sex and Gender Information Value Date Recorded Sex Assigned at Not on file Legal Sex Female 3:46 AM CONSULTING ACTUARY Gender Identity Not on file Sexual Orientation Not on file documented as of this encounter Plan of Treatment Not on file documented as of this encounter Results * XR KNEE 1 OR 2 VW BILAT (11/13/2008 1:43 PM CDT) Anatomical Region Laterality Modality Lower Extremity Radiographic Cony ging Narrative 11/15/2008 2:38 PM CDT X-RAYS: Plain film x-rays obtained of the knees reveal mild degenerative changes with mild peaking of the tibial spines. Procedure Note Parveen Herrera MD - 11/15/2008 X-RAYS: Plain film x-rays obtained of the knees reveal mild degenerativechanges with mild peaking of the tibial spines. us Parveen Herrera MD DIAGNOSTIC IMAGING ORDERABLE S Final Result documented in this encounter Visit Diagnoses Diagnosis Knee pain Pain in joint, lower leg documented in this encounter Care Teams Hr Consultant Relationship Specialty Start Date End Date Arabella Orta MD [address] [place] [address] PCP - General Family Practice 03/03/12 documented as of this encounter
--- OUTSIDE RECORDS SUMMARY | 2024-12-01 09:27 | XMS_ITS | Encounter Summary ---
Author Organization [employer] [facility] Address [address] [place] [address] Care Team Providers Care Syruper Name Role Phone Arabella Orta MD Primary Care Provider +1- [phone] Encounter Details Date Type Department Care Team (Latest Contact Info) Description 12/15/2000 Outpatient Historical [facility] Mario Martínez Jr., MD [address] [place] [address] Osteoarthrosis, unspecified whether generalized or localized, other specified sites (Primary Dx); Unspecified hypothyroidism; Disorders of sacrum Social History Tobacco Use Types Packs/Day Years Used Date Smoking Tobacco: Never Assessed Comments Unknown Sex and Gender Information Value Date Recorded Sex Assigned at Not on file Legal Sex Female 3:46 AM SLITTER CREASER SLOTTER OPERATOR Gender Identity Not on file Sexual Orientation Not on file documented as of this encounter Plan of Treatment Not on file documented as of this encounter Visit Diagnoses Diagnosis Osteoarthrosis, unspecified whether generalized or localized, other specified sites- Primary Unspecified hypothyroidism Disorders of sacrum documented in this encounter Care Teams Syruper Relationship Specialty Start Date End Date Arabella Orta MD [address] [place] [address] PCP - General Family Practice 03/03/12 documented as of this encounter
--- OUTSIDE RECORDS SUMMARY | 2024-12-01 09:27 | XMS_ITS | Encounter Summary ---
Author Organization [employer] Address [address] [place] [address] Care Team Providers Care Justice Of The Peace Name Role Phone Arabella Orta MD Primary Care Provider +1- [phone] Encounter Details Date Type Department Care Team (Latest Contact Info) Description 01/06/2001 Outpatient Historical [facility] Mario Martínez Jr., MD [address] [place] [address] Unspecified essential hypertension (Primary Dx); Irritable bowel syndrome; Generalized anxiety disorder Social History Tobacco Use Types Packs/Day Years Used Date Smoking Tobacco: Never Assessed Comments Unknown Sex and Gender Information Value Date Recorded Sex Assigned at Not on file Legal Sex Female 3:46 AM MONKEY BREEDER Gender Identity Not on file Sexual Orientation Not on file documented as of this encounter Plan of Treatment Not on file documented as of this encounter Visit Diagnoses Diagnosis Unspecified essential hypertension- Primary Irritable bowel syndrome Generalized anxiety disorder documented in this encounter Care Teams Justice Of The Peace Relationship Specialty Start Date End Date Arabella Orta MD [address] [place] [address] PCP - General Family Practice 03/03/12 documented as of this encounter
--- OUTSIDE RECORDS SUMMARY | 2024-12-01 09:27 | XMS_ITS | Encounter Summary ---
Author Organization [employer] [facility] Address [address] [place] [address] Care Team Providers Care Varnishing Unit Tool Setter Name Role Phone Arabella Orta MD Primary Care Provider +1- [phone] Encounter Details Date Type Department Care Team (Latest Contact Info) Description 01/21/2001 Outpatient Historical [facility] Mario Martínez Jr., MD [address] [place] [address] Unspecified essential hypertension (Primary Dx); Unspecified hypothyroidism Social History Tobacco Use Types Packs/Day Years Used Date Smoking Tobacco: Never Assessed Comments Unknown Sex and Gender Information Value Date Recorded Sex Assigned at Not on file Legal Sex Female 3:46 AM MMD UNIT TEACHER Gender Identity Not on file Sexual Orientation Not on file documented as of this encounter Plan of Treatment Not on file documented as of this encounter Visit Diagnoses Diagnosis Unspecified essential hypertension- Primary Unspecified hypothyroidism documented in this encounter Care Teams Varnishing Unit Tool Setter Relationship Specialty Start Date End Date Arabella Orta MD [address] [place] [address] PCP - General Family Practice 03/03/12 documented as of this encounter
--- OUTSIDE RECORDS SUMMARY | 2024-12-01 09:28 | XMS_ITS | Encounter Summary ---
Author Organization [facility] Address [address] [place] [address] Care Team Providers Care Trade Show Manager Name Role Phone Arabella Orta MD Primary Care Provider +1- [phone] Encounter Details Date Type Department Care Team (Latest Contact Info) Description 10/02/2004 Outpatient Historical [facility] [place] [address] [place] [address] Jesus Bolton, DPM NO ADDRESS ON FILE DIABETES TYPE II W NEURO MANIFESTATIONS (CMS/[facility]) (Primary Dx); LOCAL SKIN INFECTION NOS Social History Tobacco Use Types Packs/Day Years Used Date Smoking Tobacco: Never Assessed Comments Unknown Sex and Gender Information Value Date Recorded Sex Assigned at Not on file Legal Sex Female 3:46 AM CHECKER PRODUCT DESIGN Gender Identity Not on file Sexual Orientation Not on file documented as of this encounter Plan of Treatment Not on file documented as of this encounter Visit Diagnoses Diagnosis Type II or unspecified type diabetes mellitus with neurological manifestations, 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
--- OUTSIDE RECORDS SUMMARY | 2024-12-01 09:28 | XMS_ITS | Encounter Summary ---
Author Organization [employer] [facility] Address [address] [place] [address] Care Team Providers Care Short Order Fry Cook Name Role Phone Arabella Orta MD Primary Care Provider +1- [phone] Encounter Details Date Type Department Care Team (Latest Contact Info) Description 11/09/2001 Outpatient Historical [facility] Mario Martínez Jr., MD [address] [place] [address] OSTEOARTHROS NOS-UNSPEC (Primary Dx) Social History Tobacco Use Types Packs/Day Years Used Date Smoking Tobacco: Never Assessed Comments Unknown Sex and Gender Information Value Date Recorded Sex Assigned at Not on file Legal Sex Female 3:46 AM SYSTEM CONTROLLER Gender Identity Not on file Sexual Orientation Not on file documented as of this encounter Plan of Treatment Not on file documented as of this encounter Visit Diagnoses Diagnosis Osteoarthrosis, unspecified whether generalized or localized, unspecified site- Primary documented in this encounter Care Teams Short Order Fry Cook Relationship Specialty Start Date End Date Arabella Orta MD [address] [place] [address] PCP - General Family Practice 03/03/12 documented as of this encounter
--- OUTSIDE RECORDS SUMMARY | 2024-12-01 09:28 | XMS_ITS | Encounter Summary ---
Author Organization [employer] [facility] Address [address] [place] [address] Care Team Providers Care Parking Lot Supervisor Name Role Phone Arabella Orta MD Primary Care Provider +1- [phone] Encounter Details Date Type Department Care Team (Latest Contact Info) Description 01/30/1999 Outpatient Historical [facility] Mario Martínez Jr., MD [address] [place] [address] Abdominal pain, unspecified site (Primary Dx) Social History Tobacco Use Types Packs/Day Years Used Date Smoking Tobacco: Never Assessed Comments Unknown Sex and Gender Information Value Date Recorded Sex Assigned at Not on file Legal Sex Female 3:46 AM DOFFER Gender Identity Not on file Sexual Orientation Not on file documented as of this encounter Plan of Treatment Not on file documented as of this encounter Visit Diagnoses Diagnosis Abdominal pain, unspecified site- Primary documented in this encounter Care Teams Parking Lot Supervisor Relationship Specialty Start Date End Date Arabella Orta MD [address] [place] [address] PCP - General Family Practice 03/03/12 documented as of this encounter
--- OUTSIDE RECORDS SUMMARY | 2024-12-01 09:28 | XMS_ITS | Encounter Summary ---
Author Organization [facility] Address [address] [place] [address] Care Team Providers Care Esol Teacher Name Role Phone Arabella Orta MD Primary Care Provider +1- [phone] Encounter Details Date Type Department Care Team (Latest Contact Info) Description 07/27/2001 Outpatient Historical [facility] Mario Martínez Jr., MD [address] [place] [address] DIABETES UNCOMPL ADULT-TYPE II (CMS/HCC) (Primary Dx); HYPERTENSION NOS Social History Tobacco Use Types Packs/Day Years Used Date Smoking Tobacco: Never Assessed Comments Unknown Sex and Gender Information Value Date Recorded Sex Assigned at Not on file Legal Sex Female 3:46 AM MANAGER TRANSPORT Gender Identity Not on file Sexual Orientation Not on file documented as of this encounter Plan of Treatment Not on file documented as of this encounter Visit Diagnoses Diagnosis Type II or unspecified type diabetes mellitus without mention of complication, not stated as uncontrolled- Primary Unspecified essential hypertension documented in this encounter Care Teams Esol Teacher Relationship Specialty Start Date End Date Arabella Orta MD [address] [place] [address] PCP - General Family Practice 03/03/12 documented as of this encounter
--- OUTSIDE RECORDS SUMMARY | 2024-12-01 09:28 | XMS_ITS | Encounter Summary ---
Author Organization [employer] [facility] [facility] Address [address] [place] [address] Care Team Providers Care Territory Sales Manager Name Role Phone Arabella Orta MD Primary Care Provider +1- [phone] Encounter Details Date Type Department Care Team (Latest Contact Info) Description 07/06/2000 Outpatient Historical [facility] Mario Martínez Jr., MD [address] [place] [address] Other B-complex deficiencies (Primary Dx) Social History Tobacco Use Types Packs/Day Years Used Date Smoking Tobacco: Never Assessed Comments Unknown Sex and Gender Information Value Date Recorded Sex Assigned at Not on file Legal Sex Female 3:46 AM STRING CUTTER Gender Identity Not on file Sexual Orientation Not on file documented as of this encounter Plan of Treatment Not on file documented as of this encounter Visit Diagnoses Diagnosis Other B-complex deficiencies- Primary documented in this encounter Care Teams Territory Sales Manager Relationship Specialty Start Date End Date Arabella Orta MD [address] [place] [address] PCP - General Family Practice 03/03/12 documented as of this encounter
--- OUTSIDE RECORDS SUMMARY | 2024-12-01 09:28 | XMS_ITS | Encounter Summary ---
Author Organization [facility] Address [address] [place] [address] Care Team Providers Care Chiropractor Assistant Name Role Phone Arabella Orta MD Primary Care Provider +1- [phone] Encounter Details Date Type Department Care Team (Latest Contact Info) Description 09/07/2001 Outpatient Historical [facility] Mario Martínez Jr., MD [address] [place] [address] DIABETES UNCOMPL ADULT-TYPE II ([facility]) (Primary Dx); ESOPHAGEAL REFLUX Social History Tobacco Use Types Packs/Day Years Used Date Smoking Tobacco: Never Assessed Comments Unknown Sex and Gender Information Value Date Recorded Sex Assigned at Not on file Legal Sex Female 3:46 AM CLAIMS COUNSEL Gender Identity Not on file Sexual Orientation Not on file documented as of this encounter Plan of Treatment Not on file documented as of this encounter Visit Diagnoses Diagnosis Type II or unspecified type diabetes mellitus without mention of complication, not stated as uncontrolled- Primary Esophageal reflux documented in this encounter Care Teams Chiropractor Assistant Relationship Specialty Start Date End Date Arabella Orta MD [address] [place] [address] PCP - General Family Practice 03/03/12 documented as of this encounter
--- OUTSIDE RECORDS SUMMARY | 2024-12-01 09:28 | XMS_ITS | Encounter Summary ---
Author Organization [facility] Address [address] [place] [address] Care Team Providers Care Haul Driver Name Role Phone Arabella Orta MD Primary Care Provider +1- [phone] Encounter Details Date Type Department Care Team (Latest Contact Info) Description 10/30/1999 Outpatient Historical [facility] Mario Martínez Jr., MD [address] [place] [address] Unspecified essential hypertension (Primary Dx); Irritable bowel syndrome; Depressive disorder, not elsewhere classified; Unspecified hypothyroidism Social History Tobacco Use Types Packs/Day Years Used Date Smoking Tobacco: Never Assessed Comments Unknown Sex and Gender Information Value Date Recorded Sex Assigned at Not on file Legal Sex Female 3:46 AM SITE RELIABILITY ENGINEER Gender Identity Not on file Sexual Orientation Not on file documented as of this encounter Plan of Treatment Not on file documented as of this encounter Visit Diagnoses Diagnosis Unspecified essential hypertension- Primary Irritable bowel syndrome Depressive disorder, not elsewhere classified Unspecified hypothyroidism documented in this encounter Care Teams Haul Driver Relationship Specialty Start Date End Date Arabella Orta MD [address] [place] [address] PCP - General Family Practice 03/03/12 documented as of this encounter
--- OUTSIDE RECORDS SUMMARY | 2024-12-01 09:28 | XMS_ITS | Encounter Summary ---
Author Organization [facility] Address [address] [place] [address] Care Team Providers Care Damper Worker Name Role Phone Arabella Orta MD Primary Care Provider +1- [phone] Encounter Details Date Type Department Care Team (Latest Contact Info) Description 02/22/2006 Outpatient Historical [facility] Urology- [address]tr[address], 3[address] [place] [address] Zi Osullivan MD [address] [place] [address] [address] [place] [address] Bladder Hypertonicity (Primary Dx) Social History Tobacco Use Types Packs/Day Years Used Date Smoking Tobacco: Never Assessed Comments Unknown Sex and Gender Information Value Date Recorded Sex Assigned at Not on file Legal Sex Female 3:46 AM PHYSICAL THERAPY TEACHER Gender Identity Not on file Sexual Orientation Not on file documented as of this encounter Plan of Treatment Not on file documented as of this encounter Visit Diagnoses Diagnosis Bladder hypertonicity- Primary Hypertonicity of bladder documented in this encounter Care Teams Damper Worker Relationship Specialty Start Date End Date Arabella Orta MD [address] [place] [address] PCP - General Family Practice 03/03/12 documented as of this encounter
--- OUTSIDE RECORDS SUMMARY | 2024-12-01 09:28 | XMS_ITS | Encounter Summary ---
Author Organization [employer] [facility] Address [address] [place] [address] Care Team Providers Care Coat Tailor Name Role Phone Arabella Orta MD Primary Care Provider +1- [phone] Encounter Details Date Type Department Care Team (Latest Contact Info) Description 08/14/1999 Outpatient Historical [facility] Mario Martínez Jr., MD [address] [place] [address] Asymptomatic varicose veins (Primary Dx); Disorders of porphyrin metabolism; Irritable bowel syndrome; Cystitis, unspecified Social History Tobacco Use Types Packs/Day Years Used Date Smoking Tobacco: Never Assessed Comments Unknown Sex and Gender Information Value Date Recorded Sex Assigned at Not on file Legal Sex Female 3:46 AM BULKING MACHINE OPERATOR Gender Identity Not on file Sexual Orientation Not on file documented as of this encounter Plan of Treatment Not on file documented as of this encounter Visit Diagnoses Diagnosis Asymptomatic varicose veins- Primary Uncomplicated varicose veins Disorders of porphyrin metabolism Irritable bowel syndrome Cystitis, unspecified documented in this encounter Care Teams Coat Tailor Relationship Specialty Start Date End Date Arabella Orta MD [address] [place] [address] PCP - General Family Practice 03/03/12 documented as of this encounter
--- OUTSIDE RECORDS SUMMARY | 2024-12-01 09:28 | XMS_ITS | Encounter Summary ---
Author Organization [employer] [facility] Address [address] [place] [address] Care Team Providers Care Lead Material Handler Name Role Phone Arabella Orta MD Primary Care Provider +1- [phone] Encounter Details Date Type Department Care Team (Latest Contact Info) Description 07/23/2000 Outpatient Historical [facility] Mario Martínez Jr., MD [address] [place] [address] Irritable bowel syndrome (Primary Dx); Myalgia and myositis, unspecified; Osteoarthrosis, unspecified whether generalized or localized, unspecified site; Other B-complex deficiencies Social History Tobacco Use Types Packs/Day Years Used Date Smoking Tobacco: Never Assessed Comments Unknown Sex and Gender Information Value Date Recorded Sex Assigned at Not on file Legal Sex Female 3:46 AM ANALYTICAL MANAGER Gender Identity Not on file Sexual Orientation Not on file documented as of this encounter Plan of Treatment Not on file documented as of this encounter Visit Diagnoses Diagnosis Irritable bowel syndrome- Primary Myalgia and myositis, unspecified Mylagia and myositis, unspecified Osteoarthrosis, unspecified whether generalized or localized, unspecified site Other B-complex deficiencies documented in this encounter Care Teams Lead Material Handler Relationship Specialty Start Date End Date Arabella Orta MD [address] [place] [address] PCP - General Family Practice 03/03/12 documented as of this encounter
--- OUTSIDE RECORDS SUMMARY | 2024-12-01 09:28 | XMS_ITS | Encounter Summary ---
Author Organization [facility] Address [address] [place] [address] Care Team Providers Care Carbon Blocks Press Operator Name Role Phone Arabella Orta MD Primary Care Provider +1- [phone] Encounter Details Date Type Department Care Team (Latest Contact Info) Description 10/07/1998 Outpatient Historical [facility] Mario Martínez Jr., MD [address] [place] [address] Backache, unspecified (Primary Dx); Osteoarthrosis, unspecified whether generalized or localized, unspecified site Social History Tobacco Use Types Packs/Day Years Used Date Smoking Tobacco: Never Assessed Comments Unknown Sex and Gender Information Value Date Recorded Sex Assigned at Not on file Legal Sex Female 3:46 AM PHYSICAL EDUCATION PROFESSOR Gender Identity Not on file Sexual Orientation Not on file documented as of this encounter Plan of Treatment Not on file documented as of this encounter Visit Diagnoses Diagnosis Backache, unspecified- Primary Osteoarthrosis, unspecified whether generalized or localized, unspecified site documented in this encounter Care Teams Carbon Blocks Press Operator Relationship Specialty Start Date End Date Arabella Orta MD [address] [place] [address] PCP - General Family Practice 03/03/12 documented as of this encounter
--- OUTSIDE RECORDS SUMMARY | 2024-12-01 09:28 | XMS_ITS | Encounter Summary ---
Author Organization [facility] Address [address] [place] [address] Care Team Providers Care Branch Coordinator Name Role Phone Arabella Orta MD Primary Care Provider +1- [phone] Encounter Details Date Type Department Care Team (Latest Contact Info) Description 07/02/1999 Outpatient Historical [facility] Mario Martínez Jr., MD [address] [place] [address] Pain in limb (Primary Dx); Myalgia and myositis, unspecified; Headache(784.0) Social History Tobacco Use Types Packs/Day Years Used Date Smoking Tobacco: Never Assessed Comments Unknown Sex and Gender Information Value Date Recorded Sex Assigned at Not on file Legal Sex Female 3:46 AM CONCRETE PAVING SUPERVISOR Gender Identity Not on file Sexual Orientation Not on file documented as of this encounter Plan of Treatment Not on file documented as of this encounter Visit Diagnoses Diagnosis Pain in limb- Primary Pain in soft tissues of limb Myalgia and myositis, unspecified Mylagia and myositis, unspecified Headache(784.0) Headache documented in this encounter Care Teams Branch Coordinator Relationship Specialty Start Date End Date Arabella Orta MD [address] [place] [address] PCP - General Family Practice 03/03/12 documented as of this encounter
--- OUTSIDE RECORDS SUMMARY | 2024-12-01 09:28 | XMS_ITS | Encounter Summary ---
Author Organization [employer] [facility] Address [address] [place] [address] Care Team Providers Care Metal Bending Machine Operator Name Role Phone Arabella Orta MD Primary Care Provider +1- [phone] Encounter Details Date Type Department Care Team (Latest Contact Info) Description 06/28/1998 Outpatient Historical [facility] Mario Martínez Jr., MD [address] [place] [address] Disorders of porphyrin metabolism (Primary Dx); Unspecified essential hypertension; Apnea Social History Tobacco Use Types Packs/Day Years Used Date Smoking Tobacco: Never Assessed Comments Unknown Sex and Gender Information Value Date Recorded Sex Assigned at Not on file Legal Sex Female 3:46 AM SWITCHBOARD WIRE WORKER HELPER Gender Identity Not on file Sexual Orientation Not on file documented as of this encounter Plan of Treatment Not on file documented as of this encounter Visit Diagnoses Diagnosis Disorders of porphyrin metabolism- Primary Unspecified essential hypertension Apnea documented in this encounter Care Teams Metal Bending Machine Operator Relationship Specialty Start Date End Date Arabella Orta MD [address] [place] [address] PCP - General Family Practice 03/03/12 documented as of this encounter
--- OUTSIDE RECORDS SUMMARY | 2024-12-01 09:28 | XMS_ITS | Encounter Summary ---
Author Organization [facility] Address [address] [place] [address] Care Team Providers Care Stock Handler Floorperson Name Role Phone Arabella Orta MD Primary Care Provider [phone]- [phone] Encounter Details Date Type Department Care Team (Late st Contact Info) Description 11/26/2004 Outpatient Historical [facility] [place] [address] [place] [id number] Social History Tobacco Use Types Packs/Day Years Used Date Smoking Tobacco: Never Assessed Comments Unknown Sex and Gender Information Value Date Recorded Sex Assigned at Not on file Legal Sex Female 3:46 AM KETTLE HAND Gender Identity Not on file Sexual Orientation Not on file documented as of this encounter Plan of Treatment Not on file documented as of this encounter Visit Diagnoses Not on filedocumented in this encounter Care Teams Stock Handler Floorperson Relationship Specialty Start Date End Date Arabella Orta MD [address] [place] [address] PCP - General Family Practice 03/03/12 documented as of this encounter
--- OUTSIDE RECORDS SUMMARY | 2024-12-01 09:28 | XMS_ITS | Encounter Summary ---
Author Organization [facility] Address [address] [place] [address] Care Team Providers Care Suture Gauger Name Role Phone Arabella Orta MD Primary Care Provider [phone]- [phone] Encounter Details Date Type Department Care Team (Latest Contact Info) Description 07/30/2004 Outpatient Historical [facility] [address] [place] [address] Jesus Bolton, DPM NO ADDRESS ON FILE DIABETES TYPE II W NEURO MANIFESTATIONS (CMS/FORMERLY [facility]) (Primary Dx); LOCAL SKIN INFECTION NOS Social History Tobacco Use Types Packs/Day Years Used Date Smoking Tobacco: Never Assessed Comments Unknown Sex and Gender Information Value Date Recorded Sex Assigned at Not on file 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
--- OUTSIDE RECORDS SUMMARY | 2024-12-01 09:28 | XMS_ITS | Encounter Summary ---
Author Organization [employer] [facility] Address [address] [place] [address] Care Team Providers Care Melt Superintendant Name Role Phone Arabella Orta MD Primary Care Provider +1- [phone] Encounter Details Date Type Department Care Team (Latest Contact Info) Description 12/09/1998 Outpatient Historical [facility] Mario Martínez Jr., MD [address] [place] [address] Abdominal pain, unspecified site (Primary Dx) Social History Tobacco Use Types Packs/Day Years Used Date Smoking Tobacco: Never Assessed Comments Unknown Sex and Gender Information Value Date Recorded Sex Assigned at Not on file 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
--- OUTSIDE RECORDS SUMMARY | 2024-12-01 09:28 | XMS_ITS | Clinical Summary ---
Author Organization [facility] Address [address] [place] [address] Care Team Providers Care Reading Tutor Name Role Phone Arabella Orta MD Primary Care Provider +1- [phone] Allergies Active Allergy Reactions Criticality Noted Date Comments Alprazolam Unknown Medium 06/12/2013 Amitriptyline Abdominal Pain Low 11/01/2013 Barbiturates Abdominal Pain Low 11/13/2008 Cefuroxime Axetil Unknown Medium 06/12/2013 Ciprofloxacin Unknown Low 06/12/2013 Doxycycline Unknown High 06/12/2013 severe Duloxetine Anaphylaxis High 11/13/2008 Hydromorphone (Bulk) Unknown Low 06/12/2013 Levofloxacin Muscle Pain Low 11/13/2008 Meloxicam Anaphylaxis High 06/12/2013 Metformin Anaphylaxis High 11/13/2008 Metoclopramide Hcl Other (See Comments) 014 Severe muscles spasms Morphine Unknown High 06/12/2013 severe Nitrofurantoin Monohyd/M-Cryst Unknown High 06/12/2013 Oxybutynin Rash Low 11/13/2008 Sulfa (Sulfonamide Antibiotics) Abdominal Pain Low 11/13/2008 Medications [id number] oil (METANX, ALGAL OIL,) 3 mg-35 mg-2 mg -90.314 mg CapsuleIndicati ons:Neuropathy, diabetic (CMS/HCC) Take 1 Cap by mouth 2 times daily with meals. NADIR-1 60 Cap 11 3 Active mupirocin (BACTROBAN) 2 % OintmentIndicat ions:Skin fissure Apply to affected area 2 times daily. 22 Gram 1 4 Active MULTIVITAMIN ORAL Take by mouth. Activ e promethazine (PHENERGAN) 25 mg tablet Take 25 mg by mouth every 6 hours as needed. Active Cranberry 500 mg Capsule Take by mouth daily. Active sennosides (SENOKOT) 8.6 mg tablet Take 8.6 mg by mouth 2 times daily. Active docusate sodium (DOCU SOFT) 100 mg capsule Take 100 mg by mouth 2 times daily. 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 Active loratadine (ALAVERT) 10 mg tablet Take 10 mg by mouth 1 time daily as needed. Active meclizine (ANTIVERT) 25 mg tablet Take 25 mg by mouth 2 times daily as needed. Active blood sugar diagnostic (ONE TOUCH TEST) Strip 1 Strip by See Admin Instructions route. Active Blood-Glucose Meter (ONE TOUCH BASIC SYSTEM) Kit by [facility].(Non-Drug; Combo Route) route. Active ONE TOUCH DELICA LANCETS MIS by [facility].(Non-Drug; Combo Route) route. Active bisacodyl (DULCOLAX) 10 mg Suppository Insert 10 mg by rectum 1 time daily as needed for Constipation. Active HYDROcodone-ching taminophen (NORCO) 7.5-325 mg Tablet Take 1 Tab by mouth every 6 hours as needed. Active magnesium citrate solution Take 2 tablespoons 2-3 times a week. Active polyethylene glycol 3350 (MIRALAX) 17 gram/dose Powder Take 1 SCOOP by mouth daily. Dissolve in 8 ounces of fluid and drink entire liquid Active magnesium oxide (MAG-OX) 400 mg tablet Take 400 mg by mouth daily. Active ondansetron (ZOFRAN) 4 mg Tablet Take 4 mg by mouth every 6 hours as needed for Nausea/Emesis. Active metoprolol succinate (TOPROL-XL) 25 mg tablet Take 25 mg by mouth 2 times daily. Active risperiDONE (RISPERDAL) 0.25 mg Tablet Take 1 Tab by mouth 2 times daily. 60 Tab 1 4 Active risperiDONE (RISPERDAL) 0.5 mg tablet Take 1 Tab by mouth daily at bedtime. 30 Tab 1 4 Active omeprazole (PRILOSEC) 20 mg Capsule, Delayed Release(E.C.) Take 2 Caps by mouth daily. 30 Cap 1 4 Active dicyclomine (BENTYL) 10 mg capsule Take 1 Cap by mouth 4 times daily with meals. 120 Cap 2 4 Active insulin aspart (NOVOLOG) 100 unit/mL Solution Low-dose Regimen Insulin Sliding Scale: For Blood Sugar: 120-160 = Give 2 units 161-200 = Give 4 units 201-240 = Give 6 units 241-280 = Give 8 units 281-320 = Give 11 units Greater than 320 = Give 15 units 1 Pen(s) 2 4 Active insulin glargine (LANTUS) 100 unit/mL solution for injection Inject 10 Units by subcutaneous injection daily. 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 05/19/2013 Overview (05/19/2013): Very small lesion, 1-2 mm History of diabetes mellitus 03/17/2013 Overview (03/17/2013): States diet controlled Exostosis, plantar-medial hallux, R. 03/10/2012 Skin lesion, medial hallux-R. 03/10/2012 Tailors bunion, symptomatic, L. 03/03/2012 Epidermal inclusion cyst, pl michael medial IPJ hallux region-R. 03/03/2012 Plantar fasciitis, WOJCIECH. 03/03/2012 Calcaneal spur, inferior and posterior, WOJCIECH. 03/2012 Resolved Problems Problem Noted Date Diagnosed Date Resolved Date Exostosis, PLANTAR-MEDIAL HALLUX-l. 03/03/2012 03/03/2012 History of diabetes mellitus 03/03/2012 03/17/2013 Immunizations Immunization Administration Dates Next Due (PNEUMOVAX 23)(50 YRS UP) PN EUMOCOCCAL POLYSACCHARIDE (PPV23) 0.5 ML, IM 11/11/2013 Family History Medical History Relation Name Comments Cancer Father Diabetes Father Cancer Mother Diabetes Mother Diabetes Sister 1 Diabetes Sister 2 Relation Name Status Comments Father Mother Other Alive Sister 1 Sister 2 Social History Tobacco Use Types Packs/Day Years Used Date Smoking Tobacco: Never Smokeless Tobacco: Never Alcohol Use Standard Drinks/Week Comments No 0 (1 standard drink = 0.6 oz pur e alcohol) Comments No Sex and Gender Information Value Date Recorded Sex Assigned at Not on file 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 Gender Identity Not on file Sexual Orientation Not on file Occupation Industry Job Start Date Job End Date Not on file Not on file Not on file Not on file Last Filed Vital Signs Vital Sign Reading Time Taken Comments Blood Pressure 130/57 12/22/2013 7:00 AM CDT Pulse 64 12/22/2013 7:00 AM CDT Temperature 35.9 C (96.7 F) 11/11/2013 7:00 AM CDT Respiratory Rate 20 11/11/2013 7:00 AM CDT Oxygen Saturation 98% 11/11/2013 7:00 AM CDT Inhaled Oxygen Concentration - - Weight 68.9 kg (152 lb) 12/22/2013 7:00 AM CDT Height 165.1 cm (5' 5 ) 12/22/2013 7:00 AM CDT Body Mass Index 25.29 12/22/2013 7:00 AM CDT Plan of Treatment Health Maintenance Due Date Last Done Comments DTAP/TDAP/TD VACCINES (1 - Tdap) 1962 ZOSTER VACCINE (1 of 2) 1993 OSTEOPOROSIS SCREENING 2008 PNEUMOCOCCAL VACCINE 50+ YEA RS (2 of 2 - PCV) 11/11/2014 11/11/2013 RSV VACCINE (60+ or ) (1 - 1-dose 75+ series) 2018 INFLUENZA VACCINE (#1) 2024 Colorectal Cancer Screening Discontinued FIT/FOBT Q 1 year Discontinued 06/09/2001, , 02/26/1999 COLORECTAL SCREENING Discontinued FIT-DNA Q 3 years Discontinued Flex Sig/CT Colonography Q 5 years Discontinued Insurance MEDICARE PART A AND B [facility] MEDICARE PART A AND B [facility] [place] [address] Advance Directives For more information, please contact: [phone] * Full Code (Latest Code Status on File) Date Activated Date Inactivated Comments 11/07/2013 6:13 AM 11/11/2013 3:23 PM * Full Code Date Activated Date Inactivated Comments 11/01/2013 4:42 PM 11/04/2013 6:09 PM Care Teams Reading Tutor Relationship Specialty Start Date End Date Arabella Orta MD [address] [place] [phone] PCP - General Family Practice 03/03/12
--- OUTSIDE RECORDS SUMMARY | 2024-12-01 09:28 | XMS_ITS | Encounter Summary ---
Author Organization [facility] Address [address] [place] [address] Care Team Providers Care Coach Name Role Phone Arabella Orta MD Primary Care Provider [phone] Encounter Details Date Type Department Care Team (Late st Contact Info) Description 03/13/2006 Inpatient Historical HIS IN BED Mathew Sandoval MD NO ADDRESS ON FILE Acute or Unspecified Pelvic Peritonitis, Female (Primary Dx) Social History Tobacco Use Types Packs/Day Years Used Date Smoking Tobacco: Never Assessed Comments Unknown Sex and Gender Information Value Date Recorded Sex Assigned at Not on file 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 Gender Identity Not on file Sexual Orientation Not on file documented as of this encounter Plan of Treatment Not on file documented as of this encounter Procedures Procedure Name Priority Date/Time Associated Diagnosis Comments POC GLUCOSE Routine 03/19/2006 7:25 AM CDT POC GLUCOSE Routine 03/18/2006 8:56 PM CDT POC GLUCOSE Routine 03/18/2006 6:08 PM CDT POC GLUCOSE Routine 03/18/2006 1:00 PM CDT POC GLUCOSE Routine 03/18/2006 8:18 AM CDT POC GLUCOSE Routine 03/18/2006 6:06 AM CDT POC GLUCOSE Routine 03/17/2006 9:26 PM CDT POC GLUCOSE Routine 03/17/2006 6:08 PM CDT GLUCOSE URINALYSIS, QUALITATIVE Routine 03/17/2006 3:05 PM CDT URINALYSIS MICROSCOPY ONLY Routine 03/17/2006 3:05 PM CDT URINALYSIS W/REFLEX MICROSCOPIC Routine 03/17/2006 3:05 PM CDT POC GLUCOSE Routine 03/17/2006 11:57 AM CDT POC GLUCOSE Routine 03/17/2006 7:55 AM CDT POC GLUCOSE Routine 03/16/2006 9:46 PM CDT POC GLUCOSE Routine 03/16/2006 6:14 PM CDT CANCER ANTIGEN 125 Routine 03/16/2006 5: 25 PM CDT POC GLUCOSE Routine 03/16/2006 12:35 PM CDT POC GLUCOSE Routine 03/16/2006 8:11 AM CDT POC GLUCOSE Routine 03/15/2006 9:40 PM CDT POC GLUCOSE Routine 03/15/2006 5:14 PM CDT POC GLUCOSE Routine 03/15/2006 11:18 AM CDT CREATININE Routine 03/15/2006 7:01 AM CDT POC GLUCOSE Routine 03/15/2006 6:11 AM CDT POC GLUCOSE Routine 03/14/2006 9:39 PM CDT POC GLUCOSE Routine 03/14/2006 5:35 PM CDT POC GLUCOSE Routine 03/14/2006 11:27 AM CDT POC GLUCOSE Routine 03/14/2006 7:32 AM CDT POC GLUCOSE Routine 03/13/2006 9:44 PM CDT COMPREHENSIVE METABOLIC PANEL Routine 03/13/2006 6:39 PM CDT CBC WITH DIFFERENTIAL Routine 03/13/2006 5:30 PM CDT XR SMALL BOWEL Routine 03/13/2006 4:[address] ABDOMEN PELVIS W CONTRAST Routine 03/13/2006 4:00 PM CDT MRA ABDOMEN W WO CONTRAST Routine 03/13/2006 4:00 PM CDT US ABD PELV ART VEIN LTD Routine 03/13/2006 4:00 PM CDT documented in this encounter Results * (ABNORMAL) POC GLUCOSE (03/19/2006 7:25 AM CDT) GLUCOSE POC 108(H) 60 - 100 mg/dL INTERFACE SYSTEM 03/19/2006 7:25 AM CDT Mathew Sandoval MD POINT OF CARE TESTING Shital l Result Performing Organization Address [facility] Co de Phone Number INTERFACE SYSTEM Refer to clinic/hospital department * (ABNORMAL) POC GLUCOSE (03/18/2006 8:56 PM CDT) GLUCOSE POC 143(H) 60 - 100 mg/dL INTERFACE SYSTEM COMMENT POC Notify R.N INTERFA CE SYSTEM 03/18/2006 8:56 PM CDT Mathew Sandoval MD POINT OF CARE TESTING Shital l Result Performing Organization Address [facility] Co de Phone Number INTERFACE SYSTEM Refer to clinic/hospital department * (ABNORMAL) POC GLUCOSE (03/18/2006 6:08 PM CDT) GLUCOSE POC 167(H) 60 - 100 mg/dL INTERFACE SYSTEM COMMENT POC Notify R.N INTERFA CE SYSTEM 03/18/2006 6:08 PM CDT Mathew Sandoval MD POINT OF CARE TESTING Shital l Result Performing Organization Address [facility] Co de Phone Number INTERFACE SYSTEM Refer to clinic/hospital department * (ABNORMAL) POC GLUCOSE (03/18/2006 1:00 PM CDT) GLUCOSE POC 123(H) 60 - 100 mg/dL INTERFACE SYSTEM 03/18/2006 1:00 PM CDT Mathew Sandoval MD POINT OF CARE TESTING Shital l Result Performing Organization Address [facility] Phone Number INTERFACE SYSTEM Refer to clinic/hospital department * (ABNORMAL) POC GLUCOSE (03/18/2006 8:18 AM CDT) GLUCOSE POC 151(H) 60 - 100 mg/dL INTERFACE SYSTEM 03/18/2006 8:18 AM CDT Mathew Sandoval MD POINT OF CARE TESTING Shital l Result Performing Organization Address [facility] Phone Number INTERFACE SYSTEM Refer to clinic/hospital department * (ABNORMAL) POC GLUCOSE (03/18/2006 6:06 AM CDT) GLUCOSE POC 133(H) 60 - 100 mg/dL INTERFACE SYSTEM 03/18/2006 6:06 AM CDT Mathew Sandoval MD POINT OF CARE TESTING Shital l Result Performing Organization Address [facility] Co de Phone Number INTERFACE SYSTEM Refer to clinic/hospital department * (ABNORMAL) POC GLUCOSE (03/17/2006 9:26 PM CDT) GLUCOSE POC 204(H) 60 - 100 mg/dL INTERFACE SYSTEM 03/17/2006 9:26 PM CDT Mathew Sandoval MD POINT OF CARE TESTING Shital l Result Performing Organization Address [facility] Phone Number INTERFACE SYSTEM Refer to clinic/hospital department * POC GLUCOSE (03/17/2006 6:08 PM CDT) GLUCOSE POC 92 60 - 100 mg/dL INTERFACE SYSTEM 03/17/2006 6:08 PM CDT Mathew Sandoval MD POINT OF CARE TESTING Shital l Result Performing Organization Address [facility] Phone Number INTERFACE SYSTEM Refer to clinic/hospital department * URINALYSIS MICROSCOPY ONLY (03/17/2006 3:05 PM CDT) WBC URINE 0-2 0 - 2 INTERFACE SYSTEM RBC UA 0-2 0 - 2 INTERFACE SYSTEM HYALINE CAST None Seen 0 - 2 INTERFA CE SYSTEM BACTERIA UA None Seen None Seen INTERFAC E SYSTEM 03/17/2006 3:05 PM CDT Mathew Sandoval MD URINE ORDERABLES Final Res ult Performing Organization Address [facility] Phone Number INTERFACE SYSTEM Refer to clinic/hospital department * (ABNORMAL) GLUCOSE URINALYSIS, QUALITATIVE (03/17/2006 3:05 PM CDT) GLUCOSE, URINE 100 mg/dl(A) Negative INTERFACE SYSTEM 03/17/2006 3:05 PM CDT Mathew Sandoval MD URINE ORDERABLES Final Res ult Performing Organization Address [facility] Phone Number INTERFACE SYSTEM Refer to clinic/hospital department * (ABNORMAL) URINALYSIS (03/17/2006 3:05 PM CDT) COLOR UA Yellow Straw INTERFACE SYSTEM CLARITY UA Clear Clear INTERFACE SYSTEM LEUKOCYTE ESTERASE UA Trace(A) NEGATIVE INTERFACE SYSTEM NITRITE UA NEGATIVE NEGATIVE INTERFACE SYSTEM PH UA 6.0 5.0 - 9.0 INTERFACE SYSTEM PROTEIN UA NEGATIVE NEGATIVE INTERFACE SYSTEM Comment: As of 05 positive protein results obtained on routine urinalysis will not be confirmed by sulfosalicylic acid (SSA) precipitation. Current methodology for protein detection is highly sensitive for detection of albumin; therefore, confirmation is not necessary. KETONES UA NEGATIVE NEGATIVE INTERFACE SYSTEM UROBILINOGEN UA 0.2 0.2 INTE RFACE SYSTEM BILIRUBIN UA NEGATIVE NEGATIVE INTERFA CE SYSTEM BLOOD UA Trace(A) NEGATIVE INTERFACE SYSTEM SPECIFIC GRAVITY UA <=1.005(A) 1.005 - 1.030 INTERFACE SYSTEM MICRO EXAM Yes(A) No INTERFACE SYSTEM 03/17/2006 3:05 PM CDT Mathew Sandoval MD URINE ORDERABLES Final Res ult Performing Organization Address [facility] Phone Number INTERFACE SYSTEM Refer to clinic/hospital department * (ABNORMAL) POC GLUCOSE (03/17/2006 11:57 AM CDT) GLUCOSE POC 196(H) 60 - 100 mg/dL INTERFACE SYSTEM COMMENT POC Notify R.N INTERFA CE SYSTEM 03/17/2006 11:5 7 AM CDT Mathew Sandoval MD POINT OF CARE TESTING Shital l Result Performing Organization Address [facility] Phone Number INTERFACE SYSTEM Refer to clinic/hospital department * (ABNORMAL) POC GLUCOSE (03/17/2006 7:55 AM CDT) GLUCOSE POC 179(H) 60 - 100 mg/dL INTERFACE SYSTEM COMMENT POC Notify R.N INTERFA CE SYSTEM 03/17/2006 7:55 AM CDT Mathew Sandoval MD POINT OF CARE TESTING Shital l Result Performing Organization Address [facility] Phone Number INTERFACE SYSTEM Refer to clinic/hospital department * (ABNORMAL) POC GLUCOSE (03/16/2006 9:46 PM CDT) GLUCOSE POC 245(H) 60 - 100 mg/dL INTERFACE SYSTEM 03/16/2006 9:46 PM CDT Mathew Sandoval MD POINT OF CARE TESTING Shital l Result Performing Organization Address [facility] Co de Phone Number INTERFACE SYSTEM Refer to clinic/hospital department * (ABNORMAL) POC GLUCOSE (03/16/2006 6:14 PM CDT) GLUCOSE POC 134(H) 60 - 100 mg/dL INTERFACE SYSTEM 03/16/2006 6:14 PM CDT Mathew Sandoval MD POINT OF CARE TESTING Shital l Result Performing Organization Address [facility] Phone [facility] INTERFACE SYSTEM Refer to clinic/hospital department * CANCER ANTIGEN 125 (03/16/2006 5:25 PM CDT) CA 125 See Sep Report INTERFACE SYSTEM 03/16/2006 5:25 PM CDT Mathew Sandoval MD CHEMISTRY ORDERABLES Final Result Performing Organization Address [facility] Co de Phone Number INTERFACE SYSTEM Refer to clinic/hospital department * (ABNORMAL) POC GLUCOSE (03/16/2006 12:35 PM CDT) GLUCOSE POC 203(H) 60 - 100 mg/dL INTERFACE SYSTEM COMMENT POC Notify R.N INTERFA CE SYSTEM 03/16/2006 12:3 5 PM CDT Mathew Sandoval MD POINT OF CARE TESTING Shital l Result INTERFACE SYSTEM Refer to clinic/hospital department * (ABNORMAL) POC GLUCOSE (03/16/2006 8:11 AM CDT) GLUCOSE POC 146(H) 60 - 100 mg/dL INTERFACE SYSTEM 03/16/2006 8:11 AM CDT Mathew Sandoval MD POINT OF CARE TESTING Shital l Result Performing Organization Address [facility] Phone Number INTERFACE SYSTEM Refer to clinic/hospital department * (ABNORMAL) POC GLUCOSE (03/15/2006 9:40 PM CDT) GLUCOSE POC 254(H) 60 - 100 mg/dL INTERFACE SYSTEM 03/15/2006 9:40 PM CDT Mathew Sandoval MD POINT OF CARE TESTING Shital l Result Performing Organization Address [facility] Phone Number INTERFACE SYSTEM Refer to clinic/hospital department * (ABNORMAL) POC GLUCOSE (03/15/2006 5:14 PM CDT) GLUCOSE POC 154(H) 60 - 100 mg/dL INTERFACE SYSTEM 03/15/2006 5:1 4 PM CDT Mathew Sandoval MD POINT OF CARE TESTING Shital l Result Performing Organization Address [facility] Phone Number INTERFACE SYSTEM Refer to clinic/hospital department * (ABNORMAL) POC GLUCOSE (03/15/2006 11:18 AM CDT) GLUCOSE POC 124(H) 60 - 100 mg/dL INTERFACE SYSTEM 03/15/2006 11:1 8 AM CDT Mathew Sandoval MD POINT OF CARE TESTING Shital l Result Performing Organization Address [facility] Phone Number INTERFACE SYSTEM Refer to clinic/hospital department * CREATININE (03/15/2006 7:01 AM CDT) CREATININE 0.8 0.7 - 1.2 mg/dL INTERFACE SYSTEM 03/15/2006 7:01 AM CDT Mathew Sandoval MD CHEMISTRY ORDERABLES Final Result Performing Organization Address [facility] Phone Number INTERFACE SYSTEM Refer to clinic/hospital department * (ABNORMAL) POC GLUCOSE (03/15/2006 6:11 AM CDT) GLUCOSE POC 136(H) 60 - 100 mg/dL INTERFACE SYSTEM 03/15/2006 6:11 AM CDT Mathew Sandoval MD POINT OF CARE TESTING Shital l Result Performing Organization Address [facility]/ZIP Co de Phone Number INTERFACE SYSTEM Refer to clinic/hospital department * (ABNORMAL) POC GLUCOSE (03/14/2006 9:39 PM CDT) GLUCOSE POC 135(H) 60 - 100 mg/dL INTERFACE SYSTEM 03/14/2006 9:39 PM CDT Mathew Sandoval MD POINT OF CARE TESTING Shital l Result Performing Organization Address [facility] Co me Phone Number INTERFACE SYSTEM Refer to clinic/hospital department * (ABNORMAL) POC GLUCOSE (03/14/2006 5:35 PM CDT) GLUCOSE POC 141(H) 60 - 100 mg/dL INTERFACE SYSTEM 03/14/2006 5:35 PM CDT Mathew Sandoval MD POINT OF CARE TESTING Shital l Result Performing Organization Address [facility] Co me Phone Number INTERFACE SYSTEM Refer to clinic/hospital department * (ABNORMAL) POC GLUCOSE (03/14/2006 11:27 AM CDT) GLUCOSE POC 195(H) 60 - 100 mg/dL INTERFACE SYSTEM 03/14/2006 11:2 7 AM CDT us Mathew Sandoval MD POINT OF CARE TESTING Shital l Result Performing Organization Address [facility] Co de Phone Number INTERFACE SYSTEM Refer to clinic/hospital department * (ABNORMAL) POC GLUCOSE (03/14/2006 7:32 AM CDT) GLUCOSE POC 121(H) 60 - 100 mg/dL INTERFACE SYSTEM 03/14/2006 7:32 AM CDT Mathew Sandoval MD POINT OF CARE TESTING Shital l Result Performing Organization Address [facility]/ZIP Co de Phone Number INTERFACE SYSTEM Refer to clinic/hospital department * (ABNORMAL) POC GLUCOSE (03/13/2006 9:44 PM CDT) GLUCOSE POC 232(H) 60 - 100 mg/dL INTERFACE SYSTEM 03/13/2006 9:44 PM CDT Mathew Sandoval MD POINT OF CARE TESTING Shital l Result Performing Organization Address [facility] Phone Number INTERFACE SYSTEM Refer to clinic/hospital department * (ABNORMAL) COMPREHENSIVE METABOLIC PANEL (03/13/2006 6:39 PM CDT) GLUCOSE 99 70 - 110 mg/dL INTERFACE SYSTEM CO2 22 22 - 32 mmol/l INTERFACE SYSTEM ANION GAP 18 9 - 20 mEq/L INTERFACE SYSTEM OSMOLALITY, CALCULATED 286 275 - 295 mOsm/Kg INTERFACE SYSTEM CALCIUM 10.4 8.4 - 10.5 mg/dL INTERFACE SYSTEM ALBUMIN 4.2 3.5 - 5.0 g/dL INTERFACE SYSTEM GLOBULIN (CALC) 3.3 2.4 - 3.9 g/dL INTERFACE SYSTEM ALBUMIN/GLOBULIN RATIO 1.3 1.0 - 2.3 INTERFACE SYSTEM BUN 10 7 - 17 mg/dL INTERFACE SYSTEM CREATININE 0.6(L) 0.7 - 1.2 mg/dL INTERFACE SYSTEM SODIUM 139 136 - 145 mEq/L INTERFACE SYSTEM POTASSIUM 4.6 3.5 - 5.0 mEq/L INTERFACE SYSTEM CHLORIDE 104 95 - 110 mEq/L INTERFACE SYSTEM TOTAL PROTEIN 7.5 6.3 - 8.2 g/dL INTERFACE SYSTEM ALKALINE PHOSPHATASE 88 25 - 100 U/L INTERFACE SYSTEM Comment: As of 05 the [facility] has changed testing methods. The new reference range is 25-100 The old referance range was 38-126 AST 25 8 - 33 U/L INTERFACE SYSTEM Comment: As of 05 the [facility] [employer] has changed testing methods. The new reference range is 8-33 The old referance range was Males 17-59 Females 14-36 ALT 31 4 - 36 IU/L INTERFACE SYSTEM Comment: As of 05 the [facility] has changed testing methods. The new reference range is 4-36 The old referance range was Males 21-72 Females 9-52 BILIRUBIN TOTAL 0.4 0.3 - 1.2 mg/dL INTERFACE SYSTEM Comment: As of 05 the [facility] has changed testing methods. The new reference range is 0.3-1.2 The old referance range was 0.2-1.4 03/13/2006 6:39 PM CDT [facility] Oseas Franco MD CHEMISTRY ORDERABLES Final R esult INTERFACE SYSTEM Refer to clinic/hospital department * CBC WITH DIFFERENTIAL (03/13/2006 5:30 PM CDT) PERIPHERAL BLOOD SMEAR REVIEW Automated Diff Automated Diff INTERFACE SYSTEM HEM COMMENT redrawn 1830 INTER FACE SYSTEM WBC 8.6 4.8 - 10.8 K/ul INTERFACE SYSTEM RBC 4.72 4.20 - 5.40 Mil/ul INTERFACE SYSTEM HEMOGLOBIN 14.1 12.0 - 16.0 g/dL INTERFACE SYSTEM HEMATOCRIT 42.1 36.0 - 46.0 % INTERFACE SYSTEM MCV 89.2 84.0 - 103.0 Fl INTERFACE SYSTEM MCH 29.9 27.0 - 34.0 pg INTERFACE SYSTEM MCHC 33.5 30.0 - 35.0 g/dL INTERFACE SYSTEM RDW 12.9 11.0 - 14.5 % INTERFACE SYSTEM PLATELETS 222 140 - 440 K/ul INTERFACE SYSTEM MPV 10.2 8.9 - 12.8 Fl INTERFACE SYSTEM NEUTROPHILS 61.5 42.2 - 75.2 % INTERFACE SYSTEM LYMPHOCYTES 29.5 24.0 - 44.0 % INTERFACE SYSTEM MONOCYTES 7.3 2.0 - 10.0 % INTERFA CE SYSTEM EOSINOPHILS 1.4 0.0 - 7.0 % INTERF SARAH SYSTEM BASOPHILS 0.3 0.0 - 1.0 % INTERFAC E SYSTEM NEUTROPHIL ABSOLUTE 5.3 2.0 - 8.0 K/uL INTERFACE SYSTEM LYMPHOCYTE ABSOLUTE 2.5 1.2 - 4.0 K/ul INTERFACE SYSTEM MONOCYTE ABSOLUTE 0.6 0.1 - 0.6 K/ul INTERFACE SYSTEM EOSINOPHIL ABSOLUTE 0.1 0.0 - 0.7 K/ul INTERFACE SYSTEM BASOPHILS ABSOLUTE 0.0 0.0 - 0.2 K/ul INTERFACE SYSTEM 03/13/2006 5:3 0 PM CDT Cecilia Franco MD HEMATOLOGY ORDERABLES Final Result INTERFACE SYSTEM Refer to clinic/hospital department * MRA ABDOMEN W WO CONTRAST (03/13/2006 4:00 PM CDT) Anatomical Region Laterality Modality Abdomen Other 03/13/2006 4:00 PM CDT Narrative 03/13/2006 4:00 PM CDT MRA Abdomen with and without Contrast. History: Abdominal pain. Findings: MR angiography of the abdomen performed both before and after administration of intravenousgadolinium (20 mL Magnevist). Arteriovascular structures are intact with no evidence of significantstenosis. The SMA and celiac artery are widely patent. The renal arteries are patent. Remainder ofthe visualized abdomen is unremarkable given limitation of the technique. Impression: No evidence of mesenteric arterial stenosis. - Dictated By: Jered Meneses M.D. Electronically Signed By: Jered Meneses M.D. Date Signed: 03/19/06 Procedure Note 04/12/2009 MRA Abdomen with and without Contrast. History: Abdominal pain. Findings: MR angiography of the abdomen performed both before and afteradministration of intravenousgadolinium (20 mL Magnevist). Arteriovascular structures are intact with no evidence ofsignificantstenosis. The SMA and celiac artery are widely patent. The renal arteries are patent.Remainder ofthe visualized abdomen is unremarkable given limitation of the technique. Impression: No evidence of mesenteric arterial stenosis. - Dictated By: Jered Meneses M.D. Electronically Signed By: Jered Meneses M.D. Date Signed: 03/19/06 us Mathew Sandoval MD MR ORDERABLES Final Resu lt * XR SMALL BOWEL (03/13/2006 4:00 PM CDT) Anatomical Region Laterality Modality Abdomen Other 03/13/2006 4:00 PM CDT Narrative 03/13/2006 4:00 PM CDT SMALL-BOWEL STUDY: FINDINGS: Following oral administration of contrast, prompt gastric emptying of contrast from the stomach into unremarkable-appearing duodenum. Contrast followed through small bowel to the terminal ileum with transit time of approximately two hours. Small-bowel caliber within normal limits. No abnormal separation of bowel loops. No apparent abnormal transition zone. Visualized mucosal folds unremarkable. IMPRESSION: Unremarkable examination. jaw Dictated By: Wes Torre M.D. Electronically Signed By: Wes Torre M.D. Date Signed: 03/18/06 [facility] Procedure Note 04/12/2009 SMALL-BOWEL STUDY: FINDINGS: Following oral administration of contrast, prompt gastric emptying ofcontrast from the stomach into unremarkable-appearing duodenum. Contrast followed through small bowel tothe terminal ileum with transit time of approximately two hours. Small-bowel caliber withinnormal limits. No abnormal separation of bowel loops. No apparent abnormal transition zone.Visualized mucosal folds unremarkable. IMPRESSION: Unremarkable examination. jaw Dictated By: Wes Torre M.D. Electronically Signed By: Wes Torre M.D. Date Signed: 03/18/06 [facility] us Mathew Sandoval MD DIAGNOSTIC IMAGING ORDERAB LES Final Result * US ABD PELV SCROTAL ART VEIN LTD (03/13/2006 4:00 PM CDT) Anatomical Region Laterality Modality Abdomen Other 03/13/2006 4:00 PM CDT Narrative 03/13/2006 4:00 PM CDT Mesenteric Doppler Ultrasound 03/18/2006Patency of both SMA and celiac axis. Elevated velocity within the celiac axis measuring 2.4 meters persecond (less than 2 meters per second considered to be within normal limits). Velocity of SMA istop limits of normal measuring 2.6 meters per second (less than 2.75 meters per second consideredto be within normal limits). Velocity ratios of both vessels with respect to the abdominal aortaelevated measuring 3.4 and 3.1 respectively for the SMA and celiac axis (less than 3 considered diane within normal limits). 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 Furthercorrelation with dedicated mesenteric arteriogram may be of benefit as clinically warranted. - Dictated By: Wes Torre M.D. Electronically Signed By: Wes Torre M.D. Date Signed: 03/18/06 [facility] Procedure Note 04/12/2009 Mesenteric Doppler Ultrasound 03/18/2006Patency of both SMA and celiacaxis. Elevated velocity within the celiac axis measuring 2.4 meters persecond (less than 2 meters per secondconsidered to be within normal limits). Velocity of SMA istop limits of normal measuring 2.6 meters persecond (less than 2.75 meters per second consideredto be within normal limits). Velocity ratios of bothvessels with respect to the abdominal aortaelevated measuring 3.4 and 3.1 respectively for the SMA andceliac axis (less than 3 considered diane within normal limits). Impression: Overall findings suspect for a component of stenosis of the celiac axisand SMA. Furthercorrelation with dedicated mesenteric arteriogram may be of benefit as clinicallywarranted. - Dictated By: Wes Torre M.D. Electronically Signed By: Wes Torre M.D. Date Signed: 03/18/06 [facility] us Mathew Sandoval MD US ORDERABLES Final Resu lt * CT ABDOMEN PELVIS W CONTRAST (03/13/2006 4:00 PM CDT) Anatomical Region Laterality Modality Abdomen Other 03/13/2006 4:00 PM CDT Narrative 03/13/2006 4:[address] Abdomen and Pelvis: Technique: CT of the abdomen and pelvis was performed following the administration of oral, rectaland intravenous contrast 75 mL Optiray 350. History: Abdominal pain. Findings: Comparison is made with the prior exam dated 03/05/2006. The liver, gallbladder, spleen,pancreas, adrenals and kidneys are within normal limits. 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 Diverticular disease of the colon is present with no acute inflammatorychange. The uterus is surgically absent. No adnexal pathology is evident. The urinary bladder isunremarkable. The lung bases are clear. There are degenerative changes present in the spine. Osteitis condensans ilii is present. Impression: No evidence of acute disease or significant interval change. Diverticular disease of thecolon with no acute inflammatory components. - Dictated By: Jered Meneses M.D. Electronically Signed By: Jered Meneses M.D. Date Signed: 03/15/06 [facility] Procedure Note 04/12/2009 CT Abdomen and Pelvis: Technique: CT of the abdomen and pelvis was performed following the administration oforal, rectaland intravenous contrast 75 mL Optiray 350. History: Abdominal pain. Findings: Comparison is made with the prior exam dated 03/05/2006. The liver,gallbladder, spleen,pancreas, adrenals and kidneys are within normal limits. There is subtle mildstranding of the midmesenteric fat with preservation of perivascular spaces in a pattern felt to most likelyrepresentmesenteric panniculitis. Diverticular disease of the colon is present with no acuteinflammatorychange. The uterus is surgically absent. No adnexal pathology is evident. The urinarybladder isunremarkable. The lung bases are clear. There are degenerative changes present in the spine. Osteitis condensans ilii is present. Impression: No evidence of acute disease or significant interval change. Diverticulardisease of thecolon with no acute inflammatory components. - Dictated By: Jered Meneses M.D. Electronically Signed By: Jered Meneses M.D. Date Signed: 03/15/06 [facility] us Mathew Sandoval MD CT ORDERABLES Final Resu lt documented in this encounter Visit Diagnoses Diagnosis Acute or unspecified pelvic peritonitis, female- Primary documented in this encounter Care Teams Coach Relationship Specialty Start Date End Date Arabella Orta MD [address] [place] [id number] PCP - General Family Practice 03/03/12 documented as of this encounter
--- OUTSIDE RECORDS SUMMARY | 2024-12-01 09:28 | XMS_ITS | Encounter Summary ---
Author Organization [facility] Address [address] [place] [address] Care Team Providers Care Sustainability Manager Name Role Phone Arabella Orta MD Primary Care Provider +1- [phone] Encounter Details Date Type Department Care Team (Latest Contact Info) Description 02/08/2002 Outpatient Historical [facility] Mario Martínez Jr., MD [address] [place] [address] GENERAL OSTEOARTHROSIS (Primary Dx); HYPERTENSION NOS; DIABETES UNCOMPL ADULT-TYPE II (CMS/HCC) Social History Tobacco Use Types Packs/Day Years Used Date Smoking Tobacco: Never Assessed Comments Unknown Sex and Gender Information Value Date Recorded Sex Assigned at Not on file 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 Gender Identity Not on file Sexual Orientation Not on file documented as of this encounter Plan of Treatment Not on file documented as of this encounter Visit Diagnoses Diagnosis Generalized osteoarthrosis, involving multiple sites- Primary Unspecified essential hypertension Type II or unspecified type diabetes mellitus without mention of complication, not stated as uncontrolled documented in this encounter Care Teams Sustainability Manager Relationship Specialty Start Date End Date Arabella Orta MD [address] [place] [address] PCP - General Family Practice 03/03/12 documented as of this encounter
--- OUTSIDE RECORDS SUMMARY | 2024-12-01 09:28 | XMS_ITS | Encounter Summary ---
Author Organization [facility] Address [address] [place] [address] Care Team Providers Care Pacs Specialist Name Role Phone Arabella Orta MD Primary Care Provider +1- [phone] Encounter Details Date Type Department Care Team (Latest Contact Info) Description 11/06/1998 Outpatient Historical [facility] Mario Martínez Jr., MD [address] [place] [address] Osteoarthrosis, unspecified whether generalized or localized, unspecified site (Primary Dx); Unspecified essential hypertension; Disorders of porphyrin metabolism Social History Tobacco Use Types Packs/Day Years Used Date Smoking Tobacco: Never Assessed Comments Unknown Sex and Gender Information Value Date Recorded Sex Assigned at Not on file 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
--- OUTSIDE RECORDS SUMMARY | 2024-12-01 09:28 | XMS_ITS | Encounter Summary ---
Author Organization [facility] Address [address] [place] [address] Care Team Providers Care Inventory Control Coordinator Name Role Phone Aarbella Orta MD Primary Care Provider [phone]- [phone] Encounter Details Date Type Department Care Team (Latest Contact Info) Description 08/08/1999 Outpatient Historical [facility] Mario Martínez Jr., MD [address] [place] [address] Osteoarthrosis, unspecified whether generalized or localized, unspecified site (Primary Dx); Peripheral vascular disease, unspecified; Lipoma of unspecified site Social History Tobacco Use Types Packs/Day Years Used Date Smoking Tobacco: Never Assessed Comments Unknown Sex and Gender Information Value Date Recorded Sex Assigned at Not on file 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
--- OUTSIDE RECORDS SUMMARY | 2024-12-01 09:28 | XMS_ITS | Encounter Summary ---
Author Organization [employer] [facility] Address [address] [place] [address] Care Team Providers Care Home Attendant Name Role Phone Arabella Orta MD Primary Care Provider +1- [phone] Encounter Details Date Type Department Care Team (Latest Contact Info) Description 09/06/1998 Outpatient Historical [facility] Mario Martínez Jr., MD [address] [place] [address] Impacted cerumen (Primary Dx); Acute sinusitis, unspecified Social History Tobacco Use Types Packs/Day Years Used Date Smoking Tobacco: Never Assessed Comments Unknown Sex and Gender Information Value Date Recorded Sex Assigned at Not on file 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
--- OUTSIDE RECORDS SUMMARY | 2024-12-01 09:28 | XMS_ITS | Data Portability ---
Author Organization [place] - Sukumar Ramirez [facility] Address [address] [facility] [address] [address] Care Team Providers Care Project Management Intern Name Role Phone ADRIEN HARTLEY Primary Care Provider [phone] Assessment No assessment recorded. Plan of Treatment Reminders Order Date Submit Date Provider Last Modified By Organization Details Last Modified Time Details Appointments None recorded. Lab None recorded. Referral None recorded. Procedures None recorded. Surgeries None recorded. Imaging None recorded. Medication Orders oxycodone 5 mg tablet 2024 025 [id number], [address], [place], [place], [id number], 18:02:51 Patient TargetsNo targets recorded. Patient Instructions Encounter Date Encounter Id Patient Instructions Last Modified By Organization Details Last Modified Time 08/30/2024 [id number] admitted with patellar fracture after a fall s/p orif; admission complicated by bacteremia, uti with klebsiella; evaluated by ID with PICC in place. Also with surgical wound infection. h/o adrenal insufficiency d/c several vitamins. Follows with Dr. Denson. f/u 1 week. [email or web address] Not available 09/03/2024 15:42:35 09/21/2024 [id number] Continues on abx . Sugars too high, increase lispro to 28 units and tresiba to 80 units. [email or web address] Not available 09/21/2024 11:20:50 10/12/2024 [id number] admitted with patellar fracture after a fall s/p orif; admission complicated by bacteremia, uti with klebsiella; evaluated by ID with PICC in place. Also with surgical wound infection. Completed all IV abx, and planning to d/c home from [facility] tomorrow. Will need to establish with Dr. Hartley. She will need front wheeled walker, and she will need for a lifetime. [email or web address] Not available 10/12/2024 14:19:37 Reason for Referral None Reported. 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 5 17:50:50 Type 2 diabetes mellitus 79694127 Active 2024 Keli merritt [facility] 5 17:50:21 Closed fracture of patella 14613849 Active 2024 Adrien Hartley MD [address] [place] [address], [phone] [place] [address], L[facility] 5 10:29:05 Bipolar disorder 52333001 Active 2016 Bipolar Disorder; 7 9:18AM by Jannette Nogueira CMT, Office Visit; Promoted; acuity set as *; Keli merritt [facility] 5 17:49:35 Benign essentia l hyperten dusty 3008091 Active 2016 Hypertens ion; 7 9:19AM by Jannette Nogueira CMT, Office Visit; Promoted; acuity set as *; Keli merritt [facility] 5 17:49:22 Anemia 362598170 Completed 201611/29/2024 Anemia; 7 9:18AM by Jannette Nogueira CMT, Office Visit; Promoted; acuity set as *; Keli Loving shaina [facility] 5 17:52:18 Fibromya lgia 473737989 Active 2016 Fibromyal echo; 7 9:18AM by Jannette Nogueira CMT, Office Visit; Promoted; acuity set as *; Keli Inder shaina [facility] 5 17:49:41 Osteoart hritis 291838451 Active 2016 Osteoarth ritis; 7 9:19AM by Jannette Nogueira CMT, Office Visit; Promoted; acuity set as *; Keli Inder shaina [facility] 5 15:04:58 Type 2 diabetes mellitus without complica tion 084456769 Completed 201611/29/2024 Diabetes Mellitus, Type II; 7 9:18AM by Jannette Nogueira CMT, Office Visit; Promoted; acuity set as *; Removal Reason: duplicate Keli Inder shaina [facility] 5 17:50:39 Hypercho lesterol emia 07644665 Active 2016 Hyperchol esterolem ia; 7 9:19AM by Jannette Nogueira CMT, Office Visit; Promoted; acuity set as *; Keli Loving shaina [facility] 5 17:50:02 Gastroes ophageal reflux disease 277801412 Active 2016 Gastroeso phageal Reflux Disease; 7 9:19AM by Jannette Nogueira CMT, Office Visit; Promoted; acuity set as *; Keli merritt [facility] 5 17:49:46 Problem Notes None recorded. Medical Equipment None Reported. Allergies Allergen ID Allergen Name Allergen Category Reaction Reaction Severity Criticality Documentation Date Start Date Code Code System Note Provider Name and Address Organization Details Recorded Time 35183 Victoza medicatio n abdominal pain Not available Not available 12/19/2022 00341 3 RxNorm React ion: Stoma ch cramp s. *INTO LERAN CE*; Comme nt: Recor ded 01/09 9:17A M by Sylvia adair CMT, Offic e Visit ; Promo teodora; Signi fican ce: *; Reaso n: Drug aller gy; ; Not Available [facility] 3 02:25:14 94585 morphine sulfate medicatio n dyspnea Not available Not available 12/19/2022 86458 RxNorm React ion: Short ness of breat h; Comme nt: Recor ded 01/09 9:16A M by Sylvia adair CMT, Offic e Visit ; Promo teodora; Signi ficearnestine ce: *; Reaso n: Drug aller gy; ; Not Available [facility] 3 02:25:14 41001 Cymbalta medicatio n swelling Not available Not available 12/19/2022 72735 4 RxNorm React ion: Swell ing; Comme nt: Recor ded 01/09 9:13A M by Sylvia adair CMT, Offic e Visit ; Promo teodora; Signi ficearnestine ce: *; Reaso n: Drug aller gy; ; Not Available [facility] 3 02:25:14 64841 meloxicam medicatio n nausea Not available Not available 12/19/2022 26237 RxNorm React ion: Nause a;*IN AMANDEEP ANCE* , Vomit ing;* INTOL ERANC E*; Comme nt: Recor ded 01/09 9:16A M by Sylvia adair CMT, Offic e Visit ; Promo teodora; Signi ficearnestine ce: *; Reaso n: Drug aller gy; ; [facility] 3 02:25:14 34726 Levaquin medicatio n muscle cramps Not available Not available 12/19/2022 31782 2 RxNorm React ion: Neck & Arm pain *INTO LERAN CE*; Comme nt: Recor ded 01/09 9:15A M by Sylvia adair CMT, Offic e Visit ; Promo teodora; Signi ficearnestine ce: *; Reaso n: Drug aller gy; ; Not Available [facility] 3 02:25:14 42640 Dilaudid medicatio n hallucina tions Not available Not available 12/19/2022 74329 3 RxNorm React ion: Hallu cinat ions. 'Make s me crazy ' *INTO LERAN CE*; Comme nt: Recor ded 01/09 9:14A M by Sylvia adair [facility], Offic e Visit ; Promo teodora; Signi ficearnestine ce: *; Reaso n: Drug aller gy; ; Not Available [facility] 3 02:25:14 44401 doxycycli ne hyclate medicatio n swelling Not available Not available 12/19/2022 44475 RxNorm React ion: Swell ing; Comme nt: Recor ded 01/09 9:14A M by Sylvia adair CMT, Offic e Visit ; Promo teodora; Signi rebeca ce: *; Reaso n: Drug aller gy; ; Not Available [facility] 3 02:25:14 20915 Xanax medicatio n chest pain Not available Not available 12/19/202290424 3 RxNorm React ion: Chest pains *INTO LERAN CE*; Comme nt: Recor ded 01/09 9:18A M by Sylvia adair CMT, Offic e Visit ; Promo teodora; Signi rebeca ce: *; Reaso n: Drug aller gy; ; Not Available [facility] 3 02:25:15 85348 Ceftin medicatio n rash Not available Not available 12/19/2022 79656 6 RxNorm React ion: Rash; Comme nt: Recor ded 01/09 9:12A M by Sylvia adair [facility], Offic e Visit ; Promo teodora; Signi ficearnestine ce: *; Reaso n: Drug aller gy; ; Not Available [facility] 3 02:25:15 89206 Levemir medicatio n Not available Not available Not available 12/19/2022 27235 0 RxNorm Comme nt: Recor ded 01/09 9:15A M by Sylvia adair, CMT, Offic e Visit ; Promo teodora; Signi fican ce: *; Reaso n: Drug aller gy; ; Not Available [facility] 3 02:25:15 11409 Macrobid medicatio n Not available Not available Not available 12/19/2022 10380 1 RxNorm Comme nt: Recor ded 01/09 9:15A M by Sylvia adair, CMT, Offic e Visit ; Promo teodora; Signi fican ce: *; Reaso n: Drug aller gy; ; Not Available [facility] 3 02:25:15 55939 Bactrim medicatio n Not available Not available Not available 12/19/2022 97202 9 RxNorm Comme nt: Recor ded 01/09 9:16A M by Sylvia adair, CMT, Offic e Visit ; Promo teodora; Signi fican ce: *; Reaso n: Drug aller gy; ; Not Available [facility] 3 02:25:15 94457 Lyrica medicatio n Not available Not available Not available 12/19/2022 07004 1 RxNorm Comme nt: Recor ded 01/09 9:15A M by Sylvia adair, [facility], Offic e Visit ; Promo teodora; Signi fican ce: *; Reaso n: Drug aller gy; ; Not Available [facility] 3 02:25:16 82396 Oxytrol medicatio n Not available Not available Not available 12/19/2022 69332 6 RxNorm Comme nt: Recor ded 01/09 9:16A M by Sylvia adair, CMT, Offic e Visit ; Promo teodora; Signi fican ce: *; Reaso n: Drug aller gy; ; Not Available [facility] 3 02:25:16 13950 Cipro medicatio n nausea Not available Not available 12/19/2022 66055 3 RxNorm React ion: Nause a;*IN AMANDEEP ANCE* ; Comme nt: Recor ded 01/09 9:13A M by Sylvia adair CMT, Offic e Visit ; Devon araiza; Addis jose ce: *; Reaso n: Drug aller gy; ; Not Available [facility] 3 02:25:16 Medications Name Sig Start Date Stop Date Status Note LastModified by Organization Details LastModified Time atorvasta tin 40 mg tablet TAKE 1 TABLET BY MOUTH AT BEDTIME active Not Available Not Available No t Available carvedilo l 12.5 mg tablet Take 1 tablet twice a day by oral route. 2024 active Not Available Not Available Not Avai lable torsemide 20 mg tablet TAKE 1 TABLET BY MOUTH TWICE DAILY active Not Available Not Available No t Available Claritin 10 mg tablet daily 10/24 completed 0; Recorded 01/10/20 9:32AM by Jannette Nogueira CMT, Office Visit; Not Available Not Available Not Available valsartan 80 mg tablet daily active 0; Recorded 01/10/20 9:30AM by Jannette Nogueira CMT, Office Visit; Not Available Not Available Not Available clopidogr el 75 mg tablet TAKE 1 TABLET BY MOUTH EVERY EVENING active Not Available Not Available No t Available ciproflox acin 250 mg tablet TAKE 1 TABLET BY MOUTH TWICE DAILY FOR 7 DAYS active Not Available Not Available No t Available amlodipin e 5 mg tablet TAKE 2 TABLETS BY MOUTH DAILY active Not Available Not Available No t Available ciproflox acin 500 mg tablet TAKE 1 TABLET BY MOUTH TWICE DAILY FOR 7 DAYS active Not Available Not Available No t Available hydrocodo ne 10 mg-acetam inophen 325 mg tablet TAKE 1 TABLET BY MOUTH EVERY 6 HOURS 11/15 completed Not Available Not Available Not Available omeprazol e 40 mg capsule,d elayed release two times daily active 0; Recorded 01/10/20 9:28AM by Jannette Nogueira CMT, Office Visit; Not Available Not Available Not Available tramadol 50 mg tablet Take 1 tablet every 4 hours by oral route as needed for 30 days. 10/24 completed Not Available Not Available Not Available isosorbid e mononitra te ER 120 mg tablet,ex tended release 24 hr TAKE 1 TABLET BY MOUTH DAILY AT NOON active Not Available Not Available No t Available Zofran 4 mg tablet as needed active 0; Recorded 01/10/20 17 9:29AM by Jannette Nogueira CMT, Office Visit; Not Available Not Available Not Available oxycodone -acetamin ophen 5 mg-325 mg tablet TAKE 1 TABLET BY MOUTH EVERY 8 HOURS NEEDED FOR PAIN 11/15 completed Not Available Not Available Not Available isosorbid e mononitra te ER 60 mg tablet,ex tended release 24 hr daily active 0; Recorded 01/10/20 17 9:31AM by Jannette Nogueira CMT, Office Visit; Not Available Not Available Not Available potassium chloride ER 8 mEq tablet,ex tended release Take 3 tablets every day by oral route. 2024 active Not Available Not Available Not Avai lable linezolid 600 mg tablet TAKE 1 TABLET BY MOUTH TWICE DAILY FOR 5 DAYS active Not Available Not Available No t Available amlodipin e 10 mg tablet TAKE 1 TABLET BY MOUTH DAILY active Not Available Not Available No t Available cephalexi n 500 mg capsule TAKE 1 CAPSULE BY MOUTH TWICE DAILY FOR 5 DAYS active Not Available Not Available No t Available esomepraz ole magnesium 40 mg capsule,d elayed release Take 1 capsule every day by oral route. 2024 active Not Available Not Available Not Avai lable glimepiri de 4 mg tablet daily 10/24 completed 0; Recorded 01/10/20 17 9:31AM by Jannette Nogueira CMT, Office Visit; Not Available Not Available Not Available valsartan 320 mg tablet TAKE 1 TABLET BY MOUTH EVERY EVENING active Not Available Not Available No t Available mupirocin 2 % topical ointment APPLY TOPICALL Y TO THE AFFECTED AREA TWICE DAILY active Not Available Not Available No t Available hydrocort isone 10 mg tablet TAKE 1 TABLET BY MOUTH FOUR TIMES DAILY active Not Available Not Available No t Available cefdinir 300 mg capsule TAKE 1 CAPSULE BY MOUTH DAILY FOR 7 DAYS active Not Available Not Available No t Available dicyclomi ne 10 mg capsule four times daily 10/24 completed 0; Recorded 01/10/20 17 9:30AM by Jannette Nogueira CMT, Office Visit; Not Available Not Available Not Available oxycodone 5 mg tablet TAKE 1 TABLET BY MOUTH EVERY 6 HOURS NEEDED FOR PAIN active Not Available Not Available No t Available BD Ultra-Fin e Mini Pen Needle 31 gauge x 3/16 USE WITH INSULIN FOUR TIMES DAILY active Not Available Not Available No t Available lactulose 10 gram/15 mL oral solution TAKE 15 ML BY MOUTH DAILY active Not Available Not Available No t Available risperido ne three times daily 10/24 completed 0; Recorded 01/10/20 17 9:29AM by Jannette Nogueira CMT, Office Visit; Not Available Not Available Not Available Celexa daily 10/24 completed 0; Recorded 01/10/20 17 9:30AM by Jannette Nogueira CMT, Office Visit; Not Available Not Available Not Available metoprolo l succinate daily active 0; Recorded 01/10/20 17 9:28AM by Jannette Nogueira CMT, Office Visit; Not Available Not Available Not Available aripipraz ole 2 mg tablet Take 1 tablet every day by oral route. active Not Available Not Available No t Available Januvia 50 mg tablet daily 10/24 completed 0; Recorded 01/10/20 17 9:29AM by Jannette Nogueira CMT, Office Visit; Not Available Not Available Not Available hydrochlo rothiazid e 12.5 mg tablet daily active 0; Recorded 01/10/20 17 9:31AM by Jannette Nogueira CMT, Office Visit; Not Available Not Available Not Available FeroSul 325 mg (65 mg iron) tablet TAKE 1 TABLET BY MOUTH DAILY active Not Available Not Available No t Available Humalog KwikPen (U-100) Insulin 100 unit/mL subcutane ous INJECT THREE TIMES DAILY AFTER MEALS PER SLIDING SCALE. MAX DAILY DOSE 100 UNITS. active Not Available Not Available No t Available Humalog KwikPen Insulin 20-30 UNITS TID active Not Available Not Available No t Available Tresiba FlexTouch U-200 insulin 200 unit/mL (3 mL) subcutane ous pen ADMINIST ER 64 UNITS UNDER THE SKIN DAILY active Not Available Not Available No t Available Tresiba FlexTouch U-100 insulin 100 unit/mL (3 mL) subcutane ous pen ADMINIST ER 64 UNITS UNDER THE SKIN DAILY active Not Available Not Available No t Available Tresiba FlexTouch U-100 25 UNITS BID active Not Available Not Available No t Available Vitals Date Recorded Heart rate Respiratory rate Body temperature Oxygen saturation Oxygen saturation in Arterial blood by Pulse oximetry Systolic And Diastolic Provider Name and Address Organization Details Last Updated DateTime 5 68 /min 98 /min 98.5 [degF] 95 % 95 % 140/70 mm[Hg] [facility] 5 17:52:07 Date Recorded Heart rate Respiratory rate Body temperature Oxygen saturation Oxygen saturation in Arterial blood by Pulse oximetry Systolic And Diastolic Provider Name and Address Organization Details Last Updated DateTime 5 70 /min 18 /min 98.6 [degF] 97 % 97 % 137/80 mm[Hg] [facility] 5 11:18:27 Date Recorded Heart rate Respiratory rate Body temperature Oxygen saturation Oxygen saturation in Arterial blood by Pulse oximetry Systolic And Diastolic Provider Name and Address Organization Details Last Updated DateTime 5 68 /min 22 /min 97.6 [degF] 95 % 95 % 128/76 mm[Hg] [facility] 5 14:10:44 Date Recorded Body weight Body mass index (BMI) Body height Body temperature Heart rate Oxygen saturation Oxygen saturation in Arterial blood by Pulse oximetry Systolic And Diastolic Provider Name and Address Organization Details Last Updated DateTime 5 63000.2 1 g 36.8 kg/m2 160.02 cm 97.4 [degF] 83 /min 96 % 96 % 150/76 mm[Hg] [facility] 5 17:38:39 Social History Question Answer Notes LastModified by [employer] Details LastModified Time Tobacco Smoking Status Never Smoker [facility] 10/24/2024 17:50:03 What Is Your Level Of Caffeine Consumption? Occasional Information not available 10/24/2024 What Was The Date Of Your Most Recent Tobacco Screening? 10/24/2024 [email or web address] Information not available 10/24/2024 Sex: Unknown Functional Status Question Answer Note LastModified by [employer] Details LastModified Time Do you use any illicit or recreational drugs? No [email or web address] Information not available 10/24/2024 What is your level of alcohol consumption? None [email or web address] Information not available 10/24/2024 Mental Status None recorded. Family History Nothing Reported. Medical History No medical history recorded. Gynecological HistoryNo gynecological history recorded. Obstetrics History GPAL:G 0 P 0 0 0 0 Immunizations Vaccine Type Date Status Note Provider Nam e and Address Organization Details Recorded Time pneumococcal polysaccharide PPV23 4 completed Not Available [facility] 10/24/2024 17:31:43 Past Encounters Encounter ID Performer Location Encounter Start Date Encounter Closed Date Diagnosis/Indication Diagnosis SNOMED-CT Code Diagnosis ICD10 Code Diagnosis Note [id number] Olman Ruvalcaba DO [facility] ([facility]) [address] [place] [address] 08/30/2024 14:47:29 09/04/2024 14:51:13 Benign essential hypertension 6443938 I10 Bipolar disorder 6042595 4 F31.9 Fibromyalgia 409058427 M 79.7 Hospital i npatient stay within past 30 days 7758532331 106 Z76.89 Cellulitis 340959526 L03 .90 Closed fra cture of left patella 7008620814 9608216 S82.012A Urinary tr act infectious disease 49815139 N39.0 Bacteremia 7530205 R78.8 1 [id number] Olman Ruvalcaba DO [facility]) [address] [place] [phone] 09/21/2024 08:04:46 09/24/2024 20:41:19 Type 2 diabetes mellitus without complication 677341984 Z79.4 Anemia 066482952 D64.9 Benign ess ential hypertension 7198735 I10 Bipolar disorder 7083674 4 F31.9 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 [id number] Olman Ruvalcaba DO [facility] ([facility]) [address] [place] [address] 10/12/2024 08:11:12 10/17/2024 09:54:09 Benign essential hypertension 3156166 I10 Bipolar disorder 3712883 4 F31.9 Fibromyalgia 563944521 M 79.7 Depressive disorder 3548 9007 F32.A Wapello's disease 715474 003 E27.1 Closed fra cture of patella 98119526 S82.002D [id number] Adrien Hartley MD [facility] ([facility]) [address] [place] [address] 10/24/2024 17:30:12 10/26/2024 16:49:53 Moderate major depression 397366 F32.[address] Wynn for mental health. Encouraged patient to make follow-up appointmen t to discuss options for treatment. Chronic pain syndrome 37 9373253 G89.4 Osteoarthritis 753049820 M19.90 Increase her oxycodone to every 4 hours temporaril y. Benign ess ential hypertension 9368960 I10 Patient is encouraged to monitor blood pressure as it was elevated today. Patient was instructed to do twice daily and to notify the clinic of those results in approximat corey 1 week. 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 Denson Bipolar disorder 3948871 4 F31.9 Continue follow-up with psychiatry Type 2 alex betes mellitus 16412283 E11.9 Encouraged patient to follow-up with Dr. Denson as she has been managing this chronic condition for this patient Closed fra cture of patella 11129771 S82.002D Continue physical therapy And home health. Continue follow-up with orthopedic s. She would benefit from continued home health benefits given limitation s in mobility. Health Concerns Section Related Observation LastModified by Organization Detai ls LastModified Time None Recorded Concern Status LastModified by Organization Details LastModified Time None Recorded Advance Directives Directive None Recorded Payers Insurance Date Sequence Insurance Name Policy Number Policy Dacosta Covered Member ID Dacosta Member ID Guarantor Name 10/24/2024 1 [place] Fabiola Berg [id number] Brandi Godwinrson 10/24/2024 1 [place] Brandi Mosley Morena [id number] Jesseniaolett Melany Morena 08/30/2024 1 *SELF PAY* vanessa Berg 10/24/2024 [place] - [facility] (MEDICARE) Brandi Godwinrson [id number] Dbt Melany Morena 09/20/2024 2 UNSPECIFIED REMIT PAYOR Brandi Berg Notes Date Note Type Note Provider Name and Address Organization Details Recorded Time 08/30/2024 text/html DiabetesReported bypatient.Duration:chr onic Control:usually well controlled Compliance:compliant with medications Olman Ruvalcaba DO [address] [place] [address], [phone], [facility] 09/03/2024 15:43:06 09/21/2024 text/html DiabetesReported bypatient.Duration:chr onic Control:usually well controlled Compliance:compliant with medications Olman Ruvalcaba DO [address] [place] [address], [phone], [facility] 09/24/2024 16:25:27 10/12/2024 text/html DiabetesReported bypatient.Duration:[facility] Control:usually well controlled Compliance:compliant with medications Visit for d/c. Planning to follow up with ID tomorrow after finishing IV abx. Olman Ruvalcaba DO [address] [place] [address], [phone], [facility] 10/13/2024 16:27:11 10/24/2024 text/html Annual WellnessReported bypatient.Diet and Nutrition:high caloric intake;high carbohydrate meals Fracture Risk:history of fractures Physical Activity:discussed exercise habits Additional Lifestyle Factors:no tobacco use; no alcohol intake; stopped drinking alcohol Depression Risk:no loss of interest in activities; no significant changes in weight; no sleep disturbances or insomnia; no agitation; no thoughts of suicide;feels sad, empty, or tearful;loss of energy;feelings of worthlessness or guilt;history of depression Hearing:no loss of hearing Vision:no vision problems This is an 79-year-old female comes in today to establish care. The patient was recently [facility]. The patient had a fall and fractured her patella. The patient had surgery. The patient has had increased pain because of this. The patient typically takes chronic oxycodone and states that this has not been sufficient to handle her increased pain from her surgery and injuries. Patient states that she is really struggling with her mood and depression. The patient does see behavioral health for these issues. 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 Patient states that she has not had follow-up with her specialist since her injury. Adrien Hartley MD [address] [place] [address], [phone], [facility] 10/27/2024 09:51:37 OBGyn Episode No OBEpisode recorded.
--- OUTSIDE RECORDS SUMMARY | 2024-12-01 09:28 | XMS_ITS | Encounter Summary ---
Author Organization [facility] Address [address] [place] [address] Care Team Providers Care Emotionally Impaired Teacher Name Role Phone Arabella Orta MD Primary Care Provider +1- [phone] Encounter Details Date Type Department Care Team (Latest Contact Info) Description 03/05/1999 Outpatient Historical [facility] Mario Martínez Jr., MD [address] [place] [address] Osteoarthrosis, unspecified whether generalized or localized, unspecified site (Primary Dx); Irritable bowel syndrome Social History Tobacco Use Types Packs/Day Years Used Date Smoking Tobacco: Never Assessed Comments Unknown Sex and Gender Information Value Date Recorded Sex Assigned at Not on file 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
--- OUTSIDE RECORDS SUMMARY | 2024-12-01 09:28 | XMS_ITS | Encounter Summary ---
Author Organization [employer] [facility] Address [address] [place] [address] Care Team Providers Care Egg Producer Name Role Phone Arabella Orta MD Primary Care Provider +1- [phone] Encounter Details Date Type Department Care Team (Latest Contact Info) Description 01/19/2002 Outpatient Historical [facility] Mraio Martínez Jr., MD [address] [place] [address] CHEST PAIN NOS (Primary Dx); DIABETES UNCOMPL ADULT-TYPE II (CMS/HCC); OSTEOARTHROS NOS-UNSPEC; AFTERCARE SHELTER USE MEDICATN Social History Tobacco Use Types Packs/Day Years Used Date Smoking Tobacco: Never Assessed Comments Unknown Sex and Gender Information Value Date Recorded Sex Assigned at Not on file Legal Sex 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 Gender Identity Not on file Sexual Orientation Not on file documented as of this encounter Plan of Treatment Not on file documented as of this encounter Visit Diagnoses Diagnosis Chest pain, unspecified- Primary Type II or unspecified type diabetes mellitus without mention of complication, not stated as uncontrolled Osteoarthrosis, unspecified whether generalized or localized, unspecified site Encounter for long-term (current) use of other medications documented in this encounter Care Teams Egg Producer Relationship Specialty Start Date End Date Arabella Orta MD [address] [place] [address] PCP - General Family Practice 03/03/12 documented as of this encounter
--- OUTSIDE RECORDS SUMMARY | 2024-12-01 09:28 | XMS_ITS | Encounter Summary ---
Author Organization [facility] Address [address] [place] [address] Care Team Providers Care Bloom Conveyor Operator Name Role Phone Arabella Orta MD Primary Care Provider +1- [phone] Encounter Details Date Type Department Care Team (Late st Contact Info) Description 12/10/2006 Outpatient [facility] [address] [place] [phone] Social History Tobacco Use Types Packs/Day Years Used Date Smoking Tobacco: Never Assessed Comments Unknown Sex and Gender Information Value Date Recorded Sex Assigned at Not on file Legal Sex Female 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
--- OUTSIDE RECORDS SUMMARY | 2024-12-01 09:28 | XMS_ITS | Encounter Summary ---
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) (Primary Dx); Disorders of porphyrin metabolism Social History Tobacco Use Types Packs/Day Years Used Date Smoking Tobacco: Never Assessed Comments Unknown Sex and Gender Information Value Date Recorded Sex Assigned at Not on file 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
--- OUTSIDE RECORDS SUMMARY | 2024-12-01 09:28 | XMS_ITS | Encounter Summary ---
Author Organization [employer] [facility] Address [address] [place] [address] Care Team Providers Care It Professional Name Role Phone Arabella Orta MD Primary Care Provider +1- [phone] Encounter Details Date Type Department Care Team (Latest Contact Info) Description 04/08/2000 Outpatient Historical [facility] Mario Martínez Jr., MD [address] [place] [address] Osteoarthrosis, unspecified whether generalized or localized, unspecified site (Primary Dx); Disorders of porphyrin metabolism Social History Tobacco Use Types Packs/Day Years Used Date Smoking Tobacco: Never Assessed Comments Unknown Sex and Gender Information Value Date Recorded Sex Assigned at Not on file Legal Sex Female 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
--- OUTSIDE RECORDS SUMMARY | 2024-12-01 09:28 | XMS_ITS | Encounter Summary ---
Author Organization [facility] Address [address] [place] [address] Care Team Providers Care Embedded Software Programmer Name Role Phone Arabella Orta MD Primary Care Provider +1- [phone] Encounter Details Date Type Department Care Team (Late st Contact Info) Description 07/18/2001 Outpatient Historical [facility] Feliz Kim MD [address] [phone] GASTRITIS NEC W HEMORRH (Primary Dx); MELENA, BLOOD IN STOOL; ABDOMINAL PAIN EPIGASTRIC; PERSN W FEARED COMPLAINT; ABN BLOOD CHEMISTRY NEC; HYPOTHYROIDISM NOS Social History Tobacco Use Types Packs/Day Years Used Date Smoking Tobacco: Never Assessed Comments Unknown Sex and Gender Information Value Date Recorded Sex Assigned at Not on file 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 Gender Identity Not on file Sexual Orientation Not on file documented as of this encounter Plan of Treatment Not on file documented as of this encounter Visit Diagnoses Diagnosis Other specified gastritis with hemorrhage- Primary Blood in stool Abdominal pain, epigastric Person with feared complaint in whom no diagnosis was made Other abnormal blood chemistry Unspecified hypothyroidism documented in this encounter Care Teams Embedded Software Programmer Relationship Specialty Start Date End Date Arabella Orta MD [address] [place] [address] PCP - General Family Practice 03/03/12 documented as of this encounter
--- OUTSIDE RECORDS SUMMARY | 2024-12-01 09:28 | XMS_ITS | Encounter Summary ---
Author Organization [facility] Address [address] [place] [address] Care Team Providers Care It Program Engagement Director Name Role Phone Arabella Orta MD Primary Care Provider +1- [phone] Encounter Details Date Type Department Care Team (Late st Contact Info) Description 08/15/2003 Outpatient Historical [facility] Imaging [facility] [address] [facility] [place] [address] Ridge Bergman, DO [address] [facility] [address] [place] [phone] Social History Tobacco Use Types Packs/Day Years Used Date Smoking Tobacco: Never Assessed Comments Unknown Sex and Gender Information Value Date Recorded Sex Assigned at Not on file Legal 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
--- OUTSIDE RECORDS SUMMARY | 2024-12-01 09:28 | XMS_ITS | Encounter Summary ---
Author Organization [employer] [facility] Address [address] [place] [address] Care Team Providers Care Sales Analyst Name Role Phone Arabella Orta MD Primary Care Provider +1- [phone] Encounter Details Date Type Department Care Team (Latest Contact Info) Description 02/26/1999 Outpatient Historical [facility] Mario Martínez Jr., MD [address] [place] [address] Abdominal pain, unspecified site (Primary Dx); Irritable bowel syndrome Social History Tobacco Use Types Packs/Day Years Used Date Smoking Tobacco: Never Assessed Comments Unknown Sex and Gender Information Value Date Recorded Sex Assigned at Not on file Legal Sex Female 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
--- OUTSIDE RECORDS SUMMARY | 2024-12-01 09:28 | XMS_ITS | Encounter Summary ---
Author Organization [employer] [facility] Address [address] [place] [address] Care Team Providers Care Dry Cleaning Manager Name Role Phone Arabella Orta MD Primary Care Provider +1- [phone] Encounter Details Date Type Department Care Team (Latest Contact Info) Description 10/06/1999 Outpatient Historical [facility] Mario Martínez Jr., MD [address] [place] [address] Osteoporosis, unspecified (Primary Dx); Other specified menopausal and postmenopausal disorder Social History Tobacco Use Types Packs/Day Years Used Date Smoking Tobacco: Never Assessed Comments Unknown Sex and Gender Information Value Date Recorded Sex Assigned at Not on file Legal Sex Female 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
--- OUTSIDE RECORDS SUMMARY | 2024-12-01 09:28 | XMS_ITS | Encounter Summary ---
Author Organization [employer] [facility] Address [address] [place] [address] Care Team Providers Care [employer] Scout Name Role Phone Arabella Orta MD Primary Care Provider +1- [phone] Encounter Details Date Type Department Care Team (Latest Contact Info) Description 01/04/2002 Outpatient Historical [facility] Mario Martínez Jr., MD [address] [place] [address] IRRITABLE COLON (Primary Dx); ATHEROSCLEROSIS NOS; OSTEOARTHROS NOS-UNSPEC; [facility]ET[facility]COMPL [facility] Social History Tobacco Use Types Packs/Day Years Used Date Smoking Tobacco: Never Assessed Comments Unknown Sex and Gender Information Value Date Recorded Sex Assigned at Not on file Legal Sex Female 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 Gender Identity Not on file Sexual Orientation Not on file documented as of this encounter Plan of Treatment Not on file documented as of this encounter Visit Diagnoses Diagnosis Irritable bowel syndrome- Primary Generalized and unspecified atherosclerosis Osteoarthrosis, unspecified whether generalized or localized, unspecified site Type II or unspecified type diabetes mellitus without mention of complication, not stated as uncontrolled documented in this encounter Care Teams [employer] Scout Relationship Specialty Start Date End Date Arabella Orta MD [address] [place] [address] PCP - General Family Practice 03/03/12 documented as of this encounter
--- OUTSIDE RECORDS SUMMARY | 2024-12-01 09:28 | XMS_ITS | Encounter Summary ---
Author Organization [facility] Address [address] [place] [address] Care Team Providers Care Foam Molder Name Role Phone Arabella Orta MD Primary Care Provider +1- [phone] Encounter Details Date Type Department Care Team (Late st Contact Info) Description 03/05/2006 Outpatient Historical [facility] [address] [place] [address] Mathew Sandoval MD NO ADDRESS ON FILE Abdominal Pain, Unspecified Site (Primary Dx) Social History Tobacco Use Types Packs/Day Years Used Date Smoking Tobacco: Never Assessed Comments Unknown Sex and Gender Information Value Date Recorded Sex Assigned at Not on file Legal Sex Female 3:46 AM CABLE TENDER Gender Identity Not on file Sexual Orientation Not on file documented as of this encounter Plan of Treatment Not on file documented as of this encounter Visit Diagnoses Diagnosis Abdominal pain, unspecified site- Primary documented in this encounter Care Teams Foam Molder Relationship Specialty Start Date End Date Arabella Orta MD [address] [place] [address] PCP - General Family Practice 03/03/12 documented as of this encounter
--- OUTSIDE RECORDS SUMMARY | 2024-12-01 09:28 | XMS_ITS | Patient Health Record ---
Author Organization [facility] Address [address] [place], [place] [address] Care Team Providers Care Cardiology Specialist Name Role Phone Marivel CARUSO, Arabella Primary Care Provider Daksha Guzman MD, Oleg Unavailable [phone] Horace Joya DO Unavailable Unavailable Allergies Allergen (clinical drug ingredient) Drug/Non Drug Allergy documented on EMR Reaction Allergy Type Onset Date Status Barbiturates barbiturates (uncoded) Unknown Allergy Active Barbiturates Barbiturates (uncoded) Abdominal pain Allergy Active Glucophage throat swells Drug Allergy Ac tive Levaquin N/A Drug Allergy Active sulfa abdominal pain/cramping Drug Allergy Active ciprofloxacin Cipro stomach upset Drug Allergy Active hydromorphone HYDROmorphone it makes me crazy Drug Allergy Active doxycycline doxycycline Unknown Drug Allergy Act bert cefuroxime Unknown Drug Allergy Active nitrofurantoin nitrofurantoin Unknown Drug Allergy Active amitriptyline amitriptyline Unknown Drug Allergy Active alprazolam ALPRAZolam Unknown Drug Allergy Activ e metoclopramide metoclopramide Unknown Drug Allergy Active morphine morphine respiratory distress Drug Allergy Active oxybutynin oxybutynin Unknown Drug Allergy Activ e metformin metFORMIN Unknown Drug Allergy Active levofloxacin levoFLOXacin Unknown Drug Allergy A ctive meloxicam meloxicam Unknown Drug Allergy Active duloxetine Cymbalta throat swells Drug Allergy Ac tive penicillin rash Drug Allergy Active insulin detemir Levemir Unknown Drug Allergy A ctive liraglutide Victoza Unknown Drug Allergy Activ e Reason For Referral No Information Medications Medication SIG (Take, Route, Frequency, Duration) Notes Start Date End Date Status lactulose 10 g/15 mL 15 mL orally once a day Active hydrocortisone 10 mg 1 tab(s) orally 4 times a day Active isosorbide mononitrate 120 mg 1 tab(s) orally once a day (in the morning) for 30 day(s) Active citalopram 40 mg 1 tab(s) orally once a day for 30 day(s) Active ClearLax - as directed orally once a day for 7 day(s) Active Colace 2-in-1 50 mg-8.6 mg 2 tab(s) orally once a day (at bedtime) Active dicyclomine 10 mg 2 cap(s) orally 4 times a day for 30 day(s) Active esomeprazole 40 mg 1 cap(s) orally once a day for 30 day(s) Active ferrous sulfate 325 mg 1 tab(s) orally o nce a day for 30 day(s) Active furosemide 20 mg 2 tab(s) orally once a day, as needed Active HumaLOG KwikPen 100 units/mL as directed subcutaneously 3 times a day Active acetaminophen-hydrocodo ne 325 mg-10 mg 1 tab orally Q4-6H prn pain (max 4/day; hold within 4H of planned sleep) for 30 day(s) Do not fill prior to 01/31/23. ICD-10: G89.29 01/19/2023 Active acetaminophen-hydrocodo ne 325 mg-10 mg 1 tab orally Q4-6H prn pain (max 4/day; hold within 4H of planned sleep) for 30 day(s) Do not fill prior to 03/02/23. ICD-10: G89.29 01/19/2023 Active Acetaminophen-Hydrocodo ne Bitartrate 325 mg-10 mg 1 tab orally Q4-6H prn pain (max 4/day; hold within 4H of planned sleep) for 30 day(s) Do not fill prior to 04/01/23. ICD-10: G89.29 01/19/2023 Active vitamin E 180 mg 1 cap(s) orally once a day Active atorvastatin 40 mg 1 tab(s) orally once a day for 30 day(s) Active Vitamin D3 25 mcg 1 cap(s) orally once a day for 30 day(s) Active AZO Urinary Pain Relief 95 mg 2 tab(s) orally 3 times a day (after meals) for 2 day(s) Active chlorthalidone 25 mg 1 tab(s) orally 2 times a day Active magnesium as directed Active methocarbamol 500 mg 1 tab(s) orally 2 times a day, as needed for pain Active ondansetron 4 mg 1 tab(s) orally ever y 6 hours, as needed for nausea and vomiting Active azithromycin 250 mg [address] day, then 1 tablet daily for 4 days Active Plavix 75 mg 1 tab(s) orally once a day for 30 day(s) Active potassium chloride 8 mEq 3 tab(s) orally once a day with Lasix Active Acidophilus - 2 tab(s) orally once a day for 30 day(s) Active Tresiba FlexTouch 200 units/mL as directed subcutaneously once a day Active albuterol 90 mcg/inh 2 puff(s) inhaled every 6 hours Active valsartan 320 mg 1 tab(s) orally once a day for 30 day(s) Active ARIPiprazole 2 mg 1 tab(s) orally once a day for 30 day(s) Active Vitamin C with Martina Hips 500 mg 1 tab(s) orally once a day for 30 day(s) Active Social History Tobacco Use: Social History Observation Description Date Details (start date - stop date) Never Smoker NA - NA alcohol Question Answer Notes Did you have a drink containing alcohol in the p ast year? 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) use of opiate analgesic (Z79.891) Active confirmed Problem Obstructive sleep apnea syndrome (disorder) (98108582) Obstructive sleep apnea (adult) (pediatric) (G47.33) Active confirmed Problem Chronic pain (21330630) Other chronic pain (G89.29) Active confirmed Problem Radiculopathy due to lumbar intervertebral disc disorder (663336281485305) Intervertebral disc disorders with radiculopathy, lumbar region (M51.16) Active confirmed Problem Displacement of lumbar intervertebral disc without myelopathy (15090314) Other intervertebral disc displacement, lumbosacral region (M51.27) Active confirmed Problem Neurogenic claudication (487358404) Spinal stenosis, lumbar region with neurogenic claudication (M48.062) Active confirmed Problem Low back pain (finding) (440094617) Vertebrogenic low back pain (M54.51) Active confirmed Plan Of Treatment No Information Insurance Providers Payer Name Payer Address Payer Phone Subscriber Number Group Number Insured Name Patient Relationship to Insured Coverage Start Date Coverage End Date [employer] Medicare Part B Claims Department [address] [address] [place] [address] [id number] Brandi Berg Self - patient is the insured [employer] [facility] Claims Dept [address] [place] [address] [id number] Brandi Berg Self - patient is the insured Medical (General) History Medical History History ICD Code Chronic pain Neck pain Cervical spondylosis and disc diseae Low back pain Lumbar spondylosis and disc disease Lumbar stenosis with neurogenic claudica tion Hip pain (history of injections) Bilateral knee pain (history of injectio ns) Hypertension Diabetes mellitus Hypothyroidism Pelvic floor disorder Acute intermittent porphyria Depression Acute cystitis Anemia, chronic disease 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 Benign essential hypertension Benign neoplasm of cerebral meninges Bipolar II disorder Dyslipidemia Gross hematuria Heart palpitations Psychiatric care Sleep apnea Pneumonia 12/2022 Surgical History Surgery Date(Month/Year) Appendectomy, 11/24/61 Hysterectomy, performed at [facility] by Dr.Woo mittal, 1987 Cholecystectomy Knee surgery, right Nasal growth removed Carpal tunnel, bilateral, performed at [facility] 2011 Bilateral cataract removal Bladder repair and adhesions removed Hernia repair Hip replacement, bilateral, performed at [facility], 02/2021, 09/2021 Placement of stent, coronary artery, per formed at [facility], 2021 Lumbar surgery (ruptured disc), performe d by Dr. Horace Joya at [facility], 01/13/23 Hospitalization History Reason Date(Month/Year) Multiple visits for acute in termittent porphyria, treated at [facility] in [place], [place]
--- OUTSIDE RECORDS SUMMARY | 2024-12-01 09:28 | XMS_ITS | Encounter Summary ---
Author Organization [facility] Address [address] 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
--- OUTSIDE RECORDS SUMMARY | 2024-12-01 09:28 | XMS_ITS | Encounter Summary ---
Author Organization [facility] Address [address] [place] [address] Care Team Providers Care Coordinate Measuring Machine Operator Name Role Phone Arabella Orta MD Primary Care Provider +1- [phone] Encounter Details Date Type Department Care Team (Latest Contact Info) Description 04/01/2006 Outpatient Historical [facility] Podiat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 Gender Identity Not on file Sexual Orientation Not on file documented as of this encounter Plan of Treatment Not on file documented as of this encounter Visit Diagnoses Diagnosis Hallux valgus- Primary Hallux valgus (acquired) Other hammer toe (acquired) Type II or 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
--- OUTSIDE RECORDS SUMMARY | 2024-12-01 09:28 | XMS_ITS | Encounter Summary ---
Author Organization [employer] [facility] Address [address] [place] [address] Care Team Providers Care Director Biologics Name Role Phone Arabella Orta MD Primary Care Provider +1- [phone] Encounter Details Date Type Department Care Team (Latest Contact Info) Description 11/13/1999 Outpatient Historical [facility] Mario Martínez Jr., MD [address] [place] [address] Osteoarthrosis, unspecified whether generalized or localized, unspecified site (Primary Dx) Social History Tobacco Use Types Packs/Day Years Used Date Smoking Tobacco: Never Assessed Comments Unknown Sex and Gender Information Value Date Recorded Sex Assigned at Not on file Legal Sex Female 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
--- OUTSIDE RECORDS SUMMARY | 2024-12-01 09:28 | XMS_ITS | Encounter Summary ---
Author Organization [email or web address] [facility] Address [address] [place] [address] Care Team Providers Care Senior Radiation Therapist Name Role Phone Arabella Orta MD Primary Care Provider +1- [phone] Encounter Details Date Type Department Care Team (Latest Contact Info) Description 07/21/1999 Outpatient Historical [facility] Mario Martínez Jr., MD [address] [place] [address] Asymptomatic varicose veins (Primary Dx) Social History Tobacco Use Types Packs/Day Years Used Date Smoking Tobacco: Never Assessed Comments Unknown Sex and Gender Information Value Date Recorded Sex Assigned at Not on file Legal Sex Female 3:46 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
--- OUTSIDE RECORDS SUMMARY | 2024-12-01 09:28 | XMS_ITS | Encounter Summary ---
Author Organization [facility] Address [address] [place] [address] Care Team Providers Care Yarn Rewinder Name Role Phone Arabella Orta MD Primary Care Provider +1- [phone] Encounter Details Date Type Department Care Team (Latest Contact Info) Description 03/05/2006 Outpatient Historical [facility] [address] [place] [address] Mathew Sandoval MD NO ADDRESS ON FILE Acquired Absence of Organ, Genital Organs (Primary Dx) Social History Tobacco Use Types Packs/Day Years Used Date Smoking Tobacco: Never Assessed Comments Unknown Sex and Gender Information Value Date Recorded Sex Assigned at Not on file Legal Sex Female 3:46 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 Gender Identity Not on file Sexual Orientation Not on file documented as of this encounter Plan of Treatment Not on file documented as of this encounter Procedures Procedure Name Priority Date/Time Associated Diagnosis Comments POC CREATININE Routine 03/05/2006 1:30 PM CDT documented in this encounter Results * (ABNORMAL) POC CREATININE (03/05/2006 1:30 PM CDT) CREATININE POC 0.6(L) 0.7 - 1.2 mg/dL INTERFACE SYSTEM 03/05/2006 1:30 PM CDT us Mathew Sandoval MD POINT OF CARE TESTING Shital munguia Result INTERFACE SYSTEM Refer to clinic/hospital department documented in this encounter Visit Diagnoses Diagnosis Acquired absence of organ, genital organs- Primary documented in this encounter Care Teams Yarn Rewinder Relationship Specialty Start Date End Date Arabella Orta MD [address] [place] [address] PCP - General Family Practice 03/03/12 documented as of this encounter
--- OUTSIDE RECORDS SUMMARY | 2024-12-01 09:28 | XMS_ITS | Encounter Summary ---
Author Organization [employer] [facility] Address [address] [place] [address] Care Team Providers Care Looseleaf Binder Coverer Name Role Phone Arabella Orta MD Primary Care Provider +1- [phone] Encounter Details Date Type Department Care Team (Latest Contact Info) Description 02/14/1999 Outpatient Historical [facility] Mario Martínez Jr., MD [address] [place] [address] Cystitis, unspecified (Primary Dx); Disorders of porphyrin metabolism; Diverticulitis of colon Social History Tobacco Use Types Packs/Day Years Used Date Smoking Tobacco: Never Assessed Comments Unknown Sex and Gender Information Value Date Recorded Sex Assigned at Not on file Legal Sex Female 3:46 AM POND SCALER Gender Identity Not on file Sexual Orientation Not on file documented as of this encounter Plan of Treatment Not on file documented as of this encounter Visit Diagnoses Diagnosis Cystitis, unspecified- Primary Disorders of porphyrin metabolism Diverticulitis of colon Diverticulitis of colon (without mention of hemorrhage) documented in this encounter Care Teams Looseleaf Binder Coverer Relationship Specialty Start Date End Date Arabella Orta MD [address] [place] [address] PCP - General Family Practice 03/03/12 documented as of this encounter
--- OUTSIDE RECORDS SUMMARY | 2024-12-01 09:28 | XMS_ITS | Encounter Summary ---
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); Hallux Valgus; Other Hammer Toe (Acquired) Social History Tobacco Use Types Packs/Day Years Used Date Smoking Tobacco: Never Assessed Comments Unknown Sex and Gender Information Value Date Recorded Sex Assigned at Not on file Legal Sex Female 3:46 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 Gender Identity Not on file Sexual Orientation Not on file documented as of this encounter Plan of Treatment Not on file documented as of this encounter Visit Diagnoses Diagnosis Type II or unspecified type diabetes mellitus with neurological manifestations, not stated as uncontrolled(250.60) ([facility]/HCC)- Primary Type II or unspecified type diabetes mellitus with neurological manifestations, not stated as uncontrolled Hallux valgus Hallux valgus (acquired) Other hammer toe (acquired) documented in this encounter Care Teams Drawing Hand Relationship Specialty Start Date End Date Arabella Orta MD [address] [place] [address] PCP - General Family Practice 03/03/12 documented as of this encounter
--- OUTSIDE RECORDS SUMMARY | 2024-12-01 09:29 | XMS_ITS | Encounter Summary ---
Author Organization [facility] Address [address] [place] [address] Care Team Providers Care Numberer And Wirer Name Role Phone Arabella Orta MD Primary Care Provider +1- [phone] Encounter Details Date Type Department Care Team (Latest Contact Info) Description 11/15/2000 Outpatient Historical [facility] Mario Martínez Jr., MD [address] [place] [address] Abdominal pain, unspecified site (Primary Dx); Unspecified essential hypertension; Irritable bowel syndrome Social History Tobacco Use Types Packs/Day Years Used Date Smoking Tobacco: Never Assessed Comments Unknown Sex and Gender Information Value Date Recorded Sex Assigned at Not on file Legal Sex Female 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
--- OUTSIDE RECORDS SUMMARY | 2024-12-01 09:29 | XMS_ITS | Encounter Summary ---
Author Organization [employer] [facility] Address [address] [place] [address] Care Team Providers Care Doll Wig Hackler Name Role Phone Arabella Orta MD Primary Care Provider +1- [phone] Encounter Details Date Type Department Care Team (Latest Contact Info) Description 06/07/2000 Outpatient Historical [facility] Mario Martínez Jr., MD [address] [place] [address] Impacted cerumen (Primary Dx); Acute sinusitis, unspecified; Generalized anxiety disorder Social History Tobacco Use Types Packs/Day Years Used Date Smoking Tobacco: Never Assessed Comments Unknown Sex and Gender Information Value Date Recorded Sex Assigned at Not on file Legal Sex Female 3:46 AM HAND POLISHER Gender Identity Not on file Sexual Orientation Not on file documented as of this encounter Plan of Treatment Not on file documented as of this encounter Visit Diagnoses Diagnosis Impacted cerumen- Primary Acute sinusitis, unspecified Generalized anxiety disorder documented in this encounter Care Teams Doll Wig Hackler Relationship Specialty Start Date End Date Arabella Orta MD [address] [place] [address] PCP - General Family Practice 03/03/12 documented as of this encounter
--- OUTSIDE RECORDS SUMMARY | 2024-12-01 09:29 | XMS_ITS | Encounter Summary ---
Author Organization [employer] [facility] Address [address] [place] [address] Care Team Providers Care Group Account Director Name Role Phone Arabella Orta MD Primary Care Provider +1- [phone] Encounter Details Date Type Department Care Team (Latest Contact Info) Description 10/15/2000 Outpatient Historical [facility] Ethan Dorsey NO ADDRESS ON FILE Abdominal pain, unspecified site (Primary Dx); Myalgia and myositis, unspecified Social History Tobacco Use Types Packs/Day Years Used Date Smoking Tobacco: Never Assessed Comments Unknown Sex and Gender Information Value Date Recorded Sex Assigned at Not on file Legal Sex Female 3:46 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
--- OUTSIDE RECORDS SUMMARY | 2024-12-01 09:29 | XMS_ITS | Encounter Summary ---
Author Organization [facility] Address [address] [place] [address] Care Team Providers Care Mock Up Builder Name Role Phone Arabella Orta MD Primary Care Provider +1- [phone] Encounter Details Date Type Department Care Team (Latest Contact Info) Description 06/23/2000 Outpatient Historical [facility] Mario Martínez Jr., MD [address] [place] [address] Irritable bowel syndrome (Primary Dx); Unspecified hereditary and idiopathic peripheral neuropathy; Anxiety state, unspecified Social History Tobacco Use Types Packs/Day Years Used Date Smoking Tobacco: Never Assessed Comments Unknown Sex and Gender Information Value Date Recorded Sex Assigned at Not on file Legal Sex Female 3:46 AM 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
--- OUTSIDE RECORDS SUMMARY | 2024-12-01 09:29 | XMS_ITS | Encounter Summary ---
Author Organization [employer] [facility] Address [address] [place] [address] Care Team Providers Care Rod Drawer Name Role Phone Arabella Orta MD Primary Care Provider +1- [phone] Encounter Details Date Type Department Care Team (Latest Contact Info) Description 11/01/2000 Outpatient Historical [facility] Mario Martínez Jr., MD [address] [place] [address] Hematuria (Primary Dx); Abdominal pain, unspecified site; Irritable bowel syndrome Social History Tobacco Use Types Packs/Day Years Used Date Smoking Tobacco: Never Assessed Comments Unknown Sex and Gender Information Value Date Recorded Sex Assigned at Not on file Legal Sex Female 3:46 AM CLOTH CHECKER Gender Identity Not on file Sexual Orientation Not on file documented as of this encounter Plan of Treatment Not on file documented as of this encounter Visit Diagnoses Diagnosis Hematuria- Primary Abdominal pain, unspecified site Irritable bowel syndrome documented in this encounter Care Teams Rod Drawer Relationship Specialty Start Date End Date Arabella Orta MD [address] [place] [address] PCP - General Family Practice 03/03/12 documented as of this encounter
--- OUTSIDE RECORDS SUMMARY | 2024-12-01 09:29 | XMS_ITS | Encounter Summary ---
Author Organization [employer] [facility] Address [address] [place] [address] Care Team Providers Care Safety Professional Name Role Phone Arabella Orta MD Primary Care Provider +1- [phone] Encounter Details Date Type Department Care Team (Latest Contact Info) Description 06/03/2000 Outpatient Historical [facility] Mario Martínez Jr., MD [address] [place] [address] Intermediate coronary syndrome (CMS/HCC) (Primary Dx) Social History Tobacco Use Types Packs/Day Years Used Date Smoking Tobacco: Never Assessed Comments Unknown Sex and Gender Information Value Date Recorded Sex Assigned at Not on file Legal Sex Female 3:46 AM SAW 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
--- OUTSIDE RECORDS SUMMARY | 2024-12-01 09:29 | XMS_ITS | Encounter Summary ---
Author Organization [employer] [facility] Address [address] [place] [address] Care Team Providers Care Seed Technician Name Role Phone Arabella Orta MD Primary Care Provider +1- [phone] Encounter Details Date Type Department Care Team (Latest Contact Info) Description 08/23/2000 Outpatient Historical [facility] Mario Martínez Jr., MD [address] [place] [address] Other B-complex deficiencies (Primary Dx); Obesity, unspecified Social History Tobacco Use Types Packs/Day Years Used Date Smoking Tobacco: Never Assessed Comments Unknown Sex and Gender Information Value Date Recorded Sex Assigned at Not on file Legal Sex Female 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
--- OUTSIDE RECORDS SUMMARY | 2024-12-01 09:29 | XMS_ITS | Clinical Summary ---
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 05/19/2013 Overview (09/19/2020): Very small lesion, 1-2 mm History of diabetes mellitus 03/17/2013 Overview (09/19/2020): States diet controlled Exostosis, plantar-medial hallux, R. 03/10/2012 Skin lesion, medial hallux-R. 03/10/2012 Tailors bunion, symptomatic, L. 03/03/2012 Plantar fasciitis, WOJCIECH. 03/03/2012 Epidermal inclusion cyst, pl michael medial IPJ hallux region-R. 03/03/2012 Calcaneal spur, inferior and posterior, WOJCIECH. 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
[2024-12-01 09:35] LABS: Hematocrit 40.5 % (36-47); Hemoglobin 12.80 g/dL (11.27-16.99); Mean Corpuscular HGB Conc 31.6 g/dL (30-55); Mean Corpuscular Hemoglobin 28.6 pg (27-33); Mean Corpuscular Volume 90.4 fl (85-98); Nucleated Red Blood Cells % 0 %; Platelet Count 211 10^3/cmm (157-399); Red Blood Count 4.48 10^6/uL (3.85-5.65); White Blood Count 6.23 10^3/uL (3.29-11.43)
[2024-12-01 09:52] LABS: Troponin(5th) Baseline 22 ng/L (0-10)
[2024-12-01 10:03] LABS: Alanine Aminotransferase 20 U/L (0-33); Albumin Level 3.7 g/dL (3.5-5.2); Alkaline Phosphatase 201 U/L (35-105); Anion Gap 18.7 (5-19); Aspartate Amino Transferase 18 U/L (0-32); Blood Urea Nitrogen 16 mg/dL (8-23); Calcium 10.0 mg/dL (8.5-10.5); Carbon Dioxide 24 mmol/L (22-29); Chloride 100 mmol/L (98-107); Creatinine Clr Calc Pharmacy 70.8153; Globulin 2.9 g/dL (1.3-4.6); Glucose 290 mg/dL (65-115); Osmolality Calculated 298 mOsm/kg (285-295); Potassium 4.7 mmol/L (3.5-5.1); Sodium 138 mmol/L (136-145); Total Protein 6.6 g/dL (6.6-8.7)
--- NOTE | 2024-12-01 11:18 | ECG_ITS ---
[facility] 2024[facility]01 Pat Name: Brandi Berg Department: Room: Gender: Female Layboy Operator: : 1945 Requested By: Brittani Chawla Order Number: [id number] Gamal MD: Gilma Cai M.D. Measurements Intervals [place] Rate: 80 P: 33 NV: 144 QRS: -9 QRSD: 93 T: 67 QT: 343 QTc: 396 Interpretive Statements SINUS RHYTHM NONSPECIFIC T-WAVE ABNORMALITY Compared to ECG 12/01/2024 09:22:23 No significant changes Electronically Signed On 12-01-2024 15:28:11 CDT by Gilma Cai M.D. [email or web address]
[2024-12-01 11:53] LABS: Troponin 5 2HR 22.66 ng/L (0-10); Troponin 5 2HR Delta 0.66 ABS# (0-10)
--- NOTE | 2024-12-01 12:20 | DCPLANNER ---
scheduled heart care follow up per Brittani 12/05 @ 1300
== END 2024-12-01 13:06 | disposition home or self-care (01) ==
PROVIDERS: Emergency Provider Physician Assistant; PCP Family Medicine
DX: R07.9 Chest pain, unspecified (principal); I25.10 Atherosclerotic heart disease of native coronary artery without angina pectoris; E78.5 Hyperlipidemia, unspecified; I10 Essential (primary) hypertension; E66.01 Morbid (severe) obesity due to excess calories; Z68.42 Body mass index [BMI] 45.0-49.9, adult; Z95.5 Presence of coronary angioplasty implant and graft; Z79.4 Long term (current) use of insulin; Z79.899 Other long term (current) drug therapy; Z88.5 Allergy status to narcotic agent; Z88.0 Allergy status to penicillin; Z88.8 Allergy status to other drugs, medicaments and biological substances
CPT/HCPCS: 36415; 71045; 80053; 84484; 85025; 93005; 99285

== ENCOUNTER → 2024-12-05 14:02 | Outpatient (BNVA) | payer MEDICARE, OTHER, SELFPAY | PROVIDERS: PCP Family Medicine; Visit Provider Nurse Practitioner Family | DX: I25.10 Atherosclerotic heart disease of native coronary artery without angina pectoris (principal); Z09 Encounter for follow-up examination after completed treatment for conditions other than malignant neoplasm; R06.09 Other forms of dyspnea; I10 Essential (primary) hypertension; I73.9 Peripheral vascular disease, unspecified; Z95.5 Presence of coronary angioplasty implant and graft | CPT/HCPCS: 99214 ==

== ENCOUNTER → 2025-01-09 15:17 | Outpatient (BNVA) | payer MEDICARE, OTHER, SELFPAY | PROVIDERS: PCP Family Medicine; Visit Provider Orthopaedic Surgery | DX: M51.17 Intervertebral disc disorders with radiculopathy, lumbosacral region (principal); Z98.890 Other specified postprocedural states | CPT/HCPCS: 72110; 73560; 73562; 99213 ==

== ENCOUNTER 2025-01-12 12:23 | Outpatient (CLI) | payer MEDICARE, OTHER, SELFPAY ==
[2025-01-12 12:47] LABS: Glucose Urine UA 3+ (Normal); Nitrate Urine Negative (Negative); Specific Gravity, Urine 1.021 (1.005-1.030)
== END 2025-01-12 12:24 | disposition home or self-care (01) ==
LOC: LAB 12:25
PROVIDERS: Family Provider Family Medicine; PCP Family Medicine; Visit Provider Internal Medicine
DX: R30.9 Painful micturition, unspecified (principal)
CPT/HCPCS: 81001; 87086

== ENCOUNTER → 2025-02-19 10:29 | Outpatient (BNVA) | payer MEDICARE, OTHER, SELFPAY | PROVIDERS: Family Provider Family Medicine; PCP Family Medicine; Visit Provider Internal Medicine | DX: E11.9 Type 2 diabetes mellitus without complications (principal); K11.7 Disturbances of salivary secretion; E86.0 Dehydration; E78.5 Hyperlipidemia, unspecified; R79.89 Other specified abnormal findings of blood chemistry | CPT/HCPCS: 99214 ==

== ENCOUNTER → 2025-02-20 13:01 | Outpatient (BNVA) | payer MEDICARE, OTHER, SELFPAY | PROVIDERS: PCP Family Medicine; Visit Provider Orthopaedic Surgery | DX: Z47.89 Encounter for other orthopedic aftercare (principal); L60.3 Nail dystrophy; E11.42 Type 2 diabetes mellitus with diabetic polyneuropathy; E11.649 Type 2 diabetes mellitus with hypoglycemia without coma; I10 Essential (primary) hypertension; E11.8 Type 2 diabetes mellitus with unspecified complications; I73.9 Peripheral vascular disease, unspecified | CPT/HCPCS: 11721; 36415; 80053; 80061; 82044; 83036; 99213 ==

== ENCOUNTER 2025-04-13 20:24 | Emergency (ER) | payer MEDICARE, OTHER, SELFPAY ==
--- OUTSIDE RECORDS SUMMARY | 2025-04-13 20:28 | XMS_ITS | Encounter Summary ---
Author Organization [employer] [facility] Address [address] [place] [address] Care Team Providers Care Concreter Name Role Phone Arabella Orta MD Primary Care Provider +1- [phone] Encounter Details Date Type Department Care Team (Latest Contact Info) Description 01/21/2001 Outpatient Historical [facility] Mario Martínez Jr., MD [address] [place] [address] Unspecified essential hypertension (Primary Dx); Unspecified hypothyroidism Social History Tobacco Use Types Packs/Day Years Used Date Smoking Tobacco: Never Assessed Comments Unknown Sex and Gender Information Value Date Recorded Sex Assigned at Not on file Legal Sex Female 3:46 AM INCIDENT RESPONSE 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
--- OUTSIDE RECORDS SUMMARY | 2025-04-13 20:28 | XMS_ITS | Encounter Summary ---
Author Organization [facility] Address [address] [place] [address] Care Team Providers Care Kitchen And Bath Designer Name Role Phone Arabella Orta MD Primary Care Provider +1- [phone] Encounter Details Date Type Department Care Team (Late st Contact Info) Description 11/13/2008 Ancillary Orders [facility] Orthoped[facility] [phone] Parveen Herrera MD NO ADDRESS ON FILE Knee Pain Social History Tobacco Use Types Packs/Day Years Used Date Smoking Tobacco: Never Alcohol Use Standard Drinks/Week Comments No 0 (1 standard drink = 0.6 oz pur e alcohol) Comments No Sex and Gender Information Value Date Recorded Sex Assigned at Not on file Legal Sex Female 3:46 AM PROTOTYPE SPECIAL BUILD Gender Identity Not on file Sexual Orientation [...] leg documented in this encounter Care Teams Kitchen And Bath Designer Relationship Specialty Start Date End Date Arabella Orta MD [address] [place] [address] PCP - General Family Practice 03/03/12 documented as of this encounter
--- OUTSIDE RECORDS SUMMARY | 2025-04-13 20:28 | XMS_ITS | Encounter Summary ---
Author Organization [facility] Address [address] [place] [address] Care Team Providers Care Child Care Associate Teacher Name Role Phone Arabella Orta MD Primary Care Provider +1- [phone] Encounter Details Date Type Department Care Team (Latest Contact Info) Description 08/08/1999 Outpatient Historical [facility] Mario Martínez Jr., MD [address] [place] [address] Osteoarthrosis, unspecified whether generalized or localized, unspecified site (Primary Dx); Peripheral vascular disease, unspecified; Lipoma of unspecified site Social History Tobacco Use Types Packs/Day Years Used Date Smoking Tobacco: Never Assessed Comments Unknown Sex and Gender Information Value Date Recorded Sex Assigned at Not on file Legal Sex Female 3:46 AM WALL WASHER Gender Identity Not on file Sexual Orientation Not on file documented as of this encounter Plan of Treatment Not on file documented as of this encounter Visit Diagnoses Diagnosis Osteoarthrosis, unspecified whether generalized or localized, unspecified site- Primary Peripheral vascular disease, unspecified Lipoma of unspecified site documented in this encounter Care Teams Child Care Associate Teacher Relationship Specialty Start Date End Date Arabella Orta MD [address] [place] [address] PCP - General Family Practice 03/03/12 documented as of this encounter
--- OUTSIDE RECORDS SUMMARY | 2025-04-13 20:28 | XMS_ITS | Encounter Summary ---
Author Organization [employer] [facility] Address [address] [place] [address] Care Team Providers Care Administrative Program Specialist Name Role Phone Arabella Orta MD Primary Care Provider +1- [phone] Encounter Details Date Type Department Care Team (Latest Contact Info) Description 03/21/2001 Outpatient Historical [facility] Mario Martínez Jr., MD [address] [place] [address] OSTEOPOROSIS NOS (Primary Dx); OSTEOARTHROS NOS-UNSPEC Social History Tobacco Use Types Packs/Day Years Used Date Smoking Tobacco: Never Assessed Comments Unknown Sex and Gender Information Value Date Recorded Sex Assigned at Not on file Legal Sex Female 3:46 AM FRUIT SHIPPER Gender Identity Not on file Sexual Orientation Not on file documented as of this encounter Plan of Treatment Not on file documented as of this encounter Visit Diagnoses Diagnosis Osteoporosis, unspecified- Primary Osteoarthrosis, unspecified whether generalized or localized, unspecified site documented in this encounter Care Teams Administrative Program Specialist Relationship Specialty Start Date End Date Arabella Orta MD [address] [place] [address] PCP - General Family Practice 03/03/12 documented as of this encounter
--- OUTSIDE RECORDS SUMMARY | 2025-04-13 20:28 | XMS_ITS | Encounter Summary ---
Author Organization [facility] Address [address] [place] [address] Care Team Providers Care Oil Expeller Operator Name Role Phone Arabella Orta MD Primary Care Provider +1- [phone] Encounter Details Date Type Department Care Team (Latest Contact Info) Description 07/02/1999 Outpatient Historical [facility] Mario Martínez Jr., MD [address] [place] [address] Pain in limb (Primary Dx); Myalgia and myositis, unspecified; Headache(784.0) Social History Tobacco Use Types Packs/Day Years Used Date Smoking Tobacco: Never Assessed Comments Unknown Sex and Gender Information Value Date Recorded Sex Assigned at Not on file Legal Sex Female 3:46 AM COMBAT CONTROL Gender Identity Not on file Sexual Orientation Not on file documented as of this encounter Plan of Treatment Not on file documented as of this encounter Visit Diagnoses Diagnosis Pain in limb- Primary Pain in soft tissues of limb Myalgia and myositis, unspecified Mylagia and myositis, unspecified Headache(784.0) Headache documented in this encounter Care Teams Oil Expeller Operator Relationship Specialty Start Date End Date Arabella Orta MD [address] [place] [address] PCP - General Family Practice 03/03/12 documented as of this encounter
--- OUTSIDE RECORDS SUMMARY | 2025-04-13 20:28 | XMS_ITS | Encounter Summary ---
Author Organization [employer] [facility] Address [address] [place] [address] Care Team Providers Care Narcotics Agent Name Role Phone Arabella Orta MD Primary Care Provider +1- [phone] Encounter Details Date Type Department Care Team (Latest Contact Info) Description 06/22/2001 Outpatient Historical [facility] GENERAL SURGERY JudyFeliz MD [address] [address] SURGERY FOLLOWUP, UNSPEC (Primary Dx) Social History Tobacco Use Types Packs/Day Years Used Date Smoking Tobacco: Never Assessed Comments Unknown Sex and Gender Information Value Date Recorded Sex Assigned at Not on file Legal 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
--- OUTSIDE RECORDS SUMMARY | 2025-04-13 20:28 | XMS_ITS | Encounter Summary ---
Author Organization [facility] Address [address] [place] [address] Care Team Providers Care Regulatory Analyst Name Role Phone Arabella Orta MD Primary Care Provider +1- [phone] Encounter Details Date Type Department Care Team (Late st Contact Info) Description 11/26/2004 Outpatient Historical 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
--- OUTSIDE RECORDS SUMMARY | 2025-04-13 20:28 | XMS_ITS | Encounter Summary ---
Author Organization [employer] [facility] Address [address] [place] [address] Care Team Providers Care Commercial Pilot Name Role Phone Arabella Orta MD Primary Care Provider +1- [phone] Encounter Details Date Type Department Care Team (Latest Contact Info) Description 12/15/2000 Outpatient Historical [facility] Mario Martínez Jr., MD [address] [place] [address] Osteoarthrosis, unspecified whether generalized or localized, other specified sites (Primary Dx); Unspecified hypothyroidism; Disorders of sacrum Social History Tobacco Use Types Packs/Day Years Used Date Smoking Tobacco: Never Assessed Comments Unknown Sex and Gender Information Value Date Recorded Sex Assigned at Not on file Legal Sex Female 3:46 AM 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
--- OUTSIDE RECORDS SUMMARY | 2025-04-13 20:28 | XMS_ITS | Encounter Summary ---
Author Organization [employer] [facility] Address [address] [place] [address] Care Team Providers Care Remnants Cutter Name Role Phone Arabella Orta MD Primary Care Provider +1- [phone] Encounter Details Date Type Department Care Team (Latest Contact Info) Description 02/26/1999 Outpatient Historical [facility] Mario Martínez Jr., MD [address] [place] [address] Abdominal pain, unspecified site (Primary Dx); Irritable bowel syndrome Social History Tobacco Use Types Packs/Day Years Used Date Smoking Tobacco: Never Assessed Comments Unknown Sex and Gender Information Value Date Recorded Sex Assigned at Not on file Legal Sex Female 3:46 AM 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
--- OUTSIDE RECORDS SUMMARY | 2025-04-13 20:28 | XMS_ITS | Encounter Summary ---
Author Organization [employer] [facility] Address [address] [place] [address] Care Team Providers Care Shuttle Buggy Operator Name Role Phone Arabella Orta MD Primary Care Provider +1- [phone] Encounter Details Date Type Department Care Team (Latest Contact Info) Description 01/06/2001 Outpatient Historical [facility] Mario Martínez Jr., MD [address] [place] [address] Unspecified essential hypertension (Primary Dx); Irritable bowel syndrome; Generalized anxiety disorder Social History Tobacco Use Types Packs/Day Years Used Date Smoking Tobacco: Never Assessed Comments Unknown Sex and Gender Information Value Date Recorded Sex Assigned at Not on file Legal Sex Female 3:46 AM 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
--- OUTSIDE RECORDS SUMMARY | 2025-04-13 20:28 | XMS_ITS | Encounter Summary ---
Author Organization [employer] [facility] Address [address] [place] [address] Care Team Providers Care Tile Finisher Name Role Phone Arabella Orta MD Primary Care Provider +1- [phone] Encounter Details Date Type Department Care Team (Latest Contact Info) Description 12/09/1998 Outpatient Historical [facility] Mario Martínez Jr., MD [address] [place] [address] Abdominal pain, unspecified site (Primary Dx) Social History Tobacco Use Types Packs/Day Years Used Date Smoking Tobacco: Never Assessed Comments Unknown Sex and Gender Information Value Date Recorded Sex Assigned at Not on file Legal Sex Female 3:46 AM 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
--- OUTSIDE RECORDS SUMMARY | 2025-04-13 20:28 | XMS_ITS | Data Portability ---
Author Organization [place] - [facility] Address [address] [facility] [address] [address] Care Team Providers Care Electronic Service Technician Name Role Phone ADRIEN HARTLEY Primary Care Provider Assessment No assessment recorded. Plan of Treatment Reminders Order Date Submit Date Provider Last Modified By Organization Details Last Modified Time Details Appointments None recorded. Lab None recorded. Referral None recorded. Procedures None recorded. Surgeries None recorded. Imaging None recorded. Medication Orders oxycodone 5 mg tablet [address] [id number], [address], [place], [place], [id number], 18:02:51 Patient TargetsNo targets recorded. Patient Instructions Encounter Date Encounter Id Patient Instructions Last Modified By Organization Details Last Modified Time 08/30/2024 [id number] admitted with patellar fracture after a fall s/p orif; admission complicated by bacteremia, uti with klebsiella; evaluated by ID with PICC in place. Also with surgical wound infection. h/o adrenal insufficiency d/c several vitamins. Follows with Dr. Denson. f/u 1 week. [email or web address] Not available 09/03/2024 15:42:35 09/21/2024 [id number] Continues on abx . Sugars too high, increase lispro to 28 units and tresiba to 80 units. [email or web address] Not available 09/21/2024 11:20:50 10/12/2024 [id number] admitted with patellar fracture after a fall s/p orif; admission complicated by bacteremia, uti with klebsiella; evaluated by ID with PICC in place. Also with surgical wound infection. Completed all IV abx, and planning to d/c home from [facility] tomorrow. Will need to establish with Dr. Hartley. She will need front wheeled walker, and she will need for a lifetime. [email or web address] Not available 10/12/2024 14:19:37 Reason for Referral None Reported. Problems Name Problem SNOMED Code Status Onset Date Resolution Date Notes Provider Name and Address Organization Details Recorded Time Bipolar disorder 13592273 Active 2016 Bipolar Disorder; 7 9:18AM by Jannette Nogueira CMT, Office Visit; Promoted; acuity set as *; [facility] 5 17:49:35 Benign essentia l hyperten dusty 0390791 Active 2016 Hypertens ion; 7 9:19AM by Jannette Nogueira CMT, Office Visit; Promoted; acuity set as *; [facility] 5 17:49:22 Anemia 118753721 Completed 201611/29/2024 Anemia; 7 9:18AM by Jannette Nogueira CMT, Office Visit; Promoted; acuity set as *; [facility] 5 17:52:18 Fibromya lgia 893495046 Active 2016 Fibromyal echo; 7 9:18AM by Jannette Nogueira CMT, Office Visit; Promoted; acuity set as *; [facility] 5 17:49:41 Osteoart hritis 210843853 Active 2016 Osteoarth ritis; 7 9:19AM by Jannette Nogueira CMT, Office Visit; Promoted; acuity set as *; [facility] 5 15:04:58 Type 2 diabetes mellitus without complica tion 123889163 Completed 201611/29/2024 Diabetes Mellitus, Type II; 7 9:18AM by Jannette Nogueira CMT, Office Visit; Promoted; acuity set as *; Removal Reason: duplicate [facility] 5 17:50:39 Hypercho lesterol emia 12851524 Active 2016 Hyperchol esterolem ia; 7 9:19AM by Jannette Nogueira CMT, Office Visit; Promoted; acuity set as *; [facility] 5 17:50:02 Gastroes ophageal reflux disease 776838859 Active 2016 Gastroeso phageal Reflux Disease; 7 9:19AM by Jannette Nogueira CMT, Office Visit; Promoted; acuity set as *; [facility] 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 17:49:14 Moderate major depressi on 751895 Active 2024 [facility] 5 17:49:58 Chronic pain syndrome 416580471 Active 2024 [facility] 5 17:50:50 Type 2 diabetes mellitus 92709574 Active 2024 [facility] 5 17:50:21 Closed fracture of patella 25751500 Active 2024 Adrien Hartley MD [address] [place] [address], [phone] , [facility] 5 10:29:05 Nausea and vomiting 50045703 Active 2024 [facility] 5 16:36:20 Problem Notes None recorded. Medical Equipment None Reported. Allergies Allergen ID Allergen Name Allergen Category Reaction Reaction Severity Criticality Documentation Date Start Date Code Code System Note Provider Name and Address Organization Details Recorded Time 39173 Victoza medicatio n abdominal pain Not available Not available 12/19/2022 16672 3 RxNorm React ion: Stoma ch cramp s. *INTO LERAN CE*; Comme nt: Recor ded 01/09 9:17A M by Sylvia adair CMT, Offic e Visit ; Promo teodora; Signi ficearnestine ce: *; Reaso n: Drug aller gy; ; Not Available [facility] 3 02:25:14 43469 morphine sulfate medicatio n dyspnea Not available Not available 12/19/2022 69029 RxNorm React ion: Short ness of breat h; Comme nt: Recor ded 01/09 9:16A M by Sylvia adair CMT, Offic e Visit ; Promo teodora; Signi rebeca ce: *; Reaso n: Drug aller gy; ; Not Available [facility] 3 02:25:14 59439 Cymbalta medicatio n swelling Not available Not available 12/19/2022 40780 4 RxNorm React ion: Swell ing; Comme nt: Recor ded 01/09 9:13A M by Sylvia adair CMT, Offic e Visit ; Promo teodora; Signi rebeca ce: *; Reaso n: Drug aller gy; ; Not Available [facility] 3 02:25:14 86575 meloxicam medicatio n nausea Not available Not available 12/19/2022 34264 RxNorm React ion: Nause a;*IN AMANDEEP ANCE* , Vomit ing;* INTOL ERANC E*; Comme nt: Recor ded 01/09 9:16A M by Sylvia adair CMT, Offic e Visit ; Promo teodora; Signi fican ce: *; Reaso n: Drug aller gy; ; Not Available [facility] 3 02:25:14 99800 Levaquin medicatio n muscle cramps Not available Not available 12/19/2022 26726 2 RxNorm React ion: Neck & Arm pain *INTO LERAN CE*; Comme nt: Recor ded 01/09 9:15A M by Sylvia adair CMT, Offic e Visit ; Promo teodora; Signi ficearnestine ce: *; Reaso n: Drug aller gy; ; Not Available [facility] 3 02:25:14 19673 Dilaudid medicatio n hallucina tions Not available Not available 12/19/2022 48180 3 RxNorm React ion: Hallu cinat ions. 'Make s me crazy ' *INTO LERAN CE*; Comme nt: Recor ded 01/09 9:14A M by Sylvia adair CMT, Offic e Visit ; Promo teodora; Signi ficearnestine ce: *; Reaso n: Drug aller gy; ; Not Available [facility] 3 02:25:14 33542 doxycycli ne hyclate medicatio n swelling Not available Not available 12/19/2022 93414 RxNorm React ion: Swell ing; Comme nt: Recor ded 01/09 9:14A M by Sylvia adair CMT, Offic e Visit ; Promo teodora; Signi rebeca ce: *; Reaso n: Drug aller gy; ; Not Available [facility] 3 02:25:14 08781 Xanax medicatio n chest pain Not available Not available 12/19/202250155 3 RxNorm React ion: Chest pains *INTO LERAN CE*; Comme nt: Recor ded 01/09 9:18A M by Sylvia adair CMT, Offic e Visit ; Promo teodora; Signi ficearnestine ce: *; Reaso n: Drug aller gy; ; Not Available [facility] 3 02:25:15 54738 Ceftin medicatio n rash Not available Not available 12/19/2022 92663 6 RxNorm React ion: Rash; Comme nt: Recor ded 01/09 9:12A M by Sylvia adair CMT, Offic e Visit ; Promo teodora; Signi ficearnestine ce: *; Reaso n: Drug aller gy; ; Not Available [facility] 3 02:25:15 02313 Levemir medicatio n Not available Not available Not available 12/19/2022 74401 0 RxNorm Comme nt: Recor ded 01/09 9:15A M by Sylvia adair, CMT, Offic e Visit ; Promo teodora; Signi fican ce: *; Reaso n: Drug aller gy; ; Not Available [facility] 3 02:25:15 48903 Macrobid medicatio n Not available Not available Not available 12/19/2022 99582 1 RxNorm Comme nt: Recor ded 01/09 9:15A M by Sylvia adair, CMT, Offic e Visit ; Promo teodora; Signi fican ce: *; Reaso n: Drug aller gy; ; Not Available [facility] 3 02:25:15 02468 Bactrim medicatio n Not available Not available Not available 12/19/2022 17841 9 RxNorm Comme nt: Recor ded 01/09 9:16A M by Sylvia adair, CMT, Offic e Visit ; Promo teodora; Signi fican ce: *; Reaso n: Drug aller gy; ; Not Available [facility] 3 02:25:15 25360 Lyrica medicatio n Not available Not available Not available 12/19/2022 72316 1 RxNorm Comme nt: Recor ded 01/09 9:15A M by Sylvia adair, CMT, Offic e Visit ; Promo teodora; Signi fican ce: *; Reaso n: Drug aller gy; ; Not Available [facility] 3 02:25:16 55300 Oxytrol medicatio n Not available Not available Not available 12/19/2022 95089 6 RxNorm Comme nt: Recor ded 01/09 9:16A M by Sylvia adair, CMT, Offic e Visit ; Promo teodora; Signi fican ce: *; Reaso n: Drug aller gy; ; Not Available [facility] 3 02:25:16 06680 Cipro medicatio n nausea Not available Not available 12/19/202256505 3 RxNorm React ion: Nause a;*IN AMANDEEP ANCE* ; Comme nt: Recor ded 01/09 9:13A M by Sylvia adair CMT, Offic e Visit ; Devon jose ce: *; Reaso n: Drug aller gy; ; Not Available Counts include 234 beds at the [facility] 3 02:25:16 Medications Name Sig Start Date Stop Date Status Note LastModified by Organization Details LastModified Time atorvasta tin 40 mg tablet TAKE 1 TABLET BY MOUTH AT BEDTIME active Not Available Not Available No t Available carvedilo l 12.5 mg tablet TAKE 1 TABLET BY MOUTH TWICE DAILY active Not Available Not Available No t Available torsemide 20 mg tablet TAKE 1 TABLET BY MOUTH TWICE DAILY active Not Available Not Available No t Available Claritin 10 mg tablet daily 10/24 completed 0; Recorded 01/10/20 17 9:32AM by Jannette Nogueira CMT, Office Visit; Not Available Not Available Not Available ondansetr on HCl 4 mg tablet TAKE 1 TABLET BY MOUTH EVERY 6 HOURS active Not Available Not Available No t Available valsartan 80 mg tablet daily active 0; Recorded 01/10/20 17 9:30AM by Jannette [...] Not Available Not Available No t Available trimethop rim 100 mg tablet TAKE 1 TABLET BY MOUTH EVERY 12 HOURS FOR 10 DAYS 02/18 completed Not Available Not Available Not Available ciproflox acin 500 mg tablet TAKE 1 TABLET BY MOUTH TWICE DAILY FOR 7 DAYS active Not Available Not Available No t Available hydrocodo ne 10 mg-acetam inophen 325 mg tablet TAKE 1 TABLET BY MOUTH EVERY 6 HOURS 11/15 completed Not Available Not Available Not Available omeprazol e 40 mg capsule,d elayed release two times daily active 0; Recorded 01/10/20 17 9:28AM by Jannette Nogueira CMT, Office Visit; Not Available Not Available Not Available tramadol 50 mg tablet Take 1 tablet every 4 hours by oral route as needed for 30 days. 10/24 completed Not Available Not Available Not Available carvedilo l 3.125 mg tablet TAKE 1 TABLET BY MOUTH TWICE DAILY MUST GIVE WITH A MEAL OR FOOD active Not Available Not Available No t Available isosorbid e mononitra te ER 120 mg tablet,ex tended release 24 hr TAKE 1 TABLET BY MOUTH DAILY AT NOON active Not Available Not Available No t Available oxycodone -acetamin ophen 5 mg-325 mg [...] chloride ER 8 mEq tablet,ex tended release TAKE 3 TABLETS BY MOUTH EVERY DAY active Not Available Not Available No t Available linezolid 600 mg tablet TAKE 1 TABLET [...] ole magnesium 40 mg capsule,d elayed release TAKE 1 CAPSULE BY MOUTH EVERY DAY active Not Available Not Available No t Available glimepiri de 4 mg tablet daily 10/24 [...] Not Available Not Available No t Available ondansetr on 4 mg disintegr ating tablet DISSOLVE 1 TABLET ON THE TONGUE EVERY 6 HOURS NEEDED FOR NAUSEA OR VOMITING active Not Available Not Available No t [...] 1 TABLET BY MOUTH EVERY 6 HOURS FOR 7 DAYS FOR PAIN active Not Available Not Available No t Available insulin lispro (U-100) 100 unit/mL subcutane ous pen INJECT 28 UNITS SUBCUTAN EOUSLY THREE TIMES DAILY active Not Available Not Available [...] Not Available aripipraz ole 2 mg tablet TAKE 1 TABLET BY MOUTH EVERY DAY active Not Available Not Available No t [...] Not Available Not Available No t Available oxycodone 10 mg tablet TAKE 1 TABLET BY MOUTH EVERY 6 HOURS FOR 7 DAYS FOR PAIN active Not Available Not Available No t Available Tresiba FlexTouch U-200 insulin 200 unit/mL (3 mL) subcutane ous pen ADMINIST ER 25 UNITS UNDER THE SKIN TWICE DAILY active Not Available Not Available No t Available Tresiba FlexTouch U-100 insulin 100 unit/mL (3 mL) subcutane ous pen ADMINIST ER 64 UNITS UNDER THE SKIN DAILY active Not Available Not Available No t Available Tresiba FlexTouch U-100 25 UNITS BID active Not Available Not Available No t Available Ultra-Fin e Pen Needle 31 gauge x 3/16 USE DIRECTED active Not Available Not Available No t Available Vitals Date Recorded Heart rate Respiratory rate Body temperature Oxygen saturation Systolic And Diastolic Provider Name and Address Organization Details Last Updated DateTime 5 68 /min 98 /min 98.5 [degF] 95 % 140/70 mm[Hg] [facility] 5 17:52:07 Date Recorded Heart rate Respiratory rate Body temperature Oxygen saturation Systolic And Diastolic Provider Name and Address Organization Details Last Updated DateTime 5 70 /min 18 /min 98.6 [degF] 97 % 137/80 mm[Hg] [facility] 5 11:18:27 Date Recorded Heart rate Respiratory rate Body temperature Oxygen saturation Systolic And Diastolic Provider Name and Address Organization Details Last Updated DateTime 5 68 /min 22 /min 97.6 [degF] 95 % 128/76 mm[Hg] [facility] 5 14:10:44 Date Recorded Body weight Body mass index (BMI) Body height Body temperature Heart rate Oxygen saturation Systolic And Diastolic Provider Name and Address Organization Details Last Updated DateTime 5 15889.2 1 g 36.8 kg/m2 160.02 cm 97.4 [degF] 83 /min 96 % 150/76 mm[Hg] [facility] 5 17:38:39 Social History Question Answer Notes LastModified by Organizat ion Details LastModified Time Tobacco Smoking Status Never Smoker , [facility] 10/24/2024 17:50:03 What Is Your Level Of Caffeine Consumption? Occasional [email or web address] Information not available 10/24/2024 What Was The Date Of Your Most Recent Tobacco Screening? 10/24/2024 [email or web address] Information not available 10/24/2024 Sex: Unknown Functional Status Question Answer Note LastModified by Organizat ion Details LastModified Time Do you use any illicit or recreational drugs? No [email or web address] Information not available 10/24/2024 What is your level of alcohol consumption? None [email or web address] Information not available 10/24/2024 Mental Status None recorded. Family History Nothing Reported. Medical History No medical history recorded. Gynecological HistoryNo gynecological history recorded. Obstetrics History GPAL:G 0 P 0 0 0 0 Immunizations Vaccine Type Date Status Note Provider Nam e and Address Organization Details Recorded Time pneumococcal polysaccharide PPV23 4 completed Not Available [facility] 10/24/2024 17:31:43 Past Encounters Encounter ID Performer Location Encounter Start Date Encounter Closed Date Diagnosis/Indication Diagnosis SNOMED-CT Code Diagnosis ICD10 Code Diagnosis IMO Codes Diagnosis Note [id number] Olman Ruvalcaba DO [facility]) [address] [place] [phone] 5 08/30/2024 14:47:29 09/04/2024 14:51:13 Benign essential hypertension 8246304 I10 Bipolar disorder 5144664 4 F31.9 Fibromyalgia 347224425 M 79.7 Hospital i npatient stay within past 30 days 8359774982 106 Z76.89 Cellulitis 315493240 L03 .90 Closed fra cture of left patella 3790589769 4478043 S82.012A Urinary tr act infectious disease 08607064 N39.0 Bacteremia 1072241 R78.8 1 [id number] Olman Ruvalcaba DO [facility] [address] [place] [phone] 5 09/21/2024 08:04:46 09/24/2024 20:41:19 Type 2 diabetes mellitus without complication 208652465 Z79.4 Anemia 634801977 D64.9 Benign ess ential hypertension 6770911 I10 Bipolar disorder 5928435 4 F31.9 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 65374 [id number] Olman Ruvalcaba DO [facility]) [address] [place] [id number] 5 10/12/2024 08:11:12 10/17/2024 09:54:09 Benign essential hypertension 5310470 I10 Bipolar disorder 2073364 4 F31.9 Fibromyalgia 341125338 M 79.7 Depressive disorder 3548 9007 F32.A 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 Wynn for mental health. Encouraged patient to make follow-up appointmen t to discuss options for treatment. Chronic pain syndrome 37 3289413 G89.4 83855 Osteoarthritis 167175790 M19.90 Increase her oxycodone to every 4 hours temporaril y. Benign ess ential hypertension 4644056 I10 Patient is encouraged to monitor blood pressure as it was elevated today. Patient was instructed to do twice daily and to notify the clinic of those results in approximat corey 1 week. 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 Denson Bipolar disorder 5986021 4 F31.9 Continue follow-up with psychiatry Type 2 alex betes mellitus 77438583 E11.9 80779925 Encouraged patient to follow-up with Dr. Denson as she has been managing this chronic condition for this patient Closed fra cture of patella 50141791 S82.002D 84653655 Continue physical therapy And home health. Continue [...] Name 10/24/2024 1 [place] Fabiola Berg [id number] Brandi Berg 10/24/2024 1 [place] B[place]: [place] Brandi Berg [id number] Brandi Berg 08/30/2024 1 *SELF PAY* vanessa Robisonon 10/24/2024 [place] - [place] A - [facility] (MEDICARE) Brandi Berg [id number] Brandi Berg 09/20/2024 2 UNSPECIFIED REMIT PAYOR Brandi Berg Notes Date Note Type Note Provider Name and Address Organization Details Recorded Time 08/30/2024 text/html DiabetesReported by PatientHPIFor duration, patient reportschronic. For control, patient reportsusually well controlled. For compliance, patient reportscompliant with medications.ROS as noted in the [facility] Olman Ruvalcaba DO [address] [place] [address], [phone], [facility] 09/03/2024 15:43:06 09/21/2024 text/html DiabetesReported by PatientHPIFor duration, patient reportschronic. For control, patient reportsusually well controlled. For compliance, patient reportscompliant with medications.ROS as noted in the [facility] Olman Ruvalcaba DO [address] [place] [address], [phone], [facility] 09/24/2024 16:25:27 10/12/2024 text/html DiabetesReported by PatientHPIFor duration, patient reportschronic. For control, patient reportsusually well controlled. For compliance, patient reportscompliant with medications.ROS as noted in the [facility] Visit for d/c. Planning to follow up with ID tomorrow after finishing IV abx. Olman Ruvalcaba DO [address] [place] [address], [phone], [facility] 10/13/2024 16:27:11 10/24/2024 text/html Annual WellnessReported by PatientSocial/Behavior al HistoryFor diet and nutrition, patient reportshigh caloric intakeandhigh carbohydrate meals. For fracture risk, patient reportshistory of fractures. For physical activity, patient reportsdiscussed exercise habits. For additional lifestyle factors, patient reportsno tobacco use,no alcohol intake, andstopped drinking alcohol.Mental Status:For depression risk, patient reportsfeels sad, empty, or tearful,loss of energy,feelings of worthlessness or guilt, andhistory of depressionbut reportsno loss of interest in activities,no significant changes in weight,no sleep disturbances or insomnia,no agitation, andno thoughts of suicide.Functional AbilityFor hearing, patient reportsno loss of hearing. For vision, patient reportsno vision problems. This is an 79-year-old female comes in today to establish care. The patient was recently in the correction. 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 Patient states that she has not had follow-up with her specialist since her injury. Adrien Hartley MD [address] [place] [address], [phone], [facility] 10/27/2024 09:51:37 OBGyn Episode No OBEpisode recorded.
--- OUTSIDE RECORDS SUMMARY | 2025-04-13 20:28 | XMS_ITS | Encounter Summary ---
Author Organization [facility] Address [address] [place] [address] Care Team Providers Care Metal Filer Name Role Phone Arabella Orta MD Primary Care Provider [phone] Encounter Details Date Type Department Care Team (Latest Contact Info) Description 02/08/2002 Outpatient Historical [facility] Mario Martínez Jr., MD [address] [place] [address] GENERAL OSTEOARTHROSIS (Primary Dx); HYPERTENSION NOS; DIABETES UNCOMPL ADULT-TYPE II (CMS/HCC) Social History Tobacco Use Types Packs/Day Years Used Date Smoking Tobacco: Never Assessed Comments Unknown Sex and Gender Information Value Date Recorded Sex Assigned at Not on file 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
--- OUTSIDE RECORDS SUMMARY | 2025-04-13 20:28 | XMS_ITS | Encounter Summary ---
Author Organization [facility] Address [address] [place] [address] Care Team Providers Care Biofuels Plant Construction Worker Name Role Phone Arabella Orta MD Primary Care Provider [phone] Encounter Details Date Type Department Care Team (Latest Contact Info) Description 10/30/1999 Outpatient Historical [facility] Mario Martínez Jr., MD [address] [place] [address] Unspecified essential hypertension (Primary Dx); Irritable bowel syndrome; Depressive disorder, not elsewhere classified; Unspecified hypothyroidism Social History Tobacco Use Types Packs/Day Years Used Date Smoking Tobacco: Never Assessed Comments Unknown Sex and Gender Information Value Date Recorded Sex Assigned at Not on file 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
--- OUTSIDE RECORDS SUMMARY | 2025-04-13 20:28 | XMS_ITS | Encounter Summary ---
Author Organization [employer] [facility] Address [address] [place] [address] Care Team Providers Care Director Hardware Name Role Phone Arabella Orta MD Primary Care Provider +1- [phone] Encounter Details Date Type Department Care Team (Latest Contact Info) Description 08/14/1999 Outpatient Historical [facility] Mario Martínez Jr., MD [address] [place] [address] Asymptomatic varicose veins (Primary Dx); Disorders of porphyrin metabolism; Irritable bowel syndrome; Cystitis, unspecified Social History Tobacco Use Types Packs/Day Years Used Date Smoking Tobacco: Never Assessed Comments Unknown Sex and Gender Information Value Date Recorded Sex Assigned at Not on file 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
--- OUTSIDE RECORDS SUMMARY | 2025-04-13 20:28 | XMS_ITS | Encounter Summary ---
Author Organization [employer] [facility] Address [address] [place] [address] Care Team Providers Care Surgical Consultant Name Role Phone Arabella Orta MD Primary Care Provider +1- [phone] Encounter Details Date Type Department Care Team (Latest Contact Info) Description 07/21/1999 Outpatient Historical [facility] Mario Martínez Jr., MD [address] [place] [address] Asymptomatic varicose veins (Primary Dx) Social History Tobacco Use Types Packs/Day Years Used Date Smoking Tobacco: Never Assessed Comments Unknown Sex and Gender Information Value Date Recorded Sex Assigned at Not on file Legal Sex Female 3: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
--- OUTSIDE RECORDS SUMMARY | 2025-04-13 20:28 | XMS_ITS | Encounter Summary ---
Author Organization [employer] [facility] Address [address] [place] [address] Care Team Providers Care Siebel Administrator Name Role Phone Arabella Orta MD Primary Care Provider +1- [phone] Encounter Details Date Type Department Care Team (Latest Contact Info) Description 11/09/2001 Outpatient Historical [facility] Mario Martínez Jr., MD [address] [place] [address] OSTEOARTHROS NOS-UNSPEC (Primary Dx) Social History Tobacco Use Types Packs/Day Years Used Date Smoking Tobacco: Never Assessed Comments Unknown Sex and Gender Information Value Date Recorded Sex Assigned at Not on file Legal Sex Female 3: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
--- OUTSIDE RECORDS SUMMARY | 2025-04-13 20:28 | XMS_ITS | Encounter Summary ---
Author Organization [employer] [facility] Address [address] [place] [address] Care Team Providers Care Manager Steel Name Role Phone Arabella Orta MD Primary Care Provider +1- [phone] Encounter Details Date Type Department Care Team (Latest Contact Info) Description 03/25/1998 Outpatient Historical [facility] Mario Martínez Jr., MD [address] [place] [address] Bronchitis, not specified as acute or chronic (Primary Dx); Disorders of porphyrin metabolism Social History Tobacco Use Types Packs/Day Years Used Date Smoking Tobacco: Never Assessed Comments Unknown Sex and Gender Information Value Date Recorded Sex Assigned at Not on file Legal Sex Female 3:46 AM WORKDAY CONSULTANT Gender Identity Not on file Sexual Orientation Not on file documented as of this encounter Plan of Treatment Not on file documented as of this encounter Visit Diagnoses Diagnosis Bronchitis, not specified as acute or chronic- Primary Disorders of porphyrin metabolism documented in this encounter Care Teams Manager Steel Relationship Specialty Start Date End Date Arabella Orta MD [address] [place] [address] PCP - General Family Practice 03/03/12 documented as of this encounter
--- OUTSIDE RECORDS SUMMARY | 2025-04-13 20:28 | XMS_ITS | Encounter Summary ---
Author Organization [facility] Address [address] [place] [address] Care Team Providers Care Hearing Aid Consultant Name Role Phone Arabella Orta MD Primary Care Provider +1- [phone] Encounter Details Date Type Department Care Team (Latest Contact Info) Description 02/22/2006 Outpatient Historical [facility] Urology- [address]tr[address], 3[address] [place] [address] Zi Osullivan MD NO ADDRESS ON FILE Bladder Hypertonicity (Primary Dx) Social History Tobacco Use Types Packs/Day Years Used Date Smoking Tobacco: Never Assessed Comments Unknown Sex and Gender Information Value Date Recorded Sex Assigned at Not on file Legal Sex Female 3:46 AM DOOR PULLER Gender Identity Not on file Sexual Orientation Not on file documented as of this encounter Plan of Treatment Not on file documented as of this encounter Visit Diagnoses Diagnosis Bladder hypertonicity- Primary Hypertonicity of bladder documented in this encounter Care Teams Hearing Aid Consultant Relationship Specialty Start Date End Date Arabella Orta MD [address] [place] [address] PCP - General Family Practice 03/03/12 documented as of this encounter
--- OUTSIDE RECORDS SUMMARY | 2025-04-13 20:28 | XMS_ITS | Encounter Summary ---
Author Organization [employer] [facility] Address [address] [place] [address] Care Team Providers Care Pantograph Watcher Name Role Phone Arabella Orta MD Primary Care Provider +1- [phone] Encounter Details Date Type Department Care Team (Latest Contact Info) Description 09/06/1998 Outpatient Historical [facility] Mario Martínez Jr., MD [address] [place] [address] Impacted cerumen (Primary Dx); Acute sinusitis, unspecified Social History Tobacco Use Types Packs/Day Years Used Date Smoking Tobacco: Never Assessed Comments Unknown Sex and Gender Information Value Date Recorded Sex Assigned at Not on file Legal Sex Female 3:46 AM CHEF ASSISTANT Gender Identity Not on file Sexual Orientation Not on file documented as of this encounter Plan of Treatment Not on file documented as of this encounter Visit Diagnoses Diagnosis Impacted cerumen- Primary Acute sinusitis, unspecified documented in this encounter Care Teams Pantograph Watcher Relationship Specialty Start Date End Date Arabella Orta MD [address] [place] [address] PCP - General Family Practice 03/03/12 documented as of this encounter
--- OUTSIDE RECORDS SUMMARY | 2025-04-13 20:28 | XMS_ITS | Encounter Summary ---
Author Organization [employer] [facility] Address [address] [place] [address] Care Team Providers Care Loss Prevention Lead Name Role Phone Arabella Orta MD Primary Care Provider +1- [phone] Encounter Details Date Type Department Care Team (Latest Contact Info) Description 06/28/1998 Outpatient Historical [facility] Mario Martínez Jr., MD [address] [place] [address] Disorders of porphyrin metabolism (Primary Dx); Unspecified essential hypertension; Apnea Social History Tobacco Use Types Packs/Day Years Used Date Smoking Tobacco: Never Assessed Comments Unknown Sex and Gender Information Value Date Recorded Sex Assigned at Not on file Legal Sex Female 3:46 AM DATA CONTROL CLERK 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
--- OUTSIDE RECORDS SUMMARY | 2025-04-13 20:28 | XMS_ITS | Encounter Summary ---
Author Organization [employer] [facility] Address [address] [place] [address] Care Team Providers Care Director Nicu Name Role Phone Arabella Orta MD Primary Care Provider +1- [phone] Encounter Details Date Type Department Care Team (Latest Contact Info) Description 11/13/1999 Outpatient Historical [facility] Mario Martínez Jr., MD [address] [place] [address] Osteoarthrosis, unspecified whether generalized or localized, unspecified site (Primary Dx) Social History Tobacco Use Types Packs/Day Years Used Date Smoking Tobacco: Never Assessed Comments Unknown Sex and Gender Information Value Date Recorded Sex Assigned at Not on file Legal Sex Female 3:46 AM MEN'S 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
--- OUTSIDE RECORDS SUMMARY | 2025-04-13 20:28 | XMS_ITS | Encounter Summary ---
Author Organization [employer] [facility] Address [address] [place] [address] Care Team Providers Care Electron Beam Welder Name Role Phone Arabella Orta MD Primary Care Provider +1- [phone] Encounter Details Date Type Department Care Team (Latest Contact Info) Description 06/22/2001 Outpatient Historical [facility] Mario Martínez Jr., MD [address] [place] [address] HYPERTENSION NOS (Primary Dx); GENERALIZED ANXIETY DIS Social History Tobacco Use Types Packs/Day Years Used Date Smoking Tobacco: Never Assessed Comments Unknown Sex and Gender Information Value Date Recorded Sex Assigned at Not on file Legal Sex Female 3:46 AM BI SPECIALIST Gender Identity Not on file Sexual Orientation Not on file documented as of this encounter Plan of Treatment Not on file documented as of this encounter Visit Diagnoses Diagnosis Unspecified essential hypertension- Primary Generalized anxiety disorder documented in this encounter Care Teams Electron Beam Welder Relationship Specialty Start Date End Date Arabella Orta MD [address] [place] [address] PCP - General Family Practice 03/03/12 documented as of this encounter
--- OUTSIDE RECORDS SUMMARY | 2025-04-13 20:28 | XMS_ITS | Encounter Summary ---
Author Organization [employer] [facility] Address [address] [place] [address] Care Team Providers Care In Service Educator Name Role Phone Arabella Orta MD Primary Care Provider +1- [phone] Encounter Details Date Type Department Care Team (Latest Contact Info) Description 02/14/1999 Outpatient Historical [facility] Mario Martínez Jr., MD [address] [place] [address] Cystitis, unspecified (Primary Dx); Disorders of porphyrin metabolism; Diverticulitis of colon Social History Tobacco Use Types Packs/Day Years Used Date Smoking Tobacco: Never Assessed Comments Unknown Sex and Gender Information Value Date Recorded Sex Assigned at Not on file Legal Sex Female 3:46 AM GAS METER READER Gender Identity Not on file Sexual Orientation Not on file documented as of this encounter Plan of Treatment Not on file documented as of this encounter Visit Diagnoses Diagnosis Cystitis, unspecified- Primary Disorders of porphyrin metabolism Diverticulitis of colon Diverticulitis of colon (without mention of hemorrhage) documented in this encounter Care Teams In Service Educator Relationship Specialty Start Date End Date Arabella Orta MD [address] [place] [address] PCP - General Family Practice 03/03/12 documented as of this encounter
--- OUTSIDE RECORDS SUMMARY | 2025-04-13 20:28 | XMS_ITS | Clinical Summary ---
Author Organization [facility] Address [address] [place] [address] Care Team Providers Care Engagement Executive Name Role Phone Arabella Orta MD Primary Care Provider +1- [phone] Allergies Active Allergy Reactions Criticality Noted Date [...] (Sulfonamide Antibiotics) Abdominal Pain Low 11/13/2008 Medications [id number] oil (METANX, ALGAL OIL,) 3 mg-35 mg-2 [...] tablet Take 60 mg by mouth daily rn clinical. Active loratadine (ALAVERT) 10 mg tablet Take 10 mg by mouth 1 time daily as needed. Active meclizine (ANTIVERT) 25 mg tablet Take 25 mg by mouth 2 times daily as needed. Active blood sugar diagnostic (ONE TOUCH TEST) Strip 1 Strip by See Admin Instructions route. Active Blood-Glucose Meter (ONE TOUCH BASIC SYSTEM) Kit by [facility].(Non-Drug; Combo Route) route. Active ONE TOUCH DELICA LANCETS MIS by [facility].(Non-Drug; Combo Route) route. Active bisacodyl (DULCOLAX) 10 [...] on file Legal Sex Female 3:46 AM COLD WORKING INSPECTOR Gender Identity Not on file Sexual Orientation [...] Discontinued Insurance MEDICARE PART A AND B [facility] MEDICARE PART A AND B [facility] [place] [address] Advance Directives For more information, please contact: [phone] * Full Code (Latest Code Status on File) Date Activated Date Inactivated Comments 11/07/2013 6:13 AM 11/11/2013 3:23 PM * Full Code Date Activated Date Inactivated Comments 11/01/2013 4:42 PM 11/04/2013 6:09 PM Care Teams Engagement Executive Relationship Specialty Start Date End Date Arabella Orta MD [address] [place] [address] PCP - General Family Practice 03/03/12
--- OUTSIDE RECORDS SUMMARY | 2025-04-13 20:28 | XMS_ITS | Encounter Summary ---
Author Organization [facility] Address [address] [place] [address] Care Team Providers Care Acidizer Helper Name Role Phone Arabella Orta MD Primary Care Provider +1- [phone] Encounter Details Date Type Department Care Team (Latest Contact Info) Description 04/01/2006 Outpatient Historical [facility] Pod[facility] G[place] [address] [place] [address] Jesus Bolton, DPM NO ADDRESS ON FILE Hallux Valgus (Primary Dx); Other Hammer Toe (Acquired); DM Neuro Manif Type II (CMS/FORMERLY [facility]) Social History Tobacco Use Types Packs/Day Years Used Date Smoking Tobacco: Never Assessed Comments Unknown Sex and Gender Information Value Date Recorded Sex Assigned at Not on file Legal Sex Female 3:46 AM PLATING STRIPPER Gender Identity Not on file Sexual Orientation [...] uncontrolled documented in this encounter Care Teams Acidizer Helper Relationship Specialty Start Date End Date Arabella Orta MD [address] [place] [address] PCP - General Family Practice 03/03/12 documented as of this encounter
--- OUTSIDE RECORDS SUMMARY | 2025-04-13 20:28 | XMS_ITS | Encounter Summary ---
Author Organization [employer] [facility] Address [address] [place] [address] Care Team Providers Care Maintenance Of Way Clerk Name Role Phone Arabella Orta MD Primary Care Provider +1- [phone] Encounter Details Date Type Department Care Team (Latest Contact Info) Description 05/02/2001 Outpatient Historical [facility] Mario Martínez Jr., MD [address] [place] [address] ABDOMINAL PAIN UNSPEC SITE (Primary Dx); URETHRAL STRICTURE NOS Social History Tobacco Use Types Packs/Day Years Used Date Smoking Tobacco: Never Assessed Comments Unknown Sex and Gender Information Value Date Recorded Sex Assigned at Not on file Legal Sex Female 3:46 AM BACTERIOLOGY TEACHER Gender Identity Not on file Sexual Orientation Not on file documented as of this encounter Plan of Treatment Not on file documented as of this encounter Visit Diagnoses Diagnosis Abdominal pain, unspecified site- Primary Urethral stricture unspecified Urethral stricture, unspecified documented in this encounter Care Teams Maintenance Of Way Clerk Relationship Specialty Start Date End Date Arabella Orta MD [address] [place] [address] PCP - General Family Practice 03/03/12 documented as of this encounter
--- OUTSIDE RECORDS SUMMARY | 2025-04-13 20:28 | XMS_ITS | Encounter Summary ---
Author Organization [employer] [facility] Address [address] [place] [address] Care Team Providers Care Clerical Clerk Name Role Phone rAabella Orta MD Primary Care Provider +1- [phone] Encounter Details Date Type Department Care Team (Latest Contact Info) Description 01/19/2002 Outpatient Historical 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
--- OUTSIDE RECORDS SUMMARY | 2025-04-13 20:28 | XMS_ITS | Encounter Summary ---
Author Organization [facility] Address [address] [place] [address] Care Team Providers Care Business Mgr Name Role Phone Arabella Orta MD Primary Care Provider +1- [phone] Encounter Details Date Type Department Care Team (Latest Contact Info) Description 03/05/2006 Outpatient Historical [facility] [address] [place] [address] Mathew Sandoval MD NO ADDRESS ON FILE Acquired Absence of Organ, Genital Organs (Primary Dx) Social History Tobacco Use Types Packs/Day Years Used Date Smoking Tobacco: Never Assessed Comments Unknown Sex and Gender Information Value Date Recorded Sex Assigned at Not on file Legal Sex Female 3:46 AM CONVALESCENT SITTER Gender Identity Not on file Sexual Orientation [...] Primary documented in this encounter Care Teams Business Mgr Relationship Specialty Start Date End Date Arabella Orta MD [address] [place] [address] PCP - General Family Practice 03/03/12 documented as of this encounter
--- OUTSIDE RECORDS SUMMARY | 2025-04-13 20:28 | XMS_ITS | Encounter Summary ---
Author Organization [facility] Address [address] [place] [address] Care Team Providers Care Training Technician Name Role Phone Arabella Orta MD Primary Care Provider +1- [phone] Encounter Details Date Type Department Care Team (Latest Contact Info) Description 06/09/2001 Outpatient Historical [facility] Mario Martínez Jr., MD [address] [place] [address] GASTROINTEST HEMORR NOS (Primary Dx); ABDOMINAL PAIN UNSPEC SITE Social History Tobacco Use Types Packs/Day Years Used Date Smoking Tobacco: Never Assessed Comments Unknown Sex and Gender Information Value Date Recorded Sex Assigned at Not on file Legal Sex Female 3:46 AM 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
--- OUTSIDE RECORDS SUMMARY | 2025-04-13 20:28 | XMS_ITS | Encounter Summary ---
Author Organization [facility] Address [address] [place] [address] Care Team Providers Care Care Giver Name Role Phone Arabella Orta MD Primary Care Provider +1- [phone] Encounter Details Date Type Department Care Team (Latest Contact Info) Description 07/30/2004 Outpatient Historical [facility] Podiatry[facility] [address] [place] [address] Jesus Bolton, DPM NO ADDRESS ON FILE DIABETES TYPE II W NEURO MANIFESTATIONS (CMS/FORMERLY [facility]) (Primary Dx); LOCAL SKIN INFECTION NOS Social History Tobacco Use Types Packs/Day Years Used Date Smoking Tobacco: Never Assessed Comments Unknown Sex and Gender Information Value Date Recorded Sex Assigned at Not on file Legal Sex Female 3:46 AM BLACKSMITH APPRENTICE Gender Identity Not on file Sexual Orientation [...] tissue documented in this encounter Care Teams Care Giver Relationship Specialty Start Date End Date Arabella Orta MD [address] [place] [address] PCP - General Family Practice 03/03/12 documented as of this encounter
--- OUTSIDE RECORDS SUMMARY | 2025-04-13 20:28 | XMS_ITS | Encounter Summary ---
Author Organization [facility] Address [address] [place] [address] Care Team Providers Care Ultrasound Technologist Sonographer Name Role Phone Arabella Orta MD Primary Care Provider +1- [phone] Encounter Details Date Type Department Care Team (Late st Contact Info) Description 08/15/2003 Outpatient Historical [facility] [address] [facility] [place] [address] Ridge Bergman, DO [address] [facility] [address] [place] [address] Social History Tobacco Use Types Packs/Day Years Used Date Smoking Tobacco: Never Assessed Comments Unknown Sex and Gender Information Value Date Recorded Sex Assigned at Not on file Legal Sex Female 3:46 AM CARDIOPULMONARY PHYSICAL THERAPIST Gender Identity Not on file Sexual Orientation Not on file documented as of this encounter Plan of Treatment Not on file documented as of this encounter Visit Diagnoses Not on filedocumented in this encounter Care Teams Ultrasound Technologist Sonographer Relationship Specialty Start Date End Date Arabella Orta MD [address] [place] [address] PCP - General Family Practice 03/03/12 documented as of this encounter
--- OUTSIDE RECORDS SUMMARY | 2025-04-13 20:28 | XMS_ITS | Encounter Summary ---
Author Organization [facility] Address [address] 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
--- OUTSIDE RECORDS SUMMARY | 2025-04-13 20:28 | XMS_ITS | Encounter Summary ---
Author Organization [employer] [facility] Address [address] [place] [address] Care Team Providers Care Land Examiner Name Role Phone Arabella Orta MD Primary Care Provider +1- [phone] Encounter Details Date Type Department Care Team (Latest Contact Info) Description 01/30/1999 Outpatient Historical [facility] Mario Martínez Jr., MD [address] [place] [address] Abdominal pain, unspecified site (Primary Dx) Social History Tobacco Use Types Packs/Day Years Used Date Smoking Tobacco: Never Assessed Comments Unknown Sex and Gender Information Value Date Recorded Sex Assigned at Not on file Legal Sex Female 3:46 AM BARK TANNER Gender Identity Not on file Sexual Orientation Not on file documented as of this encounter Plan of Treatment Not on file documented as of this encounter Visit Diagnoses Diagnosis Abdominal pain, unspecified site- Primary documented in this encounter Care Teams Land Examiner Relationship Specialty Start Date End Date Arabella Orta MD [address] [place] [address] PCP - General Family Practice 03/03/12 documented as of this encounter
--- OUTSIDE RECORDS SUMMARY | 2025-04-13 20:28 | XMS_ITS | Encounter Summary ---
Author Organization [employer] [facility] Address [address] [place] [address] Care Team Providers Care Asphalt Plant Laborer Name Role Phone Arabella Orta MD Primary Care Provider +1- [phone] Encounter Details Date Type Department Care Team (Latest Contact Info) Description 11/06/1998 Outpatient Historical [facility] Mario Martínez Jr., MD [address] [place] [address] Osteoarthrosis, unspecified whether generalized or localized, unspecified site (Primary Dx); Unspecified essential hypertension; Disorders of porphyrin metabolism Social History Tobacco Use Types Packs/Day Years Used Date Smoking Tobacco: Never Assessed Comments Unknown Sex and Gender Information Value Date Recorded Sex Assigned at Not on file Legal Sex Female 3:46 AM DRUG SAFETY SCIENTIST Gender Identity Not on file Sexual Orientation Not on file documented as of this encounter Plan of Treatment Not on file documented as of this encounter Visit Diagnoses Diagnosis Osteoarthrosis, unspecified whether generalized or localized, unspecified site- Primary Unspecified essential hypertension Disorders of porphyrin metabolism documented in this encounter Care Teams Asphalt Plant Laborer Relationship Specialty Start Date End Date Arabella Orta MD [address] [place] [address] PCP - General Family Practice 03/03/12 documented as of this encounter
--- OUTSIDE RECORDS SUMMARY | 2025-04-13 20:28 | XMS_ITS | Encounter Summary ---
Author Organization [facility] Address [address] [place] [address] Care Team Providers Care Grain Miller Helper Name Role Phone Arabella Orta MD Primary Care Provider +1- [phone] Encounter Details Date Type Department Care Team (Latest Contact Info) Description 10/02/2004 Outpatient Historical [facility] Podiatry-[place] Gonsalo [place] [address] [place] [address] Jesus Bolton, DPM NO ADDRESS ON FILE DIABETES TYPE II W NEURO MANIFESTATIONS (CMS/[facility]) (Primary Dx); LOCAL SKIN INFECTION NOS Social History Tobacco Use Types Packs/Day Years Used Date Smoking Tobacco: Never Assessed Comments Unknown Sex and Gender Information Value Date Recorded Sex Assigned at Not on file Legal Sex Female 3: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
--- OUTSIDE RECORDS SUMMARY | 2025-04-13 20:28 | XMS_ITS | Encounter Summary ---
Author Organization [facility] Address [address] [place] [address] Care Team Providers Care Health Policy Nurse Name Role Phone Arabella Orta MD Primary Care Provider +1- [phone] Encounter Details Date Type Department Care Team (Latest Contact Info) Description 08/01/1999 Outpatient Historical [facility] Mario Martínez Jr., MD [address] [place] [address] Embolism and thrombosis of unspecified site (CMS/HCC) (Primary Dx); Disorders of porphyrin metabolism Social History Tobacco Use Types Packs/Day Years Used Date Smoking Tobacco: Never Assessed Comments Unknown Sex and Gender Information Value Date Recorded Sex Assigned at Not on file Legal Sex Female 3:46 AM MANAGER INVENTORY Gender Identity Not on file Sexual Orientation Not on file documented as of this encounter Plan of Treatment Not on file documented as of this encounter Visit Diagnoses Diagnosis Embolism and thrombosis of unspecified site (CMS/HCC)- Primary Embolism and thrombosis of unspecified site Disorders of porphyrin metabolism documented in this encounter Care Teams Health Policy Nurse Relationship Specialty Start Date End Date Arabella Orta MD [address] [place] [address] PCP - General Family Practice 03/03/12 documented as of this encounter
--- OUTSIDE RECORDS SUMMARY | 2025-04-13 20:28 | XMS_ITS | Encounter Summary ---
Author Organization [employer] [facility] Address [address] [place] [address] Care Team Providers Care Gaming Dealer Name Role Phone Arabella Orta MD Primary Care Provider +1- [phone] Encounter Details Date Type Department Care Team (Latest Contact Info) Description 01/04/2002 Outpatient Historical [facility] Mario Martínez Jr., MD [address] [place] [address] IRRITABLE COLON (Primary Dx); ATHEROSCLEROSIS NOS; OSTEOARTHROS NOS-UNSPEC; DIABETES UNCOMPL ADULT-TYPE II ([facility]) Social History Tobacco Use Types Packs/Day Years Used Date Smoking Tobacco: Never Assessed Comments Unknown Sex and Gender Information Value Date Recorded Sex Assigned at Not on file Legal Sex Female 3:46 AM SOCIAL SERVICE DIRECTOR Gender Identity Not on file Sexual [...] uncontrolled documented in this encounter Care Teams Gaming Dealer Relationship Specialty Start Date End Date Arabella Orta MD [address] [place] [address] PCP - General Family Practice 03/03/12 documented as of this encounter
--- OUTSIDE RECORDS SUMMARY | 2025-04-13 20:28 | XMS_ITS | Encounter Summary ---
Author Organization [facility] Address [address] [place] [address] Care Team Providers Care Microbiology Analyst Name Role Phone Arabella Orta MD Primary Care Provider +1- [phone] Encounter Details Date Type Department Care Team (Latest Contact Info) Description 01/18/2006 Outpatient Historical [facility] Podiatry-[place] Gonsalo [place] [address] [place] [address] Jesus Bolton, DPM NO ADDRESS ON FILE DM Neuro Manif Type II ([facility]) (Primary Dx); Hallux Valgus; Other Hammer Toe (Acquired) Social History Tobacco Use Types Packs/Day Years Used Date Smoking Tobacco: Never Assessed Comments Unknown Sex and Gender Information Value Date Recorded Sex Assigned at Not on file Legal Sex Female 3:46 AM HORSE IDENTIFIER Gender Identity Not on file Sexual Orientation Not on file documented as of this encounter Plan of Treatment Not on file documented as of this encounter Visit Diagnoses Diagnosis Type II or unspecified type diabetes mellitus with neurological manifestations, 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
--- OUTSIDE RECORDS SUMMARY | 2025-04-13 20:28 | XMS_ITS | Encounter Summary ---
Author Organization [employer] [facility] Address [address] [place] [address] Care Team Providers Care Bilingual Call Center Representative Name Role Phone Arabella Orta MD Primary Care Provider +1- [phone] Encounter Details Date Type Department Care Team (Latest Contact Info) Description 10/06/1999 Outpatient Historical [facility] Mario Martínez Jr., MD [address] [place] [address] Osteoporosis, unspecified (Primary Dx); Other specified menopausal and postmenopausal disorder Social History Tobacco Use Types Packs/Day Years Used Date Smoking Tobacco: Never Assessed Comments Unknown Sex and Gender Information Value Date Recorded Sex Assigned at Not on file Legal Sex Female 3:46 AM STORE STANDARDS 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
--- OUTSIDE RECORDS SUMMARY | 2025-04-13 20:28 | XMS_ITS | Encounter Summary ---
Author Organization [facility] Address [address] [place] [address] Care Team Providers Care Key Punch Teacher Name Role Phone Arabella Orta MD Primary Care Provider +1- [phone] Encounter Details Date Type Department Care Team (Late st Contact Info) Description 03/05/2006 Outpatient Historical [facility] Gen Spec [address] [place] [address] [place] [address] Mathew Sandoval MD NO ADDRESS ON FILE Abdominal Pain, Unspecified Site (Primary Dx) Social History Tobacco Use Types Packs/Day Years Used Date Smoking Tobacco: Never Assessed Comments Unknown Sex and Gender Information Value Date Recorded Sex Assigned at Not on file Legal Sex Female 3:46 AM ECONOMETRICIAN Gender Identity Not on file Sexual Orientation Not on file documented as of this encounter Plan of Treatment Not on file documented as of this encounter Visit Diagnoses Diagnosis Abdominal pain, unspecified site- Primary documented in this encounter Care Teams Key Punch Teacher Relationship Specialty Start Date End Date Arabella Orta MD [address] [place] [address] PCP - General Family Practice 03/03/12 documented as of this encounter
--- OUTSIDE RECORDS SUMMARY | 2025-04-13 20:28 | XMS_ITS | Encounter Summary ---
Author Organization [facility] Address [address] [place] [address] Care Team Providers Care Sawyer Cork Slabs Name Role Phone Arabella Orta MD Primary Care Provider +1- [phone] Encounter Details Date Type Department Care Team (Latest Contact Info) Description 10/07/1998 Outpatient Historical [facility] Mario Martínez Jr., MD [address] [place] [address] Backache, unspecified (Primary Dx); Osteoarthrosis, unspecified whether generalized or localized, unspecified site Social History Tobacco Use Types Packs/Day Years Used Date Smoking Tobacco: Never Assessed Comments Unknown Sex and Gender Information Value Date Recorded Sex Assigned at Not on file Legal Sex Female 3:46 AM ASSET PROTECTION 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
--- OUTSIDE RECORDS SUMMARY | 2025-04-13 20:28 | XMS_ITS | Encounter Summary ---
Author Organization [facility] Address [address] [place] [address] Care Team Providers Care Platform Inspector Name Role Phone Arabella Orta MD Primary Care Provider +1- [phone] Encounter Details Date Type Department Care Team (Latest Contact Info) Description 09/07/2001 Outpatient Historical [facility] Mario Martínez Jr., MD [address] [place] [address] DIABETES UNCOMPL ADULT-TYPE II ([facility]) (Primary Dx); ESOPHAGEAL REFLUX Social History Tobacco Use Types Packs/Day Years Used Date Smoking Tobacco: Never Assessed Comments Unknown Sex and Gender Information Value Date Recorded Sex Assigned at Not on file Legal Sex Female 3:46 AM SUPERVISOR FINISHING ROOM Gender Identity Not on file Sexual Orientation Not on file documented as of this encounter Plan of Treatment Not on file documented as of this encounter Visit Diagnoses Diagnosis Type II or unspecified type diabetes mellitus without mention of complication, not stated as uncontrolled- Primary Esophageal reflux documented in this encounter Care Teams Platform Inspector Relationship Specialty Start Date End Date Arabella Orta MD [address] [place] [address] PCP - General Family Practice 03/03/12 documented as of this encounter
--- OUTSIDE RECORDS SUMMARY | 2025-04-13 20:28 | XMS_ITS | Encounter Summary ---
Author Organization [facility] Address [address] [place] [address] Care Team Providers Care Jig Builder Helper Name Role Phone Arabella Orta MD Primary Care Provider +1- [phone] Encounter Details Date Type Department Care Team (Latest Contact Info) Description 03/05/1999 Outpatient Historical [facility] Mario Martínez Jr., MD [address] [place] [address] Osteoarthrosis, unspecified whether generalized or localized, unspecified site (Primary Dx); Irritable bowel syndrome Social History Tobacco Use Types Packs/Day Years Used Date Smoking Tobacco: Never Assessed Comments Unknown Sex and Gender Information Value Date Recorded Sex Assigned at Not on file Legal Sex Female 3:46 AM INTEGRATED CIRCUIT FABRICATOR Gender Identity Not on file Sexual Orientation Not on file documented as of this encounter Plan of Treatment Not on file documented as of this encounter Visit Diagnoses Diagnosis Osteoarthrosis, unspecified whether generalized or localized, unspecified site- Primary Irritable bowel syndrome documented in this encounter Care Teams Jig Builder Helper Relationship Specialty Start Date End Date Arabella Orta MD [address] [place] [address] PCP - General Family Practice 03/03/12 documented as of this encounter
--- OUTSIDE RECORDS SUMMARY | 2025-04-13 20:28 | XMS_ITS | Encounter Summary ---
Author Organization [employer] [facility] Address [address] [place] [address] Care Team Providers Care Medical Office Coordinator Name Role Phone Arabella Orta MD Primary Care Provider +1- [phone] Encounter Details Date Type Department Care Team (Latest Contact Info) Description 07/18/2001 Outpatient Historical [facility] Feliz Kim MD [address] [facility] [address] [place] [address] GASTRITIS NEC W HEMORRH (Primary Dx); MELENA, BLOOD IN STOOL; ABDOMINAL PAIN EPIGASTRIC; PERSN W FEARED COMPLAINT; ABN BLOOD CHEMISTRY NEC; HYPOTHYROIDISM NOS Social History Tobacco Use Types Packs/Day Years Used Date Smoking Tobacco: Never Assessed Comments Unknown Sex and Gender Information Value Date Recorded Sex Assigned at Not on file Legal Sex Female 3:46 AM SWIMMING TEACHER Gender Identity Not on file Sexual [...] hypothyroidism documented in this encounter Care Teams Medical Office Coordinator Relationship Specialty Start Date End Date Arabella Orta MD [address] [place] [address] PCP - General Family Practice 03/03/12 documented as of this encounter
--- OUTSIDE RECORDS SUMMARY | 2025-04-13 20:28 | XMS_ITS | Encounter Summary ---
Author Organization [facility] Address [address] [place] [address] Care Team Providers Care Downstream Biomanufacturing Technician Name Role Phone Arabella Orta MD Primary Care Provider +1- [phone] Encounter Details Date Type Department Care Team (Latest Contact Info) Description 07/27/2001 Outpatient Historical [facility] Mario Martínez Jr., MD [address] [place] [address] DIABETES UNCOMPL ADULT-TYPE II (CMS/HCC) (Primary Dx); HYPERTENSION NOS Social History Tobacco Use Types Packs/Day Years Used Date Smoking Tobacco: Never Assessed Comments Unknown Sex and Gender Information Value Date Recorded Sex Assigned at Not on file Legal Sex Female 3:46 AM DOWNSTREAM BIOMANUFACTURING TECHNICIAN Gender Identity Not on file Sexual Orientation Not on file documented as of this encounter Plan of Treatment Not on file documented as of this encounter Visit Diagnoses Diagnosis Type II or unspecified type diabetes mellitus without mention of complication, not stated as uncontrolled- Primary Unspecified essential hypertension documented in this encounter Care Teams Downstream Biomanufacturing Technician Relationship Specialty Start Date End Date Arabella Orta MD [address] [place] [address] PCP - General Family Practice 03/03/12 documented as of this encounter
--- OUTSIDE RECORDS SUMMARY | 2025-04-13 20:28 | XMS_ITS | Encounter Summary ---
Author Organization [employer] [facility] Address [address] [place] [address] Care Team Providers Care Senior Php Software Developer Name Role Phone Arabella Orta MD Primary Care Provider +1- [phone] Encounter Details Date Type Department Care Team (Latest Contact Info) Description 04/08/2000 Outpatient Historical [facility] Mario Martínez Jr., MD [address] [place] [address] Osteoarthrosis, unspecified whether generalized or localized, unspecified site (Primary Dx); Disorders of porphyrin metabolism Social History Tobacco Use Types Packs/Day Years Used Date Smoking Tobacco: Never Assessed Comments Unknown Sex and Gender Information Value Date Recorded Sex Assigned at Not on file Legal Sex Female 3:46 AM LOOM OVERHAULER Gender Identity Not on file Sexual Orientation Not on file documented as of this encounter Plan of Treatment Not on file documented as of this encounter Visit Diagnoses Diagnosis Osteoarthrosis, unspecified whether generalized or localized, unspecified site- Primary Disorders of porphyrin metabolism documented in this encounter Care Teams Senior Php Software Developer Relationship Specialty Start Date End Date Arabella Orta MD [address] [place] [address] PCP - General Family Practice 03/03/12 documented as of this encounter
[2025-04-13 20:29] VITALS: BP 137/51; PULSE 104; RESP 18; TEMP 36.7; O2SAT 96; BMI 40.1
--- OUTSIDE RECORDS SUMMARY | 2025-04-13 20:29 | XMS_ITS | Encounter Summary ---
Author Organization [facility] Address [address] [place] [address] Care Team Providers Care Entry Clerk Name Role Phone Arabella Orta MD Primary Care Provider +1- [phone] Encounter Details Date Type Department Care Team (Latest Contact Info) Description 11/15/2000 Outpatient Historical [facility] Mario Martínez Jr., MD [address] [place] [address] Abdominal pain, unspecified site (Primary Dx); Unspecified essential hypertension; Irritable bowel syndrome Social History Tobacco Use Types Packs/Day Years Used Date Smoking Tobacco: Never Assessed Comments Unknown Sex and Gender Information Value Date Recorded Sex Assigned at Not on file Legal Sex Female 3:46 AM SWAGER OPERATOR Gender Identity Not on file Sexual Orientation Not on file documented as of this encounter Plan of Treatment Not on file documented as of this encounter Visit Diagnoses Diagnosis Abdominal pain, unspecified site- Primary Unspecified essential hypertension Irritable bowel syndrome documented in this encounter Care Teams Entry Clerk Relationship Specialty Start Date End Date Arabella Orta MD [address] [place] [address] PCP - General Family Practice 03/03/12 documented as of this encounter
--- OUTSIDE RECORDS SUMMARY | 2025-04-13 20:29 | XMS_ITS | Clinical Summary ---
Author Organization [facility] Address [address] [facility] Attn: [place] [address] Care Team Providers Care Office Administration Name Role Phone Arabella Orta MD Primary Care Provider +1- [phone] Allergies Active Allergy Reactions Criticality Noted Date [...] on file Legal Sex Female 11:58 PM HOT BRAIDER Gender Identity Not on file Sexual Orientation [...] 2018 INFLUENZA VACCINE (#1) 2024 Care Teams Office Administration Relationship Specialty Start Date End Date Araeblla Orta MD [address] [place] [address] PCP - General Family Practice 03/03/12
--- OUTSIDE RECORDS SUMMARY | 2025-04-13 20:29 | XMS_ITS | Encounter Summary ---
Author Organization [employer] [facility] Address [address] [place] [address] Care Team Providers Care Microfilm Equipment Inspector Name Role Phone Arabella Orta MD Primary Care Provider +1- [phone] Encounter Details Date Type Department Care Team (Latest Contact Info) Description 07/06/2000 Outpatient Historical [facility] Mario Martínez Jr., MD [address] [place] [address] Other B-complex deficiencies (Primary Dx) Social History Tobacco Use Types Packs/Day Years Used Date Smoking Tobacco: Never Assessed Comments Unknown Sex and Gender Information Value Date Recorded Sex Assigned at Not on file Legal Sex Female 3:46 AM DISABILITY RATER Gender Identity Not on file Sexual Orientation Not on file documented as of this encounter Plan of Treatment Not on file documented as of this encounter Visit Diagnoses Diagnosis Other B-complex deficiencies- Primary documented in this encounter Care Teams Microfilm Equipment Inspector Relationship Specialty Start Date End Date Arabella Orta MD [address] [place] [address] PCP - General Family Practice 03/03/12 documented as of this encounter
--- OUTSIDE RECORDS SUMMARY | 2025-04-13 20:29 | XMS_ITS | Encounter Summary ---
Author Organization [employer] [facility] Address [address] [place] [address] Care Team Providers Care Family And Consumer Sciences Professor Name Role Phone Arabella Orta MD Primary Care Provider +1- [phone] Encounter Details Date Type Department Care Team (Latest Contact Info) Description 06/03/2000 Outpatient Historical [facility] Mario Martínez Jr., MD [address] [place] [address] Intermediate coronary syndrome (CMS/HCC) (Primary Dx) Social History Tobacco Use Types Packs/Day Years Used Date Smoking Tobacco: Never Assessed Comments Unknown Sex and Gender Information Value Date Recorded Sex Assigned at Not on file Legal Sex Female 3:46 AM METEOROLOGICAL EQUIPMENT REPAIRER Gender Identity Not on file Sexual Orientation Not on file documented as of this encounter Plan of Treatment Not on file documented as of this encounter Visit Diagnoses Diagnosis Intermediate coronary syndrome (CMS/HCC)- Primary Intermediate coronary syndrome documented in this encounter Care Teams Family And Consumer Sciences Professor Relationship Specialty Start Date End Date Arabella Orta MD [address] [place] [address] PCP - General Family Practice 03/03/12 documented as of this encounter
--- OUTSIDE RECORDS SUMMARY | 2025-04-13 20:29 | XMS_ITS | Encounter Summary ---
Author Organization [facility] Address [address] [place] [address] Care Team Providers Care Casino Gaming Worker Name Role Phone Arabella Orta MD Primary Care Provider +1- [phone] Encounter Details Date Type Department Care Team (Late st Contact Info) Description 12/10/2006 Outpatient [facility] [address] [place] [id number] Social History Tobacco Use Types Packs/Day Years Used Date Smoking Tobacco: Never Assessed Comments Unknown Sex and Gender Information Value Date Recorded Sex Assigned at Not on file Legal Sex Female 3:46 AM MANAGER MAINTENANCE Gender Identity Not on file Sexual Orientation Not on file documented as of this encounter Plan of Treatment Not on file documented as of this encounter Visit Diagnoses Not on filedocumented in this encounter Care Teams Casino Gaming Worker Relationship Specialty Start Date End Date Arabella Orta MD [address] [place] [address] PCP - General Family Practice 03/03/12 documented as of this encounter
--- OUTSIDE RECORDS SUMMARY | 2025-04-13 20:29 | XMS_ITS | Encounter Summary ---
Author Organization [facility] Address [address] [place] [address] Care Team Providers Care Recreation Professor Name Role Phone Arabella Orta MD Primary Care Provider +1- [phone] Encounter Details Date Type Department Care Team (Latest Contact Info) Description 06/23/2000 Outpatient Historical [facility] Mario Martínez Jr., MD [address] [place] [address] Irritable bowel syndrome (Primary Dx); Unspecified hereditary and idiopathic peripheral neuropathy; Anxiety state, unspecified Social History Tobacco Use Types Packs/Day Years Used Date Smoking Tobacco: Never Assessed Comments Unknown Sex and Gender Information Value Date Recorded Sex Assigned at Not on file Legal Sex Female 3:46 AM STONE CHIMNEY MASON Gender Identity Not on file Sexual Orientation Not on file documented as of this encounter Plan of Treatment Not on file documented as of this encounter Visit Diagnoses Diagnosis Irritable bowel syndrome- Primary Unspecified hereditary and idiopathic peripheral neuropathy Anxiety state, unspecified documented in this encounter Care Teams Recreation Professor Relationship Specialty Start Date End Date Arabella Orta MD [address] [place] [address] PCP - General Family Practice 03/03/12 documented as of this encounter
--- OUTSIDE RECORDS SUMMARY | 2025-04-13 20:29 | XMS_ITS | Encounter Summary ---
Author Organization [employer] [address] [employer] [facility] Address [address] [place] [address] Care Team Providers Care System Developer Associate Manager Name Role Phone Arabella Orta MD Primary Care Provider +1- [phone] Encounter Details Date Type Department Care Team (Latest Contact Info) Description 11/01/2000 Outpatient Historical [facility] Mario Martínez Jr., MD [address] [place] [address] Hematuria (Primary Dx); Abdominal pain, unspecified site; Irritable bowel syndrome Social History Tobacco Use Types Packs/Day Years Used Date Smoking Tobacco: Never Assessed Comments Unknown Sex and Gender Information Value Date Recorded Sex Assigned at Not on file Legal Sex Female 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
--- OUTSIDE RECORDS SUMMARY | 2025-04-13 20:29 | XMS_ITS | Encounter Summary ---
Author Organization [employer] [facility] Address [address] [place] [address] Care Team Providers Care Dopster Name Role Phone Arabella Orta MD Primary Care Provider +1- [phone] Encounter Details Date Type Department Care Team (Latest Contact Info) Description 06/07/2000 Outpatient Historical [facility] Mario Martínez Jr., MD [address] [place] [address] Impacted cerumen (Primary Dx); Acute sinusitis, unspecified; Generalized anxiety disorder Social History Tobacco Use Types Packs/Day Years Used Date Smoking Tobacco: Never Assessed Comments Unknown Sex and Gender Information Value Date Recorded Sex Assigned at Not on file 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
--- OUTSIDE RECORDS SUMMARY | 2025-04-13 20:29 | XMS_ITS | Encounter Summary ---
Author Organization [employer] [facility] Address [address] [place] [address] Care Team Providers Care Safe And Vault Service Mechanic Name Role Phone Arabella Orta MD Primary Care Provider +1- [phone] Encounter Details Date Type Department Care Team (Latest Contact Info) Description 10/15/2000 Outpatient Historical [facility] Ethan Dorsey NO ADDRESS ON FILE Abdominal pain, unspecified site (Primary Dx); Myalgia and myositis, unspecified Social History Tobacco Use Types Packs/Day Years Used Date Smoking Tobacco: Never Assessed Comments Unknown Sex and Gender Information Value Date Recorded Sex Assigned at Not on file Legal Sex Female 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
--- OUTSIDE RECORDS SUMMARY | 2025-04-13 20:29 | XMS_ITS | Encounter Summary ---
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 Gender Identity Not on file Sexual [...] TESTING Shital l Result Performing Organization Address [facility] Co de Phone Number INTERFACE SYSTEM Refer to clinic/hospital department * (ABNORMAL) POC GLUCOSE (03/18/2006 8:56 PM CDT) GLUCOSE POC 143(H) 60 - 100 mg/dL INTERFACE SYSTEM COMMENT POC Notify R.N INTERFA CE SYSTEM 03/18/2006 8:56 PM CDT Mathew Sandoval MD POINT OF CARE TESTING Shital l Result Performing Organization Address [facility] Co de Phone Number INTERFACE SYSTEM Refer to clinic/hospital department * (ABNORMAL) POC GLUCOSE (03/18/2006 6:08 PM CDT) GLUCOSE POC 167(H) 60 - 100 mg/dL INTERFACE SYSTEM COMMENT POC Notify R.N INTERFA CE SYSTEM 03/18/2006 6:08 PM CDT Mathew Sandoval MD POINT OF CARE TESTING Shital l Result Performing Organization Address City/[facility] Co de Phone Number INTERFACE SYSTEM Refer to clinic/hospital department * (ABNORMAL) POC GLUCOSE (03/18/2006 1:00 PM CDT) GLUCOSE POC 123(H) 60 - 100 mg/dL INTERFACE SYSTEM 03/18/2006 1:00 PM CDT Mathew Sandoval MD POINT OF CARE TESTING Shital l Result Performing Organization Address [facility] Phone Number INTERFACE SYSTEM Refer to clinic/hospital department * (ABNORMAL) POC GLUCOSE (03/18/2006 8:18 AM CDT) GLUCOSE POC 151(H) 60 - 100 mg/dL INTERFACE SYSTEM 03/18/2006 8:1 8 AM CDT Mathew Sandoval MD POINT OF CARE TESTING Shital l Result Performing Organization Address [facility] Phone Number INTERFACE SYSTEM Refer to clinic/hospital department * (ABNORMAL) POC GLUCOSE (03/18/2006 6:06 AM CDT) GLUCOSE POC 133(H) 60 - 100 mg/dL INTERFACE SYSTEM 03/18/2006 6:06 AM CDT Mathew Sandoval MD POINT OF CARE TESTING Shital l Result Performing Organization Address City/[facility] Co de Phone Number INTERFACE SYSTEM Refer to clinic/hospital department * (ABNORMAL) POC GLUCOSE (03/17/2006 9:26 PM CDT) GLUCOSE POC 204(H) 60 - 100 mg/dL INTERFACE SYSTEM 03/17/2006 9:26 PM CDT Mathew Sandoval MD POINT OF CARE TESTING Shital l Result Performing Organization Address [facility] Phone Number INTERFACE SYSTEM Refer to clinic/hospital department * POC GLUCOSE (03/17/2006 6:08 PM CDT) GLUCOSE POC 92 60 - 100 mg/dL INTERFACE SYSTEM 03/17/2006 6:08 PM CDT Mathew Sandoval MD POINT OF CARE TESTING Shital l Result Performing Organization Address [facility] Phone Number INTERFACE SYSTEM Refer to [...] ORDERABLES Final Res ult Performing Organization Address [facility] Phone Number INTERFACE SYSTEM Refer to clinic/hospital department * (ABNORMAL) GLUCOSE URINALYSIS, QUALITATIVE (03/17/2006 3:05 PM CDT) GLUCOSE, URINE 100 mg/dl(A) Negative INTERFACE SYSTEM 03/17/2006 3:05 PM CDT Mathew Sandoval MD URINE ORDERABLES Final Res ult Performing Organization Address [facility] Phone Number INTERFACE SYSTEM Refer to clinic/hospital department * (ABNORMAL) URINALYSIS (03/17/2006 3:05 PM CDT) COLOR UA Yellow Straw INTERFACE SYSTEM CLARITY UA Clear Clear INTERFACE SYSTEM LEUKOCYTE ESTERASE UA Trace(A) NEGATIVE INTERFACE SYSTEM NITRITE UA NEGATIVE NEGATIVE INTERFACE SYSTEM PH UA 6.0 5.0 - 9.0 INTERFACE SYSTEM PROTEIN UA NEGATIVE NEGATIVE INTERFACE SYSTEM Comment: As of 04 positive protein results obtained on routine urinalysis [...] ORDERABLES Final Res ult Performing Organization Address [facility] Phone Number INTERFACE SYSTEM Refer to clinic/hospital department * (ABNORMAL) POC GLUCOSE (03/17/2006 11:57 AM CDT) GLUCOSE POC 196(H) 60 - 100 mg/dL INTERFACE SYSTEM COMMENT POC Notify R.N INTERFA CE SYSTEM 03/17/2006 11:5 7 AM CDT Mathwe Sandoval MD POINT OF CARE TESTING Shital l Result Performing Organization Address [facility] Phone Number INTERFACE SYSTEM Refer to clinic/hospital department * (ABNORMAL) POC GLUCOSE (03/17/2006 7:55 AM CDT) GLUCOSE POC 179(H) 60 - 100 mg/dL INTERFACE SYSTEM COMMENT POC Notify R.N INTERFA CE SYSTEM 03/17/2006 7:55 AM CDT Mathew Sandoval MD POINT OF CARE TESTING Shital l Result Performing Organization Address [facility] Phone Number INTERFACE SYSTEM Refer to clinic/hospital department * (ABNORMAL) POC GLUCOSE (03/16/2006 9:46 PM CDT) GLUCOSE POC 245(H) 60 - 100 mg/dL INTERFACE SYSTEM 03/16/2006 9:46 PM CDT Mathew Sandoval MD POINT OF CARE TESTING Shital l Result Performing Organization Address City/[facility] Co de Phone Number INTERFACE SYSTEM Refer to clinic/hospital department * (ABNORMAL) POC GLUCOSE (03/16/2006 6:14 PM CDT) GLUCOSE POC 134(H) 60 - 100 mg/dL INTERFACE SYSTEM 03/16/2006 6:14 PM CDT Mathew Sandoval MD POINT OF CARE TESTING Shital l Result Performing Organization Address [facility] de Phone Number INTERFACE SYSTEM Refer to clinic/hospital department * CANCER ANTIGEN 125 (03/16/2006 5:25 PM CDT) CA 125 See Sep Report INTERFACE SYSTEM 03/16/2006 5:25 PM CDT Mathew Sandoval MD CHEMISTRY ORDERABLES Final Result Performing Organization Address City/[facility] Co de Phone Number INTERFACE SYSTEM Refer to clinic/hospital department * (ABNORMAL) POC GLUCOSE (03/16/2006 12:35 PM CDT) GLUCOSE POC 203(H) 60 - 100 mg/dL INTERFACE SYSTEM COMMENT POC Notify R.N INTERFA CE SYSTEM 03/16/2006 12:3 5 PM CDT Mathew Sandoval MD POINT OF CARE TESTING Shital l Result Performing Organization Address City/State/[facility] Co de Phone Number INTERFACE SYSTEM Refer to clinic/hospital department * (ABNORMAL) POC GLUCOSE (03/16/2006 8:11 AM CDT) GLUCOSE POC 146(H) 60 - 100 mg/dL INTERFACE SYSTEM 03/16/2006 8:11 AM CDT Mathew Sandoval MD POINT OF CARE TESTING Shital l Result Performing Organization Address [facility] Phone Number INTERFACE SYSTEM Refer to clinic/hospital department * (ABNORMAL) POC GLUCOSE (03/15/2006 9:40 PM CDT) GLUCOSE POC 254(H) 60 - 100 mg/dL INTERFACE SYSTEM 03/15/2006 9:40 PM CDT Mathew Sandoval MD POINT OF CARE TESTING Shital l Result Performing Organization Address [facility] Phone Number INTERFACE SYSTEM Refer to clinic/hospital department * (ABNORMAL) POC GLUCOSE (03/15/2006 5:14 PM CDT) GLUCOSE POC 154(H) 60 - 100 mg/dL INTERFACE SYSTEM 03/15/2006 5:14 PM CDT Mathew Sandoval MD POINT OF CARE TESTING Shital l Result Performing Organization Address [facility] Phone Number INTERFACE SYSTEM Refer to clinic/hospital department * (ABNORMAL) POC GLUCOSE (03/15/2006 11:18 AM CDT) GLUCOSE POC 124(H) 60 - 100 mg/dL INTERFACE SYSTEM 03/15/2006 11:1 8 AM CDT Mathew Sandoval MD POINT OF CARE TESTING Shital l Result Performing Organization Address [facility] Phone Number INTERFACE SYSTEM Refer to clinic/hospital department * CREATININE (03/15/2006 7:01 AM CDT) CREATININE 0.8 0.7 - 1.2 mg/dL INTERFACE SYSTEM 03/15/2006 7:01 AM CDT Mathew Sandoval MD CHEMISTRY ORDERABLES Final Result Performing Organization Address [facility] Phone Number INTERFACE SYSTEM Refer to clinic/hospital department * (ABNORMAL) POC GLUCOSE (03/15/2006 6:11 AM CDT) GLUCOSE POC 136(H) 60 - 100 mg/dL INTERFACE SYSTEM 03/15/2006 6:11 AM CDT Mathew Sandoval MD POINT OF CARE TESTING Shital l Result Performing Organization Address City/[facility]/ZIP Co de Phone Number INTERFACE SYSTEM Refer to clinic/hospital department * (ABNORMAL) POC GLUCOSE (03/14/2006 9:39 PM CDT) GLUCOSE POC 135(H) 60 - 100 mg/dL INTERFACE SYSTEM 03/14/2006 9:39 PM CDT Mathew Sandoval MD POINT OF CARE TESTING Shital l Result Performing Organization Address [facility] Co pr Phone Number INTERFACE SYSTEM Refer to clinic/hospital department * (ABNORMAL) POC GLUCOSE (03/14/2006 5:35 PM CDT) GLUCOSE POC 141(H) 60 - 100 mg/dL INTERFACE SYSTEM 03/14/2006 5:35 PM CDT Mathew Sandoval MD POINT OF CARE TESTING Shital l Result Performing Organization Address [facility] Co pr Phone Number INTERFACE SYSTEM Refer to clinic/hospital department * (ABNORMAL) POC GLUCOSE (03/14/2006 11:27 AM CDT) GLUCOSE POC 195(H) 60 - 100 mg/dL INTERFACE SYSTEM 03/14/2006 11:2 7 AM CDT us Mathew Sandoval MD POINT OF CARE TESTING Shital l Result Performing Organization Address City/State/[facility] Co de Phone Number INTERFACE SYSTEM Refer to clinic/hospital department * (ABNORMAL) POC GLUCOSE (03/14/2006 7:32 AM CDT) GLUCOSE POC 121(H) 60 - 100 mg/dL INTERFACE SYSTEM 03/14/2006 7:32 AM CDT Mathew Sandoval MD POINT OF CARE TESTING Shital l Result Performing Organization Address City/[facility]/ZIP Co de Phone Number INTERFACE SYSTEM Refer to clinic/hospital department * (ABNORMAL) POC GLUCOSE (03/13/2006 9:44 PM CDT) GLUCOSE POC 232(H) 60 - 100 mg/dL INTERFACE SYSTEM 03/13/2006 9:44 PM CDT Mathew Sandoval MD POINT OF CARE TESTING Shital l Result Performing Organization Address [facility] de Phone Number INTERFACE SYSTEM Refer to [...] INTERFACE SYSTEM Comment: As of 05 the [facility] has changed testing methods. The new reference range is 25-100 The old referance range was 38-126 AST 25 8 - 33 U/L INTERFACE SYSTEM Comment: As of 05 the [facility] has changed testing methods. The new reference range is 8-33 The old referance range was Males 17-59 Females 14-36 ALT 31 4 - 36 IU/L INTERFACE SYSTEM Comment: As of 05 the [facility] has changed testing methods. The new reference range is 4-36 The old referance range was Males 21-72 Females 9-52 BILIRUBIN TOTAL 0.4 0.3 - 1.2 mg/dL INTERFACE SYSTEM Comment: As of 05 the [facility] has changed testing methods. The new reference range is 0.3-1.2 The old referance range was 0.2-1.4 03/13/2006 6:39 PM CDT [facility] Oseas Franco MD CHEMISTRY ORDERABLES Final R [...] 0.0 - 0.2 K/ul INTERFACE SYSTEM 03/13/2006 5:30 PM CDT Cecilia Franco MD HEMATOLOGY ORDERABLES [...] By: Jered Meneses M.D. Date Signed: 03/19/06 Mathew Sandoval MD MR ORDERABLES Final Resu [...] By: Wes Torre M.D. Date Signed: 03/18/06 [facility] Procedure Note 04/12/2009 SMALL-BOWEL STUDY: FINDINGS: Following [...] By: Wes Torre M.D. Date Signed: 03/18/06 [facility] Procedure Note 04/12/2009 Mesenteric Doppler Ultrasound [...] By: Wes Torre M.D. Date Signed: 03/18/06 [facility] us Mathew Sandoval MD US ORDERABLES [...] Primary documented in this encounter Care Teams Medical Secretary Teacher Relationship Specialty Start Date End Date Arabella Orta MD [address] [place] [address] PCP - General Family Practice 03/03/12 documented as of this encounter
--- OUTSIDE RECORDS SUMMARY | 2025-04-13 20:29 | XMS_ITS | Encounter Summary ---
Author Organization [employer] [facility] Address [address] [place] [address] Care Team Providers Care Brick Cleaner Name Role Phone Arabella Orta MD Primary Care Provider +1- [phone] Encounter Details Date Type Department Care Team (Latest Contact Info) Description 08/23/2000 Outpatient Historical [facility] Mario Martínez Jr., MD [address] [place] [address] Other B-complex deficiencies (Primary Dx); Obesity, unspecified Social History Tobacco Use Types Packs/Day Years Used Date Smoking Tobacco: Never Assessed Comments Unknown Sex and Gender Information Value Date Recorded Sex Assigned at Not on file 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
--- OUTSIDE RECORDS SUMMARY | 2025-04-13 20:29 | XMS_ITS | Encounter Summary ---
Author Organization [employer] [facility] Address [address] [place] [address] Care Team Providers Care Field Technical Assistant Name Role Phone Arabella Orta MD Primary Care Provider +1- [phone] Encounter Details Date Type Department Care Team (Latest Contact Info) Description 07/23/2000 Outpatient Historical [facility] Mario Martínez Jr., MD [address] [place] [address] Irritable bowel syndrome (Primary Dx); Myalgia and myositis, unspecified; Osteoarthrosis, unspecified whether generalized or localized, unspecified site; Other B-complex deficiencies Social History Tobacco Use Types Packs/Day Years Used Date Smoking Tobacco: Never Assessed Comments Unknown Sex and Gender Information Value Date Recorded Sex Assigned at Not on file 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 Gender Identity Not on file Sexual Orientation Not on file documented as of this encounter Plan of Treatment Not on file documented as of this encounter Visit Diagnoses Diagnosis Irritable bowel syndrome- Primary Myalgia and myositis, unspecified Mylagia and myositis, unspecified Osteoarthrosis, unspecified whether generalized or localized, unspecified site Other B-complex deficiencies documented in this encounter Care Teams Field Technical Assistant Relationship Specialty Start Date End Date Arabella Orta MD [address] [place] [address] PCP - General Family Practice 03/03/12 documented as of this encounter
--- NOTE | 2025-04-13 20:35 | ECG_ITS ---
[facility] Test Date: 2025-04-13 Pat Name: Brandi Berg Department: Room: Gender: Female Director Of Rehabilitation And Wellness: : 1945 Requested By: Rufino Berrios Order Number: [id number] Gamal MD: Gilma Cai M.D. Measurements Intervals Fertile Rate: 102 P: 41 PA: 141 QRS: -43 QRSD: 109 T: 74 QT: 330 QTc: 432 Interpretive Statements SINUS TACHYCARDIA LEFT AXIS DEVIATION [QRS AXIS < -30] NONSPECIFIC T-WAVE ABNORMALITY Compared to ECG 12/01/2024 11:40:15 Left-axis deviation now present Sinus rhythm no longer present T-wave abnormality still present Electronically Signed On 04-14-2025 14:18:21 CHEMICAL PROCESSING TECHNICIAN by Gilma Cai M.D. [email or web address]
[2025-04-13 20:41] VITALS: BP 137/51; PULSE 104; RESP 18; TEMP 36.7; O2SAT 96
--- NOTE | 2025-04-13 21:00 | XRR_ITS ---
PROCEDURE INFORMATION: Exam: XR Right Tibia and Fibula Exam date and time: 04/13/2025 9:13 PM Age: 79 years old Clinical indication: Lower leg; Right; C/O bilateral lower extremity pain due to cellulitis. ; Additional info: Worsening le cellulitis TECHNIQUE: Imaging protocol: Radiologic exam of the right tibia and fibula. Views: 2 views. COMPARISON: CT angio abd aorta runof [id number] 04/12/2023 7:16 AM FINDINGS: Bones/joints: Mild osseous demineralization. No evidence of acute fracture or dislocation. No cortical destruction or other plain film evidence of osteomyelitis. Soft tissues: Diffuse soft tissue swelling/edema around small subcutaneous calcifications likely vascular in origin. XR/XR tibia fibula RT 2V [id number] IMPRESSION: Diffuse soft tissue swelling/edema without evidence of underlying osseous pathology.
--- NOTE | 2025-04-13 21:00 | XRR_ITS ---
PROCEDURE INFORMATION: Exam: XR Chest Exam date and time: 04/13/2025 9:12 PM Age: 79 years old Clinical indication: Chest pressure; C/O chest pain; Additional info: Cp TECHNIQUE: Imaging protocol: Radiologic exam of the chest. Views: 1 view. COMPARISON: CR XR chest 1V portable [id number] 12/01/2024 9:59 AM FINDINGS: Lungs: No pulmonary consolidation. Stable left mid lung zone atelectasis or scarring. Pleural spaces: No pleural effusion or pneumothorax. Heart/Mediastinum: Heart size is within normal limits. Vasculature: Atherosclerotic calcifications of the aorta are noted. Bones/joints: No acute osseous abnormalities are seen. Chronic appearing bilateral posterior rib fractures. XR/XR chest 1V portable [id number] IMPRESSION: No acute cardiopulmonary disease.
--- NOTE | 2025-04-13 21:00 | XRR_ITS ---
PROCEDURE INFORMATION: Exam: XR Left Tibia and Fibula Exam date and time: 04/13/2025 9:17 PM Age: 79 years old Clinical indication: Lower leg; Left; C/O bilateral lower extremity pain due to cellulitis. ; Additional info: Worsening le cellulitis TECHNIQUE: Imaging protocol: Radiologic exam of the left tibia and fibula. Views: 2 views. COMPARISON: CT angio abd aorta runof [id number] 04/12/2023 7:16 AM FINDINGS: Bones/joints: Diffuse osseous demineralization. Normal alignment. No evidence of acute fracture or dislocation. No cortical destruction or other plain film evidence of osteomyelitis. Soft tissues: Mild diffuse soft tissue swelling and subcutaneous edema. XR/XR tibia fibula LT 2V [id number] IMPRESSION: Mild diffuse edema without evidence of acute underlying osseous abnormality.
[2025-04-13 21:05] VITALS: BP 135/50; PULSE 97; RESP 18; O2SAT 94
[2025-04-13 21:08] LABS: Hematocrit 37.7 % (36-47); Hemoglobin 12.30 g/dL (11.27-16.99); Mean Corpuscular HGB Conc 32.6 g/dL (30-55); Mean Corpuscular Hemoglobin 28.7 pg (27-33); Mean Corpuscular Volume 88.1 fl (85-98); Nucleated Red Blood Cells % 0 %; Platelet Count 202 10^3/cmm (157-399); Red Blood Count 4.28 10^6/uL (3.85-5.65); White Blood Count 7.97 10^3/uL (3.29-11.43)
[2025-04-13 21:21] LABS: Troponin(5th) Baseline 21 ng/L (0-10)
[2025-04-13 21:31] LABS: Alanine Aminotransferase 25 U/L (0-33); Albumin Level 3.6 g/dL (3.5-5.2); Alkaline Phosphatase 160 U/L (35-105); Anion Gap 18.2 (5-19); Aspartate Amino Transferase 28 U/L (0-32); Blood Urea Nitrogen 23 mg/dL (8-23); Calcium 9.8 mg/dL (8.5-10.5); Carbon Dioxide 24 mmol/L (22-29); Chloride 97 mmol/L (98-107); Globulin 3.5 g/dL (1.3-4.6); Glucose 366 mg/dL (65-115); Lipase 14 U/L (13-60); Magnesium 1.9 mg/dL (1.7-2.3); NT Pro B Type Natriuretic Pept 74 pg/mL (0-450); Osmolality Calculated 297 mOsm/kg (285-295); Potassium 5.2 mmol/L (3.5-5.1); Sodium 134 mmol/L (136-145); Total Protein 7.1 g/dL (6.6-8.7)
--- NOTE | 2025-04-13 21:53 | W.ED.EXTPRO ---
HPI - Extremity Problem General: Chief complaint: Extremity Injury, Lower Stated complaint: cp Time Seen by Provider: 04/13/25 20:30 History of Present Illness: Patient is an adult female with a history of coronary artery disease s/p PCI, hypertension, CHF, diabetes who presents with chronic bilateral lower extremity pain and cramping, described as persistent, waxing and waning in severity. She has chronic venous stasis and chronic cellulitis she states, she has not recently been on antibiotics, she states they are not more swollen, red, warm than her baseline. She uses a walker and wheelchair for mobility and requires significant assistance with activities of daily living. She also reports a recent episode of chest pain radiating to the back, which has mostly resolved and is suspected to be indigestion; she took a large dose of antacid with improvement. She denies recent antibiotic use and blood thinners, and has no history of deep vein thrombosis except for a remote superficial clot. Associated symptoms: Reports chest pain Related Data Home Medications ?Medication ?Instructions ?Recorded ?Confirmed cholecalciferol (vitamin D3) 25 1,000 unit PO QPM 06/01/19 02/20/25 mcg (1,000 unit) capsule cranberry 500 mg capsule 500 mg PO QPM 06/01/19 02/20/25 magnesium oxide 400 mg (241.3 mg 500 mg PO DAILY@12 02/14/21 02/20/25 magnesium) tablet ascorbic acid (vitamin C) 500 mg 500 mg PO QNOON 11/14/21 02/20/25 chewable tablet (Vitamin C) vitamin E 670 mg (1,000 unit) 1,000 unit PO QAM 11/14/21 02/20/25 capsule esomeprazole magnesium 40 mg 40 mg PO QAM 05/19/22 02/20/25 capsule,delayed release potassium chloride 8 mEq 24 meq PO QAM 05/19/22 02/20/25 capsule,extended release lactulose 10 gram/15 mL oral 15 ml PO DAILY PRN Constipation 06/23/23 02/20/25 solution melatonin 3 mg capsule 3 mg PO BEDTIME 11/18/23 02/20/25 amlodipine 10 mg tablet 10 mg PO DAILY 06/09/24 02/20/25 Held on 12/05/24. Instructions: Patient No Longer Taking torsemide 20 mg tablet 20 mg PO BID 06/09/24 02/20/25 valsartan 320 mg tablet 320 mg PO QPM 06/09/24 02/20/25 Previous Rx's ?Medication ?Instructions ?Recorded blood sugar diagnostic #400 ea 09/02/21 lancets 21 gauge (Comfort EZ #400 ea 09/02/21 Lancets) blood sugar diagnostic (Easymax 15 #400 ea 09/11/21 test strips) flash glucose scanning reader #1 ea 02/17/22 (FreeStyle Tor 2 [place]) flash glucose sensor (FreeStyle #3 ea 02/17/22 Tor 2 Sensor kit) nitroglycerin 0.4 mg sublingual 0.4 mg sublingual Q5M PRN chest 08/04/23 tablet pain 30 days #30 tabs dhaval LT knee Brace #1 ea 06/30/24 aripiprazole 2 mg tablet See Rx Instructions .Route 08/07/24 .COMPLEX #30 tabs diclofenac sodium 1 % topical gel 4 g topical QID #100 grams 08/09/24 hinged knee brace left #1 ea 08/09/24 sodium chloride 1,000 mg soluble 1,000 mg PO DAILY #30 tabs 08/29/24 tablet isosorbide mononitrate 120 mg 120 mg PO DAILY@12 #90 tabs 10/13/24 tablet,extended release 24 hr trimethoprim 100 mg tablet 100 mg PO Q12H 10 days #20 tabs 01/12/25 pen needle, diabetic 31 gauge x #400 ea 01/19/25 3/16 carvedilol 3.125 mg tablet See Rx Instructions .Route 01/30/25 .COMPLEX #180 tabs insulin degludec 200 unit/mL (3 25 unit (0.125 mL) SUBCUT BID #9 mL 02/05/25 mL) subcutaneous pen (Tresiba FlexTouch U-200 insulin) insulin lispro 100 unit/mL See Rx Instructions .Route 02/19/25 subcutaneous pen .COMPLEX #45 mL hydrocortisone 10 mg tablet 10 mg PO QID 90 days #360 tabs 02/20/25 oxycodone 10 mg tablet 10 mg PO Q6H pain 7 days #28 tabs 04/11/25 cephalexin 500 mg capsule 500 mg PO BID #10 caps 04/14/25 tizanidine 2 mg capsule 2 mg PO TID PRN muscle spasticity 11/22/25 #20 caps Allergies Allergy/AdvReac Type Severity Reaction Status Date / Time morphine Allergy Severe RESPIRATORY Verified 02/20/25 11:06 DISTRESS doxycycline Allergy Mild THROAT Verified 02/20/25 11:06 SWELLING duloxetine (From Cymbalta) Allergy Mild SWELLING, Verified 02/20/25 11:06 VOMITING metformin Allergy Mild THROAT Verified 02/20/25 11:06 SWELLING oxybutynin (From Oxytrol) Allergy Mild ALGY-Rash Verified 02/20/25 11:06 Penicillins Allergy Mild ALGY-Rash Verified 02/20/25 11:06 Sulfa (Sulfonamide Allergy Mild STOMACH Verified 02/20/25 11:06 Antibiotics) CRAMPS alprazolam (From Xanax) Allergy Unknown Unknown Verified 02/20/25 11:06 amitriptyline Allergy Unknown Unknown Verified 02/20/25 11:06 Barbiturates Allergy Unknown stomach Verified 02/20/25 11:06 cramps cefuroxime (From Ceftin) Allergy Unknown stomach Verified 02/20/25 11:06 cramps insulin detemir (From Allergy Unknown Unknown Verified 02/20/25 11:06 Levemir U-100 Insulin) levofloxacin (From Levaquin) Allergy Unknown Unknown Verified 02/20/25 11:06 liraglutide (From Victoza) Allergy Unknown Unknown Verified 02/20/25 11:06 metoclopramide (From Reglan) Allergy Unknown Unknown Verified 02/20/25 11:06 nitrofurantoin (From Allergy Unknown Unknown Verified 02/20/25 11:06 Macrobid) pregabalin (From Lyrica) Allergy Unknown Unknown Verified 02/20/25 11:06 divalproex sodium (From Allergy ALGY-Hives Verified 02/20/25 11:06 Depakote) gabapentin Allergy bone, Verified 02/20/25 11:06 muscle pain and mood swings hydrocodone Allergy ALGY-Hives Verified 02/20/25 11:06 venlafaxine Allergy Unknown Verified 02/20/25 11:06 meloxicam AdvReac Severe ADR-Vomitin Verified 02/20/25 11:06 g ciprofloxacin (From Cipro) AdvReac Mild stomach Verified 02/20/25 11:06 upset hydromorphone (From Dilaudid) AdvReac Unknown PT STATES Verified 02/20/25 11:06 IT MAKES ME CRAZY Review of Systems General: Reports: 10 or more systems reviewed and unremarkable except in HPI and below Const: Reports: fatigue Card: Reports: chest pain Resp: Reports: non-productive cough Musc: Reports: extremity pain and extremity swelling PFS ED PFSH: Medical History (Updated 04/14/25 @ 00:09 by Rufino Berrios DO) Low serum cortisol level Bacteremia due to Klebsiella pneumoniae Chronic use of steroids C. 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 Left axis deviation. Normal MN and QRS duration. Dyslipidemia (high LDL; low HDL) Benign essential hypertension with target blood pressure below 140/90 Atherosclerotic heart disease of ute coronary artery without angina pectoris Status post left heart catheterization Recurrent UTI Gross hematuria Bipolar II disorder Surgical History Hx of bilateral hip replacements Hx of bladder repair surgery History of colonoscopy (~2018) History of coronary artery stent placement History of right knee surgery S/P appendectomy S/P hysterectomy S/P hernia repair S/P hip replacement Family History Family/Other Diabetes Other Cancer Social History Smoking and tobacco/nicotine status: former use of tobacco/nicotine Alcohol intake: never Substance/Drug Use: never Household members: spouse Marital status: Current occupational status: retired Physical Exam Narrative: EXAM NARRATIVE: Patient chronically ill-appearing but nontoxic, no acute distress, vital stable on arrival, afebrile. Lower extremities with mild amount of erythema, warmth, skin peeling to her bilateral lower extremities, mild tenderness to the touch, no open lesions, no drainage. Neurovascularly intact, compartments soft lower extremities. Breathing comfortably, saturating well on room air, able to speak in full sentences without getting short of breath. Normal sinus rhythm, no murmurs, 2+ pulses throughout, good cap refill. Abdomen soft, nontender, nondistended. No reproducible chest wall tenderness. GCS 15. Course Vital Signs: Vital signs: Vital Signs Temperature 98.1 F 04/13/25 20:41 Pulse Rate 95 04/14/25 00:30 Respiratory Rate 20 H 04/14/25 00:30 Blood Pressure 135/50 04/14/25 00:30 Pulse Oximetry 95 04/14/25 00:30 Oxygen Delivery Me thod Room Air 04/13/25 21:05 MDM - Extremity (Nontraumatic) Medical Decision Making -ddx: Muscle cramps, electrolyte abnormality, rhabdo, myositis, GERD, reflux, gastritis, ACS, dysrhythmia, URI, pneumonia - Patient with mild acute on chronic pain to her lower extremities throughout and not 1 specific spot, no recent trauma, no recent infectious-like symptoms, states she has they appear to be at baseline for her with the redness, tenderness and skin peeling. She also had a brief episode of chest pain that resolved prior to arrival with antacids and shortly occurred after eating, she does have a history of PCI with 3 cardiac stents. Will give oral Valium for her cramps, x-rays of her legs and chest, cardiac and infectious workup to assess the above complaints and reassess accordingly. -labs with troponins mildly elevated but no delta, no ischemic changes on EKG. ESR and CRP mildly elevated, could be mix of a chronic cellulitis to her legs and a UA+. her cramps were improved with valium, negative CK and was comfortable with dc home with abx for her UTI amd tizanidine for her muscle cramps, dc'd in stable condition, with fu with PCP advised in a few days for reevaluation, strict return precautions given, at bedside and agreeable with POC. Lab Data 04/13/25 20:30 04/13/25 20:30 Radiology Impressions Chest X-Ray 04/13/25 21:00 IMPRESSION: No acute cardiopulmonary disease. Tibia/Fibula X-Ray 04/13/25 21:00 IMPRESSION: Diffuse soft tissue swelling/edema without evidence of underlying osseous pathology. Laboratory Results WBC 7.97 10^3/uL (3.29-11.43) 04/13/25 20:30 RBC 4.28 10^6/uL (3.85-5.65) 04/13/25 20:30 Hgb 12.30 g/dL (11.27-16.99) 04/13/25 20: Hct 37.7 % (36-47) 04/13/25 20: MCV 88.1 fl (85-98) 04/13/25 20: MCH 28.7 pg (27-33) 04/13/25 20: MCHC 32.6 g/dL (30-55) 04/13/25: RDW 13.5 % (12.1-15.1) 04/13/25: Plt Count 202 10^3/cmm (157-399) 04/13/25: MPV 11.3 fL (7.4-10.4) H 04/13/25: Neut % (Auto) 43.3 % 04/13/25: Lymph % (Auto) 40.0 % 04/13/25: [place] % (Auto) 11.2 % 04/13/25: Eos % (Auto) 4.1 % 04/13/25 Baso % (Auto) 0.8 % 04/13/25: Neut # (Auto) 3.45 10^3/uL (1.8-7.7) 04/13/25: Lymph # (Auto) 3.2 10^3/uL (0.8-4.8) 04/13/25 20: [place] # (Auto) 0.9 10^3/uL (0.2-0.9) 04/13/25: Eos # (Auto) 0.3 10^3/uL (0.0-0.8) 04/13/25: Baso # (Auto) 0.1 10^3/uL (0.0-0.1) 04/13/25: Nucleated RBC % (auto) 0 % 04/13/25 Nucleated RBCs # 0.0 /100WBC 04/13/25: ESR 28 mm/hr (0-15) H 04/13/25 20:30 Sodium 134 mmol/L (136-145) L 04/13/25 20: Potassium 5.2 mmol/L (3.5-5.1) H 04/13/25: Chloride 97 mmol/L (98-107) L 04/13/25 20: Carbon Dioxide 24 mmol/L (22-29) 04/13/25 20: Anion Gap 18.2 (5-19) 04/13/25 20: BUN 23 mg/dL (8-23) 04/13/25 20: Creatinine 0.9 mg/dL (0.5-0.9) 04/13/25 20: GFR Calculation Not Reportable 04/13/25: Glucose 366 mg/dL (65-115) H 04/13/25 20:30 Calculated Osmolality 297 mOsm/kg (285-295) H 04/13/25 20: Calcium 9.8 mg/dL (8.5-10.5) 04/13/25 20: Phosphorus 2.7 mg/dL (2.5-4.5) 04/13/25 20: Magnesium 1.9 mg/dL (1.7-2.3) 04/13/25 20: Total Bilirubin 0.4 mg/dL (0.15-1.2) 04/13/25 20: AST 28 U/L (0-32) 04/13/25 20: ALT 25 U/L (0-33) 04/13/25 20: Alkaline Phosphatase 160 U/L (35-105) H 04/13/25 20: Creatine Kinase 29 U/L (26-192) 04/13/25 20:30 Troponin T Baseline 21 ng/L (0-10) H 04/13/25 20: Troponin T 120 Minute 21.57 ng/L (0-10) H 04/13/25 22:21 Delta Troponin T 0.57 ABS# (0-10) 04/13/25 22:21 C-Reactive Protein 7.6 mg/L (0.0-4.9) H 04/13/25 20: NT-Pro-B Natriuret Pep 74 pg/mL (0-450) 04/13/25 20: Total Protein 7.1 g/dL (6.6-8.7) 04/13/25 20: Albumin 3.6 g/dL (3.5-5.2) 04/13/25 20: Globulin 3.5 g/dL (1.3-4.6) 04/13/25 20:30 Lipase 14 U/L (13-60) 04/13/25 20:30 Urine Color Yellow (Yellow) 04/13/25 23:16 Urine Appearance Clear (CLEAR) 04/13/25 23:16 Urine pH 5.5 (5-7) 04/13/25 23:16 Ur Specific [place] 1.027 (1.005-1.030) 04/13/25 23:16 Urine Protein Trace (Negative) A 04/13/25 23:16 Urine Glucose (UA) 3+ (Normal) H 04/13/25 23:16 Urine Ketones Trace (Negative) 04/13/25 23:16 Urine Blood Negative (Negative) 04/13/25 23:16 Urine Nitrate Negative (Negative) 04/13/25 23:16 Urine Bilirubin Negative (Negative) 04/13/25 23:16 Urine Urobilinogen 0.2 mg/dL (Negative) 04/13/25 23:16 Ur Leukocyte Esterase Trace (Negative) A 04/13/25 23:16 Urine RBC 0-2 /hpf (0-2) 04/13/25 23:16 Urine WBC 21-50 /hpf (0-5) H 04/13/25 23:16 Ur Squamous Epith Cells 0-5 /hpf (0-5) 04/13/25 23:16 Amorphous Sediment Not Reportable 04/13/25 23:16 Urine Bacteria None seen /hpf (NONE) 04/13/25 23:16 Hyaline Casts 0.81 /lpf 04/13/25 23:16 All radiology interpretation(s) finalized by discharge Discharge Plan Discharge Patient Disposition: Home Clinical Impression: Bilateral leg cramps, Acute UTI Condition: Stable Prescriptions: New cephalexin 500 mg capsule 500 mg PO BID Qty: 10 0RF tizanidine 2 mg capsule 2 mg PO TID PRN (Reason: muscle spasticity) Qty: 20 0RF No Action cholecalciferol (vitamin D3) 1,000 unit capsule 1,000 unit PO QPM cranberry 500 mg capsule 500 mg PO QPM magnesium oxide 400 mg (241.3 mg magnesium) tablet 500 mg PO DAILY@12 (DME) hinged knee brace left See Rx Instructions .Route .MEDSUPPLY Qty: 1 0RF Rx Instructions: As directed diclofenac sodium 1 % gel 4 g topical QID Qty: 100 3RF Rx Instructions: apply to single knee, ankle, foot; for foot includes sole/toes/top of foot insulin lispro 100 unit/mL insulin pen See Rx Instructions .ROUTE .COMPLEX Qty: 45 1RF Dose Instruction: INJECT 28 UNITS UNDER THE SKIN THREE TIMES DAILY AFTER MEALS, BASED ON SLIDING SCALE Rx Instructions: INJECT 38 UNITS UNDER THE SKIN THREE TIMES DAILY AFTER MEALS, BASED ON SLIDING SCALE potassium chloride 8 mEq capsule, extended release 24 meq PO QAM (DME) FreeStyle Tor 2 Sensor Kit See Rx Instructions .MEDSUPPLY Qty: 3 3RF Rx Instructions: As directed (DME) FreeStyle Tor 2 [place] Misc See Rx Instructions .Route Qty: 1 0RF Rx Instructions: As directed esomeprazole magnesium 40 mg capsule,delayed release(DR/EC) 40 mg PO QAM melatonin 3 mg capsule 3 mg PO BEDTIME hydrocortisone 10 mg tablet 10 mg PO QID 90 Days Qty: 360 1RF (DME) blood sugar diagnostic Strip See Rx Instructions .Route Qty: 400 3RF Rx Instructions: Check blood sugar 4 times a day. (DME) lancets [Comfort EZ Lancets] 21 gauge misc See Rx Instructions .Route Qty: 400 3RF Rx Instructions: As directed (DME) Easymax 15 test strips Strip See Rx Instructions .Route Qty: 400 3RF Rx Instructions: Check BS 4 times a day. nitroglycerin 0.4 mg tablet, sublingual 0.4 mg sublingual Q5M PRN (Reason: chest pain) 30 Days Qty: 30 3RF Rx Instructions: until response; do not exceed 3 doses per episode (DME) dhaval LT knee Brace See Rx Instructions .Route .MEDSUPPLY Qty: 1 0RF Rx Instructions: As directed aripiprazole 2 mg tablet See Rx Instructions .ROUTE .COMPLEX Qty: 30 2RF Dose Instruction: TAKE 1 TABLET BY MOUTH AT BEDTIME Rx Instructions: TAKE 1 TABLET BY MOUTH AT BEDTIME isosorbide mononitrate 120 mg tablet extended release 24 hr 120 mg PO DAILY@12 Qty: 90 3RF Rx Instructions: NEEDS APPT FOR FURTHER REFILLS trimethoprim 100 mg tablet 100 mg PO Q12H 10 Days Qty: 20 0RF (DME) pen needle, diabetic 31 gauge x 3/16 needle See Rx Instructions .ROUTE .COMPLEX Qty: 400 0RF Dose Instruction: USE WITH INSULIN FOUR TIMES DAILY Rx Instructions: USE WITH INSULIN FOUR TIMES DAILY carvedilol 3.125 mg tablet See Rx Instructions .ROUTE .COMPLEX Qty: 180 3RF Dose Instruction: TAKE 1 TABLET BY MOUTH TWICE DAILY MUST GIVE WITH A MEAL OR FOOD Rx Instructions: TAKE 1 TABLET BY MOUTH TWICE DAILY MUST GIVE WITH A MEAL OR FOOD insulin degludec [Tresiba FlexTouch U-200] 200 unit/mL (3 mL) insulin pen 25 unit SUBCUT BID Qty: 9 3RF oxycodone 10 mg tablet 10 mg PO Q6H 7 Days Qty: 28 0RF vitamin E 1,000 unit Capsule 1,000 unit PO QAM ascorbic acid (vitamin C) [Vitamin C] 500 mg Tablet,Chewable 500 mg PO QNOON lactulose 10 gram/15 mL solution 15 ml PO DAILY PRN (Reason: Constipation) sodium chloride 1,000 mg tablet,soluble 1,000 mg PO DAILY Qty: 30 0RF torsemide 20 mg tablet 20 mg PO BID amlodipine 10 mg tablet 10 mg PO DAILY valsartan 320 mg tablet 320 mg PO QPM Discharge Orders: Discharge ED (Routine); Ordered 04/14/25 Ordered By: Rufino Berrios Referrals: Arabella Orta MD [Primary Care Provider, Family Practice] Patient Instructions: Opioid Safety, Pain Management, Patient Portal & Jeni Instructions Activity Restrictions/Additional Instructions: Were seen for your leg cramps, urinary symptoms and chest pain, your evaluated with labs, x-rays and an EKG which were ultimately reassuring. You were found to have a urinary tract infection, for this, take the Keflex 500 mg twice a day for total of 5 days. For your muscle spasms, use the tizanidine 2 mg every 8 hours as needed for spasms. Follow-up with your primary care physician early next week for reevaluation of your infection and overall symptoms. Return to the ED with severe worsening of the cramps, fevers, inability to eat or drink, severe abdominal pain, any other emergent concerns. 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
[2025-04-13 22:56] LABS: Troponin 5 2HR 21.57 ng/L (0-10); Troponin 5 2HR Delta 0.57 ABS# (0-10)
--- NOTE | 2025-04-13 23:00 | ECG_ITS ---
[facility]: [facility]25[facility]13 Pat Name: Brandi Berg Department: Room: Gender: Female Rod Puller: : 1945 Requested By: Rufino Berrios Order Number: [id number] Gamal MD: Gilma Cai M.D. Measurements Intervals [place] Rate: 94 P: 26 VA: 147 QRS: -35 QRSD: 86 T: 56 QT: 332 QTc: 415 Interpretive Statements SINUS RHYTHM LEFT AXIS DEVIATION [QRS AXIS < -30] Compared to ECG 12/01/2024 11:40:15 Left-axis deviation now present T-wave abnormality no longer present Electronically Signed On 04-14-2025 14:18:16 [employer] by Gilma Cai M.D. [email or web address]
[2025-04-13 23:06] VITALS: BP 121/58; PULSE 95; RESP 16; O2SAT 95
[2025-04-13 23:33] LABS: Glucose Urine UA 3+ (Normal); Nitrate Urine Negative (Negative); Specific Gravity, Urine 1.027 (1.005-1.030)
[2025-04-13 23:38] LABS: Add Urine Microscopic? YES
[2025-04-14 00:30] VITALS: BP 135/50; PULSE 95; RESP 20; O2SAT 95
== END 2025-04-14 00:34 | disposition home or self-care (01) ==
PROVIDERS: Emergency Provider Student in an Organized Health Care Education/Training Program; PCP Family Medicine
DX: R25.2 Cramp and spasm (principal); N39.0 Urinary tract infection, site not specified; Z79.4 Long term (current) use of insulin; Z87.891 Personal history of nicotine dependence; I25.10 Atherosclerotic heart disease of native coronary artery without angina pectoris; E78.5 Hyperlipidemia, unspecified; I11.0 Hypertensive heart disease with heart failure; I50.9 Heart failure, unspecified
CPT/HCPCS: 36415; 71045; 73590; 80053; 81001; 82550; 83690; 83735; 83880; 84100; 84484; 85025; 85651; 86140; 93005; 99285; J9999

== ENCOUNTER → 2025-05-15 12:54 | Outpatient (BNVA) | payer MEDICARE, OTHER, SELFPAY | PROVIDERS: PCP Family Medicine; Visit Provider Orthopaedic Surgery | DX: S82.032D Displaced transverse fracture of left patella, subsequent encounter for closed fracture with routine healing (principal); X58.XXXD Exposure to other specified factors, subsequent encounter | CPT/HCPCS: 73562 ==

== ENCOUNTER 2025-05-15 14:28 | Outpatient (CLI) | payer MEDICARE, OTHER, SELFPAY ==
[2025-05-15 15:36] LABS: Alanine Aminotransferase 24 U/L (0-33); Albumin Level 3.9 g/dL (3.5-5.2); Alkaline Phosphatase 157 U/L (35-105); Anion Gap 14.3 (5-19); Aspartate Amino Transferase 29 U/L (0-32); Blood Urea Nitrogen 16 mg/dL (8-23); Calcium 10.2 mg/dL (8.5-10.5); Carbon Dioxide 25 mmol/L (22-29); Chloride 99 mmol/L (98-107); Cholesterol 173 mg/dL (0-200); Globulin 3.2 g/dL (1.3-4.6); Glucose 267 mg/dL (65-115); HDL Cholesterol 40 mg/dL (60-100); Osmolality Calculated 289 mOsm/kg (285-295); Potassium 4.3 mmol/L (3.5-5.1); Sodium 134 mmol/L (136-145); Total Protein 7.1 g/dL (6.6-8.7); Triglycerides 197 mg/dL (0-150)
[2025-05-15 15:45] LABS: Creatinine Urine, Random 64 mg/dL (28-217)
[2025-05-15 15:49] LABS: Microalbum Creatinine Ratio Ur 63 mg/dL (0-20)
[2025-05-15 16:16] LABS: Estmated Average Glucose 272; Hemoglobin A1C 11.1 % (4.0-6.0)
== END 2025-05-15 14:29 | disposition home or self-care (01) ==
PROVIDERS: PCP Family Medicine; Visit Provider Internal Medicine
DX: E11.649 Type 2 diabetes mellitus with hypoglycemia without coma (principal); I10 Essential (primary) hypertension; E11.42 Type 2 diabetes mellitus with diabetic polyneuropathy; S82.032D Displaced transverse fracture of left patella, subsequent encounter for closed fracture with routine healing; L60.3 Nail dystrophy; X58.XXXD Exposure to other specified factors, subsequent encounter; I73.9 Peripheral vascular disease, unspecified; Z79.4 Long term (current) use of insulin
CPT/HCPCS: 11721; 80053; 80061; 82044; 83036; 99213

== ENCOUNTER → 2025-05-23 11:38 | Outpatient (BNVA) | payer MEDICARE, OTHER, SELFPAY | PROVIDERS: PCP Family Medicine; Visit Provider Internal Medicine Endocrinology, Diabetes & Metabolism | DX: E11.9 Type 2 diabetes mellitus without complications (principal); K11.7 Disturbances of salivary secretion; E86.0 Dehydration; E78.5 Hyperlipidemia, unspecified; R79.89 Other specified abnormal findings of blood chemistry | CPT/HCPCS: 99214 ==